=== PATIENT | male | born 1955 | race Caucasian/White ===

== ENCOUNTER 2019-07-17 13:20 | Outpatient (REF) | payer MEDICAID, SELFPAY ==
[2019-07-17 19:01] LABS: Mean Corp. HGB Concentration 34.1 g/dL (32.0-36.0); Mean Corpuscular Hemoglobin 31.3 pg (27.0-33.0); Mean Corpuscular Volume 91.7 fL (80-95); Mean Platelet Volume 12.1 fL (8.0-11.0); Platelet Count 198 x1000/uL (130-400); RBC 4.47 m/cumm (4.50-6.00); RBC Distribution Width 13.8 % (11.8-14.1); White Blood Cell Count 6.49 k/cumm (4.4-10.8)
[2019-07-17 19:01] LABS: COMMENT (LAB VIEW ONLY) 101.12 mg/dL; COMMENT (LAB VIEW ONLY) 104.08 mg/dL; Microalb ug/mg Crea 5.6 ug/mg Cr; Prot/Crea Ur Ratio 0.05
[2019-07-17 19:18] LABS: Anion Gap 8.7 mmol/L (3-11); BUN 15 mg/dL (7-18); CO2 29.3 mmol/L (21.0-32.0); CREATININE 1.16 mg/dL (0.70-1.30); Chloride 104 mmol/L (98-107); Glucose 103 mg/dL (74-106); Magnesium 1.7 mg/dL (1.8-2.4); NT-proBNP 1688 pg/mL (<300); Potassium 4.1 mmol/L (3.5-5.1); Sodium 142 mmol/L (136-145)
== END 2019-07-17 13:40 ==
LOC: NCHCN 13:20
PROVIDERS: PCP Nurse Practitioner Family; Visit Provider Nurse Practitioner Family
DX: E11.9 Type 2 diabetes mellitus without complications (principal); I10 Essential (primary) hypertension
CPT/HCPCS: 80048; 85027; 82043; 82565; 82570; 83735; 83880; 84156

== ENCOUNTER 2019-07-21 19:12 | Outpatient (REF) | payer MEDICAID, SELFPAY ==
[2019-07-21 19:11] LABS: Anion Gap 7.6 mmol/L (3-11); BUN 18 mg/dL (7-18); CO2 28.4 mmol/L (21.0-32.0); CREATININE 1.09 mg/dL (0.70-1.30); Calcium 8.3 mg/dL (8.5-10.1); Chloride 101 mmol/L (98-107); Glucose 136 mg/dL (74-106); Potassium 4.4 mmol/L (3.5-5.1); Sodium 137 mmol/L (136-145)
== END 2019-07-21 19:32 ==
LOC: NCHCN 19:12
PROVIDERS: PCP Nurse Practitioner Family; Visit Provider Nurse Practitioner Family
DX: I10 Essential (primary) hypertension (principal)
CPT/HCPCS: 80048

== ENCOUNTER 2019-08-23 10:46 | Inpatient (IN) | payer MEDICAID, SELFPAY ==
[2019-08-23] VITALS (43 sets, daily range): BP systolic 121–166; BP diastolic 63–118; PULSE 68–85; RESP 4–28; TEMP 35.8–37.6; O2SAT 90–100
--- NOTE | 2019-08-23 11:00 | DI.RAD_ITS ---
EXAM: XR PORTABLE CHEST AP INDICATION: SOB, cough, CHF. COMPARISON: No exams were available for comparison TECHNIQUE: 2D digital imaging was performed. FINDINGS: The heart is enlarged. The lung bases are not well penetrated, particularly the left. Leads overlie the chest. Oxygen tubing is seen. The appear grossly clear. No infiltrate, effusion or pulmonary edema. IMPRESSION: Cardiomegaly. There is limited visualization of the left lower lobe. There is no evidence of CHF. DATA REPOSITORY: RADIATION DOSE DELIVERED:
[2019-08-23] MEDS: Furosemide 20 MG/2 ML VIAL IVP (11:10)
[2019-08-23] MEDS: methylPREDNISolone SUCC 125 MG VIAL IVP (11:15)
[2019-08-23 11:27] LABS: Abs Immature Grans 0.01 k/cumm (0.0-0.09); HCT 45.6 % (40.0-50.0); HGB 15.7 g/dL (13.5-17.5); Mean Corp. HGB Concentration 34.4 g/dL (32.0-36.0); Mean Corpuscular Hemoglobin 31.2 pg (27.0-33.0); Mean Corpuscular Volume 90.7 fL (80-95); Mean Platelet Volume 11.1 fL (8.0-11.0); Platelet Count 175 x1000/uL (130-400); RBC 5.03 m/cumm (4.50-6.00); RBC Distribution Width 12.9 % (11.8-14.1); White Blood Cell Count 5.24 k/cumm (4.4-10.8)
[2019-08-23] MEDS: Albuterol/Ipratropium 3 ML UPD VIAL 9 ML UPD (11:28)
[2019-08-23 11:41] LABS: Absolute Basophil Count 0.05 k/cumm (0.0-0.2); Absolute Eosinophil Count 0.37 k/cumm (0.0-0.7); Absolute Lymphocyte Count 1.21 k/cumm (1.2-3.4); Absolute Monocyte Count 0.58 k/cumm (0.11-0.7); Absolute Neutrophil Count 3.04 k/cumm (1.2-6.7); Atypical Lymphocytes % 6; PTT Activated 28.1 sec (21.0-31.4); Prothrombin Time 10.3 sec (9.3-11.0)
[2019-08-23 11:42] LABS: Diff Comment Manual Differential; RBC Morphology Normal
--- NOTE | 2019-08-23 11:44 | W.ED.GENAD ---
Discharge Plan Disposition Patient Disposition: [facility] INPATIENT Condition: Improving Discharge Details Chief Complaint: SOB Clinical Impression: CHF exacerbation, Asthma exacerbation in COPD, Acute dyspnea Primary Care Provider: Sae Ryan ED Provider: Liborio Perez Home Meds and New Rx's Prescriptions: No Action pioglitazone 15 mg Tablet 15 mg PO DAILY RF: 0 carvedilol 25 mg Tablet 25 mg PO BID RF: 0 gabapentin 600 mg Tablet 1,200 mg PO TID RF: 0 azithromycin 250 mg Tablet 250 mg PO DAILY RF: 0 glipizide 10 mg Tablet Extended Release 24hr 20 mg PO DAILY RF: 0 olanzapine 10 mg Tablet 15 mg PO QHS RF: 0 triamcinolone acetonide 0.1 % Cream 1 applic TOPICAL TID PRNRF: 0 simvastatin 40 mg Tablet 40 mg PO DAILY RF: 0 indomethacin 50 mg Capsule 50 mg PO BID RF: 0 nitroglycerin [Nitrostat] 0.4 mg Tablet, Sublingual 0.4 mg SUBLINGUAL Q5M PRNRF: 0 betamethasone dipropionate 0.05 % Cream 1 applic TOPICAL DAILY PRNRF: 0 furosemide 20 mg Tablet 20 mg PO DAILY RF: 0 albuterol sulfate [ProAir HFA] 90 mcg/actuation Hfa Aerosol Inhaler 2 puff INHALATION QID PRNRF: 0 ketoconazole 2 % Cream 1 applic TOPICAL BID RF: 0 amoxicillin-pot clavulanate 875-125 mg Tablet 1 tab PO BID RF: 0 Narcan 4 mg/actuation [place],Non-Aerosol 4 mg INTRANASAL Q2-3M PRNRF: 0 Medical Decision Making This is a 63-year-old male who is a notably poor historian with a past medical history of congestive heart failure, high cholesterol, diabetes, who denies any history of COPD or heart attack. Who presents today for evaluation of shortness of breath. No additional previous medical records are currently available at this time on the patient. Patient states that 1 week ago he had a cough mild shortness of breath, he was started on an antibiotic by his PCP Sae Ryan. Since then he states that he has been doing worse, he has had occasional fever and chills. He denies vomiting diarrhea chest pain numbness tingling or weakness. He does feel notably short of breath. He is not normally on oxygen. He presents today with notable shortness of breath, oxygen in the high 80s to low 90s. He does state that he has congestive heart failure and states that this feels similar to this. Patient otherwise has no additional components to add to the HPI. Exam demonstrates wheezes, in conjunction with mild crackles. Bedside ultrasound demonstrates a notably reduced ejection fraction, roughly estimated at around 25 to 35%, trace pericardial effusion is present, no evidence of tamponade. B-lines are present in the bases. Differential is highest for CHF exacerbation, we will gently diurese, start the patient on BiPAP due to his low oxygenation, and work of breathing. Will evaluate for additional cardiac or infectious etiology and reassess. 12:08 PM We have received records from outpatient clinic, patient was given Augmentin and azithromycin at that time which she has been taking. He has had no significant improvement. 1 PM Formal x-ray results from radiology demonstrate no evidence of infiltrate or edema, however with the ultrasound findings, my interpretation I do feel that there is mild interstitial congestion, especially with the patient's associated symptomatology. After trial of BiPAP the patient had a notable improvement, we are now weaning him down back to nasal cannula. Breathing treatments were given which also significantly helped his symptoms. Lasix was given for mild diuresis. This time I feel the patient signs and symptoms are clinically consistent with mild CHF exacerbation, in conjunction with mild COPD. I do feel the patient stable for admission to the floor. 1:30 PM Discussed the case with the hospitalist , he agrees with the assessment and plan. I have extensively reviewed the treatment plan with the patient. I have addressed all patient concerns at this time. I have also discussed the plan with the admitting physician and they agree with the current assessment and plan and have agreed to assume responsibility for the patient. All parties demonstrate verbal understanding and agreement with our assessment and plan at this time. EKG 10: 58 Rate 74, intervals normal, except for slightly prolonged AR 214, sinus rhythm, no significant ST elevations or depressions, no evidence of STEMI. IMPRESSION: Cardiomegaly. There is limited visualization of the left lower lobe. There is no evidence of CHF. HPI General Date/Time Provider Initiated Documentation: 08/23/19 10:48. HPI Narrative: This is a 63-year-old male who is a notably poor historian with a past medical history of congestive heart failure, high cholesterol, diabetes, who denies any history of COPD or heart attack. Who presents today for evaluation of shortness of breath. No additional previous medical records are currently available at this time on the patient. Patient states that 1 week ago he had a cough mild shortness of breath, he was started on an antibiotic by his PCP Sae Ryan. Since then he states that he has been doing worse, he has had occasional fever and chills. He denies vomiting diarrhea chest pain numbness tingling or weakness. He does feel notably short of breath. He is not normally on oxygen. He presents today with notable shortness of breath, oxygen in the high 80s to low 90s. He does state that he has congestive heart failure and states that this feels similar to this. Patient otherwise has no additional components to add to the HPI. Related Data Home Medications Medication Instructions Recorded Confirmed albuterol sulfate [ProAir HFA] 2 puff INHALATION QID PRN 08/23/19 08/23/19 amoxicillin-pot clavulanate 1 tab PO BID 08/23/19 08/23/19 azithromycin 250 mg PO DAILY 08/23/19 08/23/19 betamethasone dipropionate 1 applic TOPICAL DAILY PRN 08/23/19 08/23/19 carvedilol 25 mg PO BID 08/23/19 08/23/19 furosemide 20 mg PO DAILY 08/23/19 08/23/19 gabapentin 1,200 mg PO TID 08/23/19 08/23/19 glipizide 20 mg PO DAILY 08/23/19 08/23/19 indomethacin 50 mg PO BID 08/23/19 08/23/19 ketoconazole 1 applic TOPICAL BID 08/23/19 08/23/19 naloxone [Narcan] 4 mg INTRANASAL Q2-3M PRN 08/23/19 08/23/19 nitroglycerin [Nitrostat] 0.4 mg SUBLINGUAL Q5M PRN 08/23/19 08/23/19 olanzapine 15 mg PO QHS 08/23/19 08/23/19 pioglitazone 15 mg PO DAILY 08/23/19 08/23/19 simvastatin 40 mg PO DAILY 08/23/19 08/23/19 triamcinolone acetonide 1 applic TOPICAL TID PRN 08/23/19 08/23/19 Allergies Allergy/AdvReac Type Severity Reaction Status Date / Time No Known Allergies Allergy Unverified 02/26/20 11:03 General Stated Complaint: SOB [place]: 2 Review of Systems All systems reviewed & are unremarkable except as noted in HPI and below PFSH Social History Smoking/Tobacco Use Status: Never Alcohol Intake: never Drug use: Never Substance use type: does not use Do you feel safe at home: Yes Do you feel safe in your relationship?: Yes Exam Narrative Exam Narrative: 1.Const: Well-nourished, Well-developed, appearing stated age 2.Eyes: PERRL, no conjunctival injection, and symmetrical lids. 3.ENT: Atraumatic external nose and ears. Moist MM. Neck: Symmetric, trachea midline, No thyromegaly. 4.CVS: +S1/S2, No murmurs or gallops. Peripheral pulses 2+ and equal in all extremities. Brisk capillary refill in all extremities. 5.RESP: Labored respiratory rate, coarse breath sounds throughout, mild wheezes in the bases. Mild rhonchi. Minimal crackles in the bases. 6.GI: Soft, Nontender/Nondistended, No hepatosplenomegaly. No guarding or rebound. 7.MSK: Normocephalic/Atraumatic, Extremities w/o deformity or ttp No cyanosis or clubbing, Normal movement of all extremities, no significant pitting edema in the lower extremities. No calf tenderness. 8.Skin: Warm, Dry. No rashes or lesions. 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 Sensation grossly intact, no focal neurologic deficits. 10.Psych: (AAO) x3. Appropriate mood and affect Course Vital Signs Vital signs: Vital Signs Temperature 36.8 C 08/23/19 10:58 Pulse 74 08/23/19 10:58 Respiratory Rate 28 H 08/23/19 10:58 Blood Pressure 121/63 08/23/19 10:58 Pulse Oximetry 90 L 08/23/19 10:58 Temperature 36.8 C 08/23/19 10:58 Temperature Source Oral 08/23/19 10:58 Pulse 71 08/23/19 11:42 Pulse 71 08/23/19 11:40 Respiratory Rate 25 H 08/23/19 11:42 Respiratory Effort Labored 08/23/19 11:39 Blood Pressure 166/97 H 08/23/19 11:30 Blood Pressure Mean 112 08/23/19 11:30 Blood Pressure Position Sitting 08/23/19 10:58 Pulse Oximetry 99 08/23/19 11:42 Oxygen Delivery Method Bi-pap 08/23/19 11:28 Oxygen Flow Rate 0 08/23/19 10:58 Fraction of Inspired Oxygen (FIO2) 30 08/23/19 11:42 Pain Level 0 08/23/19 10:58 Lab/Test Results Lab/Test Results: 08/23/19 11:29 Nasopharynx Influenza Types A,B Antigen - Pending 08/23/19 11:10 Blood Blood Culture - Pending 08/23/19 11:10 Blood Blood Culture - Pending Laboratory Tests Range/Units 08/23/19 11:10 WBC (4.4-10.8) k/cumm 5.24 RBC (4.50-6.00) m/cumm 5.03 Hgb (13.5-17.5) g/dL 15.7 Hct (40.0-50.0) % 45.6 MCV (80-95) fL 90.7 MCH (27.0-33.0) pg 31.2 MCHC (32.0-36.0) g/dL 34.4 RDW (11.8-14.1) % 12.9 Plt Count (130-400) x1000/uL 175 MPV (8.0-11.0) fL 11.1 H Immature Gran % % 0.0 Neutrophils % 58.0 Lymphocytes % 17.0 Atypical Lymphs % 6 Monocytes % 11.0 Eosinophils % 7.0 Basophils % 1.0 Absolute Neutrophils (1.2-6.7) k/cumm 3.04 Absolute Lymphocytes (1.2-3.4) k/cumm 1.21 Absolute Monocytes (0.11-0.7) k/cumm 0.58 Absolute Eosinophils (0.0-0.7) k/cumm 0.37 Absolute Basophils (0.0-0.2) k/cumm 0.05 Differential Comment Manual differential RBC Morphology Normal
[2019-08-23 11:52] LABS: ALT 30 U/L (16-63); AST 44 U/L (15-37); Albumin 4.4 g/dL (3.4-5.0); Alkaline Phosphatase 88 U/L (46-116); BUN 13 mg/dL (7-18); Bilirubin, Total 1.3 mg/dL (0.2-1.0); CREATININE 1.14 mg/dL (0.70-1.30); Calcium 9.1 mg/dL (8.5-10.1); Chloride 101 mmol/L (98-107); Glucose 123 mg/dL (74-106); NT-proBNP 3644 pg/mL (<300); Total Protein 8.2 g/dL (6.4-8.2)
[2019-08-23 11:59] LABS: Troponin I < 0.05 ng/Ml (<0.06)
[2019-08-23 12:04] LABS: Sodium 139 mmol/L (136-145)
[2019-08-23 14:27] LABS: Troponin I < 0.05 ng/Ml (<0.06)
--- NOTE | 2019-08-23 14:48 | HPE_ITS ---
Date of service: 08/23/19 Time of Service: 14:48 Assessment and Plan Assessment and plan (1) CHF exacerbation: Status: Acute Assessment and plan: admit to med/surg, on telemetry, has history of chf on lasix. last echo in january of 2017 shows ED of 30%, today POC echo in ED with estimated 25-35%, Will continue diureses with IV lasix. strict I&O, daily weight, recheck electrolytes and kidney functions in am, echo when available. will cycle serial troponins. He take coreg and lasix. he was previously on spironolactone but did not tolerate it d/t GI upset. will get cardiology consult. consider adding jaden I. (2) CAP (community acquired pneumonia): Status: Acute Assessment and plan: patient was started on zithromax and augmentin for empiric treatment for pneumonia, no evidence that respiratory symptoms are infectious, will hold antibiotics for now and continue to closely monitor respiratory status closely (3) Hypertension: Status: Chronic Assessment and plan: blood pressure controlled. will monitor and continue coreg. (4) High cholesterol: Status: Chronic Assessment and plan: continue statin, last LDL on record 61 while on statin therapy (5) Schizophrenia: Status: Chronic Assessment and plan: symptoms are stable on olanzapine, continue home medications. (6) Diabetes mellitus type 2 in obese: Status: Acute Assessment and plan: diabetic diet, continue home medications, check blood sugars ac/hs hold on sliding scale coverage as it can interact with pioglitazone and worsening fluid retention/symptoms of CHF. last A1C I can find was in 2019 at 8.2, will add to am labs. (7) DVT prophylaxis: Status: Acute Assessment and plan: enoxaparin daily (8) Discharge planning issues: Status: Acute Assessment and plan: patient hoping for discharge tomorrow. no services anticipated. History of Present Illness History of Present Illness Chief Complaint: shortness of breath Narrative: T his is a 63-year-old male who is a notably poor historian with a past medical history of congestive heart failure, high cholesterol, diabetes, who denies any history of COPD or heart attack. Who presents today for evaluation of shortness of breath. No additional previous medical records are currently available at this time on the patient. Patient states that 1 week ago he had a cough mild shortness of breath, he was started on an antibiotic by his PCP Sae Ryan. Since then he states that he has been doing worse, he has had occasional fever and chills. He denies vomiting diarrhea chest pain numbness tingling or weakness. He does feel notably short of breath. He is not normally on oxygen. He presents today with notable shortness of breath, oxygen in the high 80s to low 90s. He does state that he has congestive heart failure and states that this feels similar to this. Patient otherwise has no additional components to add to the HPI. Exam demonstrates wheezes, in conjunction with mild crackles. Bedside ultrasound demonstrates a notably reduced ejection fraction, roughly estimated at around 25 to 35%, trace pericardial effusion is present, no evidence of tamponade. B-lines are present in the bases. Differential is highest for CHF exacerbation, we will gently diurese, start the patient on BiPAP due to his low oxygenation, and work of breathing. Will evaluate for additional cardiac or infectious etiology and reassess. Review of Systems Constitutional Constitutional: Denies fever(s) ENT Ears, Nose, Mouth, and Throat: Denies vertigo and Denies dizziness Cardiovascular Cardiovascular: Denies chest pain, Denies syncope, Denies edema, Denies leg edema, Denies lightheadedness and Reports dyspnea Respiratory Respiratory: Denies cough, Reports dyspnea and Reports wheezing Gastrointestinal Gastrointestinal: Denies abdominal pain Musculoskeletal Musculoskeletal: Denies abnormal gait Neurologic Neurologic: Denies abnormal gait, Denies vertigo, Denies dizziness and Denies syncope Allergic/Immunologic Allergic/Immunologic: Reports wheezing [facility] Medical History (Updated 08/24/19 @ 11:26 by Dianne Pace NP) Depression (Chronic) Eczema (Acute) High cholesterol (Chronic) Panic attacks (Acute) Schizophrenia (Chronic) Surgical History (Updated 08/24/19 @ 11:26 by Dianne Pace NP) Hx of hernia repair (Chronic) Social History Smoking/Tobacco Use Status: Never Alcohol Intake: never Drug use: Never Substance use type: does not use Do you feel safe at home: Yes Do you feel safe in your relationship?: Yes Meds Home Medications and Allergies Home Medications Medication Instructions Recorded Confirmed Type albuterol sulfate [ProAir HFA] 2 puff INHALATION QID PRN 08/23/19 08/23/19 History amoxicillin-pot clavulanate 1 tab PO BID 08/23/19 08/23/19 History azithromycin 250 mg PO DAILY 08/23/19 08/23/19 History betamethasone dipropionate 1 applic TOPICAL DAILY PRN 08/23/19 08/23/19 History carvedilol 25 mg PO BID 08/23/19 08/23/19 History furosemide 20 mg PO DAILY 08/23/19 08/23/19 History gabapentin 1,200 mg PO TID 08/23/19 08/23/19 History glipizide 20 mg PO DAILY 08/23/19 08/23/19 History indomethacin 50 mg PO BID 08/23/19 08/23/19 History ketoconazole 1 applic TOPICAL BID 08/23/19 08/23/19 History naloxone [Narcan] 4 mg INTRANASAL Q2-3M PRN 08/23/19 08/23/19 History nitroglycerin [Nitrostat] 0.4 mg SUBLINGUAL Q5M PRN 08/23/19 08/23/19 History olanzapine 15 mg PO QHS 08/23/19 08/23/19 History pioglitazone 15 mg PO DAILY 08/23/19 08/23/19 History simvastatin 40 mg PO DAILY 08/23/19 08/23/19 History triamcinolone acetonide 1 applic TOPICAL TID PRN 08/23/19 08/23/19 History Allergies Allergy/AdvReac Type Severity Reaction Status Date / Time No Known Allergies Allergy Unverified 08/23/19 11:03 Exam Const General: cooperative, disheveled and ill appearing chronically Nutritional Appearance: obese Orientation: alert, awake and oriented x3 HENMT Head: normal to inspection, normocephalic and atraumatic Mouth: oral mucosae normal Resp Effort & Inspection: normal respiratory effort Auscultation: rales bilaterally at the base and wheezes scattered wheezes Cardio Rate: regular rate Rhythm: regular rhythm GI Inspection: normal to inspection Palpation: soft Auscultation: normal bowel sounds Skin General skin exam: no rashes or lesions noted Neuro General: alert, awake and oriented x3 Extrem General: normal to inspection, full ROM and no pedal edema Results Labs Result diagrams: 08/24/19 06:30 08/24/19 06:30 Labs: Laboratory Results - last 24 hr 08/23/19 08/23/19 08/23/19 11:10 11:10 11:10 WBC 5.24 RBC 5.03 Hgb 15.7 Hct 45.6 MCV 90.7 MCH 31.2 MCHC 34.4 RDW 12.9 Plt Count 175 MPV 11.1 H Immature Gran % 0.0 Neutrophils % 58.0 Lymphocytes % 17.0 Atypical Lymphs % 6 Monocytes % 11.0 Eosinophils % 7.0 Basophils % 1.0 Absolute Neutrophils 3.04 Absolute Lymphocytes 1.21 Absolute Monocytes 0.58 Absolute Eosinophils 0.37 Absolute Basophils 0.05 Differential Comment Manual differential RBC Morphology Normal PT 10.3 INR 1.0 APTT 28.1 Sodium 139 Potassium 4.4 Chloride 101 Carbon Dioxide 30.0 Anion Gap 8.0 BUN 13 Creatinine 1.14 Estimated GFR/1.73 m2 >= 60.00 Glucose 123 H Calcium 9.1 Total Bilirubin 1.3 H AST 44 H ALT 30 Alkaline Phosphatase 88 Troponin I < 0.05 NT-Pro-B Natriuret Pep 3644 H Total Protein 8.2 Albumin 4.4 08/23/19 14:00 WBC RBC Hgb Hct MCV MCH MCHC RDW Plt Count MPV Immature Gran % Neutrophils % Lymphocytes % Atypical Lymphs % Monocytes % Eosinophils % Basophils % Absolute Neutrophils Absolute Lymphocytes Absolute Monocytes Absolute Eosinophils Absolute Basophils Differential Comment RBC Morphology PT INR APTT Sodium Potassium Chloride Carbon Dioxide Anion Gap BUN Creatinine Estimated GFR/1.73 m2 Glucose Calcium Total Bilirubin AST ALT Alkaline Phosphatase Troponin I < 0.05 NT-Pro-B Natriuret Pep Total Protein Albumin Last Vital Signs Temp 37.6 C H 08/23/19 13:00 Pulse 70 08/23/19 14:01 Resp 21 08/23/19 14:01 BP 148/76 H 08/23/19 14:01 Pulse Ox 97 08/23/19 14:01
[2019-08-23] MEDS: Enoxaparin 40 MG/0.4 ML SYR SC (15:39)
[2019-08-23 16:44] LABS: Troponin I < 0.05 ng/Ml (<0.06)
[2019-08-23] MEDS: Furosemide 40 MG/4 ML VIAL IVP (17:01)
[2019-08-23] MEDS: Gabapentin 600 MG TAB 1200 MG PO (19:46)
[2019-08-23] MEDS: Indomethacin 25 MG CAP 50 MG PO (19:46)
[2019-08-23] MEDS: Carvedilol 25 MG TAB PO (19:46)
[2019-08-23 20:49] LABS: Troponin I < 0.05 ng/Ml (<0.06)
[2019-08-24] VITALS (9 sets, daily range): BP systolic 110–153; BP diastolic 69–96; PULSE 64–85; RESP 12–28; TEMP 36.5–37.5; O2SAT 89–95
[2019-08-24 07:09] LABS: HCT 42.9 % (40.0-50.0); HGB 14.7 g/dL (13.5-17.5); Mean Corp. HGB Concentration 34.3 g/dL (32.0-36.0); Mean Corpuscular Hemoglobin 30.6 pg (27.0-33.0); Mean Corpuscular Volume 89.2 fL (80-95); Mean Platelet Volume 11.4 fL (8.0-11.0); Platelet Count 187 x1000/uL (130-400); RBC 4.81 m/cumm (4.50-6.00); RBC Distribution Width 12.6 % (11.8-14.1); White Blood Cell Count 4.83 k/cumm (4.4-10.8)
[2019-08-24 07:15] LABS: ALT 28 U/L (16-63); AST 34 U/L (15-37); Albumin 3.6 g/dL (3.4-5.0); Alkaline Phosphatase 77 U/L (46-116); Anion Gap 11.5 mmol/L (3-11); BUN 28 mg/dL (7-18); Bilirubin, Total 0.8 mg/dL (0.2-1.0); CO2 24.5 mmol/L (21.0-32.0); CREATININE 1.25 mg/dL (0.70-1.30); Calcium 9.1 mg/dL (8.5-10.1); Chloride 100 mmol/L (98-107); Estimated GFR 58.15 (mL/min/1.73m2); Glucose 256 mg/dL (74-106); Potassium 4.1 mmol/L (3.5-5.1); Sodium 136 mmol/L (136-145); Total Protein 7.5 g/dL (6.4-8.2)
[2019-08-24] MEDS: Carvedilol 25 MG TAB PO ×2 (09:18→20:13)
[2019-08-24] MEDS: Simvastatin 40 MG TAB PO (09:18)
[2019-08-24] MEDS: Gabapentin 600 MG TAB 1200 MG PO ×3 (09:18→20:12)
[2019-08-24] MEDS: Indomethacin 25 MG CAP 50 MG PO ×2 (09:18→20:14)
[2019-08-24] MEDS: Normal Saline Flush 10 ML SYR IVP (09:18)
[2019-08-24] MEDS: Furosemide 40 MG/4 ML VIAL IVP (09:18)
--- NOTE | 2019-08-24 12:18 | W.PM.PROGNOT ---
Date of Service Date of service: 08/24/19 Time of Service: 12:18 Assessment and Plan Assessment and plan (1) CHF exacerbation: Status: Acute Assessment and plan: improved with diuresis. last echo in january of 2017 shows ED of 30%, POC echo in ED with estimated 25-35%, Will continue diureses with IV lasix. strict I&O, daily weight, recheck electrolytes and kidney functions in am, echo tomorrow when available. serial troponins negative. He take coreg and lasix. he was previously on spironolactone but did not tolerate it d/t GI upset. Case discussed with Dr Gonzalez who recommends increasing lasix to 40 mg daily at discharge and adding jaden I. will add lisinopril 5 mg daily at her recommendations (2) Diabetes mellitus type 2 in obese: Status: Acute Assessment and plan: continue low sodium diabetic diet, continue home medications, check blood sugars ac/hs, will add sliding scale insulin. last A1C I can find was in 2019 at 8.2, today 6.6. consider stopping pioglitazone, will hold while hospitalized. (3) Schizophrenia: Status: Chronic Assessment and plan: stable on hold olanzapine (4) High cholesterol: Status: Chronic Assessment and plan: LDL 106, last LDL on record 61 while on statin therapy (5) Hypertension: Status: Chronic (6) DVT prophylaxis: Status: Acute (7) Discharge planning issues: Status: Acute Subjective Subjective Patient reports: no new complaints and feels better Interval history since last seen: has been weaned of oxygen and was able to maintain sats at 89 or above with walk test with respiratory. he has been voiding but no accurate measure of output. states his breathing is improved. no cough. no fevers. no further wheezing Exam Const General: cooperative, no acute distress, anxious, disheveled and ill appearing (older than stated age) chronically Nutritional Appearance: obese Orientation: alert, awake and oriented x3 HENMT Head: normal to inspection, normocephalic and atraumatic Resp Effort & Inspection: normal respiratory effort Auscultation: rales bilaterally at the base and no wheezes Cardio Rate: regular rate Rhythm: regular rhythm GI Inspection: obesity Palpation: soft Auscultation: normal bowel sounds Skin General skin exam: no rashes or lesions noted Neuro General: alert, awake and oriented x3 Extrem General: normal to inspection, full ROM and no pedal edema Psych Appearance: disheveled Mood: paranoid Affect: blunted Attitude: avoids eye contact Objective Objective Clinical Data: Abnormal lab results 08/24/19 08/24/19 Range/Units 06:30 06:30 MPV 11.4 H (8.0-11.0) fL Anion Gap 11.5 H (3-11) mmol/L BUN 28 H D (7-18) mg/dL Glucose 256 H D (74-106) mg/dL Vital Signs Temperature 36.7 C 08/24/19 11:38 Temperature Source Tympanic 08/24/19 11:38 Pulse 72 08/24/19 11:38 Pulse Rhythm Regular 08/24/19 03:06 Pulse 72 08/23/19 14:01 Respiratory Rate 20 08/24/19 11:38 Respiratory Effort 08/24/19 03:06 Respiratory Depth Normal 08/24/19 03:06 Respiratory Pattern Normal 08/24/19 03:06 Blood Pressure 131/69 08/24/19 11:38 Blood Pressure Mean 91 08/23/19 14:01 Blood Pressure Position Sitting 08/23/19 10:58 Pulse Oximetry 93 L 08/24/19 11:38 Oxygen Delivery Method Room Air 08/24/19 11:38 Oxygen Flow Rate 0 08/24/19 11:38 Fraction of Inspired Oxygen (FIO2) 30 08/23/19 22:10 Pain Level 0 08/24/19 11:38 Comment 08/23/19 14:40 Intake & Output 08/23/19 08/24/19 08/24/19 23:59 11:59 23:59 Intake Total 480 / 480 360 / 360 Output Total 300 / 300 Balance 180 / 180 360 / 360 Weight 118.6 kg Intake: Oral 480 / 480 360 / 360 Output: Urine 300 / 300 Other: Urine Color Yellow Yellow Urine Appearance Clear Clear Urine Odor None None Comment independant, not seen or measured Voiding Methods Toilet Toilet Laboratory Results WBC 4.83 k/cumm (4.4-10.8) 08/24/19 06:30 RBC 4.81 m/cumm (4.50-6.00) 08/24/19 06:30 Hgb 14.7 g/dL (13.5-17.5) 08/24/19 06:30 Hct 42.9 % (40.0-50.0) 08/24/19 06:30 MCV 89.2 fL (80-95) 08/24/19 06:30 MCH 30.6 pg (27.0-33.0) 08/24/19 06:30 MCHC 34.3 g/dL (32.0-36.0) 08/24/19 06:30 RDW 12.6 % (11.8-14.1) 08/24/19 06:30 Plt Count 187 x1000/uL (130-400) 08/24/19 06:30 MPV 11.4 fL (8.0-11.0) H 08/24/19 06:30 Immature Gran % 0.0 % 08/23/19 11:10 Neutrophils % 58.0 08/23/19 11:10 Lymphocytes % 17.0 08/23/19 11:10 Atypical Lymphs % 6 08/23/19 11:10 Monocytes % 11.0 08/23/19 11:10 Eosinophils % 7.0 08/23/19 11:10 Basophils % 1.0 08/23/19 11:10 Absolute Neutrophils 3.04 k/cumm (1.2-6.7) 08/23/19 11:10 Absolute Lymphocytes 1.21 k/cumm (1.2-3.4) 08/23/19 11:10 Absolute Monocytes 0.58 k/cumm (0.11-0.7) 08/23/19 11:10 Absolute Eosinophils 0.37 k/cumm (0.0-0.7) 08/23/19 11:10 Absolute Basophils 0.05 k/cumm (0.0-0.2) 08/23/19 11:10 Differential Comment Manual differential 08/23/19 11:10 RBC Morphology Normal 08/23/19 11:10 PT 10.3 sec (9.3-11.0) 08/23/19 11:10 INR 1.0 (0.9-1.1) 08/23/19 11:10 APTT 28.1 sec (21.0-31.4) 08/23/19 11:10 Sodium 136 mmol/L (136-145) 08/24/19 06:30 Potassium 4.1 mmol/L (3.5-5.1) 08/24/19 06:30 Chloride 100 mmol/L (98-107) 08/24/19 06:30 Carbon Dioxide 24.5 mmol/L (21.0-32.0) 08/24/19 06:30 Anion Gap 11.5 mmol/L (3-11) H 08/24/19 06:30 BUN 28 mg/dL (7-18) H D 08/24/19 06:30 Creatinine 1.25 mg/dL (0.70-1.30) 08/24/19 06:30 Estimated GFR/1.73 m2 58.15 (mL/min/1.73m2) 08/24/19 06:30 Glucose 256 mg/dL (74-106) H D 08/24/19 06:30 Calcium 9.1 mg/dL (8.5-10.1) 08/24/19 06:30 Total Bilirubin 0.8 mg/dL (0.2-1.0) 08/24/19 06:30 AST 34 U/L (15-37) 08/24/19 06:30 ALT 28 U/L (16-63) 08/24/19 06:30 Alkaline Phosphatase 77 U/L (46-116) 08/24/19 06:30 Troponin I < 0.05 ng/Ml (<0.06) 08/23/19 20:25 NT-Pro-B Natriuret Pep 3644 pg/mL (<300) H 08/23/19 11:10 Total Protein 7.5 g/dL (6.4-8.2) 08/24/19 06:30 Albumin 3.6 g/dL (3.4-5.0) 08/24/19 06:30
[2019-08-24 12:25] LABS: Calculated LDL 106 mg/dL (<100); Cholesterol 167 mg/dL (<200); HDL Cholesterol 40 mg/dL (40-60); Triglyceride 107 mg/dL (<150)
[2019-08-24 13:53] LABS: Hemoglobin A1C 6.6 % (3.8-5.6)
--- NOTE | 2019-08-24 14:49 | W.NUTCONSULT ---
Date of service: 08/24/19 Time of Service: 14:49 Nutritional Consult ASSESSMENT: 63 year old male admitted with CHF, PNA, hyperlipidemia. PMH: Schizo disoder, Dm2. BMI indicates morbid obesity. Nutrition Consult received for education for weight management and low sodium diet/DASH diet. At nutritional risk in view of diabetes, obesity and multiple comorbidities, would benefit from outpatient services provided by [facility]. NUTRITIONAL DIAGNOSIS: morbid obesity excessive energy intake, poor food choices Lack of food and nutrition knowledge INTERVENTION: provided education on Low Sodium Nutrition Therapy (nutrition care manual) referred to [facility] for Healthy Living and WRAP program MONITORING AND EVALUATION: weight, labs, po intake Time Spent in Nutritional Counseling and Treatment: 15 min spent face to face
--- NOTE | 2019-08-24 16:55 | PDOC.CMIN ---
- If Service Date Differs Date of service: 08/24/19 Time of Service: 16:56 Care Management Initial Assess REASON FOR HOSPITALIZATION:: CHF Exacerbation PAST MEDICAL HISTORY/PAST SURGICAL HISTORY:: Medical History (Updated 08/24/19 @ 11:26 by Dianne Pace NP). Depression (Chronic). Eczema (Acute). High cholesterol (Chronic). Panic attacks (Acute). Schizophrenia (Chronic). Surgical History (Updated 08/24/19 @ 11:26 by Dianne Pace NP). Hx of hernia repair (Chronic) PREVIOUS FUNCTIONAL STATUS/SOCIAL/FAMILY SUPPORTS:: Miguel lives alone in an apartment in [facility]. He is not currently employed. Miguel stated that his strongest support is the staff at [facility], particularly his Tableau Architect Ivanna Gordon. CURRENT FUNCTIONAL STATUS:: Miguel was sitting up in a chair when CM met with him. He was polite and open to conversation. Miguel shared that his only form of transportation is walking. He stated that he used to usr RCT but was no longer eligible. He did say that his transplant case manager is working on getting it re-instated. ADVANCE DIRECTIVES:: none on file Has patient been provided with information about the portal?: No Did the patient sign up for the portal?: No CODE STATUS:: Full Code INSURANCE COVERAGE / FINANCIAL ISSUES:: Medicaid CURRENT HOME/COMMUNITY SERVICES/EQUIPMENT:: Miguel is a [employer] client PRIMARY CARE PHYSICIAN:: Sae Ryan POTENTIAL DISCHARGE NEEDS:: Follow up with PCP and discharge plan of care PATIENT/FAMILY EDUCATION NEEDS:: Discharge plan, limitations, follow up plan, Ask Me Three. TRANSPORTATION:: Miguel will likely be transported by [facility] staff in their private vehicle. PLAN:: Miguel will return home with no additional services. He will follow up with his PCP and discharge plan of care and resume mental health services through [facility]. CM will continue to support Miguel and his discharge planning needs.
[2019-08-24] MEDS: Insulin Aspart 300 UNITS/3 ML PEN SC (17:59)
[2019-08-25] VITALS (9 sets, daily range): BP systolic 115–143; BP diastolic 73–87; PULSE 62–78; RESP 16–32; TEMP 36–36.7; O2SAT 92–96
[2019-08-25] MEDS: Furosemide 40 MG/4 ML VIAL IVP (09:06)
[2019-08-25] MEDS: Normal Saline Flush 10 ML SYR IVP ×2 (09:06→14:28)
[2019-08-25] MEDS: Carvedilol 25 MG TAB PO (09:09)
[2019-08-25] MEDS: Indomethacin 25 MG CAP 50 MG PO (09:09)
[2019-08-25] MEDS: Simvastatin 40 MG TAB PO (09:09)
[2019-08-25] MEDS: Gabapentin 600 MG TAB 1200 MG PO ×2 (09:09→14:28)
[2019-08-25] MEDS: Lisinopril 5 MG TAB PO (09:09)
[2019-08-25] MEDS: hydrOXYzine HCL 50 MG TAB PO (11:02)
[2019-08-25] MEDS: Insulin Aspart 300 UNITS/3 ML PEN SC (12:53)
--- NOTE | 2019-08-25 14:55 | W.PM.DS.N ---
Date of service: 08/25/19 Time of Service: 14:56 DS: Diagnosis Discharge Diagnosis (1) CHF exacerbation: Start date: 08/25/19 Start time: 14:56 Status: Resolved Asessment and Plan: Increased lasix to 40 mg po daily. Started lisinopril 5 mg per cardiology recommendation. Echo with EF 45%, diffuse hypokinesis, Left atrium normal size, no valvular abnormalities, (2) Diabetes mellitus type 2 in obese: Start date: 08/25/19 Start time: 14:57 Status: Acute Asessment and Plan: Continue to follow low carb diet and continue glucotrol (3) Schizophrenia: Start date: 08/25/19 Start time: 14:58 Status: Chronic Asessment and Plan: Continue zyprexa and weekly visits with counseler. (4) High cholesterol: Start date: 08/25/19 Start time: 15:00 Status: Chronic Asessment and Plan: Continue statin (5) Hypertension: Start date: 08/25/19 Start time: 15:00 Status: Chronic Asessment and Plan: Lisinopril added, continue indocin (6) DVT prophylaxis: Status: Acute (7) Discharge planning issues: Status: Acute Discharge Plan Disposition Patient Disposition: HOME Condition: Improving Discharge Details Chief Complaint: SOB Clinical Impression: CHF exacerbation, Asthma exacerbation in COPD, Acute dyspnea Reason For Visit: CHF COPD Admit Date/Time: 08/23/19 13:24 Admit Provider: Hugo Santiago Attending Provider: Hugo Santiago Primary Care Provider: Sae Ryan ED Provider: Liborio Perez Hospital Course Hospital Course: 63 y.o male with PMH of CHF, COPD, DM, admitted from [facility] ED for SOB. On admission he was SOB with oxygen level in high 80-low 90's. He was started on bipap upon admission, with bedside echo Bedside ultrasound demonstrates a notably reduced ejection fraction, roughly estimated at around 25 to 35%, trace pericardial effusion is present, no evidence of tamponade. B-lines are present in the bases. He was admitted for CHF, cxr revealing only cardiomegaly. During course of hospitalization patient was diuresed with IVP lasix, cardiology consulted. Recommend increasing po dosage of lasix to 40 mg daily with addition of lisinopril 5 mg. Echo revealing mild concentric left vent. hypertrophy, EF 45%, with diffuse hypokinesis. Left atrium normal size no valvular abnormalities. Exercise oximetry 94-96% while ambulating. Edema improved, breathing improved, patient is feeling better and ready to go home. He will be discharged home on lisionpril and lasix increase. Follow up with Cardiology in 1 week. Follow up with PCP in 1 week. Consider holding piogliatzone A1c 6.6 will defer to PCP for decision. He denies CP, SOB N/V/D. Home Meds and New Rx's Prescriptions: New furosemide 40 mg Tablet 40 mg PO DAILY Qty: 20 RF: 0 lisinopril 5 mg Tablet 5 mg PO DAILY Qty: 15 RF: 0 Continued pioglitazone 15 mg Tablet 15 mg PO DAILY RF: 0 carvedilol 25 mg Tablet 25 mg PO BID RF: 0 gabapentin 600 mg Tablet 1,200 mg PO TID RF: 0 glipizide 10 mg Tablet Extended Release 24hr 20 mg PO DAILY RF: 0 olanzapine 10 mg Tablet 15 mg PO QHS RF: 0 triamcinolone acetonide 0.1 % Cream 1 applic TOPICAL TID PRNRF: 0 simvastatin 40 mg Tablet 40 mg PO DAILY RF: 0 indomethacin 50 mg Capsule 50 mg PO BID RF: 0 nitroglycerin [Nitrostat] 0.4 mg Tablet, Sublingual 0.4 mg SUBLINGUAL Q5M PRNRF: 0 betamethasone dipropionate 0.05 % Cream 1 applic TOPICAL DAILY PRNRF: 0 albuterol sulfate [ProAir HFA] 90 mcg/actuation Hfa Aerosol Inhaler 2 puff INHALATION QID PRNRF: 0 ketoconazole 2 % Cream 1 applic TOPICAL BID RF: 0 Narcan 4 mg/actuation [place],Non-Aerosol 4 mg INTRANASAL Q2-3M PRNRF: 0 Discontinued azithromycin 250 mg Tablet 250 mg PO DAILY RF: 0 furosemide 20 mg Tablet 20 mg PO DAILY RF: 0 amoxicillin-pot clavulanate 875-125 mg Tablet 1 tab PO BID RF: 0 Discharge Instructions Instructions: Heart Failure (DC), Diabetes Mellitus Type 2 in Adults (DC), COPD (Chronic Obstructive Pulmonary Disease) (DC), Anxiety (DC) Additional Instructions: Follow up with Cardiology in 1 week Follow up with your PCP in 1 week Talk to your PCP about pioglitazone, your A1c was 6.6 Take lisinopril 5 mg daily Take 40 mg of lasix daily. Stand Alone Forms: Nursing Discharge Form Referrals: Sae Ryan NP [Primary Care Provider] - 09/01/19 11:15 am Galo Cordero MD [MD CONSULTING PHYSICIAN] - 09/22/19 11:20 am (CARDIOLOGY) Activity:: Activity as Tolerated Equipment/Supplies:: No Equipment Needed Diet:: Carb Counting Discharge Orders Discharge Orders: Discharge Order (Routine); Ordered 08/25/19 Ordered By: Adrienne Parker DS: Summary Status at Discharge Functional status at discharge: independent ambulation Overall status at discharge: patient is back to baseline Mental Status: mental status grossly normal Speech and Movement: speech and movement normal Mood: paranoid Affect: blunted Exam Const General: cooperative, no acute distress, anxious, disheveled and ill appearing (older than stated age) chronically Nutritional Appearance: obese Orientation: alert, awake and oriented x3 HENMT Head: normal to inspection, normocephalic and atraumatic Mouth: oral mucosae normal Resp Effort & Inspection: normal respiratory effort Auscultation: rales bilaterally at the base and no wheezes Cardio Rate: regular rate Rhythm: regular rhythm GI Inspection: normal to inspection and obesity Palpation: soft Auscultation: normal bowel sounds Skin General skin exam: no rashes or lesions noted Neuro General: alert, awake and oriented x3 Extrem General: normal to inspection, full ROM and no pedal edema Psych Appearance: disheveled Mental Status: mental status grossly normal Speech and Movement: speech and movement normal Mood: paranoid Affect: blunted Attitude: avoids eye contact DS: Data Vitals/I&O Vitals and I&O: Vital Signs Temperature 36.2 C L 08/25/19 12:40 Temperature Source Tympanic 08/25/19 12:40 Pulse 65 08/25/19 12:40 Pulse Rhythm Regular 08/25/19 09:20 Pulse 72 08/23/19 14:01 Respiratory Rate 18 08/25/19 12:40 Respiratory Effort 08/25/19 09:20 Respiratory Depth Normal 08/25/19 09:20 Respiratory Pattern Normal 08/25/19 09:20 Blood Pressure 122/78 08/25/19 12:40 Blood Pressure Mean 91 08/23/19 14:01 Blood Pressure Position Sitting 08/23/19 10:58 Pulse Oximetry 93 L 08/25/19 12:40 Oxygen Delivery Method Room Air 08/25/19 12:40 Oxygen Flow Rate 0 08/25/19 12:40 Fraction of Inspired Oxygen (FIO2) 30 08/23/19 22:10 Pain Level 0 08/25/19 12:40 Comment 08/25/19 10:13 Intake & Output 08/24/19 08/25/19 08/25/19 23:59 11:59 23:59 Intake Total 710 / 1070 490 / 490 Balance 710 / 1070 490 / 490 Weight 116.7 kg Intake: IV Oral 700 / 1060 490 / 490 Other: Urine Appearance Clear Comment voided x 1 post lasix administration Patient voids independently Voiding Methods Toilet Data Completed and Pending Completed studies during hospitalization [Text1]: Exam(s) a RAD:XR portable chest AP EXAM: XR PORTABLE CHEST AP INDICATION: SOB, cough, CHF. COMPARISON: No exams were available for comparison TECHNIQUE: 2D digital imaging was performed. FINDINGS: The heart is enlarged. The lung bases are not well penetrated, particularly the left. Leads overlie the chest. Oxygen tubing is seen. The appear grossly clear. No infiltrate, effusion or pulmonary edema. IMPRESSION: Cardiomegaly. There is limited visualization of the left lower lobe. There is no evidence of CHF. DATA REPOSITORY: Labs on day of discharge: Preliminary micro results at discharge 08/23/19 11:10 Blood Culture - Preliminary Blood NO GROWTH 48 HOURS 08/23/19 11:10 Blood Culture - Preliminary Blood NO GROWTH 48 HOURS PFS Medical History Depression (Chronic) Eczema (Acute) High cholesterol (Chronic) Panic attacks (Acute) Schizophrenia (Chronic) Surgical History Hx of hernia repair (Chronic) Social History Smoking/Tobacco Use Status: Never Alcohol Intake: never Drug use: Never Substance use type: does not use Do you feel safe at home: Yes Do you feel safe in your relationship?: Yes
--- NOTE | 2019-08-25 16:00 | PDOC.CMDIS ---
- If Service Date Differs Date of service: 08/25/19 Time of Service: 16:00 LACE Index Scoring Tool - Questions: Length of Stay (in days): 2 Acuity (Admit via E.D.?): Yes E.D. Visits: 1 - Answers: Total Score: 6 Risk of Readmission: Low Risk Care Management Discharge Reason for Hospitalization: CHF Exacerbation Discharge Plan: Miguel will return home with no additional services. He will follow up with his PCP and discharge plan of care and resume mental health services through [facility]. He will transport via private vehicle with [facility] staff.. Patient/Family Education Needs: Discharge plan, limitations, follow up plan, Ask Me Three
[2019-09-06 12:40] LABS: Potassium 4.4 mmol/L (3.5-5.1)
== END 2019-08-25 16:24 | disposition home or self-care (01) | DRG 292 ==
LOC: ER 13:53 → MS 14:19
PROVIDERS: Nurse Practitioner Acute Care; Admitting Provider Internal Medicine; Emergency Provider Student in an Organized Health Care Education/Training Program; PCP Nurse Practitioner Family; Visit Provider Internal Medicine
DX: I11.0 Hypertensive heart disease with heart failure (principal); Z68.41 Body mass index [BMI] 40.0-44.9, adult; J45.901 Unspecified asthma with (acute) exacerbation; E66.01 Morbid (severe) obesity due to excess calories; I50.9 Heart failure, unspecified; F20.9 Schizophrenia, unspecified; E11.9 Type 2 diabetes mellitus without complications; E78.00 Pure hypercholesterolemia, unspecified; Z79.84 Long term (current) use of oral hypoglycemic drugs; J44.9 Chronic obstructive pulmonary disease, unspecified; F32.9 Major depressive disorder, single episode, unspecified; L30.9 Dermatitis, unspecified; F41.0 Panic disorder [episodic paroxysmal anxiety]
CPT/HCPCS: 36415; 80053; 80061; 85027; 87040; 87449; 93005; 94618; 94640; 96374; 96375; 99223; 99233; 99239; 99285; J1650; 71045; 83036; 83880; 84484; 85025; 85610; 85730; 93010; 93306; J1940; J1941; J2930; J3490; J7620

== ENCOUNTER 2019-09-01 12:57 | Outpatient (REF) | payer MEDICAID, SELFPAY ==
[2019-09-04 11:38] LABS: HIV-1/2 Ag & Ab Screen Negative (Negative)
[2019-09-04 14:31] LABS: IgA 279 mg/dL (85-499); Tissue Transglutaminase IgA <1.2 U/mL (<4.0)
== END 2019-09-01 13:17 ==
LOC: NCHCN 12:57
PROVIDERS: PCP Nurse Practitioner Family; Visit Provider Nurse Practitioner Family
DX: Z11.4 Encounter for screening for human immunodeficiency virus [HIV] (principal); Z11.59 Encounter for screening for other viral diseases; R19.7 Diarrhea, unspecified; Z00.00 Encounter for general adult medical examination without abnormal findings
CPT/HCPCS: 82784; 83516; 87389

== ENCOUNTER 2020-08-14 18:13 | Outpatient (REF) | payer MEDICARE, MEDICAID, SELFPAY ==
[2020-08-14 20:01] LABS: COMMENT (LAB VIEW ONLY) 21.87 mg/dL; Microalb ug/mg Crea 12.8 ug/mg Cr
[2020-08-14 20:06] LABS: COMMENT (LAB VIEW ONLY) 20.75 mg/dL
[2020-08-14 20:07] LABS: PROTEIN < 6.0 mg/dL
[2020-08-14 20:13] LABS: Creatinine,Urine 21.11 mg/dL
== END 2020-08-14 18:14 | disposition home or self-care (01) ==
LOC: NCHCN 18:13
PROVIDERS: PCP Nurse Practitioner Family; Visit Provider Family Medicine
DX: E11.9 Type 2 diabetes mellitus without complications (principal)
CPT/HCPCS: 82043; 82565; 82570; 84156

== ENCOUNTER 2021-09-10 16:33 | Outpatient (REF) | payer MEDICARE, MEDICAID, SELFPAY ==
[2021-09-10 20:19] LABS: COMMENT (LAB VIEW ONLY) 49.35 mg/dL; Microalb ug/mg Crea 13.2 ug/mg Cr
[2021-09-10 20:23] LABS: ALT 29 U/L (16-63); AST 19 U/L (15-37); Albumin 3.9 g/dL (3.4-5.0); Alkaline Phosphatase 99 U/L (46-116); Anion Gap 11.5 mmol/L (3-11); BUN 18 mg/dL (7-18); Bilirubin, Total 0.9 mg/dL (0.2-1.0); CO2 24.5 mmol/L (21.0-32.0); CREATININE 1.2 mg/dL (0.70-1.30); Calculated LDL 74 mg/dL (<100); Chloride 102 mmol/L (98-107); Cholesterol 177 mg/dL (<200); Glucose 212 mg/dL (74-106); HDL Cholesterol 35 mg/dL (40-60); Potassium 3.9 mmol/L (3.5-5.1); Sodium 138 mmol/L (136-145); Total Protein 6.8 g/dL (6.4-8.2); Triglyceride 344 mg/dL (<150)
[2021-09-11 18:23] LABS: PSA, Screening 0.8 ng/mL (0.0-4.5)
== END 2021-09-10 16:34 | disposition home or self-care (01) ==
LOC: NCHCN 16:33
PROVIDERS: PCP Nurse Practitioner Family; Visit Provider Physician Assistant
DX: E11.9 Type 2 diabetes mellitus without complications (principal); Z12.5 Encounter for screening for malignant neoplasm of prostate
CPT/HCPCS: 80053; 80061; 84153; 82043; 82570; 83036

== ENCOUNTER 2022-10-09 16:57 | Outpatient (REF) | payer MEDICARE, MEDICAID, SELFPAY ==
[2022-10-09 19:09] LABS: HCT 44.5 % (40.0-50.0); HGB 15.2 g/dL (13.5-17.5); MCH 30.5 pg (27.0-33.0); MCHC 34.2 % (32.0-36.0); MCV 89 fL (80-95); MPV 12.6 fL (8.0-11.0); Platelet Count 169 10^3/uL (130-400); RBC 4.99 10^6/uL (4.36-5.78); RDW 12.7 % (11.8-14.1); WBC 6.79 10^3/uL (4.4-10.8)
[2022-10-09 19:32] LABS: ALT 30 U/L (16-63); AST 19 U/L (15-37); Albumin 4.1 g/dL (3.4-5.0); Alkaline Phosphatase 97 U/L (46-116); Anion Gap 8.2 mmol/L (3-11); BUN 19 mg/dL (7-18); Bilirubin, Total 1.1 mg/dL (0.2-1.0); CO2 30.8 mmol/L (21.0-32.0); CREATININE 1.5 mg/dL (0.70-1.30); Calcium 8.9 mg/dL (8.5-10.1); Calculated LDL 114 mg/dL (<100); Chloride 103 mmol/L (98-107); Cholesterol 205 mg/dL (<200); Estimated GFR 50.71 (mL/min/1.73m2); Glucose 146 mg/dL (74-106); HDL Cholesterol 42 mg/dL (40-60); Potassium 3.8 mmol/L (3.5-5.1); Sodium 142 mmol/L (136-145); Total Protein 7.3 g/dL (6.4-8.2); Triglyceride 245 mg/dL (<150)
[2022-10-09 19:38] LABS: Hemoglobin A1C 9.1 % (<5.7)
[2022-10-09 19:53] LABS: COMMENT (LAB VIEW ONLY) 43.66 mg/dL; Microalb ug/mg Crea 22.2 ug/mg Cr
== END 2022-10-09 16:58 | disposition home or self-care (01) ==
LOC: NCHCN 16:57
PROVIDERS: Visit Provider Physician Assistant
DX: E11.9 Type 2 diabetes mellitus without complications (principal); E78.5 Hyperlipidemia, unspecified; R23.3 Spontaneous ecchymoses
CPT/HCPCS: 80053; 80061; 85027; 82043; 82570; 83036

== ENCOUNTER 2023-01-18 11:11 | Emergency (ER) | payer MEDICARE, MEDICAID, SELFPAY ==
[2023-01-18] VITALS (37 sets, daily range): BP systolic 150–169; BP diastolic 82–101; PULSE 68–76; RESP 15–27; TEMP 36.8; O2SAT 93–98
--- NOTE | 2023-01-18 11:15 | RT.EKG_ITS ---
APPROVED REPORT Exam: Resting ECG Reason for Exam: SOB Patient Location: E HR:71 bpm ECG Measurements Heart Rate 71 AXIS IL 218 P 24 QRSd 128 QRS -40 QT 428 T 109 QTc 467 Conclusion Sinus rhythm...normal P axis, V-rate 60- 99 Borderline prolonged IL interval...IL >212, V-rate 50- 90 Left bundle branch block...QRSd>120, broad/notched R
--- NOTE | 2023-01-18 11:30 | DI.RAD_ITS ---
Exam(s) XR PORTABLE CHEST AP EXAM: XR PORTABLE CHEST AP CLINICAL HISTORY: fernández, weakness TECHNIQUE: 2D digital imaging was performed of the chest. One image was obtained. An AP view was ob tained. COMPARISON: No exams were available for comparison FINDINGS: MEDIASTINUM: Normal. HEART: Stable cardiac silhouette. PULMONARY VASCULATURE: Normal. LUNGS: Clear. PLEURAL SPACE: No pleural effusion or pneumothorax. BONE:Within normal limits for the patient's age. OTHER FINDINGS:Normal. IMPRESSION: No acute pulmonary findings. DATA REPOSITORY: RADIATION DOSE DELIVERED:
[2023-01-18 11:59] LABS: Abs Immature Grans 0.03 10^3/uL (0.0-0.06); Absolute Basophil Count 0.07 10^3/uL (0.0-0.2); Absolute Eosinophil Count 0.26 10^3/uL (0.0-0.7); Absolute Lymphocyte Count 0.82 10^3/uL (1.2-3.4); Absolute Neutrophil Count 6.77 10^3/uL (1.2-6.7); Basophils % 0.8; HCT 30.7 % (40.0-50.0); HGB 10.2 g/dL (13.5-17.5); Immature Grans % 0.4; Lymphocytes % 9.6; MCH 30.6 pg (27.0-33.0); MCHC 33.2 % (32.0-36.0); MCV 92 fL (80-95); MPV 11.9 fL (8.0-11.0); Neutrophils % 79.2; Platelet Count 214 10^3/uL (130-400); RBC 3.33 10^6/uL (4.36-5.78); RDW 13.1 % (11.8-14.1); RDW-SD 43.8 fL; WBC 8.55 10^3/uL (4.4-10.8)
[2023-01-18 12:24] LABS: ALT 16 U/L (16-63); AST 12 U/L (15-37); Albumin 3.6 g/dL (3.4-5.0); Alkaline Phosphatase 92 U/L (46-116); Anion Gap 13.6 mmol/L (3-11); BUN 63 mg/dL (7-18); CO2 22.4 mmol/L (21.0-32.0); Calcium 8.7 mg/dL (8.5-10.1); Chloride 107 mmol/L (98-107); Estimated GFR 9.36 (mL/min/1.73m2); Glucose 107 mg/dL (74-106); NT-proBNP 10136 pg/mL (<300); Potassium 4.6 mmol/L (3.5-5.1); Sodium 143 mmol/L (136-145); TSH (W/Ref FT4) 2.36 uIU/mL (0.36-3.74); Total Protein 7.5 g/dL (6.4-8.2); Troponin I < 50 ng/L (<or=60)
[2023-01-18 12:25] LABS: CREATININE 6.1 mg/dL (0.70-1.30)
[2023-01-18 12:34] LABS: D-Dimer 610 ng/mlFEU (<500)
[2023-01-18 13:17] LABS: Bilirubin Negative (Negative); Blood Trace-lysed (Negative); Clarity Sl Cloudy (Clear); Glucose Negative (Negative); Ketones Negative (Negative); Leukocyte Esterase Trace (Negative); Nitrite Negative (Negative); Specific Gravity 1.015 (1.005-1.025); Urobilinogen 0.2 mg/dL (Up to 0.2)
[2023-01-18 13:27] LABS: Bacteria Negative HPF (Negative); C & S Indicated? Yes; Casts 0-2 Hyaline LPF (Negative); Crystals Negative HPF (Negative); Epithelial Cells Rare HPF (Negative); Mucus Negative (Negative); RBC 0-2 HPF (0-2); WBC 0-2 HPF (0-5)
[2023-01-18] MEDS: Furosemide 40 MG/4 ML VIAL IVP (13:45)
[2023-01-18 13:46] LABS: BE (Venous) -2 mmol/L (-2-3); HCO3 (Venous) 24 mmol/L (23-28); O2 Sat (Venous) 33 %; TCO2 (Venous) 23 mmol/L (24-29); pCO2 (Venous) 45 mmHg (41-51); pH (Venous) 7.33 (7.31-7.41); pO2 (Venous) 22 mmHg
--- NOTE | 2023-01-18 14:16 | W.ED.GENAD ---
Discharge Plan Disposition Patient Disposition: Transfer-Acute Inpatient Care Specific Acute Inpt Facility: [facility] Condition: Serious Discharge Details Clinical Impression: Acute exacerbation of congestive heart failure, CLEM (acute kidney injury), Anemia Primary Care Provider: Unknown,Unknown ED Provider: Stiven Dykes Home Meds and New Rx's Prescriptions: No Action Jardiance 10 mg tablet 10 mg PO DAILY ibuprofen 200 mg tablet 200 mg PO Q8H naproxen sodium [Aleve] 220 mg tablet 440 mg PO Q8H lisinopril 10 mg tablet 10 mg PO DAILY Qty: 90 6RF furosemide 40 mg tablet 40 mg PO DAILY Qty: 90 6RF carvedilol 25 mg Tablet 25 mg PO BID gabapentin 600 mg Tablet 1,200 mg PO TID glipizide 10 mg Tablet Extended Release 24hr 20 mg PO DAILY olanzapine 10 mg Tablet 15 mg PO QHS triamcinolone acetonide 0.1 % Cream 1 applic TOPICAL TID PRN simvastatin 40 mg Tablet 40 mg PO DAILY indomethacin 50 mg Capsule 50 mg PO BID nitroglycerin [Nitrostat] 0.4 mg Tablet, Sublingual 0.4 mg SUBLINGUAL Q5M PRN betamethasone dipropionate 0.05 % Cream 1 applic TOPICAL DAILY PRN albuterol sulfate [ProAir HFA] 90 mcg/actuation Hfa Aerosol Inhaler 2 puff INHALATION QID PRN ketoconazole 2 % Cream 1 applic TOPICAL BID naloxone [Narcan] 4 mg/actuation [place],Non-Aerosol 4 mg INTRANASAL Q2-3M PRN Medical Decision Making 1420 --67-year-old male with multiple medical problems including history of CHF with reduced EF, hypertension, hyperlipidemia, diabetes, COPD, schizophrenia, here with dyspnea on exertion over the past 1 month. Patient states he has had increasing swelling in his abdomen. Patient was sent by [facility] for further work-up. Patient does have generalized fatigue and seems tired. Patient is saturating in the low to mid 90s on room air. He is intermittently tachypneic. Patient has no tachycardia. He is mildly hypertensive. Patient has no leg pain, calf swelling or tenderness. EKG was reviewed and interpreted by me: Sinus rhythm 71 bpm, normal axis, left bundle branch block is present, I reviewed prior EKG from 2019 and patient had left bundle branch block at that time. Concern for acute CHF exacerbation. Labs checked and patient has significantly elevated BNP. Initial troponin negative. Also concern for acute kidney injury. Patient has significantly elevated creatinine higher than baseline of 1.5. BUN is elevated and suspect prerenal component. I considered acute pulmonary embolism. Patient has no signs of DVT. Age-adjusted D-dimer negative. Chest x-ray reviewed and interpreted by radiology: No acute cardiopulmonary findings. Cardiomegaly is present. A [id number] ultrasound was performed by me and patient does have generally poor EF with hypokinesis diffusely. Called and spoke with [facility] cardiology, Felicita nurse practitioner, discussed ED presentation and course, she recommends giving Lasix up to 80 mg. I will initiate Lasix 40mg to start and place Benedict catheter. She will accept the patient on behalf of of Dr. Bradshaw. VBG was reviewed and interpreted by me: No significant hypercapnia. -- Results were discussed with the patient who provided verbal consent to transfer. --Patient reassessed after Lasix 40 mg and has significant urinary output of about 1.5 L. Patient hemodynamically stable. Lab Data Lab results reviewed: Yes I reviewed the patient's lab results. Labs: 01/18/23 12:49 Urine - Reflex from Ua Urine Culture - Pending Laboratory Tests Range/Units 01/18/23 01/18/23 01/18/23 11:40 11:40 11:40 WBC (4.4-10.8) 10^3/uL 8.55 RBC (4.36-5.78) 10^6/uL 3.33 L Hgb (13.5-17.5) g/dL 10.2 L Hct (40.0-50.0) % 30.7 L MCV (80-95) fL 92 MCH (27.0-33.0) pg 30.6 MCHC (32.0-36.0) % 33.2 RDW (11.8-14.1) % 13.1 Plt Count (130-400) 10^3/uL 214 MPV (8.0-11.0) fL 11.9 H Immature Gran % 0.4 Neutrophils % 79.2 Lymphocytes % 9.6 Monocytes % 7.0 Eosinophils % 3.0 Basophils % 0.8 Nucleated RBC % (0.0-0.3) % 0.0 Absolute Neutrophils (1.2-6.7) 10^3/uL 6.77 H Absolute Lymphocytes (1.2-3.4) 10^3/uL 0.82 L Absolute Monocytes (0.1-0.8) 10^3/uL 0.60 Absolute Eosinophils (0.0-0.7) 10^3/uL 0.26 Absolute Basophils (0.0-0.2) 10^3/uL 0.07 D-Dimer (<500) ng/mlFEU 610 H VBG pH (7.31-7.41) VBG pCO2 (41-51) mmHg VBG pO2 mmHg VBG HCO3 (23-28) mmol/L VBG Total CO2 (24-29) mmol/L VBG O2 Saturation % VBG Base Excess (-2-3) mmol/L Sodium (136-145) mmol/L 143 Potassium (3.5-5.1) mmol/L 4.6 Chloride (98-107) mmol/L 107 Carbon Dioxide (21.0-32.0) mmol/L 22.4 Anion Gap (3-11) mmol/L 13.6 H BUN (7-18) mg/dL 63 H Creatinine (0.70-1.30) mg/dL 6.1 H* Est GFR (CKD-EPI 2020) (mL/min/1.73m2) 9.36 Glucose (74-106) mg/dL 107 H Calcium (8.5-10.1) mg/dL 8.7 Magnesium (1.8-2.4) mg/dL 2.0 Total Bilirubin (0.2-1.0) mg/dL 1.0 AST (15-37) U/L 12 L ALT (16-63) U/L 16 Alkaline Phosphatase (46-116) U/L 92 Troponin I (<or=60) ng/L < 50 NT-Pro-B Natriuret Pep (<300) pg/mL 63267 H Total Protein (6.4-8.2) g/dL 7.5 Albumin (3.4-5.0) g/dL 3.6 TSH (0.36-3.74) uIU/mL 2.36 Urine Color (Yellow) Urine Clarity (Clear) Urine pH (5-8) Ur Specific [place] (1.005-1.025) Urine Protein (Negative) mg/dL Urine Ketones (Negative) mg/dL Urine Blood (Negative) Urine Nitrite (Negative) Urine Bilirubin (Negative) Urine Urobilinogen (Up to 0.2) mg/dL Ur Leukocyte Esterase (Negative) Urine RBC (0-2) HPF Urine WBC (0-5) HPF Ur Epithelial Cells (Negative) HPF Urine Crystals (Negative) HPF Urine Bacteria (Negative) HPF Urine Casts (Negative) LPF Urine Mucus (Negative) Ur Culture Indicated? Urine Glucose (Negative) mg/dL Range/Units 01/18/23 01/18/23 01/18/23 11:40 12:49 13:40 WBC (4.4-10.8) 10^3/uL RBC (4.36-5.78) 10^6/uL Hgb (13.5-17.5) g/dL Hct (40.0-50.0) % MCV (80-95) fL MCH (27.0-33.0) pg MCHC (32.0-36.0) % RDW (11.8-14.1) % Plt Count (130-400) 10^3/uL MPV (8.0-11.0) fL Immature Gran % Neutrophils % Lymphocytes % Monocytes % Eosinophils % Basophils % Nucleated RBC % (0.0-0.3) % Absolute Neutrophils (1.2-6.7) 10^3/uL Absolute Lymphocytes (1.2-3.4) 10^3/uL Absolute Monocytes (0.1-0.8) 10^3/uL Absolute Eosinophils (0.0-0.7) 10^3/uL Absolute Basophils (0.0-0.2) 10^3/uL D-Dimer (<500) ng/mlFEU VBG pH (7.31-7.41) 7.33 VBG pCO2 (41-51) mmHg 45 VBG pO2 mmHg 22 VBG HCO3 (23-28) mmol/L 24 VBG Total CO2 (24-29) mmol/L 23 L VBG O2 Saturation % 33 VBG Base Excess (-2-3) mmol/L -2 Sodium (136-145) mmol/L Potassium (3.5-5.1) mmol/L Chloride (98-107) mmol/L Carbon Dioxide (21.0-32.0) mmol/L Anion Gap (3-11) mmol/L BUN (7-18) mg/dL Creatinine (0.70-1.30) mg/dL Est GFR (CKD-EPI 2020) (mL/min/1.73m2) Glucose (74-106) mg/dL Calcium (8.5-10.1) mg/dL Magnesium (1.8-2.4) mg/dL Total Bilirubin (0.2-1.0) mg/dL AST (15-37) U/L ALT (16-63) U/L Alkaline Phosphatase (46-116) U/L Troponin I (<or=60) ng/L NT-Pro-B Natriuret Pep (<300) pg/mL Total Protein (6.4-8.2) g/dL Albumin (3.4-5.0) g/dL TSH (0.36-3.74) uIU/mL Cancelled Urine Color (Yellow) Yellow Urine Clarity (Clear) Sl Cloudy Urine pH (5-8) 6.0 Ur Specific [place] (1.005-1.025) 1.015 Urine Protein (Negative) mg/dL Trace H Urine Ketones (Negative) mg/dL Negative Urine Blood (Negative) Trace-lysed H Urine Nitrite (Negative) Negative Urine Bilirubin (Negative) Negative Urine Urobilinogen (Up to 0.2) mg/dL 0.2 Ur Leukocyte Esterase (Negative) Trace H Urine RBC (0-2) HPF 0-2 Urine WBC (0-5) HPF 0-2 Ur Epithelial Cells (Negative) HPF Rare Urine Crystals (Negative) HPF Negative Urine Bacteria (Negative) HPF Negative Urine Casts (Negative) LPF 0-2 Hyaline Urine Mucus (Negative) Negative Ur Culture Indicated? Yes Urine Glucose (Negative) mg/dL Negative HPI General Mode of arrival: EMS. Date/Time Provider Initiated Documentation: 01/18/23 11:16. Information obtained by: patient and EMS. HPI Narrative: 67yo male with history of diabetes, COPD, CHF, reduced EF, hypertension, hyperlipidemia, depression, schizophrenia, here with chief complaint of weakness. Patient notes generalized weakness for the past few weeks. He states significant dyspnea on exertion. He notes associated swelling of his abdomen. History is somewhat limited secondary to poor historian. It is unclear if patient's been taking his medication as prescribed. Per EMS, patient had blood glucose of 69 and was given 2 bottles of maple syrup. Patient notes he has been urinating normally. Related Data Home Medications Medication Instructions Recorded Confirmed albuterol sulfate 90 mcg/actuation 2 puff inhalation QID PRN 08/23/19 01/18/23 aerosol inhaler (ProAir HFA) betamethasone dipropionate 0.05 % 1 applic topical DAILY PRN 08/23/19 01/18/23 topical cream carvedilol 25 mg tablet 25 mg PO BID 08/23/19 01/18/23 gabapentin 600 mg tablet 1,200 mg PO TID 08/23/19 01/18/23 glipizide 10 mg tablet, extended 20 mg PO DAILY 08/23/19 01/18/23 release 24 hr indomethacin 50 mg capsule 50 mg PO BID 08/23/19 01/18/23 ketoconazole 2 % topical cream 1 applic topical BID 08/23/19 01/18/23 naloxone 4 mg/actuation nasal 4 mg intranasal Q2-3M PRN 08/23/19 01/18/23 spray (Narcan) nitroglycerin 0.4 mg sublingual 0.4 mg sublingual Q5M PRN 08/23/19 01/18/23 tablet (Nitrostat) olanzapine 10 mg tablet 15 mg PO QHS 08/23/19 01/18/23 simvastatin 40 mg tablet 40 mg PO DAILY 08/23/19 01/18/23 triamcinolone acetonide 0.1 % 1 applic topical TID PRN 08/23/19 01/18/23 topical cream empagliflozin 10 mg tablet 10 mg PO DAILY 09/18/19 01/18/23 (Jardiance) ibuprofen 200 mg tablet 200 mg PO Q8H 09/18/19 01/18/23 lisinopril 10 mg tablet 10 mg PO DAILY #90 tabs 09/18/19 01/18/23 naproxen sodium 220 mg tablet 440 mg PO Q8H 09/18/19 01/18/23 (Aleve) furosemide 40 mg tablet 40 mg PO DAILY #90 tabs 11/26/20 01/18/23 Previous Rx's Medication Instructions Recorded lisinopril 10 mg tablet 10 mg PO DAILY #90 tabs 09/18/19 furosemide 40 mg tablet 40 mg PO DAILY #90 tabs 11/26/20 Allergies Allergy/AdvReac Type Severity Reaction Status Date / Time No Known Allergies Allergy Unverified 01/18/23 11:19 General Stated Complaint: GenMedical MINERVA: 3 Review of Systems Constitutional Constitutional: Denies fever(s) Cardiovascular Cardiovascular: Denies chest pain and Denies irregular heart rhythm Respiratory Respiratory: Reports as per HPI Gastrointestinal Gastrointestinal: Denies abdominal pain PFSH All Active Problems (Updated 01/18/23 @ 14:26 by Stiven Dykes MD) Acute exacerbation of congestive heart failure (Acute) CLEM (acute kidney injury) (Acute) Anemia (Chronic) Heart failure with reduced ejection fraction (Acute) Hypertension (Chronic) Hx of hernia repair (Chronic) Panic attacks (Acute) High cholesterol (Chronic) Eczema (Acute) Depression (Chronic) Schizophrenia (Chronic) Diabetes mellitus type 2 in obese (Acute) Discharge planning issues (Acute) DVT prophylaxis (Acute) CAP (community acquired pneumonia) (Acute) Asthma exacerbation in COPD (Acute) Acute dyspnea (Acute) Social History Smoking/Tobacco Use Status: Never Smoking risk assessment performed?: Yes Alcohol Intake: never Drug use: Never Substance use type: does not use Housing: apartment What type of physical activity do you participate in: none Do you feel safe at home: Yes Do you feel safe in your relationship?: Yes Exam Const General: cooperative and no acute distress HENMT Mouth: mucous membranes dry Eyes Conjunctivae: normal conjunctivae Sclera: normal sclerae Neck Neck: supple Resp Effort & Inspection: no respiratory distress and tachypneic Auscultation: clear to auscultation bilaterally, no rales and no rhonchi Other: Diminished breath sounds bilateral bases Cardio Rate: regular rate and not tachycardic Rhythm: regular rhythm GI Palpation: soft, not firm, no guarding, no masses, no pulsatile masses, not rigid and nontender Auscultation: normal bowel sounds Other: Fullness Skin General skin exam: no rashes or lesions noted Neuro General: patient awake, tone normal and other (fatigued) Speech: speech normal Motor: other (no focal defitis) Sensory Exam: no sensory deficits noted Extrem General: edema Laterality: bilateral (1+ pitting up ankles) Psych Appearance: grossly normal Course Vital Signs Vital signs: Vital Signs Temperature 36.8 C 01/18/23 11:13 Pulse 71 01/18/23 11:13 Respiratory Rate 22 01/18/23 11:13 Blood Pressure 150/87 H 01/18/23 11:13 Pulse Oximetry 95 01/18/23 11:13 Temperature 36.8 C 01/18/23 11:13 Temperature Source Skin 01/18/23 11:13 Pulse 71 01/18/23 12:31 Pulse 72 01/18/23 12:31 Respiratory Rate 16 01/18/23 12:31 Respiratory Effort Short of Breath 01/18/23 11:29 Respiratory Pattern Tachypnea 01/18/23 11:29 Blood Pressure 156/91 H 01/18/23 12:31 Blood Pressure Mean 106 01/18/23 12:31 Blood Pressure Position Sitting 01/18/23 11:13 Pulse Oximetry 97 01/18/23 12:31 Oxygen Delivery Method Room Air 01/18/23 11:13 Oxygen Flow Rate 0 01/18/23 11:13 Lab/Test Results Lab/Test Results: 01/18/23 12:49 Urine - Reflex from Ua Urine Culture - Pending Laboratory Tests Range/Units 01/18/23 01/18/23 01/18/23 11:40 11:40 11:40 WBC (4.4-10.8) 10^3/uL 8.55 RBC (4.36-5.78) 10^6/uL 3.33 L Hgb (13.5-17.5) g/dL 10.2 L Hct (40.0-50.0) % 30.7 L MCV (80-95) fL 92 MCH (27.0-33.0) pg 30.6 MCHC (32.0-36.0) % 33.2 RDW (11.8-14.1) % 13.1 Plt Count (130-400) 10^3/uL 214 MPV (8.0-11.0) fL 11.9 H Immature Gran % 0.4 Neutrophils % 79.2 Lymphocytes % 9.6 Monocytes % 7.0 Eosinophils % 3.0 Basophils % 0.8 Nucleated RBC % (0.0-0.3) % 0.0 Absolute Neutrophils (1.2-6.7) 10^3/uL 6.77 H Absolute Lymphocytes (1.2-3.4) 10^3/uL 0.82 L Absolute Monocytes (0.1-0.8) 10^3/uL 0.60 Absolute Eosinophils (0.0-0.7) 10^3/uL 0.26 Absolute Basophils (0.0-0.2) 10^3/uL 0.07 D-Dimer (<500) ng/mlFEU 610 H VBG pH (7.31-7.41) VBG pCO2 (41-51) mmHg VBG pO2 mmHg VBG HCO3 (23-28) mmol/L VBG Total CO2 (24-29) mmol/L VBG O2 Saturation % VBG Base Excess (-2-3) mmol/L Sodium (136-145) mmol/L 143 Potassium (3.5-5.1) mmol/L 4.6 Chloride (98-107) mmol/L 107 Carbon Dioxide (21.0-32.0) mmol/L 22.4 Anion Gap (3-11) mmol/L 13.6 H BUN (7-18) mg/dL 63 H Creatinine (0.70-1.30) mg/dL 6.1 H* Est GFR (CKD-EPI 2020) (mL/min/1.73m2) 9.36 Glucose (74-106) mg/dL 107 H Calcium (8.5-10.1) mg/dL 8.7 Magnesium (1.8-2.4) mg/dL 2.0 Total Bilirubin (0.2-1.0) mg/dL 1.0 AST (15-37) U/L 12 L ALT (16-63) U/L 16 Alkaline Phosphatase (46-116) U/L 92 Troponin I (<or=60) ng/L < 50 NT-Pro-B Natriuret Pep (<300) pg/mL 62343 H Total Protein (6.4-8.2) g/dL 7.5 Albumin (3.4-5.0) g/dL 3.6 TSH (0.36-3.74) uIU/mL 2.36 Urine Color (Yellow) Urine Clarity (Clear) Urine pH (5-8) Ur Specific [place] (1.005-1.025) Urine Protein (Negative) mg/dL Urine Ketones (Negative) mg/dL Urine Blood (Negative) Urine Nitrite (Negative) Urine Bilirubin (Negative) Urine Urobilinogen (Up to 0.2) mg/dL Ur Leukocyte Esterase (Negative) Urine RBC (0-2) HPF Urine WBC (0-5) HPF Ur Epithelial Cells (Negative) HPF Urine Crystals (Negative) HPF Urine Bacteria (Negative) HPF Urine Casts (Negative) LPF Urine Mucus (Negative) Ur Culture Indicated? Urine Glucose (Negative) mg/dL Range/Units 01/18/23 01/18/23 01/18/23 11:40 12:49 13:40 WBC (4.4-10.8) 10^3/uL RBC (4.36-5.78) 10^6/uL Hgb (13.5-17.5) g/dL Hct (40.0-50.0) % MCV (80-95) fL MCH (27.0-33.0) pg MCHC (32.0-36.0) % RDW (11.8-14.1) % Plt Count (130-400) 10^3/uL MPV (8.0-11.0) fL Immature Gran % Neutrophils % Lymphocytes % Monocytes % Eosinophils % Basophils % Nucleated RBC % (0.0-0.3) % Absolute Neutrophils (1.2-6.7) 10^3/uL Absolute Lymphocytes (1.2-3.4) 10^3/uL Absolute Monocytes (0.1-0.8) 10^3/uL Absolute Eosinophils (0.0-0.7) 10^3/uL Absolute Basophils (0.0-0.2) 10^3/uL D-Dimer (<500) ng/mlFEU VBG pH (7.31-7.41) 7.33 VBG pCO2 (41-51) mmHg 45 VBG pO2 mmHg 22 VBG HCO3 (23-28) mmol/L 24 VBG Total CO2 (24-29) mmol/L 23 L VBG O2 Saturation % 33 VBG Base Excess (-2-3) mmol/L -2 Sodium (136-145) mmol/L Potassium (3.5-5.1) mmol/L Chloride (98-107) mmol/L Carbon Dioxide (21.0-32.0) mmol/L Anion Gap (3-11) mmol/L BUN (7-18) mg/dL Creatinine (0.70-1.30) mg/dL Est GFR (CKD-EPI 2020) (mL/min/1.73m2) Glucose (74-106) mg/dL Calcium (8.5-10.1) mg/dL Magnesium (1.8-2.4) mg/dL Total Bilirubin (0.2-1.0) mg/dL AST (15-37) U/L ALT (16-63) U/L Alkaline Phosphatase (46-116) U/L Troponin I (<or=60) ng/L NT-Pro-B Natriuret Pep (<300) pg/mL Total Protein (6.4-8.2) g/dL Albumin (3.4-5.0) g/dL TSH (0.36-3.74) uIU/mL Cancelled Urine Color (Yellow) Yellow Urine Clarity (Clear) Sl Cloudy Urine pH (5-8) 6.0 Ur Specific [place] (1.005-1.025) 1.015 Urine Protein (Negative) mg/dL Trace H Urine Ketones (Negative) mg/dL Negative Urine Blood (Negative) Trace-lysed H Urine Nitrite (Negative) Negative Urine Bilirubin (Negative) Negative Urine Urobilinogen (Up to 0.2) mg/dL 0.2 Ur Leukocyte Esterase (Negative) Trace H Urine RBC (0-2) HPF 0-2 Urine WBC (0-5) HPF 0-2 Ur Epithelial Cells (Negative) HPF Rare Urine Crystals (Negative) HPF Negative Urine Bacteria (Negative) HPF Negative Urine Casts (Negative) LPF 0-2 Hyaline Urine Mucus (Negative) Negative Ur Culture Indicated? Yes Urine Glucose (Negative) mg/dL Negative
[2023-01-18 16:09] LABS: Troponin I < 50 ng/L (<or=60)
--- NOTE | 2023-01-20 11:24 | NUR.NOTE ---
Nursing Note:in chart to look for antibiotic
== END 2023-01-18 15:59 | disposition short-term general hospital (02) ==
PROVIDERS: Emergency Provider Student in an Organized Health Care Education/Training Program
DX: R53.1 Weakness (principal); R06.02 Shortness of breath; I50.22 Chronic systolic (congestive) heart failure; I11.0 Hypertensive heart disease with heart failure; I44.7 Left bundle-branch block, unspecified; N17.9 Acute kidney failure, unspecified; D64.9 Anemia, unspecified; E78.5 Hyperlipidemia, unspecified; J44.9 Chronic obstructive pulmonary disease, unspecified
CPT/HCPCS: 36415; 80053; 82805; 82962; 93005; 99285; 71045; 81003; 81015; 83735; 83880; 84443; 84484; 85025; 85379; 87086; 93010; 99284; J1940

== ENCOUNTER 2023-01-28 12:27 | Emergency (ER) | payer MEDICARE, MEDICAID, SELFPAY ==
[2023-01-28 12:31] VITALS: BP 145/78; PULSE 81; RESP 20; TEMP 36.9; O2SAT 99
[2023-01-28 12:37] VITALS: BP 138/70; PULSE 82; O2SAT 95
--- NOTE | 2023-01-28 12:37 | ED.GENADUL_ITS ---
Discharge Plan Disposition Patient Disposition: Home Condition: Improving Discharge Details Clinical Impression: Acute urinary retention Primary Care Provider: Unknown,Unknown ED Provider: Rosalba Padron Home Meds and New Rx's Prescriptions: No Action Jardiance 10 mg tablet 10 mg PO DAILY ibuprofen 200 mg tablet 200 mg PO Q8H naproxen sodium [Aleve] 220 mg tablet 440 mg PO Q8H lisinopril 10 mg tablet 10 mg PO DAILY Qty: 90 6RF furosemide 40 mg tablet 40 mg PO DAILY Qty: 90 6RF carvedilol 25 mg Tablet 25 mg PO BID gabapentin 600 mg Tablet 1,200 mg PO TID glipizide 10 mg Tablet Extended Release 24hr 20 mg PO DAILY olanzapine 10 mg Tablet 15 mg PO QHS triamcinolone acetonide 0.1 % Cream 1 applic TOPICAL TID PRN simvastatin 40 mg Tablet 40 mg PO DAILY indomethacin 50 mg Capsule 50 mg PO BID nitroglycerin [Nitrostat] 0.4 mg Tablet, Sublingual 0.4 mg SUBLINGUAL Q5M PRN betamethasone dipropionate 0.05 % Cream 1 applic TOPICAL DAILY PRN albuterol sulfate [ProAir HFA] 90 mcg/actuation Hfa Aerosol Inhaler 2 puff INHALATION QID PRN ketoconazole 2 % Cream 1 applic TOPICAL BID naloxone [Narcan] 4 mg/actuation [place],Non-Aerosol 4 mg INTRANASAL Q2-3M PRN Discharge Instructions Instructions: Urinary Retention in Men (ED), Benedict Catheter Placement and Care (ED), How to Change a Catheter Drainage Bag (DC) Referrals: [facility] [Provider Group] - 5 days (Call to arrange appointment for Benedict removal.) Discharge Data Discharge Physician: Rosalba Padron Medical Decision Making 67-year-old male presents for evaluation of inability to urinate. Patient had greater than 500 mL of urine in the bladder. Benedict catheter was placed with improvement of symptoms. Patient will be sent home with Benedict catheter. I do not feel that he has significant UTI at this time. He will follow-up with urology. He understands indications to return. HPI General Date/Time Provider Initiated Documentation: 01/28/23 12:31 . HPI Narrative: 67-year-old male with recent admission at [facility] for CHF exacerbation presents for evaluation of inability to urinate. He had Benedict catheter in place during his admission. He believes it was removed at 4 PM yesterday. He states he has not been able to urinate at all since that time. He is able to move his bowels. He denies any fevers or chills. No nausea or vomiting. No abdominal pain. No back pain. Related Data Home Medications Medication Instructions Recorded Confirmed albuterol sulfate 90 mcg/actuation 2 puff inhalation QID PRN 08/23/19 01/18/23 aerosol inhaler (ProAir HFA) betamethasone dipropionate 0.05 % 1 applic topical DAILY PRN 08/23/19 01/18/23 topical cream carvedilol 25 mg tablet 25 mg PO BID 08/23/19 01/18/23 gabapentin 600 mg tablet 1,200 mg PO TID 08/23/19 01/18/23 glipizide 10 mg tablet, extended 20 mg PO DAILY 08/23/19 01/18/23 release 24 hr indomethacin 50 mg capsule 50 mg PO BID 08/23/19 01/18/23 ketoconazole 2 % topical cream 1 applic topical BID 08/23/19 01/18/23 naloxone 4 mg/actuation nasal 4 mg intranasal Q2-3M PRN 08/23/19 01/18/23 spray (Narcan) nitroglycerin 0.4 mg sublingual 0.4 mg sublingual Q5M PRN 08/23/19 01/18/23 tablet (Nitrostat) olanzapine 10 mg tablet 15 mg PO QHS 08/23/19 01/18/23 simvastatin 40 mg tablet 40 mg PO DAILY 08/23/19 01/18/23 triamcinolone acetonide 0.1 % 1 applic topical TID PRN 08/23/19 01/18/23 topical cream empagliflozin 10 mg tablet 10 mg PO DAILY 09/18/19 01/18/23 (Jardiance) ibuprofen 200 mg tablet 200 mg PO Q8H 09/18/19 01/18/23 lisinopril 10 mg tablet 10 mg PO DAILY #90 tabs 09/18/19 01/18/23 naproxen sodium 220 mg tablet 440 mg PO Q8H 09/18/19 01/18/23 (Aleve) furosemide 40 mg tablet 40 mg PO DAILY #90 tabs 11/26/20 01/18/23 Previous Rx's Medication Instructions Recorded lisinopril 10 mg tablet 10 mg PO DAILY #90 tabs 09/18/19 furosemide 40 mg tablet 40 mg PO DAILY #90 tabs 11/26/20 Allergies Allergy/AdvReac Type Severity Reaction Status Date / Time No Known Allergies Allergy Unverified 01/28/23 12:35 General Stated Complaint: Urinary MINERVA: 3 Review of Systems Narrative: Remainder of review of systems otherwise negative except as noted in the HPI x10. PFSH All Active Problems (Updated 01/28/23 @ 13:13 by Rosalba Padron MD) Acute exacerbation of congestive heart failure (Acute) CLEM (acute kidney injury) (Acute) Anemia (Chronic) Acute urinary retention (Acute) Heart failure with reduced ejection fraction (Acute) Hypertension (Chronic) Hx of hernia repair (Chronic) Panic attacks (Acute) High cholesterol (Chronic) Eczema (Acute) Depression (Chronic) Schizophrenia (Chronic) Diabetes mellitus type 2 in obese (Acute) Discharge planning issues (Acute) DVT prophylaxis (Acute) CAP (community acquired pneumonia) (Acute) Asthma exacerbation in COPD (Acute) Acute dyspnea (Acute) Social History Smoking/Tobacco Use Status: Never Smoking risk assessment performed?: Yes Alcohol Intake: never Drug use: Never Substance use type: does not use Housing: apartment What type of physical activity do you participate in: none Do you feel safe at home: Yes Do you feel safe in your relationship?: Yes Exam Narrative Exam Narrative: General: non-toxic, no respiratory distress, comfortable HEENT: normocephalic, atraumatic, lids and lashes normal, PERRL, EOMI, anicteric sclera, no conjunctival injection, moist oral mucosa Card: regular rate and rhythm, S1S2, no murmurs, rubs, or gallops Lungs: good air entry, clear to auscultation bilaterally. no wheezes, rales, rhonchi, or retractions Abd: soft, non-tender, non-distended, normal bowel sounds, no rebound or guarding, no peritoneal signs, no CVAT Musculoskeletal: full range of motion of arms and legs, no tenderness to palpation. no clubbing, cyanosis, or edema Neurologic: appropriate for age, strength normal Psych: alert and oriented Skin: no petechiae, no lesions, warm and dry Course Vital Signs Vital signs: Vital Signs Temperature 36.9 C 01/28/23 12:31 Pulse 81 01/28/23 12:31 Respiratory Rate 20 01/28/23 12:31 Blood Pressure 145/78 H 01/28/23 12:31 Pulse Oximetry 99 01/28/23 12:31 Temperature 36.9 C 01/28/23 12:31 Temperature Source Oral 01/28/23 12:31 Pulse 81 01/28/23 12:31 Respiratory Rate 20 01/28/23 12:31 Blood Pressure 145/78 H 01/28/23 12:31 Blood Pressure Position Sitting 01/28/23 12:31 Pulse Oximetry 99 01/28/23 12:31 Oxygen Delivery Method Room Air 01/28/23 12:31 Oxygen Flow Rate 0 01/28/23 12:31
[2023-01-28 13:01] VITALS: BP 140/78; PULSE 76; O2SAT 96
[2023-01-28] MEDS: Lidocaine 2% Jelly 11 ML SYR UR (13:07)
[2023-01-28 13:12] LABS: Bilirubin Negative (Negative); Blood Small (Negative); Clarity Clear (Clear); Glucose Negative (Negative); Ketones Negative (Negative); Leukocyte Esterase Small (Negative); Nitrite Negative (Negative); Specific Gravity 1.015 (1.005-1.025); Urobilinogen 0.2 mg/dL (Up to 0.2); pH 5.5 (5-8)
[2023-01-28 13:33] LABS: Bacteria Few HPF (Negative); C & S Indicated? Yes; Casts 0-2 Hyaline LPF (Negative); Crystals Negative HPF (Negative); Epithelial Cells Few HPF (Negative); Mucus Trace (Negative); Other Cells Negative (Negative); RBC 0-2 HPF (0-2)
[2023-01-28 14:01] VITALS: BP 150/77; PULSE 74; O2SAT 96
== END 2023-01-28 14:24 | disposition home or self-care (01) ==
PROVIDERS: Emergency Provider Emergency Medicine Emergency Medical Services
DX: R33.8 Other retention of urine (principal)
CPT/HCPCS: 51702; 99283; 81003; 81015; 87086

== ENCOUNTER → 2023-02-05 10:35 | Outpatient (BNVA) | payer MEDICARE, MEDICAID, SELFPAY | PROVIDERS: Visit Provider Urology | DX: R33.8 Other retention of urine (principal); Z96.0 Presence of urogenital implants; E11.9 Type 2 diabetes mellitus without complications; I10 Essential (primary) hypertension | CPT/HCPCS: 99215 ==

== ENCOUNTER 2023-02-09 12:04 | Inpatient (IN) | payer MEDICARE, MEDICAID, SELFPAY ==
[2023-02-09] VITALS (45 sets, daily range): BP systolic 108–174; BP diastolic 69–120; PULSE 70–94; RESP 12–24; TEMP 35.9–36.4; O2SAT 96–100
--- NOTE | 2023-02-09 12:00 | RT.EKG_ITS ---
APPROVED REPORT Exam: Resting ECG Reason for Exam: sob Patient Location: E HR:79 bpm ECG Measurements Heart Rate 79 AXIS VT 215 P 51 QRSd 117 QRS -42 QT 412 T 62 QTc 471 Conclusion Sinus rhythm...V-rate 60- 99 Borderline prolonged VT interval...VT >212, V-rate 50- 90 Left anterior fascicular block...axis(240,-40) No ST segment or T wave abnormalities to suggest occlusive NV
--- NOTE | 2023-02-09 12:15 | DI.RAD_ITS ---
Exam(s) XR PORTABLE CHEST AP EXAM: XR PORTABLE CHEST AP CLINICAL HISTORY: SOB, TECHNIQUE: 2D digital imaging was performed. COMPARISON: CR XR PORTABLE CHEST AP from 08/23/2019 CR XR PORTABLE CHEST AP from 01/18/2023 FINDINGS: Exam limited by poor pulmonary inflation and under penetration at the lung bases. LUNGS: Clear. No pleural abnormality seen. HEART: Normal size. AORTA: Normal diameter. BONES: Unremarkable for age. Soft tissues: Unremarkable. IMPRESSION: No acute findings. DATA REPOSITORY: RADIATION DOSE DELIVERED:
[2023-02-09 12:49] LABS: Abs Immature Grans 0.02 10^3/uL (0.0-0.06); Absolute Basophil Count 0.04 10^3/uL (0.0-0.2); Absolute Eosinophil Count 0.11 10^3/uL (0.0-0.7); Absolute Lymphocyte Count 0.82 10^3/uL (1.2-3.4); Absolute Monocyte Count 0.56 10^3/uL (0.1-0.8); Absolute Neutrophil Count 5.37 10^3/uL (1.2-6.7); Basophils % 0.6; Eosinophils % 1.6; HCT 36.5 % (40.0-50.0); HGB 12.7 g/dL (13.5-17.5); Immature Grans % 0.3; Lymphocytes % 11.8; MCH 30.7 pg (27.0-33.0); MCHC 34.8 % (32.0-36.0); MCV 88 fL (80-95); MPV 12.6 fL (8.0-11.0); Monocytes % 8.1; Neutrophils % 77.6; Platelet Count 198 10^3/uL (130-400); RBC 4.14 10^6/uL (4.36-5.78); RDW-SD 41.5 fL; WBC 6.92 10^3/uL (4.4-10.8)
[2023-02-09 13:03] LABS: ALT 31 U/L (16-63); AST 17 U/L (15-37); Albumin 3.8 g/dL (3.4-5.0); Alkaline Phosphatase 112 U/L (46-116); Anion Gap 12.5 mmol/L (3-11); BUN 59 mg/dL (7-18); Bilirubin, Total 0.8 mg/dL (0.2-1.0); CO2 21.5 mmol/L (21.0-32.0); Calcium 9.5 mg/dL (8.5-10.1); Chloride 103 mmol/L (98-107); Estimated GFR 12.48 (mL/min/1.73m2); Glucose 207 mg/dL (74-106); Magnesium 1.9 mg/dL (1.8-2.4); NT-proBNP 7087 pg/mL (<300); Potassium 4.4 mmol/L (3.5-5.1); Sodium 137 mmol/L (136-145); Total Protein 7.7 g/dL (6.4-8.2); Troponin I < 50 ng/L (<or=60)
[2023-02-09 13:19] LABS: CREATININE 4.8 mg/dL (0.70-1.30)
--- NOTE | 2023-02-09 13:29 | ED.GENADUL_ITS ---
Discharge Plan Disposition Patient Disposition: Admit to [facility] Condition: Stable Discharge Details Clinical Impression: Weakness, CLEM (acute kidney injury), Nonadherence to medication, CHF (congestive heart failure) Primary Care Provider: Unknown,Unknown ED Provider: Mimi Cornelius Meds and New Rx's Prescriptions: No Action ibuprofen 200 mg tablet 200 mg PO Q8H gabapentin 100 mg capsule 100 mg PO TID Patient Comments: pt states not taking Rx Instructions: Takes with 600 mg tid finasteride 5 mg tablet 5 mg PO DAILY atorvastatin 40 mg tablet 40 mg PO QHS Patient Comments: pt states not taking metoprolol succinate 25 mg tablet extended release 24 hr 25 mg PO DAILY Patient Comments: pt states not taking naproxen sodium [Aleve] 220 mg tablet 440 mg PO Q8H PRN Patient Comments: pt states not taking tamsulosin [Flomax] 0.4 mg capsule 0.8 mg PO QHS losartan 25 mg tablet 12.5 mg PO DAILY Patient Comments: pt states not taking olanzapine 10 mg tablet 10 mg PO QHS Patient Comments: pt states not taking gabapentin 600 mg Tablet 1,200 mg PO TID Patient Comments: pt states not taking glipizide 10 mg Tablet Extended Release 24hr 20 mg PO DAILY Patient Comments: pt states not taking triamcinolone acetonide 0.1 % Cream 1 applic TOPICAL TID PRN Patient Comments: pt states not taking nitroglycerin [Nitrostat] 0.4 mg Tablet, Sublingual 0.4 mg SUBLINGUAL Q5M PRN Patient Comments: pt states not taking betamethasone dipropionate 0.05 % Cream 1 applic TOPICAL DAILY PRN albuterol sulfate [ProAir HFA] 90 mcg/actuation Hfa Aerosol Inhaler 2 puff INHALATION QID PRN ketoconazole 2 % Cream 1 applic TOPICAL BID naloxone [Narcan] 4 mg/actuation [place],Non-Aerosol 4 mg INTRANASAL Q2-3M PRN Patient Comments: pt states not taking Medical Decision Making 67-year-old male presents to the ER via EMS with a chief complaint of shortness of breath and gagging when lying down. He reports this is an worsening over the last week. He presents with a indwelling Benedict catheter placed which is draining clear urine approximately 500 cc in the bag. He reports that he is only taking finasteride and tamsulosin. He reports that he self DC'd the rest o f his medications due to kidney issues. The furosemide and lisinopril were DC'd on February 05 according to urology chart review. Patient denies any diarrhea no blood in his stool he denies any nausea vomiting. He reports his last bowel movement was this morning which was normal. He does have some left lower quadrant abdominal pain. Past medical history includes but not limited to asthma exacerbation COPD, CHF, pneumonia, type 2 diabetes, obesity, schizophrenia depression and, urinary retention, acute kidney injury anemia. Upon arrival he is alert and oriented, hypertensive, O2 sat is 97% on room air. He denies any chest pain. He also states that he left [facility] when they wanted him to stay. He also states that he can no longer live in his apartment and that he is feeling sicker because of the condition of his apartment. He does state that he does have home health that comes to visit him. Work-up ordered including CBC, CMP, proBNP, serial troponins, chest x-ray proBNP is 7087 which is improved from his last result in December was 10 thousand, glucose is 207, BUN is 59 creatinine 4.8 GFR is 12.48 on January 18 his creatinine was 6, anion gap 12.5, no leukocytosis hemoglobin 12.7 hematocrit 36.5 1411: Spoke with Caroline Anderson with urology who has been following up with patient regarding his nephrology and cardiology appointments. She states that she was notified that he canceled all of his appointments and they have reached out to Ivanna Mauro who is patient's person to notify to get his appointments rescheduled. He also told Caroline Justin this morning that [place] [facility] [place] recommends consulting with GANGA Mitchell. I will have them paged. 1426: Spoke with Mandi who is a rag room supervisor for [employer] who follows patient she reports that they were advised [place] [facility] [place] that if he was unable to keep his meds down to go to the ER. I also spoke with his case finisher who is concerned that he may have both medical issues and psychiatric issues due to him not taking his medications. Awaiting CT results at this time and will page hospitalist. 1538: Spoke with Dr. Santiago who agrees to accept paitient for admission to [facility] for weakness and CHF. He recommends Furosemide. 20mg IV ordered. Medical Records Medical records reviewed: Yes I reviewed the patient's medical records. Medical records narrative: According to urology chart review that she was seen at the clinic on the by Dr. Patterson patient was supposed to [place] [facility] [place] possible renal biopsy those referrals placed by outpatient providers. Requested records from [facility] Imaging Data Radiologic Study: Imaging: CT Scan Radiologist's impression: EXAM: CT CHEST/ABD/PEL WO CLINICAL HISTORY: SOB, Vomiting. TECHNIQUE: Imaging protocol: Axial computed tomography images were obtained and coronal and sagittal reformatted images were created and reviewed. CONTRAST MATERIAL: Noncontrast COMPARISON: CR XR PORTABLE CHEST AP from 01/18/2023 CR XR PORTABLE CHEST AP from 02/09/2023 FINDINGS: Pulmonary parenchyma: No consolidation. No nodules. Emphysema: None. Tracheobronchial tree: No mucous plugging. No bronchiectasis . Interstitial changes: None. Pleura: No effusion or pneumothorax. The density thought to represent an effusion on the chest x-ray corresponds to prominent anterior fat pad. Heart: The heart is mildly dilated, left ventricle.. The coronary arteries show mildcalcifications. No pericardial effusion. Aorta: Thoracic aorta non-dilated. Minimal atherosclerotic changes. Lymph nodes: No enlarged lymph nodes. Bones: In mild degenerative changes are seen. No evidence of compression fracture. Soft tissues: Unremarkable. Abdomen pelvis: The liver, gallbladder, spleen, pancreas, kidneys and adrenals are unremarkable. The bladder is decompressed by a Benedict catheter. The prostate is quite enlarged. No bowel dilatation or inflammatory changes. The appendix appears normal. Normal quantity of stool. Soft tissues: Bilateral fatty containing inguinal hernia is, large on the left. The aorta is normal in diameter. Mild atherosclerotic changes. Bones: Degenerative changes, unremarkable for age. IMPRESSION: No acute abnormality in the chest abdomen or pelvis. Markedly enlarged prostate. Bladder not evaluated. Bilateral fatty containing inguinal hernias, larger on the left.. Lab Data Lab results reviewed: Yes I reviewed the patient's lab results. Labs: 02/09/23 13:43 Urine - Reflex from Ua Urine Culture - Pending Laboratory Tests Range/Units 02/09/23 02/09/23 02/09/23 12:32 12:32 13:43 WBC (4.4-10.8) 10^3/uL 6.92 RBC (4.36-5.78) 10^6/uL 4.14 L Hgb (13.5-17.5) g/dL 12.7 L Hct (40.0-50.0) % 36.5 L MCV (80-95) fL 88 MCH (27.0-33.0) pg 30.7 MCHC (32.0-36.0) % 34.8 RDW (11.8-14.1) % 13.0 Plt Count (130-400) 10^3/uL 198 MPV (8.0-11.0) fL 12.6 H Immature Gran % 0.3 Neutrophils % 77.6 Lymphocytes % 11.8 Monocytes % 8.1 Eosinophils % 1.6 Basophils % 0.6 Nucleated RBC % (0.0-0.3) % 0.0 Absolute Neutrophils (1.2-6.7) 10^3/uL 5.37 Absolute Lymphocytes (1.2-3.4) 10^3/uL 0.82 L Absolute Monocytes (0.1-0.8) 10^3/uL 0.56 Absolute Eosinophils (0.0-0.7) 10^3/uL 0.11 Absolute Basophils (0.0-0.2) 10^3/uL 0.04 VBG pH (7.31-7.41) VBG pCO2 (41-51) mmHg VBG pO2 mmHg VBG HCO3 (23-28) mmol/L VBG Total CO2 (24-29) mmol/L VBG O2 Saturation % VBG Base Excess (-2-3) mmol/L Sodium (136-145) mmol/L 137 Potassium (3.5-5.1) mmol/L 4.4 Chloride (98-107) mmol/L 103 Carbon Dioxide (21.0-32.0) mmol/L 21.5 Anion Gap (3-11) mmol/L 12.5 H BUN (7-18) mg/dL 59 H Creatinine (0.70-1.30) mg/dL 4.8 H* Est GFR (CKD-EPI 2020) (mL/min/1.73m2) 12.48 Glucose (74-106) mg/dL 207 H Calcium (8.5-10.1) mg/dL 9.5 Magnesium (1.8-2.4) mg/dL 1.9 Total Bilirubin (0.2-1.0) mg/dL 0.8 AST (15-37) U/L 17 ALT (16-63) U/L 31 Alkaline Phosphatase (46-116) U/L 112 Troponin I (<or=60) ng/L < 50 NT-Pro-B Natriuret Pep (<300) pg/mL 7087 H Total Protein (6.4-8.2) g/dL 7.7 Albumin (3.4-5.0) g/dL 3.8 Lipase (16-77) U/L Urine Color (Yellow) Yellow Urine Clarity (Clear) Clear Urine pH (5-8) 5.5 Ur Specific [place] (1.005-1.025) 1.020 Urine Protein (Negative) mg/dL 100 H Urine Ketones (Negative) mg/dL Negative Urine Blood (Negative) Small H Urine Nitrite (Negative) Negative Urine Bilirubin (Negative) Negative Urine Urobilinogen (Up to 0.2) mg/dL 0.2 Ur Leukocyte Esterase (Negative) Trace H Urine RBC (0-2) HPF 5-10 H Urine WBC (0-5) HPF 3-5 Ur Epithelial Cells (Negative) HPF Rare Urine Crystals (Negative) HPF Negative Urine Bacteria (Negative) HPF Few Urine Casts (Negative) LPF Negative Urine Mucus (Negative) Trace Ur Culture Indicated? Yes Urine Glucose (Negative) mg/dL Negative Add-On Test Request Range/Units 02/09/23 02/09/23 02/09/23 13:46 13:51 13:51 WBC (4.4-10.8) 10^3/uL RBC (4.36-5.78) 10^6/uL Hgb (13.5-17.5) g/dL Hct (40.0-50.0) % MCV (80-95) fL MCH (27.0-33.0) pg MCHC (32.0-36.0) % RDW (11.8-14.1) % Plt Count (130-400) 10^3/uL MPV (8.0-11.0) fL Immature Gran % Neutrophils % Lymphocytes % Monocytes % Eosinophils % Basophils % Nucleated RBC % (0.0-0.3) % Absolute Neutrophils (1.2-6.7) 10^3/uL Absolute Lymphocytes (1.2-3.4) 10^3/uL Absolute Monocytes (0.1-0.8) 10^3/uL Absolute Eosinophils (0.0-0.7) 10^3/uL Absolute Basophils (0.0-0.2) 10^3/uL VBG pH (7.31-7.41) 7.35 VBG pCO2 (41-51) mmHg 36 L VBG pO2 mmHg 37 VBG HCO3 (23-28) mmol/L 20 L VBG Total CO2 (24-29) mmol/L 18 L VBG O2 Saturation % 68 VBG Base Excess (-2-3) mmol/L -6 L Sodium (136-145) mmol/L Potassium (3.5-5.1) mmol/L Chloride (98-107) mmol/L Carbon Dioxide (21.0-32.0) mmol/L Anion Gap (3-11) mmol/L BUN (7-18) mg/dL Creatinine (0.70-1.30) mg/dL Est GFR (CKD-EPI 2020) (mL/min/1.73m2) Glucose (74-106) mg/dL Calcium (8.5-10.1) mg/dL Magnesium (1.8-2.4) mg/dL Total Bilirubin (0.2-1.0) mg/dL AST (15-37) U/L ALT (16-63) U/L Alkaline Phosphatase (46-116) U/L Troponin I (<or=60) ng/L NT-Pro-B Natriuret Pep (<300) pg/mL Total Protein (6.4-8.2) g/dL Albumin (3.4-5.0) g/dL Lipase (16-77) U/L 94 H Urine Color (Yellow) Urine Clarity (Clear) Urine pH (5-8) Ur Specific [place] (1.005-1.025) Urine Protein (Negative) mg/dL Urine Ketones (Negative) mg/dL Urine Blood (Negative) Urine Nitrite (Negative) Urine Bilirubin (Negative) Urine Urobilinogen (Up to 0.2) mg/dL Ur Leukocyte Esterase (Negative) Urine RBC (0-2) HPF Urine WBC (0-5) HPF Ur Epithelial Cells (Negative) HPF Urine Crystals (Negative) HPF Urine Bacteria (Negative) HPF Urine Casts (Negative) LPF Urine Mucus (Negative) Ur Culture Indicated? Urine Glucose (Negative) mg/dL Add-On Test Request DONE HPI General Mode of arrival: EMS . Date/Time Provider Initiated Documentation: 02/09/23 12:15 . Limitations to Documentation: no limitations . Information obtained by: patient, EMS, RN notes reviewed and old records reviewed . Related Data Home Medications Medication Instructions Recorded Confirmed albuterol sulfate 90 mcg/actuation 2 puff inhalation QID PRN 08/23/19 01/18/23 aerosol inhaler (ProAir HFA) betamethasone dipropionate 0.05 % 1 applic topical DAILY PRN 08/23/19 01/18/23 topical cream gabapentin 600 mg tablet 1,200 mg PO TID 08/23/19 01/18/23 glipizide 10 mg tablet, extended 20 mg PO DAILY 08/23/19 01/18/23 release 24 hr ketoconazole 2 % topical cream 1 applic topical BID 08/23/19 01/18/23 naloxone 4 mg/actuation nasal 4 mg intranasal Q2-3M PRN 08/23/19 01/18/23 spray (Narcan) nitroglycerin 0.4 mg sublingual 0.4 mg sublingual Q5M PRN 08/23/19 01/18/23 tablet (Nitrostat) triamcinolone acetonide 0.1 % 1 applic topical TID PRN 08/23/19 01/18/23 topical cream ibuprofen 200 mg tablet 200 mg PO Q8H 09/18/19 01/18/23 atorvastatin 40 mg tablet 40 mg PO QHS 02/05/23 finasteride 5 mg tablet 5 mg PO DAILY 02/05/23 02/09/23 gabapentin 100 mg capsule 100 mg PO TID 02/05/23 losartan 25 mg tablet 12.5 mg PO DAILY 02/05/23 metoprolol succinate 25 mg 25 mg PO DAILY 02/05/23 tablet,extended release 24 hr naproxen sodium 220 mg tablet 440 mg PO Q8H PRN 02/05/23 (Aleve) olanzapine 10 mg tablet 10 mg PO QHS 02/05/23 tamsulosin 0.4 mg capsule (Flomax) 0.8 mg PO QHS 02/05/23 02/09/23 Allergies Allergy/AdvReac Type Severity Reaction Status Date / Time No Known Allergies Allergy Unverified 02/09/23 12:09 General Stated Complaint: SOB [place]: 3 Review of Systems All systems reviewed & are unremarkable except as noted in HPI and below Constitutional Constitutional: Reports as per HPI, Reports lethargy and Reports weakness Cardiovascular Cardiovascular: Denies chest pain, Denies pedal edema, Denies leg edema, Reports dyspnea and Reports orthopnea Respiratory Respiratory: Reports dyspnea Gastrointestinal Gastrointestinal: Reports abdominal pain, Denies diarrhea, Reports nausea and Denies vomiting Neurologic Neurologic: Reports weakness Psychiatric Psychiatric: Reports as per HPI [facility] All Active Problems (Updated 02/09/23 @ 15:03 by Mimi Cornelius NP) Weakness (Acute) Nonadherence to medication (Acute) CHF (congestive heart failure) (Chronic) Acute exacerbation of congestive heart failure (Acute) CLEM (acute kidney injury) (Acute) Anemia (Chronic) Acute urinary retention (Acute) Heart failure with reduced ejection fraction (Acute) Hypertension (Chronic) Hx of hernia repair (Chronic) Panic attacks (Acute) High cholesterol (Chronic) Eczema (Acute) Depression (Chronic) Schizophrenia (Chronic) Diabetes mellitus type 2 in obese (Acute) Discharge planning issues (Acute) DVT prophylaxis (Acute) CAP (community acquired pneumonia) (Acute) Asthma exacerbation in COPD (Acute) Acute dyspnea (Acute) Social History Smoking/Tobacco Use Status: Never Smoking risk assessment performed?: Yes Alcohol Intake: never Drug use: Never Substance use type: does not use Housing: apartment What type of physical activity do you participate in: none Do you feel safe at home: Yes Do you feel safe in your relationship?: Yes Exam Narrative Exam Narrative: Constitutional: Alert and oriented x3. Appears stated age. Obese body habitus. Appears chronically ill. Head: Normocephalic, no trauma. Eyes: Pupils PERRL, Red reflex noted, EOM's intact. Eyelids symmetrical without lesions, discharge, or swelling. Chest: RRR, Normal S1, S2, distal pulses intact. No audible murmurs rubs or gallops. Resp: Lungs diminished to auscultation bilaterally, no obvious wheezes, rales, or rhonchi. Abdomen: Soft, non-distended, obese body habitus, there are some various healing puncture wounds noted to abdominal wall from presumed recent admission. Normoactive bowel sounds all 4 quads. Slightly tender with palpation in the left lower quadrant. : Indwelling Benedict catheter in place with clear urine output. Musculoskeletal: Unable to assess gait 3/5 strength to all four extremities. Skin: No suspicious rashes or lesions. Capillary refill less than 2 sec. Neurologic: Cranial nerves II-XII intact. Alert and oriented x 3. Motor: No deficits noted. Sensory: Intact bilaterally all 4 extremities. Hematologic/Lymphatic: No ecchymosis, no lymphadenopathy. No lower extremity pitting edema noted. Course Vital Signs Vital signs: Vital Signs Temperature 36.4 C 02/09/23 12:05 Pulse 94 H 02/09/23 12:05 Respiratory Rate 20 02/09/23 12:05 Blood Pressure 174/103 H 02/09/23 12:05 Pulse Oximetry 97 02/09/23 12:05 Temperature 36.4 C 02/09/23 12:05 Temperature Source Oral 02/09/23 12:05 Pulse 94 H 02/09/23 12:05 Respiratory Rate 20 02/09/23 12:05 Blood Pressure 174/103 H 02/09/23 12:05 Blood Pressure Position Sitting 02/09/23 12:05 Pulse Oximetry 97 02/09/23 12:05 Oxygen Delivery Method Room Air 02/09/23 12:05 Oxygen Flow Rate 0 02/09/23 12:05 Pain Level 0 02/09/23 12:05 Lab/Test Results Lab/Test Results: Laboratory Tests Range/Units 02/09/23 02/09/23 12:32 12:32 WBC (4.4-10.8) 10^3/uL 6.92 RBC (4.36-5.78) 10^6/uL 4.14 L Hgb (13.5-17.5) g/dL 12.7 L Hct (40.0-50.0) % 36.5 L MCV (80-95) fL 88 MCH (27.0-33.0) pg 30.7 MCHC (32.0-36.0) % 34.8 RDW (11.8-14.1) % 13.0 Plt Count (130-400) 10^3/uL 198 MPV (8.0-11.0) fL 12.6 H Immature Gran % 0.3 Neutrophils % 77.6 Lymphocytes % 11.8 Monocytes % 8.1 Eosinophils % 1.6 Basophils % 0.6 Nucleated RBC % (0.0-0.3) % 0.0 Absolute Neutrophils (1.2-6.7) 10^3/uL 5.37 Absolute Lymphocytes (1.2-3.4) 10^3/uL 0.82 L Absolute Monocytes (0.1-0.8) 10^3/uL 0.56 Absolute Eosinophils (0.0-0.7) 10^3/uL 0.11 Absolute Basophils (0.0-0.2) 10^3/uL 0.04 Sodium (136-145) mmol/L 137 Potassium (3.5-5.1) mmol/L 4.4 Chloride (98-107) mmol/L 103 Carbon Dioxide (21.0-32.0) mmol/L 21.5 Anion Gap (3-11) mmol/L 12.5 H BUN (7-18) mg/dL 59 H Creatinine (0.70-1.30) mg/dL 4.8 H* Est GFR (CKD-EPI 2020) (mL/min/1.73m2) 12.48 Glucose (74-106) mg/dL 207 H Calcium (8.5-10.1) mg/dL 9.5 Magnesium (1.8-2.4) mg/dL 1.9 Total Bilirubin (0.2-1.0) mg/dL 0.8 AST (15-37) U/L 17 ALT (16-63) U/L 31 Alkaline Phosphatase (46-116) U/L 112 Troponin I (<or=60) ng/L < 50 NT-Pro-B Natriuret Pep (<300) pg/mL 7087 H Total Protein (6.4-8.2) g/dL 7.7 Albumin (3.4-5.0) g/dL 3.8
--- NOTE | 2023-02-09 13:45 | DI.CT_ITS ---
Exam(s) CT CHEST/ABD/PEL WO EXAM: CT CHEST/ABD/PEL WO CLINICAL HISTORY: SOB, Vomiting. TECHNIQUE: Imaging protocol: Axial computed tomography images were obtained and coronal and sagittal reformatted images were created and reviewed. CONTRAST MATERIAL: Noncontrast COMPARISON: CR XR PORTABLE CHEST AP from 01/18/2023 CR XR PORTABLE CHEST AP from 02/09/2023 FINDINGS: Pulmonary parenchyma: No consolidation. No nodules. Emphysema: None. Tracheobronchial tree: No mucous plugging. No bronchiectasis . Interstitial changes: None. Pleura: No effusion or pneumothorax. The density thought to represent an effusion on the chest x-ra y corresponds to prominent anterior fat pad. Heart: The heart is mildly dilated, left ventricle.. The coronary arteries show mildcalcifications. No pericardial effusion. Aorta: Thoracic aorta non-dilated. Minimal atherosclerotic changes. Lymph nodes: No enlarged lymph nodes. Bones: In mild degenerative changes are seen. No evidence of compression fracture. Soft tissues: Unremarkable. Abdomen pelvis: The liver, gallbladder, spleen, pancreas, kidneys and adrenals are unremarkable. The bladder is decompressed by a Benedict catheter. The prostate is quite enlarged. No bowel dilatation or inflammatory changes. The appendix appears normal. Normal quantity of stool. Soft tissues: Bilateral fatty containing inguinal hernia is, large on the left. The aorta is normal in diameter. Mild atherosclerotic changes. Bones: Degenerative changes, unremarkable for age. IMPRESSION: No acute abnormality in the chest abdomen or pelvis. Markedly enlarged prostate. Bladder not evaluated. Bilateral fatty containing inguinal hernias, larger on the left.. RADIATION DOSE DELIVERED: 1,477.83mGy.cm Total DLP 1,477.83mGy.cm Total DLP DATA REPOSITORY: All CT scans at this facility are submitted to the National Radiology Data Registry (NRDR) Dose Index Registry (DIR) with the [employer] ([employer]). RADIATION OPTIMIZATION: All CT scans at this facility use at least one of these dose optimization te chniques: automated exposure control; mA and/or kV adjustment per patient size (includes targeted exa ms where dose is matched to clinical indication); or iterative reconstruction.
[2023-02-09 13:55] LABS: Bilirubin Negative (Negative); Blood Small (Negative); Clarity Clear (Clear); Glucose Negative (Negative); Ketones Negative (Negative); Leukocyte Esterase Trace (Negative); Nitrite Negative (Negative); Urobilinogen 0.2 mg/dL (Up to 0.2); pH 5.5 (5-8)
[2023-02-09 14:00] LABS: BE (Venous) -6 mmol/L (-2-3); HCO3 (Venous) 20 mmol/L (23-28); O2 Sat (Venous) 68 %; TCO2 (Venous) 18 mmol/L (24-29); pCO2 (Venous) 36 mmHg (41-51); pH (Venous) 7.35 (7.31-7.41); pO2 (Venous) 37 mmHg
[2023-02-09 14:01] LABS: Lab Add On Test DONE
[2023-02-09 14:04] LABS: Bacteria Few HPF (Negative); C & S Indicated? Yes; Casts Negative LPF (Negative); Crystals Negative HPF (Negative); Epithelial Cells Rare HPF (Negative); Mucus Trace (Negative)
[2023-02-09] MEDS: Metoprolol CR 25 MG TABCR PO (14:13)
[2023-02-09 14:15] LABS: Lipase 94 U/L (16-77)
[2023-02-09 15:52] LABS: Troponin I < 50 ng/L (<or=60)
--- NOTE | 2023-02-09 17:13 | HPE_ITS ---
Date of service: 02/09/23 Time of Service: 17:13 Assessment and Plan Assessment and plan (1) Weakness: Status: Acute Assessment and plan: Patient presents with profound weakness. Given his elevated BNP the Was he may be in some element of heart failure. He received 20 mg of Lasix in the ED. Urine output appears to be clear in his Benedict bag. (2) Nonadherence to medication: Status: Acute Assessment and plan: He states he stopped taking his olanzapine because he thought it was making his kidneys worse. He said it made him tired. The plan is to try to have him start back on olanzapine 10 mg daily. He is followed by Radha Mitchell. (3) Acute exacerbation of congestive heart failure: Status: Acute Assessment and plan: He does not appear to be in heart failure clinically nor by chest x-ray. The BNP is 7087. He is known to have heart failure with reduced ejection fraction. At this point he is satting 99% on room air and lungs are clear. We will just monitor for now. (4) CLEM (acute kidney injury): Status: Acute Assessment and plan: Appears to have an obstructive uropathy. It sounds like he was markedly obstructed back in December and has since had the urine drained via Benedict catheter. He has a markedly enlarged prostate by CT scan and I suspect this is all related to prostatic hypertrophy. Plan is to continue the Benedict catheter drainage and have urology see him in follow-up. (5) Acute urinary retention: Status: Acute Assessment and plan: Presented in acute urinary retention January 18, 2023. He has had Benedict catheter drainage since that time. Creatinine has come down from 6.1-to 4.8. (6) Heart failure with reduced ejection fraction: Status: Acute Assessment and plan: Seen by Dr. Cameron 09/18/2019. At that time he felt this was 4 to 5 years old. He had never had a stress test. Etiology remains unclear. Thought to be ischemic due to his diabetes and age. He was on carvedilol lisinopril and furosemide, all of which have been stopped. EF was 45% at that time. (7) Hypertension: Status: Chronic Assessment and plan: Blood pressure is borderline at 142/83. He is off antihypertensive meds at this time. Given his acute on chronic renal failure we will hold on any nephrotoxic drugs for now. (8) Schizophrenia: Status: Chronic Assessment and plan: He does not appear to be actively hallucinating. He states he has not been taking his olanzapine because it makes him sick and fatigued. We will try starting him back on olanzapine 10 mg daily it is unclear whether he will take it. (9) Diabetes mellitus type 2 in obese: Status: Acute Assessment and plan: Type II diabetic. We will place on diabetic diet, sliding scale insulin, check hemoglobin A1c (10) Discharge planning issues: Status: Acute Assessment and plan: Admitted to observation status. He does not appear to be acutely ill but overall has had a decline in function. We will ask care management to see the patient in have [facility] program check in with him. He may need additional help and support at home. History of Present Illness History of Present Illness Chief Complaint: Shortness of breath/weakness Narrative: 67-year-old male lives alone in an apartment in [facility]. He has schizophrenia but recently has decided to stop taking his olanzapine because it makes him sicker. Upon arrival to the ED he stated to the nurse that he wanted to live at [facility]. [facility] was contacted. Mandi from [employer] [facility] had advised him earlier today that if he could not keep his meds down then he should go to the ED. He presented to the ED today saying he was short of breath and feeling increasingly weak. He was admitted to [facility] recently with a creatinine of 6.1 on 01/18/2023. At that time he was found to have an obstructive uropathy and a Benedict catheter was placed. He has seen Dr. Patterson for urology follow-up and was not felt to be a candidate for a voiding trial because of med noncompliance. Once he had a period off taking the finasteride and tamsulosin for a long period of time then the plan was to consider a voiding trial. He is not due to see Dr. Patterson back until February. Review of Systems Narrative: On review of systems his main complaint was shortness of breath that he feels better in his current position laying in the gurney. He says he has positional nausea and gagging. He has had some retching while at home but has been able to keep his meals down and some of his medications. He states his apartment is a mess. He says there may have been problems with incontinence. He has been a ble to maintain the Benedict catheter for the last few weeks. He has not had any chest pain. Despite his complaint of shortness of breath he is not currently experiencing any dyspnea. He has a mass of abdomen but says its not tender and he is not currently having any nausea. He is mobile and ambulates himself without an assistive device. PFSH All Active Problems (Updated 02/09/23 @ 17:21 by Austin Ponce MD) Weakness (Acute) Nonadherence to medication (Acute) Acute exacerbation of congestive heart failure (Acute) CLEM (acute kidney injury) (Acute) Acute urinary retention (Acute) Heart failure with reduced ejection fraction (Acute) Hypertension (Chronic) Schizophrenia (Chronic) Diabetes mellitus type 2 in obese (Acute) Discharge planning issues (Acute) Medical History (Updated 02/09/23 @ 17:21 by Austin Ponce MD) Acute dyspnea Anemia Asthma exacerbation in COPD CAP (community acquired pneumonia) CHF (congestive heart failure) CHF exacerbation Depression DVT prophylaxis Eczema High cholesterol Panic attacks Surgical History (Updated 02/09/23 @ 17:21 by Austin Ponce MD) Hx of hernia repair Social History Smoking/Tobacco Use Status: Never Smoking risk assessment performed?: Yes Alcohol Intake: never Drug use: Never Substance use type: does not use Housing: apartment What type of physical activity do you participate in: none Do you feel safe at home: Yes Do you feel safe in your relationship?: Yes Meds Allergies and Home Medications Allergies Allergy/AdvReac Type Severity Reaction Status Date / Time No Known Allergies Allergy Unverified 02/09/23 12:09 Home Medications Medication Instructions Recorded Confirmed Type albuterol sulfate 90 mcg/actuation 2 puff inhalation QID PRN 08/23/19 01/18/23 History aerosol inhaler (ProAir HFA) betamethasone dipropionate 0.05 % 1 applic topical DAILY PRN 08/23/19 01/18/23 History topical cream gabapentin 600 mg tablet 1,200 mg PO TID 08/23/19 01/18/23 History glipizide 10 mg tablet, extended 20 mg PO DAILY 08/23/19 01/18/23 History release 24 hr ketoconazole 2 % topical cream 1 applic topical BID 08/23/19 01/18/23 History naloxone 4 mg/actuation nasal 4 mg intranasal Q2-3M PRN 08/23/19 01/18/23 History spray (Narcan) nitroglycerin 0.4 mg sublingual 0.4 mg sublingual Q5M PRN 08/23/19 01/18/23 History tablet (Nitrostat) triamcinolone acetonide 0.1 % 1 applic topical TID PRN 08/23/19 01/18/23 History topical cream ibuprofen 200 mg tablet 200 mg PO Q8H 09/18/19 01/18/23 History atorvastatin 40 mg tablet 40 mg PO QHS 02/05/23 History finasteride 5 mg tablet 5 mg PO DAILY 02/05/23 02/09/23 History gabapentin 100 mg capsule 100 mg PO TID 02/05/23 History losartan 25 mg tablet 12.5 mg PO DAILY 02/05/23 History metoprolol succinate 25 mg 25 mg PO DAILY 02/05/23 History tablet,extended release 24 hr naproxen sodium 220 mg tablet 440 mg PO Q8H PRN 02/05/23 History (Aleve) olanzapine 10 mg tablet 10 mg PO QHS 02/05/23 History tamsulosin 0.4 mg capsule (Flomax) 0.8 mg PO QHS 02/05/23 02/09/23 History Exam Narrative Exam Narrative: On exam he is quite massively obese with a very full and redundant neck tissue. He is alert and his speech is clear. He is able to give me somewhat of a clear history though convoluted. It does seem what he tells me is accurate. He is oriented to name time and place. He showed no facial asymmetry. His lung exam was completely clear on the right and left. Heart sounds were quite muffled I cannot appreciate any murmur. His abdomen was massively obese very soft and flabby. There were no masses palpable and no areas appear to be tender to palpation. 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 The lower extremities notable for no significant edema. Both lower extremities appear to be well perfused. Neurologically there did not appear to be focal deficits. Results Imaging Chest x-ray: report reviewed (Clear) Abdomen CT scan report/results: report reviewed (Enlarged prostate, bilateral inguinal hernias left greater than right) Labs 02/09/23 12:32 02/09/23 12:32 Labs: Laboratory Results - last 24 hr 02/09/23 02/09/23 02/09/23 12:32 12:32 13:43 WBC 6.92 RBC 4.14 L Hgb 12.7 L Hct 36.5 L MCV 88 MCH 30.7 MCHC 34.8 RDW 13.0 Plt Count 198 MPV 12.6 H Immature Gran % 0.3 Neutrophils % 77.6 Lymphocytes % 11.8 Monocytes % 8.1 Eosinophils % 1.6 Basophils % 0.6 Nucleated RBC % 0.0 Absolute Neutrophils 5.37 Absolute Lymphocytes 0.82 L Absolute Monocytes 0.56 Absolute Eosinophils 0.11 Absolute Basophils 0.04 VBG pH VBG pCO2 VBG pO2 VBG HCO3 VBG Total CO2 VBG O2 Saturation VBG Base Excess Sodium 137 Potassium 4.4 Chloride 103 Carbon Dioxide 21.5 Anion Gap 12.5 H BUN 59 H Creatinine 4.8 H* Est GFR (CKD-EPI 2020) 12.48 Glucose 207 H Calcium 9.5 Magnesium 1.9 Total Bilirubin 0.8 AST 17 ALT 31 Alkaline Phosphatase 112 Troponin I < 50 NT-Pro-B Natriuret Pep 7087 H Total Protein 7.7 Albumin 3.8 Lipase Urine Color Yellow Urine Clarity Clear Urine pH 5.5 Ur Specific [place] 1.020 Urine Protein 100 H Urine Ketones Negative Urine Blood Small H Urine Nitrite Negative Urine Bilirubin Negative Urine Urobilinogen 0.2 Ur Leukocyte Esterase Trace H Urine RBC 5-10 H Urine WBC 3-5 Ur Epithelial Cells Rare Urine Crystals Negative Urine Bacteria Few Urine Casts Negative Urine Mucus Trace Ur Culture Indicated? Yes Urine Glucose Negative Add-On Test Request 02/09/23 02/09/23 02/09/23 13:46 13:51 13:51 WBC RBC Hgb Hct MCV MCH MCHC RDW Plt Count MPV Immature Gran % Neutrophils % Lymphocytes % Monocytes % Eosinophils % Basophils % Nucleated RBC % Absolute Neutrophils Absolute Lymphocytes Absolute Monocytes Absolute Eosinophils Absolute Basophils VBG pH 7.35 VBG pCO2 36 L VBG pO2 37 VBG HCO3 20 L VBG Total CO2 18 L VBG O2 Saturation 68 VBG Base Excess -6 L Sodium Potassium Chloride Carbon Dioxide Anion Gap BUN Creatinine Est GFR (CKD-EPI 2020) Glucose Calcium Magnesium Total Bilirubin AST ALT Alkaline Phosphatase Troponin I NT-Pro-B Natriuret Pep Total Protein Albumin Lipase 94 H Urine Color Urine Clarity Urine pH Ur Specific [place] Urine Protein Urine Ketones Urine Blood Urine Nitrite Urine Bilirubin Urine Urobilinogen Ur Leukocyte Esterase Urine RBC Urine WBC Ur Epithelial Cells Urine Crystals Urine Bacteria Urine Casts Urine Mucus Ur Culture Indicated? Urine Glucose Add-On Test Request DONE 02/09/23 15:22 WBC RBC Hgb Hct MCV MCH MCHC RDW Plt Count MPV Immature Gran % Neutrophils % Lymphocytes % Monocytes % Eosinophils % Basophils % Nucleated RBC % Absolute Neutrophils Absolute Lymphocytes Absolute Monocytes Absolute Eosinophils Absolute Basophils VBG pH VBG pCO2 VBG pO2 VBG HCO3 VBG Total CO2 VBG O2 Saturation VBG Base Excess Sodium Potassium Chloride Carbon Dioxide Anion Gap BUN Creatinine Est GFR (CKD-EPI 2020) Glucose Calcium Magnesium Total Bilirubin AST ALT Alkaline Phosphatase Troponin I < 50 NT-Pro-B Natriuret Pep Total Protein Albumin Lipase Urine Color Urine Clarity Urine pH Ur Specific [place] Urine Protein Urine Ketones Urine Blood Urine Nitrite Urine Bilirubin Urine Urobilinogen Ur Leukocyte Esterase Urine RBC Urine WBC Ur Epithelial Cells Urine Crystals Urine Bacteria Urine Casts Urine Mucus Ur Culture Indicated? Urine Glucose Add-On Test Request Last Vital Signs Temp 36.4 C 02/09/23 12:05 Pulse 70 02/09/23 16:31 Resp 15 02/09/23 16:31 BP 142/83 H 02/09/23 16:31 Pulse Ox 97 02/09/23 16:31 PAWSS Pt Consumed Any Amount of Alcohol Within the Last 30 days OR had positive HECTOR Upon Admission: No Time Spent Time spent with Patient: 55-74 minutes Time was spent: preparing to see the patient(eg.review tests), obtaining and/or reviewing separately otained hiistory, ordering medications,tests, procedures, referring, communicating with other health cardiac care unit nurse, indepentently interpreting results, counseling the patient and care coordination
[2023-02-09] MEDS: Insulin Aspart 300 UNITS/3 ML PEN SC (18:02)
--- NOTE | 2023-02-09 18:14 | HPE_ITS ---
Date of service: 02/09/23 Time of Service: 18:14 [facility] All Active Problems (Updated 02/09/23 @ 17:21 by Austin Ponce MD) Weakness (Acute) Nonadherence to medication (Acute) Acute exacerbation of congestive heart failure (Acute) CLEM (acute kidney injury) (Acute) Acute urinary retention (Acute) Heart failure with reduced ejection fraction (Acute) Hypertension (Chronic) Schizophrenia (Chronic) Diabetes mellitus type 2 in obese (Acute) Discharge planning issues (Acute) Medical History (Updated 02/09/23 @ 17:21 by Austin Ponce MD) Acute dyspnea Anemia Asthma exacerbation in COPD CAP (community acquired pneumonia) CHF (congestive heart failure) CHF exacerbation Depression DVT prophylaxis Eczema High cholesterol Panic attacks Surgical History (Updated 02/09/23 @ 17:21 by Austin Ponce MD) Hx of hernia repair Social History Smoking/Tobacco Use Status: Never Smoking risk assessment performed?: Yes Alcohol Intake: never Drug use: Never Substance use type: does not use Housing: apartment What type of physical activity do you participate in: none Do you feel safe at home: Yes Do you feel safe in your relationship?: Yes Meds Allergies and Home Medications Allergies Allergy/AdvReac Type Severity Reaction Status Date / Time No Known Allergies Allergy Unverified 02/09/23 12:09 Home Medications Medication Instructions Recorded Confirmed Type albuterol sulfate 90 mcg/actuation 2 puff inhalation QID PRN 08/23/19 01/18/23 History aerosol inhaler (ProAir HFA) betamethasone dipropionate 0.05 % 1 applic topical DAILY PRN 08/23/19 01/18/23 History topical cream gabapentin 600 mg tablet 1,200 mg PO TID 08/23/19 01/18/23 History glipizide 10 mg tablet, extended 20 mg PO DAILY 08/23/19 01/18/23 History release 24 hr ketoconazole 2 % topical cream 1 applic topical BID 08/23/19 01/18/23 History naloxone 4 mg/actuation nasal 4 mg intranasal Q2-3M PRN 08/23/19 01/18/23 History spray (Narcan) nitroglycerin 0.4 mg sublingual 0.4 mg sublingual Q5M PRN 08/23/19 01/18/23 History tablet (Nitrostat) triamcinolone acetonide 0.1 % 1 applic topical TID PRN 08/23/19 01/18/23 History topical cream ibuprofen 200 mg tablet 200 mg PO Q8H 09/18/19 01/18/23 History atorvastatin 40 mg tablet 40 mg PO QHS 02/05/23 History finasteride 5 mg tablet 5 mg PO DAILY 02/05/23 02/09/23 History gabapentin 100 mg capsule 100 mg PO TID 02/05/23 History losartan 25 mg tablet 12.5 mg PO DAILY 02/05/23 History metoprolol succinate 25 mg 25 mg PO DAILY 02/05/23 History tablet,extended release 24 hr naproxen sodium 220 mg tablet 440 mg PO Q8H PRN 02/05/23 History (Aleve) olanzapine 10 mg tablet 10 mg PO QHS 02/05/23 History tamsulosin 0.4 mg capsule (Flomax) 0.8 mg PO QHS 02/05/23 02/09/23 History Results Labs 02/09/23 12:32 02/09/23 12:32 Labs: Laboratory Results - last 24 hr 02/09/23 02/09/23 02/09/23 12:32 12:32 13:43 WBC 6.92 RBC 4.14 L Hgb 12.7 L Hct 36.5 L MCV 88 MCH 30.7 MCHC 34.8 RDW 13.0 Plt Count 198 MPV 12.6 H Immature Gran % 0.3 Neutrophils % 77.6 Lymphocytes % 11.8 Monocytes % 8.1 Eosinophils % 1.6 Basophils % 0.6 Nucleated RBC % 0.0 Absolute Neutrophils 5.37 Absolute Lymphocytes 0.82 L Absolute Monocytes 0.56 Absolute Eosinophils 0.11 Absolute Basophils 0.04 VBG pH VBG pCO2 VBG pO2 VBG HCO3 VBG Total CO2 VBG O2 Saturation VBG Base Excess Sodium 137 Potassium 4.4 Chloride 103 Carbon Dioxide 21.5 Anion Gap 12.5 H BUN 59 H Creatinine 4.8 H* Est GFR (CKD-EPI 2020) 12.48 Glucose 207 H Calcium 9.5 Magnesium 1.9 Total Bilirubin 0.8 AST 17 ALT 31 Alkaline Phosphatase 112 Troponin I < 50 NT-Pro-B Natriuret Pep 7087 H Total Protein 7.7 Albumin 3.8 Lipase Urine Color Yellow Urine Clarity Clear Urine pH 5.5 Ur Specific [place] 1.020 Urine Protein 100 H Urine Ketones Negative Urine Blood Small H Urine Nitrite Negative Urine Bilirubin Negative Urine Urobilinogen 0.2 Ur Leukocyte Esterase Trace H Urine RBC 5-10 H Urine WBC 3-5 Ur Epithelial Cells Rare Urine Crystals Negative Urine Bacteria Few Urine Casts Negative Urine Mucus Trace Ur Culture Indicated? Yes Urine Glucose Negative Add-On Test Request 02/09/23 02/09/23 02/09/23 13:46 13:51 13:51 WBC RBC Hgb Hct MCV MCH MCHC RDW Plt Count MPV Immature Gran % Neutrophils % Lymphocytes % Monocytes % Eosinophils % Basophils % Nucleated RBC % Absolute Neutrophils Absolute Lymphocytes Absolute Monocytes Absolute Eosinophils Absolute Basophils VBG pH 7.35 VBG pCO2 36 L VBG pO2 37 VBG HCO3 20 L VBG Total CO2 18 L VBG O2 Saturation 68 VBG Base Excess -6 L Sodium Potassium Chloride Carbon Dioxide Anion Gap BUN Creatinine Est GFR (CKD-EPI 2020) Glucose Calcium Magnesium Total Bilirubin AST ALT Alkaline Phosphatase Troponin I NT-Pro-B Natriuret Pep Total Protein Albumin Lipase 94 H Urine Color Urine Clarity Urine pH Ur Specific [place] Urine Protein Urine Ketones Urine Blood Urine Nitrite Urine Bilirubin Urine Urobilinogen Ur Leukocyte Esterase Urine RBC Urine WBC Ur Epithelial Cells Urine Crystals Urine Bacteria Urine Casts Urine Mucus Ur Culture Indicated? Urine Glucose Add-On Test Request DONE 02/09/23 15:22 WBC RBC Hgb Hct MCV MCH MCHC RDW Plt Count MPV Immature Gran % Neutrophils % Lymphocytes % Monocytes % Eosinophils % Basophils % Nucleated RBC % Absolute Neutrophils Absolute Lymphocytes Absolute Monocytes Absolute Eosinophils Absolute Basophils VBG pH VBG pCO2 VBG pO2 VBG HCO3 VBG Total CO2 VBG O2 Saturation VBG Base Excess Sodium Potassium Chloride Carbon Dioxide Anion Gap BUN Creatinine Est GFR (CKD-EPI 2020) Glucose Calcium Magnesium Total Bilirubin AST ALT Alkaline Phosphatase Troponin I < 50 NT-Pro-B Natriuret Pep Total Protein Albumin Lipase Urine Color Urine Clarity Urine pH Ur Specific [place] Urine Protein Urine Ketones Urine Blood Urine Nitrite Urine Bilirubin Urine Urobilinogen Ur Leukocyte Esterase Urine RBC Urine WBC Ur Epithelial Cells Urine Crystals Urine Bacteria Urine Casts Urine Mucus Ur Culture Indicated? Urine Glucose Add-On Test Request Last Vital Signs Temp 36.1 C L 02/09/23 17:13 Pulse 87 02/09/23 17:56 Resp 15 02/09/23 17:15 BP 142/83 H 02/09/23 17:15 Pulse Ox 97 02/09/23 17:15 PAWSS Pt Consumed Any Amount of Alcohol Within the Last 30 days OR had positive HECTOR Upon Admission: No
[2023-02-09] MEDS: Enoxaparin 30 MG/0.3 ML SYR SC (18:36)
--- NOTE | 2023-02-09 20:50 | NUR.NOTE ---
Interdry applied to the patients groin. x2 pieces end note. Nursing Note:
[2023-02-09] MEDS: Tamsulosin 0.4 MG CAPCR 0.8 MG PO (21:04)
[2023-02-09] MEDS: Finasteride 5 MG TAB PO (21:06)
--- NOTE | 2023-02-09 21:12 | NUR.NOTE ---
Pt refused evening olanzapine 10mg PO. he reports it makes him too drowsy. tablet after opening, placed in the med/surge medication waste bin container. Nursing Note:
[2023-02-10] VITALS (8 sets, daily range): BP systolic 118–150; BP diastolic 72–99; PULSE 75–85; RESP 16–18; TEMP 35.9–36.6; O2SAT 98
[2023-02-10 07:11] LABS: Abs Immature Grans 0.01 10^3/uL (0.0-0.06); Absolute Basophil Count 0.04 10^3/uL (0.0-0.2); Absolute Eosinophil Count 0.15 10^3/uL (0.0-0.7); Absolute Lymphocyte Count 1.02 10^3/uL (1.2-3.4); Absolute Neutrophil Count 4.75 10^3/uL (1.2-6.7); Basophils % 0.6; Eosinophils % 2.3; HCT 35.1 % (40.0-50.0); HGB 12.3 g/dL (13.5-17.5); Immature Grans % 0.2; Lymphocytes % 15.5; MCV 88 fL (80-95); MPV 12.6 fL (8.0-11.0); Monocytes % 9.1; Neutrophils % 72.3; Platelet Count 166 10^3/uL (130-400); RBC 3.97 10^6/uL (4.36-5.78); RDW-SD 42.4 fL; WBC 6.57 10^3/uL (4.4-10.8)
[2023-02-10 07:28] LABS: Anion Gap 11.7 mmol/L (3-11); BUN 59 mg/dL (7-18); CO2 21.3 mmol/L (21.0-32.0); Calcium 9.2 mg/dL (8.5-10.1); Chloride 106 mmol/L (98-107); Estimated GFR 13.49 (mL/min/1.73m2); Glucose 157 mg/dL (74-106); Potassium 4.5 mmol/L (3.5-5.1); Sodium 139 mmol/L (136-145)
[2023-02-10 07:33] LABS: CREATININE 4.5 mg/dL (0.70-1.30)
[2023-02-10] MEDS: Insulin Aspart 300 UNITS/3 ML PEN SC ×3 (08:55→17:39)
--- NOTE | 2023-02-10 09:47 | INITIAL_ITS ---
Date of service: 02/10/23 Time of Service: 09:47 Care Management Initial Assmt Initial Assessment REASON FOR HOSPITALIZATION:: CHF, weakness, orthopnea PREVIOUS FUNCTIONAL STATUS/SOCIAL/FAMILY SUPPORTS:: Miguel lives in a [facility] apartment in [facility]. 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 He has a WAREHOUSE TEAM MEMBER caseworker intake who follows him in the community. He is independent with his ADL's at baseline. CURRENT FUNCTIONAL STATUS:: Miguel was sitting up in his chair when CM met with him. He reported that he is doing ok today. He expressed concerns about his home, as he states that it is very messy, and he needs support with cleaning it, because he has been too weak to keep up with his enterprise resource analyst recently. CM will send a referral to [facility], as well as one to [employer], to support him with a [employer] application in the community. Per report, he is not taking his psych meds while here, although he is agreeing to taking his other meds. CM contacted [facility], and spoke to Mandi, as Randa was not available. Mandi noted that he does not have daily med drops currently, and reported that they should be able to initiate that service, as he is already on WAREHOUSE TEAM MEMBER. Mandi stated that Miguel has expressed a desire to return [place] [facility] so he may be intentionally not taking his meds in an attempt to return. CM discussed this with MD, who recommended a mental health evaluation, as his behavior may represent a decompensation in his schizophrenia. CM contacted [facility] regarding this, and will plan to meet with him tomorrow. CM will continue to follow. ADVANCE DIRECTIVES:: Not on file; CM will offer forms. Has patient been provided with info about the portal/API?: Yes Did the patient sign up for the portal?: No CODE STATUS:: Full Code INSURANCE COVERAGE / FINANCIAL ISSUES:: MCR/STEPHANIE CURRENT HOME/COMMUNITY SERVICES/EQUIPMENT:: WAREHOUSE TEAM MEMBER case management PRIMARY CARE PHYSICIAN:: Per WAREHOUSE TEAM MEMBER, [facility] is where he receives primary care. POTENTIAL DISCHARGE NEEDS:: Evaluations for further needs, follow up appoin tments. PATIENT/FAMILY EDUCATION NEEDS:: Review discharge instructions and limitations, discussion of self care needs including ask me three. ANTICIPATED BARRIERS TO DISCHARGE:: None identified. TRANSPORTATION:: Via private vehicle by [facility] supports. PLAN:: Anticipate Miguel will return home when medically cleared, with a resumption of his WAREHOUSE TEAM MEMBER supports. He will be driven home via private vehicle by [facility] staff. He will follow up with his PCP and discharge plan of care. CM will continue to follow. PFSH All Active Problems (Updated 02/09/23 @ 17:21 by Austin Ponce MD) Weakness (Acute) Nonadherence to medication (Acute) Acute exacerbation of congestive heart failure (Acute) CLEM (acute kidney injury) (Acute) Acute urinary retention (Acute) Heart failure with reduced ejection fraction (Acute) Hypertension (Chronic) Schizophrenia (Chronic) Diabetes mellitus type 2 in obese (Acute) Discharge planning issues (Acute) Medical History (Updated 02/09/23 @ 17:21 by Austin Ponce MD) Acute dyspnea Anemia Asthma exacerbation in COPD CAP (community acquired pneumonia) CHF (congestive heart failure) CHF exacerbation Depression DVT prophylaxis Eczema High cholesterol Panic attacks Surgical History (Updated 02/09/23 @ 17:21 by Austin Ponce MD) Hx of hernia repair Social History Smoking/Tobacco Use Status: Never Smoking risk assessment performed?: Yes Alcohol Intake: never Drug use: Never Substance use type: does not use Housing: apartment What type of physical activity do you participate in: none Do you feel safe at home: Yes Do you feel safe in your relationship?: Yes
[2023-02-10 10:08] LABS: Lab Add On Test DONE
[2023-02-10 10:22] LABS: Creatine Kinase 69 U/L (39-308)
[2023-02-10 12:52] LABS: Creatinine,Urine 162.22 mg/dL
--- NOTE | 2023-02-10 16:22 | PT.INIE ---
PT Notes Visit Reasons: Weakness, CHF, Orthopnea Inpatient Physical Therapy Evaluation Date: 02/10/2023 Referring Doctor: Dennise Gonzalez PT Orders: PT CONSULT: Limited ability Precautions: standard Patient Profile/Admitting Diagnosis: Miguel is a 67 yo male presented to the ED via EMS with a chief complaint of shortness of breath and gagging when lying down on 02/09/2023.? He reported this was worsening over the last week.?He has PMHX: []Past medical history includes but not limited to asthma exacerbation COPD, CHF, pneumonia, type 2 diabetes, obesity, schizophrenia depression and, urinary retention, acute kidney injury anemia.All Active Problems?(Updated 02/09/23 @ 17:21 by Austin Ponec MD) Weakness (Acute) Nonadherence to medication (Acute) Acute exacerbation of congestive heart failure (Acute) CLEM (acute kidney injury) (Acute) Acute urinary retention (Acute) Heart failure with reduced ejection fraction (Acute) Hypertension (Chronic) Schizophrenia (Chronic) Diabetes mellitus type 2 in obese (Acute) Discharge planning issues (Acute) Medical History?(Updated 02/09/23 @ 17:21 by Austin Ponce MD) Acute dyspnea Anemia Asthma exacerbation in COPD CAP (community acquired pneumonia) CHF (congestive heart failure) CHF exacerbation Depression DVT prophylaxis Eczema High cholesterol Panic attacks Surgical History?(Updated 02/09/23 @ 17:21 by Austin Ponce MD) Hx of hernia repair Social History/Home Situation:Lives alone at [facility] [address]. He states that he was at [facility] end of December begining of January for over a week due to kidney failure. He states his home is a 'mess' and in terrible condition and that he cannot clean or manage. He states that he does not have enough energy to cook, clean, unable to step into tub shower so spoinge baths. He has an elevator, does not drive, and states he has no family in the area. Current Functional Limitations: Weakness and lack of endurance, has been ambulating with RW since d/c from [facility]. Equipment Owned/DME: RW Subjective: I've tried to get assistance and no one seems to be able to get me the help that I need. My place is a mess, I cannot move around well due to the catheter Even now I need this emptied it is repulsive (the bag is only 1/4) Objective: General Observation: Sitting in chair. Benedict catheter, legs elevated Mental Status: A and Ox3 Pain: denies any pain ROM: Right Upper Extremity:WFL Left Upper Extremity: WFL Right Lower Extremity: WFL Left Lower Extremity: WFL Strength: Right Upper Extremity: Generally 3/5 Left Upper Extremity: Generally 3/5 Right Lower Extremity: Generally 3/5 Left Lower Extremity: Generally 3/5 Sensation: Intact to light touch throughout Bed Mobility/Transfers: Unable to assess bed mobility however patient reports difficulty with moving in bed due to Benedict catheter. Sit to stand from chair to RW he does struggle with repositioning in the chair but is able to do with supervision with good hand placement. Stand to sit RW to chair with supervision for safety and to manage Benedict catheter. Gait: Ambulates with rolling walker 400 feet with supervision and 3 rest periods of approximately 1 minute, once back in the room he does have fatigue and SOB but is unable to evaluate bed mobility and patient is not interested in doing anything other than sitting back down. He states that he is quite tired fatigued. Balance: Static Sitting: Good Dynamic Sitting: Fair Static Standing: Fair holding onto RW Dynamic Standing: Poor Special Tests: Mobility Limitations Standardized Measure [facility] AM-PAC 6 clicks Basic Mobility Inpatient Short Form: Raw Score: 14 CMS Score: 61.29 Informed Consent/Education: Patient instructed in purpose of PT consult and plan of care. Pt. is encouraged to ambulate with nursing staff with RW. Skilled PT recommended to maximize strength, endurance, mobility and overall function to perform independently as he lives alone. Assessment: Patient is a 67 year old male referred to physical therapy services with the diagnosis of weakness, CLEM, nonadherence to medication, history of CHF. Patient presents with clinical signs and symptoms consistent with weakness, CLEM, nonadherence to medication as demonstrated by the following impairment level findings: General weakness upper and lower body, decreased endurance to participate in activity of housecleaning, cooking , decreased balance and requiring AD for ambulation . Impairments are contributing to the following functional limitations: AMPAC score. Pt. is discouraged with inability to care for himself and unable to take care of his apartment independently. Recommending skilled PT to maximize strength, endurance, mobility and overall function to perform independently as he lives alone. Patient is assessed as a Low 37962 complexity based on the following: History: Complex PMH as outlined above Examination:Multiple systems evaluated as outlined Presentation:changing Decision Making: moderate Goals: Goals X1 week 1. Supine-Sit independent 2. Sit-Supine independent 3. Sit-Stand independent 4. Stand-Sit independent 5. Bed-Chair independent 6. Chair-Bed independent 7. Gait ambulate with least AD safely and independent 8. Stairs able to assess 9. Independent with home exercise program 10. Balance achieved good static and dynamic standing balance and normal static and dynamic sitting balance 11. Improve sufficient endurance to be able to perform ADLs 12. Able to get in and out of tub shower Plan of Care/Treatment Plan: 1-2x/day, 7 days/week x 1 week. Plan of care has been reviewed with the FILTER CHANGER providing the service under Physical Therapy direction. Initiate Physical Therapy intervention for strengthening, bed mobility, transfers, gait, stairs, balance training, use of assistive device. DISCHARGE RECOMMENDATIONS: Home with services PT,OT, home health aide vs SNF for continued rehabilitation depending on progress made with above treatment plan TREATMENT CODE/TIME: 44541 20' 52309 15' Total 35'
[2023-02-10] MEDS: Enoxaparin 30 MG/0.3 ML SYR SC (17:41)
--- NOTE | 2023-02-10 18:26 | W.PM.PROGNOT ---
Date of Service Date of service: 02/10/23 Time of Service: 18:28 Assessment and Plan Assessment and plan (1) Weakness: Status: Acute Assessment and plan: I do not think this is related to fluid status. I have consulted PT and OT. (2) Acute exacerbation of congestive heart failure: Status: Acute Assessment and plan: Euvolemic at this time. LVEF is known to be 45% per prior echos. Will not give diuretics today. (3) Nonadherence to medication: Status: Acute Assessment and plan: Today Mr Sanchez states that he didn't think that olanzapine was helping him and he is not interested in taking it again. He states his prescriber's name is Melissa. I had requested a mental health evaluation to ensure that the patient is safe for discharge into his home environment. He will need follow up with psychiatry. (4) CLEM (acute kidney injury): Status: Acute Assessment and plan: At this point, Cr appears to have stabilized in the 4's. There is no obstructive uropathy by imaging on this admission. Urology consult is pending. Continue alfaro catheter. I have ordered urine for FeUrea. (5) Acute urinary retention: Status: Acute Assessment and plan: S/p alfaro catheter which he has tolerated. Await urology consult. (6) Heart failure with reduced ejection fraction: Status: Acute Assessment and plan: Seen by Dr. Cameron 09/18/2019. At that time he felt this was 4 to 5 years old. He had never had a stress test. Etiology remains unclear. Thought to be ischemic due to his diabetes and age. He was on carvedilol lisinopril and furosemide, all of which have been stopped. EF was 45% at that time. (7) Hypertension: Status: Chronic Assessment and plan: as above (8) Schizophrenia: Status: Chronic Assessment and plan: The patient is refusing olanzapine. I have asked for mental health to evaluate him. (9) Diabetes mellitus type 2 in obese: Status: Acute Assessment and plan: Continue consistent carb diet, sliding scale insulin. A1C is 6.0. (10) Discharge planning issues: Status: Acute Assessment and plan: PT and OT consulted. WALLPAPER EMBOSSER HELPER to help with disposition. He does have home health nursing at home to help with the alfaro catheter. (11) DVT prophylaxis: Status: Acute Assessment and plan: SC enoxaparin Subjective Subjective Interval history since last seen: Mr Sanchez states that he is winded and weak. He denies dizziness, CP, nausea now. States he was dry heaving earlier. Denies constipation and abdominal pain. He is asking more questions about kidney biopsy and states he didn't refuse it, just didn't get around to it. He is not interested in taking antipsychotics because they do not work. Exam Narrative Exam Narrative: General: Pleasant middle-aged male who is A&Ox3, cooperative, no visibly dyspneic/tachypneic HEENT: EOMI, MMM Heart: RRR, no m/r/g Lungs: CTAB Abdomen: soft, nontender, nondistended Extremities: no edema BLEs Objective Last Vital Signs Temp 36.3 C L 02/10/23 15:12 Pulse 78 02/10/23 15:12 Resp 17 02/10/23 15:12 BP 131/79 02/10/23 15:12 Pulse Ox 98 02/10/23 15:12 Laboratory Results - last 24 hr 02/10/23 02/10/23 02/10/23 06:35 06:35 06:35 WBC 6.57 RBC 3.97 L Hgb 12.3 L Hct 35.1 L MCV 88 MCH 31.0 MCHC 35.0 RDW 13.0 Plt Count 166 MPV 12.6 H Immature Gran % 0.2 Neutrophils % 72.3 Lymphocytes % 15.5 Monocytes % 9.1 Eosinophils % 2.3 Basophils % 0.6 Nucleated RBC % 0.0 Absolute Neutrophils 4.75 Absolute Lymphocytes 1.02 L Absolute Monocytes 0.60 Absolute Eosinophils 0.15 Absolute Basophils 0.04 Sodium 139 Potassium 4.5 Chloride 106 Carbon Dioxide 21.3 Anion Gap 11.7 H BUN 59 H Creatinine 4.5 H* Est GFR (CKD-EPI 2020) 13.49 Glucose 157 H Hemoglobin A1c 6.0 H Calcium 9.2 Creatine Kinase Ur Random Creatinine Add-On Test Request 02/10/23 02/10/23 02/10/23 06:35 06:35 11:53 WBC RBC Hgb Hct MCV MCH MCHC RDW Plt Count MPV Immature Gran % Neutrophils % Lymphocytes % Monocytes % Eosinophils % Basophils % Nucleated RBC % Absolute Neutrophils Absolute Lymphocytes Absolute Monocytes Absolute Eosinophils Absolute Basophils Sodium Potassium Chloride Carbon Dioxide Anion Gap BUN Creatinine Est GFR (CKD-EPI 2020) Glucose Hemoglobin A1c Calcium Creatine Kinase 69 Ur Random Creatinine 162.22 Add-On Test Request DONE PAWSS Pt Consumed Any Amount of Alcohol Within the Last 30 days OR had positive HECTOR Upon Admission: No Time Spent with Patient Time Spent with Patient: 25-34 minutes Time was spent: preparing to see the patient(eg.review tests), obtaining and/or reviewing separately otained hiistory, ordering medications,tests, procedures, referring, communicating with other health post acute care nurse, indepentently interpreting results, counseling the patient and care coordination
--- NOTE | 2023-02-10 20:41 | NUR.NOTE ---
Benedict Note In assessment of the patients, perineal area. it is evident his inguinal folds are moist at risk for impaired skin integrity. I asked the patient if he would be interested in me appliying a silver textile dressing interdry to help protect the skin. He told me to leave it alone and that he does not want anything down their. I told him the skin is at risk for breaking down. i expressed to the patient we could also do a nystatin powder. pt refused at this time. He remains sitting in the chair where he reports he is comfortable for now. Nursing Note:
[2023-02-10] MEDS: Finasteride 5 MG TAB PO (21:20)
[2023-02-10] MEDS: Tamsulosin 0.4 MG CAPCR 0.8 MG PO (21:20)
[2023-02-10 22:40] LABS: Urea Nitrogen Random Urine 873 mg/dL (See Note)
--- NOTE | 2023-02-11 | DI.US_ITS ---
APPROVED REPORT EXAM: Comprehensive 2D, Doppler, and color-flow Echocardiogram Patient Location: In-Patient Room/Bed: 210 Etl Manager: Lola De Anda RDCS (AE) Indications: CHF, HTN, SOB Other Information Study Quality: Adequate. Technically limited study due to body habitus, . Conclusion Normal left ventricular wall thickness and chamber size. Ejection fraction is 20%. There is severe global hypokinesis Normal right ventricular size and systolic function Both atria are normal in size Aortic valve is sclerotic and trileaflet with trace regurgitation Normal mitral valve with trace regurgitation Mild tricuspid valve with trace regurgitation. Right ventricular systolic pressure could not be annmarie mated Wall motion Left Ventricle The left ventricle is normal size. Left ventricular systolic function is severely decreased. There is normal left ventricular wall thickness. There is no ventricular septal defect visualized. LVEF is 19 %. Right Ventricle The right ventricle is normal size. The right ventricular systolic function is normal. Atria The left atrium size is normal. The right atrium size is normal. The interatrial septum is intact wit h no evidence for an atrial septal defect. Aortic Valve The Aortic valve is sclerotic. Aortic valve is trileaflet. There is no aortic valvular stenosis. Tra ce aortic regurgitation. Mitral Valve The mitral valve is normal in structure. No evidence of mitral valve stenosis. Trace mitral regurgita tion. Tricuspid Valve The tricuspid valve is normal in structure. There is no tricuspid valve stenosis. Trace tricuspid reg urgitation. Unable to assess PA pressure. Pulmonic Valve The pulmonary valve is normal in structure. There is no pulmonic valvular stenosis. There is no pulmo nemo valvular regurgitation. Great Vessels The aortic root is normal in size. The ascending aorta is normal in size. Aortic arch is not well vis ualized. IVC is normal in size and collapses >50% with inspiration. Pericardium There is no pericardial effusion. 2D Dimensions IVSD d PLAX 0.95 cm M: 0.6-1.2 LVPW d PLAX 1.03 cm M: 0.6 - 1.2 LVID d PLAX 5.49 cm M: 4.2 - 5.8 LVDs 4.95 cm M: 2.5 - 4.0 Ao Root d 3.13 cm M: 3.1 - 3.7 RA Area A4C 9.91 cm2 Ao Asc Diam d 3.14 cm M: 2.6 - 3.4 LV EF Teichholz 21.0 % FS 9.65 % Aortic Valve LVOT Vmax 0.88 m/s AoV Area Vmax 1.97 cm2 LVOT Peak Grad 3.1 mmHg AR Vmax 3.93 m/s LVOT Mean Grad 1.9 mmHg AR DT 4516 msec LVOT Diam s 2.00 cm AR PHT 1310 msec AoV Peak Grad 61.7 mmHg AV Regurg Peak Gr. 61.65 mmHg LVOT SV 46.27 mL AoV Mean Grad 4.7 mmHg AoV Area VTI 1.79 cm2 Pulmonary Valve PV Mean Grad 4.2 mmHg RVOT Peak Gr. 4.91 mmHg RVOT Mean Gr. 2.55 mmHg RVOT VTI 0.138 m RVOT Vmax 1.11 m/s
[2023-02-11 04:19] VITALS: BP 155/82; PULSE 85; RESP 18; TEMP 36.5; O2SAT 98
[2023-02-11 06:46] LABS: Abs Immature Grans 0.02 10^3/uL (0.0-0.06); Absolute Basophil Count 0.03 10^3/uL (0.0-0.2); Absolute Eosinophil Count 0.24 10^3/uL (0.0-0.7); Absolute Lymphocyte Count 0.98 10^3/uL (1.2-3.4); Absolute Monocyte Count 0.58 10^3/uL (0.1-0.8); Absolute Neutrophil Count 3.86 10^3/uL (1.2-6.7); Basophils % 0.5; Eosinophils % 4.2; HCT 34.7 % (40.0-50.0); HGB 12.2 g/dL (13.5-17.5); Immature Grans % 0.4; Lymphocytes % 17.2; MCHC 35.2 % (32.0-36.0); MCV 88 fL (80-95); MPV 12.9 fL (8.0-11.0); Monocytes % 10.2; Neutrophils % 67.5; Platelet Count 157 10^3/uL (130-400); RBC 3.93 10^6/uL (4.36-5.78); RDW-SD 42.2 fL; WBC 5.71 10^3/uL (4.4-10.8)
[2023-02-11 07:06] LABS: Anion Gap 11.4 mmol/L (3-11); BUN 65 mg/dL (7-18); CO2 20.6 mmol/L (21.0-32.0); Chloride 106 mmol/L (98-107); Estimated GFR 13.49 (mL/min/1.73m2); Glucose 148 mg/dL (74-106); Magnesium 2.1 mg/dL (1.8-2.4); Potassium 4.6 mmol/L (3.5-5.1); Sodium 138 mmol/L (136-145)
[2023-02-11 07:13] LABS: CREATININE 4.5 mg/dL (0.70-1.30)
--- NOTE | 2023-02-11 07:56 | OT.INNT ---
Occupational Therapy Notes 02/11/23 OT consult received and pts chart was reviewed, pt is out of his room for testing this morning. OT will attempt to resume consult tomorrow. Sarah Suh, OTR/L
[2023-02-11] MEDS: Insulin Aspart 300 UNITS/3 ML PEN SC ×3 (08:54→17:09)
[2023-02-11 09:00] VITALS: BP 160/84; PULSE 92; RESP 14; TEMP 36.2; O2SAT 99
[2023-02-11 11:45] VITALS: BP 109/68; PULSE 83; RESP 16; TEMP 35.6; O2SAT 96
--- NOTE | 2023-02-11 13:07 | PT.INTREAT ---
Date of service: 02/11/23 Time of Service: 10:57 PT Notes Visit Reasons: Weakness, CHF, Orthopnea Inpatient Physical Therapy Treatment Note [facility] Date: 02/11/23 PRECAUTIONS: Fall, standard SUBJECTIVE: Patient sitting in recliner with legs elevated, agreeable to therapy. States his alfaro bag needs to be emptied. As bag is less than 1/4 full, this therapist advises that emptying it can wait until after therapy. AFTERNOON same. OBJECTIVE: ? PAIN: Reports discomfort from catheter. VITALS: monitored by nursing staff. ? Therapeutic Exercises ([id number] morning, x1 afternoon): Direct one-on-one instruction in therapeutic exercises to develop strength, endurance, range of motion and flexibility. ?Ambulation ? Assistive Device: FWW ? Weight bearing: full Assist: CGA ? Distance:? 200 feet with 2 standing rests. AFTERNOON 200 feet with 1 standing rest. ? Deviation: Patient declines having walker readjusted, despite it being at least 1 too high. Patient holds walker at the near curve of the top bar instead of on the handgrips, despite verbal and tactile cues re: hand placement. Reduced fran. Reports shortness of breath.? ASSESSMENT:? Patient tolerates therapy well, goes back to recliner at end of session, declines further exercises. Call mcbride in easy reach, VAL[place]INA alarm in place and active. AFTERNOON: same. PLAN: Continue global strength and conditioning until patient obtains SNF placement. TREATMENT CODE/TIME: 39561 Ther ex 11 minutes beginning at 10:57, [id number] Ther Ex 8 minutes beginning at 4:25
--- NOTE | 2023-02-11 15:25 | CMPROGNOTE_ITS ---
Date of service: 02/11/23 Time of Service: 15:25 Care Management Progress Note Progress Note Text Progress Note Text: S/O: Miguel was sitting up in his chair when CM met with him. Per provider, he is medically stable to return home, although Miguel has expressed serious concerns about returning home due to the unsanitary living conditions. Miguel has been working with PT, who recommends HH PT vs SNF. CM discussed short term rehab with Miguel, for him to gain strength, and to give him time to work on getting someone to help him clean his home. He is agreeable to going to SNF, and has asked for a referral to be sent to [facility], which CM sent, and is being reviewed. Miguel met with [facility] today, who stated that he is appropriately engaging, and he is not in crisis at this time. MARKETING OPERATIONS MANAGER will plan to transition him to daily medication delivery, if he is agreeable to this plan. CM will continue to follow. A: Miguel is a 67 year old male admitted to [facility] on 02/09/23 with weakness, CHF, orthopnea. P:?Anticipate Migule will return home vs SNF when medically cleared. He will be transported via private vehicle vs facility w/c van. He will follow up with his PCP and discharge plan of care. CM will continue to follow.
[2023-02-11 15:36] VITALS: BP 146/88; PULSE 81; RESP 17; TEMP 36.4; O2SAT 98
--- NOTE | 2023-02-11 16:03 | W.UROLOGYCON ---
Date of service: 02/11/23 Time of Service: 16:03 Assessment and Plan Assessment and plan (1) Acute urinary retention: Status: Chronic Assessment and plan: Since he failed and earlier voiding trial, the urology plan is to give him another voiding trial after he has been on medications for 2 to 4 weeks. Since he had not been able to keep his medications down when I saw him in the office, we set up a follow-up appointment for him which would coincide with his next catheter change timing. If he has been able to keep medications down, we will plan on giving him a voiding trial at that time. If he is not able to keep his medications down, we will simply change the catheter and try again once his GI issues improve History of Present Illness History of Present Illness Chief Complaint: Urinary retention Narrative: This is a 67-year-old gentleman who had a recent hospitalization at [facility]. He was taken to [facility] when he was found to have fluid overload and renal failure. He was seen by the cardiology service and his medications were adjusted. He had a Benedict catheter placed but his serum creatinine did not improve. Because the creatinine did not improve, it was felt that he did not have obstructive uropathy. The nephrology service was planning to do an outpatient biopsy of the kidney to check for any etiology. The urology service at [facility] saw the patient and started him on tamsulosin and finasteride. They gave him a voiding trial while he was an inpatient. He failed a voiding trial, so the plan was that the patient would go home with a Benedict catheter and have another voiding trial in 2 to 4 weeks. The patient actually refused to have a catheter placed while he was at [facility]. He was discharged with the instruction to return for a catheter if he was not able to void in 24 hours. When he was not able to urinate, he came to our emergency room and a Benedict catheter was replaced. He was then referred to see me. I spent most of his outpatient appointment reviewing his [facility] records and trying to coordinate his care. He told me that since he was discharged from [facility], he had not been able to keep any of his medications down. We did not believe a voiding trial would be indicated unless or until he was able to keep his meds down for 2 weeks straight. We also contacted both the nephrology service and cardiology service to make sure the patient was not lost to follow-up. Finally, we contacted the patient's primary care providers for his follow-up as well. In the meantime, the patient was admitted to the hospital with [facility] All Active Problems (Updated 02/18/23 @ 00:06 by LISSY ISBELL) Weakness (Acute) Acute urinary retention (Chronic) Heart failure with reduced ejection fraction (Chronic) Hypertension (Chronic) Schizophrenia (Chronic) Diabetes mellitus type 2 in obese (Acute) Medical History (Updated 02/18/23 @ 00:06 by LISSY ISBELL) Acute dyspnea Acute exacerbation of congestive heart failure Anemia Asthma exacerbation in COPD CAP (community acquired pneumonia) CHF (congestive heart failure) CHF exacerbation Depression Eczema High cholesterol Panic attacks Surgical History (Updated 02/09/23 @ 17:21 by Austin Ponce MD) Hx of hernia repair Social History Smoking/Tobacco Use Status: Never Smoking risk assessment performed?: Yes Alcohol Intake: never Drug use: Never Substance use type: does not use Housing: apartment What type of physical activity do you participate in: none Do you feel safe at home: Yes Do you feel safe in your relationship?: Yes Exam Narrative Exam Narrative: He does not appear septic or toxic. He appears chronically ill His vital signs are documented elsewhere A Benedict catheter is in place He is awake and alert Results Last Vital Signs Temp 36.4 C L 02/11/23 15:36 Pulse 81 02/11/23 15:36 Resp 17 02/11/23 15:36 BP 146/88 H 02/11/23 15:36 Pulse Ox 98 02/11/23 15:36 Labs 02/15/23 06:22 02/15/23 06:22 Labs: Laboratory Results - last 24 hr 02/10/23 02/11/23 02/11/23 11:53 05:52 05:52 WBC 5.71 RBC 3.93 L Hgb 12.2 L Hct 34.7 L MCV 88 MCH 31.0 MCHC 35.2 RDW 13.0 Plt Count 157 MPV 12.9 H Immature Gran % 0.4 Neutrophils % 67.5 Lymphocytes % 17.2 Monocytes % 10.2 Eosinophils % 4.2 Basophils % 0.5 Nucleated RBC % 0.0 Absolute Neutrophils 3.86 Absolute Lymphocytes 0.98 L Absolute Monocytes 0.58 Absolute Eosinophils 0.24 Absolute Basophils 0.03 Sodium 138 Potassium 4.6 Chloride 106 Carbon Dioxide 20.6 L Anion Gap 11.4 H BUN 65 H Creatinine 4.5 H* Est GFR (CKD-EPI 2020) 13.49 Glucose 148 H Calcium 9.0 Magnesium 2.1 Urine Urea Nitrogen 873
--- NOTE | 2023-02-11 16:47 | W.PM.PROGNOT ---
Date of Service Date of service: 02/11/23 Time of Service: 16:47 Assessment and Plan Assessment and plan (1) Gastritis: Status: Acute Assessment and plan: I suspect that the patient has uremic gastritis causing his dry heaving/nausea. Will trial a PPI. (2) Weakness: Status: Acute Assessment and plan: PT and OT consulted. We are hoping for discharge to a SNF. (3) Acute exacerbation of congestive heart failure: Status: Resolved Assessment and plan: Euvolemic at this time. LVEF is known to be 45% per prior echos. Not requiring diuretics today. (4) Nonadherence to medication: Status: Acute Assessment and plan: Evaluated by mental health. INterestingly, the patient states that his prescriber at [facility] is Melissa while [facility] says that he is not their patient. I have asked care management ot look into this further. Continues to refuse olanzapine, but behaviors are well controlled. (5) CLEM (acute kidney injury): Status: Resolved Assessment and plan: CLEM on CKD in setting of urinary retention as outpatient. At this point, Cr appears to have stabilized in the 4's. There is no obstructive uropathy by imaging on this admission. Urology is planning on outpatient voiding trial. Continue alfaro catheter. I have ordered urine for FeUrea. (6) Acute urinary retention: Status: Chronic Assessment and plan: S/p alfaro catheter which he has tolerated. Await urology consult. (7) Heart failure with reduced ejection fraction: Status: Chronic Assessment and plan: Never had a stress test. Etiology unclear, but ischemia will need to be ruled out as outpatient. [facility] did stop carvedilol, lisinopril, and furosemide at the time of his hospitalization at [facility] in 01/17. His LVEF was 45% then. He is euvolemic at this time. (8) Hypertension: Status: Chronic Assessment and plan: as above (9) Schizophrenia: Status: Chronic Assessment and plan: The patient is refusing olanzapine. I have asked for mental health to evaluate him. (10) Diabetes mellitus type 2 in obese: Status: Acute Assessment and plan: Continue consistent carb diet, sliding scale insulin. A1C is 6.0. (11) Discharge planning issues: Status: Acute Assessment and plan: PT and OT consulted. Plan for discharge to a SNF once bed avilable. He does have home health nursing at home to help with the alfaro catheter. (12) DVT prophylaxis: Status: Acute Assessment and plan: SC enoxaparin Subjective Subjective Interval history since last seen: Reports dry heaving. Last BM 2 days ago. No abdominal pain. Dry heaving has been bothering him ever since his kidney problems started, he says - about a month ago. Denies dizziness, CP, SOB unless walking. Not nauseated currently. Exam Narrative Exam Narrative: General: Pleasant middle-aged male who is A&Ox3, cooperative, no visibly dyspneic/tachypneic, is belching while sitting up in a chair HEENT: EOMI, MMM Heart: RRR, no m/r/g Lungs: CTAB Abdomen: soft, nontender, nondistended Extremities: no edema BLEs Objective Last Vital Signs Temp 36.4 C L 02/11/23 15:36 Pulse 81 02/11/23 15:36 Resp 17 02/11/23 15:36 BP 146/88 H 02/11/23 15:36 Pulse Ox 98 02/11/23 15:36 Laboratory Results - last 24 hr 02/10/23 02/11/23 02/11/23 11:53 05:52 05:52 WBC 5.71 RBC 3.93 L Hgb 12.2 L Hct 34.7 L MCV 88 MCH 31.0 MCHC 35.2 RDW 13.0 Plt Count 157 MPV 12.9 H Immature Gran % 0.4 Neutrophils % 67.5 Lymphocytes % 17.2 Monocytes % 10.2 Eosinophils % 4.2 Basophils % 0.5 Nucleated RBC % 0.0 Absolute Neutrophils 3.86 Absolute Lymphocytes 0.98 L Absolute Monocytes 0.58 Absolute Eosinophils 0.24 Absolute Basophils 0.03 Sodium 138 Potassium 4.6 Chloride 106 Carbon Dioxide 20.6 L Anion Gap 11.4 H BUN 65 H Creatinine 4.5 H* Est GFR (CKD-EPI 2020) 13.49 Glucose 148 H Calcium 9.0 Magnesium 2.1 Urine Urea Nitrogen 873 PAWSS Pt Consumed Any Amount of Alcohol Within the Last 30 days OR had positive HECTOR Upon Admission: No Time Spent with Patient Time Spent with Patient: 25-34 minutes Time was spent: preparing to see the patient(eg.review tests), obtaining and/or reviewing separately otained hiistory, ordering medications,tests, procedures, referring, communicating with other health transitional care manager, indepentently interpreting results, counseling the patient and care coordination
[2023-02-11] MEDS: Omeprazole 20 MG CAPCR 40 MG PO (17:08)
[2023-02-11] MEDS: Enoxaparin 30 MG/0.3 ML SYR SC (17:08)
[2023-02-11 19:15] VITALS: BP 128/77; PULSE 86; RESP 16; TEMP 36.6; O2SAT 98
[2023-02-11] MEDS: Tamsulosin 0.4 MG CAPCR 0.8 MG PO (22:31)
[2023-02-11] MEDS: Finasteride 5 MG TAB PO (22:31)
[2023-02-11 23:39] VITALS: BP 115/71; PULSE 78; RESP 16; TEMP 36.5; O2SAT 98
[2023-02-12 05:14] VITALS: BP 134/86; PULSE 89; RESP 18; TEMP 35.9; O2SAT 98
--- NOTE | 2023-02-12 07:25 | OTIE_ITS ---
Occupational Therapy Notes Inpatient Occupational Therapy Evaluation Date: 02/12/23 Referring Doctor:Dennise Gonzalez MD OT Orders: Non urgent Precautions: Fall, standard, full PATIENT PROFILE/ADMITTING DIAGNOSIS: Pt is a 67 year old male who was admitted through the ED on 02/09/23 with a clinical impression of ?Weakness, CLEM (acute kidney injury), Nonadherence to medication, and CHF (congestive heart failure). Past Medical History: All Active Problems?(Updated 02/09/23 @ 17:21 by Austin Ponce MD) Weakness (Acute) Nonadherence to medication (Acute) Acute exacerbation of congestive heart failure (Acute) CLEM (acute kidney injury) (Acute) Acute urinary retention (Acute) Heart failure with reduced ejection fraction (Acute) Hypertension (Chronic) Schizophrenia (Chronic) Diabetes mellitus type 2 in obese (Acute) Discharge planning issues (Acute) Medical History?(Updated 02/09/23 @ 17:21 by Austin Ponce MD) Acute dyspnea Anemia Asthma exacerbation in COPD CAP (community acquired pneumonia) CHF (congestive heart failure) CHF exacerbation Depression DVT prophylaxis Eczema High cholesterol Panic attacks Surgical History?(Updated 02/09/23 @ 17:21 by Austin Ponce MD) Hx of hernia repair Social History/Home Situation: Pt states that he lives in an apartment and he needs someone to come clean it as soon as possible. He reports that he can do everything himself except clean but he does need help he reports right now because he has a alfaro. He is unable to provide a clear baseline level of function. He notes that he has no issues with getting dress or eating. Equipment owned/DME: Unable to assess with pt this morning. SUBJECTIVE: Pt was lying in bed when OT arrived. He states that he is leaving today and going to SNF. He reports that he just wants to sleep and everyone wants him to do something. OBJECTIVE: General Observation: Easily stressed when asked questions, decreased safety awareness in terms of functional decision making, impulsive, Alfaro in place, fidgets when nervous grabbing his hospital band when he feels over stimulated. Mental Status: A&Ox3 Pain: no c/o pain ROM: RUE AROM WFL L UE AROM WFL STRENGTH: RUE 3+/5 throughout LUE 3+/5 throughout FUNCTIONAL MOBILITY/ADLS: *Pt denies performance of his ADLS this morning so all assessments are based on ROM and facilitated ROM movements with his UE. BATHING Sitting in bed pt is able to touch the top of his head and reach down to his toes. He continues to note multiple times that his alfaro makes him not be able to perform his tasks but he has minimal restrictions for his bathing routine. Would be best for max (A) Set up and clean up. DRESSING AROM WFL and able to reach across midline and down. He states that he cannot perform his socks because of his alfaro but then later states that he can do this it just feels difficult with the follow in place. GROOMING (I) with touchh his head and face with no restrictions or limitations TOILETING Alfaro in place- pt states that this is his biggest limiting factor. EATING AROM WFL to be able to touch his mouth (I), fine motor intact for pinch control to hold silverware appropriately in hand. BALANCE: Static sitting Good Dynamic Sitting Good SPECIAL TESTS: Daily Activity Limitations Standardized Measure [facility] AM -PAC ?6 clicks? Daily Activity Inpatient Short Form: Raw score: 23 Standardized score: 51.12 CMS score: 15.86% INFORMED CONSENT/EDUCATION: Pt instructed in purpose of OT Consult and plan of care. ASSESSMENT: Patient is a 67-year-old male referred to occupational therapy services with diagnosis of gastritis, weakness, nonadherence to medication, acute exacerbation of Congestive heart failure, CLEM, acute urinary retention, heart failure with reduced ejection fraction, HTN, schizophrenia. Patient presents with clinical signs and symptoms consistent with dx, as demonstrated by the following impairment level findings/functional limitations: decreased functional activity tolerance, decreased standing balance, requires vc for task performance, nonadherence to his medication and he is impulsive with decisions, decreased safety awareness. AMPA score 23 Patient is assessed as a Moderate 68779 complexity based on the following: History: see above Examination: see functional limitations as noted above Presentation: evolving Decision Making: AMPA score 23 GOALS Goals x1 week 1. Grooming- standing at sink pt will be (I) with oral hygiene 2. Dressing- seated (I) 3. Bathing- standing at sink (R) 4. Toileting- (I) 5. Eating (I) PLAN OF CARE/TREATMENT PLAN: 1x/day, 3 days/ week x 1week Initiate Occupational Therapy Services for bathing, dressing, grooming, toileting, eating, transfer training. DISCHARGE RECOMMENDATIONS SNF when medically cleared per MD TREATMENT TIME/MINUTES/CODES 33877, 15 minutes Sarah Suh OTR/L [facility] [place], [place]
[2023-02-12 07:33] VITALS: BP 140/88; PULSE 82; RESP 16; TEMP 36.1; O2SAT 99
[2023-02-12] MEDS: Insulin Aspart 300 UNITS/3 ML PEN SC ×3 (07:55→17:01)
[2023-02-12] MEDS: Docusate Sodium 100 MG CAP PO ×2 (07:55→21:29)
[2023-02-12] MEDS: Omeprazole 20 MG CAPCR 40 MG PO (07:55)
[2023-02-12 11:02] VITALS: BP 147/90; PULSE 79; TEMP 35.6; O2SAT 99
--- NOTE | 2023-02-12 11:09 | PDOC.MHCN ---
Date of service: 02/11/23 Time of Service: 11:09 PHQ-9 Over the last 2 weeks, how often have you been bothered by any of the following problems? 1. Little interest or pleasure in doing things: nearly every day 2. Feeling down, depressed, or hopeless: nearly every day 3. Trouble falling or staying asleep, or sleeping too much: nearly every day 4. Feeling tired or having little energy: nearly every day 5. Poor appetite or overeating: nearly every day 6. Feeling bad about yourself - or that you are a failure or have let yourself and your family down: nearly every day 7. Trouble concentrating on things, such as reading the newspaper or watching television: nearly every day 8. Moving or speaking so slowly that other people could have noticed? - Or the opposite - being so fidgety or restless that you have been moving around a lot more than usual: nearly every day 9. Thoughts that you would be better off or of hurting yourself in some way: nearly every day Total score: 27 If you checked off any problems, how difficult have these problems made it for you to do your work, take care of things at home, or get along with other people?: extremely difficult PHQ-9 Results: Positive Source: Developed by Drs. Edwin Milton, Gita Trammell, Anibal Hernandez and colleagues, with an educational aristides from [employer]. Suicide Severity Rate CSSRS Have you wished you were or wished you could go to sleep and not wake up?: Yes Have you actually had any thoughts of killing yourself?: No CSSRS4 Was this within the past three months?: No Screening Score Total Score: 2 Screening: Positive Mental Health Emergency Note Release [facility] release signed:: Yes Reason for Visit The client arrived on 02.09.23 to [facility] via ambulance after his geriatric case manager from Home Health called for him due to complaints of shortness of breath. [facility] hospitalist is requesting an evaluation as the client has not been taking his Olanzapine for the past couple of days due to how it makes me feel. In the last 2 weeks has the pt presented for ES prior to today?: Unknown Client Information Client is: [facility] Well Housed: Yes Non Suicidal Self Injury Current: No History: No Safety Risk/Harm to Self or Others Current Ideation to Harm Self or Others: No Risk: Does risk to harm exist?: No Risk: Low Risk Duty to warn indicated: No Asssessment/Mental Status Appearance: Disheveled Attitude: Cooperative Behavior: Agitated Speech: Normal Affect: Cogruent with mood Mood: Stressed, Depressed, Anxious and Irritable Thought process: Goal directed Hallucinations: No evidence Delusions: No evidence Attention: Unremarkable Perception: Not impaired Orientation: Fully orientated Memory: Intact Insight: Good Judgement: Good Neurovegetative Symptoms Sleep: Decrease Appetitie: Decrease Interests: Decrease Energy: Decrease Libido: Not applicable Substance Use: Have you used substances in the last 7 days?: No Additional Issues: Assaultive/Threatening Behavior: No Medical Concerns: No Client engaged in active self harm w/weapon: No Threatening to run away: No Child reported abuse/neglect: No Voluntarily presenting for services: Yes Domestic violence is a concern: No Extreme Psychosis or extreme behavior is present: No Impression The client is a 67 year old, single, male who lives independently in an apartment in [place], [place]. he is services through Home health as well as, [facility] with [facility]. He is diagnosed with: Schizophrenia unspecified and major Depressive Disorder recurrent unspecified. He expresses concerns about returning to his home which he described as unsanitary as evidenced by his report of urine stained/odors on his bed, couch and floors that happened prior to his Benedict Catheter due to his not being able to control his urine output. The client is observably distressed about the possibility and likelihood he will have to return back to that living arrangement I think I have been poisoned. Other options have been discussed however, he is fixated that he will need to return there in the condition it is. Other options were for his team to work on a cleaning crew to take care of this either after returning home or while in a SNF for a couple weeks. He was so distressed he was not able to hear the options offered only that he was returning home. The client denied any natural supports only professional ones with Home Health, [facility] and his PCP, Reinier Arceo. He reported that he did not like the side effects of his Olanzapine and this is why he stopped. He has not informed his provider of his discontinuance of the medication. The client was unable to identify any strengths. He denied any legal or psychiatric hospitalization history. Plan/Disposition Recommended Disposition: [facility]. Plan: Care management will continue to talk with the client about his options. At this time the client does not meet criteria for an inpatient referral however, [facility] has been made ritter that he should be followed closely if he is not taking his psychiatric medication as this could likely lead to decompensation of his symptoms. Person reported agreement to plan: Yes Reports/communication Outcome discussed with: ED/Personnel
--- NOTE | 2023-02-12 12:40 | PDOC.CMPRO ---
Date of service: 02/12/23 Time of Service: 12:40 Care Management Progress Note Progress Note Text Progress Note Text: S/O: Miguel was accepted at [facility], planning for admission on Wednesday. CM discussed this with Miguel, who asked if a referral could be sent to the [facility], to determine if a bed may be available today. CM faxed the referral to the [facility] for review. No bed offer was made today. He will likely transition to [facility] on Wednesday, as planned. CM will continue to follow. A: Miguel is a 67 year old male admitted to [facility] on 02/09/23 with weakness, CHF, orthopnea. P:?Anticipate Miguel will transition to SNF when medically cleared. He was offered a bed at [facility] for Wednesday. He will be transported via facility w/c van. He will follow up with his PCP and discharge plan of care. CM will continue to follow.?
[2023-02-12] MEDS: Benzonatate 100 MG CAP PO ×2 (14:06→21:29)
[2023-02-12 15:57] VITALS: BP 128/92; PULSE 85; RESP 18; TEMP 36; O2SAT 99
--- NOTE | 2023-02-12 16:54 | PTTR_ITS ---
Date of service: 02/12/23 Time of Service: 10:31 PT Notes Visit Reasons: Weakness, CHF, Orthopnea Inpatient Physical Therapy Treatment Note [facility] Date: 02/12/23 PRECAUTIONS: Fall, standard, activity as tolerated. SUBJECTIVE: Patient sitting up in chair, agreeable to therapy. OBJECTIVE: ? PAIN: None reported VITALS: monitored by nursing staff. Gait Training (86956d[1, afternoon): Direct one-on-one instruction and skilled instruction in: [x] employing an assistive device [x] movement sequencing [x] turning and movement with proper form [x] Provided verbal cues for equipment management and technique [x] Provided instruction in gait pattern? GAIT? Assistive Device: SPC ? Weight bearing: full Assist: CGA ? Distance:? 300 feet ? Deviation: Patient takes 2 standing rest breaks. Demonstrates antalgic gait pattern favoring left leg, reduced step height, reduced step length, becomes short of breath with exertion. ? Therapeutic Exercises (56074f5, morning): Direct one-on-one instruction in therapeutic exercises to develop strength, endurance, range of motion and flexibility. ?Ambulation ? Assistive Device: FWW ? Weight bearing: full Assist: CGA ? Distance:? 300 feet ? Deviation: Patient demonstrates reduced step height, reduced step length, becomes short of breath with exertion, flexed posture. Continues to hold the near corners of the FWW instead of the hand registered occupational therapist. ? Provided skilled instruction in proper exercise performance ASSESSMENT:? Patient tolerates therapy well both in the am and pm. Returns to recliner both times, resting comfortably with call mcbride in easy reach and [place] alarm in place and active. PLAN: Continue global strengthening per plan of care until patient is medically cleared for discharge. TREATMENT CODE/TIME: 41337 Ther Ex 22 minutes beginning at 10:31. [id number] Gait 17 minutes beginning at 16:20
[2023-02-12] MEDS: Enoxaparin 30 MG/0.3 ML SYR SC (17:26)
--- NOTE | 2023-02-12 18:49 | PGE_ITS ---
Date of Service Date of service: 02/12/23 Time of Service: 13:00 Assessment and Plan Assessment and plan (1) Gastritis: Status: Acute Assessment and plan: Continue PPI. Antiemetics prn (2) Weakness: Status: Acute Assessment and plan: PT and OT consulted. Discharge likey to a SNF. (3) Acute exacerbation of congestive heart failure: Status: Resolved Assessment and plan: Euvolemic Echo EF 45% Continues to not need diuretics Lungs are clear No BLE edema noted (4) Nonadherence to medication: Status: Acute Assessment and plan: Evaluated by mental health. Continues to refuse olanzapine; no behavioral concerns at present (5) CLEM (acute kidney injury): Status: Resolved Assessment and plan: Creatinine 4.6 today Urology is planning on outpatient voiding trial. Continue alfaro catheter. Urine for FeUrea pending. (6) Acute urinary retention: Status: Chronic Assessment and plan: S/p alfaro catheter which he has tolerated. Await urology consult. (7) Heart failure with reduced ejection fraction: Status: Chronic Assessment and plan: Never had a stress test. Etiology unclear, but ischemia will need to be ruled out as outpatient. [facility] [place] stop carvedilol, lisinopril, and furosemide at the time of his hospitalization at [facility] in 01/17. His LVEF was 45% then. He is euvolemic at this time. (8) Hypertension: Status: Chronic Assessment and plan: as above (9) Schizophrenia: Status: Chronic Assessment and plan: The patient is refusing olanzapine. (10) Diabetes mellitus type 2 in obese: Status: Acute Assessment and plan: Continue consistent carb diet, sliding scale insulin. A1C is 6.0. (11) Discharge planning issues: Status: Acute Assessment and plan: PT and OT consulted. Plan for discharge to a SNF once bed avilable. Resume HH if he goes home (12) DVT prophylaxis: Status: Acute Assessment and plan: SC enoxaparin Discussed with Dr Gonzalez Subjective Subjective Patient reports: no new complaints, tolerating a regular diet, voiding w/o difficulty, bowel movement and afebrile; denies diarrhea or vomiting Interval history since last seen: No complaints, sitting in the chair in the room, poor eye contact, appears anxious, legs constantly moving back and forth rapidly. Exam Narrative Exam Narrative: General: Pleasant male patient who is A&Ox3, pleasant, conversant, cooperative, not visibly dyspneic or tachypneic, skin w/d/p HEENT: EOMI, MMM Heart: RRR, no m/r/g Lungs: CTAB Abdomen: soft, nontender, nondistended Extremities: no edema BLEs Objective Last Vital Signs Temp 36 C L 02/12/23 15:57 Pulse 85 02/12/23 15:57 Resp 18 02/12/23 15:57 BP 128/92 H 02/12/23 15:57 Pulse Ox 99 02/12/23 15:57 PAWSS Pt Consumed Any Amount of Alcohol Within the Last 30 days OR had positive HECTOR Upon Admission: No Time Spent with Patient Time Spent with Patient: 35-49 minutes Time was spent: preparing to see the patient(eg.review tests), ordering medications,tests, procedures, referring, communicating with other health health care facility administrator, indepentently interpreting results, counseling the patient and care coordination
[2023-02-12] MEDS: Finasteride 5 MG TAB PO (21:29)
[2023-02-12] MEDS: Tamsulosin 0.4 MG CAPCR 0.8 MG PO (21:29)
[2023-02-12 21:35] VITALS: BP 128/82; PULSE 87; RESP 16; TEMP 36.3; O2SAT 99
[2023-02-13] VITALS (7 sets, daily range): BP systolic 112–153; BP diastolic 73–88; PULSE 68–90; RESP 16–22; TEMP 35.8–36.9; O2SAT 96–99
[2023-02-13 07:13] LABS: Abs Immature Grans 0.02 10^3/uL (0.0-0.06); Absolute Basophil Count 0.03 10^3/uL (0.0-0.2); Absolute Eosinophil Count 0.17 10^3/uL (0.0-0.7); Absolute Lymphocyte Count 0.86 10^3/uL (1.2-3.4); Absolute Monocyte Count 0.52 10^3/uL (0.1-0.8); Absolute Neutrophil Count 4.04 10^3/uL (1.2-6.7); Basophils % 0.5; HCT 33.5 % (40.0-50.0); HGB 11.6 g/dL (13.5-17.5); Immature Grans % 0.4; Lymphocytes % 15.2; MCH 30.4 pg (27.0-33.0); MCHC 34.6 % (32.0-36.0); MCV 88 fL (80-95); MPV 12.9 fL (8.0-11.0); Monocytes % 9.2; Neutrophils % 71.7; Platelet Count 135 10^3/uL (130-400); RBC 3.81 10^6/uL (4.36-5.78); RDW 12.8 % (11.8-14.1); RDW-SD 41.7 fL; WBC 5.64 10^3/uL (4.4-10.8)
[2023-02-13] MEDS: Omeprazole 20 MG CAPCR 40 MG PO ×2 (07:19→19:50)
[2023-02-13 07:29] LABS: Anion Gap 13.4 mmol/L (3-11); BUN 66 mg/dL (7-18); CO2 19.6 mmol/L (21.0-32.0); Chloride 104 mmol/L (98-107); Estimated GFR 13.85 (mL/min/1.73m2); Glucose 159 mg/dL (74-106); Potassium 4.5 mmol/L (3.5-5.1); Sodium 137 mmol/L (136-145)
[2023-02-13 07:51] LABS: CREATININE 4.4 mg/dL (0.70-1.30)
[2023-02-13] MEDS: Insulin Aspart 300 UNITS/3 ML PEN SC ×3 (08:29→17:04)
[2023-02-13] MEDS: Docusate Sodium 100 MG CAP PO ×2 (08:29→19:49)
[2023-02-13] MEDS: Benzonatate 100 MG CAP PO ×3 (08:29→19:48)
[2023-02-13] MEDS: Sucralfate 1 GM TAB PO ×2 (10:47→19:41)
--- NOTE | 2023-02-13 11:10 | PT.INTREAT ---
PT Notes Visit Reasons: Weakness, CHF, Orthopnea Inpatient Physical Therapy Treatment Note [facility] Date: 02/13/23 SUBJECTIVE: Miguel states that he is winded. OBJECTIVE: []? PAIN: none ??? Therapeutic Activities (17907b): Direct one-on-one instruction in dynamic activities to improve functional performance. ? BED MOBILITY/TRANSFERS? pt seated in recliner? Sit-stand: I ? Stand-sit: I ? ' ? Therapeutic Exercises (35833n2): Direct one-on-one instruction in therapeutic exercises to develop strength, endurance, range of motion and flexibility. ? Exercises sitting: ankle pumps x15 LAQ x10 ea SLR x10 ea hip ab/add x10 ?Ambulation ? GAIT? Assistive Device: FWW ? Weight bearing: full Assist: SBA? Distance:? approx 260' ? Provided skilled instruction in proper exercise performance ASSESSMENT:?tolerated session well despite c/o feeling winded. Denied SOB. I noted mild antalgia however Miguel reports that he has neuropathy which could be the cause. He was not aware of the limp. PLAN: continue to progress functional mobility and activity tolerance as per PT POC. TREATMENT CODE/TIME: 20 min. [id number]
[2023-02-13] MEDS: Ondansetron O.D.T. 4 MG TABEF PO (11:15)
[2023-02-13] MEDS: Gabapentin 100 MG CAP PO ×2 (13:32→19:48)
--- NOTE | 2023-02-13 15:35 | W.PM.PROGNOT ---
Date of Service Date of service: 02/13/23 Time of Service: 09:30 Assessment and Plan Assessment and plan (1) Gastritis: Status: Acute Assessment and plan: Continue PPI. Added carafate - BID not ACHS s/t renal fxn and possibility of build up of aluminum Antiemetics prn Consider EGD (2) Weakness: Status: Acute Assessment and plan: PT and OT consulted. Discharge likey to a SNF. (3) Acute exacerbation of congestive heart failure: Status: Resolved Assessment and plan: Euvolemic Echo EF 45% Continues not to need diuretics Lungs are clear No BLE edema noted (4) Nonadherence to medication: Status: Acute Assessment and plan: No behavioral concerns at present Does not want to take Olanzepine, therefore refuses it (5) CLEM (acute kidney injury): Status: Resolved Assessment and plan: Creatinine 4.5 today Urology is planning on outpatient voiding trial. Continue alfaro catheter. Urine for FeUrea pending. Has nephrology appt @ [facility] for bx of kidney to check for pathology that might be causing renal failure. (6) Acute urinary retention: Status: Chronic Assessment and plan: S/p alfaro catheter which he has tolerated. Seen by Dr Patterson with plan to keep alfaro in for 2-4 weeks, then try another voiding trial at that time, if he fails they will put the catheter back in. He will go to SNF as he can't manage catheter independently (7) Heart failure with reduced ejection fraction: Status: Chronic Assessment and plan: [facility] discontinued carvedilol, lisinopril, and furosemide at the time of his hospitalization at [facility] in 01/17. His LVEF was 45% then. He is euvolemic at this time. He has follow up appt with [facility] cardiology 04/28/23 @ 2PM (8) Hypertension: Status: Chronic Assessment and plan: as above (9) Schizophrenia: Status: Chronic Assessment and plan: The patient is refusing olanzapine. (10) Diabetes mellitus type 2 in obese: Status: Acute Assessment and plan: Continue consistent carb diet, sliding scale insulin. A1C is 6.0. (11) Discharge planning issues: Status: Acute Assessment and plan: PT and OT consulted. Plan for discharge to a SNF once bed avilable. Accepted @ [facility] (12) DVT prophylaxis: Status: Acute Assessment and plan: SC enoxaparin Discussed with Dr Gonzalez Subjective Subjective Patient reports: no new complaints, feels better, tolerating a regular diet, bowel movement, nausea and afebrile; denies diarrhea, vomiting or shortness of breath Interval history since last seen: Miguel is awake and alert, reclined in the chair. He reports some nausea nd dry heaving every morning. Exam Narrative Exam Narrative: General: non-toxic, no respiratory distress, comfortable, sitting in recliner in the room, feet up, with legs HEENT: normocephalic, atraumatic, lids and lashes normal, PERRL, EOMI, anicteric sclera, no conjunctival injection, moist oral mucosa Card: regular rate and rhythm, S1S2, no murmurs, rubs, or gallops Lungs: good air entry, clear to auscultation bilaterally. no wheezes, rales, rhonchi, or retractions Abd: soft, non-tender, non-distended, normal bowel sounds, no rebound or guarding, no peritoneal signs, no CVAT Musculoskeletal: full range of motion of arms and legs, no tenderness to palpation. no clubbing, cyanosis, or edema Neurologic: appropriate for age, strength normal Psych: alert and oriented Skin: no petechiae, no lesions, warm and dry Objective Last Vital Signs Temp 36.7 C 02/13/23 14:59 Pulse 78 02/13/23 14:59 Resp 16 02/13/23 14:59 BP 119/80 02/13/23 14:59 Pulse Ox 97 02/13/23 14:59 Laboratory Results - last 24 hr 02/13/23 02/13/23 06:30 06:30 WBC 5.64 RBC 3.81 L Hgb 11.6 L Hct 33.5 L MCV 88 MCH 30.4 MCHC 34.6 RDW 12.8 Plt Count 135 MPV 12.9 H Immature Gran % 0.4 Neutrophils % 71.7 Lymphocytes % 15.2 Monocytes % 9.2 Eosinophils % 3.0 Basophils % 0.5 Nucleated RBC % 0.0 Absolute Neutrophils 4.04 Absolute Lymphocytes 0.86 L Absolute Monocytes 0.52 Absolute Eosinophils 0.17 Absolute Basophils 0.03 Sodium 137 Potassium 4.5 Chloride 104 Carbon Dioxide 19.6 L Anion Gap 13.4 H BUN 66 H Creatinine 4.4 H* Est GFR (CKD-EPI 2020) 13.85 Glucose 159 H Calcium 9.0 Magnesium 2.0 PAWSS Pt Consumed Any Amount of Alcohol Within the Last 30 days OR had positive HECTOR Upon Admission: No Time Spent with Patient Time Spent with Patient: 35-49 minutes Time was spent: preparing to see the patient(eg.review tests), obtaining and/or reviewing separately otained hiistory, ordering medications,tests, procedures and indepentently interpreting results
[2023-02-13] MEDS: Enoxaparin 30 MG/0.3 ML SYR SC (17:05)
[2023-02-13] MEDS: Finasteride 5 MG TAB PO (19:37)
[2023-02-13] MEDS: Tamsulosin 0.4 MG CAPCR 0.8 MG PO (19:49)
[2023-02-14 03:20] VITALS: BP 126/77; PULSE 82; RESP 20; TEMP 37; O2SAT 99
[2023-02-14 07:01] LABS: Abs Immature Grans 0.02 10^3/uL (0.0-0.06); Absolute Basophil Count 0.03 10^3/uL (0.0-0.2); Absolute Eosinophil Count 0.19 10^3/uL (0.0-0.7); Absolute Monocyte Count 0.62 10^3/uL (0.1-0.8); Basophils % 0.5; Eosinophils % 3.2; HCT 33.3 % (40.0-50.0); HGB 11.8 g/dL (13.5-17.5); Immature Grans % 0.3; Lymphocytes % 16.8; MCH 31.2 pg (27.0-33.0); MCHC 35.4 % (32.0-36.0); MCV 88 fL (80-95); Monocytes % 10.4; Neutrophils % 68.8; Platelet Count 138 10^3/uL (130-400); RBC 3.78 10^6/uL (4.36-5.78); RDW 12.9 % (11.8-14.1); RDW-SD 41.7 fL; WBC 5.96 10^3/uL (4.4-10.8)
[2023-02-14 07:02] VITALS: BP 119/73; PULSE 87; RESP 20; TEMP 36.1; O2SAT 95
[2023-02-14 07:21] LABS: Anion Gap 12.5 mmol/L (3-11); BUN 68 mg/dL (7-18); CO2 20.5 mmol/L (21.0-32.0); Chloride 105 mmol/L (98-107); Estimated GFR 13.13 (mL/min/1.73m2); Glucose 164 mg/dL (74-106); Magnesium 2.1 mg/dL (1.8-2.4); Potassium 4.7 mmol/L (3.5-5.1); Sodium 138 mmol/L (136-145)
[2023-02-14 07:27] LABS: CREATININE 4.6 mg/dL (0.70-1.30)
[2023-02-14] MEDS: Docusate Sodium 100 MG CAP PO ×2 (08:03→20:18)
[2023-02-14] MEDS: Omeprazole 20 MG CAPCR 40 MG PO ×2 (08:03→20:17)
[2023-02-14] MEDS: Gabapentin 100 MG CAP PO ×3 (08:04→20:17)
[2023-02-14] MEDS: Insulin Aspart 300 UNITS/3 ML PEN SC ×3 (08:04→17:19)
[2023-02-14] MEDS: Benzonatate 100 MG CAP PO ×3 (08:04→20:17)
[2023-02-14] MEDS: Sucralfate 1 GM TAB PO ×2 (08:04→20:17)
[2023-02-14 11:16] VITALS: BP 116/73; PULSE 76; RESP 17; TEMP 36.1; O2SAT 98
--- NOTE | 2023-02-14 11:58 | PT.INTREAT ---
Date of service: 02/14/23 PT Notes Visit Reasons: Weakness, CHF, Orthopnea Inpatient Physical Therapy Treatment Note [facility] Date: 02/13/23 SUBJECTIVE: Miguel states that his feet and right knee are bothering him today. Is willing to go for a walk. Would like to take his cane today. OBJECTIVE: []? PAIN: B feet and right knee. ??? Therapeutic Activities (80356h): Direct one-on-one instruction in dynamic activities to improve functional performance. ? BED MOBILITY/TRANSFERS? pt seated in recliner? Sit-stand: I ? Stand-sit: I ? ' ? Therapeutic Exercises (90965t7): Direct one-on-one instruction in therapeutic exercises to develop strength, endurance, range of motion and flexibility. ? Exercises sitting: ankle pumps x15 LAQ x15 ea SLR x15 ea hip ab/add x8 (irritates at catheter site.) ?Ambulation ? GAIT? Assistive Device: SPC? Weight bearing: full Assist: SBA? Distance:? approx 260' ? Provided skilled instruction in proper exercise performance ASSESSMENT:?tolerated session well quite well. Progressed to cane. Fatigued noted post ambulation. Soreness in right knee with SLR. PLAN: continue to progress functional mobility and activity tolerance as per PT POC. TREATMENT CODE/TIME: 25 min. [id number]
[2023-02-14 13:31] LABS: Source Nasal/Nares
--- NOTE | 2023-02-14 14:05 | TELEP.MEDR_ITS ---
Date of service: 02/14/23 [facility]: 14[facility] All[facility] Allergies: No Known Allergies Allergy (Unverified 02/09/23 12:09) Interview Person Interviewed: * Patient Quality Quality of Interview/Accuracy of Medication List: Fair Sources Sources used to compile medication list: [employer] Medication List and [employer] Changes made to Home Medication List: ADDITIONS: * None DELETIONS: * Atorvastatin * Nitroglycerin * Olanzapine CHANGES: * Ibuprofen 400mg PO TID * Naproxen 440mg PO TID * Gabapentin 100mg PO TID Additional Notes Additional Notes: * Patient reports taking both naproxen and ibuprofen concurrently and has done so for decades * Olanzapine- patient reports he stopped taking this some time last month. He reports that it made him out of it and did not help with the voices * Glipizide, Losartan & Metoprolol Succinate- Patient was not sure if he is taking these at home, they were all filled at [facility] on 01/31/23 Recommended Changes Recommended Changes(reason for recommendation): * none Attestation: The home medication list is now updated to the best of my knowledge and is ready to be reconciled by the provider. Please contact the TelePharmacy Medication Reconciliation Pharmacist at for any questions.
--- NOTE | 2023-02-14 14:05 | TELEP.MEDREC ---
Date of service: 02/14/23 Time of Service: 14:05 [facility] Home Med Rec Allergies Allergies: No Known Allergies Allergy (Unverified 02/09/23 12:09) Interview Person Interviewed: Patient Quality Quality of Interview/Accuracy of Medication List: Fair Sources Sources used to compile medication list: [employer] Medication List and [employer] Changes made to Home Medication List: ADDITIONS: None DELETIONS: Atorvastatin Nitroglycerin Olanzapine CHANGES: Ibuprofen 400mg PO TID Naproxen 440mg PO TID Gabapentin 100mg PO TID Additional Notes Additional Notes: Patient reports taking both naproxen and ibuprofen concurrently and has done so for decades Olanzapine- patient reports he stopped taking this some time last month. He reports that it made him out of it and did not help with the voices Glipizide, Losartan & Metoprolol Succinate- Patient was not sure if he is taking these at home, they were all filled at [facility] on 01/31/23 Recommended Changes Recommended Changes(reason for recommendation): none Attestation: The home medication list is now updated to the best of my knowledge and is ready to be reconciled by the provider. Please contact the [facility] Medication Reconciliation Pharmacist at for any questions.
[2023-02-14 14:12] LABS: COVID-19 PCR Negative (Negative)
[2023-02-14 15:09] VITALS: BP 131/78; PULSE 69; RESP 18; TEMP 36; O2SAT 99
--- NOTE | 2023-02-14 16:03 | W.PM.PROGNOT ---
Date of Service Date of service: 02/14/23 Time of Service: 16:03 Assessment and Plan Assessment and plan (1) Gastritis: Status: Acute Assessment and plan: Continue PPI BID Continue carafate - BID not ACHS s/t renal fxn and possibility of build up of aluminum Antiemetics prn Consider EGD No dry heaves today, ate 100% of meals, no vomiting. Improved from prior days; (2) Weakness: Status: Acute Assessment and plan: PT and OT consulted. Discharge likey to a SNF. (3) Acute exacerbation of congestive heart failure: Status: Resolved Assessment and plan: Euvolemic Echo EF 45% Continues not to need diuretics Lungs are clear No BLE edema noted (4) Nonadherence to medication: Status: Acute Assessment and plan: No behavioral concerns at present Does not want to take Olanzepine, therefore refuses it (5) CLEM (acute kidney injury): Status: Resolved Assessment and plan: Creatinine 4.6 today Urology is planning on outpatient voiding trial. Continue alfaro catheter. Urine for FeUrea pending. Has nephrology appt @ [facility] for bx of kidney to check for pathology that might be causing renal failure. (6) Acute urinary retention: Status: Chronic Assessment and plan: S/p alfaro catheter which he has tolerated. Seen by Dr Patterson with plan to keep alfaro in for 2-4 weeks, then try another voiding trial at that time, if he fails they will put the catheter back in. He will go to SNF as he can't manage catheter independently (7) Heart failure with reduced ejection fraction: Status: Chronic Assessment and plan: [facility] discontinued carvedilol, lisinopril, and furosemide at the time of his hospitalization at [facility] in 01/17. His LVEF was 45% then. He is euvolemic at this time. He has follow up appt with [facility] cardiology 04/28/23 @ 2PM (8) Hypertension: Status: Chronic Assessment and plan: as above (9) Schizophrenia: Status: Chronic Assessment and plan: The patient is refusing olanzapine. He has had no aggressive behavior, is calm and conversant each time I go in the room, although deviates his eyes quite often. (10) Diabetes mellitus type 2 in obese: Status: Acute Assessment and plan: Continue consistent carb diet, sliding scale insulin. A1C is 6.0. (11) Discharge planning issues: Status: Acute Assessment and plan: PT and OT consulted. Plan for discharge to a SNF Wednesday Accepted @ [facility] & (12) DVT prophylaxis: Status: Acute Assessment and plan: SC enoxaparin Discussed with Dr Gonzalez Subjective Subjective Patient reports: no new complaints, bowel movement and afebrile; denies diarrhea, nausea or vomiting Interval history since last seen: Miguel reports feeling much better and has had no dry heaving since we changed his medication yesterday. He is awake, alert, sitting in the chair in the room. Exam Narrative Exam Narrative: General: non-toxic, no respiratory distress, comfortable, sitting in recliner in the room, feet up, with legs moving most of the time, nervous energy HEENT: normocephalic, atraumatic, lids and lashes normal, PERRL, EOMI, anicteric sclera, no conjunctival injection, moist oral mucosa Card: regular rate and rhythm, S1S2, no murmurs, rubs, or gallops Lungs: good air entry, clear to auscultation bilaterally. no wheezes, rales, rhonchi, or retractions Abd: soft, non-tender, non-distended, normal bowel sounds, no rebound or guarding, no peritoneal signs, no CVAT Musculoskeletal: full range of motion of arms and legs, no tenderness to palpation. no clubbing, cyanosis, or edema Neurologic: appropriate for age, strength normal Psych: alert and oriented Skin: no petechiae, no lesions, warm and dry Objective Last Vital Signs Temp 36.0 C L 02/14/23 15:09 Pulse 69 02/14/23 15:09 Resp 18 02/14/23 15:09 BP 131/78 02/14/23 15:09 Pulse Ox 99 02/14/23 15:09 Laboratory Results - last 24 hr 02/14/23 02/14/23 02/14/23 06:20 06:20 13:10 WBC 5.96 RBC 3.78 L Hgb 11.8 L Hct 33.3 L MCV 88 MCH 31.2 MCHC 35.4 RDW 12.9 Plt Count 138 MPV 13.0 H Immature Gran % 0.3 Neutrophils % 68.8 Lymphocytes % 16.8 Monocytes % 10.4 Eosinophils % 3.2 Basophils % 0.5 Nucleated RBC % 0.0 Absolute Neutrophils 4.10 Absolute Lymphocytes 1.00 L Absolute Monocytes 0.62 Absolute Eosinophils 0.19 Absolute Basophils 0.03 Sodium 138 Potassium 4.7 Chloride 105 Carbon Dioxide 20.5 L Anion Gap 12.5 H BUN 68 H Creatinine 4.6 H* Est GFR (CKD-EPI 2020) 13.13 Glucose 164 H Calcium 9.0 Magnesium 2.1 COVID-19 Source Nasal/Nares SARS-CoV-2 (PCR) Negative PAWSS Pt Consumed Any Amount of Alcohol Within the Last 30 days OR had positive HECTOR Upon Admission: No Time Spent with Patient Time Spent with Patient: 25-34 minutes Time was spent: preparing to see the patient(eg.review tests), obtaining and/or reviewing separately otained hiistory, ordering medications,tests, procedures, indepentently interpreting results and counseling the patient
[2023-02-14] MEDS: Enoxaparin 30 MG/0.3 ML SYR SC (17:18)
[2023-02-14 19:24] VITALS: BP 120/75; PULSE 81; RESP 18; TEMP 36.8; O2SAT 98
[2023-02-14] MEDS: Tamsulosin 0.4 MG CAPCR 0.8 MG PO (20:17)
[2023-02-14] MEDS: Finasteride 5 MG TAB PO (20:18)
[2023-02-14 23:09] VITALS: BP 137/91; PULSE 82; RESP 18; TEMP 37.1; O2SAT 97
[2023-02-15 03:30] VITALS: BP 135/81; PULSE 67; RESP 18; TEMP 35.6; O2SAT 94
[2023-02-15 06:48] VITALS: BP 148/70; PULSE 70; RESP 20; TEMP 36.8; O2SAT 93
[2023-02-15 06:51] LABS: Abs Immature Grans 0.01 10^3/uL (0.0-0.06); Absolute Basophil Count 0.03 10^3/uL (0.0-0.2); Absolute Eosinophil Count 0.22 10^3/uL (0.0-0.7); Absolute Lymphocyte Count 1.05 10^3/uL (1.2-3.4); Absolute Monocyte Count 0.55 10^3/uL (0.1-0.8); Absolute Neutrophil Count 3.68 10^3/uL (1.2-6.7); Basophils % 0.5; HCT 31.7 % (40.0-50.0); HGB 11.1 g/dL (13.5-17.5); Immature Grans % 0.2; MCH 30.7 pg (27.0-33.0); MCV 88 fL (80-95); MPV 12.8 fL (8.0-11.0); Monocytes % 9.9; Neutrophils % 66.4; Platelet Count 126 10^3/uL (130-400); RBC 3.61 10^6/uL (4.36-5.78); RDW 12.8 % (11.8-14.1); RDW-SD 40.8 fL; WBC 5.54 10^3/uL (4.4-10.8)
[2023-02-15 07:10] LABS: Anion Gap 11.7 mmol/L (3-11); BUN 71 mg/dL (7-18); CO2 20.3 mmol/L (21.0-32.0); Calcium 8.9 mg/dL (8.5-10.1); Chloride 102 mmol/L (98-107); Estimated GFR 13.49 (mL/min/1.73m2); Glucose 166 mg/dL (74-106); Magnesium 1.9 mg/dL (1.8-2.4); Potassium 4.6 mmol/L (3.5-5.1); Sodium 134 mmol/L (136-145)
[2023-02-15 07:18] LABS: CREATININE 4.5 mg/dL (0.70-1.30)
[2023-02-15] MEDS: Lidocaine 5% Patch 2 PATCH TP (07:36)
[2023-02-15] MEDS: Sucralfate 1 GM TAB PO (07:37)
[2023-02-15] MEDS: Benzonatate 100 MG CAP PO ×2 (07:37→14:24)
[2023-02-15] MEDS: Gabapentin 100 MG CAP PO ×2 (07:37→14:24)
[2023-02-15] MEDS: Omeprazole 20 MG CAPCR 40 MG PO (07:37)
[2023-02-15] MEDS: Ondansetron O.D.T. 4 MG TABEF PO (07:40)
[2023-02-15] MEDS: Insulin Aspart 300 UNITS/3 ML PEN SC ×2 (07:43→12:21)
--- NOTE | 2023-02-15 07:47 | OT.INTREAT ---
Occupational Therapy Notes Occupational Therapy Inpatient Treatment Note Date: 02/15/23 PRECAUTIONS: Fall, standard, full SUBJECTIVE: Pt was seated in chair when OT arrived, he is agreeable to performance of ADLs and alert and pleasant this morning. OBJECTIVE: PAIN:c/o pain in (R) knee- RN aware of pts pain BATHING: seated with max (A) set up/clean up Upper Body: (I) face and (B) UE and abdomen, max (A) back and hair Lower Body: (I) (B) LE to knees DRESSING: Upper Extremity: min (A) with gown facilitation but otherwise with (A) with set up of the gown he was (I) Lower Extremity: mod (A) with donning socks d/t knee pain today TOILETING: Device: Benedict in place ASSESSMENT/PLAN: Pt was functionally very (I) today in regards to his ADL/IADL routines. He was receptive to performance, pleasant and able to demonstrate increased (I). He required min vc throughout but min (A) with his routines. He was having some (R) knee and foot pain. His chart indicates that he may leave for SNF. If pt is still admitted tomorrow we will attempt to work on standing ADLs as tolerated. TREATMENT CODES/TIME: 68400, 20 minutes [facility] [place], [place]
[2023-02-15] MEDS: Losartan 25 MG TAB 12.5 MG PO (08:46)
[2023-02-15] MEDS: Metoprolol CR 25 MG TABCR PO (08:47)
[2023-02-15 11:00] VITALS: BP 109/71; PULSE 86; TEMP 36.2; O2SAT 98
--- NOTE | 2023-02-15 13:40 | PT.INTREAT ---
Date of service: 02/15/23 Time of Service: 13:04 PT Notes Visit Reasons: Weakness, CHF, Orthopnea Inpatient Physical Therapy Treatment Note [facility] Date: 02/15/23 PRECAUTIONS: Fall, standard, activity as tolerated. SUBJECTIVE: Patient sitting up in recliner, agreeable to therapy. When asked how he feels today, he states he feels screwed but declines to elaborate. OBJECTIVE: ? PAIN: none reported. VITALS: monitored by nursing staff. ? Therapeutic Exercises (53636n8): Direct one-on-one instruction in therapeutic exercises to develop strength, endurance, range of motion and flexibility. ?Ambulation ? Assistive Device: SPC ? Weight bearing: full Assist: CGA ? Distance:? 600 feet total. No rests first 300 feet. 3 standing rests in second 300 feet, each lasting <2 minutes. ? Deviation: Patient reports feeling fatigued, weak. Does lose his balance x1 at approximately 550 feet, recovers without assistance. ? Provided skilled instruction in proper exercise performance ASSESSMENT:?Patient appears to tolerate therapy well, however expresses frustration at continuing to feel so weak and tired. PLAN: continue global strengthening per plan of care until patient is medically cleared for discharge. TREATMENT CODE/TIME: 56489 Ther Ex 14 minutes beginning at 13:04
[2023-02-15 14:50] VITALS: BP 98/64; PULSE 74; TEMP 36; O2SAT 98
--- NOTE | 2023-02-15 14:54 | W.PM.DS.N ---
Date of service: 02/15/23 Time of Service: 14:54 DS: Diagnosis Discharge Diagnosis (1) Gastritis: Status: Acute (2) Weakness: Status: Acute (3) Acute exacerbation of congestive heart failure: Status: Resolved (4) Nonadherence to medication: Status: Acute (5) CLEM (acute kidney injury): Status: Resolved (6) Acute urinary retention: Status: Chronic (7) Heart failure with reduced ejection fraction: Status: Chronic (8) Hypertension: Status: Chronic (9) Schizophrenia: Status: Chronic (10) Diabetes mellitus type 2 in obese: Status: Acute (11) Discharge planning issues: Status: Acute (12) DVT prophylaxis: Status: Acute Discharge Plan Disposition Patient Disposition: Residential Facility(SNF) Condition: Fair Discharge Details Reason For Visit: Weakness, CHF, Orthopnea Admit Date/Time: 02/12/23 18:51 Admit Provider: Hugo Santiago Attending Provider: Hugo Santiago Primary Care Provider: Unknown,Unknown Hospital Course Hospital Course: This is a 67-year-old male patient who lives alone in an apartment in [facility]..? He has schizophrenia and recently decided to stop taking his olanzapine because it makes him sicker, who presented to the [facility] ED on 02/09/23 with complaint of shortness of breath and feeling increasingly weak. He was admitted to [facility] 01/18 with fluid overload and renal failure. He was thought to have obstructive uropathy and a alfaro catheter was placed. His creatinine did not improve. He was seen by the cardiology service and his medications were adjusted. The urology service at [facility] saw the patient and started him on tamsulosin and finasteride.? We have contacted nephrology service and cardiology service at [facility] for referrals and appointments. He has seen Dr. Patterson and not felt to be a candidate for a voiding trial because of med noncompliance.? Once he had a period of taking the finasteride and tamsulosin for a long period of time then the plan was to consider a voiding trial.? He is not due to see Dr. Patterson back until February. His creatinine is 4.5 today, BUN 71, which is his baseline, he is making urine; glucose 160s, otherwise normal lab values. He was found to be taking ibuprofen and naprosyn three times daily. Ibuprofen has been discontinued. Glipizide has been decreased to 10 mg daily from 20 mg daily secondary to renal failure. He has not had olanzapine this admission and is doing well. Recommend psychiatry follow up for medication management. Patient's vital signs are stable HR 70, BP 148/70, SPO2 93% RA and afebrile 36.8c. Patient is a full code. Home Meds and New Rx's Prescriptions: New polyethylene glycol 3350 17 gram Powder In Packet 17 g PO DAILY PRN PRN (Reason: Constipation) Qty: 0 0RF sucralfate 1 gram Tablet 1 g PO BID Qty: 0 0RF benzonatate 100 mg Capsule 100 mg PO TID Qty: 0 0RF docusate sodium [Colace] 100 mg Capsule 100 mg PO BID Qty: 0 0RF omeprazole 20 mg Capsule,Delayed Release(Dr/Ec) 40 mg PO BID@0730,1999 Qty: 0 0RF gabapentin 100 mg Capsule 100 mg PO TID Qty: 0 0RF ondansetron 4 mg Tablet,Disintegrating 4 mg PO Q8H PRN PRNQty: 0 0RF Bengay Greaseless Cream 0 g topical PRN PRNQty: 0 0RF glipizide 10 mg Tablet Extended Release 24hr 10 mg PO DAILY Qty: 0 0RF Continued gabapentin 100 mg capsule 100 mg PO TID Patient Comments: pt states not taking finasteride 5 mg tablet 5 mg PO DAILY metoprolol succinate 25 mg tablet extended release 24 hr 25 mg PO DAILY Patient Comments: pt states not taking Rx Instructions: *Patient unsure if taking naproxen sodium [Aleve] 220 mg tablet 440 mg PO TID Patient Comments: pt states not taking tamsulosin [Flomax] 0.4 mg capsule 0.8 mg PO QHS triamcinolone acetonide 0.1 % Cream 1 applic TOPICAL PRN PRN Patient Comments: pt states not taking betamethasone dipropionate 0.05 % Cream 1 applic TOPICAL PRN PRN albuterol sulfate [ProAir HFA] 90 mcg/actuation Hfa Aerosol Inhaler 2 puff INHALATION QID PRN ketoconazole 2 % Cream 1 applic TOPICAL PRN PRN Discontinued ibuprofen 200 mg tablet 400 mg PO TID glipizide 10 mg Tablet Extended Release 24hr 20 mg PO DAILY Patient Comments: pt states not taking Rx Instructions: *Patient unsure if taking No Action losartan 25 mg tablet 12.5 mg PO DAILY Patient Comments: pt states not taking Rx Instructions: *Patient unsure if taking Discharge Instructions Additional Instructions: Recommend stopping iburprofen, in setting of CRF; he takes Naprosyn, recommend decreasing frequency. Referrals: [facility] Cardiology [Other] - 04/28/23 2:00 pm Activity:: Activity as Tolerated Equipment/Supplies:: No Equipment Needed Diet:: Carb Counting Discharge Orders Discharge Orders: Discharge Order (Routine); Ordered 02/15/23 Ordered By: Nani Taylor DS: Summary Time Spent with Patient providing and/or coordinating discharge services: Greater than 30 minutes Status at Discharge Functional status at discharge: uses cane/walker Overall status at discharge: patient is progressing back to baseline Mental Status: mental status grossly normal (at baseline) Speech and Movement: speech and movement normal Mood: anxious mood Affect: normal affect Exam Narrative Exam Narrative: General: non-toxic, no respiratory distress, comfortable, sitting in recliner in the room, feet up, with legs moving most of the time, nervous energy HEENT: normocephalic, atraumatic, lids and lashes normal, PERRL, EOMI, anicteric sclera, no conjunctival injection, moist oral mucosa Card: regular rate and rhythm, S1S2, no murmurs, rubs, or gallops Lungs: good air entry, clear to auscultation bilaterally. no wheezes, rales, rhonchi, or retractions Abd: soft, non-tender, non-distended, normal bowel sounds, no rebound or guarding, no peritoneal signs, no CVAT Musculoskeletal: full range of motion of arms and legs, no tenderness to palpation. no clubbing, cyanosis, or edema Neurologic: appropriate for age, strength normal Psych: alert and oriented Skin: no petechiae, no lesions, warm and dry Psych Mental Status: mental status grossly normal (at baseline) Speech and Movement: speech and movement normal Mood: anxious mood Affect: normal affect DS: Data Vitals/I&O Vitals and I&O: Vital Signs Temperature 36.0 C L 02/15/23 14:50 Temperature Source Tympanic 02/15/23 14:50 Pulse 74 02/15/23 14:50 Pulse Rhythm Regular 02/15/23 14:35 Pulse 71 02/09/23 16:31 Respiratory Rate 20 02/15/23 06:48 Respiratory Effort Normal, Non-Labored 02/15/23 14:35 Respiratory Depth Normal 02/15/23 14:35 Respiratory Pattern Normal 02/15/23 14:35 Blood Pressure 98/64 L 02/15/23 14:50 Blood Pressure Mean 97 02/09/23 16:31 Blood Pressure Position Sitting 02/09/23 12:05 Pulse Oximetry 98 02/15/23 14:50 Oxygen Delivery Method Room Air 02/15/23 14:50 Oxygen Flow Rate 0 02/15/23 14:50 Pain Level 5 02/15/23 14:50 Comment rn notified of bp 02/10/23 11:24 Intake & Output 02/14/23 02/15/23 02/15/23 23:59 11:59 23:59 Intake Total 480 / 1030 Output Total 650 / 875 600 / 1300 700 / 1300 Balance -170 / 155 -600 / -1300 -700 / -1300 Weight 98.2 kg Intake: Oral 480 / 1030 Output: Urine 650 / 875 600 / 1300 700 / 1300 Other: Urine Color Yellow Yellow Yellow Urine Appearance Clear Clear Clear Stool Size Moderate Stool Characteristics Formed Hard Data Completed and Pending Labs on day of discharge: Labs from last 24 hours 02/15/23 02/15/23 06:22 06:22 WBC 5.54 RBC 3.61 L Hgb 11.1 L Hct 31.7 L MCV 88 MCH 30.7 MCHC 35.0 RDW 12.8 Plt Count 126 L MPV 12.8 H Immature Gran % 0.2 Neutrophils % 66.4 Lymphocytes % 19.0 Monocytes % 9.9 Eosinophils % 4.0 Basophils % 0.5 Nucleated RBC % 0.0 Absolute Neutrophils 3.68 Absolute Lymphocytes 1.05 L Absolute Monocytes 0.55 Absolute Eosinophils 0.22 Absolute Basophils 0.03 Sodium 134 L Potassium 4.6 Chloride 102 Carbon Dioxide 20.3 L Anion Gap 11.7 H BUN 71 H Creatinine 4.5 H* Est GFR (CKD-EPI 2020) 13.49 Glucose 166 H Calcium 8.9 Magnesium 1.9 PFSH All Active Problems (Updated 02/11/23 @ 16:58 by Dennise Gonzalez MD) Gastritis (Acute) DVT prophylaxis (Acute) Weakness (Acute) Nonadherence to medication (Acute) Acute urinary retention (Chronic) Heart failure with reduced ejection fraction (Chronic) Hypertension (Chronic) Schizophrenia (Chronic) Diabetes mellitus type 2 in obese (Acute) Discharge planning issues (Acute) Medical History (Updated 02/11/23 @ 16:58 by Dennise Gonzalez MD) Acute dyspnea Anemia Asthma exacerbation in COPD CAP (community acquired pneumonia) CHF (congestive heart failure) CHF exacerbation Depression Eczema High cholesterol Panic attacks Surgical History (Updated 02/09/23 @ 17:21 by Austin Ponce MD) Hx of hernia repair Social History Smoking/Tobacco Use Status: Never Smoking risk assessment performed?: Yes Alcohol Intake: never Drug use: Never Substance use type: does not use Housing: apartment What type of physical activity do you participate in: none Do you feel safe at home: Yes Do you feel safe in your relationship?: Yes Time Spent with Patient Time Spent with Patient: 45-69 minutes Time was spent: preparing to see the patient(eg.review tests), ordering medications,tests, procedures, referring, communicating with other health medicare contact specialist, indepentently interpreting results, counseling the patient and care coordination
--- NOTE | 2023-02-15 15:12 | CMDISCH_ITS ---
Date of service: 02/15/23 Time of Service: 15:28 LACE Index Scoring Tool Questions: Length of Stay (in days): 3 Was the patient admitted via the E.D.?: Yes Comorbidities: Diabetes w/o Complication, Congestive Heart Failure and Liver or Renal Disease E.D. Visits: 2 Answers: Total Score: 13 Risk of Readmission: High Risk Care Management Discharge Plan Reason for Hospitalization: CHF, weakness, orthopnea Discharge Plan: Miguel will transfer to [facility] today for short term rehab prior to returning home. CM called [facility] [facility]PERATOR to inform them of this transition of care. He will transport via facility w/c van, coordinated by CM. He will follow up with his PCP and discharge plan of care. He is happy to be going to [facility]. Patient/Family Education Needs: Review discharge instructions and limitations, discussion of self care needs including ask me three. Services Needed at Discharge: Snf Facility ([facility]) and Transportation (facility w/c van) MH Services (Omit if N/A) Current MH Services: [employer] [facility]
--- NOTE | 2023-02-15 17:00 | PT.INDS ---
Date of service: 02/15/23 PT Notes Visit Reasons: Weakness, CHF, Orthopnea Physical Therapy Inpatient Discharge Summary Date: 02/15/2023 Dates of service: 02/10/2023 through 02/15/2023 This is a clinical summary of care provided for the duration of dates listed above. No charge was made in the completion of this documentation. Referring Doctor:Brock Gonzalez PT Orders: PT CONSULT: Limited ability Precautions: standard Patient Profile/Admitting Diagnosis:?? Miguel is a 67 yo male presented to the ED via EMS with a chief complaint of shortness of breath and gagging when lying down on 02/09/2023.? He reported this was worsening over the last week.? Patient was seen on the above dates for functional mobility progression, strengthening, and balance retraining. PMHX: All Active Problems?(Updated 02/09/23 @ 17:21 by Austin Ponce MD) Weakness (Acute) Nonadherence to medication (Acute) Acute exacerbation of congestive heart failure (Acute) CLEM (acute kidney injury) (Acute) Acute urinary retention (Acute) Heart failure with reduced ejection fraction (Acute) Hypertension (Chronic) Schizophrenia (Chronic) Diabetes mellitus type 2 in obese (Acute) Discharge planning issues (Acute) Medical History?(Updated 02/09/23 @ 17:21 by Austin Ponce MD) Acute dyspnea Anemia Asthma exacerbation in COPD CAP (community acquired pneumonia) CHF (congestive heart failure) CHF exacerbation Depression DVT prophylaxis Eczema High cholesterol Panic attacks Surgical History?(Updated 02/09/23 @ 17:21 by Austin Ponce MD) Hx of hernia repair Social History/Home Situation: Lives alone at [facility] apartments.? He states that he was at [facility] end of December begining of January for over a week due to kidney failure.? He states his home is a 'mess' and in terrible condition and that he cannot clean or manage.? He states that he does not have enough energy to cook, clean, unable to step into tub shower so spoinge baths.? He has an elevator, does not drive, and states he has no family in the area. Equipment Owned/DME: RW Subjective: NT. See most recent APPLICATIONS DEVELOPMENT CONSULTANT notes. Objective:? General Observation: NT. See most recent APPLICATIONS DEVELOPMENT CONSULTANT notes. Mental Status: NT. See most recent APPLICATIONS DEVELOPMENT CONSULTANT notes. Pain: NT. See most recent APPLICATIONS DEVELOPMENT CONSULTANT notes. ROM: Right Upper Extremity:WFL Left Upper Extremity: WFL Right Lower Extremity: WFL Left Lower Extremity: WFL Strength: Right Upper Extremity: Generally 3/5 Left Upper Extremity: Generally 3/5 Right Lower Extremity: Generally 3/5 Left Lower Extremity: Generally 3/5 Sensation:? Intact to light touch throughout Bed Mobility/Transfers:? Sit to stand: Stand by assist Stand to sit: Stand by assist Gait:? Assistive Device: SPC ? Weight bearing: full Assist: CGA ? Distance:? 600 feet total. No rests first 300 feet. 3 standing rests in second 300 feet, each lasting <2 minutes.? Deviation: Patient reports feeling fatigued and weak. Balance:? Static Sitting: Good Dynamic Sitting: Fair Static Standing: Fair holding onto RW Dynamic Standing: Poor Assessment:?? Patient is a 67 year old male referred to physical therapy services with the diagnosis of weakness, CLEM, nonadherence to medication, history of CHF.? Patient presents with clinical signs and symptoms consistent with? weakness, CLEM, nonadherence to medication. Received ?PT intervention to address functional deficits/impairments and reduce fall risk. He is transferred to SNF today for continued rehabilitation. Goals: Goals X1 week 1. Supine-Sit independent NOT MET 2. Sit-Supine independent NOT MET 3. Sit-Stand independent NOT MET 4. Stand-Sit independent NOT MET 5. Bed-Chair independent NOT MET 6. Chair-Bed independent NOT MET 7. Gait ambulate with least AD safely and independent NOT MET 8. Stairs able to assess NOT MET 9. Independent with home exercise program NOT MET 10. Balance achieved good static and dynamic standing balance and normal static and dynamic sitting balance NOT MET 11.? Improve sufficient endurance to be able to perform ADLs NOT MET 12.? Able to get in and out of tub shower NOT MET DISCHARGE RECOMMENDATIONS: SNF for continued rehabilitation? TREATMENT CODE/TIME:? NC Thank you for the opportunity to participate in the care of this patient. Wanda Thomas PT, DPT, CLT [facility] [place], [place]
--- NOTE | 2023-02-16 07:19 | OT.INDS ---
Occupational Therapy Notes Occupational Therapy Inpatient Discharge Summary Date: 02/16/23 Dates of Service: 02/12/23-02/15/23 Referring Doctor:Dennise Gonzalez MD OT Orders: Non urgent Precautions: Fall, standard, full *This document serves as a summary of care, no skilled OT services provided for this documentation* PATIENT PROFILE/ADMITTING DIAGNOSIS: Pt is a 67 year old male who was admitted through the ED on 02/09/23 with a clinical impression of ?Weakness, CLEM (acute kidney injury), Nonadherence to medication, and CHF (congestive heart failure). Past Medical History: All Active Problems?(Updated 02/09/23 @ 17:21 by Austin Ponce MD) Weakness (Acute) Nonadherence to medication (Acute) Acute exacerbation of congestive heart failure (Acute) CLEM (acute kidney injury) (Acute) Acute urinary retention (Acute) Heart failure with reduced ejection fraction (Acute) Hypertension (Chronic) Schizophrenia (Chronic) Diabetes mellitus type 2 in obese (Acute) Discharge planning issues (Acute) Medical History?(Updated 02/09/23 @ 17:21 by Austin Ponce MD) Acute dyspnea Anemia Asthma exacerbation in COPD CAP (community acquired pneumonia) CHF (congestive heart failure) CHF exacerbation Depression DVT prophylaxis Eczema High cholesterol Panic attacks Surgical History?(Updated 02/09/23 @ 17:21 by Austin Ponce MD) Hx of hernia repair Social History/Home Situation: Pt states that he lives in an apartment and he needs someone to come clean it as soon as possible. He reports that he can do everything himself except clean but he does need help he reports right now because he has a alfrao. He is unable to provide a clear baseline level of function. He notes that he has no issues with getting dress or eating. SUBJECTIVE:??NT OBJECTIVE:? ROM: RUE AROM WFL L UE AROM WFL STRENGTH: RUE 3+/5 throughout LUE 3+/5 throughout FUNCTIONAL MOBILITY/ADLS:? *Based off assessment of last tx note- no skilled OT services provided on this date* BATHING:?seated with max (A) set up/clean up Upper Body: (I) face and (B) UE and abdomen, max (A) back and hair Lower Body: (I) (B) LE to knees DRESSING:? Upper Extremity: min (A) with gown facilitation but otherwise with (A) with set up of the gown he was (I) Lower Extremity: mod (A) with donning socks d/t knee pain today TOILETING: Device: Alfaro in place BALANCE: Static sitting Good Dynamic Sitting Good ASSESSMENT:?? Patient is a 67-year-old male referred to occupational therapy services with diagnosis of gastritis, weakness, nonadherence to medication, acute exacerbation of Congestive heart failure, CLEM, acute urinary retention, heart failure with reduced ejection fraction, HTN, schizophrenia. Patient was seen for evaluation and 1 other skilled OT session where he made increased gains in his functional (I). GOALS ADLs met in seated position but not in standing 1.? Grooming- standing at sink pt will be (I) with oral hygiene 2.? Dressing- seated (I) 3.? Bathing- standing at sink (R) 4.? Toileting- (I) 5.? Eating (I)- met PLAN OF CARE/TREATMENT PLAN: Discharged 02/15/23 DISCHARGE RECOMMENDATIONS SNF when medically cleared per MD TREATMENT TIME/MINUTES/CODES N/A Sarah Suh OTR/L [facility] [place], [place]
== END 2023-02-15 16:22 | disposition skilled nursing facility (03) | DRG 291 ==
LOC: ER 16:31 → MS 02-10 07:24
PROVIDERS: Family Medicine; Internal Medicine; Nurse Practitioner Family; Admitting Provider Internal Medicine; Emergency Provider Registered Nurse Emergency; Visit Provider Internal Medicine
DX: I13.0 Hypertensive heart and chronic kidney disease with heart failure and stage 1 through stage 4 chronic kidney disease, or unspecified chronic kidney disease (principal); I50.23 Acute on chronic systolic (congestive) heart failure; N17.9 Acute kidney failure, unspecified; R53.1 Weakness; Z91.148 Patient's other noncompliance with medication regimen for other reason; R33.8 Other retention of urine; F20.9 Schizophrenia, unspecified; E66.9 Obesity, unspecified; Z68.36 Body mass index [BMI] 36.0-36.9, adult; N18.9 Chronic kidney disease, unspecified; E11.22 Type 2 diabetes mellitus with diabetic chronic kidney disease; D64.9 Anemia, unspecified; F32.A Depression, unspecified; L30.9 Dermatitis, unspecified; E78.00 Pure hypercholesterolemia, unspecified; F41.0 Panic disorder [episodic paroxysmal anxiety]; Z79.84 Long term (current) use of oral hypoglycemic drugs; N40.0 Benign prostatic hyperplasia without lower urinary tract symptoms; K40.20 Bilateral inguinal hernia, without obstruction or gangrene, not specified as recurrent; K29.60 Other gastritis without bleeding; J44.9 Chronic obstructive pulmonary disease, unspecified
CPT/HCPCS: 36415; 71250; 80048; 80053; 82550; 82805; 83690; 87426; 87635; 93005; 93306; 97110; 97116; 97162; 97166; 97530; 97535; 99222; 99285; 71045; 74176; 81003; 81015; 82565; 83036; 83735; 83880; 84484; 84540; 85025; 87086; 93010; 99232; 99239; 99284; G0378; J1650

== ENCOUNTER → 2023-02-11 07:45 | Outpatient (BNVA) | payer MEDICARE, MEDICAID, SELFPAY | PROVIDERS: Visit Provider Urology ==

== ENCOUNTER 2023-03-18 18:03 | Outpatient (REF) | payer MEDICARE, MEDICAID, SELFPAY ==
[2023-03-18 15:17] LABS: C & S Indicated? C&S Done As Ordered; WBC >50 HPF (0-5)
== END 2023-03-18 18:04 | disposition home or self-care (01) ==
LOC: LBN 18:03
PROVIDERS: Visit Provider Physician Assistant Medical
DX: N39.0 Urinary tract infection, site not specified (principal)
CPT/HCPCS: 87077; 81015; 87086; 87186

== ENCOUNTER 2023-03-20 13:00 | Outpatient (REF) | payer MEDICARE, MEDICAID, SELFPAY | END 2023-03-20 13:01 | disposition home or self-care (01) | LOC: LBN 13:00 | PROVIDERS: Visit Provider Physician Assistant Medical | DX: R33.9 Retention of urine, unspecified (principal); R82.79 Other abnormal findings on microbiological examination of urine | CPT/HCPCS: 87077; 87086; 87186 ==

== ENCOUNTER 2023-03-22 14:56 | Outpatient (REF) | payer MEDICARE, MEDICAID, SELFPAY ==
[2023-03-22 17:48] LABS: ALT 18 U/L (16-63); AST 11 U/L (15-37); Alkaline Phosphatase 100 U/L (46-116); Anion Gap 11.2 mmol/L (3-11); BUN 31 mg/dL (7-18); Bilirubin, Total 0.4 mg/dL (0.2-1.0); CO2 21.8 mmol/L (21.0-32.0); Calcium 8.9 mg/dL (8.5-10.1); Chloride 105 mmol/L (98-107); Estimated GFR 16.52 (mL/min/1.73m2); Glucose 181 mg/dL (74-106); Potassium 4.4 mmol/L (3.5-5.1); Sodium 138 mmol/L (136-145); Total Protein 6.2 g/dL (6.4-8.2)
[2023-03-22 17:52] LABS: CREATININE 3.8 mg/dL (0.70-1.30)
== END 2023-03-22 14:57 | disposition home or self-care (01) ==
LOC: LBN 14:56
PROVIDERS: Visit Provider Nurse Practitioner Family
DX: N17.9 Acute kidney failure, unspecified (principal); I10 Essential (primary) hypertension
CPT/HCPCS: 80053

== ENCOUNTER → 2023-04-14 07:54 | Outpatient (BNVA) | payer MEDICARE, MEDICAID, SELFPAY | PROVIDERS: Visit Provider Nurse Practitioner Gerontology | DX: Z46.6 Encounter for fitting and adjustment of urinary device (principal); R33.9 Retention of urine, unspecified | CPT/HCPCS: 00123; 51702; 87077; 99213; 99284; 81003; 81015; 87086; 87186; 99283 ==

== ENCOUNTER 2023-04-14 23:02 | Emergency (ER) | payer MEDICARE, MEDICAID, SELFPAY ==
[2023-04-14 23:02] VITALS: BP 126/77; PULSE 73; RESP 16; TEMP 36.1; O2SAT 99
[2023-04-14 23:09] VITALS: BP 126/77; PULSE 73; RESP 16; TEMP 36.1; O2SAT 99
--- NOTE | 2023-04-14 23:10 | ED.GENADUL_ITS ---
Discharge Plan Disposition Patient Disposition: Home Discharge Details Chief Complaint: Urinary Clinical Impression: Acute urinary retention ED Provider: Liborio Perez Home Meds and New Rx's Prescriptions: No Action gabapentin 100 mg capsule 100 mg PO TID Patient Comments: pt states not taking finasteride 5 mg tablet 5 mg PO DAILY metoprolol succinate 25 mg tablet extended release 24 hr 25 mg PO DAILY Patient Comments: pt states not taking Rx Instructions: *Patient unsure if taking tamsulosin [Flomax] 0.4 mg capsule 0.8 mg PO QHS losartan 25 mg tablet 12.5 mg PO DAILY Patient Comments: pt states not taking Rx Instructions: *Patient unsure if taking triamcinolone acetonide 0.1 % Cream 1 applic TOPICAL PRN PRN Patient Comments: pt states not taking betamethasone dipropionate 0.05 % Cream 1 applic TOPICAL PRN PRN albuterol sulfate [ProAir HFA] 90 mcg/actuation Hfa Aerosol Inhaler 2 puff INHALATION QID PRN ketoconazole 2 % Cream 1 applic TOPICAL PRN PRN polyethylene glycol 3350 17 gram Powder In Packet 17 g PO DAILY PRN PRN (Reason: Constipation) Qty: 0 0RF sucralfate 1 gram Tablet 1 g PO BID Qty: 0 0RF benzonatate 100 mg Capsule 100 mg PO TID Qty: 0 0RF docusate sodium [Colace] 100 mg Capsule 100 mg PO BID Qty: 0 0RF omeprazole 20 mg Capsule,Delayed Release(Dr/Ec) 40 mg PO BID@0730,2000 Qty: 0 0RF gabapentin 100 mg Capsule 100 mg PO TID Qty: 0 0RF ondansetron 4 mg Tablet,Disintegrating 4 mg PO Q8H PRN PRNQty: 0 0RF Bengay Greaseless Cream 0 g topical PRN PRNQty: 0 0RF glipizide 10 mg Tablet Extended Release 24hr 10 mg PO DAILY Qty: 0 0RF Discharge Instructions Instructions: Urinary Retention in Men (ED), Benedict Catheter Placement and Care (ED) Additional Instructions: Please follow-up closely with urology for further discussion of prostate surgery versus chronic Benedict catheter use. If you notice any worsening of your symptoms, or any new symptoms such as vomiting, diarrhea, fever, chills, shortness of breath, chest pain, numbness, weakness, or fainting , please return immediately to the emergency department for reevaluation. Please follow up with your primary care provider as soon as possible for reassessment and reevaluation. As always, it was a pleasure participating in your medical care today. Referrals: Pb Patterson MD [ [facility] STAFF PHYSICIAN] - Tiffanie Muñoz DNP [NURSE PRACTITIONER] - Medical Decision Making This is a 67-year-old male with a past medical history of schizophrenia, hypertension, type 2 diabetes, heart failure, also more recently urinary retention. Please see very detailed note by Tiffanie Muñoz about his recent ups and downs for urinary retention. Today earlier this morning the patient had his Benedict catheter removed that had been in for the last few weeks. Voiding trial and education were performed and the patient managed this well. He is able to void small amounts/small trickles throughout the day, however at 8 PM he was no longer able to urinate. He began building up pressure in the suprapubic region, and eventually called EMS to be brought in for further assessment. He denies any vomiting or diarrhea. He denies fever or chills. Benedict catheter was removed without complication or difficulty. No other complaints at this time. He has been taking his finasteride and his Flomax at home as prescribed. He denies any blood or clots. He is not on a blood thinner. Exam demonstrates well-appearing male, mild suprapubic pressure. Genital exam otherwise unremarkable. Differential is highest for urinary retention secondary to prostatic hypertrophy. Will replace Benedict catheter. 11:41 PM Benedict catheter placed, no complications, 5 to 600 cc of urine were collected. Urinalysis shows negative nitrites, only trace leuk esterase and some WBCs. We will hold off on any treatment until cultures return. No fever or tachycardia to suggest infection otherwise. Will give Benedict leg bag for home use or strap per patient request. Will recommend follow-up with urology this week. I have extensively reviewed the treatment plan and discharge instructions with the patient. I have addressed all patient concerns at this time. The patient was made aware of what symptoms to monitor for that would warrant a return to the emergency department. Discussed the plan with the patient, they demonstrate verbal understanding and agreement with our assessment and plan at this time. The documentation in this chart was dictated using [employer] dictation software. Please excuse any dictation errors. HPI General Date/Time Provider Initiated Documentation: 04/14/23 23:09 . HPI Narrative: This is a 67-year-old male with a past medical history of schizophrenia, hypertension, type 2 diabetes, heart failure, also more recently urinary retention. Please see very detailed note by Tiffanie Muñoz about his recent ups and downs for urinary retention. Today earlier this morning the patient had his Benedict catheter removed that had been in for the last few weeks. Voiding trial and education were performed and the patient managed this well. He is able to void small amounts/small trickles throughout the day, however at 8 PM he was no longer able to urinate. He began building up pressure in the suprapubic region, and eventually called EMS to be brought in for further assessment. He denies any vomiting or diarrhea. He denies fever or chills. Benedict catheter was removed without complication or difficulty. No other complaints at this time. He has been taking his finasteride and his Flomax at home as prescribed. He denies any blood or clots. He is not on a blood thinner. Related Data Home Medications Medication Instructions Recorded Confirmed albuterol sulfate 90 mcg/actuation 2 puff inhalation QID PRN 08/23/19 04/14/23 aerosol inhaler (ProAir HFA) betamethasone dipropionate 0.05 % 1 applic topical PRN PRN 08/23/19 04/14/23 topical cream ketoconazole 2 % topical cream 1 applic topical PRN PRN 08/23/19 04/14/23 triamcinolone acetonide 0.1 % 1 applic topical PRN PRN 08/23/19 04/14/23 topical cream finasteride 5 mg tablet 5 mg PO DAILY 02/05/23 04/14/23 gabapentin 100 mg capsule 100 mg PO TID 02/05/23 04/14/23 losartan 25 mg tablet 12.5 mg PO DAILY 02/05/23 metoprolol succinate 25 mg 25 mg PO DAILY 02/05/23 tablet,extended release 24 hr tamsulosin 0.4 mg capsule (Flomax) 0.8 mg PO QHS 02/05/23 04/14/23 Bengay Greaseless Cream 0 g topical PRN PRN ##0 02/14/23 04/14/23 benzonatate 100 mg capsule 100 mg PO TID #0 caps 02/14/23 04/14/23 docusate sodium 100 mg capsule 100 mg PO BID #0 caps 02/14/23 (Colace) gabapentin 100 mg capsule 100 mg PO TID #0 caps 02/14/23 omeprazole 20 mg capsule,delayed 40 mg (2 x 20 mg) PO BID@0730,199902/14/23 release #0 caps ondansetron 4 mg disintegrating 4 mg PO Q8H PRN PRN #0 tabs 02/14/23 04/14/23 tablet polyethylene glycol 3350 17 gram 17 g PO DAILY PRN PRN Constipation 02/14/23 04/14/23 oral powder packet #0 ea sucralfate 1 gram tablet 1 g PO BID #0 tabs 02/14/23 04/14/23 glipizide 10 mg tablet, extended 10 mg PO DAILY #0 tabs 02/15/23 04/14/23 release 24 hr Previous Rx's Medication Instructions Recorded Bengay Greaseless Cream 0 g topical PRN PRN ##0 02/14/23 benzonatate 100 mg capsule 100 mg PO TID #0 caps 02/14/23 docusate sodium 100 mg capsule 100 mg PO BID #0 caps 02/14/23 (Colace) gabapentin 100 mg capsule 100 mg PO TID #0 caps 02/14/23 omeprazole 20 mg capsule,delayed 40 mg (2 x 20 mg) PO BID@0730,199902/14/23 release #0 caps ondansetron 4 mg disintegrating 4 mg PO Q8H PRN PRN #0 tabs 02/14/23 tablet polyethylene glycol 3350 17 gram 17 g PO DAILY PRN PRN Constipation 02/14/23 oral powder packet #0 ea sucralfate 1 gram tablet 1 g PO BID #0 tabs 02/14/23 glipizide 10 mg tablet, extended 10 mg PO DAILY #0 tabs 02/15/23 release 24 hr Allergies Allergy/AdvReac Type Severity Reaction Status Date / Time No Known Allergies Allergy Unverified 04/14/23 23:10 General Stated Complaint: Urinary MINERVA: 4 Review of Systems All systems reviewed & are unremarkable except as noted in HPI and below PFSH All Active Problems (Updated 04/14/23 @ 23:43 by Liborio Perez DO) Acute urinary retention (Acute) Weakness (Acute) Heart failure with reduced ejection fraction (Chronic) Hypertension (Chronic) Schizophrenia (Chronic) Diabetes mellitus type 2 in obese (Acute) Medical History CHF (congestive heart failure) Anemia Acute exacerbation of congestive heart failure Panic attacks High cholesterol Eczema Depression CAP (community acquired pneumonia) Acute dyspnea Asthma exacerbation in COPD CHF exacerbation Surgical History Hx of hernia repair Social History Smoking/Tobacco Use Status: Never Smoking risk assessment performed?: Yes Alcohol Intake: never Drug use: Never Substance use type: does not use Housing: apartment What type of physical activity do you participate in: none Do you feel safe at home: Yes Do you feel safe in your relationship?: Yes Exam Narrative Exam Narrative: 1.Const: Well-nourished, Well-developed, appearing stated age 2.Eyes: PERRL, no conjunctival injection, and symmetrical lids. 3.ENT: Atraumatic external nose and ears. Moist MM. Neck: Symmetric, trachea midline, No thyromegaly. 4.CVS: +S1/S2, No murmurs or gallops. Peripheral pulses 2+ and equal in all extremities. Brisk capillary refill in all extremities. 5.RESP: Unlabored respiratory effort. Clear to auscultation bilaterally. No wheezes rales or rhonchi 6.GI: Soft, Nontender/Nondistended, No hepatosplenomegaly. No guarding or rebound. Genital exam demonstrates nontender genitalia. Urethral meatus is unremarkable. Mild suprapubic pressure was noted. No abdominal tenderness 7.MSK: Normocephalic/Atraumatic, Extremities w/o deformity or ttp No cyanosis or clubbing, Normal movement of all extremities 8.Skin: Warm, Dry. No rashes or lesions. 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 Sensation grossly intact, no focal neurologic deficits. 10.Psych: (AAO) x3. Appropriate mood and affect Course Vital Signs Vital signs: Vital Signs Temperature 36.1 C L 04/14/23 23:02 Pulse 73 04/14/23 23:02 Respiratory Rate 16 04/14/23 23:02 Blood Pressure 126/77 04/14/23 23:02 Pulse Oximetry 99 04/14/23 23:02 Temperature 36.1 C L 04/14/23 23:09 Temperature Source Temporal Artery Scan 04/14/23 23:09 Pulse 73 04/14/23 23:09 Respiratory Rate 16 04/14/23 23:09 Respiratory Effort Normal, Non-Labored 04/14/23 23:07 Blood Pressure 126/77 04/14/23 23:09 Blood Pressure Position Supine 04/14/23 23:09 Pulse Oximetry 99 04/14/23 23:09 Oxygen Delivery Method Room Air 04/14/23 23:09 Oxygen Flow Rate 0 04/14/23 23:02 Pain Level 6 04/14/23 23:09
[2023-04-14 23:24] LABS: Bilirubin Negative (Negative); Blood Trace-intact (Negative); Clarity Clear (Clear); Glucose Negative (Negative); Ketones Negative (Negative); Leukocyte Esterase Small (Negative); Nitrite Negative (Negative); Specific Gravity <= 1.005 (1.005-1.025); Urobilinogen 0.2 mg/dL (Up to 0.2); pH 5.5 (5-8)
[2023-04-14] MEDS: Lidocaine 2% Jelly 11 ML SYR UR (23:30)
[2023-04-14 23:32] LABS: Bacteria Moderate HPF (Negative); C & S Indicated? Yes; Casts Negative LPF (Negative); Crystals Negative HPF (Negative); Epithelial Cells Rare HPF (Negative); Mucus Negative (Negative); Other Cells Rare Transitional (Negative); RBC 0-2 HPF (0-2)
--- NOTE | 2023-04-15 00:02 | NUR.NOTE ---
Pt placed on care management referral list for urology to be seen within 1 week for urine retention
--- NOTE | 2023-04-19 16:28 | ED.FU.B_ITS ---
Date of service: 04/19/23 Time of Service: 16:29 Follow Up Plan: Urine culture growing VRE. Sensitive to ampicillin. I called and spoke with Dr. Patterson, discussed diagnostic results. He recommends starting patient on Augmentin 250 3 times daily x7 days and he will follow-up with patient tomorrow. I called and spoke with the patient and discussed results with him and treatment plan. 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 He understands the importance of timely initiation of treatment.
--- NOTE | 2023-04-19 17:07 | NUR.NOTE ---
Lab called stating VRE in urine. Dr. Dykes asked to call in Augmentin 500mg BID for 7days with no refills. Delivery is done for today. Can deliver tomorrow. 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 Nursing Note:
--- NOTE | 2023-04-20 11:29 | W.EDPROG ---
Date of service: 04/20/23 Time of Service: 11:29 Medical Decision Making Patient called department today to say that antibiotics were aggravating his stomach, asked if we could change his antibiotics, after reviewing his microbiology report patient's UTI is susceptible to ampicillin, will continue with his Augmentin as prescribed. We will prescribe Zofran and famotidine to help with nausea. Patient to follow-up closely with urology. Home care instructions and strict return precautions given Discharge Plan Disposition Patient Disposition: Home Discharge Details Clinical Impression: Acute urinary retention Primary Care Provider: Reinier Arceo ED Provider: Liborio Perez Home Meds and New Rx's Prescriptions: New ondansetron HCl 4 mg tablet 4 mg PO BID PRN (Reason: nausea and vomiting) 4 Days Qty: 8 0RF famotidine 20 mg tablet 20 mg PO DAILY 7 Days Qty: 7 0RF No Action gabapentin 100 mg capsule 100 mg PO TID Patient Comments: pt states not taking finasteride 5 mg tablet 5 mg PO DAILY metoprolol succinate 25 mg tablet extended release 24 hr 25 mg PO DAILY Patient Comments: pt states not taking Rx Instructions: *Patient unsure if taking tamsulosin [Flomax] 0.4 mg capsule 0.8 mg PO QHS losartan 25 mg tablet 12.5 mg PO DAILY Patient Comments: pt states not taking Rx Instructions: *Patient unsure if taking triamcinolone acetonide 0.1 % Cream 1 applic TOPICAL PRN PRN Patient Comments: pt states not taking betamethasone dipropionate 0.05 % Cream 1 applic TOPICAL PRN PRN albuterol sulfate [ProAir HFA] 90 mcg/actuation Hfa Aerosol Inhaler 2 puff INHALATION QID PRN ketoconazole 2 % Cream 1 applic TOPICAL PRN PRN polyethylene glycol 3350 17 gram Powder In Packet 17 g PO DAILY PRN PRN (Reason: Constipation) Qty: 0 0RF sucralfate 1 gram Tablet 1 g PO BID Qty: 0 0RF benzonatate 100 mg Capsule 100 mg PO TID Qty: 0 0RF docusate sodium [Colace] 100 mg Capsule 100 mg PO BID Qty: 0 0RF omeprazole 20 mg Capsule,Delayed Release(Dr/Ec) 40 mg PO BID@0730,1999 Qty: 0 0RF gabapentin 100 mg Capsule 100 mg PO TID Qty: 0 0RF ondansetron 4 mg Tablet,Disintegrating 4 mg PO Q8H PRN PRNQty: 0 0RF Bengay Greaseless Cream 0 g topical PRN PRNQty: 0 0RF glipizide 10 mg Tablet Extended Release 24hr 10 mg PO DAILY Qty: 0 0RF Discharge Instructions Instructions: Urinary Retention in Men (ED), Benedict Catheter Placement and Care (ED) Additional Instructions: Please follow-up closely with urology for further discussion of prostate surgery versus chronic Benedict catheter use. If you notice any worsening of your symptoms, or any new symptoms such as vomiting, diarrhea, fever, chills, shortness of breath, chest pain, numbness, weakness, or fainting , please return immediately to the emergency department for reevaluation. Please follow up with your primary care provider as soon as possible for reassessment and reevaluation. As always, it was a pleasure participating in your medical care today. Referrals: Pb Patterson MD [ [facility] STAFF PHYSICIAN] - Tiffanie Muñoz DNP [NURSE PRACTITIONER] - Discharge Data Discharge Date/Time-TO BE ENTERED AT DEPARTURE: 04/14/23 23:55
== END 2023-04-14 23:55 | disposition home or self-care (01) ==
LOC: ER 04-15 00:24
PROVIDERS: Emergency Provider Student in an Organized Health Care Education/Training Program; PCP Physician Assistant
DX: N40.1 Benign prostatic hyperplasia with lower urinary tract symptoms (principal); R33.8 Other retention of urine; I11.0 Hypertensive heart disease with heart failure; I50.9 Heart failure, unspecified; E11.9 Type 2 diabetes mellitus without complications; Z79.84 Long term (current) use of oral hypoglycemic drugs; Z79.899 Other long term (current) drug therapy
CPT/HCPCS: 00123; 51702; 87077; 99284; 81003; 81015; 87086; 87186; 99283

== ENCOUNTER 2023-04-23 18:29 | Outpatient (REF) | payer MEDICARE, MEDICAID, SELFPAY ==
[2023-04-23 14:40] LABS: Bacteria Few HPF (Negative); C & S Indicated? C&S Done As Ordered; Casts Negative LPF (Negative); Crystals Negative HPF (Negative); Epithelial Cells Few HPF (Negative); Mucus Trace (Negative); WBC 20-50 HPF (0-5)
[2023-04-23 16:37] LABS: Abs Immature Grans 0.02 10^3/uL (0.0-0.06); Absolute Basophil Count 0.05 10^3/uL (0.0-0.2); Absolute Eosinophil Count 0.16 10^3/uL (0.0-0.7); Absolute Lymphocyte Count 0.79 10^3/uL (1.2-3.4); Absolute Monocyte Count 0.61 10^3/uL (0.1-0.8); Absolute Neutrophil Count 7.88 10^3/uL (1.2-6.7); Basophils % 0.5; Eosinophils % 1.7; HCT 33.7 % (40.0-50.0); HGB 10.7 g/dL (13.5-17.5); Immature Grans % 0.2; Lymphocytes % 8.3; MCH 29.1 pg (27.0-33.0); MCHC 31.8 % (32.0-36.0); MCV 92 fL (80-95); Monocytes % 6.4; Neutrophils % 82.9; Platelet Count 210 10^3/uL (130-400); RBC 3.68 10^6/uL (4.36-5.78); RDW 12.6 % (11.8-14.1); RDW-SD 42.5 fL; WBC 9.51 10^3/uL (4.4-10.8)
[2023-04-23 16:53] LABS: ALT 13 U/L (16-63); AST 11 U/L (15-37); Albumin 2.9 g/dL (3.4-5.0); Alkaline Phosphatase 93 U/L (46-116); Anion Gap 11.4 mmol/L (3-11); BUN 23 mg/dL (7-18); Bilirubin, Total 0.7 mg/dL (0.2-1.0); CO2 24.6 mmol/L (21.0-32.0); Calcium 8.9 mg/dL (8.5-10.1); Chloride 106 mmol/L (98-107); Estimated GFR 21.94 (mL/min/1.73m2); Glucose 109 mg/dL (74-106); Potassium 4.5 mmol/L (3.5-5.1); Sodium 142 mmol/L (136-145)
== END 2023-04-23 18:30 | disposition home or self-care (01) ==
LOC: LBN 18:29
PROVIDERS: PCP Physician Assistant; Visit Provider Physician Assistant Medical
DX: I50.42 Chronic combined systolic (congestive) and diastolic (congestive) heart failure (principal); R33.8 Other retention of urine
CPT/HCPCS: 80053; 87077; 81015; 85025; 87086; 87186

== ENCOUNTER 2023-04-28 12:27 | Outpatient (REF) | payer MEDICARE, MEDICAID, SELFPAY | END 2023-04-28 12:28 | disposition home or self-care (01) | LOC: LBN 12:27 | PROVIDERS: PCP Physician Assistant; Visit Provider Physician Assistant Medical | DX: N39.0 Urinary tract infection, site not specified (principal) | CPT/HCPCS: 81015; 87086 ==

== ENCOUNTER → 2023-05-26 09:40 | Outpatient (BNVA) | payer MEDICARE, MEDICAID, SELFPAY | PROVIDERS: PCP Physician Assistant; Visit Provider Nurse Practitioner Gerontology | DX: Z46.6 Encounter for fitting and adjustment of urinary device (principal); N40.1 Benign prostatic hyperplasia with lower urinary tract symptoms; R33.8 Other retention of urine | CPT/HCPCS: 51702 ==

== ENCOUNTER → 2023-06-24 13:51 | Outpatient (BNVA) | payer MEDICARE, MEDICAID, SELFPAY | PROVIDERS: PCP Physician Assistant; Referring Provider Physician Assistant; Visit Provider Nurse Practitioner Gerontology | DX: N40.1 Benign prostatic hyperplasia with lower urinary tract symptoms (principal); R33.8 Other retention of urine | CPT/HCPCS: 51702 ==

== ENCOUNTER → 2023-07-21 07:51 | Outpatient (BNVA) | payer MEDICARE, MEDICAID, SELFPAY | PROVIDERS: PCP Physician Assistant; Referring Provider Physician Assistant; Visit Provider Nurse Practitioner Gerontology | DX: N40.1 Benign prostatic hyperplasia with lower urinary tract symptoms (principal); R33.8 Other retention of urine | CPT/HCPCS: 99213 ==

== ENCOUNTER 2023-07-21 11:57 | Emergency (ER) | payer MEDICARE, MEDICAID, SELFPAY ==
[2023-07-21 12:06] VITALS: BP 160/90; PULSE 85; RESP 17; TEMP 36.4; O2SAT 95
--- NOTE | 2023-07-21 12:29 | W.ED.GENAD ---
HPI General Date/Time Provider Initiated Documentation: 07/21/23 11:59. HPI Narrative: 67-year-old male history of urinary retention due to BPH presents with suprapubic discomfort in the setting of having his Benedict catheter removed for voiding trial this morning. Has not been able to urinate. Denies fevers chills nausea vomiting Related Data Home Medications Medication Instructions Recorded Confirmed albuterol sulfate 90 mcg/actuation 2 puff inhalation QID PRN 08/23/19 07/21/23 aerosol inhaler (ProAir HFA) betamethasone dipropionate 0.05 % 1 applic topical PRN PRN 08/23/19 07/21/23 topical cream ketoconazole 2 % topical cream 1 applic topical PRN PRN 08/23/19 07/21/23 triamcinolone acetonide 0.1 % 1 applic topical PRN PRN 08/23/19 07/21/23 topical cream finasteride 5 mg tablet 5 mg PO DAILY 02/05/23 07/21/23 gabapentin 100 mg capsule 100 mg PO TID 02/05/23 07/21/23 losartan 25 mg tablet 12.5 mg PO DAILY 02/05/23 07/21/23 metoprolol succinate 25 mg 25 mg PO DAILY 02/05/23 07/21/23 tablet,extended release 24 hr Bengay Greaseless Cream 0 g topical PRN PRN ##0 02/14/23 07/21/23 benzonatate 100 mg capsule 100 mg PO TID #0 caps 02/14/23 07/21/23 docusate sodium 100 mg capsule 100 mg PO BID #0 caps 02/14/23 07/21/23 (Colace) gabapentin 100 mg capsule 100 mg PO TID #0 caps 02/14/23 07/21/23 omeprazole 20 mg capsule,delayed 40 mg (2 x 20 mg) PO BID@0730,199902/14/23 07/21/23 release #0 caps ondansetron 4 mg disintegrating 4 mg PO Q8H PRN PRN #0 tabs 02/14/23 07/21/23 tablet polyethylene glycol 3350 17 gram 17 g PO DAILY PRN PRN Constipation 02/14/23 07/21/23 oral powder packet #0 ea sucralfate 1 gram tablet 1 g PO BID #0 tabs 02/14/23 07/21/23 glipizide 10 mg tablet, extended 10 mg PO DAILY #0 tabs 02/15/23 07/21/23 release 24 hr tamsulosin 0.4 mg capsule (Flomax) 0.8 mg (2 x 0.4 mg) PO QHS #180 04/22/23 07/21/23 caps cefpodoxime 200 mg tablet 200 mg PO BID 7 days #14 tabs 07/21/23 Previous Rx's Medication Instructions Recorded Bengay Greaseless Cream 0 g topical PRN PRN ##0 02/14/23 benzonatate 100 mg capsule 100 mg PO TID #0 caps 02/14/23 docusate sodium 100 mg capsule 100 mg PO BID #0 caps 02/14/23 (Colace) gabapentin 100 mg capsule 100 mg PO TID #0 caps 02/14/23 omeprazole 20 mg capsule,delayed 40 mg (2 x 20 mg) PO BID@0730,2000 02/14/23 release #0 caps ondansetron 4 mg disintegrating 4 mg PO Q8H PRN PRN #0 tabs 02/14/23 tablet polyethylene glycol 3350 17 gram 17 g PO DAILY PRN PRN Constipation 02/14/23 oral powder packet #0 ea sucralfate 1 gram tablet 1 g PO BID #0 tabs 02/14/23 glipizide 10 mg tablet, extended 10 mg PO DAILY #0 tabs 02/15/23 release 24 hr tamsulosin 0.4 mg capsule (Flomax) 0.8 mg (2 x 0.4 mg) PO QHS #180 04/22/23 caps cefpodoxime 200 mg tablet 200 mg PO BID 7 days #14 tabs 07/21/23 Allergies Allergy/AdvReac Type Severity Reaction Status Date / Time No Known Allergies Allergy Unverified 07/21/23 12:12 General Stated Complaint: Urinary MINERVA: 4 Review of Systems Narrative: Review of Systems Constitutional: negative Eyes: negative ENT: negative Cardiovascular: negative Respiratory: negative Gastrointestinal: negative : Urinary retention Musculoskeletal: negative Skin: negative Neurologic: negative Psych: negative Exam Narrative Exam Narrative: Physical Examination General: alert, awake, cooperative, moderately uncomfortable HEENT: normocephalic, atraumatic; PERRL, EOM intact, conjunctiva normal; no nasal discharge; moist mucous membranes, oral and pharyngeal mucosa normal, tolerating secretions Neck: supple, trachea midline; full ROM Chest: normal to inspection Respiratory: normal respiratory effort, speaking in full sentences GI: abdomen soft, non-tender, suprapubic fullness without guarding or rebounding : Suprapubic fullness, normal external genitalia Skin: no lesions, rashes or trauma appreciated Neuro: AAOx3, normal speech, moving all extremities Psych: Appropriate mood and affect Course Vital Signs Vital signs: Vital Signs Temperature 36.4 C L 07/21/23 12:06 Pulse 85 07/21/23 12:06 Respiratory Rate 17 07/21/23 12:06 Blood Pressure 160/90 H 07/21/23 12:06 Pulse Oximetry 95 07/21/23 12:06 Temperature 36.4 C L 07/21/23 12:06 Temperature Source Temporal Artery Scan 07/21/23 12:06 Pulse 85 07/21/23 12:06 Respiratory Rate 17 07/21/23 12:06 Respiratory Effort Normal, Non-Labored 07/21/23 12:12 Blood Pressure 160/90 H 07/21/23 12:06 Blood Pressure Position Supine 07/21/23 12:06 Pulse Oximetry 95 07/21/23 12:06 Pain Level 6 07/21/23 12:06 Medical Decision Making 67-year-old male presents after failed void trial, Benedict catheter removed this morning has not been able to urinate, endorses suprapubic discomfort appears uncomfortable, does have suprapubic fullness on examination and large bladder on bedside ultrasound, Benedict catheter placed successfully with improvement of symptoms. Afebrile nontoxic no acute distress. Hypertension arrival likely related to discomfort. Patient has appointment at 3 PM with urology which I encouraged him to keep. Home care instructions and return precautions to be given. 13: 19 leuk esterase positive with large WBCs. Will start cefpodoxime. Quality:SDOH Health Related Social Needs: No Data to Display PFSH All Active Problems (Updated 07/21/23 @ 13:21 by Ben Bradshaw MD) Urinary retention (Acute) Urinary retention due to benign prostatic hyperplasia (Acute) Weakness (Acute) Heart failure with reduced ejection fraction (Chronic) Hypertension (Chronic) Schizophrenia (Chronic) Diabetes mellitus type 2 in obese (Acute) Medical History CHF (congestive heart failure) Anemia Acute exacerbation of congestive heart failure Panic attacks High cholesterol Eczema Depression CAP (community acquired pneumonia) Acute dyspnea Asthma exacerbation in COPD CHF exacerbation Surgical History Hx of hernia repair Social History Smoking/Tobacco Use Status: Never Smoking risk assessment performed?: Yes Alcohol Intake: never Drug use: Never Substance use type: does not use Housing: apartment What type of physical activity do you participate in: none Do you feel safe at home: Yes Do you feel safe in your relationship?: Yes Discharge Plan Disposition Patient Disposition: Home Condition: Improving Discharge Details Clinical Impression: Urinary retention Primary Care Provider: Reinier Arceo ED Provider: Ben Bradshaw Home Meds and New Rx's Prescriptions: New cefpodoxime 200 mg tablet 200 mg PO BID 7 Days Qty: 14 0RF Rx Instructions: must administer with a meal/food No Action gabapentin 100 mg capsule 100 mg PO TID Patient Comments: pt states not taking finasteride 5 mg tablet 5 mg PO DAILY metoprolol succinate 25 mg tablet extended release 24 hr 25 mg PO DAILY Patient Comments: pt states not taking Rx Instructions: *Patient unsure if taking losartan 25 mg tablet 12.5 mg PO DAILY Patient Comments: pt states not taking Rx Instructions: *Patient unsure if taking tamsulosin [Flomax] 0.4 mg capsule 0.8 mg PO QHS Qty: 180 3RF triamcinolone acetonide 0.1 % Cream 1 applic TOPICAL PRN PRN Patient Comments: pt states not taking betamethasone dipropionate 0.05 % Cream 1 applic TOPICAL PRN PRN albuterol sulfate [ProAir HFA] 90 mcg/actuation Hfa Aerosol Inhaler 2 puff INHALATION QID PRN ketoconazole 2 % Cream 1 applic TOPICAL PRN PRN polyethylene glycol 3350 17 gram Powder In Packet 17 g PO DAILY PRN PRN (Reason: Constipation) Qty: 0 0RF sucralfate 1 gram Tablet 1 g PO BID Qty: 0 0RF benzonatate 100 mg Capsule 100 mg PO TID Qty: 0 0RF docusate sodium [Colace] 100 mg Capsule 100 mg PO BID Qty: 0 0RF omeprazole 20 mg Capsule,Delayed Release(Dr/Ec) 40 mg PO BID@729,1999 Qty: 0 0RF gabapentin 100 mg Capsule 100 mg PO TID Qty: 0 0RF ondansetron 4 mg Tablet,Disintegrating 4 mg PO Q8H PRN PRNQty: 0 0RF Bengay Greaseless Cream 0 g topical PRN PRNQty: 0 0RF glipizide 10 mg Tablet Extended Release 24hr 10 mg PO DAILY Qty: 0 0RF Discharge Instructions Instructions: Urinary Retention in Men (ED) Additional Instructions: Please be seen at urology clinic at your scheduled appointment at 3 PM
[2023-07-21 12:49] LABS: Bilirubin Negative (Negative); Blood Trace-intact (Negative); Clarity Clear (Clear); Glucose Negative (Negative); Ketones Negative (Negative); Leukocyte Esterase Large (Negative); Nitrite Negative (Negative); Urobilinogen 0.2 mg/dL (Up to 0.2); pH 6.5 (5-8)
[2023-07-21 13:01] LABS: Bacteria Rare HPF (Negative); C & S Indicated? Yes; Casts Negative LPF (Negative); Crystals Negative HPF (Negative); Epithelial Cells Rare HPF (Negative); Mucus Negative (Negative); RBC 0-2 HPF (0-2); WBC 20-50 HPF (0-5)
[2023-07-21] MEDS: Cefpodoxime 200 MG TAB PO (13:15)
--- NOTE | 2023-07-21 17:35 | NUR.NOTE ---
Patient called asking why he was put on an antibiotic, stating that it was not explained to him. I told him that because of the results of his UA that they started him on antibiotics and that it was sent for urine culture. Nursing Note:
== END 2023-07-21 13:47 | disposition home or self-care (01) ==
PROVIDERS: Emergency Provider Emergency Medicine; PCP Physician Assistant
DX: R33.9 Retention of urine, unspecified (principal); I11.0 Hypertensive heart disease with heart failure; I50.9 Heart failure, unspecified; E78.00 Pure hypercholesterolemia, unspecified; J44.9 Chronic obstructive pulmonary disease, unspecified; E11.9 Type 2 diabetes mellitus without complications; Z79.84 Long term (current) use of oral hypoglycemic drugs
CPT/HCPCS: 51702; 87077; 99213; 99283; 81003; 81015; 87086; 87186

== ENCOUNTER → 2023-08-18 13:57 | Outpatient (BNVA) | payer MEDICARE, MEDICAID, SELFPAY | PROVIDERS: PCP Physician Assistant; Referring Provider Physician Assistant; Visit Provider Nurse Practitioner Gerontology | DX: Z46.6 Encounter for fitting and adjustment of urinary device (principal); N40.1 Benign prostatic hyperplasia with lower urinary tract symptoms; R33.8 Other retention of urine | CPT/HCPCS: 51702 ==

== ENCOUNTER → 2023-09-08 14:55 | Outpatient (BNVA) | payer MEDICARE, MEDICAID, SELFPAY | PROVIDERS: PCP Physician Assistant; Referring Provider Physician Assistant; Visit Provider Nurse Practitioner Gerontology | DX: Z46.6 Encounter for fitting and adjustment of urinary device (principal); N40.1 Benign prostatic hyperplasia with lower urinary tract symptoms; R33.8 Other retention of urine | CPT/HCPCS: 51702 ==

== ENCOUNTER 2023-09-21 22:07 | Outpatient (REF) | payer MEDICARE, MEDICAID, SELFPAY ==
[2023-09-21 15:09] LABS: Absolute Basophil Count 0.06 10^3/uL (0.0-0.2); Absolute Lymphocyte Count 0.94 10^3/uL (1.2-3.4); Absolute Monocyte Count 0.53 10^3/uL (0.1-0.8); Absolute Neutrophil Count 4.16 10^3/uL (1.2-6.7); HCT 34.9 % (40.0-50.0); HGB 11.6 g/dL (13.5-17.5); Lymphocytes % 15.7; MCH 30.2 pg (27.0-33.0); MCHC 33.2 % (32.0-36.0); MCV 91 fL (80-95); MPV 12.3 fL (8.0-11.0); Monocytes % 8.8; Neutrophils % 69.5; Platelet Count 192 10^3/uL (130-400); RBC 3.84 10^6/uL (4.36-5.78); RDW 13.5 % (11.8-14.1); RDW-SD 44.8 fL; WBC 5.99 10^3/uL (4.4-10.8)
[2023-09-21 15:31] LABS: ALT 15 U/L (16-63); AST 12 U/L (15-37); Albumin 3.3 g/dL (3.4-5.0); Alkaline Phosphatase 69 U/L (46-116); Anion Gap 8.6 mmol/L (3-11); BUN 28 mg/dL (7-18); CO2 24.4 mmol/L (21.0-32.0); CREATININE 2.1 mg/dL (0.70-1.30); Calcium 8.7 mg/dL (8.5-10.1); Chloride 103 mmol/L (98-107); Estimated GFR 33.66 (mL/min/1.73m2); Glucose 110 mg/dL (74-106); Potassium 4.6 mmol/L (3.5-5.1); Sodium 136 mmol/L (136-145); Total Protein 6.1 g/dL (6.4-8.2)
[2023-09-21 15:43] LABS: Hemoglobin A1C 5.6 % (<5.7)
== END 2023-09-21 22:08 | disposition home or self-care (01) ==
LOC: NCHCN 22:07
PROVIDERS: PCP Physician Assistant; Referring Provider Physician Assistant; Visit Provider Physician Assistant
DX: E11.9 Type 2 diabetes mellitus without complications (principal); R53.83 Other fatigue
CPT/HCPCS: 80053; 83036; 85025

== ENCOUNTER → 2023-10-05 07:56 | Outpatient (BNVA) | payer MEDICARE, MEDICAID, SELFPAY | PROVIDERS: PCP Physician Assistant; Referring Provider Physician Assistant; Visit Provider Nurse Practitioner Gerontology | DX: N40.1 Benign prostatic hyperplasia with lower urinary tract symptoms (principal); R33.9 Retention of urine, unspecified; R33.8 Other retention of urine | CPT/HCPCS: 51702; 99212 ==

== ENCOUNTER 2023-10-11 15:17 | Outpatient (REF) | payer MEDICARE, MEDICAID, SELFPAY | END 2023-10-11 15:18 | disposition home or self-care (01) | LOC: NCHCN 15:17 | PROVIDERS: PCP Physician Assistant; Visit Provider Physician Assistant | DX: I50.42 Chronic combined systolic (congestive) and diastolic (congestive) heart failure (principal) | CPT/HCPCS: 83880 ==

== ENCOUNTER → 2023-11-10 14:23 | Outpatient (BNVA) | payer MEDICARE, MEDICAID, SELFPAY | PROVIDERS: PCP Physician Assistant; Referring Provider Physician Assistant; Visit Provider Nurse Practitioner Gerontology | DX: Z46.6 Encounter for fitting and adjustment of urinary device (principal); N40.1 Benign prostatic hyperplasia with lower urinary tract symptoms; R33.8 Other retention of urine | CPT/HCPCS: 51702 ==

== ENCOUNTER 2023-11-11 16:26 | Outpatient (REF) | payer MEDICARE, MEDICAID, SELFPAY ==
[2023-11-11 20:32] LABS: HCT 30.5 % (40.0-50.0); HGB 10.1 g/dL (13.5-17.5); MCH 29.9 pg (27.0-33.0); MCHC 33.1 % (32.0-36.0); MCV 90 fL (80-95); MPV 12.8 fL (8.0-11.0); Platelet Count 227 10^3/uL (130-400); RBC 3.38 10^6/uL (4.36-5.78); RDW 13.3 % (11.8-14.1); WBC 7.12 10^3/uL (4.4-10.8)
[2023-11-11 20:49] LABS: ALT 16 U/L (16-63); AST 14 U/L (15-37); Alkaline Phosphatase 80 U/L (46-116); Anion Gap 12.4 mmol/L (3-11); BUN 44 mg/dL (7-18); Bilirubin, Total 1.2 mg/dL (0.2-1.0); CO2 18.6 mmol/L (21.0-32.0); CREATININE 2.5 mg/dL (0.70-1.30); Calcium 8.3 mg/dL (8.5-10.1); Chloride 103 mmol/L (98-107); Estimated GFR 27.13 (mL/min/1.73m2); Glucose 98 mg/dL (74-106); NT-proBNP 18297 pg/mL (<300); Potassium 5.2 mmol/L (3.5-5.1); Sodium 134 mmol/L (136-145); Total Protein 6.3 g/dL (6.4-8.2)
[2023-11-12 09:30] LABS: Reticulocyte 1.1 % (0.5-2.4)
[2023-11-12 09:40] LABS: Iron 22 ug/dL (65-175)
== END 2023-11-11 16:27 | disposition home or self-care (01) ==
LOC: NCHCN 16:26
PROVIDERS: PCP Physician Assistant; Visit Provider Physician Assistant
DX: I50.42 Chronic combined systolic (congestive) and diastolic (congestive) heart failure (principal); D64.9 Anemia, unspecified
CPT/HCPCS: 80053; 85027; 83540; 83880; 85045

== ENCOUNTER → 2023-12-01 13:38 | Outpatient (BNVA) | payer MEDICARE, MEDICAID, SELFPAY | PROVIDERS: PCP Physician Assistant; Referring Provider Physician Assistant; Visit Provider Nurse Practitioner Gerontology | DX: Z46.6 Encounter for fitting and adjustment of urinary device (principal); N40.1 Benign prostatic hyperplasia with lower urinary tract symptoms; R33.8 Other retention of urine | CPT/HCPCS: 51702 ==

== ENCOUNTER 2024-01-19 15:27 | Outpatient (REF) | payer MEDICARE, MEDICAID, SELFPAY ==
--- NOTE | 2024-01-19 14:00 | SKI_PTH ---
PATIENT: Miguel Sanchez LOC: [facility]#:[id number] AGE/SX: 68/M ROOM: RE01/19/[address]: Reinier Arceo : 1955 BED: DIS: 01/19/2024 SPEC #: [id number] RECD: 01/19/24 17:40 STATUS: PAMELA RELaina #: [id number] ALEXANDER: 01/19/24 14:[address]: Reinier Arceo DEPT: Surgical Specimen RECD BY: Yahaira Ramires Tissues: 1 - SKIN BIOPSY(SHAVE/PUNCH) Procedures: SKIN LEVEL 4 Comments: [id number]
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
--- OUTSIDE RECORDS SUMMARY | 2024-01-19 15:28 | XMS_ITS | Encounter Summary ---
Author Organization [facility] [place] [address] Care Team Providers Care Internal Controls Consultant Name Role Phone Reinier Arceo Primary Care Provider [phone] Encounter Details Date Type Department Care Team (Late st Contact Info) Description 11/23/2023 Telephone Nephrology [place] [address] Courtney Sainz Social History Tobacco Use Types Packs/Day Years Used Date Smoking Tobacco: Never Smokeless Tobacco: Never Alcohol Use Standard Drinks/Week Comments Never 0 (1 standard drink = 0.6 oz pur e alcohol) [facility] Inpatient Questions Answer Date Recorded Does Anyone [...] on file documented as of this encounter Miscellaneous Notes * Telephone Encounter - Courtney Sainz - 11/23/2023 11:54 AM EDT Patient canceled appointment on 12/08/23, offered to reschedule an appointment, pt declined. Pt doesn't want to bother making an appointment and also he has to get rides. Pt will follow with his PCP and call our office if he feels he needs an appointment. documented in this encounter Plan of Treatment Upcoming Encounters Date Type Department Care Team (Late st Contact Info) Description 02/03/2024 10:00 AM EDT Procedure [place] [address] Austin Simon MD [facility] [place] [address] Lindy Box APRN [facility] [place] [place] [address] documented as of this encounter Visit Diagnoses Not on filedocumented in this encounter Care Teams Internal Controls Consultant Relationship Specialty Start Date End Date Reinier Arceo PA [address] [place] [address] PCP - General Internal Medicine 01/18/23 documented as of this encounter
--- OUTSIDE RECORDS SUMMARY | 2024-01-19 15:28 | XMS_ITS | Clinical Summary ---
Author Organization [facility] Address [facility] [place] [address] Care Team Providers Care Account Analyst Name Role Phone Reinier Arceo Primary Care Provider [phone] Allergies No known active allergies Medications Medication Sig Dispensed Refills Start Date End Date Status triamcinolone (KENALOG) 0.1 % cream Apply topically 2 times daily. Active pimozide (ORAP) 2 mg Tablet Take 2 mg by mouth 2 times daily. Active ketoconazole (Nizoral) 2 % Cream Apply topically daily. Apply a small amount to affected area twice a day Active cholecalciferol, Vitamin D3, 50 mcg (2,000 unit) Capsule Take by mouth daily. Active docusate sodium (Colace) 100 mg capsule Take 1 capsule by mouth 2 times daily. 20 capsule 3 04/28/2023 Active Additional Information Patient not taking.Reported on 10/04/2023 finasteride (Proscar) 5 mg tablet Take 1 tablet by mouth daily. 90 tablet 3 07/13/2023 Active ivermectin (Stromectol) 3 mg tablet TAKE 5 AND 1/2 TABLETS BY MOUTH ONCE A SINGLE DOSE. REPEAT DOSE IN 2 WEEKS. 08/02/2023 Active OLANZapine (ZyPREXA) 15 mg tablet Take 15 mg by mouth nightly. 07/28/2023 Active ergocalciferoL, vitamin D2, (vitamin D2) 50,000 unit capsuleIndications :Vitamin D deficiency Take 1 capsule by mouth once a week. 12 capsule 3 08/04/2023 Active Additional Information Patient not taking.Reported on 10/04/2023 Active Problems Problem Noted Date Diagnosed Date CKD (chronic kidney disease), stage IV Elevated ferritin 08/16/2023 Secondary hyperparathyroidism of renal origin Metabolic acidosis 08/16/2023 Hyponatremia 08/16/2023 Blood albumin decreased compared with prior rickey urement 08/16/2023 Screening PSA (prostate specific antigen) 2023 Benign prostatic hyperplasia with urinary retent ion 07/07/2023 Vitamin D deficiency 06/24/2023 Acute dyspnea 02/23/2023 Acute on chronic congestive heart failure 2022 Anemia 02/23/2023 Asthma exacerbation in COPD 02/23/2023 CAP (community acquired pneumonia) 02/23/2023 Depression 02/23/2023 Discharge planning issues 02/23/2023 Heart failure with reduced ejection fraction High blood cholesterol 02/23/2023 Hx of hernia repair 02/23/2023 Hypertension 02/23/2023 Panic attacks 02/23/2023 Obstructive uropathy 01/26/2023 Schizophrenia 01/25/2023 Peripheral neuropathy 01/25/2023 Type 2 diabetes with nephropathy 01/25/2023 Acute kidney injury 01/22/2023 Acute on chronic systolic AC C/AHA stage C congestive heart failure 01/18/2023 Self-excoriation disorder 04/23/2015 Neurodermatitis 12/01/2013 Resolved Problems Problem Noted Date Diagnosed Date Resolved Date Stage 3b chronic kidney disease 06/24/2023 08/16/2023 Encounters Date Type Department Care Team Description 11/23/2023 Telephone Nephrology [place] [address] Courtney Sainz from Last 3 Months Social History Tobacco Use Types Packs/Day Years Used Date Smoking Tobacco: Never Smokeless Tobacco: Never Tobacco Cessation:Counseling Given: Not Answered Alcohol Use Standard Drinks/Week Comments Never 0 (1 standard drink = 0.6 oz pur e alcohol) [facility] Inpatient Questions Answer Date Recorded [...] on file Sexual Orientation Not on file Last Filed Vital Signs Vital Sign Reading Time Taken Comments Blood Pressure 114/71 10/04/2023 3:34 PM EDT Pulse 78 10/04/2023 3:34 PM EDT Temperature 37 ??C (98.6 ??F) 01/27/2023 12:17 PM EDT Respiratory Rate 19 01/27/2023 12:17 PM EDT Oxygen Saturation 100% 04/28/2023 1:49 PM EDT Inhaled Oxygen Concentration - - Weight 81.6 kg (180 lb) 08/04/2023 1:51 PM EST Height 165.1 cm (5' 5) 08/04/2023 1:51 PM EST Body Mass Index 29.95 08/04/2023 1:51 PM EST Plan of Treatment Upcoming Encounters Date Type Department Care Team (Late st Contact Info) Description 02/03/2024 10:00 AM EDT Procedure [place] [address] Austin Simon MD [facility] [place] [address] Lindy Bxo APRN [facility] [place] [address] Health Maintenance Due Date Last Done Comments CT Colonography 1954 Colonoscopy 1954 Colorectal Cancer Screening 1954 FIT DNA 1954 FIT 1954 Sigmoidoscopy (10 year) with FIT yearly 1954 Sigmoidoscopy 1954 Pneumoccocal Vaccine: 65+ (1 of 2 - PCV) 1960 DM Opthalmology Exam 1964 Tdap adult 1973 Tetanus vaccine 1973 Zoster vaccine (1 of 2) 2004 Covid-19 Vaccine (1 - 2022-2 4 season) 2023 DM Hemoglobin A1c 6 month 07/21/2023 01/18/2023 Influenza (Flu) vaccine (1 o f 1 - Influenza standard series) 02/27/2024 DM Creatinine yearly 08/04/2024 08/04/2023, 06/23/2023, 02/24/2023, Additional history exists Lipid Screening 01/19/2028 01/18/2023 Hepatitis C Screening Completed 01/20/2023 Diabetes Screening (HgbA1C o r Glucose) Discontinued 08/04/2023, 06/23/2023, 02/24/2023, Additional history exists Procedures Procedure Name Priority Date/Time Associated Diagnosis Comments BASIC METABOLIC PANEL (NON-FASTING) Routine 08/04/2023 12:55 PM EST Chronic kidney disease, unspecified CKD stage HEPATITIS C ANTIBODY Routine 01/20/2023 3:23 PM EDT HC CHOLESTEROL Routine 01/18/2023 10:16 PM EDT HC HEMOGLOBIN A1C Routine 01/18/2023 10: 16 PM EDT from Last 3 Months or Most Recently Relevant to Health Maintenance Results * (ABNORMAL) Basic Metabolic Panel (non-fasting) (08/04/2023 12:55 PM EST) Glucose Lvl 153 65 - 199 mg/dL [facility] Comment:Diabetes: >=200 mg/d L plus symptoms BUN 17 10 - 20 mg/dL [facility] Creatinine 2.02(H) 0.80 - 1.50 mg/dL [facility] Sodium 134(L) 135 - 145 mmol/L [facility] Potassium 4.8 3.5 - 5.0 mmol/L [facility] Comment: Please note: ??Patients with WBC >100,000 may have falsely elevated Potassium levels. ??For accurate Potassium quantification in these patients send serum separator tube (gold top) for subsequent determinations. ??Contact the Clinical Chemistry Laboratory if there are any questions. Chloride 98 98 - 107 mmol/L [facility] CO2 23 22 - 31 mmol/L [facility] Anion Gap 13 5 - 15 mmol/L [facility] Calcium 9.6 8.5 - 10.5 mg/dL [facility] Estimated GFR 35(L) >=60 mL/min/1. 73 m?? [facility] Comment: This patient's estimated GFR was calculated using the 2020 CKD-EPI equation. The estimated GFR can vary from the measured GFR by up to 30% in the absence of rapidly changing kidney function. Assessment of the estimated GFR is not appropriate when creatinine concentrations are rapidly changing. For clinical situations in which a more precise estimate of GFR is necessary, consider alternative methods of GFR estimation such as a 24-hour urine creatinine clearance. Assignment of CKD stage 1-5 for patients with an eGFR near the transition point between stages may be based on clinical assessment of muscle mass and symptoms in addition to eGFR. Blood 08/04/2023 12:5 5 PM EST 08/04/2023 1:44 PM EST Narrative Resulting Agency Comment Spec In Lab Abel Brantley MD CHEMISTRY ORDERABLES Performing Organization Address [facility]/ZIP Co de Phone Number [facility] [place] [address] * Hepatitis C Antibody (01/20/2023 3:23 PM EDT) Hepatitis C Ab Negative Negative [facility] Blood 01/20/2023 3:23 PM EDT 01/20/2023 3:28 PM EDT Narrative Resulting Agency Comment Spec In Lab Austin Sosa MD IMMUNOLOGY ORDERABLE S Performing Organization Address [facility] Co de Phone Number [facility] [place] [address] * HDL/Cholesterol Profile (01/18/2023 10:16 PM EDT) Chol, Total 122 mg/dL [facility] Comment: Lower Risk: <200 mg/dL Average Risk: 200-239 mg/dL Higher Risk: >yj=991 mg/dL HDL 27 mg/dL [facility] Comment: Males: ?? Higher Risk: <40 mg/dL Females: ?? Higher Risk: <50 mg/dL Chol/HDL Ratio 4.5 ratio [facility] Chol/HDL Interpretation See Note [facility] Comment: Lipid management should be guided by a patient? s ASCVD risk, goals and preferences. ACC/AHA Guidelines recommend high intensity statin if clinical ASCVD or LDL greater than or equal to 190 mg/dL. http://[employer].com/TEN-TZF-Knbenqrvl Measure LDL if Total Cholesterol minus HDL Cholesterol is greater than 220 mg/dL. Adults aged 40-75 with LDL 70-189 mg/dL should have their 10 year ASCVD risk estimated with the ACC/AHA ASCVD risk construction estimator http://tools.acc.org/NDBJA-Rcot-Vbhniytyk/ Statin should be discussed if risk greater than or equal to 7.5% in non-diabetics. With diabetes, moderate intensity statin is recommended if risk less than 7.5%, high intensity if risk greater than or equal to 7.5%. Annual lipid monitoring on statins is not necessary. Lifestyle modification is a critical component of ASCVD risk reduction. Blood 01/18/2023 10:1 6 PM EDT 01/18/2023 10:27 PM EDT Narrative Resulting Agency Comment Spec In Lab Tanya Vizcarra MD CHEMISTRY ORDERABL ES [facility] [place] [address] * (ABNORMAL) Hemoglobin A1c (01/18/2023 10:16 PM EDT) Hemoglobin A1C 5.7(H) 4.3 - 5.6 % [facility] Comment: Reference Range: 4.3 - 5.6% 5.7 - 6.4% - Increased Risk of Developing Diabetes Mellitus >= 6.5% - Consistent with diagnosis of Diabetes Mellitus In the absence of hyperglycemia (i.e. plasma glucose > 200 mg/dL) or classic symptoms of hyperglycemia a repeat measurement of HbA1c should be performed on a separate sample to confirm the diagnosis. Diagnosis and Classification of Diabetes Mellitus, Diabetes Care 2013; 36: Suppl. 1, L60-41 Est Avg Gluc 117 mg/dL [facility] Comment: eAG equivalents for HbA1c percentages: HbA1c(%) ?eAG(mg/dL) 6.0 ?126 6.5 ?140 7.0 ?154 7.5 ?169 8.0 ?183 8.5 ?197 9.0 ?212 9.5 ?226 10.0 ? 240 Limitations: The eAG calculation has not been validated on women, individuals below 18 years old and above 70 years old, and individuals with hemoglobinopathies. Additional resources are available on the ADA website. Jonathan MELGOZA, Polly J, Lenora R, et al. ??Translating the A1C assay into estimated average glucose values. ??Diabetes Care 2008:31(8):1493-5743. Blood 01/18/2023 10:1 6 PM EDT 01/18/2023 10:27 PM EDT Narrative Resulting Agency Comment Spec In Lab Tanya Vizcarra MD CHEMISTRY ORDERABL ES [facility] [place] [address] from Last 3 Months or Most Recently Relevant to Health Maintenance Advance Directives Documents on File Type Date Recorded Patient [employer] Consultant Expl anation Advance Directives and Livin g Will 01/19/2023 4:14 PM 01/19/2023 * Attempt Cardiopulmonary Resuscitation - Inpatient (Latest Code Status on File) Date Activated Date Inactivated Comments 01/18/2023 7:29 PM 01/27/2023 6:27 PM Question Answer Comments Code Status decision made by: Patient Care Teams Account Analyst Relationship Specialty Start Date End Date Reinier Arceo PA [address] [place] [address] PCP - General Internal Medicine 01/18/23
--- OUTSIDE RECORDS SUMMARY | 2024-01-19 15:29 | XMS_ITS | Encounter Summary ---
Author Organization [facility] [place] [address] Care Team Providers Care Mds Coordinator Name Role Phone Reinier Arceo Primary Care Provider [phone] Encounter Details Date Type Department Care Team (Latest Contact Info) Description 06/23/2023 Travel Social History Tobacco Use Types Packs/Day Years Used Date Smoking Tobacco: Never Smokeless Tobacco: Never Alcohol Use Standard Drinks/Week Comments Never 0 (1 standard drink = 0.6 oz pur e alcohol) IPV Inpatient Questions Answer Date Recorded Does [...] 10:00 AM EDT Procedure visit Urology at [facility] [place] [address] Austin Simon MD [facility] [place] [address] Lindy Box APRN [facility] [place] [address] documented as of this encounter Visit Diagnoses Not on filedocumented in this encounter Care Teams Mds Coordinator Relationship Specialty Start Date End Date Reinier Arceo PA [address] [place] [address] PCP - General Internal Medicine 01/18/23 documented as of this encounter
--- OUTSIDE RECORDS SUMMARY | 2024-01-19 15:29 | XMS_ITS | Encounter Summary ---
Author Organization [facility] Address [facility] [place] [address] Care Team Providers Care Senior Sales Administrator Name Role Phone Reinier Arceo Primary Care Provider [phone] Encounter Details Date Type Department Care Team (Latest Contact Info) Description 08/04/2023 2:30 PM EST Office Visit Neph[place] [address] Reina Yang MD [facility] [place] [address] Chronic kidney disease, unspecified CKD stage; Vitamin D deficiency; Anemia, unspecified type; Elevated ferritin; Secondary hyperparathyroidism of renal origin; Metabolic acidosis; Hyponatremia; Blood albumin decreased compared with prior measurement Social History Tobacco Use Types Packs/Day Years Used Date Smoking Tobacco: Never Smokeless Tobacco: Never Alcohol Use Standard Drinks/Week Comments Never 0 (1 standard drink = 0.6 oz pur e alcohol) [facility] In[facility] Questions Answer Date Recorded Does Anyone [...] on file documented as of this encounter Last Filed Vital Signs Vital Sign Reading Time Taken Comments Blood Pressure 123/82 08/04/2023 1:51 PM EST Pulse 80 08/04/2023 1:51 PM EST Temperature - - Respiratory Rate - - Oxygen Saturation - - Inhaled Oxygen Concentration - - Weight 81.6 kg (180 lb) 08/04/2023 1:51 PM EST Height 165.1 cm (5' 5) 08/04/2023 1:51 PM EST Body Mass Index 29.95 08/04/2023 1:51 PM EST documented in this encounter Patient Instructions * Patient Instructions* Reina Yang MD - 08/04/2023 2:30 PM EST Miguel, It was so nice to see you in clinic today. I'm sorry Deonte wasn't here to see you, but I'll catch him up when he's back next week. Here is the change we made today: 2) Vitamin D - As of the last check (in May), your vitamin D level was quite low. It may be even lower now since you haven't been taking any vitamin D. We talked about doing a high-dose vitamin D once a week. This is called ergocalciferol, and the dose is 50,000 units (yes!). Just pick whichever day of the week you prefer to take it. I suggest trying to always take it on the same day of the week, but the time doesn't matter. I sent the prescription to [facility] documented in this encounter Progress Notes * Reina Yang MD - 08/04/2023 2:30 PM EST [facility] PRIMARY CARE PROVIDER: ELSIE Espinoza [employer] REPAIRER: Deonte Lugo MD HISTORY OF PRESENT ILLNESS: Miguel Sanchez is a 67 y.o. man with recent history of CLEM (?on CKD IV) secondary to obstructive uropathy. He is seen in follow-up for CLEM. I am seeing the patient today for Dr. Lugo, who is unexpectedly away. Patient recently diagnosed with scabies, has had 1 of 2 treatments. Doing well. Feels fine. Still not able to discontinue indwelling Benedict catheter. Waiting for appointment for CT to check size of prostate. The only thing dragging me down is having to have this catheter in place. Appetite is good, but is eating less in an effort to lose weight; has been losing weight intentionally. Seems to be plateauing around 180, would like to get down to 160. Energy level is okay, I guess. Hard to exercise with catheter in place. No fevers, chills, or nightsweats. No lightheadedness/dizziness. No chest pain or shortness of breath. No abdominal pain, nausea, vomiting, diarrhea, or constipation. No leg swelling. Rash (scabies). Does not use NSAIDs at all now (not good for the kidneys). Baseline kidney function prior to obstruction unknown. Doesn't check home BP. PAST MEDICAL HISTORY: History reviewed. No pertinent past medical history. CKD PAST SURGICAL HISTORY: Past Surgical History: Procedure Laterality Date TONSILLECTOMY UMBILICAL HERNIA REPAIR MEDICATIONS: Current Outpatient Medications Medication Sig Dispense Refill ivermectin (Stromectol) 3 mg tablet TAKE 5 AND 1/2 TABLETS BY MOUTH ONCE A SINGLE DOSE. REPEAT DOSE IN 2 WEEKS. OLANZapine (ZyPREXA) 15 mg tablet Take 15 mg by mouth nightly. finasteride (Proscar) 5 mg tablet Take 1 tablet by mouth daily. 90 tablet 3 ketoconazole (Nizoral) 2 % Cream Apply topically daily. Apply a small amount to affected area twicea day triamcinolone (KENALOG) 0.1 % cream Apply topically 2 times daily. ergocalciferoL, vitamin D2, (vitamin D2) 50,000 unit capsule Take 1 capsule by mouth once a week. 12 capsule 3 cholecalciferol, Vitamin D3, 50 mcg (2,000 unit) Capsule Take by mouth daily. docusate sodium (Colace) 100 mg capsule Take 1 capsule by mouth 2 times daily. (Patient not taking:Reported on 06/23/2023) 20 capsule 3 pimozide (ORAP) 2 mg Tablet Take 2 mg by mouth 2 times daily. No current facility-administered medications for this visit. ALLERGIES/ADVERSE REACTIONS: No Known Allergies FAMILY HISTORY: History reviewed. No pertinent family history. SOCIAL HISTORY: Social History Social History Narrative Not on file REVIEW OF SYSTEMS: Ten systems reviewed and negative except as noted in the HPI and PMHx. PHYSICAL EXAMINATION: Vitals: 08/04/23 1351 BP: 123/82 Pulse: 80 Weight: 81.6 kg (180 lb) Height: 165.1 cm (5' 5) Body mass index is 29.95 kg/m??. General - Fairly well-appearing man. Appears his stated age, perhaps somewhat younger. Appropriately groomed in casual attire. Pleasant and cooperative. Seated comfortably in a wheelchair. HEENT - NCAT. No icterus or conjunctival injection. Neck - Supple. No lymphadenopathy. Respiratory - Lungs are clear to auscultation bilaterally. Cardiovascular - S1 and S2 are present. Regular rate and rhythm. No murmurs, rubs, or gallops. Abdomen - Benign. Extremities - No edema. Skin/Integument - Rash is present. Psychiatric - Appropriate mood and affect. Neurological - No focal deficits. LABORATORY STUDIES: Urine sediment - N/A Urinalysis - N/A Recent Results (from the past 1344 hour(s)) Uric acid Collection Time: 06/23/23 2:43 PM Result Value Ref Range Uric Acid 7.7 3.5 - 8.5 mg/dL Phosphorus Collection Time: 06/23/23 2:43 PM Result Value Ref Range Phosphorus 3.4 2.5 - 4.5 mg/dL Albumin Level Collection Time: 06/23/23 2:43 PM Result Value Ref Range Albumin 3.8 3.2 - 5.2 g/dL Free Light Chains, Serum Collection Time: 06/23/23 2:43 PM Result Value Ref Range Alpha Free Light Chain 7.48 (H) 0.72 - 2.75 mg/dL Lambda Free Light Chain 4.87 (H) 0.57 - 2.15 mg/dL Alpha Lambda FLC Ratio 1.5359 0.4000 - 2.5800 Iron and TIBC Collection Time: 06/23/23 2:43 PM Result Value Ref Range Iron 53 45 - 160 mcg/dL TIBC 170 (L) 250 - 450 mcg/dL Iron Saturation 31 20 - 50 % Cystatin C Collection Time: 06/23/23 2:43 PM Result Value Ref Range Cystatin C 2.81 (H) 0.67 - 1.21 mg/L Cystatin C eGFR 19 (L) >60 mL/min/BSA Vitamin D, 25-Hydroxy Collection Time: 06/23/23 2:43 PM Result Value Ref Range 25-OH Vit D Total 13 (L) 21 - 100 ng/mL 25-OH Vit D Interp Deficient Ferritin Collection Time: 06/23/23 2:43 PM Result Value Ref Range Ferritin 596 (H) 31 - 409 ng/mL PTH Collection Time: 06/23/23 2:43 PM Result Value Ref Range PTH 110 (H) 15 - 65 pg/mL Basic Metabolic Panel (non-fasting) Collection Time: 06/23/23 2:43 PM Result Value Ref Range Glucose Lvl 110 65 - 199 mg/dL BUN 17 10 - 20 mg/dL Creatinine 2.10 (H) 0.80 - 1.50 mg/dL Sodium 134 (L) 135 - 145 mmol/L Potassium 4.7 3.5 - 5.0 mmol/L Chloride 101 98 - 107 mmol/L CO2 20 (L) 22 - 31 mmol/L Anion Gap 13 5 - 15 mmol/L Calcium 8.9 8.5 - 10.5 mg/dL Estimated GFR 34 (L) >=60 mL/min/1.73 m?? Hemogram Collection Time: 06/23/23 2:43 PM Result Value Ref Range WBC 7.2 4.0 - 9.5 x10(3)/mcL RBC 4.16 (L) 4.58 - 5.54 x10(6)/mcL Hemoglobin 12.1 (L) 13.7 - 16.5 g/dL Hematocrit 35.6 (L) 40.5 - 48.5 % MCV 85.6 82.9 - 93.1 fL MCH 29.1 27.5 - 32.1 pg MCHC 34.0 32.0 - 35.7 g/dL Platelets 205 145 - 357 x10(3)/mcL RDWSD 42.2 36.0 - 45.0 fL RDWCV 13.6 11.4 - 13.8 % MPV 12.1 7.6 - 12.9 fL nRBC % Auto 0.0 % nRBC Abs Auto 0.000 0.000 - 0.000 x10(3)/mcL Differential, Automated Collection Time: 06/23/23 2:43 PM Result Value Ref Range Neutrophils % 69.8 % Neutr Abs (ANC) 5.06 1.70 - 6.10 x10(3)/mcL Lymphocytes % 19.0 % Lymphocytes Abs 1.4 0.9 - 3.2 x10(3)/mcL Monocytes % 8.1 % Monocyte Abs 0.6 0.3 - 0.9 x10(3)/mcL Eosinophils % 1.8 % Eosinophils Abs 0.1 0.0 - 0.4 x10(3)/mcL Basophils % 1.0 % Basophils Abs 0.1 0.0 - 0.1 x10(3)/mcL Immature Gran % 0.30 % Angelica Gran Abs 0.02 0.00 - 0.04 x10(3)/mcL PSA Screen Collection Time: 07/07/23 12:21 PM Result Value Ref Range PSA Total 1.62 0.00 - 4.00 ng/mL Phosphorus Collection Time: 08/04/23 12:55 PM Result Value Ref Range Phosphorus 3.4 2.5 - 4.5 mg/dL Basic Metabolic Panel (non-fasting) Collection Time: 08/04/23 12:55 PM Result Value Ref Range Glucose Lvl 153 65 - 199 mg/dL BUN 17 10 - 20 mg/dL Creatinine 2.02 (H) 0.80 - 1.50 mg/dL Sodium 134 (L) 135 - 145 mmol/L Potassium 4.8 3.5 - 5.0 mmol/L Chloride 98 98 - 107 mmol/L CO2 23 22 - 31 mmol/L Anion Gap 13 5 - 15 mmol/L Calcium 9.6 8.5 - 10.5 mg/dL Estimated GFR 35 (L) >=60 mL/min/1.73 m?? Creatinine (mg/dL) Date Value 08/04/2023 2.02 (H) 06/23/2023 2.10 (H) 02/24/2023 4.18 (H) 01/27/2023 4.74 (H) 01/26/2023 4.91 (H) 01/25/2023 5.06 (H) 01/24/2023 5.46 (H) 01/23/2023 5.47 (H) 01/22/2023 5.86 (H) 01/21/2023 5.70 (H) 01/20/2023 5.79 (H) 01/19/2023 5.69 (H) 01/19/2023 5.63 (H) 01/19/2023 5.52 (H) 01/19/2023 5.50 (H) 01/18/2023 5.81 (H) 01/18/2023 5.71 (H) ASSESSMENT AND PLAN: 67 y.o. man with CLEM on presumed CKD IV in the setting of obstructive uropathy presenting for evaluation. 1) CKD IV - Kidney function is stable, although notably lower by cystatin C in May (eGFR 19 vs34). Will continue to monitor, and would consider routinely checking cystatin C along with creatinine for comparison given the prior disparity. Will touch base with Meche Donato APRN, about plan for CT and follow-up with Urology. 2) HTN - BP appears to be adequately controlled based on clinic measurement. Will continue current management. 3) Anemia - Mild, normocytic. Iron saturation is at goal; ferritin is elevated. Will continue to monitor. 4) Bone and mineral - Calcium and phosphorus are at goal. [id number] D is very low. Reportedly on ergocalciferol 50,000 units weekly and cholecalciferol 2000 units daily. May need to increase the ergocalciferol to twice weekly, but will defer to Dr. Lugo. PTH is above goal but will likely come into range with correction of the vitamin D. Uric acid was above goal in May, but absent ahistory of gout, does not require intervention at this time. 5) Acid-base - Encouraged him to start/resume baking 1 tsp daily for metabolic acidosis. 6) Electrolytes - Potassium is in range. Sodium is slightly low; stable compared with May. Canjust monitor, but if it remains low, would consider further evaluation. 7) Nutrition - Normal albumin in May suggests adequate protein intake. That being said, it is lower than it had been in December 2022, so will require ongoing monitoring. 8) Lipids - Lipids were at goal in December 2022. Could consider adding moderate- dose statin in the setting of CKD as a cardiovascular risk equivalent. Will defer to Dr. Lugo. 9) Health maintenance - Not addressed this visit. * Vaccinations: - Hep B - Influenza - Pneumovax - Zostavax - Tdap - COVID-19 10) Transplant/access referral - Not indicated. 11) Return to clinic - Will return in 2 months for follow-up with Dr. Lugo. Encouraged him tocall if has any questions or concerns in the interim. 40 minutes of this visit were spent in reviewing records, counseling patient on disease process andtreatment options as outlined in my assessment and plan, and coordinating care. Reina Yang MD [facility] Nephrology and Hypertension [facility], [address] [place], [place] [id number] E-mail: [email or web address] documented in this encounter Plan of Treatment Upcoming Encounters Date Type Department Care Team (Late st Contact Info) Description 02/03/2024 10:00 AM EDT Procedure [place] [address] Austin Simon MD [facility] [place] [address] Lindy Box APRN [facility] [place] [address] documented as of this encounter Results * Phosphorus (08/04/2023 12:55 PM EST) [facility] Phosphorus 3.4 2.5 - 4.5 mg/dL [facility] Blood 08/04/2023 12:5 5 PM EST 08/04/2023 1:44 PM EST Narrative Resulting Agency Comment Spec In Lab Abel Brantley MD CHEMISTRY ORDERABLES [facility] [place] [address] * (ABNORMAL) Basic Metabolic Panel (non-fasting) (08/04/2023 12:55 PM EST) Pathologist [facility] Glucose Lvl 153 65 - 199 mg/dL [facility] Comment:Diabetes: >=200 mg/d L plus symptoms BUN 17 10 - 20 mg/dL [facility] Creatinine 2.02(H) 0.80 - 1.50 mg/dL [facility] Sodium 134(L) 135 - 145 mmol/L [facility] Potassium 4.8 3.5 - 5.0 mmol/L [facility] Comment: Please note: ??Patients with WBC >100,000 may have falsely elevated Potassium levels. ??For accurate Potassium quantification in these patients send serum separator tube (gold top) for subsequent determinations. ??Contact the Clinical Chemistry Laboratory if there are any questions. Chloride 98 98 - 107 mmol/L [facility] CO2 23 22 - 31 mmol/L [facility] Anion Gap 13 5 - 15 mmol/L [facility] Calcium 9.6 8.5 - 10.5 mg/dL [facility] Estimated GFR 35(L) >=60 mL/min/1. 73 m?? [facility] Comment: This patient's estimated GFR [...] In Lab Abel Brantley MD CHEMISTRY ORDERABLES [facility] [place] [address] documented in this encounter Visit Diagnoses Diagnosis Chronic kidney disease, unspecified CKD stage Vitamin D deficiency Unspecified vitamin D deficiency Anemia, unspecified type Elevated ferritin Other abnormal blood chemistry Secondary hyperparathyroidism of renal origin Secondary hyperparathyroidism (of renal origin) Metabolic acidosis Acidosis Hyponatremia Hyposmolality and/or hyponatremia Blood albumin decreased compared with prior measurement documented in this encounter Care Teams Senior Sales Administrator Relationship Specialty Start Date End Date Reinier Arceo PA [address] [place] [address] PCP - General Internal Medicine 01/18/23 documented as of this encounter
--- OUTSIDE RECORDS SUMMARY | 2024-01-19 15:29 | XMS_ITS | Encounter Summary ---
Author Organization [facility] Address [facility] [place] [address] Care Team Providers Care Steel Pickler Name Role Phone Reinier Arceo Primary Care Provider [phone] Encounter Details Date Type Department Care Team (Latest Contact Info) Description 02/24/2023 Travel Social History Tobacco Use Types Packs/Day Years Used Date Smoking Tobacco: Never Alcohol Use Standard Drinks/Week Comments [...] 10:00 AM EDT [place] [address] Austin Simon MD [facility] [place] [address] Lindy Box [address]N [facility] [place] [address] documented as of this encounter Visit Diagnoses Not on filedocumented in this encounter Care Teams Steel Pickler Relationship Specialty Start Date End Date Reinier Arceo PA [address] [place] [address] PCP - General Internal Medicine 01/18/23 documented as of this encounter
--- OUTSIDE RECORDS SUMMARY | 2024-01-19 15:29 | XMS_ITS | Encounter Summary ---
Author Organization [facility] Address [facility] [place] [address] Care Team Providers Care Family Practice Physician Assistant Name Role Phone Reinier Arceo Primary Care Provider [phone] Encounter Details Date Type Department Care Team (Latest Contact Info) Description 06/23/2023 4:00 PM EST Office Visit Nephrology [place] [address] Deonte Lugo MD [facility] [place] [address] Stage 3b chronic kidney disease (Primary Dx); Stage 3 chronic kidney disease, unspecified whether stage 3a or 3b CKD; Vitamin D deficiency; Hypertension, unspecified type Social History Tobacco Use Types Packs/Day Years Used Date Smoking Tobacco: Never Smokeless Tobacco: Never Tobacco Cessation:Counseling Given: Not Answered Alcohol Use Standard Drinks/Week Comments Never 0 (1 standard drink = 0.6 oz pur e alcohol) [facility] Inpatient Questions Answer Date Recorded Does Anyone [...] Sign Reading Time Taken Comments Blood Pressure 142/92 06/23/2023 3:24 PM EST Pulse 83 06/23/2023 3:24 PM EST Temperature - - Respiratory Rate - - Oxygen Saturation - - Inhaled Oxygen Concentration - - Weight 83.5 kg (184 lb) 06/23/2023 3:24 PM EST Height 165.1 cm (5' 5) 06/23/2023 3:24 PM EST Body Mass Index 30.62 06/23/2023 3:24 PM EST documented in this encounter Progress Notes * Deonte Lugo MD - 06/23/2023 4:00 PM EST Images from the original note were not included. Nephrology-Hypertension Clinic Follow-up Note Miguel Sanchez [id number] ID: 67 y.o.year-old male for follow up of CLEM, obstructive nephropathy. See problems below for integrated history, assessment, & plan. Medications: Outpatient Encounter Medications as of 06/23/2023 Medication Sig Dispense Refill cholecalciferol, Vitamin D3, 50 mcg (2,000 unit) Capsule Take by mouth. atorvastatin (Lipitor) 80 mg tablet Take 1 tablet by mouth daily. (Patient not taking: Reported on 06/23/2023) 90 tablet 3 docusate sodium (Colace) 100 mg capsule Take 1 capsule by mouth 2 times daily. (Patient not taking:Reported on 06/23/2023) 20 capsule 3 OLANZapine (ZyPREXA) 10 mg tablet Take 10 mg by mouth nightly. ketoconazole (Nizoral) 2 % Cream Apply topically daily. Apply a small amount to affected area twicea day albuteroL 90 mcg/actuation HFA Aerosol Inhaler Inhale 2 puffs into the lungs every 4 hours as needed for Wheezing. Use with spacer inhalational spacing device (Chris Aerosol [place] Enhancer) Spacer by [facility].(Non- Drug; Combo Route) route. nitroGLYcerin (Nitrostat) 0.[address] 0.4 mg under the tongue every 5 minutes asneeded for Chest pain. magnesium hydroxide (Milk of Magnesia) Suspension Take by mouth daily as needed for Constipation. metoprolol succinate XL (Toprol-XL) 25 mg ER 24 hr tablet Take 1 tablet by mouth daily. (Patient not taking: Reported on 06/23/2023) 30 tablet 12 finasteride (Proscar) 5 mg tablet Take 1 tablet by mouth daily. (Patient not taking: Reported on 06/23/2023) 90 tablet 3 tamsulosin (Flomax) 0.4 mg capsule Take 2 capsules by mouth daily. (Patient not taking: Reported on06/23/2023) 90 tablet 3 pimozide (ORAP) 2 mg Tablet Take 2 mg by mouth 2 times daily. triamcinolone (KENALOG) 0.1 % cream Apply topically 2 times daily. gabapentin (NEURONTIN) 100 mg capsule Take 100 mg by mouth 3 times daily. No facility-administered encounter medications on file as of 06/23/2023. Allergies/ADRs: No Known Allergies Review of systems: Full ROS performed. Negative for edema, orthopnea, weight change, chest pain, and SOB. Physical Examination: Vitals Flowsheet Row Office Visit from 06/23/2023 in Nephrology Hypertension at [facility] Weight 83.5 kg (184 lb) Height 165.1 cm (5' 5) BSA (Calculated - sq m) 1.96 sq meters BMI (Calculated) 30.62 Heart Rate 83 BP 142/92 BP Readings from Last 3 Encounters: 06/23/23 (!) 142/92 04/28/23 132/76 02/24/23 109/70 Body mass index is 30.62 kg/m??. General: Not in distress, seated comfortably today. HEENT: EOM intact, sclera clear, mucous membranes moist. CV: S1 & S2 faint but audible I do not appreciate any murmurs. Resp: Breathing is comfortable on room air, lungs are clear bilaterally Ext: No edema in the lower extremities. Skin: No rashes or lesions on the exposed skin. Neuro: Alert & oriented, no focal deficits. Psych: Pleasant and calm, conversational attention is intact. Relevant Labs & Imaging: Lab Results Component Value Date CREATININE 2.10 (H) 06/23/2023 CREATININE 4.18 (H) 02/24/2023 CREATININE 4.74 (H) 01/27/2023 CREATININE 4.91 (H) 01/26/2023 CREATININE 5.06 (H) 01/25/2023 ESTGFR 34 (L) 06/23/2023 ESTGFR 15 (L) 02/24/2023 ESTGFR 13 (L) 01/27/2023 ESTGFR 12 (L) 01/26/2023 ESTGFR 12 (L) 01/25/2023 CYSTATINC 2.81 (H) 06/23/2023 CYSTATINC 19 (L) 06/23/2023 NA 134 (L) 06/23/2023 NA 137 02/24/2023 NA 137 01/27/2023 K 4.7 06/23/2023 K 4.5 02/24/2023 K 4.8 01/27/2023 CO2 20 (L) 06/23/2023 CO2 20 (L) 02/24/2023 CO2 15 (L) 01/27/2023 EGFR by Cr & Cystatin C, CKD-EPI equation = 25 Lab Results Component Value Date CALCIUM 8.9 06/23/2023 CALCIUM 9.4 02/24/2023 CALCIUM 9.4 01/27/2023 PHOS 3.4 06/23/2023 PHOS 3.3 02/24/2023 PHOS 5.0 (H) 01/27/2023 PTH 110 (H) 06/23/2023 PTH 144 (H) 02/24/2023 PTH 401 (H) 01/20/2023 25OHVITD 13 (L) 06/23/2023 25OHVITD 16 (L) 02/24/2023 25OHVITD 9 (L) 01/20/2023 TSH 2.03 01/18/2023 URICACID 7.7 06/23/2023 Lab Results Component Value Date HGB 12.1 (L) 06/23/2023 HGB 12.1 (L) 02/24/2023 HGB 10.6 (L) 01/27/2023 FERRITIN 596 (H) 06/23/2023 FERRITIN 478 (H) 01/20/2023 IRONSAT 31 06/23/2023 IRONSAT 30 01/20/2023 Lab Results Component Value Date UMICALBCALC 196 (H) 02/24/2023 UPROTCREAT 0.4 02/24/2023 UPROTCREAT 4.9 01/18/2023 ALBUMIN 3.8 06/23/2023 ALBUMIN 4.2 01/18/2023 History & Summary: Miguel is being seen again today for obstructive nephropathy. Since his last appointment he discharged from the rehab facility and was able to return home. Estimates that he was probably in rehab for 4-6 weeks or so. The alfaro catheter remains in place and he's scheduled to see urology here in earlyJanuary for more definitive management. About two weeks ago he stopped all medication including olanzapine, tamsulosin, and finasteride. He says that he is feeling very well and is no longer nauseated or dry heaving. He tells me that he's been hospitalized with the schizophrenia in the past but never in a [facility] (I don't have access to these records). Assessment & Plan: # CKD IV # Obstructive Nephropathy No Proteinuria. Renal function has shown good recovery since Jan 2023 admission. I suspect his baseline renal function is CKD IV. Renal US demonstrates pelvicaliectasis bilaterally on 01/25, persistent from prior study. ACEi/ARB: Losartan 12.5 mg BID* SGLT2: Empagliflozin 25 mg Daily* ESRD/Access planning: Not yet initiated # Hemodynamics # CHF # Hypotension Volume Status: Appears euvolemic today Diuretic regimen: Furosemide 40 mg po daily* Also on metoprolol succinate 25 mg daily* # Heme Anemia CKD Hgb mildly low, iron studies acceptable. # Acid/Base # Metabolic Acidosis Persistently low. Would add NaHCO3 bicarbonate supplementation if able in the coming months. # Bone & Mineral # Vitamin D Deficiency # Secondary Hyperparathyroidism Not currently on vitamin D supplement *Not currently taking any medications or supplements* Assessment & Plan: Miguel Sanchez is a 67 y.o. male seen today for obstructive nephropathy and CKD. Alfaro catheter remainsin place and he is scheduled to see urology on 07/07 for more definitive intervention. His labs haveimproved since his last visit, Cr now around 2, which I think more accurately portrays his baselinerenal function given time since hospitalization and the amt of time the alfaro has been in place. His BP is elevated today and his labs show more severe vitamin D Deficiency which I would like to address. His metabolic acidosis persists as well. That being said, I am reluctant to make any changes orrecommendations until he sees his PCP on 06/30. I explained to Miguel that I am worried about him stopping all medication, including the olanzapine, which I suspect is an integral part of his overall stability and ability to live alone and care for himself. I also explained that it's very hard to say which medication/med combo was responsible for his nausea and dry heaving and I would be inclined torestart the medications in order of priority and as they are tolerated (ie starting the his antipsychotics and then working in BP meds/vitamin D supplement). He seemed understanding of these recommendations and was able to engage in conversation/ask questions today. Following the visit I spoke with his PCP ELSIE Espinoza over the phone, and provided the update that he has stopped all medication. He shared that Miguel has a hx of selectively stopping certainmedications. Just prior to his last appointment Miguel had stopped the beta kelli and the ARB. He will work with Miguel at next appointment to restart some of the medication. Follow-up visit recommended in 1 month. Orders Placed This Encounter Procedures Basic Metabolic Panel (non-fasting) CBC (with Diff) PTH Ferritin Vitamin D, 25-Hydroxy Cystatin C Iron and TIBC Free Light Chains, Serum Albumin Level Phosphorus Uric acid This case was staffed with Dr. Yang. Deonte Lugo MD Nephrology & Hypertension Fellow * Reina Yang MD - 06/23/2023 4:00 PM EST I have seen the patient and reviewed the fellow's history, and I agree with the details as written.The assessment and plan were formulated in discussion with me, and I agree with them as documented. Reina Yang MD Nephrology Pager: [phone] documented in this encounter Plan of Treatment Upcoming Encounters Date Type Department Care Team (Late st Contact Info) Description 02/03/2024 10:00 AM EDT Procedure [place] [address] Austin Simon MD [facility] [place] [address] Lindy Box APRN [facility] [place] [address] [place] [address] documented as of this encounter Results * Uric acid (06/23/2023 2:43 PM EST) Pathologist [facility] Uric Acid 7.7 3.5 - 8.5 mg/dL [facility] Blood 06/23/2023 2:43 PM EST 06/23/2023 2:49 PM EST Narrative Resulting Agency Comment Spec In Lab Abel Brantley MD CHEMISTRY ORDERABLES Performing Organization Address [facility] Phone Number [facility] [place] [address] * Phosphorus (06/23/2023 2:43 PM EST) [facility] Phosphorus 3.4 2.5 - 4.5 mg/dL [facility] Blood 06/23/2023 2:43 PM EST 06/23/2023 2:49 PM EST Narrative Resulting Agency Comment Spec In Lab Abel Brantley MD CHEMISTRY ORDERABLES Performing Organization Address [facility] de Phone Number [facility] [place] [address] * Albumin Level (06/23/2023 2:43 PM EST) [facility] Albumin 3.8 3.2 - 5.2 g/dL [facility] Blood 06/23/2023 2:43 PM EST 06/23/2023 2:49 PM EST Narrative Resulting Agency Comment Spec In Lab Abel Brantley MD CHEMISTRY ORDERABLES Performing Organization Address [facility] Phone Number [facility] [place] [address] * (ABNORMAL) Free Light Chains, Serum (06/23/2023 2:43 PM EST) [facility] [place] Free Light Chain 7.48(H) 0.72 - 2.75 mg/dL [facility] Lambda Free Light Chain 4.87(H) 0.57 - 2.15 mg/dL [facility] [place] Lambda FLC Ratio 1.5359 0.4000 - 2.5800 [facility] Blood 06/23/2023 2:43 PM EST 06/23/2023 2:49 PM EST Narrative Resulting Agency Comment Spec In Lab Abel Brantley MD CHEMISTRY ORDERABLES Performing Organization Address City/[facility]/ZIP Co de Phone Number [facility] [place] [address] * (ABNORMAL) Iron and TIBC (06/23/2023 2:43 PM EST) Iron 53 45 - 160 mcg/dL [facility] TIBC 170(L) 250 - 450 mcg/dL [facility] Iron Saturation 31 20 - 50 % [facility] Blood 06/23/2023 2:43 PM EST 06/23/2023 2:49 PM EST Narrative Resulting Agency Comment Spec In Lab Abel Brantley MD CHEMISTRY ORDERABLES Performing Organization Address City/[facility] Co de Phone Number [facility] [place] [address] * (ABNORMAL) Cystatin C (06/23/2023 2:43 PM EST) Cystatin C 2.81(H) 0.67 - 1.21 mg/L [facility] Comment: Test Performed by: [place] [address] Padder Cushion: Jimmy Zavala M.D. Ph.D.; CLIA# [id number] Cystatin C eGFR 19(L) >60 mL/min/BS A [facility] Comment: Estimated GFR calculated using the CKD-EPI Cystatin C (2012) equation. ADDITIONAL INFORMATION Cystatin C-based eGFR may differ substantially from creatinine- based eGFR in patients with abnormal muscle mass or acutely changing renal function. ??Please interpret together with relevant clinical features. On 11/21/2020 the cystatin C assay method changed. Cystatin C eGFR results > 50 ml/min/1.73m2 are approximately 10% lower with the new assay. Test Performed by: [facility] - [address] [address] Padder Cushion: Jimmy Zavala M.D. Ph.D.; CLIA# [id number] Blood 06/23/2023 2:43 PM EST 06/23/2023 4:05 PM EST Narrative Resulting Agency Comment Spec In Lab Abel Brantley MD CHEMISTRY ORDERABLES Performing Organization Address [facility] Co de Phone Number [facility] [place] [address] * (ABNORMAL) Vitamin D, 25-Hydroxy (06/23/2023 2:43 PM EST) 25-OH Vit D Total 13(L) 21 - 100 ng/mL [facility] 25-OH Vit D Interp Deficient [facility] Blood 06/23/2023 2:43 PM EST 06/23/2023 2:49 PM EST Narrative Resulting Agency Comment Spec In Lab Abel Brantley MD CHEMISTRY ORDERABLES Performing Organization Address [facility] Co de Phone Number [facility] [place] [address] * (ABNORMAL) Ferritin (06/23/2023 2:43 PM EST) Ferritin 596(H) 31 - 409 ng/mL [facility] Comment: Please note that as of 06/02/2023, the reference intervals for Ferritin have been updated. Blood 06/23/2023 2:43 PM EST 06/23/2023 2:49 PM EST Narrative Resulting Agency Comment Spec In Lab Abel Brantley MD CHEMISTRY ORDERABLES Performing Organization Address City/[facility]/ZIP Co de Phone Number [facility] [place] [address] * (ABNORMAL) PTH (06/23/2023 2:43 PM EST) PTH 110(H) 15 - 65 pg/mL [facility] Blood 06/23/2023 2:43 PM EST 06/23/2023 2:49 PM EST Narrative Resulting Agency Comment Spec In Lab Abel Brantley MD CHEMISTRY ORDERABLES Performing Organization Address City/State/[facility] Co de Phone Number [facility] [place] [address] * (ABNORMAL) Basic Metabolic Panel (non-fasting) (06/23/2023 2:43 PM EST) Glucose Lvl 110 65 - 199 mg/dL [facility] Comment:Diabetes: >=200 mg/d L plus symptoms BUN 17 10 - 20 mg/dL [facility] Creatinine 2.10(H) 0.80 - 1.50 mg/dL [facility] Sodium 134(L) 135 - 145 mmol/L [facility] Potassium 4.7 3.5 - 5.0 mmol/L [facility] Comment: Please note: ??Patients with WBC >100,000 may have falsely elevated Potassium levels. ??For accurate Potassium quantification in these patients send serum separator tube (gold top) for subsequent determinations. ??Contact the Clinical Chemistry Laboratory if there are any questions. Chloride 101 98 - 107 mmol/L [facility] CO2 20(L) 22 - 31 mmol/L [facility] Anion Gap 13 5 - 15 mmol/L [facility] Calcium 8.9 8.5 - 10.5 mg/dL [facility] Estimated GFR 34(L) >=60 mL/min/1. 73 m?? [facility] [...] and symptoms in addition to eGFR. Blood 06/23/2023 2:43 PM EST 06/23/2023 2:49 PM EST Narrative Resulting Agency Comment Spec In Lab Abel Brantley MD CHEMISTRY ORDERABLES [facility] [place] [address] documented in this encounter Visit Diagnoses Diagnosis Stage 3b chronic kidney disease- Primary Stage 3 chronic kidney disease, unspecified whether stage 3a or 3b CKD Vitamin D deficiency Unspecified vitamin D deficiency Hypertension, unspecified type documented in this encounter Care Teams Family Practice Physician Assistant Relationship Specialty Start Date End Date Reinier Arceo PA [address] [place] [address] PCP - General Internal Medicine 01/18/23 documented as of this encounter
--- OUTSIDE RECORDS SUMMARY | 2024-01-19 15:29 | XMS_ITS | Encounter Summary ---
Author Organization [facility] Address [facility] [place] [address] Care Team Providers Care Appointment Clerk Name Role Phone Reinier Arceo Primary Care Provider [phone] Encounter Details Date Type Department Care Team (Late Contact Info) Description 07/13/2023 [place] [id number] Meche Donato APRN Social History Tobacco Use Types Packs/Day Years Used Date Smoking Tobacco: Never Smokeless Tobacco: Never Alcohol Use Standard Drinks/Week Comments Never 0 (1 standard drink = 0.6 oz pur e alcohol) [facility] Inpatient Questions Answer Date Recorded [...] Encounters Date Type Department Care Team (Late Contact Info) Description 02/03/2024 10:00 AM EDT [place] [id number] Austin Simon MD [facility] [place] [place] [address] Lindy Box APRN [facility] [place] [address] documented as of this encounter Visit Diagnoses Not on filedocumented in this encounter Care Teams Appointment Clerk Relationship Specialty Start Date End Date Reinier Arceo PA [address] [place] [address] PCP - General Internal Medicine 01/18/23 documented as of this encounter
--- OUTSIDE RECORDS SUMMARY | 2024-01-19 15:29 | XMS_ITS | Encounter Summary ---
Author Organization [facility] [place] [address] Care Team Providers Care Screen Operator Name Role Phone Reinier Arceo Primary Care Provider [phone] Reason for Visit * Reason Onset Date Comments Medication Refill 07/12/2023 Encounter Details Date Type Department Care Team (Late st Contact Info) Description 07/12/2023 Telephone Urology at [facility] [place] [place] [address] Martin Elizabeth, filler wiper Refill Social History Tobacco Use Types Packs/Day Years Used Date Smoking Tobacco: Never Smokeless Tobacco: Never Alcohol Use Standard Drinks/Week Comments Never 0 (1 standard drink = 0.6 oz pur e alcohol) [facility] Inpatient Questions Answer Date Recorded [...] encounter Miscellaneous Notes * Telephone Encounter - Martin Elizabeth, RN - 07/12/2023 9:36 AM EST Refill request: Finasteride (5mg tablet) Provider: Meche Donato APRN Date of last office visit: 07/07/2023 Plan: PSA screening today. - WNL He is not comfortable with TRUS for prostate sizing. Will do CT pelvic wo contrast to btain prostate sizing, and assess for possible left scrotal hernia. Scrotal US for evaluation of possible left inguinal hernia. Pharmacological Management: He would like to remain off of tamsulosin & finasteride given no return of voiding. We discussed finasteride can take 6-12 months to relieve obstruction, given he was on for ~6 monthsand has not had recent void trial, he is agreeable to resume finasteride until repeat void trial. If able to sufficiently void would be comfortable remaining on med and deferring prostate surgery. Renewal sent for finasteride. He would like to do repeat void trial at [facility] at time of next alfaro exchange. We reviewed surgical options using informational handout and descriptive diagram so patient is ableto make an informed decision and engage in a shared decision. He remains interested in PVP- will proceed with prostate sizing and arrange FUV with Dr. Simon. Follow up with Dr. Simon with CT prior. Next follow up scheduled: No future appointment scheduled. documented in this encounter Plan of Treatment Upcoming Encounters Date Type Department Care Team (Late st Contact Info) Description 02/03/2024 10:00 AM EDT Procedure [place] [address] Austin Simon MD [facility] [place] [place] [address] Lindy Box APRN [facility] [place] [address] documented as of this encounter Visit Diagnoses Not on filedocumented in this encounter Care Teams Screen Operator Relationship Specialty Start Date End Date Reinier Arceo PA [address] [place] [address] PCP - General Internal Medicine 01/18/23 documented as of this encounter
--- OUTSIDE RECORDS SUMMARY | 2024-01-19 15:29 | XMS_ITS | Encounter Summary ---
Author Organization [facility] [place] [address] Care Team Providers Care Real Estate Listing Consultant Name Role Phone Reinier Arceo Primary Care Provider [phone] Encounter Details Date Type Department Care Team (Late st Contact Info) Description 09/17/2023 Telephone Urology at [facility] [place] [phone] Meche Donato APRN Social History Tobacco Use [...] encounter Miscellaneous Notes * Telephone Encounter - Meche Donato APRN - 09/17/2023 9:31 AM EDT Reason for call: Called patient to review recent CT results 09/14/23: CT Pelvis wo contrast - estimated prostate size on imaging 52cc IMPRESSION 1. Large bilateral fat-containing inguinal hernias, left greater than right. 2. Prostatomegaly. 3. Trace free intraperitoneal fluid, of uncertain etiology and significance. Assessment/Plan: Continue with visiti with Dr. Simon on 10/04/23 to discuss PVP. Reviewed fat containing hernia's bilaterally. Given not bothersome he will monitor for now. Patientrequested information on inguinal hernia, which was sent in a letter to him. Patient expresses understanding and agreement to the above plan. All questions were answered to their apparent satisfaction. Meche Donato APRN documented in this encounter Plan of Treatment Upcoming Encounters Date Type Department Care Team (Late st Contact Info) Description 02/03/2024 10:00 AM EDT Procedure [place] [address] Austin Simon MD [facility] [place] [address] Lindy Box APRN [facility] [place] [address] documented as of this encounter Visit Diagnoses Not on filedocumented in this encounter Care Teams Real Estate Listing Consultant Relationship Specialty Start Date End Date Reinier Arceo PA [address] [place] [address] PCP - General Internal Medicine 01/18/23 documented as of this encounter
--- OUTSIDE RECORDS SUMMARY | 2024-01-19 15:29 | XMS_ITS | Encounter Summary ---
[place] [address] Care Team Providers Care Workforce Planning Analyst Name Role Phone Reinier Arceo Primary Care Provider [phone] Reason for Referral * Diagnostic Test (Routine) - Closed Specialty Diagnoses / Procedures [facility]erred To Contact Radiology Diagnoses Benign prostatic hyperplasia with urinary retention Scrotal swelling Procedures CT Pelvis Soft Tissue (GI SHEET TURNER) wo Contrast Meche Donato APRN [facility] [place] [address] Referral ID Status Reason Start Date Expiration Date V isits Requested Visits Authorized [id number] Closed Specialty Service Requested 07/07/2023 01/04/2025 1 1 Reason for Visit * Diagnostic Test (Routine) - Closed Specialty Diagnoses / Procedures Referred By [facility] Referred To Contact Radiology Diagnoses Benign prostatic hyperplasia with urinary retention Scrotal swelling Procedures CT Pelvis Soft Tissue (GI SHEET TURNER) wo Contrast Meche Donato APRN [facility] [place] [address] Referral ID Status Reason Start Date Expiration Date V isits Requested Visits Authorized [id number] Closed Specialty Service Requested 07/07/2023 01/04/2025 1 1 Encounter Details Date Type Department Care Team (Latest Contact Info) Description 09/14/2023 10:43 AM EDT - 09/14/2023 11:59 PM EDT Hospital [place] [address] Meche Donato APRN Benign prostatic hyperplasia with urinary retention; Scrotal swelling Discharge Disposition: Home Social History Tobacco Use Types Packs/Day Years Used Date Smoking Tobacco: Never Smokeless Tobacco: Never Alcohol Use Standard Drinks/Week Comments Never 0 (1 standard drink = 0.6 oz pur e alcohol) [facility] Inpatient Questions Answer Date Recorded Does Anyone [...] on file documented as of this encounter Medications at Time of Discharge Medication Sig Dispensed Refills Start Date End Date finasteride (Proscar) 5 mg tablet Take 1 tablet by mouth daily. 90 tablet 3 07/13/2023 ivermectin (Stromectol) 3 mg tablet TAKE 5 AND 1/2 TABLETS BY MOUTH ONCE A SINGLE DOSE. REPEAT DOSE IN 2 WEEKS. 08/02/2023 OLANZapine (ZyPREXA) 15 mg tablet Take 15 mg by mouth nightly. 07/28/2023 ergocalciferoL, vitamin D2, (vitamin D2) 50,000 unit capsuleIndications:Laura min D deficiency Take 1 capsule by mouth once a week. 12 capsule 3 08/04/2023 cholecalciferol, Vitamin D3, 50 mcg (2,000 unit) Capsule Take by mouth daily. docusate sodium (Colace) 100 mg capsule Take 1 capsule by mouth 2 times daily. 20 capsule 3 04/28/2023 ketoconazole (Nizoral) 2 % Cream Apply topically daily. Apply a small amount to affected area twice a day pimozide (ORAP) 2 mg Tablet Take 2 mg by mouth 2 times daily. triamcinolone (KENALOG) 0.1 % cream Apply topically 2 times daily. documented as of this encounter Plan of Treatment Upcoming Encounters Date Type Department Care Team (Late st Contact Info) Description 02/03/2024 10:00 AM EDT [place] [address] Austin Simon MD [facility] [place] [address] Lindy Box APRN [facility] [place] [address] documented as of this encounter Procedures Procedure Name Priority Date/Time Associated Diagnosis Comments CT PELVIS SOFT TISSUE (GI SHEET TURNER) WO CONTRAST Routine 09/14/2023 1:38 PM EDT Benign prostatic hyperplasia with urinary retention Scrotal swelling documented in this encounter Results * CT Pelvis Soft Tissue (GI SHEET TURNER) wo Contrast (09/14/2023 1:38 PM EDT) Anatomical Region Laterality Modality Pelvis Computed Tomogra phy Impressions 09/14/2023 4:39 PM EDT 1. ??Large bilateral fat-containing inguinal hernias, left greater than right. 2. ??Prostatomegaly. 3. ??Trace free intraperitoneal fluid, of uncertain etiology and significance. Thank you for letting us participate in the care of this patient. ??If you are a health care provider and have any questions regarding this report, please contact the number below. ??For patients who have questions please contact the health career guidance technician that requested your imaging first. ? Narrative 09/14/2023 4:39 PM EDT EXAMINATION: CT PELVIS SOFT TISSUE (GI SHEET TURNER) WO CONTRAST CLINICAL HISTORY: prostate sizing and evaluation of scrotal mass, ?possible left inguinal hernia N40.1, Benign prostatic hyperplasia with lower urinary tract symptoms - R33.8, Other retention of urine - N50.89, Other specified disorders of the male genital organs TECHNIQUE: Helical CT of the pelvis without intravenous contrast. Oral contrast was administered. Multiplanar reformatted images were generated. COMPARISON: None FINDINGS: The absence of intravenous contrast limits the evaluation of solid viscera and vasculature. Urinary Bladder: Decompressed with a Benedict catheter. Most notable multiple foci of intraluminal air are present. Vasculature: No aneurysm. Lymph Nodes: No enlarged lymph nodes. Bowel: Nondilated, no wall thickening. ?? Peritoneum and retroperitoneum: Trace free fluid in the right lower quadrant abutting loops of distal ileum. Trace free fluid in the pelvis. No free air. No loculated collection or mesenteric inflammation. Abdominal wall: There are large bilateral inguinal hernias containing fat. The left inguinal hernia sac measures 10 cm transverse by 4.5 cm in AP dimension. No inflammatory changes. Reproductive organs: Prostate is mildly enlarged, measuring 5.2 x 4.6 x 4.4 cm. Osseous structures: Moderate L4/5 degenerative disc disease. No suspicious lytic or sclerotic osseous lesion. Procedure Note Halie Shell MD - 09/14/2023 EXAMINATION: CT PELVIS SOFT TISSUE (GI SHEET TURNER) WO CONTRAST CLINICAL HISTORY: prostate sizing and evaluation of scrotal mass,?possible left inguinal hernia N40.1, Benign prostatic hyperplasia with lower urinary tract symptoms -R33.8, Other retention of urine - N50.89, Other specified disorders of the malegenital organs TECHNIQUE: Helical CT of the pelvis without intravenous contrast. Oralcontrast was administered. Multiplanar reformatted images were generated. COMPARISON: None FINDINGS: The absence of intravenous contrast limits the evaluation of solid visceraand vasculature. Urinary Bladder: Decompressed with a Benedict catheter. Most notable multiplefoci of intraluminal air are present. Vasculature: No aneurysm. Lymph Nodes: No enlarged lymph nodes. Bowel: Nondilated, no wall thickening. Peritoneum and retroperitoneum: Trace free fluid in the right lowerquadrant abutting loops of distal ileum. Trace free fluid in the pelvis. No freeair. No loculated collection or mesenteric inflammation. Abdominal wall: There are large bilateral inguinal hernias containing fat.The left inguinal hernia sac measures 10 cm transverse by 4.5 cm in APdimension. No inflammatory changes. Reproductive organs: Prostate is mildly enlarged, measuring 5.2 x 4.6 x4.4 cm. Osseous structures: Moderate L4/5 degenerative disc disease. No suspiciouslytic or sclerotic osseous lesion. IMPRESSION 1. Large bilateral fat-containing inguinal hernias, left greater thanright. 2. Prostatomegaly. 3. Trace free intraperitoneal fluid, of uncertain etiology andsignificance. Thank you for letting us participate in the care of this patient. If youare a health care provider and have any questions regarding this report,please contact the number below. For patients who have questions please contactthe health career guidance technician that requested your imaging first. Meche Donato APRN IMG CT ORDERABLES documented in this encounter Visit Diagnoses Diagnosis Benign prostatic hyperplasia with urinary retention Scrotal swelling Edema of male genital organs documented in this encounter Care Teams Workforce Planning Analyst Relationship Specialty Start Date End Date Reinier Arceo PA [address] [place] [address] PCP - General Internal Medicine 01/18/23 documented as of this encounter
--- OUTSIDE RECORDS SUMMARY | 2024-01-19 15:29 | XMS_ITS | Encounter Summary ---
Author Organization [facility] [place] [address] Care Team Providers Care Interactive Marketing Strategist Name Role Phone Reinier Arceo Primary Care Provider [phone] Encounter Details Date Type Department Care Team (Latest Contact Info) Description 08/04/2023 1:05 PM EST Laboratory Appointment [place] [address] [place] [address] Chronic kidney disease, unspecified CKD stage Social History Tobacco Use Types Packs/Day Years Used Date Smoking Tobacco: Never Smokeless Tobacco: Never Alcohol Use Standard Drinks/Week Comments Never 0 (1 standard drink = 0.6 oz pur e alcohol) [facility] Inpatient Questions Answer Date Recorded Does Anyone [...] 10:00 AM EDT [place] [address] Austin Simon MD [facility] [place] [address] Lindy Box APRN [facility] [place] [address] documented as of this encounter Procedures Procedure Name Priority Date/Time Associated Diagnosis Comments HC PHOSPHORUS, SERUM Routine 08/04/2023 12:55 PM EST Chronic kidney disease, unspecified CKD stage BASIC METABOLIC PANEL (NON-FASTING) Routine 08/04/2023 12:55 PM EST Chronic kidney disease, unspecified CKD stage documented in this encounter Results * (ABNORMAL) Basic Metabolic Panel (non-fasting) (08/04/2023 12:55 PM EST) Glucose Lvl 153 65 - 199 mg/dL [facility] Comment:Diabetes: >=200 mg/d L plus symptoms BUN 17 10 - 20 mg/dL [facility] Creatinine 2.02(H) 0.80 - 1.50 mg/dL [facility] Sodium 134(L) 135 - 145 mmol/L [facility] Potassium 4.8 3.5 - 5.0 mmol/L [facility] Comment: Please note: ??Patients with WBC >100,000 may have falsely elevated Potassium levels. ??For accurate Potassium quantification in these patients send serum separator tube (gold top) for subsequent determinations. ??Contact the Clinical Chemistry Laboratory if there are any questions. Chloride 98 98 - 107 mmol/L [facility] CO2 23 22 - 31 mmol/L [facility] Anion Gap 13 5 - 15 mmol/L [facility] Calcium 9.6 8.5 - 10.5 mg/dL [facility] Estimated GFR 35(L) >=60 mL/min/1. 73 m?? [facility] Comment: This patient's estimated GFR [...] Brantley MD CHEMISTRY ORDERABLES Performing Organization Address City/[facility] Co de Phone Number [facility] [address] * Phosphorus (08/04/2023 12:55 PM EST) Phosphorus 3.4 2.5 - 4.5 mg/dL [facility] Blood 08/04/2023 12:5 5 PM EST 08/04/2023 1:44 PM EST Narrative Resulting Agency Comment Spec In Lab Abel Brantley MD CHEMISTRY ORDERABLES Performing Organization Address City/[facility] Co de Phone Number [facility] [place] [address] documented in this encounter Visit Diagnoses Diagnosis Chronic kidney disease, unspecified CKD stage documented in this encounter Care Teams Interactive Marketing Strategist Relationship Specialty Start Date End Date Reinier Arceo PA [address] [place] [address] PCP - General Internal Medicine 01/18/23 documented as of this encounter
--- OUTSIDE RECORDS SUMMARY | 2024-01-19 15:29 | XMS_ITS | Encounter Summary ---
Author Organization [facility] [place] [address] Care Team Providers Care Development Officer Name Role Phone Reinier Arceo Primary Care Provider [phone] Encounter Details Date Type Department Care Team (Late st Contact Info) Description 10/04/2023 4:20 PM EDT Office Visit Urology at [facility] [place] [address] Austin Simon MD [facility] [place] [address] Urinary retention Social History Tobacco Use Types Packs/Day Years Used Date Smoking Tobacco: Never Smokeless Tobacco: Never Alcohol Use Standard Drinks/Week Comments Never 0 (1 standard drink = 0.6 oz pur e alcohol) [facility] Inpatient Questions Answer Date Recorded Does [...] Pulse 78 10/04/2023 3:34 PM EDT Temperature - - Respiratory Rate - - Oxygen Saturation - - Inhaled Oxygen Concentration - - Weight - - Height - - Body Mass Index - - documented in this encounter Progress Notes * Austin Simon MD - 10/04/2023 4:20 PM EDT [facility] SECTION OF UROLOGY UROLOGY CLINIC VISIT Name: Miguel Sanchez : 1955 Date: 10/04/2023 Referred by: No ref. provider found Chief Complaint: BPH with urinary retention History of Present Illness (carried forward for reference): Miguel Sanchez is a 67 y.o. male with T2DM (A1c 5.7, but was 8 or 9 in the past) with neuropathy, CHF, CKD4, schizophrenia who is referred for management of urinary symptoms Per Meche Donato note: Found in retention after presenting to [facility] (12/2022) for SOB and CHF exacerbation. He was found to have an elevated creatinine 6.1 and mild bilateral hydronephrosis, initially thought to be related to obstructive uropathy. Urology was consulted while inpatient and started him on tamsulosin &finasteride, recommending repeat void trial and renal US in 5-7 days. He was unable to void after catheter removed and refused to have alfaro replaced, in which he returned to ER several hours later as still unable to void, alfaro replaced at this time. He then went to rehab and SNF for ~4-6 weeks where void trial was done and ultimately results in being replaced. Follow up renal US shows some persistent mild hydronephrosis but creatinine is back to 2.1 at most recent nephrology visit, which is likely baseline. He has been undergoing monthly catheter exchanges at [facility] Urology Of note, he has a void trial scheduled tomorrow at [facility]. Denies hematuria. He is currently taking finasteride. IPSS NA (alfaro) Prostate size on CT was measured as 50cc. Patient has never required prostate biopsy. Last PSA 1.62 (06/2023) No reported bowel issues. Patient is currently not on any anticoagulation. 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 Acute on chronic systolic ACC/AHA stage C congestive heart failure I50.23 Acute kidney injury N17.9 Schizophrenia F20.9 Peripheral neuropathy G62.9 Type 2 diabetes with nephropathy E11.21 Obstructive uropathy N13.9 Acute dyspnea R06.00 Acute on chronic congestive heart failure I50.9 Anemia D64.9 Asthma exacerbation in COPD J44.1, J45.901 CAP (community acquired pneumonia) J18.9 Depression F32.A Discharge planning issues Z75.8 Heart failure with reduced ejection fraction I50.20 High blood cholesterol E78.00 Hx of hernia repair Z98.890, Z87.19 Hypertension I10 Panic attacks F41.0 Vitamin D deficiency E55.9 Screening PSA (prostate specific antigen) Z12.5 Benign prostatic hyperplasia with urinary retention N40.1, R33.8 CKD (chronic kidney disease), stage IV N18.4 Elevated ferritin R79.89 Secondary hyperparathyroidism of renal origin N25.81 Metabolic acidosis E87.20 Hyponatremia E87.1 Blood albumin decreased compared with prior measurement R79.89 Past Surgical History: Procedure Laterality Date TONSILLECTOMY UMBILICAL HERNIA REPAIR Physical Examination: BP 114/71 Pulse 78 Constitutional: NAD. Cardiovascular: Good peripheral pulses Respiratory: Breathing comfortably. No audible wheezes are appreciated. Abdomen: soft, non-tender, non-distended. : Alfaro draining clear yellow urine Extremities: Appear warm and well perfused. Neuro: Awake and alert. Oriented to person/place/time. No gross motor defects. Review of Tests: Lab Results Component Value Date WBC 7.2 06/23/2023 RBC 4.16 (L) 06/23/2023 HGB 12.1 (L) 06/23/2023 HCT 35.6 (L) 06/23/2023 MCV 85.6 06/23/2023 MCH 29.1 06/23/2023 MCHC 34.0 06/23/2023 Lab Results Component Value Date NA 134 (L) 08/04/2023 K 4.8 08/04/2023 CL 98 08/04/2023 CO2 23 08/04/2023 BUN 17 08/04/2023 No results found for: PSA Radiology personally reviewed today: CT pelvis - 1. Large bilateral fat-containing inguinal hernias, left greater than right. 2. Prostatomegaly. (50cc) 3. Trace free intraperitoneal fluid, of uncertain etiology and significance. ASSESSMENT Miguel Sanchez is a 67 y.o. male with moderate BPH with urinary retention. Given his retention was discovered incidentally and his hx of DM2, an atonic bladder is possible. Since he has significant comorbidities, I have recommended we proceed with UDS first to see if his bladder works before proceeding with a bladder outlet procedure. PLAN - Schedule UDS The patient expressed understanding and agreement with the above. Austin Simon MD Section of Urology [facility] Office: [phone] documented in this encounter Plan of Treatment Upcoming Encounters Date Type Department Care Team (Late st Contact Info) Description 02/03/2024 10:00 AM EDT Procedure [place] [address] Austin Simon MD [facility] [place] [address] Lindy Box APRN [facility] [place] [address] documented as of this encounter Visit Diagnoses Diagnosis Urinary retention Retention of urine, unspecified documented in this encounter Care Teams Development Officer Relationship Specialty Start Date End Date Reinier Arceo PA [address] [place] [address] PCP - General Internal Medicine 01/18/23 documented as of this encounter
--- OUTSIDE RECORDS SUMMARY | 2024-01-19 15:29 | XMS_ITS | Encounter Summary ---
Author Organization [facility] [place] [address] Care Team Providers Care Fitter Hand Name Role Phone Reinier Arceo Primary Care Provider [phone] Encounter Details Date Type Department Care Team (Late Contact Info) Description 07/02/2023 Telephone [place]phrology [place] [address] Ava Villegas Social History Tobacco Use Types Packs/Day Years Used Date Smoking Tobacco: Never Smokeless Tobacco: Never Alcohol Use Standard Drinks/Week Comments Never 0 (1 standard drink = 0.6 oz pur e alcohol) [facility] Questions Answer Date Recorded Does [...] 10:00 AM EDT Procedure [place] [address] Austin Simon MD [facility] [place] [address] Lindy Box [address]N [facility] [place] [address] documented as of this encounter Visit Diagnoses Not on filedocumented in this encounter Care Teams Fitter Hand Relationship Specialty Start Date End Date Reinier Arceo PA [address] [place] [address] PCP - General Internal Medicine 01/18/23 documented as of this encounter
--- OUTSIDE RECORDS SUMMARY | 2024-01-19 15:29 | XMS_ITS | Encounter Summary ---
Author Organization [facility] [place] [address] Care Team Providers Care Renal Social Worker Name Role Phone Reinier Arceo Primary Care Provider [phone] Encounter Details Date Type Department Care Team (Latest Contact Info) Description 10/04/2023 Travel Social History Tobacco Use Types Packs/Day [...] 10:00 AM EDT Procedure visit Urology at [facility] [address] Austin Simon MD [facility] [place] [address] Lindy Box APRN [facility] [place] [address] documented as of this encounter Visit Diagnoses Not on filedocumented in this encounter Care Teams Renal Social Worker Relationship Specialty Start Date End Date Reinier Arceo PA [address] [place] [address] PCP - General Internal Medicine 01/18/23 documented as of this encounter
--- OUTSIDE RECORDS SUMMARY | 2024-01-19 15:29 | XMS_ITS | Encounter Summary ---
Author Organization [facility] [place] [id number] Care Team Providers Care Internet Sales Associate Name Role Phone Reinier Arceo Primary Care Provider [phone] Reason for Referral * Consultation (Routine) - Authorized Specialty Diagnoses / Procedures Referred By Contact Referred To Contact Electrophysiology / Cardiology Diagnoses HFrEF (heart failure with reduced ejection fraction) AICD consideration for HFrEF 29%, Etiology unknown. Please see note Freedom Sunshine MD [facility] [address] [facility] Cardiology [address] [place] [id number] Referral ID Status Reason Start Date Expiration Date Visits Requested Visits Authorized [id number] Authorized Consult, Test & Treat 04/28/2023 04/27/2024 1 1 Encounter Details Date Type Department Care Team (Late st Contact Info) Description 04/28/2023 2:00 PM EDT Office Visit Cardiology at [address] [phone] Marvin Ba MD [facility] [place] [address] Freedom Sunshine MD [facility] [address] HFrEF (heart failure with reduced ejection fraction) Social History Tobacco Use Types Packs/Day Years [...] Sign Reading Time Taken Comments Blood Pressure 132/76 04/28/2023 1:49 PM EDT Pulse 73 04/28/2023 1:49 PM EDT Temperature - - Respiratory Rate - - Oxygen Saturation 100% 04/28/2023 1:49 PM EDT Inhaled Oxygen Concentration - - Weight 90.3 kg (199 lb) 04/28/2023 1:49 PM EDT Height 165.1 cm (5' 5) 04/28/2023 1:49 PM EDT Body Mass Index 33.12 04/28/2023 1:49 PM EDT documented in this encounter Progress Notes * Freedom Sunshine MD - 04/28/2023 2:00 PM EDT Images from the original note were not included. Formerly [facility] [place] [address] CARDIOLOGY OUTPATIENT CLINIC VISIT [facility] Miguel Sanchez 04/28/2023 Referring Providers: ELSIE Espinoza Patrick, PA [address] [place] [id number] CHIEF COMPLAINT: CHF Dear ELSIE Nolan [address] [place] [address] HISTORY OF PRESENT ILLNESS: Miguel Sanchez is a 67 y.o. male patient presenting for an outpatient cardiology visit. 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 At the time, patient complained of 1month of dyspnea on exertion and weakness, hypoxia to low 90's, bilateral LE edema, PND and orthopnea. His proBNP was found to be greater than 10,000; Creatinine of 6.1 and a BUN of 63, last known baseline was in September 2022 with a creatinine of 1.5 and a BUN of 19. Patient was diuresed and referred to cardiology clinic. His most recent TTE in 12/2022 shows LVEF of 29% with global hypokinesis. Patient has not been able to get LHC due to CKD. In the interim, patient reports since his ER visit, he has been taken off Lasix due to kidney function but denies any leg edema, PND and orthopnea. His OROURKE has also resolved since ER visit. Patient self discontinued ARB and Jardiance due to his CKD but still takes ToproloL XL. He follows up with nephrology and urology. Patient notes that his kidney function takes priority over everything else. He is not interested in any GDMT that may worsen kidney function and he does not want any ischemic evaluation at this time that involves use of contrast. Review of systems: Please see the HPI for pertinent positives and negatives. The remainder of the ROS was reviewed and is negative. Cardiac studies: EKG: NSR with inferior and anterior q waves TTE: 12/2022 Left ventricle is mildly dilated with mildly increased wall thickness. LVEF is 29% by Callahan's biplane. There is no left ventricular thrombus. LV filling pressure is increased. Right ventricle is of normal size and systolic function. There is mild to moderate mitral regurgitation. There is a small pericardial effusion, adjacent to the right atrium. Compared to prior echo report (08/25/2019), left ventricular systolic function has further decreased. LHC: None - Deferred due to progressive CKD RHC 12/2022 Right Heart Pressures Resting: Syst Diast EDP a v m RA 13 11 8 RV 38 8 PA 28 27 25 PCW 16 17 18 Hemodynamic Profile: Profile 1 CO 4.60 CI 2.20 TPR 435 PVR 122 Technique Estimated Junior Left Heart Pressures Resting: Syst Diast EDP a v m Ao 166 98 Non-invasive Studies: PAST MEDICAL HISTORY: has no past medical history on file. PAST SURGICAL HISTORY: No past surgical history on file. SOCIAL HISTORY: reports that he has never smoked. He does not have any smokeless tobacco history onfile. He reports that he does not drink alcohol and does not use drugs. FAMILY HISTORY: family history is not on file. MEDICATIONS: Current Outpatient Medications Medication Sig Dispense Refill cholecalciferol, Vitamin D3, 50 mcg (2,000 unit) Capsule Take by mouth. OLANZapine (ZyPREXA) 10 mg tablet Take 10 mg by mouth nightly. ketoconazole (Nizoral) 2 % Cream Apply topically daily. Apply a small amount to affected area twicea day albuteroL 90 mcg/actuation HFA Aerosol Inhaler Inhale 2 puffs into the lungs every 4 hours as needed for Wheezing. Use with spacer nitroGLYcerin (Nitrostat) 0.[address] 0.4 mg under the tongue every 5 minutes asneeded for Chest pain. glipiZIDE (Glucotrol) 10 mg tablet Take 10 mg by mouth 2 times daily (before meals). metoprolol succinate XL (Toprol-XL) 25 mg ER 24 hr tablet Take 1 tablet by mouth daily. 30 tablet 12 finasteride (Proscar) 5 mg tablet Take 1 tablet by mouth daily. 90 tablet 3 tamsulosin (Flomax) 0.4 mg capsule Take 2 capsules by mouth daily. 90 tablet 3 triamcinolone (KENALOG) 0.1 % cream Apply topically 2 times daily. gabapentin (NEURONTIN) 100 mg capsule Take 100 mg by mouth 3 times daily. metFORMIN (Glucophage) 500 mg tablet Take 500 mg by mouth 2 times daily (with meals). semaglutide (Rybelsus) 3 mg tablet Take 3 mg by mouth daily. pioglitazone (Actos) 15 mg tablet Take 15 mg by mouth daily. furosemide (Lasix) 40 mg tablet Take 40 mg by mouth daily. inhalational spacing device (Chris Aerosol [place] Enhancer) Spacer by [facility].(Non- Drug; Combo Route) route. magnesium hydroxide (Milk of Magnesia) Suspension Take by mouth daily as needed for Constipation. polyethylene glycoL (Miralax) 17 gram oral powder packet Take 17 g by mouth daily. bisacodyL (Dulcolax) [address] 10 mg rectally daily. sucralfate (Carafate) 1 gram tablet Take 1 g by mouth 2 times daily. docusate sodium (Colace) 100 mg capsule Take 100 mg by mouth 2 times daily. benzonatate (Tessalon) 100 mg capsule Take 100 mg by mouth 3 times daily as needed for Cough. ondansetron (Zofran) 4 mg tablet Take 4 mg by mouth every 8 hours as needed for Nausea. diclofenac (Voltaren) 1 % Gel Apply topically. omeprazole (PriLOSEC) [address] capsule Take 40 mg by mouth 2 times daily. albuteroL 90 mcg/actuation HFA Aerosol Inhaler 4 times daily. betamethasone dipropionate (Diprolene) 0.05 % Cream daily. empagliflozin (Jardiance) 25 mg tablet Take 25 mg by mouth daily. atorvastatin (Lipitor) 80 mg tablet Take 80 mg by mouth daily. losartan (Cozaar) 25 mg tablet Take 0.5 tablets by mouth daily. (Patient not taking: Reported on 04/28/2023) 90 tablet 3 pimozide (ORAP) 2 mg Tablet Take 2 mg by mouth 2 times daily. No current facility-administered medications for this visit. ALLERGIES: Reviewed and updated as appropriate in the medical record: Patient has no known allergies. PHYSICAL EXAMINATION: Vitals: Patient Vitals for the past 24 hrs: Pulse BP SpO2 04/28/23 1349 73 132/76 100 % Constitutional: Normal general appearance, no distress Respiratory: CTAB, no wheezes, rales Cardiovascular: Normal S1S2, no murmurs, rubs or gallops Vessels: Normal jugular venous pressure; palpable pulses in all extremities Extremities: No clubbing; no edema Musculoskeletal: No significant kyphosis; no difficulty in ambulating across the room Skin: No cyanosis, no open sores Neurologic: Alert, oriented to person, place and time Psychiatric: Normal mood and affect; no barriers to learning identified TESTING: I have reviewed the pertinent outside records, laboratory data, and imaging studies. LABS: No results for input(s): WBC, HGB, HCT, PLATELET, NA, K, BUN, CREATININE, HA1C, ALT, CHLPL, INR in the last 720 hours. Lab Results Component Value Date CHLPL 122 01/18/2023 HDL 27 01/18/2023 CHOLHDL 4.5 01/18/2023 LDLDIRECT 65 01/18/2023 ASSESSMENT: Miguel Sanchez is a 67 y.o. male patient presenting for an outpatient cardiology visit for CHF of unknown etiology CARDIAC-RELEVANT PROBLEM LIST: DM Hypertension Hyperlipidemia COPD HFrEF 45% (2019) Chest pain and unknown etiology - exertional and tightness in nature. Takes SLN PRN. PLAN: - He follows up with nephrology and urology. Patient notes that his kidney function takes priority over everything else. He is not interested in any GDMT that may worsen kidney function and he does not want any ischemic evaluation at this time that involves use of contrast. - Unfortunately, a nuclear MPI is very unreliable in patients with decreased LVEF and even if it isdiagnostic, patient is not interested in LHC/PCI at this time due to contrast use - Continue GDMT with Toprolol XL. - Patient self discontinued Jardiance and ARB due to reason above. He is currently euvolemic and not on diuretic at home. - Refer to EP for ICD consideration at 3 months - Chest pain - high pre-test probability of CAD - start Aspirin 81mg daily and Atorvastatin 40mg daily. SLN PRN for chest pain - Patient is off many medications in our system. Medical reconciliation completed based on what patient is actually taking Thank you for the opportunity to take care of Miguel Sanchez. Sincerely, Freedom Sunshine MD Interventional Poultry [employer] Icer 04/28/2023 CC: ELSIE Espinoza I have seen the patient and reviewed the above history/examination and I agree with the details as written. I have personally reviewed all available ECG tracings, echo images and prior cath films. The assessment and plan were formulated in discussion with me and I agree with them as documented. Marvin Ba MD 04/28/2023 3:48 PM documented in this encounter Plan of Treatment Upcoming Encounters Date Type Department Care Team (Late st Contact Info) Description 02/03/2024 10:00 AM EDT [place] [phone] Austin Simon MD [facility] [place] [address] Lindy Box APRN [facility] [place] [address] Scheduled Referrals Name Type Priority Associated Diagnoses Order Schedule Referral to Cardiac Electrophysiology Outpatient Referral Routine HFrEF (heart failure with reduced ejection fraction) Ordered: 04/28/2023 documented as of this encounter Visit Diagnoses Diagnosis HFrEF (heart failure with reduced ejection fraction) documented in this encounter Care Teams Internet Sales Associate Relationship Specialty Start Date End Date Reinier Arceo PA [address] [place] [address] PCP - General Internal Medicine 01/18/23 documented as of this encounter
--- OUTSIDE RECORDS SUMMARY | 2024-01-19 15:29 | XMS_ITS | Encounter Summary ---
Author Organization [facility] Address [facility] [place] [address] Care Team Providers Care Partnership Manager Name Role Phone Reinier Arceo Primary Care Provider [phone] Encounter Details Date Type Department Care Team (Latest Contact Info) Description 02/24/2023 4:00 PM EDT Office Visit [place] [id number] Deonte Lugo MD [facility] [place] [address] Chronic kidney disease, unspecified CKD stage; Chronic kidney disease, stage 4 (severe) Social History Tobacco Use Types Packs/Day Years Used Date Smoking Tobacco: Never Tobacco Cessation:Counseling Given: Not Answered Alcohol Use Standard Drinks/Week Comments Never 0 (1 standard drink = 0.6 oz pur e alcohol) [facility] Inpatient Questions Answer Date Recorded Does Anyone [...] Sign Reading Time Taken Comments Blood Pressure 109/70 02/24/2023 4:12 PM EDT Pulse 83 02/24/2023 4:12 PM EDT Temperature - - Respiratory Rate - - Oxygen Saturation 99% 02/24/2023 4:12 PM EDT Inhaled Oxygen Concentration - - Weight - - Height 165.1 cm (5' 5) 02/24/2023 4:12 PM EDT Body Mass Index - - documented in this encounter Progress Notes * Deonte Lugo MD - 02/24/2023 4:00 PM EDT Hypertension-Nephrology Consultation Miguel Sanchez [id number] ID: [id number] y.o. old male seen for post hospital followup for obstructive nephropathy. See problems below for integrated history, assessment, & plan. No past medical history on file. No past surgical history on file. Medications: Outpatient Encounter Medications as of 02/24/2023 Medication Sig Dispense Refill OLANZapine (ZyPREXA) 10 mg tablet Take 10 mg by mouth nightly. metFORMIN (Glucophage) 500 mg tablet Take 500 mg by mouth 2 times daily (with meals). semaglutide (Rybelsus) 3 mg tablet Take 3 mg by mouth daily. ketoconazole (Nizoral) 2 % Cream Apply topically daily. Apply a small amount to affected area twicea day pioglitazone (Actos) 15 mg tablet Take 15 mg by mouth daily. furosemide (Lasix) 40 mg tablet Take 40 mg by mouth daily. albuteroL 90 mcg/actuation HFA Aerosol Inhaler Inhale 2 puffs into the lungs every 4 hours as needed for Wheezing. Use with spacer inhalational spacing device (Chris Aerosol [place] Enhancer) Spacer by [facility]Non- Drug; Combo Route) route. nitroGLYcerin (Nitrostat) 0.4 [...] betamethasone dipropionate (Diprolene) 0.05 % Cream daily. [DISCONTINUED] naproxen sodium (Anaprox) 220 mg tablet Q8H empagliflozin (Jardiance) 25 mg tablet Take 25 mg by mouth daily. atorvastatin (Lipitor) 80 mg tablet Take 80 mg by mouth daily. glipiZIDE (Glucotrol) 10 mg tablet Take 10 mg by mouth 2 times daily (before meals). metoprolol succinate XL (Toprol-XL) 25 mg ER 24 hr tablet Take 1 tablet by mouth daily. 30 tablet 12 finasteride (Proscar) 5 mg tablet Take 1 tablet by mouth daily. 90 tablet 3 tamsulosin (Flomax) 0.4 mg capsule Take 2 capsules by mouth daily. 90 tablet 3 losartan (Cozaar) 25 mg tablet Take 0.5 tablets by mouth daily. 90 tablet 3 triamcinolone (KENALOG) 0.1 % cream Apply topically 2 times daily. gabapentin (NEURONTIN) 100 mg capsule Take 100 mg by mouth 3 times daily. [DISCONTINUED] carvediloL (Coreg) 25 mg tablet Twice a day [DISCONTINUED] ibuprofen (Advil) 200 mg tablet Q8H [DISCONTINUED] indomethacin (Indocin) 50 mg capsule Twice a day [DISCONTINUED] ketoconazole (Nizoral) 2 % Cream Twice a day [DISCONTINUED] lisinopriL (Zestril) 10 mg tablet daily. [DISCONTINUED] simvastatin (Zocor) 40 mg tablet daily. [DISCONTINUED] OLANZapine (ZyPREXA) 7.5 mg tablet Take 15 mg by mouth nightly. [DISCONTINUED] furosemide (Lasix) 40 mg tablet Take 40 mg by mouth daily. [DISCONTINUED] semaglutide (Rybelsus) 7 mg tablet Take 3 mg by mouth daily. [DISCONTINUED] cholecalciferol (Vitamin D3) 1,000 unit tablet Take 5 tablets by mouth daily. (Patient not taking: Reported on 02/24/2023) 90 tablet 3 [DISCONTINUED] metFORMIN (Glucophage) 500 mg tablet Take 500 mg by mouth 2 times daily (with meals). pimozide (ORAP) 2 mg Tablet Take 2 mg by mouth 2 times daily. No facility-administered encounter medications on file as of 02/24/2023. Allergies / ADRs: No Known Allergies Family History: No family history on file. Social History: Social History Socioeconomic History Marital status: Single Spouse name: Not on file Number of children: Not on file Years of education: Not on file Highest education level: Not on file Occupational History Not on file Tobacco Use Smoking status: Never Smokeless tobacco: Not on file Vaping Use Vaping Use: Never used Substance and Sexual Activity Alcohol use: Never Drug use: Never Sexual activity: Not on file Other Topics Concern Not on file Social History Narrative Not on file Social Determinants of Health Financial Resource Strain: Not on file Food Insecurity: Not on file Transportation Needs: Not on file Physical Activity: Not on file Housing Stability: Not on file Review of Systems: Patient has been in rehab since shortly after discharge and feels very lightheaded/SOB following therapy. He notes his BP has come down to as low as 76/50 with treatment. Physical Examination: Vitals Flowsheet Row Office Visit from 02/24/2023 in Nephrology Hypertension at [facility] Height 165.1 cm (5' 5) Heart Rate 83 BP 109/70 Patient Position Sitting SpO2 99 % BP Readings from Last 3 Encounters: 02/24/23 109/70 01/27/23 134/80 Body mass index is 37.64 kg/m??. General: Not in distress, seated comfortably today. HEENT: EOM intact, sclera clear, mucous membranes moist. CV: S1 & S2 faint but audible I do not appreciate a murmur on exam. Resp: Breathing is comfortable on room air, lungs are clear bilaterally Abd: Soft, non-tender, non-distended. Ext: No edema in the lower extremities. Skin: No rashes or lesions on the exposed skin. Neuro: Alert & oriented, no focal deficits. Psych: Pleasant and calm, conversational attention is intact. Relevant Labs & Imaging: Lab Results Component Value Date CREATININE 4.18 (H) 02/24/2023 CREATININE 4.74 (H) 01/27/2023 CREATININE 4.91 (H) 01/26/2023 CREATININE 5.06 (H) 01/25/2023 CREATININE 5.46 (H) 01/24/2023 ESTGFR 15 (L) 02/24/2023 ESTGFR 13 (L) 01/27/2023 ESTGFR 12 (L) 01/26/2023 ESTGFR 12 (L) 01/25/2023 ESTGFR 11 (L) 01/24/2023 CO2 20 (L) 02/24/2023 CO2 15 (L) 01/27/2023 CO2 18 (L) 01/26/2023 CO2 19 (L) 01/25/2023 CO2 21 (L) 01/24/2023 Lab Results Component Value Date NA 137 02/24/2023 NA 137 01/27/2023 NA 139 01/26/2023 NA 139 01/25/2023 NA 139 01/24/2023 K 4.5 02/24/2023 K 4.8 01/27/2023 K 4.8 01/26/2023 K 4.5 01/25/2023 K 4.5 01/24/2023 Lab Results Component Value Date UMICALBCALC 196 (H) 02/24/2023 UPROTCREAT 0.4 02/24/2023 Lab Results Component Value Date HGB 12.1 (L) 02/24/2023 FERRITIN 478 (H) 01/20/2023 IRONSAT 30 01/20/2023 Lab Results Component Value Date CALCIUM 9.4 02/24/2023 PHOS 3.3 02/24/2023 PTH 144 (H) 02/24/2023 25OHVITD 16 (L) 02/24/2023 History & Summary: Miguel is being seen today for post hospital follow-up of obstructive nephropathy. Unfortunately he did not do well a home and was unable to keep up with ADLs. Went back to hospital briefly up [place] and is now in Rehab where he's working on his strength. He is frustrated by this and not very happy there but is working hard to get stronger and get home. He feels okay but notices that he's super weak and tired particularly after therapy. His blood pressure has gone low after therapy as well, recently 76/50 and he had to lie down. He does not recall what meds he's on, not sure if he's on a diuretic but doesn't think so. He's pretty sure the vitamin D supplement has been stopped. F/u scheduled [facility] urology next week up [place] for another voiding trial. He failed one voiding trial after discharge and the alfaro catheter was replaced. *I note that we did not have an accurate med rec from the rehab facility at the time of the appointment. Our MA tracked it down after the appointment. See below*. # Renal Function # CKD IV-V # Obstructive Nephropathy No Proteinuria. Renal US demonstrates pelvicaliectasis bilaterally on 01/25, persistent from prior study. ACEi/ARB: Losartan 12.5 mg BID SGLT2: Empagliflozin 25 mg Daily ESRD/Access planning: Not yet initiated # Hemodynamics # CHF # Hypotension BP Readings from Last 3 Encounters: 02/24/23 109/70 01/27/23 134/80 Volume Status:Appears euvolemic today Diuretic regimen: Furosemide 40 mg po daily Also on metoprolol succinate 25 mg daily # Heme Anemia CKD Hgb mildly low, iron studies acceptable. # Acid/Base # Metabolic Acidosis Most recent Bicarb low, not currently on sodium bicarbonate supplementation. Would Add NaHCO3 if serum bicarb persistently < 22mmol/l # Bone & Mineral # Vitamin D Deficiency # Secondary Hyperparathyroidism Not currently on vitamin D supplement Assessment & Plan: Miguel Sanchez is a 67 y.o. male seen today for post hospital follow-up of obstructive nephropathy and CKD IV-V. His creatinine has improved some, unclear if it will keep improving or if this his new baseline. He appears euvolemic today in the setting of his heart failure. Unfortunately we did not havean accurate med list during the visit but were able to get this after the appointment. His blood pressure is going very low after treatment unclear if this is orthostasis or just over treatment in general. He is not on much in the way of anti-hypertensives but is on a loop diuretic for volume management (perhaps worth evaluating this particularly with vitals before and after ambulation). The SGLT2 inhibitor and low dose ARB are indicated for the heart failure, but could be playing some role in the lower pressures as well. Preferably he would remain on both of them but we might have to consider stopping if BP is being driven too low. I do see metformin on the med list, with his GFR I would advise stopping this. Depending on what his bicarb does with this change we will need to consider starting sodium bicarbonate supplementation. He should also be restarted on vitamin D supplementation (c holecalciferol 5000 U daily or ergocalciferol 40342 U weekly). I phoned Miguel after the appt and went over the labs. Ideally we can see him in a month to keep a close eye on things, he is good with this. I also phoned his PCP office, they will tentatively plan for a clinic visit next week to go over some of these medicines and the hypotension. Follow-up visit recommended in 1 month. Orders Placed This Encounter Procedures CBC (with Diff) Basic Metabolic Panel (non-fasting) Vitamin D, 25-Hydroxy PTH Phosphorus U Albumin/Cre Ratio Protein/Creatinine Ratio, urine Hemogram Differential, Automated Sodium, urine, random This case was staffed with Dr. Crawford. eDonte Lugo MD Nephrology-Hypertension Fellow * Yolis Crawford MD - 02/24/2023 4:00 PM EDT Nephrology Attending Miguel Sanchez was seen and examined and discussed with Dr Lugo and the data and chart were reviewed. My findings and recommendations are accurately detailed Dr Lugo's note. The findings, recommendations, and plan for ongoing care were discussed with the patient. documented in this encounter Plan of Treatment Upcoming Encounters Date Type Department Care Team (Late st Contact Info) Description 02/03/2024 10:00 AM EDT Procedure [place] [address] Austin Simon MD [facility] [place] [address] Lindy Box APRN [facility] [place] [address] documented as of this encounter Procedures Procedure Name Priority Date/Time Associated Diagnosis Comments HC PARATHYROID HORMONE(PTH INTACT Routine 02/24/2023 5:27 PM EDT Chronic kidney disease, unspecified CKD stage HEMOGRAM STAT 02/24/2023 5:27 PM EDT Chronic kidney disease, unspecified CKD stage DIFFERENTIAL, AUTOMATED STAT 02/24/2023 5:27 PM EDT Chronic kidney disease, unspecified CKD stage HC VITAMIN D TOTAL-25 HYDROXY Routine 02/24/2023 5:27 PM EDT Chronic kidney disease, unspecified CKD stage Chronic kidney disease, stage 4 (severe) HC CBC,PLT & AUTO DIFF STAT 02/24/2023 5:27 PM EDT Chronic kidney disease, unspecified CKD stage HC VENIPUNCTURE Routine 02/24/2023 5:27 PM EDT Chronic kidney disease, unspecified CKD stage BASIC METABOLIC PANEL (NON-FASTING) Routine 02/24/2023 5:27 PM EDT Chronic kidney disease, unspecified CKD stage HC CREATININE - NON BLOOD Routine 02/24/2023 4:00 PM EDT Chronic kidney disease, unspecified CKD stage HC CREATININE - NON BLOOD Routine 02/24/2023 4:00 PM EDT Chronic kidney disease, unspecified CKD stage SODIUM, URINE, RANDOM Routine 02/24/2023 4:00 PM EDT documented in this encounter Results * (ABNORMAL) Differential, Automated (02/24/2023 5:27 PM EDT) Neutrophils % 78.1 % [facility] Neutr Abs (ANC) 5.03 1.70 - 6.10 x10(3)/mc L [facility] Lymphocytes % 12.7 % [facility] Lymphocytes Abs 0.8(L) 0.9 - 3.2 x10(3)/mc L [facility] Monocytes % 6.0 % [facility] Monocyte Abs 0.4 0.3 - 0.9 x10(3)/mc L [facility] Eosinophils % 2.3 % [facility] Eosinophils Abs 0.2 0.0 - 0.4 x10(3)/[facility] Basophils % 0.6 % [facility] Basophils Abs 0.0 0.0 - 0.1 x10(3)/[facility] Immature Gran % 0.30 % [facility] Comment: Immature granulocytes(IG's)percentage and absolute count will include metamyelocytes, myelocytes, and promyelocytes. Blood smears from CBCs yielding IG's will be scanned manually for concordance. If this scan disagrees with the automated IG or if promyelocytes are noted, a manual differential will be performed. Angelica Gran Abs 0.02 0.00 - 0.04 x10(3)/[facility] Blood 02/24/2023 5:27 PM EDT 02/24/2023 5:35 PM EDT Narrative Resulting Agency Comment Spec In Lab Deonte Lugo MD HEMATOLOGY ORDERABL ES [facility] [place] [address] * (ABNORMAL) Hemogram (02/24/2023 5:27 PM EDT) WBC 6.4 4.0 - 9.5 x10(3)/[facility] RBC 3.96(L) 4.58 - 5.54 x10(6)/[facility] Hemoglobin 12.1(L) 13.7 - 16.5 g/dL [facility] Hematocrit 35.2(L) 40.5 - 48.5 % [facility] MCV 88.9 82.9 - 93.1 fL [facility] MCH 30.6 27.5 - 32.1 pg [facility] MCHC 34.4 32.0 - 35.7 g/dL [facility] Platelets 186 145 - 357 x10(3)/[facility] RDWSD 40.8 36.0 - 45.0 fL [facility] RDWCV 12.4 11.4 - 13.8 % [facility] MPV 12.3 7.6 - 12.9 fL [facility] nRBC % Auto 0.3 % [facility] nRBC Abs Auto 0.020(H) 0.000 - 0.000 x10(3)/mcL [facility] Blood 02/24/2023 5:27 PM EDT 02/24/2023 5:35 PM EDT Narrative Resulting Agency Comment Spec In Lab Deonte Lugo MD HEMATOLOGY ORDERABL ES Performing Organization Address [facility]/ZIP Co de Phone Number [facility] [place] [address] * Phosphorus (02/24/2023 5:27 PM EDT) Phosphorus 3.3 2.5 - 4.5 mg/dL [facility] Blood 02/24/2023 5:27 PM EDT 02/24/2023 5:35 PM EDT Narrative Resulting Agency Comment Spec In Lab Yolis Crawford MD CHEMISTRY ORDERABLES Performing Organization Address [facility] Co de Phone Number [facility] [place] [address] * (ABNORMAL) PTH (02/24/2023 5:27 PM EDT) PTH 144(H) 15 - 65 pg/mL [facility] Blood 02/24/2023 5:27 PM EDT 02/24/2023 5:35 PM EDT Narrative Resulting Agency Comment Spec In Lab Yolis Crawford MD CHEMISTRY ORDERABLES Performing Organization Address [facility]/ZIP Co de Phone Number [facility] [place] [address] * (ABNORMAL) Vitamin D, 25-Hydroxy (02/24/2023 5:27 PM EDT) 25-OH Vit D Total 16(L) 21 - 100 ng/mL [facility] 25-OH Vit D Interp Deficient [facility] Blood 02/24/2023 5:27 PM EDT 02/24/2023 5:35 PM EDT Narrative Resulting Agency Comment Spec In Lab Yolis Crawford MD CHEMISTRY ORDERABLES [facility] [place] [address] * (ABNORMAL) Basic Metabolic Panel (non-fasting) (02/24/2023 5:27 PM EDT) Glucose Lvl 126 65 - 199 mg/dL [facility] Comment:Diabetes: >=200 mg/d L plus symptoms BUN 49(H) 10 - 20 mg/dL [facility] Creatinine 4.18(H) 0.80 - 1.50 mg/dL [facility] Sodium 137 135 - 145 mmol/L [facility] Potassium 4.5 3.5 - 5.0 mmol/L [facility] Comment: Please note: ??Patients with WBC >100,000 may have falsely elevated Potassium levels. ??For accurate Potassium quantification in these patients send serum separator tube (gold top) for subsequent determinations. ??Contact the Clinical Chemistry Laboratory if there are any questions. Chloride 104 98 - 107 mmol/L [facility] CO2 20(L) 22 - 31 mmol/L [facility] Anion Gap 13 5 - 15 mmol/L [facility] Calcium 9.4 8.5 - 10.5 mg/dL [facility] Estimated GFR 15(L) >=60 mL/min/1. 73 m?? [facility] Comment: This patient's estimated GFR was [...] and symptoms in addition to eGFR. Blood 02/24/2023 5:27 PM EDT 02/24/2023 5:35 PM EDT Narrative Resulting Agency Comment Spec In Lab Yolis Crawford MD CHEMISTRY ORDERABLES Performing Organization Address City/[facility]/ZIP Co de Phone Number [facility] [place] [address] * Sodium, urine, random (02/24/2023 4:00 PM EDT) U Sodium <20 mmol/L [facility] Urine Urine / Unknown 02/24/2023 4 :00 PM EDT 02/24/2023 5:25 PM EDT Narrative Resulting Agency Comment Spec In Lab Deonte Lugo MD URINE ORDERABLES Performing Organization Address [facility] Co de Phone Number [facility] [place] [address] * (ABNORMAL) Protein/Creatinine Ratio, urine (02/24/2023 4:00 PM EDT) U Creatinine 64 mg/dL [facility] U Protein Ran 28(H) 0 - 12 mg/dL [facility] Prot/Cre Ratio 0.4 ratio [facility] Urine 02/24/2023 4:00 PM EDT 02/24/2023 5:25 PM EDT Narrative Resulting Agency Comment Spec In Lab Yolis Crawford MD URINE ORDERABLES Performing Organization Address City/[facility]/ZIP Co de Phone Number [facility] [place] [address] * (ABNORMAL) U Albumin/Cre Ratio (02/24/2023 4:00 PM EDT) Alb/Cr Ratio, Random 196(H) 0 - 29 mcg/mg Cr [facility] Comment: Reference Ranges: <30 mcg/mg: Normal 30-300 mcg/mg: Moderately increased albuminuria.* >300 mcg/mg: Severely increased albuminuria. * ACEI or ARB recommended if diabetic; suggested if BP>130/80 without diabetes ACEI or ARB strongly recommended if diabetic; recommended if BP>130/80 without diabetes Two of three specimens collected within a 3 to 6 month period should be abnormal before considering a patient to have albuminuria. Transient causes: exercise, fever, infection, CHF, marked hyperglycemia or hypertension. Persistent albuminuria indicates CKD and is an independent risk factor for ASCVD. ADA Standards of Medical Care in Diabetes-2016; KDIGO: Kidney International Supplements (2012) 2, 357? 362 U Albumin Conc, Random 125.5 mg/L [facility] U Creatinine 64 mg/dL [facility] Urine 02/24/2023 4:00 PM EDT 02/24/2023 5:25 PM EDT Narrative Resulting Agency Comment Spec In Lab Yolis Crawford MD URINE ORDERABLES [facility] [place] [address] documented in this encounter Visit Diagnoses Diagnosis Chronic kidney disease, unspecified CKD stage Chronic kidney disease, stage 4 (severe) documented in this encounter Care Teams Partnership Manager Relationship Specialty Start Date End Date Reinier Arceo PA [address] [place] [address] PCP - General Internal Medicine 01/18/23 documented as of this encounter
--- OUTSIDE RECORDS SUMMARY | 2024-01-19 15:29 | XMS_ITS | Encounter Summary ---
[place] [address] Care Team Providers Care Clinical Documentation Clerk Name Role Phone Reinier Arceo Primary Care Provider [phone] Reason for Referral * Consultation (Routine) - Authorized Specialty Diagnoses / Procedures Referred By [facility] Referred To Contact Urology Diagnoses Benign prostatic hyperplasia with lower urinary tract symptoms, symptom details unspecified Other retention of urine Tiffanie Muñoz APRN [address] [place] [address] [facility] [place] [address] Referral ID Status Reason Start Date Expiration Date Visits Requested Visits Authorized [id number] Authorized Consult, Test & Treat PCP Updated and/or Approved 06/01/2023 05/31/2024 6 6 Encounter Details Date Type Department Care Team (Latest Contact Info) Description 06/01/2023 Transcribe Orders eDH Incoming Referrals [phone] Tiffanie Muñoz APRN [address] [place], [place] [id number] Benign prostatic hyperplasia with lower urinary tract symptoms, symptom details unspecified; Other retention of urine Social History Tobacco Use Types Packs/Day Years Used Date Smoking Tobacco: Never Alcohol Use Standard Drinks/Week Comments Never 0 (1 standard drink = 0.6 oz pur e alcohol) [facility] Inpatient Questions Answer Date Recorded Does [...] 10:00 AM EDT Procedure visit Urology at [facility] [place] [address] Austin Simon MD [facility] [place] [address] Lindy Box APRN [facility] [place] [address] Scheduled Referrals Name Type Priority Associated Diagnoses Orde r Schedule Referral to Urology Outpatient Referral Routine Benign prostatic hyperplasia with lower urinary tract symptoms, symptom details unspecified Other retention of urine Ordered: 06/01/2023 documented as of this encounter Visit Diagnoses Diagnosis Benign prostatic hyperplasia with lower urinary tract symptoms, symptom details unspecified Other retention of urine documented in this encounter Care Teams Clinical Documentation Clerk Relationship Specialty Start Date End Date Reinier Arceo PA [address] [place] [address] PCP - General Internal Medicine 01/18/23 documented as of this encounter
--- OUTSIDE RECORDS SUMMARY | 2024-01-19 15:29 | XMS_ITS | Encounter Summary ---
Author Organization [facility] [place] [address] Care Team Providers Care Network Firewall Engineer Name Role Phone Reinier Arceo Primary Care Provider [phone] Encounter Details Date Type Department Care Team (Latest Contact Info) Description 09/14/2023 Travel Social History Tobacco Use Types Packs/Day [...] 10:00 AM EDT Procedure visit Urology at [facility] [place] [address] Austin Simon MD [facility] [address] Lnidy Box APRN [facility] [place] [address] documented as of this encounter Visit Diagnoses Not on filedocumented in this encounter Care Teams Network Firewall Engineer Relationship Specialty Start Date End Date Reniier Arceo PA [address] [place] [address] PCP - General Internal Medicine 01/18/23 documented as of this encounter
--- OUTSIDE RECORDS SUMMARY | 2024-01-19 15:29 | XMS_ITS | Encounter Summary ---
Author Organization [facility] Address [facility] [place] [address] Care Team Providers Care Slipman Name Role Phone Reinier Arceo Primary Care Provider [phone] Encounter Details Date Type Department Care Team (Latest Contact Info) Description 04/28/2023 Travel Social History Tobacco Use Types Packs/Day [...] 10:00 AM EDT Procedure [place] [address] Austin Simon MD [facility] [place] [address] [place] [address] Lindy Bxo APRN [facility] [place] [address] documented as of this encounter Visit Diagnoses Not on filedocumented in this encounter Care Teams Slipman Relationship Specialty Start Date End Date Reinier Arceo PA [address] [place] [address] PCP - General Internal Medicine 01/18/23 documented as of this encounter
--- OUTSIDE RECORDS SUMMARY | 2024-01-19 15:29 | XMS_ITS | Encounter Summary ---
Author Organization [facility] [place] [address] Care Team Providers Care Fibrous Wallboard Inspector Name Role Phone Reinier Arceo Primary Care Provider [phone] Encounter Details Date Type Department Care Team (Latest Contact Info) Description 06/23/2023 2:30 PM EST Laboratory Appointment Lab [address] [place] [address] Chronic kidney disease, unspecified CKD stage; Stage 3 chronic kidney disease, unspecified whether stage 3a or 3b CKD Social History Tobacco Use Types Packs/Day Years Used Date Smoking Tobacco: Never Smokeless Tobacco: Never Alcohol Use Standard Drinks/Week Comments Never 0 (1 standard drink = 0.6 oz pur e alcohol) [facility] Inpatient Questions Answer Date Recorded Does [...] 10:00 AM EDT [place] [address] Austin Simon MD [facility] [place] [place] [address] Lindy Box APRN [facility] [place] [address] documented as of this encounter Procedures Procedure Name Priority Date/Time Associated Diagnosis Comments HC IMMUNOGLOBULIN FREE LIGHT CHAINS, SERUM Routine 06/23/2023 2:43 PM EST Chronic kidney disease, unspecified CKD stage HC PARATHYROID HORMONE(PTH INTACT Routine 06/23/2023 2:43 PM EST Chronic kidney disease, unspecified CKD stage HEMOGRAM Routine 06/23/2023 2:43 PM EST Chronic kidney disease, unspecified CKD stage DIFFERENTIAL, AUTOMATED Routine 06/23/2023 2:43 PM EST Chronic kidney disease, unspecified CKD stage HC PCH CYSTATIN C Routine 06/23/2023 2:4 3 PM EST Chronic kidney disease, unspecified CKD stage HC IRON BINDING CAPACITY Routine 06/23/2023 2:43 PM EST Chronic kidney disease, unspecified CKD stage HC VITAMIN D TOTAL-25 HYDROXY Routine 06/23/2023 2:43 PM EST Chronic kidney disease, unspecified CKD stage Stage 3 chronic kidney disease, unspecified whether stage 3a or 3b CKD HC CBC,PLT & AUTO DIFF Routine 2:43 PM EST Chronic kidney disease, unspecified CKD stage HC VENIPUNCTURE Routine 06/23/2023 2:43 PM EST Chronic kidney disease, unspecified CKD stage HC PHOSPHORUS, SERUM Routine 06/23/2023 2:43 PM EST Chronic kidney disease, unspecified CKD stage HC FERRITIN, SERUM Routine 06/23/2023 2: 43 PM EST Chronic kidney disease, unspecified CKD stage HC ALBUMIN, SERUM Routine 06/23/2023 2:4 3 PM EST Chronic kidney disease, unspecified CKD stage BASIC METABOLIC PANEL (NON-FASTING) Routine 06/23/2023 2:43 PM EST Chronic kidney disease, unspecified CKD stage documented in this encounter Results * Differential, Automated (06/23/2023 2:43 PM EST) Neutrophils % 69.8 % [facility] Neutr Abs (ANC) 5.06 1.70 - 6.10 x10(3)/[facility] Lymphocytes % 19.0 % [facility] Lymphocytes Abs 1.4 0.9 - 3.2 x10(3)/[facility] Monocytes % 8.1 % [facility] Monocyte Abs 0.6 0.3 - 0.9 x10(3)/[facility] Eosinophils % 1.8 % [facility] Eosinophils Abs 0.1 0.0 - 0.4 x10(3)/[facility] Basophils % 1.0 % [facility] Basophils Abs 0.1 0.0 - 0.1 x10(3)/[facility] LAB[facility] Immature Gran % 0.30 % [facility] Comment: Immature granulocytes(IG's)percentage and absolute count will include metamyelocytes, myelocytes, and promyelocytes. Blood smears from CBCs yielding IG's will be scanned manually for concordance. If this scan disagrees with the automated IG or if promyelocytes are noted, a manual differential will be performed. Angelica Gran Abs 0.02 0.00 - 0.04 x10(3)/[facility] Blood 06/23/2023 2:43 PM EST 06/23/2023 2:49 PM EST Narrative Resulting Agency Comment Spec In Lab Deonte Lugo MD HEMATOLOGY ORDERABL ES [facility] [place] [address] * (ABNORMAL) Hemogram (06/23/2023 2:43 PM EST) WBC 7.2 4.0 - 9.5 x10(3)/[facility] RBC 4.16(L) 4.58 - 5.54 x10(6)/[facility] Hemoglobin 12.1(L) 13.7 - 16.5 g/dL [facility] Hematocrit 35.6(L) 40.5 - 48.5 % [facility] MCV 85.6 82.9 - 93.1 fL [facility] MCH 29.1 27.5 - 32.1 pg [facility] MCHC 34.0 32.0 - 35.7 g/dL [facility] Platelets 205 145 - 357 x10(3)/[facility] RDWSD 42.2 36.0 - 45.0 [facility] RDWCV 13.6 11.4 - 13.8 % [facility] MPV 12.1 7.6 - 12.9 [facility] nRBC % Auto 0.0 % [facility] nRBC Abs Auto 0.000 0.000 - 0.000 x10(3)/[facility] Blood 06/23/2023 2:43 PM EST 06/23/2023 2:49 PM EST Narrative Resulting Agency Comment Spec In Lab Deonte Lugo MD HEMATOLOGY ORDERABL ES Performing Organization Address City/State/[facility] Co de Phone Number [facility] [place] [address] * (ABNORMAL) Basic Metabolic Panel (non-fasting) (06/23/2023 2:43 PM EST) Glucose Lvl 110 65 - 199 mg/dL [facility] Comment:Diabetes: >=200 mg/d L plus symptoms BUN 17 10 - 20 mg/dL [facility] Creatinine 2.10(H) 0.80 - 1.50 mg/dL [facility] Sodium 134(L) 135 - 145 mmol/L [facility] Potassium 4.7 3.5 - 5.0 mmol/L [facility] Comment: Please note: ??Patients with WBC >100,000 may have falsely elevated Potassium levels. ??For accurate Potassium quantification in these patients send serum separator tube (gold top) for subsequent determinations. ??Contact the Clinical Chemistry Laboratory if there are any questions. Chloride 101 98 - 107 mmol/L [facility] CO2 20(L) 22 - 31 mmol/L [facility] Anion Gap 13 5 - 15 mmol/L [facility] Calcium 8.9 8.5 - 10.5 mg/dL [facility] Estimated GFR 34(L) >=60 mL/min/1. 73 m?? [facility] [...] In Lab Abel Brantley MD CHEMISTRY ORDERABLES [facility] [place] [address] * (ABNORMAL) PTH (06/23/2023 2:43 PM EST) PTH 110(H) 15 - 65 pg/mL [facility] Blood 06/23/2023 2:43 PM EST 06/23/2023 2:49 PM EST Narrative Resulting Agency Comment Spec In Lab Abel Brantley MD CHEMISTRY ORDERABLES Performing Organization Address [facility]/ZIP Co de Phone Number [facility] [place] [address] * (ABNORMAL) Ferritin (06/23/2023 2:43 PM EST) Ferritin 596(H) 31 - 409 ng/mL [facility] Comment: Please note that as of 06/02/2023, the reference intervals for Ferritin have been updated. Blood 06/23/2023 2:43 PM EST 06/23/2023 2:49 PM EST Narrative Resulting Agency Comment Spec In Lab Abel Brantley MD CHEMISTRY ORDERABLES Performing Organization Address [facility] Co de Phone Number [facility] [place] [address] * (ABNORMAL) Vitamin D, 25-Hydroxy (06/23/2023 2:43 PM EST) 25-OH Vit D Total 13(L) 21 - 100 ng/mL [facility] 25-OH Vit D Interp Deficient [facility] Blood 06/23/2023 2:43 PM EST 06/23/2023 2:49 PM EST Narrative Resulting Agency Comment Spec In Lab Abel Brantley MD CHEMISTRY ORDERABLES Performing Organization Address [facility] Co de Phone Number [facility] [place] [address] * (ABNORMAL) Cystatin C (06/23/2023 2:43 PM EST) Cystatin C 2.81(H) 0.67 - 1.21 mg/L [facility] Comment: Test Performed by: [address] [address] Stretch Box Tender: Jimmy Zavala M.D. Ph.D.; CLIA# [id number] Cystatin C eGFR 19(L) >60 mL/min/BS A [facility] Comment: Estimated GFR calculated using [...] with the new assay. Test Performed by: [place] [address] Stretch Box Tender: Jimmy Zavala M.D. Ph.D.; CLIA# [id number] Blood 06/23/2023 2:43 PM EST 06/23/2023 4:05 PM EST Narrative Resulting Agency Comment Spec In Lab Abel Brantley MD CHEMISTRY ORDERABLES Performing Organization Address [facility] Co de Phone Number [facility] [place] [address] * (ABNORMAL) Iron and TIBC (06/23/2023 2:43 PM EST) Pathologist [facility] Iron 53 45 - 160 mcg/dL [facility] TIBC 170(L) 250 - 450 mcg/dL [facility] Iron Saturation 31 20 - 50 % [facility] Blood 06/23/2023 2:43 PM EST 06/23/2023 2:49 PM EST Narrative Resulting Agency Comment Spec In Lab Abel Brantley MD CHEMISTRY ORDERABLES Performing Organization Address [facility] Co de Phone Number [facility] [place] [address] * (ABNORMAL) Free Light Chains, Serum (06/23/2023 2:43 PM EST) [place] Free Light Chain 7.48(H) 0.72 - 2.75 mg/dL [facility] Lambda Free Light Chain 4.87(H) 0.57 - 2.15 mg/dL [facility] [place] Lambda FLC Ratio 1.5359 0.4000 - 2.5800 [facility] Blood 06/23/2023 2:43 PM EST 06/23/2023 2:49 PM EST Narrative Resulting Agency Comment Spec In Lab Abel Brantley MD CHEMISTRY ORDERABLES Performing Organization Address [facility] de Phone Number [facility] [place] [address] * Albumin Level (06/23/2023 2:43 PM EST) Albumin 3.8 3.2 - 5.2 g/dL [facility] Blood 06/23/2023 2:43 PM EST 06/23/2023 2:49 PM EST Narrative Resulting Agency Comment Spec In Lab Abel Brantley MD CHEMISTRY ORDERABLES Performing Organization Address [facility] de Phone Number [facility] [place] [address] * Phosphorus (06/23/2023 2:43 PM EST) Phosphorus 3.4 2.5 - 4.5 mg/dL [facility] Blood 06/23/2023 2:43 PM EST 06/23/2023 2:49 PM EST Narrative Resulting Agency Comment Spec In Lab Abel Brantley MD CHEMISTRY ORDERABLES Performing Organization Address [facility] de Phone Number [facility] [place] [address] * Uric acid (06/23/2023 2:43 PM EST) Uric Acid 7.7 3.5 - 8.5 mg/dL [facility] Blood 06/23/2023 2:43 PM EST 06/23/2023 2:49 PM EST Narrative Resulting Agency Comment Spec In Lab Abel Brantley MD CHEMISTRY ORDERABLES [facility] [place] [address] documented in this encounter Visit Diagnoses Diagnosis Chronic kidney disease, unspecified CKD stage Stage 3 chronic kidney disease, unspecified whether stage 3a or 3b CKD documented in this encounter Care Teams Fibrous Wallboard Inspector Relationship Specialty Start Date End Date Reinier Arceo PA [address] [place] [address] PCP - General Internal Medicine 01/18/23 documented as of this encounter
--- OUTSIDE RECORDS SUMMARY | 2024-01-19 15:29 | XMS_ITS | Encounter Summary ---
Author Organization Formerly [facility] [place] [address] Care Team Providers Care Farm Equipment Engineer Name Role Phone Reinier Arceo Primary Care Provider [phone] Reason for Referral * Diagnostic Test (Routine) - Closed Specialty Diagnoses / Procedures Referred By Fady park Referred To Contact Radiology Diagnoses Benign prostatic hyperplasia with urinary retention Scrotal swelling Procedures CT Pelvis Soft Tissue (GI SOUND EFFECTS MANAGER) wo Contrast Meche Donato APRN [facility] [place] [address] Referral ID Status Reason Start Date Expiration Date V isits Requested Visits Authorized [id number] Closed Specialty Service Requested 07/07/2023 01/04/2025 1 1 Reason for Visit * Consultation (Routine) - Authorized Specialty Diagnoses / Procedures Referred By Fady park Referred To Contact Urology Diagnoses Benign prostatic hyperplasia with lower urinary tract symptoms, symptom details unspecified Other retention of urine Tiffanie Muñoz APRN [address] [place] [address] [facility] [place] [address] Referral ID Status Reason Start Date Expiration Date Visits Requested Visits Authorized [id number] Authorized Consult, Test & Treat PCP Updated and/or Approved 06/01/2023 05/31/2024 6 6 Encounter Details Date Type Department Care Team (Late st Contact Info) Description 07/07/2023 11:20 AM EST [place] [address] Meche Donato APRN Screening PSA (prostate specific antigen); Benign prostatic hyperplasia with urinary retention; Scrotal swelling Social History Tobacco Use Types Packs/Day Years [...] Sign Reading Time Taken Comments Blood Pressure 135/88 07/07/2023 11:16 AM EST Pulse 86 07/07/2023 11:16 AM EST Temperature - - Respiratory Rate - - Oxygen Saturation - - Inhaled Oxygen Concentration - - Weight - - Height - - Body Mass Index - - documented in this encounter Patient Instructions * Patient Instructions* Meche Donato APRN - 07/07/2023 11:20 AM EST - Go to 3L to have PSA checked today. - If PSA normal will do CT of your prostate to obtain prostate sizing, if PSA abnormal will do MRI of the prostate for prostate sizing and evaluation of prostate cancer. I will arrange imaging once PSA results come back. - Continue with alfaro exchanges with home Urologist, recommend doing void trial one more time as finasteride can sometimes take up to 6 months to relieve obstruction. If still unable to void ok to stop finasteride and will proceed with BPH surgery based on prostate size. documented in this encounter Progress Notes * Meche Donato APRN - 07/07/2023 11:20 AM EST [facility] SECTION OF UROLOGY UROLOGY CLINIC VISIT Name: Miguel Sanchez : 1955 Date: 07/07/2023 Referred by: Tiffanie Muñoz Chief Complaint: BPH with urinary retention. History of Present Illness: Miguel Sanchez is a 67 y.o. male who is being seen at the request of Johanne Muñoz for evaluation of BPH w/ urinary retention and consideration of BPH surgery. Urinary retention was initially discovered when presenting to [facility] ER for SOB and CHF exacerbation.He was found to have an elevated creatinine 6.1 and mild bilateral hydronephrosis, initially thought to be related to obstructive uropathy. Urology was consulted while inpatient and started him on tamsulosin & finasteride, recommending repeat void trial and renal US in 5-7 days. He was unable to void after catheter removed and refused to have alfaro replaced, in which he returned to ER severalhours later as still unable to void, alfaro replaced at this time. He then went to rehab and SNF for~4-6 weeks where void trial was done and ultimately results in being replaced. Follow up renal US sh ows some persistent mild hydronephrosis but creatinine is back to 2.1 at most recent nephrology visit, which is likely baseline. He has been undergoing monthly catheter exchanges at [facility] U[facility], last documented void trial was there end of March and still unable to void. Today he presents with urinary retention for the past 6 months, managed with alfaro. This has been ongoing since hospitalization here in 12/2022. He recalls having several days of lack of urinary control, gross hematuria, and then unable to void. He presented to ER and had alfaro catheter placed. Upon hospital discharge he had alfaro removed but was unable to void and returned to ER to have catheter replaced. He has not tried self cathing and not interested interested in this option. He was on tamsulosin & finasteride since December but stopped 2-3 weeks ago given still unable to void. He states he is doing ok with the catheter overall, but would prefer to get it out if surgery may help. No gross hematuria or dysuria. He has not had any recent UTI's. His bowel are regular. Avg Daily Fluid Intake: 1 cup coffee, 1 glass OJ, water the rest of the da. IPSS & [place]: pt declined given alfaro in place for several months. PSA History by my review: 08/2021: 0.8 : 1.62 - on finasteride No prostate imaging. Patient has never required prostate biopsy. Patient is currently not on any anticoagulation. [...] pneumonia) J18.9 Depression F32.A Discharge planning issues Z02.9 Heart failure with reduced ejection fraction I50.20 High blood cholesterol E78.00 Hx of hernia repair Z98.890, Z87.19 Hypertension I10 Panic attacks F41.0 Stage 3b chronic kidney disease N18.32 Vitamin D deficiency E55.9 Current Meds: not currently taking anything regularly, PCP aware. Current Outpatient Medications Medication Instructions albuteroL 90 mcg/actuation HFA Aerosol Inhaler 2 puffs, Inhalation, EVERY 4 HOURS PRN, Use with spacer atorvastatin (LIPITOR) 80 mg, Oral, DAILY cholecalciferol, Vitamin D3, 50 mcg (2,000 unit) Capsule Oral docusate sodium (COLACE) 100 mg, Oral, 2 TIMES DAILY finasteride (PROSCAR) 5 mg, Oral, DAILY gabapentin (NEURONTIN) 100 mg, 3 TIMES DAILY inhalational spacing device (Chris Aerosol [place] Enhancer) Spacer Misc.(Non-Drug; Combo Route) ketoconazole (Nizoral) 2 % Cream Topical (Top), DAILY, Apply a small amount to affected area twice a day magnesium hydroxide (Milk of Magnesia) Suspension Oral, DAILY PRN metoprolol succinate XL (TOPROL-XL) 25 mg, Oral, DAILY nitroGLYcerin (NITROSTAT) 0.4 mg, Sublingual, EVERY 5 MIN PRN OLANZapine (ZYPREXA) 10 mg, Oral, NIGHTLY pimozide (ORAP) 2 mg, Oral, 2 TIMES DAILY tamsulosin (FLOMAX) 0.8 mg, Oral, DAILY triamcinolone (KENALOG) 0.1 % cream 2 TIMES DAILY Past Surgical History: Procedure Laterality Date TONSILLECTOMY UMBILICAL HERNIA REPAIR Family Hx: No family hx malignancies. Social Hx: lives alone, never smoker, retired- multiple jobs in the past. Review of Systems: General: Denies fever, chills, unexpected weight loss/gain HEENT: Denies change in hearing or vision Respiratory: Denies SOB, cough Cardiac: Denies chest pain, palpitations, syncope, OROURKE GI: Denies changes in appetite, constipation, or diarrhea. : see HPI M/S: Denies weakness or unsteady gait Neuro: Denies headaches, lightheadedness, dizziness Endocrine: Denies diabetes or thyroid disease Skin: No new skin lesions or rashes OBJECTIVE FINDINGS: Physical Exam: Blood Pressure 135/88 (BP Location (NBP): Right arm, Patient Position: Sitting, BP Cuff Sizes: Adult (25-34 cm)) Pulse 86 GENERAL: Patient is well appearing and is not in acute distress. CARDIOVASCULAR: Extremities Appear warm and well perfused. without BLE Edema. RESPIRATORY: Breathing comfortably. No audible wheezes are appreciated. SKIN: Color normal. without significant skin lesions. ABDOMEN: The abdomen is soft, non-tender, without masses or organomegaly. The bladder is not palpable. There is no CV angle tenderness. : Phallus flaccid, circumcised, there is no urethral discharge or lesions. Right scrotum without swelling, erythema, or masses. Left scrotum with moderate swelling/mass, suspected hernia as no transillumination, non tender. Bilateral testes without masses, tenderness, or swelling. RECTAL: pt declined. M/S: without gross motor defects. NEURO: He is awake & alert. Oriented to Person, place, and time. PSYCH: His mood is appropriate. Review of Tests: Lab Results Component Value Date NA 134 (L) 06/23/2023 K 4.7 06/23/2023 CL 101 06/23/2023 CO2 20 (L) 06/23/2023 BUN 17 06/23/2023 CREATININE 2.10 (H) 06/23/2023 GLUCOSE 110 06/23/2023 CALCIUM 8.9 06/23/2023 ESTGFR 34 (L) 06/23/2023 Radiology personally reviewed today: no relevant imaging to review. 01/25/23: Renal Us IMPRESSION 1. No significant interval change in mild right pelvicaliectasis. 2. No left-sided collecting system dilatation. 3. Normal bilateral renal cortical thickness and corticomedullary differentiation. 4. Bladder not distended for evaluation, Alfaro catheter in place. 01/19/23: Renal US IMPRESSION 1. Both kidneys are normal in size and parenchymal thickness but have mild collecting system dilatation. 2. A Alfaro catheter is present in an otherwise empty and difficult to evaluate urinary bladder.. ASSESSMENT Miguel Sanchez is a 67 y.o. male with BPH with urinary retention x 6 months with repeated failed void trials. Exam today revealed left I spent this consultation with Mr Carrington discussing the causes, sequelae, and management of an enlarged prostate. I explained that enlargement of the prostate is common among men and there is increasing prevalence among older men. The severity of symptoms of an enlarged prostate, however, can vary widely. We reviewed medical management with alpha-blockers, which facilitates bladder emptying, is the first-line therapy. 5-alpha reductase inhibitors can also be used to shrink the prostate, but theeffects may not be realized for 6-12mo. Indications for surgical intervention include symptoms refractory to medical management, urinary retention, urinary tract infection, evidence of uropathy and worsening renal function, bladder stones, and gross hematuria. Discussed the difference between BPH w/ SOARES vs. Atonic Bladder. Discussed to distinguish the two Urodynamics can be performed. PLAN/RECOMMENDATIONS PSA screening today. - WNL He is [...] like to do repeat void trial at [facility] at time of next alfaro exchange. We reviewed surgical options using informational handout and descriptive diagram so patient is ableto make an informed decision and engage in a shared decision. He remains interested in PVP- will proceed with prostate sizing and arrange FUV with Dr. Simon. Follow up with Dr. Simon with CT prior. The patient expressed understanding and agreement with the above. All questions answered to his apparent satisfaction. Meche Donato APRN Section of Urology [facility] documented in this encounter Plan of Treatment Upcoming Encounters Date Type Department Care Team (Late st Contact Info) Description 02/03/2024 10:00 AM EDT Procedure [place] [address] Austin Simon MD [facility] [place] [address] Lindy Box APRN [facility] [place] [address] documented as of this encounter Procedures Procedure Name Priority Date/Time Associated Diagnosis Comments HC PROSTATE SPECIFIC AG SCREENING Routine 07/07/2023 12:21 PM EST Screening PSA (prostate specific antigen) documented in this encounter Results * CT Pelvis Soft Tissue (GI SOUND EFFECTS MANAGER) wo Contrast (09/14/2023 1:38 PM EDT) Anatomical [...] who have questions please contact the health care services manager that requested your imaging first. ? Electronically signed by: Halie Shell MD, [facility] ([phone]), at 09/14/2023 4:39 PM Narrative 09/14/2023 4:39 PM EDT EXAMINATION: CT PELVIS SOFT TISSUE (GI SOUND EFFECTS MANAGER) WO CONTRAST CLINICAL HISTORY: prostate sizing and [...] and vasculature. Urinary Bladder: Decompressed with a Alfaro catheter. Most notable multiple foci of intraluminal [...] 09/14/2023 EXAMINATION: CT PELVIS SOFT TISSUE (GI SOUND EFFECTS MANAGER) WO CONTRAST CLINICAL HISTORY: prostate sizing and [...] visceraand vasculature. Urinary Bladder: Decompressed with a Alfaro catheter. Most notable multiplefoci of intraluminal air [...] patients who have questions please contactthe health care services manager that requested your imaging first. Electronically signed by: Halie Shell MD, [facility]([phone]), at 09/14/2023 4:39 PM Meche Donato APRN IMG CT ORDERABLES * PSA Screen (07/07/2023 12:21 PM EST) PSA Total 1.62 0.00 - 4.00 ng/mL [facility] Comment: PLEASE NOTE: The above reference interval is intended for healthy males with an intact prostate. Values within this reference interval may indicate recurrence in men who have undergone radical prostatectomy. This result was generated using a Nupur Scott immunoassay. ??Results obtained from other methods or manufacturers cannot be used interchangeably with this method. Blood 07/07/2023 12:2 1 PM EST 07/07/2023 12:28 PM EST Narrative Resulting Agency Comment Spec In Lab Meche A Kinga DENNIS CHEMISTRY ORDERABLE S [facility] [place] [place] [address] documented in this encounter Visit Diagnoses Diagnosis Screening PSA (prostate specific antigen) Special screening for malignant neoplasm of prostate Benign prostatic hyperplasia with urinary retention Scrotal swelling Edema of male genital organs Benign prostatic hyperplasia with urinary retention Scrotal swelling Edema of male genital organs documented in this encounter Care Teams Farm Equipment Engineer Relationship Specialty Start Date End Date Reinier Arceo PA [address] [place] [address] PCP - General Internal Medicine 01/18/23 documented as of this encounter
--- OUTSIDE RECORDS SUMMARY | 2024-01-19 15:29 | XMS_ITS | Encounter Summary ---
Author Organization Formerly [facility] [place] [address] Care Team Providers Care Registered Nurse Supervisor Name Role Phone Reinier Arceo Primary Care Provider [phone] Encounter Details Date Type Department Care Team (Latest Contact Info) Description 07/07/2023 Travel Social History Tobacco Use Types Packs/Day [...] 10:00 AM EDT Procedure visit Urology at [facility] [place] [address] Austin Simon MD [facility] [place] [address] Lindy Box APRN [facility] [place] [address] documented as of this encounter Visit Diagnoses Not on filedocumented in this encounter Care Teams Registered Nurse Supervisor Relationship Specialty Start Date End Date Reinier Arceo PA [address] [place] [address] PCP - General Internal Medicine 01/18/23 documented as of this encounter
--- OUTSIDE RECORDS SUMMARY | 2024-01-19 15:29 | XMS_ITS | Encounter Summary ---
Author Organization [facility] Address [facility] [place] [address] Care Team Providers Care Roller Name Role Phone Reinier Arceo Primary Care Provider [phone] Encounter Details Date Type Department Care Team (Late st Contact Info) Description 03/03/2023 Telephone [place] [address] Courtney Sainz Social History Tobacco Use Types [...] * Telephone Encounter - Courtney Sainz - 03/03/2023 11:08 AM EDT LM with patients rehabilitation case coordinator Randa to call and schedule a follow up appointment documented in this encounter Plan of Treatment Upcoming Encounters Date Type Department Care Team (Late st Contact Info) Description 02/03/2024 10:00 AM EDT [place] [address] Austin Simon MD [facility] [place] [address] Lindy Box [address]N [facility] [place] [address] documented as of this encounter Visit Diagnoses Not on filedocumented in this encounter Care Teams Roller Relationship Specialty Start Date End Date Reinier Arceo PA [address] [facility] [place] [address] PCP - General Internal Medicine 01/18/23 documented as of this encounter
--- OUTSIDE RECORDS SUMMARY | 2024-01-19 15:29 | XMS_ITS | Encounter Summary ---
Author Organization Formerly [facility] [place] [address] Care Team Providers Care Civil Engineering Professor Name Role Phone Reinier Arceo Primary Care Provider [phone] Encounter Details Date Type Department Care Team (Late Contact Info) Description 06/10/2023 Telephone [place] [address] Ava Villegas Social History Tobacco Use Types Packs/Day Years Used Date Smoking Tobacco: Never Alcohol Use Standard Drinks/Week Comments Never 0 (1 standard drink = 0.6 oz pur e alcohol) [facility] Inpatient Questions Answer Date Recorded [...] 10:00 AM EDT [place] [address] Austin Simon MD [facility] [address] Lindy Box APRN [facility] [place] [address] documented as of this encounter Visit Diagnoses Not on filedocumented in this encounter Care Teams Civil Engineering Professor Relationship Specialty Start Date End Date Reinier Arceo PA [address] [place] [address] PCP - General Internal Medicine 01/18/23 documented as of this encounter
--- OUTSIDE RECORDS SUMMARY | 2024-01-19 15:29 | XMS_ITS | Encounter Summary ---
Author Organization [facility] [place] [address] Care Team Providers Care Buttonhole Tacker Name Role Phone Reinier Arceo Primary Care Provider [phone] Encounter Details Date Type Department Care Team (Latest Contact Info) Description 08/04/2023 Travel Social History Tobacco Use Types Packs/Day [...] 10:00 AM EDT Procedure visit Urology at [facility] [place] [address] Austin Simon MD [facility] [place] [address] Lindy Box APRN [facility] [place] [address] documented as of this encounter Visit Diagnoses Not on filedocumented in this encounter Care Teams Buttonhole Tacker Relationship Specialty Start Date End Date Reinier Arceo PA [address] [place] [address] PCP - General Internal Medicine 01/18/23 documented as of this encounter
--- OUTSIDE RECORDS SUMMARY | 2024-01-19 15:30 | XMS_ITS | Encounter Summary ---
[place] [address] Care Team Providers Care Signal Constructor Name Role Phone Reinier Arceo Primary Care Provider [phone] Reason for Referral * Consultation (Routine) - Closed Specialty Diagnoses / Procedures Referred By Contac t Referred To Contact Urology Diagnoses Acute kidney injury Mendel Luna MD [facility] [address] [facility] [place] [address] Referral ID Status Reason Start Date Expiration Date V isits Requested Visits Authorized [id number] Closed Consult, Test & Treat 01/26/2023 01/26/2024 1 1 * Home Health Care (Routine) - Closed Specialty Diagnoses / Procedures Referred By Contac t Referred To Contact Diagnoses Acute kidney injury Mendel Luna MD [facility] [place] [address] [facility] [place] [address] Referral ID Status Reason Start Date Expiration Date V isits Requested Visits Authorized [id number] Closed Consult, Test & Treat 01/26/2023 07/25/2023 999 999 Reason for Visit * Auth/Cert (Routine) Specialty Diagnoses / Procedures Referred By Contac t Referred To Contact Diagnoses Heart failure CHF w/ CLEM Procedures EMERGENCY [place] [address] [facility] Referral ID Status Reason Start Date Expiration Date Visits Re quested Visits Authorized [id number] 1 1 Encounter Details Date Type Department Care Team (Latest Contact Info) Description 01/18/2023 5:25 PM EDT - 01/27/2023 4:27 PM EDT Hospital Encounter Heart and Vascular Unit Level 3 [place] [id number] [place] [address] Chris Lim MD [facility] [place] [address] Mendel Luna MD [facility] [place] [address] Heart failure, unspecified HF chronicity, unspecified heart failure type; Acute kidney injury; Other polyneuropathy; Type 2 diabetes with nephropathy Discharge Disposition: Home with VNA Social History Tobacco Use Types Packs/Day Years [...] Sign Reading Time Taken Comments Blood Pressure 134/80 01/27/2023 12:17 PM EDT Pulse 68 01/27/2023 12:17 PM EDT Temperature 37 ??C (98.6 ??F) 01/27/2023 12: 17 PM EDT Respiratory Rate 19 01/27/2023 12:1 7 PM EDT Oxygen Saturation 92% 01/27/2023 12: 17 PM EDT Inhaled Oxygen Concentration - - Weight 102.6 kg (226 lb 3.1 oz) 01/27/2023 3:10 AM EDT Height 165.1 cm (5' 5) 01/18/2023 11:2 9 PM EDT Body Mass Index 37.64 01/18/2023 11:29 PM EDT documented in this encounter Discharge Summaries * Mendel Luna MD - 01/27/2023 2:23 PM EDT Inpatient - Discharge Summary Patient Name: Miguel Sanchez Patient Age: 67 y.o. Birthdate: 1955 Admit date: 01/18/2023 Discharge date and time: 01/26/2023 Attending Physician: Mendel Luna MD Code Status: Full Code Follow-up Recommendations for Providers: - New medications - Metoprolol succinate 25 mg q24 - tamsulosin 0.8 mg q24 - losartan 12.5 mg q24 - finasteride 5 mg q24 - Medications stopped - Carvedilol - Pt is being discharged w/o benedict catheter due to his preference. He was assessed by primary team and psychiatry who both determined that he has capacity. He will return to ED if he does not urinatein 24 hours. - Pt to be scheduled for follow up w/ nephrology for possible renal biopsy and further management of renal failure. - PCP contacted and follow up requested, they will contact pt w/ time - PCP please follow up BMP to monitor renal function Discharge Diagnoses (Hospital Problems) and Secondary Diagnoses (Chronic Problems): Active Hospital Problems Diagnosis Acute on chronic systolic ACC/AHA stage C congestive heart failure Schizophrenia Peripheral neuropathy Type 2 diabetes with nephropathy Acute kidney injury Resolved Hospital Problems No resolved problems to display. Procedures: Operations: Procedure(s): CARDIAC CATHETERIZATION Right Heart Pressures Resting: Syst Diast EDP a v m RA 13 11 8 RV 38 8 PA 28 27 25 PCW 16 17 18 Other Major Procedures: History of Presentation (per 01/18/2023 Admission H&P): Miguel Sanchez is a 67 y.o. male with PMH significant for HFrEF (last known EF 45% in 2020), diabetes, hypertension,and hyperlipidemia who presents from [facility] ED after being redirected from [facility] for one month of progressively worsening shortness of breath and associated chest pain occurring both at rest and on exertion. The patient reports that he has been having progressively worsening shortness of breath, chest pain, and generalized fatigue both at rest and on exertion over the past month. The patient reports thathe has been having worsening orthopnea with associated PND and nonproductive cough requiring him tosleep with 2 pillows to prop him up at night in order to breathe. He also states that he has been ex periencing episodic (1-2 episodes per day lasting <10 seconds), non-radiating, substernal/left-sided chest pain that is stabbing nature, and moderate in intensity without any clear precipitating factors. However, he reports that his chest pain is mildly alleviated with rest if it were to occur on exertion. The patient is unsure what has precipitated his progressively worsening symptoms of chest pain and shortness of breath and wonders if his neighbor across the deal in his apartment complex is poisoning him (reports some level of animosity between them). However, he denies any change in mood or audiovisual hallucinations. The patient otherwise reports having mild bilateral lower extremity edema and nausea with intermittent loose stools. However, he denies any fevers, chills, headaches, change in vision, palpitations, abdominal pain, vomiting, melena, hematochezia, dysuria, hematuria, change in urinary frequency, numbness, tingling, or loss of consciousness. Of note, he does not check his weight at home and is unsure of his home dry weight. The patient reports that since his symptoms were getting progressively worse he went to the [facility] urgent clinic in [place], [place] and was subsequently transferred to [facility] ED for further management. Upon initial presentation to [facility] ED: The patient was noted to be tachypneic with SPO2 in the low 90s on room air but was hemodynamicallystable (BP 150s/90s). On exam he was noted to have bilateral lower extremity edema quantified as a little. The patient's proBNP was found to be greater than 10,000. Other labs were notable for creatinine of 6.1 and BUN of 63 (last known baseline was September 2022 with creatinine of 1.5 and BUN of 19). Formal TTE was not obtained but bedside ultrasound was significant for hypokinesis with LVEF less than 45% based on Dr. Dykes's assessment. The patient was diuresed with 80 mg IV Lasix (home dose reportedly 40 mg PO) and transferred to [facility] for management of presumed acute on chronic HFrEF and CLEM. Upon direct admission to [facility]: The patient was noted to be afebrile and hemodynamically stable (BP 158/90, HR 71) and was saturating 95% on room air. CBC was significant for absence of leukocytosis and normocytic anemia (hemoglobin 10.1). CMP was significant for continued evidence of CLEM with creatinine 5.71, BUN 60, and EGFR 10. Initial high-sensitivity troponin was 78 pending recheck. proBNP was 11,818. Lactate was normal at1.6. ECG on admission did not show any acute ischemic changes. Bedside TTE was significant for globally reduced LV systolic function with estimated LVEF of ~35% with diffuse hypokinesis. CXR pending. Hospital Course: Miguel Sanchez was admitted to the Cardiology Service on 01/18/2023. The following acute and chronic medical issues were identified during this phase of their hospitalization, and managed as summarized below by problem: #Acute on chronic systolic HFrEF exacerbation (EF 29%) There was initial concern for NSTEMI on admission, but clinically symptoms from CHF with flat troponins were not suggestive of NSTEMI. ECG on arrival did not show any acute ischemic changes bedside TTE was significant for globally reduced LV systolic function with estimated LVEF of ~29% with diffuse hypokinesis. Patient received IV furosemide on admission and from 01/18-01/20, however, diuretics were d/c'd because patient was autodiuresing. Patient underwent RHC on 01/22 which demonstrated euvolemia correlating to his euvolemic physical exam. Patient was started on GDMT with metoprolol [id number] mg daily and losartan 25 mg daily. Patient was started on ASA 81 mg daily and atorvastatin 80 mgdaily. ASA was held on 01/23 in anticipation for possible kidney biopsy. #Stage III CLEM (last known baseline was September 2022 with creatinine of 1.5 and BUN of 19) Patient admitted with Cr of 5.71. Nephrology was consulted who believed cause of CLEM likely multifactorial. His renal imaging showed bilateral pelvicaliectasis and symptoms of incontinence suggest some degree of obstruction. Likely a degree of cardiorenal physiology at play as well. However, Cr was1.5 in September 2022 and urine studies were negative for microalbuminuria at that time. No prior UPC, u nclear when the nephrotic range proteinuria developed however prior A1cs not markedly elevated which points away from diabetic nephropathy. His DOROTEO is pending, SPEP preliminarily concerning for paraprotein. Patient may need a renal biopsy to clarify the underlying etiology depending on the results.Nephrology recommended holding diuretics and ASA. Nephrology started patient on cholecalciferol 5000 U daily for vitamin D deficiency. Urology was consulted and patient was started on tamsulin and finasteride and recommended maintaining Benedict catheter for 5-7 days followed by TOV. On 01/25 attemptedTOV but failed. Pt initially refused benedict placement saying he wanted to go home but eventually agreed. Had extensive conversation with pt regarding benedict education and arranging follow up w/ urologyfor TOV in 2-4. Plan was initially to discharge him with benedict but he adamantly refused. He expressed clear desires and understanding of the consequences of not having a benedict including infection, morris dder rupture, and most importantly progression of his renal disease which would could result in dialysis. He said that if he would return to ED if he hadn't urinated in 24 hours. He was assessed by psychiatry who determined that he does have capacity. Spoke with his case folder Randa Gonzalez prior to discharge who was updated about his hospital course and decision to leave. His case management team will contact him after discharge to check in and ensure that if he has not voided that he returns to the ED for further assessment. #Diabetes Held home metformin. Sensitive sliding scale and meal associated lispro. Glucose levels stable throughout admission. #History of hypertension Start losartan 12.5 mg daily #Hyperlipidemia Held home simvastatin 10 mg daily. Started atorvastatin 80 mg daily. #History of peripheral neuropathy Patient reported significant symptoms of peripheral neuropathy in lower extremities. Continue reduced dose gabapentin 100 mg BID in the context of CLEM. #Patient concern for unspecified poisoning Tox screen negative. Salicylates and acetaminophen level negative #Schizophrenia Continued home olanzapine Important Studies and Lab Data: ADMISSION LABS: DISCHARGE BASIC LABS Recent Labs 01/26/23 0311 01/25/23 0406 01/23/23 0253 WBC 8.4 8.2 8.1 HGB 10.2* 10.6* 10.4* HCT 29.8* 30.7* 30.7* PLATELET 161 170 182 Recent Labs 01/26/23 0311 01/25/23 0406 01/24/23 0256 NA 139 139 139 K 4.8 4.5 4.5 CL 105 103 104 CO2 18* 19* 21* BUN 77* 78* 80* CREATININE 4.91* 5.06* 5.46* MAGNESIUM 0.97 1.00 0.94 PHOS 4.6* 4.9* 5.0* No results for input(s): BILITOT, BILIDIR, AST, ALT, ALKPHOS in the last 168 hours. No results for input(s): INR, PTT in the last 168 hours. Microbiology: Pertinent radiology/diagnostic studies: Renal US 01/19/2023 1. Both kidneys are normal in size and parenchymal thickness but have mild collecting system dilatation. 2. A Benedict catheter is present in an otherwise empty and difficult to evaluate urinary bladder.. TTE 01/18/23 -Limited echocardiogram performed by overnight fellow to assess biventricular function. -The left ventricle is mildly dilated with normal wall thickness. The left ventricular systolic function is severely reduced with visually estimated ejection fraction of 25%. There is global hypokinesis. There is elevated left ventricular filling pressures. -The right ventricle appears normal in size with probably normal systolic function. Pulmonary artery hypertension could not be assessed due to inadequate tricuspid regurgitation jet. The estimated right atrial pressure is 3mmHg. -Normal biatrial size. -Doppler assessment of the aortic valve consistent with mild aortic stenosis although visually the valve does not appear stenotic. Recommend formal echocardiogram for proper assessment. -There is no prior echocardiogram for comparison. TTE 01/19/23 Interpretation Summary Left ventricle is mildly dilated with mildly [...] left ventricular systolic function has further decreased. Discharge Conditions/Prognosis: Upon discharge the pt is hemodynamically stable, fully ambulatory without requiring supplemental oxygen, afebrile and pain free controlled with stable oral regimen. Discharge to: home with VNA services Discharge Medications: Your Medications New Medications Dose Details cholecalciferol 1,000 unit tablet Commonly known as: Vitamin D3 Take 5 tablets by mouth daily. Start taking on: January 27, 2023 5,000 Units Quantity: 90 tablet Refills: 3 finasteride 5 mg tablet Commonly known as: Proscar Take 1 tablet by mouth daily. Start taking on: January 27, 2023 5 mg Quantity: 90 tablet Refills: 3 losartan 25 mg tablet Commonly known as: Cozaar Take 0.5 tablets by mouth daily. Start taking on: January 27, 2023 12.5 mg Quantity: 90 tablet Refills: 3 metoprolol succinate XL 25 mg ER 24 hr tablet Commonly known as: Toprol-XL Take 1 tablet by mouth daily. Start taking on: January 27, 2023 25 mg Quantity: 30 tablet Refills: 12 tamsulosin 0.4 mg capsule Commonly known as: Flomax Take 2 capsules by mouth daily. Start taking on: January 27, 2023 0.8 mg Quantity: 90 tablet Refills: 3 Continued medications, unchanged Dose Details atorvastatin 80 mg tablet Commonly known as: Lipitor Take 80 mg by mouth daily. 80 mg Refills: 0 furosemide 40 mg tablet Commonly known as: Lasix Take 40 mg by mouth daily. 40 mg Refills: 0 gabapentin 100 mg capsule Commonly known as: Neurontin Take 100 mg by mouth 3 times daily. 100 mg Refills: 0 glipiZIDE 10 mg tablet Commonly known as: Glucotrol Take 10 mg by mouth 2 times daily (before meals). 10 mg Refills: 0 Jardiance 25 mg tablet Take 25 mg by mouth daily. Generic drug: empagliflozin 25 mg Refills: 0 metFORMIN 500 mg tablet Commonly known as: Glucophage Take 500 mg by mouth 2 times daily (with meals). 500 mg Refills: 0 OLANZapine 7.5 mg tablet Commonly known as: ZyPREXA Take 15 mg by mouth nightly. 15 mg Refills: 0 pimozide 2 mg tablet Commonly known as: Orap Take 2 mg by mouth 2 times daily. 2 mg Refills: 0 semaglutide 7 mg tablet Commonly known as: Rybelsus Take 3 mg by mouth daily. 3 mg Refills: 0 triamcinolone 0.1 % Cream Commonly known as: Kenalog Apply topically 2 times daily. Refills: 0 STOPPED Medications carvediloL 12.5 mg tablet Commonly known as: Coreg hydrOXYzine 10 mg tablet Commonly known as: Atarax naproxen sodium 220 mg Capsule Commonly known as: ALEVE simvastatin 10 mg tablet Commonly known as: Zocor Updated Allergies/ADRs: No Known Allergies Instructions Given to Patient at Discharge: Patient Instructions Instructions on Discharge to Home Why you were hospitalized - You were hospitalized for shortness of breath and chest pain. We found that your creatinine, a measure of kidney function, was significantly elevated which is indicative of kidney failure. You were evaluated by nephrology and urology. We believe that part of your renal failure was due to an inability to urinate due to obstruction. Therefore, you are being discharged with a benedict catheter to relieve that obstruction. Your home visiting nurse will help you manage this. You will have a follow up with nephrology to continue managing your kidney function. Call your doctor or seek medical attention if you develop the following - chest pain, shortness of breath, fever, cough, weakness in an arm or leg Activity level - no restrictions Diet - no change in previous diet Driving - NO DRIVING with use of sedating drugs/medications (such as Ativan/lorazepam, oxycodone, trazodone, etc.) and/or feeling of passing out, lightheadedness, or dizziness Shower/Bath - permitted Wound Care - none Changes in Your Medications: New Medications: - Metoprolol succinate 25 mg daily - Tamsulosin 0.8 mg: take 2 tables of 0.4 mg tamsulosin daily - Losartan 12.5 mg: take one half tablet of 25 mg losartan daily - finasteride 5 mg daily Stop these medications: - STOP carvedilol Follow-up: Future Appointments Date Time Provider Department Center 01/28/2023 1:00 PM [facility] ROOM 4 [facility] Rad Your Inpatient Doctor: Mendel Luna MD Your Primary Care Provider: ELSIE Espinoza [phone] For questions regarding this document or issues relating to this hospitalization on the Medical Service, please contact your inpatient physician through the [facility] Warhead Maintenance Specialist . Issues afterhours and on weekends will be handled by the Hospitalist staff on-call. General Instructions None Future Appointments and Orders Future Appointments and Orders Future Appointments Provider Department Dept Phone 01/28/2023 1:00 PM [facility] US ROOM 4 Ultrasound at [facility] Arrive at: Marketing Operations Manager Area [phone] [address] bring someone to drive you home. Due to Covid concerns.you will be unable to bring anyone else to your appointment with you. NO cell phone usage is permitted in the ultrasound room. Future Orders Complete By Expires [employer] [EQ161 Custom] As directed Process Instructions: Scheduling Instructions: Comments: FWW to be delivered to patient room (367-A) Questions: Device Needed: WALKER (E0143) Patient Height (cm): 165.1 cm (5' 5) Patient Weight: 103 kg (227 lb) Diagnosis: Unsteady gait Referral to Home Health [REF34 Custom] As directed Process Instructions: If no progress note charted, please enter Clinical details in comments. Scheduling Instructions: Comments: Please evaluate Miguel Sanchez for admission to Home Health. [address] [address] Phone Number: [phone] (home) Date of : 1955 Inpatient DOCUMENTATION FOR VNA SERVICES (INCLUDING THOSE PATIENTS WITH MEDICARE COVERAGE REQUIRING HOME VNA SERVICES AND/OR HOSPICE SERVICES) PATIENT'S LOCATION: Miguel Sanchez [address] [address] [phone] (home) Cell: Telephone Information: Group Director Experience's Name: self In discussion with the attending physician, it is certified that this patient is under their care and that they, or a Nurse Practitioner, Clinical Nurse specialist or Physician Track Oiler who is working directly with them, had a face to face encounter that meets the physician face to face encounter requirements with this patient on 01/26/23 ( please enter DC date here) The encounter with the patient was in whole, or in part, for the following medical condition, whichis the primary reason for home health care services: heart failure with reduced ejection fraction In discussion with the provider, it is certified that, based on their findings, the following services are medically necessary for home health services. To provide the following care/treatments with the clinical findings supporting the need for services as follows: HOME CARE ORDERS: RN ORDERS: Assess vital signs, cardiopulmonary status, nutrition, hydration, elimination -Additional Orders: Monitor medication effectiveness and management and Reinforce education regarding health issues, manage benedict catheter HOME HEALTH CARE AGENCY: [facility] [address] [place] [address] Start of care: 24-48 hours after discharge In discussion with the attending physician, it is certified that the clinical findings support thatthis patient is homebound because absences from home require considerable and taxing effort due to:Unsteady gait, poor balance, requiring assistive devices and/or assistance of another. Please note that any additional orders needs or changes will need to be obtained from this patient's PCP: ELSIE Espinoza [address] / [facility] [address] . All VNA agencies which cover the area of patient's residence have been reviewed, either verbally or in writing, and patient/family have chosen the home health care agency noted. Questions: Disciplines Requested: Nursing Referral to Urology [DFX808 Custom] As directed Process Instructions: If no progress note charted, please enter Clinical details in comments. Scheduling Instructions: Questions: My question or request is: 67 yo M admitted 01/18-01/26 w/ renal failure due to obstruction, discharged w/ benedict. Provider Contact Information: ELSIE Espinoza [address] / [facility] [address] Discharge References/Attachments: Discharge References/Attachments None documented in this encounter Discharge Instructions * Patient Instructions* Randy Garcia MD - 01/26/2023 1:21 PM EDT Instructions on Discharge to Home Why you were hospitalized - You were hospitalized for shortness of breath and chest pain. We found that your creatinine, a measure of kidney function, was significantly elevated which is indicative of kidney failure. You were evaluated by nephrology and urology. We believe that part of your renal failure was due to an inability to urinate due to obstruction. Therefore, you are being discharged with a benedict catheter to relieve that obstruction. Your home visiting nurse will help you manage this. You will have a follow up with nephrology to continue managing your kidney function. Call your doctor or seek medical attention if you develop the following - chest pain, shortness of breath, fever, cough, weakness in an arm or leg Activity level - no restrictions Diet - no change in previous diet Driving - NO DRIVING with use of sedating drugs/medications (such as Ativan/lorazepam, oxycodone, trazodone, etc.) and/or feeling of passing out, lightheadedness, or dizziness Shower/Bath - permitted Wound Care - none Changes in Your Medications: New Medications: - Metoprolol succinate 25 mg daily - Tamsulosin 0.8 mg: take 2 tables of 0.4 mg tamsulosin daily - Losartan 12.5 mg: take one half tablet of 25 mg losartan daily - finasteride 5 mg daily Stop these medications: - STOP carvedilol Follow-up: Future Appointments Date Time Provider Department Center 01/28/2023 1:00 PM [facility] ROOM 4 [facility] Rad Your PCP office will contact you about scheduling follow up. Your Inpatient Doctor: Mendel Luna MD Your Primary Care Provider: ELSIE Espinoza [phone] For questions regarding this document or issues relating to this hospitalization on the Medical Service, please contact your inpatient physician through the [facility] Warhead Maintenance Specialist . Issues afterhours and on weekends will be handled by the Hospitalist staff on-call. * Attachments The following attachments cannot be sent through Care Everywhere. * Caregiver: Caring for an Indwelling Urinary Catheter: General Info (Urdu) documented in this encounter Medications at Time of Discharge Medication Sig Dispensed Refills Start Date End Date pimozide (ORAP) 2 mg Tablet Take 2 mg by mouth 2 times daily. triamcinolone (KENALOG) 0.1 % cream Apply topically 2 times daily. albuteroL 90 mcg/actuation HFA Aerosol Inhaler 4 times daily. 08/23/2019 04/28/2023 betamethasone dipropionate (Diprolene) 0.05 % Cream daily. 08/23/2019 04/28/2023 carvediloL (Coreg) 25 mg tablet Twice a day 08/23/2019 02/24/2023 ibuprofen (Advil) 200 mg tablet Q8H 09/18/2019 02/24/2023 indomethacin (Indocin) 50 mg capsule Twice a day 08/23/2019 02/24/2023 ketoconazole (Nizoral) 2 % Cream Twice a day 08/23/2019 02/24/2023 lisinopriL (Zestril) 10 mg tablet daily. 09/18/2019 02/25/2023 naproxen sodium (Anaprox) 220 mg tablet Q8H 09/18/201901/28 simvastatin (Zocor) 40 mg tablet daily. 08/23/2019 02/25/2023 OLANZapine (ZyPREXA) 7.5 mg tablet Take 15 mg by mouth nightly. 02/24/2023 furosemide (Lasix) 40 mg tablet Take 40 mg by mouth daily. 02/24/2023 empagliflozin (Jardiance) 25 mg tablet Take 25 mg by mouth daily. 04/28/2023 atorvastatin (Lipitor) 80 mg tablet Take 80 mg by mouth daily. 04/28/2023 glipiZIDE (Glucotrol) 10 mg tablet Take 10 mg by mouth 2 times daily (before meals). 04/28/2023 semaglutide (Rybelsus) 7 mg tablet Take 3 mg by mouth daily. 02/24/2023 metoprolol succinate XL (Toprol-XL) 25 mg ER 24 hr tablet Take 1 tablet by mouth daily. 30 tablet 12 01/27/2023 08/04/2023 finasteride (Proscar) 5 mg tablet Take 1 tablet by mouth daily. 90 tablet 3 01/27/2023 07/13/2023 tamsulosin (Flomax) 0.4 mg capsule Take 2 capsules by mouth daily. 90 tablet 3 01/27/2023 08/04/2023 losartan (Cozaar) 25 mg tablet Take 0.5 tablets by mouth daily. 90 tablet 3 01/27/2023 04/28/2023 cholecalciferol (Vitamin D3) 1,000 unit tablet Take 5 tablets by mouth daily. 90 tablet 3 01/27/2023 02/24/2023 metFORMIN (Glucophage) 500 mg tablet Take 500 mg by mouth 2 times daily (with meals). 02/24/2023 gabapentin (NEURONTIN) 100 mg capsule Take 100 mg by mouth 3 times daily. 08/04/2023 documented as of this encounter Progress Notes * Sixto Amato RN - 01/27/2023 3:44 PM EDT Discharge orders written, patient understands instructions and follow up visits, patient discharge to home with a ride from [facility]. * Tati Schultz - 01/27/2023 3:43 PM EDTSummary: Transportation Transportation for discharge was scheduled and confirmed through [facility]. [facility] will have a bull driver at the Main Entrance at 4:15p today to provide patient with transportation home. * Cmaille Shelley RD - 01/27/2023 12:42 PM EDT Nutrition Progress Note Miguel Sanchez is a 67 y.o. male with PMH significant for HFrEF (last known EF 45% in 2020), diabetes, hypertension, and hyperlipidemia who presents from [facility] ED after being redirected from [facility] urgent clinic for one month of progressively worsening shortness of breath and associated chest painoccurring both at rest and on exertion . Reason for intervention: Follow up Nutrition Recommendations: Spoke with Miguel briefly. He reports poor appetite and notes he did not have breakfast or lunch today. He also only ate dinner yesterday, a PBJ sandwich. Expressed my concern over his low intake and inquired about ONS. Miguel reports he plans to go home today. He has no follow-up questions r/t nutrition eduction provided earlier this week. Thanks, Camille Shelley, MS, RD, LD Clinical Nutrition * Marii Serrano - 01/27/2023 11:42 AM EDT Ervin Encounter Note Patient Name: Miguel Sanchez : [id number] MR#: [id number] Admit Date: 01/18/2023 5:25 PM Hospital Day 9 days Narrative: A follow up visit to patient for Spiritual support in a regular unit rounds. Assessment: Patient is lying in bed awake, alert and oriented. Patient says, he is going home today. Patient still expresses concern about going home with catheter on. Patient rather prefers going home without it while putting his trust in the Lord. Intervention and Outcome: I offered patient Pastoral presence, Empathetic listening, acknowledgement, validation, Spiritual/Emotional support and encouragement. I prayed for patient and blessed him. Patient expressed appreciation. Follow-up: As needed. Time in Direct Care: 15 Marii Serrano 01/27/2023 * Deonte Lugo MD - 01/27/2023 7:38 AM EDT Hypertension-Nephrology Inpatient Follow-up Miguel Sanchez [id number] 1955 ID: 67 y.o. old male seen for CLEM. Interval History: Discussed the danger of retention and risk for worsening renal function +/- an ascending infection if it were left untreated with Miguel today. I am unsure that he understood the risks of benedict removal if he were to choose that. Understandably frustrated that he is still here. The primary team is working on a safe dispo plan. Physical Examination: Last value 24 Hour Temperature Range Temp: [36.3 ??C (97.3 ??F)-36.5 ??C (97.7 ??F)] 12 Hour Heart Rate Range Heart Rate: [73-76] 24 Hour Blood Pressure Range BP: (121-140)/(69-92) Respiratory Rate Resp: 16 SpO2 SpO2: 94 % Body mass index is 37.64 kg/m??. General: Chronically ill appearing, not in distress, lying comfortably in the exam room. HEENT: EOM intact, sclera clear, mucous membranes moist. CV: S1 & S2 faint but audible I do not appreciate a murmur on exam. Resp: Breathing is comfortable on room air, I do not appreciate crackles. Abd: Soft, non-tender, non-distended. Ext: No edema in the lower extremities. Skin: No rashes or lesions on the exposed skin. Neuro: Alert & oriented, no focal deficits. Psych: Pleasant and calm, conversational attention is intact. tamsulosin 0.8 mg Oral Daily cholecalciferol 5,000 Units Oral Daily losartan 12.5 mg Oral Daily metoprolol succinate XL 25 mg Oral Daily hydrocortisone Topical (Top) BID finasteride 5 mg Oral Daily capsaicin Topical (Top) BID heparin (porcine) 7,500 Units Subcutaneous Q8H JAMAL gabapentin 100 mg Oral BID OLANZapine 15 mg Oral Nightly sodium chloride 0.9 % (flush) 5 mL Intravenous BID insulin lispro 0-8 Units Subcutaneous TID WC insulin lispro 1-4 Units Subcutaneous TID AC atorvastatin 80 mg Oral QPM No Known Allergies Lab Results Component Value Date CREATININE 4.74 (H) 01/27/2023 CREATININE 4.91 (H) 01/26/2023 CREATININE 5.06 (H) 01/25/2023 CREATININE 5.46 (H) 01/24/2023 CREATININE 5.47 (H) 01/23/2023 ESTGFR 13 (L) 01/27/2023 ESTGFR 12 (L) 01/26/2023 ESTGFR 12 (L) 01/25/2023 ESTGFR 11 (L) 01/24/2023 ESTGFR 11 (L) 01/23/2023 CO2 15 (L) 01/27/2023 CO2 18 (L) 01/26/2023 CO2 19 (L) 01/25/2023 CO2 21 (L) 01/24/2023 CO2 20 (L) 01/23/2023 NA 137 01/27/2023 NA 139 01/26/2023 NA 139 01/25/2023 NA 139 01/24/2023 NA 139 01/23/2023 K 4.8 01/27/2023 K 4.8 01/26/2023 K 4.5 01/25/2023 K 4.5 01/24/2023 K 4.4 01/23/2023 Lab Results Component Value Date UPROTCREAT 4.9 01/18/2023 ALBUMIN 4.2 01/18/2023 Lab Results Component Value Date HGB 10.6 (L) 01/27/2023 FERRITIN 478 (H) 01/20/2023 IRONSAT 30 01/20/2023 Lab Results Component Value Date CALCIUM 9.4 01/27/2023 CALCIUM 9.3 01/26/2023 CALCIUM 9.5 01/25/2023 PHOS 5.0 (H) 01/27/2023 PHOS 4.6 (H) 01/26/2023 PHOS 4.9 (H) 01/25/2023 PTH 401 (H) 01/20/2023 25OHVITD 9 (L) 01/20/2023 HA1C 5.7 (H) 01/18/2023 Lab Results Component Value Date C3 126 01/22/2023 C4 31 01/20/2023 Renal U/S 01/19 shows bilateral pelvicaliectasis concerning for hydro (this is with benedict in place).Renal size is normal bilaterally with normal appearing parenchyma/cortex. TTE 01/19 shows reduced EF of 29%, mild to moderate mitral regurgitation, and a small pericardial effusion adjacent to the right atrium. EF in 2019 was 45% HIV and hepatitis serologies negative. SPEP shows possible paraprotein however DOROTEO negative. [place] & Lambda light chains elevated however ratio normal. Urine sediment bland 01/25. There are few non-dysmorphic RBCs which is not surprising with the foleyin place. Few renal tubular epithelial cells as well. Repeat renal U/S 01/25 prior to benedict removal shows persistent pelviocaliectasis on the left side. Summary: Miguel Sanchez is 67 y.o. yo male requiring inpatient consultation for CLEM. Medical comorbidities include HLD, HTN, T2DM, and HFrEF (EF 29%). Pt is admitted in the setting of heart failure exacerbation. Cause of CLEM likely multifactorial. More than likely some degree of diabetic nephropathy given the longstanding history of diabetes. Retention has also played a major role and he had recurrence with removal of the benedict catheter on 01/25. Fortunately his renal function is again slightly better todaywhich pushes us away from an inpatient biopsy. He should however have close follow-up with nephrology and urology and a ride to and from appointments is critical. # CLEM (Cr 1.5 in September 2022) # Nephrotic Range Proteinuria # Obstructive Nephropathy # HFrEF # Cardiorenal physiology # Anemia # Metabolic Acidosis - I note that he will likely need maintenance diuretics in the setting of his HFrEF too soon to gauge. Close followup with primary care will be important for this. - Okay to resume baby ASA at this time if indicated. - Agree with tamsulosin and finasteride. Would keep the benedict in place if he's not able to I & O cath. He will need urology follow-up for more definitive management. - Continue cholecalciferol 5000 U daily - Please start sodium bicarbonate 1300 mg TID This case was discussed with staff speech professor Dr. Crawford and the primary team. Please contact me at phone: [phone] or pager: [phone] with any questions. Deonte Lugo MD Nephrology & Hypertension Fellow Associated attestation - Yolis Crawford MD - 01/28/2023 8:28 AM EDT I have seen and examined Mr Sanchez, reviewed the relevant clinical and laboratory data and images, and discussed the case with Dr Lugo. His note accurately reflects our joint assessment and recommendations. Thank you for this consult. * Morena Lopez RN - 01/26/2023 7:32 PM EDT This morning Miguel expresses feeling very frustrated and wanting to go home. Cardiology team at bedside to assess and speak with pt. Bladder scan completed. Benedict catheter inserted after explaining risks of full bladder to pt. Pt expresses wanting to go home and feeling overwhelmed. This afternoon catheter education provided. Pt states I can't manage this at home but demonstrates some parts of the instructions he was provided. Education will need to be reinforced tonight and tomorrow AM. Pt demonstrates unclamping and clamping the catheter independently. Does not perform any teach back regarding catheter safety otherwise. Vitals stable on RA. Pt denies cp/sob/n/v. Call [facility]br[facility] in use. Actively monitoring. * Marii Serrano - 01/26/2023 3:59 PM EDT Power Generation Plant Operator Encounter Note Patient Name: Miguel Sanchez : [id number] MR#: [id number] Admit Date: 01/18/2023 5:25 PM Hospital Day 8 days Narrative: Patient is lying in bed, awake, alert and oriented. Patient is not feeling good at the time of thisvisit. Patient is being overwhelmed by the news that he will be going home with catheter and bag. Patient is concerned due to the fact that he does not know how to handle it. Patient says, they will instruct him on how to take care of it but patient prefers going home without it. Patient says, this is due to the fact that he cannot pee on his own due to kidney damage. Assessment: I offered patient Pastoral presence, Empathetic listening, acknowledgement, validation, Spiritual/Emotional support and encouragement. I assist to explain to patient the necessity of having the catheter and have the urine out than having urine in his body which will cause more harm and damage. I helped talked him down. Patient feels more peaceful and put up a bit smile when I gave different examples. Patient accepts prayer and blessing. Intervention and Outcome: I offered patient Pastoral presence, Empathetic listening, Spiritual/Emotional support and encouragement. I prayed for patient and blessed him. Patient expressed appreciation. Follow-up: If patient doesn't go home tomorrow. Time in Direct Care: 20 Marii Serrano 01/26/2023 * Kendy Montes MD - 01/26/2023 2:47 PM EDT Images from the original note were not included. Cardiology Progress Note Patient info: Name: Miguel Sanchez : 1955 PCP: ELSIE Espinoza PCP phone number: [phone] Date of Admission: 01/18/2023 ( Hospital Day 8 days ) Attending:Mendel Luna MD ID: Miguel Sanchez is a 67 y.o. male with PMH significant for HFrEF (last known EF 45% in 2019), diabetes, hypertension, and hyperlipidemia who presents from [facility] ED after being redirected from [facility] urgent clinic for one month of progressively worsening shortness of breath and associated chest pain occurring both at rest and on exertion with concern for HFrEF exacerbation and CLEM. Active Problems: Active Hospital Problems Diagnosis Acute on chronic systolic ACC/AHA stage C congestive heart failure Schizophrenia Peripheral neuropathy Type 2 diabetes with nephropathy Acute kidney injury Resolved Hospital Problems No resolved problems to display. 24 Hour and Subjective: Yesterday: - Euvolemic on RHC will plan for dispo in next few days. Will need home health services set up. Holding ASA in case nephro wants to do a renal biopsy inpatient (they want it held for 7 days). Holdingdiuresis. D/c benedict. Repeat renal U/S Overnight: - Benedict removed. Patient had no urine output. Bladder scan showed retaining 700ml. Patient refused benedict. This Morning: - Today patient denies any chest pain or SOB. Patient would like to know if he can go home today todeal with his financial affairs and check on his apartment. Patient refusing to put the benedict catheter back in. Vitals Last value Range last 24 hrs Temperature Temp: 36.5 ??C (97.7 ??F) Temp: [36.4 ??C (97.5 ??F)-36.8 ??C (98.2 ??F)] Heart Rate Heart Rate: 75 Heart Rate: [67-79] Blood Pressure BP: 121/69 BP: (121-142)/(69-93) Art Line BP BP (Arterial Line): -- MAP (NBP): [85 mmHg-104 mmHg] Respiratory Rate Resp: 16 Resp: [16-18] SpO2 SpO2: 98 % SpO2: [97 %-99 %] Oxygen Delivery Oxygen Therapy O2 Device: None (Room air) Reason for Oxygen: Patient currently on room air Objective: Intake/Output Summary (Last 24 hours) at 01/26/2023 1447 Last data filed at 01/26/2023 1212 Gross per 24 hour Intake 725 ml Output 950 ml Net -225 ml Patient Vitals for the past 168 hrs: Weight 01/26/23 0600 103.1 kg (227 lb 4.8 oz) 01/24/23 0637 103 kg (227 lb) 01/23/23 0359 104.2 kg (229 lb 11.5 oz) 01/22/23 0408 103.1 kg (227 lb 3.2 oz) 01/21/23 0306 108.1 kg (238 lb 6.4 oz) 01/20/23 0345 108.5 kg (239 lb 4.8 oz) Admit wt: 109.41 kg Physical Exam: Gen: Elderly male lying in bed in NAD; alert, oriented, conversant HEENT: Anicteric, EOMI intact CV: RRR, no murmurs/rubs/gallops, JVP unable to assess due to body habitus Resp: CTAB, no wheezes/crackles Abd: Abdomen soft, NDNT Ext: 2+ distal pulses, no LE edema Lines/Drains/Airways Lines: Peripheral IV Line - Single Lumen 01/18/23 1900 median cubital vein (antecubital fossa), right 20 gauge (Active) Indication/Daily Review of Necessity fluid therapy intermittent;medication therapy intermittent 01/19/23 2100 Securement catheter stabilization device, secured with 01/19/23 2100 Patency/Maintenance flushed without difficulty;alcohol impregnated cap applied 01/19/23 2100 Phlebitis 0-->no symptoms 01/20/23 0354 Infiltration 0-->no symptoms 01/20/23 0354 Labs: Recent Labs 01/26/23 0311 01/25/23 0406 01/23/23 0253 01/22/23 0242 01/21/23 0242 WBC 8.4 8.2 8.1 8.3 8.1 HGB 10.2* 10.6* 10.4* 10.3* 11.1* HCT 29.8* 30.7* 30.7* 30.8* 32.4* PLATELET 161 170 182 183 202 MCV 91.7 90.8 90.0 90.3 90.3 Recent Labs 01/26/23 0311 01/25/23 0406 01/24/23 0256 01/23/23 0253 01/22/23 0242 NA 139 139 139 139 138 CL 105 103 104 105 104 CO2 18* 19* 21* 20* 20* K 4.8 4.5 4.5 4.4 4.2 MAGNESIUM 0.97 1.00 0.94 0.96 0.97 PHOS 4.6* 4.9* 5.0* 5.8* 5.8* CALCIUM 9.3 9.5 9.3 9.2 9.2 BUN 77* 78* 80* 81* 79* CREATININE 4.91* 5.06* 5.46* 5.47* 5.86* LFTs No results for input(s): PROT, ALBUMIN, AST, ALT, ALKPHOS, BILITOT, BILIDIR in the last 168 hours. Coags No results for input(s): INR, PT, PTT, FIBRINOGEN, DDIMER in the last 168 hours. Invalid input(s): THROMBIN TIME Cardiac Enzymes No results for input(s): CK, TROPONINT, PROBNP in the last 168 hours. Endocrine Recent Labs 01/18/23 2216 TSH 2.03 Recent Labs 01/26/23 1142 01/26/23 0751 01/25/23 2124 01/25/23 1646 01/25/23 1120 01/25/23 0744 01/24/23 2212 01/24/23 1641 01/24/23 1210 01/24/23 0751 01/23/23 2116 01/23/23 1513 POCGLU 175 137 181 153 182 155 175 157 177 175 150 246* Heme No results for input(s): LDH, HAPTOGLOBIN, URICACID in the last 168 hours. ABG (Arterial Blood Gas) No results found for: PHART, PO2ART, NKR0CXE, AIR4EZZ Microbiology: Microbiology Results (Last 30 days) Procedure Component Value Units Date/Time Urine culture [[id number]] Collected: 01/18/232212 Lab Status: Final result Specimen: Indwelling Catheter Urine Updated: 01/19/231842 Urine Culture No growth (Less than 1,000 cfu/ml). Imaging: Results for orders placed or performed during the hospital encounter of 01/18/23 US Retroperitoneal Complete (Exam End: 01/19/2023 8:30 AM) Impression 1. Both kidneys are normal in size and parenchymal thickness but have mild collecting system dilatation. 2. A Benedict catheter is present in an otherwise empty and difficult to evaluate urinary bladder.. Electronically signed by: Jimmie العراقي MD, [facility] ([phone]), at 01/19/2023 8:39 AM Thank you for letting us participate in the care of this patient. If you are a health care provider and have any questions regarding this report, please contact the number above. For patients who have questions, please contact the health rn primary care that requested your imaging first. Jimmie العراقي, Staff Physician Electronically Signed Final Report 01/19/2023 08:47 am US Retroperitoneal Complete (Exam End: 01/25/2023 3:50 PM) Impression 1. No significant interval change in mild right pelvicaliectasis. 2. No left-sided collecting system dilatation. 3. Normal bilateral renal cortical thickness and corticomedullary differentiation. 4. Bladder not distended for evaluation, Benedict catheter in place. Electronically signed by: Elsie Garza MD, [facility] ([phone]), at 01/25/2023 4:02 PM Thank you for letting us participate in the care of this patient. If you are a health care provider and have any questions regarding this report, please contact the number above. For patients who have questions, please contact the health rn primary care that requested your imaging first. Elsie Garza, E Drawbridge Operator Electronically Signed Final Report 01/25/2023 04:10 pm TTE 01/19/23: Interpretation Summary Left ventricle is mildly dilated with mildly [...] left ventricular systolic function has further decreased. Inpatient Medications Scheduled Meds: [START ON 01/27/2023] tamsulosin 0.8 mg Oral Daily cholecalciferol 5,000 Units Oral Daily losartan 12.5 mg Oral Daily metoprolol succinate XL 25 mg Oral Daily hydrocortisone Topical (Top) BID finasteride 5 mg Oral Daily capsaicin Topical (Top) BID heparin (porcine) 7,500 Units Subcutaneous Q8H JAMAL gabapentin 100 mg Oral BID OLANZapine 15 mg Oral Nightly sodium chloride 0.9 % (flush) 5 mL Intravenous BID insulin lispro 0-8 Units Subcutaneous TID WC insulin lispro 1-4 Units Subcutaneous TID AC atorvastatin 80 mg Oral QPM Continuous Infusions: PRN Meds:.acetaminophen, sodium chloride 0.9 % (flush), lidocaine, nitroGLYcerin, glucose 40% oral geL OR dextrose 10% OR glucagon Outpatient Medications Current Outpatient Medications Medication Instructions atorvastatin (LIPITOR) 80 mg, Oral, DAILY carvediloL (COREG) 25 mg, Oral, 2 TIMES DAILY WITH MEALS [START ON 01/27/2023] cholecalciferol (VITAMIN D3) 5,000 Units, Oral, DAILY empagliflozin (JARDIANCE) 25 mg, Oral, DAILY [START ON 01/27/2023] finasteride (PROSCAR) 5 mg, Oral, DAILY furosemide (LASIX) 40 mg, Oral, DAILY gabapentin (NEURONTIN) 100 mg, 3 TIMES DAILY glipiZIDE (GLUCOTROL) 10 mg, Oral, 2 TIMES DAILY BEFORE MEALS [START ON 01/27/2023] losartan (COZAAR) 12.5 mg, Oral, DAILY metFORMIN (GLUCOPHAGE) 500 mg, Oral, 2 TIMES DAILY WITH MEALS [START ON 01/27/2023] metoprolol succinate XL (TOPROL-XL) 25 mg, Oral, DAILY naproxen sodium 220 mg Cap Take by mouth. OLANZapine (ZYPREXA) 15 mg, Oral, NIGHTLY pimozide (ORAP) 2 mg, Oral, 2 TIMES DAILY semaglutide (RYBELSUS) 3 mg, Oral, DAILY simvastatin (ZOCOR) 10 mg, NIGHTLY [START ON 01/27/2023] tamsulosin (FLOMAX) 0.8 mg, Oral, DAILY triamcinolone (KENALOG) 0.1 % cream 2 TIMES DAILY Assessment & Plan: Miguel Sanchez is a 67 y.o. male with PMH significant for HFrEF (last known EF 45% in 2020), diabetes, hypertension, and hyperlipidemia who presents from [facility] ED after being redirected from [facility] urgent clinic for one month of progressively worsening shortness of breath and associated chest painoccurring both at rest and on exertion with concern for acute on chronic HFrEF exacerbation, profound CLEM. Creatinine improving today with RHC yesterday demonstrating euvolemia, correlating to his euvolemicphysical exam. Weight is up 2 lbs today, can consider restarting diuresis although he seems to be autodiuresing adequately. Per nephrology, would benefit from a kidney biopsy to elicit the cause of his severe CLEM, as it seems less likely cardiorenal given his RHC results. He will need home servicesupon discharge so will plan to arrange for that, and likely kidney biopsy as an outpatient if he remains stable for dc this week. 01/26/23 Patient wanting to go home today. Discussed need for catheter with patient and he eventually agreedto have a bladder scan which showed 700mL retention. Benedict catheter was placed. At patient request,arranged discharge for patient including home health services and benedict education. Urology and nephrology outpatient f/u arranged. Patient later decided he would like to stay in the hospital because he is not comfortable managing his benedict catheter at home.. Nephrology no longer planning to do renal biopsy inpatient. Will have benedict teaching sessions tonight and tomorrow morning for possible d/c tomorrow. #Acute on chronic systolic HFrEF exacerbation (EF 29%) RHC - euvolemia GDMT Continue metoprolol succinate 25 mg daily Continue losartan 25 mg daily Diuresis Hold diuresis; auto-diuresing ~1L/day Consider resuming ASA 81 mg daily Atorvastatin 80 mg daily Nitroglycerin 0.4mg PRN for chest pain Electrolyte repletion as needed K > 4, Mg > 1 Telemetry #Stage III CLEM (last known baseline was September 2022 with creatinine of 1.5 and BUN of 19) #Likely cardiorenal syndrome #Consider obstructive uropathy #Consider diabetic nephropathy Monitor urine output closely Benedict Nephrology following Agree with losartan 25 mg daily Hold diuresis Considering renal biopsy either inpatient or outpatient pending renal function Aim for net even I/O Renal U/S 01/19 shows bilateral pelvicaliectasis concerning for hydro (this is with benedict in place).Renal size is normal bilaterally with normal appearing parenchyma/cortex. Nephrotic range proteinuria Iron studies- Iron 68, TIBC 229, Ferritin 478 Vitamin D/PTH levels - PTH 40, Vit D 9 Urology consulted - will schedule OP f/u 2-4 weeks after discharge Repeat renal U/S in a couple days to confirm resolution of hydronephrosis Continue finasteride and tamsulosin #Diabetes Holding home metformin Sensitive sliding scale and meal associated lispro #History of hypertension Continue losartan 25 mg daily #Hyperlipidemia Holding home simvastatin 10 mg daily Continue atorvastatin 80 mg daily #History of peripheral neuropathy Continue reduced dose gabapentin 100 mg BID in the context of CLEM #Patient concern for unspecified poisoning Tox screen negative Salicylates and acetaminophen level negative #Schizophrenia - Continue home olanzapine #Housekeeping: DVT PPx: Heparin GI PPx: Diet: Daily Healthy Menu Choices/Cardiac diet ([employer]-Diet) Lines: Peripheral IV Line - Single Lumen 01/18/23 1900 median cubital vein (antecubital fossa), right 20 gauge (Active) Number of days: 7 Code status: FULL CODE Kendy Montes MD Internal Medicine, PGY-1 Cardiology M1-S2, #[id number] 01/26/2023, 2:47 PM Associated attestation - Mendel Luna MD - 01/26/2023 9:46 PM EDT Cardiology Attending Addendum Active Hospital Problems Diagnosis Acute on chronic systolic ACC/AHA stage C congestive heart failure Acute kidney injury Schizophrenia Peripheral neuropathy Type 2 diabetes with nephropathy Obstructive uropathy Resolved Hospital Problems No resolved problems to display. I have interviewed and examined the patient, reviewed the available data, and have discussed my findings, assessment and plan with the patient and the team on rounds today. I agree with Dr. Montes's note as below which reflects our discussion. * Melissa Yousif MSW - 01/26/2023 2:43 PM EDT [employer] received a consult to support patient regarding concern of not getting his rent paid on time, which is typically due on the 1st of every month. P[employer] SUPER[employer]OR called patient's property management company, [employer], and spoke to one of the hotel receptionist's, Meri, who stated they have a crow period forpaying rent late and are flexible with this kind of stuff. Meri also mentioned patient had spoken with one of her colleagues recently and asked if they could drive down to the hospital to grabthe check. P[employer] SUPERVISOR checked with patient to see if he has the check, to which he responded no. Patient to be discharged tomorrow. * Deonte Lugo MD - 01/26/2023 7:51 AM EDT Hypertension-Nephrology Inpatient Follow-up Miguel Sanchez [id number] 1955 ID: 67 y.o. old male seen for CLEM. Interval History: Benedict pulled last night however retained 700cc in his bladder when U/S was performed this morning. He is resistant to catheter replacement. His Is and Os appears even yesterday but this does not account for the urine that he was retaining so he was probably somewhat negative again. He is understandably worried about getting home and paying his bills etc feels he needs to get out of the hospital as soon as possible. Physical Examination: Last value 24 Hour Temperature Range Temp: [36.4 ??C (97.5 ??F)-36.8 ??C (98.2 ??F)] 12 Hour Heart Rate Range Heart Rate: [73-79] 24 Hour Blood Pressure Range BP: (106-142)/(64-89) Respiratory Rate Resp: 16 SpO2 SpO2: 98 % Body mass index is 37.82 kg/m??. General: Chronically ill appearing, not in distress, lying comfortably in the exam room. HEENT: EOM intact, sclera clear, mucous membranes moist. CV: S1 & S2 faint but audible I do not appreciate a murmur on exam. Resp: Breathing is comfortable on room air, I do not appreciate crackles. Abd: Soft, non-tender, non-distended. Ext: No edema in the lower extremities. Skin: No rashes or lesions on the exposed skin. Neuro: Alert & oriented, no focal deficits. Psych: Pleasant and calm, conversational attention is intact. cholecalciferol 5,000 Units Oral Daily losartan 12.5 mg Oral Daily metoprolol succinate XL 25 mg Oral Daily hydrocortisone Topical (Top) BID finasteride 5 mg Oral Daily tamsulosin 0.4 mg Oral Daily capsaicin Topical (Top) BID heparin (porcine) 7,500 Units Subcutaneous Q8H JAMAL gabapentin 100 mg Oral BID OLANZapine 15 mg Oral Nightly sodium chloride 0.9 % (flush) 5 mL Intravenous BID insulin lispro 0-8 Units Subcutaneous TID WC insulin lispro 1-4 Units Subcutaneous TID AC atorvastatin 80 mg Oral QPM No Known Allergies Lab Results Component Value Date CREATININE 4.91 (H) 01/26/2023 CREATININE 5.06 (H) 01/25/2023 CREATININE 5.46 (H) 01/24/2023 CREATININE 5.47 (H) 01/23/2023 CREATININE 5.86 (H) 01/22/2023 ESTGFR 12 (L) 01/26/2023 ESTGFR 12 (L) 01/25/2023 ESTGFR 11 (L) 01/24/2023 ESTGFR 11 (L) 01/23/2023 ESTGFR 10 (L) 01/22/2023 CO2 18 (L) 01/26/2023 CO2 19 (L) 01/25/2023 CO2 21 (L) 01/24/2023 CO2 20 (L) 01/23/2023 CO2 20 (L) 01/22/2023 NA 139 01/26/2023 NA 139 01/25/2023 NA 139 01/24/2023 NA 139 01/23/2023 NA 138 01/22/2023 K 4.8 01/26/2023 K 4.5 01/25/2023 K 4.5 01/24/2023 K 4.4 01/23/2023 K 4.2 01/22/2023 Lab Results Component Value Date UPROTCREAT 4.9 01/18/2023 ALBUMIN 4.2 01/18/2023 Lab Results Component Value Date HGB 10.2 (L) 01/26/2023 FERRITIN 478 (H) 01/20/2023 IRONSAT 30 01/20/2023 Lab Results Component Value Date CALCIUM 9.3 01/26/2023 CALCIUM 9.5 01/25/2023 CALCIUM 9.3 01/24/2023 PHOS 4.6 (H) 01/26/2023 PHOS 4.9 (H) 01/25/2023 PHOS 5.0 (H) 01/24/2023 PTH 401 (H) 01/20/2023 25OHVITD 9 (L) 01/20/2023 HA1C 5.7 (H) 01/18/2023 Lab Results Component Value Date C3 126 01/22/2023 C4 31 01/20/2023 Renal U/S 01/19 shows bilateral pelvicaliectasis concerning for hydro (this is with benedict in place).Renal size is normal bilaterally with normal appearing parenchyma/cortex. TTE 01/19 shows reduced EF of 29%, mild to moderate mitral regurgitation, and a small pericardial effusion adjacent to the right atrium. EF in 2019 was 45% HIV and hepatitis serologies negative. SPEP shows possible paraprotein however DOROTEO negative. [place] & Lambda light chains elevated however ratio normal. Urine sediment bland 01/25. There are few non-dysmorphic RBCs which is not surprising with the foleyin place. Few renal tubular epithelial cells as well. Repeat renal U/S 01/25 prior to benedict removal shows persistent pelviocaliectasis on the left side. Summary: Miguel Sanchez is 67 y.o. yo male requiring inpatient consultation for CLEM. Medical comorbidities include HLD, HTN, T2DM, and HFrEF (EF 29%). Pt is admitted in the setting of heart failure exacerbation. Cause of CLEM likely multifactorial. More than likely some degree of diabetic nephropathy given the longstanding history of diabetes. Retention has also played a major role and he had recurrence with removal of the benedict catheter on 01/25. Fortunately his renal function is again slightly better todaywhich pushes us away from an inpatient biopsy. He should however have close follow-up with nephrology and urology and a ride to and from appointments is critical. # CLEM (Cr 1.5 in September 2022) # Nephrotic Range Proteinuria # Obstructive Nephropathy # HFrEF # Cardiorenal physiology # Anemia - I note that he will likely need maintenance diuretics in the setting of his HFrEF but with current Is and Os difficult to gauge what he will require. Ideally we could sort this out prior to discharge. If not able, it's reasonable to restart his home furosemide with plan for very close follow-up with PCP & labs. - Okay to resume baby ASA at this time if indicated. - Agree with tamsulosin and finasteride. Would keep the benedict in place if he's not able to I & O cath. He will need urology follow-up for more definitive management. - Continue cholecalciferol 5000 U daily This case was discussed with staff speech professor Dr. Crawford and the primary team. Please contact me at phone: [phone] or pager: [phone] with any questions. Deonte Lugo MD Nephrology & Hypertension Fellow Associated attestation - Yolis Crawford MD - 01/27/2023 7:47 AM EDT I have seen and examined Mr Sanchez, reviewed the relevant clinical and laboratory data and images, and discussed the case with Dr Lugo. His note accurately reflects our joint assessment and recommendations. Thank you for this consult. We will continue to follow. * Morena Lopez RN - 01/25/2023 6:12 PM EDT OUTCOME EVALUATION NOTE: OUTCOME SUMMARY: Patient is A&Ox4, SR with AVB on tele. Denies cp/sob/n/v. Vitals stable on RA. Off the floor for ultrasound, back in stable condition. Benedict catheter patent. Catheter d/marina this evening per MD order. Pt DTV @23:45. Call mcbride in use. Actively monitoring. PLAN MOVING FORWARD: Voiding trial. D/C planning. INDIVIDUALIZED FALL PREVENTION INTERVENTIONS: Patient-specific fall risk factors per assessment: [current deficits]: Unfamiliar hospital environment, tele leads, IV sites, SpO2 Assistance [level of assistance required for transfers and ambulation]: SBA with walker Supervision [direct monitoring required during toileting and ADLs]: Purposeful hourly nursing rounding, call mcbride in use Surveillance [continuous indirect monitoring]: Telemetry, SpO2 Patient-specific fall prevention interventions for sensory deficits provided, if applicable: [X] N/A CPG GOAL OUTCOME EVALUATION: Plan progressing. * Deonte Lugo MD - 01/25/2023 7:41 AM EDT Hypertension-Nephrology Inpatient Follow-up Miguel Sanchez [id number] 1955 ID: 67 y.o. old male seen for CLEM. Interval History: Diuretics held again yesterday and he continues to auto diurese. He is concerned about getting hometo pay bills etc. His Cr has shown slight improvement again over the past 24 hours. Primary team isconsidering discharge home in the coming days. Physical Examination: Last value 24 Hour Temperature Range Temp: [36.5 ??C (97.7 ??F)-37 ??C (98.6 ??F)] 12 Hour Heart Rate Range Heart Rate: [68] 24 Hour Blood Pressure Range BP: (129-145)/(73-80) Respiratory Rate Resp: 16 SpO2 SpO2: 98 % Body mass index is 37.77 kg/m??. General: Chronically ill appearing, not in distress, lying comfortably in the exam room. HEENT: EOM intact, sclera clear, mucous membranes moist. CV: S1 & S2 faint but audible I do not appreciate a murmur on exam. Resp: Breathing is comfortable on room air, I do not appreciate crackles. Abd: Soft, non-tender, non-distended. Ext: No edema in the lower extremities. Skin: No rashes or lesions on the exposed skin. Neuro: Alert & oriented, no focal deficits. Psych: Pleasant and calm, conversational attention is intact. cholecalciferol 5,000 Units Oral Daily losartan 12.5 mg Oral Daily metoprolol succinate XL 25 mg Oral Daily hydrocortisone Topical (Top) BID finasteride 5 mg Oral Daily tamsulosin 0.4 mg Oral Daily capsaicin Topical (Top) BID heparin (porcine) 7,500 Units Subcutaneous Q8H JAMAL gabapentin 100 mg Oral BID OLANZapine 15 mg Oral Nightly sodium chloride 0.9 % (flush) 5 mL Intravenous BID insulin lispro 0-8 Units Subcutaneous TID WC insulin lispro 1-4 Units Subcutaneous TID AC atorvastatin 80 mg Oral QPM No Known Allergies Lab Results Component Value Date CREATININE 5.06 (H) 01/25/2023 CREATININE 5.46 (H) 01/24/2023 CREATININE 5.47 (H) 01/23/2023 CREATININE 5.86 (H) 01/22/2023 CREATININE 5.70 (H) 01/21/2023 ESTGFR 12 (L) 01/25/2023 ESTGFR 11 (L) 01/24/2023 ESTGFR 11 (L) 01/23/2023 ESTGFR 10 (L) 01/22/2023 ESTGFR 10 (L) 01/21/2023 CO2 19 (L) 01/25/2023 CO2 21 (L) 01/24/2023 CO2 20 (L) 01/23/2023 CO2 20 (L) 01/22/2023 CO2 20 (L) 01/21/2023 NA 139 01/25/2023 NA 139 01/24/2023 NA 139 01/23/2023 NA 138 01/22/2023 NA 140 01/21/2023 K 4.5 01/25/2023 K 4.5 01/24/2023 K 4.4 01/23/2023 K 4.2 01/22/2023 K 4.2 01/21/2023 Lab Results Component Value Date UPROTCREAT 4.9 01/18/2023 ALBUMIN 4.2 01/18/2023 Lab Results Component Value Date HGB 10.6 (L) 01/25/2023 FERRITIN 478 (H) 01/20/2023 IRONSAT 30 01/20/2023 Lab Results Component Value Date CALCIUM 9.5 01/25/2023 CALCIUM 9.3 01/24/2023 CALCIUM 9.2 01/23/2023 PHOS 4.9 (H) 01/25/2023 PHOS 5.0 (H) 01/24/2023 PHOS 5.8 (H) 01/23/2023 PTH 401 (H) 01/20/2023 25OHVITD 9 (L) 01/20/2023 HA1C 5.7 (H) 01/18/2023 Lab Results Component Value Date C3 126 01/22/2023 C4 31 01/20/2023 Renal U/S 01/19 shows bilateral pelvicaliectasis concerning for hydro (this is with benedict in place).Renal size is normal bilaterally with normal appearing parenchyma/cortex. TTE 01/19 shows reduced EF of 29%, mild to moderate mitral regurgitation, and a small pericardial effusion adjacent to the right atrium. EF in 2019 was 45% HIV and hepatitis serologies negative. SPEP shows possible paraprotein however DOROTEO negative. [place] & Lambda light chains elevated however ratio normal. Urine sediment bland 01/25. There are few non-dysmorphic RBCs which is not surprising with the foleyin place. Few renal tubular epithelial cells as well. Summary: Miguel Sanchez is 67 y.o. yo male requiring inpatient consultation for CLEM. Medical comorbidities include HLD, HTN, T2DM, and HFrEF (EF 29%). Pt is admitted in the setting of heart failure exacerbation. Cause of CLEM likely multifactorial. His renal imaging showing bilateral pelvicaliectasis and symptoms of incontinence suggest some degree of obstruction. Likely a degree of cardiorenal physiology at play as well. However, Cr was 1.5 in September and urine studies were negative for microalbuminuria at th at time. No prior UPC, unclear when the nephrotic range proteinuria developed however prior A1cs not markedly elevated. SPEP preliminarily concerning for paraprotein however DOROTEO negative. Cr now starting to downtrend and he is auto diuresing, unclear where his kidney function will settle out. Discussed this patient's care with the primary team today. Ultimately I think a discharge today or tomorrow is too hasty. He will likely be diuretic dependent in the setting of his HFrEF but I would not start diuretics today given the ongoing auto diuresis. It's also very common for the dose of diuretics to change so restarting his prior home dose might be premature. His social situation is complex and he does not drive, he is dependent on medical transport to and from appointments. If creatinine trend continues to improve we would probably forego inpatient biopsy with plan to see him in the clinic in the next two weeks. Securing transportation to follow-up appointments will be critical to arranging a safe disposition. Patient is concerned about paying his bills and tending to things at home, I've conveyed this to his care team and care management. # CLEM (Cr 1.5 in September 2022) # Nephrotic Range Proteinuria # Obstructive Nephropathy # HFrEF # Cardiorenal physiology # Anemia - Hold diuretics for now as he seems to be auto diuresing at this time. - Continue to hold ASA at this time. Unclear if he will need renal biopsy given the slight improvement in creatinine but would continue to hold just in case. - Agree with tamsulosin and finasteride, benedict and voiding trial. Please defer to urology regardingfoley catheter. - Please obtain repeat renal U/S to verify hydronephrosis has resolved - Continue cholecalciferol 5000 U daily This case was discussed with staff speech professor Dr. Crawford. Please contact me at phone: [phone] or pager: [phone] with any questions. Deonte Lugo MD Nephrology & Hypertension Fellow Associated attestation - Yolis Crawford MD - 01/25/2023 1:59 PM EDT I have seen and examined M , reviewed the relevant clinical and laboratory data and images, and discussed the case with Dr Moore, Her note accurately reflects our joint assessment and recommendations. CLEM due to obstructive uropathy . With probable underlying CKD and Nephrotic range proteinuria likely diabetic nephropathy in this man with longstanding type 2 DM and peripheral neuropathy. CLEM and volume overload resolving. Will unique need manager intermediate diuretics to maintain fluid balance. Please obtain repeat renal US and schedule for renal clinic follow up with Dr Lugo in 2 weeks. * Kendy Montes MD - 01/25/2023 6:05 AM EDT Images from the original note were not included. Cardiology Progress Note Patient info: Name: Miguel Sanchez : 1955 PCP: ELSIE Espinoza PCP phone number: [phone] Date of Admission: 01/18/2023 ( Hospital Day 7 days ) Attending:Mendel Luna MD ID: Miguel Sanchez is a 67 y.o. male with PMH significant for HFrEF (last known EF 45% in 2020), diabetes, hypertension, and hyperlipidemia who presents from [facility] ED after being redirected from [facility] clinic for one month of progressively worsening shortness of breath and associated chest pain occurring both at rest and on exertion with concern for HFrEF exacerbation and CLEM. Active Problems: Active Hospital Problems Diagnosis Acute on chronic systolic ACC/AHA stage C congestive heart failure Acute kidney injury Resolved Hospital Problems No resolved problems to display. 24 Hour and Subjective: Yesterday: - Euvolemic on RHC will plan for dispo in next few days. Will need home health services set up. Holding ASA in case nephro wants to do a renal biopsy inpatient (they want it held for 7 days). Holdingdiuresis. Overnight: - No acute events overnight. This Morning: - Today patient reports he is feeling well. Denies any chest pain or SOB. Patient would like to know if he can go home today. Vitals Last value Range last 24 hrs Temperature Temp: 36.8 ??C (98.2 ??F) Temp: [36.5 ??C (97.7 ??F)-37 ??C (98.6 ??F)] Heart Rate Heart Rate: 68 Heart Rate: [68-76] Blood Pressure BP: 135/73 BP: (129-145)/(73-80) Art Line BP BP (Arterial Line): -- MAP (NBP): [89 mmHg-96 mmHg] Respiratory Rate Resp: 16 Resp: [16-19] SpO2 SpO2: 98 % SpO2: [96 %-98 %] Oxygen Delivery Oxygen Therapy O2 Device: None (Room air) Reason for Oxygen: Patient currently on room air Objective: Intake/Output Summary (Last 24 hours) at 01/25/2023 0605 Last data filed at 01/25/2023 0400 Gross per 24 hour Intake 900 ml Output 1875 ml Net -975 ml Patient Vitals for the past 168 hrs: Weight 01/24/23 0637 103 kg (227 lb) 01/23/23 0359 104.2 kg (229 lb 11.5 oz) 01/22/23 0408 103.1 kg (227 lb 3.2 oz) 01/21/23 0306 108.1 kg (238 lb 6.4 oz) 01/20/23 0345 108.5 kg (239 lb 4.8 oz) 01/18/23 2329 109.8 kg (242 lb) 01/18/23 1735 109.4 kg (241 lb 3.2 oz) Admit wt: 109.41 kg Physical Exam: Gen: Elderly male lying in bed in NAD; alert, oriented, conversant HEENT: Anicteric, EOMI intact CV: RRR, no murmurs/rubs/gallops, JVP unable to assess due to body habitus Resp: CTAB, no wheezes/crackles Abd: Abdomen soft, NDNT Ext: 2+ distal pulses, no LE edema Lines/Drains/Airways Lines: Peripheral IV Line - Single Lumen 01/18/23 1900 median cubital vein (antecubital fossa), right 20 gauge (Active) Indication/Daily Review of Necessity fluid therapy intermittent;medication therapy intermittent 01/19/232099 Securement catheter stabilization device, secured with 01/19/232099 Patency/Maintenance flushed without difficulty;alcohol impregnated cap applied 07/25/23 2100 Phlebitis 0-->no symptoms 01/20/23 0354 Infiltration 0-->no symptoms 01/20/23 0354 Labs: Recent Labs 01/25/23 0406 01/23/23 0253 01/22/23 0242 01/21/23 0242 01/20/23 0326 WBC 8.2 8.1 8.3 8.1 8.1 HGB 10.6* 10.4* 10.3* 11.1* 10.8* HCT 30.7* 30.7* 30.8* 32.4* 32.5* PLATELET 170 182 183 202 202 MCV 90.8 90.0 90.3 90.3 91.8 Recent Labs 01/25/23 0406 01/24/23 0256 01/23/23 0253 01/22/23 0242 01/21/23 0242 NA 139 139 139 138 140 CL 103 104 105 104 100 CO2 19* 21* 20* 20* 20* K 4.5 4.5 4.4 4.2 4.2 MAGNESIUM 1.00 0.94 0.96 0.97 0.99 PHOS 4.9* 5.0* 5.8* 5.8* 5.3* CALCIUM 9.5 9.3 9.2 9.2 9.3 BUN 78* 80* 81* 79* 72* CREATININE 5.06* 5.46* 5.47* 5.86* 5.70* LFTs Recent Labs 01/18/231915 PROT 7.2 ALBUMIN 4.2 AST 12 ALT 12 ALKPHOS 95 BILITOT 0.7 Coags Recent Labs 01/18/232215 INR 1.3 PT 14.3* PTT 35 Cardiac Enzymes Recent Labs 01/19/23 0150 01/18/231915 CK 70 -- PROBNP -- 11,818* Endocrine Recent Labs 01/18/232215 TSH 2.03 Recent Labs 01/24/23 2212 01/24/23 1641 01/24/23 1210 01/24/23 0751 01/23/23 2116 01/23/23 1513 01/23/23 1106 01/23/23 0746 01/22/23 1928 01/22/23 1730 01/22/23 1235 01/22/23 0752 POCGLU 175 157 177 175 150 246* 163 165 237* 130 165 145 Heme No results for input(s): LDH, HAPTOGLOBIN, URICACID in the last 168 hours. ABG (Arterial Blood Gas) No results found for: PHART, PO2ART, [id number], MPQ8CQK Microbiology: Microbiology Results (Last 30 days) Procedure Component Value Units Date/Time Urine culture [[id number]] Collected: 01/18/232212 Lab Status: Final result Specimen: Indwelling Catheter Urine Updated: 01/19/231842 Urine Culture No growth (Less than 1,000 cfu/ml). Imaging: Results for orders placed or performed during the hospital encounter of 01/18/23 US Retroperitoneal Complete (Exam End: 01/19/2023 8:30 AM) Impression 1. Both kidneys are normal in size and parenchymal thickness but have mild collecting system dilatation. 2. A Benedict catheter is present in an otherwise empty and difficult to evaluate urinary bladder.. Electronically signed by: Jimmie العراقي MD, [facility] ([phone]), at 01/19/2023 8:39 AM Thank you for letting us participate in the care of this patient. If you are a health care provider and have any questions regarding this report, please contact the number above. For patients who have questions, please contact the health rn primary care that requested your imaging first. Jimmie العراقي, Staff Physician Electronically Signed Final Report 01/19/2023 08:47 am TTE 01/19/23: Interpretation Summary Left ventricle is mildly dilated with mildly [...] left ventricular systolic function has further decreased. Inpatient Medications Scheduled Meds: cholecalciferol 5,000 Units Oral Daily losartan 12.5 mg Oral Daily metoprolol succinate XL 25 mg Oral Daily hydrocortisone Topical (Top) BID finasteride 5 mg Oral Daily tamsulosin 0.4 mg Oral Daily capsaicin Topical (Top) BID heparin (porcine) 7,500 Units Subcutaneous Q8H JAMAL gabapentin 100 mg Oral BID OLANZapine 15 mg Oral Nightly sodium chloride 0.9 % (flush) 5 mL Intravenous BID insulin lispro 0-8 Units Subcutaneous TID WC insulin lispro 1-4 Units Subcutaneous TID AC atorvastatin 80 mg Oral QPM Continuous Infusions: PRN Meds:.acetaminophen, sodium chloride 0.9 % (flush), lidocaine, nitroGLYcerin, glucose 40% oral geL OR dextrose 10% OR glucagon Outpatient Medications Current Outpatient Medications Medication Instructions gabapentin (NEURONTIN) 100 mg, 3 TIMES DAILY metFORMIN (GLUCOPHAGE) 500 mg, Oral, 2 TIMES DAILY WITH MEALS naproxen sodium 220 mg Cap Take by mouth. pimozide (ORAP) 2 mg, Oral, 2 TIMES DAILY simvastatin (ZOCOR) 10 mg, NIGHTLY triamcinolone (KENALOG) 0.1 % cream 2 TIMES DAILY Assessment & Plan: Miguel Sanchez is a 67 y.o. male with PMH significant for HFrEF (last known EF 45% in 2020), diabetes, hypertension, and hyperlipidemia who presents from [facility] ED after being redirected from [facility] urgent clinic for one month of progressively worsening shortness of breath and associated chest painoccurring both at rest and on exertion with concern for acute on chronic HFrEF exacerbation, profound CLEM. Creatinine improving today with RHC yesterday demonstrating euvolemia, correlating to his euvolemicphysical exam. Weight is up 2 lbs today, can consider restarting diuresis although he seems to be autodiuresing adequately. Per nephrology, would benefit from a kidney biopsy to elicit the cause of his severe CLEM, as it seems less likely cardiorenal given his RHC results. He will need home servicesupon discharge so will plan to arrange for that, and likely kidney biopsy as an outpatient if he remains stable for dc this week. 01/25/23 No acute changes today. Kidney function stabilized although still persistently elevated from baseline. Spoke with nephrology team who are considering kidney biopsy either outpatient or inpatient, prefer inpatient given patient's social situation, though currently not scheduled because patient's Cr has downtrended today. He will need to hold ASA for at least a week prior, so we will continue holding today. We will also hold on restarting diuresis as he continues to be net negative without diuretics. Arranging home health services with help of case management team. #Acute on chronic systolic HFrEF exacerbation (EF 29%) RHC - euvolemia GDMT Continue metoprolol succinate 25 mg daily Continue losartan 25 mg daily Diuresis Hold diuresis; auto-diuresing ~1L/day HOLD ASA 81 mg daily (in anticipating for possible kidney biopsy) Atorvastatin 80 mg daily Nitroglycerin 0.4mg PRN for chest pain Electrolyte repletion as needed K > 4, Mg > 1 Telemetry #Stage III CLEM (last known baseline was September 2022 with creatinine of 1.5 and BUN of 19) #Likely cardiorenal syndrome #Consider obstructive uropathy #Consider diabetic nephropathy Monitor urine output closely Benedict Nephrology following Agree with losartan 25 mg daily Hold diuresis Considering renal biopsy either inpatient or outpatient pending renal function Aim for net even I/O Renal U/S 01/19 shows bilateral pelvicaliectasis concerning for hydro (this is with benedict in place).Renal size is normal bilaterally with normal appearing parenchyma/cortex. Nephrotic range proteinuria Iron studies- Iron 68, TIBC 229, Ferritin 478 Vitamin D/PTH levels - PTH 40, Vit D 9 Urology consulted - maintain benedict catheter 5-7 days followed by TOV Repeat renal U/S in a couple days to confirm resolution of hydronephrosis Continue finasteride and tamsulosin Urology outpatient for further management of possible BPH #Diabetes Holding home metformin Sensitive sliding scale and meal associated lispro #History of hypertension Continue losartan 25 mg daily #Hyperlipidemia Holding home simvastatin 10 mg daily Continue atorvastatin 80 mg daily #History of peripheral neuropathy Continue reduced dose gabapentin 100 mg BID in the context of CELM #Patient concern for unspecified poisoning Tox screen negative Salicylates and acetaminophen level negative #Schizophrenia - Continue home olanzapine #Housekeeping: DVT PPx: Heparin GI PPx: Diet: Cardiac diet Lines: Peripheral IV Line - Single Lumen 01/18/23 1900 median cubital vein (antecubital fossa), right 20 gauge (Active) Number of days: 6 Code status: FULL CODE Kendy Montes MD Internal Medicine, PGY-1 Cardiology M1-S2, #[id number] 01/25/2023, 6:05 AM Associated attestation - Mendel Luna MD - 01/25/2023 2:41 PM EDT Cardiology Attending Addendum Active Hospital Problems Diagnosis Acute on chronic systolic ACC/AHA stage C congestive heart failure Acute kidney injury Schizophrenia Peripheral neuropathy Type 2 diabetes with nephropathy Resolved Hospital Problems No resolved problems to display. I have interviewed and examined the patient, reviewed the available data, and have discussed my findings, assessment and plan with the patient and the team on rounds today. I agree with Dr. Montes's note as below which reflects our discussion. * Deonte Lugo MD - 01/24/2023 8:01 AM EDT Hypertension-Nephrology Inpatient Follow-up Miguel Sanchez [id number] 1955 ID: 67 y.o. old male seen for CLEM. Interval History: Diuretics held again yesterday however continues to auto diurese. He clarified his living situationfor us and explains that he lives independently in low income housing and depends on rides to get to clinic appointments etc which is not always available. He follows very closely with a mental health clinic and has a social worker health services there who helps him. Physical Examination: Last value 24 Hour Temperature Range Temp: [36.4 ??C (97.5 ??F)-37.2 ??C (98.9 ??F)] 12 Hour Heart Rate Range Heart Rate: [69-75] 24 Hour Blood Pressure Range BP: (119-149)/(77-89) Respiratory Rate Resp: 19 SpO2 SpO2: 97 % Body mass index is 37.77 kg/m??. General: Chronically ill appearing, not in distress, lying comfortably in the exam room. HEENT: EOM intact, sclera clear, mucous membranes moist. CV: S1 & S2 faint but audible I do not appreciate a murmur on exam. Resp: Breathing is comfortable on room air, I do not appreciate crackles. Abd: Soft, non-tender, non-distended. Ext: No edema in the lower extremities. Skin: No rashes or lesions on the exposed skin. Neuro: Alert & oriented, no focal deficits. Psych: Pleasant and calm, conversational attention is intact. [START ON 01/25/2023] losartan 25 mg Oral Daily metoprolol succinate XL 25 mg Oral Daily hydrocortisone Topical (Top) BID finasteride 5 mg Oral Daily tamsulosin 0.4 mg Oral Daily capsaicin Topical (Top) BID heparin (porcine) 7,500 Units Subcutaneous Q8H JAMAL gabapentin 100 mg Oral BID OLANZapine 15 mg Oral Nightly sodium chloride 0.9 % (flush) 5 mL Intravenous BID insulin lispro 0-8 Units Subcutaneous TID WC insulin lispro 1-4 Units Subcutaneous TID AC atorvastatin 80 mg Oral QPM No Known Allergies Lab Results Component Value Date CREATININE 5.46 (H) 01/24/2023 CREATININE 5.47 (H) 01/23/2023 CREATININE 5.86 (H) 01/22/2023 CREATININE 5.70 (H) 01/21/2023 CREATININE 5.79 (H) 01/20/2023 ESTGFR 11 (L) 01/24/2023 ESTGFR 11 (L) 01/23/2023 ESTGFR 10 (L) 01/22/2023 ESTGFR 10 (L) 01/21/2023 ESTGFR 10 (L) 01/20/2023 CO2 21 (L) 01/24/2023 CO2 20 (L) 01/23/2023 CO2 20 (L) 01/22/2023 CO2 20 (L) 01/21/2023 CO2 20 (L) 01/20/2023 NA 139 01/24/2023 NA 139 01/23/2023 NA 138 01/22/2023 NA 140 01/21/2023 NA 139 01/20/2023 K 4.5 01/24/2023 K 4.4 01/23/2023 K 4.2 01/22/2023 K 4.2 01/21/2023 K 4.5 01/20/2023 Lab Results Component Value Date UPROTCREAT 4.9 01/18/2023 ALBUMIN 4.2 01/18/2023 Lab Results Component Value Date HGB 10.4 (L) 01/23/2023 FERRITIN 478 (H) 01/20/2023 IRONSAT 30 01/20/2023 Lab Results Component Value Date CALCIUM 9.3 01/24/2023 CALCIUM 9.2 01/23/2023 CALCIUM 9.2 01/22/2023 PHOS 5.0 (H) 01/24/2023 PHOS 5.8 (H) 01/23/2023 PHOS 5.8 (H) 01/22/2023 PTH 401 (H) 01/20/2023 25OHVITD 9 (L) 01/20/2023 HA1C 5.7 (H) 01/18/2023 Lab Results Component Value Date C3 126 01/22/2023 C4 31 01/20/2023 Renal U/S 01/19 shows bilateral pelvicaliectasis concerning for hydro (this is with benedict in place).Renal size is normal bilaterally with normal appearing parenchyma/cortex. TTE 01/19 shows reduced EF of 29%, mild to moderate mitral regurgitation, and a small pericardial effusion adjacent to the right atrium. HIV and hepatitis serologies negative. SPEP shows possible paraprotein DOROTEO pending. [place] & Lambda light chains elevated however ratio normal. Summary: Miguel Sanchez is 67 y.o. yo male requiring inpatient consultation for CLEM. Medical comorbidities include HLD, HTN, T2DM, and HFrEF (EF 29%). Pt is admitted in the setting of heart failure exacerbation. Cause of CLEM likely multifactorial. His renal imaging showing bilateral pelvicaliectasis and symptoms of incontinence suggest some degree of obstruction. Likely a degree of cardiorenal physiology at play as well. However, Cr was 1.5 in September and urine studies were negative for microalbuminuria at that time. No prior UPC, unclear when the nephrotic range proteinuria developed however prior A1cs not markedly elevated which points away from diabetic nephropathy. His DOROTEO is pending, SPEP preliminarily concerning for paraprotein. Patient may need a renal biopsy to clarify the underlying etiology depending on the results. We discussed this again with him today as well as the logistics of his living situation. As it stands he would need rides to and from clinic visits and has a social worker health services whogenerally helps him with this. This is important information as it will help us in planning the logistics around a biopsy (oupatient may be very difficult to coordinate). We will keep this in mind when discussing his case tomorrow with our colleagues in radiology. # CLEM (Cr 1.5 in September 2022) # Nephrotic Range Proteinuria # Obstructive Nephropathy # HFrEF # Cardiorenal physiology # Anemia - Hold diuretics for now as he seems to be auto diuresing at this time. - Hold ASA for the time being in preparation for potential renal biopsy next week. His social situation might make an out patient biopsy difficult or simply unfeasible. We will know more Wednesday when we can talk to U/S about potential biopsy and safety of U/S guided v.s. CT given body habitus. - Agree with tamsulosin and finasteride, benedict and voiding trial - Please note that I ordered cholecalciferol 5000 U daily for the vitamin D deficiency. This case was discussed with staff speech professor Dr. Morrow. Please contact me at phone: [phone] or pager: [phone] with any questions. Deonte Lugo MD Nephrology Fellow Associated attestation - Sixto Morrow MD - 01/24/2023 5:19 PM EDT I saw and discussed the patient with the fellow and I agree with the assessment and plan in his note. Kidney function with slight improvement and urine output remains robust without diuretics. Biopsyconsideration per fellow's note. We do think patient is going to require intensive end-stage renal disease planning and education in the near future and concerned that his transportation status may li bebe this in the outpatient setting. He does report having a mental health industrial maintenance technician who may be of some assistance when discharge planning comes to play. * Kendy Montes MD - 01/24/2023 6:39 AM EDT Images from the original note were not included. Cardiology Progress Note Patient info: Name: Miguel Sanchez : 1955 PCP: ELSIE Espinoza PCP phone number: [phone] Date of Admission: 01/18/2023 ( Hospital Day 6 days ) Attending:Mendel Luna MD ID: Miguel Sanchez is a 67 y.o. male with PMH significant for HFrEF (last known EF 45% in 2020), diabetes, hypertension, and hyperlipidemia who presents from [facility] ED after being redirected from [facility] clinic for one month of progressively worsening shortness of breath and associated chest pain occurring both at rest and on exertion with concern for HFrEF exacerbation and CLEM. Active Problems: Active Hospital Problems Diagnosis Acute on chronic systolic ACC/AHA stage C congestive heart failure Acute kidney injury Resolved Hospital Problems No resolved problems to display. 24 Hour and Subjective: Yesterday: - Euvolemic on RHC will plan for dispo in next few days. Will need home health services set up. Holding ASA in case nephro wants to do a renal biopsy inpatient (they want it held for 7 days). Overnight: - No acute events overnight. Mg repleted. This Morning: - Today patient reports he is feeling well. Denies any chest pain or SOB. Vitals Last value Range last 24 hrs Temperature Temp: 36.7 ??C (98.1 ??F) Temp: [36.4 ??C (97.5 ??F)-37.2 ??C (98.9 ??F)] Heart Rate Heart Rate: 75 Heart Rate: [63-75] Blood Pressure BP: 141/84 BP: (119-149)/(77-89) Art Line BP BP (Arterial Line): -- MAP (NBP): [93 mmHg-106 mmHg] Respiratory Rate Resp: 19 Resp: [16-19] SpO2 SpO2: 96 % SpO2: [96 %-98 %] Oxygen Delivery Oxygen Therapy O2 Device: None (Room air) Reason for Oxygen: Patient currently on room air Objective: Intake/Output Summary (Last 24 hours) at 01/24/2023 0639 Last data filed at 01/24/2023 0400 Gross per 24 hour Intake 1040 ml Output 2425 ml Net -1385 ml Patient Vitals for the past 168 hrs: Weight 01/23/23 0359 104.2 kg (229 lb 11.5 oz) 01/22/23 0408 103.1 kg (227 lb 3.2 oz) 01/21/23 0306 108.1 kg (238 lb 6.4 oz) 01/20/23 0345 108.5 kg (239 lb 4.8 oz) 01/18/23 2329 109.8 kg (242 lb) 01/18/23 1735 109.4 kg (241 lb 3.2 oz) Admit wt: 109.41 kg Physical Exam: Gen: Elderly male lying in bed in NAD; alert, oriented, conversant HEENT: Anicteric, EOMI intact CV: RRR, no murmurs/rubs/gallops, JVP unable to assess due to body habitus Resp: CTAB, no wheezes/crackles Abd: Abdomen soft, NDNT Ext: 2+ distal pulses, no LE edema Lines/Drains/Airways Lines: Peripheral IV Line - Single Lumen 01/18/231899 median cubital vein (antecubital fossa), right 20 gauge (Active) Indication/Daily Review of Necessity fluid therapy intermittent;medication therapy intermittent 01/19/232099 Securement catheter stabilization device, secured with 01/19/232099 Patency/Maintenance flushed without difficulty;alcohol impregnated cap applied 01/19/232099 Phlebitis 0-->no symptoms 01/20/23353 Infiltration 0-->no symptoms 01/20/23353 Labs: Recent Labs 01/23/23 0253 01/22/23 0242 01/21/23 0242 01/20/23 0326 01/19/230 WBC 8.1 8.3 8.1 8.1 7.8 HGB 10.4* 10.3* 11.1* 10.8* 10.1* HCT 30.7* 30.8* 32.4* 32.5* 30.3* PLATELET 182 183 202 202 173 MCV 90.0 90.3 90.3 91.8 93.2* Recent Labs 01/24/23 0256 01/23/23 0253 01/22/23 0242 01/21/23 0242 01/20/23 0326 NA 139 139 138 140 139 CL 104 105 104 100 102 CO2 21* 20* 20* 20* 20* K 4.5 4.4 4.2 4.2 4.5 MAGNESIUM 0.94 0.96 0.97 0.99 0.95 PHOS 5.0* 5.8* 5.8* 5.3* 4.7* CALCIUM 9.3 9.2 9.2 9.3 8.8 BUN 80* 81* 79* 72* 67* CREATININE 5.46* 5.47* 5.86* 5.70* 5.79* LFTs Recent Labs 01/18/231915 PROT 7.2 ALBUMIN 4.2 AST 12 ALT 12 ALKPHOS 95 BILITOT 0.7 Coags Recent Labs 01/18/232215 INR 1.3 PT 14.3* PTT 35 Cardiac Enzymes Recent Labs 01/19/23 0150 01/18/231915 CK 70 -- PROBNP -- 11,818* Endocrine Recent Labs 01/18/23 2216 TSH 2.03 Recent Labs 01/23/23 2116 01/23/23 1513 01/23/23 1106 01/23/23 0746 01/22/23 1928 01/22/23 1730 01/22/23 1235 01/22/23 0752 01/21/23 1841 01/21/23 1557 01/21/23 1132 01/21/23 0938 POCGLU 150 246* 163 165 237* 130 165 145 199 125 249* 233* Heme No results for input(s): LDH, HAPTOGLOBIN, URICACID in the last 168 hours. ABG (Arterial Blood Gas) No results found for: PHART, PO2ART, INF3NIY, ZUK2PQY Microbiology: Microbiology Results (Last 30 days) Procedure Component Value Units Date/Time Urine culture [[id number]] Collected: 01/18/232212 Lab Status: Final result Specimen: Indwelling Catheter Urine Updated: 01/19/231842 Urine Culture No growth (Less than 1,000 cfu/ml). Imaging: Results for orders placed or performed during the hospital encounter of 01/18/23 US Retroperitoneal Complete (Exam End: 01/19/2023 8:30 AM) Impression 1. Both kidneys are normal in size and parenchymal thickness but have mild collecting system dilatation. 2. A Benedict catheter is present in an otherwise empty and difficult to evaluate urinary bladder.. Electronically signed by: Jimmie العراقي MD, [facility] ([phone]), at 01/19/2023 8:39 AM Thank you for letting us participate in the care of this patient. If you are a health care provider and have any questions regarding this report, please contact the number above. For patients who have questions, please contact the health rn primary care that requested your imaging first. Jimmie العراقي, Staff Physician Electronically Signed Final Report 01/19/2023 08:47 am TTE 01/19/23: Interpretation Summary Left ventricle is mildly dilated with mildly [...] left ventricular systolic function has further decreased. Inpatient Medications Scheduled Meds: magnesium sulfate 1 g Intravenous Once metoprolol succinate XL 25 mg Oral Daily hydrocortisone Topical (Top) BID finasteride 5 mg Oral Daily tamsulosin 0.4 mg Oral Daily capsaicin Topical (Top) BID heparin (porcine) 7,500 Units Subcutaneous Q8H JAMAL gabapentin 100 mg Oral BID OLANZapine 15 mg Oral Nightly sodium chloride 0.9 % (flush) 5 mL Intravenous BID insulin lispro 0-8 Units Subcutaneous TID WC insulin lispro 1-4 Units Subcutaneous TID AC atorvastatin 80 mg Oral QPM Continuous Infusions: PRN Meds:.acetaminophen, sodium chloride 0.9 % (flush), lidocaine, nitroGLYcerin, glucose 40% oral geL OR dextrose 10% OR glucagon Outpatient Medications Current Outpatient Medications Medication Instructions gabapentin (NEURONTIN) 100 mg, 3 TIMES DAILY metFORMIN (GLUCOPHAGE) 500 mg, Oral, 2 TIMES DAILY WITH MEALS naproxen sodium 220 mg Cap Take by mouth. pimozide (ORAP) 2 mg, Oral, 2 TIMES DAILY simvastatin (ZOCOR) 10 mg, NIGHTLY triamcinolone (KENALOG) 0.1 % cream 2 TIMES DAILY Assessment & Plan: Miguel Sanchez is a 67 y.o. male with PMH significant for HFrEF (last known EF 45% in 2019), diabetes, hypertension, and hyperlipidemia who presents from [facility] ED after being redirected from [facility] clinic for one month of progressively worsening shortness of breath and associated chest painoccurring both at rest and on exertion with concern for acute on chronic HFrEF exacerbation, profound CLEM. Creatinine improving today with RHC yesterday demonstrating euvolemia, correlating to his euvolemicphysical exam. Weight is up 2 lbs today, can consider restarting diuresis although he seems to be autodiuresing adequately. Per nephrology, would benefit from a kidney biopsy to elicit the cause of his severe CLEM, as it seems less likely cardiorenal given his RHC results. He will need home servicesupon discharge so will plan to arrange for that, and likely kidney biopsy as an outpatient if he remains stable for dc through the weekend. 01/24/23 No acute changes today. Kidney function stabilized although still persistently elevated from baseline. Will plan for kidney biopsy either outpatient or inpatient, although should not be a barrier to discharge. He will need to hold ASA for at least a week prior, so we will start holding today. We will also hold on initiating diuresis as he continues to be net negative without diuretics. #Acute on chronic systolic HFrEF exacerbation (EF 29%) RHC - euvolemia GDMT Continue metoprolol succinate 25 mg daily Start losartan 25 mg daily Diuresis Hold diuresis; auto-diuresing ~1L/day HOLD ASA 81 mg daily (in anticipating for possible kidney biopsy) Atorvastatin 80 mg daily Nitroglycerin 0.4mg PRN for chest pain Electrolyte repletion as needed K > 4, Mg > 1 Telemetry #Stage III CLEM (last known baseline was September 2022 with creatinine of 1.5 and BUN of 19) #Likely cardiorenal syndrome #Consider obstructive uropathy #Consider diabetic nephropathy Hyperphosphatemia today, hold on starting phosphate binder Q4H BMP to monitor creatine Monitor urine output closely Benedict [facility] following Agree with starting losartan 25 mg daily Aim for net even I/O Renal U/S 01/19 shows bilateral pelvicaliectasis concerning for hydro (this is with benedict in place).Renal size is normal bilaterally with normal appearing parenchyma/cortex. Nephrotic range proteinuria Iron studies- Iron 68, TIBC 229, Ferritin 478 Vitamin D/PTH levels - PTH 40, Vit D 9 Urology consulted - maintain benedict catheter 5-7 days followed by TOV Repeat renal U/S in a couple days to confirm resolution of hydronephrosis Continue finasteride and tamsulosin Urology outpatient for further management of possible BPH #Diabetes Holding home metformin Sensitive sliding scale and meal associated lispro #History of hypertension Start losartan 25 mg daily #Hyperlipidemia Holding home simvastatin 10 mg daily Continue atorvastatin 80 mg daily #History of peripheral neuropathy Continue reduced dose gabapentin 100 mg BID in the context of CLEM #Patient concern for unspecified poisoning Tox screen negative Salicylates and acetaminophen level negative #Schizophrenia - Continue home olanzapine #Routine Diet: Cardiac diet (Give Meds) DVT Prophylaxis: Heparin SQ GI Prophylaxis: Not indicated Code Status: Attempt Cardiopulmonary Resuscitation - Inpatient Dispo: Pending clinical course #Housekeeping: DVT PPx: Heparin GI PPx: Diet: Cardiac diet Lines: Peripheral IV Line - Single Lumen 01/18/23 1900 median cubital vein (antecubital fossa), right 20 gauge (Active) Number of days: 5 Code status: FULL CODE Kendy Montes MD Internal Medicine, PGY-1 Cardiology M1-S2, #[id number] 01/24/2023, 6:39 AM Associated attestation - Mendel Luna MD - 01/24/2023 9:33 PM EDT Cardiology Attending Addendum Active Hospital Problems Diagnosis Acute on chronic systolic ACC/AHA stage C congestive heart failure Acute kidney injury Resolved Hospital Problems No resolved problems to display. I have interviewed and examined the patient, reviewed the available data, and have discussed my findings, assessment and plan with the patient and the team on rounds today. I agree with Dr. Montes's note as below which reflects our discussion. * Deonte Lugo MD - 01/23/2023 7:54 AM EDT Hypertension-Nephrology Inpatient Follow-up Miguel Sanchez [id number] 1955 ID: 67 y.o. old male seen for CLEM. Interval History: Diuretics held again yesterday, continues to auto diurese. His wedge pressure yesterday was slightly elevated at 18. Volume status otherwise appears stable. He feels well today, no pressing questionsor concerns. Physical Examination: Last value 24 Hour Temperature Range Temp: [36.4 ??C (97.5 ??F)-37 ??C (98.6 ??F)] 12 Hour Heart Rate Range Heart Rate: [63-69] 24 Hour Blood Pressure Range BP: (131-141)/(63-83) Respiratory Rate Resp: 16 SpO2 SpO2: 98 % Body mass index is 38.23 kg/m??. General: Chronically ill appearing, not in distress, lying comfortably in the exam room. HEENT: EOM intact, sclera clear, mucous membranes moist. CV: S1 & S2 faint but audible I do not appreciate a murmur on exam. Resp: Breathing is comfortable on room air, I do not appreciate crackles. Abd: Soft, non-tender, non-distended. Ext: No edema in the lower extremities. Skin: No rashes or lesions on the exposed skin. Neuro: Alert & oriented, no focal deficits. Psych: Pleasant and calm, conversational attention is intact. metoprolol succinate XL 25 mg Oral Daily hydrocortisone Topical (Top) BID finasteride 5 mg Oral Daily tamsulosin 0.4 mg Oral Daily capsaicin Topical (Top) BID heparin (porcine) 7,500 Units Subcutaneous Q8H JAMAL gabapentin 100 mg Oral BID OLANZapine 15 mg Oral Nightly sodium chloride 0.9 % (flush) 5 mL Intravenous BID aspirin EC 81 mg Oral Daily insulin lispro 0-8 Units Subcutaneous TID WC insulin lispro 1-4 Units Subcutaneous TID AC atorvastatin 80 mg Oral QPM No Known Allergies Lab Results Component Value Date CREATININE 5.47 (H) 01/23/2023 CREATININE 5.86 (H) 01/22/2023 CREATININE 5.70 (H) 01/21/2023 CREATININE 5.79 (H) 01/20/2023 CREATININE 5.69 (H) 01/19/2023 ESTGFR 11 (L) 01/23/2023 ESTGFR 10 (L) 01/22/2023 ESTGFR 10 (L) 01/21/2023 ESTGFR 10 (L) 01/20/2023 ESTGFR 10 (L) 01/19/2023 CO2 20 (L) 01/23/2023 CO2 20 (L) 01/22/2023 CO2 20 (L) 01/21/2023 CO2 20 (L) 01/20/2023 CO2 22 01/19/2023 NA 139 01/23/2023 NA 138 01/22/2023 NA 140 01/21/2023 NA 139 01/20/2023 NA 140 01/19/2023 K 4.4 01/23/2023 K 4.2 01/22/2023 K 4.2 01/21/2023 K 4.5 01/20/2023 K 4.4 01/19/2023 Lab Results Component Value Date UPROTCREAT 4.9 01/18/2023 ALBUMIN 4.2 01/18/2023 Lab Results Component Value Date HGB 10.4 (L) 01/23/2023 FERRITIN 478 (H) 01/20/2023 IRONSAT 30 01/20/2023 Lab Results Component Value Date CALCIUM 9.2 01/23/2023 CALCIUM 9.2 01/22/2023 CALCIUM 9.3 01/21/2023 PHOS 5.8 (H) 01/23/2023 PHOS 5.8 (H) 01/22/2023 PHOS 5.3 (H) 01/21/2023 PTH 401 (H) 01/20/2023 25OHVITD 9 (L) 01/20/2023 HA1C 5.7 (H) 01/18/2023 Lab Results Component Value Date C3 126 01/22/2023 C4 31 01/20/2023 Renal U/S 01/19 shows bilateral pelvicaliectasis concerning for hydro (this is with benedict in place).Renal size is normal bilaterally with normal appearing parenchyma/cortex. TTE 01/19 shows reduced EF of 29%, mild to moderate mitral regurgitation, and a small pericardial effusion adjacent to the right atrium. HIV and hepatitis serologies negative. SPEP shows possible paraprotein DOROTEO pending. [place] & Lambda light chains elevated however ratio normal. Summary: Miguel Sanchez is 67 y.o. yo male requiring inpatient consultation for CLEM. Medical comorbidities include HLD, HTN, T2DM, and HFrEF (EF 29%). Pt is admitted in the setting of heart failure exacerbation. Cause of CLEM likely multifactorial. His renal imaging showing bilateral pelvicaliectasis and symptoms of incontinence suggest some degree of obstruction. Likely a degree of cardiorenal physiology at play as well. However, Cr was 1.5 in September and urine studies were negative for microalbuminuria at th at time. No prior UPC, unclear when the nephrotic range proteinuria developed however prior A1cs not markedly elevated. His DOROTEO is pending, SPEP preliminarily concerning for paraprotein. Patient may need a renal biopsy to clarify the underlying etiology depending on the results. We discussed this with him today. # CLEM (Cr 1.5 in September 2022) # Obstructive Nephropathy # HFrEF # Cardiorenal physiology # Anemia - Hold diuretics for now as he seems to be auto diuresing at this time. - Hold ASA for the time being in preparation for potential renal biopsy next week. This should not hold him in the hospital, but depending on the timing/availability of a biopsy spot this could be done here. We will know more Wednesday when we can talk to U/S about potential biopsy and safety of U/S guided v.s. CT given body habitus. - Agree with tamsulosin and finasteride, benedict and voiding trial - Please start ergocalciferol [id number] U weekly This case was discussed with staff speech professor Dr. Morrow. Please contact me at phone: [phone] or pager: [phone] with any questions. Deonte Lugo MD Nephrology Fellow Associated attestation - Sixto Morrow MD - 01/23/2023 6:55 PM EDT I saw and discussed the patient with the fellow and agree with the assessment and plan in his note.Kidney function remains relatively stable albeit at low level and patient remains nonoliguric without diuretic use. Right heart cath suggest reasonable intravascular volume. With a wedge pressure of 18 believe home dose diuretic at least reasonable. He has proteinuric CKD of unknown etiology, but does not appear to have the nephrotic syndrome per se. He would likely benefit from long-term JOSE ELIAS inhibition as long as he can avoid issues with potassium. GFR at this point probably out of limits for SGLT2 inhibition but this can be considered if things improve unclear to what extent biopsy would tra nge management and he need not stay in the hospital for this to happen.. Patient is on aspirin and this would need to wash out of his system. * Lindsay Morrison MD - 01/23/2023 7:23 AM EDT Images from the original note were not included. Cardiology Progress Note Patient info: Name: Miguel Sanchez : 1955 PCP: ELSIE Espinoza PCP phone number: [phone] Date of Admission: 01/18/2023 ( Hospital Day 5 days ) Attending:Mendel Luna MD ID: Miguel Sanchez is a 67 y.o. male with PMH significant for HFrEF (last known EF 45% in 2019), diabetes, hypertension, and hyperlipidemia who presents from [facility] ED after being redirected from [facility] urgent clinic for one month of progressively worsening shortness of breath and associated chest pain occurring both at rest and on exertion with concern for HFrEF exacerbation and CLEM. Active Problems: Active Hospital Problems Diagnosis Acute on chronic systolic ACC/AHA stage C congestive heart failure Acute kidney injury Resolved Hospital Problems No resolved problems to display. 24 Hour and Subjective: Yesterday: - Euvolemic on RHC Overnight: - Given hydrocortisone cream for pruritis This Morning: - Today patient reports he is feeling well. Denies any chest pain or SOB. Vitals Last value Range last 24 hrs Temperature Temp: 36.5 ??C (97.7 ??F) Temp: [36.5 ??C (97.7 ??F)-37 ??C (98.6 ??F)] Heart Rate Heart Rate: 69 Heart Rate: [65-78] Blood Pressure BP: 136/70 BP: (131-143)/(63-83) Art Line BP BP (Arterial Line): -- MAP (NBP): [82 mmHg-102 mmHg] Respiratory Rate Resp: 16 Resp: [16-20] SpO2 SpO2: 98 % SpO2: [94 %-99 %] Oxygen Delivery Oxygen Therapy O2 Device: None (Room air) Reason for Oxygen: Patient currently on room air Objective: Intake/Output Summary (Last 24 hours) at 01/23/2023 0723 Last data filed at 01/23/2023 0500 Gross per 24 hour Intake 200 ml Output 1250 ml Net -1050 ml Patient Vitals for the past 168 hrs: Weight 01/23/23 0359 104.2 kg (229 lb 11.5 oz) 01/22/23 0408 103.1 kg (227 lb 3.2 oz) 01/21/23 0306 108.1 kg (238 lb 6.4 oz) 01/20/23 0345 108.5 kg (239 lb 4.8 oz) 01/18/23 2329 109.8 kg (242 lb) 01/18/23 1735 109.4 kg (241 lb 3.2 oz) Admit wt: 109.41 kg Physical Exam: Gen: Elderly male lying in bed in NAD; alert, oriented, conversant HEENT: Anicteric, EOMI intact CV: RRR, no murmurs/rubs/gallops, JVP unable to assess due to body habitus Resp: CTAB, no wheezes/crackles Abd: Abdomen soft, NDNT Ext: 2+ distal pulses, no LE edema Lines/Drains/Airways Lines: Peripheral IV Line - Single Lumen 01/18/23 1900 median cubital vein (antecubital fossa), right 20 gauge (Active) Indication/Daily Review of Necessity fluid therapy intermittent;medication therapy intermittent 01/19/232099 Securement catheter stabilization device, secured with 01/19/232099 Patency/Maintenance flushed without difficulty;alcohol impregnated cap applied 01/19/232099 Phlebitis 0-->no symptoms 01/20/23 035 Infiltration 0-->no symptoms 01/20/23 035 Labs: Recent Labs 01/23/23 0253 01/22/23 0242 01/21/23 0242 01/20/23 0326 01/19/23 0150 WBC 8.1 8.3 8.1 8.1 7.8 HGB 10.4* 10.3* 11.1* 10.8* 10.1* HCT 30.7* 30.8* 32.4* 32.5* 30.3* PLATELET 182 183 202 202 173 MCV 90.0 90.3 90.3 91.8 93.2* Recent Labs 01/23/23 0253 01/22/23 0242 01/21/23 0242 01/20/23 0326 01/19/23 1415 01/19/23 0621 01/19/23 0150 NA 139 138 140 139 140 < > 143 CL 105 104 100 102 102 < > 107 CO2 20* 20* 20* 20* 22 < > 22 K 4.4 4.2 4.2 4.5 4.4 < > 4.3 MAGNESIUM 0.96 0.97 0.99 0.95 -- -- 0.80 PHOS 5.8* 5.8* 5.3* 4.7* -- -- 4.3 CALCIUM 9.2 9.2 9.3 8.8 9.3 < > 8.9 BUN 81* 79* 72* 67* 59* < > 54* CREATININE 5.47* 5.86* 5.70* 5.79* 5.69* < > 5.50* < > = values in this interval not displayed. LFTs Recent Labs 01/18/23 1916 PROT 7.2 ALBUMIN 4.2 AST 12 ALT 12 ALKPHOS 95 BILITOT 0.7 Coags Recent Labs 01/18/232215 INR 1.3 PT 14.3* PTT 35 Cardiac Enzymes Recent Labs 01/19/23 0150 01/18/23 1916 CK 70 -- PROBNP -- 11,818* Endocrine Recent Labs 01/18/232215 TSH 2.03 Recent Labs 01/22/23 1928 01/22/23 1730 01/22/23 1235 01/22/23 0752 01/21/23 1841 01/21/23 1557 01/21/23 1132 01/21/23 0938 01/21/23 0805 01/20/23 1945 01/20/23 1638 01/20/23 1614 POCGLU 237* 130 165 145 199 125 249* 233* 178 158 96 101 Heme No results for input(s): LDH, HAPTOGLOBIN, URICACID in the last 168 hours. ABG (Arterial Blood Gas) No results found for: PHART, PO2ART, XLM9FVT, JZB0HDA Microbiology: Microbiology Results (Last 30 days) Procedure Component Value Units Date/Time Urine culture [[id number]] Collected: 01/18/232212 Lab Status: Final result Specimen: Indwelling Catheter Urine Updated: 01/19/231842 Urine Culture No growth (Less than 1,000 cfu/ml). Imaging: Results for orders placed or performed during the hospital encounter of 01/18/23 US Retroperitoneal Complete (Exam End: 01/19/2023 8:30 AM) Impression 1. Both kidneys are normal in size and parenchymal thickness but have mild collecting system dilatation. 2. A Benedict catheter is present in an otherwise empty and difficult to evaluate urinary bladder.. Thank you for letting us participate in the care of this patient. If you are a health care provider and have any questions regarding this report, please contact the number above. For patients who have questions, please contact the health rn primary care that requested your imaging first. Jimmie العراقي, Staff Physician Electronically Signed Final Report 01/19/2023 08:47 am TTE 01/19/23: Interpretation Summary Left ventricle is mildly dilated with mildly [...] left ventricular systolic function has further decreased. Inpatient Medications Scheduled Meds: metoprolol succinate XL 25 mg Oral Daily hydrocortisone Topical (Top) BID finasteride 5 mg Oral Daily tamsulosin 0.4 mg Oral Daily capsaicin Topical (Top) BID heparin (porcine) 7,500 Units Subcutaneous Q8H JAMAL gabapentin 100 mg Oral BID OLANZapine 15 mg Oral Nightly sodium chloride 0.9 % (flush) 5 mL Intravenous BID aspirin EC 81 mg Oral Daily insulin lispro 0-8 Units Subcutaneous TID WC insulin lispro 1-4 Units Subcutaneous TID AC atorvastatin 80 mg Oral QPM Continuous Infusions: PRN Meds:.acetaminophen, sodium chloride 0.9 % (flush), lidocaine, nitroGLYcerin, glucose 40% oral geL OR dextrose 10% OR glucagon Outpatient Medications Current Outpatient Medications Medication Instructions gabapentin (NEURONTIN) 100 mg, 3 TIMES DAILY metFORMIN (GLUCOPHAGE) 500 mg, Oral, 2 TIMES DAILY WITH MEALS naproxen sodium 220 mg Cap Take by mouth. pimozide (ORAP) 2 mg, Oral, 2 TIMES DAILY simvastatin (ZOCOR) 10 mg, NIGHTLY triamcinolone (KENALOG) 0.1 % cream 2 TIMES DAILY Assessment & Plan: Miguel Sanchez is a 67 y.o. male with PMH significant for HFrEF (last known EF 45% in 2019), diabetes, hypertension, and hyperlipidemia who presents from [facility] ED after being redirected from [facility] urgent clinic for one month of progressively worsening shortness of breath and associated chest painoccurring both at rest and on exertion with concern for acute on chronic HFrEF exacerbation, profound CLEM. Creatinine improving today with RHC yesterday demonstrating euvolemia, correlating to his euvolemicphysical exam. Weight is up 2 lbs today, can consider restarting diuresis although he seems to be autodiuresing adequately. Per nephrology, would benefit from a kidney biopsy to elicit the cause of his severe CLEM, as it seems less likely cardiorenal given his RHC results. He will need home servicesupon discharge so will plan to arrange for that, and likely kidney biopsy as an outpatient if he remains stable for dc through the weekend. 01/23/23 Kidney function stabilized although still persistently elevated from baseline. Will plan for kidneybiopsy either outpatient or inpatient, although should not be a barrier to discharge. He will need to hold ASA for at least a week prior, so we will start holding today. We will also hold on initiating diuresis as he continues to be net negative without diuretics. Will have to pay close attention to his weight as it seems to be slightly climbing. #Acute on chronic systolic HFrEF exacerbation (EF 29%) Plan for RHC today GDMT Continue metoprolol succinate 25 mg daily Continue losartan 25 mg daily Diuresis Hold diuresis; auto-diuresing ~1L/day HOLD ASA 81 mg daily (in anticipating for possible kidney biopsy) Atorvastatin 80 mg daily Nitroglycerin 0.4mg PRN for chest pain Electrolyte repletion as needed K > 4, Mg > 1 Telemetry #Stage III CLEM (last known baseline was September 2022 with creatinine of 1.5 and BUN of 19) #Likely cardiorenal syndrome #Consider obstructive uropathy #Consider diabetic nephropathy Hyperphosphatemia today, hold on starting phosphate binder Q4H BMP to monitor creatine Monitor urine output closely Nephrology following Continue losartan 25 mg daily Aim for net even I/O Renal U/S 01/19 shows bilateral pelvicaliectasis concerning for hydro (this is with benedict in place).Renal size is normal bilaterally with normal appearing parenchyma/cortex. Nephrotic range proteinuria Iron studies- Iron 68, TIBC 229, Ferritin 478 Vitamin D/PTH levels - PTH 40, Vit D 9 Urology consulted - maintain benedict catheter 5-7 days followed by TOV Repeat renal U/S in a couple days to confirm resolution of hydronephrosis Continue finasteride and tamsulosin Urology outpatient for further management of possible BPH #Diabetes Holding home metformin Sensitive sliding scale and meal associated lispro #History of hypertension Continue losartan 25 mg daily #Hyperlipidemia Holding home simvastatin 10 mg daily Continue atorvastatin 80 mg daily #History of peripheral neuropathy Continue reduced dose gabapentin 100 mg BID in the context of CLEM #Patient concern for unspecified poisoning Tox screen negative Salicylates and acetaminophen level negative #Schizophrenia - Continue home olanzapine #Routine Diet: Cardiac diet (Give Meds) DVT Prophylaxis: Enoxaparin GI Prophylaxis: Not indicated Code Status: Attempt Cardiopulmonary Resuscitation - Inpatient Dispo: Pending clinical course #Housekeeping: DVT PPx: Heparin GI PPx: Diet: Cardiac diet Lines: Peripheral IV Line - Single Lumen 01/18/23 1900 median cubital vein (antecubital fossa), right 20 gauge (Active) Number of days: 4 Code status: FULL CODE Lindsay Morrison MD Internal Medicine, PGY-2 Cardiology M1-S2, #[id number] 01/23/2023, 7:23 AM Associated attestation - Mendel Luna MD - 01/23/2023 9:44 PM EDT Cardiology Attending Addendum Active Hospital Problems Diagnosis Acute on chronic systolic ACC/AHA stage C congestive heart failure Acute kidney injury Resolved Hospital Problems No resolved problems to display. I have interviewed and examined the patient, reviewed the available data, and have discussed my findings, assessment and plan with the patient and the team on rounds today. I agree with Dr. Morrison's note as below which reflects our discussion. Input by Nephrology consult team much appreciated. Willhold ASA for now for potential renal biopsy. * Camille Shelley, RD - 01/22/2023 1:07 PM EDT Nutrition Consult Note Miguel Sanchez is a 67 y.o. male with PMH significant for HFrEF (last known EF 45% in 2020), diabetes, hypertension, and hyperlipidemia who presents from [facility] ED after being redirected from [facility] urgent clinic for one month of progressively worsening shortness of breath and associated chest painoccurring both at rest and on exertion . Reason for intervention: Education Nutrition Recommendations: Diabetes diet education provided Reviewed food groups and discussed impact of CHO v. protein and fat on BG levels Encouraged intake of complex CHOs and pairing CHO-rich foods with protein and fat Discussed meal patterns that best support blood sugar control Identified low carbohydrate snack ideas Demonstrated carbohydrate counting Reviewed nutrition facts label reading Discussed the role of physical activity and weight control in diabetes management Provided pt with ? Eating for Healthy Blood Sugars & Weight Control? , and ? My Food Plan? Heart healthy diet education provided Reviewed food groups and identified sources of dietary fat, cholesterol, and fiber Discussed the role of dietary fiber in lowering blood cholesterol Reviewed nutrition facts label reading Encouraged reduction in sodium intake and provided ideas on how to accomplish this Reviewed cooking methods that best support heart health Discussed the Mediterranean diet Discussed the role of physical activity and weight control in relation to heart health Provided pt with ???Guidelines for a Heart Healthy Lifestyle?? Provided contact information for follow-up questions Spoke with Miguel at pt request for education on better managing his DM and a heart healthy, consistent CHO diet. Miguel reports poor eating habits, stating he mostly eats junk food out of convenience. Food choices include chips, pastries, frozen meals, orange juice, and >2L soda per day. He will sometimes cook meat, vegetables, and potatoes, but not often. He endorses having a full kitchen and the ability to cook, barriers include motivation and challenges of buying/cooking for 1 person. Hereports his eating patterns are imply continuous eating, all day, typically every hour. He rarely leaves his apartment d/t it being vandalized while he is away and being harassed on the street. He und erstands the need for better dietary patterns given his current medical issues and voiced wanting to make changes moving forward. Discussed consistent eating patterns to best regulate BG, including 3 meals/day plus snacks. Reviewed foods that contain CHOs, his daily CHO needs, and practiced reading nutrition labels and countingcarbs. Discussed importance/role of protein and fiber in the diet and identified foods containing both. Identified sources of dietary fat and cholesterol and discussed how to lower total fat intake, suggesting substitutions for various foods. Discussed the importance of physical activity and weightcontrol and strategized ideas for movement within the confines of his apartment building if he doesn't feel comfortable leaving. Provided Miguel with various handouts containing the above information and answered all follow-up questions. Thanks, Camille Shelley, MS, RD, LD Clinical Nutrition * Sushma Hernandez, OT - 01/22/2023 9:56 AM EDT Occupational Therapy Treatment Note Treatment Number OT: 2 Patient Dx: Miguel Sanchez is a 67 y.o. male with PMH significant for HFrEF (last known EF 45% in 2020), diabetes, hypertension, and hyperlipidemia who presents from [facility] ED after being redirected from [facility] urgent clinic for one month of progressively worsening shortness of breath and associated chest pain occurring both at rest and on exertion with concern for HFrEF exacerbation and CLEM. Social History: Home set up: Pt lives alone in an apartment with elevator access. Bathroom has a tub/shower with DME. PLOF: Pt reports independence with BADL, cooking, cleaning, and medication management, but feels heneeds more assist with cleaning. Someone from the mental health agency provides transportation for shopping and errands and his case folder visits once a week. Pt does not use an AD for functional mobility and is mostly sedentary. DME: grab bars in shower Falls: pt denies falls Precautions/Special Considerations: at risk to fall, bedrest with bathroom privileges Interval History: RHC postponed; rescheduled for today Subjective: I can't keep eating my bad diet, it's not good for my heart. O: Patient seen for skilled OT treatment. Pt demonstrated the following: Cognition: Alert and oriented Pleasant, cooperative Consistently following commands ADL: Assist needed to don/[facility] gown d/t lines Toileting: provided pt with a toilet aid and educated on use d/t pt c/o difficulty managing BM hygiene. Pt trialed AE but found it less effective. Grooming: brushed hair and teeth standing at sink with supervision Functional Mobility: Sit >< stand: supervision to FWW Ambulation: supervision with FWW to/bathroom for ADL AROM/Strength: WFL Vitals/Endurance: pt on RA with SpO2 97%, HR 69. Pain: no c/o pain Education: Pt/family/caregiver education ongoing regarding: Role of occupational therapy/rehabilitation, Adaptive equipment training, ADL, Functional Mobility, Recommendations, and Discharge planning. Staff Communication: Patient status, treatment, and mobility recommendations discussed with nursing/other staff. ASSESSMENT: Pt was seen for OT treatment for continuation of POC. Pt demonstrated increased independence with functional mobility and self-care. He demonstrated ability to ambulate to the bathroom and perform toileting, hygiene and grooming tasks with supervision and encouragement to initiate his ADLs. Pt will benefit from ongoing therapeutic interventions to achieve pt's and therapy goals. Anticipated Discharge Disposition (OT): home with home health Equipment Recommendations: TBD closer to d/c Occupational Therapy Goals: To be achieved by 01/26/23 Pt will demonstrate independence with UB/LB bathing, shower level Pt will dress his LB independently using AE as needed Pt ambulate to the bathroom for ADL with mod I Pt will perform 3 grooming tasks independently in standing at sink Therapy Frequency (OT): 2-4 times/wk Total Minutes, Occupational Therapy: 30 (SCHM x 2; 9:56-10:26) Pager: [phone] Sushma Hernandez OT Occupational Therapy Rehabilitation Department * Deonte Lugo MD - 01/22/2023 7:46 AM EDT Hypertension-Nephrology Inpatient Follow-up Miguel Sanchez [id number] 1955 ID: 67 y.o. old male seen for CLEM. Interval History: Diuretics held yesterday. Cr relatively stable. Confirmed that baseline Cr was 1.5 in September 2022 with outside records. No proteinuria at that time. Physical Examination: Last value 24 Hour Temperature Range Temp: [36.6 ??C (97.9 ??F)-36.8 ??C (98.3 ??F)] 12 Hour Heart Rate Range Heart Rate: [73-74] 24 Hour Blood Pressure Range BP: (126-152)/(75-88) Respiratory Rate Resp: 18 SpO2 SpO2: 98 % Body mass index is 37.81 kg/m??. General: Chronically ill appearing, not in distress, lying comfortably in the exam room. HEENT: EOM intact, sclera clear, mucous membranes moist. CV: S1 & S2 faint but audible I do not appreciate a murmur on exam. Resp: Breathing is comfortable on room air, I do not appreciate crackles. Abd: Soft, non-tender, non-distended. Ext: No edema in the lower extremities. Skin: No rashes or lesions on the exposed skin. Neuro: Alert & oriented, no focal deficits. Psych: Pleasant and calm, conversational attention is intact. finasteride 5 mg Oral Daily tamsulosin 0.4 mg Oral Daily capsaicin Topical (Top) BID heparin (porcine) 7,500 Units Subcutaneous Q8H JAMAL gabapentin 100 mg Oral BID OLANZapine 15 mg Oral Nightly sodium chloride 0.9 % (flush) 5 mL Intravenous BID aspirin EC 81 mg Oral Daily insulin lispro 0-8 Units Subcutaneous TID WC insulin lispro 1-4 Units Subcutaneous TID AC atorvastatin 80 mg Oral QPM No Known Allergies Lab Results Component Value Date CREATININE 5.86 (H) 01/22/2023 CREATININE 5.70 (H) 01/21/2023 CREATININE 5.79 (H) 01/20/2023 CREATININE 5.69 (H) 01/19/2023 CREATININE 5.63 (H) 01/19/2023 ESTGFR 10 (L) 01/22/2023 ESTGFR 10 (L) 01/21/2023 ESTGFR 10 (L) 01/20/2023 ESTGFR 10 (L) 01/19/2023 ESTGFR 10 (L) 01/19/2023 CO2 20 (L) 01/22/2023 CO2 20 (L) 01/21/2023 CO2 20 (L) 01/20/2023 CO2 22 01/19/2023 CO2 21 (L) 01/19/2023 NA 138 01/22/2023 NA 140 01/21/2023 NA 139 01/20/2023 NA 140 01/19/2023 NA 143 01/19/2023 K 4.2 01/22/2023 K 4.2 01/21/2023 K 4.5 01/20/2023 K 4.4 01/19/2023 K 4.4 01/19/2023 Lab Results Component Value Date UPROTCREAT 4.9 01/18/2023 ALBUMIN 4.2 01/18/2023 Lab Results Component Value Date HGB 10.3 (L) 01/22/2023 FERRITIN 478 (H) 01/20/2023 IRONSAT 30 01/20/2023 Lab Results Component Value Date CALCIUM 9.2 01/22/2023 CALCIUM 9.3 01/21/2023 CALCIUM 8.8 01/20/2023 PHOS 5.8 (H) 01/22/2023 PHOS 5.3 (H) 01/21/2023 PHOS 4.7 (H) 01/20/2023 PTH 401 (H) 01/20/2023 25OHVITD 9 (L) 01/20/2023 HA1C 5.7 (H) 01/18/2023 Lab Results Component Value Date C3 126 01/22/2023 C4 31 01/20/2023 Renal U/S 01/19 shows bilateral pelvicaliectasis concerning for hydro (this is with benedict in place).Renal size is normal bilaterally with normal appearing parenchyma/cortex. TTE 01/19 shows reduced EF of 29%, mild to moderate mitral regurgitation, and a small pericardial effusion adjacent to the right atrium. HIV and hepatitis serologies negative. SPEP shows possible paraprotein DOROTEO pending. [place] & [place] light chains elevated however ratio normal. Summary: Miguel Sanchez is 67 y.o. yo male requiring inpatient consultation for CLEM. Medical comorbidities include HLD, HTN, T2DM, and HFrEF (EF 29%). Pt is admitted in the setting of heart failure exacerbation. Cause of CLEM likely multifactorial. His renal imaging showing bilateral pelvicaliectasis and symptoms of incontinence are concerning for overflow incontinence so there was certainly some degree of obstruction. Likely a degree of cardiorenal physiology. Baseline Cr was 1.5 in September and proteinuria appears to be a new phenomenon which has us questioning the underlying etiology (less likely diabeticnephropathy given the timing of onset). # CLEM (Cr 1.5 in September 2022) # Obstructive Nephropathy # HFrEF # Cardiorenal physiology # Anemia - Would aim for even today from a volume standpoint, unless objective data that he is wet. - Agree with right heart cath to better characterize his volume status. - Agree with tamsulosin and finasteride. Agree with benedict and voiding trial as outlined by urology. - Okay to start low dose JOSE ELIAS/ARB for goal directed medical therapy. Discussed this with the primaryteam. This case was discussed with staff speech professor Dr. Morrow. Please contact me at phone: [phone] or pager: [phone] with any questions. Deonte Lugo MD Nephrology Fellow, PGY-4 Associated attestation - Sixto Morrow MD - 01/23/2023 3:09 PM EDT I saw and discussed the patient with the fellow and agree with the assessment plan in his note. Creatinine relatively stable and patient continues to have good urine output despite diuresis holiday. We are able to obtain some baseline information that does demonstrate creatinine 1.5 mg in September 2022. He had urine studies at that time with insignificant proteinuria. Over 4 g per spot in the hospital. No significant edema appreciated and he does not have hypoalbuminemia. This makes primary renal process such as FSGS membranous or minimal-change disease seem unlikely to me. He is currently on aspirin and we will discuss possibility for obtaining renal biopsy. Right heart cath demonstrates near intravascular euvolemia with wedge pressure of 18 mmHg. * Kendy Montes MD - 01/22/2023 6:04 AM EDT Images from the original note were not included. Cardiology Progress Note Patient info: Name: Miguel Sanchez : 1955 PCP: ELSIE Espinoza PCP phone number: [phone] Date of Admission: 01/18/2023 ( Hospital Day 4 days ) Attending:Mendel Luna MD ID: Miguel Sanchez is a 67 y.o. male with PMH significant for HFrEF (last known EF 45% in 2020), diabetes, hypertension, and hyperlipidemia who presents from [facility] ED after being redirected from [facility] urgent clinic for one month of progressively worsening shortness of breath and associated chest pain occurring both at rest and on exertion with concern for HFrEF exacerbation and CLEM. Active Problems: Active Hospital Problems Diagnosis Heart failure Resolved Hospital Problems No resolved problems to display. 24 Hour and Subjective: Yesterday: -Holding diuresis. [facility] going to [facility] but got bumped so plan for tomorrow. Nephro/uro following Overnight: -No acute events overnight This Morning: -Today patient reports he is feeling well. Denies any chest pain or SOB. Vitals Last value Range last 24 hrs Temperature Temp: 36.8 ??C (98.3 ??F) Temp: [36.7 ??C (98 ??F)-36.8 ??C (98.3 ??F)] Heart Rate Heart Rate: 75 Heart Rate: [67-75] Blood Pressure BP: 143/81 BP: (126-152)/(75-87) Art Line BP BP (Arterial Line): -- MAP (NBP): [88 mmHg-103 mmHg] Respiratory Rate Resp: 20 Resp: [16-24] SpO2 SpO2: 96 % SpO2: [96 %-99 %] Oxygen Delivery Oxygen Therapy O2 Device: None (Room air) Reason for Oxygen: Patient currently on room air Objective: Intake/Output Summary (Last 24 hours) at 01/22/2023 0850 Last data filed at 01/22/2023 0800 Gross per 24 hour Intake 375 ml Output 1295 ml Net -920 ml Patient Vitals for the past 168 hrs: Weight 01/22/23 0408 103.1 kg (227 lb 3.2 oz) 01/21/23 0306 108.1 kg (238 lb 6.4 oz) 01/20/23 0345 108.5 kg (239 lb 4.8 oz) 01/18/23 2329 109.8 kg (242 lb) 01/18/23 1735 109.4 kg (241 lb 3.2 oz) Admit wt: 109.41 kg Physical Exam: Gen: in bed in NAD; alert, oriented, conversant HEENT: Anicteric, EOMI intact CV: RRR, no murmurs/rubs/gallops, JVP unable to be assessed due to body habitus Resp: Lung sounds clear, no wheezes/crackles Abd: Abdomen soft, NDNT Ext: 2+ distal pulses, no LE edema Lines/Drains/Airways Lines: Peripheral IV Line - Single Lumen 01/18/23 1900 median cubital vein (antecubital fossa), right 20 gauge (Active) Indication/Daily Review of Necessity fluid therapy intermittent;medication therapy intermittent 01/19/23 2100 Securement catheter stabilization device, secured with 01/19/23 2100 Patency/Maintenance flushed without difficulty;alcohol impregnated cap applied 01/19/23 2100 Phlebitis 0-->no symptoms 01/20/23 035 Infiltration 0-->no symptoms 01/20/23 0354 Labs: Recent Labs 01/22/23 0242 01/21/23 0242 01/20/23 0326 01/19/23 0150 01/18/23 2216 WBC 8.3 8.1 8.1 7.8 6.9 HGB 10.3* 11.1* 10.8* 10.1* 10.1* HCT 30.8* 32.4* 32.5* 30.3* 31.0* PLATELET 183 202 202 173 196 MCV 90.3 90.3 91.8 93.2* 93.9* Recent Labs 01/22/23 0242 01/21/23 0242 01/20/23 0326 01/19/23 1415 01/19/23 1029 01/19/23 0621 01/19/23 0150 01/18/232215 NA 138 140 139 140 143 < > 143 145 CL 104 100 102 102 107 < > 107 109* CO2 20* 20* 20* 22 21* < > 22 Not Perf K 4.2 4.2 4.5 4.4 4.4 < > 4.3 4.8 MAGNESIUM 0.97 0.99 0.95 -- -- -- 0.80 0.87 PHOS 5.8* 5.3* 4.7* -- -- -- 4.3 4.2 CALCIUM 9.2 9.3 8.8 9.3 9.1 < > 8.9 9.2 BUN 79* 72* 67* 59* 60* < > 54* 60* CREATININE 5.86* 5.70* 5.79* 5.69* 5.63* < > 5.50* 5.81* < > = values in this interval not displayed. LFTs Recent Labs 01/18/231915 PROT 7.2 ALBUMIN 4.2 AST 12 ALT 12 ALKPHOS 95 BILITOT 0.7 Coags Recent Labs 01/18/232215 INR 1.3 PT 14.3* PTT 35 Cardiac Enzymes Recent Labs 01/19/23 0150 01/18/231915 CK 70 -- PROBNP -- 11,818* Endocrine Recent Labs 01/18/232215 TSH 2.03 Recent Labs 01/22/23 0752 01/21/23 1841 01/21/23 1557 01/21/23 1132 01/21/23 0938 01/21/23 0805 01/20/23 1945 01/20/23 1638 01/20/23 1614 01/20/23 1133 01/20/23 0724 01/19/23 2133 POCGLU 145 199 125 249* 233* 178 158 96 101 206* 152 112 Heme No results for input(s): LDH, HAPTOGLOBIN, URICACID in the last 168 hours. ABG (Arterial Blood Gas) No results found for: PHART, PO2ART, [id number], [id number] Microbiology: Microbiology Results (Last 30 days) Procedure Component Value Units Date/Time Urine culture [[id number]] Collected: 01/18/232212 Lab Status: Final result Specimen: Indwelling Catheter Urine Updated: 01/19/231842 Urine Culture No growth (Less than 1,000 cfu/ml). Imaging: Results for orders placed or performed during the hospital encounter of 01/18/23 US Retroperitoneal Complete (Exam End: 01/19/2023 8:30 AM) Impression 1. Both kidneys are normal in size and parenchymal thickness but have mild collecting system dilatation. 2. A Benedict catheter is present in an otherwise empty and difficult to evaluate urinary bladder.. Electronically signed by: Jimmie العراقي MD, [facility] ([phone]), at 01/19/2023 8:39 AM Thank you for letting us participate in the care of this patient. If you are a health care provider and have any questions regarding this report, please contact the number above. For patients who have questions, please contact the health rn primary care that requested your imaging first. Jimmie العراقي, Staff Physician Electronically Signed Final Report 01/19/2023 08:47 am TTE 01/19/23: Interpretation Summary Left ventricle is mildly dilated with mildly [...] left ventricular systolic function has further decreased. Inpatient Medications Scheduled Meds: metoprolol succinate XL 25 mg Oral Daily finasteride 5 mg Oral Daily tamsulosin 0.4 mg Oral Daily capsaicin Topical (Top) BID heparin (porcine) 7,500 Units Subcutaneous Q8H JAMAL gabapentin 100 mg Oral BID OLANZapine 15 mg Oral Nightly sodium chloride 0.9 % (flush) 5 mL Intravenous BID aspirin EC 81 mg Oral Daily insulin lispro 0-8 Units Subcutaneous TID WC insulin lispro 1-4 Units Subcutaneous TID AC atorvastatin 80 mg Oral QPM Continuous Infusions: PRN Meds:.acetaminophen, sodium chloride 0.9 % (flush), lidocaine, nitroGLYcerin, glucose 40% oral geL OR dextrose 10% OR glucagon Outpatient Medications Current Outpatient Medications Medication Instructions gabapentin (NEURONTIN) 100 mg, 3 TIMES DAILY metFORMIN (GLUCOPHAGE) 500 mg, Oral, 2 TIMES DAILY WITH MEALS naproxen sodium 220 mg Cap Take by mouth. pimozide (ORAP) 2 mg, Oral, 2 TIMES DAILY simvastatin (ZOCOR) 10 mg, NIGHTLY triamcinolone (KENALOG) 0.1 % cream 2 TIMES DAILY Assessment & Plan: Miguel Sanchez is a 67 y.o. male with PMH significant for HFrEF (last known EF 45% in 2020), diabetes, hypertension, and hyperlipidemia who presents from [facility] ED after being redirected from [facility] for one month of progressively worsening shortness of breath and associated chest painoccurring both at rest and on exertion with concern for acute on chronic HFrEF exacerbation, profound CLEM. LVEF 29%, severely decreased, with normal RV function, no valve disease. Cr 6.0 on baseline of ~1.5, either due to HF, obstructive uropathy, advanced diabetic nephropathy, or a combination. Responsive to IV diuretics, not in distress, with normal oxygen saturation on room air. Possible ischemic cardiomyopathy, but evidence of ACS and no LHC or ischemic evaluation possible at this point due to renal status. 01/22/23 Patient appears euvolemic on exam . Will start metoprolol succinate 25 mg XL and losartan today. Nephro following. Hold diuresis today and aim for net even I/Os. Patient will hopefully get RHC today.If euvolemic and RHC unremarkable, will discuss with nephrology if patient needs to stay in hospital or if he is safe for outpatient management. #Acute on chronic systolic HFrEF exacerbation (EF 29%) Plan for RHC today GDMT Start metoprolol succinate 25 mg XL today Start losartan Diuresis Hold diuresis today ASA 81mg daily Atorvastatin 80 mg daily Nitroglycerin 0.4mg PRN for chest pain Electrolyte repletion as needed K > 4, Mg > 1 Tele #Stage III CLEM (last known baseline was September 2022 with creatinine of 1.5 and BUN of 19) #Likely cardiorenal syndrome #Consider obstructive uropathy #Consider diabetic nephropathy Hyperphosphatemia today, hold on starting phosphate binder Q4H BMP to monitor creatine Monitor urine output closely Nephrology following Start losartan today Aim for net even I/O Renal U/S 01/19 shows bilateral pelvicaliectasis concerning for hydro (this is with benedict in place).Renal size is normal bilaterally with normal appearing parenchyma/cortex. Nephrotic range proteinuria Iron studies- Iron 68, TIBC 229, Ferritin 478 Vitamin D/PTH levels - PTH 40, Vit D 9 Urology consulted - maintain benedict catheter 5-7 days followed by TOV Repeat renal U/S in a couple days to confirm resolution of hydronephrosis Continue finasteride and tamsulosin Urology outpatient for further management of possible BPH #Diabetes Holding home metformin Sensitive sliding scale and meal associated lispro #History of hypertension Not on home antihypertensives Continue to monitor #Hyperlipidemia Holding home simvastatin 10 mg daily, start atorvastatin 80 mg daily #History of peripheral neuropathy Continue reduced dose gabapentin 100 mg BID in the context of CLEM #Patient concern for unspecified poisoning Tox screen negative Salicylates and acetaminophen level negative #Schizophrenia - Continue home olanzapine #Routine Diet: Cardiac diet (Give Meds) DVT Prophylaxis: Enoxaparin GI Prophylaxis: Not indicated Code Status: Attempt Cardiopulmonary Resuscitation - Inpatient Dispo: Pending clinical course #Housekeeping: DVT PPx: Heparin GI PPx: Diet: NPO diet (Give Meds) Lines: Peripheral IV Line - Single Lumen 01/18/23 1900 median cubital vein (antecubital fossa), right 20 gauge (Active) Number of days: 3 Code status: @[email or web address]@ Kendy Montes MD Internal Medicine, PGY-1 Cardiology M1-S2, #[id number] 01/22/2023, 8:50 AM Associated attestation - Mendel Luna MD - 01/22/2023 11:36 PM EDT Cardiology Attending Addendum Active Hospital Problems Diagnosis Acute on chronic systolic ACC/AHA stage C congestive heart failure Acute kidney injury Resolved Hospital Problems No resolved problems to display. I have interviewed and examined the patient, reviewed the available data, and have discussed my findings, assessment and plan with the patient and the team on rounds today. I agree with Dr. Montes's note as below which reflects our discussion. * Sera Mancera, PT - 01/21/2023 12:05 PM EDT Physical Therapy Note Treatment Number PT: 2 Patient profile: Miguel Sanchez is a 67 y.o. male with PMH significant for HFrEF (last known EF 45% in 2019), diabetes, hypertension, and hyperlipidemia who presents from [facility] ED after being redirected from [facility] for one month of progressively worsening shortness of breath and associated chest painoccurring both at rest and on exertion with concern for acute on chronic HFrEF exacerbation, profound CLEM Interval History (per cardiology note 01/21/2023): Yesterday: -Diuresed again with 40 mg IV in the afternoon with decent UOP. Nephrology and urology following. Started finasteride and tamsulosin. Overnight: -Patient reported chronic pain and peripheral neuropathy overnight. Already on dose reduced gabapentin so added tylenol and capsicin cream. This Morning: -Today patient reports he is feeling well. Denies any chest pain or SOB. Social History: Home set-up: Lives alone in a single level apartment in [place], [place] Bathroom Set-up: Tub-shower with a shower chair and grab bars Stairs: Elevator Baseline Mobility: Ambulates without an assistive device. Independent with most I/ADLs, but gets assistance with transportation and errands through mental health agency. Sleeps in a flat bed. Enjoys watching TV. Equipment at home: None Fall history: Denies Precautions/Special Considerations: Full Code Lines: Poli, PIV, Telemetry, Benedict Activity Orders: PT Orders Diet: NPO (cardiac cath planned for PM) Mobility and Positioning Recommendations: Pt. to utilize 1 person assist and front-wheeled walker for ambulation and transfers with nursing. Please encourage up to chair for meal times as able. Pt encouraged to ambulate frequently with staff, getting into the bathroom for toileting and walking out in the deal >/= 3 times daily as able. Subjective: That felt really good regarding ambulating Objective: Patient seen for physical therapy and demonstrated the following: Pain: Denies pain at rest or with activity Vital Signs: At Rest With Activity SpO2 (RA) 97% 95% BP 140/54 (100) mm Hg, supine in bed 128/83 (45) mm Hg, sitting EOB HR 68 bpm 84 bpm Mental Status: alert, oriented to person, place, and time, flat affect, increased time to respond Bed Mobility: Supine to Sit: NA, pt started session sitting in bedside chair Sit to Supine: NA, pt ended session sitting in bedside chair Transfers: Sit to Stand: SBA x1 from bedside chair to front-wheeled walker, use of momentum, verbal cues for hand placement Stand to Sit: SBA x1 from front-wheeled walker to bedside chair, decreased eccentric control Gait: Distance: 300' Device used: Front-wheeled walker Level of assist: CGA x1 + chair follow Gait mechanics: Decreased gait speed, wide MAMIE, short step length/height with minimal foot clearance, forward flexed posture with heavy reliance on BUE Stairs: NA Balance: Sitting Static: Good, supervision Sitting Dynamic: Good, SBAx1 Standing Static: Good with a front-wheeled walker, SBAx1 Standing Dynamic/Gait: Fair+ with a front-wheeled walker, relatively steady gait, no LOB, CGA x1 Therapeutic Exercise: NA Education: Patient has been educated on bed mobility, transfers, gait, assistive device use/technique, balance, activity pacing/energy conservation, safety, and role of therapy and verbalizes and demonstrates understanding. Patient status, treatment, and mobility recommendations discussed with nursing. Pt left in bedside recliner chair, with all needs met, and with call mcbride in reach following visit. Assessment: Miguel Sanchez was seen today for physical therapy treatment session for continuation of POC. Pt agreeable and motivated to participate in PT. Pt ambulated ~300' around the unit with the FWW with relatively steady gait and stable vitals. Recommend pt continue to use the FWW at this time to maximize safety and mobility. Based on current presentation, recommend pt discharge home with home health services and intermittent check-ins. Pt will benefit from 1-2 more therapy sessions while in the acute care setting to improve overall mobility and determine appropriate assistive device. Discharge Recommendations: Based on the current findings, Anticipated Discharge Disposition (PT): home with home health, home with daily check in when medically ready for hospital discharge. Discharge recommendation is based on the patient's current physical impairments, prior functional status, potential to return to prior level of function, patient motivation, reported home support, potential for functional gains, current level of endurance, reported home environment and anticipated trajectory of progress and may change based on patient progress during this hospitalization. Consult Recommendations: No other consults recommended at this time. Equipment needs: Anticipated Equipment Needs at Discharge (PT): walker, front wheeled Goals: To be achieved by 02/04/2023: Pt. to demonstrate knowledge of safety limitations and precautions and will appropriately request assistance for functional activities and to mobilize. Pt. to demonstrate understanding of appropriate therapeutic exercises. Pt. to perform bed mobility with supervision with HOB flat. Pt. to perform sit<>stand transfers with modified independence using the least restrictive assistive device . Pt. to ambulate 75 feet with modified independence using the least restrictive assistive device . Pt will tolerate progression towards upright with stable vital signs. Plan: Therapy Frequency (PT): 1-2 more times for balance training, bed mobility training, gait training, patient/family education, strengthening, and transfer training as outlined in initial evaluation. Patient agrees with plan as stated. Time IN/OUT: 11:46-12:05 Total Minutes, Physical Therapy: 19 Billing Code: Gait x1 Sera Mancera, PT Pager: [phone] Physical Therapy Inpatient Rehabilitation Department * Deonte Lugo MD - 01/21/2023 7:44 AM EDT Hypertension-Nephrology Inpatient Follow-up Miguel Sanchez [id number] 1955 ID: 67 y.o. old male seen for CLEM. Interval History: Diuresed again yesterday. Cr is relatively stable. Has started both tamsulosin and finasteride for the obstruction. Physical Examination: Last value 24 Hour Temperature Range Temp: [36.5 ??C (97.7 ??F)-37.1 ??C (98.7 ??F)] 12 Hour Heart Rate Range Heart Rate: [72-73] 24 Hour Blood Pressure Range BP: (120-145)/(69-89) Respiratory Rate Resp: 20 SpO2 SpO2: 99 % Body mass index is 39.67 kg/m??. General: Chronically ill appearing, not in distress, lying comfortably in the exam room. HEENT: EOM intact, sclera clear, mucous membranes moist. CV: S1 & S2 faint but audible I do not appreciate a murmur on exam. Resp: Breathing is comfortable on room air, I do not appreciate crackles. Abd: Soft, non-tender, non-distended. Ext: No edema in the lower extremities. Skin: No rashes or lesions on the exposed skin. Neuro: Alert & oriented, no focal deficits. Psych: Pleasant and calm, conversational attention is intact. finasteride 5 mg Oral Daily tamsulosin 0.4 mg Oral Daily capsaicin Topical (Top) BID heparin (porcine) 7,500 Units Subcutaneous Q8H JAMAL gabapentin 100 mg Oral BID OLANZapine 15 mg Oral Nightly sodium chloride 0.9 % (flush) 5 mL Intravenous BID aspirin EC 81 mg Oral Daily insulin lispro 0-8 Units Subcutaneous TID WC insulin lispro 1-4 Units Subcutaneous TID AC atorvastatin 80 mg Oral QPM No Known Allergies Lab Results Component Value Date CREATININE 5.70 (H) 01/21/2023 CREATININE 5.79 (H) 01/20/2023 CREATININE 5.69 (H) 01/19/2023 CREATININE 5.63 (H) 01/19/2023 CREATININE 5.52 (H) 01/19/2023 ESTGFR 10 (L) 01/21/2023 ESTGFR 10 (L) 01/20/2023 ESTGFR 10 (L) 01/19/2023 ESTGFR 10 (L) 01/19/2023 ESTGFR 11 (L) 01/19/2023 CO2 20 (L) 01/21/2023 CO2 20 (L) 01/20/2023 CO2 22 01/19/2023 CO2 21 (L) 01/19/2023 CO2 21 (L) 01/19/2023 NA 140 01/21/2023 NA 139 01/20/2023 NA 140 01/19/2023 NA 143 01/19/2023 NA 143 01/19/2023 K 4.2 01/21/2023 K 4.5 01/20/2023 K 4.4 01/19/2023 K 4.4 01/19/2023 K 4.3 01/19/2023 Lab Results Component Value Date UPROTCREAT 4.9 01/18/2023 ALBUMIN 4.2 01/18/2023 Lab Results Component Value Date HGB 11.1 (L) 01/21/2023 FERRITIN 478 (H) 01/20/2023 IRONSAT 30 01/20/2023 Lab Results Component Value Date CALCIUM 9.3 01/21/2023 CALCIUM 8.8 01/20/2023 CALCIUM 9.3 01/19/2023 PHOS 5.3 (H) 01/21/2023 PHOS 4.7 (H) 01/20/2023 PHOS 4.3 01/19/2023 PTH 401 (H) 01/20/2023 25OHVITD 9 (L) 01/20/2023 HA1C 5.7 (H) 01/18/2023 Lab Results Component Value Date C4 31 01/20/2023 Renal U/S 01/19 shows bilateral pelvicaliectasis concerning for hydro (this is with benedict in place).Renal size is normal bilaterally with normal appearing parenchyma/cortex. TTE 01/19 shows reduced EF of 29%, mild to moderate mitral regurgitation, and a small pericardial effusion adjacent to the right atrium. HIV and hepatitis serologies negative. Summary: Miguel Sanchez is 67 y.o. yo male requiring inpatient consultation for CLEM. Medical comorbidities include HLD, HTN, T2DM, and HFrEF (EF 29%). Pt is admitted in the setting of heart failure exacerbation. Cause of CLEM likely multifactorial. His renal imaging showing bilateral pelvicaliectasis and symptoms of incontinence are concerning for overflow incontinence. His appears euvolemic today and Cr bumped after diuretics yesterday which suggests we are close to his dry weight. Normal size kidneys withnephrotic range proteinuria point most strongly towards diabetic nephropathy however also includes a paraproteinuria given age or something inflammatory like SLE or a vasculitis. # CLEM (Cr 1.5 in September 2022) # Obstructive Nephropathy # HFrEF # Cardiorenal physiology # Anemia - Would aim for even today from a volume standpoint, unless objective data that he is wet. - Agree with tamsulosin and finasteride. Agree with benedict and voiding trial as outlined by urology. - Blood pressure is slightly elevated but I would hold on additional anti- hypertensives for the time being This case was discussed with staff speech professor Dr. Morrow. Please contact me at phone: [phone] or pager: [phone] with any questions. Deonte Lugo MD Nephrology Fellow, PGY-4 Associated attestation - Sixto Morrow MD - 01/22/2023 8:19 AM EDT I saw and discussed the patient with the fellow and agree with the assessment plan of this note. Creatinine apparently has plateaued albeit at a very low level. Degree of acute versus chronic insufficiency unclear at this time as we have little baseline information however reportedly creatinine around 1.5 approximately 3 months ago. It is possible that subacute obstruction is resulted in significant deterioration in that timeframe. He is also anticipating potential cardiac catheterization givennew wall motion abnormalities and in that setting would hold back diuretics if able. Risk of further deterioration in kidney function is high at this point * Chris Lim MD - 01/21/2023 6:02 AM EDT Images from the original note were not included. Cardiology Progress Note Patient info: Name: Miguel Sanchez : 1955 PCP: ELSIE Espinoza PCP phone number: [phone] Date of Admission: 01/18/2023 ( Hospital Day 3 days ) Attending:Chris Lim MD ID: Miguel Sanchez is a 67 y.o. male with PMH significant for HFrEF (last known EF 45% in 2019), diabetes, hypertension, and hyperlipidemia who presents from [facility] ED after being redirected from [facility] urgent clinic for one month of progressively worsening shortness of breath and associated chest pain occurring both at rest and on exertion. Active Problems: Active Hospital Problems Diagnosis Heart failure Resolved Hospital Problems No resolved problems to display. 24 Hour and Subjective: Yesterday: -Diuresed again with 40 mg IV in the afternoon with decent UOP. Nephrology and urology following. Started finasteride and tamsulosin. Overnight: -Patient reported chronic pain and peripheral neuropathy overnight. Already on dose reduced gabapentin so added tylenol and capsicin cream. This Morning: -Today patient reports he is feeling well. Denies any chest pain or SOB. Vitals Last value Range last 24 hrs Temperature Temp: 36.7 ??C (98 ??F) Temp: [36.5 ??C (97.7 ??F)-37.1 ??C (98.7 ??F)] Heart Rate Heart Rate: 72 Heart Rate: [63-73] Blood Pressure BP: 127/80 BP: (120-145)/(69-89) Art Line BP BP (Arterial Line): -- MAP (NBP): [85 mmHg-104 mmHg] Respiratory Rate Resp: 20 Resp: [19-20] SpO2 SpO2: 99 % SpO2: [95 %-99 %] Oxygen Delivery Oxygen Therapy O2 Device: None (Room air) Reason for Oxygen: Patient currently on room air Objective: Intake/Output Summary (Last 24 hours) at 01/21/2023 0602 Last data filed at 01/21/2023 0313 Gross per 24 hour Intake 955 ml Output 2650 ml Net -1695 ml Patient Vitals for the past 168 hrs: Weight 01/21/23 0306 108.1 kg (238 lb 6.4 oz) 01/20/23 0345 108.5 kg (239 lb 4.8 oz) 01/18/23 2329 109.8 kg (242 lb) 01/18/23 1735 109.4 kg (241 lb 3.2 oz) Admit wt: 109.41 kg Physical Exam: Gen: in bed in NAD; alert, oriented, conversant HEENT: Anicteric, EOMI intact CV: RRR, no murmurs/rubs/gallops, JVP unable to be assessed due to body habitus Resp: Lung sounds clear, no wheezes/crackles Abd: Abdomen soft, NDNT Ext: 2+ distal pulses, no LE edema Lines/Drains/Airways Lines: Peripheral IV Line - Single Lumen 01/18/23 1900 median cubital vein (antecubital fossa), right 20 gauge (Active) Indication/Daily Review of Necessity fluid therapy intermittent;medication therapy intermittent 01/19/232099 Securement catheter stabilization device, secured with 01/19/232099 Patency/Maintenance flushed without difficulty;alcohol impregnated cap applied 07/25/23 2100 Phlebitis 0-->no symptoms 01/20/23 035 Infiltration 0-->no symptoms 01/20/23 035 Labs: Recent Labs 01/21/23 02401/20/23 03201/19/23 01501/18/23221501/18/231915 WBC 8.1 8.1 7.8 6.9 7.2 HGB 11.1* 10.8* 10.1* 10.1* 10.1* HCT 32.4* 32.5* 30.3* 31.0* 30.1* PLATELET 202 202 173 196 183 MCV 90.3 91.8 93.2* 93.9* 92.9 Recent Labs 01/21/23 0242 01/20/23 0326 01/19/23 1415 01/19/23 1029 01/19/23 0601/19/2314901/18/232215 NA 140 139 140 143 143 143 145 CL 100 102 102 107 107 107 109* CO2 20* 20* 22 21* 21* 22 Not Perf K 4.2 4.5 4.4 4.4 4.3 4.3 4.8 MAGNESIUM 0.99 0.95 -- -- -- 0.80 0.87 PHOS 5.3* 4.7* -- -- -- 4.3 4.2 CALCIUM 9.3 8.8 9.3 9.1 8.9 8.9 9.2 BUN 72* 67* 59* 60* 58* 54* 60* CREATININE 5.70* 5.79* 5.69* 5.63* 5.52* 5.50* 5.81* LFTs Recent Labs 01/18/231915 PROT 7.2 ALBUMIN 4.2 AST 12 ALT 12 ALKPHOS 95 BILITOT 0.7 Coags Recent Labs 01/18/232215 INR 1.3 PT 14.3* PTT 35 Cardiac Enzymes Recent Labs 01/19/23 0150 01/18/231915 CK 70 -- PROBNP -- 11,818* Endocrine Recent Labs 01/18/232215 TSH 2.03 Recent Labs 01/20/23 1945 01/20/23 1638 01/20/23 1614 01/20/23 1133 01/20/23 0724 01/19/23 2133 01/19/23 1637 01/19/23 1131 01/19/23 0800 01/19/23 0742 01/19/23 0146 POCGLU 158 96 101 206* 152 112 175 96 92 87 75 Heme No results for input(s): LDH, HAPTOGLOBIN, URICACID in the last 168 hours. ABG (Arterial Blood Gas) No results found for: PHART, PO2ART, NEP1XXY, [id number] Microbiology: Microbiology Results (Last 30 days) Procedure Component Value Units Date/Time Urine culture [[id number]] Collected: 01/18/232212 Lab Status: Final result Specimen: Indwelling Catheter Urine Updated: 01/19/231842 Urine Culture No growth (Less than 1,000 cfu/ml). Imaging: Results for orders placed or performed during the hospital encounter of 01/18/23 US Retroperitoneal Complete (Exam End: 01/19/2023 8:30 AM) Impression 1. Both kidneys are normal in size and parenchymal thickness but have mild collecting system dilatation. 2. A Benedict catheter is present in an otherwise empty and difficult to evaluate urinary bladder.. Electronically signed by: Jimmie العراقي MD, [facility] ([phone]), at 01/19/2023 8:39 AM Thank you for letting us participate in the care of this patient. If you are a health care provider and have any questions regarding this report, please contact the number above. For patients who have questions, please contact the health rn primary care that requested your imaging first. Jimmie العراقي, Staff Physician Electronically Signed Final Report 01/19/2023 08:47 am TTE 01/19/23: Interpretation Summary Left ventricle is mildly dilated with mildly [...] left ventricular systolic function has further decreased. Inpatient Medications Scheduled Meds: finasteride 5 mg Oral Daily tamsulosin 0.4 mg Oral Daily capsaicin Topical (Top) BID heparin (porcine) 7,500 Units Subcutaneous Q8H JAMAL gabapentin 100 mg Oral BID OLANZapine 15 mg Oral Nightly sodium chloride 0.9 % (flush) 5 mL Intravenous BID aspirin EC 81 mg Oral Daily insulin lispro 0-8 Units Subcutaneous TID WC insulin lispro 1-4 Units Subcutaneous TID AC atorvastatin 80 mg Oral QPM Continuous Infusions: PRN Meds:.acetaminophen, sodium chloride 0.9 % (flush), lidocaine, nitroGLYcerin, glucose 40% oral geL OR dextrose 10% OR glucagon Outpatient Medications Current Outpatient Medications Medication Instructions gabapentin (NEURONTIN) 100 mg, 3 TIMES DAILY metFORMIN (GLUCOPHAGE) 500 mg, Oral, 2 TIMES DAILY WITH MEALS naproxen sodium 220 mg Cap Take by mouth. pimozide (ORAP) 2 mg, Oral, 2 TIMES DAILY simvastatin (ZOCOR) 10 mg, NIGHTLY triamcinolone (KENALOG) 0.1 % cream 2 TIMES DAILY Assessment & Plan: Miguel Sanchez is a 67 y.o. male with PMH significant for HFrEF (last known EF 45% in 2019), diabetes, hypertension, and hyperlipidemia who presents from [facility] ED after being redirected from [facility] urgent clinic for one month of progressively worsening shortness of breath and associated chest painoccurring both at rest and on exertion with concern for acute on chronic HFrEF exacerbation, profound CLEM. LVEF 29%, severely decreased, with normal RV function, no valve disease. Cr 6.0 on baseline of ~1.5, either due to HF, obstructive uropathy, advanced diabetic nephropathy, or a combination. Res ponsive to IV diuretics, not in distress, with normal oxygen saturation on room air. 01/21/23 Patient appears euvolemic on exam . Hold diuresis today and aim for net even I/Os. Patient will getRHC today. If euvolemic and RHC unremarkable, will discuss with nephrology if patient needs to stayin hospital or if he is safe for outpatient management. #Acute on chronic systolic HFrEF exacerbation (EF 29%) Plan for RHC today ASA 81mg daily Atorvastatin 80 mg daily Nitroglycerin 0.4mg PRN for chest pain Hold diuresis today Consider initiation of GDMT once stabilized Electrolyte repletion as needed K > 4, Mg > 1 Tele #Stage III CLEM (last known baseline was September 2022 with creatinine of 1.5 and BUN of 19) #Likely cardiorenal syndrome #Consider obstructive uropathy #Consider diabetic nephropathy Q4H BMP to monitor creatine Monitor urine output closely Nephrology following Aim for net even I/O Renal U/S 01/19 shows bilateral pelvicaliectasis concerning for hydro (this is with benedict in place).Renal size is normal bilaterally with normal appearing parenchyma/cortex. Nephrotic range proteinuria Iron studies- Iron 68, TIBC 229, Ferritin 478 Vitamin D/PTH levels - PTH 40, Vit D 9 Urology consulted - maintain benedict catheter 5-7 days followed by TOV Repeat renal U/S in a couple days to confirm resolution of hydronephrosis Continue finasteride and tamsulosin Urology outpatient for further management of possible BPH #Diabetes Holding home metformin Sensitive sliding scale and meal associated lispro #History of hypertension Not on home antihypertensives Continue to monitor #Hyperlipidemial Holding home simvastatin 10 mg daily, start atorvastatin 80 mg daily #History of peripheral neuropathy Continue reduced dose gabapentin 100 mg BID in the context of CLEM #Patient concern for unspecified poisoning Tox screen negative Salicylates and acetaminophen level negative #Schizophrenia - Continue home olanzapine #Routine Diet: Cardiac diet (Give Meds) DVT Prophylaxis: Enoxaparin GI Prophylaxis: Not indicated Code Status: Attempt Cardiopulmonary Resuscitation - Inpatient Dispo: Pending clinical course #Housekeeping: DVT PPx: Heparin GI PPx: Diet: Cardiac diet 60/60/75 CHO counting level 2 Lines: Peripheral IV Line - Single Lumen 01/18/23 1900 median cubital vein (antecubital fossa), right 20 gauge (Active) Number of days: 2 Code status: @CODESTATUS@ Kendy Montes MD Internal Medicine, PGY-1 Cardiology M1-S1, #2761 Cardiology M1-S2, #6589 01/21/2023, 6:02 AM Cardiology Staff Addendum Miguel Sanchez is a 67 y.o. male whom I saw today with Dr. Montes. I have personally interviewed and examined the patient and reviewed appropriate data, including labs, ECGs, and other diagnostic studies.I agree with the principal findings documented above, with additions and exceptions as below. The assessment and plan were formulated in discussion with me. Responding to IV diuresis, net out 6 L since admission, but Cr remains markedly elevated at 5.7, essentially unchanged from admission. Appreciate Nephrology and Urology involvement. For RHC today to assess hemodynamics. Possible ischemic cardiomyopathy, but evidence of ACS and no LHC or ischemic evaluation possible at this point due to renal status. Chris Lim MD, WALLACE, FACC, FACP, FASE Cardiovascular Medicine * Deonte Lugo MD - 01/20/2023 7:32 AM EDT Hypertension-Nephrology Inpatient Follow-up Miguel Sanchez [id number] 1955 ID: 67 y.o. old male seen for CLEM. Interval History: Diuresed well again yesterday, Cr bumped again. He does not feel SOB or edematous. No pressing questions or concerns for our team today. Physical Examination: Last value 24 Hour Temperature Range Temp: [36.7 ??C (98 ??F)-37 ??C (98.6 ??F)] 12 Hour Heart Rate Range Heart Rate: [66-68] 24 Hour Blood Pressure Range BP: (137-159)/(77-94) Respiratory Rate Resp: 20 SpO2 SpO2: 96 % Body mass index is 39.82 kg/m??. General: Chronically ill appearing, not in distress, lying comfortably in the exam room. HEENT: EOM intact, sclera clear, mucous membranes moist. CV: S1 & S2 faint but audible I do not appreciate a murmur on exam. Resp: Breathing is comfortable on room air, I do not appreciate crackles. Abd: Soft, non-tender, non-distended. Ext: No edema in the lower extremities. Skin: No rashes or lesions on the exposed skin. Neuro: Alert & oriented, no focal deficits. Psych: Pleasant and calm, conversational attention is intact. heparin (porcine) 7,500 Units Subcutaneous Q8H JAMAL gabapentin 100 mg Oral BID OLANZapine 15 mg Oral Nightly sodium chloride 0.9 % (flush) 5 mL Intravenous BID aspirin EC 81 mg Oral Daily insulin lispro 0-8 Units Subcutaneous TID WC insulin lispro 1-4 Units Subcutaneous TID AC atorvastatin 80 mg Oral QPM No Known Allergies Lab Results Component Value Date CREATININE 5.79 (H) 01/20/2023 CREATININE 5.69 (H) 01/19/2023 CREATININE 5.63 (H) 01/19/2023 CREATININE 5.52 (H) 01/19/2023 CREATININE 5.50 (H) 01/19/2023 ESTGFR 10 (L) 01/20/2023 ESTGFR 10 (L) 01/19/2023 ESTGFR 10 (L) 01/19/2023 ESTGFR 11 (L) 01/19/2023 ESTGFR 11 (L) 01/19/2023 CO2 20 (L) 01/20/2023 CO2 22 01/19/2023 CO2 21 (L) 01/19/2023 CO2 21 (L) 01/19/2023 CO2 22 01/19/2023 NA 139 01/20/2023 NA 140 01/19/2023 NA 143 01/19/2023 NA 143 01/19/2023 NA 143 01/19/2023 K 4.5 01/20/2023 K 4.4 01/19/2023 K 4.4 01/19/2023 K 4.3 01/19/2023 K 4.3 01/19/2023 Lab Results Component Value Date UPROTCREAT 4.9 01/18/2023 ALBUMIN 4.2 01/18/2023 Lab Results Component Value Date HGB 10.8 (L) 01/20/2023 FERRITIN 478 (H) 01/20/2023 IRONSAT 30 01/20/2023 Lab Results Component Value Date CALCIUM 8.8 01/20/2023 CALCIUM 9.3 01/19/2023 CALCIUM 9.1 01/19/2023 PHOS 4.7 (H) 01/20/2023 PHOS 4.3 01/19/2023 PHOS 4.2 01/18/2023 PTH 401 (H) 01/20/2023 25OHVITD 9 (L) 01/20/2023 HA1C 5.7 (H) 01/18/2023 Renal U/S 01/19 shows bilateral pelvicaliectasis concerning for hydro (this is with benedict in place).Renal size is normal bilaterally with normal appearing parenchyma/cortex. TTE 01/19 shows reduced EF of 29%, mild to moderate mitral regurgitation, and a small pericardial effusion adjacent to the right atrium. Summary: Miguel Sanchez is 67 y.o. yo male requiring inpatient consultation for CLEM. Medical comorbidities include HLD, HTN, T2DM, and HFrEF (EF 29%). Pt is admitted in the setting of heart failure exacerbation. Cause of CLEM likely multifactorial. His renal imaging showing bilateral pelvicaliectasis and symptoms of incontinence are concerning for overflow incontinence. His appears euvolemic today and Cr bumped after diuretics yesterday which suggests we are close to his dry weight. Normal size kidneys withnephrotic range proteinuria point most strongly towards diabetic nephropathy however also includes a paraproteinuria given age or something inflammatory like SLE or a vasculitis. # CLEM (Cr 1.5 in September 2022) # Obstructive Nephropathy # HFrEF # Cardiorenal physiology # Anemia - Would aim for even today from a volume standpoint. Weight is 108.5 kg today, I would consider this his dry weight. - Would recommend consulting/[facility] urology for help with obstruction as he may need a benedict catheter trial v.s. another intervention? He may also be a candidate for finasteride or tamsulosin but I would opt for their input. Would keep the benedict catheter in place for now. - Blood pressure is slightly elevated but I would hold on additional anti- hypertensives for the time being - Please note that I've added C3, C4, SPEP, UPEP, and serum free light chains onto previously drawnlabs. - Please order HIV and hepatitis serologies This case was discussed with staff speech professor Dr. Morrow and the patient's primary team. Please contact me at phone: [phone] or pager: [phone] with any questions. Deonte Lugo MD Nephrology Fellow, PGY-4 Associated attestation - Sixto Morrow MD - 01/20/2023 4:58 PM EDT I saw and discussed the patient with the fellow and I agree with the assessment plan in his note. CLEM on presumed CKD. Nephrotic range proteinuria however not nephrotic syndrome by definition. Creatinine appears to have plateaued with ongoing diuresis. Patient is breathing well on room air does notappear significantly volume overloaded. Would defer to cardiology whether further diuresis would benefit the Starling curve, but would favor diuretic holiday if kidney function only consideration. Suspect patient has had ongoing obstructive process given difficulty with Benedict insertion as well as the appearance of the bladder reported an ultrasound. He may benefit from neurological consult. Suspec t proteinuric process likely diabetic in nature however I agree with the secondary glomerular work-up as recommended in fellow's note. * Chris Lim MD - 01/20/2023 6:05 AM EDT Images from the original note were not included. Cardiology Progress Note Patient info: Name: Miguel Sanchez : 1955 PCP: Reina Alcala APRN (Inactive) PCP phone number: [phone] Date of Admission: 01/18/2023 ( Hospital Day 2 days ) Attending:Chris Lim MD ID: Miguel Sanchez is a 67 y.o. male with PMH significant for HFrEF (last known EF 45% in 2020), diabetes, hypertension, and hyperlipidemia who presents from [facility] ED after being redirected from [facility] urgent clinic for one month of progressively worsening shortness of breath and associated chest pain occurring both at rest and on exertion. Active Problems: Active Hospital Problems Diagnosis Heart failure Resolved Hospital Problems No resolved problems to display. 24 Hour and Subjective: Yesterday: -Kidney function is stable but still impaired. Waiting for nephro recs. Diuresed again with 80mg IVin the afternoon with decent UOP. His renal imaging showed bilateral pelvicaliectasis and symptoms of incontinence are concerning for overflow incontinence Overnight: -Patient had 3 L UOP in past 24 hours. Mg repleted. Cr uptrending 5.69 -> 5.79. This Morning: -Today patient reports he is feeling well. Denies any chest pain or SOB. Reports some burning with urination. Vitals Last value Range last 24 hrs Temperature Temp: 37 ??C (98.6 ??F) Temp: [36.7 ??C (98 ??F)-37 ??C (98.6 ??F)] Heart Rate Heart Rate: 68 Heart Rate: [61-68] Blood Pressure BP: 145/86 BP: (137-159)/(77-94) Art Line BP BP (Arterial Line): -- MAP (NBP): [96 mmHg-109 mmHg] Respiratory Rate Resp: 20 Resp: [17-20] SpO2 SpO2: 96 % SpO2: [95 %-98 %] Oxygen Delivery Oxygen Therapy O2 Device: None (Room air) Reason for Oxygen: Patient currently on room air Objective: Intake/Output Summary (Last 24 hours) at 01/20/2023 0605 Last data filed at 01/20/2023 0400 Gross per 24 hour Intake 560 ml Output 3300 ml Net -2740 ml Patient Vitals for the past 168 hrs: Weight 01/20/23 0345 108.5 kg (239 lb 4.8 oz) 01/18/23 2329 109.8 kg (242 lb) 01/18/23 1735 109.4 kg (241 lb 3.2 oz) Admit wt: 109.41 kg Physical Exam: Gen: in bed in NAD; alert, oriented, conversant HEENT: Anicteric, EOMI intact CV: RRR, no murmurs/rubs/gallops, JVP unable to be assessed due to body habitus Resp: Lung sounds clear, no wheezes/crackles Abd: Abdomen soft, NDNT Ext: 2+ distal pulses, 1+ LE edema Lines/Drains/Airways Lines: Peripheral IV Line - Single Lumen 01/18/23 1900 median cubital vein (antecubital fossa), right 20 gauge (Active) Indication/Daily Review of Necessity fluid therapy intermittent;medication therapy intermittent 01/19/23 2100 Securement catheter stabilization device, secured with 01/19/23 2100 Patency/Maintenance flushed without difficulty;alcohol impregnated cap applied 01/19/23 2100 Phlebitis 0-->no symptoms 01/20/23 0354 Infiltration 0-->no symptoms 01/20/23 0354 Labs: Recent Labs 01/20/23 0326 01/19/23 0150 01/18/23 2216 01/18/23 1916 WBC 8.1 7.8 6.9 7.2 HGB 10.8* 10.1* 10.1* 10.1* HCT 32.5* 30.3* 31.0* 30.1* PLATELET 202 173 196 183 MCV 91.8 93.2* 93.9* 92.9 Recent Labs 01/20/23 0326 01/19/23 1415 01/19/23 1029 01/19/23 0621 01/19/23 0150 01/18/232215 NA 139 140 143 143 143 145 CL 102 102 107 107 107 109* CO2 20* 22 21* 21* 22 Not Perf K 4.5 4.4 4.4 4.3 4.3 4.8 MAGNESIUM 0.95 -- -- -- 0.80 0.87 PHOS 4.7* -- -- -- 4.3 4.2 CALCIUM 8.8 9.3 9.1 8.9 8.9 9.2 BUN 67* 59* 60* 58* 54* 60* CREATININE 5.79* 5.69* 5.63* 5.52* 5.50* 5.81* LFTs Recent Labs 01/18/231915 PROT 7.2 ALBUMIN 4.2 AST 12 ALT 12 ALKPHOS 95 BILITOT 0.7 Coags Recent Labs 01/18/232215 INR 1.3 PT 14.3* PTT 35 Cardiac Enzymes Recent Labs 01/19/23 0150 01/18/231915 CK 70 -- PROBNP -- 11,818* Endocrine Recent Labs 01/18/232215 TSH 2.03 Recent Labs 01/19/23 2133 01/19/23 1637 01/19/23 1131 01/19/23 0800 01/19/23 0742 01/19/23 0146 POCGLU 112 175 96 92 87 75 Heme No results for input(s): LDH, HAPTOGLOBIN, URICACID in the last 168 hours. ABG (Arterial Blood Gas) No results found for: PHART, PO2ART, TQX4WHA, RSX9LBR Microbiology: Microbiology Results (Last 30 days) Procedure Component Value Units Date/Time Urine culture [[id number]] Collected: 01/18/232212 Lab Status: Final result Specimen: Indwelling Catheter Urine Updated: 01/19/231842 Urine Culture No growth (Less than 1,000 cfu/ml). Imaging: Results for orders placed or performed during the hospital encounter of 01/18/23 US Retroperitoneal Complete (Exam End: 01/19/2023 8:30 AM) Impression 1. Both kidneys are normal in size and parenchymal thickness but have mild collecting system dilatation. 2. A Benedict catheter is present in an otherwise empty and difficult to evaluate urinary bladder.. Electronically signed by: Jimmie العراقي MD, [facility] ([phone]), at 01/19/2023 8:39 AM Thank you for letting us participate in the care of this patient. If you are a health care provider and have any questions regarding this report, please contact the number above. For patients who have questions, please contact the health rn primary care that requested your imaging first. Jimmie العراقي, Staff Physician Electronically Signed Final Report 01/19/2023 08:47 am TTE 01/19/23: Interpretation Summary Left ventricle is mildly dilated with mildly [...] left ventricular systolic function has further decreased. Inpatient Medications Scheduled Meds: magnesium sulfate 1 g Intravenous Once heparin (porcine) 7,500 Units Subcutaneous Q8H JAMAL gabapentin 100 mg Oral BID OLANZapine 15 mg Oral Nightly sodium chloride 0.9 % (flush) 5 mL Intravenous BID aspirin EC 81 mg Oral Daily insulin lispro 0-8 Units Subcutaneous TID WC insulin lispro 1-4 Units Subcutaneous TID AC atorvastatin 80 mg Oral QPM Continuous Infusions: PRN Meds:.sodium chloride 0.9 % (flush), lidocaine, nitroGLYcerin, glucose 40% oral geL OR dextrose 10% OR glucagon Outpatient Medications Current Outpatient Medications Medication Instructions gabapentin (NEURONTIN) 100 mg, 3 TIMES DAILY metFORMIN (GLUCOPHAGE) 500 mg, Oral, 2 TIMES DAILY WITH MEALS naproxen sodium 220 mg Cap Take by mouth. pimozide (ORAP) 2 mg, Oral, 2 TIMES DAILY simvastatin (ZOCOR) 10 mg, NIGHTLY triamcinolone (KENALOG) 0.1 % cream 2 TIMES DAILY Assessment & Plan: Miguel Sanchez is a 67 y.o. male with PMH significant for HFrEF (last known EF 45% in 2019), diabetes, hypertension, and hyperlipidemia who presents from [facility] ED after being redirected from [facility] urgent clinic for one month of progressively worsening shortness of breath and associated chest painoccurring both at rest and on exertion with concern for acute on chronic HFrEF exacerbation, profound CLEM. LVEF 29%, severely decreased, with normal RV function, no valve disease. Cr 6.0 on baseline of ~1.5, either due to HF, obstructive uropathy, advanced diabetic nephropathy, or a combination. Res ponsive to IV diuretics, not in distress, with normal oxygen saturation on room air. 01/20/23: Patient reassuringly afebrile and hemodynamically stable. Volume status difficult to assess on exam. Had good UO with IV lasix 80mg, will decrease to IV lasix 40mgmg today. Consult urology for help with obstruction. Will start finasteride today. #Acute on chronic systolic HFrEF exacerbation (EF 29%) ASA 81mg daily Atorvastatin 80 mg daily Nitroglycerin 0.4mg PRN for chest pain Decrease diuresis with IV Lasix 40 mg for goal of net negative 1-2 L over the next 24 hours Consider initiation of GDMT once stabilized Electrolyte repletion as needed K > 4, Mg > 1 Tele #Stage III CLEM (last known baseline was September 2022 with creatinine of 1.5 and BUN of 19) #Likely cardiorenal syndrome #Consider obstructive uropathy Q4H BMP to monitor creatine response with diuresis Monitor urine output closely Nephrology following Renal U/S 01/19 shows bilateral pelvicaliectasis concerning for hydro (this is with benedict in place).Renal size is normal bilaterally with normal appearing parenchyma/cortex. Urine protein:creatinine ratio Iron studies Iron 68 TIBC 229 Ferritin 478 Vitamin D/PTH levels PTH 401 Vit D 9 Urology consult for help with obstruction #Diabetes Holding home metformin Sensitive sliding scale and meal associated lispro #History of hypertension Not on home antihypertensives Continue to monitor #Hyperlipidemial Holding home simvastatin 10 mg daily, start atorvastatin 80 mg daily #History of peripheral neuropathy Continue reduced dose gabapentin 100 mg BID in the context of CLEM #Patient concern for unspecified poisoning Tox screen negative Salicylates and acetaminophen level negative #Schizophrenia - Continue home olanzapine #Routine Diet: Cardiac diet (Give Meds) DVT Prophylaxis: Enoxaparin GI Prophylaxis: Not indicated Code Status: Attempt Cardiopulmonary Resuscitation - Inpatient Dispo: Pending clinical course #Housekeeping: DVT PPx: Heparin GI PPx: Diet: Cardiac diet 60/60/75 CHO counting level 2 Lines: Peripheral IV Line - Single Lumen 01/18/23 1900 median cubital vein (antecubital fossa), right 20 gauge (Active) Number of days: 1 Code status: @CODESTATUS@ Kendy Montes MD Internal Medicine, PGY-1 Cardiology M1-S1, #3011 Cardiology M1-S2, #3349 01/20/2023, 6:05 AM Cardiology Staff Addendum Miguel Sanchez is a 67 y.o. male whom I saw today with Dr. Montes. I have personally interviewed and examined the patient and reviewed appropriate data, including labs, ECGs, and other diagnostic studies.I agree with the principal findings documented above, with additions and exceptions as below. The assessment and plan were formulated in discussion with me. Patient presents in transfer with acute on chronic HFrEF, profound CLEM. LVEF 29%, severely decreased, with normal RV function, no valve disease. Admission Cr 6.0 on baseline of ~1.5, either due to HF, obstructive uropathy, advanced diabetic nephropathy, or a combination. Responsive to IV diuretics,in no distress, with normal oxygen saturation on room air. Good UO since admission with placement of Benedict catheter. Patient will need an ischemic evaluation, but no evidence of ACS, and will hold off on cath until renal function is improved. Chris Lim MD, W[facility]ACE, FACC, FACP, FASE Cardiovascular Medicine * Tati Schultz - 01/19/2023 3:55 PM EDTSummary: Advance Directive Patient completed a [place] Advance Directive. Patient identified his sister Mony as his health care agent. * Sera Mancera, PT - 01/19/2023 11:00 AM EDT Physical Therapy evaluation Patient profile: Miguel Sanchez is a 67 y.o. male with PMH significant for HFrEF (last known EF 45% in 2020), diabetes, hypertension, and hyperlipidemia who presents from [facility] ED after being redirected from [facility] urgent clinic for one month of progressively worsening shortness of breath and associated chest pain occurring both at rest and on exertion. Social History: Home set-up: Lives alone in a single level apartment in [place], [place] Bathroom Set-up: Tub-shower with a shower chair and grab bars Stairs: Elevator Baseline Mobility: Ambulates without an assistive device. Independent with most I/ADLs, but gets assistance with transportation and errands through mental health agency. Sleeps in a flat bed. Enjoys watching TV. Equipment at home: None Fall history: Denies Precautions/Special Considerations: Full Code, High risk for skin breakdown Lines: Poil, PIV, Telemetry, Benedict Activity Orders: Bedrest with bathroom privileges Diet: NPO (changed to cardiac diet at end of session) Mobility and Positioning Recommendations: Pt. to utilize 1 person assist and front-wheeled walker for ambulation and transfers with nursing. Please encourage up to chair for meal times as able. Pt encouraged to ambulate frequently with staff, getting into the bathroom for toileting and walking out in the deal >/= 3 times daily as able. Subjective: ???I feel weak?? Objective: Pt seen for evaluation today in conjunction with OT. Pain: Denies pain at rest or with activity besides at catheter insertion sites Vital Signs: At Rest With Activity SpO2 (RA) 97% 95% BP 132/77 (94) mm Hg NA HR 62 bpm 74 bpm Mental Status: alert, oriented to person, place, and time, flat affect, increased time to respond Vision: WFL Skin: Visible skin grossly intact Musculoskeletal: ROM: WFL, reports stiffness in bilateral ankles Strength: WFL Sensation: Reports chronic paresthesia in bilateral hands and feet, reports taking Gabapentin 3x/day at baseline Bed Mobility: Supine to Sit: Min assist x1, HOB slightly elevated, towards R EOB, increased effort and time Sit to Supine: Supervision, HOB slightly elevated Transfers: Sit to Stand: Supervision from EOB and toilet to front-wheeled walker, increased time and effort Stand to Sit: CGA x1 from front-wheeled walker to toilet and EOB, decreased eccentric control, cuesfor walker management Gait: Distance: 15' + 15' Device used: front-wheeled walker Level of assist: CGA x1 Gait mechanics: Decreased gait speed, wide MAMIE, short step length/height with minimal foot clearance Stairs: NA Balance: Sitting Static: Good Sitting Dynamic: Good Standing Static: Good with a front-wheeled walker Standing Dynamic/Gait: Good with a front-wheeled walker, relatively steady Therapeutic Exercise: NA Education: Patient has been educated on bed mobility, transfers, gait, assistive device use/technique, balance, activity pacing/energy conservation, safety, and role of therapy and verbalizes and demonstrates understanding. Patient status, treatment, and mobility recommendations discussed with nursing. Pt left supine in bed, with all needs met, with call mcbride in reach, and with bed alarm active following visit. Assessment: Miguel Sanchez was seen today for physical therapy evaluation. Upon evaluation, patient presents with pain, subjective weakness, impaired sensation, balance deficits, decreased endurance, andreduced activity tolerance, resulting in functional limitations. Despite these, pt able to perform bed mobility, transfers, and ambulation with 1 person assist. Pt ambulated to/from the bathroom withthe FWW with relatively steady gait and stable vitals, but noted feeling fatigued and weak. Anticipate pt will progress quickly to return home with maximized services at home, including home health. Pt will benefit from ongoing therapeutic interventions while in the acute care setting to reach pt an d therapy goals. Discharge Recommendations: Based on the current findings, recommend home with home health, home with daily check in when medically ready for hospital discharge. Discharge recommendation is based on the patient's current physical impairments, prior functional status, potential to return to prior level of function, patient motivation, reported home support, potential for functional gains, current level of endurance, reported home environment and anticipated trajectory of progress and may change based on patient progress during this hospitalization Consult Recommendations: No other consults recommended at this time. Equipment needs: to be determined Goals: To be achieved by 02/04/2023: Pt. to demonstrate knowledge of safety limitations and precautions and will appropriately request assistance for functional activities and to mobilize. Pt. to demonstrate understanding of appropriate therapeutic exercises. Pt. to perform bed mobility with supervision with HOB flat. Pt. to perform sit<>stand transfers with modified independence using the least restrictive assistive device . Pt. to ambulate 75 feet with modified independence using the least restrictive assistive device . Pt will tolerate progression towards upright with stable vital signs. Plan: 2-4 times/wk for therapy including balance training, bed mobility training, gait training, patient/family education, strengthening, and transfer training. Patient understands and agrees with plan as stated above. 2017 PT Evaluation Code Rationale: Diagnosis & Pertinent Co-Morbidities, personal factors, and present illness affecting Plan of Care: Total # of Factors: 0 1-2 3+ X Examination of body system impairments, functional limitations and behaviors, and/or participation restrictions Addressing 1-2 elements Addressing 3 + elements X Addressing 4 + elements Clinical presentation: See assessment above. Stable/Uncomplicated Evolving/Fluctuating Symptoms Unstable/Unpredictable X Clinical decision making of moderate complexity based on pt's functional performance as outlined inthis evaluation. Time IN/OUT: 10:30-11:00 Total Time: 30 minutes, Moderate Complexity Evaluation Sera Mancera, PT Pager: [phone] Physical Therapy Inpatient Rehabilitation Department * Sushma Hernandez, OT - 01/19/2023 10:30 AM EDT Occupational Therapy Evaluation Patient profile: Miguel Sanchez is a 67 y.o. male with PMH significant for HFrEF (last known EF 45% in 2020), diabetes, hypertension, and hyperlipidemia who presents from [facility] ED after being redirected from [facility] urgent clinic for one month of progressively worsening shortness of breath and associated chest pain occurring both at rest and on exertion. No past medical history on file. No past surgical history on file. Social History: Home set up: Pt lives alone in an apartment with elevator access. Bathroom has a tub/shower with DME. PLOF: Pt reports independence with BADL, cooking, cleaning, and medication management, but feels heneeds more assist with cleaning. Someone from the mental health agency provides transportation for shopping and errands and his case folder visits once a week. Pt does not use an AD for functional mobility and is mostly sedentary. DME: grab bars in shower Falls: pt denies falls Precautions/Special Considerations: at risk to fall, bedrest with bathroom privileges Staff Recommendations: Bathroom for toileting Reorient pt multiple times a day as needed Assist pt OOB to chair for meals Promote wellbeing through engagement in leisure and relaxation activities Encourage good sleep hygiene with appropriate sleep/wake cycles Utilize upright chair position using bed features or transfer to recliner chair as appropriate Encourage participation in ADL's and provide physical assist only as needed Subjective: I feel weak. I didn't eat all day yesterday. Objective: Seen today for OT evaluation. Pain: 0/10 Vitals: HR: 62 bpm SpO2: 98% on RA BP: 132/77 mmHg Cognitive Status/Behavior: Behavior / Mood: alert, cooperative, and flat affect Oriented to: person, place, and situation; additional orientation N/A Follows commands: multi step and 100% of the time Attention: WFL Safety awareness: WFL Vision & Perception: WNL/WFL Communication/Hearing: WFL Musculoskeletal: Hand dominance: right Strength/ROM: grossly WFL Sensation: c/o increased numbness/tingling in B hands and feet d/t not receiving Gabapentin Skin: visualized skin intact Activities of Daily Living: Self-feeding: NA d/t NPO order Grooming: NA Dressing: NA Bathing: NA Toileting: supervision for hygiene Functional Mobility: Supine to sit: min A with HOB elevated Sit to stand: supervision to FWW Ambulation: CGA to/from bathroom with FWW Stand to sit: supervision Sit to supine: supervision Balance: Static sitting: good Dynamic sitting: good Static standing balance: good Dynamic standing balance: good with UE assist Education: Patient has been educated on Role of occupational therapy/rehabilitation, Transfers, ADL, Positioning, Safety, Functional Mobility, Activity pacing/Energy conservation, Balance, Recommendations and Discharge planning and pt verbalized understanding. Patient status, treatment, and mobility recommendations discussed with nursing. Assessment: Miguel Sanchez has been seen for occupational therapy evaluation and presented with the following performance skill deficits and client factors: decreased activity tolerance, decreased sitting/standing balance, and precautions/bracing. These performance deficits have led to activity limitations and participation restrictions in the following areas of occupation: transfers/mobility, home management, and community mobility. Pt presented with c/o fatigue and decreased strength, but was able to ambulate to the bathroom for toileting and perform hygiene with supervision/CGA and AD. Pt may benefit from increased supports at home for IADLs and OT/PT to assist with resuming baseline routines. Further inpatient OT interventions are recommended to address performance deficits and maximize participation and independence with occupations of daily living. Equipment needs at discharge: Equipment Needs Upon Discharge (OT): to be determined Anticipated Discharge Disposition (OT): home with home health, home with supervision Goals: To be achieved by 01/26/23 Pt will demonstrate independence with UB/LB bathing, shower level Pt will dress his LB independently using AE as needed Pt ambulate to the bathroom for ADL with mod I Pt will perform 3 grooming tasks independently in standing at sink Plan: OT: Therapy Frequency (OT): 2-4 times/wk Planned OT interventions: Role of occupational therapy/rehabilitation, Transfers, Assistive device/technique, Adaptive equipment training, ADL, Exercise, Breathing exercises, Positioning, Safety, Precautions/Protocol, Functional Mobility, Activity pacing/Energy conservation, Home Program, Home Management, Balance, Recommendations, Family training, and Discharge planning. Total Minutes, Occupational Therapy: 30 (Evaluation; 10:30-11:00) 2017 OT Evaluation Code Rationale: Diagnosis & Pertinent Co-Morbidities affecting Plan of Care: see PMHx Occupational Profile & Client History: Brief Expanded Extensive x Assessment of Occupational Performance: 1-3 performance deficits 3-5 performance deficits 5 + performance deficits x Clinical Decision Making: Low Moderate High x Clinical decision making of moderate complexity using standardized patient assessment instrument and measurable assessment of functional outcome. Pager: [phone] Sushma Hernandez OTR/L Occupational Therapy Rehabilitation Department * Marii Serrano - 01/19/2023 10:23 AM EDT [employer] Operator Encounter Note Patient Name: Miguel Sanchez : [id number] MR#: [id number] Admit Date: 01/18/2023 5:25 PM Hospital Day 1 day Narrative: A response to a request for Spiritual support to patient per consult. Assessment: Patient is laying in bed. Patient is awake, alert and oriented. Patient is not feeling great at thetime of this visit. Patient says, they found out that he has heart failure and kidney problem. Patient has catheter on and urine comes out with blood. Patient is in pain due to catheter. Amidst thesepatient is calm, peaceful and trusting. Patient still sounds positive, faithful and hopeful. Patient prays to God to give the doctors wisdom to treat him well. Patient demonstrates a lot of quinton in God. Patient believes in the Holy Guillermina, Father, Son and Holy Spirit. Patient believes that Kevin Ashwin on the cross for his sins. Patient believes in Kevin Ashwin and doesn't believe in goingto Sikh because he can episcopalian God in any place he is. Patient believes that Kevin is with him wherever he is. Patient feels supported, safe and protected in God's hands than any other person's hands. Patient wants prayer and blessing. Intervention and Outcome: I offered patient Pastoral presence, Empathetic listening, acknowledgement, validation, Spiritual/Emotional support and encouragement. I prayed for patient and blessed him. Patient expressed appreciation. Follow-up: As needed. Time in Direct Care: Cassandra Serrano 01/19/2023 * Rach Araujo MSW - 01/19/2023 8:48 AM EDT SABIHA received a consult to support patient in completing a [place] Advance Directive. Referral sent to Office of Care Management ~ Sander Hand. * Chris Lim MD - 01/19/2023 6:11 AM EDT Images from the original note were not included. Cardiology Progress Note Patient info: Name: Miguel Sanchez : 1955 PCP: Reina Alcala APRN (Inactive) PCP phone number: [phone] Date of Admission: 01/18/2023 ( Hospital Day 1 day ) Attending:Chris Lim MD ID: Miguel Sanchez is a 67 y.o. male with PMH significant for HFrEF (last known EF 45% in 2020), diabetes, hypertension, and hyperlipidemia who presents from [facility] ED after being redirected from [facility] urgent clinic for one month of progressively worsening shortness of breath and associated chest pain occurring both at rest and on exertion. Active Problems: Active Hospital Problems Diagnosis Heart failure Resolved Hospital Problems No resolved problems to display. 24 Hour and Subjective: Yesterday: - The patient was reassuringly afebrile and hemodynamically stable upon transfer to [facility]. Interestingly, initial exam did not demonstrate marked volume overload. However, labs were significant for persistence of stage III CLEM noted at the OSH, elevated high-sensitivity troponin, and significantly elevated proBNP. ECG on arrival did not show any acute ischemic changes but bedside TTE was significant for globally reduced LV systolic function with estimated LVEF of ~35% with diffuse hypokinesis. Overnight: -Patient remained hemodynamically stable. Diuresed with 60mg IV Lasix. Troponins flat (78) and heparin d/c. Cr improved slightly with admission (Cr 5.71 to Cr 5.50). Nephrology consulted for GFR of 10% and will see patient in the morning. Renal US ordered. 2L UOP. This Morning: -Patient reports feeling fatigued this morning. Denies chest pain or SOB at rest in bed . Patient requesting his home gabapentin for diabetic neuropathy of the lower extremities. Reports some episodes of incontinence and nocturia for past month. Reports he takes motrin and aleve at home daily for arthritis. Reports decreased appetite over the past few days. Vitals Last value Range last 24 hrs Temperature Temp: 36.7 ??C (98 ??F) Temp: [36.5 ??C (97.7 ??F)-36.8 ??C (98.2 ??F)] Heart Rate Heart Rate: 61 Heart Rate: [61-71] Blood Pressure BP: 137/77 BP: (137-158)/(77-90) Art Line BP BP (Arterial Line): -- MAP (NBP): [96 mmHg-111 mmHg] Respiratory Rate Resp: 20 Resp: [18-20] SpO2 SpO2: 95 % SpO2: [95 %-97 %] Oxygen Delivery Oxygen Therapy O2 Device: None (Room air) Reason for Oxygen: Patient currently on room air Objective: Intake/Output Summary (Last 24 hours) at 01/19/2023 1056 Last data filed at 01/19/2023 1038 Gross per 24 hour Intake 300 ml Output 2875 ml Net -2575 ml Patient Vitals for the past 168 hrs: Weight 01/18/23 2329 109.8 kg (242 lb) 01/18/23 1735 109.4 kg (241 lb 3.2 oz) Admit wt: 109.41 kg Physical Exam: Gen: in bed in NAD; alert, oriented, conversant HEENT: Anicteric, EOMI intact CV: RRR, no murmurs/rubs/gallops, JVP unable to be assessed due to body habitus Resp: Lung sounds clear, no wheezes/crackles Abd: Abdomen soft, NDNT Ext: 2+ distal pulses, 1+ LE edema Lines/Drains/Airways Lines: Peripheral IV Line - Single Lumen 01/18/23 1900 median cubital vein (antecubital fossa), right 20 gauge (Active) Phlebitis 0-->no symptoms 01/19/23 0600 Infiltration 0-->no symptoms 01/19/23 0600 Labs: Recent Labs 01/19/23 0150 01/18/23221501/18/231915 WBC 7.8 6.9 7.2 HGB 10.1* 10.1* 10.1* HCT 30.3* 31.0* 30.1* PLATELET 173 196 183 MCV 93.2* 93.9* 92.9 Recent Labs 01/19/23 0621 01/19/23 0150 01/18/23221501/18/231915 NA 143 143 145 144 CL 107 107 109* 109* CO2 21* 22 Not Perf 21* K 4.3 4.3 4.8 4.6 MAGNESIUM -- 0.80 0.87 -- PHOS -- 4.3 4.2 -- CALCIUM 8.9 8.9 9.2 9.3 BUN 58* 54* 60* 60* CREATININE 5.52* 5.50* 5.81* 5.71* LFTs Recent Labs 01/18/231915 PROT 7.2 ALBUMIN 4.2 AST 12 ALT 12 ALKPHOS 95 BILITOT 0.7 Coags Recent Labs 01/18/232215 INR 1.3 PT 14.3* PTT 35 Cardiac Enzymes Recent Labs 01/19/23 0150 01/18/231915 CK 70 -- PROBNP -- 11,818* Endocrine Recent Labs 01/18/232215 TSH 2.03 Recent Labs 01/19/23 0800 01/19/23 0742 01/19/23 0146 POCGLU 92 87 75 Heme No results for input(s): LDH, HAPTOGLOBIN, URICACID in the last 168 hours. ABG (Arterial Blood Gas) No results found for: PHART, PO2ART, MEP7CQJ, FWB3NGS Microbiology: Microbiology Results (Last 30 days) No results found for the last 720 hours. Imaging: Results for orders placed or performed during the hospital encounter of 01/18/23 US Retroperitoneal Complete (Exam End: 01/19/2023 8:30 AM) Impression 1. Both kidneys are normal in size and parenchymal thickness but have mild collecting system dilatation. 2. A Benedict catheter is present in an otherwise empty and difficult to evaluate urinary bladder.. Electronically signed by: Jimmie العراقي MD, [facility] ([phone]), at 01/19/2023 8:39 AM Thank you for letting us participate in the care of this patient. If you are a health care provider and have any questions regarding this report, please contact the number above. For patients who have questions, please contact the health rn primary care that requested your imaging first. Jimmie العراقي, Staff Physician Electronically Signed Final Report 01/19/2023 08:47 am Inpatient Medications Scheduled Meds: sodium chloride 0.9 % (flush) 5 mL Intravenous BID aspirin EC 81 mg Oral Daily insulin lispro 0-8 Units Subcutaneous TID WC insulin lispro 1-4 Units Subcutaneous TID AC atorvastatin 80 mg Oral QPM heparin (porcine) 5,000 Units Subcutaneous Q8H JAMAL Continuous Infusions: PRN Meds:.sodium chloride 0.9 % (flush), lidocaine, nitroGLYcerin, glucose 40% oral geL OR dextrose 10% OR glucagon Outpatient Medications Current Outpatient Medications Medication Instructions gabapentin (NEURONTIN) 100 mg, 3 TIMES DAILY metFORMIN (GLUCOPHAGE) 500 mg, Oral, 2 TIMES DAILY WITH MEALS naproxen sodium 220 mg Cap Take by mouth. pimozide (ORAP) 2 mg, Oral, 2 TIMES DAILY simvastatin (ZOCOR) 10 mg, NIGHTLY triamcinolone (KENALOG) 0.1 % cream 2 TIMES DAILY Assessment & Plan: Miguel Sanchez is a 67 y.o. male with PMH significant for HFrEF (last known EF 45% in 2019), diabetes, hypertension, and hyperlipidemia who presents from [facility] ED after being redirected from [facility] urgent clinic for one month of progressively worsening shortness of breath and associated chest painoccurring both at rest and on exertion. Plan for 01/19/23: Patient reassuringly afebrile and hemodynamically stable. Given the patient's history of progressively worsening new shortness of breath and chest pain, have concern for acute on chronic HFrEF exacerbation. Will continue diuresis with IV lasix 80mg. Regarding CLEM, his creatinine is improving with diuresis (Cr 5.52 down from 5.81), will obtain nephrology consult. Plan for formal TTE today #Acute on chronic systolic HFrEF exacerbation (last known EF 45% in 2019) ASA 81mg daily Atorvastatin 80 mg daily Nitroglycerin 0.4mg PRN for chest pain Continue diuresis with IV Lasix 80 mg for goal of net negative 1-2 L over the next 24 hours Consider initiation of GDMT once stabilized Electrolyte repletion as needed K > 4, Mg > 1 TTE - results pending Tele #Stage III CLEM (last known baseline was September 2022 with creatinine of 1.5 and BUN of 19) #Likely cardiorenal syndrome #Consider obstructive uropathy Q4H BMP to monitor creatine response with diuresis Monitor urine output closely FeUrea 59.3 suggesting intrinsic renal disease Nephrology consultation if no improvement with diuresis #Diabetes Check hemoglobin A1c Holding home metformin Sensitive sliding scale and meal associated lispro #History of hypertension Not on home antihypertensives Continue to monitor #Hyperlipidemia Check lipid panel Holding home simvastatin 10 mg daily, start atorvastatin 80 mg daily #History of peripheral neuropathy Holding home gabapentin in the context of CLEM #Patient concern for unspecified poisoning Tox screen negative Salicylates and acetaminophen level negative #Routine Diet: Cardiac diet (Give Meds) DVT Prophylaxis: Enoxaparin GI Prophylaxis: Not indicated Code Status: Attempt Cardiopulmonary Resuscitation - Inpatient Dispo: Pending clinical course Kendy Montes MD Internal Medicine, PGY-1 Cardiology M1-S1, #[id number] Cardiology M1-S2, #[id number] 01/19/2023, 10:56 AM Cardiology Staff Addendum Miguel Sanchez is a 67 y.o. male whom I saw today with Dr. Montes. I have personally interviewed and examined the patient and reviewed appropriate data, including labs, ECGs, and other diagnostic studies.I agree with the principal findings documented above, with additions and exceptions as below. The assessment and plan were formulated in discussion with me. Patient presents in transfer with acute on chronic HFrEF, profound CLEM. LVEF 29%, severely decreased, with normal RV function, no valve disease. Cr 6.0 on baseline of ~1.5, either due to HF, obstructive uropathy, advanced diabetic nephropathy, or a combination. Responsive to IV diuretics, in not distress, with normal oxygen saturation on room air. Good UO with IV Lasix 80 mg. Will diurese further, obtain renal US and nephrology input. Patient will need an ischemic evaluation, but no evidence ofACS, and will hold off on cath until renal function is improved. Chris Lim MD, WALLACE, FACC, FACP, FASE Cardiovascular Medicine documented in this encounter H&P Notes * Chris Lim MD - 01/18/2023 6:24 PM EDT Images from the original note were not included. Cardiology H&P Patient info: Name: Miguel Sanchez : 1955 PCP: Reina Alcala APRN (Inactive) PCP phone number: [phone] Date of Admission: 01/18/2023 ( Hospital Day 0 days ) Attending:Tanya Seaman MD ID: Miguel Sanchez is a 67 y.o. male with PMH significant for HFrEF (last known EF 45% in 2019), diabetes, hypertension, and hyperlipidemia who presents from [facility] ED after being redirected from [facility] urgent clinic for one month of progressively worsening shortness of breath and associated chest pain occurring both at rest and on exertion. HPI: The patient reports that he has been having progressively worsening shortness of breath, chest pain, and generalized fatigue both at rest and on exertion over the past month. The patient reports thathe has been having worsening orthopnea with associated PND and nonproductive cough requiring him tosleep with 2 pillows to prop him up at night in order to breathe. He also states that he has been ex periencing episodic (1-2 episodes per day lasting <10 seconds), non-radiating, substernal/left-sided chest pain that is stabbing nature, and moderate in intensity without any clear precipitating factors. However, he reports that his chest pain is mildly alleviated with rest if it were to occur on exertion. The patient is unsure what has precipitated his progressively worsening symptoms of chest pain and shortness of breath and wonders if his neighbor across the deal in his apartment complex is poisoning him (reports some level of animosity between them). However, he denies any change in mood or audiovisual hallucinations. The patient otherwise reports having mild bilateral lower extremity edema and nausea with intermittent loose stools. However, he denies any fevers, chills, headaches, change in vision, palpitations, abdominal pain, vomiting, melena, hematochezia, dysuria, hematuria, change in urinary frequency, numbness, tingling, or loss of consciousness. Of note, he does not check his weight at home and is unsure of his home dry weight. The patient reports that since his symptoms were getting progressively worse he went to the [facility] urgent clinic in [place], [place] and was subsequently transferred to [facility] ED for further management. Upon initial presentation to [facility] ED: The patient was noted to be tachypneic with SPO2 in the low 90s on room air but was hemodynamicallystable (BP 150s/90s). On exam he was noted to have bilateral lower extremity edema quantified as a little. The patient's proBNP was found to be greater than 10,000. Other labs were notable for creatinine of 6.1 and BUN of 63 (last known baseline was September 2022 with creatinine of 1.5 and BUN of 19). Formal TTE was not obtained but bedside ultrasound was significant for hypokinesis with LVEF less than 45% based on Dr. Dykes's assessment. The patient was diuresed with 80 mg IV Lasix (home dose reportedly 40 mg PO) and transferred to [facility] for management of presumed acute on chronic HFrEF and CLEM. Upon direct admission to [facility]: The patient was noted to be afebrile and hemodynamically stable (BP 158/90, HR 71) and was saturating 95% on room air. CBC was significant for absence of leukocytosis and normocytic anemia (hemoglobin 10.1). CMP was significant for continued evidence of CLEM with creatinine 5.71, BUN 60, and EGFR 10. Initial high-sensitivity troponin was 78 pending recheck. proBNP was 11,818. Lactate was normal at1.6. ECG on admission did not show any acute ischemic changes. Bedside TTE was significant for globally reduced LV systolic function with estimated LVEF of ~35% with diffuse hypokinesis. CXR pending. Review of Systems: Complete review of systems is negative except for the pertinent positives and negatives listed above. PMH: HFrEF (last known EF 45% in 2019) Diabetes Hypertension Hyperlipidemia Neurodermatitis PSH: No known past surgical history Home medications: Current Outpatient Medications Medication Instructions gabapentin (NEURONTIN) 100 mg, 3 TIMES DAILY metFORMIN (GLUCOPHAGE) 500 mg, Oral, 2 TIMES DAILY WITH MEALS naproxen sodium 220 mg Cap Take by mouth. 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 Denies alcohol use Reports being a never smoker Denies drug use Objective: Vitals Last value Range last 24 hrs Temperature Temp: 36.5 ??C (97.7 ??F) Temp: [36.5 ??C (97.7 ??F)] Heart Rate Heart Rate: 71 Heart Rate: [71] Blood Pressure BP: 158/90 BP: (158)/(90) Art Line BP BP (Arterial Line): -- MAP (NBP): [111 mmHg] Respiratory Rate Resp: 20 Resp: [20] SpO2 SpO2: 95 % SpO2: [95 %] Oxygen Delivery Oxygen Therapy O2 Device: None (Room air) No intake or output data in the 24 hours ending 01/18/232045 Patient Vitals for the past 168 hrs: Weight 01/18/23 1735 109.4 kg (241 lb 3.2 oz) Admit wt: 109.41 kg Physical Exam: Gen: Resting in bed, not in acute distress HEENT: Anicteric, EOMI intact, JVP difficult to appreciate secondary to body habitus CV: RRR, normal S1, S2, no murmurs appreciated Resp: Crackles at bilateral bases, normal work of breathing Abd: Normal bowel sounds, soft, distended, non-tender to palpation, no rebound or guarding Ext: 2+ distal pulses, trace pitting pedal edema bilaterally Neuro: No focal deficits noted, CN II-XII grossly intact, moves all extremities spontaneously Psych: Cooperative. Skin: No rashes, lesions, or ulcerations noted Labs: Latest Reference Range & Units Most Recent WBC 4.0 - 9.5 x10(3)/mcL 7.2 01/18/23 19:16 RBC 4.58 - 5.54 x10(6)/mcL 3.24 (L) 01/18/23 19:16 Hemoglobin 13.7 - 16.5 g/dL 10.1 (L) 01/18/23 19:16 Hematocrit 40.5 - 48.5 % 30.1 (L) 01/18/23 19:16 MCV 82.9 - 93.1 fL 92.9 01/18/23 19:16 MCH 27.5 - 32.1 pg 31.2 01/18/23 19:16 MCHC 32.0 - 35.7 g/dL 33.6 01/18/23 19:16 RDWSD 36.0 - 45.0 fL 44.4 01/18/23 19:16 RDWCV 11.4 - 13.8 % 13.2 01/18/23 19:16 Platelets 145 - 357 x10(3)/mcL 183 01/18/23 19:16 Latest Reference Range & Units Most Recent Sodium 135 - 145 mmol/L 144 01/18/23 19:16 Potassium 3.5 - 5.0 mmol/L 4.6 01/18/23 19:16 Chloride 98 - 107 mmol/L 109 (H) 01/18/23 19:16 CO2 22 - 31 mmol/L 21 (L) 01/18/23 19:16 Anion Gap 5 - 15 mmol/L 14 01/18/23 19:16 BUN 10 - 20 mg/dL 60 (H) 01/18/23 19:16 Creatinine 0.80 - 1.50 mg/dL 5.71 (H) 01/18/23 19:16 Estimated GFR >=60 mL/min/1.73 m?? 10 (L) 01/18/23 19:16 Calcium 8.5 - 10.5 mg/dL 9.3 01/18/23 19:16 Lactate WB 0.5 - 2.2 mmol/L 1.6 01/18/23 19:46 Latest Reference Range & Units Most Recent Troponin-T HS <=22 ng/L 78 (H) 01/18/23 19:16 ProBNP <=124 pg/mL 11,818 (H) 01/18/23 19:16 Microbiology: No new studies Imaging: TTE Summary 08/25/2019: Mild concentric left ventricular hypertrophy is observed. Global left ventricular systolic functionis moderately reduced. Ejection fraction is estimated to be 45%. There is diffuse hypokinesis present. The left atrium is normal in size. No significant valvular abnormalities. Other details as noted in report. Assessment & Plan: Miguel Sanchez is a 67 y.o. male with PMH significant for HFrEF (last known EF 45% in 2019), diabetes, hypertension, and hyperlipidemia who presents from [facility] ED after being redirected from [facility] for one month of progressively worsening shortness of breath and associated chest painoccurring both at rest and on exertion. The patient was reassuringly afebrile and hemodynamically stable upon transfer to [facility]. Interestingly, initial exam did not demonstrate marked volume overload. However, labs were significant for persistence of stage III CLEM noted at the OSH, elevated high-sensitivity troponin, and significantly elevated proBNP. ECG on arrival did not show any acute ischemic changes but bedside TTE was significantfor globally reduced LV systolic function with estimated LVEF of ~35% with diffuse hypokinesis. Given the patient's history of progressively worsening new shortness of breath and chest pain, haveconcern for acute on chronic HFrEF exacerbation in the context of type I versus type II NSTEMI. Given ANIYAH score of 4 and CROW score of 147 would likely favor early invasive strategy pending evidence of dynamic troponin changes. Regarding the patient's stage III CLEM, his creatinine is reassuringly improving with diuresis. Willcontinue to monitor closely and consider nephrology involvement if the patient's creatinine worsensor if his urine output does not increase with diuresis. Remainder of plan as detailed below. #Concern for type I versus type II NSTEMI Load ASA 324mg, then 81mg daily Holding off on P2Y12 pending troponin Heparin drip Holding home simvastatin 10 mg daily, start atorvastatin 80 mg daily Nitroglycerin 0.4mg PRN for chest pain Obtain CXR Telemetry, EKG prn chest pain Risk stratification with globin A1c, TSH, lipids #Acute on chronic systolic HFrEF exacerbation (last known EF 45% in 2019) Diuresed with 80 mg IV Lasix once at OSH Continue diuresis with IV Lasix 80 mg for goal of net negative 1-2 L over the next 24 hours Consider initiation of GDMT once stabilized Electrolyte repletion as needed K > 4, Mg > 1 Formal TTE in the morning #Stage III CLEM (last known baseline was September 2022 with creatinine of 1.5 and BUN of 19) #Likely cardiorenal syndrome Q4H BMP to monitor creatine response with diuresis Monitor urine output closely Obtain UA and labs for FEUrea Consider nephrology consultation if no improvement with diuresis #Diabetes Check hemoglobin A1c Holding home metformin Sensitive sliding scale and meal associated lispro #History of hypertension Not on home antihypertensives Continue to monitor #Hyperlipidemia Check lipid panel Holding home simvastatin 10 mg daily, start atorvastatin 80 mg daily #History of peripheral neuropathy Holding home gabapentin in the context of CLEM #Patient concern for unspecified poisoning Tox screen Salicylates and acetaminophen level #Routine Diet: NPO diet (Give Meds) DVT Prophylaxis: On heparin drip GI Prophylaxis: Not indicated Code Status: Attempt Cardiopulmonary Resuscitation - Inpatient Dispo: Pending clinical course Kyle Mckeon MD Internal Medicine, PGY-2 Cardiology, M1-S2, #[id number] 01/18/23 8:46 PM Cardiology Staff Addendum Miguel Sanchez is a 67 y.o. male whom I saw today with Dr. Mckeon. I have personally interviewed and examined the patient and reviewed appropriate data, including labs, ECGs, and other diagnostic studies. I agree with the principal findings documented above, with additions and exceptions as below. Theassessment and plan were formulated in discussion with me. Patient presents in transfer with acute on chronic HFrEF, profound CLEM. LVEF 29%, severely decreased, with normal RV function, no valve disease. Cr 6.0 on baseline of ~1.5, either due to HF, obstructive uropathy, advanced diabetic nephropathy, or a combination. Responsive to IV diuretics, in not distress, with normal oxygen saturation on room air. Good UO with IV Lasix 80 mg. Will diurese further, obtain renal US and nephrology input. Patient will need an ischemic evaluation, but no evidence ofACS, and will hold off on cath until renal function is improved. Chris Lim MD, WALLACE, FACC, FACP, FASE Cardiovascular Medicine documented in this encounter Miscellaneous Notes * Consult Note - Mendel Luna MD - 01/27/2023 4:27 PM EDT Cardiology Attending Addendum Active Hospital Problems Diagnosis Acute on chronic systolic ACC/AHA stage C congestive heart failure Acute kidney injury Schizophrenia Peripheral neuropathy Type 2 diabetes with nephropathy Obstructive uropathy Resolved Hospital Problems No resolved problems to display. I have interviewed and examined the patient, reviewed the available data, and have discussed my findings, assessment and plan with the patient and the team on rounds today. Appreciate input by Psychiatry consult team. Pt insistent on being discharged to home without Foleycatheter, even though he appears to have significant urinary obstruction. Please see discharge summary for details. More than 30 minutes were spent in [id number] contact with patient and with arranging discharge and coordinating follow-up. * Consult Note - Maritza Awan MD - 01/27/2023 12:39 PM EDT Psychiatric Initial Inpatient Consultation Note Time of Consultation: 1300 Information Sources: Patient. Electronic Medical Record. Reason for consultation: I have been asked by attending physician Mendel Luna MD to see Miguel Sanchez for recommendations regarding the management of capacity to leave without following medical advice for follow-up, and I have outlined my findings and recommendations in this report. Per primary team: Miguel is getting ready for discharge, and is ready to go from cardiac perspectivethough has renal injury related to obstruction, and follow-up plan is to go home with a benedict and follow-up with urology. Miguel has trouble with education around benedict and wants it removed. He is reportedly accepting chances of what could happen (ESRD and dialysis), though he also reportedly forgets parts of conversations about possible outcomes. For this reason, the primary team has requested psychiatry evaluate patient's capacity to refuse this element of his care, given the high risk that goes along with it. Chief Complaint (in patient's own words): The only reason I wanna go home is I have to take care of my financial affairs History of Present Illness: Communicating a Choice Requires the ability to communicate, clearly express a choice, and maintain stable choices long enough for them to be implemented. Patient has his heart set on leaving without a catheter - Understanding the Relevant Information Patients must be able to comprehend the fundamental meaning of information about their treatment and proposed options for care. Patient states that his options are either to leave the catheter on for who knows how long, or totake the catheter off like what I want ... and the risk of not being able to pee and coming back into the hospital. He says, according to them, [if I can't pee], it will block up the kidneys and they might burst. They claim it's potential for dialysis, and that's about it. Appreciating the Situation and its Consequences The attributes of the ability to appreciate situations include acknowledging illness when it is shown to be present, evaluating its effect and the effect of the treatment options presented, and appreciating how the information and general probabilities of risks and benefits apply to their situation. Patient has already stated that there is a risk of his kidneys will blow up and he will need dialysis. I asked if he believed it could happen, and he said, well, if it gets to be that bad, yeah probably, but I'm praying it doesn't get that bad ... no of course I don't want to get dialysis .... it's a possibility, yeah. I asked him how likely it is that his kidneys fail and he needs dialysis, and he said, I've never thought about the odds. I'm hoping and praying that it won't. I asked him what he would do if there was a 90% chance that his kidneys would fail and he'd need dialysis, and he said, I wouldn't believe it until I could get my affairs in order. About 5 minutes later, I asked again what the risks of going home without a catheter are, and he says not being able to pee, my bladder filling up, kidneys rupturing, going onto dialysis, doom and gloom. Manipulating Information Rationally The ability to use logical processes to compare the benefits and risks of various treatment options.The rational process of weighing relevant information to reach a decision that is supported by facts and the patient's own values. Miguel explains that he can't go home with the catheter. It's terrible. It's hard to sleep with it on, hard to have bowel movements. It's a barrier; it's uncomfortable; it hurts. He also has concerns about how to use it / he hasn't gotten used to the mechanism, but this part becomes irrelevant as he explains even if he did know how to use it perfectly, he still wouldn't want it because It hurts. It maciel. Miguel also explains that most important for him is to take care of his financial affairs at home. It will take less than half of a day. I have to pay my rent, get two bottom bleacher's checks - one for rent and one for my phone bill, mail them both in. I have to pay the rent that's due on mysafety deposit box, which has to be done in person. Then I have to check on the mail, and check on the apartment. He also says, I think that as soon as I can get back to doing what I wanna do, it will only take less than a day to do what I want to do ... If I'm not able to pee, then I'll go back to the hospital ... If a day goes by and I haven't peed, I'll go back to the hospital. Miguel says he trusts his doctors here. Independent Collateral: Hospital Course: #Acute on chronic systolic HFrEF exacerbation (EF 29%) Given the patient's history of progressively worsening new shortness of breath and chest pain, concern for acute on chronic HFrEF exacerbation in the context of type I versus type II NSTEMI. Initial labs were significant for elevated high-sensitivity troponin and significantly elevated proBNP. ECG on arrival did not show any acute ischemic changes but bedside TTE was significant for globally reduced LV systolic function with estimated LVEF of ~29% with diffuse hypokinesis. Patient received IV furosemide on admission and from 01/18-01/20, however, diuretics were d/c'd because patient was autodiuresing. Patient underwent RHC on 01/22 which demonstrated euvolemia correlating to his euvolemic physical exam. Patient was started on GDMT with metoprolol succinate 25 mg daily and losartan 25 mg daily. Patient was started on ASA 81 mg daily and atorvastatin 80 mg daily. ASA was held on 01/23 in anticipation for possible kidney biopsy. #Stage III CLEM (last known baseline was September 2022 with creatinine of 1.5 and BUN of 19) Patient admitted with Cr of 5.71. Nephrology was consulted who believed cause of CLEM likely multifactorial. His renal imaging showed bilateral pelvicaliectasis and symptoms of incontinence suggest some degree of obstruction. Likely a degree of cardiorenal physiology at play as well. However, Cr was1.5 in September 2022 and urine studies were negative for microalbuminuria at that time. No prior UPC, u nclear when the nephrotic range proteinuria developed however prior A1cs not markedly elevated which points away from diabetic nephropathy. His DOROTEO is pending, SPEP preliminarily concerning for paraprotein. Patient may need a renal biopsy to clarify the underlying etiology depending on the results.Nephrology recommended holding diuretics and ASA. Nephrology started patient on cholecalciferol 5000 U daily for vitamin D deficiency. Urology was consulted and patient was started on tamsulin and finasteride and recommended maintaining Benedict catheter for 5-7 days followed by TOV. Kidney function remained elevated but stable at 5.4-5.8 throughout admission. Psychiatric Intake: Review of systems: had a little bit of a nervous breakdown yesterday morning when I was told I could go home with hopes of not having a catheter. Has daily auditory hallucinations of [place] that he has lived with for decades. No SI/HI. Diagnoses: schizophrenia dx 1996 Current treatment: zyprexa 15mg QHS Past hospitalizations: never Suicide attempts: not really - years ago he came close, but doesn't elaborate Past psychiatric medications: did not assess Substance Use History/Treatment: no alcohol, cigarettes, marijuana, or other substances Social History: Lives in an apartment by himself in [facility]. No family in the area. Only support is his mental health agency. [facility] - Randa Daniels (case folder). Asa Deal is his provider. 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 No past surgical history on file. Inpatient Medications: Current Facility-Administered Medications Medication Dose Route Frequency Provider Last Rate Last Admin tamsulosin (Flomax) capsule 0.8 mg 0.8 mg Oral Daily Randy Garcia MD 0.8 mg at 01/27/23 0910 cholecalciferol (Vitamin D3) tablet 5,000 Units 5,000 Units Oral Daily Deonte Lugo MD 5,000Units at 01/27/23 0910 losartan (Cozaar) tablet 12.5 mg 12.5 mg Oral Daily Kendy Montes MD 12.5 mg at 08/02/23 0910 metoprolol succinate XL (Toprol-XL) tablet 25 mg 25 mg Oral Daily Autsin Sosa MD 25 mg at 01/27/23 0910 hydrocortisone 1 % cream Topical (Top) BID Kyle Mckeon MD Given at 01/25/23 0836 finasteride (Proscar) tablet 5 mg 5 mg Oral Daily Austin Sosa MD 5 mg at 01/27/23 0909 acetaminophen (Tylenol) tablet 650 mg 650 mg Oral Q6H PRN Kyle Mckeon MD capsaicin (Zostrix) 0.025 % cream Topical (Top) BID Kyle Mckeon MD Given at 01/25/23 0835 heparin (porcine) (5,000 units/1 mL) subcutaneous injection 7,500 Units 7,500 Units Subcutaneous Q8H [facility] Kendy Montes MD 7,500 Units at 01/26/23 1457 gabapentin (Neurontin) capsule 100 mg 100 mg Oral BID Austin Sosa MD 100 mg at 01/27/23 0909 OLANZapine (ZyPREXA) tablet 15 mg 15 mg Oral Nightly Austin Sosa MD 15 mg at 01/20/232015 sodium chloride 0.9 % (flush) (BD PosiFlush Normal Saline 0.9) flush 5 mL 5 mL Intravenous BID Kyle Mckeon MD 5 mL at 01/27/23 0913 sodium chloride 0.9 % (flush) (BD PosiFlush Normal Saline 0.9) flush 5-20 mL 5- 20 mL Intravenous Q1Min PRN Kyle Mckeon MD lidocaine (Xylocaine) 1% (10 mg/mL) injection 3 mg 0.3 mL Subcutaneous Once PRN Kyle Mckeon MD nitroGLYcerin (Nitrostat) disintegrating tablet 0.4 mg 0.4 mg Sublingual Q5 Min PRN Kyle Mckeon MD glucose (Glutose) 40% oral geL 15-30 g of glucose Buccal Q30 Min PRN Kyle Mckeon MD Or dextrose 10% infusion 250 mL Intravenous Q30 Min PRN Kyle Mckeon MD Or glucagon (Glucagen) (1 mg/mL) injection solution 1 mg 1 mg Intramuscular Q30 Min PRN Kyle Mckeon MD insulin lispro (HumaLOG;Admelog) (100 unit/mL) subcutaneous injection vial 0-8 Units 0-8 Units Subcutaneous TID WC Kyle Mckeon MD 3 Units at 01/25/23 1741 insulin lispro (HumaLOG;Admelog) (100 unit/mL) subcutaneous injection vial 1-4 Units 1-4 Units Subcutaneous TID AC Kyle Mckeon MD 1 Units at 01/27/23 0908 atorvastatin (Lipitor) tablet 80 mg 80 mg Oral QPM Kyle Mckeon MD 80 mg at 01/26/23 1826 Pertinent Medical Review of Systems: feels good physically except for neuropathy in feet Family Medical/Psychiatric History: did not assess Physical Exam: Last value Range last 24 hrs Temperature Temp: 37 ??C (98.6 ??F) Temp: [36.3 ??C (97.3 ??F)-37 ??C (98.6 ??F)] Heart Rate Heart Rate: 68 Heart Rate: [67-88] Blood Pressure BP: 134/80 BP: (125-140)/(74-92) Respiratory Rate Resp: 19 Resp: [16-19] SpO2 SpO2: 92 % SpO2: [92 %-98 %] Mental Status Examination: Musculoskeletal System: Muscle Strength/Tone (note atrophy, abnormal movements): no abnormal movements Gait and Station: did not assess Psychiatric: Appearance: age appropriate and casually dressed Behavior: cooperative with the interview, calm, and intermittent eye contact, eyes closed for most of the interview Speech: normal pitch, normal volume, normal rate, and normal rhythm Language: fluent in divehi Mood: fine Affect: blunted and mood-congruent Thought Process: linear and logical Associations: intact Thought Content: no homicidal ideation no suicidal ideation Perception: not observed responding to internal stimuli, endorses chronic AH Orientation: grossly intact by interview Attention/Concentration: intact grossly Cognition: grossly intact by interview Memory: recent and remote memory grossly intact Fund of Knowledge: appropriate for age and level of functioning Insight: fair Judgment: fair Pertinent Diagnostic Testing (include your own review/interpretation of results): Last wbc, hgb, hct plt Recent Labs 01/27/23 0349 WBC 8.2 HGB 10.6* HCT 31.5* Last 3 wbc, hgb, hct plt Recent Labs 01/27/23 03401/26/23 0311 01/25/23 0406 WBC 8.2 8.4 8.2 HGB 10.6* 10.2* 10.6* HCT 31.5* 29.8* 30.7* PLATELET 163 161 170 Last 3 Lytes Recent Labs 01/27/23 0349 01/26/23 0311 01/25/23 0406 NA 137 139 139 K 4.8 4.8 4.5 CL 107 105 103 CO2 15* 18* 19* BUN 78* 77* 78* CREATININE 4.74* 4.91* 5.06* Last 3 LFTs Recent Labs 01/18/23 1916 AST 12 ALT 12 ALKPHOS 95 BILITOT 0.7 Last Ca, Mg, Phos Recent Labs 01/27/23348 CALCIUM 9.4 PHOS 5.0* MAGNESIUM 0.97 Last 3 TFT Recent Labs 01/18/23 2216 TSH 2.03 Last 3 Lipids Recent Labs 01/18/23 221 CHLPL 122 HDL 27 LDLDIRECT 65 Last 3 HgbA1C Recent Labs 01/18/23 2216 HA1C 5.7* Last 3 CBC Recent Labs 01/27/2334801/26/23 0311 01/25/23 0406 WBC 8.2 8.4 8.2 External Record Review (include your own review of external notes from any unique sources): N/a Assessment: Capacity is defined as a person's ability to make an informed decision. The criteria for assessing capacity is defined as below: Express a choice: The patient was clearly able to state a choice to go home without a benedict Reliability: The patient was able to provide a consistent choice over time. Understand: Based on the details as discussed in the HPI, the patient does have an adequate comprehension of the condition, treatment options, and the risks and benefits of treatment options. Appreciate the situation and its consequences: the patient was able to demonstrate appropriate understanding and appreciation of his current clinical situation and its consequences. He has not thought deeply about the odds of going into renal failure and needing dialysis, and does somewhat contrarily state he does NOT want to need dialysis, though still has capacity for his ability to reason thathe will return to the hospital if he has not peed in 24 hours. Reason: The patient's decision to accept or reject the proposed treatment was voluntary and free ofcoercion. The patient did not have unrealistic fears of expectations about treatment or lack thereof. Based on the aforementioned evaluation, the patient does have capacity to make the decision to leave without benedict catheter. Plan/Recommendations: Patient DOES have medical decision making capacity to leave without his benedict Consider alternative options if Miguel is amenable: Removing benedict now and asking if Miguel is amenable to staying until tomorrow morning; if he retainshe may be uncomfortable and this may change his mind about discharging without benedict Though he does state he will come back to the hospital tomorrow if he has not peed in 24 hours, it may optimize outcomes for him to call him tomorrow and check on him, or see if his case folder willcheck in on him tomorrow Please page psychiatry with additional questions Patient on IEA Status? IEA: NO, patient is not on IEA and does not have any psychiatric contraindication to discharge at the time of this assessment. Recommendations were communicated to primary steam box operator Kendy Montes MD. Maritza Awan MD Psychiatry, PGY-2 01/27/2023 Coding Determination 1. Problems/Diagnosis (check one): High Minimal refers to a single minor problem. Example: Poor sleep due to noise in the hospital room. Low refers to two minor problems, or one stable/uncomplicated illness. Examples: Major depression in remission; adjustment disorder with depressed mood. Moderate refers to one illness with new onset, progression, exacerbation, complication, or side effects; or two stable problems. Examples: Recurrent major depression with exacerbation or progression or side effects of treatment; stable schizophrenia and alcohol use disorder; acute alcohol withdrawal; anorexia with systemic symptoms such as bradycardia. High refers to one chronic problem with severe progression, exacerbation, or side effects; or one problem with threat to life or bodily function. Examples: any psychiatric illness with suicidal or homicidal ideation or thoughts of self- harm; delirium; any eating disorder with severe medical consequences; major depression with significant functional decline; any severe side effects of psychiatric interventions (NMS, hyponatremia, lithium toxicity syndrome, etc); any psychiatric illness meeting the severe specifier. 2. Data Review/Analysis (check one): Moderate Low refers to (1) review of notes and test results or (2) assessment from a collateral source. Moderate requires one of the following: All three of the following: review of notes, review of test results, assessment from a collateral source. Discussion of test interpretation or management with an external physician/provider (primary team included). High requires both of the following (same options from Moderate above): All three of the following: review of notes, review of test results, assessment from a collateral source. Discussion of test interpretation or management with an external physician/provider (primary team included). 3. Patient Risk (check one): High Minimal refers to minimal risk from additional testing/treatment. Example: Bereavement. No medications recommended. Low refers to low risk from additional testing/treatment. Example: only interventions are minimallyinvasive or otherwise low risk (serum labs, melatonin, continuing an SSRI). Moderate refers to moderate risk from additional testing/treatment. Examples: starting prescriptionmedication with only moderate risk. Moderate also includes diagnosis or treatment significantly limited by social determinants of health such as food/housing insecurity, transportation issues, financial limitations, etc. High refers to high risk from additional testing/treatment. Examples: therapies requiring monitoring of serum level (lithium, valproate), medications with specific identified risks (QTc-prolonging medications in certain patients, SSRIs in patients with risk of bleeding). Discussions of higher levels of psychiatric intervention/care (1:1 sitter, voluntary psychiatric hospitalization, IEA, ECT). Patients who may require medical interventions against their wishes when they lack capacity to refuse those interventions; patients who lack capacity to choose to leave the hospital AMA. Discussion of high risk interventions that may be necessary to ensure safety (parenteral medications for managementof agitation; restraints; security presence). Risk of acute withdrawal. Complexity of MDM Determination: Choose the appropriate level in the first 3 columns based upon what you indicated above. Then 2 outof 3 elements must be met to qualify for the highest appropriate level of complexity. Problems/Diagnosis Data Review/Analysis Patient Risk Complexity of Medical Decision-Making CPT CODE [] Minimal - [] Minimal [] Straightforward 77842 [] Low [] Low [] Low [] Low 10020 [] Moderate [x] Moderate [] Moderate [] Moderate 32622 [x] High [] High [x] High [x] High 93057 Final Coding Determination: High Associated attestation - Keon Park MD - 02/08/2023 11:08 AM EDT Psychiatry Attending Note I discussed the case with the resident, and saw and evaluated the patient (on 01/27) within 24 hours of the service described in the resident's note. I reviewed the patient???s history during the visit and I agree with the details as written. My exam confirms the resident's findings. The assessment and plan were formulated in discussion with me and I agree with them as documented. Major issues addressed/discussed: Admitted for exacerbation of heart failure, Mr Sanchez is recommended to stay given renal injury and need for Benedict; he is refusing to keep Benedict and asking to leave AMA without the Benedict. Per our evaluation, pt expressed this choice clearly/consistently, and he does u nderstand the risks of leaving with Benedict. Importantly, his plans incorporate an understanding of the risks: he is willing to come back to the hospital if he leaves without Benedict and then is unable to urinate on his own for a day. Agree with other recs as below to try to minimize risk (negotiate for pt to stay a bit longer for monitoring after pulling Benedict; arranging for post-discharge check- in via phone call from team and/or in-person visit from his CM). Keon Park MD Psychiatry Consultation Pager: [phone] * Plan of Care - Adrienne Calderon, LELAND - 01/26/2023 6:34 AM EDT OUTCOME EVALUATION NOTE: OUTCOME SUMMARY: Shift report received. Pt sitting in recliner watching television. AAOx4. VSS. NSR on tele. Denies any pain or discomfort. Fluids provided and encouraged to try to void, pt denies the urge to urinate. Bladder scanned @ 2333 w/ volume 369mL. Pt states he does not want to get straight cath or have another benedict inserted. notified who stated to recheck bladder scan in 4 hours. Attempted to recheck bladder scan but pt has refused scan saying he does not want it done. He has not urinated at all and has no urge to urinate. He is also refusing heparin injection saying he's done and ready to go home. MD notified. PLAN MOVING FORWARD: Monitor I&O's DC planning INDIVIDUALIZED FALL PREVENTION INTERVENTIONS: Patient-specific fall risk factors per assessment: [current deficits]: unfamiliar environment, cables/wires/poles Assistance [level of assistance required for transfers and ambulation]: SBA w/ FWW Supervision [direct monitoring required during toileting and ADLs]: Eyes on Surveillance [continuous indirect monitoring]: Continuous telemetry, SpO2 monitoring, and purposeful rounding Patient-specific fall prevention interventions for sensory deficits provided, if applicable: SBA w/FWW when ambulating, non-skid footwear, clutter free environment, call mcbride within reach bed in lowest position with wheels locked. Pt educated on importance of calling for assistance with ambulation. CPG GOAL OUTCOME EVALUATION: Problem: Adult Inpatient Plan of Care Goal: Plan of Care Review Outcome: Ongoing (Interventions Implemented as Appropriate) Goal: Absence of Hospital-Acquired Illness or Injury Outcome: Ongoing (Interventions Implemented as Appropriate) Intervention: Identify and Manage Fall Risk Flowsheets (Taken 01/25/20232332) Safety Promotion/Fall Prevention: safety round/check completed Intervention: Prevent Skin Injury Flowsheets (Taken 01/25/20232332) Body Position: position changed independently Intervention: Prevent and Manage VTE (Venous Thromboembolism) Risk Flowsheets (Taken 01/25/20232119) VTE Prevention/Management: anticoagulant therapy Intervention: Prevent Infection Flowsheets (Taken 01/25/20232119) Infection Prevention: environmental surveillance performed equipment surfaces disinfected hand hygiene promoted personal protective equipment utilized rest/sleep promoted single patient room provided Problem: Adjustment to Illness (Heart Failure) Goal: Optimal Coping Outcome: Ongoing (Interventions Implemented as Appropriate) Intervention: Support Psychosocial Response Flowsheets (Taken 01/25/20232119) Supportive Measures: active listening utilized positive reinforcement provided self-care encouraged Family/Support System Care: self-care encouraged Problem: Fall Injury Risk Goal: Absence of Fall and Fall-Related Injury Outcome: Ongoing (Interventions Implemented as Appropriate) Intervention: Identify and Manage Contributors Flowsheets (Taken 01/25/2023 2120) Medication Review/Management: medications reviewed high-risk medications identified Self-Care Promotion: independence encouraged Intervention: Promote Injury-Free Environment Flowsheets (Taken 01/25/2023 2333) Safety Promotion/Fall Prevention: safety round/check completed * Care Management - Darryl Rodriguez RN - 01/25/2023 10:31 AM EDT OFFICE OF CARE MANAGEMENT PROGRESS NOTE LOS: Hospital Day 7 days Chart reviewed, care reviewed with primary team and at interdisciplinary rounds. Patient continues to meet inpatient level of care related to: CHF. Per note by Anthony Perry 01/24 @ 0639,Assessment & Plan: Miguel Sanchez is a 67 y.o. male with PMH significant for HFrEF (last known EF 45% in 2020), diabetes, hypertension, and hyperlipidemia who presents from [facility] ED after being redirected from [facility] for one month of progressively worsening shortness of breath and associated chest painoccurring both at rest and on exertion with concern for acute on chronic HFrEF exacerbation, profound CLEM. Creatinine improving today with RHC yesterday demonstrating euvolemia, correlating to his euvolemicphysical exam. Weight is up 2 lbs today, can consider restarting diuresis although he seems to be autodiuresing adequately. Per nephrology, would benefit from a kidney biopsy to elicit the cause of his severe CLEM, as it seems less likely cardiorenal given his RHC results. He will need home servicesupon discharge so will plan to arrange for that, and likely kidney biopsy as an outpatient if he remains stable for dc through the weekend. 01/24/23 No acute changes today. Kidney function stabilized although still persistently elevated from baseline. Will plan for kidney biopsy either outpatient or inpatient, although should not be a barrier to discharge. He will need to hold ASA for at least a week prior, so we will start holding today. We will also hold on initiating diuresis as he continues to be net negative without diuretics. #Acute on chronic systolic HFrEF exacerbation (EF 29%) RHC - euvolemia GDMT Continue metoprolol succinate 25 mg daily Start losartan 25 mg daily Diuresis Hold diuresis; auto-diuresing ~1L/day HOLD ASA 81 mg daily (in anticipating for possible kidney biopsy) Atorvastatin 80 mg daily Nitroglycerin 0.4mg PRN for chest pain Electrolyte repletion as needed K > 4, Mg > 1 Telemetry #Stage III CLEM (last known baseline was September 2022 with creatinine of 1.5 and BUN of 19) #Likely cardiorenal syndrome #Consider obstructive uropathy #Consider diabetic nephropathy Hyperphosphatemia today, hold on starting phosphate binder Q4H BMP to monitor creatine Monitor urine output closely Benedict Nephrology following Agree with starting losartan 25 mg daily Aim for net even I/O Renal U/S 01/19 shows bilateral pelvicaliectasis concerning for hydro (this is with benedict in place).Renal size is normal bilaterally with normal appearing parenchyma/cortex. Nephrotic range proteinuria Iron studies- Iron 68, TIBC 229, Ferritin 478 Vitamin D/PTH levels - PTH 40, Vit D 9 Urology consulted - maintain benedict catheter 5-7 days followed by TOV Repeat renal U/S in a couple days to confirm resolution of hydronephrosis Continue finasteride and tamsulosin Urology outpatient for further management of possible BPH #Diabetes Holding home metformin Sensitive sliding scale and meal associated lispro #History of hypertension Start losartan 25 mg daily #Hyperlipidemia Holding home simvastatin 10 mg daily Continue atorvastatin 80 mg daily #History of peripheral neuropathy Continue reduced dose gabapentin 100 mg BID in the context of CLEM #Patient concern for unspecified poisoning Tox screen negative Salicylates and acetaminophen level negative #Schizophrenia - Continue home olanzapine #Routine Diet: Cardiac diet (Give Meds) DVT Prophylaxis: Heparin SQ GI Prophylaxis: Not indicated Code Status: Attempt Cardiopulmonary Resuscitation - Inpatient Dispo: Pending clinical course Decision Maker: Self Functional status prior to admission: Independent Home Environment: Others in the home: alone. Current Living Arrangements: home/apartment/condo. Accessibility Concerns: one level; elevator. Current Functional Ability: Independent, Assistive Person DME used at home: none DME Needed at Discharge: No Patient is insured through: Primary Insurance: MEDICARE Payor: MEDICARE / Plan: MEDICARE PART A & B / Product Type: *No Product type* / Secondary Insurance: MEDICAID [place] Last Physical Therapy Recommendation: home with home health, home with daily check in with walker, front wheeled Last Occupational Therapy Recommendation: home with home health with to be determined Plan for discharge is: Pending Hospital Course and PT/OT Recommendations Outpatient Agency/Support Group Needs: Other Agency Referrals: I have met with the patient to: discuss discharge planning needs. provide the [facility], Office of Care Management letter from the [employer] pertaining to rehab referrals. provide a letter describing our affiliations within the [facility] and educate about their right to choose where referrals are sent. provide a list of Home Health Agencies / Durable Medical Equipment vendors which serve their preferred geographic area. provided patient with [facility] Star Quality Rating handout. They have requested referrals to: [facility]. [address] [place] [phone] Note routed to a Sander Hand who will communicate referrals to facilities and provide any required information. Transportation: family or friend will provide Barriers to discharge: Discharge planning Plan going forward: Care Management will continue to follow and assist with discharge planning and coordination of care as indicated. Anticipated Date of Discharge: 01/26/2023 Darryl Rodriguez RN Associated attestation - Yolis Crawford MD - 01/25/2023 2:01 PM EDT Attested in error * Plan of Care - Adrienne Calderon RN - 01/25/2023 2:49 AM EDT OUTCOME EVALUATION NOTE: PLAN MOVING FORWARD: Monitor I&O's DC planning INDIVIDUALIZED FALL PREVENTION INTERVENTIONS: Patient-specific fall risk factors per assessment: [current deficits]: unfamiliar environment, cables/wires/poles Assistance [level of assistance required for transfers and ambulation]: SBA w/ FWW Supervision [direct monitoring required during toileting and ADLs]: Eyes on Surveillance [continuous indirect monitoring]: Continuous telemetry, SpO2 monitoring, and purposeful rounding Patient-specific fall prevention interventions for sensory deficits provided, if applicable: SBA w/FWW when ambulating, non-skid footwear, clutter free environment, call mcbride within reach bed in lowest position with wheels locked. Pt educated on importance of calling for assistance with ambulation. CPG GOAL OUTCOME EVALUATION: Problem: Adult Inpatient Plan of Care Goal: Plan of Care Review Outcome: Ongoing (Interventions Implemented as Appropriate) Goal: Absence of Hospital-Acquired Illness or Injury Outcome: Ongoing (Interventions Implemented as Appropriate) Intervention: Identify and Manage Fall Risk Flowsheets (Taken 01/25/2023 0200) Safety Promotion/Fall Prevention: safety round/check completed Intervention: Prevent Skin Injury Flowsheets (Taken 01/25/2023 020) Body Position: position changed independently Intervention: Prevent and Manage VTE (Venous Thromboembolism) Risk Flowsheets (Taken 01/24/20231923) VTE Prevention/Management: anticoagulant therapy Intervention: Prevent Infection Flowsheets (Taken 01/24/20231923) Infection Prevention: environmental surveillance performed equipment surfaces disinfected hand hygiene promoted personal protective equipment utilized rest/sleep promoted single patient room provided Problem: Adjustment to Illness (Heart Failure) Goal: Optimal Coping Outcome: Ongoing (Interventions Implemented as Appropriate) Intervention: Support Psychosocial Response Flowsheets (Taken 01/24/20231923) Supportive Measures: active listening utilized positive reinforcement provided self-care encouraged Family/Support System Care: self-care encouraged Problem: Fall Injury Risk Goal: Absence of Fall and Fall-Related Injury Outcome: Ongoing (Interventions Implemented as Appropriate) Intervention: Identify and Manage Contributors Flowsheets (Taken 01/24/20231923) Medication Review/Management: medications reviewed high-risk medications identified Intervention: Promote Injury-Free Environment Flowsheets (Taken 01/25/2023 0200) Safety Promotion/Fall Prevention: safety round/check completed * Plan of Care - Adrienne Calderon RN - 01/23/2023 11:27 PM EDT OUTCOME EVALUATION NOTE: OUTCOME SUMMARY: Shift report received. Pt resting in bed comfortably watching TV. Denies any pain or discomfort. Ptrefused scheduled Olanzapine stating it sedates him too much. Benedict remains in place. Magnesium replaced. PLAN MOVING FORWARD: Monitor I&O's DC planning INDIVIDUALIZED FALL PREVENTION INTERVENTIONS: Patient-specific fall risk factors per assessment: [current deficits]: unfamiliar environment, cables/wires/poles Assistance [level of assistance required for transfers and ambulation]: SBA w/ FWW Supervision [direct monitoring required during toileting and ADLs]: Eyes on Surveillance [continuous indirect monitoring]: Continuous telemetry, SpO2 monitoring, and purposeful rounding Patient-specific fall prevention interventions for sensory deficits provided, if applicable: SBA when ambulating, non-skid footwear, clutter free environment, call mcbride within reach bed in lowest position with wheels locked. Pt educated on importance of calling for assistance with ambulation. CPG GOAL OUTCOME EVALUATION: Problem: Adult Inpatient Plan of Care Goal: Plan of Care Review Outcome: Ongoing (Interventions Implemented as Appropriate) Goal: Absence of Hospital-Acquired Illness or Injury Outcome: Ongoing (Interventions Implemented as Appropriate) Intervention: Identify and Manage Fall Risk Flowsheets (Taken 01/23/20232217) Safety Promotion/Fall Prevention: safety round/check completed Intervention: Prevent Skin Injury Flowsheets (Taken 01/23/20232217) Body Position: position changed independently Intervention: Prevent and Manage VTE (Venous Thromboembolism) Risk Flowsheets (Taken 01/23/20231951) VTE Prevention/Management: anticoagulant therapy Intervention: Prevent Infection Flowsheets (Taken 01/23/20231951) Infection Prevention: environmental surveillance performed equipment surfaces disinfected hand hygiene promoted personal protective equipment utilized rest/sleep promoted single patient room provided Problem: Adjustment to Illness (Heart Failure) Goal: Optimal Coping Outcome: Ongoing (Interventions Implemented as Appropriate) Intervention: Support Psychosocial Response Flowsheets (Taken 01/23/20231951) Supportive Measures: active listening utilized positive reinforcement provided self-care encouraged Family/Support System Care: self-care encouraged * Plan of Care - Miles Garcia RN - 01/22/2023 7:02 PM EDT Problem: Adult Inpatient Plan of Care Goal: Plan of Care Review Outcome: Ongoing (Interventions Implemented as Appropriate) Goal: Patient-Specific Goal (Individualized) Outcome: Ongoing (Interventions Implemented as Appropriate) Goal: Absence of Hospital-Acquired Illness or Injury Outcome: Ongoing (Interventions Implemented as Appropriate) Goal: Optimal Comfort and Wellbeing Outcome: Ongoing (Interventions Implemented as Appropriate) Goal: Readiness for Transition of Care Outcome: Ongoing (Interventions Implemented as Appropriate) * Brief Op Note - Layton Morris MD - 01/22/2023 3:40 PM EDT Images from the original note were not included. [facility] [place] [address] [address] CORONARY ANGIOGRAM AND PERCUTANEOUS CORONARY INTERVENTION REPORT Patient: Miguel Sanchez : 1955 MR number: [id number] Date of Service: 01/22/2023 Chute Greaser: Layton Morris MD Fellow: Mario Alberto Glasgow MD INDICATION: Miguel Sanchez is a 67 y.o. male with PMH significant for HFrEF (last known EF 45% in 2019), diabetes, hypertension, and hyperlipidemia who presents from [facility] ED after being redirected from [facility] clinic for one month of progressively worsening shortness of breath and associated chest painoccurring both at rest and on exertion. He is now undergoing right cardiac catheterization to evaluate his CHF. PROCEDURES PERFORMED: Right heart cath RESULTS: Hemodynamics: Hemodynamic assessment demonstrates: SUMMARY AND THERAPEUTIC RECOMMENDATIONS: Miguel Sanchez presents with CHF. RHC revealed mildly elevated left filling pressures. The case was reviewed and discussed with the patient and will be d/w Dr. Luna. I was present during the entire procedure and personally dictated or confirmed the above report. Layton Morris MD MS WALLACE 01/22/2023 4:56 PM * Care Management - Marii Nolasco RN - 01/22/2023 3:34 PM EDT OFFICE OF CARE MANAGEMENT PROGRESS NOTE LOS: Hospital Day 4 days Chart reviewed, care reviewed with primary team and at interdisciplinary rounds. Patient continues to meet inpatient level of care related to: renal function and continued monitoring. Decision Maker: Self Functional status prior to admission: Independent Home Environment: Others in the home: alone. Current Living Arrangements: home/apartment/condo. Accessibility Concerns: one level; elevator. Current Functional Ability: Independent, Assistive Person DME used at home: none DME Needed at Discharge: No Contacted by direct care RN because patient very worried about not being able to pay his rent on time. He does not have a definitive d/c date because it is pending his renal function per team. Patient aware. He usually goes to the bank and gets a nutrition counselor's check and pays it. CM tried to call the bank and the customer needs to be present for them to release any funds. I tried to call the [employer] [facility]- but they were closed. CM also tried to call his case folder Randa to see if she could help. Left message for her to call back. Will put in [employer] consult to meet with him on Wednesday to follow up with the housing co. To see if theywould be able to wait until he is able to pay the rent or if they have other options. He did say that he has 5 days crow after January 26. Patient is insured through: Primary Insurance: MEDICARE Payor: MEDICARE / Plan: MEDICARE PART A & B / Product Type: *No Product type* / Secondary Insurance: MEDICAID [place] Last Physical Therapy Recommendation: home with home health, home with daily check in with walker, front wheeled Last Occupational Therapy Recommendation: home with home health with to be determined Plan for discharge is: Pending Hospital Course and PT/OT Recommendations Outpatient Agency/Support Group Needs: Other [facility]: Randa Gonzalez at [phone] (case folder) Transportation: Medicaid transport- will need 24 hours in advance to arrange transport. Barriers to discharge: Discharge planning Plan going forward: Care Management will continue to follow and assist with discharge planning and coordination of care as indicated. Anticipated Date of Discharge: 01/29/2023 * Plan of Care - Mary Otto RN - 01/22/2023 1:08 PM EDT Images from the original note were not included. OUTCOME EVALUATION NOTE: OUTCOME SUMMARY: Patient A&Ox4 on RA. Denies any CP or SOB. NPO for most of day for RHC. Up in chair. Worked with OT. Nutrition visited with patient and provided healthy recipe options. Benedict catheter in place. NPO at midnight for RHC. Right AC clean, dry, intact. Patient will need 24 hour notice to contact [place] t ransportation services prior to discharge. Social work consult placed. PLAN MOVING FORWARD: Q4 VS ACHS FS and post 1 hour meal FS one time per day. Social work consult INDIVIDUALIZED FALL PREVENTION INTERVENTIONS: Patient-specific fall risk factors per assessment: [current deficits]: unfamiliar environment, wires/cords/lines Assistance [level of assistance required for transfers and ambulation]: SBA with walker Supervision [direct monitoring required during toileting and ADLs]: SBA with walker Surveillance [continuous indirect monitoring]: Telemetry, pulse ox Patient-specific fall prevention interventions for sensory deficits provided, if applicable: [X] Yes. Bed alarm set, clutter free environment, lighting adjusted, non-slips on, mobility aid and personal items within reach, calls as appropriate. CPG GOAL OUTCOME EVALUATION: Ongoing * Plan of Care - Mary Otto RN - 01/21/2023 1:38 PM EDT OUTCOME EVALUATION NOTE: OUTCOME SUMMARY: Patient A&Ox4 on RA. Denies any CP or SOB. NPO for most of day for RHC which was postponed to tomorrow. Up in chair. Worked with PT, ambulated 300 feet around unit without symptoms and denied theneed for breaks. Benedict catheter in place. NPO at midnight for RHC. PLAN MOVING FORWARD: Q4 VS ACHS FS and post 1 hour meal FS RHC INDIVIDUALIZED FALL PREVENTION INTERVENTIONS: Patient-specific fall risk factors per assessment: [current deficits]: unfamiliar environment, wires/cords/lines Assistance [level of assistance required for transfers and ambulation]: SBA with walker Supervision [direct monitoring required during toileting and ADLs]: SBA with walker Surveillance [continuous indirect monitoring]: Telemetry, pulse ox Patient-specific fall prevention interventions for sensory deficits provided, if applicable: [X] Yes. Bed alarm set, clutter free environment, lighting adjusted, non-slips on, mobility aid and personal items within reach, calls as appropriate. CPG GOAL OUTCOME EVALUATION: Ongoing * Plan of Care - Jayson Benoit Jr., MD - 01/21/2023 11:01 AM EDT Images from the original note were not included. Miguel Sanchez is a 67 y.o. male referred for cardiac catheterization in the setting of newly diagnoseddecompensated HFrEF and CLEM (suspected post-renal 2/2 BPH vs cardiorenal) who has had good urine output without improvement in renal function. Clinically the patient appears euvolemic. No recent or current illnesses. Patient denies fevers, chills. Patient denies any history of bleeding issues and specifically denies hematochezia, melena, hematemesis, intraabdominal bleeding, intracranial bleeding. Planned/pending surgeries: none Denies any history of diabetes. Current antiplatelets/anticoagulants: aspirin Diabetic medications: n/a NPO status: since 7 am Outpatient Medications Marked as Taking for the 01/18/23 encounter (Hospital Encounter) Medication Sig Dispense Refill metFORMIN (Glucophage) 500 mg tablet Take 500 mg by mouth 2 times daily (with meals). triamcinolone (KENALOG) 0.1 % cream Apply topically 2 times daily. gabapentin (NEURONTIN) 100 mg capsule Take 100 mg by mouth 3 times daily. simvastatin (ZOCOR) 10 mg tablet Take 10 mg by mouth nightly. naproxen sodium 220 mg Cap Take by mouth. BP 135/88 (BP Location (NBP): Right arm, Patient Position: Sitting) Pulse 75 Temp 36.6 ??C (97.9 ??F) (Oral) Resp 22 Ht 165.1 cm (5' 5) Wt 108.1 kg (238 lb 6.4 oz) SpO2 97% BMI 39.67 kg/m?? General - No acute distress. Well-groomed/nourished. Speech is normal HEENT - EOMI. No scleral icterus. Noninjected. Moist membranes. Respiratory: Clear to auscultation bilaterally. Good effort/excursion. Cardiac - RRR, 2/6 systolic murmur. No JVD. No AMARILYS. Abdomen - Soft, nontender/nondistended, normal active bowel sounds. Extremities - Warm. No clubbing or cyanosis. Radial Pulses: 2+ B/L Neuro - Limited exam. No deficits. ASA: 3: Patient with severe systemic disease Mallampati: Class III Labs reviewed and notable for: Lab Results Component Value Date WBC 8.1 01/21/2023 HGB 11.1 (L) 01/21/2023 HCT 32.4 (L) 01/21/2023 MCV 90.3 01/21/2023 PLATELET 202 01/21/2023 Lab Results Component Value Date CREATININE 5.70 (H) 01/21/2023 BUN 72 (H) 01/21/2023 NA 140 01/21/2023 K 4.2 01/21/2023 CL 100 01/21/2023 CO2 20 (L) 01/21/2023 Lab Results Component Value Date INR 1.3 01/18/2023 A/P: Plan for RHC to assess filling pressures in the setting of newly diagnosed HFrEF and severe CLEM. The indications, expected benefits, and potential risks of diagnostic or therapeutic catheterization were reviewed in detail with the patient. The potential for , myocardial infarction, arrhythmias, stroke, kidney failure, hemorrhage, allergic reaction to contrast, vascular complications and infection were reviewed in detail. The possibility of stenting and other percutaneous intervention, with associated risk, was reviewed. The possible need for emergent coronary artery bypass surgery wasreviewed. Alternatives were discussed and the patient's questions were answered. Following this discussion, the patient consented to the procedure and signed a form attesting to this. - Proceed as planned - Consent reviewed and signed - Sedation plan: moderate/conscious sedation - FULL CODE Jayson Benoit Jr, MD 01/21/2023 11:01 AM * Plan of Care - Miles Garcia RN - 01/20/2023 7:02 PM EDT Problem: Adult Inpatient Plan of Care Goal: Plan of Care Review Outcome: Ongoing (Interventions Implemented as Appropriate) Goal: Patient-Specific Goal (Individualized) Outcome: Ongoing (Interventions Implemented as Appropriate) Goal: Absence of Hospital-Acquired Illness or Injury Outcome: Ongoing (Interventions Implemented as Appropriate) Goal: Optimal Comfort and Wellbeing Outcome: Ongoing (Interventions Implemented as Appropriate) Goal: Readiness for Transition of Care Outcome: Ongoing (Interventions Implemented as Appropriate) Problem: Adjustment to Illness (Heart Failure) Goal: Optimal Coping Outcome: Ongoing (Interventions Implemented as Appropriate) Problem: Fluid Imbalance (Heart Failure) Goal: Fluid Balance Outcome: Ongoing (Interventions Implemented as Appropriate) * Plan of Care - Angel Shelton RN - 01/20/2023 6:00 PM EDT Problem: Adult Inpatient Plan of Care Goal: Plan of Care Review Outcome: Ongoing (Interventions Implemented as Appropriate) Goal: Patient-Specific Goal (Individualized) Outcome: Ongoing (Interventions Implemented as Appropriate) Goal: Absence of Hospital-Acquired Illness or Injury Outcome: Ongoing (Interventions Implemented as Appropriate) Goal: Optimal Comfort and Wellbeing Outcome: Ongoing (Interventions Implemented as Appropriate) Goal: Readiness for Transition of Care Outcome: Ongoing (Interventions Implemented as Appropriate) Problem: Adjustment to Illness (Heart Failure) Goal: Optimal Coping Outcome: Ongoing (Interventions Implemented as Appropriate) Problem: Fluid Imbalance (Heart Failure) Goal: Fluid Balance Outcome: Ongoing (Interventions Implemented as Appropriate) * Consult Note - Martin Coon MD - 01/20/2023 12:19 PM EDT UROLOGY CONSULT NOTE Reason for Consultation: post-obstructive CLEM Referring Provider: Chris Lim MD History of Present Illness: Miguel Sanchez is a 67 y.o. male with a history of schizophrenia, HFrEF (45%), DM, HTN currently admitted to cardiology for acute on chronic heart failure exacerbation and CLEM (Cr peak 5.81 on 01/18, baseline 1.5 in 09/2022) for whom Urology has been consulted for consideration of obstructive uropathy. Benedict catheter was placed on 01/18 with unclear amount of immediate output of urine. Cr has stayed relatively stable since that time, most recently 5.79. Patient states that he has had several years of difficulty with urination, including increased frequency, weak stream, dribbling, and most recently incontinence mostly at night but also occasionally during the day. With his episodes of incontinence, he does not feel the urge to void beforehand. He has never seen a Urologist before for these issues and has not ever taken any medications to help with these bothersome symptoms. He currently denies fever, abdominal or flank pain. Past Medical History: See HPI above Past Surgical History: No past surgical history on file. Social History: Social History Socioeconomic History Marital status: Single Spouse name: Not on file Number of children: Not on file Years of education: Not on file Highest education level: Not on file Occupational History Not on file Tobacco Use Smoking status: Never Smokeless tobacco: Not on file Substance and Sexual Activity Alcohol use: Never Drug use: Never Sexual activity: Not on file Other Topics Concern Not on file Social History Narrative Not on file Social Determinants of Health Financial Resource Strain: Not on file Food Insecurity: Not on file Transportation Needs: Not on file Physical Activity: Not on file Housing Stability: Not on file Family History: No family history on file. Allergies: No Known Allergies Review of Systems: As indicated in HPI, otherwise negative. Physical Exam: Temp: [36.6 ??C (97.9 ??F)-37 ??C (98.6 ??F)] Heart Rate: [63-68] Resp: [19-20] BP: (120-159)/(86-94) SpO2: [96 %-98 %] Heart Rate from SpO2: -- General: No acute distress. HEENT: NC/AT Card: RRR Lungs: Breathing comfortably on RA Abd: soft, nondistended, nontender : benedict catheter draining CYU Rectal: deferred Ext: wwp Labs: Recent Labs 01/20/23 0326 01/19/23 1415 01/19/23 1029 01/19/23 0621 01/19/23 0150 01/18/23 2216 WBC 8.1 -- -- -- 7.8 6.9 HGB 10.8* -- -- -- 10.1* 10.1* PLATELET 202 -- -- -- 173 196 NA 139 140 143 < > 143 145 K 4.5 4.4 4.4 < > 4.3 4.8 CL 102 102 107 < > 107 109* CO2 20* 22 21* < > 22 Not Perf BUN 67* 59* 60* < > 54* 60* CREATININE 5.79* 5.69* 5.63* < > 5.50* 5.81* CALCIUM 8.8 9.3 9.1 < > 8.9 9.2 MAGNESIUM 0.95 -- -- -- 0.80 0.87 INR -- -- -- -- -- 1.3 PTT -- -- -- -- -- 35 < > = values in this interval not displayed. Kidney function Recent Labs 01/20/23 0326 01/19/23 1415 01/19/23 1029 BUN 67* 59* 60* CREATININE 5.79* 5.69* 5.63* Estimated Creatinine Clearance: 13.9 mL/min (A) (based on SCr of 5.79 mg/dL (H)). Microbiology: Last 5 urine cultures: Lab Results Component Value Date URINECULTURE No growth (Less than 1,000 cfu/ml). 01/18/2023 Imaging: RBUS 01/19: IMPRESSION 1. Both kidneys are normal in size and parenchymal thickness but have mild collecting system dilatation. 2. A Benedict catheter is present in an otherwise empty and difficult to evaluate urinary bladder.. Assessment: Miguel Sanchez is a 67 y.o. male with a history of schizophrenia, HFrEF (45%), DM, HTN currently admitted to cardiology for acute on chronic heart failure exacerbation and CLEM (Cr peak 5.81 on 01/18, baseline 1.5 in 09/2022). The etiology of his CLEM is unclear given no recent Cr but is likely multifactorial consisting of his likely cardiorenal syndrome and possible obstructive uropathy from BPH although this is unclear given little records of output after catheterization. Patient's creatinine has notdeclined as expected after decompression, making cardiorenal etiology more likely. Ultrasound findings of mild bilateral dilation were shortly after decompression and should be re-imaged in the future to evaluate for resolution. Recommendations: - Maintain benedict catheter 5-7 days followed by TOV - Repeat renal ultrasound in several days to confirm resolution of hydronephrosis - Agree with starting Flomax and Proscar, although effects from Proscar will take months to a year to see - Referral to Urology as outpatient for further management of possible BPH This patient has been discussed with Dr. Brunson, Urology Attending. Consult service will continue to follow patient. XX Recommendations are above, please page if further consultation required. Martin Coon MD Urology PGY-2 Daytime Consult Pager #[phone] * Initial Assessments - Darryl Rodriguez RN - 01/19/2023 4:57 PM EDT Office of Care Management Initial Assessment Darryl Rodriguez RN reviewed record and discussed patient with Care Team. Source of Information: Team, bedside nurse, medical record, and Patient, Chart Review. Introduced self/reviewed role; services accepted. Admitted From: Transfer from another hospital Location: [facility] Reason for Hospitalization: Heart problems and kidney problems Covid Vaccination Status: 1st, 2nd & booster Last COVID test: na Past medical History: No past medical history on file. Hospitalizations Within the Past 30 Days: no previous admission in last 30 days Current Decision-Making Capacity: Self If AD's have not been completed the following surrogate would be surrogate decision maker per [place] decision making law. (Only good for 180 days) Any patient receiving care in [place] must abide by [place] law. The hierarchy for surrogate decision making is: (a) Patient???s spouse or civil union partner unless there is a divorce proceeding, separation agreement, or restraining order limiting that person???s relationship with the patient. (b) Any adult son or daughter of the patient. (c) Either parent of the patient. (d) Any adult brother or sister of the patient. (e) Any adult grandchild of the patient. (f) Any grandparent of the patient. (g) Any adult aunt, uncle, niece, or nephew of the patient. (h) A close friend of the patient. (i) The agent with financial power of immigration attorney or a conservator appointed in accordance with RSA 464-A. (j) The guardian of the patient???s estate. Advance Care Planning: Attempt Cardiopulmonary Resuscitation - Inpatient Received -Advanced Directive: Other (unclear if patient has one in place) Current Coping/Education/Information Needs: follow Current Functional Ability: Independent, Assistive Person Functional Status Prior to Admission: Independent Prior ADLs & IADLs: Independent with all ADLs & IADLs Home Environment: Others in the home: alone. Current Living Arrangements: home/apartment/condo. Accessibility Concerns:one level; elevator. Resource / Environmental Concerns: Resource/Environmental Concerns: none Current DME: none Home Address confirmed as: [address] [place] [address] [address] Social & Family Supports: All names listed below confirmed with patient as current and correct Extended Emergency Contact Information Primary Emergency Contact: Mony Abraham Mobile Relation: Sibling Current Care Provided by: self Provides Primary Care For: no one, unable/limited ability to care for self Caregiver if needed: none Quality of Family relationships: non-existent Community Resources being provided currently: outpatient psychiatric care ([facility]) Behavioral Health History: Schizophrenia unspecified; MMD recurrent unspecified; on Olanzapine 15mgQD per Miroslava Anguiano CM at [facility] Substance Use/Abuse confirmed: denies all Social History Tobacco Use Smoking Status Never Smokeless Tobacco Not on file 0 No problems reported 1-2 Low level 3-5 Moderate level 6-8 Substantial level 9- 10 Severe level 0 to 7 points: Low risk 8 to 15 points: Medium risk 16 to 19 points: High risk 20 to 40 points: Addiction likely Other Pertinent/Service Specific Information: na Health/Prescription Coverage: Primary Insurance: [place] Payor[place] / Plan: [place] PRIMARY CARE PLUS / Product Type: *No Product type* / Secondary Insurance: N/A ONLY if patient has Medicare A&B - Does this patient have secondary insurance?: Yes ; Prescription Coverage: Yes Preferred Pharmacy: [id number] AT [address] [id number] [place] Status: Patient is a : No Primary Care Provider confirmedReinier Arceo MD Patient/Caregiver Goals of Treatment: return home Potential Needs for Transition of Care: none Agency Referrals: Not Applicable Transportation: no concerns Transportation Anticipated: agency Concerns to be Addressed: discharge planning Assessment: Patient is admitted to Cardiology service for CHF Plan: Discharge to home when ready. A member of the Care Management team will continue to monitor progress, follow for continuity of care and assist with transition of care planning. Darryl Rodriguez RN * Plan of Care - Angel Shelton RN - 01/19/2023 3:51 PM EDT Problem: Adult Inpatient Plan of Care Goal: Plan of Care Review Outcome: Ongoing (Interventions Implemented as Appropriate) Goal: Patient-Specific Goal (Individualized) Outcome: Ongoing (Interventions Implemented as Appropriate) Goal: Absence of Hospital-Acquired Illness or Injury Outcome: Ongoing (Interventions Implemented as Appropriate) Goal: Optimal Comfort and Wellbeing Outcome: Ongoing (Interventions Implemented as Appropriate) Goal: Readiness for Transition of Care Outcome: Ongoing (Interventions Implemented as Appropriate) Problem: Adjustment to Illness (Heart Failure) Goal: Optimal Coping Outcome: Ongoing (Interventions Implemented as Appropriate) Problem: Fluid Imbalance (Heart Failure) Goal: Fluid Balance Outcome: Ongoing (Interventions Implemented as Appropriate) * Consult Note - Deonte Lugo MD - 01/19/2023 7:38 AM EDT Hypertension-Nephrology Consultation Miguel Sanchez [id number] ID: Miguel Sanchez is 67 y.o. yo male requiring inpatient consultation for CLEM at the request of Dr. Lim. Past Medical History: HFrEF on chronic diuretics, T2DM, HTN, HLD History of Present Illness: Briefly, pt presented to the hospital with a month of SOB, chest pain, worsening orthopnea and was found to have CLEM. Says that he is not aware of having any degree of kidney disease and does not ever remember seeing nephrology in the past. Last known renal function labs in September 2022 reportedly showed BUN 19 and Cr 1.5. He has more recently had some incontinence particularly at night when lying down for bed. Normal for him to get up 3-4 times per night to urinate. Does not recall ever being onany BPH medications (tamsulosin/flomax and finasteride not familiar to him). Has not noticed any significant edema in the last few weeks. Urine in the benedict catheter is quite bloody today, he describes the catheterization as having been traumatic and painful. Review of Systems: Full ROS performed. All positive symptoms noted above. Family History: No family history on file. Social History: Social History Socioeconomic History Marital status: Single Spouse name: Not on file Number of children: Not on file Years of education: Not on file Highest education level: Not on file Occupational History Not on file Tobacco Use Smoking status: Never Smokeless tobacco: Not on file Substance and Sexual Activity Alcohol use: Never Drug use: Never Sexual activity: Not on file Other Topics Concern Not on file Social History Narrative Not on file Social Determinants of Health Financial Resource Strain: Not on file Food Insecurity: Not on file Transportation Needs: Not on file Physical Activity: Not on file Housing Stability: Not on file Physical Examination: Last value 24 Hour Temperature Range Temp: [36.5 ??C (97.7 ??F)-36.8 ??C (98.2 ??F)] 12 Hour Heart Rate Range Heart Rate: [61-64] 24 Hour Blood Pressure Range BP: (142-158)/(84-90) Respiratory Rate Resp: 18 SpO2 SpO2: 97 % Body mass index is 40.27 kg/m??. General: Chronically ill appearing, not in distress, lying comfortably in the exam room. HEENT: CV: S1 & S2 faint but audible I do not appreciate a murmur on exam. Resp: Breathing is comfortable on room air, I do not appreciate crackles. Abd: Soft, non-tender, non-distended. Ext: No to trace edema in the lower extremities. Skin: No rashes or lesions on the exposed skin. Neuro: Alert & oriented, no focal deficits. Psych: Pleasant and calm, conversational attention is intact. sodium chloride 0.9 % (flush) 5 mL Intravenous BID aspirin EC 81 mg Oral Daily insulin lispro 0-8 Units Subcutaneous TID WC insulin lispro 1-4 Units Subcutaneous TID AC atorvastatin 80 mg Oral QPM heparin (porcine) 5,000 Units Subcutaneous Q8H JAMAL No Known Allergies Lab Results Component Value Date CREATININE 5.52 (H) 01/19/2023 CREATININE 5.50 (H) 01/19/2023 CREATININE 5.81 (H) 01/18/2023 CREATININE 5.71 (H) 01/18/2023 ESTGFR 11 (L) 01/19/2023 ESTGFR 11 (L) 01/19/2023 ESTGFR 10 (L) 01/18/2023 ESTGFR 10 (L) 01/18/2023 CO2 21 (L) 01/19/2023 CO2 22 01/19/2023 CO2 Not Perf 01/18/2023 CO2 21 (L) 01/18/2023 NA 143 01/19/2023 NA 143 01/19/2023 NA 145 01/18/2023 NA 144 01/18/2023 K 4.3 01/19/2023 K 4.3 01/19/2023 K 4.8 01/18/2023 K 4.6 01/18/2023 Lab Results Component Value Date HGB 10.1 (L) 01/19/2023 Lab Results Component Value Date CALCIUM 8.9 01/19/2023 CALCIUM 8.9 01/19/2023 CALCIUM 9.2 01/18/2023 PHOS 4.3 01/19/2023 PHOS 4.2 01/18/2023 Additional Studies: Renal U/S 01/19 shows bilateral pelvicaliectasis concerning for hydro (this is with benedict in place).Renal size is normal bilaterally with normal appearing parenchyma/cortex. TTE 01/19 shows reduced EF of 29%, mild to moderate mitral regurgitation, and a small pericardial effusion adjacent to the right atrium. Summary: Miguel Sanchez is 67 y.o. yo male requiring inpatient consultation for CLEM. Medical comorbidities include HLD, HTN, T2DM, and HFrEF (EF 29%). Pt is admitted in the setting of heart failure exacerbation. Cause of CLEM likely multifactorial. His renal imaging showing bilateral pelvicaliectasis and symptoms of incontinence are concerning for overflow incontinence. The most likely culprit given sex/age is BPH though other etiologies cannot be excluded. He also has HFrEF and his creatinine actually improved with diuretics overnight which strongly points toward an underlying cardiorenal physiology. # CLEM (Cr 1.5 in September 2022) # Obstructive Nephropathy # HFrEF # Cardiorenal physiology # Anemia - Would aim for diuretics again today with goal net negative 2+ liters today. Furosemide 80 seemed to be an effective dose, this can be repeated again. - Would recommend consulting/[facility] urology for help with obstruction as he may need a benedict catheter trial v.s. another intervention? He may also be a candidate for finasteride or tamsulosin but I would opt for their input. Would keep the benedict catheter in place for now. - Blood pressure is slightly elevated but I would hold on additional anti- hypertensives for the time being, particularly when we see what he does with volume removal. - Please note that I've added on a urine protein:creatinine ratio to the urine sample. I've also ordered iron studies and vitamin D/PTH levels with morning labs. This case was discussed with staff speech professor Dr. Morrow and the patient's primary team. Please contact me at phone: [phone] or pager: [phone] with any questions. Deonte Lugo MD Nephrology & Hypertension Fellow Associated attestation - Sixto Morrow MD - 01/19/2023 4:51 PM EDT I saw and discussed the patient with the fellow and agree with the assessment and plan in his note.67-year-old male admitted due to concerns of CHF exacerbation and following difficult Benedict placement, patient diuresed well. Creatinine down trending slightly. Agree with continued diuresis. He is br eathing comfortably on exam. Patient endorsing multiple signs symptoms which appear to be prostaticin nature. Agree with CKD work-up as dictated in patient's note documented in this encounter Plan of Treatment Upcoming Encounters Date Type Department Care Team (Late st Contact Info) Description 02/03/2024 10:00 AM EDT [place] [address] Austin Simon MD [facility] [place] [address] [place] [address] Lindy Box APRN [facility] [place] [address] [place] [address] Scheduled Referrals Name Type Priority Associated Diagnoses Orde r Schedule Referral to Home Health Outpatient Referral Routine Acute kidney injury Ordered: 01/26/2023 Referral to Urology Outpatient Referral Routine Acute kidney injury Ordered: 01/26/2023 documented as of this encounter Procedures Procedure Name Priority Date/Time Associated Diagnosis Comments POCT GLUCOSE Routine 01/27/2023 12:18 PM EDT POCT GLUCOSE Routine 01/27/2023 7:58 AM EDT HEMOGRAM Routine 01/27/2023 3:49 AM EDT DIFFERENTIAL, AUTOMATED Routine 01/28/20 3:49 AM EDT HC VENIPUNCTURE Routine 01/27/2023 3:49 AM EDT HC PHOSPHORUS, SERUM Routine 01/27/2023 3:49 AM EDT HC MAGNESIUM, SERUM Routine 01/27/2023 3 :49 AM EDT BASIC METABOLIC PANEL (NON-FASTING) Routine 01/27/2023 3:49 AM EDT POCT GLUCOSE Routine 01/26/2023 8:20 PM EDT POCT GLUCOSE Routine 01/26/2023 4:04 PM EDT POCT GLUCOSE Routine 01/26/2023 11:42 AM EDT POCT GLUCOSE Routine 01/26/2023 7:51 AM EDT HEMOGRAM Routine 01/26/2023 3:11 AM EDT DIFFERENTIAL, AUTOMATED Routine 01/27/20 3:11 AM EDT HC VENIPUNCTURE Routine 01/26/2023 3:11 AM EDT HC PHOSPHORUS, SERUM Routine 01/26/2023 3:11 AM EDT HC MAGNESIUM, SERUM Routine 01/26/2023 3 :11 AM EDT BASIC METABOLIC PANEL (NON-FASTING) Routine 01/26/2023 3:11 AM EDT POCT GLUCOSE Routine 01/25/2023 9:24 PM EDT POCT GLUCOSE Routine 01/25/2023 4:46 PM EDT US RETROPERITONEAL COMPLETE Routine 01/25/2023 3:50 PM EDT POCT GLUCOSE Routine 01/25/2023 11:20 AM EDT POCT GLUCOSE Routine 01/25/2023 7:44 AM EDT HEMOGRAM Routine 01/25/2023 4:06 AM EDT DIFFERENTIAL, AUTOMATED Routine 01/26/20 4:06 AM EDT HC VENIPUNCTURE Routine 01/25/2023 4:06 AM EDT HC PHOSPHORUS, SERUM Routine 01/25/2023 4:06 AM EDT HC MAGNESIUM, SERUM Routine 01/25/2023 4 :06 AM EDT BASIC METABOLIC PANEL (NON-FASTING) Routine 01/25/2023 4:06 AM EDT POCT GLUCOSE Routine 01/24/2023 10:12 PM EDT POCT GLUCOSE Routine 01/24/2023 4:41 PM EDT POCT GLUCOSE Routine 01/24/2023 12:10 PM EDT POCT GLUCOSE Routine 01/24/2023 7:51 AM EDT HC PHOSPHORUS, SERUM Routine 01/24/2023 2:56 AM EDT HC MAGNESIUM, SERUM Routine 01/24/2023 2 :56 AM EDT BASIC METABOLIC PANEL (NON-FASTING) Routine 01/24/2023 2:56 AM EDT POCT GLUCOSE Routine 01/23/2023 9:16 PM EDT POCT GLUCOSE Routine 01/23/2023 3:13 PM EDT POCT GLUCOSE Routine 01/23/2023 11:06 AM EDT POCT GLUCOSE Routine 01/23/2023 7:46 AM EDT HEMOGRAM Routine 01/23/2023 2:53 AM EDT DIFFERENTIAL, AUTOMATED Routine 01/24/20 2:53 AM EDT HC CBC,PLT & AUTO DIFF Routine 2:53 AM EDT HC PHOSPHORUS, SERUM Routine 01/23/2023 2:53 AM EDT HC MAGNESIUM, SERUM Routine 01/23/2023 2 :53 AM EDT BASIC METABOLIC PANEL (NON-FASTING) Routine 01/23/2023 2:53 AM EDT POCT GLUCOSE Routine 01/22/2023 7:28 PM EDT POCT GLUCOSE Routine 01/22/2023 5:30 PM EDT CARDIAC CATHETERIZATION Routine 01/23/20 5:10 PM EDT POCT GLUCOSE Routine 01/22/2023 12:35 PM EDT POCT GLUCOSE Routine 01/22/2023 7:52 AM EDT HEMOGRAM Routine 01/22/2023 2:42 AM EDT DIFFERENTIAL, AUTOMATED Routine 01/23/20 2:42 AM EDT HC CBC,PLT & AUTO DIFF Routine 2:42 AM EDT HC COMPLEMENT,C3 SERUM Routine 2:42 AM EDT HC PHOSPHORUS, SERUM Routine 01/22/2023 2:42 AM EDT HC MAGNESIUM, SERUM Routine 01/22/2023 2 :42 AM EDT BASIC METABOLIC PANEL (NON-FASTING) Routine 01/22/2023 2:42 AM EDT POCT GLUCOSE Routine 01/21/2023 6:41 PM EDT POCT GLUCOSE Routine 01/21/2023 3:57 PM EDT POCT GLUCOSE Routine 01/21/2023 11:32 AM EDT POCT GLUCOSE Routine 01/21/2023 9:38 AM EDT EKG 12-LEAD STAT 01/21/2023 8:33 AM EDT Heart failure, unspecified HF chronicity, unspecified heart failure type POCT GLUCOSE Routine 01/21/2023 8:05 AM EDT HEMOGRAM Routine 01/21/2023 2:42 AM EDT DIFFERENTIAL, AUTOMATED Routine 01/22/20 2:42 AM EDT HC VENIPUNCTURE Routine 01/21/2023 2:42 AM EDT HC PHOSPHORUS, SERUM Routine 01/21/2023 2:42 AM EDT HC MAGNESIUM, SERUM Routine 01/21/2023 2 :42 AM EDT BASIC METABOLIC PANEL (NON-FASTING) Routine 01/21/2023 2:42 AM EDT POCT GLUCOSE Routine 01/20/2023 7:45 PM EDT POCT GLUCOSE Routine 01/20/2023 4:38 PM EDT POCT GLUCOSE Routine 01/20/2023 4:14 PM EDT HC HEPATITIS C ANTIBODY Routine 01/21/20 3:23 PM EDT HEPATITIS C ANTIBODY Routine 01/20/2023 3:23 PM EDT HC HEPATITIS B CORE AB Routine 3:23 PM EDT HC VENIPUNCTURE Routine 01/20/2023 3:23 PM EDT HC HEPATITIS B SURFACE AB Routine 01/20/2023 3:23 PM EDT POCT GLUCOSE Routine 01/20/2023 11:33 AM EDT POCT GLUCOSE Routine 01/20/2023 7:24 AM EDT IMMUNOGLOBULIN FREE LIGHT CHAINS, SERUM Routine 01/20/2023 3:26 AM EDT HC PARATHYROID HORMONE(PTH INTACT Routine 01/20/2023 3:26 AM EDT IMMUNOGLOBULINS, QUANTITATIVE Routine 01/20/2023 3:26 AM EDT IMMUNOFIXATION ELECTROPHORESIS Routine 01/20/2023 3:26 AM EDT HEMOGRAM Routine 01/20/2023 3:26 AM EDT DIFFERENTIAL, AUTOMATED Routine 01/21/20 3:26 AM EDT HC IRON BINDING CAPACITY Routine 01/20/2023 3:26 AM EDT HC VITAMIN D TOTAL-25 HYDROXY Routine 01/20/2023 3:26 AM EDT HC VENIPUNCTURE Routine 01/20/2023 3:26 AM EDT C4 COMPLEMENT Routine 01/20/2023 3:26 AM EDT PROTEIN ELECTROPHORESIS, SERUM Routine 01/20/2023 3:26 AM EDT HC PHOSPHORUS, SERUM Routine 01/20/2023 3:26 AM EDT HC MAGNESIUM, SERUM Routine 01/20/2023 3 :26 AM EDT HC FERRITIN, SERUM Routine 01/20/2023 3: 26 AM EDT BASIC METABOLIC PANEL (NON-FASTING) Routine 01/20/2023 3:26 AM EDT POCT GLUCOSE Routine 01/19/2023 9:33 PM EDT POCT GLUCOSE Routine 01/19/2023 4:37 PM EDT BASIC METABOLIC PANEL (NON-FASTING) Timed 01/19/2023 2:15 PM EDT POCT GLUCOSE Routine 01/19/2023 11:31 AM EDT BASIC METABOLIC PANEL (NON-FASTING) Timed 01/19/2023 10:29 AM EDT ECHO COMPLETE W CONTRAST Routine 01/19/2023 8:59 AM EDT Heart failure, unspecified HF chronicity, unspecified heart failure type US RETROPERITONEAL COMPLETE Routine 01/19/2023 8:30 AM EDT POCT GLUCOSE Routine 01/19/2023 8:00 AM EDT POCT GLUCOSE Routine 01/19/2023 7:42 AM EDT BASIC METABOLIC PANEL (NON-FASTING) Timed 01/19/2023 6:21 AM EDT HEMOGRAM Routine 01/19/2023 1:50 AM EDT DIFFERENTIAL, AUTOMATED Routine 01/20/20 1:50 AM EDT HC CBC,PLT & AUTO DIFF Routine 1:50 AM EDT HC PHOSPHORUS, SERUM Routine 01/19/2023 1:50 AM EDT HC MAGNESIUM, SERUM Routine 01/19/2023 1 :50 AM EDT CK Routine 01/19/2023 1:50 AM EDT BASIC METABOLIC PANEL (NON-FASTING) Routine 01/19/2023 1:50 AM EDT POCT GLUCOSE Routine 01/19/2023 1:46 AM EDT BLOOD GAS VENOUS ([facility]) Timed 10:20 PM EDT HC TROPONIN T STAT 01/18/2023 10:16 PM EDT HC THYROID STIMULATING HORMONE, SERUM Routine 01/18/2023 10:16 PM EDT HEMOGRAM Routine 01/18/2023 10:16 PM EDT DIFFERENTIAL, AUTOMATED Routine 01/19/20 10:16 PM EDT HC PARTIAL THROMBOPLASTIN TIME Routine 01/18/2023 10:16 PM EDT HC PROTHROMBIN TIME Routine 01/18/2023 1 0:16 PM EDT HC CBC,PLT & AUTO DIFF Routine 10:16 PM EDT HC PHOSPHORUS, SERUM Routine 01/18/2023 10:16 PM EDT HC MAGNESIUM, SERUM Routine 01/18/2023 1 0:16 PM EDT HC LDL CHOLESTEROL, DIRECT Routine 01/18/2023 10:16 PM EDT HC CHOLESTEROL Routine 01/18/2023 10:16 PM EDT HC HEMOGLOBIN A1C Routine 01/18/2023 10: 16 PM EDT HC ACETAMINOPHEN, SERUM Routine 01/19/20 10:16 PM EDT HC SALICYLATES, SERUM Routine 01/18/2023 10:16 PM EDT BASIC METABOLIC PANEL (NON-FASTING) Routine 01/18/2023 10:16 PM EDT URINALYSIS MICROSCOPIC EXAM Routine 01/18/2023 10:13 PM EDT RAPID DRUG SCREEN, URINE (HEATHER REQUEST) Routine 01/18/2023 10:13 PM EDT RAPID DRUG SCREEN W/ CONFIRMATION, URINE Routine 01/18/2023 10:13 PM EDT HC UREA NITROGEN, URINE 24 HR Routine 01/18/2023 10:13 PM EDT PROTEIN/CREATININE RATIO, URINE Routine 01/18/2023 10:13 PM EDT HC CREATININE - NON BLOOD Routine 01/18/2023 10:13 PM EDT URINALYSIS WITH REFLEX CULTURE Routine 01/18/2023 10:13 PM EDT URINE CULTURE Routine 01/18/2023 10:13 PM EDT HC VENIPUNCTURE STAT 01/18/2023 7:46 PM EDT HC TROPONIN T STAT 01/18/2023 7:16 PM EDT HEMOGRAM STAT 01/18/2023 7:16 PM EDT DIFFERENTIAL, AUTOMATED STAT 01/19/20 7:16 PM EDT HC VENIPUNCTURE STAT 01/18/2023 7:16 PM EDT HC PROBNP STAT 01/18/2023 7:16 PM EDT COMPREHENSIVE METABOLIC PANEL (NON-FASTING) STAT 01/18/2023 7:16 PM EDT EKG 12-LEAD STAT 01/18/2023 6:52 PM EDT Heart failure, unspecified HF chronicity, unspecified heart failure type documented in this encounter Results * POCT Glucose (01/27/2023 12:18 PM EDT) POC Glucose 159 65 - 199 mg/dL [facility] Comment: Supplemental ranges: <140 mg/dL before meals <180 mg/dL all other times of the day Blood 01/27/2023 12:1 8 PM EDT 01/27/2023 12:18 PM EDT Mendel Luna MD POINT OF CARE TEST O RDERAMARCY Performing Organization Address City/[facility]/ZIP Co de Phone Number [facility] [place] [address] * POCT Glucose (01/27/2023 7:58 AM EDT) POC Glucose 173 65 - 199 mg/dL [facility] Comment: Supplemental ranges: <140 mg/dL before meals <180 mg/dL all other times of the day Blood 01/27/2023 7:58 AM EDT 01/27/2023 7:58 AM EDT Mendel Luna MD POINT OF CARE TEST O RDERAMARCY Performing Organization Address City/[facility]/ZIP Co de Phone Number [facility] [place] [address] * (ABNORMAL) Differential, Automated (01/27/2023 3:49 AM EDT) Neutrophils % 75.3 % [facility] Neutr Abs (ANC) 6.21(H) 1.70 - 6.10 x10(3)/[facility] LABORATORY Lymphocytes % 12.1 % [facility] Lymphocytes Abs 1.0 0.9 - 3.2 x10(3)/[facility]ORY Monocytes % 8.6 % [facility] Monocyte Abs 0.7 0.3 - 0.9 x10(3)/[facility]OR[facility]ORY Eosinophils % 2.9 % [facility] Eosinophils Abs 0.2 0.0 - 0.4 x10(3)/[facility] Basophils % 0.7 % [facility] Basophils Abs 0.1 0.0 - 0.1 x10(3)/[facility] LABORATORY Immature Gran % 0.40 % [facility] Comment: Immature granulocytes(IG's)percentage and absolute count will include metamyelocytes, myelocytes, and promyelocytes. Blood smears from CBCs yielding IG's will be scanned manually for concordance. If this scan disagrees with the automated IG or if promyelocytes are noted, a manual differential will be performed. Angelica Gran Abs 0.03 0.00 - 0.04 x10(3)/[facility] LABORATORY Blood 01/27/2023 3:49 AM EDT 01/27/2023 4:08 AM EDT Narrative Resulting Agency Comment Spec In Lab Kyle Mckeon MD HEMATOLOGY ORDERABLE S [facility] [place] [address] * (ABNORMAL) Hemogram (01/27/2023 3:49 AM EDT) WBC 8.2 4.0 - 9.5 x10(3)/[facility] LABORATORY RBC 3.45(L) 4.58 - 5.54 x10(6)/[facility]ORY Hemoglobin 10.6(L) 13.7 - 16.5 g/dL [facility] Hematocrit 31.5(L) 40.5 - 48.5 % [facility] MCV 91.3 82.9 - 93.1 fL [facility] MCH 30.7 27.5 - 32.1 pg [facility] MCHC 33.7 32.0 - 35.7 g/dL [facility] Platelets 163 145 - 357 x10(3)/[facility] LABORATORY RDWSD 42.7 36.0 - 45.0 [facility] LABORATORY RDWCV 13.0 11.4 - 13.8 % [facility] MPV 12.8 7.6 - 12.9 [facility] LABORATORY nRBC % Auto 0.0 % [facility] nRBC Abs Auto 0.000 0.000 - 0.000 x10(3)/[facility]ORY Blood 01/27/2023 3:49 AM EDT 01/27/2023 4:08 AM EDT Narrative Resulting Agency Comment Spec In Lab Kyle Mckeon MD HEMATOLOGY ORDERABLE S [facility] [place] [address] * (ABNORMAL) Phosphorus (01/27/2023 3:49 AM EDT) Phosphorus 5.0(H) 2.5 - 4.5 mg/dL [facility] Blood 01/27/2023 3:49 AM EDT 01/27/2023 4:08 AM EDT Narrative Resulting Agency Comment Spec In Lab Tanya Seaman MD CHEMISTRY ORDERABL ES Performing Organization Address City/[facility]/ZIP Co de Phone Number [facility] [place] [address] * Magnesium (01/27/2023 3:49 AM EDT) Magnesium 0.97 0.69 - 1.07 mmol/L [facility] Blood 01/27/2023 3:49 AM EDT 01/27/2023 4:08 AM EDT Narrative Resulting Agency Comment Spec In Lab Tanya Seaman MD CHEMISTRY ORDERABL ES [facility] [place] [address] * (ABNORMAL) Basic Metabolic Panel (non-fasting) (01/27/2023 3:49 AM EDT) Glucose Lvl 142 65 - 199 mg/dL [facility] Comment:Diabetes: >=200 mg/d L plus symptoms BUN 78(H) 10 - 20 mg/dL [facility] Creatinine 4.74(H) 0.80 - 1.50 mg/dL [facility] Sodium 137 135 - 145 mmol/L [facility] Potassium 4.8 3.5 - 5.0 mmol/L [facility] Comment: Please note: ??Patients with WBC >100,000 may have falsely elevated Potassium levels. ??For accurate Potassium quantification in these patients send serum separator tube (gold top) for subsequent determinations. ??Contact the Clinical Chemistry Laboratory if there are any questions. Chloride 107 98 - 107 mmol/L [facility] CO2 15(L) 22 - 31 mmol/L [facility] Anion Gap 15 5 - 15 mmol/L [facility] Calcium 9.4 8.5 - 10.5 mg/dL [facility] Estimated GFR 13(L) >=60 mL/min/1. 73 m?? [facility] Comment: This patient's estimated GFR [...] and symptoms in addition to eGFR. Blood 01/27/2023 3:49 AM EDT 01/27/2023 4:08 AM EDT Narrative Resulting Agency Comment Spec In Lab Tanya Seaman MD CHEMISTRY ORDERABL ES Performing Organization Address [facility]/ZIP Co de Phone Number [facility] [place] [address] * (ABNORMAL) POCT Glucose (01/26/2023 8:20 PM EDT) POC Glucose 202(H) 65 - 199 mg/dL [facility] Comment: Supplemental ranges: <140 mg/dL before meals <180 mg/dL all other times of the day Blood 01/26/2023 8:20 PM EDT 01/26/2023 8:20 PM EDT Mendel Luna MD POINT OF CARE TEST O RDERABLES Performing Organization Address [facility] Co de Phone Number [facility] [place] [address] * POCT Glucose (01/26/2023 4:04 PM EDT) POC Glucose 152 65 - 199 mg/dL [facility] Comment: Supplemental ranges: <140 mg/dL before meals <180 mg/dL all other times of the day Blood 01/26/2023 4:04 PM EDT 01/26/2023 4:04 PM EDT Mendel Luna MD POINT OF CARE TEST O RDERABLES Performing Organization Address [facility]/ZIP Co de Phone Number [facility] [place] [address] * POCT Glucose (01/26/2023 11:42 AM EDT) Pathologist [facility] POC Glucose 175 65 - 199 mg/dL [facility] Comment: Supplemental ranges: <140 mg/dL before meals <180 mg/dL all other times of the day Blood 01/26/2023 11:4 2 AM EDT 01/26/2023 11:42 AM EDT Mendel Luna MD POINT OF CARE TEST O RDERABLES Performing Organization Address City/[facility]/ZIP Co de Phone Number [facility] [place] [address] * POCT Glucose (01/26/2023 7:51 AM EDT) [facility] POC Glucose 137 65 - 199 mg/dL [facility] Comment: Supplemental ranges: <140 mg/dL before meals <180 mg/dL all other times of the day Blood 01/26/2023 7:51 AM EDT 01/26/2023 7:51 AM EDT Mendel Luna MD POINT OF CARE TEST O RDERABLES Performing Organization Address City/[facility] Co de Phone Number [facility] [place] [address] * Differential, Automated (01/26/2023 3:11 AM EDT) [facility] Neutrophils % 71.1 % [facility] Neutr Abs (ANC) 5.94 1.70 - 6.10 x10(3)/[facility] Lymphocytes % 15.3 % [facility] Lymphocytes Abs 1.3 0.9 - 3.2 x10(3)/[facility] Monocytes % 8.9 % [facility] Monocyte Abs 0.7 0.3 - 0.9 x10(3)/[facility] Eosinophils % 3.6 % [facility] Eosinophils Abs 0.3 0.0 - 0.4 x10(3)/[facility] Basophils % 0.7 % [facility] Basophils Abs 0.1 0.0 - 0.1 x10(3)/[facility] Immature Gran % 0.40 % [facility] Comment: Immature granulocytes(IG's)percentage and absolute count will include metamyelocytes, myelocytes, and promyelocytes. Blood smears from CBCs yielding IG's will be scanned manually for concordance. If this scan disagrees with the automated IG or if promyelocytes are noted, a manual differential will be performed. Angelica Gran Abs 0.03 0.00 - 0.04 x10(3)/[facility] Blood 01/26/2023 3:11 AM EDT 01/26/2023 3:40 AM EDT Narrative Resulting Agency Comment Spec In Lab Kyle Mckeon MD HEMATOLOGY ORDERABLE S Performing Organization Address City/State/[facility] Co de Phone Number [facility] [place] [address] * (ABNORMAL) Hemogram (01/26/2023 3:11 AM EDT) WBC 8.4 4.0 - 9.5 x10(3)/[facility]ORY RBC 3.25(L) 4.58 - 5.54 x10(6)/[facility] Hemoglobin 10.2(L) 13.7 - 16.5 g/dL [facility] Hematocrit 29.8(L) 40.5 - 48.5 % [facility] MCV 91.7 82.9 - 93.1 fL [facility] MCH 31.4 27.5 - 32.1 pg [facility] MCHC 34.2 32.0 - 35.7 g/dL [facility] Platelets 161 145 - 357 x10(3)/[facility] RDWSD 43.0 36.0 - 45.0 fL [facility] RDWCV 13.0 11.4 - 13.8 % [facility] MPV 13.0(H) 7.6 - 12.9 fL [facility] nRBC % Auto 0.0 % [facility] nRBC Abs Auto 0.000 0.000 - 0.000 x10(3)/mcL [facility] Blood 01/26/2023 3:11 AM EDT 01/26/2023 3:40 AM EDT Narrative Resulting Agency Comment Spec In Lab Kyle Mckeon MD HEMATOLOGY ORDERABLE S Performing Organization Address [facility]/ZIP Co de Phone Number [facility] [place] [address] * (ABNORMAL) Phosphorus (01/26/2023 3:11 AM EDT) Phosphorus 4.6(H) 2.5 - 4.5 mg/dL [facility] Blood 01/26/2023 3:11 AM EDT 01/26/2023 3:39 AM EDT Narrative Resulting Agency Comment Spec In Lab Tanya Seaman MD CHEMISTRY ORDERABL ES Performing Organization Address [facility] Co de Phone Number [facility] [place] [address] * Magnesium (01/26/2023 3:11 AM EDT) Magnesium 0.97 0.69 - 1.07 mmol/L [facility] Blood 01/26/2023 3:11 AM EDT 01/26/2023 3:39 AM EDT Narrative Resulting Agency Comment Spec In Lab Tanya Seaman MD CHEMISTRY ORDERABL ES Performing Organization Address [facility]/ZIP Co de Phone Number [facility] [place] [address] * (ABNORMAL) Basic Metabolic Panel (non-fasting) (01/26/2023 3:11 AM EDT) Glucose Lvl 127 65 - 199 mg/dL [facility] Comment:Diabetes: >=200 mg/d L plus symptoms BUN 77(H) 10 - 20 mg/dL [facility] Creatinine 4.91(H) 0.80 - 1.50 mg/dL [facility] Sodium 139 135 - 145 mmol/L [facility] Potassium 4.8 3.5 - 5.0 mmol/L [facility] Comment: Please note: ??Patients with WBC >100,000 may have falsely elevated Potassium levels. ??For accurate Potassium quantification in these patients send serum separator tube (gold top) for subsequent determinations. ??Contact the Clinical Chemistry Laboratory if there are any questions. Chloride 105 98 - 107 mmol/L [facility] CO2 18(L) 22 - 31 mmol/L [facility] Anion Gap 16(H) 5 - 15 mmol/L [facility] Calcium 9.3 8.5 - 10.5 mg/dL [facility] Estimated GFR 12(L) >=60 mL/min/1. 73 m?? [facility] Comment: This patient's estimated GFR [...] and symptoms in addition to eGFR. Blood 01/26/2023 3:11 AM EDT 01/26/2023 3:39 AM EDT Narrative Resulting Agency Comment Spec In Lab Tanya Seaman MD CHEMISTRY ORDERABL ES [facility] [place] [address] * POCT Glucose (01/25/2023 9:24 PM EDT) POC Glucose 181 65 - 199 mg/dL [facility] Comment: Supplemental ranges: <140 mg/dL before meals <180 mg/dL all other times of the day Blood 01/25/2023 9:24 PM EDT 01/25/2023 9:24 PM EDT Mendel Luna MD POINT OF CARE TEST O TESSA Performing Organization Address [facility] Co de Phone Number [facility] [place] [address] * POCT Glucose (01/25/2023 4:46 PM EDT) POC Glucose 153 65 - 199 mg/dL [facility] Comment: Supplemental ranges: <140 mg/dL before meals <180 mg/dL all other times of the day Blood 01/25/2023 4:46 PM EDT 01/25/2023 4:46 PM EDT Mendel Luna MD POINT OF CARE TEST O TESSA Performing Organization Address [facility] Co de Phone Number [facility] [place] [address] * US Retroperitoneal Complete (01/25/2023 3:50 PM EDT) Anatomical Region Laterality Modality Abdomen Ultrasound 01/25/2023 3:47 PM EDT Impressions 01/25/2023 4:11 PM EDT 1. ??No significant interval change in mild right pelvicaliectasis. 2. ??No left-sided collecting system dilatation. 3. ??Normal bilateral renal cortical thickness and corticomedullary differentiation. 4. ??Bladder not distended for evaluation, Benedict catheter in place. Electronically signed by: Elsie Garza MD, [facility] ([phone]), at 01/25/2023 4:02 PM Thank you for letting us participate in the care of this patient. If you are a health care provider and have any questions regarding this report, please contact the number above. For patients who have questions, please contact the health rn primary care that requested your imaging first. ?Elsie Garza, [facility] Drawbridge Operator Electronically Signed Final Report ?? 01/25/2023 04:10 pm Narrative 01/25/2023 4:11 PM EDT Renal ? (Signed Final 01/25/2023 04:10 pm) PATIENT INFO: ID #: ? [id number] ?: ??[birth year] (67 yrs)(M) Name: ? MIGUEL SANCHEZ ? Visit Date: 01/25/2023 03:47 pm PERFORMED BY: Attending: ?Kayla OTT, Elsie Conley Performed By: ? Paola Pritchard RDMS Referred By: ?MENDEL LUNA Location: ? [place] SERVICE(S) PROVIDED: URETRO - Retroperitoneal Complete - [id number] ? [id number] INDICATIONS: 67yo male with CLEM, repeat U/S to assess change in hydronephrosis COMPARISON: Ultrasound: Renal/Bladder 01/19/2023 RIGHT KIDNEY: Size (cm) ?L: ??11.6 Cortical Thickness: ?Normal Cortical Echogenicity: ?? Normal Hydronephrosis: ?Mild pelvicaliectasis Comment: ?No renal calculi seen. LEFT KIDNEY: Size (cm) ?L: ??13.2 Cortical Thickness: ?Normal Cortical Echogenicity: ?? Normal Hydronephrosis: ?No sonographic evidence Comment: ?No renal calculi seen. URINARY BLADDER: Comment: ?Empty bladder, patient has Benedict catheter. Procedure Note Elsie Garza MD - 01/25/2023 Renal (Signed Final 01/25/2023 04:10 pm) PATIENT INFO: ID #: [id number] : [birth year] (67 yrs)(M) Name: MIGUEL SANCHEZ Visit Date: 01/25/2023 03:47 pm PERFORMED BY: Attending: Elsie Garza MD Performed By: Paola Pritchard RDMS Referred By: MENDEL LUNA Location: [place] SERVICE(S) PROVIDED: URETRO - Retroperitoneal Complete - [id number] INDICATIONS: 67yo male with CLEM, repeat U/S to assess change in hydronephrosis COMPARISON: Ultrasound: Renal/Bladder 01/19/2023 RIGHT KIDNEY: Size (cm) L: 11.6 Cortical Thickness: Normal Cortical Echogenicity: Normal Hydronephrosis: Mild pelvicaliectasis Comment: No renal calculi seen. LEFT KIDNEY: Size (cm) L: 13.2 Cortical Thickness: Normal Cortical Echogenicity: Normal Hydronephrosis: No sonographic evidence Comment: No renal calculi seen. URINARY BLADDER: Comment: Empty bladder, patient has Benedict catheter. IMPRESSION 1. No significant interval change in mild right pelvicaliectasis. 2. No left-sided collecting system dilatation. 3. Normal bilateral renal cortical thickness and corticomedullary differentiation. 4. Bladder not distended for evaluation, Benedict catheter in place. Electronically signed by: Elsie Garza MD, [facility] ([phone]), at 01/25/2023 4:02 PM Thank you for letting us participate in the care of this patient. If you are a health care provider and have any questions regarding this report, please contact the number above. For patients who have questions, please contact the health rn primary care that requested your imaging first. Elsie Garza, [facility] Drawbridge Operator Electronically Signed Final Report 01/25/2023 04:10 pm Mendel Luna MD IMG US GEN ORDERABLE S * POCT Glucose (01/25/2023 11:20 AM EDT) POC Glucose 182 65 - 199 mg/dL [facility] Comment: Supplemental ranges: <140 mg/dL before meals <180 mg/dL all other times of the day Blood 01/25/2023 11:2 0 AM EDT 01/25/2023 11:20 AM EDT Mendel Luna MD POINT OF CARE TEST O RDERABLES [facility] [place] [address] * POCT Glucose (01/25/2023 7:44 AM EDT) Pathologist [facility] [place] POC Glucose 155 65 - 199 mg/dL [facility] Comment: Supplemental ranges: <140 mg/dL before meals <180 mg/dL all other times of the day Blood 01/25/2023 7:44 AM EDT 01/25/2023 7:44 AM EDT Mendel Luna MD POINT OF CARE TEST O RDERABLES [facility] [place] [address] * Differential, Automated (01/25/2023 4:06 AM EDT) Pathologist [facility] [place] Neutrophils % 72.7 % [facility] Neutr Abs (ANC) 5.96 1.70 - 6.10 x10(3)/[facility] LABORATORY Lymphocytes % 14.7 % [facility] Lymphocytes Abs 1.2 0.9 - 3.2 x10(3)/[facility] LABOR[facility]ORY Monocytes % 8.2 % [facility] Monocyte Abs 0.7 0.3 - 0.9 x10(3)/[facility] LABORATORY Eosinophils % 3.5 % [facility] Eosinophils Abs 0.3 0.0 - 0.4 x10(3)/[facility]OR[facility]ORY Basophils % 0.7 % [facility] Basophils Abs 0.1 0.0 - 0.1 x10(3)/[facility] LABORATORY Immature Gran % 0.20 % [facility] Comment: Immature granulocytes(IG's)percentage and absolute count will include metamyelocytes, myelocytes, and promyelocytes. Blood smears from CBCs yielding IG's will be scanned manually for concordance. If this scan disagrees with the automated IG or if promyelocytes are noted, a manual differential will be performed. Angelica Gran Abs 0.02 0.00 - 0.04 x10(3)/[facility] LABORATORY Blood 01/25/2023 4:06 AM EDT 01/25/2023 4:17 AM EDT Narrative Resulting Agency Comment Spec In Lab Kyle Mckeon MD HEMATOLOGY ORDERABLE S [facility] [place] [address] * (ABNORMAL) Hemogram (01/25/2023 4:06 AM EDT) WBC 8.2 4.0 - 9.5 x10(3)/[facility] LABORATORY RBC 3.38(L) 4.58 - 5.54 x10(6)/[facility]OR[facility]ORY Hemoglobin 10.6(L) 13.7 - 16.5 g/dL [facility] Hematocrit 30.7(L) 40.5 - 48.5 % [facility] MCV 90.8 82.9 - 93.1 [facility] MCH 31.4 27.5 - 32.1 pg [facility] MCHC 34.5 32.0 - 35.7 g/dL [facility] Platelets 170 145 - 357 x10(3)/[facility] RDWSD 42.1 36.0 - 45.0 [facility] LABORATORY RDWCV 12.8 11.4 - 13.8 % [facility] MPV 12.6 7.6 - 12.9 [facility] LABORATORY nRBC % Auto 0.0 % [facility] nRBC Abs Auto 0.000 0.000 - 0.000 x10(3)/mcL [facility] Blood 01/25/2023 4:06 AM EDT 01/25/2023 4:17 AM EDT Narrative Resulting Agency Comment Spec In Lab Kyle Mckeon MD HEMATOLOGY ORDERABLE S Performing Organization Address City/[facility]/ZIP Co de Phone Number [facility] [place] [address] * (ABNORMAL) Phosphorus (01/25/2023 4:06 AM EDT) Phosphorus 4.9(H) 2.5 - 4.5 mg/dL [facility] Blood 01/25/2023 4:06 AM EDT 01/25/2023 4:17 AM EDT Narrative Resulting Agency Comment Spec In Lab Tanya Seaman MD CHEMISTRY ORDERABL ES Performing Organization Address [facility] Co de Phone Number [facility] [place] [address] * Magnesium (01/25/2023 4:06 AM EDT) Magnesium 1.00 0.69 - 1.07 mmol/L [facility] Blood 01/25/2023 4:06 AM EDT 01/25/2023 4:17 AM EDT Narrative Resulting Agency Comment Spec In Lab Tanya Seaman MD CHEMISTRY ORDERABL ES Performing Organization Address [facility] Co de Phone Number [facility] [place] [address] * (ABNORMAL) Basic Metabolic Panel (non-fasting) (01/25/2023 4:06 AM EDT) Glucose Lvl 148 65 - 199 mg/dL [facility] Comment:Diabetes: >=200 mg/d L plus symptoms BUN 78(H) 10 - 20 mg/dL [facility] Creatinine 5.06(H) 0.80 - 1.50 mg/dL [facility] Sodium 139 135 - 145 mmol/L [facility] Potassium 4.5 3.5 - 5.0 mmol/L [facility] Comment: Please note: ??Patients with WBC >100,000 may have falsely elevated Potassium levels. ??For accurate Potassium quantification in these patients send serum separator tube (gold top) for subsequent determinations. ??Contact the Clinical Chemistry Laboratory if there are any questions. Chloride 103 98 - 107 mmol/L [facility] CO2 19(L) 22 - 31 mmol/L [facility] Anion Gap 17(H) 5 - 15 mmol/L [facility] Calcium 9.5 8.5 - 10.5 mg/dL [facility] Estimated GFR 12(L) >=60 mL/min/1. 73 m?? [facility] Comment: This patient's estimated GFR [...] and symptoms in addition to eGFR. Blood 01/25/2023 4:06 AM EDT 01/25/2023 4:17 AM EDT Narrative Resulting Agency Comment Spec In Lab Tanya Seaman MD CHEMISTRY ORDERABL ES [facility] [place] [address] * POCT Glucose (01/24/2023 10:12 PM EDT) POC Glucose 175 65 - 199 mg/dL [facility] Comment: Supplemental ranges: <140 mg/dL before meals <180 mg/dL all other times of the day Blood 01/24/2023 10:1 2 PM EDT 01/24/2023 10:12 PM EDT Mendel Luna MD POINT OF CARE TEST O RDERAMARCY Performing Organization Address City/[facility]/ZIP Co de Phone Number [facility] [place] [address] * POCT Glucose (01/24/2023 4:41 PM EDT) POC Glucose 157 65 - 199 mg/dL [facility] Comment: Supplemental ranges: <140 mg/dL before meals <180 mg/dL all other times of the day Blood 01/24/2023 4:41 PM EDT 01/24/2023 4:41 PM EDT Mendel Luna MD POINT OF CARE TEST O RDERABLES Performing Organization Address [facility]/ZIP Co de Phone Number [facility] [place] [address] * POCT Glucose (01/24/2023 12:10 PM EDT) POC Glucose 177 65 - 199 mg/dL [facility] Comment: Supplemental ranges: <140 mg/dL before meals <180 mg/dL all other times of the day Blood 01/24/2023 12:1 0 PM EDT 01/24/2023 12:10 PM EDT Mendel Luna MD POINT OF CARE TEST O RDERABLES Performing Organization Address City/[facility] Co de Phone Number [facility] [place] [address] * POCT Glucose (01/24/2023 7:51 AM EDT) POC Glucose 175 65 - 199 mg/dL [facility] Comment: Supplemental ranges: <140 mg/dL before meals <180 mg/dL all other times of the day Blood 01/24/2023 7:51 AM EDT 01/24/2023 7:51 AM EDT Mendel Luna MD POINT OF CARE TEST O RDERABLES Performing Organization Address [facility] Co de Phone Number [facility] [place] [address] * (ABNORMAL) Phosphorus (01/24/2023 2:56 AM EDT) Phosphorus 5.0(H) 2.5 - 4.5 mg/dL [facility] Blood 01/24/2023 2:56 AM EDT 01/24/2023 3:06 AM EDT Narrative Resulting Agency Comment Spec In Lab Tanya Seaman MD CHEMISTRY ORDERABL ES Performing Organization Address [facility] Co de Phone Number [facility] [place] [address] * Magnesium (01/24/2023 2:56 AM EDT) Magnesium 0.94 0.69 - 1.07 mmol/L [facility] Blood 01/24/2023 2:56 AM EDT 01/24/2023 3:06 AM EDT Narrative Resulting Agency Comment Spec In Lab Tanya Seaman MD CHEMISTRY ORDERABL ES Performing Organization Address [facility] de Phone Number [facility] [place] [address] * (ABNORMAL) Basic Metabolic Panel (non-fasting) (01/24/2023 2:56 AM EDT) Glucose Lvl 131 65 - 199 mg/dL [facility] Comment:Diabetes: >=200 mg/d L plus symptoms BUN 80(H) 10 - 20 mg/dL [facility] Creatinine 5.46(H) 0.80 - 1.50 mg/dL [facility] Sodium 139 135 - 145 mmol/L [facility] Potassium 4.5 3.5 - 5.0 mmol/L [facility] Comment: Please note: ??Patients with WBC >100,000 may have falsely elevated Potassium levels. ??For accurate Potassium quantification in these patients send serum separator tube (gold top) for subsequent determinations. ??Contact the Clinical Chemistry Laboratory if there are any questions. Chloride 104 98 - 107 mmol/L [facility] CO2 21(L) 22 - 31 mmol/L [facility] Anion Gap 14 5 - 15 mmol/L [facility] Calcium 9.3 8.5 - 10.5 mg/dL [facility] Estimated GFR 11(L) >=60 mL/min/1. 73 m?? [facility] Comment: This patient's estimated GFR [...] and symptoms in addition to eGFR. Blood 01/24/2023 2:56 AM EDT 01/24/2023 3:06 AM EDT Narrative Resulting Agency Comment Spec In Lab Tanya Seaman MD CHEMISTRY ORDERABL ES [facility] [place] [address] * POCT Glucose (01/23/2023 9:16 PM EDT) POC Glucose 150 65 - 199 mg/dL [facility] Comment: Supplemental ranges: <140 mg/dL before meals <180 mg/dL all other times of the day Blood 01/23/2023 9:16 PM EDT 01/23/2023 9:16 PM EDT Mendel Luna MD POINT OF CARE TEST O RDERABLES Performing Organization Address City/[facility] Co de Phone Number [facility] [place] [address] * (ABNORMAL) POCT Glucose (01/23/2023 3:13 PM EDT) POC Glucose 246(H) 65 - 199 mg/dL [facility] Comment: Supplemental ranges: <140 mg/dL before meals <180 mg/dL all other times of the day Blood 01/23/2023 3:13 PM EDT 01/23/2023 3:13 PM EDT Mendel Luna MD POINT OF CARE TEST O RDERAMARCY Performing Organization Address [facility] Co de Phone Number [facility] [place] [address] * POCT Glucose (01/23/2023 11:06 AM EDT) POC Glucose 163 65 - 199 mg/dL [facility] Comment: Supplemental ranges: <140 mg/dL before meals <180 mg/dL all other times of the day Blood 01/23/2023 11:0 6 AM EDT 01/23/2023 11:06 AM EDT Mendel Luna MD POINT OF CARE TEST O RDERABLES Performing Organization Address [facility] Co de Phone Number [facility] [place] [address] * POCT Glucose (01/23/2023 7:46 AM EDT) POC Glucose 165 65 - 199 mg/dL [facility] Comment: Supplemental ranges: <140 mg/dL before meals <180 mg/dL all other times of the day Blood 01/23/2023 7:46 AM EDT 01/23/2023 7:46 AM EDT Mendel Luna MD POINT OF CARE TEST O RDERABLES [facility] [place] [address] * Differential, Automated (01/23/2023 2:53 AM EDT) Neutrophils % 72.0 % [facility] Neutr Abs (ANC) 5.86 1.70 - 6.10 x10(3)/[facility] LABORATORY Lymphocytes % 13.8 % [facility] Lymphocytes Abs 1.1 0.9 - 3.2 x10(3)/[facility] Monocytes % 9.2 % [facility] Monocyte Abs 0.8 0.3 - 0.9 x10(3)/[facility] Eosinophils % 4.1 % [facility] Eosinophils Abs 0.3 0.0 - 0.4 x10(3)/[facility] Basophils % 0.7 % [facility] Basophils Abs 0.1 0.0 - 0.1 x10(3)/[facility]ORAT[facility] Immature Gran % 0.20 % [facility] Comment: Immature granulocytes(IG's)percentage and absolute count will include metamyelocytes, myelocytes, and promyelocytes. Blood smears from CBCs yielding IG's will be scanned manually for concordance. If this scan disagrees with the automated IG or if promyelocytes are noted, a manual differential will be performed. Angelica Gran Abs 0.02 0.00 - 0.04 x10(3)/[facility] LABORATORY Blood 01/23/2023 2:53 AM EDT 01/23/2023 3:05 AM EDT Narrative Resulting Agency Comment Spec In Lab Kyle Mckeon MD HEMATOLOGY ORDERABLE S [facility] [place] [address] * (ABNORMAL) Hemogram (01/23/2023 2:53 AM EDT) WBC 8.1 4.0 - 9.5 x10(3)/[facility] LAB[facility] RBC 3.41(L) 4.58 - 5.54 x10(6)/[facility] Hemoglobin 10.4(L) 13.7 - 16.5 g/dL [facility] Hematocrit 30.7(L) 40.5 - 48.5 % [facility] MCV 90.0 82.9 - 93.1 [facility] LABOR[facility]ORY MCH 30.5 27.5 - 32.1 pg [facility] MCHC 33.9 32.0 - 35.7 g/dL [facility] Platelets 182 145 - 357 x10(3)/[facility] LAB[facility]ORY RDWSD 42.3 36.0 - 45.0 [facility] RDWCV 13.0 11.4 - 13.8 % [facility] MPV 12.1 7.6 - 12.9 [facility] nRBC % Auto 0.0 % [facility] nRBC Abs Auto 0.000 0.000 - 0.000 x10(3)/[facility] LAB[facility] Blood 01/23/2023 2:53 AM EDT 01/23/2023 3:05 AM EDT Narrative Resulting Agency Comment Spec In Lab Kyle Mckeon MD HEMATOLOGY ORDERABLE S [facility] [place] [address] * (ABNORMAL) Phosphorus (01/23/2023 2:53 AM EDT) Phosphorus 5.8(H) 2.5 - 4.5 mg/dL [facility] Blood 01/23/2023 2:53 AM EDT 01/23/2023 3:05 AM EDT Narrative Resulting Agency Comment Spec In Lab Tanya Seaman MD CHEMISTRY ORDERABL ES Performing Organization Address [facility] Co de Phone Number [facility] [place] [address] * Magnesium (01/23/2023 2:53 AM EDT) Magnesium 0.96 0.69 - 1.07 mmol/L [facility] Blood 01/23/2023 2:53 AM EDT 01/23/2023 3:05 AM EDT Narrative Resulting Agency Comment Spec In Lab Tanya Seaman MD CHEMISTRY ORDERABL ES Performing Organization Address [facility] Co de Phone Number [facility] [place] [address] * (ABNORMAL) Basic Metabolic Panel (non-fasting) (01/23/2023 2:53 AM EDT) Glucose Lvl 131 65 - 199 mg/dL [facility] Comment:Diabetes: >=200 mg/d L plus symptoms BUN 81(H) 10 - 20 mg/dL [facility] Creatinine 5.47(H) 0.80 - 1.50 mg/dL [facility] Sodium 139 135 - 145 mmol/L [facility] Potassium 4.4 3.5 - 5.0 mmol/L [facility] Comment: Please note: ??Patients with WBC >100,000 may have falsely elevated Potassium levels. ??For accurate Potassium quantification in these patients send serum separator tube (gold top) for subsequent determinations. ??Contact the Clinical Chemistry Laboratory if there are any questions. Chloride 105 98 - 107 mmol/L [facility] CO2 20(L) 22 - 31 mmol/L [facility] Anion Gap 14 5 - 15 mmol/L [facility] Calcium 9.2 8.5 - 10.5 mg/dL [facility] Estimated GFR 11(L) >=60 mL/min/1. 73 m?? [facility] Comment: This patient's estimated GFR [...] and symptoms in addition to eGFR. Blood 01/23/2023 2:53 AM EDT 01/23/2023 3:05 AM EDT Narrative Resulting Agency Comment Spec In Lab Tanya Seaman MD CHEMISTRY ORDERABL ES Performing Organization Address [facility]/ZIP Co de Phone Number [facility] [place] [address] * (ABNORMAL) POCT Glucose (01/22/2023 7:28 PM EDT) POC Glucose 237(H) 65 - 199 mg/dL [facility] Comment: Supplemental ranges: <140 mg/dL before meals <180 mg/dL all other times of the day Blood 01/22/2023 7:28 PM EDT 01/22/2023 7:28 PM EDT Mendel Luna MD POINT OF CARE TEST O RDERABLES Performing Organization Address City/[facility]/ZIP Co de Phone Number [facility] [place] [address] * POCT Glucose (01/22/2023 5:30 PM EDT) POC Glucose 130 65 - 199 mg/dL [facility] Comment: Supplemental ranges: <140 mg/dL before meals <180 mg/dL all other times of the day Blood 01/22/2023 5:30 PM EDT 01/22/2023 5:30 PM EDT Mendel Luna MD POINT OF CARE TEST O RDERABLES [facility] [place] [address] * CARDIAC CATHETERIZATION (01/22/2023 5:10 PM EDT) Anatomical Region Laterality Modality Other Narrative 01/22/2023 5:07 PM EDT ?[facility] [place] ? Cardiac Catheterization/Intervention Report ? Patient Name: Miguel Sanchez ? Procedure Date: 01/22/2023 ? A #: [id number] ? Primary Physician: Morris, Layton P ? Case #: [id number] ? File Name: [id number] ? Catheterization Order Number: [id number] ? [facility] ? Final Report [place], [place] ? Patient Name: ? Miguel Sanchez ? ID#: ?[id number] ? : ?1955 ? Procedure Date: ? January 22, 2023 ?Case #: ? [id number] ? Room: ? 5 ? Case Physician: ? Layton Morris MEugenia. ?Start: ?16:35 ?Fellow: ? Max J Myah, M.D. ? Admission: ??01/18/2023 ? Referring Physician: ??Elham Dykes M.D. ? Procedures: ?* Right Heart Catheterization ?* Oximetry ? History ?Migeul Sanchez is a 67 year old man. The patient's smoking status is Never. ?The patient has a history of CHF. The CHF is NYHA Functional Class III, ?is newly diagnosed and is classified as Systolic. Prior to the initiation ?of this procedure, the patient was designated as ASA Class III. The [facility] ?clinical frailty scale is 5: Mildly Frail. ? Diagnostic Tests: ?Medications Prior to Procedure: ? Angiotensin Converting Enzyme Inhibitor, Aspirin, Beta Kranthi and ? Statin. ? Indications for Diagnostic Cath: ?The priority of the diagnostic procedure was Urgent. The indication for ?the cathead worker visit is cardiomyopathy. Chest pain symptom assessment was: ?Asymptomatic. ? Technique: ?A 5 SLFr sheath was inserted in the right median antecubital vein ?utilizing the Seldinger technique. Right heart catheterization was ?performed utilizing a 5Fr BALLOON WEDGE catheter. Radiation: Fluoro time ?was 4.7 minutes, dose area product was 13 mGYcm2 and air kerma was 66 ?mGY. See the case log for additional details. ? Hemodynamics: ?Right Heart Pressures ? Resting: ? Syst Diast ? EDP ?a ?v ? m ?RA ? 13 ?11 ? 8 ?RV 38 ?8 ?PA 28 ?27 ?25 ?PCW ?16 ?17 ?18 ? Hemodynamic Profile: ?Profile 1 ?CO ? 4.60 ?CI ? 2.20 ?TPR ?435 ?PVR ?122 ?Technique ?Estimated Junior ?Left Heart Pressures ? Resting: ? Syst Diast ? EDP ?a ?v ? m ?Ao 166 ?? 98 ? Oximetry: ?Location ? %Sat ?Location ?%Sat ?Superior Vena Cava ? 58.0 ?Main Pulmonary Artery ?? 56.0 ?o2 sat ? 99.0 ? Indication for Selected Procedures: ?Right Heart catheterization was initiated for Acute on chronic systolic ?(congestive) heart failure (I50.23). ? Vascular Access: ?Vascular Access Management: ? Mechanical Compression of the right median antecubital vein access ? site was performed. ? Complications/Events: ?The patient had no complications during these procedures. ?The attending physician was present for the entire procedure. ?Dr. Layton Morris M.D. performed the right heart catheterization and ?oximetry. ? Layton P Arturo MKarmaD. ? Electronically Signed by: Layton Morris M.D. ? Report Finalized: 01/22/2023 ??17:03 ? Procedure Note Layton Morris MD - 01/22/2023 [facility] [place] Cardiac Catheterization/Intervention Report Patient Name: Miguel Sanchez Procedure Date: 01/22/2023 A #: [id number] Primary Physician: Layton Morris Case #: [id number] File Name: [id number] Catheterization Order Number: [id number] [facility] FinalReport [place], [place] Patient Name: Miguel Sanchez ID#:[id number] :1955 Procedure Date: January 22, 2023 Case #: [id number] Room: 5 Case Physician: Layton Morris M.D. Start: 16:35 Fellow: Mario Alberto Glasgow M.D. Admission:01/18/2023 Referring Physician: Elham Dykes M.D. Procedures: * Right Heart Catheterization * Oximetry History Miguel Sanchez is a 67 year old man. The patient's smoking status isNever. The patient has a history of CHF. The CHF is NYHA Functional ClassIII, is newly diagnosed and is classified as Systolic. Prior to theinitiation of this procedure, the patient was designated as ASA Class III. [facility] clinical frailty scale is 5: Mildly Frail. Diagnostic Tests: Medications Prior to Procedure: Angiotensin Converting Enzyme Inhibitor, Aspirin, Beta Blockerand Statin. Indications for Diagnostic Cath: The priority of the diagnostic procedure was Urgent. The indicationfor the cathead worker visit is cardiomyopathy. Chest pain symptom assessmentwas: Asymptomatic. Technique: A 5 SLFr sheath was inserted in the right median antecubital vein utilizing the Seldinger technique. Right heart catheterization was performed utilizing a 5Fr BALLOON WEDGE catheter. Radiation: Fluorotime was 4.7 minutes, dose area product was 13 mGYcm2 and air kerma was66 mGY. See the case log for additional details. Hemodynamics: Right Heart Pressures Resting: Syst Diast EDP a v m RA 13 11 8 RV 38 8 PA 28 27 25 PCW 16 17 18 Hemodynamic Profile: Profile 1 CO 4.60 CI 2.20 TPR 435 PVR 122 Technique Estimated Junior Left Heart Pressures Resting: Syst Diast EDP a v m Ao 166 98 Oximetry: Location %Sat Location %Sat Superior Vena Cava 58.0 Main Pulmonary Artery 56.0 o2 sat 99.0 Indication for Selected Procedures: Right Heart catheterization was initiated for Acute on chronicsystolic (congestive) heart failure (I50.23). Vascular Access: Vascular Access Management: Mechanical Compression of the right median antecubital veinaccess site was performed. Complications/Events: The patient had no complications during these procedures. The attending physician was present for the entire procedure. Dr. Layton Morris M.D. performed the right heart catheterization and oximetry. Layton Morris M.D. Electronically Signed by: Layton Morris M.D. Report Finalized: 01/22/2023 17:03 Layton Morris MD CARDIAC CATH ORDERAB LES * POCT Glucose (01/22/2023 12:35 PM EDT) POC Glucose 165 65 - 199 mg/dL [facility] Comment: Supplemental ranges: <140 mg/dL before meals <180 mg/dL all other times of the day Blood 01/22/2023 12:3 5 PM EDT 01/22/2023 12:35 PM EDT Mendel Luna MD POINT OF CARE TEST O RDERABLES Performing Organization Address City/[facility] Co de Phone Number [facility] [place] [address] * POCT Glucose (01/22/2023 7:52 AM EDT) POC Glucose 145 65 - 199 mg/dL [facility] Comment: Supplemental ranges: <140 mg/dL before meals <180 mg/dL all other times of the day Blood 01/22/2023 7:52 AM EDT 01/22/2023 7:52 AM EDT Chris Lim MD POINT OF CARE TEST O RDERABLES Performing Organization Address City/[facility]/ZIP Co de Phone Number [facility] [place] [address] * Differential, Automated (01/22/2023 2:42 AM EDT) Neutrophils % 73.7 % [facility] Neutr Abs (ANC) 6.10 1.70 - 6.10 x10(3)/[facility] LAB[facility] Lymphocytes % 12.5 % [facility] Lymphocytes Abs 1.0 0.9 - 3.2 x10(3)/[facility] Monocytes % 8.8 % [facility] Monocyte Abs 0.7 0.3 - 0.9 x10(3)/[facility] Eosinophils % 4.1 % [facility] Eosinophils Abs 0.3 0.0 - 0.4 x10(3)/[facility] Basophils % 0.7 % [facility] Basophils Abs 0.1 0.0 - 0.1 x10(3)/[facility] [facility] Immature Gran % 0.20 % [facility] Comment: Immature granulocytes(IG's)percentage and absolute count will include metamyelocytes, myelocytes, and promyelocytes. Blood smears from CBCs yielding IG's will be scanned manually for concordance. If this scan disagrees with the automated IG or if promyelocytes are noted, a manual differential will be performed. Angelica Gran Abs 0.02 0.00 - 0.04 x10(3)/[facility] LABORATORY Blood 01/22/2023 2:42 AM EDT 01/22/2023 3:03 AM EDT Narrative Resulting Agency Comment Spec In Lab Kyle Mckeon MD HEMATOLOGY ORDERABLE S Performing Organization Address City/State/[facility] Co de Phone Number [facility] [place] [address] * (ABNORMAL) Hemogram (01/22/2023 2:42 AM EDT) WBC 8.3 4.0 - 9.5 x10(3)/[facility] LABORATORY RBC 3.41(L) 4.58 - 5.54 x10(6)/[facility] LABORATORY Hemoglobin 10.3(L) 13.7 - 16.5 g/dL [facility] Hematocrit 30.8(L) 40.5 - 48.5 % [facility] MCV 90.3 82.9 - 93.1 fL [facility] MCH 30.2 27.5 - 32.1 pg [facility] MCHC 33.4 32.0 - 35.7 g/dL [facility] Platelets 183 145 - 357 x10(3)/[facility] [place] [facility] RDWSD 42.0 36.0 - 45.0 fL [facility] RDWCV 12.9 11.4 - 13.8 % [facility] MPV 12.1 7.6 - 12.9 fL [facility] nRBC % Auto 0.0 % [facility] nRBC Abs Auto 0.000 0.000 - 0.000 x10(3)/mcL [facility] Blood 01/22/2023 2:42 AM EDT 01/22/2023 3:03 AM EDT Narrative Resulting Agency Comment Spec In Lab Kyle Mckeon MD HEMATOLOGY ORDERABLE S Performing Organization Address City/[facility]/ZIP Co de Phone Number [facility] [place] [address] * (ABNORMAL) Phosphorus (01/22/2023 2:42 AM EDT) Phosphorus 5.8(H) 2.5 - 4.5 mg/dL [facility] Blood 01/22/2023 2:42 AM EDT 01/22/2023 3:03 AM EDT Narrative Resulting Agency Comment Spec In Lab Tanya Seaman MD CHEMISTRY ORDERABL ES Performing Organization Address [facility] Co de Phone Number [facility] [place] [address] * Magnesium (01/22/2023 2:42 AM EDT) Magnesium 0.97 0.69 - 1.07 mmol/L [facility] Blood 01/22/2023 2:42 AM EDT 01/22/2023 3:03 AM EDT Narrative Resulting Agency Comment Spec In Lab Tanya Seaman MD CHEMISTRY ORDERABL ES Performing Organization Address [facility] Co de Phone Number [facility] [place] [address] * (ABNORMAL) Basic Metabolic Panel (non-fasting) (01/22/2023 2:42 AM EDT) Glucose Lvl 153 65 - 199 mg/dL [facility] Comment:Diabetes: >=200 mg/d L plus symptoms BUN 79(H) 10 - 20 mg/dL [facility] Creatinine 5.86(H) 0.80 - 1.50 mg/dL [facility] Sodium 138 135 - 145 mmol/L [facility] Potassium 4.2 3.5 - 5.0 mmol/L [facility] Comment: Please note: ??Patients with WBC >100,000 may have falsely elevated Potassium levels. ??For accurate Potassium quantification in these patients send serum separator tube (gold top) for subsequent determinations. ??Contact the Clinical Chemistry Laboratory if there are any questions. Chloride 104 98 - 107 mmol/L [facility] CO2 20(L) 22 - 31 mmol/L [facility] Anion Gap 14 5 - 15 mmol/L [facility] Calcium 9.2 8.5 - 10.5 mg/dL [facility] Estimated GFR 10(L) >=60 mL/min/1. 73 m?? [facility] Comment: This patient's estimated GFR [...] and symptoms in addition to eGFR. Blood 01/22/2023 2:42 AM EDT 01/22/2023 3:03 AM EDT Narrative Resulting Agency Comment Spec In Lab Tanya Seaman MD CHEMISTRY ORDERABL ES [facility] [place] [address] * C3 Complement (01/22/2023 2:42 AM EDT) C3 Complement 126 90 - 180 mg/dL [facility] Blood 01/22/2023 2:42 AM EDT 01/22/2023 3:03 AM EDT Narrative Resulting Agency Comment Spec In Lab Chris Lim MD CHEMISTRY ORDERABLES Performing Organization Address City/[facility]/ZIP Co de Phone Number [facility] [place] [address] * POCT Glucose (01/21/2023 6:41 PM EDT) POC Glucose 199 65 - 199 mg/dL [facility] Comment: Supplemental ranges: <140 mg/dL before meals <180 mg/dL all other times of the day Blood 01/21/2023 6:41 PM EDT 01/21/2023 6:41 PM EDT Chris Lim MD POINT OF CARE TEST O RDERABLES Performing Organization Address [facility] Co de Phone Number [facility] [place] [address] * POCT Glucose (01/21/2023 3:57 PM EDT) POC Glucose 125 65 - 199 mg/dL [facility] Comment: Supplemental ranges: <140 mg/dL before meals <180 mg/dL all other times of the day Blood 01/21/2023 3:57 PM EDT 01/21/2023 3:57 PM EDT Chris Lim MD POINT OF CARE TEST O RDERABLES Performing Organization Address City/[facility]/ZIP Co de Phone Number [facility] [place] [address] * (ABNORMAL) POCT Glucose (01/21/2023 11:32 AM EDT) POC Glucose 249(H) 65 - 199 mg/dL [facility] Comment: Supplemental ranges: <140 mg/dL before meals <180 mg/dL all other times of the day Blood 01/21/2023 11:3 2 AM EDT 01/21/2023 11:32 AM EDT Chris Lim MD POINT OF CARE TEST O TESSA Performing Organization Address [facility] Co de Phone Number [facility] [place] [address] * (ABNORMAL) POCT Glucose (01/21/2023 9:38 AM EDT) POC Glucose 233(H) 65 - 199 mg/dL [facility] Comment: Supplemental ranges: <140 mg/dL before meals <180 mg/dL all other times of the day Blood 01/21/2023 9:38 AM EDT 01/21/2023 9:38 AM EDT Chris Lim MD POINT OF CARE TEST O TESSA Performing Organization Address [facility] Co de Phone Number [facility] [place] [address] * EKG 12 Lead (01/21/2023 8:33 AM EDT) Ventricular rate 74 BPM MUSE SYSTEM Atrial Rate 74 BPM MUSE SYSTEM P-R Interval 180 ms MUSE SYSTEM QRS Duration 126 ms MUSE SYSTEM Q-T Interval 454 ms MUSE SYSTEM QTC Calculated (Bezet) 503 ms MUSE SYSTEM Calculated P [place] 32 degrees MUSE SYSTEM Calculated R [place] -35 degrees MUSE SYSTEM Calculated T [place] 97 degrees MUSE SYSTEM INTERPRETATION Normal sinus rhythm Left axis deviation Non-specific intra-ventricu lar conduction block Nonspecific T wave abnormality Abnormal ECG When compared with ECG of 18-JAN-2023 18:52, No significant change was found Confirmed by fellow Lacey Oliveros ([id number]) on 01/23/2023 10:03:20 AM Confirmed by MD Gonzalez David ([id number]) on 01/24/2023 8:22:03 AM MUSE SYSTEM 01/21/2023 8:33 AM EDT 01/24/2023 8:22 AM EDT Tanya Seaman MD ECG ORDERABLES MUSE SYSTEM * POCT Glucose (01/21/2023 8:05 AM EDT) POC Glucose 178 65 - 199 mg/dL [facility] Comment: Supplemental ranges: <140 mg/dL before meals <180 mg/dL all other times of the day Blood 01/21/2023 8:05 AM EDT 01/21/2023 8:05 AM EDT Chris Lim MD POINT OF CARE TEST O RDERABLES Performing Organization Address City/[facility]/ZIP Co de Phone Number [facility] [place] [address] * Differential, Automated (01/21/2023 2:42 AM EDT) Neutrophils % 70.7 % [facility] Neutr Abs (ANC) 5.75 1.70 - 6.10 x10(3)/[facility] LABORATORY Lymphocytes % 14.5 % [facility] Lymphocytes Abs 1.2 0.9 - 3.2 x10(3)/[facility] LABORATORY Monocytes % 9.1 % [facility] Monocyte Abs 0.7 0.3 - 0.9 x10(3)/[facility] LABORATORY Eosinophils % 4.6 % [facility] Eosinophils Abs 0.4 0.0 - 0.4 x10(3)/[facility] LABORATORY Basophils % 0.7 % [facility] Basophils Abs 0.1 0.0 - 0.1 x10(3)/[facility] LABORATORY Immature Gran % 0.40 % [facility] Comment: Immature granulocytes(IG's)percentage and absolute count will include metamyelocytes, myelocytes, and promyelocytes. Blood smears from CBCs yielding IG's will be scanned manually for concordance. If this scan disagrees with the automated IG or if promyelocytes are noted, a manual differential will be performed. Angelica Gran Abs 0.03 0.00 - 0.04 x10(3)/[facility] LABORATORY Blood 01/21/2023 2:42 AM EDT 01/21/2023 2:59 AM EDT Narrative Resulting Agency Comment Spec In Lab Kyle Mckeon MD HEMATOLOGY ORDERABLE S [facility] [place] [address] * (ABNORMAL) Hemogram (01/21/2023 2:42 AM EDT) WBC 8.1 4.0 - 9.5 x10(3)/[facility] LABORATORY RBC 3.59(L) 4.58 - 5.54 x10(6)/[facility] LABORATORY Hemoglobin 11.1(L) 13.7 - 16.5 g/dL [facility] Hematocrit 32.4(L) 40.5 - 48.5 % [facility] MCV 90.3 82.9 - 93.1 [facility] LABORATORY MCH 30.9 27.5 - 32.1 pg [facility] MCHC 34.3 32.0 - 35.7 g/dL [facility] Platelets 202 145 - 357 x10(3)/[facility] LABORATORY RDWSD 42.5 36.0 - 45.0 [facility] LABORATORY RDWCV 12.8 11.4 - 13.8 % [facility] MPV 12.3 7.6 - 12.9 [facility] LABORATORY nRBC % Auto 0.0 % [facility] nRBC Abs Auto 0.000 0.000 - 0.000 x10(3)/[facility] LABORATORY Blood 01/21/2023 2:42 AM EDT 01/21/2023 2:59 AM EDT Narrative Resulting Agency Comment Spec In Lab Kyle Mckeon MD HEMATOLOGY ORDERABLE S Performing Organization Address [facility] de Phone Number [facility] [place] [address] * (ABNORMAL) Phosphorus (01/21/2023 2:42 AM EDT) Phosphorus 5.3(H) 2.5 - 4.5 mg/dL [facility] Blood 01/21/2023 2:42 AM EDT 01/21/2023 2:58 AM EDT Narrative Resulting Agency Comment Spec In Lab Tanya Seaman MD CHEMISTRY ORDERABL ES Performing Organization Address [facility] Phone Number [facility] [place] [address] * Magnesium (01/21/2023 2:42 AM EDT) Magnesium 0.99 0.69 - 1.07 mmol/L [facility] Blood 01/21/2023 2:42 AM EDT 01/21/2023 2:58 AM EDT Narrative Resulting Agency Comment Spec In Lab Tanya Seaman MD CHEMISTRY ORDERABL ES Performing Organization Address [facility] de Phone Number [facility] [place] [address] * (ABNORMAL) Basic Metabolic Panel (non-fasting) (01/21/2023 2:42 AM EDT) Glucose Lvl 120 65 - 199 mg/dL [facility] Comment:Diabetes: >=200 mg/d L plus symptoms BUN 72(H) 10 - 20 mg/dL [facility] Creatinine 5.70(H) 0.80 - 1.50 mg/dL [facility] Sodium 140 135 - 145 mmol/L [facility] Potassium 4.2 3.5 - 5.0 mmol/L [facility] Comment: Please note: ??Patients with WBC >100,000 may have falsely elevated Potassium levels. ??For accurate Potassium quantification in these patients send serum separator tube (gold top) for subsequent determinations. ??Contact the Clinical Chemistry Laboratory if there are any questions. Chloride 100 98 - 107 mmol/L [facility] CO2 20(L) 22 - 31 mmol/L [facility] Anion Gap 20(H) 5 - 15 mmol/L [facility] Calcium 9.3 8.5 - 10.5 mg/dL [facility] Estimated GFR 10(L) >=60 mL/min/1. 73 m?? [facility] Comment: This patient's estimated GFR [...] and symptoms in addition to eGFR. Blood 01/21/2023 2:42 AM EDT 01/21/2023 2:58 AM EDT Narrative Resulting Agency Comment Spec In Lab Tanya Seaman MD CHEMISTRY ORDERABL ES [facility] [place] [address] * POCT Glucose (01/20/2023 7:45 PM EDT) POC Glucose 158 65 - 199 mg/dL [facility] Comment: Supplemental ranges: <140 mg/dL before meals <180 mg/dL all other times of the day Blood 01/20/2023 7:45 PM EDT 01/20/2023 7:45 PM EDT Chris Lim MD POINT OF CARE TEST O RDERABLES Performing Organization Address [facility]/ZIP Co de Phone Number [facility] [place] [address] * POCT Glucose (01/20/2023 4:38 PM EDT) POC Glucose 96 65 - 199 mg/dL [facility] Comment: Supplemental ranges: <140 mg/dL before meals <180 mg/dL all other times of the day Blood 01/20/2023 4:38 PM EDT 01/20/2023 4:38 PM EDT Chris Lim MD POINT OF CARE TEST O RDERABLES Performing Organization Address [facility] Co de Phone Number [facility] [place] [address] * POCT Glucose (01/20/2023 4:14 PM EDT) POC Glucose 101 65 - 199 mg/dL [facility] Comment: Supplemental ranges: <140 mg/dL before meals <180 mg/dL all other times of the day Blood 01/20/2023 4:14 PM EDT 01/20/2023 4:14 PM EDT Chris Lim MD POINT OF CARE TEST O BERNARDINOERAMARCY Performing Organization Address City/[facility]/ZIP Co de Phone Number [facility] [place] [address] * Hepatitis C Antibody (01/20/2023 3:23 PM EDT) Hepatitis C Ab Negative Negative [facility] Blood 01/20/2023 3:23 PM EDT 01/20/2023 3:28 PM EDT Narrative Resulting Agency Comment Spec In Lab Austin Sosa MD IMMUNOLOGY ORDERABLE S Performing Organization Address [facility] Co de Phone Number [facility] [place] [address] * Hepatitis B Core Antibody, Total (01/20/2023 3:23 PM EDT) Hep B Core Ab Negative Negative [facility] Blood 01/20/2023 3:23 PM EDT 01/20/2023 3:28 PM EDT Narrative Resulting Agency Comment Spec In Lab Chris Lim MD CHEMISTRY ORDERABLES Performing Organization Address [facility] Co de Phone Number [facility] [place] [address] * Hepatitis B Surface Antibody (01/20/2023 3:23 PM EDT) HepB Surface Ab Quant <3.5 IU/L [facility] Comment: HepB Surface Ab Quant: Unvaccinated: < 8.5 IU/L Vaccinated: >= 11.5 IU/L HepB Surface Ab Negative [facility] Comment: Patient is presumed to be not vaccinated or immune to HBV infection. Expected Results: Vaccinated: Positive Unvaccinated: Negative Blood 01/20/2023 3:23 PM EDT 01/20/2023 3:28 PM EDT Narrative Resulting Agency Comment Spec In Lab Chris Lim MD IMMUNOLOGY ORDERABLE S Performing Organization Address [facility] Co de Phone Number [facility] [place] [address] * HIV Screen, 4th Generation (MC/CGP/APD/NLH) (01/20/2023 3:23 PM EDT) HIV-1/2 Ab and Ag Negative Negative [facility] Comment: This 4th Generation HIV test screens for the presence of the HIV-1 p24 antigen as well as antibodies reactive against HIV-1 and HIV-2. A negative screen does not rule out an acute HIV infection. If acute HIV infection is suspected, testing should be repeated in 2 - 3 weeks or HIV nucleic acid testing performed. HIV Comment Low Risk of HIV Infection [facility] Blood 01/20/2023 3:23 PM EDT 01/20/2023 3:28 PM EDT Narrative Resulting Agency Comment Spec In Lab Chris Lim MD IMMUNOLOGY ORDERABLE S Performing Organization Address City/[facility]/ZIP Co de Phone Number [facility] [place] [address] * (ABNORMAL) POCT Glucose (01/20/2023 11:33 AM EDT) POC Glucose 206(H) 65 - 199 mg/dL [facility] Comment: Supplemental ranges: <140 mg/dL before meals <180 mg/dL all other times of the day Blood 01/20/2023 11:3 3 AM EDT 01/20/2023 11:33 AM EDT Chris Lim MD POINT OF CARE TEST O RDERAMARCY Performing Organization Address [facility] Co de Phone Number [facility] [place] [address] * POCT Glucose (01/20/2023 7:24 AM EDT) POC Glucose 152 65 - 199 mg/dL [facility] Comment: Supplemental ranges: <140 mg/dL before meals <180 mg/dL all other times of the day Blood 01/20/2023 7:24 AM EDT 01/20/2023 7:24 AM EDT Chris Lim MD POINT OF CARE TEST O RDERAMARCY Performing Organization Address City/[facility]/ZIP Co de Phone Number [facility] [place] [address] * Immunoglobulins, Quantitative (01/20/2023 3:26 AM EDT) IgG 880 700 - 1,600 mg/dL [facility] Comment: Pediatric Reference Intervals obtained from the Cal[employer] Reference Interval project. http://www.sickKeVitads.ca/caliperproject/index.html IgA 286 70 - 400 mg/dL [facility] IgM 72 40 - 230 mg/dL [facility] Blood Venous Draw / Unknown 01/20/2023 3:26 AM EDT 01/20/2023 3:44 AM EDT Narrative Resulting Agency Comment Spec In Lab Deonte Lugo MD CHEMISTRY ORDERABLE S Performing Organization Address [facility]/ZIP Co de Phone Number [facility] [place] [address] * Immunofixation Electrophoresis (01/20/2023 3:26 AM EDT) [facility] DOROTEO See Note [facility] Comment: No specific abnormality observed. Dr. Arnulfo Moore 01/23/2023 See scanned report. Blood Venous Draw / Unknown 01/20/2023 3:26 AM EDT 01/20/2023 3:44 AM EDT Narrative Resulting Agency Comment Spec In Lab Deonte Lugo MD CHEMISTRY ORDERABLE S Performing Organization Address City/[facility]/ZIP Co de Phone Number [facility] [place] [address] * Protein Electrophoresis, serum (01/20/2023 3:26 AM EDT) [facility] Total Prot Elec 6.5 6.1 - 8.0 g/dL [facility] Albumin Elect 4.11 3.20 - 5.20 g/dL [facility] Alpha1-Globulin 0.25 0.10 - 0.30 g/dL [facility] Alpha2-Globulin 0.75 0.40 - 0.90 g/dL [facility] Beta Globulin 0.68 0.50 - 1.00 g/dL [facility] Gamma Globulin 0.71 0.50 - 1.30 g/dL [facility] M1 Band Comments Below None Detected [facility] SPEP Comments See Note [facility] Comment: Serum protein electrophoresis (PEP) shows a band that is a possible paraprotein. Immunofixation (DOROTEO) and quantitative immunoglobulin (MEGHAN) testing will be performed on this sample to verify that it is a monoclonal immunoglobulin. Blood Venous Draw / Unknown 01/20/2023 3:26 AM EDT 01/20/2023 3:44 AM EDT Narrative Resulting Agency Comment Spec In Lab Deonte Lugo MD CHEMISTRY ORDERABLE S Performing Organization Address City/[facility]/ZIP Co de Phone Number [facility] [place] [address] * C4 Complement (01/20/2023 3:26 AM EDT) C4 Complement 31 10 - 40 mg/dL [facility] Blood Venous Draw / Unknown 01/20/2023 3:26 AM EDT 01/20/2023 3:44 AM EDT Narrative Resulting Agency Comment Spec In Lab Deonte Lugo MD CHEMISTRY ORDERABLE S Performing Organization Address City/[facility]/ZIP Co de Phone Number [facility] [place] [address] * (ABNORMAL) Free Light Chains, Serum (01/20/2023 3:26 AM EDT) [place] Free Light Chain 8.16(H) 0.72 - 2.75 mg/dL [facility] Lambda Free Light Chain 4.53(H) 0.57 - 2.15 mg/dL [facility] [place] Lambda FLC Ratio 1.8013 0.4000 - 2.5800 [facility] Blood Venous Draw / Unknown 01/20/2023 3:26 AM EDT 01/20/2023 3:44 AM EDT Narrative Resulting Agency Comment Spec In Lab Deonte Lugo MD CHEMISTRY ORDERABLE S [facility] [place] [address] * Differential, Automated (01/20/2023 3:26 AM EDT) Neutrophils % 75.0 % [facility] Neutr Abs (ANC) 6.04 1.70 - 6.10 x10(3)/[facility] LABORATORY Lymphocytes % 12.2 % [facility] Lymphocytes Abs 1.0 0.9 - 3.2 x10(3)/[facility] LABORATORY Monocytes % 8.6 % [facility] Monocyte Abs 0.7 0.3 - 0.9 x10(3)/[facility] LABORATORY Eosinophils % 3.3 % [facility] Eosinophils Abs 0.3 0.0 - 0.4 x10(3)/[facility] LABORATORY Basophils % 0.7 % [facility] Basophils Abs 0.1 0.0 - 0.1 x10(3)/[facility] LABORATORY Immature Gran % 0.20 % [facility] Comment: Immature granulocytes(IG's)percentage and absolute count will include metamyelocytes, myelocytes, and promyelocytes. Blood smears from CBCs yielding IG's will be scanned manually for concordance. If this scan disagrees with the automated IG or if promyelocytes are noted, a manual differential will be performed. Angelica Gran Abs 0.02 0.00 - 0.04 x10(3)/[facility] LABORATORY Blood 01/20/2023 3:26 AM EDT 01/20/2023 3:42 AM EDT Narrative Resulting Agency Comment Spec In Lab Kyle Mckeon MD HEMATOLOGY ORDERABLE [place] [address] * (ABNORMAL) Hemogram (01/20/2023 3:26 AM EDT) WBC 8.1 4.0 - 9.5 x10(3)/[facility] LABORATORY RBC 3.54(L) 4.58 - 5.54 x10(6)/[facility] LABORATORY Hemoglobin 10.8(L) 13.7 - 16.5 g/dL [facility] Hematocrit 32.5(L) 40.5 - 48.5 % [facility] MCV 91.8 82.9 - 93.1 fL [facility] MCH 30.5 27.5 - 32.1 pg [facility] MCHC 33.2 32.0 - 35.7 g/dL [facility] Platelets 202 145 - 357 x10(3)/[facility] LABORATORY RDWSD 42.9 36.0 - 45.0 [facility] LABORATORY RDWCV 12.7 11.4 - 13.8 % [facility] MPV 11.6 7.6 - 12.9 [facility] LABORATORY nRBC % Auto 0.0 % [facility] nRBC Abs Auto 0.000 0.000 - 0.000 x10(3)/[facility] LABORATORY Blood 01/20/2023 3:26 AM EDT 01/20/2023 3:42 AM EDT Narrative Resulting Agency Comment Spec In Lab Kyle Mckeon MD HEMATOLOGY [place] [address] * (ABNORMAL) Phosphorus (01/20/2023 3:26 AM EDT) Phosphorus 4.7(H) 2.5 - 4.5 mg/dL [facility] Blood 01/20/2023 3:26 AM EDT 01/20/2023 3:42 AM EDT Narrative Resulting Agency Comment Spec In Lab Tanya Seaman MD CHEMISTRY ORDERABL ES Performing Organization Address [facility] Co de Phone Number [facility] [place] [address] * Magnesium (01/20/2023 3:26 AM EDT) Magnesium 0.95 0.69 - 1.07 mmol/L [facility] Blood 01/20/2023 3:26 AM EDT 01/20/2023 3:42 AM EDT Narrative Resulting Agency Comment Spec In Lab Tanya Seaman MD CHEMISTRY ORDERABL ES Performing Organization Address [facility] Co de Phone Number [facility] [place] [address] * (ABNORMAL) Basic Metabolic Panel (non-fasting) (01/20/2023 3:26 AM EDT) Glucose Lvl 109 65 - 199 mg/dL [facility] Comment:Diabetes: >=200 mg/d L plus symptoms BUN 67(H) 10 - 20 mg/dL [facility] Creatinine 5.79(H) 0.80 - 1.50 mg/dL [facility] Sodium 139 135 - 145 mmol/L [facility] Potassium 4.5 3.5 - 5.0 mmol/L [facility] Comment: Please note: ??Patients with WBC >100,000 may have falsely elevated Potassium levels. ??For accurate Potassium quantification in these patients send serum separator tube (gold top) for subsequent determinations. ??Contact the Clinical Chemistry Laboratory if there are any questions. Chloride 102 98 - 107 mmol/L [facility] CO2 20(L) 22 - 31 mmol/L [facility] Anion Gap 17(H) 5 - 15 mmol/L [facility] Calcium 8.8 8.5 - 10.5 mg/dL [facility] Estimated GFR 10(L) >=60 mL/min/1. 73 m?? [facility] Comment: This patient's estimated GFR [...] and symptoms in addition to eGFR. Blood 01/20/2023 3:26 AM EDT 01/20/2023 3:42 AM EDT Narrative Resulting Agency Comment Spec In Lab Tanya Seaman MD CHEMISTRY ORDERABL ES Performing Organization Address [facility]/ZIP Co de Phone Number [facility] [place] [address] * (ABNORMAL) Ferritin (01/20/2023 3:26 AM EDT) Ferritin 478(H) 30 - 400 ng/mL [facility] Comment: Pediatric reference ranges not verified at [facility], interpret with caution. Reference ranges for females greater than 50 years of age approach values for men, i.e., 30-400 ng/mL. Blood 01/20/2023 3:26 AM EDT 01/20/2023 3:42 AM EDT Narrative Resulting Agency Comment Spec In Lab Sixto Morrow MD CHEMISTRY ORDERABLES Performing Organization Address City/[facility]/ZIP Co de Phone Number [facility] [place] [address] * (ABNORMAL) Iron and TIBC (01/20/2023 3:26 AM EDT) Iron 68 45 - 160 mcg/dL [facility] TIBC 229(L) 250 - 450 mcg/dL [facility] Iron Saturation 30 20 - 50 % [facility] Blood 01/20/2023 3:26 AM EDT 01/20/2023 3:42 AM EDT Narrative Resulting Agency Comment Spec In Lab Sixto Morrow MD CHEMISTRY ORDERABLES Performing Organization Address [facility] Co de Phone Number [facility] [place] [address] * (ABNORMAL) PTH (01/20/2023 3:26 AM EDT) PTH 401(H) 15 - 65 pg/mL [facility] Blood 01/20/2023 3:26 AM EDT 01/20/2023 3:42 AM EDT Narrative Resulting Agency Comment Spec In Lab Sixto Morrow MD CHEMISTRY ORDERABLES Performing Organization Address [facility] Co de Phone Number [facility] [place] [address] * (ABNORMAL) Vitamin D, 25-Hydroxy (01/20/2023 3:26 AM EDT) 25-OH Vit D Total 9(L) 21 - 100 ng/mL [facility] 25-OH Vit D Interp Deficient [facility] Blood 01/20/2023 3:26 AM EDT 01/20/2023 3:42 AM EDT Narrative Resulting Agency Comment Spec In Lab Sixto Morrow MD CHEMISTRY ORDERABLES Performing Organization Address [facility] Co de Phone Number [facility] [place] [address] * POCT Glucose (01/19/2023 9:33 PM EDT) POC Glucose 112 65 - 199 mg/dL [facility] Comment: Supplemental ranges: <140 mg/dL before meals <180 mg/dL all other times of the day Blood 01/19/2023 9:33 PM EDT 01/19/2023 9:33 PM EDT Chris Lim MD POINT OF CARE TEST O TESSA Performing Organization Address City/[facility] Co de Phone Number [facility] [place] [address] * POCT Glucose (01/19/2023 4:37 PM EDT) POC Glucose 175 65 - 199 mg/dL [facility] Comment: Supplemental ranges: <140 mg/dL before meals <180 mg/dL all other times of the day Blood 01/19/2023 4:37 PM EDT 01/19/2023 4:37 PM EDT Chris Lim MD POINT OF CARE TEST O TESSA Performing Organization Address [facility]/ZIP Co de Phone Number [facility] [place] [address] * (ABNORMAL) Basic Metabolic Panel (non-fasting) (01/19/2023 2:15 PM EDT) Glucose Lvl 206(H) 65 - 199 mg/dL [facility] Comment:Diabetes: >=200 mg/d L plus symptoms BUN 59(H) 10 - 20 mg/dL [facility] Creatinine 5.69(H) 0.80 - 1.50 mg/dL [facility] Sodium 140 135 - 145 mmol/L [facility] Potassium 4.4 3.5 - 5.0 mmol/L [facility] Comment: Please note: ??Patients with WBC >100,000 may have falsely elevated Potassium levels. ??For accurate Potassium quantification in these patients send serum separator tube (gold top) for subsequent determinations. ??Contact the Clinical Chemistry Laboratory if there are any questions. Chloride 102 98 - 107 mmol/L [facility] CO2 22 22 - 31 mmol/L [facility] Anion Gap 16(H) 5 - 15 mmol/L [facility] Calcium 9.3 8.5 - 10.5 mg/dL [facility] Estimated GFR 10(L) >=60 mL/min/1. 73 m?? [facility] Comment: This patient's estimated GFR [...] and symptoms in addition to eGFR. Blood 01/19/2023 2:15 PM EDT 01/19/2023 2:21 PM EDT Narrative Resulting Agency Comment Spec In Lab Tanya Seaman MD CHEMISTRY ORDERABL ES Performing Organization Address City/[facility]/ZIP Co de Phone Number [facility] [place] [address] * POCT Glucose (01/19/2023 11:31 AM EDT) [facility] Signature POC Glucose 96 65 - 199 mg/dL [facility] Comment: Supplemental ranges: <140 mg/dL before meals <180 mg/dL all other times of the day Blood 01/19/2023 11:3 1 AM EDT 01/19/2023 11:31 AM EDT Chris Lim MD POINT OF CARE TEST O RDERABLES [facility] [place] [address] * (ABNORMAL) Basic Metabolic Panel (non-fasting) (01/19/2023 10:29 AM EDT) Glucose Lvl 87 65 - 199 mg/dL [facility] Comment:Diabetes: >=200 mg/d L plus symptoms BUN 60(H) 10 - 20 mg/dL [facility] Creatinine 5.63(H) 0.80 - 1.50 mg/dL [facility] Sodium 143 135 - 145 mmol/L [facility] Potassium 4.4 3.5 - 5.0 mmol/L [facility] Comment: Please note: ??Patients with WBC >100,000 may have falsely elevated Potassium levels. ??For accurate Potassium quantification in these patients send serum separator tube (gold top) for subsequent determinations. ??Contact the Clinical Chemistry Laboratory if there are any questions. Chloride 107 98 - 107 mmol/L [facility] CO2 21(L) 22 - 31 mmol/L [facility] Anion Gap 15 5 - 15 mmol/L [facility] Calcium 9.1 8.5 - 10.5 mg/dL [facility] Estimated GFR 10(L) >=60 mL/min/1. 73 m?? [facility] Comment: This patient's estimated GFR [...] and symptoms in addition to eGFR. Blood 01/19/2023 10:2 9 AM EDT 01/19/2023 10:51 AM EDT Narrative Resulting Agency Comment Spec In Lab Tanya Seaman MD CHEMISTRY ORDERABL ES [facility] [place] [address] * ECHO COMPLETE W CONTRAST (01/19/2023 8:59 AM EDT) Anatomical Region Laterality Modality Cardiac Other 01/19/2023 6:52 AM EDT Narrative 01/19/2023 11:43 AM EDT ? Echocardiogram Report Name: MIGUEL SANCHEZ ? Study Date: 01/19/2023 06:52 AMBP: 142/82 mmHg ? Patient Location: [id number] A : 1955 ? Height: 165 cm ? Account: [id number] Age: 67 yrs ? Weight: 110 kg Gender: Male ?BSA: 2.1 m2 Ordering Physician: TANYA SEAMAN Referring Physician: ELHAM DYKES Performed By: Cathleen Ware RDCS Reason For Study: Heart failure Interpreting Fellow: Martin Reyes. Exam Location: [facility]. Interpretation Summary Left ventricle is mildly dilated with mildly [...] left ventricular systolic function has further decreased. Procedure Complete-08811. Satisfactory quality. Left Ventricle Left ventricle is mildly dilated. Wall thickness is mildly increased. There is no ventricular septal defect. Left ventricular systolic function is severely reduced. The left ventricular ejection fraction is 29% by Callahan's biplane. There is global hypokinesis with regional variation. There is no left ventricular thrombus. Right Ventricle The right ventricle is of normal size. Right ventricular systolic function is normal. Left Atrium The left atrium is mildly dilated. There is no evidence for a patent foramen ovale. Right Atrium The right atrium is normal. Aortic Valve The aortic valve is tricuspid. The aortic valve is mildly thickened. The aortic valve is mildly calcified. There is no aortic stenosis. There is trace aortic regurgitation. Mitral Valve The mitral valve leaflets are thickened. There is mitral annular calcification. There is mild to moderate mitral regurgitation. Tricuspid Valve The tricuspid valve is structurally normal. There is trace tricuspid regurgitation. Pulmonic Valve The pulmonic valve is not well visualized. Great Arteries The aortic root is of normal size. No abnormalities are identified. Ascending aorta is normal in size. Venous Inferior vena cava is normal in size. Inferior vena cava collapse greater than 50% with respiration. Pericardium/Pleural There is a small pericardial effusion. The pericardial effusion is adjacent to the right atrium. A pericardial fat pad is present. Hemodynamics Pulmonary artery hypertension could not be assessed due to inadequate tricuspid regurgitation jet. Left ventricular filling pressure is increased. Ejection Fraction ?2D Measurements ? Volumes EF(MOD-bp): 29.0 % ?IVSd: 1.3 cm ? LAV(MOD- bp) Indexed: ?LVIDd: 5.7 cm ?LVIDs: 4.8 cm ?39.3 ml/m2 ?LVPWd: 1.3 cm ?RA A4Cs_phl: 15.4 cm2 ?LV mass(C)d: 318.6 grams ? EDV (MOD-bp) Index: 86.7 ? ESV (MOD-bp) Index: 61.6 ?LV mass(C)dI: 148.5 grams/m2 ?? SV(LVOT): 50.3 ml ?Ao root diam: 3.4 cm ?Ao root diam index: 1.6 ?SI(LVOT): 23.5 ml/m2 ?asc Aorta Diam: 3.3 cm ?LVOT diam: 2.1 cm Doppler LV V1 VTI: 14.7 cm MV E max yany: 108.5 cm/sec MV A max yany: 104.8 cm/sec MV E/A: 1.0 MV dec time: 0.22 sec Lat Peak E' Yany: 3.3 cm/sec E/ e' (lat): 32.9 I ?WMSI = 2.00 ? % Normal = 0 ?Segments ??Size X - Cannot ?? 1 - Normal ?? 2 - ? 3 - Akinetic 4 - ?1-2 ? small Interpret ? Hypokinetic ?Dyskinetic ?? 3-5 ? moderate 5 - ? 6-14 ?large Aneurysmal ?15-16 ?? diffuse Procedure Note Arnie Horowitz MD - 01/19/2023 Echocardiogram Report Name: MIGUEL SANCHEZ Study Date: 306:52 AMBP: 142/82 mmHg Patient Location: [address] : 1955 Height: 165 cm Account: [id number] Age: 67 yrs Weight: 110 kg Gender: Male BSA: 2.1 m2 Ordering Physician: TANYA SEAMAN Referring Physician: ELHAM DYKES Performed By: Cathleen Ware RDCS Reason For Study: Heart failure Interpreting Fellow: Martin Reyes. Exam Location: [facility]. Interpretation Summary Left ventricle is mildly dilated with mildly increased wall thickness.LVEF is 29% by Callahan's biplane. There is no left ventricular thrombus. LV fillingpressure is increased. Right ventricle is of normal size and systolic function. There is mild to moderate mitral regurgitation. There is a small pericardial effusion, adjacent to the right atrium. Compared to prior echo report (08/25/2019), left ventricular systolicfunction has further decreased. Procedure Complete-80552. Satisfactory quality. Left Ventricle Left ventricle is mildly dilated. Wall thickness is mildly increased.There is no ventricular septal defect. Left ventricular systolic function is severelyreduced. The left ventricular ejection fraction is 29% by Callahan's biplane. Thereis global hypokinesis with regional variation. There is no left ventricularthrombus. Right Ventricle The right ventricle is of normal size. Right ventricular systolic functionis normal. Left Atrium The left atrium is mildly dilated. There is no evidence for a patentforamen ovale. Right Atrium The right atrium is normal. Aortic Valve The aortic valve is tricuspid. The aortic valve is mildly thickened. Theaortic valve is mildly calcified. There is no aortic stenosis. There is traceaortic regurgitation. Mitral Valve The mitral valve leaflets are thickened. There is mitral annularcalcification. There is mild to moderate mitral regurgitation. Tricuspid Valve The tricuspid valve is structurally normal. There is trace tricuspid regurgitation. Pulmonic Valve The pulmonic valve is not well visualized. Great Arteries The aortic root is of normal size. No abnormalities are identified.Ascending aorta is normal in size. Venous Inferior vena cava is normal in size. Inferior vena cava collapse greaterthan 50% with respiration. Pericardium/Pleural There is a small pericardial effusion. The pericardial effusion isadjacent to the right atrium. A pericardial fat pad is present. Hemodynamics Pulmonary artery hypertension could not be assessed due to inadequatetricuspid regurgitation jet. Left ventricular filling pressure is increased. Ejection Fraction 2D Measurements Volumes EF(MOD-bp): 29.0 % IVSd: 1.3 cm LAV(MOD-bp)Indexed: LVIDd: 5.7 cm LVIDs: 4.8 cm 39.3 ml/m2 LVPWd: 1.3 cm RA A4Cs_phl: 15.4cm2 LV mass(C)d: 318.6 grams EDV (MOD-bp)Index: 86.7 ESV (MOD-bp)Index: 61.6 LV mass(C)dI: 148.5 grams/m2 SV(LVOT): 50.3ml Ao root diam: 3.4 cm Ao root diam index: 1.6 SI(LVOT): 23.5ml/m2 asc Aorta Diam: 3.3 cm LVOT diam: 2.1 cm Doppler LV V1 VTI: 14.7 cm MV E max yany: 108.5 cm/sec MV A max yany: 104.8 cm/sec MV E/A: 1.0 MV dec time: 0.22 sec Lat Peak E' Yany: 3.3 cm/sec E/ e' (lat): 32.9 I WMSI = 2.00 % Normal = 0 SegmentsSize X - Cannot 1 - Normal 2 - 3 - Akinetic 4 - 1-2small Interpret Hypokinetic Dyskinetic 3-5moderate 5 - 6-14large Aneurysmal 15-16diffuse Tanya Seaman MD ECHO ORDERABLES * US Retroperitoneal Complete (01/19/2023 8:30 AM EDT) Anatomical Region Laterality Modality Abdomen Ultrasound 01/19/2023 8:27 AM EDT Impressions 01/19/2023 8:47 AM EDT 1. Both kidneys are normal in size and parenchymal thickness but have mild collecting system dilatation. 2. A Benedict catheter is present in an otherwise empty and difficult to evaluate urinary bladder.. Electronically signed by: Jimmie العراقي MD, [facility] ([phone]), at 01/19/2023 8:39 AM Thank you for letting us participate in the care of this patient. If you are a health care provider and have any questions regarding this report, please contact the number above. For patients who have questions, please contact the health rn primary care that requested your imaging first. ?Jimmie العراقي, Staff Physician Electronically Signed Final Report ?? 01/19/2023 08:47 am Narrative 01/19/2023 8:47 AM EDT Renal ? (Signed Final 01/19/2023 08:47 am) PATIENT INFO: ID #: ? [id number] ?: ??[birth year] (67 yrs)(M) Name: ? MIGUEL KIA ? Visit Date: 01/19/2023 08:27 am PERFORMED BY: Attending: ?Malcom OTT, Jimmie Perez Performed By: ? Kary Iqbal RDMS Referred By: ?TANYA SEAMAN Location: ? [place] SERVICE(S) PROVIDED: URETRO - Retroperitoneal Complete - [id number] ? [id number] INDICATIONS: New CLEM of unclear etiology RIGHT KIDNEY: Size (cm) ?L: ??11.9 Cortical Thickness: ?Normal Cortical Echogenicity: ?? Normal Hydronephrosis: ?Mild pelvicaliectasis LEFT KIDNEY: Size (cm) ?L: ??13.3 Cortical Thickness: ?Normal Cortical Echogenicity: ?? Normal Hydronephrosis: ?Mild pelvicaliectasis URINARY BLADDER: Comment: ?Not distended. ??Benedict catheter present, ? debris/thickened wall Procedure Note Jimmie العراقي MD - 01/19/2023 Renal (Signed Final 01/19/2023 08:47 am) PATIENT INFO: ID #: [id number] : [birth year] (67 yrs)(M) Name: MIGUEL SANCHEZ Visit Date: 01/19/2023 08:27 am PERFORMED BY: Attending: Jimmie العراقي MD Performed By: Kary Iqbal RDMS Referred By: TANYA SEAMAN Location: [place] SERVICE(S) PROVIDED: URETRO - Retroperitoneal Complete - [id number] INDICATIONS: New CLEM of unclear etiology RIGHT KIDNEY: Size (cm) L: 11.9 Cortical Thickness: Normal Cortical Echogenicity: Normal Hydronephrosis: Mild pelvicaliectasis LEFT KIDNEY: Size (cm) L: 13.3 Cortical Thickness: Normal Cortical Echogenicity: Normal Hydronephrosis: Mild pelvicaliectasis URINARY BLADDER: Comment: Not distended. Benedict catheter present, debris/thickened wall IMPRESSION 1. Both kidneys are normal in size and parenchymal thickness but have mild collecting system dilatation. 2. A Benedict catheter is present in an otherwise empty and difficult to evaluate urinary bladder.. Electronically signed by: Jimmie العراقي MD, [facility] ([phone]), at 01/19/2023 8:39 AM Thank you for letting us participate in the care of this patient. If you are a health care provider and have any questions regarding this report, please contact the number above. For patients who have questions, please contact the health rn primary care that requested your imaging first. Jimmie العراقي, Staff Physician Electronically Signed Final Report 01/19/2023 08:47 am Tanya Seaman MD [facility] * POCT Glucose (01/19/2023 8:00 AM EDT) Pathologist [facility] POC Glucose 92 65 - 199 mg/dL [facility] Comment: Supplemental ranges: <140 mg/dL before meals <180 mg/dL all other times of the day Blood 01/19/2023 8:00 AM EDT 01/19/2023 8:00 AM EDT Tanya Seaman MD POINT OF CARE TEST ORDERABLES [facility] [place] [address] * POCT Glucose (01/19/2023 7:42 AM EDT) POC Glucose 87 65 - 199 mg/dL [facility] Comment: Supplemental ranges: <140 mg/dL before meals <180 mg/dL all other times of the day Blood 01/19/2023 7:42 AM EDT 01/19/2023 7:42 AM EDT Tanya Seaman MD POINT OF CARE TEST ORDERABLES [facility] [place] [address] * (ABNORMAL) Basic Metabolic Panel (non-fasting) (01/19/2023 6:21 AM EDT) [facility] Glucose Lvl 80 65 - 199 mg/dL [facility] Comment:Diabetes: >=200 mg/d L plus symptoms BUN 58(H) 10 - 20 mg/dL [facility] Creatinine 5.52(H) 0.80 - 1.50 mg/dL [facility] Sodium 143 135 - 145 mmol/L [facility] Potassium 4.3 3.5 - 5.0 mmol/L [facility] Comment: Please note: ??Patients with WBC >100,000 may have falsely elevated Potassium levels. ??For accurate Potassium quantification in these patients send serum separator tube (gold top) for subsequent determinations. ??Contact the Clinical Chemistry Laboratory if there are any questions. Chloride 107 98 - 107 mmol/L [facility] CO2 21(L) 22 - 31 mmol/L [facility] Anion Gap 15 5 - 15 mmol/L [facility] Calcium 8.9 8.5 - 10.5 mg/dL [facility] Estimated GFR 11(L) >=60 mL/min/1. 73 m?? [facility] Comment: This patient's estimated GFR [...] and symptoms in addition to eGFR. Blood 01/19/2023 6:21 AM EDT 01/19/2023 6:26 AM EDT Narrative Resulting Agency Comment Spec In Lab Tanya Seaman MD CHEMISTRY ORDERABL ES Performing Organization Address City/[facility]/ZIP Co de Phone Number [facility] [place] [place] [address] * CK (01/19/2023 1:50 AM EDT) CK, Total 70 0 - 200 unit/L [facility] Blood Venous Draw / Unknown 01/19/2023 1:50 AM EDT 01/19/2023 1:55 AM EDT Narrative Resulting Agency Comment Spec In Lab Kyle Mckeon MD CHEMISTRY ORDERABLES Performing Organization Address City/[facility]/ZIP Co de Phone Number [facility] [place] [address] * Differential, Automated (01/19/2023 1:50 AM EDT) Neutrophils % 73.8 % [facility] Neutr Abs (ANC) 5.75 1.70 - 6.10 x10(3)/[facility] LABORATORY Lymphocytes % 13.8 % [facility] Lymphocytes Abs 1.1 0.9 - 3.2 x10(3)/[facility] LABORATORY Monocytes % 8.5 % [facility] Monocyte Abs 0.7 0.3 - 0.9 x10(3)/[facility] LABORATORY Eosinophils % 3.0 % [facility] Eosinophils Abs 0.2 0.0 - 0.4 x10(3)/[facility]ORY Basophils % 0.6 % [facility] Basophils Abs 0.0 0.0 - 0.1 x10(3)/[facility] LABORATORY Immature Gran % 0.30 % [facility] Comment: Immature granulocytes(IG's)percentage and absolute count will include metamyelocytes, myelocytes, and promyelocytes. Blood smears from CBCs yielding IG's will be scanned manually for concordance. If this scan disagrees with the automated IG or if promyelocytes are noted, a manual differential will be performed. Angelica Gran Abs 0.02 0.00 - 0.04 x10(3)/[facility] LABORATORY Blood 01/19/2023 1:50 AM EDT 01/19/2023 1:54 AM EDT Narrative Resulting Agency Comment Spec In Lab Kyle Mckeon MD HEMATOLOGY ORDERABLE S Performing Organization Address City/State/[facility] Co de Phone Number [facility] [place] [address] * (ABNORMAL) Hemogram (01/19/2023 1:50 AM EDT) WBC 7.8 4.0 - 9.5 x10(3)/[facility] LABORATORY RBC 3.25(L) 4.58 - 5.54 x10(6)/[facility]ORY Hemoglobin 10.1(L) 13.7 - 16.5 g/dL [facility] Hematocrit 30.3(L) 40.5 - 48.5 % [facility] MCV 93.2(H) 82.9 - 93.1 fL [facility] MCH 31.1 27.5 - 32.1 pg [facility] MCHC 33.3 32.0 - 35.7 g/dL [facility] Platelets 173 145 - 357 x10(3)/[facility] LABORATORY RDWSD 44.6 36.0 - 45.0 fL [facility] RDWCV 13.0 11.4 - 13.8 % [facility] MPV 11.5 7.6 - 12.9 fL [facility] nRBC % Auto 0.0 % [facility] nRBC Abs Auto 0.000 0.000 - 0.000 x10(3)/mcL [facility] Blood 01/19/2023 1:50 AM EDT 01/19/2023 1:54 AM EDT Narrative Resulting Agency Comment Spec In Lab Kyle Mckeon MD HEMATOLOGY ORDERABLE S Performing Organization Address City/[facility]/ZIP Co de Phone Number [facility] [place] [address] * Phosphorus (01/19/2023 1:50 AM EDT) Phosphorus 4.3 2.5 - 4.5 mg/dL [facility] Blood 01/19/2023 1:50 AM EDT 01/19/2023 1:54 AM EDT Narrative Resulting Agency Comment Spec In Lab Tanya Seaman MD CHEMISTRY ORDERABL ES Performing Organization Address [facility] Co de Phone Number [facility] [place] [address] * Magnesium (01/19/2023 1:50 AM EDT) Magnesium 0.80 0.69 - 1.07 mmol/L [facility] Blood 01/19/2023 1:50 AM EDT 01/19/2023 1:54 AM EDT Narrative Resulting Agency Comment Spec In Lab Tanya Seaman MD CHEMISTRY ORDERABL ES Performing Organization Address [facility]/ZIP Co de Phone Number [facility] [place] [address] * (ABNORMAL) Basic Metabolic Panel (non-fasting) (01/19/2023 1:50 AM EDT) Glucose Lvl 78 65 - 199 mg/dL [facility] Comment:Diabetes: >=200 mg/d L plus symptoms BUN 54(H) 10 - 20 mg/dL [facility] Creatinine 5.50(H) 0.80 - 1.50 mg/dL [facility] Sodium 143 135 - 145 mmol/L [facility] Potassium 4.3 3.5 - 5.0 mmol/L [facility] Comment: Please note: ??Patients with WBC >100,000 may have falsely elevated Potassium levels. ??For accurate Potassium quantification in these patients send serum separator tube (gold top) for subsequent determinations. ??Contact the Clinical Chemistry Laboratory if there are any questions. Chloride 107 98 - 107 mmol/L [facility] CO2 22 22 - 31 mmol/L [facility] Anion Gap 14 5 - 15 mmol/L [facility] Calcium 8.9 8.5 - 10.5 mg/dL [facility] Estimated GFR 11(L) >=60 mL/min/1. 73 m?? [facility] Comment: This patient's estimated GFR [...] and symptoms in addition to eGFR. Blood 01/19/2023 1:50 AM EDT 01/19/2023 1:54 AM EDT Narrative Resulting Agency Comment Spec In Lab Tanya Seaman MD CHEMISTRY ORDERABL ES [facility] [place] [address] * POCT Glucose (01/19/2023 1:46 AM EDT) POC Glucose 75 65 - 199 mg/dL [facility] Comment: Supplemental ranges: <140 mg/dL before meals <180 mg/dL all other times of the day Blood 01/19/2023 1:46 AM EDT 01/19/2023 1:46 AM EDT Tanya Seaman MD POINT OF CARE TEST ORDERABLES [facility] [place] [address] * (ABNORMAL) Blood Gas Venous ([facility]) (01/18/2023 10:20 PM EDT) Pathologist [facility] [place] pH William 7.37 7.32 - 7.42 [facility] pCO2 William 38(L) 41 - 51 mmHg [facility] pO2 William 30 25 - 40 mmHg [facility] HCO3 William 21.7 mmol/L [facility] BE William -3.7 mmol/L [facility] Hgb Blood Gas Not Perf 13.7 - 16.5 g/dL [facility] O2HB William Not Perf % [facility] COHB William Not Perf % [facility] Comment: Nonsmokers: 0.5-1.5% COHB Smokers: Variable, but usually less than 10% Toxic: 20-30% COHB Lethal: Greater than 60% COHB METHB William Not Perf <=1.5 % [facility] Na Whole Blood 140 135 - 145 mmol/L [facility] K Whole Blood 4.5 3.5 - 5.0 mmol/L [facility] Comment: Please note: Patients with WBC >100,000 may have falsely elevated Potassium levels. Contact the Clinical Chemistry Laboratory if there are any questions. ICa Whole Blood 1.14(L) 1.15 - 1.33 mmol/L [facility] Comment: Note: ??Total bilirubin higher than 20 mg/dL may lead to falsely low ionized calcium. CL Whole Blood 109(H) 98 - 107 mmol/L [facility] Gluc Whole Bld 73 65 - 199 mg/dL [facility] Comment:Diabetes: >=200 mg/d L plus symptoms Lactate WB 1.3 0.5 - 2.2 mmol/L [facility] BGas Source Venous [facility] Blood Venous Draw / Unknown 01/18/2023 10:20 PM EDT 01/18/2023 10:26 PM EDT Narrative Resulting Agency Comment Spec In Lab Kyle Mckeon MD CHEMISTRY ORDERABLES [facility] [place] [address] * (ABNORMAL) Basic Metabolic Panel (non-fasting) (01/18/2023 10:16 PM EDT) Glucose Lvl 74 65 - 199 mg/dL [facility] Comment:Diabetes: >=200 mg/d L plus symptoms BUN 60(H) 10 - 20 mg/dL [facility] Creatinine 5.81(H) 0.80 - 1.50 mg/dL [facility] Sodium 145 135 - 145 mmol/L [facility] Potassium 4.8 3.5 - 5.0 mmol/L [facility] Comment: Please note: ??Patients with WBC >100,000 may have falsely elevated Potassium levels. ??For accurate Potassium quantification in these patients send serum separator tube (gold top) for subsequent determinations. ??Contact the Clinical Chemistry Laboratory if there are any questions. Chloride 109(H) 98 - 107 mmol/L [facility] CO2 Not Perf [facility] Comment:Add-on request. Samp le too old to perform test. Anion Gap Unable to Calculate 5 - 15 mmol/L [facility] Calcium 9.2 8.5 - 10.5 mg/dL [facility] Estimated GFR 10(L) >=60 mL/min/1 .73 m?? [facility] Comment: This patient's estimated GFR [...] and symptoms in addition to eGFR. Blood Venous Draw / Unknown 01/18/2023 10:16 PM EDT 01/18/2023 10:28 PM EDT Narrative Resulting Agency Comment Spec In Lab Kyle Mckeon MD CHEMISTRY ORDERABLES [facility] [place] [address] * (ABNORMAL) Differential, Automated (01/18/2023 10:16 PM EDT) Neutrophils % 78.0 % [facility] Neutr Abs (ANC) 5.41 1.70 - 6.10 x10(3)/mc L [facility] Lymphocytes % 11.5 % [facility] Lymphocytes Abs 0.8(L) 0.9 - 3.2 x10(3)/mc L [facility] Monocytes % 6.6 % [facility] Monocyte Abs 0.5 0.3 - 0.9 x10(3)/mc L [facility] Eosinophils % 3.0 % [facility] Eosinophils Abs 0.2 0.0 - 0.4 x10(3)/mc L [facility] Basophils % 0.6 % [facility] Basophils Abs 0.0 0.0 - 0.1 x10(3)/mc L [facility] Immature Gran % 0.30 % [facility] Comment: Immature granulocytes(IG's)percentage and absolute count will include metamyelocytes, myelocytes, and promyelocytes. Blood smears from CBCs yielding IG's will be scanned manually for concordance. If this scan disagrees with the automated IG or if promyelocytes are noted, a manual differential will be performed. Angelica Gran Abs 0.02 0.00 - 0.04 x10(3)/mc L [facility] Blood 01/18/2023 10:1 6 PM EDT 01/18/2023 10:27 PM EDT Narrative Resulting Agency Comment Spec In Lab Kyle Mckeon MD HEMATOLOGY ORDERABLE S [facility] [place] [address] * (ABNORMAL) Hemogram (01/18/2023 10:16 PM EDT) WBC 6.9 4.0 - 9.5 x10(3)/[facility] RBC 3.30(L) 4.58 - 5.54 x10(6)/[facility] Hemoglobin 10.1(L) 13.7 - 16.5 g/dL [facility] Hematocrit 31.0(L) 40.5 - 48.5 % [facility] MCV 93.9(H) 82.9 - 93.1 fL [facility] MCH 30.6 27.5 - 32.1 pg [facility] MCHC 32.6 32.0 - 35.7 g/dL [facility] Platelets 196 145 - 357 x10(3)/[facility] LABORATORY RDWSD 44.9 36.0 - 45.0 [facility]ORY RDWCV 13.1 11.4 - 13.8 % [facility] MPV 11.4 7.6 - 12.9 [facility]ORY nRBC % Auto 0.0 % [facility] nRBC Abs Auto 0.000 0.000 - 0.000 x10(3)/mcL [facility] Blood 01/18/2023 10:1 6 PM EDT 01/18/2023 10:27 PM EDT Narrative Resulting Agency Comment Spec In Lab Kyle Mckeon MD HEMATOLOGY ORDERABLE S Performing Organization Address [facility] Co de Phone Number [facility] [place] [place] [address] * Salicylate (01/18/2023 10:16 PM EDT) Salicylate Lvl 3 mg/L [facility] Comment: Therapeutic Range: ??< 200 mg/L Arthritic Therapy: ??150-300 mg/L Toxic: ?> 350 mg/L ??Concentrations > 500 mg/L may be an indication for alkalinization of urine. Concentrations > 800 mg/L are often an indication for hemodialysis. Blood 01/18/2023 10:1 6 PM EDT 01/18/2023 10:27 PM EDT Narrative Resulting Agency Comment Spec In Lab Tanya Seaman MD CHEMISTRY ORDERABL ES Performing Organization Address [facility] de Phone Number [facility] [place] [address] * (ABNORMAL) Acetaminophen level (01/18/2023 10:16 PM EDT) Acetamin Lvl <5(L) 5 - 30 mg/L [facility] Comment: Levels >150 mg/L at 4 hours post ingestion are often an indication for N-Acetylcysteine. Blood 01/18/2023 10:1 6 PM EDT 01/18/2023 10:27 PM EDT Narrative Resulting Agency Comment Spec In Lab Tanya Seaman MD CHEMISTRY ORDERABL ES Performing Organization Address [facility] Co de Phone Number [facility] [place] [address] * Phosphorus (01/18/2023 10:16 PM EDT) Phosphorus 4.2 2.5 - 4.5 mg/dL [facility] Blood 01/18/2023 10:1 6 PM EDT 01/18/2023 10:27 PM EDT Narrative Resulting Agency Comment Spec In Lab Tanya Seaman MD CHEMISTRY ORDERABL ES Performing Organization Address [facility]/ZIP Co de Phone Number [facility] [place] [address] * Magnesium (01/18/2023 10:16 PM EDT) Magnesium 0.87 0.69 - 1.07 mmol/L [facility] Blood 01/18/2023 10:1 6 PM EDT 01/18/2023 10:27 PM EDT Narrative Resulting Agency Comment Spec In Lab Tanya Seaman MD CHEMISTRY ORDERABL ES Performing Organization Address [facility] de Phone Number [facility] [place] [address] * APTT (01/18/2023 10:16 PM EDT) PTT 35 25 - 37 sec [facility] Comment: The PTT is NOT appropriate for heparin monitoring. Use the Anti-Xa level for heparin monitoring (HEP UFH) or LMWH monitoring (HEP LMW). A PTT less than 37 seconds generally indicates adequate hemostasis. Blood 01/18/2023 10:1 6 PM EDT 01/18/2023 10:27 PM EDT Narrative Resulting Agency Comment Spec In Lab Tanya Seaman MD HEMATOLOGY ORDERAB LES Performing Organization Address [facility]/ZIP Co de Phone Number [facility] [place] [address] * (ABNORMAL) Prothrombin Time (01/18/2023 10:16 PM EDT) PT 14.3(H) 9.4 - 12.5 sec [facility] INR 1.3 [facility] Comment: An INR <2.0 indicates adequate procoagulant activity for hemostasis in most patients without underlying bleeding disorders, though the INR may not adequately reflect hemostatic capacity in patients with liver disease and synthetic impairment. The recommended target INR range for therapeutic anticoagulation is 2.0 ? 3.0 for most applications, though lower and higher ranges may be appropriate depending on clinical circumstances. Blood 01/18/2023 10:1 6 PM EDT 01/18/2023 10:27 PM EDT Narrative Resulting Agency Comment Spec In Lab Tanya Seaman MD HEMATOLOGY ORDERAB LES [facility] [place] [address] * (ABNORMAL) Hemoglobin A1c (01/18/2023 10:16 PM EDT) Hemoglobin A1C 5.7(H) 4.3 - 5.6 % [facility] Comment: Reference Range: 4.3 - [...] Mellitus, Diabetes Care 2013; 36: Suppl. 1, S67-74 Est Avg Gluc 117 mg/dL [facility] Comment: eAG equivalents for HbA1c percentages: [...] into estimated average glucose values. ??Diabetes Care 2008:31(8):0415-0337. Blood 01/18/2023 10:1 6 PM EDT 01/18/2023 10:27 PM EDT Narrative Resulting Agency Comment Spec In Lab Tanya Seaman MD CHEMISTRY ORDERABL ES Performing Organization Address City/[facility] Co de Phone Number [facility] [place] [address] * TSH [place] (01/18/2023 10:16 PM EDT) TSH 2.03 0.27 - 4.20 mcIU/mL [facility] Comment: Reference Interval (mcIU/mL): Females: ??First Trimester: 0.23-3.88 ??Second Trimester: 0.22-3.90 ??Third Trimester: 0.44-4.66 Blood 01/18/2023 10:1 6 PM EDT 01/18/2023 10:27 PM EDT Narrative Resulting Agency Comment Spec In Lab Tanya Seaman MD CHEMISTRY ORDERABL ES Performing Organization Address City/[facility]/ZIP Co de Phone Number [facility] [place] [address] * LDL Cholesterol, Direct (01/18/2023 10:16 PM EDT) LDL Chol Direct 65 mg/dL [facility] Comment: Lowest Risk: <100 mg/dL Lower Risk: 100-129 mg/dL Borderline High Risk: 130-159 mg/dL High Risk: 160-189 mg/dL Very High Risk: >si=574 mg/dL Blood 01/18/2023 10:1 6 PM EDT 01/18/2023 10:27 PM EDT Narrative Resulting Agency Comment Spec In Lab Tanya Seaman MD CHEMISTRY ORDERABL ES [facility] [place] [address] * HDL/Cholesterol Profile (01/18/2023 10:16 PM EDT) Chol, Total 122 mg/dL [facility] Comment: Lower Risk: <200 mg/dL Average Risk: 200-239 mg/dL Higher Risk: >wn=715 mg/dL HDL 27 mg/dL [facility] Comment: Males: ?? Higher Risk: <40 mg/dL Females: ?? Higher Risk: <50 mg/dL Chol/HDL Ratio 4.5 ratio [facility] Chol/HDL Interpretation See Note [facility] Comment: Lipid management should be guided by a patient? s ASCVD risk, goals and preferences. ACC/AHA Guidelines recommend high intensity statin if clinical ASCVD or LDL greater than or equal to 190 mg/dL. http://[employer] Pharm[employer]url.com/WLZ-UGT-Ilyvkvdle Measure LDL if Total Cholesterol minus HDL Cholesterol is greater than 220 mg/dL. Adults aged 40-75 with LDL 70-189 mg/dL should have their 10 year ASCVD risk estimated with the ACC/AHA ASCVD risk patient companion http://tools.acc.org/RVYUJ-Vzar-Zxntvqhrk/ Statin should be discussed if risk greater [...] Resulting Agency Comment Spec In Lab Tanya Seaman MD CHEMISTRY ORDERABL ES [facility] [place] [address] * (ABNORMAL) Troponin (01/18/2023 10:16 PM EDT) Troponin-T HS 78(H) <=22 ng/L [facility] Comment: This patient's troponin T concentration was determined using the Nup[employer] 5th Generation troponin T assay. The 99th percentile for Troponin T for this test is 14 ng/L for females, and 22 ng/L for males. According to the fourth universal definition of myocardial infarction, the term acute myocardial infarction should be used when there is acute myocardial injury with clinical evidence of acute myocardial ischemia and with detection of a rise and/or fall of cardiac troponin values with at least one value above the 99th percentile and at least one of the following: - Symptoms of myocardial ischemia; - New ischemic ECG changes; - Development of pathological Q waves; - Imaging evidence of new loss of viable myocardium or new regional wall motion abnormality in a pattern consistent with an ischemic etiology; - Identification of a coronary thrombus by angiography or autopsy (not for type 2 or 3 MIs) Serial measurement of troponin and the change in troponin concentration over time (delta) is crucial for the diagnosis of acute myocardial infarction. Guidance on the interpretation of the new 5th Generation Troponin T values and the delta troponin value can be found in the [facility] Test Catalog Troponin - [facility] Test Catalog Reference: Fourth [place] Definition of Myocardial Infarction. Journal of the [place] [employer] 2018;72:5485-5382 Blood 01/18/2023 10:1 6 PM EDT 01/18/2023 10:27 PM EDT Narrative Resulting Agency Comment Spec In Lab Tanya Seaman MD CHEMISTRY ORDERABL ES Performing Organization Address [facility] Co de Phone Number [facility] [place] [address] * (ABNORMAL) Protein/Creatinine Ratio, urine (01/18/2023 10:13 PM EDT) U Creatinine 41 mg/dL [facility] U Protein Ran 200(H) 0 - 12 mg/dL [facility] Prot/Cre Ratio 4.9 ratio [facility] Urine Urine / Unknown 01/18/2023 1 0:13 PM EDT 01/18/2023 10:29 PM EDT Narrative Resulting Agency Comment Spec In Lab Deonte Lugo MD URINE ORDERABLES Performing Organization Address [facility] Co de Phone Number [facility] [place] [address] * Urine culture (01/18/2023 10:13 PM EDT) Urine Culture No growth (Less than 1,000 cfu/ml). [facility] Indwelling Catheter Urine 01/18/2023 10:13 PM EDT 01/18/2023 11:08 PM EDT Narrative Resulting Agency Comment Spec In Lab Kyle Mckeon MD MICROBIOLOGY - GENER AL ORDERABLES Performing Organization Address [facility]/ZIP Co de Phone Number [facility] [place] [address] * (ABNORMAL) Urinalysis Microscopic Exam (01/18/2023 10:13 PM EDT) RBC UA >100(H) 0 - 3 /HPF [facility] WBC UA 10(H) 0 - 3 /HPF [facility] Squam Epith UA 5(H) <=4 /HPF [facility] Hyaline Cast UA 2 0 - 2 /LPF [facility] Indwelling Catheter Urine 01/18/2023 10:13 PM EDT 01/18/2023 10:22 PM EDT Narrative Resulting Agency Comment Spec In Lab Kyle Mckeon MD URINE ORDERABLES [facility] [place] [address] * Rapid Drug Screen w/ Confirmation, Urine (01/18/2023 10:13 PM EDT) U Barbiturates Screen None Detected None Detected [facility] Comment: The barbiturate screen detects barbiturates at concentrations >200 ng/mL. Note: Not all barbiturates cross-react equally with antibody used in this screen. A ? Presumptive Positive? result indicates that the screening result was positive but has not yet been confirmed by a highly-specific method. As with any screen, occasional false positive results from cross-reacting substances may occur. Not for Medico-Legal Purposes. U Benzodiazepines Screen None Detected None Detected [facility] Comment: The benzodiazepines screen detects benzodiazepines at concentrations >100 ng/mL. Not all benzodiazepines cross-react equally with antibody used in this screen. Due to the low dosage of clonazepam, false negatives may be obtained due to low concentration of clonazepam metabolites. A ? Presumptive Positive? result indicates that the screening result was positive but has not yet been confirmed by a highly-specific method. As with any screen, occasional false positive results from cross-reacting substances may occur. Not for Medico-Legal Purposes. U Cocaine Screen None Detected None Detected [facility] Comment: The cocaine metabolites screen detects benzoylecgonine (Cocaine Metabolite) at concentrations >150 ng/mL. A ? Presumptive Positive? result indicates that the screening result was positive but has not yet been confirmed by a highly-specific method. As with any screen, occasional false positive results from cross-reacting substances may occur. Not for Medico-Legal Purposes. U Methadone Metabolites Screen None Detected None Detected [facility] Comment: The methadone metabolite screen detects EDDP (major methadone metabolite) at concentrations >100 ng/mL. A ? Presumptive Positive? result indicates that the screening result was positive but has not yet been confirmed by a highly-specific method. As with any screen, occasional false positive results from cross-reacting substances may occur. Not for Medico-Legal Purposes. U Opiate Screen None Detected None Detected [facility] Comment: The opiates screen detects opiates at concentrations >300 ng/mL. Please note that oxycodone, oxymorphone, fentanyl, tramadol, and other synthetic opioids are not detected by the opiate screen. A ? Presumptive Positive? result indicates that the screening result was positive but has not yet been confirmed by a highly-specific method. As with any screen, occasional false positive results from cross-reacting substances may occur. Not for Medico-Legal Purposes. U Cannabinoid Screen None Detected None Detected [facility] Comment: The marijuana metabolites screen detects the THC metabolite (72-ufx-2-carboxy-delta 9-THC) at concentrations >20 ng/mL. A ? Presumptive Positive? result indicates that the screening result was positive but has not yet been confirmed by a highly-specific method. As with any screen, occasional false positive results from cross-reacting substances may occur. Not for Medico-Legal Purposes. U Oxycodone Screen None Detected None Detected [facility] Comment: The oxycodone screen detects oxycodone and oxymorphone at concentrations >100 ng/mL. A ? Presumptive Positive? result indicates that the screening result was positive but has not yet been confirmed by a highly-specific method. As with any screen, occasional false positive results from cross-reacting substances may occur. Not for Medico-Legal Purposes. U Buprenorphine Screen None Detected None Detected [facility] Comment: The buprenorphine screen detects buprenorphine at concentrations >=5 ng/mL. A ? Presumptive Positive? result indicates that the screening result was positive but has not yet been confirmed by a highly-specific method. As with any screen, occasional false positive results from cross-reacting substances may occur. Not for Medico-Legal Purposes. This test has not been cleared by the [place] FDA. Performance characteristics of this test were determined by [facility] in accordance with CLIA requirements. This laboratory is qualified under CLIA to perform high-complexity testing. U Fentanyl Screen None Detected None Detected [facility] Comment: The fentanyl screen detects fentanyl at concentrations >=2 ng/mL. A ? Presumptive Positive? result indicates that the screening result was positive but has not yet been confirmed by a highly-specific method. As with any screen, occasional false positive results from cross-reacting substances may occur. Not for Medico-Legal Purposes. This test has not been cleared by the [place] FDA. Performance characteristics of this test were determined by [facility] in accordance with CLIA requirements. This laboratory is qualified under CLIA to perform high-complexity testing. U Tricyclics Screen None Detected None Detected [facility] Comment: The tricyclics screen detects tricyclic antidepressants at concentrations >=150 ng/mL. Not all tricyclics cross-react equally with the antibody used in this screen. A ? Presumptive Positive? result indicates that the screening result was positive but has not yet been confirmed by a highly-specific method. As with any screen, occasional false positive results from cross-reacting substances may occur. Not for Medico-Legal Purposes. This test has not been cleared by the [place] FDA. Performance characteristics of this test were determined by [facility] in accordance with CLIA requirements. This laboratory is qualified under CLIA to perform high-complexity testing. U Ethanol Screen None Detected None Detected [facility] Comment:This urine ethanol a ssay detects ethanol at concentrations >/= 100 mg/L. U Amphetamines Screen None Detected None Detected [facility] Comment: The amphetamine screen detects d-amphetamine and d-methamphetamine at concentrations >300 ng/mL. A ? Presumptive Positive? result indicates that the screening result was positive but has not yet been confirmed by a highly-specific method. As with any screen, occasional false positive results from cross-reacting substances may occur. Not for Medico-Legal Purposes. U Creat HEATHER 42 >=20 mg/dL [facility] U Chromate HEATHER <2.0 <=49.9 mg/L [facility] U Nitrite HEATHER <50 <=499 mg/L [facility] U Oxidant HEATHER 6 <=199 mg/L [facility] [facility] pH HEATHER 6.0 3.0 - 10.9 [facility] U Adulterants Screen None Detected None Detected [facility] Comment:No adulteration of t his urine sample was detected. Urine 01/18/2023 10:1 3 PM EDT 01/18/2023 10:22 PM EDT Narrative Resulting Agency Comment Spec In Lab Kyle Mckeon MD CHEMISTRY ORDERABLES Performing Organization Address City/[facility]/ZIP Co de Phone Number [facility] [place] [address] * Rapid Drug Screen, Urine (HEATHER Request) (01/18/2023 10:13 PM EDT) HEATHER Conf Requested Yes [facility] HEATHER Requested See Comment [facility] Comment:Refer to Rapid Drug Screen w/ Confirmation, Urine for results. Urine 01/18/2023 10:1 3 PM EDT 01/18/2023 10:22 PM EDT Narrative Resulting Agency Comment Spec In Lab Tanya Seaman MD URINE ORDERABLES Performing Organization Address [facility]/ZIP Co de Phone Number [facility] [place] [address] * Creatinine, urine, random (01/18/2023 10:13 PM EDT) U Creatinine 41 mg/dL [facility] Urine 01/18/2023 10:1 3 PM EDT 01/18/2023 10:22 PM EDT Narrative Resulting Agency Comment Spec In Lab Tanya Seaman MD URINE ORDERABLES Performing Organization Address City/[facility]/ZIP Co de Phone Number [facility] [place] [address] * Urea nitrogen, urine, random (01/18/2023 10:13 PM EDT) U Urea Nitrogen 251 mg/dL [facility] Urine 01/18/2023 10:1 3 PM EDT 01/18/2023 10:22 PM EDT Narrative Resulting Agency Comment Spec In Lab Tanya Seaman MD URINE ORDERABLES Performing Organization Address [facility]/ZIP Co de Phone Number [facility] [place] [address] * (ABNORMAL) Urinalysis with reflex Culture (01/18/2023 10:13 PM EDT) Glucose UA Negative Negative mg/dL [facility] Protein UA >=300(A) Negative mg/dL [facility] Bilirubin UA Negative Negative mg/dL [facility] Comment: Clinical correlation required for positive Urine Bilirubin results as false positive may occur with some drugs and drug related products. If a false positive is suspected a serum total bilirubin should be considered if clinically indicated. Urobilinogen UA Normal Normal mg/dL [facility] pH UA 6.5 5.0 - 8.0 [facility] Blood UA Large(A) Negative mg/dL [facility] Ketones UA Negative Negative mg/dL [facility] Nitrite UA Negative Negative [facility] Leukocytes UA Small(A) Negative [facility] Appearance UA Cloudy(A) Clear [facility] Spec [place] UA 1.010 1.005 - 1.030 [facility] Color UA Red(A) Yellow [facility] Culture Reflexed Yes [facility] Indwelling Catheter Urine 01/18/2023 10:13 PM EDT 01/18/2023 10:22 PM EDT Narrative Resulting Agency Comment Spec In Lab Tanya Seaman MD URINE ORDERABLES Performing Organization Address City/[facility]/ZIP Co de Phone Number [facility] [place] [address] * Lactate, whole blood, send to lab ([facility] (01/18/2023 7:46 PM EDT) Lactate WB 1.6 0.5 - 2.2 mmol/L [facility] Blood 01/18/2023 7:46 PM EDT 01/18/2023 7:51 PM EDT Narrative Resulting Agency Comment Spec In Lab Tanya Seaman MD CHEMISTRY ORDERABL ES [facility] [place] [address] * (ABNORMAL) Differential, Automated (01/18/2023 7:16 PM EDT) Neutrophils % 80.9 % [facility] Neutr Abs (ANC) 5.86 1.70 - 6.10 x10(3)/ L [facility] Lymphocytes % 9.7 % [facility] Lymphocytes Abs 0.7(L) 0.9 - 3.2 x10(3)/ L [facility] Monocytes % 5.9 % [facility] Monocyte Abs 0.4 0.3 - 0.9 x10(3)/ L [facility] Eosinophils % 2.6 % [facility] Eosinophils Abs 0.2 0.0 - 0.4 x10(3)/ L [facility] Basophils % 0.6 % [facility] Basophils Abs 0.0 0.0 - 0.1 x10(3)/ L [facility] Immature Gran % 0.30 % [facility] Comment: Immature granulocytes(IG's)percentage and absolute count will include metamyelocytes, myelocytes, and promyelocytes. Blood smears from CBCs yielding IG's will be scanned manually for concordance. If this scan disagrees with the automated IG or if promyelocytes are noted, a manual differential will be performed. Angelica Gran Abs 0.02 0.00 - 0.04 x10(3)/mc L [facility] Blood 01/18/2023 7:16 PM EDT 01/18/2023 7:27 PM EDT Narrative Resulting Agency Comment Spec In Lab Kyle Mckeon MD HEMATOLOGY ORDERABLE S [facility] [place] [address] * (ABNORMAL) Hemogram (01/18/2023 7:16 PM EDT) WBC 7.2 4.0 - 9.5 x10(3)/[facility] RBC 3.24(L) 4.58 - 5.54 x10(6)/[facility] Hemoglobin 10.1(L) 13.7 - 16.5 g/dL [facility] Hematocrit 30.1(L) 40.5 - 48.5 % [facility] MCV 92.9 82.9 - 93.1 [facility] MCH 31.2 27.5 - 32.1 pg [facility] MCHC 33.6 32.0 - 35.7 g/dL [facility] Platelets 183 145 - 357 x10(3)/[facility] RDWSD 44.4 36.0 - 45.0 [facility] RDWCV 13.2 11.4 - 13.8 % [facility] MPV 11.9 7.6 - 12.9 [facility] nRBC % Auto 0.0 % [facility] nRBC Abs Auto 0.000 0.000 - 0.000 x10(3)/[facility] Blood 01/18/2023 7:16 PM EDT 01/18/2023 7:27 PM EDT Narrative Resulting Agency Comment Spec In Lab Kyle Mckeon MD HEMATOLOGY ORDERABLE S [facility] [place] [address] * (ABNORMAL) pro-Brain Natriuretic Peptide (01/18/2023 7:16 PM EDT) ProBNP 11,818(H) <=124 pg/mL [facility] Blood 01/18/2023 7:16 PM EDT 01/18/2023 7:27 PM EDT Narrative Resulting Agency Comment Spec In Lab Tanya Seaman MD CHEMISTRY ORDERABL ES [facility] [place] [address] * (ABNORMAL) Troponin (01/18/2023 7:16 PM EDT) Troponin-T HS 78(H) <=22 ng/L [facility] Comment: This patient's troponin T concentration was determined using the [employer] 5th Generation troponin T assay. The 99th percentile for Troponin T for this test is 14 ng/L for females, and 22 ng/L for males. According to the fourth universal definition of myocardial infarction, the term acute myocardial infarction should be used when there is acute myocardial injury with clinical evidence of acute myocardial ischemia and with detection of a rise and/or fall of cardiac troponin values with at least one value above the 99th percentile and at least one of the following: - Symptoms of myocardial ischemia; - New ischemic ECG changes; - Development of pathological Q waves; - Imaging evidence of new loss of viable myocardium or new regional wall motion abnormality in a pattern consistent with an ischemic etiology; - Identification of a coronary thrombus by angiography or autopsy (not for type 2 or 3 MIs) Serial measurement of troponin and the change in troponin concentration over time (delta) is crucial for the diagnosis of acute myocardial infarction. Guidance on the interpretation of the new 5th Generation Troponin T values and the delta troponin value can be found in the [facility] Test Catalog Troponin - [facility] Test Catalog Reference: Fourth [place] Definition of Myocardial Infarction. Journal of the [place] [employer] 2018;72:6114-9320 Blood 01/18/2023 7:16 PM EDT 01/18/2023 7:27 PM EDT Narrative Resulting Agency Comment Spec In Lab Tanya Seaman MD CHEMISTRY ORDERABL ES [facility] [place] [address] * (ABNORMAL) Comprehensive metabolic panel (non-fasting) (01/18/2023 7:16 PM EDT) Glucose Lvl 76 65 - 199 mg/dL [facility] Comment:Diabetes: >=200 mg/d L plus symptoms BUN 60(H) 10 - 20 mg/dL [facility] Creatinine 5.71(H) 0.80 - 1.50 mg/dL [facility] Sodium 144 135 - 145 mmol/L [facility] Potassium 4.6 3.5 - 5.0 mmol/L [facility] Comment: Please note: ??Patients with WBC >100,000 may have falsely elevated Potassium levels. ??For accurate Potassium quantification in these patients send serum separator tube (gold top) for subsequent determinations. ??Contact the Clinical Chemistry Laboratory if there are any questions. Chloride 109(H) 98 - 107 mmol/L [facility] CO2 21(L) 22 - 31 mmol/L [facility] Anion Gap 14 5 - 15 mmol/L [facility] Calcium 9.3 8.5 - 10.5 mg/dL [facility] Total Protein 7.2 6.1 - 8.0 g/dL [facility] Albumin 4.2 3.2 - 5.2 g/dL [facility] AST 12 0 - 39 unit/L [facility] ALT 12 0 - 55 unit/L [facility] Alk Phos 95 40 - 130 unit/L [facility] Total Bilirubin 0.7 0.2 - 1.3 mg/dL [facility] Estimated GFR 10(L) >=60 mL/min/1. 73 m?? [facility] Comment: This patient's estimated GFR [...] and symptoms in addition to eGFR. Blood 01/18/2023 7:16 PM EDT 01/18/2023 7:27 PM EDT Narrative Resulting Agency Comment Spec In Lab Tanya Seaman MD CHEMISTRY ORDERABL ES Performing Organization Address [facility] Co de Phone Number [facility] [place] [phone] * EKG 12 Lead (01/18/2023 6:52 PM EDT) Ventricular rate 69 BPM MUSE SYSTEM Atrial Rate 69 BPM MUSE SYSTEM P-R Interval 212 ms MUSE SYSTEM QRS Duration 126 ms MUSE SYSTEM Q-T Interval 432 ms MUSE SYSTEM QTC Calculated (Bezet) 462 ms MUSE SYSTEM Calculated P [place] 46 degrees MUSE SYSTEM Calculated R [place] -37 degrees MUSE SYSTEM Calculated T [place] 101 degrees MUSE SYSTEM INTERPRETATION Sinus rhythm with 1st degree A-V block Left axis deviation Non-specific intra-ventricul ar conduction block Possible Lateral infarct , age undetermined Abnormal ECG No previous ECGs available Confirmed by Tessa Saldivar ([id number]) on 01/19/2023 9:21:20 AM MUSE SYSTEM 01/18/2023 6:52 PM EDT 01/19/2023 9:21 AM EDT Tanya Seaman MD ECG ORDERABLES Performing Organization Address [facility] Co de Phone Number MUSE SYSTEM documented in this encounter Visit Diagnoses Diagnosis Acute on chronic systolic ACC/AHA stage C congestive heart failure- Primary Heart failure, unspecified HF chronicity, unspecified heart failure type Acute kidney injury Acute kidney failure, unspecified Other polyneuropathy Type 2 diabetes with nephropathy Type II or unspecified type diabetes mellitus with renal manifestations, not stated as uncontrolled Acute kidney injury Acute kidney failure, unspecified Schizophrenia Unspecified schizophrenia, unspecified condition Peripheral neuropathy Unspecified hereditary and idiopathic peripheral neuropathy Type 2 diabetes with nephropathy Type II or unspecified type diabetes mellitus with renal manifestations, not stated as uncontrolled Obstructive uropathy Urinary obstruction, unspecified documented in this encounter Admitting Diagnoses Diagnosis Heart failure Heart failure, unspecified documented in this encounter Administered Medications Inactive Administered Medications - up to 3 most recent administrations Medication Order MAR Action Action Date Dose Rate Site acetaminophen (Tylenol) tablet 650 mg 650 mg, Oral, EVERY 6 HOURS PRN, Starting on Wed01/20/23 at 2228, Until Wed01/27/23 at 1827, Pain, Headaches, Maximum dose of acetaminophen is 4,000 mg from all sources in 24 hours. When ordered for pain, acetaminophen should be given even when other ordered pain medications are indicated. , Routine aspirin chewable tablet 324 mg 324 mg, Oral, ONCE, 1 dose, On Wed01/18/23 at 2130, Routine Given 01/18/2023 10:24 PM EDT 324 mg aspirin EC tablet 81 mg 81 mg, Oral, DAILY, First dose on Wed01/19/23 at 0900, Until Discontinued, Routine Given 01/23/2023 8:51 AM EDT 81 mg Given 01/22/2023 8:40 AM EDT 81 mg Given 01/21/2023 9:41 AM EDT 81 mg atorvastatin (Lipitor) tablet 80 mg 80 mg, Oral, EVERY EVENING, First dose on Wed01/18/23 at 2200, Until Discontinued, Routine Given 01/26/2023 6:26 PM EDT 80 mg Given 01/25/2023 5:41 PM EDT 80 mg Given 01/24/2023 4:43 PM EDT 80 mg capsaicin (Zostrix) 0.025 % cream Topical (Top), 2 TIMES DAILY, First dose on Wed01/20/23 at 2330, Until Discontinued Given 01/25/2023 8:35 AM EDT Given 01/23/2023 9:18 PM EDT Given 01/22/2023 9:09 PM EDT cholecalciferol (Vitamin D3) tablet 5,000 Units 5,000 Units, Oral, DAILY, First dose on Wed01/24/23 at 1600, Until Discontinued, 40 units is equivalent to 1 mcg of cholecalciferol., Routine Given 01/27/2023 9:10 AM EDT 5,000 Units Given 01/26/2023 8:28 AM EDT 5,000 Units Given 01/25/2023 8:28 AM EDT 5,000 Units dextrose 10% infusion 250 mL, at 1,000 mL/hr, Intravenous, EVERY 30 MIN PRN, Starting on Wed01/18/23 at 2042, Until Wed01/27/23 at 1827, For BG 50-70 mg/dL: Oral treatment preferred: If able to drink, give 120 mL Juice or Regular (not diet) soda OR If NPO, give 15 gram glucose 40% oral gel massaged into buccal mucosa OR if unconscious or uncooperative, give 25 gram (250 mL) Dextrose 10% IV over 15 minutes per protocol OR, if no IV access, 1 mg Glucagon IM. For BG less than 50 mg/dL: Oral treatment preferred: If able to drink, give 240 mL Juice or Regular (not diet) soda OR If NPO, give 30 gram glucose 40% oral gel massaged in buccal mucosa OR if unconscious or uncooperative, give 25 gram (250 mL) Dextrose 10% IV over 15 minutes per protocol OR, if no IV access, 1 mg Glucagon IM. Recheck BG in 30 minutes. May repeat juice/soda, gel, dextrose or glucagon once per episode. For persistent hypoglycemia, consider longer-acting treatment for the duration of the active insulin. finasteride (Proscar) tablet 5 mg 5 mg, Oral, DAILY, First dose on Wed01/20/23 at 1230, Until Discontinued, DO NOT SPLIT, CRUSH OR OPEN, Routine Given 01/27/2023 9:09 AM EDT 5 mg Given 01/26/2023 8:29 AM EDT 5 mg Given 01/25/2023 8:28 AM EDT 5 mg furosemide (Lasix) (10 mg/mL) injection 40 mg 40 mg, Intravenous, ONCE, 1 dose, On Wed01/20/23 at 1130 Given 01/20/2023 11:30 AM EDT 40 mg furosemide (Lasix) (10 mg/mL) injection 80 mg 80 mg, Intravenous, ONCE, 1 dose, On Wed01/18/23 at 2130 Given 01/18/2023 10:14 PM EDT 80 mg furosemide (Lasix) (10 mg/mL) injection 80 mg 80 mg, Intravenous, ONCE, 1 dose, On Wed01/19/23 at 1415 Given 01/19/2023 2:56 PM EDT 80 mg furosemide (Lasix) (10 mg/mL) injection 80 mg 80 mg, Intravenous, ONCE, 1 dose, On Wed01/20/23 at 0930 Given 01/20/2023 8:54 AM EDT 80 mg gabapentin (Neurontin) capsule 100 mg 100 mg, Oral, 2 TIMES DAILY, First dose on Wed01/19/23 at 1645, Until Discontinued, Routine Given 01/27/2023 9:09 AM EDT 100 mg Given 01/26/2023 9:02 PM EDT 100 mg Given 01/26/2023 8:28 AM EDT 100 mg glucagon (Glucagen) (1 mg/mL) injection solution 1 mg 1 mg, Intramuscular, EVERY 30 MIN PRN, Starting on Wed01/18/23 at 2041, Until Wed01/27/23 at 1827, Low blood sugar, For BG 50-70 mg/dL: Oral treatment preferred: If able to drink, give 120 mL Juice or Regular (not diet) soda OR If NPO, give 15 gram glucose 40% oral gel massaged into buccal mucosa OR if unconscious or uncooperative, give 25 gram (250 mL) Dextrose 10% IV over 15 minutes per protocol OR, if no IV access, 1 mg Glucagon IM. For BG less than 50 mg/dL: Oral treatment preferred: If able to drink, give 240 mL Juice or Regular (not diet) soda OR If NPO, give 30 gram glucose 40% oral gel massaged in buccal mucosa OR if unconscious or uncooperative, give 25 gram (250 mL) Dextrose 10% IV over 15 minutes per protocol OR, if no IV access, 1 mg Glucagon IM. Recheck BG in 30 minutes. May repeat juice/soda, gel, dextrose or glucagon once per episode. For persistent hypoglycemia, consider longer-acting treatment for the duration of the active insulin., Routine glucose (Glutose) 40% oral geL 15-30 g of glucose, Buccal, EVERY 30 MIN PRN, Starting on Wed01/18/23 at 204, Until Wed01/27/23 at 1827, Low blood sugar, For BG 50-70 mg/dL: Oral treatment preferred: If able to drink, give 120 mL Juice or Regular (not diet) soda OR If NPO, give 15 gram glucose 40% oral gel massaged into buccal mucosa OR if unconscious or uncooperative, give 25 gram (250 mL) Dextrose 10% IV over 15 minutes per protocol OR, if no IV access, 1 mg Glucagon IM. For BG less than 50 mg/dL: Oral treatment preferred: If able to drink, give 240 mL Juice or Regular (not diet) soda OR If NPO, give 30 gram glucose 40% oral gel massaged in buccal mucosa OR if unconscious or uncooperative, give 25 gram (250 mL) Dextrose 10% IV over 15 minutes per protocol OR, if no IV access, 1 mg Glucagon IM. Recheck BG in 30 minutes. May repeat juice/soda, gel, dextrose or glucagon once per episode. For persistent hypoglycemia, consider longer-acting treatment for the duration of the active insulin. 1 tube of Glutose-15 contains 15 grams of glucose (net weight of tube = 37.5 grams.), Routine heparin (porcine) (1,000 units/mL) injection 4,000 Units 4,000 Units, Intravenous, ONCE, 1 dose, On Wed01/18/23 at 2130, INITIAL LOADING DOSE Maximum loading dose 4,000 units, Routine Given 01/18/2023 10:18 PM EDT 4,000 Units heparin (porcine) (5,000 units/1 mL) subcutaneous injection 5,000 Units 5,000 Units, Subcutaneous, EVERY 8 HOURS SCHEDULED, First dose on Wed01/19/23 at 0030, Until Discontinued, Start 2 hours after discontinuation of heparin infusion. , Routine Given 01/19/2023 6:23 AM EDT 5,000 Units heparin (porcine) (5,000 units/1 mL) subcutaneous injection 7,500 Units 7,500 Units, Subcutaneous, EVERY 8 HOURS SCHEDULED, First dose on Wed01/19/23 at 1400, Until Discontinued, Routine Given 01/26/2023 2:57 PM EDT 7,500 Units Given 01/25/2023 9:20 PM EDT 7,500 Units Given 01/25/2023 2:06 PM EDT 7,500 Units heparin (porcine) 50 units/mL in dextrose 5% 500 mL infusion 0-5,000 Units/hr (0-100 mL/hr), Intravenous, CONTINUOUS, Starting on Wed01/18/23 at 2130, Until Wed01/18/23 at 2328, Begin infusion at 1,000 units per hr (12 units/kg/hr). Maximum initial infusion rate is 1,000 units/hr. Infusion doses are rounded to the nearest 50 units. Target Heparin UFH Level (anti-Xa activity) = 0.3 - 0.7 international unit/mL Start adjustment schedule 6 hours after starting infusion. If Heparin UFH Level is: - Less than 0.1 international unit/mL: Administer PRN bolus and increase rate by 450 units per hr (4 units/kg/hr) - 0.1 - 0.19 international unit/mL: Administer PRN bolus and increase rate by 200 units per hr (2 units/kg/hr) - 0.2 - 0.29 international unit/mL: NO BOLUS and increase rate by 200 units per hr (2 units/kg/hr) - 0.3 - 0.7 international unit/mL: No change - 0.71 - 0.79 international unit/mL: NO BOLUS and decrease rate by 100 units per hr (1 units/kg/hr) - 0.8 - 0.99 international unit/mL: NO BOLUS and decrease rate by 200 units per hr (2 units/kg/hr) - Greater than or equal to 1.00 international unit/mL: Hold infusion for 60 minutes then decrease rate by 350 units per hour (3 units/kg/hr) Obtain Heparin UFH Level 6 hours after initiating heparin. Then 6 hours after each dose adjustment. When 2 consecutive Heparin UFH Level within target range of 0.3 - 0.7 international unit/mL, change Heparin UFH Level to once every 24 hours with A.M. labs while on heparin. RN to order required Heparin UFH Level - Per Protocol, Routine New Bag 01/18/2023 10:21 PM EDT 1,000 Units/hr 20 mL/hr hydrocortisone 1 % cream Topical (Top), 2 TIMES DAILY, First dose on Wed01/22/23 at 2345, Until Discontinued Given 01/25/2023 8:36 AM EDT Given 01/23/2023 9:18 PM EDT Given 01/22/2023 11:45 PM EDT insulin lispro (HumaLOG;Admelog) (100 unit/mL) subcutaneous injection vial 0-8 Units 0-8 Units, Subcutaneous, 3 TIMES DAILY WITH MEALS, First dose on Wed01/19/23 at 0800, Until Discontinued, [employer] Give 1 unit for every 10 grams carbohydrate. Hold if not eating or if BG less than 70 mg/dL., Routine Given 01/25/2023 5:41 PM EDT 3 Units Given 01/25/2023 12:51 PM EDT 4 Units Given 01/22/2023 6:44 PM EDT 3 Units insulin lispro (HumaLOG;Admelog) (100 unit/mL) subcutaneous injection vial 1-4 Units 1-4 Units, Subcutaneous, 3 TIMES DAILY BEFORE MEALS, First dose on Wed01/19/23 at 0730, Until Discontinued, CORRECTION BOLUS [1-4 Units] Sensitive Sliding Scale (BG in mg/dL): Correction factor 40 (1 unit of insulin is expected to drop the glucose 40 mg/dL) BG 160 - 200 Give 1 unit BG 201 - 240 Give 2 units BG 241 - 280 Give 3 units BG greater than 280, give 4 units and recheck BG in 2 hours. - If recheck BG is LESS than 280, give no insulin and resume schedule - If recheck BG is GREATER than 280, give 4 units and repeat BG in 2 hours (no more than 3 times) & call for new insulin orders. DO NOT hold if NPO, unless specifically directed to do so by written order. Per Blood Glucose Monitoring Policy, re-check a BG of > 240 mg/dL in 2 hours., Routine Given 01/27/2023 9:08 AM EDT 1 Units Given 01/26/2023 12:46 PM EDT 1 Units Given 01/25/2023 12:51 PM EDT 1 Units losartan (Cozaar) tablet 12.5 mg 12.5 mg, Oral, DAILY, First dose (after last modification) on Wed01/24/23 at 1800, Until Discontinued, Routine Given 01/27/2023 9:10 AM EDT 12.5 mg Given 01/26/2023 8:29 AM EDT 12.5 mg Given 01/25/2023 8:28 AM EDT 12.5 mg magnesium sulfate 1 g in dextrose 5% 100 mL infusion 1 g, Intravenous, ONCE, 1 dose, On Wed01/20/23 at 0530, Administer over 60 Minutes New Bag 01/20/2023 6:16 AM EDT 1 g 100 mL/hr magnesium sulfate 1 g in dextrose 5% 100 mL infusion 1 g, Intravenous, ONCE, 1 dose, On Wed01/24/23 at 0500, Administer over 60 Minutes New Bag 01/24/2023 5:47 AM EDT 1 g 100 mL/hr magnesium sulfate 2 g in sterile water 50 mL infusion 2 g, Intravenous, ONCE, 1 dose, On Wed01/19/23 at 0100, Administer over 120 Minutes New Bag 01/19/2023 1:27 AM EDT 2 g 25 mL/hr metoprolol succinate XL (Toprol-XL) tablet 25 mg 25 mg, Oral, DAILY, First dose on Wed01/22/23 at 0945, Until Discontinued, DO NOT CRUSH OR OPEN, Routine Given 01/27/2023 9:10 AM EDT 25 mg Given 01/26/2023 8:28 AM EDT 25 mg Given 01/25/2023 8:28 AM EDT 25 mg OLANZapine (ZyPREXA) tablet 15 mg 15 mg, Oral, NIGHTLY, First dose on Wed01/19/23 at 2100, Until Discontinued, Routine Given 01/20/2023 8:16 PM EDT 15 mg perflutren protein-A microsphers (Optison) (0.22 mg/mL) injection 0.5 mL 0.5 mL, Intravenous, ONCE PRN, 1 dose, Starting on Wed01/19/23 at 0900, Until Wed01/19/23 at 0730, for enhancement of sub-optimal echo images, Echo Lab (Intra-Procedure), Routine Given 01/19/2023 7:30 AM EDT 3 mLs sodium chloride 0.9 % (flush) (BD PosiFlush Normal Saline 0.9) flush 5 mL 5 mL, Intravenous, 2 TIMES DAILY, First dose on Wed01/18/23 at 2130, Until Discontinued, Routine Given 01/27/2023 9:13 AM EDT 5 mLs Given 01/26/2023 9:02 PM EDT 5 mLs Given 01/25/2023 9:22 PM EDT 5 mLs tamsulosin (Flomax) capsule 0.4 mg 0.4 mg, Oral, DAILY, First dose on Wed01/20/23 at 1230, Until Discontinued, DO NOT CRUSH OR CHEW, Routine Given 01/26/2023 8:29 AM EDT 0.4 mg Given 01/25/2023 8:28 AM EDT 0.4 mg Given 01/24/2023 9:00 AM EDT 0.4 mg tamsulosin (Flomax) capsule 0.4 mg 0.4 mg, Oral, ONCE, 1 dose, On Wed01/26/23 at 1100, DO NOT CRUSH OR CHEW, Routine Given 01/26/2023 11:39 AM EDT 0.4 mg tamsulosin (Flomax) capsule 0.8 mg 0.8 mg, Oral, DAILY, First dose (after last modification) on Wed01/27/23 at 0900, Until Discontinued, DO NOT CRUSH OR CHEW, Routine Given 01/27/2023 9:10 AM EDT 0.8 mg documented in this encounter Active and Recently Administered Medications Times are shown in EDT. Scheduled Medication Order 01/25/2023 01/26/2023 01/27/2023 atorvastatin (Lipitor) tablet 80 mg 80 mg, Oral, EVERY EVENING, First dose on Wed01/18/23 at 2200, Until Discontinued, Routine 1741 (Given - Provider: Morena Lopez RN) 1826 (Given - Provider: Morena Lopez RN) capsaicin (Zostrix) 0.025 % cream Topical (Top), 2 TIMES DAILY, First dose on Wed01/20/23 at 2330, Until Discontinued 0835 (Given - Provider: Morena Lopez RN)2100 (Not Given - Provider: Adrienne Calderon RN - Reason: Patient/family refused) 0900 (Not Given - Provider: Morena Lopez RN - Reason: Patient/family refused)2100 (Not Given - Provider: Lisa Vasquez RN - Reason: Patient/family refused) 0900 (Not Given - Provider: Sixto Amato RN - Reason: Patient/family refused) cholecalciferol (Vitamin D3) tablet 5,000 Units 5,000 Units, Oral, DAILY, First dose on Wed01/24/23 at 1600, Until Discontinued, 40 units is equivalent to 1 mcg of cholecalciferol., Routine 827 (Given - Provider: Morena Lopez RN) 08 (Given - Provider: Morena Lopez RN) 0910 (Given - Provider: Sixto Amato, LELAND) finasteride (Proscar) tablet 5 mg 5 mg, Oral, DAILY, First dose on Wed01/20/23 at 1230, Until Discontinued, DO NOT SPLIT, CRUSH OR OPEN, Routine 08 (Given - Provider: Morena Lopez RN) 08 (Given - Provider: Morena Lopez RN) 09 (Given - Provider: Sixto Amato, LELAND) gabapentin (Neurontin) capsule 100 mg 100 mg, Oral, 2 TIMES DAILY, First dose on Wed01/19/23 at 1645, Until Discontinued, Routine 08 (Given - Provider: Morena Lopez RN)2119 (Given - Provider: Adrienne Calderon RN) 827 (Given - Provider: Morena Lopez RN)2101 (Given - Provider: Lisa Vasquez RN) 09 (Given - Provider: Sixto Amato RN) heparin (porcine) (5,000 units/1 mL) subcutaneous injection 7,500 Units 7,500 Units, Subcutaneous, EVERY 8 HOURS SCHEDULED, First dose on Wed01/19/23 at 1400, Until Discontinued, Routine 0646 (Given - Provider: Adrienne Calderon RN)1406 (Given - Provider: Aaron Olson RN)212 (Given - Provider: Adrienne Calderon RN) 0600 (Not Given - Provider: Adrienne Calderon RN - Reason: Patient/family refused - Comment: MD notified)1457 (Given - Provider: Morena Lopez RN)210 (Not Given - Provider: Lisa Vasquez RN - Reason: Patient/family refused) 0600 (Not Given - Provider: Lisa Vasquez RN - Reason: Patient/family refused)1400 (Not Given - Provider: Sixto Amato RN - Reason: Patient/family refused) hydrocortisone 1 % cream Topical (Top), 2 TIMES DAILY, First dose on Wed01/22/23 at 2345, Until Discontinued 0836 (Given - Provider: Morena Lopez RN)2100 (Not Given - Provider: Adrienne Calderon RN - Reason: Patient/family refused) 0900 (Not Given - Provider: Morena Lopez RN - Reason: Patient/family refused)2100 (Not Given - Provider: Lisa Vasquez RN - Reason: Patient/family refused) 0900 (Not Given - Provider: Sixto Amato RN - Reason: Patient/family refused) insulin lispro (HumaLOG;Admelog) (100 unit/mL) subcutaneous injection vial 0-8 Units 0-8 Units, Subcutaneous, 3 TIMES DAILY WITH MEALS, First dose on Wed01/19/23 at 0800, Until Discontinued, MEAL ASSOCIATED Give 1 unit for every 10 grams carbohydrate. Hold if not eating or if BG less than 70 mg/dL., Routine 0800 (Not Given - Provider: Morena Lopez RN - Reason: Patient/family refused)1251 (Given - Provider: Morena Lopez RN)1741 (Given - Provider: Morena Lopez RN) 0800 (Not Given - Provider: Morena Lopez RN - Reason: Patient/family refused - Comment: not eating)1200 (Not Given - Provider: Morena Lopez RN - Reason: Order parameters not met - Comment: pt not eating lunch)1700 (Not Given - Provider: Morena Lopez RN - Reason: Order parameters not met) 0800 (Not Given - Provider: Sixto Amato RN - Reason: See comment - Comment: patient not eating)1200 (Not Given - Provider: Sixto Amato RN - Reason: See comment - Comment: pt not eating) insulin lispro (HumaLOG;Admelog) (100 unit/mL) subcutaneous injection vial 1-4 Units(Linked Group 1) 1-4 Units, Subcutaneous, 3 TIMES DAILY BEFORE MEALS, First dose on Wed01/19/23 at 0730, Until Discontinued, CORRECTION BOLUS [1-4 Units] Sensitive Sliding Scale (BG in mg/dL): Correction factor 40 (1 unit of insulin is expected to drop the glucose 40 mg/dL) BG 160 - 200 Give 1 unit BG 201 - 240 Give 2 units BG 241 - 280 Give 3 units BG greater than 280, give 4 units and recheck BG in 2 hours. - If recheck BG is LESS than 280, give no insulin and resume schedule - If recheck BG is GREATER than 280, give 4 units and repeat BG in 2 hours (no more than 3 times) & call for new insulin orders. DO NOT hold if NPO, unless specifically directed to do so by written order. Per Blood Glucose Monitoring Policy, re-check a BG of > 240 mg/dL in 2 hours., Routine 0730 (Not Given - Provider: Morena Lopez RN - Reason: Order parameters not met)1251 (Given - Provider: Morena Lopez RN)1630 (Not Given - Provider: Morena Lopez RN - Reason: Order parameters not met) 0730 (Not Given - Provider: Morena Lopez RN - Reason: Order parameters not met)1246 (Given - Provider: Morena Lopez RN)1630 (Not Given - Provider: Morena Lopez RN - Reason: Order parameters not met) 0908 (Given - Provider: Sixto Amato, LELAND)1130 (Not Given - Provider: Sixto Amato RN - Reason: Order parameters not met) losartan (Cozaar) tablet 12.5 mg 12.5 mg, Oral, DAILY, First dose (after last modification) on Wed01/24/23 at 1800, Until Discontinued, Routine 08 (Given - Provider: Morena Lopez RN) 0829 (Given - Provider: Morena Lopez RN) 0910 (Given - Provider: Sixto Amato, LELAND) metoprolol succinate XL (Toprol-XL) tablet 25 mg 25 mg, Oral, DAILY, First dose on Wed01/22/23 at 0945, Until Discontinued, DO NOT CRUSH OR OPEN, Routine 08 (Given - Provider: Morena Lopez RN) 0828 (Given - Provider: Morena Lopez RN) 0910 (Given - Provider: Sixto Amato RN) OLANZapine (ZyPREXA) tablet 15 mg 15 mg, Oral, NIGHTLY, First dose on Wed01/19/23 at 2100, Until Discontinued, Routine 2100 (Not Given - Provider: Adrienne Calderon RN - Reason: Patient/family refused) 2100 (Not Given - Provider: Lisa Vasquez RN - Reason: Patient/family refused) sodium chloride 0.9 % (flush) (BD PosiFlush Normal Saline 0.9) flush 5 mL 5 mL, Intravenous, 2 TIMES DAILY, First dose on Wed01/18/23 at 2130, Until Discontinued, Routine 09 (Not Given - Provider: Morena Lopez RN - Reason: Order parameters not met)2121 (Given - Provider: Adrienne Calderon RN) 899 (Not Given - Provider: Morena Lopez RN - Reason: Patient/family refused)2101 (Given - Provider: Lisa Vasquez RN) 912 (Given - Provider: Sixto Amato, LELAND) tamsulosin (Flomax) capsule 0.4 mg (CANCELED) 0.4 mg, Oral, DAILY, First dose on Wed01/20/23 at 1230, Until Discontinued, DO NOT CRUSH OR CHEW, Routine 0828 (Given - Provider: Morena Lopez RN) 08 (Given - Provider: Morena Lopez RN) tamsulosin (Flomax) capsule 0.4 mg (COMPLETED) 0.4 mg, Oral, ONCE, 1 dose, On Wed01/26/23 at 1100, DO NOT CRUSH OR CHEW, Routine 1139 (Given - Provider: Morena Lopez, LELAND) tamsulosin (Flomax) capsule 0.8 mg 0.8 mg, Oral, DAILY, First dose (after last modification) on Wed01/27/23 at 0900, Until Discontinued, DO NOT CRUSH OR CHEW, Routine 09 (Given - Provider: Sixto Amato, LELAND) PRN Medication Order 01/25/2023 01/26/2023 01/27/2023 acetaminophen (Tylenol) tablet 650 mg 650 mg, Oral, EVERY 6 HOURS PRN, Starting on Wed01/20/23 at 2228, Until Wed01/27/23 at 1827, Pain, Headaches, Maximum dose of acetaminophen is 4,000 mg from all sources in 24 hours. When ordered for pain, acetaminophen should be given even when other ordered pain medications are indicated. , Routine dextrose 10% infusion(Linked Group 2) 250 mL, at 1,000 mL/hr, Intravenous, EVERY 30 MIN PRN, Starting on Wed01/18/23 at 2041, Until Wed01/27/23 at 1826, For BG 50-70 mg/dL: Oral treatment preferred: If able to drink, give 120 mL Juice or Regular (not diet) soda OR If NPO, give 15 gram glucose 40% oral gel massaged into buccal mucosa OR if unconscious or uncooperative, give 25 gram (250 mL) Dextrose 10% IV over 15 minutes per protocol OR, if no IV access, 1 mg Glucagon IM. For BG less than 50 mg/dL: Oral treatment preferred: If able to drink, give 240 mL Juice or Regular (not diet) soda OR If NPO, give 30 gram glucose 40% oral gel massaged in buccal mucosa OR if unconscious or uncooperative, give 25 gram (250 mL) Dextrose 10% IV over 15 minutes per protocol OR, if no IV access, 1 mg Glucagon IM. Recheck BG in 30 minutes. May repeat juice/soda, gel, dextrose or glucagon once per episode. For persistent hypoglycemia, consider longer-acting treatment for the duration of the active insulin. glucagon (Glucagen) (1 mg/mL) injection solution 1 mg(Linked Group 2) 1 mg, Intramuscular, EVERY 30 MIN PRN, Starting on Wed01/18/23 at 2041, Until Wed01/27/23 at 1826, Low blood sugar, For BG 50-70 mg/dL: Oral treatment preferred: If able to drink, give 120 mL Juice or Regular (not diet) soda OR If NPO, give 15 gram glucose 40% oral gel massaged into buccal mucosa OR if unconscious or uncooperative, give 25 gram (250 mL) Dextrose 10% IV over 15 minutes per protocol OR, if no IV access, 1 mg Glucagon IM. For BG less than 50 mg/dL: Oral treatment preferred: If able to drink, give 240 mL Juice or Regular (not diet) soda OR If NPO, give 30 gram glucose 40% oral gel massaged in buccal mucosa OR if unconscious or uncooperative, give 25 gram (250 mL) Dextrose 10% IV over 15 minutes per protocol OR, if no IV access, 1 mg Glucagon IM. Recheck BG in 30 minutes. May repeat juice/soda, gel, dextrose or glucagon once per episode. For persistent hypoglycemia, consider longer-acting treatment for the duration of the active insulin., Routine glucose (Glutose) 40% oral geL(Linked Group 2) 15-30 g of glucose, Buccal, EVERY 30 MIN PRN, Starting on Wed01/18/23 at 2041, Until Wed01/27/23 at 1827, Low blood sugar, For BG 50-70 mg/dL: Oral treatment preferred: If able to drink, give 120 mL Juice or Regular (not diet) soda OR If NPO, give 15 gram glucose 40% oral gel massaged into buccal mucosa OR if unconscious or uncooperative, give 25 gram (250 mL) Dextrose 10% IV over 15 minutes per protocol OR, if no IV access, 1 mg Glucagon IM. For BG less than 50 mg/dL: Oral treatment preferred: If able to drink, give 240 mL Juice or Regular (not diet) soda OR If NPO, give 30 gram glucose 40% oral gel massaged in buccal mucosa OR if unconscious or uncooperative, give 25 gram (250 mL) Dextrose 10% IV over 15 minutes per protocol OR, if no IV access, 1 mg Glucagon IM. Recheck BG in 30 minutes. May repeat juice/soda, gel, dextrose or glucagon once per episode. For persistent hypoglycemia, consider longer-acting treatment for the duration of the active insulin. 1 tube of Glutose-15 contains 15 grams of glucose (net weight of tube = 37.5 grams.), Routine lidocaine (Xylocaine) 1% (10 mg/mL) injection 3 mg 3 mg (0.3 mL), Subcutaneous, ONCE PRN, 1 dose, Starting on Wed01/18/23 at 2034, Until Wed01/27/23 at 1827, for discomfort with PIV insertion, Routine nitroGLYcerin (Nitrostat) disintegrating tablet 0.4 mg 0.4 mg, Sublingual, EVERY 5 MIN PRN, Starting on Wed01/18/23 at 2034, Until Wed01/27/23 at 182, Chest pain, May repeat every 5 minutes for a total of three doses. Notify provider if chest pain not relieved with nitroglycerin. Do not administer nitroglycerin if the patient has received or taken phosphodiesterase (PDE-5) inhibitors such as sildenafil, tadalafil or vardenafil within the last 24 to 72 hours., Routine sodium chloride 0.9 % (flush) (BD PosiFlush Normal Saline 0.9) flush 5-20 mL 5-20 mL, Intravenous, EVERY 1 MIN PRN, Starting on Wed01/18/23 at 2035, Until Wed01/27/23 at 1827, flush, Flush pertains to all indwelling lines. Flush per protocol found in the job aid using the link provided on this medication record., Routine Linked Groups Order Group 1: POCT Fingerstick Glucose (CANCELED) Routine, 4 TIMES DAILY BEFORE MEALS & AT BEDTIME, First occurrence on Wed01/18/23 at 2200, Until Specified, Consider choosing FOUR TIMES A DAY BEFORE MEALS AND AT BEDTIME as frequency for: Patients who have good hypoglycemia awareness: -Patients who are eating meals during the day and sleeping at night -Patient who are otherwise stable And insulin lispro (HumaLOG;Admelog) (100 unit/mL) subcutaneous injection vial 1-4 UnitsJump to med 1-4 Units, Subcutaneous, 3 TIMES DAILY BEFORE MEALS, First dose on Wed01/19/23 at 0730, Until Discontinued, CORRECTION BOLUS [1-4 Units] Sensitive Sliding Scale (BG in mg/dL): Correction factor 40 (1 unit of insulin is expected to drop the glucose 40 mg/dL) BG 160 - 200 Give 1 unit BG 201 - 240 Give 2 units BG 241 - 280 Give 3 units BG greater than 280, give 4 units and recheck BG in 2 hours. - If recheck BG is LESS than 280, give no insulin and resume schedule - If recheck BG is GREATER than 280, give 4 units and repeat BG in 2 hours (no more than 3 times) & call for new insulin orders. DO NOT hold if NPO, unless specifically directed to do so by written order. Per Blood Glucose Monitoring Policy, re-check a BG of > 240 mg/dL in 2 hours., Routine Group 2: glucose (Glutose) 40% oral geLJump to med 15-30 g of glucose, Buccal, EVERY 30 MIN PRN, Starting on Wed01/18/23 at 2042, Until Wed01/27/23 at 1827, Low blood sugar, For BG 50-70 mg/dL: Oral treatment preferred: If able to drink, give 120 mL Juice or Regular (not diet) soda OR If NPO, give 15 gram glucose 40% oral gel massaged into buccal mucosa OR if unconscious or uncooperative, give 25 gram (250 mL) Dextrose 10% IV over 15 minutes per protocol OR, if no IV access, 1 mg Glucagon IM. For BG less than 50 mg/dL: Oral treatment preferred: If able to drink, give 240 mL Juice or Regular (not diet) soda OR If NPO, give 30 gram glucose 40% oral gel massaged in buccal mucosa OR if unconscious or uncooperative, give 25 gram (250 mL) Dextrose 10% IV over 15 minutes per protocol OR, if no IV access, 1 mg Glucagon IM. Recheck BG in 30 minutes. May repeat juice/soda, gel, dextrose or glucagon once per episode. For persistent hypoglycemia, consider longer-acting treatment for the duration of the active insulin. 1 tube of Glutose-15 contains 15 grams of glucose (net weight of tube = 37.5 grams.), Routine Or dextrose 10% infusionJump to med 250 mL, at 1,000 mL/hr, Intravenous, EVERY 30 MIN PRN, Starting on Wed01/18/23 at 2042, Until Wed01/27/23 at 1827, For BG 50-70 mg/dL: Oral treatment preferred: If able to drink, give 120 mL Juice or Regular (not diet) soda OR If NPO, give 15 gram glucose 40% oral gel massaged into buccal mucosa OR if unconscious or uncooperative, give 25 gram (250 mL) Dextrose 10% IV over 15 minutes per protocol OR, if no IV access, 1 mg Glucagon IM. For BG less than 50 mg/dL: Oral treatment preferred: If able to drink, give 240 mL Juice or Regular (not diet) soda OR If NPO, give 30 gram glucose 40% oral gel massaged in buccal mucosa OR if unconscious or uncooperative, give 25 gram (250 mL) Dextrose 10% IV over 15 minutes per protocol OR, if no IV access, 1 mg Glucagon IM. Recheck BG in 30 minutes. May repeat juice/soda, gel, dextrose or glucagon once per episode. For persistent hypoglycemia, consider longer-acting treatment for the duration of the active insulin. Or glucagon (Glucagen) (1 mg/mL) injection solution 1 mgJump to med 1 mg, Intramuscular, EVERY 30 MIN PRN, Starting on Wed01/18/23 at 2042, Until Wed01/27/23 at 1827, Low blood sugar, For BG 50-70 mg/dL: Oral treatment preferred: If able to drink, give 120 mL Juice or Regular (not diet) soda OR If NPO, give 15 gram glucose 40% oral gel massaged into buccal mucosa OR if unconscious or uncooperative, give 25 gram (250 mL) Dextrose 10% IV over 15 minutes per protocol OR, if no IV access, 1 mg Glucagon IM. For BG less than 50 mg/dL: Oral treatment preferred: If able to drink, give 240 mL Juice or Regular (not diet) soda OR If NPO, give 30 gram glucose 40% oral gel massaged in buccal mucosa OR if unconscious or uncooperative, give 25 gram (250 mL) Dextrose 10% IV over 15 minutes per protocol OR, if no IV access, 1 mg Glucagon IM. Recheck BG in 30 minutes. May repeat juice/soda, gel, dextrose or glucagon once per episode. For persistent hypoglycemia, consider longer-acting treatment for the duration of the active insulin., Routine documented in this encounter Care Teams Signal Constructor Relationship Specialty Start Date End Date Reinier Arceo PA [address] [place] [address] PCP - General Internal Medicine 01/18/23 documented as of this encounter
--- OUTSIDE RECORDS SUMMARY | 2024-01-19 15:31 | XMS_ITS | Encounter Summary ---
Author Organization [facility] Address [address] [place] [address] Care Team Providers Care Assistant Shift Supervisor Name Role Phone Casimiro Perez MD Primary Care Provider Nahed montes de oca Encounter Details Date Type Department Care Team (Late st Contact Info) Description 09/02/2019 Lab Requisition [facility] Pathology & Laboratory Medicine - [facility] [address] [place] [address] Unknown, Provider, Social History Tobacco Use Types Packs/Day Years Used Date Smoking Tobacco: Never Assessed Sex and Gender Information Value Date Recorded Sex Assigned at Not on file Gender Identity Not on file Sexual Orientation Not on file documented as of this encounter Plan of Treatment Not on file documented as of this encounter Procedures Procedure Name Priority Date/Time Associated Diagnosis Comments HIV 1/2 ANTIGEN AND ANTIBODY, 4TH GENERATION Routine 09/01/2019 11:51 EST documented in this encounter Results * HIV 1/2 ANTIGEN AND ANTIBODY, 4TH GENERATION (09/01/2019 11:51 EST) HIV 1 and 2 Antibody/p24 Antigen, 4th Generation Negative Negative 09/04/2019 11:34 EDT [facility] Comment: If acute HIV-1 infection is suspected in a high risk ??patient, submit plasma specimen for HIV-1 RNA quantitation test. Fourth Generation assay performed on the Siemens Centaur. Blood VENOUS BLOOD / Unknown 09/01/2019 11:51 EST 09/03/2019 16:22 EDT Provider Unknown IMMUNOLOGY AND SEROL OGMicki ORDERABLES [facility] [address] [place] [address] documented in this encounter Visit Diagnoses Not on filedocumented in this encounter Care Teams Assistant Shift Supervisor Relationship Specialty Start Date End Date Casimiro Perez MD PCP - General 05/03/15 documented as of this encounter
--- OUTSIDE RECORDS SUMMARY | 2024-01-19 15:31 | XMS_ITS | Referral Summary ---
Author Organization [facility] Address [address] [place] [address] Care Team Providers Care Corporate Counselor Name Role Phone Casimiro Perez MD Primary Care Provider Nahed montes de oca Social History Tobacco Use Types Packs/Day Years Used Date Smoking Tobacco: Never Assessed Sex and Gender Information Value Date Recorded Sex Assigned at Not on file Gender Identity Not on file Sexual Orientation Not on file Plan of Treatment Not on file Care Teams Corporate Counselor Relationship Specialty Start Date End Date Casimiro Perez MD PCP - General 05/03/15
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
--- OUTSIDE RECORDS SUMMARY | 2024-01-19 15:31 | XMS_ITS | Encounter Summary ---
Author Organization [facility] [place] [address] Care Team Providers Care Field Party Manager Name Role Phone Reinier Arceo Primary Care Provider [phone] Encounter Details Date Type Department Care Team (Late st Contact Info) Description 01/18/2023 External [place] [address] Social History Tobacco Use Types Packs/Day Years Used Date Smoking Tobacco: Never Alcohol Use Standard Drinks/Week Comments Never 0 (1 standard drink = 0.6 oz pur e alcohol) [facility] Inpatient Questions Answer Date Recorded Does Anyone [...] 10:00 AM EDT Procedure [place] [address] Austin Simon MD [facility] [place] [address] Lindy Box APRN [facility] [place] [address] documented as of this encounter Procedures Procedure Name Priority Date/Time Associated Diagnosis Comments ECG SCAN Routine 01/18/2023 1:02 PM EDT documented in this encounter Results * Scan Doc: ECG (01/18/2023 1:02 PM EDT) Historical Provider MD WEBER MGR SCAN EX T ORDR/RSLT documented in this encounter Visit Diagnoses Not on filedocumented in this encounter Care Teams Field Party Manager Relationship Specialty Start Date End Date Reinier Arceo PA [address] [place] [address] PCP - General Internal Medicine 01/18/23 documented as of this encounter
--- OUTSIDE RECORDS SUMMARY | 2024-01-19 15:31 | XMS_ITS | Encounter Summary ---
Author Organization [facility] Address [address] [place] [address] Care Team Providers Care Survival Specialist Name Role Phone Casimiro Perez MD Primary Care Provider Nahed montes de oca Encounter Details Date Type Department Care Team (Late st Contact Info) Description 09/02/2019 Lab Requisition [facility] Pathology & Laboratory Medicine - [facility] [address] [place] [address] Unknown, Provider, Social History Tobacco Use Types Packs/Day Years Used Date Smoking Tobacco: Never Assessed Sex and Gender Information Value Date Recorded Sex Assigned at Not on file Gender Identity Not on file Sexual Orientation Not on file documented as of this encounter Plan of Treatment Not on file documented as of this encounter Procedures Procedure Name Priority Date/Time Associated Diagnosis Comments CELIAC DISEASE PANEL Routine 09/01/2019 11:51 EST documented in this encounter Results * CELIAC DISEASE PANEL (09/01/2019 11:51 EST) Tissue Transglutaminase Antibody IGA <1.2 <4.0 U/mL 09/04/2019 14:27 EDT [facility] Comment: A negative result may be due to IgA deficiency and does not rule out celiac disease. ? Negative: ??<4.0 U/mL ? Weak Positive: ??4.0 - 10.0 U/mL ? Positive: ??>10.0 U/mL Results were obtained with the Mind PaletteA Lite R h-tTG IgA WENDY assay on the Dynex DSX. IgA 279 85 - 499 mg/dL 09/04/2019 14:27 EDT [facility] Celiac Disease Interpretation Negative Serology. Celiac disease unlikely. Approximately 10% of patients with celiac disease are seronegative. Patients who are already adhering to a gluten-free diet may also be seronegative. If celiac disease is highly clinically suspected, referral to gastroenterology for additional evaluation is recommended. 09/04/2019 14:27 EDT [facility] Blood VENOUS BLOOD / Unknown 09/01/2019 11:51 EST 09/03/2019 16:21 EDT Provider Unknown IMMUNOLOGY AND SEROL ROSSI ORDERABLES [facility] [address] [place] [address] documented in this encounter Visit Diagnoses Not on filedocumented in this encounter Care Teams Survival Specialist Relationship Specialty Start Date End Date Casimiro Perez MD PCP - General 05/03/15 documented as of this encounter
--- OUTSIDE RECORDS SUMMARY | 2024-01-19 15:31 | XMS_ITS | Encounter Summary ---
Author Organization [facility] [place] [address] Care Team Providers Care Design/Animation Instructor Name Role Phone Von Miles MD Primary Care Provider [phone] Reason for Visit * Reason Comments Follow-up Encounter Details Date Type Department Care Team (Late st Contact Info) Description 02/06/2014 2:45 PM EDT Office Visit Dermatology at [address] [id number] Sixto Doty MD [address] [place] [address] [place] [address] Neurodermatitis (Primary Dx) Social History Tobacco Use Types Packs/Day Years Used Date Smoking Tobacco: Never Sex and Gender Information Value Date Recorded Sex Assigned at Not on file Gender Identity Not on file Sexual Orientation Not on file documented as of this encounter Patient Instructions * Patient Instructions* Sarai Acosta LPN - 02/06/2014 3:18 PM EDT [facility] Dermatitis: After Your Visit Your Care Instructions Dermatitis is the general name used for any rash or inflammation of the skin. Different kinds of dermatitis cause different kinds of rashes. Common causes of a rash include new medicines, plants (such as poison oak or poison luz), heat, stress, and allergies to soaps, cosmetics, detergents, chemicals, and fabrics. Certain illnesses can also cause a rash. Unless caused by an infection, these rashes cannot be spread from person to person. How long your rash will last depends on what caused it. Rashes may last a few days or months. Follow-up care is a wilkerson part of your treatment and safety. Be sure to make and go to all appointments, and call your doctor if you are having problems. It???s also a good idea to know your test results and keep a list of the medicines you take. How can you care for yourself at home? ?? Do not scratch. Cut your nails short, and file them smooth. Or you may wear gloves if this helpskeep you from scratching. ?? If you use soap on the rash, choose a gentle soap and use as little as possible. ?? Put cold, wet cloths on the rash to reduce itching. ?? Keep cool, and stay out of the sun. Heat makes itching worse. ?? Leave the rash open to the air when you can. If your clothes have to cover the rash, wear cottonor silk. ?? If the rash itches, use hydrocortisone cream. Follow the directions on the label. Calamine lotion may help for plant rashes. ?? Try an hqgz-hth-qgxglgx antihistamine such as diphenhydramine (Benadryl) or chlorpheniramine (Chlor-Trimeton). Follow the directions on the label. ?? If you get a prescription steroid cream or pills, use them as directed. When should you call for help? Call your doctor now or seek immediate medical care if: ?? You have signs of infection, such as: ?? Increased pain, swelling, warmth, or redness. ?? Red streaks leading from the rash. ?? Pus draining from the rash. ?? A fever. ?? You have joint pain along with the rash. ?? The rash gets worse or spreads to other parts of your body. Watch closely for changes in your health, and be sure to contact your doctor if: ?? You do not get better after 2 to 3 weeks of home treatment. Where can you learn more? Visit our health information library at [email or web address] You can also view health information on [employer], your personal patient account. Log in or sign up today. Enter F270 in the search box to learn more about Dermatitis: After Your Visit. ?? [phone] [employer]. Care instructions adapted under license by [facility]. This care instruction is for use with your licensed healthcare professional. If you have questions about a medical condition or this instruction, always ask your healthcare professional. [employer] disclaims any warranty or liability for your use of this information. Content Version: 9.9.444517; Last Revised: November 11, 2012 documented in this encounter Progress Notes * Sixto Doty MD - 02/06/2014 3:32 PM EDT Problem: Followup of neurodermatitis. Miguel follows up and states that his rash is no better. Physical examination reveals a pleasant 58-year-old gentleman who in fact does have fewer excoriations and much smaller erythematous papules over the dorsal arms. He still has some over the left and right chest, shoulders, and a little bit on the anterior shins. He continues to have some patchy psoriasiform dermatitic changes over the palmar hands. Assessment and Plan: 1. Neurodermatitis. a. Continue triamcinolone cream using b.i.d. to affected areas. b. Continue taking hydroxyzine 25 mg in the morning. c. Begin Doxepin 25 mg one to two p.o. q.h.s., #60 dispensed with one refill. Return to clinic in another month for repeat check. d. Again, I validated the patient's concern that stress regarding his mother's situation and difficulty of funding her monthly [place] bills is affecting his rash and his itching. Note: Discussed approaches to try and deal with the underlying problem of the financial stressors. COPY: Reina Alcala A.P.R.N. documented in this encounter Plan of Treatment Upcoming Encounters Date Type Department Care Team (Late st Contact Info) Description 02/03/2024 10:00 AM EDT Procedure [place] [address] Austin Simon MD [facility] [place] [address] Lindy Box APRN [facility] [place] [address] documented as of this encounter Visit Diagnoses Diagnosis Neurodermatitis- Primary Lichenification and lichen simplex chronicus documented in this encounter Care Teams Design/Animation Instructor Relationship Specialty Start Date End Date Von Miles MD [address] [place] [address] [place] [address] PCP - General 12/04/13 04/17/14 documented as of this encounter
--- OUTSIDE RECORDS SUMMARY | 2024-01-19 15:31 | XMS_ITS | Encounter Summary ---
Author Organization [facility] [place] [address] Care Team Providers Care Tool Mechanic Name Role Phone Reinier Arceo Primary Care Provider [phone] Encounter Details Date Type Department Care Team (Late st Contact Info) Description 01/18/2023 [place] [phone] Unknown None Social History Tobacco Use Types Packs/Day Years Used Date Smoking Tobacco: Never Alcohol Use Standard Drinks/Week Comments Never 0 (1 standard drink = 0.6 oz pur e alcohol) [facility] Inpatient Questions Answer Date Recorded Does Anyone [...] 10:00 AM EDT Procedure [place] [phone] Austin Simon MD [facility] [place] [address] Lindy Box APRN [facility] [place] [place] [address] documented as of this encounter Procedures Procedure Name Priority Date/Time Associated Diagnosis Comments ECHOCARDIOGRAM TRANSTHORACIC Routine 01/18/2023 5:58 PM EDT documented in this encounter Results * Echocardiogram Transthoracic (01/18/2023 5:58 PM EDT) Anatomical Region Laterality Modality Cardiac Other 01/18/2023 5:58 PM EDT Narrative 01/19/2023 8:45 AM EDT ? Echocardiogram Report Name: KIA SANTIAGO ? Study Date: 01/18/2023 05:58 PMBP: 145/90 mmHg ? Patient Location: [facility] ? HR: 69 : 1955 Age: 67 yrs Gender: Male Ordering Physician: Tanya Delcid Referring Physician: Tanya Delcid Performed By: Heron Santacruz Reason For Study: Systolic heart failure History: heart failure Interpreting Fellow: Heron Santacruz. Exam Location: [facility]. Interpretation Summary -Limited echocardiogram performed by overnight fellow to [...] -There is no prior echocardiogram for comparison. Procedure Limited - 44261. Satisfactory quality. There is normal sinus rhythm. Left Ventricle Left ventricle is mildly dilated. Wall thickness is normal. Left ventricular systolic function is severely reduced. Left ventricular ejection fraction is estimated visually at 25%. Severe global hypokinesis. Right Ventricle The right ventricle is of normal size. Right ventricular function is probably normal. Left Atrium The left atrium is probably normal. Right Atrium The right atrium is normal. Aortic Valve The aortic valve is tricuspid. The aortic valve is mildly thickened. The aortic valve is mildly calcified. Doppler assessment of the aortic valve consistent with mild aortic stenosis although visually the valve does not appear stenotic. Recommend formal echocardiogram for proper assessment. There is trace aortic regurgitation. Mitral Valve The mitral valve is structurally normal. There is mitral annular calcification. There is moderate mitral regurgitation. Tricuspid Valve The tricuspid valve is not well visualized. There is trace tricuspid regurgitation. Pulmonic Valve The pulmonic valve is not well visualized. There is no pulmonic valve regurgitation. Great Arteries The aortic root is not well visualized. Venous Inferior vena cava is normal in size. Inferior vena cava collapse greater than 50% with respiration. Pericardium/Pleural The pericardium appears normal. There is a trivial pericardial effusion. Hemodynamics Pulmonary artery hypertension could not be assessed due to inadequate tricuspid regurgitation jet. The estimated right atrial pressure is 3mmHg. Left ventricular filling pressure is increased. ? 2D Measurements ? Volumes ?IVSd: 0.92 cm ?RA A4Cs_phl: 19.0 cm2 ?LVIDd: 5.5 cm ?SV(LVOT): 33.8 ml ?LVPWd: 0.96 cm ?LV mass(C)d: 197.5 grams ?LVOT diam: 2.0 cm Doppler LV V1 VTI: 11.1 cm Ao V2 VTI: 23.6 cm Ao Max: 136.4 cm/sec Ao valve max: 7.4 mmHg Ao valve mean: 4.6 mmHg MV E max jose: 130.0 cm/sec MV A max jose: 93.8 cm/sec MV E/A: 1.4 Lat Peak E' Jose: 5.9 cm/sec E/ e' (lat): 22.1 Med Peak E' Jose: 3.8 cm/sec E/e' (med): 34.1 E/e' Average: 28.1 ROSEANN(I,D): 1.4 cm2 Dimensionless index Aov: 0.47 I ?WMSI = 2.00 ? % Normal = 0 ?Segments ??Size X - Cannot ?? 1 - Normal ?? 2 - ? 3 - Akinetic 4 - ?1-2 ? small Interpret ? Hypokinetic ?Dyskinetic ?? 3-5 ? moderate 5 - ? 6-14 ?large Aneurysmal ?15-16 ?? diffuse Procedure Note Arnie Horowitz MD - 01/19/2023 Echocardiogram Report Name: SANTIAGO SANCHEZ Study Date: 305:58 PMBP: 145/90 mmHg Patient Location: [facility] HR: 69 : 1955 Age: 67 yrs Gender: Male Ordering Physician: Tanya Delcid Referring Physician: Tanya Delcid Performed By: Heron [place] Reason For Study: Systolic heart failure History: heart failure Interpreting Fellow: Heron Santacruz. Exam Location: [facility]. Interpretation Summary -Limited echocardiogram performed by overnight fellow to assessbiventricular function. -The left ventricle is mildly dilated with normal wall thickness. Theleft ventricular systolic function is severely reduced with visually estimatedejection fraction of 25%. There is global hypokinesis. There is elevated leftventricular filling pressures. -The right ventricle appears normal in size with probably normalsystolic function. Pulmonary artery hypertension could not be assessed due toinadequate tricuspid regurgitation jet. The estimated right atrial pressure [id number]. -Normal biatrial size. -Doppler assessment of the aortic valve consistent with mild aorticstenosis although visually the valve does not appear stenotic. Recommend formal echocardiogram for proper assessment. -There is no prior echocardiogram for comparison. Procedure Limited - [id number]. Satisfactory quality. There is normal sinus rhythm. Left Ventricle Left ventricle is mildly dilated. Wall thickness is normal. Leftventricular systolic function is severely reduced. Left ventricular ejection fractionis estimated visually at 25%. Severe global hypokinesis. Right Ventricle The right ventricle is of normal size. Right ventricular function isprobably normal. Left Atrium The left atrium is probably normal. Right Atrium The right atrium is normal. Aortic Valve The aortic valve is tricuspid. The aortic valve is mildly thickened. Theaortic valve is mildly calcified. Doppler assessment of the aortic valveconsistent with mild aortic stenosis although visually the valve does not appearstenotic. Recommend formal echocardiogram for proper assessment. There is traceaortic regurgitation. Mitral Valve The mitral valve is structurally normal. There is mitral annularcalcification. There is moderate mitral regurgitation. Tricuspid Valve The tricuspid valve is not well visualized. There is trace tricuspid regurgitation. Pulmonic Valve The pulmonic valve is not well visualized. There is no pulmonic valve regurgitation. Great Arteries The aortic root is not well visualized. Venous Inferior vena cava is normal in size. Inferior vena cava collapse greaterthan 50% with respiration. Pericardium/Pleural The pericardium appears normal. There is a trivial pericardial effusion. Hemodynamics Pulmonary artery hypertension could not be assessed due to inadequatetricuspid regurgitation jet. The estimated right atrial pressure is 3mmHg. Leftventricular filling pressure is increased. 2D Measurements Volumes IVSd: 0.92 cm RA A4Cs_phl: 19.0cm2 LVIDd: 5.5 cm SV(LVOT): 33.8ml LVPWd: 0.96 cm LV mass(C)d: 197.5 grams LVOT diam: 2.0 cm Doppler LV V1 VTI: 11.1 cm Ao V2 VTI: 23.6 cm Ao Max: 136.4 cm/sec Ao valve max: 7.4 mmHg Ao valve mean: 4.6 mmHg MV E max jose: 130.0 cm/sec MV A max jose: 93.8 cm/sec MV E/A: 1.4 Lat Peak E' Ojse: 5.9 cm/sec E/ e' (lat): 22.1 Med Peak E' Jose: 3.8 cm/sec E/e' (med): 34.1 E/e' Average: 28.1 ROSEANN(I,D): 1.4 cm2 Dimensionless index Aov: 0.47 I WMSI = 2.00 % Normal = 0 SegmentsSize X - Cannot 1 - Normal 2 - 3 - Akinetic 4 - 1-2small Interpret Hypokinetic Dyskinetic 3-5moderate 5 - 6-14large Aneurysmal 15-16diffuse Unknown ECHO ORDERABLES documented in this encounter Visit Diagnoses Not on filedocumented in this encounter Care Teams Tool Mechanic Relationship Specialty Start Date End Date Reinier Arceo PA [address] [place] [address] PCP - General Internal Medicine 01/18/23 documented as of this encounter
--- OUTSIDE RECORDS SUMMARY | 2024-01-19 15:31 | XMS_ITS | Encounter Summary ---
Author Organization [facility] [place] [address] Care Team Providers Care Audiovisual Tech Name Role Phone Reina Alcala APRN Primary Care Provider [phone] Reason for Visit * Reason Comments Psoriasis Encounter Details Date Type Department Care Team (Late st Contact Info) Description 10/09/2014 1:15 PM EDT Office Visit Dermatology at [address] [place] [address] Sixto Doty MD [address] [facility] [place] [address] Neurodermatitis Discharge Disposition: Home Social History Tobacco Use Types Packs/Day Years Used Date Smoking Tobacco: Never Sex and Gender Information Value Date Recorded Sex Assigned at Not on file Gender Identity Not on file Sexual Orientation Not on file documented as of this encounter Patient Instructions * Patient Instructions* Marilyn Ornelas LPN - 10/09/2014 1:09 PM EDT Images from the original note were not included. [facility] Psoriasis: After Your Visit Your Care Instructions Psoriasis (say czs-VY-rf-ruel) is a long-term skin problem that causes [...] still damp. This seals in moisture. Use sggh-clr-vtnwnkh products that your doctor suggests. These may [...] more? Visit our health information library at [email or web address] You can also view health information on [employer], your personal patient account. Log in or sign up today. Enter U759 in the search box to learn more about Psoriasis: After Your Visit. ?? [id number] [employer]. Care instructions adapted under license by [facility]. This care instruction is for use with your licensed healthcare professional. If you have questions about a medical condition or this instruction, always ask your healthcare professional. [employer] disclaims any warranty or liability for your use of this information. Content Version: 10.3.564358; Current as of: September 06, 2013 documented in this encounter Progress Notes * Sixto Doty MD - 10/09/2014 1:29 PM EDT Problem: Followup neurodermatitis. Miguel follows up and is doing better. He is just using triamcinolone cream, not feeling that the hydroxyzine really helped, and he has stopped using CeraVe. Miguel lost his mother August 24, 2014. Physical examination reveals why he still has a few scabbed, healing excoriations on the legs. The other sites-clearly the vast majority of the prior sites-are just erythematous macules and have not been recently manipulated. These are postinflammatory macules at sites of prior inflammation. They are present most prominently on his shins and thighs, very few to almost nothing on his back, a few on the abdomen, and a few on the upper arms. Assessment and Plan: Neurodermatitis, slowly improving. a. The patient today seems to be more upbeat with a more positive affect and outlook, although still dealing with various stressors in his life. b. May continue with triamcinolone 0.1% cream, applying on a daily b.i.d. basis, but try to taper this as much as possible. c. I encouraged him to again use CeraVe cream as an emollient. d. Return to clinic in another three months for repeat check. COPY: Reina Alcala A.P.R.N. documented in this encounter Plan of Treatment Upcoming Encounters Date Type Department Care Team (Late st Contact Info) Description 02/03/2024 10:00 AM EDT [place] [address] Austin Simon MD [facility] [place] [address] Lindy Box APRN [facility] [place] [address] documented as of this encounter Visit Diagnoses Diagnosis Neurodermatitis Lichenification and lichen simplex chronicus documented in this encounter Care Teams Audiovisual Tech Relationship Specialty Start Date End Date Reina Alcala APRN [address] [place] [address] [place] [address] PCP - General 04/18/14 01/17/23 documented as of this encounter
--- OUTSIDE RECORDS SUMMARY | 2024-01-19 15:31 | XMS_ITS | Encounter Summary ---
Author Organization [facility] [place] [address] Care Team Providers Care Project Construction Assistant Manager Name Role Phone Reina Alcala APRN Primary Care Provider [phone] Reason for Visit * Reason Comments Follow-up Encounter Details Date Type Department Care Team (Late st Contact Info) Description 01/15/2015 1:45 PM EDT Office Visit Dermatology at [address] [place] [address] Sixto Doty MD [address] [facility] [place] [address] Self-excoriation disorder Discharge Disposition: Home Social History Tobacco Use Types Packs/Day Years Used Date Smoking Tobacco: Never Sex and Gender Information Value Date Recorded Sex Assigned at Not on file Gender Identity Not on file Sexual Orientation Not on file documented as of this encounter Patient Instructions * Patient Instructions* Marilyn Ornelas LPN - 01/15/2015 1:43 PM EDT Images from the original note were not included. [facility] Dermatitis: After Your Visit Your Care Instructions [...] help for plant rashes. ?? Try an htpp-hhw-sncdktq antihistamine such as diphenhydramine (Benadryl) or chlorpheniramine [...] more? Visit our health information library at [email or web address] You can also view health information on [employer], your personal patient account. Log in or sign up today. Enter F270 in the search box to learn more about Dermatitis: After Your Visit. ?? [id number] [employer]. Care instructions adapted under license by [facility]. This care instruction is for use with your licensed healthcare professional. If you have questions about a medical condition or this instruction, always ask your healthcare professional. [employer], [employer] disclaims any warranty or liability for your use of this information. Content Version: 10.4.519505; Current as of: September 06, 2013 documented in this encounter Progress Notes * Sixto Doty MD - 01/15/2015 2:21 PM EDT Problem: Followup neurodermatitis. Miguel follows up and is maintaining a pretty stable level of control over the neurodermatitis on the lateral thighs and calves bilaterally. His upper torso is clear. His arms and legs really are just about clear, as are his back and chest. Stress remains in the forms of deciding where he is going to be moving his trailer to once his lease on the current land runs out in four and a half years. Also he is dealing with whether he has responsibility or not to mow the grass behind the trailer. Physical examination confirms that he has postinflammatory macules at sites of prior inflammation on multiple sites on the lateral thighs bilaterally as well as on his lateral calves. He has a few on the medial aspects of his legs. Assessment and Plan: Neurodermatitis, stable. a. The patient will continue to work with his case management coordinator on finding a solution to his above problem. b. May continue with the triamcinolone 0.1% cream, applying on a b.i.d. basis to affected areas. c. Keep skin well moisturized. In the fall again resume CeraVe cream. d. Return to clinic in another three months for repeat check. COPY: Reina Alcala A.P.R.N. documented in this encounter Plan of Treatment Upcoming Encounters Date Type Department Care Team (Late st Contact Info) Description 02/03/2024 10:00 AM EDT [place] [address] Austin Simon MD [facility] [place] [address] Lindy Box APRN [facility] [place] [address] documented as of this encounter Visit Diagnoses Diagnosis Self-excoriation disorder documented in this encounter Care Teams Project Construction Assistant Manager Relationship Specialty Start Date End Date Reina Alcala APRN [address] [place] [address] [place] [address] PCP - General 04/18/14 01/17/23 documented as of this encounter
--- OUTSIDE RECORDS SUMMARY | 2024-01-19 15:31 | XMS_ITS | Encounter Summary ---
Author Organization [facility] [place] [address] Care Team Providers Care Grip Name Role Phone Reina Alcala APRN Primary Care Provider [phone] Reason for Visit * Reason Comments Follow-up Encounter Details Date Type Department Care Team ([facility] st Contact Info) Description 04/23/2015 1:45 PM EDT Office Visit Dermatology at [address] [place] [address] Sixto Doty MD [address] [facility] [place] [address] Self-excoriation disorder Social History Tobacco Use Types Packs/Day Years Used Date Smoking Tobacco: Never Sex and Gender Information Value Date Recorded Sex Assigned at Not on file Gender Identity Not on file Sexual Orientation Not on file documented as of this encounter Patient Instructions * Patient Instructions* Marilyn Ornelas LPN - 04/23/2015 2:11 PM EDT [facility] Actinic Keratosis: After Your Visit Your Care Instructions Actinic keratosis is a skin growth caused by sun damage. It can turn into skin cancer, but this isn't common. Actinic keratoses, also called solar keratoses, are small red, brown, or skin-colored scaly patches. They are most common on the face, neck, hands, and forearms. Your doctor can remove these growths by freezing or scraping them off or by putting medicines on them. Follow-up care is a wilkerson part of your treatment and safety. Be sure to make and go to all appointments, and call your doctor if you are having problems. It's also a good idea to know your test resultsand keep a list of the medicines you take. How can you care for yourself at home? ?? If your doctor removes the growth, clean the area with soap and water 2 times a day unless your doctor gives you different instructions. Don't use hydrogen peroxide or alcohol, which can slow healing. ?? You may cover the wound with a thin layer of petroleum jelly, such as Vaseline, and a nonstick bandage. To prevent actinic keratosis ?? Always wear sunscreen on exposed skin. Make sure the sunscreen blocks ultraviolet rays (both UVAand UVB) and has a sun protection factor (SPF) of at least 15. Use it every day, even when it is cloudy. Some doctors may recommend a higher SPF, such as 30. ?? Wear long sleeves, a hat, and pants if you are going to be outdoors for a long time. ?? Avoid the sun between 10 a.m. and 4 p.m., the peak time for UV rays. ?? Do not use tanning booths or sunlamps. When should you call for help? Watch closely for changes in your health, and be sure to contact your doctor if: ?? The areas that were treated are red, drain pus, or have red streaks leading from them. ?? You see other growths that do not go away. ?? You do not get better as expected. Where can you learn more? Visit our health information library at [email or web address] You can also view health information on [employer], your personal patient account. Log in or sign up today. Enter L364 in the search box to learn more about Actinic Keratosis: After Your Visit. ?? [id number] [employer]. Care instructions adapted under license by [facility]. This care instruction is for use with your licensed healthcare professional. If you have questions about a medical condition or this instruction, always ask your healthcare professional. [employer] disclaims any warranty or liability for your use of this information. Content Version: 10.4.044254; Current as of: January 25, 2014 documented in this encounter Progress Notes * Sixto Doty MD - 04/23/2015 2:25 PM EDT Problem: Followup neurodermatitis. Miguel follows up and is doing better. He continues to use the triamcinolone cream, usually once a day, and finds that his arms and upper chest and shoulders are pretty much clear. He has a little bit still on his legs. He is still dealing with stress at home. Not sure what is going to happen in four years when he has to move the trailer from its current location on his landlord's land. Physical examination reveals that he has some postinflammatory macules at sites of prior inflammation on multiple sites on the lateral thighs but very, very few active lesions there. His arms and his shoulders and chest and back are really clear now. He has no significant involvement there. Assessment and Plan: Neurodermatitis, much improved. a. Do not use triamcinolone any longer for arms, upper chest, and back, but may still use sparingly but only to active areas, not postinflammatory macules, on thighs and legs. b. Continue to keep the skin well moisturized. Use CeraVe cream in the winter. c. I do think that stress level plays a big role in the flares of his neurodermatitis, and with stress levels now being relatively low his skin is better. I would like to see him back now on a p.r.n. basis. He will contact me if he has any flares of dermatitis or questions or concerns. We had called in 80 grams or triamcinolone with three refills to his local pharmacy. Return to clinic here p.r.n. COPY: Makenna [email or web address] documented in this encounter Plan of Treatment Upcoming Encounters Date Type Department Care Team (Late st Contact Info) Description 02/03/2024 10:00 AM EDT Procedure [place] [address] Austin Simon MD [facility] [place] [address] Lindy Box, HAND HIDE STRETCHER [facility] [place] [address] documented as of this encounter Visit Diagnoses Diagnosis Self-excoriation disorder documented in this encounter Care Teams Grip Relationship Specialty Start Date End Date Reina Alcala APRN [address] [place] [address] [place] [address] PCP - General 04/18/14 01/17/23 documented as of this encounter
--- OUTSIDE RECORDS SUMMARY | 2024-01-19 15:31 | XMS_ITS | Encounter Summary ---
Author Organization [facility] [place] [address] Care Team Providers Care Test Eng Name Role Phone Reina Alcala APRN Primary Care Provider [phone] Reason for Visit * Reason Comments Follow-up Encounter Details Date Type Department Care Team (Late st Contact Info) Description 07/03/2014 1:00 PM EST Office Visit Dermatology at [address] [address] Sixto Doty MD [address] [facility] [place] [address] Neurodermatitis Discharge Disposition: Home Social History Tobacco Use Types Packs/Day Years Used Date Smoking Tobacco: Never Sex and Gender Information Value Date Recorded Sex Assigned at Not on file Gender Identity Not on file Sexual Orientation Not on file documented as of this encounter Progress Notes * Sixto Doty MD - 07/03/2014 1:21 PM EST Problem: Followup neurodermatitis. Miguel follows up and is doing better. He did not fill the pimozide, as it was going to cost $15, and he did not have that. He has continued with using triamcinolone cream, hydroxyzine, and CeraVe cream. Physical examination today reveals that, while he still has a few active excoriations across the abdomen and upper back, really the vast majority of these sites are healing. There are postinflammatory macules at sites of prior inflammation. Assessment and Plan: Neurodermatitis, improving. a. The patient again outlines for me today major stressors in his life, and he states that in addition to financial issues of funding his mother's fpc, he has credit card debt that is five months past due, and he continues to be concerned that his neighbors are trying to get into his trailer. b. I recommended he continue triamcinolone 0.1% cream, applying daily b.i.d. to affected areas; 80 grams with three refills given. c. Resume hydroxyzine 25 mg one or two p.o. at bedtime; #60 were given with two refills on 06/15/14. d. Begin CeraVe cream as an emollient. e. Return to clinic in another three months for repeat check. f. The patient is working with his rn social work to try to find gainful employment; this is an ongoing process he states. COPY: Reina Alcala A.P.R.N. documented in this encounter Plan of Treatment Upcoming Encounters Date Type Department Care Team (Late st Contact Info) Description 02/03/2024 10:00 AM EDT Procedure [place] [address] Austin Simon MD [facility] [place] [address] Lindy Box APRN [facility] [place] [address] documented as of this encounter Visit Diagnoses Diagnosis Neurodermatitis Lichenification and lichen simplex chronicus documented in this encounter Care Teams Test Eng Relationship Specialty Start Date End Date Reina Alcala APRN [address] [place] [address] [place] [address] PCP - General 04/18/14 01/17/23 documented as of this encounter
--- OUTSIDE RECORDS SUMMARY | 2024-01-19 15:31 | XMS_ITS | Encounter Summary ---
Author Organization [facility] Address [facility] [place] [address] Care Team Providers Care Assistant Therapy Aide Name Role Phone Reina Alcala SONNY Primary Care Provider [phone] Encounter Details Date Type Department Care Team (Latest Contact Info) Description 08/25/2019 1:40 PM EST - 08/25/2019 11:59 PM [facility] Hospital Encounter Mobile Echocardiography [facility] [place] [address] Dianne Pace APRN [facility] [address] [place] [address] Heart failure, unspecified HF chronicity, unspecified heart failure type Discharge Disposition: Home Social History Tobacco Use [...] mg tablet Twice a day 08/23/2019 02/24/2023 indomethacin (Indocin) 50 mg capsule Twice a day 08/23/2019 02/24/2023 ketoconazole (Nizoral) 2 % Cream Twice a day 08/23/2019 02/24/2023 simvastatin (Zocor) 40 mg tablet daily. 08/23/2019 02/25/2023 hydrOXYzine (ATARAX) 10 mg tablet Take 10 mg by mouth 3 times daily as needed. 01/18/2023 gabapentin (NEURONTIN) 100 mg capsule Take 100 mg by mouth 3 times daily. 08/04/2023 simvastatin (ZOCOR) 10 mg tablet Take 10 mg by mouth nightly. 01/27/2023 naproxen sodium 220 mg Cap Take by mouth. 01/27/2023 documented as of this encounter Plan of Treatment Upcoming Encounters Date Type Department Care Team (Late st Contact Info) Description 02/03/2024 10:00 AM EDT [place] [address] Austin Simon MD [facility] [place] [address] Lindy Box APRN [facility] [place] [address] documented as of this encounter Procedures Procedure Name Priority Date/Time Associated Diagnosis Comments ECHO COMPLETE Routine 08/25/2019 1:58 PM EST Heart failure, unspecified HF chronicity, unspecified heart failure type documented in this encounter Results * ECHO COMPLETE (08/25/2019 1:58 PM EST) EF 45 HEARTLAB SYSTEM Anatomical Region Laterality Modality Other 08/25/2019 Narrative 08/25/2019 2:25 PM EST Procedure: ?Transthoracic Echocardiogram Patient: ?KIA Conley . ? (Age): 1955(63y) Med Rec#: ? [id number] ?Sex: ?M ? Site Loc: ? [facility] ??Ht / Wt: ??165.1(cm)/118.3 Pt. Loc: ?Adult Floor ? BSA: ?2.22 Study Date: ?? 08/25/2019 ?Pt. Type: Inpatient Tape: ? Referring: Dianne Pace Referring: [facility] (Diag Imaging) Referring: [facility](Med Rec) Referring: [facility](Med/Surg) Reading: Remy Ball ([id number]) [employer] Worker: ABHI [employer] Worker: ABHI Diagnosis: *Heart failure, unspecified (I50.9) Rhythm: ? Sinus BP: ? 125/73 SUMMARY: 1. Mild concentric left ventricular hypertrophy is observed. ??Global left ventricular systolic function is moderately reduced. ??Ejection fraction is estimated to be 45%. ??There is diffuse hypokinesis present. 2. The left atrium is normal in size. 3. No significant valvular abnormalities. ?? 4. Other details as noted below. ?? Findings ? : Study Quality: ? Technically limited Left Ventricle: ? The left ventricle is moderately dilated. ?Mild concentric left ventricular hypertrophy is observed. ?Global left ventricular systolic function is moderately reduced. Ejection fraction is estimated to be 45%. ?There is diffuse hypokinesis present. ?The ??basal anteroseptal, basal anterior, basal anterolateral, basal inferolateral, basal inferior, basal inferoseptal, mid anteroseptal, mid anterior, mid anterolateral, mid inferolateral, mid inferior, mid inferoseptal, apical septal, apical anterior, apical lateral, and apical inferior wall segments are hypokinetic (score 2). ?Overall wallmotion score index is ??2.00 Left Atrium: ? The left atrium is normal in size. Right Ventricle: ? The right ventricle is not well visualized. Right Atrium: ? The right atrium appears normal. Aortic Valve: ? The aortic valve is tricuspid. ?The aortic valve leaflets are mildly thickened. ?There is no evidence of aortic valve stenosis. ?Mild (1+/4+) aortic valve regurgitation is present. Mitral Valve: ? There is mitral annular calcification. ?There is no evidence of mitral stenosis. ?There is mild (1+/4+) mitral regurgitation present. Tricuspid Valve: ? The tricuspid valve appears normal in structure and function. Pulmonic Valve: ? The pulmonic valve appears normal in structure and function. ?There is trace pulmonic regurgitation present. Pericardium: ? There is no pericardial effusion. Aorta: ? The aortic root is normal in size. ?The ascending aorta is normal in size. Chambers 2D ?Value ?Units (Range) ? IVSd (2D) ? 1.01 ? cm ? LVPWd (2D) ?1.01 ? cm ? IVS:LVPW ratio (2D) 1 ?ratio ? LVIDd (2D) ?5.8 ?cm ? LVIDs (2D) ?5.21 ? cm ? LV FS (2D) ?10.15 ?% ? EF Teichholz (2D) ?? 21.85 ?% ? Ascending Ao ?3.23 ? cm (2 - 3.5) ? Volumes/Mass ?Value ?Units (Range) ? LA ESV BP (A/L) inde25.96 ?ml/m2 ? Diastolic/Systolic Function ?Value ?Units (Range) ? MV E-wave Vmax ?0.81 ? m/sec ? MV deceleration fuxh693.33 ? msec ? MV A-wave Vmax ?1.06 ? m/sec ? MV E:A ratio ?0.76 ? ratio ? LV septal e' Vmax ?? 0.03 ? m/sec ? LV lateral e' Vmax ??0.04 ? m/sec ? LV E:e' septal ratio26.05 ?ratio ? LV E:e' lateral rati19.41 ?ratio ? Aortic Valve ?Value ?Units (Range) ? AV Vmax ? 1.26 ? m/sec ? AV VTI ?27.77 ?cm ? AV peak gradient ?6.32 ? mmHg ? AV mean gradient ?4.11 ? mmHg ? LVOT diameter ? 2.06 ? cm ? LVOT Vmax ? 0.93 ? m/sec ? LVOT VTI ?18.51 ?cm ? CO LVOT ? 3.9 ?l/min ? ROSEANN (continuity Vmax2.46 ? cm2 ? ROSEANN (continuity Vmax1.11 ? cm2/m2 ? ROSEANN (continuity VTI)1 ?cm2/m2 ? Mitral Valve ?Value ?Units (Range) ? MV PHT ?52.88 ?msec ? MVA (PHT) ? 4.16 ? cm2 ? Pulmonic Valve/Qp:Qs ?Value ?Units (Range) ? PV Vmax ? 0.97 ? m/sec ? PV VTI ?20.84 ?cm ? PV peak gradient ?3.75 ? mmHg ? PV mean gradient ?2.04 ? mmHg ? RVOT Vmax ? 0.84 ? m/sec ? RVOT VTI ?15.28 ?cm ? RVOT peak gradient ??2.83 ? mmHg ? PV acceleration time71.83 ?msec ? PV ejection time ?312.17 ? msec ? PV AT:ET ?0.23 ? ratio ? Wall Motion: Segment Name ?Rest ? Base-Anteroseptal ?? Hypokinetic ? Base-Anterior ? Hypokinetic ? Base-Anterolateral ??Hypokinetic ? Base-Posterolateral Hypokinetic ? Base-Inferior ? Hypokinetic ? Base-Inferoseptal ?? Hypokinetic ? Mid-Anteroseptal ?Hypokinetic ? Mid-Anterior ?Hypokinetic ? Mid-Anterolateral ?? Hypokinetic ? Mid-Posterolateral ??Hypokinetic ? Mid-Inferior ?Hypokinetic ? Mid-Inferoseptal ?Hypokinetic ? [place]-Septal ? Hypokinetic ? [place]-Anterior ? Hypokinetic ? [place]-Lateral ?Hypokinetic ? [place]-Inferior ? Hypokinetic ? [place]-Tip ?Hypokinetic ? This report has been electronically signed by: Remy Ball MD ? 08/25/2019 14:23:59 Images reviewed and interpretation verified [facility] Cardiac Ultrasound Laboratory Procedure Note Remy Ball MD - 08/25/2019 Procedure: Transthoracic Echocardiogram Patient: KIA Parada (Age): 1955(63y) [facility] Rec#: [id number] Sex: M Site Loc: [facility] Ht / Wt: 165.1(cm)/118.3 Pt. Loc: Adult Floor BSA: 2.22 Study Date: 08/25/2019 Pt. Type: Inpatient Tape: Referring: Dianne Pace Referring: [facility] (Diag Imaging) Referring: [facility](Med Rec) Referring: [facility](Med/Surg) Reading: Remy Ball ([id number]) [employer] Worker: ABHI [employer]ation Worker: ABHI Diagnosis: *Heart failure, unspecified (I50.9) Rhythm: Sinus BP: 125/73 SUMMARY: 1. Mild concentric left ventricular hypertrophy is observed. Global left ventricular systolic function is moderately reduced. Ejection fraction is estimated to be 45%. There is diffuse hypokinesis present. 2. The left atrium is normal in size. 3. No significant valvular abnormalities. 4. Other details as noted below. Findings : Study Quality: Technically limited Left Ventricle: The left ventricle is moderately dilated. Mild concentric left ventricular hypertrophy is observed. Global left ventricular systolic function is moderately reduced. Ejection fraction is estimated to be 45%. There is diffuse hypokinesis present. The basal anteroseptal, basal anterior, basal anterolateral, basal inferolateral, basal inferior, basal inferoseptal, mid anteroseptal, mid anterior, mid anterolateral, mid inferolateral, mid inferior, mid inferoseptal, apical septal, apical anterior, apical lateral, and apical inferior wall segments are hypokinetic (score 2). Overall wallmotion score index is 2.00 Left Atrium: The left atrium is normal in size. Right Ventricle: The right ventricle is not well visualized. Right Atrium: The right atrium appears normal. Aortic Valve: The aortic valve is tricuspid. The aortic valve leaflets are mildly thickened. There is no evidence of aortic valve stenosis. Mild (1+/4+) aortic valve regurgitation is present. Mitral Valve: There is mitral annular calcification. There is no evidence of mitral stenosis. There is mild (1+/4+) mitral regurgitation present. Tricuspid Valve: The tricuspid valve appears normal in structure and function. Pulmonic Valve: The pulmonic valve appears normal in structure and function. There is trace pulmonic regurgitation present. Pericardium: There is no pericardial effusion. Aorta: The aortic root is normal in size. The ascending aorta is normal in size. Chambers 2D Value Units (Range) IVSd (2D) 1.01 cm LVPWd (2D) 1.01 cm IVS:LVPW ratio (2D) 1 ratio LVIDd (2D) 5.8 cm LVIDs (2D) 5.21 cm LV FS (2D) 10.15 % EF Teichholz (2D) 21.85 % Ascending Ao 3.23 cm (2 - 3.5) Volumes/Mass Value Units (Range) LA ESV BP (A/L) inde25.96 ml/m2 Diastolic/Systolic Function Value Units (Range) MV E-wave Vmax 0.81 m/sec MV deceleration jdkp402.33 msec MV A-wave Vmax 1.06 m/sec MV E:A ratio 0.76 ratio LV septal e' Vmax 0.03 m/sec LV lateral e' Vmax 0.04 m/sec LV E:e' septal ratio26.05 ratio LV E:e' lateral rati19.41 ratio Aortic Valve Value Units (Range) AV Vmax 1.26 m/sec AV VTI 27.77 cm AV peak gradient 6.32 mmHg AV mean gradient 4.11 mmHg LVOT diameter 2.06 cm LVOT Vmax 0.93 m/sec LVOT VTI 18.51 cm CO LVOT 3.9 l/min ROSEANN (continuity Vmax2.46 cm2 ROSEANN (continuity Vmax1.11 cm2/m2 ROSEANN (continuity VTI)1 cm2/m2 Mitral Valve Value Units (Range) MV PHT 52.88 msec MVA (PHT) 4.16 cm2 Pulmonic Valve/Qp:Qs Value Units (Range) PV Vmax 0.97 m/sec PV VTI 20.84 cm PV peak gradient 3.75 mmHg PV mean gradient 2.04 mmHg RVOT Vmax 0.84 m/sec RVOT VTI 15.28 cm RVOT peak gradient 2.83 mmHg PV acceleration time71.83 msec PV ejection time 312.17 msec PV AT:ET 0.23 ratio Wall Motion: Segment Name Rest Base-Anteroseptal Hypokinetic Base-Anterior Hypokinetic Base-Anterolateral Hypokinetic Base-Posterolateral Hypokinetic Base-Inferior Hypokinetic Base-Inferoseptal Hypokinetic Mid-Anteroseptal Hypokinetic Mid-Anterior Hypokinetic Mid-Anterolateral Hypokinetic Mid-Posterolateral Hypokinetic Mid-Inferior Hypokinetic Mid-Inferoseptal Hypokinetic [place]-Septal Hypokinetic [place]-Anterior Hypokinetic [place]-Lateral Hypokinetic [place]-Inferior Hypokinetic [place]-Tip Hypokinetic This report has been electronically signed by: Remy Ball MD 08/25/2019 14:23:59 Images reviewed and interpretation verified [facility] Cardiac Ultrasound Laboratory Dianne Pace APRN ECHO ORDERABLES documented in this encounter Visit Diagnoses Diagnosis Heart failure, unspecified HF chronicity, unspecified heart failure type documented in this encounter Care Teams Assistant Therapy Aide Relationship Specialty Start Date End Date Reina Alcala APRN [address] [place] [address] [place] [address] PCP - General 04/18/14 01/17/23 documented as of this encounter
--- OUTSIDE RECORDS SUMMARY | 2024-01-19 15:31 | XMS_ITS | Encounter Summary ---
Author Organization [facility] [place] [address] Care Team Providers Care Provider Relations Coordinator Name Role Phone Reinier Arceo Primary Care Provider [phone] Reason for Visit * Auth/Cert (Routine) Specialty Diagnoses / Procedures Referred By Fady t Referred To Contact Diagnoses Heart failure CHF w/ CLEM Procedures EMERGENCY [place]I [place] [address] [facility] Referral ID Status Reason Start Date Expiration Date Visits Re quested Visits Authorized [id number] 1 1 Encounter Details Date Type Department Care Team (Late st Contact Info) Description 01/22/2023 1:00 PM EDT - 01/22/2023 2:00 PM [place] [address] Layton Morris MD [facility] [place] [address] CARDIAC CATHETERIZATION Social History Tobacco Use Types Packs/Day Years [...] Sign Reading Time Taken Comments Blood Pressure 132/82 01/22/2023 12:31 PM EDT Pulse 69 01/22/2023 12:31 PM EDT Temperature 36.9 ??C (98.4 ??F) 01/22/2023 1 2:31 PM EDT Respiratory Rate 20 01/22/2023 12:3 1 PM EDT Oxygen Saturation 94% 01/22/2023 12: 31 PM EDT Inhaled Oxygen Concentration - - Weight 103.1 kg (227 lb 3.2 oz) 01/22/2023 4:08 AM EDT Height 165.1 cm (5' 5) [...] 2020), diabetes, hypertension,and hyperlipidemia who presents from [facility] ED after being redirected from [facility] urgent clinic for one month of progressively [...] getting progressively worse he went to the [facility] urgent clinic in [place], [place] and was subsequently transferred to [facility] ED for further management. Upon initial presentation to [facility] ED: The patient was noted to [...] reportedly 40 mg PO) and [place] [facility] [place] management of presumed acute on chronic HFrEF and CLEM. Upon direct admission [place] [facility]: The patient was noted to be afebrile [...] Patient was started on GDMT with metoprolol njzhalsqz17 mg daily and losartan 25 mg daily. [...] he does have capacity. Spoke with his residential case manager Randa Gonzalez prior to discharge who was [...] ADMISSION LABS: DISCHARGE BASIC LABS Recent Labs 01/26/2331001/25/23 0406 01/23/23 0253 WBC 8.4 8.2 8.1 HGB 10.2* 10.6* 10.4* HCT 29.8* 30.7* 30.7* PLATELET 161 170 182 Recent Labs 01/26/2331001/25/23 0406 01/24/23 0256 NA 139 139 139 [...] Time Provider Department Center 01/28/2023 1:00 PM [facility] ROOM 4 [facility] Rad Your Inpatient Doctor: Mendel Luna MD Your Primary Care Provider: ELSIE Espinoza [phone] For questions regarding this document or issues relating to this hospitalization on the Medical Service, please contact your inpatient physician through the [facility] General Administrator . Issues afterhours and on weekends will be handled by the Hospitalist staff on-call. General Instructions None Future Appointments and Orders Future Appointments and Orders Future Appointments Provider Department Dept Phone 01/28/2023 1:00 PM [facility] US ROOM 4 [place]trasound at [facility] Arrive at: Ward Supervisor Area [phone] Please bring someone to drive you home. [...] Sanchez for admission to Home Health. [address] [address] Phone Number: [phone] (home) Date of : 1955 Inpatient DOCUMENTATION FOR VNA SERVICES (INCLUDING THOSE PATIENTS WITH MEDICARE COVERAGE REQUIRING HOME VNA SERVICES AND/OR HOSPICE SERVICES) PATIENT'S LOCATION: Miguel Sanchez [address] [address] [phone] (home) Cell: Telephone Information: Tray Setter's Name: self In discussion with the attending physician, it is certified that this patient is under their care and that they, or a Nurse Practitioner, Clinical Nurse specialist or Physician Pricing Analyst who is working directly with them, had a face to face encounter that meets the physician face to face encounter requirements with this patient on 01/26/23 (MD please enter DC date here) The encounter [...] manage benedict catheter HOME HEALTH CARE AGENCY: [facility]. [address] [place] [address] Start of care: 24-48 hours after discharge [...] patient's PCP: ELSIE Espinoza DR [address] / [facility] [address] . All VNA agencies which cover the area of patient's residence have been reviewed, either verbally or in writing, and patient/family have chosen the home health care agency noted. Questions: Disciplines Requested: Nursing Referral to Urology [[id number] Custom] As directed Process Instructions: If no progress note charted, please enter Clinical details in comments. Scheduling Instructions: Questions: My question or request is: 67 yo M admitted 01/18-01/26 w/ renal failure due to obstruction, discharged w/ benedict. Provider Contact Information: ELSIE Espinoza [address] / [facility] [address] Discharge References/Attachments: Discharge References/Attachments None documented in [...] Time Provider Department Center 01/28/2023 1:00 PM [facility] ROOM 4 [facility] Rad Your PCP office will contact you about scheduling follow up. Your Inpatient Doctor: Mendel Luna MD Your Primary Care Provider: ELSIE Espinoza [phone] For questions regarding this document or issues relating to this hospitalization on the Medical Service, please contact your inpatient physician through the [facility] General Administrator . Issues afterhours and on weekends will be handled by the Hospitalist staff on-call. * Attachments The following attachments cannot be sent through Care Everywhere. * Caregiver: Caring for an Indwelling Urinary Catheter: General Info (Portuguese) documented in this encounter Medications at Time [...] discharge to home with [facility] * Tati Schultz - 01/27/2023 3:43 PM EDTSummary: Transportation Transportation for discharge was scheduled and confirmed through [facility]. [facility] will have a electric pile driver operator at the Main Entrance at 4:15p today to provide patient with transportation home. * Camille Shelley RD - 01/27/2023 12:42 PM EDT Nutrition Progress Note Miguel Sanchez is a 67 y.o. male with PMH significant for HFrEF (last known EF 45% in 2020), diabetes, hypertension, and hyperlipidemia who presents from [facility] ED after being redirected from [facility] urgent clinic for one month of progressively [...] Marii Serrano - 01/27/2023 11:42 AM EDT Branch General Manager Encounter Note Patient Name: Miguel Sanchez : [id number] MR#: [id number] Admit Date: 01/18/2023 5:25 PM Hospital Day [...] AM EDT Hypertension-Nephrology Inpatient Follow-up Miguel Sanchez [id number] 1955 ID: 67 y.o. old male seen [...] SPEP shows possible paraprotein however DOROTEO negative. [place] & Lambda light chains elevated however ratio [...] TID This case was discussed with staff cosmetician Dr. Crawford and the primary team. Please contact me at phone: [phone] or pager: [phone] with any questions. Deonte Lugo MD Nephrology [...] Marii Serrano - 01/26/2023 3:59 PM EDT Branch General Manager Encounter Note Patient Name: Miguel Sanchez DOB: [id number] MR#: [id number] Admit Date: 01/18/2023 5:25 PM Hospital Day [...] 1955 PCP: ELSIE Espinoza PCP phone number: [phone] Date of Admission: 01/18/2023 ( Hospital Day 8 days ) Attending:Mendel Luna MD ID: Miguel Sanchez is a 67 y.o. male with PMH significant for HFrEF (last known EF 45% in 2020), diabetes, hypertension, and hyperlipidemia who presents from [facility] ED after being redirected from [facility] urgent clinic for one month of progressively [...] 0-->no symptoms 01/20/23 0354 Labs: Recent Labs 01/26/2331001/25/23 0406 01/23/23 0253 01/22/23 0242 01/21/23 0242 WBC 8.4 8.2 8.1 8.3 8.1 HGB 10.2* 10.6* 10.4* 10.3* 11.1* HCT 29.8* 30.7* 30.7* 30.8* 32.4* PLATELET 161 170 182 183 202 MCV 91.7 90.8 90.0 90.3 90.3 Recent Labs 01/26/2331001/25/23 0406 01/24/23 0256 01/23/23 0253 01/22/23 0242 [...] the last 168 hours. Endocrine Recent Labs 01/18/232215 TSH 2.03 Recent Labs 01/26/23 1142 01/26/23 [...] Gas) No results found for: PHART, PO2ART, BVB6AYR, KZN2AWI Microbiology: Microbiology Results (Last 30 days) Procedure Component Value Units Date/Time Urine culture [[id number]] Collected: 01/18/232212 Lab Status: Final result Specimen: Indwelling Catheter Urine Updated: 01/19/23 184 Urine Culture No growth (Less than 1,000 [...] who have questions, please contact the health personal caregiver that requested your imaging first. Jimmie العراقي, Staff Physician Electronically Signed Final Report 01/19/2023 08:47 am US Retroperitoneal Complete (Exam End: 01/25/2023 3:50 PM) Impression 1. No significant interval change in mild right pelvicaliectasis. 2. No left-sided collecting system dilatation. 3. Normal bilateral renal cortical thickness and corticomedullary differentiation. 4. Bladder not distended for evaluation, Benedict catheter in place. Thank you for letting us participate in the care of this patient. If you are a health care provider and have any questions regarding this report, please contact the number above. For patients who have questions, please contact the health personal caregiver that requested your imaging first. Elsie Garza, [facility] Gas Torch Solderer Electronically Signed Final Report 01/25/2023 04:10 pm [...] diabetes, hypertension, and hyperlipidemia who presents from [facility] ED after being redirected from [facility] urgent clinic for one month of progressively [...] PPx: Diet: Daily Healthy Menu Choices/Cardiac diet ([facility] Lines: Peripheral IV Line - Single Lumen [...] Yousif MSW - 01/26/2023 2:43 PM EDT DIRECTOR RADIO received a consult to support patient regarding concern of not getting his rent paid on time, which is typically due on the 1st of every month. DIRECTOR RADIO called patient's property management company, [employer], and spoke to one of the student counsellor's, Meri, who stated they have a crow period forpaying rent late and are flexible with this kind of stuff. Meri also mentioned patient had spoken with one of her colleagues recently and asked if they could drive down to the hospital to grabthe check. DIRECTOR RADIO checked with patient to see if he has the check, to which he responded no. Patient to be discharged tomorrow. * Deonte Lugo MD - 01/26/2023 7:51 AM EDT Hypertension-Nephrology Inpatient Follow-up Miguel Sanchez [id number] 1955 ID: 67 y.o. old male seen [...] SPEP shows possible paraprotein however DOROTEO negative. [place] & Lambda light chains elevated however ratio [...] daily This case was discussed with staff cosmetician Dr. Crawford and the primary team. Please contact me at phone: [phone] or pager: [phone] with any questions. Deonte Lugo MD Nephrology [...] AM EDT Hypertension-Nephrology Inpatient Follow-up Miguel Sanchez [id number] 1955 ID: 67 y.o. old male seen [...] SPEP shows possible paraprotein however DOROTEO negative. [place] & Lambda light chains elevated however ratio [...] daily This case was discussed with staff cosmetician Dr. Crawford. Please contact me at phone: [phone] or pager: [phone] with any questions. Deonte Lugo MD Nephrology [...] peripheral neuropathy. CLEM and volume overload resolving. David calhoun need snf diuretics to maintain fluid balance. Please obtain repeat renal US and schedule for renal clinic follow up with Dr Lugo in 2 weeks. * Kendy Montes MD - 01/25/2023 6:05 AM EDT Images from the original note were not included. Cardiology Progress Note Patient info: Name: Miguel Sanchez : 1955 PCP: ELSIE Espinoza PCP phone number: [phone] Date of Admission: 01/18/2023 ( Hospital Day 7 days ) Attending:Mendel Luna MD ID: Miguel Sanchez is a 67 y.o. male with PMH significant for HFrEF (last known EF 45% in 2020), diabetes, hypertension, and hyperlipidemia who presents from [facility] ED after being redirected from [facility] urgent clinic for one month of progressively [...] Gas) No results found for: PHART, PO2ART, CSD6YSD, HUP7WDT Microbiology: Microbiology Results (Last 30 days) Procedure Component Value Units Date/Time Urine culture [[id number]] Collected: 01/18/232212 Lab Status: Final result Specimen: Indwelling Catheter Urine Updated: 01/19/23 184 Urine Culture No growth (Less than 1,000 [...] who have questions, please contact the health personal caregiver that requested your imaging first. Jimmie العراقي, [...] diabetes, hypertension, and hyperlipidemia who presents from [facility] ED after being redirected from [facility] urgent clinic for one month of progressively [...] AM EDT Hypertension-Nephrology Inpatient Follow-up Miguel Sanchez [id number] 1955 ID: 67 y.o. old male seen [...] mental health clinic and has a social work specialist there who helps him. Physical Examination: Last [...] negative. SPEP shows possible paraprotein DOROTEO pending. [place] & Lambda light chains elevated however ratio [...] from clinic visits and has a social work specialist whogenerally helps him with this. This is [...] deficiency. This case was discussed with staff cosmetician Dr. Morrow. Please contact me at phone: [phone] or pager: [phone] with any questions. Deonte Lugo MD Nephrology [...] He does report having a mental health sales architect who may be of some assistance when discharge planning comes to play. * Kendy Montes MD - 01/24/2023 6:39 AM EDT Images from the original note were not included. Cardiology Progress Note Patient info: Name: Miguel Snachez : 1955 PCP: ELSIE Espinoza PCP phone number: [phone] Date of Admission: 01/18/2023 ( Hospital Day 6 days ) Attending:Mendel Luna MD ID: Miguel Sanchez is a 67 y.o. male with PMH significant for HFrEF (last known EF 45% in 2019), diabetes, hypertension, and hyperlipidemia who presents from [facility] ED after being redirected from [facility] urgent clinic for one month of progressively [...] 0-->no symptoms 01/20/23 0354 Labs: Recent Labs 01/23/23 0253 01/22/23 0242 [...] 5.47* 5.86* 5.70* 5.79* LFTs Recent Labs 01/18/23 1916 PROT 7.2 ALBUMIN 4.2 AST 12 ALT 12 ALKPHOS 95 BILITOT 0.7 Coags Recent Labs 01/18/236 INR 1.3 PT 14.3* PTT 35 Cardiac Enzymes Recent Labs 01/19/23 0150 01/18/23 1916 CK 70 -- PROBNP -- 11,818* Endocrine Recent Labs 01/18/232215 TSH 2.03 Recent Labs 01/23/23 2116 01/23/23 [...] Gas) No results found for: PHART, PO2ART, HUV1LMH, WTG0LWC Microbiology: Microbiology Results (Last 30 days) Procedure Component Value Units Date/Time Urine culture [[id number]] Collected: 01/18/232212 Lab Status: Final result Specimen: [...] who have questions, please contact the health personal caregiver that requested your imaging first. Jimmie العراقي, [...] diabetes, hypertension, and hyperlipidemia who presents from [facility] ED after being redirected from [facility] urgent clinic for one month of progressively [...] AM EDT Hypertension-Nephrology Inpatient Follow-up Miguel Sanchez [id number] 1955 ID: 67 y.o. old male seen [...] negative. SPEP shows possible paraprotein DOROTEO pending. [place] & Lambda light chains elevated however ratio [...] and voiding trial - Please start ergocalciferol 57574 U weekly This case was discussed with staff cosmetician Dr. Morrow. Please contact me at phone: [phone] or pager: [phone] with any questions. Deonte Lugo MD Nephrology [...] 1955 PCP: ELSIE Espinoza PCP phone number: [phone] Date of Admission: 01/18/2023 ( Hospital Day 5 days ) Attending:Mendel Luna MD ID: Miguel Sanchez is a 67 y.o. male with PMH significant for HFrEF (last known EF 45% in 2019), diabetes, hypertension, and hyperlipidemia who presents from [facility] ED after being redirected from [facility] urgent clinic for one month of progressively [...] Objective: Intake/Output Summary (Last 24 hours) at 01/23/2023722 Last data filed at 01/23/2023 0500 Gross [...] 0-->no symptoms 01/20/23 0354 Labs: Recent Labs 01/23/23 0253 01/22/23 0242 [...] Gas) No results found for: PHART, PO2ART, OAI6WSC, CUP5FPF Microbiology: Microbiology Results (Last 30 days) Procedure Component Value Units Date/Time Urine culture [[id number]] Collected: 01/18/232212 Lab Status: Final result Specimen: [...] who have questions, please contact the health personal caregiver that requested your imaging first. Jimmie العراقي, [...] diabetes, hypertension, and hyperlipidemia who presents from [facility] ED after being redirected from [facility] urgent clinic for one month of progressively [...] diabetes, hypertension, and hyperlipidemia who presents from [facility] ED after being redirected from [facility] urgent clinic for one month of progressively [...] MS, RD, LD Clinical Nutrition * Sushma Hernandez OT - 01/22/2023 9:56 AM EDT Occupational Therapy Treatment Note Treatment Number OT: 2 Patient Dx: Miguel Sanchez is a 67 y.o. male with PMH significant for HFrEF (last known EF 45% in 2020), diabetes, hypertension, and hyperlipidemia who presents from [facility] ED after being redirected from [facility] urgent clinic for one month of progressively [...] transportation for shopping and errands and his residential case manager visits once a week. Pt does not [...] Consistently following commands ADL: Assist needed to don/[facility] gown d/t lines Toileting: provided [...] Therapy: 30 (SCHM x 2; 9:56-10:26) Pager: [phone] Sushma Hernandez OT Occupational Therapy Rehabilitation Department * Deonte Lugo MD - 01/22/2023 7:46 AM EDT Hypertension-Nephrology Inpatient Follow-up Miguel Sanchez [id number] 1955 ID: 67 y.o. old male seen [...] negative. SPEP shows possible paraprotein DOROTEO pending. [place] & Lambda light chains elevated however ratio [...] primaryteam. This case was discussed with staff cosmetician Dr. Morrow. Please contact me at phone: [phone] or pager: [phone] with any questions. Deonte Lugo MD Nephrology [...] 1955 PCP: ELSIE Espinoza PCP phone number: [phone] Date of Admission: 01/18/2023 ( Hospital Day 4 days ) Attending:Mendel Luna MD ID: Miguel Sanchez is a 67 y.o. male with PMH significant for HFrEF (last known EF 45% in 2019), diabetes, hypertension, and hyperlipidemia who presents from [facility] ED after being redirected from [facility] urgent clinic for one month of progressively worsening shortness of breath and associated chest pain occurring both at rest and on exertion with concern for HFrEF exacerbation and CLEM. Active Problems: Active Hospital Problems Diagnosis Heart failure Resolved Hospital Problems No resolved problems to display. 24 Hour and Subjective: Yesterday: -Holding diuresis. Was going to [facility] but got bumped so plan for tomorrow. [...] 0242 01/21/23 0242 01/20/23 0326 01/19/23 0150 01/18/232215 WBC 8.3 8.1 8.1 7.8 6.9 HGB [...] 01/21/23 1132 01/21/23 0938 01/21/23 0805 01/20/23 19401/20/23 1638 01/20/23 1614 01/20/23 1133 01/20/23 0724 01/19/23 2133 POCGLU 145 199 125 249* 233* 178 158 96 101 206* 152 112 Heme No results for input(s): LDH, HAPTOGLOBIN, URICACID in the last 168 hours. ABG (Arterial Blood Gas) No results found for: PHART, PO2ART, QJH9QPW, UVQ0KIR Microbiology: Microbiology Results (Last 30 days) Procedure Component Value Units Date/Time Urine culture [[id number]] Collected: 01/18/232212 Lab Status: Final result Specimen: [...] who have questions, please contact the health personal caregiver that requested your imaging first. Jimmie العراقي, [...] diabetes, hypertension, and hyperlipidemia who presents from [facility] ED after being redirected from [facility] urgent clinic for one month of progressively [...] (Active) Number of days: 3 Code status: @CODESTATUS@ Kendy Montes MD Internal [...] below which reflects our discussion. * Sera Macnera, PT - 01/21/2023 12:05 PM EDT Physical Therapy Note Treatment Number PT: 2 Patient profile: Miguel Sanchez is a 67 y.o. male with PMH significant for HFrEF (last known EF 45% in 2019), diabetes, hypertension, and hyperlipidemia who presents from [facility] ED after being redirected from [facility] urgent clinic for one month of progressively [...] alone in a single level apartment in [place], [place] Bathroom Set-up: Tub-shower with a shower [...] 19 Billing Code: Gait x1 Sera Mancera, LORA Pager: [phone] Physical Therapy Inpatient Rehabilitation Department * Deonte Lugo MD - 01/21/2023 7:44 AM EDT Hypertension-Nephrology Inpatient Follow-up Miguel Sanchez [id number] 1955 ID: 67 y.o. old male seen [...] being This case was discussed with staff cosmetician Dr. Morrow. Please contact me at phone: [phone] or pager: [phone] with any questions. Deonte Lugo MD Nephrology [...] 1955 PCP: ELSIE Espinoza PCP phone number: [phone] Date of Admission: 01/18/2023 ( Hospital Day 3 days ) Attending:Chris Lim MD ID: Miguel Sanchez is a 67 y.o. male with PMH significant for HFrEF (last known EF 45% in 2020), diabetes, hypertension, and hyperlipidemia who presents from [facility] ED after being redirected from [facility] urgent clinic for one month of progressively [...] 0-->no symptoms 01/20/23 0354 Labs: Recent Labs 01/21/23 0242 01/20/23 0326 01/19/23 0150 01/18/23221501/18/231915 WBC 8.1 8.1 7.8 6.9 7.2 HGB 11.1* 10.8* 10.1* 10.1* 10.1* HCT 32.4* 32.5* 30.3* 31.0* 30.1* PLATELET 202 202 173 196 183 MCV 90.3 91.8 93.2* 93.9* 92.9 Recent Labs 01/21/23 0242 01/20/23 0326 01/19/23 1415 01/19/23 1029 01/19/23 0621 01/19/2314901/18/232215 NA 140 139 140 143 143 143 [...] Gas) No results found for: PHART, PO2ART, QOD8GJM, WXC0TNR Microbiology: Microbiology Results (Last 30 days) Procedure Component Value Units Date/Time Urine culture [[id number]] Collected: 01/18/232212 Lab Status: Final result Specimen: [...] who have questions, please contact the health personal caregiver that requested your imaging first. Jimmie العراقي, [...] diabetes, hypertension, and hyperlipidemia who presents from [facility] ED after being redirected from [facility] urgent clinic for one month of progressively [...] (Active) Number of days: 2 Code status: @AKUATATUS@ Kendy Montes MD Internal Medicine, PGY-1 Cardiology M1-S1, #3011 Cardiology M1-S2, #3349 01/21/2023, 6:02 AM Cardiology Staff Addendum Miguel [...] AM EDT Hypertension-Nephrology Inpatient Follow-up Miguel Sanchez [id number] 1955 ID: 67 y.o. old male seen [...] his dry weight. - Would recommend consulting/[facility] for help with obstruction as he [...] serologies This case was discussed with staff cosmetician Dr. Morrow and the patient's primary team. Please contact me at phone: [phone] or pager: [phone] with any questions. Deonte Lugo MD Nephrology [...] Reina Alcala APRN (Inactive) PCP phone number: [phone] Date of Admission: 01/18/2023 ( Hospital Day 2 days ) Attending:Chris Lim MD ID: Miguel Sanchez is a 67 y.o. male with PMH significant for HFrEF (last known EF 45% in 2019), diabetes, hypertension, and hyperlipidemia who presents from [facility] ED after being redirected from [facility] urgent clinic for one month of progressively [...] 01/19/232099 Securement catheter stabilization device, secured with 01/19/23 2100 Patency/Maintenance flushed without difficulty;alcohol impregnated cap applied 01/19/23 2100 Phlebitis 0-->no symptoms 01/20/23 035 Infiltration 0-->no symptoms 01/20/23 0354 Labs: Recent Labs 01/20/23 0326 01/19/23 0150 01/18/236 01/18/231915 WBC 8.1 7.8 6.9 7.2 HGB 10.8* [...] Gas) No results found for: PHART, PO2ART, JZU4ACE, ELJ5STR Microbiology: Microbiology Results (Last 30 days) Procedure Component Value Units Date/Time Urine culture [[id number]] Collected: 01/18/232212 Lab Status: Final result Specimen: [...] who have questions, please contact the health personal caregiver that requested your imaging first. Jimmie العراقي, Staff Physician Electronically Signed Final Report 01/19/2023 08:47 am TTE 01/19/23: Interpretation Summary Left ventricle is mildly dilated with mildly increased wall thickness. LVEF is 29% by Clalahan's biplane. There is no left ventricular thrombus. [...] diabetes, hypertension, and hyperlipidemia who presents from [facility] ED after being redirected from [facility] urgent clinic for one month of progressively [...] PM EDTSummary: Advance Directive Patient completed a [place] Advance Directive. Patient identified his sister Mony as his health care agent. * Sera Mancera, PT - 01/19/2023 11:00 AM EDT Physical Therapy evaluation Patient profile: Miguel Sanchez is a 67 y.o. male with PMH significant for HFrEF (last known EF 45% in 2020), diabetes, hypertension, and hyperlipidemia who presents from [facility] ED after being redirected from [facility] urgent clinic for one month of progressively worsening shortness of breath and associated chest pain occurring both at rest and on exertion. Social History: Home set-up: Lives alone in a single level apartment in [place], [place] Bathroom Set-up: Tub-shower with a shower chair and grab bars Stairs: Elevator Baseline Mobility: Ambulates without an assistive device. Independent with most I/ADLs, but gets assistance with transportation and errands through mental health agency. Sleeps in a flat bed. Enjoys watching TV. Equipment at home: None Fall history: Denies Precautions/Special Considerations: Full Code, High risk for skin breakdown Lines: Poli, PIV, Telemetry, Benedict Activity Orders: Bedrest with [...] 30 minutes, Moderate Complexity Evaluation Sera Mancera, LORA Pager: [phone] Physical Therapy Inpatient Rehabilitation Department * Sushma Hernandez, OT - 01/19/2023 10:30 AM EDT Occupational Therapy Evaluation Patient profile: Miguel Sanchez is a 67 y.o. male with PMH significant for HFrEF (last known EF 45% in 2020), diabetes, hypertension, and hyperlipidemia who presents from [facility] ED after being redirected from [facility] urgent clinic for one month of progressively [...] transportation for shopping and errands and his residential case manager visits once a week. Pt does not [...] and measurable assessment of functional outcome. Pager: [phone] Sushma Hernandez OTR/L Occupational Therapy Rehabilitation Department * Marii Serrano - 01/19/2023 10:23 AM EDT Branch General Manager Encounter Note Patient Name: Miguel Sanchez : [id number] MR#: [id number] Admit Date: 01/18/2023 5:25 PM Hospital Day [...] Kevin Ashwin and doesn't believe in goingto Yarsani because he can pentecostalism God in any place he is. Patient [...] Follow-up: As needed. Time in Direct Care: Marii Serrano 01/19/2023 * Rach Araujo MSW - 01/19/2023 8:48 AM EDT SABIHA received a consult to support patient in completing a [place] Advance Directive. Referral sent to Office of Care Management ~ Director Of Campus Recreation. * Chris Lim MD - 01/19/2023 6:11 AM EDT Images from the original note were not included. Cardiology Progress Note Patient info: Name: Miguel Sanchez : 1955 PCP: Reina Alcala APRN (Inactive) PCP phone number: [phone] Date of Admission: 01/18/2023 ( Hospital Day 1 day ) Attending:Chris Lim MD ID: Miguel Sanchez is a 67 y.o. male with PMH significant for HFrEF (last known EF 45% in 2019), diabetes, hypertension, and hyperlipidemia who presents from [facility] ED after being redirected from [facility] urgent clinic for one month of progressively worsening shortness of breath and associated chest pain occurring both at rest and on exertion. Active Problems: Active Hospital Problems Diagnosis Heart failure Resolved Hospital Problems No resolved problems to display. 24 Hour and Subjective: Yesterday: - The patient was reassuringly afebrile and hemodynamically stable [place] [facility] [place] Interestingly, initial exam did not demonstrate marked [...] Gas) No results found for: PHART, PO2ART, SWP5QTA, TCN9UPV Microbiology: Microbiology Results (Last 30 days) No [...] who have questions, please contact the health personal caregiver that requested your imaging first. Jimmie العراقي, [...] diabetes, hypertension, and hyperlipidemia who presents from [facility] ED after being redirected from [facility] urgent clinic for one month of progressively [...] Medicine, PGY-1 Cardiology M1-S1, #3011 Cardiology M1-S2, #9714 01/19/2023, 10:56 AM Cardiology Staff Addendum Miguel [...] Reina Alcala APRN (Inactive) PCP phone number: [phone] Date of Admission: 01/18/2023 ( Hospital Day 0 days ) Attending:Tanya Seaman MD ID: Miguel Sanchez is a 67 y.o. male with PMH significant for HFrEF (last known EF 45% in 2019), diabetes, hypertension, and hyperlipidemia who presents from [facility] ED after being redirected from [facility] urgent clinic for one month of progressively [...] getting progressively worse he went to the [facility] urgent clinic in [place], [place] and was subsequently transferred to [facility] ED for further management. Upon initial presentation to [facility] ED: The patient was noted to [...] reportedly 40 mg PO) and [place] [facility] [place] management of presumed acute on chronic HFrEF and CLEM. Upon direct admission [place] [facility] [place] The patient was noted to be afebrile [...] history: Reports living in an apartment in [place], [place] Reports his father as a result [...] diabetes, hypertension, and hyperlipidemia who presents from [facility] ED [facility] one month of progressively worsening shortness of breath and associated chest painoccurring both at rest and on exertion. The patient was reassuringly afebrile and hemodynamically stable upon transfer [place] [facility] [place] Interestingly, initial exam did not demonstrate marked [...] More than 30 minutes were spent in [id number] contact with patient and with arranging discharge [...] have to pay my rent, get two color room attendant's checks - one for rent and one [...] a catheter. Has daily auditory hallucinations of [employer] that he has lived with for decades. No SI/HI. Diagnoses: schizophrenia 1996 Current treatment: zyprexa 15mg QHS Past hospitalizations: never Suicide attempts: not really - years ago he came close, but doesn't elaborate Past psychiatric medications: did not assess Substance Use History/Treatment: no alcohol, cigarettes, marijuana, or other substances Social History: Lives in an apartment by himself in [facility]. No family in the area. Only support is his mental health agency. [facility] - Randa Daniels (residential case manager). Asa Deal is his provider. Problem List: [...] Daily Kendy Montes MD 12.5 mg at 01/27/23 0910 metoprolol succinate XL (Toprol-XL) tablet 25 mg 25 mg Oral Daily Austin Sosa MD 25 mg at 01/27/23 0910 [...] injection 7,500 Units 7,500 Units Subcutaneous Q8H [facility] Kendy Montes MD 7,500 Units at 01/26/23 [...] 1 mg 1 mg Intramuscular Q30 Min PRKyle Zaidi MD insulin lispro (HumaLOG;Admelog) (100 unit/mL) subcutaneous [...] rate, and normal rhythm Language: fluent in maori Mood: fine Affect: blunted and mood-congruent Thought [...] Last wbc, hgb, hct plt Recent Labs 01/27/23348 WBC 8.2 HGB 10.6* HCT 31.5* Last 3 wbc, hgb, hct plt Recent Labs 01/27/2334801/26/231 01/25/23 0406 WBC 8.2 8.4 8.2 HGB 10.6* 10.2* 10.6* HCT 31.5* 29.8* 30.7* PLATELET 163 161 170 Last 3 Lytes Recent Labs 01/27/2334801/26/2331001/25/23 0406 NA 137 139 139 K 4.8 4.8 4.5 CL 107 105 103 CO2 15* 18* 19* BUN 78* 77* 78* CREATININE 4.74* 4.91* 5.06* Last 3 LFTs Recent Labs 01/18/23 1916 AST 12 ALT 12 ALKPHOS 95 BILITOT 0.7 Last Ca, Mg, Phos Recent Labs 01/27/23348 CALCIUM 9.4 PHOS 5.0* MAGNESIUM 0.97 Last 3 TFT Recent Labs 01/18/23 221 TSH 2.03 Last 3 Lipids Recent Labs 01/18/23 221 CHLPL 122 HDL 27 LDLDIRECT 65 Last 3 HgbA1C Recent Labs 01/18/23 221 HA1C 5.7* Last 3 CBC Recent Labs 01/27/2334801/26/2331001/25/23 0406 WBC 8.2 8.4 8.2 External Record [...] check on him, or see if his residential case manager willcheck in on him tomorrow Please page psychiatry with additional questions Patient on IEA Status? IEA: NO, patient is not on IEA and does not have any psychiatric contraindication to discharge at the time of this assessment. Recommendations were communicated to primary team assistant Kendy Montes MD. Maritza Awan MD Psychiatry, [...] [] Minimal - [] Minimal [] Straightforward 50047 [] Low [] Low [] Low [] Low 45629 [] Moderate [x] Moderate [] Moderate [] Moderate 89124 [x] High [] High [x] High [x] High 28886 Final Coding Determination: High Associated attestation - [...] CM). Keon Park MD Psychiatry Consultation Pager: [phone] * Plan of Care - Adrienne Calderon RN - 01/26/2023 6:34 AM EDT OUTCOME EVALUATION [...] Intervention: Identify and Manage Contributors Flowsheets (Taken 01/25/20230) Medication Review/Management: medications reviewed high-risk medications identified [...] diabetes, hypertension, and hyperlipidemia who presents from [facility] ED after being redirected from [facility] urgent clinic for one month of progressively [...] to: discuss discharge planning needs. provide the [facility], Office of Care Management letter from the [employer] pertaining to rehab referrals. provide a letter describing our affiliations within the [facility] and educate about their right to choose where referrals are sent. provide a list of Home Health Agencies / Durable Medical Equipment vendors which serve their preferred geographic area. provided patient with [facility] Star Quality Rating handout. They have requested referrals to: [facility] [employer]. [address] [place] [id number] Note routed to a Director Of Campus Recreation who will communicate referrals to facilities and [...] Identify and Manage Fall Risk Flowsheets (Taken 01/25/2023199) Safety Promotion/Fall Prevention: safety round/check completed Intervention: [...] identified Intervention: Promote Injury-Free Environment Flowsheets (Taken 01/25/2023199) Safety Promotion/Fall Prevention: safety round/check completed * [...] from the original note were not included. [facility] [place] [address] [address] CORONARY ANGIOGRAM AND PERCUTANEOUS CORONARY INTERVENTION REPORT Patient: Miguel Sanchez : 1955 MR number: [id number] Date of Service: 01/22/2023 Senior Instructor: Layton Morris MD Fellow: Mario Alberto Glasgow MD INDICATION: Miguel Sanchez is a 67 y.o. male with PMH significant for HFrEF (last known EF 45% in 2019), diabetes, hypertension, and hyperlipidemia who presents from [facility] ED after being redirected from [facility] urgent clinic for one month of progressively [...] goes to the bank and gets a cashier general's check and pays it. CM tried to call the bank and the customer needs to be present for them to release any funds. I tried to call the [employer] [facility]- but they were closed. CM also tried to call his residential case manager Randa to see if she could help. Left message for her to call back. Will put in DIRECTOR RADIO consult to meet with him on Wednesday to follow up with the [employer] To see if theywould be able [...] PT/OT Recommendations Outpatient Agency/Support Group Needs: Other [facility]: Randa Gonzalez at [phone] (residential case manager) Transportation: Medicaid transport- will need 24 hours [...] will need 24 hour notice to contact [place] t ransportation services prior to discharge. Social [...] GOAL OUTCOME EVALUATION: Ongoing * Plan of [facility], Jayosn De La Cruz Jr., MD - 01/21/2023 11:01 AM EDT [...] plan: moderate/conscious sedation - FULL CODE Jayson Reilly Jr, MD 01/21/2023 11:01 AM * Plan [...] Coon MD Urology PGY-2 Daytime Consult Pager #[phone] * Initial Assessments - Darryl Rodriguez RN - 01/19/2023 4:57 PM EDT Office of Care Management Initial Assessment Darryl Rodriguez RN reviewed record and discussed patient with Care Team. Source of Information: Team, bedside nurse, medical record, and Patient, Chart Review. Introduced self/reviewed role; services accepted. Admitted From: Transfer from another hospital Location: [facility] Reason for Hospitalization: Heart problems and kidney problems Covid Vaccination Status: 1st, 2nd & booster Last COVID test: na Past medical History: No past medical history on file. Hospitalizations Within the Past 30 Days: no previous admission in last 30 days Current Decision-Making Capacity: Self If AD's have not been completed the following surrogate would be surrogate decision maker per [place] surrogate decision making law. (Only good for 180 days) Any patient receiving care in [place] must abide by [place] law. The hierarchy for surrogate decision making [...] (i) The agent with financial power of insurance attorney or a conservator appointed in accordance [...] DME: none Home Address confirmed as: [address] [facility] [address] Social & Family Supports: All names listed below confirmed with patient as current and correct Extended Emergency Contact Information Primary Emergency Contact: Mony Abraham Mobile Relation: Sibling Current Care Provided by: self Provides Primary Care For: no one, unable/limited ability to care for self Caregiver if needed: none Quality of Family relationships: non-existent Community Resources being provided currently: outpatient psychiatric care ([facility]) Behavioral Health History: Schizophrenia unspecified; MMD recurrent unspecified; on Olanzapine 15mgQD per Miroslava Anguiano CM at [facility] Substance Use/Abuse confirmed: denies all Social History [...] Yes ; Prescription Coverage: Yes Preferred Pharmacy: [id number] AT [address] [address] Status: Patient is a : No Primary Care Provider Duane Arceo MD Patient/Caregiver Goals of Treatment: return [...] 7:38 AM EDT Hypertension-Nephrology Consultation Miguel Sanchez [id number] 1955 ID: Miguel Sanchez is 67 y.o. [...] be repeated again. - Would recommend consulting/cur[facility] siding urology for help with obstruction as he may need a bendeict catheter trial v.s. another intervention? He may [...] labs. This case was discussed with staff cosmetician Dr. Morrow and the patient's primary team. Please contact me at phone: [phone] or pager: [phone] with any questions. Deonte Lugo MD Nephrology [...] 10:00 AM EDT Procedure [place] [address] Austin Simon MD [facility] [place] [address] Lindy Box APRN [facility] [place] [address] Scheduled Referrals Name Type Priority Associated Diagnoses [...] 3:11 AM EDT DIFFERENTIAL, AUTOMATED Routine 01/27/20 23 3:11 AM EDT HC VENIPUNCTURE Routine 01/26/2023 [...] POC Glucose 159 65 - 199 mg/dL [facility] Comment: Supplemental ranges: <140 mg/dL before meals <180 mg/dL all other times of the day Blood 01/27/2023 12:1 8 PM EDT 01/27/2023 12:18 PM EDT Mendel Luna MD POINT OF CARE TEST O RDERABLES Performing Organization Address City/[facility]/ZIP Co de Phone Number [facility] [place] [address] * POCT Glucose (01/27/2023 7:58 AM EDT) POC Glucose 173 65 - 199 mg/dL [facility] Comment: Supplemental ranges: <140 mg/dL before meals <180 mg/dL all other times of the day Blood 01/27/2023 7:58 AM EDT 01/27/2023 7:58 AM EDT Mendel Luna MD POINT OF CARE TEST O RDERABLES [facility] [place] [address] * (ABNORMAL) Differential, Automated (01/27/2023 3:49 AM EDT) Neutrophils % 75.3 % [facility] Neutr Abs (ANC) 6.21(H) 1.70 - 6.10 x10(3)/[facility] Lymphocytes % 12.1 % [facility] Lymphocytes Abs 1.0 0.9 - 3.2 x10(3)/[facility] Monocytes % 8.6 % [facility] Monocyte Abs 0.7 0.3 - 0.9 x10(3)/[facility] Eosinophils % 2.9 % [facility] Eosinophils Abs 0.2 0.0 - 0.4 x10(3)/[facility] Basophils % 0.7 % [facility] Basophils Abs 0.1 0.0 - 0.1 x10(3)/[facility] Immature Gran % 0.40 % [facility] Comment: Immature granulocytes(IG's)percentage and absolute count will include metamyelocytes, myelocytes, and promyelocytes. Blood smears from CBCs yielding IG's will be scanned manually for concordance. If this scan disagrees with the automated IG or if promyelocytes are noted, a manual differential will be performed. Angelica Gran Abs 0.03 0.00 - 0.04 x10(3)/[facility] Blood 01/27/2023 3:49 AM EDT 01/27/2023 4:08 AM EDT Narrative Resulting Agency Comment Spec In Lab Kyle Mckeon MD HEMATOLOGY ORDERABLE S [facility] [place] [address] * (ABNORMAL) Hemogram (01/27/2023 3:49 AM EDT) WBC 8.2 4.0 - 9.5 x10(3)/[facility] RBC 3.45(L) 4.58 - 5.54 x10(6)/[facility] Hemoglobin 10.6(L) 13.7 - 16.5 g/dL [facility] Hematocrit 31.5(L) 40.5 - 48.5 % [facility] MCV 91.3 82.9 - 93.1 fL [facility] MCH 30.7 27.5 - 32.1 pg [facility] MCHC 33.7 32.0 - 35.7 g/dL [facility] Platelets 163 145 - 357 x10(3)/[facility] RDWSD 42.7 36.0 - 45.0 [facility] RDWCV 13.0 11.4 - 13.8 % [facility] MPV 12.8 7.6 - 12.9 [facility] nRBC % Auto 0.0 % [facility] nRBC Abs Auto 0.000 0.000 - 0.000 x10(3)/[facility] Blood 01/27/2023 3:49 AM EDT 01/27/2023 4:08 AM EDT Narrative Resulting Agency Comment Spec In Lab Kyle Mckeon MD HEMATOLOGY ORDERABLE S Performing Organization Address City/[facility]/[place] [address] * (ABNORMAL) Phosphorus (01/27/2023 3:49 AM EDT) Phosphorus 5.0(H) 2.5 - 4.5 mg/dL [facility] Blood 01/27/2023 3:49 AM EDT 01/27/2023 4:08 AM EDT Narrative Resulting Agency Comment Spec In Lab Tanya Seaman MD CHEMISTRY ORDERABL ES [facility] [place] [address] * Magnesium (01/27/2023 3:49 AM EDT) Pathologist [facility] Magnesium 0.97 0.69 - 1.07 mmol/L [facility] Blood 01/27/2023 3:49 AM EDT 01/27/2023 4:08 AM EDT Narrative Resulting Agency Comment Spec In Lab Tanya Seaman MD CHEMISTRY ORDERABL ES [facility] [place] [address] * (ABNORMAL) Basic Metabolic Panel (non-fasting) (01/27/2023 3:49 AM EDT) Pathologist [facility] Glucose Lvl 142 65 - 199 mg/dL [facility] Comment:Diabetes: >=200 mg/d L plus symptoms BUN 78(H) 10 - 20 mg/dL [facility] Creatinine 4.74(H) 0.80 - 1.50 mg/dL [facility] Sodium 137 135 - 145 mmol/L [facility] Potassium 4.8 3.5 - 5.0 mmol/L [facility] Comment: Please note: ??Patients with WBC >100,000 may have falsely elevated Potassium levels. ??For accurate Potassium quantification in these patients send serum separator tube (gold top) for subsequent determinations. ??Contact the Clinical Chemistry Laboratory if there are any questions. Chloride 107 98 - 107 mmol/L [facility] CO2 15(L) 22 - 31 mmol/L [facility] Anion Gap 15 5 - 15 mmol/L [facility] Calcium 9.4 8.5 - 10.5 mg/dL [facility] Estimated GFR 13(L) >=60 mL/min/1. 73 m?? [facility] Comment: This patient's estimated GFR [...] MD CHEMISTRY ORDERABL ES Performing Organization Address [facility] de Phone Number [facility] [place] [address] * (ABNORMAL) POCT Glucose (01/26/2023 8:20 PM EDT) POC Glucose 202(H) 65 - 199 mg/dL [facility] Comment: Supplemental ranges: <140 mg/dL before meals <180 mg/dL all other times of the day Blood 01/26/2023 8:20 PM EDT 01/26/2023 8:20 PM EDT Mendel Luna MD POINT OF CARE TEST O RDERABLES Performing Organization Address [facility] Co de Phone Number [facility] [place] [address] * POCT Glucose (01/26/2023 4:04 PM EDT) POC Glucose 152 65 - 199 mg/dL [facility] Comment: Supplemental ranges: <140 mg/dL before meals <180 mg/dL all other times of the day Blood 01/26/2023 4:04 PM EDT 01/26/2023 4:04 PM EDT Mendel Luna MD POINT OF CARE TEST O RDERAMARCY Performing Organization Address [facility] Co de Phone Number [facility] [place] [address] * POCT Glucose (01/26/2023 11:42 AM EDT) POC Glucose 175 65 - 199 mg/dL [facility] Comment: Supplemental ranges: <140 mg/dL before meals <180 mg/dL all other times of the day Blood 01/26/2023 11:4 2 AM EDT 01/26/2023 11:42 AM EDT Mendel Luna MD POINT OF CARE TEST O RDERABLES [facility] [place] [address] * POCT Glucose (01/26/2023 7:51 AM EDT) Pathologist [facility] POC Glucose 137 65 - 199 mg/dL [facility] Comment: Supplemental ranges: <140 mg/dL before meals <180 mg/dL all other times of the day Blood 01/26/2023 7:51 AM EDT 01/26/2023 7:51 AM EDT Mendel Luna MD POINT OF CARE TEST O RDERABLES [facility] [place] [address] * Differential, Automated (01/26/2023 3:11 AM EDT) Neutrophils % 71.1 % [facility] Neutr Abs (ANC) 5.94 1.70 - 6.10 x10(3)/[facility] LAB[facility] Lymphocytes % 15.3 % [facility] Lymphocytes Abs 1.3 0.9 - 3.2 x10(3)/[facility] LAB[facility]ORY Monocytes % 8.9 % [facility] Monocyte Abs 0.7 0.3 - 0.9 x10(3)/[facility] Eosinophils % 3.6 % [facility] Eosinophils Abs 0.3 0.0 - 0.4 x10(3)/[facility] Basophils % 0.7 % [facility] Basophils Abs 0.1 0.0 - 0.1 x10(3)/[facility] Immature Gran % 0.40 % [facility] Comment: Immature granulocytes(IG's)percentage and absolute count will include metamyelocytes, myelocytes, and promyelocytes. Blood smears from CBCs yielding IG's will be scanned manually for concordance. If this scan disagrees with the automated IG or if promyelocytes are noted, a manual differential will be performed. Angelica Gran Abs 0.03 0.00 - 0.04 x10(3)/[facility] Blood 01/26/2023 3:11 AM EDT 01/26/2023 3:40 AM EDT Narrative Resulting Agency Comment Spec In Lab Kyle Mckeon MD HEMATOLOGY ORDERABLE S [facility] [place] [address] * (ABNORMAL) Hemogram (01/26/2023 3:11 AM EDT) WBC 8.4 4.0 - 9.5 x10(3)/[facility] LABORATORY RBC 3.25(L) 4.58 - 5.54 x10(6)/[facility] LABORATORY Hemoglobin 10.2(L) 13.7 - 16.5 g/dL [facility] Hematocrit 29.8(L) 40.5 - 48.5 % [facility] MCV 91.7 82.9 - 93.1 fL [facility] MCH 31.4 27.5 - 32.1 pg [facility] MCHC 34.2 32.0 - 35.7 g/dL [facility] Platelets 161 145 - 357 x10(3)/[facility] RDWSD 43.0 36.0 - 45.0 fL [facility] RDWCV 13.0 11.4 - 13.8 % [facility] MPV 13.0(H) 7.6 - 12.9 fL [facility] nRBC % Auto 0.0 % [facility] nRBC Abs Auto 0.000 0.000 - 0.000 x10(3)/mcL [facility] Blood 01/26/2023 3:11 AM EDT 01/26/2023 3:40 AM EDT Narrative Resulting Agency Comment Spec In Lab Kyle Mckeon MD HEMATOLOGY ORDERABLE S Performing Organization Address [facility] Co de Phone Number [facility] [place] [address] * (ABNORMAL) Phosphorus (01/26/2023 3:11 AM EDT) Phosphorus 4.6(H) 2.5 - 4.5 mg/dL [facility] Blood 01/26/2023 3:11 AM EDT 01/26/2023 3:39 AM EDT Narrative Resulting Agency Comment Spec In Lab Tanya Seaman MD CHEMISTRY ORDERABL ES Performing Organization Address [facility] Co de Phone Number [facility] [place] [address] * Magnesium (01/26/2023 3:11 AM EDT) Magnesium 0.97 0.69 - 1.07 mmol/L [facility] Blood 01/26/2023 3:11 AM EDT 01/26/2023 3:39 AM EDT Narrative Resulting Agency Comment Spec In Lab Tanya Seaman MD CHEMISTRY ORDERABL ES Performing Organization Address City/[facility]/ZIP Co de Phone Number [facility] [place] [address] * (ABNORMAL) Basic Metabolic Panel (non-fasting) (01/26/2023 3:11 AM EDT) Glucose Lvl 127 65 - 199 mg/dL [facility] Comment:Diabetes: >=200 mg/d L plus symptoms BUN 77(H) 10 - 20 mg/dL [facility] Creatinine 4.91(H) 0.80 - 1.50 mg/dL [facility] Sodium 139 135 - 145 mmol/L [facility] Potassium 4.8 3.5 - 5.0 mmol/L [facility] Comment: Please note: ??Patients with WBC >100,000 may have falsely elevated Potassium levels. ??For accurate Potassium quantification in these patients send serum separator tube (gold top) for subsequent determinations. ??Contact the Clinical Chemistry Laboratory if there are any questions. Chloride 105 98 - 107 mmol/L [facility] CO2 18(L) 22 - 31 mmol/L [facility] Anion Gap 16(H) 5 - 15 mmol/L [facility] Calcium 9.3 8.5 - 10.5 mg/dL [facility] Estimated GFR 12(L) >=60 mL/min/1. 73 m?? [facility] Comment: This patient's estimated GFR [...] MD CHEMISTRY ORDERABL ES Performing Organization Address [facility] de Phone Number [facility] [place] [address] * POCT Glucose (01/25/2023 9:24 PM EDT) POC Glucose 181 65 - 199 mg/dL [facility] Comment: Supplemental ranges: <140 mg/dL before meals <180 mg/dL all other times of the day Blood 01/25/2023 9:24 PM EDT 01/25/2023 9:24 PM EDT Mendel Luna MD POINT OF CARE TEST O RDERABLES Performing Organization Address [facility] de Phone Number [facility] [place] [address] * POCT Glucose (01/25/2023 4:46 PM EDT) POC Glucose 153 65 - 199 mg/dL [facility] Comment: Supplemental ranges: <140 mg/dL before meals <180 mg/dL all other times of the day Blood 01/25/2023 4:46 PM EDT 01/25/2023 4:46 PM EDT Mendel Luna MD POINT OF CARE TEST O RDERABLES Performing Organization Address [facility] de Phone Number [facility] [place] [address] * US Retroperitoneal Complete (01/25/2023 3:50 PM EDT) Anatomical Region Laterality Modality Abdomen Ultrasound 01/25/2023 3:47 PM EDT Impressions 01/25/2023 4:11 PM EDT 1. ??No significant interval change in mild right pelvicaliectasis. 2. ??No left-sided collecting system dilatation. 3. ??Normal bilateral renal cortical thickness and corticomedullary differentiation. 4. ??Bladder not distended for evaluation, Benedict catheter in place. Thank you for letting us participate in the care of this patient. If you are a health care provider and have any questions regarding this report, please contact the number above. For patients who have questions, please contact the health personal caregiver that requested your imaging first. ?Elsie Garza, [facility] [employer] Electronically Signed Final Report ?? 01/25/2023 04:10 pm Narrative 01/25/2023 4:11 PM EDT Renal ? (Signed Final 01/25/2023 04:10 pm) PATIENT INFO: ID #: ? [id number] ?: ??[birth year] (67 yrs)(M) Name: ? MIGUEL SANCHEZ ? Visit Date: 01/25/2023 03:47 pm PERFORMED BY: Attending: ?Kayla OTT, Elsie Conley Performed By: ? Paola Pritchard RDMS Referred By: ?MENDEL LUNA Location: ? [place] SERVICE(S) PROVIDED: URETRO - Retroperitoneal Complete - [id number] ? [id number] INDICATIONS: 67yo male with CLEM, repeat U/S [...] 01/25/2023 04:10 pm) PATIENT INFO: ID #: [id number] : [birth year] (67 yrs)(M) Name: MIGUEL SANCHEZ Visit Date: 01/25/2023 03:47 pm PERFORMED BY: Attending: Elsie Garza MD Performed By: Paola Pritchard RDMS Referred By: MENDEL LUNA Location: [place] SERVICE(S) PROVIDED: URETRO - Retroperitoneal Complete - [id number] INDICATIONS: 67yo male with CLEM, repeat U/S [...] distended for evaluation, Benedict catheter in place. Thank you for letting us participate in the care of this patient. If you are a health care provider and have any questions regarding this report, please contact the number above. For patients who have questions, please contact the health personal caregiver that requested your imaging first. Elsie Garza, [facility] [employer] Electronically Signed Final Report 01/25/2023 04:10 pm Mendel Luna MD IM US GEN ORDERABLE S * POCT Glucose (01/25/2023 11:20 AM EDT) Pathologist [facility] POC Glucose 182 65 - 199 mg/dL [facility] Comment: Supplemental ranges: <140 mg/dL before meals <180 mg/dL all other times of the day Blood 01/25/2023 11:2 0 AM EDT 01/25/2023 11:20 AM EDT Mendel Luna MD POINT OF CARE TEST O TESSA [facility] [place] [address] * POCT Glucose (01/25/2023 7:44 AM EDT) [facility] POC Glucose 155 65 - 199 mg/dL [facility] Comment: Supplemental ranges: <140 mg/dL before meals <180 mg/dL all other times of the day Blood 01/25/2023 7:44 AM EDT 01/25/2023 7:44 AM EDT Mendel Luna MD POINT OF CARE TEST O TESSA Performing Organization Address City/[facility] Co de Phone Number [facility] [place] [address] * Differential, Automated (01/25/2023 4:06 AM EDT) Pathologist [facility] Neutrophils % 72.7 % [facility] Neutr Abs (ANC) 5.96 1.70 - 6.10 x10(3)/[facility] LABORATORY Lymphocytes % 14.7 % [facility] Lymphocytes Abs 1.2 0.9 - 3.2 x10(3)/[facility] LABORATORY Monocytes % 8.2 % [facility] Monocyte Abs 0.7 0.3 - 0.9 x10(3)/[facility] LABORATORY Eosinophils % 3.5 % [facility] Eosinophils Abs 0.3 0.0 - 0.4 x10(3)/[facility] LABORATORY Basophils % 0.7 % [facility] Basophils Abs 0.1 0.0 - 0.1 x10(3)/[facility] LABORATORY Immature Gran % 0.20 % [facility] Comment: Immature granulocytes(IG's)percentage and absolute count will include metamyelocytes, myelocytes, and promyelocytes. Blood smears from CBCs yielding IG's will be scanned manually for concordance. If this scan disagrees with the automated IG or if promyelocytes are noted, a manual differential will be performed. Angelica Gran Abs 0.02 0.00 - 0.04 x10(3)/[facility] LABORATORY Blood 01/25/2023 4:06 AM EDT 01/25/2023 4:17 AM EDT Narrative Resulting Agency Comment Spec In Lab Kyle Mckeon MD HEMATOLOGY ORDERABLE S Performing Organization Address City/State/[facility] Co de Phone Number [facility] [place] [address] * (ABNORMAL) Hemogram (01/25/2023 4:06 AM EDT) WBC 8.2 4.0 - 9.5 x10(3)/[facility] LABORATORY RBC 3.38(L) 4.58 - 5.54 x10(6)/[facility] LABORATORY Hemoglobin 10.6(L) 13.7 - 16.5 g/dL [facility] Hematocrit 30.7(L) 40.5 - 48.5 % [facility] MCV 90.8 82.9 - 93.1 fL [facility] MCH 31.4 27.5 - 32.1 pg [facility] MCHC 34.5 32.0 - 35.7 g/dL [facility] Platelets 170 145 - 357 x10(3)/[facility] RDWSD 42.1 36.0 - 45.0 fL [facility] RDWCV 12.8 11.4 - 13.8 % [facility] MPV 12.6 7.6 - 12.9 fL [facility] nRBC % Auto 0.0 % [facility] nRBC Abs Auto 0.000 0.000 - 0.000 x10(3)/mcL [facility] Blood 01/25/2023 4:06 AM EDT 01/25/2023 4:17 AM EDT Narrative Resulting Agency Comment Spec In Lab Kyle Mckeon MD HEMATOLOGY ORDERABLE S Performing Organization Address City/[facility]/ZIP Co de Phone Number [facility] [place] [address] * (ABNORMAL) Phosphorus (01/25/2023 4:06 AM EDT) Phosphorus 4.9(H) 2.5 - 4.5 mg/dL [facility] Blood 01/25/2023 4:06 AM EDT 01/25/2023 4:17 AM EDT Narrative Resulting Agency Comment Spec In Lab Tanya Seaman MD CHEMISTRY ORDERABL ES Performing Organization Address [facility] Co de Phone Number [facility] [place] [address] * Magnesium (01/25/2023 4:06 AM EDT) Magnesium 1.00 0.69 - 1.07 mmol/L [facility] Blood 01/25/2023 4:06 AM EDT 01/25/2023 4:17 AM EDT Narrative Resulting Agency Comment Spec In Lab Tanya Seaman MD CHEMISTRY ORDERABL ES Performing Organization Address City/[facility]/ZIP Co de Phone Number [facility] [place] [address] * (ABNORMAL) Basic Metabolic Panel (non-fasting) (01/25/2023 4:06 AM EDT) Glucose Lvl 148 65 - 199 mg/dL [facility] Comment:Diabetes: >=200 mg/d L plus symptoms BUN 78(H) 10 - 20 mg/dL [facility] Creatinine 5.06(H) 0.80 - 1.50 mg/dL [facility] Sodium 139 135 - 145 mmol/L [facility] Potassium 4.5 3.5 - 5.0 mmol/L [facility] Comment: Please note: ??Patients with WBC >100,000 may have falsely elevated Potassium levels. ??For accurate Potassium quantification in these patients send serum separator tube (gold top) for subsequent determinations. ??Contact the Clinical Chemistry Laboratory if there are any questions. Chloride 103 98 - 107 mmol/L [facility] CO2 19(L) 22 - 31 mmol/L [facility] Anion Gap 17(H) 5 - 15 mmol/L [facility] Calcium 9.5 8.5 - 10.5 mg/dL [facility] Estimated GFR 12(L) >=60 mL/min/1. 73 m?? [facility] Comment: This patient's estimated GFR [...] Lab Tanya Seaman MD CHEMISTRY ORDERABL ES [facility] [place] [address] * POCT Glucose (01/24/2023 10:12 PM EDT) POC Glucose 175 65 - 199 mg/dL [facility] Comment: Supplemental ranges: <140 mg/dL before meals <180 mg/dL all other times of the day Blood 01/24/2023 10:1 2 PM EDT 01/24/2023 10:12 PM EDT Mendel Luna MD POINT OF CARE TEST O RDERABLES [facility] [address] * POCT Glucose (01/24/2023 4:41 PM EDT) POC Glucose 157 65 - 199 mg/dL [facility] Comment: Supplemental ranges: <140 mg/dL before meals <180 mg/dL all other times of the day Blood 01/24/2023 4:41 PM EDT 01/24/2023 4:41 PM EDT Mendel Luna MD POINT OF CARE TEST O RDERABLES [facility] [place] [address] * POCT Glucose (01/24/2023 12:10 PM EDT) POC Glucose 177 65 - 199 mg/dL [facility] Comment: Supplemental ranges: <140 mg/dL before meals <180 mg/dL all other times of the day Blood 01/24/2023 12:1 0 PM EDT 01/24/2023 12:10 PM EDT Mendel Luna MD POINT OF CARE TEST O RDERABLES [facility] [address] * POCT Glucose (01/24/2023 7:51 AM EDT) [facility] POC Glucose 175 65 - 199 mg/dL [facility] Comment: Supplemental ranges: <140 mg/dL before meals <180 mg/dL all other times of the day Blood 01/24/2023 7:51 AM EDT 01/24/2023 7:51 AM EDT Mendel Luna MD POINT OF CARE TEST O RDERABLES Performing Organization Address City/[facility] Co de Phone Number [facility] [place] [address] * (ABNORMAL) Phosphorus (01/24/2023 2:56 AM EDT) [facility] Phosphorus 5.0(H) 2.5 - 4.5 mg/dL [facility] Blood 01/24/2023 2:56 AM EDT 01/24/2023 3:06 AM EDT Narrative Resulting Agency Comment Spec In Lab Tanya Seaman MD CHEMISTRY ORDERABL ES Performing Organization Address [facility] Co de Phone Number [facility] [place] [address] * Magnesium (01/24/2023 2:56 AM EDT) [facility] Magnesium 0.94 0.69 - 1.07 mmol/L [facility] Blood 01/24/2023 2:56 AM EDT 01/24/2023 3:06 AM EDT Narrative Resulting Agency Comment Spec In Lab Tanya Seaman MD CHEMISTRY ORDERABL ES Performing Organization Address [facility] Co de Phone Number [facility] [place] [address] * (ABNORMAL) Basic Metabolic Panel (non-fasting) (01/24/2023 2:56 AM EDT) [facility] Glucose Lvl 131 65 - 199 mg/dL [facility] Comment:Diabetes: >=200 mg/d L plus symptoms BUN 80(H) 10 - 20 mg/dL [facility] Creatinine 5.46(H) 0.80 - 1.50 mg/dL [facility] Sodium 139 135 - 145 mmol/L [facility] Potassium 4.5 3.5 - 5.0 mmol/L [facility] Comment: Please note: ??Patients with WBC >100,000 may have falsely elevated Potassium levels. ??For accurate Potassium quantification in these patients send serum separator tube (gold top) for subsequent determinations. ??Contact the Clinical Chemistry Laboratory if there are any questions. Chloride 104 98 - 107 mmol/L [facility] CO2 21(L) 22 - 31 mmol/L [facility] Anion Gap 14 5 - 15 mmol/L [facility] Calcium 9.3 8.5 - 10.5 mg/dL [facility] Estimated GFR 11(L) >=60 mL/min/1. 73 m?? [facility] Comment: This patient's estimated GFR [...] Lab Tanya Seaman MD CHEMISTRY ORDERABL ES [facility] [place] [address] * POCT Glucose (01/23/2023 9:16 PM EDT) POC Glucose 150 65 - 199 mg/dL [facility] Comment: Supplemental ranges: <140 mg/dL before meals <180 mg/dL all other times of the day Blood 01/23/2023 9:16 PM EDT 01/23/2023 9:16 PM EDT Mendel Luna MD POINT OF CARE TEST O RDERABLES Performing Organization Address City/[facility]/ZIP Co de Phone Number [facility] [place] [address] * (ABNORMAL) POCT Glucose (01/23/2023 3:13 PM EDT) POC Glucose 246(H) 65 - 199 mg/dL [facility] Comment: Supplemental ranges: <140 mg/dL before meals <180 mg/dL all other times of the day Blood 01/23/2023 3:13 PM EDT 01/23/2023 3:13 PM EDT Mendel Luna MD POINT OF CARE TEST O RDERABLES Performing Organization Address [facility]/ZIP Co de Phone Number [facility] [place] [address] * POCT Glucose (01/23/2023 11:06 AM EDT) POC Glucose 163 65 - 199 mg/dL [facility] Comment: Supplemental ranges: <140 mg/dL before meals <180 mg/dL all other times of the day Blood 01/23/2023 11:0 6 AM EDT 01/23/2023 11:06 AM EDT Mendel Luna MD POINT OF CARE TEST O RDERABLES [facility] [place] [address] * POCT Glucose (01/23/2023 7:46 AM EDT) POC Glucose 165 65 - 199 mg/dL [facility] Comment: Supplemental ranges: <140 mg/dL before meals <180 mg/dL all other times of the day Blood 01/23/2023 7:46 AM EDT 01/23/2023 7:46 AM EDT Mendel Luna MD POINT OF CARE TEST O RDERABLES [facility] [place] [address] * Differential, Automated (01/23/2023 2:53 AM EDT) Pathologist [facility] Neutrophils % 72.0 % [facility] Neutr Abs (ANC) 5.86 1.70 - 6.10 x10(3)/[facility] LABORATORY Lymphocytes % 13.8 % [facility] Lymphocytes Abs 1.1 0.9 - 3.2 x10(3)/[facility]ORATORY Monocytes % 9.2 % [facility] Monocyte Abs 0.8 0.3 - 0.9 x10(3)/[facility]ORATORY Eosinophils % 4.1 % [facility] Eosinophils Abs 0.3 0.0 - 0.4 x10(3)/[facility]ORATORY Basophils % 0.7 % [facility] Basophils Abs 0.1 0.0 - 0.1 x10(3)/[facility] LABORATORY Immature Gran % 0.20 % [facility] Comment: Immature granulocytes(IG's)percentage and absolute count will include metamyelocytes, myelocytes, and promyelocytes. Blood smears from CBCs yielding IG's will be scanned manually for concordance. If this scan disagrees with the automated IG or if promyelocytes are noted, a manual differential will be performed. Angelica Gran Abs 0.02 0.00 - 0.04 x10(3)/[facility] LABORATORY Blood 01/23/2023 2:53 AM EDT 01/23/2023 3:05 AM EDT Narrative Resulting Agency Comment Spec In Lab Kyle Mckeon MD HEMATOLOGY ORDERABLE S [facility] [place] [address] * (ABNORMAL) Hemogram (01/23/2023 2:53 AM EDT) WBC 8.1 4.0 - 9.5 x10(3)/[facility]ORATORY RBC 3.41(L) 4.58 - 5.54 x10(6)/[facility] Hemoglobin 10.4(L) 13.7 - 16.5 g/dL [facility] Hematocrit 30.7(L) 40.5 - 48.5 % [facility] MCV 90.0 82.9 - 93.1 [facility] MCH 30.5 27.5 - 32.1 pg [facility] MCHC 33.9 32.0 - 35.7 g/dL [facility] Platelets 182 145 - 357 x10(3)/[facility] RDWSD 42.3 36.0 - 45.0 [facility] RDWCV 13.0 11.4 - 13.8 % [facility] MPV 12.1 7.6 - 12.9 [facility] nRBC % Auto 0.0 % [facility] nRBC Abs Auto 0.000 0.000 - 0.000 x10(3)/[facility]ORAT[facility] Blood 01/23/2023 2:53 AM EDT 01/23/2023 3:05 AM EDT Narrative Resulting Agency Comment Spec In Lab Kyle Mckeon MD HEMATOLOGY ORDERABLE S [facility] [place] [address] * (ABNORMAL) Phosphorus (01/23/2023 2:53 AM EDT) Phosphorus 5.8(H) 2.5 - 4.5 mg/dL [facility] Blood 01/23/2023 2:53 AM EDT 01/23/2023 3:05 AM EDT Narrative Resulting Agency Comment Spec In Lab Tanya Seaman MD CHEMISTRY ORDERABL ES Performing Organization Address [facility] Co de Phone Number [facility] [place] [address] * Magnesium (01/23/2023 2:53 AM EDT) Magnesium 0.96 0.69 - 1.07 mmol/L [facility] Blood 01/23/2023 2:53 AM EDT 01/23/2023 3:05 AM EDT Narrative Resulting Agency Comment Spec In Lab Tanya Seaman MD CHEMISTRY ORDERABL ES Performing Organization Address [facility] Co de Phone Number [facility] [place] [address] * (ABNORMAL) Basic Metabolic Panel (non-fasting) (01/23/2023 2:53 AM EDT) Glucose Lvl 131 65 - 199 mg/dL [facility] Comment:Diabetes: >=200 mg/d L plus symptoms BUN 81(H) 10 - 20 mg/dL [facility] Creatinine 5.47(H) 0.80 - 1.50 mg/dL [facility] Sodium 139 135 - 145 mmol/L [facility] Potassium 4.4 3.5 - 5.0 mmol/L [facility] Comment: Please note: ??Patients with WBC >100,000 may have falsely elevated Potassium levels. ??For accurate Potassium quantification in these patients send serum separator tube (gold top) for subsequent determinations. ??Contact the Clinical Chemistry Laboratory if there are any questions. Chloride 105 98 - 107 mmol/L [facility] CO2 20(L) 22 - 31 mmol/L [facility] Anion Gap 14 5 - 15 mmol/L [facility] Calcium 9.2 8.5 - 10.5 mg/dL [facility] Estimated GFR 11(L) >=60 mL/min/1. 73 m?? [facility] Comment: This patient's estimated GFR [...] MD CHEMISTRY ORDERABL ES Performing Organization Address [facility]/ZIP Co de Phone Number [facility] [place] [address] * (ABNORMAL) POCT Glucose (01/22/2023 7:28 PM EDT) POC Glucose 237(H) 65 - 199 mg/dL [facility] Comment: Supplemental ranges: <140 mg/dL before meals <180 mg/dL all other times of the day Blood 01/22/2023 7:28 PM EDT 01/22/2023 7:28 PM EDT Mendel Luna MD POINT OF CARE TEST O RDERABLES Performing Organization Address City/[facility]/ZIP Co de Phone Number [facility] [place] [address] * POCT Glucose (01/22/2023 5:30 PM EDT) POC Glucose 130 65 - 199 mg/dL [facility] Comment: Supplemental ranges: <140 mg/dL before meals <180 mg/dL all other times of the day Blood 01/22/2023 5:30 PM EDT 01/22/2023 5:30 PM EDT Mendel Luna MD POINT OF CARE TEST O RDERABLES [facility] [address] * CARDIAC CATHETERIZATION (01/22/2023 5:10 PM EDT) Anatomical Region Laterality Modality Other Narrative 01/22/2023 5:07 PM EDT ?[facility] ? Cardiac Catheterization/Intervention Report ? Patient Name: Miguel Sanchez ? Procedure Date: 01/22/2023 ? A #: [id number] ? Primary Physician: Morris, Layton P ? Case #: [id number] ? File Name: [id number] ? Catheterization Order Number: [id number] ? [facility] ? Final Report [place], [place] ? Patient Name: ? Miguel Cook ? ID#: ?[id number] ? : ?1955 ? Procedure Date: ? January 22, 2023 ?Case #: ? [id number] ? Room: ? 5 ? Case Physician: ? Layton Morris M.D. ?Start: ?16:35 ?Fellow: ? Mario Alberto Glasgow M.D. ? Admission: ??01/18/2023 ? Referring Physician: ??Elham Dykes M.D. ? Procedures: ?* Right Heart Catheterization ?* Oximetry ? History ?Miguel Sanchez is a 67 year old man. [...] procedure was Urgent. The indication for ?the pathology lab technician visit is cardiomyopathy. Chest pain symptom assessment [...] right heart catheterization and ?oximetry. ? Layton Morris M.D. ? Electronically Signed by: Layton Morris M.D. ? Report Finalized: 01/22/2023 ??17:03 ? Procedure Note Layton Morris MD - 01/22/2023 [facility] Cardiac Catheterization/Intervention Report Patient Name: Miguel Sanchez Procedure Date: 01/22/2023 A #: [id number] Primary Physician: Layton Morris Case #: [id number] File Name: [id number] Catheterization Order Number: [id number] [facility] FinalReport [place], [place] Patient Name: Miguel Sanchez ID#:[id number] :1955 Procedure Date: January 22, 2023 Case [...] patient was designated as ASA Class III. [facility] clinical frailty scale is 5: Mildly Frail. Diagnostic Tests: Medications Prior to Procedure: Angiotensin Converting Enzyme Inhibitor, Aspirin, Beta Blockerand Statin. Indications for Diagnostic Cath: The priority of the diagnostic procedure was Urgent. The indicationfor the pathology lab technician visit is cardiomyopathy. Chest pain symptom assessmentwas: [...] POC Glucose 165 65 - 199 mg/dL [facility] Comment: Supplemental ranges: <140 mg/dL before meals <180 mg/dL all other times of the day Blood 01/22/2023 12:3 5 PM EDT 01/22/2023 12:35 PM EDT Mendel Luna MD POINT OF CARE TEST O RDERABLES Performing Organization Address City/[facility]/ZIP Co de Phone Number [facility] [place] [address] * POCT Glucose (01/22/2023 7:52 AM EDT) POC Glucose 145 65 - 199 mg/dL [facility] Comment: Supplemental ranges: <140 mg/dL before meals <180 mg/dL all other times of the day Blood 01/22/2023 7:52 AM EDT 01/22/2023 7:52 AM EDT Chris Lim MD POINT OF CARE TEST O RDERABLES Performing Organization Address [facility]/ZIP Co de Phone Number [facility] [place] [address] * Differential, Automated (01/22/2023 2:42 AM EDT) Neutrophils % 73.7 % [facility] Neutr Abs (ANC) 6.10 1.70 - 6.10 x10(3)/[facility] Lymphocytes % 12.5 % [facility] Lymphocytes Abs 1.0 0.9 - 3.2 x10(3)/[facility] Monocytes % 8.8 % [facility] Monocyte Abs 0.7 0.3 - 0.9 x10(3)/[facility] Eosinophils % 4.1 % [facility] Eosinophils Abs 0.3 0.0 - 0.4 x10(3)/[facility] Basophils % 0.7 % [facility] Basophils Abs 0.1 0.0 - 0.1 x10(3)/[facility] Immature Gran % 0.20 % [facility] Comment: Immature granulocytes(IG's)percentage and absolute count will include metamyelocytes, myelocytes, and promyelocytes. Blood smears from CBCs yielding IG's will be scanned manually for concordance. If this scan disagrees with the automated IG or if promyelocytes are noted, a manual differential will be performed. Angelica Gran Abs 0.02 0.00 - 0.04 x10(3)/[facility] Blood 01/22/2023 2:42 AM EDT 01/22/2023 3:03 AM EDT Narrative Resulting Agency Comment Spec In Lab Kyle Mckeon MD HEMATOLOGY ORDERABLE S Performing Organization Address City/State/[facility] Co de Phone Number [facility] [place] [address] * (ABNORMAL) Hemogram (01/22/2023 2:42 AM EDT) WBC 8.3 4.0 - 9.5 x10(3)/[facility] LAB[facility]ATORY RBC 3.41(L) 4.58 - 5.54 x10(6)/[facility] Hemoglobin 10.3(L) 13.7 - 16.5 g/dL [facility] Hematocrit 30.8(L) 40.5 - 48.5 % [facility] MCV 90.3 82.9 - 93.1 fL [facility] MCH 30.2 27.5 - 32.1 pg [facility] MCHC 33.4 32.0 - 35.7 g/dL [facility] Platelets 183 145 - 357 x10(3)/[facility]ORY RDWSD 42.0 36.0 - 45.0 fL [facility] RDWCV 12.9 11.4 - 13.8 % [facility] MPV 12.1 7.6 - 12.9 fL [facility] nRBC % Auto 0.0 % [facility] nRBC Abs Auto 0.000 0.000 - 0.000 x10(3)/mcL [facility] Blood 01/22/2023 2:42 AM EDT 01/22/2023 3:03 AM EDT Narrative Resulting Agency Comment Spec In Lab Kyle Mckeon MD HEMATOLOGY ORDERABLE S Performing Organization Address [facility]/ZIP Co de Phone Number [facility] [place] [address] * (ABNORMAL) Phosphorus (01/22/2023 2:42 AM EDT) Phosphorus 5.8(H) 2.5 - 4.5 mg/dL [facility] Blood 01/22/2023 2:42 AM EDT 01/22/2023 3:03 AM EDT Narrative Resulting Agency Comment Spec In Lab Tanya Seaman MD CHEMISTRY ORDERABL ES Performing Organization Address [facility] Co de Phone Number [facility] [place] [address] * Magnesium (01/22/2023 2:42 AM EDT) Magnesium 0.97 0.69 - 1.07 mmol/L [facility] Blood 01/22/2023 2:42 AM EDT 01/22/2023 3:03 AM EDT Narrative Resulting Agency Comment Spec In Lab Tanya Seaman MD CHEMISTRY ORDERABL ES Performing Organization Address [facility]/ZIP Co de Phone Number [facility] [place] [address] * (ABNORMAL) Basic Metabolic Panel (non-fasting) (01/22/2023 2:42 AM EDT) Glucose Lvl 153 65 - 199 mg/dL [facility] Comment:Diabetes: >=200 mg/d L plus symptoms BUN 79(H) 10 - 20 mg/dL [facility] Creatinine 5.86(H) 0.80 - 1.50 mg/dL [facility] Sodium 138 135 - 145 mmol/L [facility] Potassium 4.2 3.5 - 5.0 mmol/L [facility] Comment: Please note: ??Patients with WBC >100,000 may have falsely elevated Potassium levels. ??For accurate Potassium quantification in these patients send serum separator tube (gold top) for subsequent determinations. ??Contact the Clinical Chemistry Laboratory if there are any questions. Chloride 104 98 - 107 mmol/L [facility] CO2 20(L) 22 - 31 mmol/L [facility] Anion Gap 14 5 - 15 mmol/L [facility] Calcium 9.2 8.5 - 10.5 mg/dL [facility] Estimated GFR 10(L) >=60 mL/min/1. 73 m?? [facility] Comment: This patient's estimated GFR [...] Lab Tanya Seaman MD CHEMISTRY ORDERABL ES [facility] [place] [address] * C3 Complement (01/22/2023 2:42 AM EDT) C3 Complement 126 90 - 180 mg/dL [facility] Blood 01/22/2023 2:42 AM EDT 01/22/2023 3:03 AM EDT Narrative Resulting Agency Comment Spec In Lab Chris Lim MD CHEMISTRY ORDERABLES [facility] [place] [address] * POCT Glucose (01/21/2023 6:41 PM EDT) POC Glucose 199 65 - 199 mg/dL [facility] Comment: Supplemental ranges: <140 mg/dL before meals <180 mg/dL all other times of the day Blood 01/21/2023 6:41 PM EDT 01/21/2023 6:41 PM EDT Chris Lim MD POINT OF CARE TEST O RDERAMARCY Performing Organization Address [facility]/ZIP Co de Phone Number [facility] [place] [address] * POCT Glucose (01/21/2023 3:57 PM EDT) POC Glucose 125 65 - 199 mg/dL [facility] Comment: Supplemental ranges: <140 mg/dL before meals <180 mg/dL all other times of the day Blood 01/21/2023 3:57 PM EDT 01/21/2023 3:57 PM EDT Chris Lim MD POINT OF CARE TEST O RDERAMARCY Performing Organization Address City/[facility]/ZIP Co de Phone Number [facility] [place] [address] * (ABNORMAL) POCT Glucose (01/21/2023 11:32 AM EDT) POC Glucose 249(H) 65 - 199 mg/dL [facility] Comment: Supplemental ranges: <140 mg/dL before meals <180 mg/dL all other times of the day Blood 01/21/2023 11:3 2 AM EDT 01/21/2023 11:32 AM EDT Chris Lim MD POINT OF CARE TEST O TESSA Performing Organization Address [facility] de Phone Number [facility] [place] [address] * (ABNORMAL) POCT Glucose (01/21/2023 9:38 AM EDT) POC Glucose 233(H) 65 - 199 mg/dL [facility] Comment: Supplemental ranges: <140 mg/dL before meals <180 mg/dL all other times of the day Blood 01/21/2023 9:38 AM EDT 01/21/2023 9:38 AM EDT Chris Lim MD POINT OF CARE TEST Loco ZARATE Performing Organization Address [facility] de Phone Number [facility] [place] [address] * EKG 12 Lead (01/21/2023 8:33 AM EDT) Ventricular rate 74 BPM MUSE SYSTEM Atrial Rate 74 BPM MUSE SYSTEM P-R Interval 180 ms MUSE SYSTEM QRS Duration 126 ms MUSE SYSTEM Q-T Interval 454 ms MUSE SYSTEM QTC Calculated (Bezet) 503 ms MUSE SYSTEM Calculated P Menan 32 degrees MUSE SYSTEM Calculated R Menan -35 degrees MUSE SYSTEM Calculated T Menan 97 degrees MUSE SYSTEM INTERPRETATION Normal sinus rhythm Left axis deviation Non-specific intra-ventricu lar conduction block Nonspecific T wave abnormality Abnormal ECG When compared with ECG of 18-JAN-2023 18:52, No significant change was found Confirmed by fellow Lacey Oliveros ([id number]) on 01/23/2023 10:03:20 AM Confirmed by MD Gonzalez David ([id number]) on 01/24/2023 8:22:03 AM MUSE SYSTEM 01/21/2023 8:33 AM EDT 01/24/2023 8:22 AM EDT Tanya Seaman MD ECG ORDERABLES MUSE SYSTEM * POCT Glucose (01/21/2023 8:05 AM EDT) Pathologist [facility] POC Glucose 178 65 - 199 mg/dL [facility] Comment: Supplemental ranges: <140 mg/dL before meals <180 mg/dL all other times of the day Blood 01/21/2023 8:05 AM EDT 01/21/2023 8:05 AM EDT Chris Lim MD POINT OF CARE TEST O RDERABLES Performing Organization Address City/[facility]/ZIP Co de Phone Number [facility] [place] [address] * Differential, Automated (01/21/2023 2:42 AM EDT) Pathologist [facility] Neutrophils % 70.7 % [facility] Neutr Abs (ANC) 5.75 1.70 - 6.10 x10(3)/[facility] Lymphocytes % 14.5 % [facility] Lymphocytes Abs 1.2 0.9 - 3.2 x10(3)/[facility] Monocytes % 9.1 % [facility] Monocyte Abs 0.7 0.3 - 0.9 x10(3)/[facility]ORY Eosinophils % 4.6 % [facility] Eosinophils Abs 0.4 0.0 - 0.4 x10(3)/[facility] LAB[facility]ATORY Basophils % 0.7 % [facility] Basophils Abs 0.1 0.0 - 0.1 x10(3)/[facility] LAB[facility]ATORY Immature Gran % 0.40 % [facility] Comment: Immature granulocytes(IG's)percentage and absolute count will include metamyelocytes, myelocytes, and promyelocytes. Blood smears from CBCs yielding IG's will be scanned manually for concordance. If this scan disagrees with the automated IG or if promyelocytes are noted, a manual differential will be performed. Angelica Gran Abs 0.03 0.00 - 0.04 x10(3)/[facility] LAB[facility]ATORY Blood 01/21/2023 2:42 AM EDT 01/21/2023 2:59 AM EDT Narrative Resulting Agency Comment Spec In Lab Kyle Mckeon MD HEMATOLOGY ORDERABLE S [facility] [place] [address] * (ABNORMAL) Hemogram (01/21/2023 2:42 AM EDT) WBC 8.1 4.0 - 9.5 x10(3)/[facility]ORY RBC 3.59(L) 4.58 - 5.54 x10(6)/[facility]ORY Hemoglobin 11.1(L) 13.7 - 16.5 g/dL [facility] Hematocrit 32.4(L) 40.5 - 48.5 % [facility] MCV 90.3 82.9 - 93.1 fL [facility] MCH 30.9 27.5 - 32.1 pg [facility] MCHC 34.3 32.0 - 35.7 g/dL [facility] Platelets 202 145 - 357 x10(3)/[facility]ORY RDWSD 42.5 36.0 - 45.0 fL [facility] RDWCV 12.8 11.4 - 13.8 % [facility] MPV 12.3 7.6 - 12.9 fL [facility] nRBC % Auto 0.0 % [facility] nRBC Abs Auto 0.000 0.000 - 0.000 x10(3)/mcL [facility] Blood 01/21/2023 2:42 AM EDT 01/21/2023 2:59 AM EDT Narrative Resulting Agency Comment Spec In Lab Kyle Mckeon MD HEMATOLOGY ORDERABLE S Performing Organization Address [facility]/ZIP Co de Phone Number [facility] [place] [address] * (ABNORMAL) Phosphorus (01/21/2023 2:42 AM EDT) Phosphorus 5.3(H) 2.5 - 4.5 mg/dL [facility] Blood 01/21/2023 2:42 AM EDT 01/21/2023 2:58 AM EDT Narrative Resulting Agency Comment Spec In Lab Tanya Seaman MD CHEMISTRY ORDERABL ES Performing Organization Address [facility] Co de Phone Number [facility] [place] [address] * Magnesium (01/21/2023 2:42 AM EDT) Magnesium 0.99 0.69 - 1.07 mmol/L [facility] Blood 01/21/2023 2:42 AM EDT 01/21/2023 2:58 AM EDT Narrative Resulting Agency Comment Spec In Lab Tanya Seaman MD CHEMISTRY ORDERABL ES Performing Organization Address [facility] Co de Phone Number [facility] [place] [address] * (ABNORMAL) Basic Metabolic Panel (non-fasting) (01/21/2023 2:42 AM EDT) Glucose Lvl 120 65 - 199 mg/dL [facility] Comment:Diabetes: >=200 mg/d L plus symptoms BUN 72(H) 10 - 20 mg/dL [facility] Creatinine 5.70(H) 0.80 - 1.50 mg/dL [facility] Sodium 140 135 - 145 mmol/L [facility] Potassium 4.2 3.5 - 5.0 mmol/L [facility] Comment: Please note: ??Patients with WBC >100,000 may have falsely elevated Potassium levels. ??For accurate Potassium quantification in these patients send serum separator tube (gold top) for subsequent determinations. ??Contact the Clinical Chemistry Laboratory if there are any questions. Chloride 100 98 - 107 mmol/L [facility] CO2 20(L) 22 - 31 mmol/L [facility] Anion Gap 20(H) 5 - 15 mmol/L [facility] Calcium 9.3 8.5 - 10.5 mg/dL [facility] Estimated GFR 10(L) >=60 mL/min/1. 73 m?? [facility] Comment: This patient's estimated GFR [...] Lab Tanya Seaman MD CHEMISTRY ORDERABL ES [facility] [place] [address] * POCT Glucose (01/20/2023 7:45 PM EDT) POC Glucose 158 65 - 199 mg/dL [facility] Comment: Supplemental ranges: <140 mg/dL before meals <180 mg/dL all other times of the day Blood 01/20/2023 7:45 PM EDT 01/20/2023 7:45 PM EDT Chris Lim MD POINT OF CARE TEST O RDERABLES [facility] [place] [address] * POCT Glucose (01/20/2023 4:38 PM EDT) POC Glucose 96 65 - 199 mg/dL [facility] Comment: Supplemental ranges: <140 mg/dL before meals <180 mg/dL all other times of the day Blood 01/20/2023 4:38 PM EDT 01/20/2023 4:38 PM EDT Chris Lim MD POINT OF CARE TEST O RDERAMARCY Performing Organization Address [facility]/ZIP Co de Phone Number [facility] [place] [address] * POCT Glucose (01/20/2023 4:14 PM EDT) POC Glucose 101 65 - 199 mg/dL [facility] Comment: Supplemental ranges: <140 mg/dL before meals <180 mg/dL all other times of the day Blood 01/20/2023 4:14 PM EDT 01/20/2023 4:14 PM EDT Chris Lim MD POINT OF CARE TEST O RDERAMARCY Performing Organization Address City/[facility]/ZIP Co de Phone Number [facility] [place] [address] * Hepatitis C Antibody (01/20/2023 3:23 PM EDT) Hepatitis C Ab Negative Negative [facility] Blood 01/20/2023 3:23 PM EDT 01/20/2023 3:28 PM EDT Narrative Resulting Agency Comment Spec In Lab Austin Sosa MD IMMUNOLOGY ORDERABLE S Performing Organization Address City/[facility]/ZIP Co de Phone Number [facility] [place] [address] * Hepatitis B Core Antibody, Total (01/20/2023 3:23 PM EDT) Hep B Core Ab Negative Negative [facility] Blood 01/20/2023 3:23 PM EDT 01/20/2023 3:28 PM EDT Narrative Resulting Agency Comment Spec In Lab Chris Lim MD CHEMISTRY ORDERABLES Performing Organization Address [facility] Co de Phone Number [facility] [place] [address] * Hepatitis B Surface Antibody (01/20/2023 3:23 PM EDT) HepB Surface Ab Quant <3.5 IU/L [facility] Comment: HepB Surface Ab Quant: Unvaccinated: < 8.5 IU/L Vaccinated: >= 11.5 IU/L HepB Surface Ab Negative [facility] Comment: Patient is presumed to be not vaccinated or immune to HBV infection. Expected Results: Vaccinated: Positive Unvaccinated: Negative Blood 01/20/2023 3:23 PM EDT 01/20/2023 3:28 PM EDT Narrative Resulting Agency Comment Spec In Lab Chris Lim MD IMMUNOLOGY ORDERABLE S Performing Organization Address City/[facility]/ZIP Co de Phone Number [facility] [place] [address] * HIV Screen, 4th Generation (MC/CGP/APD/NLH) (01/20/2023 3:23 PM EDT) HIV-1/2 Ab and Ag Negative Negative [facility] Comment: This 4th Generation HIV [...] HIV Comment Low Risk of HIV Infection [facility] Blood 01/20/2023 3:23 PM EDT 01/20/2023 3:28 PM EDT Narrative Resulting Agency Comment Spec In Lab Chris Lim MD IMMUNOLOGY ORDERABLE S Performing Organization Address [facility]/ZIP Co de Phone Number [facility] [place] [address] * (ABNORMAL) POCT Glucose (01/20/2023 11:33 AM EDT) POC Glucose 206(H) 65 - 199 mg/dL [facility] Comment: Supplemental ranges: <140 mg/dL before meals <180 mg/dL all other times of the day Blood 01/20/2023 11:3 3 AM EDT 01/20/2023 11:33 AM EDT Chris Lim MD POINT OF CARE TEST O RDERABLES Performing Organization Address [facility] Co de Phone Number [facility] [place] [address] * POCT Glucose (01/20/2023 7:24 AM EDT) POC Glucose 152 65 - 199 mg/dL [facility] Comment: Supplemental ranges: <140 mg/dL before meals <180 mg/dL all other times of the day Blood 01/20/2023 7:24 AM EDT 01/20/2023 7:24 AM EDT Chris Lim MD POINT OF CARE TEST O RDERABLES Performing Organization Address City/[facility]/ZIP Co de Phone Number [facility] [place] [address] * Immunoglobulins, Quantitative (01/20/2023 3:26 AM EDT) [facility] IgG 880 700 - 1,600 mg/dL [facility] Comment: Pediatric Reference Intervals obtained from the [employer] Reference Interval project. http://www.[employer].ca/caliperproject/index.html IgA 286 70 - 400 mg/dL [facility] IgM 72 40 - 230 mg/dL [facility] Blood Venous Draw / Unknown 01/20/2023 3:26 AM EDT 01/20/2023 3:44 AM EDT Narrative Resulting Agency Comment Spec In Lab Deonte Lugo MD CHEMISTRY ORDERABLE S Performing Organization Address [facility]/ZIP Co de Phone Number [facility] [place] [address] * Immunofixation Electrophoresis (01/20/2023 3:26 AM EDT) [facility] DOROTEO See Note [facility] Comment: No specific abnormality observed. Dr. Arnulfo Moore 01/23/2023 See scanned report. Blood Venous Draw / Unknown 01/20/2023 3:26 AM EDT 01/20/2023 3:44 AM EDT Narrative Resulting Agency Comment Spec In Lab Deonte Lugo MD CHEMISTRY ORDERABLE S Performing Organization Address City/[facility]/ZIP Co de Phone Number [facility] [place] [address] * Protein Electrophoresis, serum (01/20/2023 3:26 AM EDT) [facility] Total Prot Elec 6.5 6.1 - 8.0 g/dL [facility] Albumin Elect 4.11 3.20 - 5.20 g/dL [facility] Alpha1-Globulin 0.25 0.10 - 0.30 g/dL [facility] Alpha2-Globulin 0.75 0.40 - 0.90 g/dL [facility] Beta Globulin 0.68 0.50 - 1.00 g/dL [facility] Gamma Globulin 0.71 0.50 - 1.30 g/dL [facility] M1 Band Comments Below None Detected [facility] SPEP Comments See Note [facility] Comment: Serum protein electrophoresis (PEP) [...] MD CHEMISTRY ORDERABLE S Performing Organization Address [facility] Co de Phone Number [facility] [place] [address] * C4 Complement (01/20/2023 3:26 AM EDT) C4 Complement 31 10 - 40 mg/dL [facility] Blood Venous Draw / Unknown 01/20/2023 3:26 AM EDT 01/20/2023 3:44 AM EDT Narrative Resulting Agency Comment Spec In Lab Deonte uLgo MD CHEMISTRY ORDERABLE S Performing Organization Address City/[facility] Co de Phone Number [facility] [place] [address] * (ABNORMAL) Free Light Chains, Serum (01/20/2023 3:26 AM EDT) [place] Free Light Chain 8.16(H) 0.72 - 2.75 mg/dL [facility] Lambda Free Light Chain 4.53(H) 0.57 - 2.15 mg/dL [facility] [place] Lambda FLC Ratio 1.8013 0.4000 - 2.5800 [facility] Blood Venous Draw / Unknown 01/20/2023 3:26 AM EDT 01/20/2023 3:44 AM EDT Narrative Resulting Agency Comment Spec In Lab Deonte Lugo MD CHEMISTRY ORDERABLE S [facility] [place] [address] * Differential, Automated (01/20/2023 3:26 AM EDT) Neutrophils % 75.0 % [facility] Neutr Abs (ANC) 6.04 1.70 - 6.10 x10(3)/[facility] Lymphocytes % 12.2 % [facility] Lymphocytes Abs 1.0 0.9 - 3.2 x10(3)/[facility] Monocytes % 8.6 % [facility] Monocyte Abs 0.7 0.3 - 0.9 x10(3)/[facility] Eosinophils % 3.3 % [facility] Eosinophils Abs 0.3 0.0 - 0.4 x10(3)/[facility] Basophils % 0.7 % [facility] Basophils Abs 0.1 0.0 - 0.1 x10(3)/[facility] Immature Gran % 0.20 % [facility] Comment: Immature granulocytes(IG's)percentage and absolute count will include metamyelocytes, myelocytes, and promyelocytes. Blood smears from CBCs yielding IG's will be scanned manually for concordance. If this scan disagrees with the automated IG or if promyelocytes are noted, a manual differential will be performed. Angelica Gran Abs 0.02 0.00 - 0.04 x10(3)/[facility] Blood 01/20/2023 3:26 AM EDT 01/20/2023 3:42 AM EDT Narrative Resulting Agency Comment Spec In Lab Kyle Mckeon MD HEMATOLOGY ORDERABLE S [facility] [place] [address] * (ABNORMAL) Hemogram (01/20/2023 3:26 AM EDT) WBC 8.1 4.0 - 9.5 x10(3)/[facility] RBC 3.54(L) 4.58 - 5.54 x10(6)/[facility] Hemoglobin 10.8(L) 13.7 - 16.5 g/dL [facility] Hematocrit 32.5(L) 40.5 - 48.5 % [facility] MCV 91.8 82.9 - 93.1 [facility] MCH 30.5 27.5 - 32.1 pg [facility] MCHC 33.2 32.0 - 35.7 g/dL [facility] Platelets 202 145 - 357 x10(3)/[facility] RDWSD 42.9 36.0 - 45.0 [facility] RDWCV 12.7 11.4 - 13.8 % [facility] MPV 11.6 7.6 - 12.9 [facility] nRBC % Auto 0.0 % [facility] nRBC Abs Auto 0.000 0.000 - 0.000 x10(3)/[facility] Blood 01/20/2023 3:26 AM EDT 01/20/2023 3:42 AM EDT Narrative Resulting Agency Comment Spec In Lab Kyle Mckeon MD HEMATOLOGY ORDERABLE S [facility] [place] [address] * (ABNORMAL) Phosphorus (01/20/2023 3:26 AM EDT) Phosphorus 4.7(H) 2.5 - 4.5 mg/dL [facility] Blood 01/20/2023 3:26 AM EDT 01/20/2023 3:42 AM EDT Narrative Resulting Agency Comment Spec In Lab Tanya Seaman MD CHEMISTRY ORDERABL ES Performing Organization Address [facility] Co de Phone Number [facility] [place] [address] * Magnesium (01/20/2023 3:26 AM EDT) Magnesium 0.95 0.69 - 1.07 mmol/L [facility] Blood 01/20/2023 3:26 AM EDT 01/20/2023 3:42 AM EDT Narrative Resulting Agency Comment Spec In Lab Tanya Seaman MD CHEMISTRY ORDERABL ES Performing Organization Address [facility] Co de Phone Number [facility] [place] [address] * (ABNORMAL) Basic Metabolic Panel (non-fasting) (01/20/2023 3:26 AM EDT) Glucose Lvl 109 65 - 199 mg/dL [facility] Comment:Diabetes: >=200 mg/d L plus symptoms BUN 67(H) 10 - 20 mg/dL [facility] Creatinine 5.79(H) 0.80 - 1.50 mg/dL [facility] Sodium 139 135 - 145 mmol/L [facility] Potassium 4.5 3.5 - 5.0 mmol/L [facility] Comment: Please note: ??Patients with WBC >100,000 may have falsely elevated Potassium levels. ??For accurate Potassium quantification in these patients send serum separator tube (gold top) for subsequent determinations. ??Contact the Clinical Chemistry Laboratory if there are any questions. Chloride 102 98 - 107 mmol/L [facility] CO2 20(L) 22 - 31 mmol/L [facility] Anion Gap 17(H) 5 - 15 mmol/L [facility] Calcium 8.8 8.5 - 10.5 mg/dL [facility] Estimated GFR 10(L) >=60 mL/min/1. 73 m?? [facility] Comment: This patient's estimated GFR [...] MD CHEMISTRY ORDERABL ES Performing Organization Address City/[facility]/ZIP Co de Phone Number [facility] [place] [address] * (ABNORMAL) Ferritin (01/20/2023 3:26 AM EDT) [facility] Signature Ferritin 478(H) 30 - 400 ng/mL [facility] Comment: Pediatric reference ranges [place] [facility] [place] interpret with caution. Reference ranges for females greater than 50 years of age approach values for men, i.e., 30-400 ng/mL. Blood 01/20/2023 3:26 AM EDT 01/20/2023 3:42 AM EDT Narrative Resulting Agency Comment Spec In Lab Sixto Morrow MD CHEMISTRY ORDERABLES Performing Organization Address City/[facility]/ZIP Co de Phone Number [facility] [place] [address] * (ABNORMAL) Iron and TIBC (01/20/2023 3:26 AM EDT) Pathologist [facility] Iron 68 45 - 160 mcg/dL [facility] TIBC 229(L) 250 - 450 mcg/dL [facility] Iron Saturation 30 20 - 50 % [facility] Blood 01/20/2023 3:26 AM EDT 01/20/2023 3:42 AM EDT Narrative Resulting Agency Comment Spec In Lab Sixto Morrow MD CHEMISTRY ORDERABLES [facility] [place] [address] * (ABNORMAL) PTH (01/20/2023 3:26 AM EDT) [facility] PTH 401(H) 15 - 65 pg/mL [facility] Blood 01/20/2023 3:26 AM EDT 01/20/2023 3:42 AM EDT Narrative Resulting Agency Comment Spec In Lab Sixto Morrow MD CHEMISTRY ORDERABLES Performing Organization Address City/[facility]/ZIP Co de Phone Number [facility] [place] [address] * (ABNORMAL) Vitamin D, 25-Hydroxy (01/20/2023 3:26 AM EDT) [facility] 25-OH Vit D Total 9(L) 21 - 100 ng/mL [facility] 25-OH Vit D Interp Deficient [facility] Blood 01/20/2023 3:26 AM EDT 01/20/2023 3:42 AM EDT Narrative Resulting Agency Comment Spec In Lab Sixto Morrow MD CHEMISTRY ORDERABLES [facility] [place] [address] * POCT Glucose (01/19/2023 9:33 PM EDT) POC Glucose 112 65 - 199 mg/dL [facility] Comment: Supplemental ranges: <140 mg/dL before meals <180 mg/dL all other times of the day Blood 01/19/2023 9:33 PM EDT 01/19/2023 9:33 PM EDT Chris Lim MD POINT OF CARE TEST O TESSA Performing Organization Address [facility] Co de Phone Number [facility] [place] [address] * POCT Glucose (01/19/2023 4:37 PM EDT) POC Glucose 175 65 - 199 mg/dL [facility] Comment: Supplemental ranges: <140 mg/dL before meals <180 mg/dL all other times of the day Blood 01/19/2023 4:37 PM EDT 01/19/2023 4:37 PM EDT Chris Lim MD POINT OF CARE TEST O TESSA Performing Organization Address [facility] Co de Phone Number [facility] [place] [address] * (ABNORMAL) Basic Metabolic Panel (non-fasting) (01/19/2023 2:15 PM EDT) Glucose Lvl 206(H) 65 - 199 mg/dL [facility] Comment:Diabetes: >=200 mg/d L plus symptoms BUN 59(H) 10 - 20 mg/dL [facility] Creatinine 5.69(H) 0.80 - 1.50 mg/dL [facility] Sodium 140 135 - 145 mmol/L [facility] Potassium 4.4 3.5 - 5.0 mmol/L [facility] Comment: Please note: ??Patients with WBC >100,000 may have falsely elevated Potassium levels. ??For accurate Potassium quantification in these patients send serum separator tube (gold top) for subsequent determinations. ??Contact the Clinical Chemistry Laboratory if there are any questions. Chloride 102 98 - 107 mmol/L [facility] CO2 22 22 - 31 mmol/L [facility] Anion Gap 16(H) 5 - 15 mmol/L [facility] Calcium 9.3 8.5 - 10.5 mg/dL [facility] Estimated GFR 10(L) >=60 mL/min/1. 73 m?? [facility] Comment: This patient's estimated GFR [...] MD CHEMISTRY ORDERABL ES Performing Organization Address City/[facility]/ZIP Co de Phone Number [facility] [place] [address] * POCT Glucose (01/19/2023 11:31 AM EDT) POC Glucose 96 65 - 199 mg/dL [facility] Comment: Supplemental ranges: <140 mg/dL before meals <180 mg/dL all other times of the day Blood 01/19/2023 11:3 1 AM EDT 01/19/2023 11:31 AM EDT Chris Lim MD POINT OF CARE TEST O RDERABLES Performing Organization Address City/[facility]/ZIP Co de Phone Number [facility] [place] [address] * (ABNORMAL) Basic Metabolic Panel (non-fasting) (01/19/2023 10:29 AM EDT) Glucose Lvl 87 65 - 199 mg/dL [facility] Comment:Diabetes: >=200 mg/d L plus symptoms BUN 60(H) 10 - 20 mg/dL [facility] Creatinine 5.63(H) 0.80 - 1.50 mg/dL [facility] Sodium 143 135 - 145 mmol/L [facility] Potassium 4.4 3.5 - 5.0 mmol/L [facility] Comment: Please note: ??Patients with WBC >100,000 may have falsely elevated Potassium levels. ??For accurate Potassium quantification in these patients send serum separator tube (gold top) for subsequent determinations. ??Contact the Clinical Chemistry Laboratory if there are any questions. Chloride 107 98 - 107 mmol/L [facility] CO2 21(L) 22 - 31 mmol/L [facility] Anion Gap 15 5 - 15 mmol/L [facility] Calcium 9.1 8.5 - 10.5 mg/dL [facility] Estimated GFR 10(L) >=60 mL/min/1. 73 m?? [facility] Comment: This patient's estimated GFR [...] Lab Tanya Seaman MD CHEMISTRY ORDERABL ES [facility] [place] [address] * ECHO COMPLETE W CONTRAST (01/19/2023 8:59 AM EDT) Anatomical Region Laterality Modality Cardiac Other 01/19/2023 6:52 AM EDT Narrative 01/19/2023 11:43 AM EDT ? Echocardiogram Report Name: MIGUEL SANCHEZ ? Study Date: 01/19/2023 06:52 AMBP: 142/82 mmHg ? Patient Location: [id number] A : 1955 ? Height: 165 cm ? Account: [id number] Age: 67 yrs ? Weight: 110 kg Gender: Male ?BSA: 2.1 m2 Ordering Physician: TANYA SEAMAN Referring Physician: ELHAM DYKES Performed By: Cathleen Ware RDCS Reason For Study: Heart failure Interpreting Fellow: Martin Reyes. Exam Location: [facility]. Interpretation Summary Left ventricle is mildly [...] ventricular systolic function has further decreased. Procedure Complete-[id number]. Satisfactory quality. Left Ventricle Left ventricle is [...] Date: 306:52 AMBP: 142/82 mmHg Patient Location: [address] : 1955 Height: 165 cm Account: [id number] Age: 67 yrs Weight: 110 kg Gender: Male BSA: 2.1 m2 Ordering Physician: TANYA SEAMAN Referring Physician: ELHAM DYKES Performed By: Cathleen Ware RDCS Reason For Study: Heart failure Interpreting Fellow: Martin Reyes. Exam Location: [facility]. Interpretation Summary Left ventricle is mildly [...] left ventricular systolicfunction has further decreased. Procedure Complete-[id number]. Satisfactory quality. Left Ventricle Left ventricle is [...] who have questions, please contact the health personal caregiver that requested your imaging first. ?Jimmie العراقي, Staff Physician Electronically Signed Final Report ?? 01/19/2023 08:47 am Narrative 01/19/2023 8:47 AM EDT Renal ? (Signed Final 01/19/2023 08:47 am) PATIENT INFO: ID #: ? [id number] ?: ??[birth year] (67 yrs)(M) Name: ? MIGUEL SANCHEZ ? Visit Date: 01/19/2023 08:27 am PERFORMED BY: Attending: ?Malcom OTT, Jimmie Perez Performed By: ? Kary Iqbal RDMS Referred By: ?TANYA QUEZADAMICHELLE Location: ? [place] SERVICE(S) PROVIDED: URETRO - Retroperitoneal Complete - [id number] ? [id number] INDICATIONS: New CLEM of unclear etiology RIGHT [...] 01/19/2023 08:47 am) PATIENT INFO: ID #: [id number] : [birth year] (67 yrs)(M) Name: MIGUEL SANCHEZ Visit Date: 01/19/2023 08:27 am PERFORMED BY: Attending: Jimmie العراقي MD Performed By: Kary Iqbal RDMS Referred By: TANYA SEAMAN Location: [place] SERVICE(S) PROVIDED: URETRO - Retroperitoneal Complete - [id number] INDICATIONS: New CLEM of unclear etiology RIGHT [...] who have questions, please contact the health personal caregiver that requested your imaging first. Jimmie العراقي, Staff Physician Electronically Signed Final Report 01/19/2023 08:47 am Tanya Seaman MD IM US GEN ORDERAB LES * POCT Glucose (01/19/2023 8:00 AM EDT) POC Glucose 92 65 - 199 mg/dL [facility] Comment: Supplemental ranges: <140 mg/dL before meals <180 mg/dL all other times of the day Blood 01/19/2023 8:00 AM EDT 01/19/2023 8:00 AM EDT Tanya Seaman MD POINT OF CARE TEST ORDERABLES [facility] [place] [address] * POCT Glucose (01/19/2023 7:42 AM EDT) POC Glucose 87 65 - 199 mg/dL [facility] Comment: Supplemental ranges: <140 mg/dL before meals <180 mg/dL all other times of the day Blood 01/19/2023 7:42 AM EDT 01/19/2023 7:42 AM EDT Tanya Seaman MD POINT OF CARE TEST ORDERABLES [facility] [place] [address] * (ABNORMAL) Basic Metabolic Panel (non-fasting) (01/19/2023 6:21 AM EDT) Glucose Lvl 80 65 - 199 mg/dL [facility] Comment:Diabetes: >=200 mg/d L plus symptoms BUN 58(H) 10 - 20 mg/dL [facility] Creatinine 5.52(H) 0.80 - 1.50 mg/dL [facility] Sodium 143 135 - 145 mmol/L [facility] Potassium 4.3 3.5 - 5.0 mmol/L [facility] Comment: Please note: ??Patients with WBC >100,000 may have falsely elevated Potassium levels. ??For accurate Potassium quantification in these patients send serum separator tube (gold top) for subsequent determinations. ??Contact the Clinical Chemistry Laboratory if there are any questions. Chloride 107 98 - 107 mmol/L [facility] CO2 21(L) 22 - 31 mmol/L [facility] Anion Gap 15 5 - 15 mmol/L [facility] Calcium 8.9 8.5 - 10.5 mg/dL [facility] Estimated GFR 11(L) >=60 mL/min/1. 73 m?? [facility] Comment: This patient's estimated GFR was calculated using the 2021 CKD-EPI equation. The estimated GFR can vary [...] MD CHEMISTRY ORDERABL ES Performing Organization Address [facility]/ZIP Co de Phone Number [facility] [place] [address] * CK (01/19/2023 1:50 AM EDT) CK, Total 70 0 - 200 unit/L [facility] Blood Venous Draw / Unknown 01/19/2023 1:50 AM EDT 01/19/2023 1:55 AM EDT Narrative Resulting Agency Comment Spec In Lab Kyle Mckeon MD CHEMISTRY ORDERABLES Performing Organization Address [facility] Co de Phone Number [facility] [place] [address] * Differential, Automated (01/19/2023 1:50 AM EDT) Neutrophils % 73.8 % [facility] Neutr Abs (ANC) 5.75 1.70 - 6.10 x10(3)/[facility] Lymphocytes % 13.8 % [facility] Lymphocytes Abs 1.1 0.9 - 3.2 x10(3)/[facility] LABORATORY Monocytes % 8.5 % [facility] Monocyte Abs 0.7 0.3 - 0.9 x10(3)/[facility]ORY Eosinophils % 3.0 % [facility] Eosinophils Abs 0.2 0.0 - 0.4 x10(3)/[facility]ATORY Basophils % 0.6 % [facility] Basophils Abs 0.0 0.0 - 0.1 x10(3)/[facility]ATORY Immature Gran % 0.30 % [facility] Comment: Immature granulocytes(IG's)percentage and absolute count will include metamyelocytes, myelocytes, and promyelocytes. Blood smears from CBCs yielding IG's will be scanned manually for concordance. If this scan disagrees with the automated IG or if promyelocytes are noted, a manual differential will be performed. Angelica Gran Abs 0.02 0.00 - 0.04 x10(3)/[facility]ATORY Blood 01/19/2023 1:50 AM EDT 01/19/2023 1:54 AM EDT Narrative Resulting Agency Comment Spec In Lab Kyle Mckeon MD HEMATOLOGY ORDERABLE S [facility] [place] [address] * (ABNORMAL) Hemogram (01/19/2023 1:50 AM EDT) WBC 7.8 4.0 - 9.5 x10(3)/[facility] LAB[facility]ATORY RBC 3.25(L) 4.58 - 5.54 x10(6)/[facility]ORY Hemoglobin 10.1(L) 13.7 - 16.5 g/dL [facility] Hematocrit 30.3(L) 40.5 - 48.5 % [facility] MCV 93.2(H) 82.9 - 93.1 fL [facility] MCH 31.1 27.5 - 32.1 pg [facility] MCHC 33.3 32.0 - 35.7 g/dL [facility] Platelets 173 145 - 357 x10(3)/[facility] RDWSD 44.6 36.0 - 45.0 [facility]ORY RDWCV 13.0 11.4 - 13.8 % [facility] MPV 11.5 7.6 - 12.9 [facility] nRBC % Auto 0.0 % [facility] nRBC Abs Auto 0.000 0.000 - 0.000 x10(3)/[facility]ORY Blood 01/19/2023 1:50 AM EDT 01/19/2023 1:54 AM EDT Narrative Resulting Agency Comment Spec In Lab Kyle Mckeon MD HEMATOLOGY ORDERABLE S Performing Organization Address City/[facility]/ZIP Co de Phone Number [facility] [place] [address] * Phosphorus (01/19/2023 1:50 AM EDT) Phosphorus 4.3 2.5 - 4.5 mg/dL [facility] Blood 01/19/2023 1:50 AM EDT 01/19/2023 1:54 AM EDT Narrative Resulting Agency Comment Spec In Lab Tanya Seaman MD CHEMISTRY ORDERABL ES Performing Organization Address [facility] Co de Phone Number [facility] [place] [address] * Magnesium (01/19/2023 1:50 AM EDT) Magnesium 0.80 0.69 - 1.07 mmol/L [facility] Blood 01/19/2023 1:50 AM EDT 01/19/2023 1:54 AM EDT Narrative Resulting Agency Comment Spec In Lab Tanya Seaman MD CHEMISTRY ORDERABL ES Performing Organization Address City/[facility]/ZIP Co de Phone Number [facility] [place] [address] * (ABNORMAL) Basic Metabolic Panel (non-fasting) (01/19/2023 1:50 AM EDT) Glucose Lvl 78 65 - 199 mg/dL [facility] Comment:Diabetes: >=200 mg/d L plus symptoms BUN 54(H) 10 - 20 mg/dL [facility] Creatinine 5.50(H) 0.80 - 1.50 mg/dL [facility] Sodium 143 135 - 145 mmol/L [facility] Potassium 4.3 3.5 - 5.0 mmol/L [facility] Comment: Please note: ??Patients with WBC >100,000 may have falsely elevated Potassium levels. ??For accurate Potassium quantification in these patients send serum separator tube (gold top) for subsequent determinations. ??Contact the Clinical Chemistry Laboratory if there are any questions. Chloride 107 98 - 107 mmol/L [facility] CO2 22 22 - 31 mmol/L [facility] Anion Gap 14 5 - 15 mmol/L [facility] Calcium 8.9 8.5 - 10.5 mg/dL [facility] Estimated GFR 11(L) >=60 mL/min/1. 73 m?? [facility] Comment: This patient's estimated GFR [...] Lab Tanya Seaman MD CHEMISTRY ORDERABL ES [facility] [place] [address] * POCT Glucose (01/19/2023 1:46 AM EDT) Pathologist [facility] POC Glucose 75 65 - 199 mg/dL [facility] Comment: Supplemental ranges: <140 mg/dL before meals <180 mg/dL all other times of the day Blood 01/19/2023 1:46 AM EDT 01/19/2023 1:46 AM EDT Tanya Seaman MD POINT OF CARE TEST ORDERABLES Performing Organization Address [facility] Co de Phone Number [facility] [place] [address] * (ABNORMAL) Blood Gas Venous (NLH) (01/18/2023 10:20 PM EDT) [facility] pH William 7.37 7.32 - 7.42 [facility] pCO2 William 38(L) 41 - 51 mmHg [facility] pO2 William 30 25 - 40 mmHg [facility] HCO3 William 21.7 mmol/L [facility] BE William -3.7 mmol/L [facility] Hgb Blood Gas Not Perf 13.7 - 16.5 g/dL [facility] O2HB William Not Perf % [facility] COHB William Not Perf % [facility] Comment: Nonsmokers: 0.5-1.5% COHB Smokers: Variable, but usually less than 10% Toxic: 20-30% COHB Lethal: Greater than 60% COHB METHB William Not Perf <=1.5 % [facility] Na Whole Blood 140 135 - 145 mmol/L [facility] K Whole Blood 4.5 3.5 - 5.0 mmol/L [facility] Comment: Please note: Patients with WBC >100,000 may have falsely elevated Potassium levels. Contact the Clinical Chemistry Laboratory if there are any questions. ICa Whole Blood 1.14(L) 1.15 - 1.33 mmol/L [facility] Comment: Note: ??Total bilirubin higher than 20 mg/dL may lead to falsely low ionized calcium. CL Whole Blood 109(H) 98 - 107 mmol/L [facility] Gluc Whole Bld 73 65 - 199 mg/dL [facility] Comment:Diabetes: >=200 mg/d L plus symptoms Lactate WB 1.3 0.5 - 2.2 mmol/L [facility] BGas Source Venous [facility] Blood Venous Draw / Unknown 01/18/2023 10:20 PM EDT 01/18/2023 10:26 PM EDT Narrative Resulting Agency Comment Spec In Lab Kyle Mckeon MD CHEMISTRY ORDERABLES [facility] [place] [address] * (ABNORMAL) Basic Metabolic Panel (non-fasting) (01/18/2023 10:16 PM EDT) Glucose Lvl 74 65 - 199 mg/dL [facility] Comment:Diabetes: >=200 mg/d L plus symptoms BUN 60(H) 10 - 20 mg/dL [facility] Creatinine 5.81(H) 0.80 - 1.50 mg/dL [facility] Sodium 145 135 - 145 mmol/L [facility] Potassium 4.8 3.5 - 5.0 mmol/L [facility] Comment: Please note: ??Patients with WBC >100,000 may have falsely elevated Potassium levels. ??For accurate Potassium quantification in these patients send serum separator tube (gold top) for subsequent determinations. ??Contact the Clinical Chemistry Laboratory if there are any questions. Chloride 109(H) 98 - 107 mmol/L [facility] CO2 Not Perf [facility] Comment:Add-on request. Samp le too old to perform test. Anion Gap Unable to Calculate 5 - 15 mmol/L [facility] Calcium 9.2 8.5 - 10.5 mg/dL [facility] Estimated GFR 10(L) >=60 mL/min/1 .73 m?? [facility] Comment: This patient's estimated GFR [...] In Lab Kyle Mckeon MD CHEMISTRY ORDERABLES [facility] [place] [id number] * (ABNORMAL) Differential, Automated (01/18/2023 10:16 PM EDT) Neutrophils % 78.0 % [facility] Neutr Abs (ANC) 5.41 1.70 - 6.10 x10(3)/mc L [facility] Lymphocytes % 11.5 % [facility] Lymphocytes Abs 0.8(L) 0.9 - 3.2 x10(3)/mc L [facility] Monocytes % 6.6 % [facility] Monocyte Abs 0.5 0.3 - 0.9 x10(3)/mc L [facility] Eosinophils % 3.0 % [facility] Eosinophils Abs 0.2 0.0 - 0.4 x10(3)/mc L [facility] Basophils % 0.6 % [facility] Basophils Abs 0.0 0.0 - 0.1 x10(3)/[facility] LABORATORY Immature Gran % 0.30 % [facility] Comment: Immature granulocytes(IG's)percentage and absolute count will include metamyelocytes, myelocytes, and promyelocytes. Blood smears from CBCs yielding IG's will be scanned manually for concordance. If this scan disagrees with the automated IG or if promyelocytes are noted, a manual differential will be performed. Angelica Gran Abs 0.02 0.00 - 0.04 x10(3)/[facility] LABORATORY Blood 01/18/2023 10:1 6 PM EDT 01/18/2023 10:27 PM EDT Narrative Resulting Agency Comment Spec In Lab Kyle Mckeon MD HEMATOLOGY ORDERABLE S [facility] [place] [address] * (ABNORMAL) Hemogram (01/18/2023 10:16 PM EDT) WBC 6.9 4.0 - 9.5 x10(3)/[facility] LABORATORY RBC 3.30(L) 4.58 - 5.54 x10(6)/[facility]ATORY Hemoglobin 10.1(L) 13.7 - 16.5 g/dL [facility] Hematocrit 31.0(L) 40.5 - 48.5 % [facility] MCV 93.9(H) 82.9 - 93.1 fL [facility] MCH 30.6 27.5 - 32.1 pg [facility] MCHC 32.6 32.0 - 35.7 g/dL [facility] Platelets 196 145 - 357 x10(3)/[facility] LABORATORY RDWSD 44.9 36.0 - 45.0 fL [facility] RDWCV 13.1 11.4 - 13.8 % [facility] MPV 11.4 7.6 - 12.9 fL [facility] nRBC % Auto 0.0 % [facility] nRBC Abs Auto 0.000 0.000 - 0.000 x10(3)/mcL [facility] Blood 01/18/2023 10:1 6 PM EDT 01/18/2023 10:27 PM EDT Narrative Resulting Agency Comment Spec In Lab Kyle Mckeon MD HEMATOLOGY ORDERABLE S Performing Organization Address [facility] de Phone Number [facility] [place] [address] * Salicylate (01/18/2023 10:16 PM EDT) Salicylate Lvl 3 mg/L [facility] Comment: Therapeutic Range: ??< 200 [...] MD CHEMISTRY ORDERABL ES Performing Organization Address [facility] de Phone Number [facility] [place] [address] * (ABNORMAL) Acetaminophen level (01/18/2023 10:16 PM EDT) Acetamin Lvl <5(L) 5 - 30 mg/L [facility] Comment: Levels >150 mg/L at 4 hours post ingestion are often an indication for N-Acetylcysteine. Blood 01/18/2023 10:1 6 PM EDT 01/18/2023 10:27 PM EDT Narrative Resulting Agency Comment Spec In Lab Tanya Seaman MD CHEMISTRY ORDERABL ES Performing Organization Address [facility] Co de Phone Number [facility] [place] [address] * Phosphorus (01/18/2023 10:16 PM EDT) Phosphorus 4.2 2.5 - 4.5 mg/dL [facility] Blood 01/18/2023 10:1 6 PM EDT 01/18/2023 10:27 PM EDT Narrative Resulting Agency Comment Spec In Lab Tanya Seaman MD CHEMISTRY ORDERABL ES Performing Organization Address [facility] de Phone Number [facility] [place] [address] * Magnesium (01/18/2023 10:16 PM EDT) Magnesium 0.87 0.69 - 1.07 mmol/L [facility] Blood 01/18/2023 10:1 6 PM EDT 01/18/2023 10:27 PM EDT Narrative Resulting Agency Comment Spec In Lab Tanya Seaman MD CHEMISTRY ORDERABL ES Performing Organization Address [facility] de Phone Number [facility] [place] [address] * APTT (01/18/2023 10:16 PM EDT) PTT 35 25 - 37 sec [facility] Comment: The PTT is NOT appropriate for heparin monitoring. Use the Anti-Xa level for heparin monitoring (HEP UFH) or LMWH monitoring (HEP LMW). A PTT less than 37 seconds generally indicates adequate hemostasis. Blood 01/18/2023 10:1 6 PM EDT 01/18/2023 10:27 PM EDT Narrative Resulting Agency Comment Spec In Lab Tanya Seaman MD HEMATOLOGY ORDERAB LES Performing Organization Address [facility]/ZIP Co de Phone Number [place] [place] [address] * (ABNORMAL) Prothrombin Time (01/18/2023 10:16 PM EDT) PT 14.3(H) 9.4 - 12.5 sec [facility] INR 1.3 [facility] Comment: An INR <2.0 indicates adequate [...] MD HEMATOLOGY ORDERAB LES Performing Organization Address [facility] Co de Phone Number [facility] [place] [address] * (ABNORMAL) Hemoglobin A1c (01/18/2023 10:16 PM EDT) Pathologist [facility] Hemoglobin A1C 5.7(H) 4.3 - 5.6 % [facility] Comment: Reference Range: 4.3 - [...] Mellitus, Diabetes Care 2013; 36: Suppl. 1, D47-89 Est Avg Gluc 117 mg/dL [facility] Comment: eAG equivalents for HbA1c [...] into estimated average glucose values. ??Diabetes Care 2008:31(8):3536-4250. Blood 01/18/2023 10:1 6 PM EDT 01/18/2023 10:27 PM EDT Narrative Resulting Agency Comment Spec In Lab Tanya Seaman MD CHEMISTRY ORDERABL ES Performing Organization Address [facility] Phone Number [facility] [place] [address] * TSH [place] (01/18/2023 10:16 PM EDT) TSH 2.03 0.27 - 4.20 mcIU/mL [facility] Comment: Reference Interval (mcIU/mL): Females: ??First Trimester: 0.23-3.88 ??Second Trimester: 0.22-3.90 ??Third Trimester: 0.44-4.66 Blood 01/18/2023 10:1 6 PM EDT 01/18/2023 10:27 PM EDT Narrative Resulting Agency Comment Spec In Lab Tanya Seaman MD CHEMISTRY ORDERABL ES Performing Organization Address City/State/[facility] Co de Phone Number [facility] [place] [address] * LDL Cholesterol, Direct (01/18/2023 10:16 PM EDT) LDL Chol Direct 65 mg/dL [facility] Comment: Lowest Risk: <100 mg/dL Lower Risk: 100-129 mg/dL Borderline High Risk: 130-159 mg/dL High Risk: 160-189 mg/dL Very High Risk: >yk=553 mg/dL Blood 01/18/2023 10:1 6 PM EDT 01/18/2023 10:27 PM EDT Narrative Resulting Agency Comment Spec In Lab Tanya Seaman MD CHEMISTRY ORDERABL ES Performing Organization Address [facility] Co de Phone Number [facility] [place] [address] * HDL/Cholesterol Profile (01/18/2023 10:16 PM EDT) Chol, Total 122 mg/dL [facility] Comment: Lower Risk: <200 mg/dL Average Risk: 200-239 mg/dL Higher Risk: >la=310 mg/dL HDL 27 mg/dL [facility] Comment: Males: ?? Higher Risk: <40 mg/dL Females: ?? Higher Risk: <50 mg/dL Chol/HDL Ratio 4.5 ratio [facility] Chol/HDL Interpretation See Note [facility] Comment: Lipid management should be guided by a patient? s ASCVD risk, goals and preferences. ACC/AHA Guidelines recommend high intensity statin if clinical ASCVD or LDL greater than or equal to 190 mg/dL. http://tinyurl.com/RVT-SBK-Wcnnyscdq Measure LDL if Total Cholesterol minus HDL Cholesterol is greater than 220 mg/dL. Adults aged 40-75 with LDL 70-189 mg/dL should have their 10 year ASCVD risk estimated with the ACC/AHA ASCVD risk supervisor estimator and drafter http://tools.acc.org/LIFNZ-Urwy-Qlhqevqae/ Statin should be discussed if risk greater [...] Lab Tanya Seaman MD CHEMISTRY ORDERABL ES [facility] [place] [address] * (ABNORMAL) Troponin (01/18/2023 10:16 PM EDT) Troponin-T HS 78(H) <=22 ng/L [facility] Comment: This patient's troponin T concentration [...] troponin value can be found in the [facility] Test Catalog Troponin - [facility] Test Catalog Reference: Fourth Holstein Definition of Myocardial Infarction. Journal of the [place] [employer] 2018;72:5579-3382 Blood 01/18/2023 10:1 6 PM EDT 01/18/2023 10:27 PM EDT Narrative Resulting Agency Comment Spec In Lab Tanya Seaman MD CHEMISTRY ORDERABL ES Performing Organization Address [facility]/ZIP Co de Phone Number [facility] [place] [address] * (ABNORMAL) Protein/Creatinine Ratio, urine (01/18/2023 10:13 PM EDT) U Creatinine 41 mg/dL [facility] U Protein Ran 200(H) 0 - 12 mg/dL [facility] Prot/Cre Ratio 4.9 ratio [facility] Urine Urine / Unknown 01/18/2023 1 0:13 PM EDT 01/18/2023 10:29 PM EDT Narrative Resulting Agency Comment Spec In Lab Deonte Lugo MD URINE ORDERABLES Performing Organization Address [facility]/ZIP Co de Phone Number [facility] [place] [address] * Urine culture (01/18/2023 10:13 PM EDT) Pathologist [facility] Urine Culture No growth (Less than 1,000 cfu/ml). [facility] Indwelling Catheter Urine 01/18/2023 10:13 PM EDT 01/18/2023 11:08 PM EDT Narrative Resulting Agency Comment Spec In Lab Kyle Mckeon MD MICROBIOLOGY - GENER AL ORDERABLES Performing Organization Address [facility]/ZIP Co de Phone Number [facility] [place] [address] * (ABNORMAL) Urinalysis Microscopic Exam (01/18/2023 10:13 PM EDT) RBC UA >100(H) 0 - 3 /HPF [facility] WBC UA 10(H) 0 - 3 /HPF [facility] Squam Epith UA 5(H) <=4 /HPF [facility] Hyaline Cast UA 2 0 - 2 /LPF [facility] Indwelling Catheter Urine 01/18/2023 10:13 PM EDT 01/18/2023 10:22 PM EDT Narrative Resulting Agency Comment Spec In Lab Kyle Mckeon MD URINE ORDERABLES [facility] [place] [address] * Rapid Drug Screen w/ Confirmation, Urine (01/18/2023 10:13 PM EDT) U Barbiturates Screen None Detected None Detected [facility] Comment: The barbiturate screen detects [...] U Benzodiazepines Screen None Detected None Detected [facility] Comment: The benzodiazepines screen detects [...] U Cocaine Screen None Detected None Detected [facility] Comment: The cocaine metabolites screen detects benzoylecgonine (Cocaine Metabolite) at concentrations >150 ng/mL. A ? Presumptive Positive? result indicates that the screening result was positive but has not yet been confirmed by a highly-specific method. As with any screen, occasional false positive results from cross-reacting substances may occur. Not for Medico-Legal Purposes. U Methadone Metabolites Screen None Detected None Detected [facility] Comment: The methadone metabolite screen detects EDDP (major methadone metabolite) at concentrations >100 ng/mL. A ? Presumptive Positive? result indicates that the screening result was positive but has not yet been confirmed by a highly-specific method. As with any screen, occasional false positive results from cross-reacting substances may occur. Not for Medico-Legal Purposes. U Opiate Screen None Detected None Detected [facility] Comment: The opiates screen detects [...] U Cannabinoid Screen None Detected None Detected [facility] Comment: The marijuana metabolites screen detects the THC metabolite (14-uyq-5-carboxy-delta 9-THC) at concentrations >20 ng/mL. A ? Presumptive Positive? result indicates that the screening result was positive but has not yet been confirmed by a highly-specific method. As with any screen, occasional false positive results from cross-reacting substances may occur. Not for Medico-Legal Purposes. U Oxycodone Screen None Detected None Detected [facility] Comment: The oxycodone screen detects oxycodone and oxymorphone at concentrations >100 ng/mL. A ? Presumptive Positive? result indicates that the screening result was positive but has not yet been confirmed by a highly-specific method. As with any screen, occasional false positive results from cross-reacting substances may occur. Not for Medico-Legal Purposes. U Buprenorphine Screen None Detected None Detected [facility] Comment: The buprenorphine screen detects [...] characteristics of this test were determined by [facility] in accordance with CLIA requirements. This laboratory is qualified under CLIA to perform high-complexity testing. U Fentanyl Screen None Detected None Detected [facility] Comment: The fentanyl screen detects [...] characteristics of this test were determined by [facility] in accordance with CLIA requirements. This laboratory is qualified under CLIA to perform high-complexity testing. U Tricyclics Screen None Detected None Detected [facility] Comment: The tricyclics screen detects [...] characteristics of this test were determined by [facility] in accordance with CLIA requirements. This laboratory is qualified under CLIA to perform high-complexity testing. U Ethanol Screen None Detected None Detected [facility] Comment:This urine ethanol a ssay detects ethanol at concentrations >/= 100 mg/L. U Amphetamines Screen None Detected None Detected [facility] Comment: The amphetamine screen detects d-amphetamine and d-methamphetamine at concentrations >300 ng/mL. A ? Presumptive Positive? result indicates that the screening result was positive but has not yet been confirmed by a highly-specific method. As with any screen, occasional false positive results from cross-reacting substances may occur. Not for Medico-Legal Purposes. U Creat HEATHER 42 >=20 mg/dL [facility] U Chromate HEATHER <2.0 <=49.9 mg/L [facility] U Nitrite HEATHER <50 <=499 mg/L [facility] U Oxidant HEATHER 6 <=199 mg/L [facility] U pH HEATHER 6.0 3.0 - 10.9 [facility] U Adulterants Screen None Detected None Detected [facility] Comment:No adulteration of t his urine sample was detected. Urine 01/18/2023 10:1 3 PM EDT 01/18/2023 10:22 PM EDT Narrative Resulting Agency Comment Spec In Lab Kyle Mckeon MD CHEMISTRY ORDERABLES Performing Organization Address City/[facility]/ZIP Co de Phone Number [facility] [place] [address] * Rapid Drug Screen, Urine (HEATHER Request) (01/18/2023 10:13 PM EDT) HEATHER Conf Requested Yes [facility] HEATHER Requested See Comment [facility] Comment:Refer to Rapid Drug Screen w/ Confirmation, Urine for results. Urine 01/18/2023 10:1 3 PM EDT 01/18/2023 10:22 PM EDT Narrative Resulting Agency Comment Spec In Lab Tanya Seaman MD URINE ORDERABLES Performing Organization Address [facility] Co de Phone Number [facility] [place] [address] * Creatinine, urine, random (01/18/2023 10:13 PM EDT) U Creatinine 41 mg/dL [facility] Urine 01/18/2023 10:1 3 PM EDT 01/18/2023 10:22 PM EDT Narrative Resulting Agency Comment Spec In Lab Tanya Seaman MD URINE ORDERABLES Performing Organization Address [facility] Co de Phone Number [facility] [place] [address] * Urea nitrogen, urine, random (01/18/2023 10:13 PM EDT) U Urea Nitrogen 251 mg/dL [facility] Urine 01/18/2023 10:1 3 PM EDT 01/18/2023 10:22 PM EDT Narrative Resulting Agency Comment Spec In Lab Tanya Seaman MD URINE ORDERABLES Performing Organization Address [facility]/ZIP Co de Phone Number [facility] [place] [address] * (ABNORMAL) Urinalysis with reflex Culture (01/18/2023 10:13 PM EDT) Glucose UA Negative Negative mg/dL [facility] Protein UA >=300(A) Negative mg/dL [facility] Bilirubin UA Negative Negative mg/dL [facility] Comment: Clinical correlation required for positive Urine Bilirubin results as false positive may occur with some drugs and drug related products. If a false positive is suspected a serum total bilirubin should be considered if clinically indicated. Urobilinogen UA Normal Normal mg/dL [facility] pH UA 6.5 5.0 - 8.0 [facility] Blood UA Large(A) Negative mg/dL [facility] Ketones UA Negative Negative mg/dL [facility] Nitrite UA Negative Negative [facility] Leukocytes UA Small(A) Negative [facility] Appearance UA Cloudy(A) Clear [facility] Spec [place] UA 1.010 1.005 - 1.030 [facility] Color UA Red(A) Yellow [facility] Culture Reflexed Yes [facility] Indwelling Catheter Urine 01/18/2023 10:13 PM EDT 01/18/2023 10:22 PM EDT Narrative Resulting Agency Comment Spec In Lab Tanya Seaman MD URINE ORDERABLES Performing Organization Address [facility]/ZIP Co de Phone Number [facility] [place] [address] * L[place]ate, [place] blood, [place] [place] [place] (01/18/2023 7:46 PM EDT) Lactate WB 1.6 0.5 - 2.2 mmol/L [facility] Blood 01/18/2023 7:46 PM EDT 01/18/2023 7:51 PM EDT Narrative Resulting Agency Comment Spec In Lab Tanya Seaman MD CHEMISTRY ORDERABL ES [facility] [place] [address] * (ABNORMAL) Differential, Automated (01/18/2023 7:16 PM EDT) Neutrophils % 80.9 % [facility] Neutr Abs (ANC) 5.86 1.70 - 6.10 x10(3)/mc L [facility] Lymphocytes % 9.7 % [facility] Lymphocytes Abs 0.7(L) 0.9 - 3.2 x10(3)/mc L [facility] Monocytes % 5.9 % [facility] Monocyte Abs 0.4 0.3 - 0.9 x10(3)/mc L [facility] Eosinophils % 2.6 % [facility] Eosinophils Abs 0.2 0.0 - 0.4 x10(3)/mc L [facility] Basophils % 0.6 % [facility] Basophils Abs 0.0 0.0 - 0.1 x10(3)/mc L [facility] Immature Gran % 0.30 % [facility] Comment: Immature granulocytes(IG's)percentage and absolute count will include metamyelocytes, myelocytes, and promyelocytes. Blood smears from CBCs yielding IG's will be scanned manually for concordance. If this scan disagrees with the automated IG or if promyelocytes are noted, a manual differential will be performed. Angelica Gran Abs 0.02 0.00 - 0.04 x10(3)/mc L [facility] Blood 01/18/2023 7:16 PM EDT 01/18/2023 7:27 PM EDT Narrative Resulting Agency Comment Spec In Lab Kyle Mckeon MD HEMATOLOGY ORDERABLE S Performing Organization Address City/[facility] Co de Phone Number [facility] [place] [address] * (ABNORMAL) Hemogram (01/18/2023 7:16 PM EDT) WBC 7.2 4.0 - 9.5 x10(3)/[facility] RBC 3.24(L) 4.58 - 5.54 x10(6)/[facility] Hemoglobin 10.1(L) 13.7 - 16.5 g/dL [facility] Hematocrit 30.1(L) 40.5 - 48.5 % [facility] MCV 92.9 82.9 - 93.1 [facility] MCH 31.2 27.5 - 32.1 pg [facility] MCHC 33.6 32.0 - 35.7 g/dL [facility] Platelets 183 145 - 357 x10(3)/[facility] RDWSD 44.4 36.0 - 45.0 [facility] RDWCV 13.2 11.4 - 13.8 % [facility] MPV 11.9 7.6 - 12.9 [facility] nRBC % Auto 0.0 % [facility] nRBC Abs Auto 0.000 0.000 - 0.000 x10(3)/[facility] Blood 01/18/2023 7:16 PM EDT 01/18/2023 7:27 PM EDT Narrative Resulting Agency Comment Spec In Lab Klye Mckeon MD HEMATOLOGY ORDERABLE S [facility] [place] [address] * (ABNORMAL) pro-Brain Natriuretic Peptide (01/18/2023 7:16 PM EDT) ProBNP 11,818(H) <=124 pg/mL [facility] Blood 01/18/2023 7:16 PM EDT 01/18/2023 7:27 PM EDT Narrative Resulting Agency Comment Spec In Lab Tanya Seaman MD CHEMISTRY ORDERABL ES Performing Organization Address [facility]/ZIP Co de Phone Number [facility] [place] [address] * (ABNORMAL) Troponin (01/18/2023 7:16 PM EDT) Troponin-T HS 78(H) <=22 ng/L [facility] Comment: This patient's troponin T concentration [...] troponin value can be found in the [facility] Test Catalog Troponin - [facility] Test Catalog Reference: Fourth Holstein Definition of Myocardial Infarction. Journal of the [place] [employer] 2018;72:4630-3224 Blood 01/18/2023 7:16 PM EDT 01/18/2023 7:27 PM EDT Narrative Resulting Agency Comment Spec In Lab Tanya Seaman MD CHEMISTRY ORDERABL ES [facility] [place] [address] * (ABNORMAL) Comprehensive metabolic panel (non-fasting) (01/18/2023 7:16 PM EDT) Glucose Lvl 76 65 - 199 mg/dL [facility] Comment:Diabetes: >=200 mg/d L plus symptoms BUN 60(H) 10 - 20 mg/dL [facility] Creatinine 5.71(H) 0.80 - 1.50 mg/dL [facility] Sodium 144 135 - 145 mmol/L [facility] Potassium 4.6 3.5 - 5.0 mmol/L [facility] Comment: Please note: ??Patients with WBC >100,000 may have falsely elevated Potassium levels. ??For accurate Potassium quantification in these patients send serum separator tube (gold top) for subsequent determinations. ??Contact the Clinical Chemistry Laboratory if there are any questions. Chloride 109(H) 98 - 107 mmol/L [facility] CO2 21(L) 22 - 31 mmol/L [facility] Anion Gap 14 5 - 15 mmol/L [facility] Calcium 9.3 8.5 - 10.5 mg/dL [facility] Total Protein 7.2 6.1 - 8.0 g/dL [facility] Albumin 4.2 3.2 - 5.2 g/dL [facility] AST 12 0 - 39 unit/L [facility] ALT 12 0 - 55 unit/L [facility] Alk Phos 95 40 - 130 unit/L [facility] Total Bilirubin 0.7 0.2 - 1.3 mg/dL [facility] Estimated GFR 10(L) >=60 mL/min/1. 73 m?? [facility] Comment: This patient's estimated GFR [...] MD CHEMISTRY ORDERABL ES Performing Organization Address City/[facility] Co de Phone Number [facility] [place] [address] * EKG 12 Lead (01/18/2023 6:52 PM EDT) Ventricular rate 69 BPM MUSE SYSTEM Atrial Rate 69 BPM MUSE SYSTEM P-R Interval 212 ms MUSE SYSTEM QRS Duration 126 ms MUSE SYSTEM Q-T Interval 432 ms MUSE SYSTEM QTC Calculated (Bezet) 462 ms MUSE SYSTEM Calculated P Menan 46 degrees MUSE SYSTEM Calculated R Menan -37 degrees MUSE SYSTEM Calculated T Menan 101 degrees MUSE SYSTEM INTERPRETATION Sinus rhythm with 1st degree A-V block Left axis deviation Non-specific intra-ventricul ar conduction block Possible Lateral infarct , age undetermined Abnormal ECG No previous ECGs available Confirmed by Tessa Saldivar ([id number]) on 01/19/2023 9:21:20 AM MUSE SYSTEM 01/18/2023 6:52 PM EDT 01/19/2023 9:21 AM EDT Tanya Seaman MD ECG ORDERABLES Performing Organization Address City/[facility]/ZIP Co de Phone Number MUSE SYSTEM documented in this encounter Visit Diagnoses Not on filedocumented in this encounter Admitting Diagnoses Diagnosis Heart [...] ordered pain medications are indicated. , Routine atorvastatin (Lipitor) tablet 80 mg 80 mg, [...] Given 01/25/2023 8:28 AM EDT 5 mg gabapentin (Neurontin) capsule 100 mg 100 [...] tube = 37.5 grams.), Routine heparin (porcine) (5,000 units/1 mL) subcutaneous injection 7,500 Units 7,500 Units, Subcutaneous, EVERY 8 HOURS SCHEDULED, First dose on Wed01/19/23 at 1400, Until Discontinued, Routine Given 01/26/2023 2:57 PM EDT 7,500 Unit s Given 01/25/2023 9:20 PM EDT 7,500 Units Given 01/25/2023 2:06 PM EDT 7,500 Units hydrocortisone 1 % cream Topical (Top), 2 [...] Given 01/25/2023 8:28 AM EDT 12.5 mg metoprolol succinate XL (Toprol-XL) tablet 25 mg [...] Given 01/20/2023 8:16 PM EDT 15 mg sodium chloride 0.9 % (flush) (BD PosiFlush Normal Saline 0.9) flush 5 mL 5 mL, Intravenous, 2 TIMES DAILY, First dose on Wed01/18/23 at 2130, Until Discontinued, Routine Given 01/27/2023 9:13 AM EDT 5 mLs Given 01/26/2023 9:02 PM EDT 5 mLs Given 01/25/2023 9:22 PM EDT 5 mLs tamsulosin (Flomax) capsule 0.8 mg 0.8 mg, [...] Lisa Vasquez RN - Reason: Patient/family refused) 09 (Not Given - Provider: Sixto Amato RN - Reason: Patient/family refused) cholecalciferol (Vitamin D3) tablet 5,000 Units 5,000 Units, Oral, DAILY, First dose on Wed01/24/23 at 1600, Until Discontinued, 40 units is equivalent to 1 mcg of cholecalciferol., Routine 0828 (Given - Provider: Morena Lopez RN) 0828 (Given - Provider: Morena Lopez, LELAND) 0910 (Given - Provider: Sixto Amato, LELAND) finasteride (Proscar) tablet 5 mg 5 mg, Oral, DAILY, First dose on Wed01/20/23 at 1230, Until Discontinued, DO NOT SPLIT, CRUSH OR OPEN, Routine 0828 (Given - Provider: Morena Lopez RN) 08 (Given - Provider: Morena Lopez RN) 09 (Given - Provider: Sixto Amato, LELAND) gabapentin (Neurontin) capsule 100 mg 100 mg, Oral, 2 TIMES DAILY, First dose on Wed01/19/23 at 1645, Until Discontinued, Routine 0828 (Given - Provider: Morena Lopez RN)2119 (Given - Provider: Adrienne Calderon RN) 08 (Given - Provider: Morena Lopez, LELAND)2101 (Given - Provider: Lisa Vasquez RN) 09 (Given - Provider: Sixto Amato RN) heparin (porcine) (5,000 units/1 mL) subcutaneous injection 7,500 Units 7,500 Units, Subcutaneous, EVERY 8 HOURS SCHEDULED, First dose on Wed01/19/23 at 1400, Until Discontinued, Routine 0646 (Given - Provider: Adrienne Calderon RN)1406 (Given - Provider: Aaron Olson RN)212 (Given - Provider: Adrienne Calderon, LELAND) 0600 (Not Given - Provider: Adrienne Calderon RN - Reason: Patient/family refused - Comment: notified)145 (Given - Provider: Morena Lopez RN)2101 (Not Given - Provider: Lisa Vasquez RN [...] on Wed01/24/23 at 1800, Until Discontinued, Routine 0828 (Given - Provider: Morena Lopez RN) 0829 (Given - Provider: Morena Lopez RN) 0910 (Given - Provider: Sixto Amato, LELAND) metoprolol succinate XL (Toprol-XL) tablet 25 mg 25 mg, Oral, DAILY, First dose on Wed01/22/23 at 0945, Until Discontinued, DO NOT CRUSH OR OPEN, Routine 0828 (Given - Provider: Morena Lopez RN) 0828 (Given - Provider: Morena Lopez RN) 09 (Given - Provider: Sixto Amato, RN) OLANZapine (ZyPREXA) tablet 15 mg 15 mg, Oral, NIGHTLY, First dose on Wed01/19/23 at 2100, Until Discontinued, Routine 2100 (Not Given - Provider: Adrienne Calderon RN - Reason: Patient/family refused) 2099 (Not Given - Provider: Lisa Vasquez RN - Reason: Patient/family refused) sodium chloride 0.9 % (flush) (BD PosiFlush Normal Saline 0.9) flush 5 mL 5 mL, Intravenous, 2 TIMES DAILY, First dose on Wed01/18/23 at 2130, Until Discontinued, Routine 899 (Not Given - Provider: Morena Lopez RN - Reason: Order parameters not met)2121 (Given - Provider: Adrienne Calderon RN) 09 (Not Given - Provider: Morena Lopez RN - Reason: Patient/family refused)2101 (Given - Provider: Lisa Vasquez RN) 09 (Given - Provider: Sixto Amato, RN) tamsulosin (Flomax) capsule 0.4 mg (CANCELED) 0.4 mg, Oral, DAILY, First dose on Wed01/20/23 at 1230, Until Discontinued, DO NOT CRUSH OR CHEW, Routine 0828 (Given - Provider: Morena Lopez RN) 0829 (Given - Provider: Morena Lopez RN) tamsulosin (Flomax) capsule 0.4 mg (COMPLETED) 0.4 mg, Oral, ONCE, 1 dose, On Wed01/26/23 at 1100, DO NOT CRUSH OR CHEW, Routine 1139 (Given - Provider: Morena Lopez, LELAND) tamsulosin (Flomax) capsule 0.8 mg 0.8 mg, Oral, DAILY, First dose (after last modification) on Wed01/27/23 at 0900, Until Discontinued, DO NOT CRUSH OR CHEW, Routine 0910 (Given - Provider: Sixto Amato, RN) PRN Medication Order 01/25/2023 01/26/2023 01/27/2023 acetaminophen (Tylenol) tablet 650 mg 650 mg, Oral, EVERY 6 HOURS PRN, Starting on Wed01/20/23 at 2228, Until Wed01/27/23 at 1826, Pain, Headaches, Maximum dose of acetaminophen is [...] on Wed01/18/23 at 2041, Until Wed01/27/23 at 182, Low blood sugar, For BG 50-70 mg/dL: [...] Wed01/18/23 at 2034, Until Wed01/27/23 at 1827, Chest pain, May repeat every 5 minutes [...] 1 MIN PRN, Starting on Wed01/18/23 at 2034, Until Wed01/27/23 at 182, flush, Flush pertains to all indwelling lines. [...] on Wed01/18/23 at 2041, Until Wed01/27/23 at 182, Low blood sugar, For BG 50-70 mg/dL: [...] Wed01/18/23 at 2041, Until Wed01/27/23 at 1827, For BG 50-70 [...] Routine documented in this encounter Care Teams Provider Relations Coordinator Relationship Specialty Start Date End Date Reinier Arceo PA [address] [place] [address] PCP - General Internal Medicine 01/18/23 documented as of this encounter
--- OUTSIDE RECORDS SUMMARY | 2024-01-19 15:31 | XMS_ITS | Encounter Summary ---
Author Organization [facility] [place] [address] Care Team Providers Care Trailers And Motor Homes Salesperson Name Role Phone Von Miles MD Primary Care Provider [phone] Reason for Visit * Reason Comments Follow-up Encounter Details Date Type Department Care Team (Late st Contact Info) Description 01/02/2014 1:45 PM EDT Office Visit Dermatology at [address] [phone] Sixto Doty MD [address] [place] [address] [place] [address] Neurodermatitis (Primary Dx) Social History Tobacco Use Types Packs/Day Years Used Date Smoking Tobacco: Never Sex and Gender Information Value Date Recorded Sex Assigned at Not on file Gender Identity Not on file Sexual Orientation Not on file documented as of this encounter Progress Notes * Sixto Doty MD - 01/02/2014 2:05 PM EDT Problem: Followup neurodermatitis. Miguel follows up, and his itching is perhaps slightly better. His rash is similarly slightly better, but he gets new sites. He has been using the triamcinolone and oral hydroxyzine. The oral hydroxyzine at night, when he has his worst itching, helps him to sleep and it helps the itching, and he has no untoward side effects from this. He reminds me that this problem has been going on for a number of months. 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 However, the checks are usually late, and he feels pressured by staff at [facility] to make the payments when he is not yet able to. Physical examination reveals today a pleasant, 68-year-old gentleman who has numerous excoriations/erythematous papules present widely over the dorsal arms, sparing the forearms, on his anterior shins, and a little bit on his chest and shoulders, sparing his back. He also has now some patchy involvement on the palmar hands. Assessment and Plan: Neurodermatitis. a. Continue triamcinolone cream, but use not just daily but b.i.d., and include also the palmar hand involvement. b. Try taking a hydroxyzine dose in the morning. If it is not sedating, then take one every morning. In the evening, take two hydroxyzine. c. I recommended I see the patient again in another month for repeat check. d. I validated the patient's concern that stress regarding his mother's situation could be adversely affecting his rash and his itching. e. Return to clinic in one month. COPY: Reina Alcala A.P.R.N. documented in this encounter Plan of Treatment Upcoming Encounters Date Type Department Care Team (Late st Contact Info) Description 02/03/2024 10:00 AM EDT [place] [address] Austin Simon MD [facility] [place] [address] Lindy Box APRN [facility] [place] [address] documented as of this encounter Visit Diagnoses Diagnosis Neurodermatitis- Primary Lichenification and lichen simplex chronicus documented in this encounter Care Teams Trailers And Motor Homes Salesperson Relationship Specialty Start Date End Date Von Miles MD [address] [place] [address] [place] [address] PCP - General 12/04/13 04/17/14 documented as of this encounter
--- OUTSIDE RECORDS SUMMARY | 2024-01-19 15:31 | XMS_ITS | Encounter Summary ---
Author Organization [facility] [place] [address] Care Team Providers Care Diesel Technician Name Role Phone Von Miles MD Primary Care Provider [phone] Reason for Visit * Reason Comments Follow-up Encounter Details Date Type Department Care Team (Late st Contact Info) Description 03/09/2014 1:30 PM EDT Office Visit Dermatology at [address] [phone] Sixto Doty MD [address] [place] [address] [place] [address] Neurodermatitis (Primary Dx) Discharge Disposition: Home Social History Tobacco Use Types Packs/Day Years Used Date Smoking Tobacco: Never Sex and Gender Information Value Date Recorded Sex Assigned at Not on file Gender Identity Not on file Sexual Orientation Not on file documented as of this encounter Patient Instructions * Patient Instructions* Sarai Acosta LPN - 03/09/2014 1:32 PM EDT [facility] Dermatitis: After Your Visit Your [...] help for plant rashes. ?? Try an mfor-gpm-gxdzfzi antihistamine such as diphenhydramine (Benadryl) or chlorpheniramine [...] more? Visit our health information library at [email or web address] You can also view health information on sevenload, your personal patient account. Log in or sign up today. Enter F270 in the search box to learn more about Dermatitis: After Your Visit. ?? [id number] [employer]. Care instructions adapted under license by [facility]. This care instruction is for use with your licensed healthcare professional. If you have questions about a medical condition or this instruction, always ask your healthcare professional. [employer] disclaims any warranty or liability for your use of this information. Content Version: 9.9.074420; Last Revised: November 11, 2012 documented in this encounter Progress Notes * Sixto Doty MD - 03/09/2014 2:00 PM EDT Problem: Followup dermatitis. Miguel follows up and states that his itching is really not much better. He states that he is unable to tolerate the doxepin 25 mg, as it makes him too sleepy. He has been taking the hydroxyzine in the morning and using triamcinolone. He confides in me that the stress is much more than just with managing his mother's affairs, but that he also is still just very stressed, has feelings of hopelessness, wonders why he is even still alive and what the point of his life is. He is not happy with his trailer in its current location and is thinking about getting into senior housing. He is 58-1/2, and the social worker psychiatric working with [employer] is looking into senior housing options for him. Physical examination reveals a pleasant 58-year-old gentleman who does have excoriated papules most prominent today on the right hip and right lateral knee and calf. He has a few excoriations but fairly minimal on the upper chest, the shoulders, and over either breast. Assessment and Plan: Neurodermatitis. a. I think that patient would be in much less distress if he were in a different living situation, and I am glad to hear that already steps are being taken to look into this option for him via his social worker psychiatric in [place]'s office. b. Called in to be sure that he has refills of his triamcinolone cream, refills of his hydroxyzine 25 mg one p.o. q.a.m., and we called in a new prescription to [facility] in [place] for doxepin 10 mg to take one p.o. q.h.s. c. Recommend that I see the patient again in another month for repeat check. Note: Could consider interlesional Kenalog injections into symptomatic pruritic sites still remaining at next visit. COPY: Reina Alcala A.P.R.N. documented in this encounter Plan of Treatment Upcoming Encounters Date Type Department Care Team (Late st Contact Info) Description 02/03/2024 10:00 AM EDT Procedure [place] [address] Austin Simon MD [facility] [place] [address] Lindy Box APRN [facility] [place] [address] documented as of this encounter Visit Diagnoses Diagnosis Neurodermatitis- Primary Lichenification and lichen simplex chronicus documented in this encounter Care Teams Diesel Technician Relationship Specialty Start Date End Date Von Miles MD [address] [place] [address] [place] [address] PCP - General 12/04/13 04/17/14 documented as of this encounter
--- OUTSIDE RECORDS SUMMARY | 2024-01-19 15:31 | XMS_ITS | Encounter Summary ---
Author Organization [facility] Address [address] [place] [address] Care Team Providers Care Instructor Apparel Manufacture Name Role Phone Casimiro Perez MD Primary Care Provider Nahed montes de oca Encounter Details Date Type Department Care Team (Late st Contact Info) Description 02/10/2023 Lab Requisition [facility] Pathology & Laboratory Medicine - [facility] [address] [place] [address] Outr Resulting Lab, Provider Social History Tobacco Use Types Packs/Day Years Used Date Smoking Tobacco: Never Assessed Sex and Gender Information Value Date Recorded Sex Assigned at Not on file Gender Identity Not on file Sexual Orientation Not on file documented as of this encounter Plan of Treatment Not on file documented as of this encounter Procedures Procedure Name Priority Date/Time Associated Diagnosis Comments UREA NITROGEN, URINE RANDOM Routine 02/10/2023 11:53 EDT documented in this encounter Results * UREA NITROGEN, URINE RANDOM (02/10/2023 11:53 EDT) Urea Nitrogen, Urine 873 See Note mg/dL 02/10/2023 22:35 EDT [facility] Comment: NOTE: Reference range has not been established for urea nitrogen concentration in random urine specimens. Urine URINE / Unknown 02/10/2023 1 1:53 EDT 02/10/2023 21:55 EDT Provider Outr Resulting Lab URINALYSIS O RDERABLES [facility] [address] [place] [address] documented in this encounter Visit Diagnoses Not on filedocumented in this encounter Care Teams Instructor Apparel Manufacture Relationship Specialty Start Date End Date Casimiro Perez MD PCP - General 05/03/15 documented as of this encounter
--- OUTSIDE RECORDS SUMMARY | 2024-01-19 15:31 | XMS_ITS | Clinical Summary ---
Author Organization [facility] Address [address] [place] [address] Care Team Providers Care Employment Interviewer Name Role Phone Casimiro Perez MD Primary Care Provider Nahed montes de oca Social History Tobacco Use Types Packs/Day Years Used Date Smoking Tobacco: Never Assessed Sex and Gender Information Value Date Recorded Sex Assigned at Not on file Gender Identity Not on file Sexual Orientation Not on file Plan of Treatment Health Maintenance Due Date Last Done Comments Hepatitis C Screen 1955 RSV Immunization ( o r 60+ Years) (1 - 1-dose 60+ series) 2014 Fall Risk Screening 11/09/2019 COVID-19 Vaccine (2022-24 season) 2023 Care Teams Employment Interviewer Relationship Specialty Start Date End Date Casimiro Perez MD PCP - General 05/03/15
--- OUTSIDE RECORDS SUMMARY | 2024-01-19 15:31 | XMS_ITS | Encounter Summary ---
Author Organization [facility] Address [facility] [place] [address] Care Team Providers Care Welt Stitch Cleaner Name Role Phone Adis Reinier ZIMMERMAN Primary Care Provider [phone] Encounter Details Date Type Department Care Team (Late st Contact Info) Description 01/18/2023 Telephone Cardiology at [address] [place] [address] Michelle Caicedo FURNACE BUILDER [facility] [place] [address] Social History Tobacco Use Types Packs/Day Years Used Date Smoking Tobacco: Never Alcohol Use Standard Drinks/Week Comments Never 0 (1 standard drink = 0.6 oz pur e alcohol) [facility] Inpatient Questions Answer Date Recorded Does Anyone [...] encounter Miscellaneous Notes * Telephone Encounter - Michelle Caicedo APRN - 01/18/2023 1:24 PM EDT Images from the original note were not included. 01/18/2023 Miguel Sanchez Initial Contact Date: 01/18/2023 Initial contact time: 1:28 PM Referring Provider: Dr. Dykes Patient Location: [facility] Past Medical History: DM Hypertension Hyperlipidemia COPD HFrEF 45% (2019) Presenting Symptoms per OSH: Patient is a 67-year-old with a past medical history of heart failure reduced EF (last known ejection fraction was 45% in 2020), diabetes, hypertension, hyperlipidemia and COPD. He presented to the [facility] emergency department after being redirected from the [facility] urgent walk-in clinic. He complains of 1 month of dyspnea on exertion and weakness. On presentation his oxygen saturation is in the low 90s on room air and he is tachypneic. His blood pressure is 150 over 90s. On exam he has bilateral lower extremity edema quantified as a little but does complain of abdominal edema. He does not check his weight at home. His proBNP was found to be greater than 10,000. Other lab abnormalities are a creatinine of 6.1 and a BUN of 63, last known baseline was in September 2022 with a creatinine of 1.5 and a BUN of 19. He is not in respiratory distress although he is somnolent, VBG pending. Echocardiogram is not available until the end of the week. A quick look ultrasound shows hypokinesis with likely EF less than 45% based on Dr. Dykes's assessment. Requesting transfer for ongoing management of presumed heart failure with reduced EF and acute kidney injury. Pertinent Diagnostic Findings: Troponin negative proBNP greater than 10,000 Chest x-ray with cardiomegaly and some congestion with question small effusion ECG: HR 71 sinus rhythm with LBBB (reportedly old) Past cardiac studies: Echo: 2019 SUMMARY: 1. Mild concentric left ventricular hypertrophy is observed. Global left ventricular systolic function is moderately reduced. Ejection fraction is estimated to be 45%. There is diffuse hypokinesis present. 2. The left atrium is normal in size. 3. No significant valvular abnormalities. 4. Other details as noted below. OSH Interventions: CXR Plan: Concern for HFrEF given known last EF of 45% and POC ultrasound VBG pending result Lasix 80 mg x 1 (home dose of 40 mg with urine output reportedly been taking at home) given HF presentation, and more diuretic needed due to elevated creatinine Echo on arrival, will need consult to nephrology given CLEM Accepted to Dr. Vizcarra's team pending bed availability Above recommendations were based on my discussion with Dr. Dykes; I have not personally interviewed or examined this patient. Advised to call the transfer center back with any changes in the patient condition. Michelle Caicedo, FURNACE BUILDER Pager [phone] 01/18/2023 documented in this encounter Plan of Treatment Upcoming Encounters Date Type Department Care Team (Late st Contact Info) Description 02/03/2024 10:00 AM EDT Procedure [place] [address] Austin Simon MD [facility] [place] [address] Lindy Box APRN [facility] [place] [address] documented as of this encounter Visit Diagnoses Not on filedocumented in this encounter Care Teams Welt Stitch Cleaner Relationship Specialty Start Date End Date Reinier Arceo PA [address] [facility] [address] [place] [address] PCP - General Internal Medicine 01/18/23 documented as of this encounter
--- OUTSIDE RECORDS SUMMARY | 2024-01-19 15:31 | XMS_ITS | Encounter Summary ---
Author Organization [facility] Address [address] [place] [address] Care Team Providers Care Olive Picker Name Role Phone Casimiro Perez MD Primary Care Provider Nahed montes de oca Encounter Details Date Type Department Care Team (Late st Contact Info) Description 09/11/2021 Lab Requisition [facility] Pathology & Laboratory Medicine - [facility] [address] [place] [address] Outr Resulting Lab, Provider Social History Tobacco [...] Procedure Name Priority Date/Time Associated Diagnosis Comments PSA TOTAL, DIAGNOSTIC Routine 09/10/2021 16:00 EDT documented in this encounter Results * PSA TOTAL, DIAGNOSTIC (09/10/2021 16:00 EDT) PSA 0.8 0.0 - 4.5 ng/mL 09/11/2021 18:18 EDT [facility] Blood VENOUS BLOOD / Unknown 09/10/2021 16:00 EDT 09/11/2021 17:17 EDT Narrative [facility] - 09/11/2021 18:18 EDT NOTE: Serum PSA concentration should not be interpreted as absolute evidence for the presence or absence of malignant disease. Assayed on Siemens [employer] XPT using chemiluminescent technology.??Values obtained by using different assay methods cannot be used interchangeably. Provider Outr Resulting Lab CHEMISTRY & BLOOD GAS ORDERABLES [facility] [address] [place] [address] documented in this encounter Visit Diagnoses Not on filedocumented in this encounter Care Teams Olive Picker Relationship Specialty Start Date End Date Casimiro Perez MD PCP - General 05/03/15 documented as of this encounter
--- OUTSIDE RECORDS SUMMARY | 2024-01-19 15:31 | XMS_ITS | Encounter Summary ---
Author Organization [facility] [place] [address] Care Team Providers Care Tank Hoop Bender Name Role Phone Von Miles MD Primary Care Provider [phone] Reason for Visit * Reason Comments Follow-up Encounter Details Date Type Department Care Team (Late st Contact Info) Description 04/17/2014 2:30 PM EDT Office Visit Dermatology at [address] [address] Sixto Doty MD [address] [place] [address] [place] [address] Neurodermatitis (Primary Dx) Discharge Disposition: Home Social History Tobacco Use Types Packs/Day Years Used Date Smoking Tobacco: Never Sex and Gender Information Value Date Recorded Sex Assigned at Not on file Gender Identity Not on file Sexual Orientation Not on file documented as of this encounter Patient Instructions * Patient Instructions* Sarai Acosta LPN - 04/17/2014 2:48 PM EDT [facility] Dermatitis: After Your Visit Your Care [...] help for plant rashes. ?? Try an enxy-pts-tuhbphf antihistamine such as diphenhydramine (Benadryl) or chlorpheniramine [...] more? Visit our health information library at [email or web address] You can also view health information on [employer], your personal patient account. Log in or sign up today. Enter F270 in the search box to learn more about Dermatitis: After Your Visit. ?? [id number] [employer]. Care instructions adapted under license by [facility]. This care instruction is for use with your licensed healthcare professional. If you have questions about a medical condition or this instruction, always ask your healthcare professional. [employer] disclaims any warranty or liability for your use of this information. Content Version: 9.9.197295; Last Revised: November 11, 2012 documented in this encounter Progress Notes * Sixto Doty MD - 04/17/2014 3:24 PM EDT Problem: Followup neurodermatitis. Miguel follows up and is doing better. Physical examination reveals that the numerous excoriated papules have largely flattened on the hips, knees, and arms, also on the upper chest. He still has active sites on the right lateral knee, on the right lateral hand, and on the left dorsal hand. Assessment and Plan: Neurodermatitis. a. Today symptomatic sites as noted above were injected with Kenalog. b. Continue triamcinolone cream, applying q.day b.i.d. to affected sites. c. Continue with q.h.s. dosings of hydroxyzine 25 mg. He does not like the doxepin and is not taking that. d. Return to clinic in another month for repeat check. The patient and I are pleased with his progress. COPY: Reina Alcala A.P.R.N. documented in this encounter Plan of Treatment Upcoming Encounters Date Type Department Care Team (Late st Contact Info) Description 02/03/2024 10:00 AM EDT [place] [address] Austin Simon MD [facility] [place] [address] Lindy Box APRN [facility] [place] [address] documented as of this encounter Visit Diagnoses Diagnosis Neurodermatitis- Primary Lichenification and lichen simplex chronicus documented in this encounter Care Teams Tank Hoop Bender Relationship Specialty Start Date End Date Von Miles MD [address] [place] [address] [place] [address] PCP - General 12/04/13 04/17/14 documented as of this encounter
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
--- OUTSIDE RECORDS SUMMARY | 2024-01-19 15:31 | XMS_ITS | Encounter Summary ---
Author Organization [facility] [place] [address] Care Team Providers Care Juvenile Corrections Officer Name Role Phone Adis Reinier ELSIE Primary Care Provider [phone] Encounter Details Date Type Department Care Team (Late st Contact Info) Description 01/18/2023 1:10 PM EDT Ancillary Procedure Radiology Library [place] [address] Dave Rowan MD [facility] [place] [address] Social History Tobacco Use Types Packs/Day Years Used Date Smoking Tobacco: Never Alcohol Use Standard Drinks/Week Comments Never 0 (1 standard drink = 0.6 oz pur e alcohol) [facility] Inpatient Questions Answer Date Recorded Does [...] 10:00 AM EDT [facility] [place] [address] Austin Simon MD [facility] [place] [address] Lindy Box APRN [facility] [place] [address] documented as of this encounter Procedures Procedure Name Priority Date/Time Associated Diagnosis Comments FILM LIBRARY STORAGE ONLY DX CHEST Routine 01/18/2023 1:08 PM EDT documented in this encounter Results * Film Library- Storage Only DX Chest (01/18/2023 1:08 PM EDT) Narrative [facility] - 01/18/2023 1:08 PM EDT This exam is auto-finalizing. It's purpose is for storage only. Dave Rowan MD IMG FILM LIBRARY ORD ERABLES [place], [place] documented in this encounter Visit Diagnoses Not on filedocumented in this encounter Care Teams Juvenile Corrections Officer Relationship Specialty Start Date End Date Reinier Arceo PA [address] [place] [address] PCP - General Internal Medicine 01/18/23 documented as of this encounter
[2024-01-19 16:29] LABS: HCT 37.2 % (40.0-50.0); HGB 11.9 g/dL (13.5-17.5); MCH 30.2 pg (27.0-33.0); MCV 94 fL (80-95); Platelet Count 207 10^3/uL (130-400); RBC 3.94 10^6/uL (4.36-5.78); RDW 16.3 % (11.8-14.1); RDW-SD 56.7 fL; WBC 8.18 10^3/uL (4.4-10.8)
[2024-01-19 16:55] LABS: ALT 33 U/L (16-63); AST 21 U/L (15-37); Albumin 3.3 g/dL (3.4-5.0); Alkaline Phosphatase 73 U/L (46-116); Anion Gap 9.3 mmol/L (3-11); BUN 49 mg/dL (7-18); Bilirubin, Total 0.79 mg/dL (0.2-1.0); CO2 24.7 mmol/L (21.0-32.0); Calcium 8.7 mg/dL (8.5-10.1); Chloride 108 mmol/L (98-107); Glucose 171 mg/dL (74-106); Potassium 5.6 mmol/L (3.5-5.1); Sodium 142 mmol/L (136-145); Total Protein 6.1 g/dL (6.4-8.2)
[2024-01-19 16:56] LABS: NT-proBNP > 35000 pg/mL (<300)
[2024-01-19 17:24] LABS: Iron 48 ug/dL (65-175); Total Iron Binding Capacity 232 ug/dL (250-450); Transferrin Sat 21 % (20-55)
== END 2024-01-19 15:28 | disposition home or self-care (01) ==
LOC: NCHCN 15:27
PROVIDERS: PCP Physician Assistant; Visit Provider Physician Assistant
DX: I50.42 Chronic combined systolic (congestive) and diastolic (congestive) heart failure (principal); N28.9 Disorder of kidney and ureter, unspecified; D64.9 Anemia, unspecified
CPT/HCPCS: 80053; 85027; 83540; 83550; 83880; 88305

== ENCOUNTER → 2024-01-20 14:03 | Outpatient (BNVA) | payer MEDICARE, MEDICAID, SELFPAY | PROVIDERS: PCP Physician Assistant; Referring Provider Physician Assistant; Visit Provider Nurse Practitioner Gerontology | DX: N40.1 Benign prostatic hyperplasia with lower urinary tract symptoms (principal); R33.8 Other retention of urine | CPT/HCPCS: 51702 ==

== ENCOUNTER 2024-01-27 15:35 | Inpatient (IN) | payer MEDICARE, MEDICAID, SELFPAY ==
[2024-01-27] VITALS (34 sets, daily range): BP systolic 115–134; BP diastolic 58–100; PULSE 58–104; RESP 13–26; TEMP 36.2–36.5; O2SAT 96–99
--- OUTSIDE RECORDS SUMMARY | 2024-01-27 16:30 | XMS_ITS | Encounter Summary ---
Author Organization Formerly [facility] [place] [address] Care Team Providers Care Customer Solutions Supervisor Name Role Phone Reinier Arceo Primary Care Provider [phone] Encounter Details Date Type Department Care Team (Latest Contact Info) Description 06/23/2023 2:30 PM EST Laboratory Appointment Lab [address] [place] [address] Chronic kidney disease, unspecified CKD stage; Stage 3 chronic kidney disease, unspecified whether stage 3a or 3b CKD Social History Tobacco Use Types Packs/Day Years Used Date Smoking Tobacco: Never Smokeless Tobacco: Never Alcohol Use Standard Drinks/Week Comments Never 0 (1 standard drink = 0.6 oz pur e alcohol) [facility] Inpatient Questions Answer Date Recorded Does [...] 10:00 AM EDT [place] [address] Austin Simon MD [facility] [place] [address] Lindy Box APRN [facility] [place] [address] documented as of this encounter [...] 2:43 PM EST) Neutrophils % 69.8 % [facility] Neutr Abs (ANC) 5.06 1.70 - 6.10 x10(3)/[facility] Lymphocytes % 19.0 % [facility] Lymphocytes Abs 1.4 0.9 - 3.2 x10(3)/[facility] Monocytes % 8.1 % [facility] Monocyte Abs 0.6 0.3 - 0.9 x10(3)/[facility] Eosinophils % 1.8 % [facility] Eosinophils Abs 0.1 0.0 - 0.4 x10(3)/[facility] Basophils % 1.0 % [facility] Basophils Abs 0.1 0.0 - 0.1 x10(3)/[facility] Immature Gran % 0.30 % [facility] Comment: Immature granulocytes(IG's)percentage and absolute count will include metamyelocytes, myelocytes, and promyelocytes. Blood smears from CBCs yielding IG's will be scanned manually for concordance. If this scan disagrees with the automated IG or if promyelocytes are noted, a manual differential will be performed. Angelica Gran Abs 0.02 0.00 - 0.04 x10(3)/[facility] Blood 06/23/2023 2:43 PM EST 06/23/2023 2:49 PM EST Narrative Resulting Agency Comment Spec In Lab Deonte Lugo MD HEMATOLOGY ORDERABL ES [facility] [place] [address] * (ABNORMAL) Hemogram (06/23/2023 2:43 PM EST) WBC 7.2 4.0 - 9.5 x10(3)/[facility] RBC 4.16(L) 4.58 - 5.54 x10(6)/[facility] Hemoglobin 12.1(L) 13.7 - 16.5 g/dL [facility] Hematocrit 35.6(L) 40.5 - 48.5 % [facility] MCV 85.6 82.9 - 93.1 fL [facility] MCH 29.1 27.5 - 32.1 pg [facility] MCHC 34.0 32.0 - 35.7 g/dL [facility] Platelets 205 145 - 357 x10(3)/[facility] RDWSD 42.2 36.0 - 45.0 [facility] RDWCV 13.6 11.4 - 13.8 % [facility] MPV 12.1 7.6 - 12.9 [facility] nRBC % Auto 0.0 % [facility] nRBC Abs Auto 0.000 0.000 - 0.000 x10(3)/[facility] Blood 06/23/2023 2:43 PM EST 06/23/2023 2:49 PM EST Narrative Resulting Agency Comment Spec In Lab Deonte Lugo MD HEMATOLOGY ORDERABL ES Performing Organization Address City/State/[facility] Co de Phone Number [facility] [place] [address] * (ABNORMAL) Basic Metabolic Panel (non-fasting) (06/23/2023 2:43 PM EST) Glucose Lvl 110 65 - 199 mg/dL [facility] Comment:Diabetes: >=200 mg/d L plus symptoms BUN 17 10 - 20 mg/dL [facility] Creatinine 2.10(H) 0.80 - 1.50 mg/dL [facility] Sodium 134(L) 135 - 145 mmol/L [facility] Potassium 4.7 3.5 - 5.0 mmol/L [facility] Comment: Please note: ??Patients with WBC >100,000 may have falsely elevated Potassium levels. ??For accurate Potassium quantification in these patients send serum separator tube (gold top) for subsequent determinations. ??Contact the Clinical Chemistry Laboratory if there are any questions. Chloride 101 98 - 107 mmol/L [facility] CO2 20(L) 22 - 31 mmol/L [facility] Anion Gap 13 5 - 15 mmol/L [facility] Calcium 8.9 8.5 - 10.5 mg/dL [facility] Estimated GFR 34(L) >=60 mL/min/1. 73 m?? [facility] Comment: This patient's estimated [...] In Lab Abel Brantley MD CHEMISTRY ORDERABLES [facility] [place] [address] * (ABNORMAL) PTH (06/23/2023 2:43 PM EST) PTH 110(H) 15 - 65 pg/mL [facility] Blood 06/23/2023 2:43 PM EST 06/23/2023 2:49 PM EST Narrative Resulting Agency Comment Spec In Lab Abel Brantley MD CHEMISTRY ORDERABLES Performing Organization Address [facility]/ZIP Co de Phone Number [facility] [place] [address] * (ABNORMAL) Ferritin (06/23/2023 2:43 PM EST) Ferritin 596(H) 31 - 409 ng/mL [facility] Comment: Please note that as of 06/02/2023, the reference intervals for Ferritin have been updated. Blood 06/23/2023 2:43 PM EST 06/23/2023 2:49 PM EST Narrative Resulting Agency Comment Spec In Lab Abel Brantley MD CHEMISTRY ORDERABLES Performing Organization Address [facility] Co de Phone Number [facility] [place] [address] * (ABNORMAL) Vitamin D, 25-Hydroxy (06/23/2023 2:43 PM EST) 25-OH Vit D Total 13(L) 21 - 100 ng/mL [facility] 25-OH Vit D Interp Deficient [facility] Blood 06/23/2023 2:43 PM EST 06/23/2023 2:49 PM EST Narrative Resulting Agency Comment Spec In Lab Abel Brantley MD CHEMISTRY ORDERABLES Performing Organization Address [facility] Co de Phone Number [facility] [place] [address] * (ABNORMAL) Cystatin C (06/23/2023 2:43 PM EST) Cystatin C 2.81(H) 0.67 - 1.21 mg/L [facility] Comment: Test Performed by: [address] [address] Public Housing Manager: Jimmy Zavala M.D. Ph.D.; CLIA# [id number] Cystatin C eGFR 19(L) >60 mL/min/BS A [facility] Comment: Estimated GFR calculated using [...] with the new assay. Test Performed by: [place] [address] Public Housing Manager: Jimmy Zavala M.D. Ph.D.; CLIA# [id number] Blood 06/23/2023 2:43 PM EST 06/23/2023 4:05 PM EST Narrative Resulting Agency Comment Spec In Lab Abel Brantley MD CHEMISTRY ORDERABLES Performing Organization Address [facility] Co de Phone Number [facility] [place] [address] * (ABNORMAL) Iron and TIBC (06/23/2023 2:43 PM EST) Pathologist [facility] Iron 53 45 - 160 mcg/dL [facility] TIBC 170(L) 250 - 450 mcg/dL [facility] Iron Saturation 31 20 - 50 % [facility] Blood 06/23/2023 2:43 PM EST 06/23/2023 2:49 PM EST Narrative Resulting Agency Comment Spec In Lab Abel Brantley MD CHEMISTRY ORDERABLES Performing Organization Address [facility] Co de Phone Number [facility] [place] [address] * (ABNORMAL) Free Light Chains, Serum (06/23/2023 2:43 PM EST) [place] Free Light Chain 7.48(H) 0.72 - 2.75 mg/dL [facility] Lambda Free Light Chain 4.87(H) 0.57 - 2.15 mg/dL [facility] [place] Lambda FLC Ratio 1.5359 0.4000 - 2.5800 [facility] Blood 06/23/2023 2:43 PM EST 06/23/2023 2:49 PM EST Narrative Resulting Agency Comment Spec In Lab Abel Brantley MD CHEMISTRY ORDERABLES Performing Organization Address [facility] de Phone Number [facility] [place] [address] * Albumin Level (06/23/2023 2:43 PM EST) Albumin 3.8 3.2 - 5.2 g/dL [facility] Blood 06/23/2023 2:43 PM EST 06/23/2023 2:49 PM EST Narrative Resulting Agency Comment Spec In Lab Abel Brantley MD CHEMISTRY ORDERABLES Performing Organization Address [facility] de Phone Number [facility] [place] [address] * Phosphorus (06/23/2023 2:43 PM EST) Phosphorus 3.4 2.5 - 4.5 mg/dL [facility] Blood 06/23/2023 2:43 PM EST 06/23/2023 2:49 PM EST Narrative Resulting Agency Comment Spec In Lab Abel Brantley MD CHEMISTRY ORDERABLES Performing Organization Address [facility] de Phone Number [facility] [place] [address] * Uric acid (06/23/2023 2:43 PM EST) Uric Acid 7.7 3.5 - 8.5 mg/dL [facility] Blood 06/23/2023 2:43 PM EST 06/23/2023 2:49 PM EST Narrative Resulting Agency Comment Spec In Lab Abel Brantley MD CHEMISTRY ORDERABLES [facility] [place] [address] documented in this encounter Visit Diagnoses Diagnosis Chronic kidney disease, unspecified CKD stage Stage 3 chronic kidney disease, unspecified whether stage 3a or 3b CKD documented in this encounter Care Teams Customer Solutions Supervisor Relationship Specialty Start Date End Date Reinier Arceo PA [address] [place] [address] PCP - General Internal Medicine 01/18/23 documented as of this encounter
--- OUTSIDE RECORDS SUMMARY | 2024-01-27 16:30 | XMS_ITS | Encounter Summary ---
Author Organization [facility] [place] [address] Care Team Providers Care Veneer Sample Maker Name Role Phone Reinier Arceo Primary Care Provider [phone] Encounter Details Date Type Department Care Team (Late st Contact Info) Description 09/17/2023 Telephone Urology at [facility] [place] [address] Meche Donato APRN [facility] [place] [address] Social History Tobacco Use Types Packs/Day Years [...] 10:00 AM EDT [place] [address] Austin Simon MD [facility] [place] [address] Lindy Box APRN [facility] [place] [address] documented as of this encounter Visit Diagnoses Not on filedocumented in this encounter Care Teams Veneer Sample Maker Relationship Specialty Start Date End Date Reinier Arceo PA [address] [place] [address] PCP - General Internal Medicine 01/18/23 documented as of this encounter
--- OUTSIDE RECORDS SUMMARY | 2024-01-27 16:30 | XMS_ITS | Encounter Summary ---
Author Organization [facility] Address [facility] [place] [address] Care Team Providers Care Speech And Language Assistant Name Role Phone Reinier Arceo Primary Care Provider [phone] Encounter Details Date Type Department Care Team [...] 10:00 AM EDT Procedure [place] [address] Austin Simon MD [facility] [place] [address] Lindy Box APRN [facility] [place] [address] documented as of this encounter Visit Diagnoses Not on filedocumented in this encounter Care Teams Speech And Language Assistant Relationship Specialty Start Date End Date Reinier Arceo PA [address] [place] [address] PCP - General Internal Medicine 01/18/23 documented as of this encounter
--- OUTSIDE RECORDS SUMMARY | 2024-01-27 16:30 | XMS_ITS | Encounter Summary ---
Author Organization [facility] [place] [address] Care Team Providers Care Speedboat Operator Name Role Phone Reinier Arceo Primary Care Provider [phone] Encounter Details Date Type Department Care Team (Late st Contact Info) Description 10/04/2023 4:20 PM EDT Office Visit Urology at [facility] [place] [address] Austin Simon MD [facility] [place] [address] Urinary retention Social History Tobacco Use Types Packs/Day Years Used Date Smoking Tobacco: Never Smokeless Tobacco: Never Alcohol Use Standard Drinks/Week Comments Never 0 (1 standard drink = 0.6 oz pur e alcohol) [facility] Inpatient Questions Answer Date Recorded [...] Simon MD - 10/04/2023 4:20 PM EDT [facility] SECTION OF UROLOGY UROLOGY CLINIC VISIT Name: [...] note: Found in retention after presenting to [facility] (12/2022) for SOB and CHF exacerbation. [...] has been undergoing monthly catheter exchanges at [facility] Urology Of note, he has a void trial scheduled tomorrow at [facility]. Denies hematuria. He is currently taking finasteride. [...] above. Austin Simon MD Section of Urology [facility] Office: [phone] documented in this encounter Plan of Treatment Upcoming Encounters Date Type Department Care Team (Late st Contact Info) Description 02/03/2024 10:00 AM EDT [place] [address] Austin Simon MD [facility] [place] [address] Lindy Box APRN [facility] [place] [address] documented as of this encounter Visit Diagnoses Diagnosis Urinary retention Retention of urine, unspecified documented in this encounter Care Teams Speedboat Operator Relationship Specialty Start Date End Date Reinier Arceo PA [address] [place] [address] PCP - General Internal Medicine 01/18/23 documented as of this encounter
--- OUTSIDE RECORDS SUMMARY | 2024-01-27 16:30 | XMS_ITS | Encounter Summary ---
Author Organization [facility] [place] [address] Care Team Providers Care Corrugator Name Role Phone Reinier Arceo Primary Care Provider [phone] Reason for Visit * Reason Onset Date Comments Medication Refill 07/12/2023 Encounter Details Date Type Department Care Team (Late st Contact Info) Description 07/12/2023 Telephone Urology at [facility] [place] [address] Martin Elizabeth, planer operator Refill Social History Tobacco Use Types Packs/Day Years Used Date Smoking Tobacco: Never Smokeless Tobacco: Never Alcohol Use Standard Drinks/Week Comments Never 0 (1 standard drink = 0.6 oz pur e alcohol) [facility] Inpatient Questions Answer Date Recorded Does [...] like to do repeat void trial at [facility] at time of next alfaro exchange. We [...] 10:00 AM EDT [place] [address] Austin Simon MD [facility] [place] [address] Lindy Box APRN [facility] [place] [address] documented as of this encounter Visit Diagnoses Not on filedocumented in this encounter Care Teams Corrugator Relationship Specialty Start Date End Date Reinier Arceo PA [address] [place] [address] PCP - General Internal Medicine 01/18/23 documented as of this encounter
--- OUTSIDE RECORDS SUMMARY | 2024-01-27 16:30 | XMS_ITS | Encounter Summary ---
Author Organization [facility] [place] [address] Care Team Providers Care Chiropractic Teacher Name Role Phone Reinier Arceo Primary Care Provider [phone] Encounter Details Date Type Department Care Team (Latest Contact Info) Description 08/04/2023 1:05 PM EST Laboratory Appointment Lab [address] [place] [address] Chronic kidney disease, unspecified CKD stage Social History Tobacco Use Types Packs/Day Years Used Date Smoking Tobacco: Never Smokeless Tobacco: Never Alcohol Use Standard Drinks/Week Comments Never 0 (1 standard drink = 0.6 oz pur e alcohol) [facility] Inpatient Questions Answer Date Recorded [...] 10:00 AM EDT [place] [address] Austin Simon MD [facility] [place] [place] [address] Lindy Box APRN [facility] [place] [address] documented as of this encounter [...] Glucose Lvl 153 65 - 199 mg/dL [facility] Comment:Diabetes: >=200 mg/d L plus symptoms BUN 17 10 - 20 mg/dL [facility] Creatinine 2.02(H) 0.80 - 1.50 mg/dL [facility] Sodium 134(L) 135 - 145 mmol/L [facility] Potassium 4.8 3.5 - 5.0 mmol/L [facility] Comment: Please note: ??Patients with WBC >100,000 may have falsely elevated Potassium levels. ??For accurate Potassium quantification in these patients send serum separator tube (gold top) for subsequent determinations. ??Contact the Clinical Chemistry Laboratory if there are any questions. Chloride 98 98 - 107 mmol/L [facility] CO2 23 22 - 31 mmol/L [facility] Anion Gap 13 5 - 15 mmol/L [facility] Calcium 9.6 8.5 - 10.5 mg/dL [facility] Estimated GFR 35(L) >=60 mL/min/1. 73 m?? [facility] [...] Brantley MD CHEMISTRY ORDERABLES Performing Organization Address City/[facility] Co de Phone Number [facility] [place] [address] * Phosphorus (08/04/2023 12:55 PM EST) Phosphorus 3.4 2.5 - 4.5 mg/dL [facility] Blood 08/04/2023 12:5 5 PM EST 08/04/2023 1:44 PM EST Narrative Resulting Agency Comment Spec In Lab Abel Brantley MD CHEMISTRY ORDERABLES Performing Organization Address City/[facility] Co de Phone Number [facility] [place] [address] documented in this encounter Visit Diagnoses Diagnosis Chronic kidney disease, unspecified CKD stage documented in this encounter Care Teams Chiropractic Teacher Relationship Specialty Start Date End Date Reinier Arceo PA [address] [place] [address] PCP - General Internal Medicine 01/18/23 documented as of this encounter
--- OUTSIDE RECORDS SUMMARY | 2024-01-27 16:30 | XMS_ITS | Encounter Summary ---
Author Organization [facility] [place] [address] Care Team Providers Care Mop Handle Assembler Name Role Phone Reinier Arceo Primary Care Provider [phone] Encounter Details Date Type Department Care Team [...] 10:00 AM EDT Procedure visit Urology at [facility] [place] [place] [address] Austin Simon MD [facility] [place] [address] Lindy Box APRN [facility] [place] [place] [address] documented as of this encounter Visit Diagnoses Not on filedocumented in this encounter Care Teams Mop Handle Assembler Relationship Specialty Start Date End Date Reinier Arceo PA [address] [place] [address] PCP - General Internal Medicine 01/18/23 documented as of this encounter
--- OUTSIDE RECORDS SUMMARY | 2024-01-27 16:30 | XMS_ITS | Encounter Summary ---
Author Organization [facility] [place] [address] Care Team Providers Care Senior Licensing Manager Name Role Phone Reinier Arceo Primary Care Provider [phone] Encounter Details Date Type Department Care Team [...] 10:00 AM EDT Procedure visit Urology at [facility] [place] [address] Austin Simon MD [facility] [place] [id number] Lindy Box APRN [facility] [place] [place] [address] documented as of this encounter Visit Diagnoses Not on filedocumented in this encounter Care Teams Senior Licensing Manager Relationship Specialty Start Date End Date Reinier Arceo PA [address] [place] [address] PCP - General Internal Medicine 01/18/23 documented as of this encounter
--- OUTSIDE RECORDS SUMMARY | 2024-01-27 16:30 | XMS_ITS | Encounter Summary ---
Author Organization [facility] Address [facility] [place] [address] Care Team Providers Care Set Designer Name Role Phone Reinier Arceo Primary Care Provider [phone] Encounter Details Date Type Department Care Team (Latest Contact Info) Description 06/23/2023 4:00 PM EST Office Visit [place] [address] Deonte Lugo MD [facility] [place] [address] Stage 3b chronic kidney disease (Primary Dx); Stage 3 chronic kidney disease, unspecified whether stage 3a or 3b CKD; Vitamin D deficiency; Hypertension, unspecified type Social History Tobacco Use Types Packs/Day Years Used Date Smoking Tobacco: Never Smokeless Tobacco: Never Tobacco Cessation:Counseling Given: Not Answered Alcohol Use Standard Drinks/Week Comments Never 0 (1 standard drink = 0.6 oz pur e alcohol) [facility] Inpatient Questions Answer Date Recorded Does [...] included. Nephrology-Hypertension Clinic Follow-up Note Miguel Sanchez [id number] ID: 67 y.o.year-old male for follow up [...] with spacer inhalational spacing device (Chris Aerosol [place] Enhancer) Spacer by [facility]Non- Drug; Combo Route) route. nitroGLYcerin (Nitrostat) 0.4 [...] Visit from 06/23/2023 in Nephrology Hypertension at [facility] Weight 83.5 kg (184 lb) Height 165.1 [...] in the past but never in a [facility] (I don't have access to these [...] as documented. Reina Yang MD Nephrology Pager: [phone] documented in this encounter Plan of Treatment Upcoming Encounters Date Type Department Care Team (Late st Contact Info) Description 02/03/2024 10:00 AM EDT [place] [address] Austin Simon MD [facility] [place] [address] Lindy Box APRN [facility] [place] [address] documented as of this encounter Results * Uric acid (06/23/2023 2:43 PM EST) Pathologist [facility] Uric Acid 7.7 3.5 - 8.5 mg/dL [facility] Blood 06/23/2023 2:43 PM EST 06/23/2023 2:49 PM EST Narrative Resulting Agency Comment Spec In Lab Abel Brantley MD CHEMISTRY ORDERABLES Performing Organization Address [facility] Phone Number [facility] [place] [address] * Phosphorus (06/23/2023 2:43 PM EST) [facility] Phosphorus 3.4 2.5 - 4.5 mg/dL [facility] Blood 06/23/2023 2:43 PM EST 06/23/2023 2:49 PM EST Narrative Resulting Agency Comment Spec In Lab Abel Brantley MD CHEMISTRY ORDERABLES Performing Organization Address [facility] de Phone Number [facility] [place] [address] * Albumin Level (06/23/2023 2:43 PM EST) [facility] Albumin 3.8 3.2 - 5.2 g/dL [facility] Blood 06/23/2023 2:43 PM EST 06/23/2023 2:49 PM EST Narrative Resulting Agency Comment Spec In Lab Abel Brantley MD CHEMISTRY ORDERABLES Performing Organization Address [facility] Phone Number [facility] [place] [address] * (ABNORMAL) Free Light Chains, Serum (06/23/2023 2:43 PM EST) [facility] [place] Free Light Chain 7.48(H) 0.72 - 2.75 mg/dL [facility] Lambda Free Light Chain 4.87(H) 0.57 - 2.15 mg/dL [facility] [place] Lambda FLC Ratio 1.5359 0.4000 - 2.5800 [facility] Blood 06/23/2023 2:43 PM EST 06/23/2023 2:49 PM EST Narrative Resulting Agency Comment Spec In Lab Abel Brantley MD CHEMISTRY ORDERABLES Performing Organization Address City/[facility]/ZIP Co de Phone Number [facility] [place] [address] * (ABNORMAL) Iron and TIBC (06/23/2023 2:43 PM EST) Iron 53 45 - 160 mcg/dL [facility] TIBC 170(L) 250 - 450 mcg/dL [facility] Iron Saturation 31 20 - 50 % [facility] Blood 06/23/2023 2:43 PM EST 06/23/2023 2:49 PM EST Narrative Resulting Agency Comment Spec In Lab Abel Brantley MD CHEMISTRY ORDERABLES Performing Organization Address City/[facility] Co de Phone Number [facility] [place] [address] * (ABNORMAL) Cystatin C (06/23/2023 2:43 PM EST) Cystatin C 2.81(H) 0.67 - 1.21 mg/L [facility] Comment: Test Performed by: [place] [address] [employer] Director: Jimmy Zavala M.D. Ph.D.; CLIA# [id number] Cystatin C eGFR 19(L) >60 mL/min/BS A [...] with the new assay. Test Performed by: [facility] - [address] [address] [employer] Director: Jimmy Zavala M.D. Ph.D.; CLIA# [id number] Blood 06/23/2023 2:43 PM EST 06/23/2023 4:05 PM EST Narrative Resulting Agency Comment Spec In Lab Abel Brantley MD CHEMISTRY ORDERABLES Performing Organization Address [facility] Co de Phone Number [facility] [place] [address] * (ABNORMAL) Vitamin D, 25-Hydroxy (06/23/2023 2:43 PM EST) 25-OH Vit D Total 13(L) 21 - 100 ng/mL [facility] 25-OH Vit D Interp Deficient [facility] Blood 06/23/2023 2:43 PM EST 06/23/2023 2:49 PM EST Narrative Resulting Agency Comment Spec In Lab Abel Brantely MD CHEMISTRY ORDERABLES Performing Organization Address [facility] Co de Phone Number [facility] [place] [address] * (ABNORMAL) Ferritin (06/23/2023 2:43 PM EST) Ferritin 596(H) 31 - 409 ng/mL [facility] Comment: Please note that as of 06/02/2023, the reference intervals for Ferritin have been updated. Blood 06/23/2023 2:43 PM EST 06/23/2023 2:49 PM EST Narrative Resulting Agency Comment Spec In Lab Abel Brantley MD CHEMISTRY ORDERABLES Performing Organization Address City/[facility]/ZIP Co de Phone Number [facility] [place] [address] * (ABNORMAL) PTH (06/23/2023 2:43 PM EST) PTH 110(H) 15 - 65 pg/mL [facility] Blood 06/23/2023 2:43 PM EST 06/23/2023 2:49 PM EST Narrative Resulting Agency Comment Spec In Lab Abel Brantley MD CHEMISTRY ORDERABLES Performing Organization Address City/State/[facility] Co de Phone Number [facility] [place] [address] * (ABNORMAL) Basic Metabolic Panel (non-fasting) (06/23/2023 [...] Brantley MD CHEMISTRY ORDERABLES [facility] [place] [address] documented in this encounter Visit Diagnoses Diagnosis Stage 3b chronic kidney disease- Primary Stage 3 chronic kidney disease, unspecified whether stage 3a or 3b CKD Vitamin D deficiency Unspecified vitamin D deficiency Hypertension, unspecified type documented in this encounter Care Teams Set Designer Relationship Specialty Start Date End Date Reinier Arceo PA [address] [place] [address] PCP - General Internal Medicine 01/18/23 documented as of this encounter
--- OUTSIDE RECORDS SUMMARY | 2024-01-27 16:30 | XMS_ITS | Encounter Summary ---
Author Organization [place] [address] Care Team Providers Care Security Site Supervisor Name Role Phone Reinier Arceo Primary Care Provider [phone] Reason for Referral * Consultation (Routine) - Closed Specialty Diagnoses / Procedures Referred By Contac t Referred To Contact Cardiology Diagnoses Chronic combined systolic (congestive) and diastolic (congestive) heart failure Increased SOB. Chronic combined systolic (congestive) and diastolic (congestive) heart failure. Overdue 6 month f/up (around 10/2023) per 06/2023 DANIEL-Bita/Reinier Gregory PA [address] [place] [address] [facility] [address] [place] [phone] Referral ID Status Reason Start Date Expiration Date V isits Requested Visits Authorized [id number] Closed Consult, Test & Treat 10/15/2023 10/14/2024 1 1 Encounter Details Date Type Department Care Team (Latest Contact Info) Description 10/15/2023 Transcribe Orders eDH Incoming Referrals [phone] Reinier Arceo PA [address] [place] [address] Chronic combined systolic (congestive) and [...] 10:00 AM EDT Procedure visit Urology at [facility] [place] [address] Austin Simon MD [facility] [place] [address] Lindy Box APRN [facility] [place] [address] Scheduled Referrals Name Type Priority Associated Diagnoses Order Schedule Referral to Cardiology Outpatient Referral Routine Chronic combined systolic (congestive) and diastolic (congestive) heart failure Ordered: 10/15/2023 documented as of this encounter Visit Diagnoses Diagnosis Chronic combined systolic (congestive) and diastolic (congestive) heart failure documented in this encounter Care Teams Security Site Supervisor Relationship Specialty Start Date End Date Reinier Arceo PA [address] [place] [address] PCP - General Internal Medicine 01/18/23 documented as of this encounter
--- OUTSIDE RECORDS SUMMARY | 2024-01-27 16:30 | XMS_ITS | Encounter Summary ---
[place] [address] Care Team Providers Care Structural Worker Name Role Phone Reinier Arceo Primary Care Provider [phone] Reason for Referral * Consultation (Routine) - Authorized Specialty Diagnoses / Procedures Referred By Fady park Referred To Contact Urology Diagnoses Benign prostatic hyperplasia with lower urinary tract symptoms, symptom details unspecified Other retention of urine Tiffanie Muñoz APRN [address] [place] [address] [facility] [place] [address] Referral ID Status Reason Start Date Expiration Date Visits Requested Visits Authorized [id number] Authorized Consult, Test & Treat PCP Updated and/or Approved 06/01/2023 05/31/2024 6 6 Encounter Details Date Type Department Care Team (Latest Contact Info) Description 06/01/2023 Transcribe Orders eDH Incoming Referrals [phone] Tiffanie Muñoz APRN [address] [place], [place] [id number] Benign prostatic hyperplasia with lower urinary tract symptoms, symptom details unspecified; Other retention of urine Social History Tobacco Use Types Packs/Day Years Used Date Smoking Tobacco: Never Alcohol Use Standard Drinks/Week Comments Never 0 (1 standard drink = 0.6 oz pur e alcohol) [facility] Inpatient Questions Answer Date Recorded [...] 10:00 AM EDT Procedure visit Urology at [facility] [place] [address] Austin Simon MD [facility] [place] [address] Lindy Box APRN [facility] [place] [address] Scheduled Referrals Name Type Priority Associated Diagnoses Orde r Schedule Referral to Urology Outpatient Referral Routine Benign prostatic hyperplasia with lower urinary tract symptoms, symptom details unspecified Other retention of urine Ordered: 06/01/2023 documented as of this encounter Visit Diagnoses Diagnosis Benign prostatic hyperplasia with lower urinary tract symptoms, symptom details unspecified Other retention of urine documented in this encounter Care Teams Structural Worker Relationship Specialty Start Date End Date Reinier Arceo PA [address] [place] [address] PCP - General Internal Medicine 01/18/23 documented as of this encounter
--- OUTSIDE RECORDS SUMMARY | 2024-01-27 16:30 | XMS_ITS | Encounter Summary ---
[place] [address] Care Team Providers Care Bead Inspector Name Role Phone Reinier Arceo Primary Care Provider [phone] Reason for Referral * Diagnostic Test (Routine) - Closed Specialty Diagnoses / Procedures Referred By Fady park Referred To Contact Radiology Diagnoses Benign prostatic hyperplasia with urinary retention Scrotal swelling Procedures CT Pelvis Soft Tissue (GI DAIRY LAB TECHNICIAN) wo Contrast Meche Donato APRN [facility] [place] [address] [facility] [place] [address] Referral ID Status Reason Start Date Expiration Date V isits Requested Visits Authorized [id number] Closed Specialty Service Requested 07/07/2023 01/04/2025 1 1 Reason for Visit * Consultation (Routine) - Authorized Specialty Diagnoses / Procedures Referred By Fady park Referred To Contact Urology Diagnoses Benign prostatic hyperplasia with lower urinary tract symptoms, symptom details unspecified Other retention of urine Tiffanie Muñoz APRN [address] [place] [address] [facility] [place] [address] Referral ID Status Reason Start Date Expiration Date Visits Requested Visits Authorized [id number] Authorized Consult, Test & Treat PCP Updated and/or Approved 06/01/2023 05/31/2024 6 6 Encounter Details Date Type Department Care Team ([facility] st Contact Info) Description 07/07/2023 11:20 AM EST Office [place] [address] Meche Donato APRN [facility] [place] [place] [address] Screening PSA (prostate specific antigen); Benign prostatic [...] in this encounter Progress Notes * Meche Donato, MIDDLE SCHOOL SCIENCE TEACHER - 07/07/2023 11:20 AM EST [facility] SECTION OF UROLOGY UROLOGY CLINIC VISIT Name: Miguel Sancehz : 1955 Date: 07/07/2023 Referred by: Tiffanie Muñoz Chief Complaint: BPH with urinary retention. History of Present Illness: Miguel Sanchez is a 67 y.o. male who is being seen at the request of Johanne Muñoz for evaluation of BPH w/ urinary retention and consideration of BPH surgery. Urinary retention was initially discovered when presenting to [facility] for SOB and CHF exacerbation.He was [...] has been undergoing monthly catheter exchanges at [facility] Urology, last documented void trial was there [...] TIMES DAILY inhalational spacing device (Chris Aerosol [place] Enhancer) Spacer Misc.(Non-Drug; Combo Route) ketoconazole (Nizoral) [...] like to do repeat void trial at [facility] at time of next alfaro exchange. [...] satisfaction. Meche Donato APRN Section of Urology [facility] documented in this encounter Plan of Treatment Upcoming Encounters Date Type Department Care Team (Late st Contact Info) Description 02/03/2024 10:00 AM EDT Procedure visit [place] [address] Austin Simon MD [facility] [place] [address] Lindy Box APRN [facility] [place] [address] documented as of this encounter Procedures Procedure Name Priority Date/Time Associated Diagnosis Comments HC PROSTATE SPECIFIC AG SCREENING Routine 07/07/2023 12:21 PM EST Screening PSA (prostate specific antigen) documented in this encounter Results * CT Pelvis Soft Tissue (GI DAIRY LAB TECHNICIAN) wo Contrast (09/14/2023 1:38 PM EDT) Anatomical [...] who have questions please contact the health customer care team coach that requested your imaging first. ? Narrative 09/14/2023 4:39 PM EDT EXAMINATION: CT PELVIS SOFT TISSUE (GI DAIRY LAB TECHNICIAN) WO CONTRAST CLINICAL HISTORY: prostate sizing and [...] 09/14/2023 EXAMINATION: CT PELVIS SOFT TISSUE (GI DAIRY LAB TECHNICIAN) WO CONTRAST CLINICAL HISTORY: prostate sizing and [...] patients who have questions please contactthe health customer care team coach that requested your imaging first. Meche Donato APRN IMG CT ORDERABLES * PSA Screen (07/07/2023 12:21 PM EST) PSA Total 1.62 0.00 - 4.00 ng/mL [facility] Comment: PLEASE NOTE: The [...] Resulting Agency Comment Spec In Lab Meche Donato APRN CHEMISTRY ORDERABLE S [facility] [place] [address] documented in this encounter Visit Diagnoses Diagnosis Screening PSA (prostate specific antigen) Special screening for malignant neoplasm of prostate Benign prostatic hyperplasia with urinary retention Scrotal swelling Edema of male genital organs Benign prostatic hyperplasia with urinary retention Scrotal swelling Edema of male genital organs documented in this encounter Care Teams Bead Inspector Relationship Specialty Start Date End Date Reinier Arceo PA [address] [place] [address] PCP - General Internal Medicine 01/18/23 documented as of this encounter
--- OUTSIDE RECORDS SUMMARY | 2024-01-27 16:30 | XMS_ITS | Encounter Summary ---
Author Organization [facility] [place] [address] Care Team Providers Care Copy Chief Name Role Phone Reinier Arceo Primary Care Provider [phone] Reason for Referral * Diagnostic Test (Routine) - Closed Specialty Diagnoses / Procedures Referred By Contac t Referred To Contact Radiology Diagnoses Benign prostatic hyperplasia with urinary retention Scrotal swelling Procedures CT Pelvis Soft Tissue (GI ANDROID IOS DEVELOPER) wo Contrast Meche Donato APRN [facility] [place] [address] [facility] [place] [address] Referral ID Status Reason Start Date Expiration Date V isits Requested Visits Authorized [id number] Closed Specialty Service Requested 07/07/2023 01/04/2025 1 1 Reason for Visit * Diagnostic Test (Routine) - Closed Specialty Diagnoses / Procedures Referred By Contbella t Referred To Contact Radiology Diagnoses Benign prostatic hyperplasia with urinary retention Scrotal swelling Procedures CT Pelvis Soft Tissue (GI ANDROID IOS DEVELOPER) wo Contrast Meche Donato APRN [facility] [place] [address] [facility] [place] [address] Referral ID Status Reason Start Date Expiration Date V isits Requested Visits Authorized [id number] Closed Specialty Service Requested 07/07/2023 01/04/2025 1 1 Encounter Details Date Type Department Care Team (Latest Contact Info) Description 09/14/2023 10:43 AM EDT - 09/14/2023 11:59 PM EDT Hospital Encounter CT Scan [place] [address] Meche Donato APRN [facility] [place] [address] Benign prostatic hyperplasia with urinary retention; Scrotal swelling Discharge Disposition: Home Social History Tobacco Use Types Packs/Day Years Used Date Smoking Tobacco: Never Smokeless Tobacco: Never Alcohol Use Standard Drinks/Week Comments Never 0 (1 standard drink = 0.6 oz pur e alcohol) [facility] Inpatient Questions Answer Date Recorded Does [...] Sig Dispensed Refills Start Date End Date ivermectin (Stromectol) 3 mg tablet TAKE 5 AND 1/2 TABLETS BY MOUTH ONCE A SINGLE DOSE. REPEAT DOSE IN 2 WEEKS. 08/02/2023 OLANZapine (ZyPREXA) 15 mg tablet Take 15 mg by mouth nightly. 07/28/2023 ergocalciferoL, vitamin D2, (vitamin D2) 50,000 unit capsuleIndications:Laura min D deficiency Take 1 capsule by mouth once a week. 12 capsule 3 08/04/2023 finasteride (Proscar) 5 mg tablet Take 1 tablet by mouth daily. 90 tablet 3 07/13/2023 cholecalciferol, Vitamin D3, 50 mcg (2,000 unit) [...] 10:00 AM EDT Procedure [place] [address] Austin Simon MD [facility] [place] [address] Lindy Box APRN [facility] [place] [address] documented as of this encounter Procedures Procedure Name Priority Date/Time Associated Diagnosis Comments CT PELVIS SOFT TISSUE (GI ANDROID IOS DEVELOPER) WO CONTRAST Routine 09/14/2023 1:38 PM EDT Benign prostatic hyperplasia with urinary retention Scrotal swelling documented in this encounter Results * CT Pelvis Soft Tissue (GI ANDROID IOS DEVELOPER) wo Contrast (09/14/2023 1:38 PM EDT) Anatomical [...] who have questions please contact the health adult care manager that requested your imaging first. ? Electronically signed by: Halie Shell MD, [facility] ([phone]), at 09/14/2023 4:39 PM Narrative 09/14/2023 4:39 PM EDT EXAMINATION: CT PELVIS SOFT TISSUE (GI ANDROID IOS DEVELOPER) WO CONTRAST CLINICAL HISTORY: prostate sizing and [...] 09/14/2023 EXAMINATION: CT PELVIS SOFT TISSUE (GI ANDROID IOS DEVELOPER) WO CONTRAST CLINICAL HISTORY: prostate sizing and [...] patients who have questions please contactthe health adult care manager that requested your imaging first. Electronically signed by: Halie Shell MD, [facility]([phone]), at 09/14/2023 4:39 PM Meche Donato APRN IMG CT ORDERABLES documented in this encounter Visit Diagnoses Diagnosis Benign prostatic hyperplasia with urinary retention Scrotal swelling Edema of male genital organs documented in this encounter Care Teams Copy Chief Relationship Specialty Start Date End Date Reinier Arceo PA [address] [place] [address] PCP - General Internal Medicine 01/18/23 documented as of this encounter
--- OUTSIDE RECORDS SUMMARY | 2024-01-27 16:30 | XMS_ITS | Encounter Summary ---
Author Organization [facility] [place] [address] Care Team Providers Care Transit Mechanic Name Role Phone Reinier Arceo Primary Care Provider [phone] Encounter Details Date Type Department Care Team (Late st Contact Info) Description 11/23/2023 Telephone [place] [address] Courtney Sainz Social History Tobacco Use Types Packs/Day Years Used Date Smoking Tobacco: Never Smokeless Tobacco: Never Alcohol Use Standard Drinks/Week Comments Never 0 (1 standard drink = 0.6 oz pur e alcohol) [facility] Inpatient Questions Answer Date Recorded Does [...] 10:00 AM EDT [place] [address] Austin Simon MD [facility] [place] [address] Lindy Box APRN [facility] [place] [address] documented as of this encounter Visit Diagnoses Not on filedocumented in this encounter Care Teams Transit Mechanic Relationship Specialty Start Date End Date Reinier Arceo PA [address] [place] [address] PCP - General Internal Medicine 01/18/23 documented as of this encounter
--- OUTSIDE RECORDS SUMMARY | 2024-01-27 16:30 | XMS_ITS | Encounter Summary ---
Author Organization [facility] Address [facility] [place] [address] Care Team Providers Care Desulphuring Operator Name Role Phone Reinier Arceo Primary Care Provider [phone] Encounter Details Date Type Department Care Team (Latest Contact Info) Description 02/24/2023 4:00 PM EDT Office Visit [place] [phone] Deonte Lugo MD [facility] [place] [address] Chronic kidney disease, unspecified CKD stage; Chronic kidney disease, stage 4 (severe) Social History Tobacco Use Types Packs/Day Years Used Date Smoking Tobacco: Never Tobacco Cessation:Counseling Given: Not Answered Alcohol Use Standard Drinks/Week Comments Never 0 (1 standard drink = 0.6 oz pur e alcohol) [facility] Inpatient Questions Answer Date Recorded Does Anyone [...] 4:00 PM EDT Hypertension-Nephrology Consultation Miguel Sanchez [id number] 1955 ID: [id number] y.o. old male seen [...] with spacer inhalational spacing device (Chris Aerosol [place] Enhancer) Spacer by [facility].(Non- Drug; Combo Route) route. nitroGLYcerin (Nitrostat) 0.4 [...] Visit from 02/24/2023 in Nephrology Hypertension at [facility] Height 165.1 cm (5' 5) Heart Rate [...] ADLs. Went back to hospital briefly [place] and is now in Rehab where he's [...] D supplement has been stopped. F/u scheduled [facility] urology next week [place] for another voiding trial. He failed one [...] (c holecalciferol 5000 U daily or ergocalciferol 80833 U weekly). I phoned Miguel after the [...] This case was staffed with Dr. Crawford. Deonte Lugo MD Nephrology-Hypertension Fellow * Yolis Crawford [...] 10:00 AM EDT [place] [address] Austin Simon MD [facility] [place] [address] Lindy Box APRN [facility] [place] [address] documented as of this encounter Procedures Procedure [...] 5:27 PM EDT) Neutrophils % 78.1 % [facility] Neutr Abs (ANC) 5.03 1.70 - 6.10 x10(3)/mc L [facility] Lymphocytes % 12.7 % [facility] Lymphocytes Abs 0.8(L) 0.9 - 3.2 x10(3)/mc L [facility] Monocytes % 6.0 % [facility] Monocyte Abs 0.4 0.3 - 0.9 x10(3)/mc L [facility] Eosinophils % 2.3 % [facility] Eosinophils Abs 0.2 0.0 - 0.4 x10(3)/[facility] Basophils % 0.6 % [facility] Basophils Abs 0.0 0.0 - 0.1 x10(3)/[facility] Immature Gran % 0.30 % [facility] Comment: Immature granulocytes(IG's)percentage and absolute count will include metamyelocytes, myelocytes, and promyelocytes. Blood smears from CBCs yielding IG's will be scanned manually for concordance. If this scan disagrees with the automated IG or if promyelocytes are noted, a manual differential will be performed. Angelica Gran Abs 0.02 0.00 - 0.04 x10(3)/[facility] Blood 02/24/2023 5:27 PM EDT 02/24/2023 5:35 PM EDT Narrative Resulting Agency Comment Spec In Lab Deonte Lugo MD HEMATOLOGY ORDERABL ES [facility] [place] [address] * (ABNORMAL) Hemogram (02/24/2023 5:27 PM EDT) WBC 6.4 4.0 - 9.5 x10(3)/[facility] RBC 3.96(L) 4.58 - 5.54 x10(6)/[facility] Hemoglobin 12.1(L) 13.7 - 16.5 g/dL [facility] Hematocrit 35.2(L) 40.5 - 48.5 % [facility] MCV 88.9 82.9 - 93.1 fL [facility] MCH 30.6 27.5 - 32.1 pg [facility] MCHC 34.4 32.0 - 35.7 g/dL [facility] Platelets 186 145 - 357 x10(3)/[facility] RDWSD 40.8 36.0 - 45.0 fL [facility] RDWCV 12.4 11.4 - 13.8 % [facility] MPV 12.3 7.6 - 12.9 fL [facility] nRBC % Auto 0.3 % [facility] nRBC Abs Auto 0.020(H) 0.000 - 0.000 x10(3)/mcL [facility] Blood 02/24/2023 5:27 PM EDT 02/24/2023 5:35 PM EDT Narrative Resulting Agency Comment Spec In Lab Deonte Lugo MD HEMATOLOGY ORDERABL ES Performing Organization Address [facility]/ZIP Co de Phone Number [facility] [place] [address] * Phosphorus (02/24/2023 5:27 PM EDT) Phosphorus 3.3 2.5 - 4.5 mg/dL [facility] Blood 02/24/2023 5:27 PM EDT 02/24/2023 5:35 PM EDT Narrative Resulting Agency Comment Spec In Lab Yolis Crawford MD CHEMISTRY ORDERABLES Performing Organization Address [facility] Co de Phone Number [facility] [place] [address] * (ABNORMAL) PTH (02/24/2023 5:27 PM EDT) PTH 144(H) 15 - 65 pg/mL [facility] Blood 02/24/2023 5:27 PM EDT 02/24/2023 5:35 PM EDT Narrative Resulting Agency Comment Spec In Lab Yolis Crawford MD CHEMISTRY ORDERABLES Performing Organization Address [facility]/ZIP Co de Phone Number [facility] [place] [address] * (ABNORMAL) Vitamin D, 25-Hydroxy (02/24/2023 5:27 PM EDT) 25-OH Vit D Total 16(L) 21 - 100 ng/mL [facility] 25-OH Vit D Interp Deficient [facility] Blood 02/24/2023 5:27 PM EDT 02/24/2023 5:35 PM EDT Narrative Resulting Agency Comment Spec In Lab Yolis Crawford MD CHEMISTRY ORDERABLES [facility] [place] [address] * (ABNORMAL) Basic Metabolic Panel (non-fasting) (02/24/2023 5:27 PM EDT) Glucose Lvl 126 65 - 199 mg/dL [facility] Comment:Diabetes: >=200 mg/d L plus symptoms BUN 49(H) 10 - 20 mg/dL [facility] Creatinine 4.18(H) 0.80 - 1.50 mg/dL [facility] Sodium 137 135 - 145 mmol/L [facility] Potassium 4.5 3.5 - 5.0 mmol/L [facility] Comment: Please note: ??Patients with WBC >100,000 may have falsely elevated Potassium levels. ??For accurate Potassium quantification in these patients send serum separator tube (gold top) for subsequent determinations. ??Contact the Clinical Chemistry Laboratory if there are any questions. Chloride 104 98 - 107 mmol/L [facility] CO2 20(L) 22 - 31 mmol/L [facility] Anion Gap 13 5 - 15 mmol/L [facility] Calcium 9.4 8.5 - 10.5 mg/dL [facility] Estimated GFR 15(L) >=60 mL/min/1. 73 m?? [facility] Comment: This patient's estimated [...] Crawford MD CHEMISTRY ORDERABLES Performing Organization Address City/[facility]/ZIP Co de Phone Number [facility] [place] [address] * Sodium, urine, random (02/24/2023 4:00 PM EDT) U Sodium <20 mmol/L [facility] Urine Urine / Unknown 02/24/2023 4 :00 PM EDT 02/24/2023 5:25 PM EDT Narrative Resulting Agency Comment Spec In Lab Deonte Lugo MD URINE ORDERABLES Performing Organization Address [facility] Co de Phone Number [facility] [place] [address] * (ABNORMAL) Protein/Creatinine Ratio, urine (02/24/2023 4:00 PM EDT) U Creatinine 64 mg/dL [facility] U Protein Ran 28(H) 0 - 12 mg/dL [facility] Prot/Cre Ratio 0.4 ratio [facility] Urine 02/24/2023 4:00 PM EDT 02/24/2023 5:25 PM EDT Narrative Resulting Agency Comment Spec In Lab Yolis Crawford MD URINE ORDERABLES Performing Organization Address City/[facility]/ZIP Co de Phone Number [facility] [place] [address] * (ABNORMAL) U Albumin/Cre Ratio (02/24/2023 4:00 PM EDT) Alb/Cr Ratio, Random 196(H) 0 - 29 mcg/mg Cr [facility] Comment: Reference Ranges: <30 [...] 362 U Albumin Conc, Random 125.5 mg/L [facility] U Creatinine 64 mg/dL [facility] Urine 02/24/2023 4:00 PM EDT 02/24/2023 5:25 PM EDT Narrative Resulting Agency Comment Spec In Lab Yolis Crawford MD URINE ORDERABLES [facility] [place] [address] documented in this encounter Visit Diagnoses Diagnosis Chronic kidney disease, unspecified CKD stage Chronic kidney disease, stage 4 (severe) documented in this encounter Care Teams Desulphuring Operator Relationship Specialty Start Date End Date Reinier Arceo PA [address] [place] [address] PCP - General Internal Medicine 01/18/23 documented as of this encounter
--- OUTSIDE RECORDS SUMMARY | 2024-01-27 16:30 | XMS_ITS | Encounter Summary ---
Author Organization [facility] Address [facility] [place] [address] Care Team Providers Care Corporate Event Planner Name Role Phone Reinier Arceo Primary Care Provider [phone] Encounter Details Date Type Department Care Team (Late st Contact Info) Description 01/26/2024 Telephone Dermatology at [facility] [address] [place] [address] Charo Verma Social History Tobacco Use Types Packs/Day Years [...] encounter Miscellaneous Notes * Telephone Encounter - Charo Verma - 01/26/2024 3:41 PM EDT Referring office called in to make sure pt was scheduled. An Urgent Referral was sent to us on 01/18to both the connection center fax and our mainline fax. I advised that they send the referral again to [phone] (Kathy Mancilla) so either myself or one ofmy colleagues could enter the referral more quickly. Referral is for an urticarial papular full body rash. documented in this encounter Plan of Treatment Upcoming Encounters Date Type Department Care Team (Late st Contact Info) Description 02/03/2024 10:00 AM EDT [place] [address] Austin Simon MD [facility] [place] [address] Lindy Box APRN [facility] [place] [address] documented as of this encounter Visit Diagnoses Not on filedocumented in this encounter Care Teams Corporate Event Planner Relationship Specialty Start Date End Date Reinier Arceo PA [address] [place] [address] PCP - General Internal Medicine 01/18/23 documented as of this encounter
--- OUTSIDE RECORDS SUMMARY | 2024-01-27 16:30 | XMS_ITS | Encounter Summary ---
Author Organization [facility] Address [facility] [place] [address] Care Team Providers Care Teacher Nursery School Name Role Phone Reinier Arceo Primary Care Provider [phone] Encounter Details Date Type Department Care Team [...] 10:00 AM EDT [place] [address] Austin Simon MD [facility] [place] [address] Lindy Box APRN [facility] [place] [address] documented as of this encounter Visit Diagnoses Not on filedocumented in this encounter Care Teams Teacher [employer]ery [employer] Relationship Specialty Start Date End Date Reinier Arceo PA [address] [place] [address] PCP - General Internal Medicine 01/18/23 documented as of this encounter
--- OUTSIDE RECORDS SUMMARY | 2024-01-27 16:30 | XMS_ITS | Encounter Summary ---
Author Organization [facility] [place] [address] Care Team Providers Care Bareback Rider Name Role Phone Reinier Arceo Primary Care Provider [phone] Encounter Details Date Type Department Care Team [...] 10:00 AM EDT Procedure visit Urology at [facility] [place] [address] Austin Simon MD [facility] [place] [address] Lindy Box APRN [facility] [place] [address] documented as of this encounter Visit Diagnoses Not on filedocumented in this encounter Care Teams Bareback Rider Relationship Specialty Start Date End Date Reinier Arceo PA [address] [place] [address] PCP - General Internal Medicine 01/18/23 documented as of this encounter
--- OUTSIDE RECORDS SUMMARY | 2024-01-27 16:30 | XMS_ITS | Clinical Summary ---
Author Organization [facility] Address [facility] [place] [address] Care Team Providers Care Economic Developer Name Role Phone Reinier Arceo Primary Care Provider [phone] Allergies No known active allergies Medications Medication [...] Encounters Date Type Department Care Team Description 01/26/2024 Telephone Dermatology at [facility] [address] [place] [address] Charo Verma 11/23/2023 Telephone [place] [address] Courtney Sainz from Last 3 Months Social History Tobacco Use Types Packs/Day Years Used Date Smoking Tobacco: Never Smokeless Tobacco: Never Tobacco Cessation:Counseling Given: Not Answered Alcohol Use Standard Drinks/Week Comments Never 0 (1 standard drink = 0.6 oz pur e alcohol) [facility] Inpatient Questions Answer Date Recorded Does [...] 10:00 AM EDT [place] [address] Austin Simon MD [facility] [place] [address] Lindy Box APRN [facility] [place] [address] Health Maintenance Due Date Last Done Comments CT Colonography 1955 Colonoscopy 1955 Colorectal Cancer Screening 1955 FIT DNA 1955 FIT 1955 Sigmoidoscopy (10 year) with FIT yearly 1954 Sigmoidoscopy 1954 Pneumoccocal Vaccine: 65+ (1 of 2 - PCV) 1960 DM Opthalmology Exam 1964 Tdap adult 1973 Tetanus vaccine 1973 Zoster vaccine (1 of 2) 2004 Covid-19 Vaccine ( - 2022-2 4 season) 2023 DM Hemoglobin [...] Brantley MD CHEMISTRY ORDERABLES Performing Organization Address City/[facility]/ZIP Co de Phone Number [facility] [address] * Hepatitis C Antibody (01/20/2023 3:23 PM EDT) Hepatitis C Ab Negative Negative [facility] Blood 01/20/2023 3:23 PM EDT 01/20/2023 3:28 PM EDT Narrative Resulting Agency Comment Spec In Lab Austin Sosa MD IMMUNOLOGY ORDERABLE S Performing Organization Address City/[facility]/ZIP Co de Phone Number [facility] [address] * HDL/Cholesterol Profile (01/18/2023 10:16 PM EDT) Chol, Total 122 mg/dL [facility] Comment: Lower Risk: <200 mg/dL Average Risk: 200-239 mg/dL Higher Risk: >vr=206 mg/dL HDL 27 mg/dL [facility] Comment: Males: ?? Higher Risk: <40 mg/dL Females: ?? Higher Risk: <50 mg/dL Chol/HDL Ratio 4.5 ratio [facility] Chol/HDL Interpretation See Note [facility] Comment: Lipid management should be guided by a patient? s ASCVD risk, goals and preferences. ACC/AHA Guidelines recommend high intensity statin if clinical ASCVD or LDL greater than or equal to 190 mg/dL. http://Lithera.com/APR-SML-Kfppufkyj Measure LDL if Total Cholesterol minus HDL Cholesterol is greater than 220 mg/dL. Adults aged 40-75 with LDL 70-189 mg/dL should have their 10 year ASCVD risk estimated with the ACC/AHA ASCVD risk guest history clerk http://tools.acc.org/ITUMP-Mlln-Wpcxljype/ Statin should be discussed if risk greater [...] Lab Tanya Vizcarra MD CHEMISTRY ORDERABL ES [facility] [address] * (ABNORMAL) Hemoglobin A1c (01/18/2023 10:16 PM EDT) Hemoglobin A1C 5.7(H) 4.3 - 5.6 % [facility] Comment: Reference Range: 4.3 - [...] Mellitus, Diabetes Care 2013; 36: Suppl. 1, S67-22 Est Avg Gluc 117 mg/dL [facility] Comment: eAG equivalents for HbA1c [...] into estimated average glucose values. ??Diabetes Care 2008:31(8):0417-5689. Blood 01/18/2023 10:1 6 PM EDT 01/18/2023 10:27 PM EDT Narrative Resulting Agency Comment Spec In Lab Tanya Vizcarra MD CHEMISTRY ORDERABL ES [facility] [place] [address] from Last 3 Months or Most Recently Relevant to Health Maintenance Advance Directives Documents on File Type Date Recorded Patient Analysis Tester Expl anation Advance Directives and Livin g Will 01/19/2023 4:14 PM 01/19/2023 * Attempt Cardiopulmonary Resuscitation - Inpatient (Latest Code Status on File) Date Activated Date Inactivated Comments 01/18/2023 7:29 PM 01/27/2023 6:27 PM Question Answer Comments Code Status decision made by: Patient Care Teams Economic Developer Relationship Specialty Start Date End Date Reinier Arceo PA [address] [place] [address] PCP - General Internal Medicine 01/18/23
--- OUTSIDE RECORDS SUMMARY | 2024-01-27 16:30 | XMS_ITS | Encounter Summary ---
Author Organization [facility] [place] [address] Care Team Providers Care Spa Therapist Name Role Phone Reinier Arceo Primary Care Provider [phone] Encounter Details Date Type Department Care Team (Late Contact Info) Description 06/10/2023 Telephone [place] [address] Ava Vlilegas Social History Tobacco Use Types Packs/Day Years Used Date Smoking Tobacco: Never Alcohol Use Standard Drinks/Week Comments Never 0 (1 standard drink = 0.6 oz pur e alcohol) [facility] Inpatient Questions Answer Date Recorded [...] 10:00 AM EDT [place] [address] Austin Simon MD [facility] [place] [address] Lindy Box APRN [facility] [place] [address] documented as of this encounter Visit Diagnoses Not on filedocumented in this encounter Care Teams Spa Therapist Relationship Specialty Start Date End Date Reinier Arceo PA [address] [place] [address] PCP - General Internal Medicine 01/18/23 documented as of this encounter
--- OUTSIDE RECORDS SUMMARY | 2024-01-27 16:30 | XMS_ITS | Encounter Summary ---
Author Organization [facility] [place] [address] Care Team Providers Care Data Center Architect Name Role Phone AdisReinier ELSIE Primary Care Provider [phone] Encounter Details Date Type Department Care Team (Late st Contact Info) Description 07/13/2023 Orders [place] [address] Meche Donato APRN [facility] [place] [address] Social History Tobacco Use Types Packs/Day Years Used Date Smoking Tobacco: Never Smokeless Tobacco: Never Alcohol Use Standard Drinks/Week Comments Never 0 (1 standard drink = 0.6 oz pur e alcohol) [facility] Inpatient Questions Answer Date [...] 10:00 AM EDT Procedure [place] [address] Austin Simon MD [facility] [place] [address] Lindy Box CREATIVE SERVICES DESIGNER [facility] [place] [address] documented as of this encounter Visit Diagnoses Not on filedocumented in this encounter Care Teams Data Center Architect Relationship Specialty Start Date End Date Reinier Arceo PA [address] [place] [address] PCP - General Internal Medicine 01/18/23 documented as of this encounter
--- OUTSIDE RECORDS SUMMARY | 2024-01-27 16:30 | XMS_ITS | Encounter Summary ---
Author Organization [facility] [place] [address] Care Team Providers Care Boot And Shoe Repairman Name Role Phone Reinier Arceo Primary Care Provider [phone] Encounter Details Date Type Department Care Team [...] 10:00 AM EDT Procedure visit Urology at [facility] [place] [address] Austin Simon MD [facility] [place] [address] Lindy Box APRN [facility] [place] [address] documented as of this encounter Visit Diagnoses Not on filedocumented in this encounter Care Teams Boot And Shoe Repairman Relationship Specialty Start Date End Date Reinier Arceo PA [address] [place] [address] PCP - General Internal Medicine 01/18/23 documented as of this encounter
--- OUTSIDE RECORDS SUMMARY | 2024-01-27 16:30 | XMS_ITS | Encounter Summary ---
Author Organization [facility] [place] [address] Care Team Providers Care Cork Insulator Name Role Phone Reinier Arceo Primary Care Provider [phone] Encounter Details Date Type Department Care Team [...] 10:00 AM EDT Procedure visit Urology at [facility] [place] [address] Austin Simon MD [facility] [address] Lindy Box APRN [facility] [place] [address] documented as of this encounter Visit Diagnoses Not on filedocumented in this encounter Care Teams Cork Insulator Relationship Specialty Start Date End Date Reinier Arceo PA [address] [place] [address] PCP - General Internal Medicine 01/18/23 documented as of this encounter
--- OUTSIDE RECORDS SUMMARY | 2024-01-27 16:30 | XMS_ITS | Encounter Summary ---
Author Organization [facility] [place] [address] Care Team Providers Care Outdoor Recreation Specialist Name Role Phone Reinier Arceo Primary Care Provider [phone] Encounter Details Date Type Department Care Team (Late Contact Info) Description 07/02/2023 Telephone Neph[place] [phone] Ava Villegas Social History Tobacco Use Types Packs/Day Years Used Date Smoking Tobacco: Never Smokeless Tobacco: Never Alcohol Use Standard Drinks/Week Comments Never 0 (1 standard drink = 0.6 oz pur e alcohol) [facility] Inpatient Questions Answer Date Recorded Does [...] 10:00 AM EDT [place] [phone] Austin Simon MD [facility] [place] [address] Lindy Box APRN [facility] [place] [address] documented as of this encounter Visit Diagnoses Not on filedocumented in this encounter Care Teams Outdoor Recreation Specialist Relationship Specialty Start Date End Date Reinier Arceo PA [address] [place] [address] PCP - General Internal Medicine 01/18/23 documented as of this encounter
--- OUTSIDE RECORDS SUMMARY | 2024-01-27 16:30 | XMS_ITS | Encounter Summary ---
Author Organization [facility] Address [facility] [place] [address] Care Team Providers Care Educational Institution President Name Role Phone Reinier Arceo Primary Care Provider [phone] Encounter Details Date Type Department Care Team (Latest Contact Info) Description 08/04/2023 2:30 PM EST Office Visit Ne[place] [address] Reina Yang MD [facility] [place] [address] Chronic kidney disease, unspecified CKD stage; Vitamin D deficiency; Anemia, unspecified type; Elevated ferritin; Secondary hyperparathyroidism of renal origin; Metabolic acidosis; Hyponatremia; Blood albumin decreased compared with prior measurement Social History Tobacco Use Types Packs/Day Years Used Date Smoking Tobacco: Never Smokeless Tobacco: Never Alcohol Use Standard Drinks/Week Comments Never 0 (1 standard drink = 0.6 oz pur e alcohol) [facility] Inpatient Questions Answer Date Recorded [...] doesn't [facility]. [facility] in this encounter Progress Notes * Reina Yang MD - 08/04/2023 2:30 PM EST [facility] NEPHROLOGY AND HYPERTENSION CLINIC PRIMARY CARE PROVIDER: ELSIE Espinoza SOUND ENGINEER: Deonte Lugo MD HISTORY OF PRESENT ILLNESS: [...] 06/23/23 2:43 PM Result Value Ref Range [place] Free Light Chain 7.48 (H) 0.72 - 2.75 mg/dL [place] Free Light Chain 4.87 (H) 0.57 - 2.15 mg/dL [place] Lambda FLC Ratio 1.5359 0.4000 - 2.5800 [...] - Calcium and phosphorus are at goal. 63-EC-Zwjgved D is very low. Reportedly on ergocalciferol [...] plan, and coordinating care. Reina Yang MD [facility] Nephrology and Hypertension [facility], [address] [place], [place] [id number] E-mail: [email or web address] documented in this encounter Plan of Treatment Upcoming Encounters Date Type Department Care Team (Late st Contact Info) Description 02/03/2024 10:00 AM EDT [place] [address] Austin Simon MD [facility] [place] [address] Lindy Box APRN [facility] [place] [address] documented as of this encounter Results * Phosphorus (08/04/2023 12:55 PM EST) [facility] Phosphorus 3.4 2.5 - 4.5 mg/dL [facility] Blood 08/04/2023 12:5 5 PM EST 08/04/2023 1:44 PM EST Narrative Resulting Agency Comment Spec In Lab Abel Brantley MD CHEMISTRY ORDERABLES [facility] [place] [address] * (ABNORMAL) Basic Metabolic Panel (non-fasting) (08/04/2023 12:55 PM EST) Pathologist [facility] Glucose Lvl 153 65 - 199 mg/dL [facility] Comment:Diabetes: >=200 mg/d L plus symptoms BUN 17 10 - 20 mg/dL [facility] Creatinine 2.02(H) 0.80 - 1.50 mg/dL [facility] Sodium 134(L) 135 - 145 mmol/L [facility] Potassium 4.8 3.5 - 5.0 mmol/L [facility] Comment: Please note: ??Patients with WBC >100,000 may have falsely elevated Potassium levels. ??For accurate Potassium quantification in these patients send serum separator tube (gold top) for subsequent determinations. ??Contact the Clinical Chemistry Laboratory if there are any questions. Chloride 98 98 - 107 mmol/L [facility] CO2 23 22 - 31 mmol/L [facility] Anion Gap 13 5 - 15 mmol/L [facility] Calcium 9.6 8.5 - 10.5 mg/dL [facility] Estimated GFR 35(L) >=60 mL/min/1. 73 m?? [facility] Comment: This patient's estimated [...] In Lab Abel Brantley MD CHEMISTRY ORDERABLES [facility] [place] [address] documented in this encounter Visit Diagnoses Diagnosis Chronic kidney disease, unspecified CKD stage Vitamin D deficiency Unspecified vitamin D deficiency Anemia, unspecified type Elevated ferritin Other abnormal blood chemistry Secondary hyperparathyroidism of renal origin Secondary hyperparathyroidism (of renal origin) Metabolic acidosis Acidosis Hyponatremia Hyposmolality and/or hyponatremia Blood albumin decreased compared with prior measurement documented in this encounter Care Teams Educational Institution President Relationship Specialty Start Date End Date Reinier Arceo PA [address] [place] [address] PCP - General Internal Medicine 01/18/23 documented as of this encounter
--- OUTSIDE RECORDS SUMMARY | 2024-01-27 16:30 | XMS_ITS | Encounter Summary ---
Author Organization [facility] [place] [id number] Care Team Providers Care Knife Glazer Name Role Phone Reinier Arceo Primary Care Provider [phone] Reason for Referral * Consultation (Routine) - Authorized Specialty Diagnoses / Procedures Referred By Contact Referred To Contact Electrophysiology / Cardiology Diagnoses HFrEF (heart failure with reduced ejection fraction) AICD consideration for HFrEF 29%, Etiology unknown. Please see note Freedom Sunshine MD [facility] [place] [address] [facility] Cardiology [address] [place] [id number] Referral ID Status Reason Start Date Expiration Date Visits Requested Visits Authorized [id number] Authorized Consult, Test & Treat 04/28/2023 04/27/2024 1 1 Encounter Details Date Type Department Care Team (Late st Contact Info) Description 04/28/2023 2:00 PM EDT Office Visit Cardiology at [address] [phone] Marvin Ba MD [facility] [place] [address] Freedom Sunshine MD [facility] [place] [address] HFrEF (heart failure with reduced ejection fraction) [...] from the original note were not included. [facility] [place] [address] CARDIOLOGY OUTPATIENT CLINIC VISIT [facility] Miguel Sanchez 04/28/2023 Referring Providers: ELSIE Espinoza Patrick, PA [address] [place] [address] CHIEF COMPLAINT: CHF Dear ELSIE Nolan [address] [place] [address] HISTORY OF PRESENT ILLNESS: Miguel Sanchez is a 67 y.o. male patient presenting for an outpatient cardiology visit. 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 At the time, patient complained [...] mouth daily. inhalational spacing device (Chris Aerosol [place] Enhancer) Spacer by [facility]Non- Drug; Combo Route) route. magnesium hydroxide (Milk [...] Miguel Sanchez. Sincerely, Freedom Sunshine MD Interventional Supervisor Malted Milk 04/28/2023 CC: ELSIE Espinoza I have seen [...] 10:00 AM EDT [place] [address] Austin Simon MD [facility] [place] [address] Lindy Box APRN [facility] [place] [address] Scheduled Referrals Name Type Priority Associated Diagnoses Order Schedule Referral to Cardiac Electrophysiology Outpatient Referral Routine HFrEF (heart failure with reduced ejection fraction) Ordered: 04/28/2023 documented as of this encounter Visit Diagnoses Diagnosis HFrEF (heart failure with reduced ejection fraction) documented in this encounter Care Teams Knife Glazer Relationship Specialty Start Date End Date Reinier Arceo PA [address] [place] [address] PCP - General Internal Medicine 01/18/23 documented as of this encounter
--- OUTSIDE RECORDS SUMMARY | 2024-01-27 16:30 | XMS_ITS | Encounter Summary ---
Author Organization [facility] Address [facility] [place] [address] Care Team Providers Care Supervisor Garment Manufacturing Name Role Phone Reinier Arceo Primary Care Provider [phone] Encounter Details Date Type Department Care Team (Late st Contact Info) Description 03/03/2023 Telephone Nephrology [place] [address] Courtney Sainz Social History Tobacco Use Types Packs/Day Years Used Date Smoking Tobacco: Never Alcohol Use Standard Drinks/Week Comments Never 0 (1 standard drink = 0.6 oz pur e alcohol) [facility] Inpatient Questions Answer Date Recorded Does Anyone [...] 03/03/2023 11:08 AM EDT LM with patients piano case maker Randa to call and schedule a follow up appointment documented in this encounter Plan of Treatment Upcoming Encounters Date Type Department Care Team (Late st Contact Info) Description 02/03/2024 10:00 AM EDT Procedure [place] [address] Austin Simon MD [facility] [place] [address] Lindy Box APRN [facility] [place] [address] documented as of this encounter Visit Diagnoses Not on filedocumented in this encounter Care Teams Supervisor Garment Manufacturing Relationship Specialty Start Date End Date Reinier Arceo PA [address] [facility] [address] [place] [address] PCP - General Internal Medicine 01/18/23 documented as of this encounter
--- OUTSIDE RECORDS SUMMARY | 2024-01-27 16:31 | XMS_ITS | Encounter Summary ---
[place] [address] Care Team Providers Care Cutting Department Supervisor Name Role Phone Reinier Arceo Primary Care Provider [phone] Reason for Referral * Consultation (Routine) - Closed Specialty Diagnoses / Procedures Referred By Contac t Referred To Contact Urology Diagnoses Acute kidney injury Mendel Luna MD [facility] [place] [address] [facility] [place] [address] Referral ID Status Reason Start Date Expiration Date V isits Requested Visits Authorized [id number] Closed Consult, Test & Treat 01/26/2023 01/26/2024 1 1 * Home Health Care (Routine) - Closed Specialty Diagnoses / Procedures Referred By Contac t Referred To Contact Diagnoses Acute kidney injury Mendel Luna MD [facility] [place] [address] [facility] [place] [address] Referral ID Status Reason Start Date Expiration Date V isits Requested Visits Authorized [id number] Closed Consult, Test & Treat 01/26/2023 07/25/2023 999 999 Reason for Visit * Auth/Cert (Routine) Specialty Diagnoses / Procedures Referred By Contac t Referred To Contact Diagnoses Heart failure CHF w/ CLEM Procedures EMERGENCY IPI Tanya Seaman MD [facility] [place] [address] [facility] Referral ID Status Reason Start Date Expiration Date Visits Re quested Visits Authorized [id number] 1 1 Encounter Details Date Type Department Care Team (Latest Contact Info) Description 01/18/2023 5:25 PM EDT - 01/27/2023 4:27 PM EDT Hospital Encounter Heart and Vascular Unit Level 3 [place] [id number] Tanya Seaman MD [facility] [place] [address] Chris Lim [facility] [place] [address] Mendel Luna MD [facility] [place] [address] Heart failure, unspecified HF chronicity, unspecified heart [...] 2020), diabetes, hypertension,and hyperlipidemia who presents from [facility] after being redirected from [facility] urgent clinic for one [...] getting progressively worse he went to the [facility] urgent clinic in [place], [place] and was subsequently transferred to [facility] for further management. Upon initial presentation to [facility]: The patient was noted to be [...] reportedly 40 mg PO) and transferred to [facility] for management of presumed acute on chronic HFrEF and CLEM. Upon direct admission to [facility]: The patient was noted to be afebrile [...] Patient was started on GDMT with metoprolol [id number] mg daily and losartan 25 mg daily. [...] he does have capacity. Spoke with his correctional case records supervisor Randa Gonzalez prior to discharge who was [...] Time Provider Department Center 01/28/2023 1:00 PM [facility] ROOM 4 [facility] Rad Your Inpatient Doctor: Mendel Luna MD Your Primary Care Provider: ELSIE Espinoza [phone] For questions regarding this document or issues relating to this hospitalization on the Medical Service, please contact your inpatient physician through the [facility] Trade Recruiter . Issues afterhours and on weekends will be handled by the Hospitalist staff on-call. General Instructions None Future Appointments and Orders Future Appointments and Orders Future Appointments Provider Department Dept Phone 01/28/2023 1:00 PM [facility] US ROOM 4 Ultrasound at [facility] Arrive at: Online Merchandising Coordinator Area [phone] Please bring someone to drive you home. [...] Sanchez for admission to Home Health. [address] [address] Phone Number: [phone] (home) Date of : 1955 Inpatient DOCUMENTATION FOR VNA SERVICES (INCLUDING THOSE PATIENTS WITH MEDICARE COVERAGE REQUIRING HOME VNA SERVICES AND/OR HOSPICE SERVICES) PATIENT'S LOCATION: Miguel Sanchez [address] [address] [phone] (home) Cell: Telephone Information: Light Truck Driver's Name: self In discussion with the attending physician, it is certified that this patient is under their care and that they, or a Nurse Practitioner, Clinical Nurse specialist or Physician Tanbark Laborer who is working directly with them, had [...] manage benedict catheter HOME HEALTH CARE AGENCY: [facility] [address] [place] [address] Start of care: 24-48 hours after discharge [...] patient's PCP: ELSIE Espinoza DR [address] / [facility] [address] . All VNA agencies which cover the area of patient's residence have been reviewed, either verbally or in writing, and patient/family have chosen the home health care agency noted. Questions: Disciplines Requested: Nursing Referral to Urology [[id number] Custom] As directed Process Instructions: If no progress note charted, please enter Clinical details in comments. Scheduling Instructions: Questions: My question or request is: 67 yo M admitted 01/18-01/26 w/ renal failure due to obstruction, discharged w/ benedict. Provider Contact Information: ELSIE Espinoza [address] / [facility] [address] Discharge References/Attachments: Discharge References/Attachments None documented in [...] Time Provider Department Center 01/28/2023 1:00 PM [facility] ROOM 4 [facility] Rad Your PCP office will contact you about scheduling follow up. Your Inpatient Doctor: Mendel Luna MD Your Primary Care Provider: ELSIE Espinoza [phone] For questions regarding this document or issues relating to this hospitalization on the Medical Service, please contact your inpatient physician through the [facility] Trade Recruiter . Issues afterhours and on weekends will be handled by the Hospitalist staff on-call. * Attachments The following attachments cannot be sent through Care Everywhere. * Caregiver: Caring for an Indwelling Urinary Catheter: General Info (Cape Verdean) documented in this encounter Medications at Time [...] discharge to home with a ride from [facility]. * Tati Schultz - 01/27/2023 3:43 PM EDTSummary: Transportation Transportation for discharge was scheduled and confirmed through [facility]. [facility] will have a driver courier at the Main Entrance at 4:15p today to provide patient with transportation home. * Camille Shelley RD - 01/27/2023 12:42 PM EDT Nutrition Progress Note Miguel Sanchez is a 67 y.o. male with PMH significant for HFrEF (last known EF 45% in 2020), diabetes, hypertension, and hyperlipidemia who presents from [facility] after being redirected from [facility] urgent clinic for one [...] r/t nutrition eduction provided earlier this week. ThanksCamille, MS, RD, LD Clinical Nutrition * Marii Serrano - 01/27/2023 11:42 AM EDT Ervin Encounter Note Patient Name: Miguel Sanchez : [id number] MR#: [id number] Admit Date: 01/18/2023 5:25 PM Hospital Day [...] AM EDT Hypertension-Nephrology Inpatient Follow-up Miguel Sanchez [id number] 1955 ID: 67 y.o. old male seen [...] SPEP shows possible paraprotein however DOROTEO negative. [place] light chains elevated however ratio [...] TID This case was discussed with staff mobility developer Dr. Crawford and the primary team. Please contact me at phone: [phone] or pager: [phone] with any questions. Deonte Lugo MD Nephrology [...] Marii Serrano - 01/26/2023 3:59 PM EDT Central Office Equipment Engineer Encounter Note Patient Name: Miguel Sanchez : [id number] MR#: [id number] Admit Date: 01/18/2023 5:25 PM Hospital Day [...] info: Name: Miguel Sanchez : 1955 PCP: ESLIE Espinoza PCP phone number: [phone] Date of Admission: 01/18/2023 ( Hospital Day 8 days ) Attending:Mendel Luna MD ID: Miguel Sanchez is a 67 y.o. male with PMH significant for HFrEF (last known EF 45% in 2019), diabetes, hypertension, and hyperlipidemia who presents from [facility] after being redirected from [facility] urgent clinic for one [...] Gas) No results found for: PHART, PO2ART, UZK0FQB, NRT1DUP Microbiology: Microbiology Results (Last 30 days) Procedure Component Value Units Date/Time Urine culture [[id number]] Collected: 01/18/232212 Lab Status: Final result Specimen: [...] who have questions, please contact the health pet care worker that requested your imaging first. Jimmie العراقي, [...] who have questions, please contact the health pet care worker that requested your imaging first. Elsie Garza, E Client Resolution Specialist Electronically Signed Final Report 01/25/2023 04:10 pm [...] diabetes, hypertension, and hyperlipidemia who presents from [facility] after being redirected from [facility] urgent clinic for one [...] PPx: Diet: Daily Healthy Menu Choices/Cardiac diet ([facility]-Diet) Lines: Peripheral IV Line - Single Lumen [...] Yousif MSW - 01/26/2023 2:43 PM EDT VENEER CLIPPER received a consult to support patient regarding concern of not getting his rent paid on time, which is typically due on the 1st of every month. VENEER CLIPPER called patient's property management company, [employer], and spoke to one of the hotel receptionist's, Meri, who stated they have a crow period forpaying rent late and are flexible with this kind of stuff. Meri also mentioned patient had spoken with one of her colleagues recently and asked if they could drive down to the hospital to grabthe check. VENEER CLIPPER checked with patient to see if he has the check, to which he responded no. Patient to be discharged tomorrow. * Deonte Lugo MD - 01/26/2023 7:51 AM EDT Hypertension-Nephrology Inpatient Follow-up Miguel Sanchez [id number] 1955 ID: 67 y.o. old male seen [...] SPEP shows possible paraprotein however DOROTEO negative. [place] light chains elevated however ratio [...] daily This case was discussed with staff mobility developer Dr. Crawford and the primary team. Please contact me at phone: [phone] or pager: [phone] with any questions. Deonte Lugo MD Nephrology [...] AM EDT Hypertension-Nephrology Inpatient Follow-up Miguel Sanchez [id number] 1955 ID: 67 y.o. old male seen [...] SPEP shows possible paraprotein however DOROTEO negative. [place] light chains elevated however ratio [...] daily This case was discussed with staff mobility developer Dr. Crawford. Please contact me at phone: [phone] or pager: [phone] with any questions. Deonte Lugo MD Nephrology [...] and volume overload resolving. David calhoun need superintendent marine oil terminal diuretics to maintain fluid balance. Please obtain repeat renal US and schedule for renal clinic follow up with Dr Lugo in 2 weeks. * Kendy Montes MD - 01/25/2023 6:05 AM EDT Images from the original note were not included. Cardiology Progress Note Patient info: Name: Miguel Sanchez : 1955 PCP: ELSIE Espinoza PCP phone number: [phone] Date of Admission: 01/18/2023 ( Hospital Day 7 days ) Attending:Mendel Luna MD ID: Miguel Sanchez is a 67 y.o. male with PMH significant for HFrEF (last known EF 45% in 2020), diabetes, hypertension, and hyperlipidemia who presents from [facility] after being redirected from [facility] urgent clinic for one [...] Gas) No results found for: PHART, PO2ART, CFX9ODF, EIS2SFD Microbiology: Microbiology Results (Last 30 days) Procedure Component Value Units Date/Time Urine culture [[id number]] Collected: 01/18/232212 Lab Status: Final result Specimen: [...] who have questions, please contact the health pet care worker that requested your imaging first. Jimmie العراقي, [...] BID heparin (porcine) 7,500 Units Subcutaneous Q8H JMAAL gabapentin 100 mg Oral BID OLANZapine 15 [...] diabetes, hypertension, and hyperlipidemia who presents from [facility] after being redirected from [facility] urgent clinic for one [...] AM EDT Hypertension-Nephrology Inpatient Follow-up Miguel Sanchez [id number] 1955 ID: 67 y.o. old male seen for CLEM. Interval History: Diuretics held again yesterday however continues to auto diurese. He clarified his living situationfor us and explains that he lives independently in low income housing and depends on rides to get to clinic appointments etc which is not always available. He follows very closely with a mental health clinic and has a family welfare social work professor there who helps him. Physical Examination: Last [...] negative. SPEP shows possible paraprotein DOROTEO pending. [place] light chains elevated however ratio [...] and from clinic visits and has a family welfare social work professor whogenerally helps him with this. This is [...] deficiency. This case was discussed with staff mobility developer Dr. Morrow. Please contact me at phone: [phone] or pager: [phone] with any questions. Deonte Lugo MD Nephrology [...] He does report having a mental health external grinder tender who may be of some assistance when discharge planning comes to play. * Kendy Montes MD - 01/24/2023 6:39 AM EDT Images from the original note were not included. Cardiology Progress Note Patient info: Name: Miguel Sanchez : 1955 PCP: ELSIE Espinoza PCP phone number: [phone] Date of Admission: 01/18/2023 ( Hospital Day 6 days ) Attending:Mendel Luna MD ID: Miguel Sanchez is a 67 y.o. male with PMH significant for HFrEF (last known EF 45% in 2020), diabetes, hypertension, and hyperlipidemia who presents from [facility] after being redirected from [facility] urgent clinic for one [...] Phlebitis 0-->no symptoms 01/20/23353 Infiltration 0-->no symptoms 01/20/23 035 Labs: Recent [...] Gas) No results found for: PHART, PO2ART, EPP1BHD, UAC9BET Microbiology: Microbiology Results (Last 30 days) Procedure Component Value Units Date/Time Urine culture [[id number]] Collected: 01/18/232212 Lab Status: Final result Specimen: [...] who have questions, please contact the health pet care worker that requested your imaging first. Jimmie العراقي, [...] diabetes, hypertension, and hyperlipidemia who presents from [facility] after being redirected from [facility] urgent clinic for one [...] AM EDT Hypertension-Nephrology Inpatient Follow-up Miguel Sanchez [id number] 1955 ID: 67 y.o. old male seen [...] negative. SPEP shows possible paraprotein DOROTEO pending. [place] light chains elevated however ratio [...] and voiding trial - Please start ergocalciferol 63573 U weekly This case was discussed with staff mobility developer Dr. Morrow. Please contact me at phone: [phone] or pager: [phone] with any questions. Deonte Lugo MD Nephrology [...] 1955 PCP: ELSIE Espinoza PCP phone number: [phone] Date of Admission: 01/18/2023 ( Hospital Day 5 days ) Attending:Mendel Luna MD ID: Miguel Sanchez is a 67 y.o. male with PMH significant for HFrEF (last known EF 45% in 2019), diabetes, hypertension, and hyperlipidemia who presents from [facility] after being redirected from [facility] urgent clinic for one [...] ALKPHOS 95 BILITOT 0.7 Coags Recent Labs 07/24/23 2216 INR 1.3 PT 14.3* PTT 35 Cardiac [...] Gas) No results found for: PHART, PO2ART, KRX9YBS, NAC1JGI Microbiology: Microbiology Results (Last 30 days) Procedure Component Value Units Date/Time Urine culture [[id number]] Collected: 01/18/232212 Lab Status: Final result Specimen: [...] who have questions, please contact the health pet care worker that requested your imaging first. Jimmie العراقي, [...] diabetes, hypertension, and hyperlipidemia who presents from [facility] after being redirected from [facility] urgent clinic for one [...] diabetes, hypertension, and hyperlipidemia who presents from [facility] after being redirected from [facility] urgent clinic for one [...] diabetes, hypertension, and hyperlipidemia who presents from [facility] after being redirected from [facility] for one [...] transportation for shopping and errands and his correctional case records supervisor visits once a week. Pt does not [...] Consistently following commands ADL: Assist needed to [facility] gown d/t lines Toileting: provided pt with [...] Therapy: 30 (SCHM x 2; 9:56-10:26) Pager: [phone] Sushma Hernandez OT Occupational Therapy Rehabilitation Department * Deonte uLgo MD - 01/22/2023 7:46 AM EDT Hypertension-Nephrology Inpatient Follow-up Miguel Sanchez [id number] 1955 ID: 67 y.o. old male seen [...] negative. SPEP shows possible paraprotein DOROTEO pending. [place] light chains elevated however ratio [...] primaryteam. This case was discussed with staff mobility developer Dr. Morrow. Please contact me at phone: [phone] or pager: [phone] with any questions. Deonte Lugo MD Nephrology [...] 1955 PCP: ELSIE Espinoza PCP phone number: [phone] Date of Admission: 01/18/2023 ( Hospital Day 4 days ) Attending:Mendel Luna MD ID: Miguel Sanchez is a 67 y.o. male with PMH significant for HFrEF (last known EF 45% in 2020), diabetes, hypertension, and hyperlipidemia who presents from [facility] after being redirected from [facility] urgent clinic for one month of progressively worsening shortness of breath and associated chest pain occurring both at rest and on exertion with concern for HFrEF exacerbation and CLEM. Active Problems: Active Hospital Problems Diagnosis Heart failure Resolved Hospital Problems No resolved problems to display. 24 Hour and Subjective: Yesterday: -Holding diuresis. Was going to [facility] but got bumped so plan for [...] Gas) No results found for: PHART, PO2ART, YAO9OVZ, KCG5VAV Microbiology: Microbiology Results (Last 30 days) Procedure Component Value Units Date/Time Urine culture [[id number]] Collected: 01/18/232212 Lab Status: Final result Specimen: [...] who have questions, please contact the health pet care worker that requested your imaging first. Jimmie العراقي, [...] diabetes, hypertension, and hyperlipidemia who presents from [facility] after being redirected from [facility] urgent clinic for one [...] diabetes, hypertension, and hyperlipidemia who presents from [facility] after being redirected from [facility] for one [...] alone in a single level apartment in [place], [place] Bathroom Set-up: Tub-shower with a shower [...] Code: Gait x1 Sera Mancera, PT Pager: [phone] Physical Therapy Inpatient Rehabilitation Department * Deonte Lugo MD - 01/21/2023 7:44 AM EDT Hypertension-Nephrology Inpatient Follow-up Miguel Sanchez [id number] 1955 ID: 67 y.o. old male seen [...] being This case was discussed with staff mobility developer Dr. Morrow. Please contact me at phone: [phone] or pager: [phone] with any questions. Deonte Lugo MD Nephrology [...] 1955 PCP: ELSIE Espinoza PCP phone number: [phone] Date of Admission: 01/18/2023 ( Hospital Day 3 days ) Attending:Chris Lim MD ID: Miguel Sanchez is a 67 y.o. male with PMH significant for HFrEF (last known EF 45% in 2019), diabetes, hypertension, and hyperlipidemia who presents from [facility] after being redirected from [facility] urgent clinic for one [...] 01/20/23 1638 01/20/23 1614 01/20/23 1133 01/20/23 0701/19/23213201/19/23 1637 01/19/23 1131 01/19/23 0800 01/19/23 0742 01/19/23 0146 POCGLU 158 96 101 206* 152 112 175 96 92 87 75 Heme No results for input(s): LDH, HAPTOGLOBIN, URICACID in the last 168 hours. ABG (Arterial Blood Gas) No results found for: PHART, PO2ART, RTK9BPE, XKU0UWY Microbiology: Microbiology Results (Last 30 days) Procedure Component Value Units Date/Time Urine culture [[id number]] Collected: 01/18/232212 Lab Status: Final result Specimen: [...] who have questions, please contact the health pet care worker that requested your imaging first. Jimmie العراقي, [...] diabetes, hypertension, and hyperlipidemia who presents from [facility] after being redirected from [facility] urgent clinic for one [...] Montes MD Internal Medicine, PGY-1 Cardiology M1-S1, #7470 Cardiology M1-S2, #3033 01/21/2023, 6:02 AM Cardiology Staff Addendum Miguel [...] AM EDT Hypertension-Nephrology Inpatient Follow-up Miguel Sanchez [id number] 1955 ID: 67 y.o. old male seen [...] this his dry weight. - Would recommend consulting/[facility] urology for help with obstruction as [...] serologies This case was discussed with staff mobility developer Dr. Morrow and the patient's primary team. Please contact me at phone: [phone] or pager: [phone] with any questions. Deonte Lugo MD Nephrology [...] Reina Alcala APRN (Inactive) PCP phone number: [phone] Date of Admission: 01/18/2023 ( Hospital Day 2 days ) Attending:Chris Lim MD ID: Miguel Sanchez is a 67 y.o. male with PMH significant for HFrEF (last known EF 45% in 2020), diabetes, hypertension, and hyperlipidemia who presents from [facility] after being redirected from [facility] urgent clinic for one [...] Gas) No results found for: PHART, PO2ART, UXX4YPJ, GRE9ABP Microbiology: Microbiology Results (Last 30 days) Procedure Component Value Units Date/Time Urine culture [[id number]] Collected: 01/18/232212 Lab Status: Final result Specimen: [...] who have questions, please contact the health pet care worker that requested your imaging first. Jimmie العراقي, [...] diabetes, hypertension, and hyperlipidemia who presents from [facility] after being redirected from [facility] urgent clinic for one [...] PM EDTSummary: Advance Directive Patient completed a [place] Advance Directive. Patient identified his sister Mony as his health care agent. * Sera Mancera, PT - 01/19/2023 11:00 AM EDT Physical Therapy evaluation Patient profile: Miguel Sanchez is a 67 y.o. male with PMH significant for HFrEF (last known EF 45% in 2019), diabetes, hypertension, and hyperlipidemia who presents from [facility] after being redirected from [facility] urgent clinic for one month of progressively worsening shortness of breath and associated chest pain occurring both at rest and on exertion. Social History: Home set-up: Lives alone in a single level apartment in [place], [place] Bathroom Set-up: Tub-shower with a shower [...] Moderate Complexity Evaluation Sera Mancera, PT Pager: [phone] Physical Therapy Inpatient Rehabilitation Department * Sushma Hernandez, OT - 01/19/2023 10:30 AM EDT Occupational Therapy Evaluation Patient profile: Miguel Sanchez is a 67 y.o. male with PMH significant for HFrEF (last known EF 45% in 2020), diabetes, hypertension, and hyperlipidemia who presents from [facility] after being redirected from [facility] for one [...] transportation for shopping and errands and his correctional case records supervisor visits once a week. Pt does not [...] and measurable assessment of functional outcome. Pager: [phone] Sushma Hernandez OTR/L Occupational Therapy Rehabilitation Department * Marii Serrano - 01/19/2023 10:23 AM EDT Central Office Equipment Engineer Encounter Note Patient Name: Miguel Sanchez : [id number] MR#: [id number] Admit Date: 01/18/2023 5:25 PM Hospital Day [...] and [employer]. Patient believes that Kevin Christopher on the cross for his sins. Patient believes in Kevin Ashwin and doesn't believe in goingto Restorationism because he can religious God in any place he is. Patient [...] sent to Office of Care Management ~ Private Branch Exchange Operator. * Chris Lim MD - 01/19/2023 6:11 AM EDT Images from the original note were not included. Cardiology Progress Note Patient info: Name: Miguel Sanchez : 1955 PCP: Reina Alcala APRN (Inactive) PCP phone number: [phone] Date of Admission: 01/18/2023 ( Hospital Day 1 day ) Attending:Chris Lim MD ID: Miguel Sanchez is a 67 y.o. male with PMH significant for HFrEF (last known EF 45% in 2019), diabetes, hypertension, and hyperlipidemia who presents from [facility] after being redirected from [facility] urgent clinic for one month of progressively worsening shortness of breath and associated chest pain occurring both at rest and on exertion. Active Problems: Active Hospital Problems Diagnosis Heart failure Resolved Hospital Problems No resolved problems to display. 24 Hour and Subjective: Yesterday: - The patient was reassuringly afebrile and hemodynamically stable upon transfer to [facility]. Interestingly, initial exam did not demonstrate marked [...] Gas) No results found for: PHART, PO2ART, PQQ8BPL, NBB5WBA Microbiology: Microbiology Results (Last 30 days) No [...] who have questions, please contact the health pet care worker that requested your imaging first. Jimmie العراقي, [...] diabetes, hypertension, and hyperlipidemia who presents from [facility] after being redirected from [facility] urgent clinic for one [...] Reina Alcala APRN (Inactive) PCP phone number: [phone] Date of Admission: 01/18/2023 ( Hospital Day 0 days ) Attending:Tanya Seaman MD ID: Miguel Sanchez is a 67 y.o. male with PMH significant for HFrEF (last known EF 45% in 2020), diabetes, hypertension, and hyperlipidemia who presents from [facility] after being redirected from [facility] urgent clinic for one [...] getting progressively worse he went to the [facility] urgent clinic in [place], [place] and was subsequently transferred to [facility] for further management. Upon initial presentation to [facility]: The patient was noted to be [...] reportedly 40 mg PO) and transferred to [facility] for management of presumed acute on chronic HFrEF and CLEM. Upon direct admission to [facility]: The patient was noted to be afebrile [...] history: Reports living in an apartment in [place], [place] Reports his father as a result [...] diabetes, hypertension, and hyperlipidemia who presents from [facility] after being redirected from [facility] urgent clinic for one month of progressively worsening shortness of breath and associated chest painoccurring both at rest and on exertion. The patient was reassuringly afebrile and hemodynamically stable upon transfer to [facility]. Interestingly, initial exam did not demonstrate marked [...] More than 30 minutes were spent in abbs-[id number] contact with patient and with arranging discharge [...] have to pay my rent, get two appraiser land's checks - one for rent and one [...] a catheter. Has daily auditory hallucinations of [employer] that he has lived with for decades. No SI/HI. Diagnoses: schizophrenia dx 1996 Current treatment: zyprexa 15mg QHS Past hospitalizations: never Suicide attempts: not really - years ago he came close, but doesn't elaborate Past psychiatric medications: did not assess Substance Use History/Treatment: no alcohol, cigarettes, marijuana, or other substances Social History: Lives in an apartment by himself in [place]. No family in the area. Only support is his mental health agency. [facility] - Randa Daniels (correctional case records supervisor). Asa Deal is his provider. Problem List: [...] injection 7,500 Units 7,500 Units Subcutaneous Q8H Kendy Rivas MD 7,500 Units at 01/26/23 1457 gabapentin [...] rate, and normal rhythm Language: fluent in polish Mood: fine Affect: blunted and mood-congruent Thought [...] hgb, hct plt Recent Labs 01/27/23 0349 01/26/2331001/25/23 0406 WBC 8.2 8.4 8.2 HGB 10.6* [...] MAGNESIUM 0.97 Last 3 TFT Recent Labs 01/18/232215 TSH 2.03 Last 3 Lipids Recent Labs 01/18/232215 CHLPL 122 HDL 27 LDLDIRECT 65 Last 3 HgbA1C Recent Labs 01/18/232215 HA1C 5.7* Last 3 CBC Recent Labs [...] check on him, or see if his correctional case records supervisor willcheck in on him tomorrow Please page psychiatry with additional questions Patient on IEA Status? IEA: NO, patient is not on IEA and does not have any psychiatric contraindication to discharge at the time of this assessment. Recommendations were communicated to primary retail sales teammate Kendy Montes MD. Maritza Awan MD Psychiatry, [...] [] Minimal - [] Minimal [] Straightforward 52822 [] Low [] Low [] Low [] Low 20512 [] Moderate [x] Moderate [] Moderate [] Moderate 20207 [x] High [] High [x] High [x] High 19807 Final Coding Determination: High Associated attestation - [...] CM). Keon Park MD Psychiatry Consultation Pager: [phone] * Plan of Care - Adrienne Calderon [...] he's done and ready to go home. notified. PLAN MOVING FORWARD: Monitor I&O's DC [...] Intervention: Identify and Manage Contributors Flowsheets (Taken 01/25/20232119) Medication Review/Management: medications reviewed high-risk medications identified Self-Care Promotion: independence encouraged Intervention: Promote Injury-Free Environment Flowsheets (Taken 01/25/2023 5830) Safety Promotion/Fall Prevention: safety round/check completed * [...] diabetes, hypertension, and hyperlipidemia who presents from [facility] after being redirected from [facility] urgent [facility] for one [...] to: discuss discharge planning needs. provide the [facility], Office of Care Management letter from the Esthetician/Owner pertaining to rehab referrals. provide a letter describing our affiliations within the [facility] and educate about their right to choose where referrals are sent. provide a list of Home Health Agencies / Durable Medical Equipment vendors which serve their preferred geographic area. provided patient with [facility] Star Quality Rating handout. They have requested referrals to: [facility]. [address] [place] [id number] Note routed to a Private Branch Exchange Operator who will communicate referrals to facilities and [...] and Manage Fall Risk Flowsheets (Taken 01/25/2023 020) Safety Promotion/Fall Prevention: safety round/check completed Intervention: [...] original note were not included. [facility] [place] [address] [address] CORONARY ANGIOGRAM AND PERCUTANEOUS CORONARY INTERVENTION REPORT Patient: Miguel Sanchez : 1955 MR number: [id number] Date of Service: 01/22/2023 Prototype Machinist: Layton Morris MD Fellow: Mario Alberto Glasgow MD INDICATION: Miguel Sanchez is a 67 y.o. male with PMH significant for HFrEF (last known EF 45% in 2019), diabetes, hypertension, and hyperlipidemia who presents from [facility] after being redirected from [facility] for one [...] goes to the bank and gets a valet cashier's check and pays it. CM tried to call the bank and the customer needs to be present for them to release any funds. I tried to call the [employer] [facility]- but they were closed. CM also tried to call his correctional case records supervisor Randa to see if she could help. Left message for her to call back. Will put in VENEER CLIPPER consult to meet with him on Wednesday [...] PT/OT Recommendations Outpatient Agency/Support Group Needs: Other [facility]: Randa Gonzalez at [phone] (correctional case records supervisor) Transportation: Medicaid transport- will need 24 hours [...] Coon MD Urology PGY-2 Daytime Consult Pager #[phone] * Initial Assessments - Darryl Rodriguez RN - 01/19/2023 4:57 PM EDT Office of Care Management Initial Assessment Darryl Rodriguez RN reviewed record and discussed patient with Care Team. Source of Information: Team, bedside nurse, medical record, and Patient, Chart Review. Introduced self/reviewed role; services accepted. Admitted From: Transfer from another hospital Location: [facility] Reason for Hospitalization: Heart problems and kidney problems Covid Vaccination Status: 1st, 2nd & booster Last COVID test: na Past medical History: No past medical history on file. Hospitalizations Within the Past 30 Days: no previous admission in last 30 days Current Decision-Making Capacity: Self If AD's have not been completed the following surrogate would be surrogate decision maker per [place] surrogate decision making law. (Only good for 180 days) Any patient receiving care in [place] must abide by [place] law. The hierarchy for surrogate decision making [...] (i) The agent with financial power of ip attorney or a conservator appointed in accordance [...] DME: none Home Address confirmed as: [address] [facility] [address] Social & Family Supports: All names listed below confirmed with patient as current and correct Extended Emergency Contact Information Primary Emergency Contact: Mony Abraham Mobile Relation: Sibling Current Care Provided by: self Provides Primary Care For: no one, unable/limited ability to care for self Caregiver if needed: none Quality of Family relationships: non-existent Community Resources being provided currently: outpatient psychiatric care ([facility]) Behavioral Health History: Schizophrenia unspecified; MMD recurrent unspecified; on Olanzapine 15mgQD per Miroslava Anguiano [facility] Substance Use/Abuse confirmed: denies all Social History [...] Yes ; Prescription Coverage: Yes Preferred Pharmacy: [id number] AT [facility] & [address] [address] [place] Status: Patient is a : No Primary [...] 7:38 AM EDT Hypertension-Nephrology Consultation Miguel Sanchez [id number] 1955 ID: Miguel Sanchez is 67 y.o. yo male requiring inpatient consultation for CELM at the request of Dr. Lim. Past [...] labs. This case was discussed with staff mobility developer Dr. Morrow and the patient's primary team. Please contact me at phone: [phone] or pager: [phone] with any questions. Deonte Lugo MD Nephrology [...] 10:00 AM [place] [address] Austin Simon MD [facility] [place] [address] Lindy Box APRN [facility] [place] [address] Scheduled Referrals Name Type Priority Associated Diagnoses [...] 3:49 AM EDT DIFFERENTIAL, AUTOMATED Routine 01/28/20 23 3:49 AM EDT HC VENIPUNCTURE Routine 01/27/2023 [...] POC Glucose 159 65 - 199 mg/dL [facility] Comment: Supplemental ranges: <140 mg/dL before meals <180 mg/dL all other times of the day Blood 01/27/2023 12:1 8 PM EDT 01/27/2023 12:18 PM EDT Mendel Luna MD POINT OF CARE TEST O RDERABLES Performing Organization Address City/[facility]/ZIP Co de Phone Number [facility] [place] [address] * POCT Glucose (01/27/2023 7:58 AM EDT) POC Glucose 173 65 - 199 mg/dL [facility] Comment: Supplemental ranges: <140 mg/dL before meals <180 mg/dL all other times of the day Blood 01/27/2023 7:58 AM EDT 01/27/2023 7:58 AM EDT Mendel Luan MD POINT OF CARE TEST O RDERABLES Performing Organization Address City/[facility]/ZIP Co de Phone Number [facility] [place] [address] * (ABNORMAL) Differential, Automated (01/27/2023 3:49 AM EDT) Neutrophils % 75.3 % [facility] Neutr Abs (ANC) 6.21(H) 1.70 - 6.10 x10(3)/[facility] Lymphocytes % 12.1 % [facility] Lymphocytes Abs 1.0 0.9 - 3.2 x10(3)/[facility] Monocytes % 8.6 % [facility] Monocyte Abs 0.7 0.3 - 0.9 x10(3)/[facility] Eosinophils % 2.9 % [facility] Eosinophils Abs 0.2 0.0 - 0.4 x10(3)/[facility] Basophils % 0.7 % [facility] Basophils Abs 0.1 0.0 - 0.1 x10(3)/[facility] Immature Gran % 0.40 % [facility] Comment: Immature granulocytes(IG's)percentage and absolute count will include metamyelocytes, myelocytes, and promyelocytes. Blood smears from CBCs yielding IG's will be scanned manually for concordance. If this scan disagrees with the automated IG or if promyelocytes are noted, a manual differential will be performed. Angelica Gran Abs 0.03 0.00 - 0.04 x10(3)/[facility] Blood 01/27/2023 3:49 AM EDT 01/27/2023 4:08 AM EDT Narrative Resulting Agency Comment Spec In Lab Kyle Mckeon MD HEMATOLOGY ORDERABLE S [facility] [place] [address] * (ABNORMAL) Hemogram (01/27/2023 3:49 AM EDT) WBC 8.2 4.0 - 9.5 x10(3)/[facility] RBC 3.45(L) 4.58 - 5.54 x10(6)/[facility] Hemoglobin 10.6(L) 13.7 - 16.5 g/dL [facility] Hematocrit 31.5(L) 40.5 - 48.5 % [facility] MCV 91.3 82.9 - 93.1 [facility] MCH 30.7 27.5 - 32.1 pg [facility] MCHC 33.7 32.0 - 35.7 g/dL [facility] Platelets 163 145 - 357 x10(3)/[facility]ORY RDWSD 42.7 36.0 - 45.0 [facility] RDWCV 13.0 11.4 - 13.8 % [facility] MPV 12.8 7.6 - 12.9 [facility] nRBC % Auto 0.0 % [facility] nRBC Abs Auto 0.000 0.000 - 0.000 x10(3)/[facility] Blood 01/27/2023 3:49 AM EDT 01/27/2023 4:08 AM EDT Narrative Resulting Agency Comment Spec In Lab Kyle Mckeon MD HEMATOLOGY ORDERABLE S [facility] [place] [address] * (ABNORMAL) Phosphorus (01/27/2023 3:49 AM EDT) Phosphorus 5.0(H) 2.5 - 4.5 mg/dL [facility] Blood 01/27/2023 3:49 AM EDT 01/27/2023 4:08 AM EDT Narrative Resulting Agency Comment Spec In Lab Tanya Seaamn MD CHEMISTRY ORDERABL ES Performing Organization Address City/[facility]/ZIP Co de Phone Number [facility] [place] [address] * Magnesium (01/27/2023 3:49 AM EDT) Magnesium 0.97 0.69 - 1.07 mmol/L [facility] Blood 01/27/2023 3:49 AM EDT 01/27/2023 4:08 AM EDT Narrative Resulting Agency Comment Spec In Lab Tanya Seaman MD CHEMISTRY ORDERABL ES [facility] [place] [address] * (ABNORMAL) Basic Metabolic Panel (non-fasting) (01/27/2023 3:49 AM EDT) Glucose Lvl 142 65 - 199 mg/dL [facility] Comment:Diabetes: >=200 mg/d L plus symptoms BUN 78(H) 10 - 20 mg/dL [facility] Creatinine 4.74(H) 0.80 - 1.50 mg/dL [facility] Sodium 137 135 - 145 mmol/L [facility] Potassium 4.8 3.5 - 5.0 mmol/L [facility] Comment: Please note: ??Patients with WBC >100,000 may have falsely elevated Potassium levels. ??For accurate Potassium quantification in these patients send serum separator tube (gold top) for subsequent determinations. ??Contact the Clinical Chemistry Laboratory if there are any questions. Chloride 107 98 - 107 mmol/L [facility] CO2 15(L) 22 - 31 mmol/L [facility] Anion Gap 15 5 - 15 mmol/L [facility] Calcium 9.4 8.5 - 10.5 mg/dL [facility] Estimated GFR 13(L) >=60 mL/min/1. 73 m?? [facility] Comment: This patient's estimated [...] MD CHEMISTRY ORDERABL ES Performing Organization Address City/[facility]/ZIP Co de Phone Number [facility] [place] [address] * (ABNORMAL) POCT Glucose (01/26/2023 8:20 PM EDT) POC Glucose 202(H) 65 - 199 mg/dL [facility] Comment: Supplemental ranges: <140 mg/dL before meals <180 mg/dL all other times of the day Blood 01/26/2023 8:20 PM EDT 01/26/2023 8:20 PM EDT Mendel Luna MD POINT OF CARE TEST O RDERABLES Performing Organization Address [facility] Co de Phone Number [facility] [place] [address] * POCT Glucose (01/26/2023 4:04 PM EDT) POC Glucose 152 65 - 199 mg/dL [facility] Comment: Supplemental ranges: <140 mg/dL before meals <180 mg/dL all other times of the day Blood 01/26/2023 4:04 PM EDT 01/26/2023 4:04 PM EDT Mendel Luna MD POINT OF CARE TEST O RDERABLES Performing Organization Address City/[facility]/ZIP Co de Phone Number [facility] [place] [address] * POCT Glucose (01/26/2023 11:42 AM EDT) POC Glucose 175 65 - 199 mg/dL [facility] Comment: Supplemental ranges: <140 mg/dL before meals <180 mg/dL all other times of the day Blood 01/26/2023 11:4 2 AM EDT 01/26/2023 11:42 AM EDT Mendel Luna MD POINT OF CARE TEST O RDERABLES Performing Organization Address City/[facility]/ZIP Co de Phone Number [facility] [place] [address] * POCT Glucose (01/26/2023 7:51 AM EDT) [facility] POC Glucose 137 65 - 199 mg/dL [facility] Comment: Supplemental ranges: <140 mg/dL before meals <180 mg/dL all other times of the day Blood 01/26/2023 7:51 AM EDT 01/26/2023 7:51 AM EDT Mendel Luna MD POINT OF CARE TEST O RDERABLES Performing Organization Address City/[facility]/ZIP Co de Phone Number [facility] [place] [address] * Differential, Automated (01/26/2023 3:11 AM EDT) [facility] Neutrophils % 71.1 % [facility] Neutr Abs (ANC) 5.94 1.70 - 6.10 x10(3)/[facility] Lymphocytes % 15.3 % [facility] Lymphocytes Abs 1.3 0.9 - 3.2 x10(3)/[facility] Monocytes % 8.9 % [facility] Monocyte Abs 0.7 0.3 - 0.9 x10(3)/[facility] Eosinophils % 3.6 % [facility] Eosinophils Abs 0.3 0.0 - 0.4 x10(3)/[facility] Basophils % 0.7 % [facility] Basophils Abs 0.1 0.0 - 0.1 x10(3)/[facility] Immature Gran % 0.40 % [facility] Comment: Immature granulocytes(IG's)percentage and absolute count will include metamyelocytes, myelocytes, and promyelocytes. Blood smears from CBCs yielding IG's will be scanned manually for concordance. If this scan disagrees with the automated IG or if promyelocytes are noted, a manual differential will be performed. Angelica Gran Abs 0.03 0.00 - 0.04 x10(3)/[facility] Blood 01/26/2023 3:11 AM EDT 01/26/2023 3:40 AM EDT Narrative Resulting Agency Comment Spec In Lab Kyle Mckeon MD HEMATOLOGY ORDERABLE S [facility] [place] [address] * (ABNORMAL) Hemogram (01/26/2023 3:11 AM EDT) WBC 8.4 4.0 - 9.5 x10(3)/[facility] RBC 3.25(L) 4.58 - 5.54 x10(6)/[facility] Hemoglobin 10.2(L) 13.7 - 16.5 g/dL [facility] Hematocrit 29.8(L) 40.5 - 48.5 % [facility] MCV 91.7 82.9 - 93.1 fL [facility] MCH 31.4 27.5 - 32.1 pg [facility] MCHC 34.2 32.0 - 35.7 g/dL [facility] Platelets 161 145 - 357 x10(3)/[facility] RDWSD 43.0 36.0 - 45.0 fL [facility] RDWCV 13.0 11.4 - 13.8 % [facility] MPV 13.0(H) 7.6 - 12.9 fL [facility] nRBC % Auto 0.0 % [facility] nRBC Abs Auto 0.000 0.000 - 0.000 x10(3)/mcL [facility] Blood 01/26/2023 3:11 AM EDT 01/26/2023 3:40 AM EDT Narrative Resulting Agency Comment Spec In Lab Kyle Mckeon MD HEMATOLOGY ORDERABLE S Performing Organization Address City/[facility]/ZIP Co de Phone Number [facility] [place] [address] * (ABNORMAL) Phosphorus (01/26/2023 3:11 AM EDT) Phosphorus 4.6(H) 2.5 - 4.5 mg/dL [facility] Blood 01/26/2023 3:11 AM EDT 01/26/2023 3:39 AM EDT Narrative Resulting Agency Comment Spec In Lab Tanya Seaman MD CHEMISTRY ORDERABL ES Performing Organization Address [facility] Co de Phone Number [facility] [place] [address] * Magnesium (01/26/2023 3:11 AM EDT) Magnesium 0.97 0.69 - 1.07 mmol/L [facility] Blood 01/26/2023 3:11 AM EDT 01/26/2023 3:39 AM EDT Narrative Resulting Agency Comment Spec In Lab Tanya Seaman MD CHEMISTRY ORDERABL ES Performing Organization Address [facility] Co de Phone Number [facility] [place] [address] * (ABNORMAL) Basic Metabolic Panel (non-fasting) (01/26/2023 3:11 AM EDT) Glucose Lvl 127 65 - 199 mg/dL [facility] Comment:Diabetes: >=200 mg/d L plus symptoms BUN 77(H) 10 - 20 mg/dL [facility] Creatinine 4.91(H) 0.80 - 1.50 mg/dL [facility] Sodium 139 135 - 145 mmol/L [facility] Potassium 4.8 3.5 - 5.0 mmol/L [facility] Comment: Please note: ??Patients with WBC >100,000 may have falsely elevated Potassium levels. ??For accurate Potassium quantification in these patients send serum separator tube (gold top) for subsequent determinations. ??Contact the Clinical Chemistry Laboratory if there are any questions. Chloride 105 98 - 107 mmol/L [facility] CO2 18(L) 22 - 31 mmol/L [facility] Anion Gap 16(H) 5 - 15 mmol/L [facility] Calcium 9.3 8.5 - 10.5 mg/dL [facility] Estimated GFR 12(L) >=60 mL/min/1. 73 m?? [facility] Comment: This patient's estimated [...] Lab Tanya Seaman MD CHEMISTRY ORDERABL ES [facility] [place] [address] * POCT Glucose (01/25/2023 9:24 PM EDT) POC Glucose 181 65 - 199 mg/dL [facility] Comment: Supplemental ranges: <140 mg/dL before meals <180 mg/dL all other times of the day Blood 01/25/2023 9:24 PM EDT 01/25/2023 9:24 PM EDT Mendel Luna MD POINT OF CARE TEST O TESSA Performing Organization Address City/[facility] Co de Phone Number [facility] [place] [address] * POCT Glucose (01/25/2023 4:46 PM EDT) POC Glucose 153 65 - 199 mg/dL [facility] Comment: Supplemental ranges: <140 mg/dL before meals <180 mg/dL all other times of the day Blood 01/25/2023 4:46 PM EDT 01/25/2023 4:46 PM EDT Mendel Luna MD POINT OF CARE TEST O TESSA Performing Organization Address [facility] Co de Phone Number [facility] [place] [address] * US Retroperitoneal Complete (01/25/2023 3:50 PM [...] who have questions, please contact the health pet care worker that requested your imaging first. ?Elsie Garza, [facility] Client Resolution Specialist Electronically Signed Final Report ?? 01/25/2023 04:10 pm Narrative 01/25/2023 4:11 PM EDT Renal ? (Signed Final 01/25/2023 04:10 pm) PATIENT INFO: ID #: ? [id number] ?: ??[birth year] (67 yrs)(M) Name: ? MIGUEL SANCHEZ ? Visit Date: 01/25/2023 03:47 pm PERFORMED BY: Attending: ?Kayla OTT, Elsie Conley Performed By: ? Paola Pritchard RDMS Referred By: ?MENDEL LUNA Location: ? [place] SERVICE(S) PROVIDED: URETRO - Retroperitoneal Complete - [id number] ? [id number] INDICATIONS: 67yo male with CLEM, repeat U/S [...] 01/25/2023 04:10 pm) PATIENT INFO: ID #: [id number] : [birth year] (67 yrs)(M) Name: IMGUEL SANCHEZ Visit Date: 01/25/2023 03:47 pm PERFORMED BY: Attending: Elsie Garza MD Performed By: Paola Pritchard RDMS Referred By: MENDEL LUNA Location: [place] SERVICE(S) PROVIDED: URETRO - Retroperitoneal Complete - [id number] INDICATIONS: 67yo male with CLEM, repeat U/S [...] who have questions, please contact the health pet care worker that requested your imaging first. Elsie Garza, [facility] Client Resolution Specialist Electronically Signed Final Report 01/25/2023 04:10 pm Mendel Luna MD IMG US GEN ORDERABLE S * POCT Glucose (01/25/2023 11:20 AM EDT) POC Glucose 182 65 - 199 mg/dL [facility] Comment: Supplemental ranges: <140 mg/dL before meals <180 mg/dL all other times of the day Blood 01/25/2023 11:2 0 AM EDT 01/25/2023 11:20 AM EDT Mendel Luna MD POINT OF CARE TEST O RDERABLES Performing Organization Address City/[facility]/ZIP Co de Phone Number [facility] [place] [address] * POCT Glucose (01/25/2023 7:44 AM EDT) Pathologist [facility] POC Glucose 155 65 - 199 mg/dL [facility] Comment: Supplemental ranges: <140 mg/dL before meals <180 mg/dL all other times of the day Blood 01/25/2023 7:44 AM EDT 01/25/2023 7:44 AM EDT Mendel Luna MD POINT OF CARE TEST O RDSHANELLE [facility] [place] [address] * Differential, Automated (01/25/2023 4:06 AM EDT) Pathologist [facility] Neutrophils % 72.7 % [facility] Neutr Abs (ANC) 5.96 1.70 - 6.10 x10(3)/[facility] Lymphocytes % 14.7 % [facility] Lymphocytes Abs 1.2 0.9 - 3.2 x10(3)/[facility] Monocytes % 8.2 % [facility] Monocyte Abs 0.7 0.3 - 0.9 x10(3)/[facility] Eosinophils % 3.5 % [facility] Eosinophils Abs 0.3 0.0 - 0.4 x10(3)/[facility] Basophils % 0.7 % [facility] Basophils Abs 0.1 0.0 - 0.1 x10(3)/[facility] Immature Gran % 0.20 % [facility] Comment: Immature granulocytes(IG's)percentage and absolute count will include metamyelocytes, myelocytes, and promyelocytes. Blood smears from CBCs yielding IG's will be scanned manually for concordance. If this scan disagrees with the automated IG or if promyelocytes are noted, a manual differential will be performed. Angelica Gran Abs 0.02 0.00 - 0.04 x10(3)/[facility] Blood 01/25/2023 4:06 AM EDT 01/25/2023 4:17 AM EDT Narrative Resulting Agency Comment Spec In Lab Kyle Mckeon MD HEMATOLOGY ORDERABLE S [facility] [place] [address] * (ABNORMAL) Hemogram (01/25/2023 4:06 AM EDT) WBC 8.2 4.0 - 9.5 x10(3)/[facility] RBC 3.38(L) 4.58 - 5.54 x10(6)/[facility] Hemoglobin 10.6(L) 13.7 - 16.5 g/dL [facility] Hematocrit 30.7(L) 40.5 - 48.5 % [facility] MCV 90.8 82.9 - 93.1 fL [facility] MCH 31.4 27.5 - 32.1 pg [facility] MCHC 34.5 32.0 - 35.7 g/dL [facility] Platelets 170 145 - 357 x10(3)/[facility] RDWSD 42.1 36.0 - 45.0 [facility] RDWCV 12.8 11.4 - 13.8 % [facility] MPV 12.6 7.6 - 12.9 [facility] LABORATORY nRBC % Auto 0.0 % [facility] nRBC Abs Auto 0.000 0.000 - 0.000 x10(3)/mcL [facility] Blood 01/25/2023 4:06 AM EDT 01/25/2023 4:17 AM EDT Narrative Resulting Agency Comment Spec In Lab Kyle Mckeon MD HEMATOLOGY ORDERABLE S Performing Organization Address City/[facility]/ZIP Co de Phone Number [facility] [place] [address] * (ABNORMAL) Phosphorus (01/25/2023 4:06 AM EDT) Phosphorus 4.9(H) 2.5 - 4.5 mg/dL [facility] Blood 01/25/2023 4:06 AM EDT 01/25/2023 4:17 AM EDT Narrative Resulting Agency Comment Spec In Lab Tanya Seaman MD CHEMISTRY ORDERABL ES Performing Organization Address [facility] Co de Phone Number [facility] [place] [address] * Magnesium (01/25/2023 4:06 AM EDT) Magnesium 1.00 0.69 - 1.07 mmol/L [facility] Blood 01/25/2023 4:06 AM EDT 01/25/2023 4:17 AM EDT Narrative Resulting Agency Comment Spec In Lab Tanya Seaman MD CHEMISTRY ORDERABL ES Performing Organization Address [facility] Co de Phone Number [facility] [place] [address] * (ABNORMAL) Basic Metabolic Panel (non-fasting) (01/25/2023 4:06 AM EDT) Glucose Lvl 148 65 - 199 mg/dL [facility] Comment:Diabetes: >=200 mg/d L plus symptoms BUN 78(H) 10 - 20 mg/dL [facility] Creatinine 5.06(H) 0.80 - 1.50 mg/dL [facility] Sodium 139 135 - 145 mmol/L [facility] Potassium 4.5 3.5 - 5.0 mmol/L [facility] Comment: Please note: ??Patients with WBC >100,000 may have falsely elevated Potassium levels. ??For accurate Potassium quantification in these patients send serum separator tube (gold top) for subsequent determinations. ??Contact the Clinical Chemistry Laboratory if there are any questions. Chloride 103 98 - 107 mmol/L [facility] CO2 19(L) 22 - 31 mmol/L [facility] Anion Gap 17(H) 5 - 15 mmol/L [facility] Calcium 9.5 8.5 - 10.5 mg/dL [facility] Estimated GFR 12(L) >=60 mL/min/1. 73 m?? [facility] Comment: This patient's estimated [...] Lab Tanya Seaman MD CHEMISTRY ORDERABL ES [facility] [place] [address] * POCT Glucose (01/24/2023 10:12 PM EDT) POC Glucose 175 65 - 199 mg/dL [facility] Comment: Supplemental ranges: <140 mg/dL before meals <180 mg/dL all other times of the day Blood 01/24/2023 10:1 2 PM EDT 01/24/2023 10:12 PM EDT Mendel uLna MD POINT OF CARE TEST O RDERABLES Performing Organization Address City/[facility]/ZIP Co de Phone Number [facility] [place] [address] * POCT Glucose (01/24/2023 4:41 PM EDT) POC Glucose 157 65 - 199 mg/dL [facility] Comment: Supplemental ranges: <140 mg/dL before meals <180 mg/dL all other times of the day Blood 01/24/2023 4:41 PM EDT 01/24/2023 4:41 PM EDT Mendel Luna MD POINT OF CARE TEST O RDERABLES Performing Organization Address [facility]/ZIP Co de Phone Number [facility] [place] [address] * POCT Glucose (01/24/2023 12:10 PM EDT) POC Glucose 177 65 - 199 mg/dL [facility] Comment: Supplemental ranges: <140 mg/dL before meals <180 mg/dL all other times of the day Blood 01/24/2023 12:1 0 PM EDT 01/24/2023 12:10 PM EDT Mendel Luna MD POINT OF CARE TEST O RDERABLES [facility] [place] [address] * POCT Glucose (01/24/2023 7:51 AM EDT) POC Glucose 175 65 - 199 mg/dL [facility] Comment: Supplemental ranges: <140 mg/dL before meals <180 mg/dL all other times of the day Blood 01/24/2023 7:51 AM EDT 01/24/2023 7:51 AM EDT Mendel Luna MD POINT OF CARE TEST O RDERABLES Performing Organization Address [facility] de Phone Number [facility] [place] [address] * (ABNORMAL) Phosphorus (01/24/2023 2:56 AM EDT) Phosphorus 5.0(H) 2.5 - 4.5 mg/dL [facility] Blood 01/24/2023 2:56 AM EDT 01/24/2023 3:06 AM EDT Narrative Resulting Agency Comment Spec In Lab Tanya Seaman MD CHEMISTRY ORDERABL ES Performing Organization Address [facility] de Phone Number [facility] [place] [address] * Magnesium (01/24/2023 2:56 AM EDT) Magnesium 0.94 0.69 - 1.07 mmol/L [facility] Blood 01/24/2023 2:56 AM EDT 01/24/2023 3:06 AM EDT Narrative Resulting Agency Comment Spec In Lab Tanya Seaman MD CHEMISTRY ORDERABL ES Performing Organization Address [facility] de Phone Number [facility] [place] [address] * (ABNORMAL) Basic Metabolic Panel (non-fasting) (01/24/2023 2:56 AM EDT) Glucose Lvl 131 65 - 199 mg/dL [facility] Comment:Diabetes: >=200 mg/d L plus symptoms BUN 80(H) 10 - 20 mg/dL [facility] Creatinine 5.46(H) 0.80 - 1.50 mg/dL [facility] Sodium 139 135 - 145 mmol/L [facility] Potassium 4.5 3.5 - 5.0 mmol/L [facility] Comment: Please note: ??Patients with WBC >100,000 may have falsely elevated Potassium levels. ??For accurate Potassium quantification in these patients send serum separator tube (gold top) for subsequent determinations. ??Contact the Clinical Chemistry Laboratory if there are any questions. Chloride 104 98 - 107 mmol/L [facility] CO2 21(L) 22 - 31 mmol/L [facility] Anion Gap 14 5 - 15 mmol/L [facility] Calcium 9.3 8.5 - 10.5 mg/dL [facility] Estimated GFR 11(L) >=60 mL/min/1. 73 m?? [facility] Comment: This patient's estimated [...] Lab Tanya Seaman MD CHEMISTRY ORDERABL ES [facility] [place] [address] * POCT Glucose (01/23/2023 9:16 PM EDT) POC Glucose 150 65 - 199 mg/dL [facility] Comment: Supplemental ranges: <140 mg/dL before meals <180 mg/dL all other times of the day Blood 01/23/2023 9:16 PM EDT 01/23/2023 9:16 PM EDT Mendel Luna MD POINT OF CARE TEST O TESSA Performing Organization Address [facility] Co de Phone Number [facility] [place] [address] * (ABNORMAL) POCT Glucose (01/23/2023 3:13 PM EDT) POC Glucose 246(H) 65 - 199 mg/dL [facility] Comment: Supplemental ranges: <140 mg/dL before meals <180 mg/dL all other times of the day Blood 01/23/2023 3:13 PM EDT 01/23/2023 3:13 PM EDT Mendel Luna MD POINT OF CARE TEST O BERNARDINOERAMARCY Performing Organization Address [facility] Co de Phone Number [facility] [place] [address] * POCT Glucose (01/23/2023 11:06 AM EDT) POC Glucose 163 65 - 199 mg/dL [facility] Comment: Supplemental ranges: <140 mg/dL before meals <180 mg/dL all other times of the day Blood 01/23/2023 11:0 6 AM EDT 01/23/2023 11:06 AM EDT Mendel Luna MD POINT OF CARE TEST O RDERAMARCY Performing Organization Address [facility] Co de Phone Number [facility] [place] [address] * POCT Glucose (01/23/2023 7:46 AM EDT) POC Glucose 165 65 - 199 mg/dL [facility] Comment: Supplemental ranges: <140 mg/dL before meals <180 mg/dL all other times of the day Blood 01/23/2023 7:46 AM EDT 01/23/2023 7:46 AM EDT Mendel Luna MD POINT OF CARE TEST O RDERABLES [facility] [place] [address] * Differential, Automated (01/23/2023 2:53 AM EDT) Neutrophils % 72.0 % [facility] Neutr Abs (ANC) 5.86 1.70 - 6.10 x10(3)/[facility] Lymphocytes % 13.8 % [facility] Lymphocytes Abs 1.1 0.9 - 3.2 x10(3)/[facility] Monocytes % 9.2 % [facility] Monocyte Abs 0.8 0.3 - 0.9 x10(3)/[facility] Eosinophils % 4.1 % [facility] Eosinophils Abs 0.3 0.0 - 0.4 x10(3)/[facility] Basophils % 0.7 % [facility] Basophils Abs 0.1 0.0 - 0.1 x10(3)/[facility] Immature Gran % 0.20 % [facility] Comment: Immature granulocytes(IG's)percentage and absolute count will include metamyelocytes, myelocytes, and promyelocytes. Blood smears from CBCs yielding IG's will be scanned manually for concordance. If this scan disagrees with the automated IG or if promyelocytes are noted, a manual differential will be performed. Angelica Gran Abs 0.02 0.00 - 0.04 x10(3)/[facility] Blood 01/23/2023 2:53 AM EDT 01/23/2023 3:05 AM EDT Narrative Resulting Agency Comment Spec In Lab Kyle Mckeon MD HEMATOLOGY ORDERABLE S [facility] [place] [address] * (ABNORMAL) Hemogram (01/23/2023 2:53 AM EDT) WBC 8.1 4.0 - 9.5 x10(3)/[facility] RBC 3.41(L) 4.58 - 5.54 x10(6)/[facility] Hemoglobin 10.4(L) 13.7 - 16.5 g/dL [facility] Hematocrit 30.7(L) 40.5 - 48.5 % [facility] MCV 90.0 82.9 - 93.1 [facility] MCH 30.5 27.5 - 32.1 pg [facility] MCHC 33.9 32.0 - 35.7 g/dL [facility] Platelets 182 145 - 357 x10(3)/[facility] RDWSD 42.3 36.0 - 45.0 [facility] RDWCV 13.0 11.4 - 13.8 % [facility] MPV 12.1 7.6 - 12.9 [facility] nRBC % Auto 0.0 % [facility] nRBC Abs Auto 0.000 0.000 - 0.000 x10(3)/[facility] Blood 01/23/2023 2:53 AM EDT 01/23/2023 3:05 AM EDT Narrative Resulting Agency Comment Spec In Lab Kyle Mckeon MD HEMATOLOGY ORDERABLE S [facility] [place] [address] * (ABNORMAL) Phosphorus (01/23/2023 2:53 AM EDT) Phosphorus 5.8(H) 2.5 - 4.5 mg/dL [facility] Blood 01/23/2023 2:53 AM EDT 01/23/2023 3:05 AM EDT Narrative Resulting Agency Comment Spec In Lab Tanya Seaman MD CHEMISTRY ORDERABL ES Performing Organization Address [facility] Co de Phone Number [facility] [place] [address] * Magnesium (01/23/2023 2:53 AM EDT) Magnesium 0.96 0.69 - 1.07 mmol/L [facility] Blood 01/23/2023 2:53 AM EDT 01/23/2023 3:05 AM EDT Narrative Resulting Agency Comment Spec In Lab Tanya Seaman MD CHEMISTRY ORDERABL ES Performing Organization Address [facility] Co de Phone Number [facility] [place] [address] * (ABNORMAL) Basic Metabolic Panel (non-fasting) (01/23/2023 2:53 AM EDT) Glucose Lvl 131 65 - 199 mg/dL [facility] Comment:Diabetes: >=200 mg/d L plus symptoms BUN 81(H) 10 - 20 mg/dL [facility] Creatinine 5.47(H) 0.80 - 1.50 mg/dL [facility] Sodium 139 135 - 145 mmol/L [facility] Potassium 4.4 3.5 - 5.0 mmol/L [facility] Comment: Please note: ??Patients with WBC >100,000 may have falsely elevated Potassium levels. ??For accurate Potassium quantification in these patients send serum separator tube (gold top) for subsequent determinations. ??Contact the Clinical Chemistry Laboratory if there are any questions. Chloride 105 98 - 107 mmol/L [facility] CO2 20(L) 22 - 31 mmol/L [facility] Anion Gap 14 5 - 15 mmol/L [facility] Calcium 9.2 8.5 - 10.5 mg/dL [facility] Estimated GFR 11(L) >=60 mL/min/1. 73 m?? [facility] Comment: This patient's estimated [...] MD CHEMISTRY ORDERABL ES Performing Organization Address [facility]/ZIP Co de Phone Number [facility] [place] [address] * (ABNORMAL) POCT Glucose (01/22/2023 7:28 PM EDT) POC Glucose 237(H) 65 - 199 mg/dL [facility] Comment: Supplemental ranges: <140 mg/dL before meals <180 mg/dL all other times of the day Blood 01/22/2023 7:28 PM EDT 01/22/2023 7:28 PM EDT Mendel Luna MD POINT OF CARE TEST O RDERABLES Performing Organization Address City/[facility]/ZIP Co de Phone Number [facility] [place] [address] * POCT Glucose (01/22/2023 5:30 PM EDT) POC Glucose 130 65 - 199 mg/dL [facility] Comment: Supplemental ranges: <140 mg/dL before meals <180 mg/dL all other times of the day Blood 01/22/2023 5:30 PM EDT 01/22/2023 5:30 PM EDT Mendel Luna MD POINT OF CARE TEST O RDERABLES Performing Organization Address [facility]/State/ZIP Co de Phone Number [facility] [place] [address] * CARDIAC CATHETERIZATION (01/22/2023 5:10 PM EDT) Anatomical Region Laterality Modality Other Narrative 01/22/2023 5:07 PM EDT ?[facility] ? Cardiac Catheterization/Intervention Report ? Patient Name: Daniel, Miguel ? Procedure Date: 01/22/2023 ? A #: [id number] ? Primary Physician: Morris, Layton P ? Case #: [id number] ? File Name: [id number] ? Catheterization Order Number: [id number] ? [facility] ? Final Report [place], [place] ? Patient Name: ? Migule Sanchez ? ID#: ?[id number] ? : ?1955 ? Procedure Date: ? January 22, 2023 ?Case #: ? [id number] ? Room: ? 5 ? Case Physician: [...] procedure was Urgent. The indication for ?the laborer cheesemaking visit is cardiomyopathy. Chest pain symptom assessment [...] Morris M.D. ? Electronically Signed by: Layton P Morris, M.D. ? Report Finalized: 01/22/2023 ??17:03 ? Procedure Note Layton Morris MD - 01/22/2023 [facility] Cardiac Catheterization/Intervention Report Patient Name: Miguel Sanchez Procedure Date: 01/22/2023 A #: [id number] Primary Physician: Layton Morris Case #: [id number] File Name: [id number] Catheterization Order Number: [id number] [facility] FinalReport [place], [place] Patient Name: Miguel Sanchez ID#:[id number] :1955 Procedure Date: January 22, 2023 Case [...] patient was designated as ASA Class III. [facility] clinical frailty scale is 5: Mildly Frail. Diagnostic Tests: Medications Prior to Procedure: Angiotensin Converting Enzyme Inhibitor, Aspirin, Beta Blockerand Statin. Indications for Diagnostic Cath: The priority of the diagnostic procedure was Urgent. The indicationfor the laborer cheesemaking visit is cardiomyopathy. Chest pain symptom assessmentwas: [...] POC Glucose 165 65 - 199 mg/dL [facility] Comment: Supplemental ranges: <140 mg/dL before meals <180 mg/dL all other times of the day Blood 01/22/2023 12:3 5 PM EDT 01/22/2023 12:35 PM EDT Mendel Luna MD POINT OF CARE TEST O RDERABLES Performing Organization Address City/[facility]/ZIP Co de Phone Number [facility] [place] [address] * POCT Glucose (01/22/2023 7:52 AM EDT) POC Glucose 145 65 - 199 mg/dL [facility] Comment: Supplemental ranges: <140 mg/dL before meals <180 mg/dL all other times of the day Blood 01/22/2023 7:52 AM EDT 01/22/2023 7:52 AM EDT Chris Lim MD POINT OF CARE TEST O TESSA [facility] [place] [address] * Differential, Automated (01/22/2023 2:42 AM EDT) Neutrophils % 73.7 % [facility] Neutr Abs (ANC) 6.10 1.70 - 6.10 x10(3)/[facility] Lymphocytes % 12.5 % [facility] Lymphocytes Abs 1.0 0.9 - 3.2 x10(3)/[facility] Monocytes % 8.8 % [facility] Monocyte Abs 0.7 0.3 - 0.9 x10(3)/[facility] Eosinophils % 4.1 % [facility] Eosinophils Abs 0.3 0.0 - 0.4 x10(3)/[facility] Basophils % 0.7 % [facility] Basophils Abs 0.1 0.0 - 0.1 x10(3)/[facility] Immature Gran % 0.20 % [facility] Comment: Immature granulocytes(IG's)percentage and absolute count will include metamyelocytes, myelocytes, and promyelocytes. Blood smears from CBCs yielding IG's will be scanned manually for concordance. If this scan disagrees with the automated IG or if promyelocytes are noted, a manual differential will be performed. Angelica Gran Abs 0.02 0.00 - 0.04 x10(3)/[facility] Blood 01/22/2023 2:42 AM EDT 01/22/2023 3:03 AM EDT Narrative Resulting Agency Comment Spec In Lab Kyle Mckeon MD HEMATOLOGY ORDERABLE S [facility] [place] [address] * (ABNORMAL) Hemogram (01/22/2023 2:42 AM EDT) WBC 8.3 4.0 - 9.5 x10(3)/[facility] RBC 3.41(L) 4.58 - 5.54 x10(6)/[facility] Hemoglobin 10.3(L) 13.7 - 16.5 g/dL [facility] Hematocrit 30.8(L) 40.5 - 48.5 % [facility] MCV 90.3 82.9 - 93.1 fL [facility] MCH 30.2 27.5 - 32.1 pg [facility] MCHC 33.4 32.0 - 35.7 g/dL [facility] Platelets 183 145 - 357 x10(3)/[facility] RDWSD 42.0 36.0 - 45.0 [facility] RDWCV 12.9 11.4 - 13.8 % [facility] MPV 12.1 7.6 - 12.9 [facility] nRBC % Auto 0.0 % [facility] nRBC Abs Auto 0.000 0.000 - 0.000 x10(3)/mcL [facility] Blood 01/22/2023 2:42 AM EDT 01/22/2023 3:03 AM EDT Narrative Resulting Agency Comment Spec In Lab Kyle Mckeon MD HEMATOLOGY ORDERABLE S Performing Organization Address City/[facility]/ZIP Co de Phone Number [facility] [place] [address] * (ABNORMAL) Phosphorus (01/22/2023 2:42 AM EDT) Phosphorus 5.8(H) 2.5 - 4.5 mg/dL [facility] Blood 01/22/2023 2:42 AM EDT 01/22/2023 3:03 AM EDT Narrative Resulting Agency Comment Spec In Lab Tanya Seaman MD CHEMISTRY ORDERABL ES Performing Organization Address [facility] Co de Phone Number [facility] [place] [address] * Magnesium (01/22/2023 2:42 AM EDT) Magnesium 0.97 0.69 - 1.07 mmol/L [facility] Blood 01/22/2023 2:42 AM EDT 01/22/2023 3:03 AM EDT Narrative Resulting Agency Comment Spec In Lab Tanya Seaman MD CHEMISTRY ORDERABL ES Performing Organization Address [facility] Co de Phone Number [facility] [place] [address] * (ABNORMAL) Basic Metabolic Panel (non-fasting) (01/22/2023 2:42 AM EDT) Glucose Lvl 153 65 - 199 mg/dL [facility] Comment:Diabetes: >=200 mg/d L plus symptoms BUN 79(H) 10 - 20 mg/dL [facility] Creatinine 5.86(H) 0.80 - 1.50 mg/dL [facility] Sodium 138 135 - 145 mmol/L [facility] Potassium 4.2 3.5 - 5.0 mmol/L [facility] Comment: Please note: ??Patients with WBC >100,000 may have falsely elevated Potassium levels. ??For accurate Potassium quantification in these patients send serum separator tube (gold top) for subsequent determinations. ??Contact the Clinical Chemistry Laboratory if there are any questions. Chloride 104 98 - 107 mmol/L [facility] CO2 20(L) 22 - 31 mmol/L [facility] Anion Gap 14 5 - 15 mmol/L [facility] Calcium 9.2 8.5 - 10.5 mg/dL [facility] Estimated GFR 10(L) >=60 mL/min/1. 73 m?? [facility] Comment: This patient's estimated [...] Lab Tanya Seaman MD CHEMISTRY ORDERABL ES [facility] [place] [address] * C3 Complement (01/22/2023 2:42 AM EDT) C3 Complement 126 90 - 180 mg/dL [facility] Blood 01/22/2023 2:42 AM EDT 01/22/2023 3:03 AM EDT Narrative Resulting Agency Comment Spec In Lab Chris Lim MD CHEMISTRY ORDERABLES Performing Organization Address [facility]/ZIP Co de Phone Number [facility] [place] [address] * POCT Glucose (01/21/2023 6:41 PM EDT) POC Glucose 199 65 - 199 mg/dL [facility] Comment: Supplemental ranges: <140 mg/dL before meals <180 mg/dL all other times of the day Blood 01/21/2023 6:41 PM EDT 01/21/2023 6:41 PM EDT Chris Lim MD POINT OF CARE TEST O RDERABLES Performing Organization Address [facility]/ZIP Co de Phone Number [facility] [place] [address] * POCT Glucose (01/21/2023 3:57 PM EDT) POC Glucose 125 65 - 199 mg/dL [facility] Comment: Supplemental ranges: <140 mg/dL before meals <180 mg/dL all other times of the day Blood 01/21/2023 3:57 PM EDT 01/21/2023 3:57 PM EDT Chris Lim MD POINT OF CARE TEST O RDERAMARCY Performing Organization Address City/[facility]/ZIP Co de Phone Number [facility] [place] [address] * (ABNORMAL) POCT Glucose (01/21/2023 11:32 AM EDT) POC Glucose 249(H) 65 - 199 mg/dL [facility] Comment: Supplemental ranges: <140 mg/dL before meals <180 mg/dL all other times of the day Blood 01/21/2023 11:3 2 AM EDT 01/21/2023 11:32 AM EDT Chris Lim MD POINT OF CARE TEST O TESSA Performing Organization Address [facility] Co de Phone Number [facility] [place] [address] * (ABNORMAL) POCT Glucose (01/21/2023 9:38 AM EDT) Pathologist [facility] POC Glucose 233(H) 65 - 199 mg/dL [facility] Comment: Supplemental ranges: <140 mg/dL before meals <180 mg/dL all other times of the day Blood 01/21/2023 9:38 AM EDT 01/21/2023 9:38 AM EDT Chris Lim MD POINT OF CARE TEST Loco ZARATE Performing Organization Address [facility] de Phone Number [facility] [place] [address] * EKG 12 Lead (01/21/2023 8:33 AM EDT) Ventricular rate 74 BPM MUSE SYSTEM Atrial Rate 74 BPM MUSE SYSTEM P-R Interval 180 ms MUSE SYSTEM QRS Duration 126 ms MUSE SYSTEM Q-T Interval 454 ms MUSE SYSTEM QTC Calculated (Bezet) 503 ms MUSE SYSTEM Calculated P [place] 32 degrees MUSE SYSTEM Calculated R [place] -35 degrees MUSE SYSTEM Calculated T [place] 97 degrees MUSE SYSTEM INTERPRETATION Normal sinus rhythm Left axis deviation Non-specific intra-ventricu lar conduction block Nonspecific T wave abnormality Abnormal ECG When compared with ECG of 18-JAN-2023 18:52, No significant change was found Confirmed by fellow Lacey Oliveros ([id number]) on 01/23/2023 10:03:20 AM Confirmed by MD Gonzalez David ([id number]) on 01/24/2023 8:22:03 AM MUSE SYSTEM 01/21/2023 8:33 AM EDT 01/24/2023 8:22 AM EDT Tanya Seaman MD ECG ORDERABLES MUSE SYSTEM * POCT Glucose (01/21/2023 8:05 AM EDT) Pathologist [facility] POC Glucose 178 65 - 199 mg/dL [facility] Comment: Supplemental ranges: <140 mg/dL before meals <180 mg/dL all other times of the day Blood 01/21/2023 8:05 AM EDT 01/21/2023 8:05 AM EDT Chris Lim MD POINT OF CARE TEST O RDERABLES Performing Organization Address City/[facility]/ZIP Co de Phone Number [facility] [place] [phone] * Differential, Automated (01/21/2023 2:42 AM EDT) Pathologist [facility] Neutrophils % 70.7 % [facility] Neutr Abs (ANC) 5.75 1.70 - 6.10 x10(3)/[facility] Lymphocytes % 14.5 % [facility] Lymphocytes Abs 1.2 0.9 - 3.2 x10(3)/[facility] LAB[facility] Monocytes % 9.1 % [facility] Monocyte Abs 0.7 0.3 - 0.9 x10(3)/[facility] LAB[facility] Eosinophils % 4.6 % [facility] Eosinophils Abs 0.4 0.0 - 0.4 x10(3)/[facility] LAB[facility] Basophils % 0.7 % [facility] Basophils Abs 0.1 0.0 - 0.1 x10(3)/[facility] LABORATORY Immature Gran % 0.40 % [facility] Comment: Immature granulocytes(IG's)percentage and absolute count will include metamyelocytes, myelocytes, and promyelocytes. Blood smears from CBCs yielding IG's will be scanned manually for concordance. If this scan disagrees with the automated IG or if promyelocytes are noted, a manual differential will be performed. Angelica Gran Abs 0.03 0.00 - 0.04 x10(3)/[facility] LABORATORY Blood 01/21/2023 2:42 AM EDT 01/21/2023 2:59 AM EDT Narrative Resulting Agency Comment Spec In Lab Kyle Mckoen MD HEMATOLOGY ORDERABLE S [facility] [place] [address] * (ABNORMAL) Hemogram (01/21/2023 2:42 AM EDT) WBC 8.1 4.0 - 9.5 x10(3)/[facility] LABORAT[facility] RBC 3.59(L) 4.58 - 5.54 x10(6)/[facility] Hemoglobin 11.1(L) 13.7 - 16.5 g/dL [facility] Hematocrit 32.4(L) 40.5 - 48.5 % [facility] MCV 90.3 82.9 - 93.1 fL [facility] MCH 30.9 27.5 - 32.1 pg [facility] MCHC 34.3 32.0 - 35.7 g/dL [facility] Platelets 202 145 - 357 x10(3)/[facility] LABORATORY RDWSD 42.5 36.0 - 45.0 [facility] LABORATORY RDWCV 12.8 11.4 - 13.8 % [facility] MPV 12.3 7.6 - 12.9 [facility] LABORATORY nRBC % Auto 0.0 % [facility] nRBC Abs Auto 0.000 0.000 - 0.000 x10(3)/[facility] Blood 01/21/2023 2:42 AM EDT 01/21/2023 2:59 AM EDT Narrative Resulting Agency Comment Spec In Lab Kyle Mckeon MD HEMATOLOGY ORDERABLE S Performing Organization Address [facility] de Phone Number [facility] [place] [address] * (ABNORMAL) Phosphorus (01/21/2023 2:42 AM EDT) Phosphorus 5.3(H) 2.5 - 4.5 mg/dL [facility] Blood 01/21/2023 2:42 AM EDT 01/21/2023 2:58 AM EDT Narrative Resulting Agency Comment Spec In Lab Tanya Seaman MD CHEMISTRY ORDERABL ES Performing Organization Address [facility] de Phone Number [facility] [place] [address] * Magnesium (01/21/2023 2:42 AM EDT) Magnesium 0.99 0.69 - 1.07 mmol/L [facility] Blood 01/21/2023 2:42 AM EDT 01/21/2023 2:58 AM EDT Narrative Resulting Agency Comment Spec In Lab Tanya Seaman MD CHEMISTRY ORDERABL ES Performing Organization Address [facility] de Phone Number [facility] [place] [address] * (ABNORMAL) Basic Metabolic Panel (non-fasting) (01/21/2023 2:42 AM EDT) Glucose Lvl 120 65 - 199 mg/dL [facility] Comment:Diabetes: >=200 mg/d L plus symptoms BUN 72(H) 10 - 20 mg/dL [facility] Creatinine 5.70(H) 0.80 - 1.50 mg/dL [facility] Sodium 140 135 - 145 mmol/L [facility] Potassium 4.2 3.5 - 5.0 mmol/L [facility] Comment: Please note: ??Patients with WBC >100,000 may have falsely elevated Potassium levels. ??For accurate Potassium quantification in these patients send serum separator tube (gold top) for subsequent determinations. ??Contact the Clinical Chemistry Laboratory if there are any questions. Chloride 100 98 - 107 mmol/L [facility] CO2 20(L) 22 - 31 mmol/L [facility] Anion Gap 20(H) 5 - 15 mmol/L [facility] Calcium 9.3 8.5 - 10.5 mg/dL [facility] Estimated GFR 10(L) >=60 mL/min/1. 73 m?? [facility] Comment: This patient's estimated [...] Lab Tanya Seaman MD CHEMISTRY ORDERABL ES [facility] [place] [address] * POCT Glucose (01/20/2023 7:45 PM EDT) POC Glucose 158 65 - 199 mg/dL [facility] Comment: Supplemental ranges: <140 mg/dL before meals <180 mg/dL all other times of the day Blood 01/20/2023 7:45 PM EDT 01/20/2023 7:45 PM EDT Chris Lim MD POINT OF CARE TEST O RDERABLES Performing Organization Address [facility] Co de Phone Number [facility] [place] [address] * POCT Glucose (01/20/2023 4:38 PM EDT) POC Glucose 96 65 - 199 mg/dL [facility] Comment: Supplemental ranges: <140 mg/dL before meals <180 mg/dL all other times of the day Blood 01/20/2023 4:38 PM EDT 01/20/2023 4:38 PM EDT Chris Lim MD POINT OF CARE TEST O RDERABLES Performing Organization Address [facility] Co de Phone Number [facility] [place] [address] * POCT Glucose (01/20/2023 4:14 PM EDT) POC Glucose 101 65 - 199 mg/dL [facility] Comment: Supplemental ranges: <140 mg/dL before meals <180 mg/dL all other times of the day Blood 01/20/2023 4:14 PM EDT 01/20/2023 4:14 PM EDT Chris Lim MD POINT OF CARE TEST O RDERABLES Performing Organization Address [facility] Co de Phone Number [facility] [place] [address] * Hepatitis C Antibody (01/20/2023 3:23 PM EDT) Hepatitis C Ab Negative Negative [facility] Blood 01/20/2023 3:23 PM EDT 01/20/2023 3:28 PM EDT Narrative Resulting Agency Comment Spec In Lab Austin Sosa MD IMMUNOLOGY ORDERABLE S Performing Organization Address City/State/[facility] Co de Phone Number [facility] [place] [address] * Hepatitis B Core Antibody, Total (01/20/2023 3:23 PM EDT) Hep B Core Ab Negative Negative [facility] Blood 01/20/2023 3:23 PM EDT 01/20/2023 3:28 PM EDT Narrative Resulting Agency Comment Spec In Lab Chris Lim MD CHEMISTRY ORDERABLES Performing Organization Address [facility] Co de Phone Number [facility] [place] [address] * Hepatitis B Surface Antibody (01/20/2023 3:23 PM EDT) HepB Surface Ab Quant <3.5 IU/L [facility] Comment: HepB Surface Ab Quant: Unvaccinated: < 8.5 IU/L Vaccinated: >= 11.5 IU/L HepB Surface Ab Negative [facility] Comment: Patient is presumed to be not vaccinated or immune to HBV infection. Expected Results: Vaccinated: Positive Unvaccinated: Negative Blood 01/20/2023 3:23 PM EDT 01/20/2023 3:28 PM EDT Narrative Resulting Agency Comment Spec In Lab Chris Lim MD IMMUNOLOGY ORDERABLE S Performing Organization Address [facility] Co de Phone Number [facility] [place] [address] * HIV Screen, 4th Generation ([facility]/CGP/APD/NLH) (01/20/2023 3:23 PM EDT) HIV-1/2 Ab and Ag Negative Negative [facility] Comment: This 4th Generation HIV [...] HIV Comment Low Risk of HIV Infection [facility] Blood 01/20/2023 3:23 PM EDT 01/20/2023 3:28 PM EDT Narrative Resulting Agency Comment Spec In Lab Chris Lim MD IMMUNOLOGY ORDERABLE S Performing Organization Address City/[facility]/ZIP Co de Phone Number [facility] [place] [address] * (ABNORMAL) POCT Glucose (01/20/2023 11:33 AM EDT) POC Glucose 206(H) 65 - 199 mg/dL [facility] Comment: Supplemental ranges: <140 mg/dL before meals <180 mg/dL all other times of the day Blood 01/20/2023 11:3 3 AM EDT 01/20/2023 11:33 AM EDT Chris Lim MD POINT OF CARE TEST O RDERABLES Performing Organization Address City/[facility]/ZIP Co de Phone Number [facility] [place] [address] * POCT Glucose (01/20/2023 7:24 AM EDT) POC Glucose 152 65 - 199 mg/dL [facility] Comment: Supplemental ranges: <140 mg/dL before meals <180 mg/dL all other times of the day Blood 01/20/2023 7:24 AM EDT 01/20/2023 7:24 AM EDT Chris Lim MD POINT OF CARE TEST O RDERAMARCY Performing Organization Address City/[facility]/ZIP Co de Phone Number [facility] [place] [address] * Immunoglobulins, Quantitative (01/20/2023 3:26 AM EDT) IgG 880 700 - 1,600 mg/dL [facility] Comment: Pediatric Reference Intervals obtained from the Caliper Reference Interval project. http://www.sickkids.ca/caliperproject/index.html IgA 286 70 - 400 mg/dL [facility] IgM 72 40 - 230 mg/dL [facility] Blood Venous Draw / Unknown 01/20/2023 3:26 AM EDT 01/20/2023 3:44 AM EDT Narrative Resulting Agency Comment Spec In Lab Deonte Lugo MD CHEMISTRY ORDERABLE S Performing Organization Address [facility]/ZIP Co de Phone Number [facility] [place] [address] * Immunofixation Electrophoresis (01/20/2023 3:26 AM EDT) [facility] DOROTEO See Note [facility] Comment: No specific abnormality observed. Dr. Arnulfo Moore 01/23/2023 See scanned report. Blood Venous Draw / Unknown 01/20/2023 3:26 AM EDT 01/20/2023 3:44 AM EDT Narrative Resulting Agency Comment Spec In Lab Deonte Lugo MD CHEMISTRY ORDERABLE S Performing Organization Address [facility] Co de Phone Number [facility] [place] [address] * Protein Electrophoresis, serum (01/20/2023 3:26 AM EDT) Total Prot Elec 6.5 6.1 - 8.0 g/dL [facility] Albumin Elect 4.11 3.20 - 5.20 g/dL [facility] Alpha1-Globulin 0.25 0.10 - 0.30 g/dL [facility] Alpha2-Globulin 0.75 0.40 - 0.90 g/dL [facility] Beta Globulin 0.68 0.50 - 1.00 g/dL [facility] Gamma Globulin 0.71 0.50 - 1.30 g/dL [facility] M1 Band Comments Below None Detected [facility] SPEP Comments See Note [facility] Comment: Serum protein electrophoresis (PEP) [...] MD CHEMISTRY ORDERABLE S Performing Organization Address City/[facility]/ZIP Co de Phone Number [facility] [place] [address] * C4 Complement (01/20/2023 3:26 AM EDT) C4 Complement 31 10 - 40 mg/dL [facility] Blood Venous Draw / Unknown 01/20/2023 3:26 AM EDT 01/20/2023 3:44 AM EDT Narrative Resulting Agency Comment Spec In Lab Deonte Lugo MD CHEMISTRY ORDERABLE S Performing Organization Address City/[facility]/ZIP Co de Phone Number [facility] [place] [address] * (ABNORMAL) Free Light Chains, Serum (01/20/2023 3:26 AM EDT) [place] Free Light Chain 8.16(H) 0.72 - 2.75 mg/dL [facility] Lambda Free Light Chain 4.53(H) 0.57 - 2.15 mg/dL [facility] [place] Lambda FLC Ratio 1.8013 0.4000 - 2.5800 [facility] Blood Venous Draw / Unknown 01/20/2023 3:26 AM EDT 01/20/2023 3:44 AM EDT Narrative Resulting Agency Comment Spec In Lab Deonte Lugo MD CHEMISTRY ORDERABLE S [facility] [place] [address] * Differential, Automated (01/20/2023 3:26 AM EDT) Neutrophils % 75.0 % [facility] Neutr Abs (ANC) 6.04 1.70 - 6.10 x10(3)/[facility] LABORAT[facility] Lymphocytes % 12.2 % [facility] Lymphocytes Abs 1.0 0.9 - 3.2 x10(3)/[facility] Monocytes % 8.6 % [facility] Monocyte Abs 0.7 0.3 - 0.9 x10(3)/[facility] Eosinophils % 3.3 % [facility] Eosinophils Abs 0.3 0.0 - 0.4 x10(3)/[facility] Basophils % 0.7 % [facility] Basophils Abs 0.1 0.0 - 0.1 x10(3)/[facility] LABORATORY Immature Gran % 0.20 % [facility] Comment: Immature granulocytes(IG's)percentage and absolute count will include metamyelocytes, myelocytes, and promyelocytes. Blood smears from CBCs yielding IG's will be scanned manually for concordance. If this scan disagrees with the automated IG or if promyelocytes are noted, a manual differential will be performed. Angelica Gran Abs 0.02 0.00 - 0.04 x10(3)/[facility] Blood 01/20/2023 3:26 AM EDT 01/20/2023 3:42 AM EDT Narrative Resulting Agency Comment Spec In Lab Kyle Mckeon MD HEMATOLOGY ORDERABLE S [facility] [place] [address] * (ABNORMAL) Hemogram (01/20/2023 3:26 AM EDT) WBC 8.1 4.0 - 9.5 x10(3)/[facility] RBC 3.54(L) 4.58 - 5.54 x10(6)/[facility] Hemoglobin 10.8(L) 13.7 - 16.5 g/dL [facility] Hematocrit 32.5(L) 40.5 - 48.5 % [facility] MCV 91.8 82.9 - 93.1 fL [facility] MCH 30.5 27.5 - 32.1 pg [facility] MCHC 33.2 32.0 - 35.7 g/dL [facility] Platelets 202 145 - 357 x10(3)/[facility] LABORATORY RDWSD 42.9 36.0 - 45.0 [facility] LABORATORY RDWCV 12.7 11.4 - 13.8 % [facility] MPV 11.6 7.6 - 12.9 [facility] LABORATORY nRBC % Auto 0.0 % [facility] nRBC Abs Auto 0.000 0.000 - 0.000 x10(3)/[facility] Blood 01/20/2023 3:26 AM EDT 01/20/2023 3:42 AM EDT Narrative Resulting Agency Comment Spec In Lab Kyle Mckeon MD HEMATOLOGY ORDERABLE S [facility] [place] [address] * (ABNORMAL) Phosphorus (01/20/2023 3:26 AM EDT) Phosphorus 4.7(H) 2.5 - 4.5 mg/dL [facility] Blood 01/20/2023 3:26 AM EDT 01/20/2023 3:42 AM EDT Narrative Resulting Agency Comment Spec In Lab Tanya Seaman MD CHEMISTRY ORDERABL ES Performing Organization Address [facility]/ZIP Co de Phone Number [facility] [place] [address] * Magnesium (01/20/2023 3:26 AM EDT) Pathologist [facility] Magnesium 0.95 0.69 - 1.07 mmol/L [facility] Blood 01/20/2023 3:26 AM EDT 01/20/2023 3:42 AM EDT Narrative Resulting Agency Comment Spec In Lab Tanya Seaman MD CHEMISTRY ORDERABL ES Performing Organization Address [facility] Co de Phone Number [facility] [place] [address] * (ABNORMAL) Basic Metabolic Panel (non-fasting) (01/20/2023 3:26 AM EDT) [facility] Glucose Lvl 109 65 - 199 mg/dL [facility] Comment:Diabetes: >=200 mg/d L plus symptoms BUN 67(H) 10 - 20 mg/dL [facility] Creatinine 5.79(H) 0.80 - 1.50 mg/dL [facility] Sodium 139 135 - 145 mmol/L [facility] Potassium 4.5 3.5 - 5.0 mmol/L [facility] Comment: Please note: ??Patients with WBC >100,000 may have falsely elevated Potassium levels. ??For accurate Potassium quantification in these patients send serum separator tube (gold top) for subsequent determinations. ??Contact the Clinical Chemistry Laboratory if there are any questions. Chloride 102 98 - 107 mmol/L [facility] CO2 20(L) 22 - 31 mmol/L [facility] Anion Gap 17(H) 5 - 15 mmol/L [facility] Calcium 8.8 8.5 - 10.5 mg/dL [facility] Estimated GFR 10(L) >=60 mL/min/1. 73 m?? [facility] Comment: This patient's estimated [...] MD CHEMISTRY ORDERABL ES Performing Organization Address [facility]/ZIP Co de Phone Number [facility] [place] [address] * (ABNORMAL) Ferritin (01/20/2023 3:26 AM EDT) Ferritin 478(H) 30 - 400 ng/mL [facility] Comment: Pediatric reference ranges not verified at [facility], interpret with caution. Reference ranges for females greater than 50 years of age approach values for men, i.e., 30-400 ng/mL. Blood 01/20/2023 3:26 AM EDT 01/20/2023 3:42 AM EDT Narrative Resulting Agency Comment Spec In Lab Sixto Morrow MD CHEMISTRY ORDERABLES Performing Organization Address City/[facility]/ZIP Co de Phone Number [facility] [place] [address] * (ABNORMAL) Iron and TIBC (01/20/2023 3:26 AM EDT) Iron 68 45 - 160 mcg/dL [facility] TIBC 229(L) 250 - 450 mcg/dL [facility] Iron Saturation 30 20 - 50 % [facility] Blood 01/20/2023 3:26 AM EDT 01/20/2023 3:42 AM EDT Narrative Resulting Agency Comment Spec In Lab Sixto Morrow MD CHEMISTRY ORDERABLES Performing Organization Address [facility]/ZIP Co de Phone Number [facility] [place] [address] * (ABNORMAL) PTH (01/20/2023 3:26 AM EDT) PTH 401(H) 15 - 65 pg/mL [facility] Blood 01/20/2023 3:26 AM EDT 01/20/2023 3:42 AM EDT Narrative Resulting Agency Comment Spec In Lab Sixto Morrow MD CHEMISTRY ORDERABLES Performing Organization Address [facility] Co de Phone Number [facility] [place] [address] * (ABNORMAL) Vitamin D, 25-Hydroxy (01/20/2023 3:26 AM EDT) 25-OH Vit D Total 9(L) 21 - 100 ng/mL [facility] 25-OH Vit D Interp Deficient [facility] Blood 01/20/2023 3:26 AM EDT 01/20/2023 3:42 AM EDT Narrative Resulting Agency Comment Spec In Lab Sixto Morrow MD CHEMISTRY ORDERABLES Performing Organization Address City/[facility]/ZIP Co de Phone Number [facility] [place] [address] * POCT Glucose (01/19/2023 9:33 PM EDT) POC Glucose 112 65 - 199 mg/dL [facility] Comment: Supplemental ranges: <140 mg/dL before meals <180 mg/dL all other times of the day Blood 01/19/2023 9:33 PM EDT 01/19/2023 9:33 PM EDT Chris Lim MD POINT OF CARE TEST O TESSA Performing Organization Address City/[facility]/ZIP Co de Phone Number [facility] [place] [address] * POCT Glucose (01/19/2023 4:37 PM EDT) POC Glucose 175 65 - 199 mg/dL [facility] Comment: Supplemental ranges: <140 mg/dL before meals <180 mg/dL all other times of the day Blood 01/19/2023 4:37 PM EDT 01/19/2023 4:37 PM EDT Chris Lim MD POINT OF CARE TEST O TESSA Performing Organization Address [facility] Co de Phone Number [facility] [place] [address] * (ABNORMAL) Basic Metabolic Panel (non-fasting) (01/19/2023 2:15 PM EDT) Glucose Lvl 206(H) 65 - 199 mg/dL [facility] Comment:Diabetes: >=200 mg/d L plus symptoms BUN 59(H) 10 - 20 mg/dL [facility] Creatinine 5.69(H) 0.80 - 1.50 mg/dL [facility] Sodium 140 135 - 145 mmol/L [facility] Potassium 4.4 3.5 - 5.0 mmol/L [facility] Comment: Please note: ??Patients with WBC >100,000 may have falsely elevated Potassium levels. ??For accurate Potassium quantification in these patients send serum separator tube (gold top) for subsequent determinations. ??Contact the Clinical Chemistry Laboratory if there are any questions. Chloride 102 98 - 107 mmol/L [facility] CO2 22 22 - 31 mmol/L [facility] Anion Gap 16(H) 5 - 15 mmol/L [facility] Calcium 9.3 8.5 - 10.5 mg/dL [facility] Estimated GFR 10(L) >=60 mL/min/1. 73 m?? [facility] Comment: This patient's estimated [...] MD CHEMISTRY ORDERABL ES Performing Organization Address [facility]/ZIP Co de Phone Number [facility] [place] [address] * POCT Glucose (01/19/2023 11:31 AM EDT) POC Glucose 96 65 - 199 mg/dL [facility] Comment: Supplemental ranges: <140 mg/dL before meals <180 mg/dL all other times of the day Blood 01/19/2023 11:3 1 AM EDT 01/19/2023 11:31 AM EDT Chris Lim MD POINT OF CARE TEST O RDERABLES Performing Organization Address [facility]/ZIP Co de Phone Number [facility] [place] [address] * (ABNORMAL) Basic Metabolic Panel (non-fasting) (01/19/2023 10:29 AM EDT) Glucose Lvl 87 65 - 199 mg/dL [facility] Comment:Diabetes: >=200 mg/d L plus symptoms BUN 60(H) 10 - 20 mg/dL [facility] Creatinine 5.63(H) 0.80 - 1.50 mg/dL [facility] Sodium 143 135 - 145 mmol/L [facility] Potassium 4.4 3.5 - 5.0 mmol/L [facility] Comment: Please note: ??Patients with WBC >100,000 may have falsely elevated Potassium levels. ??For accurate Potassium quantification in these patients send serum separator tube (gold top) for subsequent determinations. ??Contact the Clinical Chemistry Laboratory if there are any questions. Chloride 107 98 - 107 mmol/L [facility] CO2 21(L) 22 - 31 mmol/L [facility] Anion Gap 15 5 - 15 mmol/L [facility] Calcium 9.1 8.5 - 10.5 mg/dL [facility] Estimated GFR 10(L) >=60 mL/min/1. 73 m?? [facility] Comment: This patient's estimated [...] Lab Tanya Seaman MD CHEMISTRY ORDERABL ES [facility] [place] [address] * ECHO COMPLETE W CONTRAST (01/19/2023 8:59 AM EDT) Anatomical Region Laterality Modality Cardiac Other 01/19/2023 6:52 AM EDT Narrative 01/19/2023 11:43 AM EDT ? Echocardiogram Report Name: MIGUEL SANCHEZ ? Study Date: 01/19/2023 06:52 AMBP: 142/82 mmHg ? Patient Location: [id number] 0367 A : 1955 ? Height: 165 cm ? Account: [id number] Age: 67 yrs ? Weight: 110 kg Gender: Male ?BSA: 2.1 m2 Ordering Physician: TANYA SEAMAN Referring Physician: ELHAM DYKES Performed By: Cathleen Ware RDCS Reason For Study: Heart failure Interpreting Fellow: Martin Reyes. Exam Location: [facility]. Interpretation Summary Left ventricle is mildly dilated [...] ventricular systolic function has further decreased. Procedure Complete-[id number]. Satisfactory quality. Left Ventricle Left ventricle is [...] Date: 306:52 AMBP: 142/82 mmHg Patient Location: [address] : 1955 Height: 165 cm Account: [id number] Age: 67 yrs Weight: 110 kg Gender: Male BSA: 2.1 m2 Ordering Physician: TANYA SEAMAN Referring Physician: ELHAM DYKES Performed By: Cathleen Ware RDCS Reason For Study: Heart failure Interpreting Fellow: Martin Reyes. Exam Location: [facility]. Interpretation Summary Left ventricle is mildly dilated [...] left ventricular systolicfunction has further decreased. Procedure Complete-[id number]. Satisfactory quality. Left Ventricle Left ventricle is [...] who have questions, please contact the health pet care worker that requested your imaging first. ?Jimmie العراقي, Staff Physician Electronically Signed Final Report ?? 01/19/2023 08:47 am Narrative 01/19/2023 8:47 AM EDT Renal ? (Signed Final 01/19/2023 08:47 am) PATIENT INFO: ID #: ? [id number] ?: ??[birth year] (67 yrs)(M) Name: ? MIGUEL DANIEL ? Visit Date: 01/19/2023 08:27 am PERFORMED BY: Attending: ?Malcom OTT, Jimmie Perez Performed By: ? Kary Iqbal RDMS Referred By: ?TANYA SEAMAN Location: ? [place] SERVICE(S) PROVIDED: URETRO - Retroperitoneal Complete - [id number] ? [id number] INDICATIONS: New CLEM of unclear etiology RIGHT [...] 01/19/2023 08:47 am) PATIENT INFO: ID #: [id number] : [birth year] (67 yrs)(M) Name: MIGUEL SANCHEZ Visit Date: 01/19/2023 08:27 am PERFORMED BY: Attending: Jimmie العراقي MD Performed By: Kary Iqbal RDMS Referred By: TANYA SEAMAN Location: [place] SERVICE(S) PROVIDED: URETRO - Retroperitoneal Complete - [id number] INDICATIONS: New CLEM of unclear etiology RIGHT [...] who have questions, please contact the health pet care worker that requested your imaging first. Jimmie العراقي, Staff Physician Electronically Signed Final Report 01/19/2023 08:[address] [facility] GEN ORDERAB LES * POCT Glucose (01/19/2023 8:00 AM EDT) POC Glucose 92 65 - 199 mg/dL [facility] Comment: Supplemental ranges: <140 mg/dL before meals <180 mg/dL all other times of the day Blood 01/19/2023 8:00 AM EDT 01/19/2023 8:00 AM EDT Tanya Seaman MD POINT OF CARE TEST ORDERABLES [facility] [place] [address] * POCT Glucose (01/19/2023 7:42 AM EDT) POC Glucose 87 65 - 199 mg/dL [facility] Comment: Supplemental ranges: <140 mg/dL before meals <180 mg/dL all other times of the day Blood 01/19/2023 7:42 AM EDT 01/19/2023 7:42 AM EDT Tanya Seaman MD POINT OF CARE TEST ORDERABLES Performing Organization Address City/State/[facility] Co de Phone Number [facility] [place] [address] * (ABNORMAL) Basic Metabolic Panel (non-fasting) (01/19/2023 6:21 AM EDT) Glucose Lvl 80 65 - 199 mg/dL [facility] Comment:Diabetes: >=200 mg/d L plus symptoms BUN 58(H) 10 - 20 mg/dL [facility] Creatinine 5.52(H) 0.80 - 1.50 mg/dL [facility] Sodium 143 135 - 145 mmol/L [facility] Potassium 4.3 3.5 - 5.0 mmol/L [facility] Comment: Please note: ??Patients with WBC >100,000 may have falsely elevated Potassium levels. ??For accurate Potassium quantification in these patients send serum separator tube (gold top) for subsequent determinations. ??Contact the Clinical Chemistry Laboratory if there are any questions. Chloride 107 98 - 107 mmol/L [facility] CO2 21(L) 22 - 31 mmol/L [facility] Anion Gap 15 5 - 15 mmol/L [facility] Calcium 8.9 8.5 - 10.5 mg/dL [facility] Estimated GFR 11(L) >=60 mL/min/1. 73 m?? [facility] Comment: This patient's estimated [...] Lab Tanya Seaman MD CHEMISTRY ORDERABL ES [facility] [place] [address] * CK (01/19/2023 1:50 AM EDT) CK, Total 70 0 - 200 unit/L [facility] Blood Venous Draw / Unknown 01/19/2023 1:50 AM EDT 01/19/2023 1:55 AM EDT Narrative Resulting Agency Comment Spec In Lab Kyle Mckeon MD CHEMISTRY ORDERABLES [facility] [place] [address] * Differential, Automated (01/19/2023 1:50 AM EDT) Neutrophils % 73.8 % [facility] Neutr Abs (ANC) 5.75 1.70 - 6.10 x10(3)/[facility] Lymphocytes % 13.8 % [facility] Lymphocytes Abs 1.1 0.9 - 3.2 x10(3)/[facility] Monocytes % 8.5 % [facility] Monocyte Abs 0.7 0.3 - 0.9 x10(3)/[facility] Eosinophils % 3.0 % [facility] Eosinophils Abs 0.2 0.0 - 0.4 x10(3)/[facility] Basophils % 0.6 % [facility] Basophils Abs 0.0 0.0 - 0.1 x10(3)/[facility] Immature Gran % 0.30 % [facility] Comment: Immature granulocytes(IG's)percentage and absolute count will include metamyelocytes, myelocytes, and promyelocytes. Blood smears from CBCs yielding IG's will be scanned manually for concordance. If this scan disagrees with the automated IG or if promyelocytes are noted, a manual differential will be performed. Angelica Gran Abs 0.02 0.00 - 0.04 x10(3)/[facility] Blood 01/19/2023 1:50 AM EDT 01/19/2023 1:54 AM EDT Narrative Resulting Agency Comment Spec In Lab Kyle Mckeon MD HEMATOLOGY ORDERABLE S [facility] [place] [address] * (ABNORMAL) Hemogram (01/19/2023 1:50 AM EDT) WBC 7.8 4.0 - 9.5 x10(3)/[facility] RBC 3.25(L) 4.58 - 5.54 x10(6)/[facility] Hemoglobin 10.1(L) 13.7 - 16.5 g/dL [facility] Hematocrit 30.3(L) 40.5 - 48.5 % [facility] MCV 93.2(H) 82.9 - 93.1 fL [facility] MCH 31.1 27.5 - 32.1 pg [facility] MCHC 33.3 32.0 - 35.7 g/dL [facility] Platelets 173 145 - 357 x10(3)/[facility] RDWSD 44.6 36.0 - 45.0 fL [facility] RDWCV 13.0 11.4 - 13.8 % [facility] MPV 11.5 7.6 - 12.9 fL [facility] nRBC % Auto 0.0 % [facility] nRBC Abs Auto 0.000 0.000 - 0.000 x10(3)/mcL [facility] Blood 01/19/2023 1:50 AM EDT 01/19/2023 1:54 AM EDT Narrative Resulting Agency Comment Spec In Lab Kyle Mckeon MD HEMATOLOGY ORDERABLE S Performing Organization Address City/[facility]/ZIP Co de Phone Number [facility] [place] [address] * Phosphorus (01/19/2023 1:50 AM EDT) Phosphorus 4.3 2.5 - 4.5 mg/dL [facility] Blood 01/19/2023 1:50 AM EDT 01/19/2023 1:54 AM EDT Narrative Resulting Agency Comment Spec In Lab Tanya Seaman MD CHEMISTRY ORDERABL ES Performing Organization Address [facility] Co de Phone Number [facility] [place] [address] * Magnesium (01/19/2023 1:50 AM EDT) Magnesium 0.80 0.69 - 1.07 mmol/L [facility] Blood 01/19/2023 1:50 AM EDT 01/19/2023 1:54 AM EDT Narrative Resulting Agency Comment Spec In Lab Tanya Seaman MD CHEMISTRY ORDERABL ES Performing Organization Address [facility] Co de Phone Number [facility] [place] [address] * (ABNORMAL) Basic Metabolic Panel (non-fasting) (01/19/2023 1:50 AM EDT) Glucose Lvl 78 65 - 199 mg/dL [facility] Comment:Diabetes: >=200 mg/d L plus symptoms BUN 54(H) 10 - 20 mg/dL [facility] Creatinine 5.50(H) 0.80 - 1.50 mg/dL [facility] Sodium 143 135 - 145 mmol/L [facility] Potassium 4.3 3.5 - 5.0 mmol/L [facility] Comment: Please note: ??Patients with WBC >100,000 may have falsely elevated Potassium levels. ??For accurate Potassium quantification in these patients send serum separator tube (gold top) for subsequent determinations. ??Contact the Clinical Chemistry Laboratory if there are any questions. Chloride 107 98 - 107 mmol/L [facility] CO2 22 22 - 31 mmol/L [facility] Anion Gap 14 5 - 15 mmol/L [facility] Calcium 8.9 8.5 - 10.5 mg/dL [facility] Estimated GFR 11(L) >=60 mL/min/1. 73 m?? [facility] Comment: This patient's estimated [...] Lab Tanya Seaman MD CHEMISTRY ORDERABL ES [facility] [place] [address] * POCT Glucose (01/19/2023 1:46 AM EDT) [facility] POC Glucose 75 65 - 199 mg/dL [facility] Comment: Supplemental ranges: <140 mg/dL before meals <180 mg/dL all other times of the day Blood 01/19/2023 1:46 AM EDT 01/19/2023 1:46 AM EDT Tanya Seaman MD POINT OF CARE TEST ORDERABLES [facility] [place] [address] * (ABNORMAL) Blood Gas Venous ([facility]) (01/18/2023 10:20 PM EDT) [facility] pH William 7.37 7.32 - 7.42 [facility] pCO2 William 38(L) 41 - 51 mmHg [facility] pO2 William 30 25 - 40 mmHg [facility] HCO3 William 21.7 mmol/L [facility] BE William -3.7 mmol/L [facility] Hgb Blood Gas Not Perf 13.7 - 16.5 g/dL [facility] O2HB William Not Perf % [facility] COHB William Not Perf % [facility] Comment: Nonsmokers: 0.5-1.5% COHB Smokers: Variable, but usually less than 10% Toxic: 20-30% COHB Lethal: Greater than 60% COHB METHB William Not Perf <=1.5 % [facility] Na Whole Blood 140 135 - 145 mmol/L [facility] K Whole Blood 4.5 3.5 - 5.0 mmol/L [facility] Comment: Please note: Patients with WBC >100,000 may have falsely elevated Potassium levels. Contact the Clinical Chemistry Laboratory if there are any questions. ICa Whole Blood 1.14(L) 1.15 - 1.33 mmol/L [facility] Comment: Note: ??Total bilirubin higher than 20 mg/dL may lead to falsely low ionized calcium. CL Whole Blood 109(H) 98 - 107 mmol/L [facility] Gluc Whole Bld 73 65 - 199 mg/dL [facility] Comment:Diabetes: >=200 mg/d L plus symptoms Lactate WB 1.3 0.5 - 2.2 mmol/L [facility] BGas Source Venous [facility] Blood Venous Draw / Unknown 01/18/2023 10:20 PM EDT 01/18/2023 10:26 PM EDT Narrative Resulting Agency Comment Spec In Lab Kyle Mckeon MD CHEMISTRY ORDERABLES [facility] [place] [address] * (ABNORMAL) Basic Metabolic Panel (non-fasting) (01/18/2023 10:16 PM EDT) Glucose Lvl 74 65 - 199 mg/dL [facility] Comment:Diabetes: >=200 mg/d L plus symptoms BUN 60(H) 10 - 20 mg/dL [facility] Creatinine 5.81(H) 0.80 - 1.50 mg/dL [facility] Sodium 145 135 - 145 mmol/L [facility] Potassium 4.8 3.5 - 5.0 mmol/L [facility] Comment: Please note: ??Patients with WBC >100,000 may have falsely elevated Potassium levels. ??For accurate Potassium quantification in these patients send serum separator tube (gold top) for subsequent determinations. ??Contact the Clinical Chemistry Laboratory if there are any questions. Chloride 109(H) 98 - 107 mmol/L [facility] CO2 Not Perf [facility] Comment:Add-on request. Samp le too old to perform test. Anion Gap Unable to Calculate 5 - 15 mmol/L [facility] Calcium 9.2 8.5 - 10.5 mg/dL [facility] Estimated GFR 10(L) >=60 mL/min/1 .73 m?? [facility] Comment: This patient's estimated [...] In Lab Kyle Mckeon MD CHEMISTRY ORDERABLES [facility] [place] [address] * (ABNORMAL) Differential, Automated (01/18/2023 10:16 PM EDT) Neutrophils % 78.0 % [facility] Neutr Abs (ANC) 5.41 1.70 - 6.10 x10(3)/mc L [facility] Lymphocytes % 11.5 % [facility] Lymphocytes Abs 0.8(L) 0.9 - 3.2 x10(3)/mc L [facility] Monocytes % 6.6 % [facility] Monocyte Abs 0.5 0.3 - 0.9 x10(3)/mc L [facility] Eosinophils % 3.0 % [facility] Eosinophils Abs 0.2 0.0 - 0.4 x10(3)/mc L [facility] Basophils % 0.6 % [facility] Basophils Abs 0.0 0.0 - 0.1 x10(3)/mc L [facility] Immature Gran % 0.30 % [facility] Comment: Immature granulocytes(IG's)percentage and absolute count will include metamyelocytes, myelocytes, and promyelocytes. Blood smears from CBCs yielding IG's will be scanned manually for concordance. If this scan disagrees with the automated IG or if promyelocytes are noted, a manual differential will be performed. Angelica Gran Abs 0.02 0.00 - 0.04 x10(3)/mc L [facility] Blood 01/18/2023 10:1 6 PM EDT 01/18/2023 10:27 PM EDT Narrative Resulting Agency Comment Spec In Lab Kyle Mckeon MD HEMATOLOGY ORDERABLE S [facility] [place] [address] * (ABNORMAL) Hemogram (01/18/2023 10:16 PM EDT) WBC 6.9 4.0 - 9.5 x10(3)/[facility] RBC 3.30(L) 4.58 - 5.54 x10(6)/[facility] Hemoglobin 10.1(L) 13.7 - 16.5 g/dL [facility] Hematocrit 31.0(L) 40.5 - 48.5 % [facility] MCV 93.9(H) 82.9 - 93.1 [facility] MCH 30.6 27.5 - 32.1 pg [facility] MCHC 32.6 32.0 - 35.7 g/dL [facility] Platelets 196 145 - 357 x10(3)/[facility] RDWSD 44.9 36.0 - 45.0 [facility] RDWCV 13.1 11.4 - 13.8 % [facility] MPV 11.4 7.6 - 12.9 [facility] nRBC % Auto 0.0 % [facility] nRBC Abs Auto 0.000 0.000 - 0.000 x10(3)/mcL [facility] Blood 01/18/2023 10:1 6 PM EDT 01/18/2023 10:27 PM EDT Narrative Resulting Agency Comment Spec In Lab Kyle Mckeon MD HEMATOLOGY ORDERABLE S Performing Organization Address [facility]/ZIP Co de Phone Number [facility] [place] [address] * Salicylate (01/18/2023 10:16 PM EDT) Salicylate Lvl 3 mg/L [facility] Comment: Therapeutic Range: ??< 200 [...] MD CHEMISTRY ORDERABL ES Performing Organization Address [facility] de Phone Number [facility] [place] [address] * (ABNORMAL) Acetaminophen level (01/18/2023 10:16 PM EDT) Acetamin Lvl <5(L) 5 - 30 mg/L [facility] Comment: Levels >150 mg/L at 4 hours post ingestion are often an indication for N-Acetylcysteine. Blood 01/18/2023 10:1 6 PM EDT 01/18/2023 10:27 PM EDT Narrative Resulting Agency Comment Spec In Lab Tanya Seaman MD CHEMISTRY ORDERABL ES Performing Organization Address [facility] Co de Phone Number [facility] [place] [address] * Phosphorus (01/18/2023 10:16 PM EDT) Phosphorus 4.2 2.5 - 4.5 mg/dL [facility] Blood 01/18/2023 10:1 6 PM EDT 01/18/2023 10:27 PM EDT Narrative Resulting Agency Comment Spec In Lab Tanya Seaman MD CHEMISTRY ORDERABL ES Performing Organization Address [facility]/ZIP Co de Phone Number [facility] [place] [address] * Magnesium (01/18/2023 10:16 PM EDT) Magnesium 0.87 0.69 - 1.07 mmol/L [facility] Blood 01/18/2023 10:1 6 PM EDT 01/18/2023 10:27 PM EDT Narrative Resulting Agency Comment Spec In Lab Tanya Seaman MD CHEMISTRY ORDERABL ES Performing Organization Address [facility] Co de Phone Number [facility] [place] [address] * APTT (01/18/2023 10:16 PM EDT) PTT 35 25 - 37 sec [facility] Comment: The PTT is NOT appropriate for heparin monitoring. Use the Anti-Xa level for heparin monitoring (HEP UFH) or LMWH monitoring (HEP LMW). A PTT less than 37 seconds generally indicates adequate hemostasis. Blood 01/18/2023 10:1 6 PM EDT 01/18/2023 10:27 PM EDT Narrative Resulting Agency Comment Spec In Lab Tanya Seaman MD HEMATOLOGY ORDERAB LES Performing Organization Address [facility]/ZIP Co de Phone Number [facility] [place] [address] * (ABNORMAL) Prothrombin Time (01/18/2023 10:16 PM EDT) PT 14.3(H) 9.4 - 12.5 sec [facility] INR 1.3 [facility] Comment: An INR <2.0 [...] Lab Tanya Seaman MD HEMATOLOGY ORDERAB LES [facility] [place] [address] * (ABNORMAL) Hemoglobin A1c (01/18/2023 10:16 PM EDT) Hemoglobin A1C 5.7(H) 4.3 - 5.6 % [facility] Comment: Reference Range: 4.3 - [...] 1, S67-74 Est Avg Gluc 117 mg/dL [facility] Comment: eAG equivalents for HbA1c [...] into estimated average glucose values. ??Diabetes Care 2008:31(8):4209-0146. Blood 01/18/2023 10:1 6 PM EDT 01/18/2023 10:27 PM EDT Narrative Resulting Agency Comment Spec In Lab Tanya Seaman MD CHEMISTRY ORDERABL ES Performing Organization Address [facility] de Phone Number [facility] [place] [address] * TSH Fleming (01/18/2023 10:16 PM EDT) TSH 2.03 0.27 - 4.20 mcIU/mL [facility] Comment: Reference Interval (mcIU/mL): Females: ??First Trimester: 0.23-3.88 ??Second Trimester: 0.22-3.90 ??Third Trimester: 0.44-4.66 Blood 01/18/2023 10:1 6 PM EDT 01/18/2023 10:27 PM EDT Narrative Resulting Agency Comment Spec In Lab Tanya Seaman MD CHEMISTRY ORDERABL ES Performing Organization Address [facility] Co de Phone Number [facility] [place] [address] * LDL Cholesterol, Direct (01/18/2023 10:16 PM EDT) LDL Chol Direct 65 mg/dL [facility] Comment: Lowest Risk: <100 mg/dL Lower Risk: 100-129 mg/dL Borderline High Risk: 130-159 mg/dL High Risk: 160-189 mg/dL Very High Risk: >wf=161 mg/dL Blood 01/18/2023 10:1 6 PM EDT 01/18/2023 10:27 PM EDT Narrative Resulting Agency Comment Spec In Lab Tanya Seaman MD CHEMISTRY ORDERABL ES [facility] [place] [address] * HDL/Cholesterol Profile (01/18/2023 10:16 PM EDT) Chol, Total 122 mg/dL [facility] Comment: Lower Risk: <200 mg/dL Average Risk: 200-239 mg/dL Higher Risk: >wl=517 mg/dL HDL 27 mg/dL [facility] Comment: Males: ?? Higher Risk: <40 mg/dL Females: ?? Higher Risk: <50 mg/dL Chol/HDL Ratio 4.5 ratio [facility] Chol/HDL Interpretation See Note [facility] Comment: Lipid management should be guided by a patient? s ASCVD risk, goals and preferences. ACC/AHA Guidelines recommend high intensity statin if clinical ASCVD or LDL greater than or equal to 190 mg/dL. http://HEROZurl.com/UUA-HUY-Hoemjmnig Measure LDL if Total Cholesterol minus HDL Cholesterol is greater than 220 mg/dL. Adults aged 40-75 with LDL 70-189 mg/dL should have their 10 year ASCVD risk estimated with the ACC/AHA ASCVD risk mold blower http://tools.acc.org/LNZTA-Yeox-Tbvybqjmr/ Statin should be discussed if risk greater [...] MD CHEMISTRY ORDERABL ES Performing Organization Address City/[facility]/ZIP Co de Phone Number [facility] [place] [address] * (ABNORMAL) Troponin (01/18/2023 10:16 PM EDT) Troponin-T HS 78(H) <=22 ng/L [facility] Comment: This patient's [...] can be found in the [facility] Test Catalog Troponin - [facility] Test Catalog Reference: Fourth [place] Definition of Myocardial Infarction. Journal of the [employer] 2018;72:2960-7221 Blood 01/18/2023 10:1 6 PM EDT 01/18/2023 10:27 PM EDT Narrative Resulting Agency Comment Spec In Lab Tanya Seaman MD CHEMISTRY ORDERABL ES [facility] [place] [address] * (ABNORMAL) Protein/Creatinine Ratio, urine (01/18/2023 10:13 PM EDT) U Creatinine 41 mg/dL [facility] U Protein Ran 200(H) 0 - 12 mg/dL [facility] Prot/Cre Ratio 4.9 ratio [facility] Urine Urine / Unknown 01/18/2023 1 0:13 PM EDT 01/18/2023 10:29 PM EDT Narrative Resulting Agency Comment Spec In Lab Deonte Lugo MD URINE ORDERABLES Performing Organization Address [facility]/ZIP Co de Phone Number [facility] [place] [address] * Urine culture (01/18/2023 10:13 PM EDT) Urine Culture No growth (Less than 1,000 cfu/ml). [facility] Indwelling Catheter Urine 01/18/2023 10:13 PM EDT 01/18/2023 11:08 PM EDT Narrative Resulting Agency Comment Spec In Lab Kyle Mckeon MD MICROBIOLOGY - GENER AL ORDERABLES Performing Organization Address [facility]/ZIP Co de Phone Number [facility] [place] [address] * (ABNORMAL) Urinalysis Microscopic Exam (01/18/2023 10:13 PM EDT) RBC UA >100(H) 0 - 3 /HPF [facility] WBC UA 10(H) 0 - 3 /HPF [facility] Squam Epith UA 5(H) <=4 /HPF [facility] Hyaline Cast UA 2 0 - 2 /LPF [facility] Indwelling Catheter Urine 01/18/2023 10:13 PM EDT 01/18/2023 10:22 PM EDT Narrative Resulting Agency Comment Spec In Lab Kyle Mckeon MD URINE ORDERABLES [facility] [place] [address] * Rapid Drug Screen w/ Confirmation, Urine (01/18/2023 10:13 PM EDT) U Barbiturates Screen None Detected None Detected [facility] Comment: The barbiturate screen detects [...] U Benzodiazepines Screen None Detected None Detected [facility] Comment: The benzodiazepines screen detects [...] U Cocaine Screen None Detected None Detected [facility] Comment: The cocaine metabolites screen detects benzoylecgonine (Cocaine Metabolite) at concentrations >150 ng/mL. A ? Presumptive Positive? result indicates that the screening result was positive but has not yet been confirmed by a highly-specific method. As with any screen, occasional false positive results from cross-reacting substances may occur. Not for Medico-Legal Purposes. U Methadone Metabolites Screen None Detected None Detected [facility] Comment: The methadone metabolite screen detects EDDP (major methadone metabolite) at concentrations >100 ng/mL. A ? Presumptive Positive? result indicates that the screening result was positive but has not yet been confirmed by a highly-specific method. As with any screen, occasional false positive results from cross-reacting substances may occur. Not for Medico-Legal Purposes. U Opiate Screen None Detected None Detected [facility] Comment: The opiates screen detects [...] U Cannabinoid Screen None Detected None Detected [facility] Comment: The marijuana metabolites screen detects the THC metabolite (22-fxi-7-carboxy-delta 9-THC) at concentrations >20 ng/mL. A ? Presumptive Positive? result indicates that the screening result was positive but has not yet been confirmed by a highly-specific method. As with any screen, occasional false positive results from cross-reacting substances may occur. Not for Medico-Legal Purposes. U Oxycodone Screen None Detected None Detected [facility] Comment: The oxycodone screen detects oxycodone and oxymorphone at concentrations >100 ng/mL. A ? Presumptive Positive? result indicates that the screening result was positive but has not yet been confirmed by a highly-specific method. As with any screen, occasional false positive results from cross-reacting substances may occur. Not for Medico-Legal Purposes. U Buprenorphine Screen None Detected None Detected [facility] Comment: The buprenorphine screen detects [...] characteristics of this test were determined by [facility] in accordance with CLIA requirements. This laboratory is qualified under CLIA to perform high-complexity testing. U Fentanyl Screen None Detected None Detected [facility] Comment: The fentanyl screen detects [...] this test were determined by [facility] in accordance with CLIA requirements. This laboratory is qualified under CLIA to perform high-complexity testing. U Tricyclics Screen None Detected None Detected [facility] Comment: The tricyclics screen detects [...] characteristics of this test were determined by [facility] in accordance with CLIA requirements. This laboratory is qualified under CLIA to perform high-complexity testing. U Ethanol Screen None Detected None Detected [facility] Comment:This urine ethanol a ssay detects ethanol at concentrations >/= 100 mg/L. U Amphetamines Screen None Detected None Detected [facility] Comment: The amphetamine screen detects d-amphetamine and d-methamphetamine at concentrations >300 ng/mL. A ? Presumptive Positive? result indicates that the screening result was positive but has not yet been confirmed by a highly-specific method. As with any screen, occasional false positive results from cross-reacting substances may occur. Not for Medico-Legal Purposes. U Creat HEATHER 42 >=20 mg/dL [facility] U Chromate HEATHER <2.0 <=49.9 mg/L [facility] U Nitrite HEATHER <50 <=499 mg/L [facility] U Oxidant HEATHER 6 <=199 mg/L [facility] U pH HEATHER 6.0 3.0 - 10.9 [facility] U Adulterants Screen None Detected None Detected [facility] Comment:No adulteration of t his urine sample was detected. Urine 01/18/2023 10:1 3 PM EDT 01/18/2023 10:22 PM EDT Narrative Resulting Agency Comment Spec In Lab Kyle Mckeon MD CHEMISTRY ORDERABLES Performing Organization Address [facility] Co de Phone Number [facility] [place] [address] * Rapid Drug Screen, Urine (HEATHER Request) (01/18/2023 10:13 PM EDT) HEATHER Conf Requested Yes [facility] HEATHER Requested See Comment [facility] Comment:Refer to Rapid Drug Screen w/ Confirmation, Urine for results. Urine 01/18/2023 10:1 3 PM EDT 01/18/2023 10:22 PM EDT Narrative Resulting Agency Comment Spec In Lab Tanya Seaman MD URINE ORDERABLES Performing Organization Address [facility] Co de Phone Number [facility] [place] [address] * Creatinine, urine, random (01/18/2023 10:13 PM EDT) U Creatinine 41 mg/dL [facility] Urine 01/18/2023 10:1 3 PM EDT 01/18/2023 10:22 PM EDT Narrative Resulting Agency Comment Spec In Lab Tanya Seaman MD URINE ORDERABLES Performing Organization Address [facility] Co de Phone Number [facility] [place] [address] * Urea nitrogen, urine, random (01/18/2023 10:13 PM EDT) U Urea Nitrogen 251 mg/dL [facility] Urine 01/18/2023 10:1 3 PM EDT 01/18/2023 10:22 PM EDT Narrative Resulting Agency Comment Spec In Lab Tanya Seaman MD URINE ORDERABLES [facility] [place] [address] * (ABNORMAL) Urinalysis with reflex Culture (01/18/2023 10:13 PM EDT) Glucose UA Negative Negative mg/dL [facility] Protein UA >=300(A) Negative mg/dL [facility] Bilirubin UA Negative Negative mg/dL [facility] Comment: Clinical correlation required for positive Urine Bilirubin results as false positive may occur with some drugs and drug related products. If a false positive is suspected a serum total bilirubin should be considered if clinically indicated. Urobilinogen UA Normal Normal mg/dL [facility] pH UA 6.5 5.0 - 8.0 [facility] Blood UA Large(A) Negative mg/dL [facility] Ketones UA Negative Negative mg/dL [facility] Nitrite UA Negative Negative [facility] Leukocytes UA Small(A) Negative [facility] Appearance UA Cloudy(A) Clear [facility] Spec [place] UA 1.010 1.005 - 1.030 [facility] Color UA Red(A) Yellow [facility] Culture Reflexed Yes [facility] Indwelling Catheter Urine 01/18/2023 10:13 PM EDT 01/18/2023 10:22 PM EDT Narrative Resulting Agency Comment Spec In Lab Tanya Seaman MD URINE ORDERABLES Performing Organization Address City/[facility]/ZIP Co de Phone Number [facility] [place] [address] * Lactate, whole blood, send to lab ([facility]) (01/18/2023 7:46 PM EDT) Lactate WB 1.6 0.5 - 2.2 mmol/L [facility] Blood 01/18/2023 7:46 PM EDT 01/18/2023 7:51 PM EDT Narrative Resulting Agency Comment Spec In Lab Tanya Seaman MD CHEMISTRY ORDERABL ES [facility] [place] [address] * (ABNORMAL) Differential, Automated (01/18/2023 7:16 PM EDT) Neutrophils % 80.9 % [facility] Neutr Abs (ANC) 5.86 1.70 - 6.10 x10(3)/mc L [facility] Lymphocytes % 9.7 % [facility] Lymphocytes Abs 0.7(L) 0.9 - 3.2 x10(3)/mc L [facility] Monocytes % 5.9 % [facility] Monocyte Abs 0.4 0.3 - 0.9 x10(3)/mc L [facility] Eosinophils % 2.6 % [facility] Eosinophils Abs 0.2 0.0 - 0.4 x10(3)/mc L [facility] Basophils % 0.6 % [facility] Basophils Abs 0.0 0.0 - 0.1 x10(3)/mc L [facility] Immature Gran % 0.30 % [facility] Comment: Immature granulocytes(IG's)percentage and absolute count will include metamyelocytes, myelocytes, and promyelocytes. Blood smears from CBCs yielding IG's will be scanned manually for concordance. If this scan disagrees with the automated IG or if promyelocytes are noted, a manual differential will be performed. Angelica Gran Abs 0.02 0.00 - 0.04 x10(3)/mc L [facility] Blood 01/18/2023 7:16 PM EDT 01/18/2023 7:27 PM EDT Narrative Resulting Agency Comment Spec In Lab Kyle Mckeon MD HEMATOLOGY ORDERABLE S [facility] [place] [address] * (ABNORMAL) Hemogram (01/18/2023 7:16 PM EDT) WBC 7.2 4.0 - 9.5 x10(3)/[facility] RBC 3.24(L) 4.58 - 5.54 x10(6)/[facility] Hemoglobin 10.1(L) 13.7 - 16.5 g/dL [facility] Hematocrit 30.1(L) 40.5 - 48.5 % [facility] MCV 92.9 82.9 - 93.1 fL [facility] MCH 31.2 27.5 - 32.1 pg [facility] MCHC 33.6 32.0 - 35.7 g/dL [facility] Platelets 183 145 - 357 x10(3)/[facility] RDWSD 44.4 36.0 - 45.0 [facility] RDWCV 13.2 11.4 - 13.8 % [facility] MPV 11.9 7.6 - 12.9 [facility] nRBC % Auto 0.0 % [facility] nRBC Abs Auto 0.000 0.000 - 0.000 x10(3)/[facility] Blood 01/18/2023 7:16 PM EDT 01/18/2023 7:27 PM EDT Narrative Resulting Agency Comment Spec In Lab Kyle Mckeon MD HEMATOLOGY ORDERABLE S [facility] [place] [address] * (ABNORMAL) pro-Brain Natriuretic Peptide (01/18/2023 7:16 PM EDT) ProBNP 11,818(H) <=124 pg/mL [facility] Blood 01/18/2023 7:16 PM EDT 01/18/2023 7:27 PM EDT Narrative Resulting Agency Comment Spec In Lab Tanya Seaman MD CHEMISTRY ORDERABL ES [facility] [place] [address] * (ABNORMAL) Troponin (01/18/2023 7:16 PM EDT) Troponin-T HS 78(H) <=22 ng/L [facility] Comment: This patient's [...] can be found in the [facility] Test Catalog Troponin - [facility] Test Catalog Reference: Fourth [place] Definition of Myocardial Infarction. Journal of the [employer] 2018;72:2479-4603 Blood 01/18/2023 7:16 PM EDT 01/18/2023 7:27 PM EDT Narrative Resulting Agency Comment Spec In Lab Tanya Seaman MD CHEMISTRY ORDERABL ES [facility] [place] [address] * (ABNORMAL) Comprehensive metabolic panel (non-fasting) (01/18/2023 7:16 PM EDT) Glucose Lvl 76 65 - 199 mg/dL [facility] Comment:Diabetes: >=200 mg/d L plus symptoms BUN 60(H) 10 - 20 mg/dL [facility] Creatinine 5.71(H) 0.80 - 1.50 mg/dL [facility] Sodium 144 135 - 145 mmol/L [facility] Potassium 4.6 3.5 - 5.0 mmol/L [facility] Comment: Please note: ??Patients with WBC >100,000 may have falsely elevated Potassium levels. ??For accurate Potassium quantification in these patients send serum separator tube (gold top) for subsequent determinations. ??Contact the Clinical Chemistry Laboratory if there are any questions. Chloride 109(H) 98 - 107 mmol/L [facility] CO2 21(L) 22 - 31 mmol/L [facility] Anion Gap 14 5 - 15 mmol/L [facility] Calcium 9.3 8.5 - 10.5 mg/dL [facility] Total Protein 7.2 6.1 - 8.0 g/dL [facility] Albumin 4.2 3.2 - 5.2 g/dL [facility] AST 12 0 - 39 unit/L [facility] ALT 12 0 - 55 unit/L [facility] Alk Phos 95 40 - 130 unit/L [facility] Total Bilirubin 0.7 0.2 - 1.3 mg/dL [facility] Estimated GFR 10(L) >=60 mL/min/1. 73 m?? [facility] Comment: This patient's estimated [...] MD CHEMISTRY ORDERABL ES Performing Organization Address [facility] Co de Phone Number [facility] [place] [address] * EKG 12 Lead (01/18/2023 6:52 PM EDT) Ventricular rate 69 BPM MUSE SYSTEM Atrial Rate 69 BPM MUSE SYSTEM P-R Interval 212 ms MUSE SYSTEM QRS Duration 126 ms MUSE SYSTEM Q-T Interval 432 ms MUSE SYSTEM QTC Calculated (Bezet) 462 ms MUSE SYSTEM Calculated P [place] 46 degrees MUSE SYSTEM Calculated R [place] -37 degrees MUSE SYSTEM Calculated T [place] 101 degrees MUSE SYSTEM INTERPRETATION Sinus rhythm with 1st degree A-V block Left axis deviation Non-specific intra-ventricul ar conduction block Possible Lateral infarct , age undetermined Abnormal ECG No previous ECGs available Confirmed by Tessa Saldivar ([id number]) on 01/19/2023 9:21:20 AM MUSE SYSTEM 01/18/2023 6:52 PM EDT 01/19/2023 9:21 AM EDT Tanya Seaman MD ECG ORDERABLES Performing Organization Address City/[facility]/ZIP Co de Phone Number MUSE SYSTEM documented [...] Discontinued, Routine 1741 (Given - Provider: Morena Lopez, LELAND) 1826 (Given - Provider: Morena Lopez, LELAND) capsaicin (Zostrix) 0.025 % cream Topical (Top), 2 TIMES DAILY, First dose on Wed01/20/23 at 2330, Until Discontinued 0835 (Given - Provider: Morena Lopez, LELAND)2100 (Not Given - Provider: Adrienne Calderon RN [...] equivalent to 1 mcg of cholecalciferol., Routine 08 (Given - Provider: Morena Lopez RN) 08 (Given - Provider: Morena Lopez RN) 09 (Given - Provider: Sixto Amato, RN) finasteride (Proscar) tablet 5 mg 5 mg, Oral, DAILY, First dose on Wed01/20/23 at 1230, Until Discontinued, DO NOT SPLIT, CRUSH OR OPEN, Routine 08 (Given - Provider: Morena Lopez, LELAND) 08 (Given - Provider: Morena Lopez, LELAND) 09 (Given - Provider: Sixto Amato, RN) gabapentin (Neurontin) capsule 100 mg 100 mg, Oral, 2 TIMES DAILY, First dose on Wed01/19/23 at 1645, Until Discontinued, Routine 08 (Given - Provider: Morena Lopez RN)2119 (Given - Provider: Adrienne Calderon RN) 827 (Given - Provider: Morena Lopez RN)2101 (Given - Provider: Lisa Vasquez RN) 09 (Given - Provider: Sixto Amato, LELAND) heparin (porcine) (5,000 units/1 mL) subcutaneous injection [...] not met) 0908 (Given - Provider: Sixto Amato RN)1130 (Not Given - Provider: Sixto Amato RN [...] on Wed01/18/23 at 2130, Until Discontinued, Routine 0900 (Not Given - Provider: Morena Lopez [...] CHEW, Routine 1139 (Given - Provider: Morena Lopez RN) tamsulosin (Flomax) capsule 0.8 mg 0.8 mg, [...] Wed01/18/23 at 2041, Until Wed01/27/23 at 182, For BG 50-70 mg/dL: Oral treatment preferred: [...] on Wed01/18/23 at 2034, Until Wed01/27/23 at 1826, for discomfort with PIV insertion, Routine nitroGLYcerin (Nitrostat) disintegrating tablet 0.4 mg 0.4 mg, Sublingual, EVERY 5 MIN PRN, Starting on Wed01/18/23 at 2034, Until Wed01/27/23 at 1826, Chest pain, May repeat every 5 minutes [...] Intramuscular, EVERY 30 MIN PRN, Starting on 01/18/23 at 2042, Until Wed01/27/23 at 1827, Low [...] Routine documented in this encounter Care Teams Cutting Department Supervisor Relationship Specialty Start Date End Date Reinier Arceo PA [address] [place] [address] PCP - General Internal Medicine 01/18/23 documented as of this encounter
--- OUTSIDE RECORDS SUMMARY | 2024-01-27 16:32 | XMS_ITS | Encounter Summary ---
Author Organization [facility] [place] [address] Care Team Providers Care Mc Kay Machine Operator Name Role Phone Reina Alcala APRN Primary Care Provider [phone] Reason for Visit * Reason Comments Psoriasis Encounter Details Date Type Department Care Team (Late st Contact Info) Description 10/09/2014 1:15 PM EDT Office Visit Dermatology at [address] [place] [address] Sixto Doty MD [address] [facility] [place] [address] Neurodermatitis Discharge Disposition: Home Social History Tobacco [...] from the original note were not included. [facility] Psoriasis: After Your Visit Your Care Instructions Psoriasis (say ivq-DB-bv-ruel) is a long-term skin problem that causes [...] still damp. This seals in moisture. Use elck-pve-shcytld products that your doctor suggests. These may [...] more? Visit our health information library at [email or web address] You can also view health information on [employer], your personal patient account. Log in or sign up today. Enter [id number] in the search box to learn more about Psoriasis: After Your Visit. ?? [phone] [employer]. Care instructions adapted under license by [facility]. This care instruction is for use with your licensed healthcare professional. If you have questions about a medical condition or this instruction, always ask your healthcare professional. [employer] disclaims any warranty or liability for your use of this information. Content Version: [id number]; Current as of: September 06, 2013 documented [...] 10:00 AM EDT Procedure [place] [address] Austin Simon MD [facility] [place] [address] Lindy Box APRN [facility] [place] [address] documented as of this encounter Visit Diagnoses Diagnosis Neurodermatitis Lichenification and lichen simplex chronicus documented in this encounter Care Teams Mc Kay Machine Operator Relationship Specialty Start Date End Date Reina Alcala APRN [address] [place] [address] [place] [address] PCP - General 04/18/14 01/17/23 documented as of this encounter
--- OUTSIDE RECORDS SUMMARY | 2024-01-27 16:32 | XMS_ITS | Encounter Summary ---
Author Organization [facility] [place] [address] Care Team Providers Care Compliance Review Specialist Name Role Phone Reinier Arceo Primary Care Provider [phone] Reason for Visit * Auth/Cert (Routine) Specialty Diagnoses / Procedures Referred By Fady t Referred To Contact Diagnoses Heart failure CHF w/ CLEM Procedures EMERGENCY FERI Tanya Seaman MD [facility] [place] [place] [address] [facility] Referral ID Status Reason Start Date Expiration Date Visits Re quested Visits Authorized [id number] 1 1 Encounter Details Date Type Department Care Team (Late st Contact Info) Description 01/22/2023 1:00 PM EDT - 01/22/2023 2:00 PM EDT Surgery [place] [address] Layton Morris MD [facility] [place] [place] [address] CARDIAC CATHETERIZATION Social History Tobacco Use Types [...] 2020), diabetes, hypertension,and hyperlipidemia who presents from [facility] after being redirected from [facility] for one month of [...] getting progressively worse he went to the [facility] urgent clinic in [place], [place] and was subsequently transferred to [facility] for further management. Upon initial presentation to [facility]: The patient was noted to be [...] reportedly 40 mg PO) and transferred to [facility] for management of presumed acute on chronic HFrEF and CLEM. Upon direct admission to [facility]: The patient was noted to be afebrile [...] Patient was started on GDMT with metoprolol edaobtdsr87 mg daily and losartan 25 mg daily. [...] he does have capacity. Spoke with his casework specialist Randa Gonzalez prior to discharge who was [...] Time Provider Department Center 01/28/2023 1:00 PM [facility] ROOM 4 [facility] Rad Your Inpatient Doctor: Mendel Luna MD Your Primary Care Provider: ELSIE Espinoza [phone] For questions regarding this document or issues relating to this hospitalization on the Medical Service, please contact your inpatient physician through the [facility] Transport [employer] . Issues afterhours and on weekends will be handled by the Hospitalist staff on-call. General Instructions None Future Appointments and Orders Future Appointments and Orders Future Appointments Provider Department Dept Phone 01/28/2023 1:00 PM [facility] US ROOM 4 Ultrasound at [facility] Arrive at: Retail Salesman Area [phone] Please bring someone to drive you home. [...] Sanchez for admission to Home Health. [address] [address] Phone Number: [phone] (home) Date of : 1955 Inpatient DOCUMENTATION FOR VNA SERVICES (INCLUDING THOSE PATIENTS WITH MEDICARE COVERAGE REQUIRING HOME VNA SERVICES AND/OR HOSPICE SERVICES) PATIENT'S LOCATION: Miguel Sanchez [address] [address] [phone] (home) Cell: Telephone Information: Hand Tool Lapper's Name: self In discussion with the attending physician, it is certified that this patient is under their care and that they, or a Nurse Practitioner, Clinical Nurse specialist or Physician Price Clerk who is working directly with them, had [...] manage benedict catheter HOME HEALTH CARE AGENCY: [facility]. [address] [place] [address] Start of care: 24-48 hours after discharge [...] patient's PCP: ELSIE Espinoza DR [address] / [facility] [address] . All VNA agencies which cover the area of patient's residence have been reviewed, either verbally or in writing, and patient/family have chosen the home health care agency noted. Questions: Disciplines Requested: Nursing Referral to Urology [AOR282 Custom] As directed Process Instructions: If no progress note charted, please enter Clinical details in comments. Scheduling Instructions: Questions: My question or request is: 67 yo M admitted 01/18-01/26 w/ renal failure due to obstruction, discharged w/ beendict. Provider Contact Information: ELSIE Espinoza [address] / [facility] [address] Discharge References/Attachments: Discharge References/Attachments None documented in [...] Time Provider Department Center 01/28/2023 1:00 PM [facility] ROOM 4 [facility] Rad Your PCP office will contact you about scheduling follow up. Your Inpatient Doctor: Mendel Luna MD Your Primary Care Provider: ELSIE Espinoza [phone] For questions regarding this document or issues relating to this hospitalization on the Medical Service, please contact your inpatient physician through the [facility] [employer] . Issues afterhours and on weekends will be handled by the Hospitalist staff on-call. * Attachments The following attachments cannot be sent through Care Everywhere. * Caregiver: Caring for an Indwelling Urinary Catheter: General Info (Bhutanese) documented in this encounter Medications at Time [...] discharge to home with a ride from [facility]. * Tati Schultz - 01/27/2023 3:43 PM EDTSummary: Transportation Transportation for discharge was scheduled and confirmed through [facility]. [facility] will have a wrecking car driver at the Main Entrance at 4:15p today to provide patient with transportation home. * Camille Shelley RD - 01/27/2023 12:42 PM EDT Nutrition Progress Note Miguel Sanchez is a 67 y.o. male with PMH significant for HFrEF (last known EF 45% in 2020), diabetes, hypertension, and hyperlipidemia who presents from [facility] after being redirected from [facility] for one month of [...] Marii Serrano - 01/27/2023 11:42 AM EDT Rn Relief Charge Encounter Note Patient Name: Miguel Sanchez : [id number] MR#: [id number] Admit Date: 01/18/2023 5:25 PM Hospital Day [...] AM EDT Hypertension-Nephrology Inpatient Follow-up Miguel Sanchez [id number] 1955 ID: 67 y.o. old male seen [...] SPEP shows possible paraprotein however DOROTEO negative. [place] & Lambda light chains elevated however ratio [...] TID This case was discussed with staff gang plank workman Dr. Crawford and the primary team. Please contact me at phone: [phone] or pager: [phone] with any questions. Deonte Lugo MD Nephrology [...] Marii Serrano - 01/26/2023 3:59 PM EDT Rn Relief Charge Encounter Note Patient Name: Miguel Sanchez DOB: [id number] MR#: [id number] Admit Date: 01/18/2023 5:25 PM Hospital Day [...] 1955 PCP: ELSIE Espinoza PCP phone number: [phone] Date of Admission: 01/18/2023 ( Hospital Day 8 days ) Attending:Mendel Luna MD ID: Miguel Sanchez is a 67 y.o. male with PMH significant for HFrEF (last known EF 45% in 2020), diabetes, hypertension, and hyperlipidemia who presents from [facility] after being redirected from [facility] for one month of [...] Gas) No results found for: PHART, PO2ART, [id number], ZKR2PSX Microbiology: Microbiology Results (Last 30 days) Procedure Component Value Units Date/Time Urine culture [[id number]] Collected: 01/18/232212 Lab Status: Final result Specimen: [...] bladder.. Electronically signed by: Jimmie العراقي MD, [facility] ([phone]), at 01/19/2023 8:39 AM Thank you for letting us participate in the care of this patient. If you are a health care provider and have any questions regarding this report, please contact the number above. For patients who have questions, please contact the health nurse behavioral health care that requested your imaging first. Jimmie [...] place. Electronically signed by: Elsie Garza MD, [facility] ([phone]), at 01/25/2023 4:02 PM Thank you for letting us participate in the care of this patient. If you are a health care provider and have any questions regarding this report, please contact the number above. For patients who have questions, please contact the health nurse behavioral health care that requested your imaging first. Elsie Garza, [facility] Vehicle [employer] Converter Electronically Signed Final Report 01/25/2023 04:10 pm [...] diabetes, hypertension, and hyperlipidemia who presents from [facility] after being redirected from [facility] for one month of [...] PPx: Diet: Daily Healthy Menu Choices/Cardiac diet ([facility]) Lines: Peripheral IV Line - Single Lumen [...] Yousif MSW - 01/26/2023 2:43 PM EDT STAMP ANALYST received a consult to support patient regarding concern of not getting his rent paid on time, which is typically due on the 1st of every month. STAMP ANALYST called patient's property management company, [employer], and spoke to one of the legal receptionist's, Meri, who stated they have a crow period forpaying rent late and are flexible with this kind of stuff. Meri also mentioned patient had spoken with one of her colleagues recently and asked if they could drive down to the hospital to grabthe check. STAMP ANALYST checked with patient to see if he has the check, to which he responded no. Patient to be discharged tomorrow. * Deonte Lugo MD - 01/26/2023 7:51 AM EDT Hypertension-Nephrology Inpatient Follow-up Miguel Sanchez [id number] 1955 ID: 67 y.o. old male seen [...] SPEP shows possible paraprotein however DOROTEO negative. [place] & Lambda light chains elevated however ratio [...] daily This case was discussed with staff gang plank workman Dr. Crawford and the primary team. Please contact me at phone: [phone] or pager: [phone] with any questions. Deonte Lugo MD Nephrology [...] AM EDT Hypertension-Nephrology Inpatient Follow-up Miguel Sanchez [id number] 1955 ID: 67 y.o. old male seen [...] SPEP shows possible paraprotein however DOROTEO negative. [place] & Lambda light chains elevated however ratio [...] daily This case was discussed with staff gang plank workman Dr. Crawford. Please contact me at phone: [phone] or pager: [phone] with any questions. Deonte Lugo MD Nephrology [...] 1955 PCP: ELSIE Espinoza PCP phone number: [phone] Date of Admission: 01/18/2023 ( Hospital Day 7 days ) Attending:Mendel Luna MD ID: Miguel Sanchez is a 67 y.o. male with PMH significant for HFrEF (last known EF 45% in 2020), diabetes, hypertension, and hyperlipidemia who presents from [facility] after being redirected from [facility] for one month of [...] Gas) No results found for: PHART, PO2ART, LCC4NUE, SJC2EKX Microbiology: Microbiology Results (Last 30 days) Procedure Component Value Units Date/Time Urine culture [[id number]] Collected: 01/18/232212 Lab Status: Final result Specimen: [...] bladder.. Electronically signed by: Jimmie العراقي MD, [facility] ([phone]), at 01/19/2023 8:39 AM Thank you for letting us participate in the care of this patient. If you are a health care provider and have any questions regarding this report, please contact the number above. For patients who have questions, please contact the health nurse behavioral health care that requested your imaging first. Jimmie [...] diabetes, hypertension, and hyperlipidemia who presents from [facility] after being redirected from [facility] for one month of [...] AM EDT Hypertension-Nephrology Inpatient Follow-up Miguel Sanchez [id number] 1955 ID: 67 y.o. old male seen for CLEM. Interval History: Diuretics held again yesterday however continues to auto diurese. He clarified his living situationfor us and explains that he lives independently in low income housing and depends on rides to get to clinic appointments etc which is not always available. He follows very closely with a mental health clinic and has a long term care social worker there who helps him. Physical Examination: Last [...] negative. SPEP shows possible paraprotein DOROTEO pending. [place] & Lambda light chains elevated however ratio [...] and from clinic visits and has a long term care social worker whogenerally helps him with this. This is [...] deficiency. This case was discussed with staff gang plank workman Dr. Morrow. Please contact me at phone: [phone] or pager: [phone] with any questions. Deonte Lugo MD Nephrology [...] He does report having a mental health oncology consultant who may be of some assistance when discharge planning comes to play. * Kendy Montes MD - 01/24/2023 6:39 AM EDT Images from the original note were not included. Cardiology Progress Note Patient info: Name: Miguel Sanchez : 1955 PCP: ELSIE Espinoza PCP phone number: [phone] Date of Admission: 01/18/2023 ( Hospital Day 6 days ) Attending:Mendel Luna MD ID: Miguel Sanchez is a 67 y.o. male with PMH significant for HFrEF (last known EF 45% in 2019), diabetes, hypertension, and hyperlipidemia who presents from [facility] after being redirected from [facility] for one month of [...] Gas) No results found for: PHART, PO2ART, SWC4EOZ, HES0PQC Microbiology: Microbiology Results (Last 30 days) Procedure Component Value Units Date/Time Urine culture [[id number]] Collected: 01/18/232212 Lab Status: Final result Specimen: [...] bladder.. Electronically signed by: Jimmie العراقي MD, [facility] ([phone]), at 01/19/2023 8:39 AM Thank you for letting us participate in the care of this patient. If you are a health care provider and have any questions regarding this report, please contact the number above. For patients who have questions, please contact the health nurse behavioral health care that requested your imaging first. Jimmie [...] diabetes, hypertension, and hyperlipidemia who presents from [facility] after being redirected from [facility] for one month of [...] AM EDT Hypertension-Nephrology Inpatient Follow-up Miguel Sanchez [id number] 1955 ID: 67 y.o. old male seen [...] negative. SPEP shows possible paraprotein DOROTEO pending. [place] & Lambda light chains elevated however ratio [...] and voiding trial - Please start ergocalciferol [id number] U weekly This case was discussed with staff gang plank workman Dr. Morrow. Please contact me at phone: [phone] or pager: [phone] with any questions. Deonte Lugo MD Nephrology [...] 1955 PCP: ELSIE Espinoza PCP phone number: [phone] Date of Admission: 01/18/2023 ( Hospital Day 5 days ) Attending:Mendel Luna MD ID: Miguel Sanchez is a 67 y.o. male with PMH significant for HFrEF (last known EF 45% in 2019), diabetes, hypertension, and hyperlipidemia who presents from [facility] after being redirected from [facility] for one month of [...] Gas) No results found for: PHART, PO2ART, HNV7JPN, LHF5OXA Microbiology: Microbiology Results (Last 30 days) Procedure Component Value Units Date/Time Urine culture [[id number]] Collected: 01/18/232212 Lab Status: Final result Specimen: [...] bladder.. Electronically signed by: Jimmie العراقي MD, [facility] ([phone]), at 01/19/2023 8:39 AM Thank you for letting us participate in the care of this patient. If you are a health care provider and have any questions regarding this report, please contact the number above. For patients who have questions, please contact the health nurse behavioral health care that requested your imaging first. Jimmie [...] diabetes, hypertension, and hyperlipidemia who presents from [facility] after being redirected from [facility] for one month of [...] diabetes, hypertension, and hyperlipidemia who presents from [facility] after being redirected from [facility] for one month of [...] diabetes, hypertension, and hyperlipidemia who presents from [facility] after being redirected from [facility] for one month of [...] transportation for shopping and errands and his casework specialist visits once a week. Pt does not [...] Consistently following commands ADL: Assist needed to don/[facility] gown d/t lines Toileting: provided pt [...] Therapy: 30 (SCHM x 2; 9:56-10:26) Pager: [phone] Sushma Hernandez OT Occupational Therapy Rehabilitation Department * Deonte Lugo MD - 01/22/2023 7:46 AM EDT Hypertension-Nephrology Inpatient Follow-up Miguel Sanchez [id number] 1955 ID: 67 y.o. old male seen [...] negative. SPEP shows possible paraprotein DOROTEO pending. [place] & Lambda light chains elevated however ratio [...] primaryteam. This case was discussed with staff gang plank workman Dr. Morrow. Please contact me at phone: [phone] or pager: [phone] with any questions. Deonte Lugo MD Nephrology [...] 1955 PCP: ELSIE Espinoza PCP phone number: [phone] Date of Admission: 01/18/2023 ( Hospital Day 4 days ) Attending:Mendel Luna MD ID: Miguel Sanchez is a 67 y.o. male with PMH significant for HFrEF (last known EF 45% in 2019), diabetes, hypertension, and hyperlipidemia who presents from [facility] after being redirected from [facility] for one month of progressively worsening shortness of breath and associated chest pain occurring both at rest and on exertion with concern for HFrEF exacerbation and CLEM. Active Problems: Active Hospital Problems Diagnosis Heart failure Resolved Hospital Problems No resolved problems to display. 24 Hour and Subjective: Yesterday: -Holding diuresis. Was going to [facility] but got bumped so plan [...] Gas) No results found for: PHART, PO2ART, JHS4GIF, AEK4FAC Microbiology: Microbiology Results (Last 30 days) Procedure Component Value Units Date/Time Urine culture [[id number]] Collected: 01/18/232212 Lab Status: Final result Specimen: [...] bladder.. Electronically signed by: Jimmie العراقي MD, [facility] ([phone]), at 01/19/2023 8:39 AM Thank you for letting us participate in the care of this patient. If you are a health care provider and have any questions regarding this report, please contact the number above. For patients who have questions, please contact the health nurse behavioral health care that requested your imaging first. Jimmie [...] diabetes, hypertension, and hyperlipidemia who presents from [facility] after being redirected from [facility] for one month of [...] diabetes, hypertension, and hyperlipidemia who presents from [facility] after being redirected from [facility] for one month of [...] alone in a single level apartment in [place], [place] Bathroom Set-up: Tub-shower with a shower [...] Code: Gait x1 Sera Mancera, LORA Pager: [phone] Physical Therapy Inpatient Rehabilitation Department * Deonte Lugo MD - 01/21/2023 7:44 AM EDT Hypertension-Nephrology Inpatient Follow-up Miguel Sanchez [id number] 1955 ID: 67 y.o. old male seen [...] being This case was discussed with staff gang plank workman Dr. Morrow. Please contact me at phone: [phone] or pager: [phone] with any questions. Deonte Lugo MD Nephrology [...] function is high at this point * Chirs Lim MD - 01/21/2023 6:02 AM EDT Images from the original note were not included. Cardiology Progress Note Patient info: Name: Miguel Sanchez : 1955 PCP: ELSIE Espinoza PCP phone number: [phone] Date of Admission: 01/18/2023 ( Hospital Day 3 days ) Attending:Chris Lim MD ID: Miguel Sanchez is a 67 y.o. male with PMH significant for HFrEF (last known EF 45% in 2020), diabetes, hypertension, and hyperlipidemia who presents from [facility] after being redirected from [facility] for one month of [...] Gas) No results found for: PHART, PO2ART, LMB5KDB, POT5WOP Microbiology: Microbiology Results (Last 30 days) Procedure Component Value Units Date/Time Urine culture [[id number]] Collected: 01/18/232212 Lab Status: Final result Specimen: [...] bladder.. Electronically signed by: Jimmie العراقي MD, [facility] ([phone]), at 01/19/2023 8:39 AM Thank you for letting us participate in the care of this patient. If you are a health care provider and have any questions regarding this report, please contact the number above. For patients who have questions, please contact the health nurse behavioral health care that requested your imaging first. Jimmie [...] diabetes, hypertension, and hyperlipidemia who presents from [facility] after being redirected from [facility] for one month of [...] AM EDT Hypertension-Nephrology Inpatient Follow-up Miguel Sanchez [id number] 1955 ID: 67 y.o. old male seen [...] serologies This case was discussed with staff gang plank workman Dr. Morrow and the patient's primary team. Please contact me at phone: [phone] or pager: [phone] with any questions. Deonte Lugo MD Nephrology [...] Reina Alcala APRN (Inactive) PCP phone number: [phone] Date of Admission: 01/18/2023 ( Hospital Day 2 days ) Attending:Chris Lim MD ID: Miguel Sanchez is a 67 y.o. male with PMH significant for HFrEF (last known EF 45% in 2019), diabetes, hypertension, and hyperlipidemia who presents from [facility] after being redirected from [facility] for one month of [...] Gas) No results found for: PHART, PO2ART, JIR6YFF, RPI7KFJ Microbiology: Microbiology Results (Last 30 days) Procedure Component Value Units Date/Time Urine culture [[id number]] Collected: 01/18/232212 Lab Status: Final result Specimen: [...] bladder.. Electronically signed by: Jimmie العراقي MD, [facility] ([phone]), at 01/19/2023 8:39 AM Thank you for letting us participate in the care of this patient. If you are a health care provider and have any questions regarding this report, please contact the number above. For patients who have questions, please contact the health nurse behavioral health care that requested your imaging first. Jimmie [...] diabetes, hypertension, and hyperlipidemia who presents from [facility] after being redirected from [facility] for one month of [...] PM EDTSummary: Advance Directive Patient completed a [place] Advance Directive. Patient identified his sister Mony as his health care agent. * Sera Mancera, PT - 01/19/2023 11:00 AM EDT Physical Therapy evaluation Patient profile: Miguel Sanchez is a 67 y.o. male with PMH significant for HFrEF (last known EF 45% in 2020), diabetes, hypertension, and hyperlipidemia who presents from [facility] after being redirected from [facility] for one month of progressively worsening shortness of breath and associated chest pain occurring both at rest and on exertion. Social History: Home set-up: Lives alone in a single level apartment in [place], [place] Bathroom Set-up: Tub-shower with a shower [...] Moderate Complexity Evaluation Sera Mancera, LORA Pager: [phone] Physical Therapy Inpatient Rehabilitation Department * Sushma Hernandez, OT - 01/19/2023 10:30 AM EDT Occupational Therapy Evaluation Patient profile: Miguel Sanchez is a 67 y.o. male with PMH significant for HFrEF (last known EF 45% in 2020), diabetes, hypertension, and hyperlipidemia who presents from [facility] after being red[facility] one month of [...] transportation for shopping and errands and his casework specialist visits once a week. Pt does not [...] and measurable assessment of functional outcome. Pager: [phone] Sushma Hernandez OTR/L Occupational Therapy Rehabilitation Department * Marii Serrano - 01/19/2023 10:23 AM EDT Rn Relief Charge Encounter Note Patient Name: Miguel Sanchez : [id number] MR#: [id number] Admit Date: 01/18/2023 5:25 PM Hospital Day [...] Kevin Ashwin and doesn't believe in goingto Caodaism because he can cheondoism God in any place he is. Patient [...] sent to Office of Care Management ~ Facility Specialist. * Chris Lim MD - 01/19/2023 6:11 AM EDT Images from the original note were not included. Cardiology Progress Note Patient info: Name: Miguel Sanchez : 1955 PCP: Reina Alcala APRN (Inactive) PCP phone number: [phone] Date of Admission: 01/18/2023 ( Hospital Day 1 day ) Attending:Chris Lim MD ID: Miguel Sanchez is a 67 y.o. male with PMH significant for HFrEF (last known EF 45% in 2019), diabetes, hypertension, and hyperlipidemia who presents from [facility] after being redirected from [facility] clinic for one month of progressively worsening shortness of breath and associated chest pain occurring both at rest and on exertion. Active Problems: Active Hospital Problems Diagnosis Heart failure Resolved Hospital Problems No resolved problems to display. 24 Hour and Subjective: Yesterday: - The patient was reassuringly afebrile and hemodynamically stable upon transfer to [facility]. Interestingly, initial exam did not demonstrate marked [...] Gas) No results found for: PHART, PO2ART, TYI3BWK, UUI4PPM Microbiology: Microbiology Results (Last 30 days) No [...] bladder.. Electronically signed by: Jimmie العراقي MD, [facility] ([phone]), at 01/19/2023 8:39 AM Thank you for letting us participate in the care of this patient. If you are a health care provider and have any questions regarding this report, please contact the number above. For patients who have questions, please contact the health nurse behavioral health care that requested your imaging first. Jimmie [...] diabetes, hypertension, and hyperlipidemia who presents from [facility] after being redirected from [facility] for one month of [...] Medicine, PGY-1 Cardiology M1-S1, #3011 Cardiology M1-S2, #9999 01/19/2023, 10:56 AM Cardiology Staff Addendum Miguel [...] Reina Alcala APRN (Inactive) PCP phone number: [phone] Date of Admission: 01/18/2023 ( Hospital Day 0 days ) Attending:Tanya Seaman MD ID: Miguel Sanchez is a 67 y.o. male with PMH significant for HFrEF (last known EF 45% in 2019), diabetes, hypertension, and hyperlipidemia who presents from [facility] after being redirected from [facility] for one month of [...] getting progressively worse he went to the [facility] urgent clinic in [place], [place] and was subsequently transferred to [facility] for further management. Upon initial presentation to [facility]: The patient was noted to be [...] reportedly 40 mg PO) and transferred to [facility] for management of presumed acute on chronic HFrEF and CLEM. Upon direct admission to [facility]: The patient was noted to be afebrile [...] history: Reports living in an apartment in [place], [place] Reports his father as a result [...] diabetes, hypertension, and hyperlipidemia who presents from [facility] one month of progressively worsening shortness of breath and associated chest painoccurring both at rest and on exertion. The patient was reassuringly afebrile and hemodynamically stable upon transfer to [facility]. Interestingly, initial exam did not demonstrate marked [...] More than 30 minutes were spent in [id number] contact with patient and with arranging discharge [...] have to pay my rent, get two fresco artist's checks - one for rent and one [...] a catheter. Has daily auditory hallucinations of [employer] that he has lived with for decades. No SI/HI. Diagnoses: schizophrenia 1996 Current treatment: zyprexa 15mg QHS Past hospitalizations: never Suicide attempts: not really - years ago he came close, but doesn't elaborate Past psychiatric medications: did not assess Substance Use History/Treatment: no alcohol, cigarettes, marijuana, or other substances Social History: Lives in an apartment by himself in [facility]. No family in the area. Only support is his mental health agency. [facility] - Randa Daniels (casework specialist). Asa Deal is his provider. Problem List: [...] injection 7,500 Units 7,500 Units Subcutaneous Q8H [facility] Kendy Montes MD 7,500 Units at [...] rate, and normal rhythm Language: fluent in wolof Mood: fine Affect: blunted and mood-congruent Thought [...] check on him, or see if his casework specialist willcheck in on him tomorrow Please page psychiatry with additional questions Patient on IEA Status? IEA: NO, patient is not on IEA and does not have any psychiatric contraindication to discharge at the time of this assessment. Recommendations were communicated to primary associate team physician Kendy Montes MD. Maritza Awan MD Psychiatry, [...] [] Minimal - [] Minimal [] Straightforward [id number] [] Low [] Low [] Low [] Low 07411 [] Moderate [x] Moderate [] Moderate [] Moderate 59188 [x] High [] High [x] High [x] High 22005 Final Coding Determination: High Associated attestation - [...] CM). Keon Park MD Psychiatry Consultation Pager: [phone] * Plan of Care - Adrienne Calderon [...] diabetes, hypertension, and hyperlipidemia who presents from [facility] after being redirected from [facility] for one month of [...] to: discuss discharge planning needs. provide the [facility], Office of Care Management letter from the Project Mgr pertaining to rehab referrals. provide a letter describing our affiliations within the [facility] and educate about their right to choose where referrals are sent. provide a list of Home Health Agencies / Durable Medical Equipment vendors which serve their preferred geographic area. provided patient with [facility] Star Quality Rating handout. They have requested referrals to: [facility]. [address] [place] [id number] Note routed to a Facility Specialist who will communicate referrals to facilities and [...] the original note were not included. Formerly [facility] [place] [address] [address] CORONARY ANGIOGRAM AND PERCUTANEOUS CORONARY INTERVENTION REPORT Patient: Miguel Sanchez : 1955 MR number: [id number] Date of Service: 01/22/2023 Pharmaceutical Development Technician: Layton Morris MD Fellow: Mario Alberto Glasgow MD INDICATION: Miguel Sanchez is a 67 y.o. male with PMH significant for HFrEF (last known EF 45% in 2019), diabetes, hypertension, and hyperlipidemia who presents from [facility] after being redirected from [facility] for one month of [...] goes to the bank and gets a forest ecologist's check and pays it. CM tried to call the bank and the customer needs to be present for them to release any funds. I tried to call the [employer] [facility]- but they were closed. CM also tried to call his casework specialist Randa to see if she could help. Left message for her to call back. Will put in STAMP ANALYST consult to meet with him on Wednesday to follow up with the [employer] To see if theywould be able [...] PT/OT Recommendations Outpatient Agency/Support Group Needs: Other [facility]: Randa Gonzalez at [phone] (casework specialist) Transportation: Medicaid transport- will need 24 hours [...] will need 24 hour notice to contact MD t ransportation services prior to discharge. Social [...] GOAL OUTCOME EVALUATION: Ongoing * Plan of [facility], Jayson De La Cruz Jr., MD - 01/21/2023 [...] Coon MD Urology PGY-2 Daytime Consult Pager #[phone] * Initial Assessments - Darryl Rodriguez RN - 01/19/2023 4:57 PM EDT Office of Care Management Initial Assessment Darryl Rodriguez RN reviewed record and discussed patient with Care Team. Source of Information: Team, bedside nurse, medical record, and Patient, Chart Review. Introduced self/reviewed role; services accepted. Admitted From: Transfer from another hospital Location: [facility] Reason for Hospitalization: Heart problems and kidney problems Covid Vaccination Status: 1st, 2nd & booster Last COVID test: na Past medical History: No past medical history on file. Hospitalizations Within the Past 30 Days: no previous admission in last 30 days Current Decision-Making Capacity: Self If AD's have not been completed the following surrogate would be surrogate decision maker per [place] surrogate decision making law. (Only good for 180 days) Any patient receiving care in [place] must abide by [place] law. The hierarchy for surrogate decision making [...] (i) The agent with financial power of patent attorney or a conservator appointed in accordance [...] DME: none Home Address confirmed as: [address] [facility] [place] [facility] [address] Social & Family Supports: All names listed below confirmed with patient as current and correct Extended Emergency Contact Information Primary Emergency Contact: Mony Abraham Mobile Relation: Sibling Current Care Provided by: self Provides Primary Care For: no one, unable/limited ability to care for self Caregiver if needed: none Quality of Family relationships: non-existent Community Resources being provided currently: outpatient psychiatric care ([facility]) Behavioral Health History: Schizophrenia unspecified; MMD recurrent unspecified; on Olanzapine 15mgQD per Miroslava Anguiano CM at [facility] Substance Use/Abuse confirmed: denies all Social History [...] Yes ; Prescription Coverage: Yes Preferred Pharmacy: [id number] [address] Status: Patient is a : No Primary [...] 7:38 AM EDT Hypertension-Nephrology Consultation Miguel Sanchez [id number] 1955 ID: Miguel Sanchez is 67 y.o. [...] labs. This case was discussed with staff gang plank workman Dr. Morrow and the patient's primary team. Please contact me at phone: [phone] or pager: [phone] with any questions. Deonte Lugo MD Nephrology [...] 10:00 AM EDT [place] [address] Austin Simon MD [facility] [place] [place] [address] Lindy Box APRN [facility] [place] [address] Scheduled Referrals Name Type Priority Associated Diagnoses [...] POC Glucose 159 65 - 199 mg/dL [facility] Comment: Supplemental ranges: <140 mg/dL before meals <180 mg/dL all other times of the day Blood 01/27/2023 12:1 8 PM EDT 01/27/2023 12:18 PM EDT Mendel Luna MD POINT OF CARE TEST O RDERABLES Performing Organization Address City/[facility]/ZIP Co de Phone Number [facility] [place] [address] * POCT Glucose (01/27/2023 7:58 AM EDT) POC Glucose 173 65 - 199 mg/dL [facility] Comment: Supplemental ranges: <140 mg/dL before meals <180 mg/dL all other times of the day Blood 01/27/2023 7:58 AM EDT 01/27/2023 7:58 AM EDT Mendel Luna MD POINT OF CARE TEST O RDERABLES [facility] [place] [address] * (ABNORMAL) Differential, Automated (01/27/2023 3:49 AM EDT) Neutrophils % 75.3 % [facility] Neutr Abs (ANC) 6.21(H) 1.70 - 6.10 x10(3)/[facility] Lymphocytes % 12.1 % [facility] Lymphocytes Abs 1.0 0.9 - 3.2 x10(3)/[facility] Monocytes % 8.6 % [facility] Monocyte Abs 0.7 0.3 - 0.9 x10(3)/[facility] Eosinophils % 2.9 % [facility] Eosinophils Abs 0.2 0.0 - 0.4 x10(3)/[facility] Basophils % 0.7 % [facility] Basophils Abs 0.1 0.0 - 0.1 x10(3)/[facility] Immature Gran % 0.40 % [facility] Comment: Immature granulocytes(IG's)percentage and absolute count will include metamyelocytes, myelocytes, and promyelocytes. Blood smears from CBCs yielding IG's will be scanned manually for concordance. If this scan disagrees with the automated IG or if promyelocytes are noted, a manual differential will be performed. Angelica Gran Abs 0.03 0.00 - 0.04 x10(3)/[facility] Blood 01/27/2023 3:49 AM EDT 01/27/2023 4:08 AM EDT Narrative Resulting Agency Comment Spec In Lab Kyle Mckeon MD HEMATOLOGY ORDERABLE S [facility] [place] [address] * (ABNORMAL) Hemogram (01/27/2023 3:49 AM EDT) WBC 8.2 4.0 - 9.5 x10(3)/[facility] RBC 3.45(L) 4.58 - 5.54 x10(6)/[facility] Hemoglobin 10.6(L) 13.7 - 16.5 g/dL [facility] Hematocrit 31.5(L) 40.5 - 48.5 % [facility] MCV 91.3 82.9 - 93.1 fL [facility] MCH 30.7 27.5 - 32.1 pg [facility] MCHC 33.7 32.0 - 35.7 g/dL [facility] Platelets 163 145 - 357 x10(3)/[facility] RDWSD 42.7 36.0 - 45.0 [facility] RDWCV 13.0 11.4 - 13.8 % [facility] MPV 12.8 7.6 - 12.9 [facility] nRBC % Auto 0.0 % [facility] nRBC Abs Auto 0.000 0.000 - 0.000 x10(3)/[facility] Blood 01/27/2023 3:49 AM EDT 01/27/2023 4:08 AM EDT Narrative Resulting Agency Comment Spec In Lab Kyle Mckeon MD HEMATOLOGY ORDERABLE S Performing Organization Address City/[facility]/[place] [address] * (ABNORMAL) Phosphorus (01/27/2023 3:49 AM EDT) Phosphorus 5.0(H) 2.5 - 4.5 mg/dL [facility] Blood 01/27/2023 3:49 AM EDT 01/27/2023 4:08 AM EDT Narrative Resulting Agency Comment Spec In Lab Tanya Seaman MD CHEMISTRY ORDERABL ES [facility] [place] [address] * Magnesium (01/27/2023 3:49 AM EDT) Pathologist [facility] Magnesium 0.97 0.69 - 1.07 mmol/L [facility] Blood 01/27/2023 3:49 AM EDT 01/27/2023 4:08 AM EDT Narrative Resulting Agency Comment Spec In Lab Tanya Seaman MD CHEMISTRY ORDERABL ES [facility] [place] [address] * (ABNORMAL) Basic Metabolic Panel (non-fasting) (01/27/2023 3:49 AM EDT) Pathologist [facility] Glucose Lvl 142 65 - 199 mg/dL [facility] Comment:Diabetes: >=200 mg/d L plus symptoms BUN 78(H) 10 - 20 mg/dL [facility] Creatinine 4.74(H) 0.80 - 1.50 mg/dL [facility] Sodium 137 135 - 145 mmol/L [facility] Potassium 4.8 3.5 - 5.0 mmol/L [facility] Comment: Please note: ??Patients with WBC >100,000 may have falsely elevated Potassium levels. ??For accurate Potassium quantification in these patients send serum separator tube (gold top) for subsequent determinations. ??Contact the Clinical Chemistry Laboratory if there are any questions. Chloride 107 98 - 107 mmol/L [facility] CO2 15(L) 22 - 31 mmol/L [facility] Anion Gap 15 5 - 15 mmol/L [facility] Calcium 9.4 8.5 - 10.5 mg/dL [facility] Estimated GFR 13(L) >=60 mL/min/1. 73 m?? [facility] Comment: This patient's estimated [...] ORDERABL ES Performing Organization Address [facility] de Phone Number [facility] [place] [address] * (ABNORMAL) POCT Glucose (01/26/2023 8:20 PM EDT) POC Glucose 202(H) 65 - 199 mg/dL [facility] Comment: Supplemental ranges: <140 mg/dL before meals <180 mg/dL all other times of the day Blood 01/26/2023 8:20 PM EDT 01/26/2023 8:20 PM EDT Mendel Luna MD POINT OF CARE TEST O RDERABLES Performing Organization Address [facility] Co de Phone Number [facility] [place] [address] * POCT Glucose (01/26/2023 4:04 PM EDT) POC Glucose 152 65 - 199 mg/dL [facility] Comment: Supplemental ranges: <140 mg/dL before meals <180 mg/dL all other times of the day Blood 01/26/2023 4:04 PM EDT 01/26/2023 4:04 PM EDT Mendel uLna MD POINT OF CARE TEST O RDERAMARCY Performing Organization Address [facility] Co de Phone Number [facility] [place] [address] * POCT Glucose (01/26/2023 11:42 AM EDT) POC Glucose 175 65 - 199 mg/dL [facility] Comment: Supplemental ranges: <140 mg/dL before meals <180 mg/dL all other times of the day Blood 01/26/2023 11:4 2 AM EDT 01/26/2023 11:42 AM EDT Mendel Luna MD POINT OF CARE TEST O RDERABLES [facility] [place] [address] * POCT Glucose (01/26/2023 7:51 AM EDT) Pathologist [facility] POC Glucose 137 65 - 199 mg/dL [facility] Comment: Supplemental ranges: <140 mg/dL before meals <180 mg/dL all other times of the day Blood 01/26/2023 7:51 AM EDT 01/26/2023 7:51 AM EDT Mendel Luna MD POINT OF CARE TEST O RDERABLES [facility] [place] [address] * Differential, Automated (01/26/2023 3:11 AM EDT) Neutrophils % 71.1 % [facility] Neutr Abs (ANC) 5.94 1.70 - 6.10 x10(3)/[facility] Lymphocytes % 15.3 % [facility] Lymphocytes Abs 1.3 0.9 - 3.2 x10(3)/[facility] Monocytes % 8.9 % [facility] Monocyte Abs 0.7 0.3 - 0.9 x10(3)/[facility] Eosinophils % 3.6 % [facility] Eosinophils Abs 0.3 0.0 - 0.4 x10(3)/[facility] Basophils % 0.7 % [facility] Basophils Abs 0.1 0.0 - 0.1 x10(3)/[facility] Immature Gran % 0.40 % [facility] Comment: Immature granulocytes(IG's)percentage and absolute count will include metamyelocytes, myelocytes, and promyelocytes. Blood smears from CBCs yielding IG's will be scanned manually for concordance. If this scan disagrees with the automated IG or if promyelocytes are noted, a manual differential will be performed. Angelica Gran Abs 0.03 0.00 - 0.04 x10(3)/[facility] Blood 01/26/2023 3:11 AM EDT 01/26/2023 3:40 AM EDT Narrative Resulting Agency Comment Spec In Lab Kyle Mckeon MD HEMATOLOGY ORDERABLE S [facility] [place] [address] * (ABNORMAL) Hemogram (01/26/2023 3:11 AM EDT) WBC 8.4 4.0 - 9.5 x10(3)/[facility] RBC 3.25(L) 4.58 - 5.54 x10(6)/[facility] Hemoglobin 10.2(L) 13.7 - 16.5 g/dL [facility] Hematocrit 29.8(L) 40.5 - 48.5 % [facility] MCV 91.7 82.9 - 93.1 fL [facility] MCH 31.4 27.5 - 32.1 pg [facility] MCHC 34.2 32.0 - 35.7 g/dL [facility] Platelets 161 145 - 357 x10(3)/[facility] RDWSD 43.0 36.0 - 45.0 fL [facility] RDWCV 13.0 11.4 - 13.8 % [facility] MPV 13.0(H) 7.6 - 12.9 fL [facility] nRBC % Auto 0.0 % [facility] nRBC Abs Auto 0.000 0.000 - 0.000 x10(3)/mcL [facility] Blood 01/26/2023 3:11 AM EDT 01/26/2023 3:40 AM EDT Narrative Resulting Agency Comment Spec In Lab Kyle Mckeon MD HEMATOLOGY ORDERABLE S Performing Organization Address [facility] Co de Phone Number [facility] [place] [address] * (ABNORMAL) Phosphorus (01/26/2023 3:11 AM EDT) Phosphorus 4.6(H) 2.5 - 4.5 mg/dL [facility] Blood 01/26/2023 3:11 AM EDT 01/26/2023 3:39 AM EDT Narrative Resulting Agency Comment Spec In Lab Tanya Seaman MD CHEMISTRY ORDERABL ES Performing Organization Address [facility] Co de Phone Number [facility] [place] [address] * Magnesium (01/26/2023 3:11 AM EDT) Magnesium 0.97 0.69 - 1.07 mmol/L [facility] Blood 01/26/2023 3:11 AM EDT 01/26/2023 3:39 AM EDT Narrative Resulting Agency Comment Spec In Lab Tanya Seamna MD CHEMISTRY ORDERABL ES Performing Organization Address City/[facility]/ZIP Co de Phone Number [facility] [place] [address] * (ABNORMAL) Basic Metabolic Panel (non-fasting) (01/26/2023 3:11 AM EDT) Glucose Lvl 127 65 - 199 mg/dL [facility] Comment:Diabetes: >=200 mg/d L plus symptoms BUN 77(H) 10 - 20 mg/dL [facility] Creatinine 4.91(H) 0.80 - 1.50 mg/dL [facility] Sodium 139 135 - 145 mmol/L [facility] Potassium 4.8 3.5 - 5.0 mmol/L [facility] Comment: Please note: ??Patients with WBC >100,000 may have falsely elevated Potassium levels. ??For accurate Potassium quantification in these patients send serum separator tube (gold top) for subsequent determinations. ??Contact the Clinical Chemistry Laboratory if there are any questions. Chloride 105 98 - 107 mmol/L [facility] CO2 18(L) 22 - 31 mmol/L [facility] Anion Gap 16(H) 5 - 15 mmol/L [facility] Calcium 9.3 8.5 - 10.5 mg/dL [facility] Estimated GFR 12(L) >=60 mL/min/1. 73 m?? [facility] Comment: This patient's estimated [...] ORDERABL ES Performing Organization Address [facility] de Phone Number [facility] [place] [address] * POCT Glucose (01/25/2023 9:24 PM EDT) POC Glucose 181 65 - 199 mg/dL [facility] Comment: Supplemental ranges: <140 mg/dL before meals <180 mg/dL all other times of the day Blood 01/25/2023 9:24 PM EDT 01/25/2023 9:24 PM EDT Mendel Luna MD POINT OF CARE TEST O RDERABLES Performing Organization Address [facility] de Phone Number [facility] [place] [address] * POCT Glucose (01/25/2023 4:46 PM EDT) POC Glucose 153 65 - 199 mg/dL [facility] Comment: Supplemental ranges: <140 mg/dL before meals <180 mg/dL all other times of the day Blood 01/25/2023 4:46 PM EDT 01/25/2023 4:46 PM EDT Mendel Luna MD POINT OF CARE TEST O RDERABLES Performing Organization Address [facility] de Phone Number [facility] [place] [address] * US Retroperitoneal Complete (01/25/2023 3:50 PM [...] who have questions, please contact the health nurse behavioral health care that requested your imaging first. ?Elsie Garza, ELIZABETH [facility] [employer] Electronically Signed Final Report ?? 01/25/2023 04:10 pm Narrative 01/25/2023 4:11 PM EDT Renal ? (Signed Final 01/25/2023 04:10 pm) PATIENT INFO: ID #: ? [id number] ?: ??[birth year] (67 yrs)(M) Name: ? MIGUEL SANCHEZ ? Visit Date: 01/25/2023 03:47 pm PERFORMED BY: Attending: ?Kayla OTT, Elsie Conley Performed By: ? Paola Pritchard RDMS Referred By: ?MENDEL LUNA Location: ? [place] SERVICE(S) PROVIDED: URETRO - Retroperitoneal Complete - [id number] ? [id number] INDICATIONS: 67yo male with CLEM, repeat U/S [...] 01/25/2023 04:10 pm) PATIENT INFO: ID #: [id number] : [birth year] (67 yrs)(M) Name: MIGUEL SANCHEZ Visit Date: 01/25/2023 03:47 pm PERFORMED BY: Attending: Elsie Garza MD Performed By: Paola Pritchard RDMS Referred By: MENDEL LUNA Location: [place] SERVICE(S) PROVIDED: URETRO - Retroperitoneal Complete - [id number] INDICATIONS: 67yo male with CLEM, repeat U/S [...] place. Electronically signed by: Elsie Garza MD, [facility] ([phone]), at 01/25/2023 4:02 PM Thank you for letting us participate in the care of this patient. If you are a health care provider and have any questions regarding this report, please contact the number above. For patients who have questions, please contact the health nurse behavioral health care that requested your imaging first. Elsie Garza, [facility] [employer] Electronically Signed Final Report 01/25/2023 04:10 pm Mendel Luna MD IM US GEN ORDERABLE S * POCT Glucose (01/25/2023 11:20 AM EDT) Pathologist [facility] POC Glucose 182 65 - 199 mg/dL [facility] Comment: Supplemental ranges: <140 mg/dL before meals <180 mg/dL all other times of the day Blood 01/25/2023 11:2 0 AM EDT 01/25/2023 11:20 AM EDT Mendel Luna MD POINT OF CARE TEST O TESSA [facility] [place] [address] * POCT Glucose (01/25/2023 7:44 AM EDT) [facility] POC Glucose 155 65 - 199 mg/dL [facility] Comment: Supplemental ranges: <140 mg/dL before meals <180 mg/dL all other times of the day Blood 01/25/2023 7:44 AM EDT 01/25/2023 7:44 AM EDT Mendel Luna MD POINT OF CARE TEST O TESSA Performing Organization Address City/[facility] Co de Phone Number [facility] [place] [address] * Differential, Automated (01/25/2023 4:06 AM EDT) Pathologist [facility] Neutrophils % 72.7 % [facility] Neutr Abs (ANC) 5.96 1.70 - 6.10 x10(3)/[facility] Lymphocytes % 14.7 % [facility] Lymphocytes Abs 1.2 0.9 - 3.2 x10(3)/[facility] Monocytes % 8.2 % [facility] Monocyte Abs 0.7 0.3 - 0.9 x10(3)/[facility] Eosinophils % 3.5 % [facility] Eosinophils Abs 0.3 0.0 - 0.4 x10(3)/[facility] Basophils % 0.7 % [facility] Basophils Abs 0.1 0.0 - 0.1 x10(3)/[facility] Immature Gran % 0.20 % [facility] Comment: Immature granulocytes(IG's)percentage and absolute count will include metamyelocytes, myelocytes, and promyelocytes. Blood smears from CBCs yielding IG's will be scanned manually for concordance. If this scan disagrees with the automated IG or if promyelocytes are noted, a manual differential will be performed. Angelica Gran Abs 0.02 0.00 - 0.04 x10(3)/[facility] Blood 01/25/2023 4:06 AM EDT 01/25/2023 4:17 AM EDT Narrative Resulting Agency Comment Spec In Lab Kyle Mckeon MD HEMATOLOGY ORDERABLE S Performing Organization Address City/State/[facility] Co de Phone Number [facility] [place] [address] * (ABNORMAL) Hemogram (01/25/2023 4:06 AM EDT) WBC 8.2 4.0 - 9.5 x10(3)/[facility] RBC 3.38(L) 4.58 - 5.54 x10(6)/[facility] Hemoglobin 10.6(L) 13.7 - 16.5 g/dL [facility] Hematocrit 30.7(L) 40.5 - 48.5 % [facility] MCV 90.8 82.9 - 93.1 fL [facility] MCH 31.4 27.5 - 32.1 pg [facility] MCHC 34.5 32.0 - 35.7 g/dL [facility] Platelets 170 145 - 357 x10(3)/[facility] RDWSD 42.1 36.0 - 45.0 fL [facility] RDWCV 12.8 11.4 - 13.8 % [facility] MPV 12.6 7.6 - 12.9 fL [facility] nRBC % Auto 0.0 % [facility] nRBC Abs Auto 0.000 0.000 - 0.000 x10(3)/mcL [facility] Blood 01/25/2023 4:06 AM EDT 01/25/2023 4:17 AM EDT Narrative Resulting Agency Comment Spec In Lab Kyle Mckeon MD HEMATOLOGY ORDERABLE S Performing Organization Address City/[facility]/ZIP Co de Phone Number [facility] [place] [address] * (ABNORMAL) Phosphorus (01/25/2023 4:06 AM EDT) Phosphorus 4.9(H) 2.5 - 4.5 mg/dL [facility] Blood 01/25/2023 4:06 AM EDT 01/25/2023 4:17 AM EDT Narrative Resulting Agency Comment Spec In Lab Tanya Seaman MD CHEMISTRY ORDERABL ES Performing Organization Address [facility] Co de Phone Number [facility] [place] [address] * Magnesium (01/25/2023 4:06 AM EDT) Magnesium 1.00 0.69 - 1.07 mmol/L [facility] Blood 01/25/2023 4:06 AM EDT 01/25/2023 4:17 AM EDT Narrative Resulting Agency Comment Spec In Lab Tanya Seaman MD CHEMISTRY ORDERABL ES Performing Organization Address City/[facility]/ZIP Co de Phone Number [facility] [place] [address] * (ABNORMAL) Basic Metabolic Panel (non-fasting) (01/25/2023 4:06 AM EDT) Glucose Lvl 148 65 - 199 mg/dL [facility] Comment:Diabetes: >=200 mg/d L plus symptoms BUN 78(H) 10 - 20 mg/dL [facility] Creatinine 5.06(H) 0.80 - 1.50 mg/dL [facility] Sodium 139 135 - 145 mmol/L [facility] Potassium 4.5 3.5 - 5.0 mmol/L [facility] Comment: Please note: ??Patients with WBC >100,000 may have falsely elevated Potassium levels. ??For accurate Potassium quantification in these patients send serum separator tube (gold top) for subsequent determinations. ??Contact the Clinical Chemistry Laboratory if there are any questions. Chloride 103 98 - 107 mmol/L [facility] CO2 19(L) 22 - 31 mmol/L [facility] Anion Gap 17(H) 5 - 15 mmol/L [facility] Calcium 9.5 8.5 - 10.5 mg/dL [facility] Estimated GFR 12(L) >=60 mL/min/1. 73 m?? [facility] Comment: This patient's estimated [...] Lab Tanya Seaman MD CHEMISTRY ORDERABL ES [facility] [place] [address] * POCT Glucose (01/24/2023 10:12 PM EDT) POC Glucose 175 65 - 199 mg/dL [facility] Comment: Supplemental ranges: <140 mg/dL before meals <180 mg/dL all other times of the day Blood 01/24/2023 10:1 2 PM EDT 01/24/2023 10:12 PM EDT Mendel Luna MD POINT OF CARE TEST O RDERABLES [facility] [place] [address] * POCT Glucose (01/24/2023 4:41 PM EDT) POC Glucose 157 65 - 199 mg/dL [facility] Comment: Supplemental ranges: <140 mg/dL before meals <180 mg/dL all other times of the day Blood 01/24/2023 4:41 PM EDT 01/24/2023 4:41 PM EDT Mendel Luna MD POINT OF CARE TEST O RDERABLES [facility] [place] [address] * POCT Glucose (01/24/2023 12:10 PM EDT) POC Glucose 177 65 - 199 mg/dL [facility] Comment: Supplemental ranges: <140 mg/dL before meals <180 mg/dL all other times of the day Blood 01/24/2023 12:1 0 PM EDT 01/24/2023 12:10 PM EDT Mendel Luna MD POINT OF CARE TEST O RDERABLES [facility] [place] [address] * POCT Glucose (01/24/2023 7:51 AM EDT) [facility] POC Glucose 175 65 - 199 mg/dL [facility] Comment: Supplemental ranges: <140 mg/dL before meals <180 mg/dL all other times of the day Blood 01/24/2023 7:51 AM EDT 01/24/2023 7:51 AM EDT Mendel Luna MD POINT OF CARE TEST O RDERABLES Performing Organization Address City/[facility] Co de Phone Number [facility] [place] [address] * (ABNORMAL) Phosphorus (01/24/2023 2:56 AM EDT) [facility] Phosphorus 5.0(H) 2.5 - 4.5 mg/dL [facility] Blood 01/24/2023 2:56 AM EDT 01/24/2023 3:06 AM EDT Narrative Resulting Agency Comment Spec In Lab Tanya Seaman MD CHEMISTRY ORDERABL ES Performing Organization Address [facility] Co de Phone Number [facility] [place] [address] * Magnesium (01/24/2023 2:56 AM EDT) [facility] Magnesium 0.94 0.69 - 1.07 mmol/L [facility] Blood 01/24/2023 2:56 AM EDT 01/24/2023 3:06 AM EDT Narrative Resulting Agency Comment Spec In Lab Tanya Seaman MD CHEMISTRY ORDERABL ES Performing Organization Address [facility] Co de Phone Number [facility] [place] [address] * (ABNORMAL) Basic Metabolic Panel (non-fasting) (01/24/2023 2:56 AM EDT) [facility] Glucose Lvl 131 65 - 199 mg/dL [facility] Comment:Diabetes: >=200 mg/d L plus symptoms BUN 80(H) 10 - 20 mg/dL [facility] Creatinine 5.46(H) 0.80 - 1.50 mg/dL [facility] Sodium 139 135 - 145 mmol/L [facility] Potassium 4.5 3.5 - 5.0 mmol/L [facility] Comment: Please note: ??Patients with WBC >100,000 may have falsely elevated Potassium levels. ??For accurate Potassium quantification in these patients send serum separator tube (gold top) for subsequent determinations. ??Contact the Clinical Chemistry Laboratory if there are any questions. Chloride 104 98 - 107 mmol/L [facility] CO2 21(L) 22 - 31 mmol/L [facility] Anion Gap 14 5 - 15 mmol/L [facility] Calcium 9.3 8.5 - 10.5 mg/dL [facility] Estimated GFR 11(L) >=60 mL/min/1. 73 m?? [facility] Comment: This patient's estimated [...] Lab Tanya Seaman MD CHEMISTRY ORDERABL ES [facility] [place] [address] * POCT Glucose (01/23/2023 9:16 PM EDT) POC Glucose 150 65 - 199 mg/dL [facility] Comment: Supplemental ranges: <140 mg/dL before meals <180 mg/dL all other times of the day Blood 01/23/2023 9:16 PM EDT 01/23/2023 9:16 PM EDT Mendel Luna MD POINT OF CARE TEST O RDERABLES Performing Organization Address City/[facility]/ZIP Co de Phone Number [facility] [place] [address] * (ABNORMAL) POCT Glucose (01/23/2023 3:13 PM EDT) POC Glucose 246(H) 65 - 199 mg/dL [facility] Comment: Supplemental ranges: <140 mg/dL before meals <180 mg/dL all other times of the day Blood 01/23/2023 3:13 PM EDT 01/23/2023 3:13 PM EDT Mendel Luna MD POINT OF CARE TEST O RDERABLES Performing Organization Address [facility]/ZIP Co de Phone Number [facility] [place] [address] * POCT Glucose (01/23/2023 11:06 AM EDT) POC Glucose 163 65 - 199 mg/dL [facility] Comment: Supplemental ranges: <140 mg/dL before meals <180 mg/dL all other times of the day Blood 01/23/2023 11:0 6 AM EDT 01/23/2023 11:06 AM EDT Mendel Luna MD POINT OF CARE TEST O RDERABLES [facility] [place] [address] * POCT Glucose (01/23/2023 7:46 AM EDT) POC Glucose 165 65 - 199 mg/dL [facility] Comment: Supplemental ranges: <140 mg/dL before meals <180 mg/dL all other times of the day Blood 01/23/2023 7:46 AM EDT 01/23/2023 7:46 AM EDT Mendel Luna MD POINT OF CARE TEST O RDERABLES [facility] [place] [address] * Differential, Automated (01/23/2023 2:53 AM EDT) Pathologist [facility] Neutrophils % 72.0 % [facility] Neutr Abs (ANC) 5.86 1.70 - 6.10 x10(3)/[facility] Lymphocytes % 13.8 % [facility] Lymphocytes Abs 1.1 0.9 - 3.2 x10(3)/[facility] Monocytes % 9.2 % [facility] Monocyte Abs 0.8 0.3 - 0.9 x10(3)/[facility] Eosinophils % 4.1 % [facility] Eosinophils Abs 0.3 0.0 - 0.4 x10(3)/[facility] Basophils % 0.7 % [facility] Basophils Abs 0.1 0.0 - 0.1 x10(3)/[facility] Immature Gran % 0.20 % [facility] Comment: Immature granulocytes(IG's)percentage and absolute count will include metamyelocytes, myelocytes, and promyelocytes. Blood smears from CBCs yielding IG's will be scanned manually for concordance. If this scan disagrees with the automated IG or if promyelocytes are noted, a manual differential will be performed. Angelica Gran Abs 0.02 0.00 - 0.04 x10(3)/[facility] Blood 01/23/2023 2:53 AM EDT 01/23/2023 3:05 AM EDT Narrative Resulting Agency Comment Spec In Lab Kyle Mckeon MD HEMATOLOGY ORDERABLE S [facility] [place] [address] * (ABNORMAL) Hemogram (01/23/2023 2:53 AM EDT) WBC 8.1 4.0 - 9.5 x10(3)/[facility] RBC 3.41(L) 4.58 - 5.54 x10(6)/[facility] Hemoglobin 10.4(L) 13.7 - 16.5 g/dL [facility] Hematocrit 30.7(L) 40.5 - 48.5 % [facility] MCV 90.0 82.9 - 93.1 [facility] MCH 30.5 27.5 - 32.1 pg [facility] MCHC 33.9 32.0 - 35.7 g/dL [facility] Platelets 182 145 - 357 x10(3)/[facility] RDWSD 42.3 36.0 - 45.0 [facility] RDWCV 13.0 11.4 - 13.8 % [facility] MPV 12.1 7.6 - 12.9 [facility] nRBC % Auto 0.0 % [facility] nRBC Abs Auto 0.000 0.000 - 0.000 x10(3)/[facility] Blood 01/23/2023 2:53 AM EDT 01/23/2023 3:05 AM EDT Narrative Resulting Agency Comment Spec In Lab Kyle Mckeon MD HEMATOLOGY ORDERABLE S [facility] [place] [address] * (ABNORMAL) Phosphorus (01/23/2023 2:53 AM EDT) Phosphorus 5.8(H) 2.5 - 4.5 mg/dL [facility] Blood 01/23/2023 2:53 AM EDT 01/23/2023 3:05 AM EDT Narrative Resulting Agency Comment Spec In Lab Tanya Seaman MD CHEMISTRY ORDERABL ES Performing Organization Address [facility] Co de Phone Number [facility] [place] [address] * Magnesium (01/23/2023 2:53 AM EDT) Magnesium 0.96 0.69 - 1.07 mmol/L [facility] Blood 01/23/2023 2:53 AM EDT 01/23/2023 3:05 AM EDT Narrative Resulting Agency Comment Spec In Lab Tanya Seaman MD CHEMISTRY ORDERABL ES Performing Organization Address [facility] Co de Phone Number [facility] [place] [address] * (ABNORMAL) Basic Metabolic Panel (non-fasting) (01/23/2023 2:53 AM EDT) Glucose Lvl 131 65 - 199 mg/dL [facility] Comment:Diabetes: >=200 mg/d L plus symptoms BUN 81(H) 10 - 20 mg/dL [facility] Creatinine 5.47(H) 0.80 - 1.50 mg/dL [facility] Sodium 139 135 - 145 mmol/L [facility] Potassium 4.4 3.5 - 5.0 mmol/L [facility] Comment: Please note: ??Patients with WBC >100,000 may have falsely elevated Potassium levels. ??For accurate Potassium quantification in these patients send serum separator tube (gold top) for subsequent determinations. ??Contact the Clinical Chemistry Laboratory if there are any questions. Chloride 105 98 - 107 mmol/L [facility] CO2 20(L) 22 - 31 mmol/L [facility] Anion Gap 14 5 - 15 mmol/L [facility] Calcium 9.2 8.5 - 10.5 mg/dL [facility] Estimated GFR 11(L) >=60 mL/min/1. 73 m?? [facility] Comment: This patient's estimated [...] MD CHEMISTRY ORDERABL ES Performing Organization Address [facility]/ZIP Co de Phone Number [facility] [place] [address] * (ABNORMAL) POCT Glucose (01/22/2023 7:28 PM EDT) POC Glucose 237(H) 65 - 199 mg/dL [facility] Comment: Supplemental ranges: <140 mg/dL before meals <180 mg/dL all other times of the day Blood 01/22/2023 7:28 PM EDT 01/22/2023 7:28 PM EDT Mendel Luna MD POINT OF CARE TEST O RDERABLES Performing Organization Address City/[facility]/ZIP Co de Phone Number [facility] [place] [address] * POCT Glucose (01/22/2023 5:30 PM EDT) POC Glucose 130 65 - 199 mg/dL [facility] Comment: Supplemental ranges: <140 mg/dL before meals <180 mg/dL all other times of the day Blood 01/22/2023 5:30 PM EDT 01/22/2023 5:30 PM EDT Mendel Luna MD POINT OF CARE TEST O RDERABLES [facility] [place] [address] * CARDIAC CATHETERIZATION (01/22/2023 5:10 PM EDT) Anatomical Region Laterality Modality Other Narrative 01/22/2023 5:07 PM EDT ?[facility] ? Cardiac Catheterization/Intervention Report ? Patient Name: Miguel Sanchez ? Procedure Date: 01/22/2023 ? A #: [id number] ? Primary Physician: Morris, Layton P ? Case #: [id number] ? File Name: [id number] ? Catheterization Order Number: [id number] ? [facility] ? Final Report [place], [place] ? Patient Name: ? Miguel Cook ? ID#: ?[id number] ? : ?1955 ? Procedure Date: ? [...] procedure was Urgent. The indication for ?the roving tester laboratory visit is cardiomyopathy. Chest pain symptom assessment [...] Procedure Note Layton Morris MD - 01/22/2023 [facility] Cardiac Catheterization/Intervention Report Patient Name: Miguel Sanchez Procedure Date: 01/22/2023 A #: [id number] Primary Physician: Layton Morris Case #: [id number] File Name: [id number] Catheterization Order Number: [id number] [facility] FinalReport [place], [place] Patient Name: Miguel Sanchez ID#:[id number] :1955 Procedure Date: January 22, 2023 Case [...] patient was designated as ASA Class III. [facility] 5: Mildly Frail. Diagnostic Tests: Medications Prior to Procedure: Angiotensin Converting Enzyme Inhibitor, Aspirin, Beta Blockerand Statin. Indications for Diagnostic Cath: The priority of the diagnostic procedure was Urgent. The indicationfor the roving tester laboratory visit is cardiomyopathy. Chest pain symptom assessmentwas: [...] was present for the entire procedure. Dr. Latyon Morris M.D. performed the right heart catheterization and oximetry. Layton Morris M.D. Electronically Signed by: Layton Morris M.D. Report Finalized: 01/22/2023 17:03 Layton Morris MD CARDIAC CATH ORDERAB LES * POCT Glucose (01/22/2023 12:35 PM EDT) POC Glucose 165 65 - 199 mg/dL [facility] Comment: Supplemental ranges: <140 mg/dL before meals <180 mg/dL all other times of the day Blood 01/22/2023 12:3 5 PM EDT 01/22/2023 12:35 PM EDT Mendel Luna MD POINT OF CARE TEST O RDERABLES Performing Organization Address City/[facility]/ZIP Co de Phone Number [facility] [place] [address] * POCT Glucose (01/22/2023 7:52 AM EDT) POC Glucose 145 65 - 199 mg/dL [facility] Comment: Supplemental ranges: <140 mg/dL before meals <180 mg/dL all other times of the day Blood 01/22/2023 7:52 AM EDT 01/22/2023 7:52 AM EDT Chris Lim MD POINT OF CARE TEST O RDERABLES Performing Organization Address [facility]/ZIP Co de Phone Number [facility] [place] [address] * Differential, Automated (01/22/2023 2:42 AM EDT) Neutrophils % 73.7 % [facility] Neutr Abs (ANC) 6.10 1.70 - 6.10 x10(3)/[facility] Lymphocytes % 12.5 % [facility] Lymphocytes Abs 1.0 0.9 - 3.2 x10(3)/[facility] Monocytes % 8.8 % [facility] Monocyte Abs 0.7 0.3 - 0.9 x10(3)/[facility] Eosinophils % 4.1 % [facility] Eosinophils Abs 0.3 0.0 - 0.4 x10(3)/[facility] Basophils % 0.7 % [facility] Basophils Abs 0.1 0.0 - 0.1 x10(3)/[facility] Immature Gran % 0.20 % [facility] Comment: Immature granulocytes(IG's)percentage and absolute count will include metamyelocytes, myelocytes, and promyelocytes. Blood smears from CBCs yielding IG's will be scanned manually for concordance. If this scan disagrees with the automated IG or if promyelocytes are noted, a manual differential will be performed. Angelica Gran Abs 0.02 0.00 - 0.04 x10(3)/[facility] Blood 01/22/2023 2:42 AM EDT 01/22/2023 3:03 AM EDT Narrative Resulting Agency Comment Spec In Lab Kyle Mckeon MD HEMATOLOGY ORDERABLE S Performing Organization Address City/State/[facility] Co de Phone Number [facility] [place] [address] * (ABNORMAL) Hemogram (01/22/2023 2:42 AM EDT) WBC 8.3 4.0 - 9.5 x10(3)/[facility] RBC 3.41(L) 4.58 - 5.54 x10(6)/[facility] Hemoglobin 10.3(L) 13.7 - 16.5 g/dL [facility] Hematocrit 30.8(L) 40.5 - 48.5 % [facility] MCV 90.3 82.9 - 93.1 fL [facility] MCH 30.2 27.5 - 32.1 pg [facility] MCHC 33.4 32.0 - 35.7 g/dL [facility] Platelets 183 145 - 357 x10(3)/[facility] RDWSD 42.0 36.0 - 45.0 fL [facility] RDWCV 12.9 11.4 - 13.8 % [facility] MPV 12.1 7.6 - 12.9 fL [facility] nRBC % Auto 0.0 % [facility] nRBC Abs Auto 0.000 0.000 - 0.000 x10(3)/mcL [facility] Blood 01/22/2023 2:42 AM EDT 01/22/2023 3:03 AM EDT Narrative Resulting Agency Comment Spec In Lab Kyle Mckeon MD HEMATOLOGY ORDERABLE S Performing Organization Address [facility]/ZIP Co de Phone Number [facility] [place] [address] * (ABNORMAL) Phosphorus (01/22/2023 2:42 AM EDT) Phosphorus 5.8(H) 2.5 - 4.5 mg/dL [facility] Blood 01/22/2023 2:42 AM EDT 01/22/2023 3:03 AM EDT Narrative Resulting Agency Comment Spec In Lab Tanya Seaman MD CHEMISTRY ORDERABL ES Performing Organization Address [facility] Co de Phone Number [facility] [place] [address] * Magnesium (01/22/2023 2:42 AM EDT) Magnesium 0.97 0.69 - 1.07 mmol/L [facility] Blood 01/22/2023 2:42 AM EDT 01/22/2023 3:03 AM EDT Narrative Resulting Agency Comment Spec In Lab Tanya Seaman MD CHEMISTRY ORDERABL ES Performing Organization Address [facility]/ZIP Co de Phone Number [facility] [place] [address] * (ABNORMAL) Basic Metabolic Panel (non-fasting) (01/22/2023 2:42 AM EDT) Glucose Lvl 153 65 - 199 mg/dL [facility] Comment:Diabetes: >=200 mg/d L plus symptoms BUN 79(H) 10 - 20 mg/dL [facility] Creatinine 5.86(H) 0.80 - 1.50 mg/dL [facility] Sodium 138 135 - 145 mmol/L [facility] Potassium 4.2 3.5 - 5.0 mmol/L [facility] Comment: Please note: ??Patients with WBC >100,000 may have falsely elevated Potassium levels. ??For accurate Potassium quantification in these patients send serum separator tube (gold top) for subsequent determinations. ??Contact the Clinical Chemistry Laboratory if there are any questions. Chloride 104 98 - 107 mmol/L [facility] CO2 20(L) 22 - 31 mmol/L [facility] Anion Gap 14 5 - 15 mmol/L [facility] Calcium 9.2 8.5 - 10.5 mg/dL [facility] Estimated GFR 10(L) >=60 mL/min/1. 73 m?? [facility] Comment: This patient's estimated [...] Lab Tanya Seaman MD CHEMISTRY ORDERABL ES [facility] [place] [address] * C3 Complement (01/22/2023 2:42 AM EDT) C3 Complement 126 90 - 180 mg/dL [facility] Blood 01/22/2023 2:42 AM EDT 01/22/2023 3:03 AM EDT Narrative Resulting Agency Comment Spec In Lab Chris Lim MD CHEMISTRY ORDERABLES [facility] [place] [address] * POCT Glucose (01/21/2023 6:41 PM EDT) POC Glucose 199 65 - 199 mg/dL [facility] Comment: Supplemental ranges: <140 mg/dL before meals <180 mg/dL all other times of the day Blood 01/21/2023 6:41 PM EDT 01/21/2023 6:41 PM EDT Chris Lim MD POINT OF CARE TEST O RDERAMARCY Performing Organization Address [facility]/ZIP Co de Phone Number [facility] [place] [address] * POCT Glucose (01/21/2023 3:57 PM EDT) POC Glucose 125 65 - 199 mg/dL [facility] Comment: Supplemental ranges: <140 mg/dL before meals <180 mg/dL all other times of the day Blood 01/21/2023 3:57 PM EDT 01/21/2023 3:57 PM EDT Chris Lim MD POINT OF CARE TEST O RDERAMARCY Performing Organization Address City/[facility]/ZIP Co de Phone Number [facility] [place] [address] * (ABNORMAL) POCT Glucose (01/21/2023 11:32 AM EDT) POC Glucose 249(H) 65 - 199 mg/dL [facility] Comment: Supplemental ranges: <140 mg/dL before meals <180 mg/dL all other times of the day Blood 01/21/2023 11:3 2 AM EDT 01/21/2023 11:32 AM EDT Chris Lim MD POINT OF CARE TEST O TESSA Performing Organization Address [facility] de Phone Number [facility] [place] [address] * (ABNORMAL) POCT Glucose (01/21/2023 9:38 AM EDT) POC Glucose 233(H) 65 - 199 mg/dL [facility] Comment: Supplemental ranges: <140 mg/dL before meals <180 mg/dL all other times of the day Blood 01/21/2023 9:38 AM EDT 01/21/2023 9:38 AM EDT Chris Lim MD POINT OF CARE TEST Loco ZARATE Performing Organization Address [facility] de Phone Number [facility] [place] [address] * EKG 12 Lead (01/21/2023 8:33 AM EDT) Ventricular rate 74 BPM MUSE SYSTEM Atrial Rate 74 BPM MUSE SYSTEM P-R Interval 180 ms MUSE SYSTEM QRS Duration 126 ms MUSE SYSTEM Q-T Interval 454 ms MUSE SYSTEM QTC Calculated (Bezet) 503 ms MUSE SYSTEM Calculated P [place] 32 degrees MUSE SYSTEM Calculated R [place] -35 degrees MUSE SYSTEM Calculated T [place] 97 degrees MUSE SYSTEM INTERPRETATION Normal sinus rhythm Left axis deviation Non-specific intra-ventricu lar conduction block Nonspecific T wave abnormality Abnormal ECG When compared with ECG of 18-JAN-2023 18:52, No significant change was found Confirmed by fellow Lacey Oliveros ([id number]) on 01/23/2023 10:03:20 AM Confirmed by MD Gonzalez David ([id number]) on 01/24/2023 8:22:03 AM MUSE SYSTEM 01/21/2023 8:33 AM EDT 01/24/2023 8:22 AM EDT Tanya Seaman MD ECG ORDERABLES MUSE SYSTEM * POCT Glucose (01/21/2023 8:05 AM EDT) Pathologist [facility] POC Glucose 178 65 - 199 mg/dL [facility] Comment: Supplemental ranges: <140 mg/dL before meals <180 mg/dL all other times of the day Blood 01/21/2023 8:05 AM EDT 01/21/2023 8:05 AM EDT Chris Lim MD POINT OF CARE TEST O RDERABLES Performing Organization Address City/[facility]/ZIP Co de Phone Number [facility] [place] [address] * Differential, Automated (01/21/2023 2:42 AM EDT) Pathologist [facility] Neutrophils % 70.7 % [facility] Neutr Abs (ANC) 5.75 1.70 - 6.10 x10(3)/[facility] Lymphocytes % 14.5 % [facility] Lymphocytes Abs 1.2 0.9 - 3.2 x10(3)/[facility] Monocytes % 9.1 % [facility] Monocyte Abs 0.7 0.3 - 0.9 x10(3)/[facility] Eosinophils % 4.6 % [facility] Eosinophils Abs 0.4 0.0 - 0.4 x10(3)/[facility] Basophils % 0.7 % [facility] Basophils Abs 0.1 0.0 - 0.1 x10(3)/[facility] Immature Gran % 0.40 % [facility] Comment: Immature granulocytes(IG's)percentage and absolute count will include metamyelocytes, myelocytes, and promyelocytes. Blood smears from CBCs yielding IG's will be scanned manually for concordance. If this scan disagrees with the automated IG or if promyelocytes are noted, a manual differential will be performed. Angelica Gran Abs 0.03 0.00 - 0.04 x10(3)/[facility] Blood 01/21/2023 2:42 AM EDT 01/21/2023 2:59 AM EDT Narrative Resulting Agency Comment Spec In Lab Kyle Mckeon MD HEMATOLOGY ORDERABLE S [facility] [place] [address] * (ABNORMAL) Hemogram (01/21/2023 2:42 AM EDT) WBC 8.1 4.0 - 9.5 x10(3)/[facility] RBC 3.59(L) 4.58 - 5.54 x10(6)/[facility] Hemoglobin 11.1(L) 13.7 - 16.5 g/dL [facility] Hematocrit 32.4(L) 40.5 - 48.5 % [facility] MCV 90.3 82.9 - 93.1 fL [facility] MCH 30.9 27.5 - 32.1 pg [facility] MCHC 34.3 32.0 - 35.7 g/dL [facility] Platelets 202 145 - 357 x10(3)/[facility] RDWSD 42.5 36.0 - 45.0 fL [facility] RDWCV 12.8 11.4 - 13.8 % [facility] MPV 12.3 7.6 - 12.9 fL [facility] nRBC % Auto 0.0 % [facility] nRBC Abs Auto 0.000 0.000 - 0.000 x10(3)/mcL [facility] Blood 01/21/2023 2:42 AM EDT 01/21/2023 2:59 AM EDT Narrative Resulting Agency Comment Spec In Lab Kyle Mckeon MD HEMATOLOGY ORDERABLE S Performing Organization Address [facility]/ZIP Co de Phone Number [facility] [place] [address] * (ABNORMAL) Phosphorus (01/21/2023 2:42 AM EDT) Phosphorus 5.3(H) 2.5 - 4.5 mg/dL [facility] Blood 01/21/2023 2:42 AM EDT 01/21/2023 2:58 AM EDT Narrative Resulting Agency Comment Spec In Lab Tanya Seaman MD CHEMISTRY ORDERABL ES Performing Organization Address [facility] Co de Phone Number [facility] [place] [address] * Magnesium (01/21/2023 2:42 AM EDT) Magnesium 0.99 0.69 - 1.07 mmol/L [facility] Blood 01/21/2023 2:42 AM EDT 01/21/2023 2:58 AM EDT Narrative Resulting Agency Comment Spec In Lab Tanya Seaman MD CHEMISTRY ORDERABL ES Performing Organization Address [facility] Co de Phone Number [facility] [place] [address] * (ABNORMAL) Basic Metabolic Panel (non-fasting) (01/21/2023 2:42 AM EDT) Glucose Lvl 120 65 - 199 mg/dL [facility] Comment:Diabetes: >=200 mg/d L plus symptoms BUN 72(H) 10 - 20 mg/dL [facility] Creatinine 5.70(H) 0.80 - 1.50 mg/dL [facility] Sodium 140 135 - 145 mmol/L [facility] Potassium 4.2 3.5 - 5.0 mmol/L [facility] Comment: Please note: ??Patients with WBC >100,000 may have falsely elevated Potassium levels. ??For accurate Potassium quantification in these patients send serum separator tube (gold top) for subsequent determinations. ??Contact the Clinical Chemistry Laboratory if there are any questions. Chloride 100 98 - 107 mmol/L [facility] CO2 20(L) 22 - 31 mmol/L [facility] Anion Gap 20(H) 5 - 15 mmol/L [facility] Calcium 9.3 8.5 - 10.5 mg/dL [facility] Estimated GFR 10(L) >=60 mL/min/1. 73 m?? [facility] Comment: This patient's estimated [...] Lab Tanya Seaman MD CHEMISTRY ORDERABL ES [facility] [place] [address] * POCT Glucose (01/20/2023 7:45 PM EDT) POC Glucose 158 65 - 199 mg/dL [facility] Comment: Supplemental ranges: <140 mg/dL before meals <180 mg/dL all other times of the day Blood 01/20/2023 7:45 PM EDT 01/20/2023 7:45 PM EDT Chris Lim MD POINT OF CARE TEST O RDERABLES [facility] [place] [address] * POCT Glucose (01/20/2023 4:38 PM EDT) POC Glucose 96 65 - 199 mg/dL [facility] Comment: Supplemental ranges: <140 mg/dL before meals <180 mg/dL all other times of the day Blood 01/20/2023 4:38 PM EDT 01/20/2023 4:38 PM EDT Chris Lim MD POINT OF CARE TEST O RDERAMARCY Performing Organization Address [facility]/ZIP Co de Phone Number [facility] [place] [address] * POCT Glucose (01/20/2023 4:14 PM EDT) POC Glucose 101 65 - 199 mg/dL [facility] Comment: Supplemental ranges: <140 mg/dL before meals <180 mg/dL all other times of the day Blood 01/20/2023 4:14 PM EDT 01/20/2023 4:14 PM EDT Chris Lim MD POINT OF CARE TEST O RDERAMARCY Performing Organization Address City/[facility]/ZIP Co de Phone Number [facility] [place] [address] * Hepatitis C Antibody (01/20/2023 3:23 PM EDT) Hepatitis C Ab Negative Negative [facility] Blood 01/20/2023 3:23 PM EDT 01/20/2023 3:28 PM EDT Narrative Resulting Agency Comment Spec In Lab Austin Sosa MD IMMUNOLOGY ORDERABLE S Performing Organization Address City/[facility]/ZIP Co de Phone Number [facility] [place] [address] * Hepatitis B Core Antibody, Total (01/20/2023 3:23 PM EDT) Hep B Core Ab Negative Negative [facility] Blood 01/20/2023 3:23 PM EDT 01/20/2023 3:28 PM EDT Narrative Resulting Agency Comment Spec In Lab Chris Lim MD CHEMISTRY ORDERABLES Performing Organization Address [facility] Co de Phone Number [facility] [place] [address] * Hepatitis B Surface Antibody (01/20/2023 3:23 PM EDT) HepB Surface Ab Quant <3.5 IU/L [facility] Comment: HepB Surface Ab Quant: Unvaccinated: < 8.5 IU/L Vaccinated: >= 11.5 IU/L HepB Surface Ab Negative [facility] Comment: Patient is presumed to be not vaccinated or immune to HBV infection. Expected Results: Vaccinated: Positive Unvaccinated: Negative Blood 01/20/2023 3:23 PM EDT 01/20/2023 3:28 PM EDT Narrative Resulting Agency Comment Spec In Lab Chris Lim MD IMMUNOLOGY ORDERABLE S Performing Organization Address City/[facility]/ZIP Co de Phone Number [facility] [place] [address] * HIV Screen, 4th Generation (MC/CGP/APD/NLH) (01/20/2023 3:23 PM EDT) HIV-1/2 Ab and Ag Negative Negative [facility] Comment: This 4th Generation HIV test [...] HIV Comment Low Risk of HIV Infection [facility] Blood 01/20/2023 3:23 PM EDT 01/20/2023 3:28 PM EDT Narrative Resulting Agency Comment Spec In Lab Chris Lim MD IMMUNOLOGY ORDERABLE S Performing Organization Address [facility]/ZIP Co de Phone Number [facility] [place] [address] * (ABNORMAL) POCT Glucose (01/20/2023 11:33 AM EDT) POC Glucose 206(H) 65 - 199 mg/dL [facility] Comment: Supplemental ranges: <140 mg/dL before meals <180 mg/dL all other times of the day Blood 01/20/2023 11:3 3 AM EDT 01/20/2023 11:33 AM EDT Chris Lim MD POINT OF CARE TEST O RDERABLES Performing Organization Address [facility] Co de Phone Number [facility] [place] [address] * POCT Glucose (01/20/2023 7:24 AM EDT) POC Glucose 152 65 - 199 mg/dL [facility] Comment: Supplemental ranges: <140 mg/dL before meals <180 mg/dL all other times of the day Blood 01/20/2023 7:24 AM EDT 01/20/2023 7:24 AM EDT Chris Lim MD POINT OF CARE TEST O RDERABLES Performing Organization Address City/[facility]/ZIP Co de Phone Number [facility] [place] [address] * Immunoglobulins, Quantitative (01/20/2023 3:26 AM EDT) [facility] IgG 880 700 - 1,600 mg/dL [facility] Comment: Pediatric Reference Intervals obtained from the [employer]iper Reference Interval project. http://www.[employer].ca/caliperproject/index.html IgA 286 70 - 400 mg/dL [facility] IgM 72 40 - 230 mg/dL [facility] Blood Venous Draw / Unknown 01/20/2023 3:26 AM EDT 01/20/2023 3:44 AM EDT Narrative Resulting Agency Comment Spec In Lab Deonte Lugo MD CHEMISTRY ORDERABLE S Performing Organization Address [facility]/ZIP Co de Phone Number [facility] [place] [address] * Immunofixation Electrophoresis (01/20/2023 3:26 AM EDT) [facility] DOROTEO See Note [facility] Comment: No specific abnormality observed. Dr. Arnulfo Moore 01/23/2023 See scanned report. Blood Venous Draw / Unknown 01/20/2023 3:26 AM EDT 01/20/2023 3:44 AM EDT Narrative Resulting Agency Comment Spec In Lab Deonte Lugo MD CHEMISTRY ORDERABLE S Performing Organization Address City/[facility]/ZIP Co de Phone Number [facility] [place] [address] * Protein Electrophoresis, serum (01/20/2023 3:26 AM EDT) [facility] Total Prot Elec 6.5 6.1 - 8.0 g/dL [facility] Albumin Elect 4.11 3.20 - 5.20 g/dL [facility] Alpha1-Globulin 0.25 0.10 - 0.30 g/dL [facility] Alpha2-Globulin 0.75 0.40 - 0.90 g/dL [facility] Beta Globulin 0.68 0.50 - 1.00 g/dL [facility] Gamma Globulin 0.71 0.50 - 1.30 g/dL [facility] M1 Band Comments Below None Detected [facility] SPEP Comments See Note [facility] Comment: Serum protein electrophoresis (PEP) shows [...] MD CHEMISTRY ORDERABLE S Performing Organization Address [facility] Co de Phone Number [facility] [place] [address] * C4 Complement (01/20/2023 3:26 AM EDT) C4 Complement 31 10 - 40 mg/dL [facility] Blood Venous Draw / Unknown 01/20/2023 3:26 AM EDT 01/20/2023 3:44 AM EDT Narrative Resulting Agency Comment Spec In Lab Deonte Lugo MD CHEMISTRY ORDERABLE S Performing Organization Address City/[facility] Co de Phone Number [facility] [place] [address] * (ABNORMAL) Free Light Chains, Serum (01/20/2023 3:26 AM EDT) [place] Free Light Chain 8.16(H) 0.72 - 2.75 mg/dL [facility] Lambda Free Light Chain 4.53(H) 0.57 - 2.15 mg/dL [facility] [place] Lambda FLC Ratio 1.8013 0.4000 - 2.5800 [facility] Blood Venous Draw / Unknown 01/20/2023 3:26 AM EDT 01/20/2023 3:44 AM EDT Narrative Resulting Agency Comment Spec In Lab Deonte Lugo MD CHEMISTRY ORDERABLE S [facility] [place] [address] * Differential, Automated (01/20/2023 3:26 AM EDT) Neutrophils % 75.0 % [facility] Neutr Abs (ANC) 6.04 1.70 - 6.10 x10(3)/[facility] Lymphocytes % 12.2 % [facility] Lymphocytes Abs 1.0 0.9 - 3.2 x10(3)/[facility] Monocytes % 8.6 % [facility] Monocyte Abs 0.7 0.3 - 0.9 x10(3)/[facility] Eosinophils % 3.3 % [facility] Eosinophils Abs 0.3 0.0 - 0.4 x10(3)/[facility] Basophils % 0.7 % [facility] Basophils Abs 0.1 0.0 - 0.1 x10(3)/[facility] Immature Gran % 0.20 % [facility] Comment: Immature granulocytes(IG's)percentage and absolute count will include metamyelocytes, myelocytes, and promyelocytes. Blood smears from CBCs yielding IG's will be scanned manually for concordance. If this scan disagrees with the automated IG or if promyelocytes are noted, a manual differential will be performed. Angelica Gran Abs 0.02 0.00 - 0.04 x10(3)/[facility] Blood 01/20/2023 3:26 AM EDT 01/20/2023 3:42 AM EDT Narrative Resulting Agency Comment Spec In Lab Kyle Mckeon MD HEMATOLOGY ORDERABLE S [facility] [place] [address] * (ABNORMAL) Hemogram (01/20/2023 3:26 AM EDT) WBC 8.1 4.0 - 9.5 x10(3)/[facility] RBC 3.54(L) 4.58 - 5.54 x10(6)/[facility] Hemoglobin 10.8(L) 13.7 - 16.5 g/dL [facility] Hematocrit 32.5(L) 40.5 - 48.5 % [facility] MCV 91.8 82.9 - 93.1 [facility] MCH 30.5 27.5 - 32.1 pg [facility] MCHC 33.2 32.0 - 35.7 g/dL [facility] Platelets 202 145 - 357 x10(3)/[facility] RDWSD 42.9 36.0 - 45.0 [facility] RDWCV 12.7 11.4 - 13.8 % [facility] MPV 11.6 7.6 - 12.9 [facility] nRBC % Auto 0.0 % [facility] nRBC Abs Auto 0.000 0.000 - 0.000 x10(3)/[facility] Blood 01/20/2023 3:26 AM EDT 01/20/2023 3:42 AM EDT Narrative Resulting Agency Comment Spec In Lab Kyle Mckeon MD HEMATOLOGY ORDERABLE S [facility] [place] [address] * (ABNORMAL) Phosphorus (01/20/2023 3:26 AM EDT) Phosphorus 4.7(H) 2.5 - 4.5 mg/dL [facility] Blood 01/20/2023 3:26 AM EDT 01/20/2023 3:42 AM EDT Narrative Resulting Agency Comment Spec In Lab Tanya Seaman MD CHEMISTRY ORDERABL ES Performing Organization Address [facility] Co de Phone Number [facility] [place] [address] * Magnesium (01/20/2023 3:26 AM EDT) Magnesium 0.95 0.69 - 1.07 mmol/L [facility] Blood 01/20/2023 3:26 AM EDT 01/20/2023 3:42 AM EDT Narrative Resulting Agency Comment Spec In Lab Tanya Seaman MD CHEMISTRY ORDERABL ES Performing Organization Address [facility] Co de Phone Number [facility] [place] [address] * (ABNORMAL) Basic Metabolic Panel (non-fasting) (01/20/2023 3:26 AM EDT) Glucose Lvl 109 65 - 199 mg/dL [facility] Comment:Diabetes: >=200 mg/d L plus symptoms BUN 67(H) 10 - 20 mg/dL [facility] Creatinine 5.79(H) 0.80 - 1.50 mg/dL [facility] Sodium 139 135 - 145 mmol/L [facility] Potassium 4.5 3.5 - 5.0 mmol/L [facility] Comment: Please note: ??Patients with WBC >100,000 may have falsely elevated Potassium levels. ??For accurate Potassium quantification in these patients send serum separator tube (gold top) for subsequent determinations. ??Contact the Clinical Chemistry Laboratory if there are any questions. Chloride 102 98 - 107 mmol/L [facility] CO2 20(L) 22 - 31 mmol/L [facility] Anion Gap 17(H) 5 - 15 mmol/L [facility] Calcium 8.8 8.5 - 10.5 mg/dL [facility] Estimated GFR 10(L) >=60 mL/min/1. 73 m?? [facility] Comment: This patient's estimated [...] MD CHEMISTRY ORDERABL ES Performing Organization Address City/[facility]/ZIP Co de Phone Number [facility] [place] [address] * (ABNORMAL) Ferritin (01/20/2023 3:26 AM EDT) [facility] Signature Ferritin 478(H) 30 - 400 ng/mL [facility] Comment: [place] [facility] [place] interpret with [place]. Reference ranges for females greater than 50 years of age approach values for men, i.e., 30-400 ng/mL. Blood 01/20/2023 3:26 AM EDT 01/20/2023 3:42 AM EDT Narrative Resulting Agency Comment Spec In Lab Sixto Morrow MD CHEMISTRY ORDERABLES Performing Organization Address City/[facility]/ZIP Co de Phone Number [facility] [place] [address] * (ABNORMAL) Iron and TIBC (01/20/2023 3:26 AM EDT) Pathologist [facility] Iron 68 45 - 160 mcg/dL [facility] TIBC 229(L) 250 - 450 mcg/dL [facility] Iron Saturation 30 20 - 50 % [facility] Blood 01/20/2023 3:26 AM EDT 01/20/2023 3:42 AM EDT Narrative Resulting Agency Comment Spec In Lab Sixto Morrow MD CHEMISTRY ORDERABLES [facility] [place] [address] * (ABNORMAL) PTH (01/20/2023 3:26 AM EDT) [facility] PTH 401(H) 15 - 65 pg/mL [facility] Blood 01/20/2023 3:26 AM EDT 01/20/2023 3:42 AM EDT Narrative Resulting Agency Comment Spec In Lab Sixto Morrow MD CHEMISTRY ORDERABLES Performing Organization Address City/[facility]/ZIP Co de Phone Number [facility] [place] [address] * (ABNORMAL) Vitamin D, 25-Hydroxy (01/20/2023 3:26 AM EDT) [facility] 25-OH Vit D Total 9(L) 21 - 100 ng/mL [facility] 25-OH Vit D Interp Deficient [facility] Blood 01/20/2023 3:26 AM EDT 01/20/2023 3:42 AM EDT Narrative Resulting Agency Comment Spec In Lab Sitxo Morrow MD CHEMISTRY ORDERABLES [facility] [place] [address] * POCT Glucose (01/19/2023 9:33 PM EDT) POC Glucose 112 65 - 199 mg/dL [facility] Comment: Supplemental ranges: <140 mg/dL before meals <180 mg/dL all other times of the day Blood 01/19/2023 9:33 PM EDT 01/19/2023 9:33 PM EDT Chris Lim MD POINT OF CARE TEST O TESSA Performing Organization Address [facility] Co de Phone Number [facility] [place] [address] * POCT Glucose (01/19/2023 4:37 PM EDT) POC Glucose 175 65 - 199 mg/dL [facility] Comment: Supplemental ranges: <140 mg/dL before meals <180 mg/dL all other times of the day Blood 01/19/2023 4:37 PM EDT 01/19/2023 4:37 PM EDT Chris Lim MD POINT OF CARE TEST O TESSA Performing Organization Address [facility] Co de Phone Number [facility] [place] [address] * (ABNORMAL) Basic Metabolic Panel (non-fasting) (01/19/2023 2:15 PM EDT) Glucose Lvl 206(H) 65 - 199 mg/dL [facility] Comment:Diabetes: >=200 mg/d L plus symptoms BUN 59(H) 10 - 20 mg/dL [facility] Creatinine 5.69(H) 0.80 - 1.50 mg/dL [facility] Sodium 140 135 - 145 mmol/L [facility] Potassium 4.4 3.5 - 5.0 mmol/L [facility] Comment: Please note: ??Patients with WBC >100,000 may have falsely elevated Potassium levels. ??For accurate Potassium quantification in these patients send serum separator tube (gold top) for subsequent determinations. ??Contact the Clinical Chemistry Laboratory if there are any questions. Chloride 102 98 - 107 mmol/L [facility] CO2 22 22 - 31 mmol/L [facility] Anion Gap 16(H) 5 - 15 mmol/L [facility] Calcium 9.3 8.5 - 10.5 mg/dL [facility] Estimated GFR 10(L) >=60 mL/min/1. 73 m?? [facility] Comment: This patient's estimated [...] MD CHEMISTRY ORDERABL ES Performing Organization Address City/[facility]/ZIP Co de Phone Number [facility] [place] [address] * POCT Glucose (01/19/2023 11:31 AM EDT) POC Glucose 96 65 - 199 mg/dL [facility] Comment: Supplemental ranges: <140 mg/dL before meals <180 mg/dL all other times of the day Blood 01/19/2023 11:3 1 AM EDT 01/19/2023 11:31 AM EDT Chris Lim MD POINT OF CARE TEST O RDERABLES Performing Organization Address City/[facility]/ZIP Co de Phone Number [facility] [place] [address] * (ABNORMAL) Basic Metabolic Panel (non-fasting) (01/19/2023 10:29 AM EDT) Glucose Lvl 87 65 - 199 mg/dL [facility] Comment:Diabetes: >=200 mg/d L plus symptoms BUN 60(H) 10 - 20 mg/dL [facility] Creatinine 5.63(H) 0.80 - 1.50 mg/dL [facility] Sodium 143 135 - 145 mmol/L [facility] Potassium 4.4 3.5 - 5.0 mmol/L [facility] Comment: Please note: ??Patients with WBC >100,000 may have falsely elevated Potassium levels. ??For accurate Potassium quantification in these patients send serum separator tube (gold top) for subsequent determinations. ??Contact the Clinical Chemistry Laboratory if there are any questions. Chloride 107 98 - 107 mmol/L [facility] CO2 21(L) 22 - 31 mmol/L [facility] Anion Gap 15 5 - 15 mmol/L [facility] Calcium 9.1 8.5 - 10.5 mg/dL [facility] Estimated GFR 10(L) >=60 mL/min/1. 73 m?? [facility] Comment: This patient's estimated [...] Lab Tanya Seaman MD CHEMISTRY ORDERABL ES [facility] [place] [address] * ECHO COMPLETE W CONTRAST (01/19/2023 8:59 AM EDT) Anatomical Region Laterality Modality Cardiac Other 01/19/2023 6:52 AM EDT Narrative 01/19/2023 11:43 AM EDT ? Echocardiogram Report Name: MIGUEL SANCHEZ ? Study Date: 01/19/2023 06:52 AMBP: 142/82 mmHg ? Patient Location: [id number] 0367 A : 1955 ? Height: 165 cm ? Account: [id number] Age: 67 yrs ? Weight: 110 kg Gender: Male ?BSA: 2.1 m2 Ordering Physician: TANYA SEAMAN Referring Physician: ELHAM DYKES Performed By: Cathleen Ware RDCS Reason For Study: Heart failure Interpreting Fellow: Martin Reyes. Exam Location: [facility]. Interpretation Summary Left ventricle is mildly dilated [...] ventricular systolic function has further decreased. Procedure Complete-[id number]. Satisfactory quality. Left Ventricle Left ventricle is [...] Date: 306:52 AMBP: 142/82 mmHg Patient Location: [address] : 1955 Height: 165 cm Account: [id number] Age: 67 yrs Weight: 110 kg Gender: Male BSA: 2.1 m2 Ordering Physician: TANYA SEAMAN Referring Physician: ELHAM DYKES Performed By: Cathleen Ware RDCS Reason For Study: Heart failure Interpreting Fellow: Martin Reyes. Exam Location: [facility]. Interpretation Summary Left ventricle is mildly dilated [...] left ventricular systolicfunction has further decreased. Procedure Complete-[id number]. Satisfactory quality. Left Ventricle Left ventricle is [...] bladder.. Electronically signed by: Jimmie العراقي MD, [facility] ([phone]), at 01/19/2023 8:39 AM Thank you for letting us participate in the care of this patient. If you are a health care provider and have any questions regarding this report, please contact the number above. For patients who have questions, please contact the health nurse behavioral health care that requested your imaging first. ?Jimmie العراقي, Staff Physician Electronically Signed Final Report ?? 01/19/2023 08:47 am Narrative 01/19/2023 8:47 AM EDT Renal ? (Signed Final 01/19/2023 08:47 am) PATIENT INFO: ID #: ? [id number] ?: ??[birth year] (67 yrs)(M) Name: ? MIGUEL SANCHEZ ? Visit Date: 01/19/2023 08:27 am PERFORMED BY: Attending: ?Malcom OTT, Jimmie Perez Performed By: ? Kary Iqbal RDMS Referred By: ?TANYA QUEZADAMICHELLE Location: ? [place] SERVICE(S) PROVIDED: URETRO - Retroperitoneal Complete - [id number] ? [id number] INDICATIONS: New CLEM of unclear etiology RIGHT [...] 01/19/2023 08:47 am) PATIENT INFO: ID #: [id number] : [birth year] (67 yrs)(M) Name: MIGUEL SANCHEZ Visit Date: 01/19/2023 08:27 am PERFORMED BY: Attending: Jimmie العراقي MD Performed By: Kary Iqbal RDMS Referred By: TANYA SEAMAN Location: [place] SERVICE(S) PROVIDED: URETRO - Retroperitoneal Complete - [id number] INDICATIONS: New CLEM of unclear etiology RIGHT [...] bladder.. Electronically signed by: Jimmie العراقي MD, [facility] ([phone]), at 01/19/2023 8:39 AM Thank you for letting us participate in the care of this patient. If you are a health care provider and have any questions regarding this report, please contact the number above. For patients who have questions, please contact the health nurse behavioral health care that requested your imaging first. Jimmie العراقي, Staff Physician Electronically Signed Final Report 01/19/2023 08:47 am Tanya Seaman MD IM US GEN ORDERAB LES * POCT Glucose (01/19/2023 8:00 AM EDT) POC Glucose 92 65 - 199 mg/dL [facility] Comment: Supplemental ranges: <140 mg/dL before meals <180 mg/dL all other times of the day Blood 01/19/2023 8:00 AM EDT 01/19/2023 8:00 AM EDT Tanya Seaman MD POINT OF CARE TEST ORDERABLES [facility] [place] [address] * POCT Glucose (01/19/2023 7:42 AM EDT) POC Glucose 87 65 - 199 mg/dL [facility] Comment: Supplemental ranges: <140 mg/dL before meals <180 mg/dL all other times of the day Blood 01/19/2023 7:42 AM EDT 01/19/2023 7:42 AM EDT Tanya Seaman MD POINT OF CARE TEST ORDERABLES [facility] [place] [address] * (ABNORMAL) Basic Metabolic Panel (non-fasting) (01/19/2023 6:21 AM EDT) Glucose Lvl 80 65 - 199 mg/dL [facility] Comment:Diabetes: >=200 mg/d L plus symptoms BUN 58(H) 10 - 20 mg/dL [facility] Creatinine 5.52(H) 0.80 - 1.50 mg/dL [facility] Sodium 143 135 - 145 mmol/L [facility] Potassium 4.3 3.5 - 5.0 mmol/L [facility] Comment: Please note: ??Patients with WBC >100,000 may have falsely elevated Potassium levels. ??For accurate Potassium quantification in these patients send serum separator tube (gold top) for subsequent determinations. ??Contact the Clinical Chemistry Laboratory if there are any questions. Chloride 107 98 - 107 mmol/L [facility] CO2 21(L) 22 - 31 mmol/L [facility] Anion Gap 15 5 - 15 mmol/L [facility] Calcium 8.9 8.5 - 10.5 mg/dL [facility] Estimated GFR 11(L) >=60 mL/min/1. 73 m?? [facility] Comment: This patient's estimated [...] MD CHEMISTRY ORDERABL ES Performing Organization Address [facility]/ZIP Co de Phone Number [facility] [place] [address] * CK (01/19/2023 1:50 AM EDT) CK, Total 70 0 - 200 unit/L [facility] Blood Venous Draw / Unknown 01/19/2023 1:50 AM EDT 01/19/2023 1:55 AM EDT Narrative Resulting Agency Comment Spec In Lab Kyle Mckeon MD CHEMISTRY ORDERABLES Performing Organization Address [facility] Co de Phone Number [facility] [place] [address] * Differential, Automated (01/19/2023 1:50 AM EDT) Neutrophils % 73.8 % [facility] Neutr Abs (ANC) 5.75 1.70 - 6.10 x10(3)/[facility] Lymphocytes % 13.8 % [facility] Lymphocytes Abs 1.1 0.9 - 3.2 x10(3)/[facility] Monocytes % 8.5 % [facility] Monocyte Abs 0.7 0.3 - 0.9 x10(3)/[facility] Eosinophils % 3.0 % [facility] Eosinophils Abs 0.2 0.0 - 0.4 x10(3)/[facility] Basophils % 0.6 % [facility] Basophils Abs 0.0 0.0 - 0.1 x10(3)/[facility] Immature Gran % 0.30 % [facility] Comment: Immature granulocytes(IG's)percentage and absolute count will include metamyelocytes, myelocytes, and promyelocytes. Blood smears from CBCs yielding IG's will be scanned manually for concordance. If this scan disagrees with the automated IG or if promyelocytes are noted, a manual differential will be performed. Angelica Gran Abs 0.02 0.00 - 0.04 x10(3)/[facility] Blood 01/19/2023 1:50 AM EDT 01/19/2023 1:54 AM EDT Narrative Resulting Agency Comment Spec In Lab Kyle Mckeon MD HEMATOLOGY ORDERABLE S [facility] [place] [address] * (ABNORMAL) Hemogram (01/19/2023 1:50 AM EDT) WBC 7.8 4.0 - 9.5 x10(3)/[facility] RBC 3.25(L) 4.58 - 5.54 x10(6)/[facility] Hemoglobin 10.1(L) 13.7 - 16.5 g/dL [facility] Hematocrit 30.3(L) 40.5 - 48.5 % [facility] MCV 93.2(H) 82.9 - 93.1 fL [facility] MCH 31.1 27.5 - 32.1 pg [facility] MCHC 33.3 32.0 - 35.7 g/dL [facility] Platelets 173 145 - 357 x10(3)/[facility] RDWSD 44.6 36.0 - 45.0 [facility] RDWCV 13.0 11.4 - 13.8 % [facility] MPV 11.5 7.6 - 12.9 [facility] nRBC % Auto 0.0 % [facility] nRBC Abs Auto 0.000 0.000 - 0.000 x10(3)/[facility] Blood 01/19/2023 1:50 AM EDT 01/19/2023 1:54 AM EDT Narrative Resulting Agency Comment Spec In Lab Kyle Mckeon MD HEMATOLOGY ORDERABLE S Performing Organization Address City/[facility]/ZIP Co de Phone Number [facility] [place] [address] * Phosphorus (01/19/2023 1:50 AM EDT) Phosphorus 4.3 2.5 - 4.5 mg/dL [facility] Blood 01/19/2023 1:50 AM EDT 01/19/2023 1:54 AM EDT Narrative Resulting Agency Comment Spec In Lab Tanya Seaman MD CHEMISTRY ORDERABL ES Performing Organization Address [facility] Co de Phone Number [facility] [place] [address] * Magnesium (01/19/2023 1:50 AM EDT) Magnesium 0.80 0.69 - 1.07 mmol/L [facility] Blood 01/19/2023 1:50 AM EDT 01/19/2023 1:54 AM EDT Narrative Resulting Agency Comment Spec In Lab Tanya Seaman MD CHEMISTRY ORDERABL ES Performing Organization Address City/[facility]/ZIP Co de Phone Number [facility] [place] [address] * (ABNORMAL) Basic Metabolic Panel (non-fasting) (01/19/2023 1:50 AM EDT) Glucose Lvl 78 65 - 199 mg/dL [facility] Comment:Diabetes: >=200 mg/d L plus symptoms BUN 54(H) 10 - 20 mg/dL [facility] Creatinine 5.50(H) 0.80 - 1.50 mg/dL [facility] Sodium 143 135 - 145 mmol/L [facility] Potassium 4.3 3.5 - 5.0 mmol/L [facility] Comment: Please note: ??Patients with WBC >100,000 may have falsely elevated Potassium levels. ??For accurate Potassium quantification in these patients send serum separator tube (gold top) for subsequent determinations. ??Contact the Clinical Chemistry Laboratory if there are any questions. Chloride 107 98 - 107 mmol/L [facility] CO2 22 22 - 31 mmol/L [facility] Anion Gap 14 5 - 15 mmol/L [facility] Calcium 8.9 8.5 - 10.5 mg/dL [facility] Estimated GFR 11(L) >=60 mL/min/1. 73 m?? [facility] Comment: This patient's estimated [...] Lab Tanya Seaman MD CHEMISTRY ORDERABL ES [facility] [place] [address] * POCT Glucose (01/19/2023 1:46 AM EDT) Pathologist [facility] POC Glucose 75 65 - 199 mg/dL [facility] Comment: Supplemental ranges: <140 mg/dL before meals <180 mg/dL all other times of the day Blood 01/19/2023 1:46 AM EDT 01/19/2023 1:46 AM EDT Tanya Seaman MD POINT OF CARE TEST ORDERABLES Performing Organization Address [facility] Co de Phone Number [facility] [place] [address] * (ABNORMAL) Blood Gas Venous ([facility]) (01/18/2023 10:20 PM EDT) [facility] pH William 7.37 7.32 - 7.42 [facility] pCO2 William 38(L) 41 - 51 mmHg [facility] pO2 William 30 25 - 40 mmHg [facility] HCO3 William 21.7 mmol/L [facility] BE William -3.7 mmol/L [facility] Hgb Blood Gas Not Perf 13.7 - 16.5 g/dL [facility] O2HB William Not Perf % [facility] COHB William Not Perf % [facility] Comment: Nonsmokers: 0.5-1.5% COHB Smokers: Variable, but usually less than 10% Toxic: 20-30% COHB Lethal: Greater than 60% COHB METHB William Not Perf <=1.5 % [facility] Na Whole Blood 140 135 - 145 mmol/L [facility] K Whole Blood 4.5 3.5 - 5.0 mmol/L [facility] Comment: Please note: Patients with WBC >100,000 may have falsely elevated Potassium levels. Contact the Clinical Chemistry Laboratory if there are any questions. ICa Whole Blood 1.14(L) 1.15 - 1.33 mmol/L [facility] Comment: Note: ??Total bilirubin higher than 20 mg/dL may lead to falsely low ionized calcium. CL Whole Blood 109(H) 98 - 107 mmol/L [facility] Gluc Whole Bld 73 65 - 199 mg/dL [facility] Comment:Diabetes: >=200 mg/d L plus symptoms Lactate WB 1.3 0.5 - 2.2 mmol/L [facility] BGas Source Venous [facility] Blood Venous Draw / Unknown 01/18/2023 10:20 PM EDT 01/18/2023 10:26 PM EDT Narrative Resulting Agency Comment Spec In Lab Kyle Mckeon MD CHEMISTRY ORDERABLES [facility] [place] [address] * (ABNORMAL) Basic Metabolic Panel (non-fasting) (01/18/2023 10:16 PM EDT) Glucose Lvl 74 65 - 199 mg/dL [facility] Comment:Diabetes: >=200 mg/d L plus symptoms BUN 60(H) 10 - 20 mg/dL [facility] Creatinine 5.81(H) 0.80 - 1.50 mg/dL [facility] Sodium 145 135 - 145 mmol/L [facility] Potassium 4.8 3.5 - 5.0 mmol/L [facility] Comment: Please note: ??Patients with WBC >100,000 may have falsely elevated Potassium levels. ??For accurate Potassium quantification in these patients send serum separator tube (gold top) for subsequent determinations. ??Contact the Clinical Chemistry Laboratory if there are any questions. Chloride 109(H) 98 - 107 mmol/L [facility] CO2 Not Perf [facility] Comment:Add-on request. Samp le too old to perform test. Anion Gap Unable to Calculate 5 - 15 mmol/L [facility] Calcium 9.2 8.5 - 10.5 mg/dL [facility] Estimated GFR 10(L) >=60 mL/min/1 .73 m?? [facility] Comment: This patient's estimated [...] In Lab Kyle Mckeon MD CHEMISTRY ORDERABLES [facility] [place] [id number] * (ABNORMAL) Differential, Automated (01/18/2023 10:16 PM EDT) Neutrophils % 78.0 % [facility] Neutr Abs (ANC) 5.41 1.70 - 6.10 x10(3)/mc L [facility] Lymphocytes % 11.5 % [facility] Lymphocytes Abs 0.8(L) 0.9 - 3.2 x10(3)/mc L [facility] Monocytes % 6.6 % [facility] Monocyte Abs 0.5 0.3 - 0.9 x10(3)/mc L [facility] Eosinophils % 3.0 % [facility] Eosinophils Abs 0.2 0.0 - 0.4 x10(3)/mc L [facility] Basophils % 0.6 % [facility] Basophils Abs 0.0 0.0 - 0.1 x10(3)/[facility] Immature Gran % 0.30 % [facility] Comment: Immature granulocytes(IG's)percentage and absolute count will include metamyelocytes, myelocytes, and promyelocytes. Blood smears from CBCs yielding IG's will be scanned manually for concordance. If this scan disagrees with the automated IG or if promyelocytes are noted, a manual differential will be performed. Angelica Gran Abs 0.02 0.00 - 0.04 x10(3)/[facility] Blood 01/18/2023 10:1 6 PM EDT 01/18/2023 10:27 PM EDT Narrative Resulting Agency Comment Spec In Lab Kyle Mckeon MD HEMATOLOGY ORDERABLE S [facility] [place] [address] * (ABNORMAL) Hemogram (01/18/2023 10:16 PM EDT) WBC 6.9 4.0 - 9.5 x10(3)/[facility] RBC 3.30(L) 4.58 - 5.54 x10(6)/[facility] Hemoglobin 10.1(L) 13.7 - 16.5 g/dL [facility] Hematocrit 31.0(L) 40.5 - 48.5 % [facility] MCV 93.9(H) 82.9 - 93.1 fL [facility] MCH 30.6 27.5 - 32.1 pg [facility] MCHC 32.6 32.0 - 35.7 g/dL [facility] Platelets 196 145 - 357 x10(3)/[facility] RDWSD 44.9 36.0 - 45.0 fL [facility] RDWCV 13.1 11.4 - 13.8 % [facility] MPV 11.4 7.6 - 12.9 fL [facility] nRBC % Auto 0.0 % [facility] nRBC Abs Auto 0.000 0.000 - 0.000 x10(3)/mcL [facility] Blood 01/18/2023 10:1 6 PM EDT 01/18/2023 10:27 PM EDT Narrative Resulting Agency Comment Spec In Lab Kyle Mckeon MD HEMATOLOGY ORDERABLE S Performing Organization Address [facility] de Phone Number [facility] [place] [address] * Salicylate (01/18/2023 10:16 PM EDT) Salicylate Lvl 3 mg/L [facility] Comment: Therapeutic Range: ??< 200 mg/L [...] ORDERABL ES Performing Organization Address [facility] de Phone Number [facility] [place] [address] * (ABNORMAL) Acetaminophen level (01/18/2023 10:16 PM EDT) Acetamin Lvl <5(L) 5 - 30 mg/L [facility] Comment: Levels >150 mg/L at 4 hours post ingestion are often an indication for N-Acetylcysteine. Blood 01/18/2023 10:1 6 PM EDT 01/18/2023 10:27 PM EDT Narrative Resulting Agency Comment Spec In Lab Tanya Seaman MD CHEMISTRY ORDERABL ES Performing Organization Address [facility] Co de Phone Number [facility] [place] [address] * Phosphorus (01/18/2023 10:16 PM EDT) Phosphorus 4.2 2.5 - 4.5 mg/dL [facility] Blood 01/18/2023 10:1 6 PM EDT 01/18/2023 10:27 PM EDT Narrative Resulting Agency Comment Spec In Lab Tanya Seaman MD CHEMISTRY ORDERABL ES Performing Organization Address [facility] de Phone Number [facility] [place] [address] * Magnesium (01/18/2023 10:16 PM EDT) Magnesium 0.87 0.69 - 1.07 mmol/L [facility] Blood 01/18/2023 10:1 6 PM EDT 01/18/2023 10:27 PM EDT Narrative Resulting Agency Comment Spec In Lab Tanya Seaman MD CHEMISTRY ORDERABL ES Performing Organization Address [facility] de Phone Number [facility] [place] [address] * APTT (01/18/2023 10:16 PM EDT) PTT 35 25 - 37 sec [facility] Comment: The PTT is NOT appropriate for heparin monitoring. Use the Anti-Xa level for heparin monitoring (HEP UFH) or LMWH monitoring (HEP LMW). A PTT less than 37 seconds generally indicates adequate hemostasis. Blood 01/18/2023 10:1 6 PM EDT 01/18/2023 10:27 PM EDT Narrative Resulting Agency Comment Spec In Lab Tanya Seaman MD HEMATOLOGY ORDERAB LES Performing Organization Address [facility]/ZIP Co de Phone Number [facility] [place] [address] * (ABNORMAL) Prothrombin Time (01/18/2023 10:16 PM EDT) PT 14.3(H) 9.4 - 12.5 sec [facility] INR 1.3 [facility] Comment: An INR <2.0 indicates [...] MD HEMATOLOGY ORDERAB LES Performing Organization Address [facility] Co de Phone Number [facility] [place] [address] * (ABNORMAL) Hemoglobin A1c (01/18/2023 10:16 PM EDT) Pathologist [facility] Hemoglobin A1C 5.7(H) 4.3 - 5.6 % [facility] Comment: Reference Range: 4.3 - 5.6% [...] Mellitus, Diabetes Care 2013; 36: Suppl. 1, H07-61 Est Avg Gluc 117 mg/dL [facility] Comment: eAG equivalents for HbA1c [...] into estimated average glucose values. ??Diabetes Care 2008:31(8):2015-6558. Blood 01/18/2023 10:1 6 PM EDT 01/18/2023 10:27 PM EDT Narrative Resulting Agency Comment Spec In Lab Tanya Seaman MD CHEMISTRY ORDERABL ES Performing Organization Address [facility] Phone Number [facility] [place] [address] * TSH [place] (01/18/2023 10:16 PM EDT) TSH 2.03 0.27 - 4.20 mcIU/mL [facility] Comment: Reference Interval (mcIU/mL): Females: ??First Trimester: 0.23-3.88 ??Second Trimester: 0.22-3.90 ??Third Trimester: 0.44-4.66 Blood 01/18/2023 10:1 6 PM EDT 01/18/2023 10:27 PM EDT Narrative Resulting Agency Comment Spec In Lab Tanya Seaman MD CHEMISTRY ORDERABL ES Performing Organization Address City/State/[facility] Co de Phone Number [facility] [place] [address] * LDL Cholesterol, Direct (01/18/2023 10:16 PM EDT) LDL Chol Direct 65 mg/dL [facility] Comment: Lowest Risk: <100 mg/dL Lower Risk: 100-129 mg/dL Borderline High Risk: 130-159 mg/dL High Risk: 160-189 mg/dL Very High Risk: >et=807 mg/dL Blood 01/18/2023 10:1 6 PM EDT 01/18/2023 10:27 PM EDT Narrative Resulting Agency Comment Spec In Lab Tanya Seaman MD CHEMISTRY ORDERABL ES Performing Organization Address [facility] Co de Phone Number [facility] [place] [address] * HDL/Cholesterol Profile (01/18/2023 10:16 PM EDT) Chol, Total 122 mg/dL [facility] Comment: Lower Risk: <200 mg/dL Average Risk: 200-239 mg/dL Higher Risk: >xi=998 mg/dL HDL 27 mg/dL [facility] Comment: Males: ?? Higher Risk: <40 mg/dL Females: ?? Higher Risk: <50 mg/dL Chol/HDL Ratio 4.5 ratio [facility] Chol/HDL Interpretation See Note [facility] Comment: Lipid management should be guided by a patient? s ASCVD risk, goals and preferences. ACC/AHA Guidelines recommend high intensity statin if clinical ASCVD or LDL greater than or equal to 190 mg/dL. http://tinyurl.com/HET-YDE-Wzzkemqou Measure LDL if Total Cholesterol minus HDL Cholesterol is greater than 220 mg/dL. Adults aged 40-75 with LDL 70-189 mg/dL should have their 10 year ASCVD risk estimated with the ACC/AHA ASCVD risk nutritional health coach http://tools.acc.org/QXFXG-Hsfs-Zwegiymmy/ Statin should be discussed if risk greater [...] Lab Tanya Seaman MD CHEMISTRY ORDERABL ES [facility] [place] [address] * (ABNORMAL) Troponin (01/18/2023 10:16 PM EDT) Troponin-T HS 78(H) <=22 ng/L [facility] Comment: This patient's troponin T [...] troponin value can be found in the [facility] Laboratory Test Catalog Troponin - [facility] Laboratory Test Catalog Reference: Fourth Charlo Definition of Myocardial Infarction. Journal of the [place] [employer] 2018;72:4656-6933 Blood 01/18/2023 10:1 6 PM EDT 01/18/2023 10:27 PM EDT Narrative Resulting Agency Comment Spec In Lab Tanya Seaman MD CHEMISTRY ORDERABL ES Performing Organization Address [facility]/ZIP Co de Phone Number [facility] [place] [address] * (ABNORMAL) Protein/Creatinine Ratio, urine (01/18/2023 10:13 PM EDT) U Creatinine 41 mg/dL [facility] U Protein Ran 200(H) 0 - 12 mg/dL [facility] Prot/Cre Ratio 4.9 ratio [facility] Urine Urine / Unknown 01/18/2023 1 0:13 PM EDT 01/18/2023 10:29 PM EDT Narrative Resulting Agency Comment Spec In Lab Deonte Lugo MD URINE ORDERABLES Performing Organization Address [facility]/ZIP Co de Phone Number [facility] [place] [address] * Urine culture (01/18/2023 10:13 PM EDT) Pathologist [facility] Urine Culture No growth (Less than 1,000 cfu/ml). [facility] Indwelling Catheter Urine 01/18/2023 10:13 PM EDT 01/18/2023 11:08 PM EDT Narrative Resulting Agency Comment Spec In Lab Kyle Mckeon MD MICROBIOLOGY - GENER AL ORDERABLES Performing Organization Address [facility]/ZIP Co de Phone Number [facility] [place] [address] * (ABNORMAL) Urinalysis Microscopic Exam (01/18/2023 10:13 PM EDT) RBC UA >100(H) 0 - 3 /HPF [facility] WBC UA 10(H) 0 - 3 /HPF [facility] Squam Epith UA 5(H) <=4 /HPF [facility] Hyaline Cast UA 2 0 - 2 /LPF [facility] Indwelling Catheter Urine 01/18/2023 10:13 PM EDT 01/18/2023 10:22 PM EDT Narrative Resulting Agency Comment Spec In Lab Kyle Mckeon MD URINE ORDERABLES [facility] [place] [address] * Rapid Drug Screen w/ Confirmation, Urine (01/18/2023 10:13 PM EDT) U Barbiturates Screen None Detected None Detected [facility] Comment: The barbiturate screen detects barbiturates [...] U Benzodiazepines Screen None Detected None Detected [facility] Comment: The benzodiazepines screen detects benzodiazepines [...] U Cocaine Screen None Detected None Detected [facility] Comment: The cocaine metabolites screen detects benzoylecgonine (Cocaine Metabolite) at concentrations >150 ng/mL. A ? Presumptive Positive? result indicates that the screening result was positive but has not yet been confirmed by a highly-specific method. As with any screen, occasional false positive results from cross-reacting substances may occur. Not for Medico-Legal Purposes. U Methadone Metabolites Screen None Detected None Detected [facility] Comment: The methadone metabolite screen detects EDDP (major methadone metabolite) at concentrations >100 ng/mL. A ? Presumptive Positive? result indicates that the screening result was positive but has not yet been confirmed by a highly-specific method. As with any screen, occasional false positive results from cross-reacting substances may occur. Not for Medico-Legal Purposes. U Opiate Screen None Detected None Detected [facility] Comment: The opiates screen detects opiates [...] U Cannabinoid Screen None Detected None Detected [facility] Comment: The marijuana metabolites screen detects the THC metabolite (57-nnm-8-carboxy-delta 9-THC) at concentrations >20 ng/mL. A ? Presumptive Positive? result indicates that the screening result was positive but has not yet been confirmed by a highly-specific method. As with any screen, occasional false positive results from cross-reacting substances may occur. Not for Medico-Legal Purposes. U Oxycodone Screen None Detected None Detected [facility] Comment: The oxycodone screen detects oxycodone and oxymorphone at concentrations >100 ng/mL. A ? Presumptive Positive? result indicates that the screening result was positive but has not yet been confirmed by a highly-specific method. As with any screen, occasional false positive results from cross-reacting substances may occur. Not for Medico-Legal Purposes. U Buprenorphine Screen None Detected None Detected [facility] Comment: The buprenorphine screen detects buprenorphine [...] characteristics of this test were determined by [facility] in accordance with CLIA requirements. This laboratory is qualified under CLIA to perform high-complexity testing. U Fentanyl Screen None Detected None Detected [facility] Comment: The fentanyl screen detects fentanyl [...] characteristics of this test were determined by [facility] in accordance with CLIA requirements. This laboratory is qualified under CLIA to perform high-complexity testing. U Tricyclics Screen None Detected None Detected [facility] Comment: The tricyclics screen detects tricyclic [...] characteristics of this test were determined by [facility] in accordance with CLIA requirements. This laboratory is qualified under CLIA to perform high-complexity testing. U Ethanol Screen None Detected None Detected [facility] Comment:This urine ethanol a ssay detects ethanol at concentrations >/= 100 mg/L. U Amphetamines Screen None Detected None Detected [facility] Comment: The amphetamine screen detects d-amphetamine and d-methamphetamine at concentrations >300 ng/mL. A ? Presumptive Positive? result indicates that the screening result was positive but has not yet been confirmed by a highly-specific method. As with any screen, occasional false positive results from cross-reacting substances may occur. Not for Medico-Legal Purposes. U Creat HEATHER 42 >=20 mg/dL [facility] U Chromate HEATHER <2.0 <=49.9 mg/L [facility] U Nitrite HEATHER <50 <=499 mg/L [facility] U Oxidant HEATHER 6 <=199 mg/L [facility] U pH HEATHER 6.0 3.0 - 10.9 [facility] U Adulterants Screen None Detected None Detected [facility] Comment:No adulteration of t his urine sample was detected. Urine 01/18/2023 10:1 3 PM EDT 01/18/2023 10:22 PM EDT Narrative Resulting Agency Comment Spec In Lab Kyle Mckeon MD CHEMISTRY ORDERABLES Performing Organization Address City/[facility]/ZIP Co de Phone Number [facility] [place] [address] * Rapid Drug Screen, Urine (HEATHER Request) (01/18/2023 10:13 PM EDT) HEATHER Conf Requested Yes [facility] HEATHER Requested See Comment [facility] Comment:Refer to Rapid Drug Screen w/ Confirmation, Urine for results. Urine 01/18/2023 10:1 3 PM EDT 01/18/2023 10:22 PM EDT Narrative Resulting Agency Comment Spec In Lab Tanya Seaman MD URINE ORDERABLES Performing Organization Address [facility] Co de Phone Number [facility] [place] [address] * Creatinine, urine, random (01/18/2023 10:13 PM EDT) U Creatinine 41 mg/dL [facility] Urine 01/18/2023 10:1 3 PM EDT 01/18/2023 10:22 PM EDT Narrative Resulting Agency Comment Spec In Lab Tanya Seaman MD URINE ORDERABLES Performing Organization Address [facility] Co de Phone Number [facility] [place] [address] * Urea nitrogen, urine, random (01/18/2023 10:13 PM EDT) U Urea Nitrogen 251 mg/dL [facility] Urine 01/18/2023 10:1 3 PM EDT 01/18/2023 10:22 PM EDT Narrative Resulting Agency Comment Spec In Lab Tanya Seaman MD URINE ORDERABLES Performing Organization Address [facility]/ZIP Co de Phone Number [facility] [place] [address] * (ABNORMAL) Urinalysis with reflex Culture (01/18/2023 10:13 PM EDT) Glucose UA Negative Negative mg/dL [facility] Protein UA >=300(A) Negative mg/dL [facility] Bilirubin UA Negative Negative mg/dL [facility] Comment: Clinical correlation required for positive Urine Bilirubin results as false positive may occur with some drugs and drug related products. If a false positive is suspected a serum total bilirubin should be considered if clinically indicated. Urobilinogen UA Normal Normal mg/dL [facility] pH UA 6.5 5.0 - 8.0 [facility] Blood UA Large(A) Negative mg/dL [facility] Ketones UA Negative Negative mg/dL [facility] Nitrite UA Negative Negative [facility] Leukocytes UA Small(A) Negative [facility] Appearance UA Cloudy(A) Clear [facility] Spec [place] UA 1.010 1.005 - 1.030 [facility] Color UA Red(A) Yellow [facility] Culture Reflexed Yes [facility] Indwelling Catheter Urine 01/18/2023 10:13 PM EDT 01/18/2023 10:22 PM EDT Narrative Resulting Agency Comment Spec In Lab Tanya Seaman MD URINE ORDERABLES Performing Organization Address [facility]/ZIP Co de Phone Number [facility] [place] [address] * Lactate, whole blood, send to lab [place] [place] (01/18/2023 7:46 PM EDT) Lactate WB 1.6 0.5 - 2.2 mmol/L [facility] Blood 01/18/2023 7:46 PM EDT 01/18/2023 7:51 PM EDT Narrative Resulting Agency Comment Spec In Lab Tanya Seaman MD CHEMISTRY ORDERABL ES [facility] [place] [address] * (ABNORMAL) Differential, Automated (01/18/2023 7:16 PM EDT) Neutrophils % 80.9 % [facility] Neutr Abs (ANC) 5.86 1.70 - 6.10 x10(3)/mc L [facility] Lymphocytes % 9.7 % [facility] Lymphocytes Abs 0.7(L) 0.9 - 3.2 x10(3)/mc L [facility] Monocytes % 5.9 % [facility] Monocyte Abs 0.4 0.3 - 0.9 x10(3)/mc L [facility] Eosinophils % 2.6 % [facility] Eosinophils Abs 0.2 0.0 - 0.4 x10(3)/mc L [facility] Basophils % 0.6 % [facility] Basophils Abs 0.0 0.0 - 0.1 x10(3)/mc L [facility] Immature Gran % 0.30 % [facility] Comment: Immature granulocytes(IG's)percentage and absolute count will include metamyelocytes, myelocytes, and promyelocytes. Blood smears from CBCs yielding IG's will be scanned manually for concordance. If this scan disagrees with the automated IG or if promyelocytes are noted, a manual differential will be performed. Angelica Gran Abs 0.02 0.00 - 0.04 x10(3)/mc L [facility] Blood 01/18/2023 7:16 PM EDT 01/18/2023 7:27 PM EDT Narrative Resulting Agency Comment Spec In Lab Kyle Mckeon MD HEMATOLOGY ORDERABLE S Performing Organization Address City/[facility] Co de Phone Number [facility] [place] [address] * (ABNORMAL) Hemogram (01/18/2023 7:16 PM EDT) WBC 7.2 4.0 - 9.5 x10(3)/[facility] RBC 3.24(L) 4.58 - 5.54 x10(6)/[facility] Hemoglobin 10.1(L) 13.7 - 16.5 g/dL [facility] Hematocrit 30.1(L) 40.5 - 48.5 % [facility] MCV 92.9 82.9 - 93.1 [facility] MCH 31.2 27.5 - 32.1 pg [facility] MCHC 33.6 32.0 - 35.7 g/dL [facility] Platelets 183 145 - 357 x10(3)/[facility] RDWSD 44.4 36.0 - 45.0 [facility] RDWCV 13.2 11.4 - 13.8 % [facility] MPV 11.9 7.6 - 12.9 [facility] nRBC % Auto 0.0 % [facility] nRBC Abs Auto 0.000 0.000 - 0.000 x10(3)/[facility] Blood 01/18/2023 7:16 PM EDT 01/18/2023 7:27 PM EDT Narrative Resulting Agency Comment Spec In Lab Kyle Mckeon MD HEMATOLOGY ORDERABLE S [facility] [place] [address] * (ABNORMAL) pro-Brain Natriuretic Peptide (01/18/2023 7:16 PM EDT) ProBNP 11,818(H) <=124 pg/mL [facility] Blood 01/18/2023 7:16 PM EDT 01/18/2023 7:27 PM EDT Narrative Resulting Agency Comment Spec In Lab Tanya Seaman MD CHEMISTRY ORDERABL ES Performing Organization Address [facility]/ZIP Co de Phone Number [facility] [place] [address] * (ABNORMAL) Troponin (01/18/2023 7:16 PM EDT) Troponin-T HS 78(H) <=22 ng/L [facility] Comment: This patient's troponin T [...] troponin value can be found in the [facility] Laboratory Test Catalog Troponin - [facility] Laboratory Test Catalog Reference: Fourth Charlo Definition of Myocardial Infarction. Journal of the [place] [employer] 2018;72:0604-1436 Blood 01/18/2023 7:16 PM EDT 01/18/2023 7:27 PM EDT Narrative Resulting Agency Comment Spec In Lab Tanya Seaman MD CHEMISTRY ORDERABL ES [facility] [place] [address] * (ABNORMAL) Comprehensive metabolic panel (non-fasting) (01/18/2023 7:16 PM EDT) Glucose Lvl 76 65 - 199 mg/dL [facility] Comment:Diabetes: >=200 mg/d L plus symptoms BUN 60(H) 10 - 20 mg/dL [facility] Creatinine 5.71(H) 0.80 - 1.50 mg/dL [facility] Sodium 144 135 - 145 mmol/L [facility] Potassium 4.6 3.5 - 5.0 mmol/L [facility] Comment: Please note: ??Patients with WBC >100,000 may have falsely elevated Potassium levels. ??For accurate Potassium quantification in these patients send serum separator tube (gold top) for subsequent determinations. ??Contact the Clinical Chemistry Laboratory if there are any questions. Chloride 109(H) 98 - 107 mmol/L [facility] CO2 21(L) 22 - 31 mmol/L [facility] Anion Gap 14 5 - 15 mmol/L [facility] Calcium 9.3 8.5 - 10.5 mg/dL [facility] Total Protein 7.2 6.1 - 8.0 g/dL [facility] Albumin 4.2 3.2 - 5.2 g/dL [facility] AST 12 0 - 39 unit/L [facility] ALT 12 0 - 55 unit/L [facility] Alk Phos 95 40 - 130 unit/L [facility] Total Bilirubin 0.7 0.2 - 1.3 mg/dL [facility] Estimated GFR 10(L) >=60 mL/min/1. 73 m?? [facility] Comment: This patient's estimated [...] MD CHEMISTRY ORDERABL ES Performing Organization Address City/[facility] Co de Phone Number [facility] [place] [address] * EKG 12 Lead (01/18/2023 6:52 PM EDT) Ventricular rate 69 BPM MUSE SYSTEM Atrial Rate 69 BPM MUSE SYSTEM P-R Interval 212 ms MUSE SYSTEM QRS Duration 126 ms MUSE SYSTEM Q-T Interval 432 ms MUSE SYSTEM QTC Calculated (Bezet) 462 ms MUSE SYSTEM Calculated P [place] 46 degrees MUSE SYSTEM Calculated R [place] -37 degrees MUSE SYSTEM Calculated T [place] 101 degrees MUSE SYSTEM INTERPRETATION Sinus rhythm with 1st degree A-V block Left axis deviation Non-specific intra-ventricul ar conduction block Possible Lateral infarct , age undetermined Abnormal ECG No previous ECGs available Confirmed by Tessa Saldivar ([id number]) on 01/19/2023 9:21:20 AM MUSE SYSTEM 01/18/2023 6:52 PM EDT 01/19/2023 9:21 AM EDT Tanya Seaman MD ECG ORDERABLES Performing Organization Address City/[facility]/ZIP Co de Phone Number MUSE SYSTEM documented [...] Lopez RN) [phone] (Not Given - Provider: oMrena Lopez RN - Reason: Patient/family refused - [...] Routine documented in this encounter Care Teams Compliance Review Specialist Relationship Specialty Start Date End Date Reinier Arceo PA [address] [place] [address] PCP - General Internal Medicine 01/18/23 documented as of this encounter
--- OUTSIDE RECORDS SUMMARY | 2024-01-27 16:32 | XMS_ITS | Encounter Summary ---
Author Organization [facility] Address [facility] [place] [address] Care Team Providers Care Corporate Lawyer Name Role Phone Reina Alcala SONNY Primary Care Provider [phone] Encounter Details Date Type Department Care Team (Latest Contact Info) Description 08/25/2019 1:40 PM EST - 08/25/2019 11:59 PM [facility] Hospital Encounter [place] Echocardiography [facility] [place] [address] Dianne Pace APRN [facility] [address] [place] [address] Heart failure, unspecified HF chronicity, unspecified heart [...] 10:00 AM EDT Procedure [place] [address] Austin Simon MD [facility] [place] [address] Lindy Box APRN [facility] [place] [address] documented as of this encounter Procedures Procedure [...] . ? (Age): 1955(63y) Med Rec#: ? [id number] ?Sex: ?M ? Site Loc: ? [facility] ??Ht / Wt: ??165.1(cm)/118.3 Pt. Loc: ?Adult Floor ? BSA: ?2.22 Study Date: ?? 08/25/2019 ?Pt. Type: Inpatient Tape: ? Referring: Dianne Pace Referring: [facility] (Diag Imaging) Referring: [facility](Med Rec) Referring: [facility](Med/Surg) Reading: Remy Ball ([id number]) Community Service Director: ABHI Community Service Director: ABHI Diagnosis: *Heart failure, unspecified (I50.9) Rhythm: [...] Vmax ?0.81 ? m/sec ? MV deceleration lzdo987.33 ? msec ? MV A-wave Vmax ?1.06 [...] ? Mid-Inferior ?Hypokinetic ? Mid-Inferoseptal ?Hypokinetic ? [place]-Septal ? Hypokinetic ? [place]-Anterior ? Hypokinetic ? [place]-Lateral ?Hypokinetic ? [place]-Inferior ? Hypokinetic ? [place]-Tip ?Hypokinetic ? This report has been electronically signed by: Remy Ball MD ? 08/25/2019 14:23:59 Images reviewed and interpretation verified [facility] Procedure Note Remy Ball MD - 08/25/2019 Procedure: Transthoracic Echocardiogram Patient: KIA Parada (Age): 1955(63y) [facility] Rec#: [id number] Sex: M Site Loc: [facility] Ht / Wt: 165.1(cm)/118.3 Pt. Loc: Adult Floor BSA: 2.22 Study Date: 08/25/2019 Pt. Type: Inpatient Tape: Referring: Dianne Pace Referring: [facility] (Diag Imaging) Referring: [facility](Med Rec) Referring: [facility](Med/Surg) Reading: Remy Ball ([id number]) Community Service Director: ABHI Community Service Director: ABHI Diagnosis: *Heart failure, unspecified (I50.9) Rhythm: [...] MV E-wave Vmax 0.81 m/sec MV deceleration gjwu618.33 msec MV A-wave Vmax 1.06 m/sec MV [...] Hypokinetic Mid-Posterolateral Hypokinetic Mid-Inferior Hypokinetic Mid-Inferoseptal Hypokinetic [place]-Septal Hypokinetic [place]-Anterior Hypokinetic [place]-Lateral Hypokinetic [place]-Inferior Hypokinetic [place]-Tip Hypokinetic This report has been electronically signed by: Remy Ball MD 08/25/2019 14:23:59 Images reviewed and interpretation verified [facility] Dianne Pace APRN [employer] documented in this encounter Visit Diagnoses Diagnosis Heart failure, unspecified HF chronicity, unspecified heart failure type documented in this encounter Care Teams Corporate Lawyer Relationship Specialty Start Date End Date Reina Alcala APRN [address] [place] [address] [place] [address] PCP - General 04/18/14 01/17/23 documented as of this encounter
--- OUTSIDE RECORDS SUMMARY | 2024-01-27 16:32 | XMS_ITS | Encounter Summary ---
Author Organization [facility] [place] [address] Care Team Providers Care Children'S Attendant Name Role Phone Reina Alcala APRN Primary Care Provider [phone] Reason for Visit * Reason Comments Follow-up Encounter Details Date Type Department Care Team ([facility] st Contact Info) Description 05/22/2014 1:30 PM EST Office Visit Dermatology at [place] [address] [facility] [place] [address] Sixto Doty MD [address], [address] [place] [address] Neurodermatitis Discharge Disposition: Home Social History Tobacco Use Types Packs/Day Years Used Date Smoking Tobacco: Never Sex and Gender Information Value Date Recorded Sex Assigned at Not on file Gender Identity Not on file Sexual Orientation Not on file documented as of this encounter Patient Instructions * Patient Instructions* Sarai Acosta LPN - 05/22/2014 1:14 PM EST [facility] Psoriasis: After Your Visit Your Care Instructions Psoriasis (say gcu-MS-wm-ruel) is a long-term skin problem that causes [...] still damp. This seals in moisture. Use nulb-jfa-gzducms products that your doctor suggests. These may [...] more? Visit our health information library at [email or web address] You can also view health information on dooub, your personal patient account. Log in or sign up today. Enter U759 in the search box to learn more about Psoriasis: After Your Visit. ?? [id number] Tailster. Care instructions adapted under license by [facility]. This care instruction is for use with your licensed healthcare professional. If you have questions about a medical condition or this instruction, always ask your healthcare professional. Tailster disclaims any warranty or liability for your use of this information. Content Version: 9.9.239226; Last Revised: January 31, 2013 documented in [...] 10:00 AM EDT [place] [address] Austin Simon MD [facility] [place] [address] Lindy Box APRN [facility] [place] [address] documented as of this encounter Visit Diagnoses Diagnosis Neurodermatitis Lichenification and lichen simplex chronicus documented in this encounter Care Teams Children'S Attendant Relationship Specialty Start Date End Date Reina Alcala APRN [address] [place] [address] [place] [address] PCP - General 04/18/14 01/17/23 documented as of this encounter
--- OUTSIDE RECORDS SUMMARY | 2024-01-27 16:32 | XMS_ITS | Encounter Summary ---
Author Organization [facility] [place] [address] Care Team Providers Care Complex Commercial Litigation Paralegal Name Role Phone Reinier Arceo Primary Care Provider [phone] Encounter Details Date Type Department Care Team (Late st Contact Info) Description 01/18/2023 External [place] [id number] Social History Tobacco Use Types Packs/Day Years [...] 10:00 AM EDT Procedure [place] [address] Austin Simon MD [facility] [place] [address] Lindy Box APRN [facility] [place] [place] [address] documented as of this encounter Procedures Procedure Name Priority Date/Time Associated Diagnosis Comments ECG SCAN Routine 01/18/2023 1:02 PM EDT documented in this encounter Results * Scan Doc: ECG (01/18/2023 1:02 PM EDT) Historical Provider MD WEBER MGR SCAN EX T ORDR/RSLT documented in this encounter Visit Diagnoses Not on filedocumented in this encounter Care Teams Complex Commercial Litigation Paralegal Relationship Specialty Start Date End Date Reinier Arceo PA [address] [place] [address] PCP - General Internal Medicine 01/18/23 documented as of this encounter
--- OUTSIDE RECORDS SUMMARY | 2024-01-27 16:32 | XMS_ITS | Encounter Summary ---
Author Organization [facility] [place] [address] Care Team Providers Care Die Set Up Worker Name Role Phone Reina Alcala APRN Primary Care Provider [phone] Reason for Visit * Reason Comments Follow-up Encounter Details Date Type Department Care Team (Late st Contact Info) Description 07/03/2014 1:00 PM EST Office Visit Dermatology at [place] [address] [facility] [place] [address] Sixto Doty MD [address] [facility], [place] [address] Neurodermatitis Discharge Disposition: Home Social History Tobacco [...] to financial issues of funding his mother's alf, he has credit card debt that is [...] f. 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 COPY: Reina Alcala A.P.R.N. documented in this encounter Plan of Treatment Upcoming Encounters Date Type Department Care Team (Late st Contact Info) Description 02/03/2024 10:00 AM EDT [place] [address] Austin Simon MD [facility] [place] [address] Lindy Box APRN [facility] [place] [address] documented as of this encounter Visit Diagnoses Diagnosis Neurodermatitis Lichenification and lichen simplex chronicus documented in this encounter Care Teams Die Set Up Worker Relationship Specialty Start Date End Date Reina Alcala APRN [address] [place] [address] [place] [address] PCP - General 04/18/14 01/17/23 documented as of this encounter
--- OUTSIDE RECORDS SUMMARY | 2024-01-27 16:32 | XMS_ITS | Encounter Summary ---
Author Organization [facility] [place] [address] Care Team Providers Care Roof Assembler Name Role Phone Reinier Arceo Primary Care Provider [phone] Encounter Details Date Type Department Care Team (Late st Contact Info) Description 01/18/2023 Orders [place] [address] Unknown None Social History Tobacco Use Types Packs/Day Years Used Date Smoking Tobacco: Never Alcohol Use Standard Drinks/Week Comments Never 0 (1 standard drink = 0.6 oz pur e alcohol) [facility] Inpatient Questions Answer Date Recorded Does Anyone [...] 10:00 AM EDT [place] [address] Austin Simon MD [facility] [address] Lindy Box APRN [facility] [place] [address] documented as of this encounter Procedures Procedure [...] 05:58 PMBP: 145/90 mmHg ? Patient Location: [facility] ? HR: 69 : 1955 Age: 67 yrs Gender: Male Ordering Physician: Tanya Delcid Referring Physician: Tanya Delcid Performed By: Heron Santacruz Reason For Study: Systolic heart failure History: heart failure Interpreting Fellow: Heron Santacruz. Exam Location: [facility]. Interpretation Summary -Limited echocardiogram performed [...] prior echocardiogram for comparison. Procedure Limited - [id number]. Satisfactory quality. There is normal sinus rhythm. [...] Date: 305:58 PMBP: 145/90 mmHg Patient Location: [facility] HR: 69 : 1955 Age: 67 yrs Gender: Male Ordering Physician: Tanya Delcid Referring Physician: Tanya Delcid Performed By: Heron Fremont Reason For Study: Systolic heart failure History: heart failure Interpreting Fellow: Heron Santacruz. Exam Location: [facility]. Interpretation Summary -Limited echocardiogram performed [...] regurgitation jet. The estimated right atrial pressure dv2rrPs. -Normal biatrial size. -Doppler assessment of the aortic valve consistent with mild aorticstenosis although visually the valve does not appear stenotic. Recommend formal echocardiogram for proper assessment. -There is no prior echocardiogram for comparison. Procedure Limited - [id number]. Satisfactory quality. There is normal sinus rhythm. [...] on filedocumented in this encounter Care Teams Roof Assembler Relationship Specialty Start Date End Date Reinier Arceo PA [address] [place] [address] PCP - General Internal Medicine 01/18/23 documented as of this encounter
--- OUTSIDE RECORDS SUMMARY | 2024-01-27 16:32 | XMS_ITS | Encounter Summary ---
Author Organization [facility] Address [facility] [place] [address] Care Team Providers Care Construction Project Manager Name Role Phone Reinier Arceo Primary Care Provider [phone] Encounter Details Date Type Department Care Team (Late st Contact Info) Description 01/18/2023 Telephone Cardiology at [address] [place] [place] [address] Michelle Caicedo APRN [facility] [place] [address] Social History Tobacco Use Types Packs/Day Years Used Date Smoking Tobacco: Never Alcohol Use Standard Drinks/Week Comments Never 0 (1 standard drink = 0.6 oz pur e alcohol) [facility] Inpatient Questions Answer Date Recorded Does [...] PM Referring Provider: Dr. Dykes Patient Location: [facility] Past Medical History: DM Hypertension Hyperlipidemia COPD HFrEF 45% (2019) Presenting Symptoms per OSH: Patient is a 67-year-old with a past medical history of heart failure reduced EF (last known ejection fraction was 45% in 2020), diabetes, hypertension, hyperlipidemia and COPD. He presented to the [facility] emergency department after being redirected from the [facility] urgent walk-in clinic. He complains of [...] changes in the patient condition. Michelle Caicedo, SONNY Pager [phone] 01/18/2023 documented in this encounter Plan of Treatment Upcoming Encounters Date Type Department Care Team (Late st Contact Info) Description 02/03/2024 10:00 AM EDT Procedure [place] [address] Austin Simon MD [facility] [place] [address] Lindy Box APRN [facility] [place] [address] documented as of this encounter Visit Diagnoses Not on filedocumented in this encounter Care Teams Construction Project Manager Relationship Specialty Start Date End Date Reinier Arceo PA [address] [place] [address] PCP - General Internal Medicine 01/18/23 documented as of this encounter
--- OUTSIDE RECORDS SUMMARY | 2024-01-27 16:32 | XMS_ITS | Encounter Summary ---
Author Organization [facility] [place] [address] Care Team Providers Care Carbon Brusher Assembler Name Role Phone Von Miles MD Primary Care Provider [phone] Reason for Visit * Reason Comments Follow-up Encounter Details Date Type Department Care Team (Late st Contact Info) Description 01/02/2014 1:45 PM EDT Office Visit Dermatology at [address] [phone] Sixto Doty MD [address] [facility] [place] [address] Neurodermatitis (Primary Dx) Social History [...] for his mother who is in a alf, the [employer] in [place], and there is a monthly bill of $2000 due, which her estate is barely able to cover, and he is getting [place] Medicaid payments to help cover this. However, the checks are usually late, and he feels pressured by staff at [facility] to make the payments when he is [...] 10:00 AM EDT [place] [address] [facility] [place] [place] [address] [facility] [place] [place] [address] documented as of this encounter Visit Diagnoses Diagnosis Neurodermatitis- Primary Lichenification and lichen simplex chronicus documented in this encounter Care Teams Carbon Brusher Assembler Relationship Specialty Start Date End Date Von Miles MD [address] [place] [address] [place] [address] PCP - General 12/04/13 04/17/14 documented as of this encounter
--- OUTSIDE RECORDS SUMMARY | 2024-01-27 16:32 | XMS_ITS | Encounter Summary ---
Author Organization [facility] [place] [address] Care Team Providers Care Piping Engineer Name Role Phone Von Miles MD Primary Care Provider [phone] Reason for Visit * Reason Comments Follow-up Encounter Details Date Type Department Care Team (Late st Contact Info) Description 02/06/2014 2:45 PM EDT Office Visit Dermatology at [place] [address] [place] [address] Sixto Doty MD [address] [facility] [place] [address] Neurodermatitis (Primary Dx) Social History Tobacco Use Types Packs/Day Years Used Date Smoking Tobacco: Never Sex and Gender Information Value Date Recorded Sex Assigned at Not on file Gender Identity Not on file Sexual Orientation Not on file documented as of this encounter Patient Instructions * Patient Instructions* Sarai Acosta LPN - 02/06/2014 3:18 PM EDT [facility] Dermatitis: After Your Visit Your Care [...] help for plant rashes. ?? Try an ykuh-aah-gwdchsf antihistamine such as diphenhydramine (Benadryl) or chlorpheniramine [...] more? Visit our health information library at [email or web address] You can also view health information on Picket, your personal patient account. Log in or sign up today. Enter F270 in the search box to learn more about Dermatitis: After Your Visit. ?? [id number] INCIDE, Incorporated. Care instructions adapted under license by [facility]. This care instruction is for use with your licensed healthcare professional. If you have questions about a medical condition or this instruction, always ask your healthcare professional. Healthwise, Cozy Queen disclaims any warranty or liability for your use of this information. Content Version: 9.9.313099; Last Revised: November 11, 2012 documented in [...] 10:00 AM EDT Procedure [place] [address] Austin Simon MD [facility] [place] [address] Lindy Box APRN [facility] [place] [address] documented as of this encounter Visit Diagnoses Diagnosis Neurodermatitis- Primary Lichenification and lichen simplex chronicus documented in this encounter Care Teams Piping Engineer Relationship Specialty Start Date End Date Von Miles MD [address] [place] [address] [place] [address] PCP - General 12/04/13 04/17/14 documented as of this encounter
--- OUTSIDE RECORDS SUMMARY | 2024-01-27 16:32 | XMS_ITS | Encounter Summary ---
Author Organization [facility] [place] [address] Care Team Providers Care Corrosion Control Fitter Name Role Phone Reina Alcala APRN Primary Care Provider [phone] Reason for Visit * Reason Comments Follow-up Encounter Details Date Type Department Care Team (Late st Contact Info) Description 01/15/2015 1:45 PM EDT Office Visit Dermatology at [address] [place] [address] Sixto Doty MD [address] [facility] [facility] [address], [place] [address] Self-excoriation disorder Discharge Disposition: Home Social History [...] from the original note were not included. [facility] Dermatitis: After Your Visit Your Care [...] help for plant rashes. ?? Try an tjhe-xzh-liderkk antihistamine such as diphenhydramine (Benadryl) or chlorpheniramine [...] more? Visit our health information library at [email or web address] [email or web address] You can also view health information on Ballooning Nest Eggs, your personal patient account. Log in or sign up today. Enter F270 in the search box to learn more about Dermatitis: After Your Visit. ?? [id number] SoFi, Incorporated. Care instructions adapted under license by [facility]. This care instruction is for use with your licensed healthcare professional. If you have questions about a medical condition or this instruction, always ask your healthcare professional. SoFi, MegloManiac Communications disclaims any warranty or liability for your use of this information. Content Version: 10.4.710534; Current as of: September 06, 2013 documented [...] patient will continue to work with his business case analyst on finding a solution to his above [...] 10:00 AM EDT Procedure [place] [address] Austin Simon MD [facility] [place] [address] Lindy Box APRN [facility] [place] [address] documented as of this encounter Visit Diagnoses Diagnosis Self-excoriation disorder documented in this encounter Care Teams Corrosion Control Fitter Relationship Specialty Start Date End Date Reina Alcala APRN [address] [place] [address] [place] [address] PCP - General 04/18/14 01/17/23 documented as of this encounter
--- OUTSIDE RECORDS SUMMARY | 2024-01-27 16:32 | XMS_ITS | Encounter Summary ---
Author Organization [facility] [place] [address] Care Team Providers Care Presentation Specialist Name Role Phone Von Miles MD Primary Care Provider [phone] Reason for Visit * Reason Comments Follow-up Encounter Details Date Type Department Care Team (Late st Contact Info) Description 04/17/2014 2:30 PM EDT Office Visit Dermatology at [address] [address] Sixto Doty MD [address] [facility] DERMATOLOGY [place], [place] [id number] Neurodermatitis (Primary Dx) Discharge Disposition: Home Social History Tobacco Use Types Packs/Day Years Used Date Smoking Tobacco: Never Sex and Gender Information Value Date Recorded Sex Assigned at Not on file Gender Identity Not on file Sexual Orientation Not on file documented as of this encounter Patient Instructions * Patient Instructions* Sarai Acosta LPN - 04/17/2014 2:48 PM EDT [facility] Dermatitis: After Your Visit Your Care Instructions Dermatitis is the general name used for any rash or inflammation of the skin. Different kinds of dermatitis cause different kinds of rashes. Common causes of a rash include new medicines, plants (such as poison oak or poison ulz), heat, stress, and allergies to soaps, cosmetics, [...] help for plant rashes. ?? Try an gxct-ukh-bvoadmp antihistamine such as diphenhydramine (Benadryl) or chlorpheniramine [...] more? Visit our health information library at [email or web address] Solarinfo You can also view health information on Zivix, your personal patient account. Log in or sign up today. Enter F270 in the search box to learn more about Dermatitis: After Your Visit. ?? [phone] popexpert, Incorporated. Care instructions adapted under license by [facility]. This care instruction is for use with your licensed healthcare professional. If you have questions about a medical condition or this instruction, always ask your healthcare professional. popexpert, [employer] disclaims any warranty or liability for your use of this information. Content Version: 9.9.886998; Last Revised: November 11, 2012 documented in [...] 10:00 AM EDT [place] [address] Austin Simon MD [facility] [place] [address] Lindy Box APRN [facility] [place] [address] documented as of this encounter Visit Diagnoses Diagnosis Neurodermatitis- Primary Lichenification and lichen simplex chronicus documented in this encounter Care Teams Presentation Specialist Relationship Specialty Start Date End Date Von Miles MD [address] [place] [address] [place] [address] PCP - General 12/04/13 04/17/14 documented as of this encounter
--- OUTSIDE RECORDS SUMMARY | 2024-01-27 16:32 | XMS_ITS | Encounter Summary ---
Author Organization [facility] [place] [address] Care Team Providers Care Platform Supervisor Name Role Phone Reina Alcala APRN Primary Care Provider [phone] Reason for Visit * Reason Comments Follow-up Encounter Details Date Type Department Care Team ([facility] st Contact Info) Description 04/23/2015 1:45 PM EDT Office Visit Dermatology at [address] [place] [address] Sixto Doty MD [address], [place] [address] Self-excoriation disorder Social History Tobacco Use Types Packs/Day Years Used Date Smoking Tobacco: Never Sex and Gender Information Value Date Recorded Sex Assigned at Not on file Gender Identity Not on file Sexual Orientation Not on file documented as of this encounter Patient Instructions * Patient Instructions* Marilyn Ornelas LPN - 04/23/2015 2:11 PM EDT [facility] Actinic Keratosis: After Your Visit Your [...] more? Visit our health information library at [email or web address] You can also view health information on [employer], your personal patient account. Log in or sign up today. Enter L364 in the search box to learn more about Actinic Keratosis: After Your Visit. ?? 9619-0957 [employer]. Care instructions adapted under license by [facility]. This care instruction is for use with your licensed healthcare professional. If you have questions about a medical condition or this instruction, always ask your healthcare professional. [employer] disclaims any warranty or liability for your use of this information. Content Version: 10.4.966804; Current as of: January 25, 2014 documented [...] pharmacy. Return to clinic here p.r.n. COPY: Zhang Kimball.R.N. documented in this encounter Plan of Treatment Upcoming Encounters Date Type Department Care Team (Late st Contact Info) Description 02/03/2024 10:00 AM EDT [place] [address] Austin Simon MD [facility] [place] [address] Lindy Box APRN [facility] [place] [address] documented as of this encounter Visit Diagnoses Diagnosis Self-excoriation disorder documented in this encounter Care Teams Platform Supervisor Relationship Specialty Start Date End Date Reina Alcala APRN [address] [place] [address] [place] [address] PCP - General 04/18/14 01/17/23 documented as of this encounter
--- OUTSIDE RECORDS SUMMARY | 2024-01-27 16:32 | XMS_ITS | Encounter Summary ---
Author Organization [facility] [place] [address] Care Team Providers Care Vehicle Washer Name Role Phone Von Miles MD Primary Care Provider [phone] Reason for Visit * Reason Comments Follow-up Encounter Details Date Type Department Care Team (Late st Contact Info) Description 03/09/2014 1:30 PM EDT Office Visit Dermatology at [address] [address] Sixto Doty MD [address] [facility], [place] Butler DERMATOLOGY [place], [place] [id number] Neurodermatitis (Primary Dx) Discharge Disposition: Home Social History Tobacco Use Types Packs/Day Years Used Date Smoking Tobacco: Never Sex and Gender Information Value Date Recorded Sex Assigned at Not on file Gender Identity Not on file Sexual Orientation Not on file documented as of this encounter Patient Instructions * Patient Instructions* Sarai Acosta LPN - 03/09/2014 1:32 PM EDT [facility] Dermatitis: After Your Visit Your Care [...] help for plant rashes. ?? Try an sbid-ywf-qeroaux antihistamine such as diphenhydramine (Benadryl) or chlorpheniramine [...] more? Visit our health information library at [email or web address] You can also view health information on [employer], your personal patient account. Log in or sign up today. Enter F270 in the search box to learn more about Dermatitis: After Your Visit. ?? 9638-4585 [employer]. Care instructions adapted under license by [facility]. This care instruction is for use with your licensed healthcare professional. If you have questions about a medical condition or this instruction, always ask your healthcare professional. [employer] disclaims any warranty or liability for your use of this information. Content Version: 9.9.604398; Last Revised: November 11, 2012 documented in [...] senior housing. He is 58-1/2, and the licensed clinical social worker working with Geetha Ran is looking into senior housing options for [...] into this option for him via his licensed clinical social worker in Geetha Tong's office. b. Called in to be sure that he has refills of his triamcinolone cream, refills of his hydroxyzine 25 mg one p.o. q.a.m., and we called in a new prescription to [facility] in [place] for doxepin 10 mg to take one [...] 10:00 AM EDT [place] [address] Austin Simon MD [facility] [place] [address] Lindy Box APRN [facility] [place] [address] documented as of this encounter Visit Diagnoses Diagnosis Neurodermatitis- Primary Lichenification and lichen simplex chronicus documented in this encounter Care Teams Vehicle Washer Relationship Specialty Start Date End Date Von Miles MD [address] [place] [address] [place] [address] PCP - General 12/04/13 04/17/14 documented as of this encounter
--- OUTSIDE RECORDS SUMMARY | 2024-01-27 16:32 | XMS_ITS | Encounter Summary ---
Author Organization [facility] [place] [address] Care Team Providers Care X Ray Examiner Of Aircraft Name Role Phone Adis Reinier ELSIE Primary Care Provider [phone] Encounter Details Date Type Department Care Team (Late st Contact Info) Description 01/18/2023 1:10 PM EDT Ancillary Procedure Radiology Library at [facility] [place] [address] Dave Rowan MD [facility] [place] [address] Social History Tobacco Use Types [...] 10:00 AM EDT Procedure visit [facility]rology [facility] [place] [address] Austin Simon MD [facility] [place] [address] Lindy Box APRN [facility] [place] [address] documented as of this encounter Procedures Procedure Name Priority Date/Time Associated Diagnosis Comments FILM LIBRARY STORAGE ONLY DX CHEST Routine 01/18/2023 1:08 PM EDT documented in this encounter Results * Film Library- Storage Only DX Chest (01/18/2023 1:08 PM EDT) Narrative [facility] - 01/18/2023 1:08 PM EDT This exam is auto-finalizing. It's purpose is for storage only. Dave Rowan MD IMG FILM LIBRARY ORD ERABLES [place], [place] documented in this encounter Visit Diagnoses Not on filedocumented in this encounter Care Teams X Ray Examiner Of Aircraft Relationship Specialty Start Date End Date Reinier Arceo PA [address]iss[address] [place] [address] PCP - General Internal Medicine 01/18/23 documented as of this encounter
--- OUTSIDE RECORDS SUMMARY | 2024-01-27 16:33 | XMS_ITS | Encounter Summary ---
Author Organization [facility] Address [address] [place] [address] Care Team Providers Care Business Integration Manager Name Role Phone Casimiro Perez MD Primary Care Provider Nahed montes de oca Encounter Details Date Type Department Care Team (Late st Contact Info) Description 09/02/2019 Lab Requisition [facility] Pathology & Laboratory Medicine - [facility] [address] [place] [address] Unknown, Provider, Social History Tobacco Use Types [...] 4th Generation Negative Negative 09/04/2019 11:34 EDT [facility] Comment: If acute HIV-1 infection is suspected in a high risk ??patient, submit plasma specimen for HIV-1 RNA quantitation test. Fourth Generation assay performed on the Siemens Centaur. Blood VENOUS BLOOD / Unknown 09/01/2019 11:51 EST 09/03/2019 16:22 EDT Provider Unknown IMMUNOLOGY AND SEROL OGMicki ORDERABLES [facility] [address] [place] [address] documented in this encounter Visit Diagnoses Not on filedocumented in this encounter Care Teams Business Integration Manager Relationship Specialty Start Date End Date Casimiro Perez MD PCP - General 05/03/15 documented as of this encounter
--- OUTSIDE RECORDS SUMMARY | 2024-01-27 16:33 | XMS_ITS | Encounter Summary ---
Author Organization [facility] Address [address] [place] [address] Care Team Providers Care Auto Driver Name Role Phone Casimiro Perez MD Primary Care Provider Nahed montes de oca Encounter Details Date Type Department Care Team (Late st Contact Info) Description 09/11/2021 Lab Requisition [facility] Pathology & Laboratory Medicine - [facility] [address] [place] [address] Outr Resulting Lab, Provider Social History Tobacco [...] 0.0 - 4.5 ng/mL 09/11/2021 18:18 EDT [facility] Blood VENOUS BLOOD / Unknown 09/10/2021 16:00 EDT 09/11/2021 17:17 EDT Narrative [facility] - 09/11/2021 18:18 EDT NOTE: Serum PSA concentration should not be interpreted as absolute evidence for the presence or absence of malignant disease. Assayed on Siemens ADVIA Reocaraur XPT using chemiluminescent technology.??Values obtained by using different assay methods cannot be used interchangeably. Provider Outr Resulting Lab CHEMISTRY & BLOOD GAS ORDERABLES [facility] [address] [place] [address] documented in this encounter Visit Diagnoses Not on filedocumented in this encounter Care Teams Auto Driver Relationship Specialty Start Date End Date Casimiro Perez MD PCP - General 05/03/15 documented as of this encounter
--- OUTSIDE RECORDS SUMMARY | 2024-01-27 16:33 | XMS_ITS | Encounter Summary ---
Author Organization [facility] Address [address] [place] [address] Care Team Providers Care Annual Giving Manager Name Role Phone Casimiro Perez MD Primary Care Provider Nahed montes de oca Encounter Details Date Type Department Care Team (Late st Contact Info) Description 09/02/2019 Lab Requisition [facility] Pathology & Laboratory Medicine - [facility] [address] [place] [address] Unknown, Provider, Social History Tobacco Use Types [...] IGA <1.2 <4.0 U/mL 09/04/2019 14:27 EDT [facility] Comment: A negative result may be due to IgA deficiency and does not rule out celiac disease. ? Negative: ??<4.0 U/mL ? Weak Positive: ??4.0 - 10.0 U/mL ? Positive: ??>10.0 U/mL Results were obtained with the ShoutNowA Lite R h-tTG IgA WENDY assay on the Dynex DSX. IgA 279 85 - 499 mg/dL 09/04/2019 14:27 EDT [facility] Celiac Disease Interpretation Negative Serology. Celiac disease unlikely. Approximately 10% of patients with celiac disease are seronegative. Patients who are already adhering to a gluten-free diet may also be seronegative. If celiac disease is highly clinically suspected, referral to gastroenterology for additional evaluation is recommended. 09/04/2019 14:27 EDT [facility] Blood VENOUS BLOOD / Unknown 09/01/2019 11:51 EST 09/03/2019 16:21 EDT Provider Unknown IMMUNOLOGY AND SEROL ROSSI ORDERABLES [facility] [address] [place] [address] documented in this encounter Visit Diagnoses Not on filedocumented in this encounter Care Teams Annual Giving Manager Relationship Specialty Start Date End Date Casimiro Perez MD PCP - General 05/03/15 documented as of this encounter
--- OUTSIDE RECORDS SUMMARY | 2024-01-27 16:33 | XMS_ITS | Encounter Summary ---
Author Organization [facility] [place] [address] Care Team Providers Care Isobutylene Operator Chief Name Role Phone Reina Alcala APRN Primary Care Provider [phone] Reason for Visit * Reason Comments Skin Check Encounter Details Date Type Department Care Team (Late st Contact Info) Description 12/01/2013 1:00 PM EDT Office Visit Dermatology at [address] [place] [address] Sixto Doty MD [address] [facility], [place] [address] Neurodermatitis (Primary Dx) Social History Tobacco Use [...] him that if he can break the ilyu-ecfphul-byxz cycle, these will heal. f. Return to clinic here in one month for repeat check. COPY: Nicole Kimball. 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
--- OUTSIDE RECORDS SUMMARY | 2024-01-27 16:33 | XMS_ITS | Encounter Summary ---
Author Organization [facility] Address [address] [place] [address] Care Team Providers Care Aviation Mechanic Name Role Phone Casimiro Perez MD Primary Care Provider Nahed montes de oca Encounter Details Date Type Department Care Team (Late st Contact Info) Description 02/10/2023 Lab Requisition [facility] Pathology & Laboratory Medicine - [facility] [address] [place] [address] Outr Resulting Lab, Provider Social History Tobacco [...] 873 See Note mg/dL 02/10/2023 22:35 EDT [facility] Comment: NOTE: Reference range has not been established for urea nitrogen concentration in random urine specimens. Urine URINE / Unknown 02/10/2023 1 1:53 EDT 02/10/2023 21:55 EDT Provider Outr Resulting Lab URINALYSIS O RDERABLES [facility] [address] [place] [address] documented in this encounter Visit Diagnoses Not on filedocumented in this encounter Care Teams Aviation Mechanic Relationship Specialty Start Date End Date Casimiro Perez MD PCP - General 05/03/15 documented as of this encounter
--- OUTSIDE RECORDS SUMMARY | 2024-01-27 16:33 | XMS_ITS | Clinical Summary ---
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); Atopic dermatitis, unspecified from Last 3 Months Social History Tobacco [...] 2014 Fall Risk Screening 11/09/2019 COVID-19 Vaccine ( season) 2023 Procedures Procedure Name Priority Date/Time Associated Diagnosis Comments SURGICAL PATHOLOGY Today 01/19/2024 14 :00 EDT Chronic combined systolic (congestive) and diastolic (congestive) heart failure (HCC-CMS) Atopic dermatitis, unspecified from Last 3 Months Results * SURGICAL PATHOLOGY (01/19/2024 14:00 EDT) Note to Patient The following pathology results have been interpreted by your pathologist and may be available to you before your health provider has had the opportunity to review them. Please allow time for your provider to receive these results and explore management options, if applicable. 01/21/2024 15:06 [facility] Final Diagnosis A. SKIN OF BACK, MIDLINE, PUNCH BIOPSY: - Epidermal ulceration with sparse superficial dermal inflammation. See comment. 01/21/2024 15:06 [facility] Diagnosis Comment Numerous sections of the biopsy were reviewed. The biopsy is most notable for epidermal ulceration with features of excoriation. There is only a small portion of intact epidermis represented that shows reactive changes. Within the dermis, beneath the ulcer, there is a sparse infiltrate that notably includes eosinophils. Although the features are relatively nonspecific, they could represent a hypersensitivity reaction. A more specific diagnosis is precluded by the lack of intact epidermis. 01/21/2024 15:06 [facility] Attestation By the signature below, the attending physician certifies that they have 1) personally conducted a gross and/or microscopic examination of the described specimen(s), and/or personally interpreted the results of laboratory testing of the described specimen(s), and 2) personally rendered or confirmed the above diagnosis. 01/21/2024 15:06 [facility] at 1506 Microscopic Description Sections consist of a punch biopsy of skin to the deep reticular dermis. Much of the epidermis is ulcerated and there is overlying fibrinous exudate with degenerated inflammatory cells and blood. Bacteria are noted on the surface of the exudate. At the edge of the biopsy, there is a minute portion of intact epidermis has reactive changes. Within the dermis, beneath the ulcer, there is sparse inflammation consisting of small lymphocytes and occasional eosinophils. The vessels have reactive changes. Multiple additional deeper sections show similar features. No scabies organisms are identified. 01/21/2024 15:06 [facility] Clinical History Unknown dermatitis, macular papular rash with generalized urticaria; clinical diagnosis code: L20.9 01/21/2024 15:06 [facility] Gross Description A. Received in formalin labelled with proper patient identification (initials C, K) and M back is a punch biopsy of canales skin (0.3 cm in diameter by 0.6 cm in depth). The specimen is submitted intact in A1. ELSIE VANESSA(ASCP) 01/20/2024 9:31 01/21/2024 15:06 EDT [facility] Performing Lab [facility] 01/21/2024 15:06 EDT [facility] Scanned Images 01/21/2024 15:06 EDT [facility] Tissue SPECIMEN FROM SKIN / Unknown 01/19/2024 14:00 EDT 01/20/2024 8:26 EDT Reinier Arceo [facility] PATHOLOGY ORDERAB LES [facility] [address] [place] [address] from Last 3 Months Care Teams Band Sawmill Operator Relationship Specialty Start Date End Date Casimiro Perez MD PCP - General 05/03/15
--- OUTSIDE RECORDS SUMMARY | 2024-01-27 16:33 | XMS_ITS | Referral Summary ---
Author Organization [facility] Address [address] [place] [address] Care Team Providers Care Entry Level Buyer Name Role Phone Casimiro Perez MD Primary Care Provider Nahed rubiole Encounters Date Type Department Care Team Description 01/20/2024 Lab Requisition [facility] Pathology & Laboratory Medicine - [facility] [address] [place] [address] Reinier Arceo RPA Chronic combined systolic (congestive) and diastolic (congestive) heart failure (HCC-CMS); Atopic dermatitis, unspecified from Last 3 Months Social History Tobacco Use Types Packs/Day Years Used Date Smoking Tobacco: Never Assessed Sex and Gender Information Value Date Recorded Sex Assigned at Not on file Gender Identity Not on file Sexual Orientation Not on file Plan of Treatment Not on file Procedures Procedure Name Priority Date/Time Associated Diagnosis [...] explore management options, if applicable. 01/21/2024 15:06 EDT [facility] Final Diagnosis A. SKIN OF BACK, MIDLINE, PUNCH BIOPSY: - Epidermal ulceration with sparse superficial dermal inflammation. See comment. 01/21/2024 15:06 EDT [facility] Diagnosis Comment Numerous sections of [...] the lack of intact epidermis. 01/21/2024 15:06 [facility] Attestation By the signature below, the attending physician certifies that they have 1) personally conducted a gross and/or microscopic examination of the described specimen(s), and/or personally interpreted the results of laboratory testing of the described specimen(s), and 2) personally rendered or confirmed the above diagnosis. 01/21/2024 15:06 [facility] at 1506 Microscopic Description Sections [...] No scabies organisms are identified. 01/21/2024 15:06 [facility] Clinical History Unknown dermatitis, macular papular rash with generalized urticaria; clinical diagnosis code: L20.9 01/21/2024 15:06 [facility] Gross Description A. Received in formalin labelled with proper patient identification (initials C, K) and M back is a punch biopsy of canales skin (0.3 cm in diameter by 0.6 cm in depth). The specimen is submitted intact in A1. ELSIE VANESSA(ASCP) 01/20/2024 9:31 01/21/2024 15:06 [facility] Performing Lab [facility] 01/21/2024 15:06 [facility] Scanned Images 01/21/2024 15:06 [facility] Tissue SPECIMEN FROM SKIN / Unknown 01/19/2024 14:00 EDT 01/20/2024 8:26 EDT Reinier Arceo RPA PATHOLOGY ORDERAB LES [facility] [address] [place] [address] from Last 3 Months Care Teams Entry Level Buyer Relationship Specialty Start Date End Date Casimiro Perez MD PCP - General 05/03/15
--- OUTSIDE RECORDS SUMMARY | 2024-01-27 16:33 | XMS_ITS | Encounter Summary ---
Author Organization [facility] Address [address] [place] [address] Care Team Providers Care Occupational Therapy Asst Name Role Phone Casimiro Perez MD Primary Care Provider Nahed montes de oca Encounter Details Date Type Department Care Team (Late st Contact Info) Description 01/20/2024 Lab Requisition [facility] Pathology & Laboratory Medicine - [facility] [address] [place] [address] Reinier Arceo, [address] [place] [address] Chronic combined systolic (congestive) and diastolic (congestive) heart failure (HCC-CMS); Atopic dermatitis, unspecified Social History Tobacco Use Types Packs/Day Years [...] (congestive) heart failure (HCC-CMS) Atopic dermatitis, unspecified documented in this encounter Results * SURGICAL PATHOLOGY (01/19/2024 14:00 EDT) Note to Patient The following pathology results have been interpreted by your pathologist and may be available to you before your health provider has had the opportunity to review them. Please allow time for your provider to receive these results and explore management options, if applicable. 01/21/2024 15:06 EDT [facility] Final Diagnosis A. SKIN OF BACK, MIDLINE, PUNCH BIOPSY: - Epidermal ulceration with sparse superficial dermal inflammation. See comment. 01/21/2024 15:06 [facility] Diagnosis Comment [...] the lack of intact epidermis. 01/21/2024 15:06 [facility] Attestation By the signature below, the attending physician certifies that they have 1) personally conducted a gross and/or microscopic examination of the described specimen(s), and/or personally interpreted the results of laboratory testing of the described specimen(s), and 2) personally rendered or confirmed the above diagnosis. 01/21/2024 15:06 [facility] at 1506 [...] No scabies organisms are identified. 01/21/2024 15:06 [facility] Clinical History Unknown dermatitis, macular papular rash with generalized urticaria; clinical diagnosis code: L20.9 01/21/2024 15:06 [facility] Gross Description A. Received in formalin labelled with proper patient identification (initials C, K) and M back is a punch biopsy of canales skin (0.3 cm in diameter by 0.6 cm in depth). The specimen is submitted intact in A1. ELSIE VANESSA(ASCP) 01/20/2024 9:31 01/21/2024 15:06 [facility] Performing Lab [facility] 01/21/2024 15:06 EDT [facility] Scanned Images 01/21/2024 15:06 EDT [facility] Tissue SPECIMEN FROM SKIN / Unknown 01/19/2024 14:00 EDT 01/20/2024 8:26 EDT Reinier Arceo [facility] PATH[facility] ORDERAB LES [facility] [address] [place] [address] documented in this encounter Visit Diagnoses Diagnosis Chronic combined systolic (congestive) and diastolic (congestive) heart failure (HCC-CMS) Atopic dermatitis, unspecified documented in this encounter Care Teams Occupational Therapy Asst Relationship Specialty Start Date End Date Casimiro Perez MD PCP - General 05/03/15 documented as of this encounter
--- NOTE | 2024-01-27 17:15 | RT.EKG_ITS ---
APPROVED REPORT Exam: Resting ECG Reason for Exam: sob Patient Location: E HR:74 bpm ECG Measurements Heart Rate 74 AXIS NM 183 P 52 QRSd 122 QRS -47 QT 419 T 137 QTc 473 Conclusion Sinus rhythm...normal P axis, V-rate 60- 99 Multiform ventricular premature complexes...short R-R, variable morphology Probable left atrial enlargement...P >50mS, <-0.10mV V1 Nonspecific T abnormalities, lateral leads...T <-0.10mV, I aVL V5 V6
--- NOTE | 2024-01-27 17:15 | DI.RAD_ITS ---
Exam(s) XR PORTABLE CHEST AP EXAM: XR PORTABLE CHEST AP CLINICAL HISTORY: sob TECHNIQUE: 2D digital imaging was performed of the chest. One image was obtained. An AP view was ob tained. COMPARISON: CR XR PORTABLE CHEST AP from 02/09/2023 FINDINGS: MEDIASTINUM: Normal. HEART: Normal. PULMONARY VASCULATURE: Normal. LUNGS: Clear. PLEURAL SPACE: No pleural effusion or pneumothorax. BONE:Within normal limits for the patient's age. There is inferior subluxation of the right humerus r elative to the glenoid. OTHER FINDINGS:Normal. IMPRESSION: 1. No acute pulmonary findings. 2. Inferior subluxation of the right humerus relative to the glenoid. Please correlate with physical exam. DATA REPOSITORY: RADIATION DOSE DELIVERED:
--- NOTE | 2024-01-27 17:29 | W.ED.GENAD ---
Discharge Plan Disposition Patient Disposition: Admit to [facility] Condition: Good Discharge Details Chief Complaint: GenMedical Clinical Impression: Heart failure with reduced ejection fraction, Hypernatremia, CLEM (acute kidney injury), Edema Admit Date/Time: 01/27/24 19:55 Admit Provider: Galo Cabral Attending Provider: Galo Cabral Primary Care Provider: Reinier Arceo ED Provider: Christo Conner [facility] General Date/Time Provider Initiated Documentation: 01/27/24 15:40. HPI Narrative: 68-year-old male presents with weight gain, dyspnea on exertion, and swelling. Says this has been getting worse over the last couple weeks. Significantly worsening leg swelling and dyspnea on exertion. Feels fine at rest. Said he went to his PCP about a week ago and he was up 30 pounds. They started him on Lasix. He feels like his symptoms have gotten better. He denies any other complaints. He does have a history of heart failure. No chest pain. Related Data Home Medications ?Medication ?Instructions ?Recorded ?Confirmed albuterol sulfate 90 mcg/actuation 2 puff inhalation QID PRN 08/23/19 01/27/24 aerosol inhaler (ProAir HFA) betamethasone dipropionate 0.05 % 1 applic topical PRN PRN 08/23/19 01/27/24 topical cream ketoconazole 2 % topical cream 1 applic topical PRN PRN 08/23/19 01/27/24 triamcinolone acetonide 0.1 % 1 applic topical PRN PRN 08/23/19 01/27/24 topical cream finasteride 5 mg tablet 5 mg PO DAILY 02/05/23 01/27/24 Bengay Greaseless Cream 0 g topical PRN PRN ##0 02/14/23 01/27/24 benzonatate 100 mg capsule 100 mg PO TID #0 caps 02/14/23 01/27/24 docusate sodium 100 mg capsule 100 mg PO BID #0 caps 02/14/23 01/27/24 (Colace) omeprazole 20 mg capsule,delayed 40 mg (2 x 20 mg) PO BID@0730,2000 02/14/23 01/27/24 release #0 caps ondansetron 4 mg disintegrating 4 mg PO Q8H PRN PRN #0 tabs 02/14/23 01/27/24 tablet polyethylene glycol 3350 17 gram 17 g PO DAILY PRN PRN Constipation 02/14/23 01/27/24 oral powder packet #0 ea ammonium lactate 12 % topical cream 1 applic topical BID 01/27/24 01/27/24 furosemide 20 mg tablet 40 mg PO QAM 01/27/24 01/27/24 prednisone 20 mg tablet 20 mg PO DAILY 01/27/24 01/27/24 Previous Rx's ?Medication ?Instructions ?Recorded Bengay Greaseless Cream 0 g topical PRN PRN ##0 02/14/23 benzonatate 100 mg capsule 100 mg PO TID #0 caps 02/14/23 docusate sodium 100 mg capsule 100 mg PO BID #0 caps 02/14/23 (Colace) omeprazole 20 mg capsule,delayed 40 mg (2 x 20 mg) PO BID@0730,199902/14/23 release #0 caps ondansetron 4 mg disintegrating 4 mg PO Q8H PRN PRN #0 tabs 02/14/23 tablet polyethylene glycol 3350 17 gram 17 g PO DAILY PRN PRN Constipation 02/14/23 oral powder packet #0 ea Allergies Allergy/AdvReac Type Severity Reaction Status Date / Time No Known Allergies Allergy Unverified 01/27/24 15:42 General Stated Complaint: GenMedical MINERVA: 3 Review of Systems Constitutional Constitutional: Denies chills, Denies fever(s), Denies headache(s) and Reports weight gain Eyes Eyes: Denies change in vision ENT Ears, Nose, Mouth, and Throat: Denies headache(s) and Denies odynophagia Cardiovascular Cardiovascular: Denies chest pain, Reports leg edema, Reports dyspnea and Reports dyspnea on exertion Respiratory Respiratory: Reports dyspnea and Reports dyspnea on exertion Gastrointestinal Gastrointestinal: Denies abdominal pain, Denies diarrhea, Denies nausea, Denies odynophagia and Denies vomiting Genitourinary Genitourinary: Denies dysuria Musculoskeletal Musculoskeletal: Denies myalgias Integumentary/Breasts Skin/Breast: Denies changing lesions Neurologic Neurologic: Denies behavioral changes and Denies headache(s) Psychiatric Psychiatric: Denies behavioral changes Endocrine Endocrine: Denies heat intolerance Hematologic/Lymphatic Hematologic/Lymphatic: Denies lymphadenopathy Exam Const General: cooperative Nutritional Appearance: average body habitus Orientation: alert, awake and oriented x3 HENMT Head: normal to inspection Ears: external ears normal Mouth: moist mucous membranes Eyes Pupils: PERRL EOM: EOM intact bilaterally and No nystagmus Neck Neck: full ROM and no tracheal deviation Chest Chest: normal inspection of the chest Resp Auscultation: clear to auscultation bilaterally Cardio Rate: regular rate Rhythm: regular rhythm GI Inspection: normal to inspection Palpation: soft, no guarding, not rigid and nontender Back/Spine/Pelvis Back: No no CVA tenderness Thoracic/Lumbar Spine: thoracic and lumbar spine normal to inspection Skin General skin exam: no rashes or lesions noted Neuro General: patient alert, patient awake and patient oriented x3 Cranial Nerves: CN's II-XI intact bilaterally, PERRL and no nystagmus Cognition: normal cognition Motor: muscle tone normal throughout and strength 5/5 throughout Sensory Exam: no sensory deficits noted Extrem General: other (Pitting edema to the thighs bilaterally. ) Course Vital Signs Vital signs: Vital Signs Temperature 36.5 C 01/27/24 15:46 Pulse 89 01/27/24 15:46 Respiratory Rate 16 01/27/24 15:46 Blood Pressure 129/81 01/27/24 15:46 Pulse Oximetry 98 01/27/24 15:46 Temperature 36.5 C 01/27/24 15:46 Temperature Source Temporal Artery Scan 01/27/24 15:46 Pulse 89 01/27/24 15:46 Respiratory Rate 16 01/27/24 15:46 Respiratory Effort Short of Breath 01/27/24 15:49 Blood Pressure 129/81 01/27/24 15:46 Blood Pressure Position Sitting 01/27/24 15:46 Pulse Oximetry 98 01/27/24 15:46 Oxygen Delivery Method Room Air 01/27/24 15:46 Oxygen Flow Rate 0 01/27/24 15:46 Pain Level 10 01/27/24 15:46 Medical Decision Making 68-year-old male history of heart failure with previous EF of 20% is now presenting with dyspnea on exertion, weight gain, and leg swelling. It looks like the patient was on minimal diuretics despite his history of heart failure previously. His primary care doctor put him on diuretics 1 week ago and clinically he does appear volume overloaded. He does not have crackles on examination and no hypoxemia or increased work of breathing. Said chest x-ray and there is no evidence of significant pulmonary edema. EKG is sinus rhythm with no ischemic changes. Cardiac enzymes are unremarkable other than markedly elevated proBNP. In regards to his laboratory workup he does have an elevated creatinine from his baseline and even now up to 3.5 from 3.0 just 1 week ago. He does have a mild hyponatremia that has worsened since 1 week ago additionally and I attribute this to the Lasix. Difficult to say what he is throwing off his fluid balance but I suspect that it is the heart failure and most likely a right-sided heart failure. Spoke to the inpatient hospitalist Dr. Fox about admission and he is in agreement that the patient's labs and fluid status warrant inpatient hospitalization with the acute kidney injury and suspected heart failure. Despite the hyponatremia and acute kidney injury we agreed to give the patient IV Lasix to try and treat this as we believe that the worsening renal function may be an adequate diuresis in the setting of heart failure. This has been ordered. Will admit to the hospitalist for further treatment and monitoring. Medical Records Medical records reviewed: Yes I reviewed the patient's medical records. Imaging Data Radiologic Study: Attestation: I personally reviewed and interpreted this imaging study as follows: Imaging: X-Ray (chest) Lab Data Lab results reviewed: Yes I reviewed the patient's lab results. Labs: Mild hypernatremia. Acute kidney injury. Very elevated proBNP. Troponin is unremarkable. ECG Data Interpretation: Sinus rhythm with no ischemic changes. Rate of 74. Normal ND intervals. Similar to prior EKGs. Quality:SDOH Health Related Social Needs: Health related social needs transpo insecurity, personal safety PFSH All Active Problems (Updated 01/27/24 @ 22:59 by Christo Conner MD) Edema (Acute) CLEM (acute kidney injury) (Acute) Hypernatremia (Acute) Anasarca (Acute) Heart failure with reduced ejection fraction (HFrEF, <= 40%) and combined systolic and diastolic dysfunction (Acute) Urinary retention due to benign prostatic hyperplasia (Acute) Weakness (Acute) Heart failure with reduced ejection fraction (Chronic) Hypertension (Chronic) Schizophrenia (Chronic) Diabetes mellitus type 2 in obese (Acute) Medical History CHF (congestive heart failure) Anemia Acute exacerbation of congestive heart failure Panic attacks High cholesterol Eczema Depression CAP (community acquired pneumonia) Acute dyspnea Asthma exacerbation in COPD CHF exacerbation Surgical History Hx of hernia repair Social History Smoking/Tobacco Use Status: Never Smoking risk assessment performed?: Yes Alcohol Intake: never Drug use: Never Substance use type: does not use Housing: apartment What type of physical activity do you participate in: none Do you feel safe at home: Yes Do you feel safe in your relationship?: Yes
[2024-01-27 18:04] LABS: Abs Immature Grans 0.03 10^3/uL (0.0-0.06); Absolute Eosinophil Count 0.01 10^3/uL (0.0-0.7); Absolute Lymphocyte Count 0.35 10^3/uL (1.2-3.4); Absolute Monocyte Count 0.22 10^3/uL (0.1-0.8); Eosinophils % 0.2 %; HCT 35.5 % (40.0-50.0); HGB 11.5 g/dL (13.5-17.5); Immature Grans % 0.5 %; Lymphocytes % 5.3 %; MCH 30.4 pg (27.0-33.0); MCHC 32.4 % (32.0-36.0); MCV 94 fL (80-95); MPV 12.2 fL (8.0-11.0); Monocytes % 3.3 %; Neutrophils % 90.7 %; Platelet Count 144 10^3/uL (130-400); RBC 3.78 10^6/uL (4.36-5.78); RDW 16.3 % (11.8-14.1); RDW-SD 55.9 fL; WBC 6.61 10^3/uL (4.4-10.8)
[2024-01-27 18:14] LABS: INR 1.2 (0.9-1.1); Prothrombin Time 12.1 sec (9.1-11.1)
[2024-01-27 18:18] LABS: ALT 75 U/L (16-63); AST 33 U/L (15-37); Alkaline Phosphatase 100 U/L (46-116); Anion Gap 11.6 mmol/L (3-11); BUN 63 mg/dL (7-18); Bilirubin, Total 0.61 mg/dL (0.2-1.0); CO2 23.4 mmol/L (21.0-32.0); CREATININE 3.5 mg/dL (0.70-1.30); Calcium 8.2 mg/dL (8.5-10.1); Chloride 111 mmol/L (98-107); Estimated GFR 18.12 (mL/min/1.73m2); Glucose 308 mg/dL (74-106); Magnesium 1.9 mg/dL (1.8-2.4); Potassium 4.7 mmol/L (3.5-5.1); Sodium 146 mmol/L (136-145); Total Protein 5.8 g/dL (6.4-8.2)
[2024-01-27 18:25] LABS: Troponin I < 50 ng/L (< or =60)
[2024-01-27 18:26] LABS: NT-proBNP > 35000 pg/mL (<300)
[2024-01-27 19:19] LABS: Bilirubin Negative (Negative); Blood Trace-intact (Negative); Clarity Clear (Clear); Glucose Negative (Negative); Ketones Negative (Negative); Leukocyte Esterase Trace (Negative); Nitrite Positive (Negative); Specific Gravity >= 1.030 (1.005-1.025); Urobilinogen 0.2 mg/dL (Up to 0.2); pH 5.5 (5-8)
--- NOTE | 2024-01-27 19:51 | HPE_ITS ---
Date of service: 01/27/24 Time of Service: 19:51 Assessment and Plan Assessment and plan (1) Denisharca: Start date: 01/27/24 Status: Acute Assessment and plan: This is a 68-year-old gentleman who has a history of heart failure with reduced left ventricular ejection fraction of 20% last late summer. Recently has had symptoms of heart failure which appear to be mostly right-sided and just started on diuretics with low-dose Lasix orally. He appears to be responding to IV Lasix which will be continued with consideration of adding spironolactone chronically but this can be assessed by his PCP and cardiology consultation if needed. Will update his echocardiogram. He did receive albumin and this appears to have helped his diuresis. Monitor output Benedict catheter in place for bladder outlet obstruction with BPH. Continue outpatient medical regimen with addition of insulin coverage for glucometer measurements patient having appears to be hyperglycemia managing on prednisone for his rash. He is a full code (2) Heart failure with reduced ejection fraction (HFrEF, <= 40%) and combined systolic and diastolic dysfunction: Start date: 01/27/24 Status: Acute Assessment and plan: IV Lasix 80 mg twice daily and consider adding spironolactone if urine output is adequate. He would not be given IV fluids in the his CLEM is slightly worsened and his urine is concentrated. Follow-up lab. Update echocardiogram. (3) CLEM (acute kidney injury): Status: Acute Assessment and plan: Slight worsening of patient's baseline creatinine but not available. Monitor lab as we diurese. (4) Urinary retention due to benign prostatic hyperplasia: Status: Chronic Assessment and plan: Patient has intermittent problems with urinary retention and is doing better with the Benedict catheter in place. This will be continued with urology follow-up as an outpatient (5) Hypertension: Status: Chronic Assessment and plan: Patient is not chronically on antihypertensives but diuretics may help with this problem. Monitor while hospitalized. Qualifiers: Hypertension type: primary hypertension Qualified Code(s): I10 - Essential (primary) hypertension (6) Diabetes mellitus type 2 in obese: Status: Chronic Assessment and plan: Patient has intermittent hyperglycemia and hemoglobin A1c is not elevated at this time but has been in the past. Counter measurements before meals and at bedtime with short acting insulin coverage while hospitalized. (7) Schizophrenia: Status: Chronic Assessment and plan: Patient is not on specific therapy this does create problems with adequate history at times. He appears to have mild disease. He appears to be functional at this time. PCP will follow-up this problem. Qualifiers: Schizophrenia type: schizophreniform disorder Qualified Code(s): F20.81 - Schizophreniform disorder History of Present Illness History of Present Illness Chief Complaint: Lower body edema with dyspnea on exertion and weight gain. Narrative: This is a 68-year-old male patient who presented to the ED with dyspnea upon exertion, weight gain and leg swelling to his thighs and lower abdomen with a history of decrease left-ventricular ejection fraction 20% by echocardiogram about 1 year ago. His previous echo did not show signs of severe decreased and left ventricular ejection fraction. He was not on diuretics and with his symptoms which progressed over weeks, he went to the PCP 1 week prior to this presentation and was initiated on Lasix at 40 mg daily. He did not think he had very adequate diuresis with this and he does have a Benedict catheter placed for bladder outlet obstruction with BPH. He does have CKD which is slightly worsened and his BNP is markedly elevated. He feels better after the initial dose of Lasix 80 mg and has less swelling and does not have symptoms at rest. He is a fair historian with a history of schizophrenia but not on medical therapy. He was admitted for IV Lasix diuresis with 1 dose of albumin given to help with diuresis and not started on spironolactone as of yet. This can be considered to augment loop diuretic. His cardiac enzymes were normal and EKG showed no acute changes though the patient does have frequent PVCs. quality cloth tester shows bigeminy PVCs during my exam. Patient will have an updated echocardiogram and we will trend his labs. He is a full code. Review of Systems Narrative: 13 point review of systems otherwise unrevealing or unobtainable and stable. Patient is somewhat of a poor historian. Wanders in conversation. [facility] All Active Problems (Updated 01/28/24 @ 11:06 by Galo Cabral) Edema (Acute) CLEM (acute kidney injury) (Acute) Hypernatremia (Acute) Anasarca (Acute) Heart failure with reduced ejection fraction (HFrEF, <= 40%) and combined systolic and diastolic dysfunction (Acute) Urinary retention due to benign prostatic hyperplasia (Chronic) Weakness (Acute) CLEM (acute kidney injury) (Acute) Heart failure with reduced ejection fraction (Chronic) Hypertension (Chronic) Schizophrenia (Chronic) Diabetes mellitus type 2 in obese (Chronic) Medical History CHF (congestive heart failure) Anemia Acute exacerbation of congestive heart failure Panic attacks High cholesterol Eczema Depression CAP (community acquired pneumonia) Acute dyspnea Asthma exacerbation in COPD CHF exacerbation Surgical History Hx of hernia repair Social History Smoking/Tobacco Use Status: Never Smoking risk assessment performed?: Yes Alcohol Intake: never Drug use: Never Substance use type: does not use Housing: apartment What type of physical activity do you participate in: none Do you feel safe at home: Yes Do you feel safe in your relationship?: Yes Meds Allergies and Home Medications Allergies Allergy/AdvReac Type Severity Reaction Status Date / Time No Known Allergies Allergy Unverified 01/27/24 15:42 Home Medications ?Medication ?Instructions ?Recorded ?Confirmed ?Type albuterol sulfate 90 mcg/actuation 2 puff inhalation QID PRN 08/23/19 01/27/24 History aerosol inhaler (ProAir HFA) betamethasone dipropionate 0.05 % 1 applic topical PRN PRN 08/23/19 01/27/24 History topical cream ketoconazole 2 % topical cream 1 applic topical PRN PRN 08/23/19 01/27/24 History triamcinolone acetonide 0.1 % 1 applic topical PRN PRN 08/23/19 01/27/24 History topical cream finasteride 5 mg tablet 5 mg PO DAILY 02/05/23 01/27/24 History Bengay Greaseless Cream 0 g topical PRN PRN ##0 02/14/23 01/27/24 Rx benzonatate 100 mg capsule 100 mg PO TID #0 caps 02/14/23 01/27/24 Rx docusate sodium 100 mg capsule 100 mg PO BID #0 caps 02/14/23 01/27/24 Rx (Colace) omeprazole 20 mg capsule,delayed 40 mg (2 x 20 mg) PO BID@0730,199902/14/23 01/27/24 Rx release #0 caps ondansetron 4 mg disintegrating 4 mg PO Q8H PRN PRN #0 tabs 02/14/23 01/27/24 Rx tablet polyethylene glycol 3350 17 gram 17 g PO DAILY PRN PRN Constipation 02/14/23 01/27/24 Rx oral powder packet #0 ea ammonium lactate 12 % topical cream 1 applic topical BID 01/27/24 01/27/24 History furosemide 20 mg tablet 40 mg PO QAM 01/27/24 01/27/24 History prednisone 20 mg tablet 20 mg PO DAILY 01/27/24 01/27/24 History Exam Narrative Exam Narrative: General: Patient appears older than stated age, morbidly obese but evidence of recent weight loss with loose pannus over his abdomen and chest. Alert and oriented to least person and place. He is in no acute distress. HEENT: Normocephalic, eyes with pupils equal and reactive to light symmetrically, extraocular movement intact and sclera anicteric. Oropharynx with dry mucosa and poor dentition. Neck: Supple without JVD. Back: Stooped posture without CVA tenderness. Lungs: Aeration with bronchovesicular breath sounds diffusely, no focalizing rales or rhonchi. There is focal fat over the patient's chest and back. Heart: Irregular rhythm with normal rate. No appreciable murmur or gallop. Abdomen: Obese contour, large and loose and this with some edema over the pubic area which is nonpitting no palpable hepatosplenomegaly. Bowel sounds positive all quadrants. Genitalia/rectal: Exam deferred. Patient does have Benedict catheter intact draining clear urine. Extremities: 4+ pitting edema up to the thighs on the left lower extremity and 3+ on the right with nonpitting edema over the upper thighs and lower abdomen. No clubbing or cyanosis. Fair capillary refill. Skin: Diffuse guttate erythematous rash with slight scaling consistent with psoriasis possibly eczema (patient has been on various doses of prednisone which by his report have not been helpful to clear this rash), no color, warm and dry. Neuro: Cranial nerves II through XII gross intact, no focalizing motor deficits. No tremor. Psych: Flattened affect with slightly pressured speech and repetition during conversation with patient being a poor historian. Mood appears normal. No abnormal thought processes but with wandering speech during conversation. Remote memory appear to be grossly intact with recent memory less assessable with his affect. Results Imaging Imaging Studies: EXAM: XR PORTABLE CHEST AP CLINICAL HISTORY: sob TECHNIQUE: 2D digital imaging was performed of the chest. One image was obtained. An AP view was obtained. COMPARISON: CR XR PORTABLE CHEST AP from 02/09/2023 FINDINGS: MEDIASTINUM: Normal. HEART: Normal. PULMONARY VASCULATURE: Normal. LUNGS: Clear. PLEURAL SPACE: No pleural effusion or pneumothorax. BONE:Within normal limits for the patient's age. There is inferior subluxation of the right humerus relative to the glenoid. OTHER FINDINGS:Normal. IMPRESSION: 1. No acute pulmonary findings. 2. Inferior subluxation of the right humerus relative to the glenoid. Please correlate with physical exam. Labs 01/28/24 05:35 01/28/24 05:35 Labs: Laboratory Results - last 24 hr 01/27/24 01/27/24 17:53 19:06 WBC 6.61 RBC 3.78 L Hgb 11.5 L Hct 35.5 L MCV 94 MCH 30.4 MCHC 32.4 RDW 16.3 H Plt Count 144 MPV 12.2 H Immature Gran % 0.5 Neutrophils % 90.7 Lymphocytes % 5.3 Monocytes % 3.3 Eosinophils % 0.2 Basophils % 0.0 Nucleated RBC % 0.0 Absolute Neutrophils 6.00 Absolute Lymphocytes 0.35 L Absolute Monocytes 0.22 Absolute Eosinophils 0.01 Absolute Basophils 0.00 PT 12.1 H INR 1.2 H Sodium 146 H Potassium 4.7 Chloride 111 H Carbon Dioxide 23.4 Anion Gap 11.6 H BUN 63 H Creatinine 3.5 H Est GFR (CKD-EPI 2020) 18.12 Glucose 308 H Calcium 8.2 L Magnesium 1.9 Total Bilirubin 0.61 AST 33 ALT 75 H Alkaline Phosphatase 100 Troponin I < 50 NT-Pro-B Natriuret Pep > 86527 H Total Protein 5.8 L Albumin 3.0 L Urine Color Yellow Urine Clarity Clear Urine pH 5.5 Ur Specific [place] >= 1.030 H Urine Protein Negative Urine Ketones Negative Urine Blood Trace-intact H Urine Nitrite Positive H Urine Bilirubin Negative Urine Urobilinogen 0.2 Ur Leukocyte Esterase Trace H Urine Glucose Negative Last Vital Signs Temp 36.5 C 01/27/24 15:46 Pulse 97 H 01/27/24 19:16 Resp 25 H 01/27/24 19:16 BP 134/86 01/27/24 19:16 Pulse Ox 98 01/27/24 19:16 Time Spent Time spent with Patient: >75 minutes Time was spent: preparing to see the patient(eg.review tests), obtaining and/or reviewing separately otained hiistory, ordering medications,tests, procedures, referring, communicating with other health nurse care manager, indepentently interpreting results and care coordination
[2024-01-27] MEDS: Furosemide 100 MG/10 ML VIAL 80 MG IVP (19:54)
[2024-01-27 20:38] LABS: Hemoglobin A1C 5.8 % (<5.7)
--- OUTSIDE RECORDS SUMMARY | 2024-01-27 20:54 | XMS_ITS | Encounter Summary ---
Author Organization [facility] [place] [address] Care Team Providers Care Weekday Babysitter Name Role Phone Reinier Arceo Primary Care Provider [phone] Encounter Details Date Type Department Care Team (Late st Contact Info) Description 10/04/2023 4:20 PM EDT Office Visit Urology at [facility] [place] [address] Austin Simon MD [facility] [place] [address] Urinary retention Social History Tobacco Use Types Packs/Day Years Used Date Smoking Tobacco: Never Smokeless Tobacco: Never Alcohol Use Standard Drinks/Week Comments Never 0 (1 standard drink = 0.6 oz pur e alcohol) [facility] Inpatient Questions Answer Date Recorded Does [...] Simon MD - 10/04/2023 4:20 PM EDT [facility] SECTION OF UROLOGY UROLOGY CLINIC VISIT Name: [...] note: Found in retention after presenting to [facility] (12/2022) for SOB and CHF exacerbation. [...] has been undergoing monthly catheter exchanges at [facility] Urology Of note, he has a void trial scheduled tomorrow at [facility]. Denies hematuria. He is currently taking [...] above. Austin Simon MD Section of Urology [facility] Office: [phone] documented in this encounter Plan of Treatment Upcoming Encounters Date Type Department Care Team (Late st Contact Info) Description 02/03/2024 10:00 AM EDT Procedure [place] [address] Austin Simon MD [facility] [place] [address] Lindy Box APRN [facility] [place] [address] documented as of this encounter Visit Diagnoses Diagnosis Urinary retention Retention of urine, unspecified documented in this encounter Care Teams Weekday Babysitter Relationship Specialty Start Date End Date Reinier Arceo PA [address] [place] [address] PCP - General Internal Medicine 01/18/23 documented as of this encounter
--- OUTSIDE RECORDS SUMMARY | 2024-01-27 20:54 | XMS_ITS | Encounter Summary ---
Author Organization [facility] [address] Care Team Providers Care Vp Publisher Development Name Role Phone Reinier Arceo Primary Care [...] Gregory PA [address] [place] [address] [facility] Cardiology [address] [place] [id number] Referral ID Status Reason Start Date Expiration Date V isits Requested Visits Authorized [id number] Closed Consult, Test & Treat 10/15/2023 10/14/2024 1 1 Encounter Details Date Type Department Care Team (Latest Contact Info) Description 10/15/2023 Transcribe Orders eDH Incoming Referrals [phone] Reinier Arceo PA [address] [place] [address] Chronic combined systolic (congestive) and [...] 10:00 AM EDT Procedure visit Urology at [facility] [place] [address] Austin Simon MD [facility] [place] [address] Lindy Box APRN [facility] [place] [address] Scheduled Referrals Name Type Priority Associated Diagnoses Order Schedule Referral to Cardiology Outpatient Referral Routine Chronic combined systolic (congestive) and diastolic (congestive) heart failure Ordered: 10/15/2023 documented as of this encounter Visit Diagnoses Diagnosis Chronic combined systolic (congestive) and diastolic (congestive) heart failure documented in this encounter Care Teams Vp Publisher Development Relationship Specialty Start Date End Date Reinier Arceo PA [address] [place] [address] PCP - General Internal Medicine 01/18/23 documented as of this encounter
--- OUTSIDE RECORDS SUMMARY | 2024-01-27 20:54 | XMS_ITS | Clinical Summary ---
Author Organization [facility] Address [facility] [place] [address] Care Team Providers Care Information Systems Operator Name Role Phone Reinier Arceo Primary Care Provider [phone] Allergies No known active allergies Medications Medication [...] Care Team Description 01/26/2024 Telephone Dermatology at [facility] [address] [place] [address] Charo Verma 11/23/2023 Telephone [place]rology [place] [address] Courtney Sainz from Last 3 Months Social History Tobacco Use Types Packs/Day Years Used Date Smoking Tobacco: Never Smokeless Tobacco: Never Tobacco Cessation:Counseling Given: Not Answered Alcohol Use Standard Drinks/Week Comments Never 0 (1 standard drink = 0.6 oz pur e alcohol) [facility] Inpatient Questions Answer Date Recorded [...] 10:00 AM EDT Procedure [place] [address] Austin Simon MD [facility] [place] [address] Lindy Box APRN [facility] [place] [address] Health Maintenance Due Date Last Done Comments [...] Glucose Lvl 153 65 - 199 mg/dL [facility] Comment:Diabetes: >=200 mg/d L plus symptoms BUN 17 10 - 20 mg/dL [facility] Creatinine 2.02(H) 0.80 - 1.50 mg/dL [facility] Sodium 134(L) 135 - 145 mmol/L [facility] Potassium 4.8 3.5 - 5.0 mmol/L [facility] Comment: Please note: ??Patients with WBC >100,000 may have falsely elevated Potassium levels. ??For accurate Potassium quantification in these patients send serum separator tube (gold top) for subsequent determinations. ??Contact the Clinical Chemistry Laboratory if there are any questions. Chloride 98 98 - 107 mmol/L [facility] CO2 23 22 - 31 mmol/L [facility] Anion Gap 13 5 - 15 mmol/L [facility] Calcium 9.6 8.5 - 10.5 mg/dL [facility] Estimated GFR 35(L) >=60 mL/min/1. 73 m?? [facility] Comment: This patient's estimated GFR [...] Brantley MD CHEMISTRY ORDERABLES Performing Organization Address City/[facility]/ZIP Co de Phone Number [facility] [place] [address] * Hepatitis C Antibody (01/20/2023 3:23 PM EDT) Hepatitis C Ab Negative Negative [facility] Blood 01/20/2023 3:23 PM EDT 01/20/2023 3:28 PM EDT Narrative Resulting Agency Comment Spec In Lab Austin Sosa MD IMMUNOLOGY ORDERABLE S Performing Organization Address City/[facility]/ZIP Co de Phone Number [facility] [place] [address] * HDL/Cholesterol Profile (01/18/2023 10:16 PM EDT) Chol, Total 122 mg/dL [facility] Comment: Lower Risk: <200 mg/dL Average Risk: 200-239 mg/dL Higher Risk: >pg=164 mg/dL HDL 27 mg/dL [facility] Comment: Males: ?? Higher Risk: <40 mg/dL Females: ?? Higher Risk: <50 mg/dL Chol/HDL Ratio 4.5 ratio [facility] Chol/HDL Interpretation See Note [facility] Comment: Lipid management should be guided by a patient? s ASCVD risk, goals and preferences. ACC/AHA Guidelines recommend high intensity statin if clinical ASCVD or LDL greater than or equal to 190 mg/dL. http://[employer].com/MZN-MKM-Jbydglkly Measure LDL if Total Cholesterol minus HDL Cholesterol is greater than 220 mg/dL. Adults aged 40-75 with LDL 70-189 mg/dL should have their 10 year ASCVD risk estimated with the ACC/AHA ASCVD risk printed circuit board reworker http://tools.acc.org/NGUMS-Fypg-Moprsvcvw/ Statin should be discussed if risk greater [...] Lab Tanya Vizcarra MD CHEMISTRY ORDERABL ES [facility] [place] [address] * (ABNORMAL) Hemoglobin A1c (01/18/2023 10:16 PM EDT) Hemoglobin A1C 5.7(H) 4.3 - 5.6 % [facility] Comment: Reference Range: 4.3 - [...] Mellitus, Diabetes Care 2013; 36: Suppl. 1, S67-23 Est Avg Gluc 117 mg/dL [facility] Comment: eAG equivalents for [...] into estimated average glucose values. ??Diabetes Care 2008:31(8):3122-0208. Blood 01/18/2023 10:1 6 PM EDT 01/18/2023 10:27 PM EDT Narrative Resulting Agency Comment Spec In Lab Tanya Vizcarra MD CHEMISTRY ORDERABL ES [facility] [place] [address] from Last 3 Months or Most Recently Relevant to Health Maintenance Advance Directives Documents on File Type Date Recorded Patient Building And Grounds Supervisor Expl anation Advance Directives and Livin g Will 01/19/2023 4:14 PM 01/19/2023 * Attempt Cardiopulmonary Resuscitation - Inpatient (Latest Code Status on File) Date Activated Date Inactivated Comments 01/18/2023 7:29 PM 01/27/2023 6:27 PM Question Answer Comments Code Status decision made by: Patient Care Teams Information Systems Operator Relationship Specialty Start Date End Date Reinier Arceo PA [address] [place] [address] PCP - General Internal Medicine 01/18/23
--- OUTSIDE RECORDS SUMMARY | 2024-01-27 20:54 | XMS_ITS | Encounter Summary ---
Author Organization [facility] [place] [address] Care Team Providers Care Division Operations Specialist Name Role Phone Reinier Arceo Primary Care Provider [phone] Encounter Details Date Type Department Care Team (Latest Contact Info) Description 08/04/2023 1:05 PM EST Laboratory Appointment Lab [address] [place] [address] Chronic kidney disease, unspecified CKD [...] 10:00 AM EDT Procedure [place] [address] Austin Simon MD [facility] [place] [address] Lindy Box APRN [facility] [place] [address] documented as of this encounter [...] symptoms BUN 17 10 - 20 mg/dL [facility] Creatinine 2.02(H) 0.80 - 1.50 mg/dL [facility] Sodium 134(L) 135 - 145 mmol/L [facility] Potassium 4.8 3.5 - 5.0 mmol/L [facility] Comment: Please note: ??Patients with WBC >100,000 may have falsely elevated Potassium levels. ??For accurate Potassium quantification in these patients send serum separator tube (gold top) for subsequent determinations. ??Contact the Clinical Chemistry Laboratory if there are any questions. Chloride 98 98 - 107 mmol/L [facility] CO2 23 22 - 31 mmol/L [facility] Anion Gap 13 5 - 15 mmol/L [facility] Calcium 9.6 8.5 - 10.5 mg/dL [facility] Estimated GFR 35(L) >=60 mL/min/1. 73 m?? [facility] [...] Brantley MD CHEMISTRY ORDERABLES Performing Organization Address City/[facility] Co de Phone Number [facility] [place] [address] * Phosphorus (08/04/2023 12:55 PM EST) Phosphorus 3.4 2.5 - 4.5 mg/dL [facility] Blood 08/04/2023 12:5 5 PM EST 08/04/2023 1:44 PM EST Narrative Resulting Agency Comment Spec In Lab Abel Brantley MD CHEMISTRY ORDERABLES Performing Organization Address City/[facility] Co de Phone Number [facility] [place] [address] documented in this encounter Visit Diagnoses Diagnosis Chronic kidney disease, unspecified CKD stage documented in this encounter Care Teams Division Operations Specialist Relationship Specialty Start Date End Date Reinier Arceo PA [address] [place] [address] PCP - General Internal Medicine 01/18/23 documented as of this encounter
--- OUTSIDE RECORDS SUMMARY | 2024-01-27 20:54 | XMS_ITS | Encounter Summary ---
Author Organization [facility] [place] [address] Care Team Providers Care Pastry Mixer Name Role Phone Reinier Arceo Primary Care Provider [phone] Encounter Details Date Type Department Care Team [...] AM EDT Procedure visit Urology at [facility] [place] [address] Austin Simon MD [facility] [place] [address] Lindy Box APRN [facility] [place] [address] documented as of this encounter Visit Diagnoses Not on filedocumented in this encounter Care Teams Pastry Mixer Relationship Specialty Start Date End Date Reinier Arceo PA [address] [place] [address] PCP - General Internal Medicine 01/18/23 documented as of this encounter
--- OUTSIDE RECORDS SUMMARY | 2024-01-27 20:54 | XMS_ITS | Encounter Summary ---
Author Organization [facility] [place] [address] Care Team Providers Care Inkjet Operator Name Role Phone Reinier Arceo Primary Care Provider [phone] Encounter Details Date Type Department Care Team (Late st Contact Info) Description 11/23/2023 Telephone Ne[place] [address] Courtney Sainz Social History Tobacco Use Types Packs/Day Years Used Date Smoking Tobacco: Never Smokeless Tobacco: Never Alcohol Use Standard Drinks/Week Comments Never 0 (1 standard drink = 0.6 oz pur e alcohol) [facility] Inpatient Questions Answer Date Recorded [...] 10:00 AM EDT [place] [address] [place] Simon MD [facility] [place] [address] Lindy Box APRN [facility] [address] documented as of this encounter Visit Diagnoses Not on filedocumented in this encounter Care Teams Inkjet Operator Relationship Specialty Start Date End Date Reinier Arceo PA [address] [place] [address] PCP - General Internal Medicine 01/18/23 documented as of this encounter
--- OUTSIDE RECORDS SUMMARY | 2024-01-27 20:54 | XMS_ITS | Encounter Summary ---
Author Organization [facility] Address [facility] [place] [address] Care Team Providers Care Miner Placer Name Role Phone Reinier Arceo Primary Care Provider [phone] Encounter Details Date Type Department Care Team (Late st Contact Info) Description 01/26/2024 Telephone Dermatology at [facility] [address] [place] [address] Charo Verma Social History Tobacco Use Types [...] that they send the referral again to [phone] (Kathy Mancilla) so either myself or one ofmy colleagues could enter the referral more quickly. Referral is for an urticarial papular full body rash. documented in this encounter Plan of Treatment Upcoming Encounters Date Type Department Care Team (Late st Contact Info) Description 02/03/2024 10:00 AM EDT Procedure [place] [address] [place] Simon MD [facility] [place] [address] Lindy Box APRN [facility] [place] [address] documented as of this encounter Visit Diagnoses Not on filedocumented in this encounter Care Teams Miner Placer Relationship Specialty Start Date End Date Reinier Arceo PA [address] [place] [address] PCP - General Internal Medicine 01/18/23 documented as of this encounter
--- OUTSIDE RECORDS SUMMARY | 2024-01-27 20:54 | XMS_ITS | Encounter Summary ---
Author Organization [facility] [place] [address] Care Team Providers Care Seo Consultant Name Role Phone Reinier Arceo Primary Care Provider [phone] Encounter Details Date Type Department Care Team [...] AM EDT Procedure visit Urology at [facility] [place] [place] [address] [place] Simon MD [facility] [place] [address] Lindy Box APRN [facility] [place] [address] documented as of this encounter Visit Diagnoses Not on filedocumented in this encounter Care Teams Seo Consultant Relationship Specialty Start Date End Date Reinier Arceo PA [address] [place] [address] PCP - General Internal Medicine 01/18/23 documented as of this encounter
--- OUTSIDE RECORDS SUMMARY | 2024-01-27 20:54 | XMS_ITS | Encounter Summary ---
Author Organization [place] [address] Care Team Providers Care Caregivers Homecare Name Role Phone Reinier Arceo Primary Care Provider [phone] Reason for Referral * Diagnostic Test (Routine) - Closed Specialty Diagnoses / Procedures Referred By Contac t Referred To Contact Radiology Diagnoses Benign prostatic hyperplasia with urinary retention Scrotal swelling Procedures CT Pelvis Soft Tissue (GI WOMEN'S APPAREL SALESPERSON) wo Contrast Meche Donato APRN [facility] [place] [address] [facility] [place] [address] Referral ID Status Reason Start Date Expiration Date V isits Requested Visits Authorized [id number] Closed Specialty Service Requested 07/07/2023 01/04/2025 1 1 Reason for Visit * Diagnostic Test (Routine) - Closed Specialty Diagnoses / Procedures Referred By Contbella t Referred To Contact Radiology Diagnoses Benign prostatic hyperplasia with urinary retention Scrotal swelling Procedures CT Pelvis Soft Tissue (GI WOMEN'S APPAREL SALESPERSON) wo Contrast Meche Donato APRN [facility] [place] [address] [facility] [place] [address] Referral ID Status Reason Start Date Expiration Date V isits Requested Visits Authorized [id number] Closed Specialty Service Requested 07/07/2023 01/04/2025 1 1 Encounter Details Date Type Department Care Team (Latest Contact Info) Description 09/14/2023 10:43 AM EDT - 09/14/2023 11:59 PM EDT Hospital Encounter CT Scan at [facility] [place] [address] Meche Donato APRN [facility] [place] [address] Benign prostatic hyperplasia with urinary retention; Scrotal swelling Discharge Disposition: Home Social History Tobacco Use Types Packs/Day Years Used Date Smoking Tobacco: Never Smokeless Tobacco: Never Alcohol Use Standard Drinks/Week Comments Never 0 (1 standard drink = 0.6 oz pur e alcohol) [facility] Inpatient Questions Answer Date Recorded Does [...] 10:00 AM EDT Procedure [place] [address] [place] Simon MD [facility] [place] [address] Lindy Box APRN [facility] [place] [address] documented as of this encounter Procedures Procedure Name Priority Date/Time Associated Diagnosis Comments CT PELVIS SOFT TISSUE (GI WOMEN'S APPAREL SALESPERSON) WO CONTRAST Routine 09/14/2023 1:38 PM EDT Benign prostatic hyperplasia with urinary retention Scrotal swelling documented in this encounter Results * CT Pelvis Soft Tissue (GI WOMEN'S APPAREL SALESPERSON) wo Contrast (09/14/2023 1:38 PM EDT) Anatomical [...] who have questions please contact the health pet care associate that requested your imaging first. ? Electronically signed by: Halie Shell MD, [facility] ([phone]), at 09/14/2023 4:39 PM Narrative 09/14/2023 4:39 PM EDT EXAMINATION: CT PELVIS SOFT TISSUE (GI WOMEN'S APPAREL SALESPERSON) WO CONTRAST CLINICAL HISTORY: prostate sizing and [...] 09/14/2023 EXAMINATION: CT PELVIS SOFT TISSUE (GI WOMEN'S APPAREL SALESPERSON) WO CONTRAST CLINICAL HISTORY: prostate sizing and [...] patients who have questions please contactthe health pet care associate that requested your imaging first. Electronically signed by: Halie Shell MD, [facility]([phone]), at 09/14/2023 4:39 PM Meche Donato APRN IMG CT ORDERABLES documented in this encounter Visit Diagnoses Diagnosis Benign prostatic hyperplasia with urinary retention Scrotal swelling Edema of male genital organs documented in this encounter Care Teams Caregivers Homecare Relationship Specialty Start Date End Date Reinier Arceo PA [address] [place] [address] PCP - General Internal Medicine 01/18/23 documented as of this encounter
--- OUTSIDE RECORDS SUMMARY | 2024-01-27 20:54 | XMS_ITS | Encounter Summary ---
Author Organization [facility] [place] [address] Care Team Providers Care Inpatient Coder Name Role Phone Reinier Arceo Primary Care Provider [phone] Encounter Details Date Type Department Care Team (Late st Contact Info) Description 09/17/2023 Telephone Urology at [facility] [place] [place] [address] Meche Donato APRN [facility] [place] [place] [address] Social History Tobacco Use Types Packs/Day Years Used Date Smoking Tobacco: Never Smokeless Tobacco: Never Alcohol Use Standard Drinks/Week Comments Never 0 (1 standard drink = 0.6 oz pur e alcohol) [facility] Inpatient Questions Answer Date Recorded Does Anyone [...] 10:00 AM EDT [place] [address] [place] Simon MD [facility] [place] [address] Lindy Box APRN [facility] [place] [address] documented as of this encounter Visit Diagnoses Not on filedocumented in this encounter Care Teams Inpatient Coder Relationship Specialty Start Date End Date Reinier Arceo PA [address] [place] [address] PCP - General Internal Medicine 01/18/23 documented as of this encounter
--- OUTSIDE RECORDS SUMMARY | 2024-01-27 20:54 | XMS_ITS | Encounter Summary ---
Author Organization [facility] [place] [address] Care Team Providers Care Eeg Technician Name Role Phone Reinier Arceo Primary Care Provider [phone] Encounter Details Date Type Department Care Team [...] Urology at [facility] [place] [address] [place] Simon MD [facility] [place] [address] Lindy Box APRN [facility] [place] [address] documented as of this encounter Visit Diagnoses Not on filedocumented in this encounter Care Teams Eeg Technician Relationship Specialty Start Date End Date Reinier Arceo PA [address] [place] [address] PCP - General Internal Medicine 01/18/23 documented as of this encounter
--- OUTSIDE RECORDS SUMMARY | 2024-01-27 20:55 | XMS_ITS | Encounter Summary ---
Author Organization [facility] [place] [address] Care Team Providers Care Soup Person Name Role Phone Reinier Arceo Primary Care Provider [phone] Encounter Details Date Type Department Care Team (Late Contact Info) Description 07/02/2023 Telephone Neph[place] [address] Ava Villegas Social History Tobacco Use Types Packs/Day Years Used Date Smoking Tobacco: Never Smokeless Tobacco: Never Alcohol Use Standard Drinks/Week Comments Never 0 (1 standard drink = 0.6 oz pur e alcohol) [facility] Inpatient Questions Answer Date Recorded Does [...] 10:00 AM EDT [place] [address] [place] Simon MD [facility] [place] [address] Lindy Box [address]N [facility] [place] [address] documented as of this encounter Visit Diagnoses Not on filedocumented in this encounter Care Teams Soup Person Relationship Specialty Start Date End Date Reinier Arceo PA [address] [place] [address] PCP - General Internal Medicine 01/18/23 documented as of this encounter
--- OUTSIDE RECORDS SUMMARY | 2024-01-27 20:55 | XMS_ITS | Encounter Summary ---
Author Organization [facility] Address [facility] [place] [address] Care Team Providers Care Air Valve Mechanic Name Role Phone Reinier Arceo Primary Care Provider [phone] Encounter Details Date Type Department Care Team [...] 10:00 AM EDT Procedure [place] [address] [place] Simon MD [facility] [place] [address] Lindy Box APRN [facility] [place] [address] documented as of this encounter Visit Diagnoses Not on filedocumented in this encounter Care Teams Air Valve Mechanic Relationship Specialty Start Date End Date Reinier Arceo PA [address] [place] [address] PCP - General Internal Medicine 01/18/23 documented as of this encounter
--- OUTSIDE RECORDS SUMMARY | 2024-01-27 20:55 | XMS_ITS | Encounter Summary ---
Author Organization [facility] Address [facility] [place] [address] Care Team Providers Care Customs Broker Name Role Phone Reinier Arceo Primary Care Provider [phone] Encounter Details Date Type Department Care Team [...] 10:00 AM EDT [place] [address] [place] Simon MD [facility] [place] [address] Lindy Box APRN [facility] [place] [address] documented as of this encounter Visit Diagnoses Not on filedocumented in this encounter Care Teams Customs Broker Relationship Specialty Start Date End Date Reinier Arceo PA [address] [place] [address] PCP - General Internal Medicine 01/18/23 documented as of this encounter
--- OUTSIDE RECORDS SUMMARY | 2024-01-27 20:55 | XMS_ITS | Encounter Summary ---
Author Organization [facility] Address [facility] [place] [address] Care Team Providers Care Assistant Broker Name Role Phone Reinier Arceo Primary Care Provider [phone] Encounter Details Date Type Department Care Team (Late st Contact Info) Description 03/03/2023 Telephone [place] [address] Courtney Sainz Social History Tobacco Use Types Packs/Day Years Used Date Smoking Tobacco: Never Alcohol Use Standard Drinks/Week Comments Never 0 (1 standard drink = 0.6 oz pur e alcohol) [facility] Inpatient Questions Answer Date Recorded [...] 03/03/2023 11:08 AM EDT LM with patients insurance case manager Randa to call and schedule a follow up appointment documented in this encounter Plan of Treatment Upcoming Encounters Date Type Department Care Team (Late st Contact Info) Description 02/03/2024 10:00 AM EDT [place] [address] [place] Simon MD [facility] [place] [address] Lindy Box APRN [facility] [place] [address] documented as of this encounter Visit Diagnoses Not on filedocumented in this encounter Care Teams Assistant Broker Relationship Specialty Start Date End Date Reinier Arceo PA [address] [facility] [place] [address] PCP - General Internal Medicine 01/18/23 documented as of this encounter
--- OUTSIDE RECORDS SUMMARY | 2024-01-27 20:55 | XMS_ITS | Encounter Summary ---
Author Organization [facility] Address [facility] [place] [address] Care Team Providers Care Electric Blanket Wirer Name Role Phone Reinier Arceo Primary Care Provider [phone] Encounter Details Date Type Department Care Team (Latest Contact Info) Description 02/24/2023 4:00 PM EDT Office Visit [place]phrology [place] [address] Deonte Lugo MD [facility] [place] [facility] [place] [address] Chronic kidney disease, unspecified CKD stage; Chronic kidney disease, stage 4 (severe) Social History Tobacco Use Types Packs/Day Years Used Date Smoking Tobacco: Never Tobacco Cessation:Counseling Given: Not Answered Alcohol Use Standard Drinks/Week Comments Never 0 (1 standard drink = 0.6 oz pur e alcohol) [facility] Inpatient Questions Answer Date Recorded Does [...] 4:00 PM EDT Hypertension-Nephrology Consultation Miguel Sanchez [id number] ID: [id number] y.o. old male seen [...] with spacer inhalational spacing device (Chris Aerosol [place] Enhancer) Spacer by [facility].(Non- Drug; Combo Route) route. nitroGLYcerin (Nitrostat) 0.4 [...] Visit from 02/24/2023 in Nephrology Hypert[facility] at [facility] Height 165.1 cm (5' 5) Heart Rate [...] ADLs. Went back to hospital briefly [place] and is now in Rehab where he's [...] D supplement has been stopped. F/u scheduled [facility] urology next week [place] for another voiding trial. He failed one [...] (c holecalciferol 5000 U daily or ergocalciferol 77914 U weekly). I phoned Miguel after the [...] 10:00 AM EDT Procedure [place] [address] [place] Simon MD [facility] [place] [address] Lindy Box APRN [facility] [place] [address] documented as of this encounter Procedures Procedure [...] 5:27 PM EDT) Neutrophils % 78.1 % [facility] Neutr Abs (ANC) 5.03 1.70 - 6.10 x10(3)/mc L [facility] Lymphocytes % 12.7 % [facility] Lymphocytes Abs 0.8(L) 0.9 - 3.2 x10(3)/mc L [facility] Monocytes % 6.0 % [facility] Monocyte Abs 0.4 0.3 - 0.9 x10(3)/mc L [facility] Eosinophils % 2.3 % [facility] Eosinophils Abs 0.2 0.0 - 0.4 x10(3)/[facility] Basophils % 0.6 % [facility] Basophils Abs 0.0 0.0 - 0.1 x10(3)/[facility] Immature Gran % 0.30 % [facility] Comment: Immature granulocytes(IG's)percentage and absolute count will include metamyelocytes, myelocytes, and promyelocytes. Blood smears from CBCs yielding IG's will be scanned manually for concordance. If this scan disagrees with the automated IG or if promyelocytes are noted, a manual differential will be performed. Angelica Gran Abs 0.02 0.00 - 0.04 x10(3)/[facility] Blood 02/24/2023 5:27 PM EDT 02/24/2023 5:35 PM EDT Narrative Resulting Agency Comment Spec In Lab Deonte Lugo MD HEMATOLOGY ORDERABL ES [facility] [place] [address] * (ABNORMAL) Hemogram (02/24/2023 5:27 PM EDT) WBC 6.4 4.0 - 9.5 x10(3)/[facility] RBC 3.96(L) 4.58 - 5.54 x10(6)/[facility] Hemoglobin 12.1(L) 13.7 - 16.5 g/dL [facility] Hematocrit 35.2(L) 40.5 - 48.5 % [facility] MCV 88.9 82.9 - 93.1 fL [facility] MCH 30.6 27.5 - 32.1 pg [facility] MCHC 34.4 32.0 - 35.7 g/dL [facility] Platelets 186 145 - 357 x10(3)/[facility] RDWSD 40.8 36.0 - 45.0 fL [facility] RDWCV 12.4 11.4 - 13.8 % [facility] MPV 12.3 7.6 - 12.9 fL [facility] nRBC % Auto 0.3 % [facility] nRBC Abs Auto 0.020(H) 0.000 - 0.000 x10(3)/mcL [facility] Blood 02/24/2023 5:27 PM EDT 02/24/2023 5:35 PM EDT Narrative Resulting Agency Comment Spec In Lab Deonte Lugo MD HEMATOLOGY ORDERABL ES Performing Organization Address [facility]/ZIP Co de Phone Number [facility] [place] [address] * Phosphorus (02/24/2023 5:27 PM EDT) Phosphorus 3.3 2.5 - 4.5 mg/dL [facility] Blood 02/24/2023 5:27 PM EDT 02/24/2023 5:35 PM EDT Narrative Resulting Agency Comment Spec In Lab Yolis Crawford MD CHEMISTRY ORDERABLES Performing Organization Address [facility] Co de Phone Number [facility] [place] [address] * (ABNORMAL) PTH (02/24/2023 5:27 PM EDT) PTH 144(H) 15 - 65 pg/mL [facility] Blood 02/24/2023 5:27 PM EDT 02/24/2023 5:35 PM EDT Narrative Resulting Agency Comment Spec In Lab Yolis Crawford MD CHEMISTRY ORDERABLES Performing Organization Address [facility]/ZIP Co de Phone Number [facility] [place] [address] * (ABNORMAL) Vitamin D, 25-Hydroxy (02/24/2023 5:27 PM EDT) 25-OH Vit D Total 16(L) 21 - 100 ng/mL [facility] 25-OH Vit D Interp Deficient [facility] Blood 02/24/2023 5:27 PM EDT 02/24/2023 5:35 PM EDT Narrative Resulting Agency Comment Spec In Lab Ylois Crawford MD CHEMISTRY ORDERABLES [facility] [place] [address] * (ABNORMAL) Basic Metabolic Panel (non-fasting) (02/24/2023 5:27 PM EDT) Glucose Lvl 126 65 - 199 mg/dL [facility] Comment:Diabetes: >=200 mg/d L plus symptoms BUN 49(H) 10 - 20 mg/dL [facility] Creatinine 4.18(H) 0.80 - 1.50 mg/dL [facility] Sodium 137 135 - 145 mmol/L [facility] Potassium 4.5 3.5 - 5.0 mmol/L [facility] Comment: Please note: ??Patients with WBC >100,000 may have falsely elevated Potassium levels. ??For accurate Potassium quantification in these patients send serum separator tube (gold top) for subsequent determinations. ??Contact the Clinical Chemistry Laboratory if there are any questions. Chloride 104 98 - 107 mmol/L [facility] CO2 20(L) 22 - 31 mmol/L [facility] Anion Gap 13 5 - 15 mmol/L [facility] Calcium 9.4 8.5 - 10.5 mg/dL [facility] Estimated GFR 15(L) >=60 mL/min/1. 73 m?? [facility] Comment: This patient's estimated GFR [...] Crawford MD CHEMISTRY ORDERABLES Performing Organization Address City/[facility]/ZIP Co de Phone Number [facility] [place] [address] * Sodium, urine, random (02/24/2023 4:00 PM EDT) U Sodium <20 mmol/L [facility] Urine Urine / Unknown 02/24/2023 4 :00 PM EDT 02/24/2023 5:25 PM EDT Narrative Resulting Agency Comment Spec In Lab Deonte Lugo MD URINE ORDERABLES Performing Organization Address [facility] Co de Phone Number [facility] [place] [address] * (ABNORMAL) Protein/Creatinine Ratio, urine (02/24/2023 4:00 PM EDT) U Creatinine 64 mg/dL [facility] U Protein Ran 28(H) 0 - 12 mg/dL [facility] Prot/Cre Ratio 0.4 ratio [facility] Urine 02/24/2023 4:00 PM EDT 02/24/2023 5:25 PM EDT Narrative Resulting Agency Comment Spec In Lab Yolis Crawford MD URINE ORDERABLES Performing Organization Address City/[facility]/ZIP Co de Phone Number [facility] [place] [address] * (ABNORMAL) U Albumin/Cre Ratio (02/24/2023 4:00 PM EDT) Alb/Cr Ratio, Random 196(H) 0 - 29 mcg/mg Cr [facility] Comment: Reference Ranges: <30 mcg/mg: Normal [...] 362 U Albumin Conc, Random 125.5 mg/L [facility] U Creatinine 64 mg/dL [facility] Urine 02/24/2023 4:00 PM EDT 02/24/2023 5:25 PM EDT Narrative Resulting Agency Comment Spec In Lab Yolis Crawford MD URINE ORDERABLES [facility] [place] [address] documented in this encounter Visit Diagnoses Diagnosis Chronic kidney disease, unspecified CKD stage Chronic kidney disease, stage 4 (severe) documented in this encounter Care Teams Electric Blanket Wirer Relationship Specialty Start Date End Date Reinier Arceo PA [address] [place] [address] PCP - General Internal Medicine 01/18/23 documented as of this encounter
--- OUTSIDE RECORDS SUMMARY | 2024-01-27 20:55 | XMS_ITS | Encounter Summary ---
Author Organization [facility] [place] [address] Care Team Providers Care Bellows Filler Name Role Phone AdisReinier ELSIE Primary Care Provider [phone] Encounter Details Date Type Department Care Team (Late st Contact Info) Description 07/13/2023 [place] [id number] Meche Donato APRN [facility] [address] [place] [address] Social History Tobacco Use Types Packs/Day Years Used Date Smoking Tobacco: Never Smokeless Tobacco: Never Alcohol Use Standard Drinks/Week Comments Never 0 (1 standard drink = 0.6 oz pur e alcohol) [facility] Inpatient Questions Answer Date Recorded [...] 10:00 AM EDT [place] [phone] Austin Simon MD [facility] [address] [place] [address] Lindy Box SUPPORT SERVICE TECH [facility] [address] [place] [address] documented as of this encounter Visit Diagnoses Not on filedocumented in this encounter Care Teams Bellows Filler Relationship Specialty Start Date End Date Reinier Arceo PA [address] [place] [address] PCP - General Internal Medicine 01/18/23 documented as of this encounter
--- OUTSIDE RECORDS SUMMARY | 2024-01-27 20:55 | XMS_ITS | Encounter Summary ---
Author Organization [facility] [place] [address] Care Team Providers Care Mining Captain Name Role Phone Reinier Arceo Primary Care Provider [phone] Encounter Details Date Type Department Care Team [...] 10:00 AM EDT Procedure visit Urology at [facility] [place] [address] Austin Simon MD [facility] [place] [address] Lindy Box APRN [facility] [place] [address] documented as of this encounter Visit Diagnoses Not on filedocumented in this encounter Care Teams Mining Captain Relationship Specialty Start Date End Date Reinier Arceo PA [address] [place] [address] PCP - General Internal Medicine 01/18/23 documented as of this encounter
--- OUTSIDE RECORDS SUMMARY | 2024-01-27 20:55 | XMS_ITS | Encounter Summary ---
Author Organization [facility] [place] [address] Care Team Providers Care Set Up Mechanic Coating Machines Name Role Phone Reinier Arceo Primary Care Provider [phone] Reason for Visit * Reason Onset Date Comments Medication Refill 07/12/2023 Encounter Details Date Type Department Care Team (Late st Contact Info) Description 07/12/2023 Telephone Urology at [facility] [place] [address] Martin Elizabeth, land reclamation specialist Refill Social History Tobacco Use Types Packs/Day Years Used Date Smoking Tobacco: Never Smokeless Tobacco: Never Alcohol Use Standard Drinks/Week Comments Never 0 (1 standard drink = 0.6 oz pur e alcohol) [facility] Inpatient Questions Answer Date Recorded Does [...] like to do repeat void trial at [facility] at time of next alfaro exchange. We [...] 10:00 AM EDT [place] [address] Austin Simon MD [facility] [place] [address] Lindy Box APRN [facility] [place] [address] documented as of this encounter Visit Diagnoses Not on filedocumented in this encounter Care Teams Set Up Mechanic Coating Machines Relationship Specialty Start Date End Date Reinier Arceo PA [address] [place] [address] PCP - General Internal Medicine 01/18/23 documented as of this encounter
--- OUTSIDE RECORDS SUMMARY | 2024-01-27 20:55 | XMS_ITS | Encounter Summary ---
Author Organization [facility] [place] [address] Care Team Providers Care Deal Architect Name Role Phone Reinier Arceo Primary Care Provider [phone] Encounter Details Date Type Department Care Team [...] 10:00 AM EDT Procedure visit Urology at [facility] [place] [address] Austin Simon MD [facility] [place] [address] Lindy Box APRN [facility] [place] [address] documented as of this encounter Visit Diagnoses Not on filedocumented in this encounter Care Teams Deal Architect Relationship Specialty Start Date End Date Reinier Arceo PA [address] [place] [address] PCP - General Internal Medicine 01/18/23 documented as of this encounter
--- OUTSIDE RECORDS SUMMARY | 2024-01-27 20:55 | XMS_ITS | Encounter Summary ---
Author Organization [facility] Address [facility] [place] [address] Care Team Providers Care Food Service Sales Representatives Name Role Phone Reinier Arceo Primary Care Provider [phone] Encounter Details Date Type Department Care Team (Latest Contact Info) Description 06/23/2023 4:00 PM EST Office Visit Nephrology [place] [address] Deonte Lugo MD [facility] [place] [address] Stage 3b chronic kidney disease (Primary Dx); Stage 3 chronic kidney disease, unspecified whether stage 3a or 3b CKD; Vitamin D deficiency; Hypertension, unspecified type Social History Tobacco Use Types Packs/Day Years Used Date Smoking Tobacco: Never Smokeless Tobacco: Never Tobacco Cessation:Counseling Given: Not Answered Alcohol Use Standard Drinks/Week Comments Never 0 (1 standard drink = 0.6 oz pur e alcohol) [facility] Inpatient Questions Answer Date Recorded [...] included. Nephrology-Hypertension Clinic Follow-up Note Miguel Sanchez [id number] ID: 67 y.o.year-old male for follow up [...] with spacer inhalational spacing device (Chris Aerosol [place] Enhancer) Spacer by [facility].(Non- Drug; Combo Route) route. nitroGLYcerin (Nitrostat) 0.4 [...] Visit from 06/23/2023 in Nephrology Hypertension at [facility] Weight 83.5 kg (184 lb) Height 165.1 [...] past but never in a [facility] (I don't have access to these [...] as documented. Reina Yang MD Nephrology Pager: [phone] documented in this encounter Plan of Treatment Upcoming Encounters Date Type Department Care Team (Late st Contact Info) Description 02/03/2024 10:00 AM EDT Procedure [place] [address] Austin Simon MD [facility] [place] [address] Lindy Box APRN [facility] [place] [address] documented as of this encounter Results * Uric acid (06/23/2023 2:43 PM EST) Pathologist [facility] Uric Acid 7.7 3.5 - 8.5 mg/dL [facility] Blood 06/23/2023 2:43 PM EST 06/23/2023 2:49 PM EST Narrative Resulting Agency Comment Spec In Lab Abel Brantley MD CHEMISTRY ORDERABLES Performing Organization Address [facility] Phone Number [facility] [place] [address] * Phosphorus (06/23/2023 2:43 PM EST) [facility] Phosphorus 3.4 2.5 - 4.5 mg/dL [facility] Blood 06/23/2023 2:43 PM EST 06/23/2023 2:49 PM EST Narrative Resulting Agency Comment Spec In Lab Abel Brantley MD CHEMISTRY ORDERABLES Performing Organization Address [facility] de Phone Number [facility] [place] [address] * Albumin Level (06/23/2023 2:43 PM EST) [facility] Albumin 3.8 3.2 - 5.2 g/dL [facility] Blood 06/23/2023 2:43 PM EST 06/23/2023 2:49 PM EST Narrative Resulting Agency Comment Spec In Lab Abel Brantley MD CHEMISTRY ORDERABLES Performing Organization Address [facility] Phone Number [facility] [place] [address] * (ABNORMAL) Free Light Chains, Serum (06/23/2023 2:43 PM EST) [facility] [place] Free Light Chain 7.48(H) 0.72 - 2.75 mg/dL [facility] Lambda Free Light Chain 4.87(H) 0.57 - 2.15 mg/dL [facility] [place] Lambda FLC Ratio 1.5359 0.4000 - 2.5800 [facility] Blood 06/23/2023 2:43 PM EST 06/23/2023 2:49 PM EST Narrative Resulting Agency Comment Spec In Lab Abel Brantley MD CHEMISTRY ORDERABLES Performing Organization Address City/[facility]/ZIP Co de Phone Number [facility] [place] [address] * (ABNORMAL) Iron and TIBC (06/23/2023 2:43 PM EST) Iron 53 45 - 160 mcg/dL [facility] TIBC 170(L) 250 - 450 mcg/dL [facility] Iron Saturation 31 20 - 50 % [facility] Blood 06/23/2023 2:43 PM EST 06/23/2023 2:49 PM EST Narrative Resulting Agency Comment Spec In Lab Abel Brantley MD CHEMISTRY ORDERABLES Performing Organization Address City/[facility] Co de Phone Number [facility] [place] [address] * (ABNORMAL) Cystatin C (06/23/2023 2:43 PM EST) Cystatin C 2.81(H) 0.67 - 1.21 mg/L [facility] Comment: Test Performed by: [place] [address] Real Estate Office Manager: Jimmy Zavala M.D. Ph.D.; CLIA# [id number] Cystatin C eGFR 19(L) >60 mL/min/BS A [facility] Comment: Estimated GFR calculated using [...] the new assay. Test Performed by: [facility] [address] [address] Real Estate Office Manager: Jimmy Zavala M.D. Ph.D.; CLIA# [id number] Blood 06/23/2023 2:43 PM EST 06/23/2023 4:05 PM EST Narrative Resulting Agency Comment Spec In Lab Abel rBantley MD CHEMISTRY ORDERABLES Performing Organization Address [facility] Co de Phone Number [facility] [place] [address] * (ABNORMAL) Vitamin D, 25-Hydroxy (06/23/2023 2:43 PM EST) 25-OH Vit D Total 13(L) 21 - 100 ng/mL [facility] 25-OH Vit D Interp Deficient [facility] Blood 06/23/2023 2:43 PM EST 06/23/2023 2:49 PM EST Narrative Resulting Agency Comment Spec In Lab Abel Brantley MD CHEMISTRY ORDERABLES Performing Organization Address [facility] Co de Phone Number [facility] [place] [address] * (ABNORMAL) Ferritin (06/23/2023 2:43 PM EST) Ferritin 596(H) 31 - 409 ng/mL [facility] Comment: Please note that as of 06/02/2023, the reference intervals for Ferritin have been updated. Blood 06/23/2023 2:43 PM EST 06/23/2023 2:49 PM EST Narrative Resulting Agency Comment Spec In Lab Abel Brantley MD CHEMISTRY ORDERABLES Performing Organization Address City/[facility]/ZIP Co de Phone Number [facility] [place] [address] * (ABNORMAL) PTH (06/23/2023 2:43 PM EST) PTH 110(H) 15 - 65 pg/mL [facility] Blood 06/23/2023 2:43 PM EST 06/23/2023 2:49 PM EST Narrative Resulting Agency Comment Spec In Lab Abel Brantley MD CHEMISTRY ORDERABLES Performing Organization Address City/State/[facility] Co de Phone Number [facility] [place] [address] * (ABNORMAL) Basic Metabolic Panel (non-fasting) (06/23/2023 2:43 PM EST) Glucose Lvl 110 65 - 199 mg/dL [facility] Comment:Diabetes: >=200 mg/d L plus symptoms BUN 17 10 - 20 mg/dL [facility] Creatinine 2.10(H) 0.80 - 1.50 mg/dL [facility] Sodium 134(L) 135 - 145 mmol/L [facility] Potassium 4.7 3.5 - 5.0 mmol/L [facility] Comment: Please note: ??Patients with WBC >100,000 may have falsely elevated Potassium levels. ??For accurate Potassium quantification in these patients send serum separator tube (gold top) for subsequent determinations. ??Contact the Clinical Chemistry Laboratory if there are any questions. Chloride 101 98 - 107 mmol/L [facility] CO2 20(L) 22 - 31 mmol/L [facility] Anion Gap 13 5 - 15 mmol/L [facility] Calcium 8.9 8.5 - 10.5 mg/dL [facility] Estimated GFR 34(L) >=60 mL/min/1. 73 m?? [facility] Comment: This patient's estimated GFR [...] In Lab Abel Brantley MD CHEMISTRY ORDERABLES [facility] [place] [address] documented in this encounter Visit Diagnoses Diagnosis Stage 3b chronic kidney disease- Primary Stage 3 chronic kidney disease, unspecified whether stage 3a or 3b CKD Vitamin D deficiency Unspecified vitamin D deficiency Hypertension, unspecified type documented in this encounter Care Teams Food Service Sales Representatives Relationship Specialty Start Date End Date Reinier Arceo PA [address] [place] [address] PCP - General Internal Medicine 01/18/23 documented as of this encounter
--- OUTSIDE RECORDS SUMMARY | 2024-01-27 20:55 | XMS_ITS | Encounter Summary ---
Author Organization [facility] [place] [address] Care Team Providers Care Test And Balance Engineer Name Role Phone Reinier Arceo Primary Care Provider [phone] Encounter Details Date Type Department Care Team (Latest Contact Info) Description 06/23/2023 2:30 PM EST Laboratory Appointment Lab [address] [place] [address] Chronic kidney disease, unspecified CKD stage; Stage 3 chronic kidney disease, unspecified whether stage 3a or 3b CKD Social History Tobacco Use Types Packs/Day Years Used Date Smoking Tobacco: Never Smokeless Tobacco: Never Alcohol Use Standard Drinks/Week Comments Never 0 (1 standard drink = 0.6 oz pur e alcohol) [facility] Inpatient Questions Answer Date [...] 10:00 AM EDT [place] [address] Austin Simon MD [facility] [place] [address] Lindy Box APRN [facility] [place] [address] documented as of this encounter [...] 2:43 PM EST) Neutrophils % 69.8 % [facility] Neutr Abs (ANC) 5.06 1.70 - 6.10 x10(3)/[facility] Lymphocytes % 19.0 % [facility] Lymphocytes Abs 1.4 0.9 - 3.2 x10(3)/[facility] Monocytes % 8.1 % [facility] Monocyte Abs 0.6 0.3 - 0.9 x10(3)/[facility] Eosinophils % 1.8 % [facility] Eosinophils Abs 0.1 0.0 - 0.4 x10(3)/[facility] Basophils % 1.0 % [facility] Basophils Abs 0.1 0.0 - 0.1 x10(3)/[facility] Immature Gran % 0.30 % [facility] Comment: Immature granulocytes(IG's)percentage and absolute count will include metamyelocytes, myelocytes, and promyelocytes. Blood smears from CBCs yielding IG's will be scanned manually for concordance. If this scan disagrees with the automated IG or if promyelocytes are noted, a manual differential will be performed. Angelica Gran Abs 0.02 0.00 - 0.04 x10(3)/[facility] Blood 06/23/2023 2:43 PM EST 06/23/2023 2:49 PM EST Narrative Resulting Agency Comment Spec In Lab Deonte Lugo MD HEMATOLOGY ORDERABL ES [facility] [place] [address] * (ABNORMAL) Hemogram (06/23/2023 2:43 PM EST) WBC 7.2 4.0 - 9.5 x10(3)/[facility] RBC 4.16(L) 4.58 - 5.54 x10(6)/[facility] Hemoglobin 12.1(L) 13.7 - 16.5 g/dL [facility] Hematocrit 35.6(L) 40.5 - 48.5 % [facility] MCV 85.6 82.9 - 93.1 fL [facility] MCH 29.1 27.5 - 32.1 pg [facility] MCHC 34.0 32.0 - 35.7 g/dL [facility] Platelets 205 145 - 357 x10(3)/[facility] RDWSD 42.2 36.0 - 45.0 [facility] RDWCV 13.6 11.4 - 13.8 % [facility] MPV 12.1 7.6 - 12.9 [facility] nRBC % Auto 0.0 % [facility] nRBC Abs Auto 0.000 0.000 - 0.000 x10(3)/[facility] Blood 06/23/2023 2:43 PM EST 06/23/2023 2:49 PM EST Narrative Resulting Agency Comment Spec In Lab Deonte Lugo MD HEMATOLOGY ORDERABL ES Performing Organization Address City/State/[facility] Co de Phone Number [facility] [place] [address] * (ABNORMAL) Basic Metabolic Panel (non-fasting) (06/23/2023 2:43 PM EST) Glucose Lvl 110 65 - 199 mg/dL [facility] Comment:Diabetes: >=200 mg/d L plus symptoms BUN 17 10 - 20 mg/dL [facility] Creatinine 2.10(H) 0.80 - 1.50 mg/dL [facility] Sodium 134(L) 135 - 145 mmol/L [facility] Potassium 4.7 3.5 - 5.0 mmol/L [facility] Comment: Please note: ??Patients with WBC >100,000 may have falsely elevated Potassium levels. ??For accurate Potassium quantification in these patients send serum separator tube (gold top) for subsequent determinations. ??Contact the Clinical Chemistry Laboratory if there are any questions. Chloride 101 98 - 107 mmol/L [facility] CO2 20(L) 22 - 31 mmol/L [facility] Anion Gap 13 5 - 15 mmol/L [facility] Calcium 8.9 8.5 - 10.5 mg/dL [facility] Estimated GFR 34(L) >=60 mL/min/1. 73 m?? [facility] [...] In Lab Abel Brantley MD CHEMISTRY ORDERABLES [facility] [place] [address] * (ABNORMAL) PTH (06/23/2023 2:43 PM EST) PTH 110(H) 15 - 65 pg/mL [facility] Blood 06/23/2023 2:43 PM EST 06/23/2023 2:49 PM EST Narrative Resulting Agency Comment Spec In Lab Abel Brantley MD CHEMISTRY ORDERABLES Performing Organization Address [place]/[facility]/ZIP Co de Phone Number [facility] [place] [address] * (ABNORMAL) Ferritin (06/23/2023 2:43 PM EST) Ferritin 596(H) 31 - 409 ng/mL [facility] Comment: Please note that as of 06/02/2023, the reference intervals for Ferritin have been updated. Blood 06/23/2023 2:43 PM EST 06/23/2023 2:49 PM EST Narrative Resulting Agency Comment Spec In Lab Abel Brantley MD CHEMISTRY ORDERABLES Performing Organization Address [place]/[facility] Co de Phone Number [facility] [place] [address] * (ABNORMAL) Vitamin D, 25-Hydroxy (06/23/2023 2:43 PM EST) 25-OH Vit D Total 13(L) 21 - 100 ng/mL [facility] 25-OH Vit D Interp Deficient [facility] Blood 06/23/2023 2:43 PM EST 06/23/2023 2:49 PM EST Narrative Resulting Agency Comment Spec In Lab Abel Brantley MD CHEMISTRY ORDERABLES Performing Organization Address [place]/[facility] Co de Phone Number [facility] [place] [address] * (ABNORMAL) Cystatin C (06/23/2023 2:43 PM EST) Cystatin C 2.81(H) 0.67 - 1.21 mg/L [facility] Comment: Test Performed by: [address] [address] Stitch Welder: Jimmy Zavala M.D. Ph.D.; CLIA# [id number] Cystatin C eGFR 19(L) >60 mL/min/BS A [facility] Comment: Estimated GFR calculated using [...] with the new assay. Test Performed by: [place] [address] Stitch Welder: Jimmy Zavala M.D. Ph.D.; CLIA# [id number] Blood 06/23/2023 2:43 PM EST 06/23/2023 4:05 PM EST Narrative Resulting Agency Comment Spec In Lab Abel Brantley MD CHEMISTRY ORDERABLES Performing Organization Address [place]/[facility] Co de Phone Number [facility] [place] [address] * (ABNORMAL) Iron and TIBC (06/23/2023 2:43 PM EST) Pathologist [facility] Iron 53 45 - 160 mcg/dL [facility] TIBC 170(L) 250 - 450 mcg/dL [facility] Iron Saturation 31 20 - 50 % [facility] Blood 06/23/2023 2:43 PM EST 06/23/2023 2:49 PM EST Narrative Resulting Agency Comment Spec In Lab Abel Brantley MD CHEMISTRY ORDERABLES Performing Organization Address [place]/[facility] Co de Phone Number [facility] [place] [address] * (ABNORMAL) Free Light Chains, Serum (06/23/2023 2:43 PM EST) [place] Free Light Chain 7.48(H) 0.72 - 2.75 mg/dL [facility] Lambda Free Light Chain 4.87(H) 0.57 - 2.15 mg/dL [facility] [place] Lambda FLC Ratio 1.5359 0.4000 - 2.5800 [facility] Blood 06/23/2023 2:43 PM EST 06/23/2023 2:49 PM EST Narrative Resulting Agency Comment Spec In Lab Abel Brantley MD CHEMISTRY ORDERABLES Performing Organization Address [place]/[facility] de Phone Number [facility] [place] [address] * Albumin Level (06/23/2023 2:43 PM EST) Albumin 3.8 3.2 - 5.2 g/dL [facility] Blood 06/23/2023 2:43 PM EST 06/23/2023 2:49 PM EST Narrative Resulting Agency Comment Spec In Lab Abel Brantley MD CHEMISTRY ORDERABLES Performing Organization Address [facility] de Phone Number [facility] [place] [address] * Phosphorus (06/23/2023 2:43 PM EST) Phosphorus 3.4 2.5 - 4.5 mg/dL [facility] Blood 06/23/2023 2:43 PM EST 06/23/2023 2:49 PM EST Narrative Resulting Agency Comment Spec In Lab Abel Brantley MD CHEMISTRY ORDERABLES Performing Organization Address [facility] de Phone Number [facility] [place] [address] * Uric acid (06/23/2023 2:43 PM EST) Uric Acid 7.7 3.5 - 8.5 mg/dL [facility] Blood 06/23/2023 2:43 PM EST 06/23/2023 2:49 PM EST Narrative Resulting Agency Comment Spec In Lab Abel Brantley MD CHEMISTRY ORDERABLES [facility] [place] [address] documented in this encounter Visit Diagnoses Diagnosis Chronic kidney disease, unspecified CKD stage Stage 3 chronic kidney disease, unspecified whether stage 3a or 3b CKD documented in this encounter Care Teams Test And Balance Engineer Relationship Specialty Start Date End Date Reinier Arceo PA [address] [place] [address] PCP - General Internal Medicine 01/18/23 documented as of this encounter
--- OUTSIDE RECORDS SUMMARY | 2024-01-27 20:55 | XMS_ITS | Encounter Summary ---
[place] [address] Care Team Providers Care Clothes Ironer Name Role Phone Reinier Arceo Primary Care Provider [phone] Reason for Referral * Diagnostic Test (Routine) - Closed Specialty Diagnoses / Procedures Referred By Fady park Referred To Contact Radiology Diagnoses Benign prostatic hyperplasia with urinary retention Scrotal swelling Procedures CT Pelvis Soft Tissue (GI REDRAWER) wo Contrast Meche Donato APRN [facility] [place] [address] [facility] [place] [address] Referral ID Status Reason Start Date Expiration Date V isits Requested Visits Authorized [id number] Closed Specialty Service Requested 07/07/2023 01/04/2025 1 1 Reason for Visit * Consultation (Routine) - Authorized Specialty Diagnoses / Procedures Referred By Fady park Referred To Contact Urology Diagnoses Benign prostatic hyperplasia with lower urinary tract symptoms, symptom details unspecified Other retention of urine Tiffanie Muñoz APRN [address] [place] [address] [facility] [place] [address] Referral ID Status Reason Start Date Expiration Date Visits Requested Visits Authorized [id number] Authorized Consult, Test & Treat PCP Updated and/or Approved 06/01/2023 05/31/2024 6 6 Encounter Details Date Type Department Care Team ([facility] st Contact Info) Description 07/07/2023 11:20 AM EST Office [place] [address] Meche Donato APRN [facility] [place] [place] [address] Screening PSA (prostate specific antigen); Benign prostatic [...] PSA results come back. - Continue with alfrao exchanges with home Urologist, recommend doing void trial one more time as finasteride can sometimes take up to 6 months to relieve obstruction. If still unable to void ok to stop finasteride and will proceed with BPH surgery based on prostate size. documented in this encounter Progress Notes * Meche Donato, REVENUE SPECIALIST - 07/07/2023 11:20 AM EST [facility] SECTION OF UROLOGY UROLOGY CLINIC VISIT [...] retention was initially discovered when presenting to [facility] ER for SOB and CHF exacerbation.He was [...] has been undergoing monthly catheter exchanges at [facility] Urology, last documented void [...] TIMES DAILY inhalational spacing device (Chris Aerosol Stanly Enhancer) Spacer Misc.(Non-Drug; Combo Route) ketoconazole (Nizoral) [...] like to do repeat void trial at [facility] at time of next [...] satisfaction. Meche Donato APRN Section of Urology [facility] documented in this encounter Plan of Treatment Upcoming Encounters Date Type Department Care Team (Late st Contact Info) Description 02/03/2024 10:00 AM EDT Procedure [place] [address] Austin Simon MD [facility] [place] [address] Lindy Box APRN [facility] [place] [address] documented as of this encounter Procedures Procedure Name Priority Date/Time Associated Diagnosis Comments HC PROSTATE SPECIFIC AG SCREENING Routine 07/07/2023 12:21 PM EST Screening PSA (prostate specific antigen) documented in this encounter Results * CT Pelvis Soft Tissue (GI REDRAWER) wo Contrast (09/14/2023 1:38 PM EDT) Anatomical [...] who have questions please contact the health rn medicare that requested your imaging first. ? Narrative 09/14/2023 4:39 PM EDT EXAMINATION: CT PELVIS SOFT TISSUE (GI REDRAWER) WO CONTRAST CLINICAL HISTORY: prostate sizing and [...] 09/14/2023 EXAMINATION: CT PELVIS SOFT TISSUE (GI REDRAWER) WO CONTRAST CLINICAL HISTORY: prostate sizing and [...] visceraand vasculature. Urinary Bladder: Decompressed with a Lafaro catheter. Most notable multiplefoci of intraluminal air [...] patients who have questions please contactthe health rn medicare that requested your imaging first. Meche Donato APRN IMG CT ORDERABLES * PSA Screen (07/07/2023 12:21 PM EST) PSA Total 1.62 0.00 - 4.00 ng/mL [facility] Comment: PLEASE NOTE: The above reference [...] Lab Meche Donato APRN CHEMISTRY ORDERABLE S [facility] [place] [address] documented in this encounter Visit Diagnoses Diagnosis Screening PSA (prostate specific antigen) Special screening for malignant neoplasm of prostate Benign prostatic hyperplasia with urinary retention Scrotal swelling Edema of male genital organs Benign prostatic hyperplasia with urinary retention Scrotal swelling Edema of male genital organs documented in this encounter Care Teams Clothes Ironer Relationship Specialty Start Date End Date Reinier Arceo PA [address] [place] [address] PCP - General Internal Medicine 01/18/23 documented as of this encounter
--- OUTSIDE RECORDS SUMMARY | 2024-01-27 20:55 | XMS_ITS | Encounter Summary ---
Author Organization [facility] Address [facility] [place] [address] Care Team Providers Care Anthropological Linguist Name Role Phone Reinier Arceo Primary Care Provider [phone] Encounter Details Date Type Department Care Team (Latest Contact Info) Description 08/04/2023 2:30 PM EST Office Visit [place] [address] Reina Yang MD [facility] [place] [address] Chronic kidney disease, unspecified CKD stage; Vitamin D deficiency; Anemia, unspecified type; Elevated ferritin; Secondary hyperparathyroidism of renal origin; Metabolic acidosis; Hyponatremia; Blood albumin decreased compared with prior measurement Social History Tobacco Use Types Packs/Day Years Used Date Smoking Tobacco: Never Smokeless Tobacco: Never Alcohol Use Standard Drinks/Week Comments Never 0 (1 standard drink = 0.6 oz pur e alcohol) [facility] Inpatient Questions Answer Date Recorded Does Anyone [...] doesn't matter. [facility] documented in this encounter Progress Notes * Reina Yang MD - 08/04/2023 2:30 PM EST [facility] NEPHROLOGY AND HYPERTENSION CLINIC PRIMARY CARE PROVIDER: ELSIE Espinoza QUALITY ASSURANCE DIRECTOR: Deonte Lugo MD HISTORY OF PRESENT ILLNESS: [...] 06/23/23 2:43 PM Result Value Ref Range [place] Free Light Chain 7.48 (H) 0.72 - 2.75 mg/dL Lambda Free Light Chain 4.87 (H) 0.57 - 2.15 mg/dL [place] Lambda FLC Ratio 1.5359 0.4000 - 2.5800 [...] - Calcium and phosphorus are at goal. 71-FU-Vzzioax D is very low. Reportedly on ergocalciferol [...] plan, and coordinating care. Reina Yang MD [facility] Nephrology and Hypertension [facility], [address] [place], [place] [id number] E-mail: [email or web address] documented in this encounter Plan of Treatment Upcoming Encounters Date Type Department Care Team (Late st Contact Info) Description 02/03/2024 10:00 AM EDT Procedure [place] [address] Austin Simon MD [facility] [place] [address] Lindy Box APRN [facility] [place] [address] documented as of this encounter Results * Phosphorus (08/04/2023 12:55 PM EST) [facility] Phosphorus 3.4 2.5 - 4.5 mg/dL [facility] Blood 08/04/2023 12:5 5 PM EST 08/04/2023 1:44 PM EST Narrative Resulting Agency Comment Spec In Lab Abel Brantley MD CHEMISTRY ORDERABLES [facility] [place] [address] * (ABNORMAL) Basic Metabolic Panel (non-fasting) (08/04/2023 12:55 PM EST) Pathologist [facility] Glucose Lvl 153 65 - 199 mg/dL [facility] Comment:Diabetes: >=200 mg/d L plus symptoms BUN 17 10 - 20 mg/dL [facility] Creatinine 2.02(H) 0.80 - 1.50 mg/dL [facility] Sodium 134(L) 135 - 145 mmol/L [facility] Potassium 4.8 3.5 - 5.0 mmol/L [facility] Comment: Please note: ??Patients with WBC >100,000 may have falsely elevated Potassium levels. ??For accurate Potassium quantification in these patients send serum separator tube (gold top) for subsequent determinations. ??Contact the Clinical Chemistry Laboratory if there are any questions. Chloride 98 98 - 107 mmol/L [facility] CO2 23 22 - 31 mmol/L [facility] Anion Gap 13 5 - 15 mmol/L [facility] Calcium 9.6 8.5 - 10.5 mg/dL [facility] Estimated GFR 35(L) >=60 mL/min/1. 73 m?? [facility] Comment: This patient's estimated [...] In Lab Abel Brantley MD CHEMISTRY ORDERABLES [facility] [place] [address] documented in this encounter Visit Diagnoses Diagnosis Chronic kidney disease, unspecified CKD stage Vitamin D deficiency Unspecified vitamin D deficiency Anemia, unspecified type Elevated ferritin Other abnormal blood chemistry Secondary hyperparathyroidism of renal origin Secondary hyperparathyroidism (of renal origin) Metabolic acidosis Acidosis Hyponatremia Hyposmolality and/or hyponatremia Blood albumin decreased compared with prior measurement documented in this encounter Care Teams Anthropological Linguist Relationship Specialty Start Date End Date Reinier Arceo PA [address] [place] [address] PCP - General Internal Medicine 01/18/23 documented as of this encounter
--- OUTSIDE RECORDS SUMMARY | 2024-01-27 20:55 | XMS_ITS | Encounter Summary ---
[place] [address] Care Team Providers Care Adjunct Instructor In Economics Name Role Phone Reinier Arceo Primary Care Provider [phone] Reason for Referral * Consultation (Routine) - Authorized Specialty Diagnoses / Procedures Referred By Fady park Referred To Contact Urology Diagnoses Benign prostatic hyperplasia with lower urinary tract symptoms, symptom details unspecified Other retention of urine Tiffanie Muñoz APRN [address] [place] [address] [facility] [place] [address] Referral ID Status Reason Start Date Expiration Date Visits Requested Visits Authorized [id number] Authorized Consult, Test & Treat PCP Updated and/or Approved 06/01/2023 05/31/2024 6 6 Encounter Details Date Type Department Care Team (Latest Contact Info) Description 06/01/2023 Transcribe Orders eDH Incoming Referrals [phone] Tiffanie Muñoz APRN [address] [place], [place] [id number] Benign prostatic hyperplasia with lower urinary tract [...] AM EDT Procedure visit Urology at [facility] [place] [address] Austin Simon MD [facility] [place] [address] Lindy Box APRN [facility] [place] [address] Scheduled Referrals Name Type Priority Associated Diagnoses Orde r Schedule Referral to Urology Outpatient Referral Routine Benign prostatic hyperplasia with lower urinary tract symptoms, symptom details unspecified Other retention of urine Ordered: 06/01/2023 documented as of this encounter Visit Diagnoses Diagnosis Benign prostatic hyperplasia with lower urinary tract symptoms, symptom details unspecified Other retention of urine documented in this encounter Care Teams Adjunct Instructor In Economics Relationship Specialty Start Date End Date Reinier Arceo PA [address] [place] [address] PCP - General Internal Medicine 01/18/23 documented as of this encounter
--- OUTSIDE RECORDS SUMMARY | 2024-01-27 20:55 | XMS_ITS | Encounter Summary ---
Author Organization [facility] [place] [id number] Care Team Providers Care Industrial Relations Counselor Name Role Phone Reinier Arceo Primary Care Provider [phone] Reason for Referral * Consultation (Routine) - Authorized Specialty Diagnoses / Procedures Referred By Contact Referred To Contact Electrophysiology / Cardiology Diagnoses HFrEF (heart failure with reduced ejection fraction) AICD consideration for HFrEF 29%, Etiology unknown. Please see note Freedom Sunshine MD [facility] [place] [address] [facility] [address] [place] [phone] Referral ID Status Reason Start Date Expiration Date Visits Requested Visits Authorized [id number] Authorized Consult, Test & Treat 04/28/2023 04/27/2024 1 1 Encounter Details Date Type Department Care Team (Late st Contact Info) Description 04/28/2023 2:00 PM EDT Office Visit Cardiology at [address] [phone] Marvin Ba MD [facility] [place] [address] Freedom Sunshine MD [facility] [place] [address] HFrEF (heart failure with reduced ejection fraction) [...] the original note were not included. [facility] [place] [address] CARDIOLOGY OUTPATIENT CLINIC VISIT [facility] Miguel Sanchez 04/28/2023 Referring Providers: ELSIE Espinoza Patrick, PA [address] [place] [address] CHIEF COMPLAINT: CHF Dear ELSIE Nolan [address] [place] [address] HISTORY OF PRESENT ILLNESS: Miguel Sanchez is a 67 y.o. male patient presenting for an outpatient cardiology visit. 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 At the time, patient [...] mouth daily. inhalational spacing device (Chris Aerosol Nicholas Enhancer) Spacer by [facility]Non- Drug; Combo Route) route. magnesium hydroxide (Milk [...] Miguel Sanchez. Sincerely, Freedom Sunshine MD Interventional [facility] 04/28/2023 CC: ELSIE Espinoza I have seen [...] 10:00 AM EDT Procedure [place] [address] Austin Simon MD [facility] [place] [address] Lindy Box APRN [facility] [place] [address] Scheduled Referrals Name Type Priority Associated Diagnoses Order Schedule Referral to Cardiac Electrophysiology Outpatient Referral Routine HFrEF (heart failure with reduced ejection fraction) Ordered: 04/28/2023 documented as of this encounter Visit Diagnoses Diagnosis HFrEF (heart failure with reduced ejection fraction) documented in this encounter Care Teams Industrial Relations Counselor Relationship Specialty Start Date End Date Reinier Arceo PA [address] [place] [address] PCP - General Internal Medicine 01/18/23 documented as of this encounter
--- OUTSIDE RECORDS SUMMARY | 2024-01-27 20:55 | XMS_ITS | Encounter Summary ---
Author Organization [facility] [place] [address] Care Team Providers Care Emergency Nurse Name Role Phone Reinier Arceo Primary Care Provider [phone] Encounter Details Date Type Department Care Team (Late Contact Info) Description 06/10/2023 Telephone Nephrology [place] [phone] Ava Villegas Social History Tobacco Use Types Packs/Day Years Used Date Smoking Tobacco: Never Alcohol Use Standard Drinks/Week Comments Never 0 (1 standard drink = 0.6 oz pur e alcohol) [facility] Inpatient Questions Answer Date Recorded Does [...] 10:00 AM EDT Procedure [place] [id number] Austin Simon MD [facility] [address] Lindy Box APRN [facility] [place] [place] [address] documented as of this encounter Visit Diagnoses Not on filedocumented in this encounter Care Teams Emergency Nurse Relationship Specialty Start Date End Date Reinier Arceo PA [address] [place] [address] PCP - General Internal Medicine 01/18/23 documented as of this encounter
--- OUTSIDE RECORDS SUMMARY | 2024-01-27 20:56 | XMS_ITS | Encounter Summary ---
[place] [address] Care Team Providers Care Button Reclaimer Name Role Phone Reinier Arceo Primary Care Provider [phone] Reason for Referral * Consultation (Routine) - Closed Specialty Diagnoses / Procedures Referred By Contac t Referred To Contact Urology Diagnoses Acute kidney injury Mendel Luna MD [facility] [place] [address] [place] [address] [facility] [place] [address] Referral ID Status Reason Start Date Expiration Date V isits Requested Visits Authorized [id number] Closed Consult, Test & Treat 01/26/2023 01/26/2024 1 1 * Home Health Care (Routine) - Closed Specialty Diagnoses / Procedures Referred By Contac t Referred To Contact Diagnoses Acute kidney injury Mendel Luna MD [facility] [place] [place] [address] [facility] [place] [address] Referral ID Status Reason Start Date Expiration Date V isits Requested Visits Authorized [id number] Closed Consult, Test & Treat 01/26/2023 07/25/2023 999 999 Reason for Visit * Auth/Cert (Routine) Specialty Diagnoses / Procedures Referred By Contac t Referred To Contact Diagnoses Heart failure CHF w/ CLEM Procedures EMERGENCY IPI Tanya Seaman MD [facility] [place] [place] [address] [facility] Referral ID Status Reason Start Date Expiration Date Visits Re quested Visits Authorized [id number] 1 1 Encounter Details Date Type Department Care Team (Latest Contact Info) Description 01/18/2023 5:25 PM EDT - 01/27/2023 4:27 PM EDT Hospital Encounter Heart and Vascular Unit Level 3 [place] [id number] Tanya Seaman MD [facility] [place] [address] Chris Lim MD [facility] [place] [place] [address] Mendel Luna MD [facility] [place] [place] [address] Heart failure, unspecified HF chronicity, unspecified heart [...] 2020), diabetes, hypertension,and hyperlipidemia who presents from [facility] ED after being redirected from [facility] urgent clinic for one month of [...] getting progressively worse he went to the [facility] urgent clinic in [place], [place] and was subsequently transferred to [facility] ED for further management. Upon initial presentation to [facility] ED: The patient was noted to [...] reportedly 40 mg PO) and transferred to [facility] for management of presumed acute on chronic HFrEF and CLEM. Upon direct admission to [facility]: The patient was noted to be afebrile [...] Patient was started on GDMT with metoprolol [id number] mg daily and losartan 25 mg daily. [...] he does have capacity. Spoke with his heel caser Randa Gonzalez prior to discharge who was [...] Time Provider Department Center 01/28/2023 1:00 PM [facility] Rad Your Inpatient Doctor: Mendel Luna MD Your Primary Care Provider: ELSIE Espinoza [phone] For questions regarding this document or issues relating to this hospitalization on the Medical Service, please contact your inpatient physician through the [facility] Guest Experience Manager . Issues afterhours and on weekends will be handled by the Hospitalist staff on-call. General Instructions None Future Appointments and Orders Future Appointments and Orders Future Appointments Provider Department Dept Phone 01/28/2023 1:00 PM [facility] US ROOM 4 Ultrasound at [facility] Arrive at: Stove Carriage Operator Area [phone] Please bring someone to drive you home. [...] Sanchez for admission to Home Health. [address] [address] Phone Number: [phone] (home) Date of : 1955 Inpatient DOCUMENTATION FOR VNA SERVICES (INCLUDING THOSE PATIENTS WITH MEDICARE COVERAGE REQUIRING HOME VNA SERVICES AND/OR HOSPICE SERVICES) PATIENT'S LOCATION: Miguel Sanchez [address] [address] [phone] (home) Cell: Telephone Information: Wax Pattern Repairer's Name: self In discussion with the attending physician, it is certified that this patient is under their care and that they, or a Nurse Practitioner, Clinical Nurse specialist or Physician Caseworker Protective Services who is working directly with them, had [...] manage benedict catheter HOME HEALTH CARE AGENCY: [facility] [address] [place] [address] Start of care: 24-48 hours after discharge [...] patient's PCP: ELSIE Espinoza DR [address] / [facility] [address] . All VNA agencies which cover the area of patient's residence have been reviewed, either verbally or in writing, and patient/family have chosen the home health care agency noted. Questions: Disciplines Requested: Nursing Referral to Urology [[id number] Custom] As directed Process Instructions: If no progress note charted, please enter Clinical details in comments. Scheduling Instructions: Questions: My question or request is: 67 yo M admitted 01/18-01/26 w/ renal failure due to obstruction, discharged w/ benedict. Provider Contact Information: ELSIE Espinoza [address] / [facility] [address] Discharge References/Attachments: Discharge References/Attachments None documented in [...] Time Provider Department Center 01/28/2023 1:00 PM [facility] Rad Your PCP office will contact you about scheduling follow up. Your Inpatient Doctor: Mendel Luna MD Your Primary Care Provider: ELSIE Espinoza [phone] For questions regarding this document or issues relating to this hospitalization on the Medical Service, please contact your inpatient physician through the [facility] Guest Experience Manager . Issues afterhours and on weekends will be handled by the Hospitalist staff on-call. * Attachments The following attachments cannot be sent through Care Everywhere. * Caregiver: Caring for an Indwelling Urinary Catheter: General Info (Jamaican) documented in this encounter Medications at Time [...] discharge to home with a ride from [facility]. * Tati Schultz - 01/27/2023 3:43 PM EDTSummary: Transportation Transportation for discharge was scheduled and confirmed through [facility]. [facility] will have a team otr truck driver at the Main Entrance at 4:15p today to provide patient with transportation home. * Camille Shelley RD - 01/27/2023 12:42 PM EDT Nutrition Progress Note Miguel Sanchez is a 67 y.o. male with PMH significant for HFrEF (last known EF 45% in 2020), diabetes, hypertension, and hyperlipidemia who presents from [facility] ED after being redirected from [facility] urgent clinic for one month of [...] Encounter Note Patient Name: Miguel Sanchez : [id number] MR#: [id number] Admit Date: 01/18/2023 5:25 PM Hospital Day [...] AM EDT Hypertension-Nephrology Inpatient Follow-up Miguel Sanchez [id number] 1955 ID: 67 y.o. old male seen [...] SPEP shows possible paraprotein however DOROTEO negative. Energy & Lambda light chains elevated however ratio [...] TID This case was discussed with staff floatlight loading supervisor Dr. Crawford and the primary team. Please contact me at phone: [phone] or pager: [phone] with any questions. Deonte Lugo MD Nephrology [...] Marii Serrano - 01/26/2023 3:59 PM EDT Scuba Dive Training Instructor Encounter Note Patient Name: Miguel Sanchez : [id number] MR#: [id number] Admit Date: 01/18/2023 5:25 PM Hospital Day [...] 1955 PCP: ELSIE Espinoza PCP phone number: [phone] Date of Admission: 01/18/2023 ( Hospital Day 8 days ) Attending:Mendel Luna MD ID: Miguel Sanchez is a 67 y.o. male with PMH significant for HFrEF (last known EF 45% in 2019), diabetes, hypertension, and hyperlipidemia who presents from [facility] ED after being redirected from [facility] urgent clinic for one month of [...] Gas) No results found for: PHART, PO2ART, [id number], [id number] Microbiology: Microbiology Results (Last 30 days) Procedure Component Value Units Date/Time Urine culture [[id number]] Collected: 01/18/232212 Lab Status: Final result Specimen: [...] who have questions, please contact the health patient care secretary that requested your imaging first. Jimmie العراقي, [...] who have questions, please contact the health patient care secretary that requested your imaging first. Elsie Garza, E Stapler Coil Unit Electronically Signed Final Report 01/25/2023 04:10 pm [...] diabetes, hypertension, and hyperlipidemia who presents from [facility] ED after being redirected from [facility] urgent clinic for one month of [...] PPx: Diet: Daily Healthy Menu Choices/Cardiac diet ([facility]-Diet) Lines: Peripheral IV Line - Single Lumen [...] Yousif MSW - 01/26/2023 2:43 PM EDT CONTINUOUS IMPROVEMENT COORDINATOR received a consult to support patient regarding concern of not getting his rent paid on time, which is typically due on the 1st of every month. CONTINUOUS IMPROVEMENT COORDINATOR called patient's property management company, [employer], and spoke to one of the progress clerk's, Meri, who stated they have a crow period forpaying rent late and are flexible with this kind of stuff. Meri also mentioned patient had spoken with one of her colleagues recently and asked if they could drive down to the hospital to grabthe check. CONTINUOUS IMPROVEMENT COORDINATOR checked with patient to see if he has the check, to which he responded no. Patient to be discharged tomorrow. * Deonte Lugo MD - 01/26/2023 7:51 AM EDT Hypertension-Nephrology Inpatient Follow-up Miguel Sanchez [id number] 1955 ID: 67 y.o. old male seen [...] SPEP shows possible paraprotein however DOROTEO negative. Energy & Lambda light chains elevated however ratio [...] daily This case was discussed with staff floatlight loading supervisor Dr. Crawford and the primary team. Please contact me at phone: [phone] or pager: [phone] with any questions. Deonte Lugo MD Nephrology [...] AM EDT Hypertension-Nephrology Inpatient Follow-up Miguel Sanchez [id number] 1955 ID: 67 y.o. old male seen [...] SPEP shows possible paraprotein however DOROTEO negative. Energy & Lambda light chains elevated however ratio [...] daily This case was discussed with staff floatlight loading supervisor Dr. Crawford. Please contact me at phone: [phone] or pager: [phone] with any questions. Deonte Lugo MD Nephrology [...] and volume overload resolving. David calhoun need buttermaker continuous churn diuretics to maintain fluid balance. Please obtain repeat renal US and schedule for renal clinic follow up with Dr Lugo in 2 weeks. * Kendy Montes MD - 01/25/2023 6:05 AM EDT Images from the original note were not included. Cardiology Progress Note Patient info: Name: Miguel Sanchez : 1955 PCP: ELSIE Espinoza PCP phone number: [phone] Date of Admission: 01/18/2023 ( Hospital Day 7 days ) Attending:Mendel Luna MD ID: Miguel Sanchez is a 67 y.o. male with PMH significant for HFrEF (last known EF 45% in 2020), diabetes, hypertension, and hyperlipidemia who presents from [facility] ED after being redirected from [facility] urgent clinic for one month of [...] Gas) No results found for: PHART, PO2ART, ITY3YMU, ERO1UMB Microbiology: Microbiology Results (Last 30 days) Procedure Component Value Units Date/Time Urine culture [[id number]] Collected: 01/18/232212 Lab Status: Final result Specimen: [...] who have questions, please contact the health patient care secretary that requested your imaging first. Jimmie العراقي, [...] diabetes, hypertension, and hyperlipidemia who presents from [facility] ED after being redirected from [facility] urgent clinic for one month of [...] AM EDT Hypertension-Nephrology Inpatient Follow-up Miguel Sanchez [id number] 1955 ID: 67 y.o. old male seen for CLEM. Interval History: Diuretics held again yesterday however continues to auto diurese. He clarified his living situationfor us and explains that he lives independently in low income housing and depends on rides to get to clinic appointments etc which is not always available. He follows very closely with a mental health clinic and has a neonatal social worker there who helps him. Physical [...] negative. SPEP shows possible paraprotein DOROTEO pending. Energy & Lambda light chains elevated however ratio [...] and from clinic visits and has a neonatal social worker whogenerally helps him with this. [...] deficiency. This case was discussed with staff floatlight loading supervisor Dr. Morrow. Please contact me at phone: [phone] or pager: [phone] with any questions. Deonte Lugo MD Nephrology [...] He does report having a mental health seed specialist who may be of some assistance when discharge planning comes to play. * Kendy Montes MD - 01/24/2023 6:39 AM EDT Images from the original note were not included. Cardiology Progress Note Patient info: Name: Miguel Sanchez : 1955 PCP: ELSIE Espinoza PCP phone number: [phone] Date of Admission: 01/18/2023 ( Hospital Day 6 days ) Attending:Mendel Luna MD ID: Miguel Sanchez is a 67 y.o. male with PMH significant for HFrEF (last known EF 45% in 2020), diabetes, hypertension, and hyperlipidemia who presents from [facility] ED after being redirected from [facility] urgent clinic for one month of [...] Gas) No results found for: PHART, PO2ART, [id number], [id number] Microbiology: Microbiology Results (Last 30 days) Procedure Component Value Units Date/Time Urine culture [[id number]] Collected: 01/18/232212 Lab Status: Final result Specimen: [...] who have questions, please contact the health patient care secretary that requested your imaging first. Jimmie العراقي, [...] diabetes, hypertension, and hyperlipidemia who presents from [facility] ED after being redirected from [facility] urgent clinic for one month of [...] AM EDT Hypertension-Nephrology Inpatient Follow-up Miguel Sanchez [id number] 1955 ID: 67 y.o. old male seen [...] negative. SPEP shows possible paraprotein DOROTEO pending. Energy & Lambda light chains elevated however ratio [...] and voiding trial - Please start ergocalciferol 85575 U weekly This case was discussed with staff floatlight loading supervisor Dr. Morrow. Please contact me at phone: [phone] or pager: [phone] with any questions. Deonte Lugo MD Nephrology [...] 1955 PCP: ELSIE Espinoza PCP phone number: [phone] Date of Admission: 01/18/2023 ( Hospital Day 5 days ) Attending:Mendel Luna MD ID: Miguel Sanchez is a 67 y.o. male with PMH significant for HFrEF (last known EF 45% in 2019), diabetes, hypertension, and hyperlipidemia who presents from [facility] ED after being redirected from [facility] urgent clinic for one month of [...] Gas) No results found for: PHART, PO2ART, [id number], ZCK0QAA Microbiology: Microbiology Results (Last 30 days) Procedure Component Value Units Date/Time Urine culture [[id number]] Collected: 01/18/232212 Lab Status: Final result Specimen: [...] who have questions, please contact the health patient care secretary that requested your imaging first. Jimmie العراقي, [...] diabetes, hypertension, and hyperlipidemia who presents from [facility] ED after being redirected from [facility] urgent clinic for one month of [...] diabetes, hypertension, and hyperlipidemia who presents from [facility] ED after being redirected from [facility] clinic for one month of [...] diabetes, hypertension, and hyperlipidemia who presents from [facility] ED after being redirected from [facility] clinic for one month of [...] transportation for shopping and errands and his heel caser visits once a week. Pt does not [...] Consistently following commands ADL: Assist needed to [facility] gown d/t lines Toileting: provided pt with [...] Therapy: 30 (SCHM x 2; 9:56-10:26) Pager: [phone] Sushma Hernandez OT Occupational Therapy Rehabilitation Department * Deonte Lugo MD - 01/22/2023 7:46 AM EDT Hypertension-Nephrology Inpatient Follow-up Miguel Sanchez [id number] 1955 ID: 67 y.o. old male seen [...] negative. SPEP shows possible paraprotein DOROTEO pending. Energy & Lambda light chains elevated however ratio [...] primaryteam. This case was discussed with staff floatlight loading supervisor Dr. Morrow. Please contact me at phone: [phone] or pager: [phone] with any questions. Deonte Lugo MD Nephrology [...] 1955 PCP: ELSIE Espinoza PCP phone number: [phone] Date of Admission: 01/18/2023 ( Hospital Day 4 days ) Attending:Mendel Luna MD ID: Miguel Sanchez is a 67 y.o. male with PMH significant for HFrEF (last known EF 45% in 2020), diabetes, hypertension, and hyperlipidemia who presents from [facility] ED after being redirected from [facility] urgent clinic for one month of progressively worsening shortness of breath and associated chest pain occurring both at rest and on exertion with concern for HFrEF exacerbation and CLEM. Active Problems: Active Hospital Problems Diagnosis Heart failure Resolved Hospital Problems No resolved problems to display. 24 Hour and Subjective: Yesterday: -Holding diuresis. Was going to [facility] but got bumped so plan for [...] Gas) No results found for: PHART, PO2ART, GJB6VSF, [id number] Microbiology: Microbiology Results (Last 30 days) Procedure Component Value Units Date/Time Urine culture [[id number]] Collected: 01/18/232212 Lab Status: Final result Specimen: [...] who have questions, please contact the health patient care secretary that requested your imaging first. Jimmie العراقي, [...] diabetes, hypertension, and hyperlipidemia who presents from [facility] ED after being redirected from [facility] urgent clinic for one month of [...] diabetes, hypertension, and hyperlipidemia who presents from [facility] ED after being redirected from [facility] clinic for one month of [...] alone in a single level apartment in [place], [place] Bathroom Set-up: Tub-shower with a shower [...] Code: Gait x1 Sera Mancera, PT Pager: [phone] Physical Therapy Inpatient Rehabilitation Department * Deonte Lugo MD - 01/21/2023 7:44 AM EDT Hypertension-Nephrology Inpatient Follow-up Miguel Sanchez [id number] 1955 ID: 67 y.o. old male seen [...] being This case was discussed with staff floatlight loading supervisor Dr. Morrow. Please contact me at phone: [phone] or pager: [phone] with any questions. Deonte Lugo MD Nephrology [...] 1955 PCP: ELSIE Espinoza PCP phone number: [phone] Date of Admission: 01/18/2023 ( Hospital Day 3 days ) Attending:Chris Lim MD ID: Miguel Sanchez is a 67 y.o. male with PMH significant for HFrEF (last known EF 45% in 2019), diabetes, hypertension, and hyperlipidemia who presents from [facility] ED after being redirected from [facility] urgent clinic for one month of [...] Gas) No results found for: PHART, PO2ART, CPY6XKP, [id number] Microbiology: Microbiology Results (Last 30 days) Procedure Component Value Units Date/Time Urine culture [[id number]] Collected: 01/18/232212 Lab Status: Final result Specimen: [...] who have questions, please contact the health patient care secretary that requested your imaging first. Jimmie العراقي, [...] diabetes, hypertension, and hyperlipidemia who presents from [facility] ED after being redirected from [facility] urgent clinic for one month of [...] Montes MD Internal Medicine, PGY-1 Cardiology M1-S1, #3048 Cardiology M1-S2, #4693 01/21/2023, 6:02 AM Cardiology Staff Addendum Miguel [...] AM EDT Hypertension-Nephrology Inpatient Follow-up Miguel Sanchez [id number] 1955 ID: 67 y.o. old male seen [...] serologies This case was discussed with staff floatlight loading supervisor Dr. Morrow and the patient's primary team. Please contact me at phone: [phone] or pager: [phone] with any questions. Deonte Lugo MD Nephrology [...] Reina Alcala APRN (Inactive) PCP phone number: [phone] Date of Admission: 01/18/2023 ( Hospital Day 2 days ) Attending:Chris Lim MD ID: Miguel Sanchez is a 67 y.o. male with PMH significant for HFrEF (last known EF 45% in 2020), diabetes, hypertension, and hyperlipidemia who presents from [facility] ED after being redirected from [facility] urgent clinic for one month of [...] Gas) No results found for: PHART, PO2ART, YMQ1LAK, YMN0JBR Microbiology: Microbiology Results (Last 30 days) Procedure Component Value Units Date/Time Urine culture [[id number]] Collected: 01/18/232212 Lab Status: Final result Specimen: [...] who have questions, please contact the health patient care secretary that requested your imaging first. Jimmie العراقي, [...] diabetes, hypertension, and hyperlipidemia who presents from [facility] ED after being redirected from [facility] urgent clinic for one month of [...] PM EDTSummary: Advance Directive Patient completed a [place] Advance Directive. Patient identified his sister Mony as his health care agent. * Sera Mancera, PT - 01/19/2023 11:00 AM EDT Physical Therapy evaluation Patient profile: Miguel Sanchez is a 67 y.o. male with PMH significant for HFrEF (last known EF 45% in 2019), diabetes, hypertension, and hyperlipidemia who presents from [facility] ED after being redirected from [facility] urgent clinic for one month of progressively worsening shortness of breath and associated chest pain occurring both at rest and on exertion. Social History: Home set-up: Lives alone in a single level apartment in [place], [place] Bathroom Set-up: Tub-shower with a shower [...] Moderate Complexity Evaluation Sera Mancera, PT Pager: [phone] Physical Therapy Inpatient Rehabilitation Department * Sushma Hernandez, OT - 01/19/2023 10:30 AM EDT Occupational Therapy Evaluation Patient profile: Miguel Sanchez is a 67 y.o. male with PMH significant for HFrEF (last known EF 45% in 2020), diabetes, hypertension, and hyperlipidemia who presents from [facility] ED after being redirected from [facility] for one month of [...] transportation for shopping and errands and his heel caser visits once a week. Pt does not [...] and measurable assessment of functional outcome. Pager: [phone] Sushma Hernandez OTR/L Occupational Therapy Rehabilitation Department * Marii Serrano - 01/19/2023 10:23 AM EDT Scuba Dive Training Instructor Encounter Note Patient Name: Miguel Sanchez : [id number] MR#: [id number] Admit Date: 01/18/2023 5:25 PM Hospital Day [...] Kevin Ashwin and doesn't believe in goingto Christianity because he can zoroastrian God in any place he is. Patient [...] sent to Office of Care Management ~ Green Chain Operator. * Chris Lim MD - 01/19/2023 6:11 AM EDT Images from the original note were not included. Cardiology Progress Note Patient info: Name: Miguel Sanchez : 1955 PCP: Reina Alcala APRN (Inactive) PCP phone number: [phone] Date of Admission: 01/18/2023 ( Hospital Day 1 day ) Attending:Chris Lim MD ID: Miguel Sanchez is a 67 y.o. male with PMH significant for HFrEF (last known EF 45% in 2019), diabetes, hypertension, and hyperlipidemia who presents from [facility] ED after being redirected from [facility] urgent clinic for one month of progressively worsening shortness of breath and associated chest pain occurring both at rest and on exertion. Active Problems: Active Hospital Problems Diagnosis Heart failure Resolved Hospital Problems No resolved problems to display. 24 Hour and Subjective: Yesterday: - The patient was reassuringly afebrile and hemodynamically stable upon transfer to [facility]. Interestingly, initial exam did not demonstrate marked [...] Gas) No results found for: PHART, PO2ART, VWX1KHD, CTS8NBD Microbiology: Microbiology Results (Last 30 days) No [...] who have questions, please contact the health patient care secretary that requested your imaging first. Jimmie العراقي, [...] diabetes, hypertension, and hyperlipidemia who presents from [facility] ED after being redirected from [facility] urgent clinic for one month of [...] Reina Alcala APRN (Inactive) PCP phone number: [phone] Date of Admission: 01/18/2023 ( Hospital Day 0 days ) Attending:Tanya Seaman MD ID: Miguel Sanchez is a 67 y.o. male with PMH significant for HFrEF (last known EF 45% in 2020), diabetes, hypertension, and hyperlipidemia who presents from [facility] ED after being redirected from [facility] urgent clinic for one month of [...] getting progressively worse he went to the [facility] urgent clinic in [place], [place] and was subsequently transferred to [facility] ED for further management. Upon initial presentation to [facility] ED: The patient was noted to [...] reportedly 40 mg PO) and transferred to [facility] for management of presumed acute on chronic HFrEF and CLEM. Upon direct admission to [facility]: The patient was noted to be afebrile [...] history: Reports living in an apartment in [place], [place] Reports his father as a result [...] diabetes, hypertension, and hyperlipidemia who presents from [facility] ED after being redirected from [facility] urgent clinic for one month of progressively worsening shortness of breath and associated chest painoccurring both at rest and on exertion. The patient was reassuringly afebrile and hemodynamically stable upon transfer to [facility]. Interestingly, initial exam did not demonstrate marked [...] More than 30 minutes were spent in bmid-vc-xysa contact with patient and with arranging discharge [...] have to pay my rent, get two travel registered nurse oncology's checks - one for rent and one [...] a catheter. Has daily auditory hallucinations of [employer] that he has lived with for decades. No SI/HI. Diagnoses: schizophrenia dx 1996 Current treatment: zyprexa 15mg QHS Past hospitalizations: never Suicide attempts: not really - years ago he came close, but doesn't elaborate Past psychiatric medications: did not assess Substance Use History/Treatment: no alcohol, cigarettes, marijuana, or other substances Social History: Lives in an apartment by himself in [place]. No family in the area. Only support is his mental health agency. [facility] - Randa Daniels (heel caser). Asa Deal is his provider. Problem List: [...] tablet 12.5 mg 12.5 mg Oral Daily eKndy Montes MD 12.5 mg at 01/27/23 0910 metoprolol succinate XL (Toprol-XL) tablet 25 mg 25 mg Oral Daily Austin Sosa MD 25 mg at 01/27/23 0910 hydrocortisone 1 % cream Topical (Top) BID Kyle cMkeon MD Given at 01/25/23 0836 finasteride (Proscar) [...] rate, and normal rhythm Language: fluent in khmer Mood: fine Affect: blunted and mood-congruent Thought [...] check on him, or see if his heel caser willcheck in on him tomorrow Please page psychiatry with additional questions Patient on IEA Status? IEA: NO, patient is not on IEA and does not have any psychiatric contraindication to discharge at the time of this assessment. Recommendations were communicated to primary team otr truck driver Kendy Montes MD. Maritza Awan MD Psychiatry, [...] [] Minimal - [] Minimal [] Straightforward [id number] [] Low [] Low [] Low [] Low 50929 [] Moderate [x] Moderate [] Moderate [] Moderate 18974 [x] High [] High [x] High [x] High 05797 Final Coding Determination: High Associated attestation - [...] CM). Keon Park MD Psychiatry Consultation Pager: [phone] * Plan of Care - Adrienne Calderon [...] Intervention: Promote Injury-Free Environment Flowsheets (Taken 01/25/2023 7164) Safety Promotion/Fall Prevention: safety round/check completed * [...] diabetes, hypertension, and hyperlipidemia who presents from [facility] ED after being redirected from [facility] urgent clinic for one month of [...] to: discuss discharge planning needs. provide the [facility], Office of Care Management letter from the Rug [employer] pertaining to rehab referrals. provide a letter describing our affiliations within the [facility] and educate about their right to choose where referrals are sent. provide a list of Home Health Agencies / Durable Medical Equipment vendors which serve their preferred geographic area. provided patient with [facility] Star Quality Rating handout. They have requested referrals to: [facility] [employer]. [address] [place] [id number] Note routed to a Green Chain Operator who will communicate referrals to facilities [...] from the original note were not included. [facility] [place] [address] [address] CORONARY ANGIOGRAM AND PERCUTANEOUS CORONARY INTERVENTION REPORT Patient: Miguel Sanchez : 1955 MR number: [id number] Date of Service: 01/22/2023 Hospitality Services Manager: Layton Morris MD Fellow: Mario Alberto Glasgow MD INDICATION: Miguel Sanchez is a 67 y.o. male with PMH significant for HFrEF (last known EF 45% in 2019), diabetes, hypertension, and hyperlipidemia who presents from [facility] ED after being redirected from [facility] urgent clinic for one month of [...] goes to the bank and gets a concrete block maker's check and pays it. CM tried to call the bank and the customer needs to be present for them to release any funds. I tried to call the [employer] [facility]- but they were closed. CM also tried to call his heel caser Randa to see if she could help. Left message for her to call back. Will put in CONTINUOUS IMPROVEMENT COORDINATOR consult to meet with him on Wednesday [...] PT/OT Recommendations Outpatient Agency/Support Group Needs: Other [facility]: Randa Gonzalez at [phone] (heel caser) Transportation: Medicaid transport- will need 24 hours [...] Coon MD Urology PGY-2 Daytime Consult Pager #[phone] * Initial Assessments - Darryl Rodriguez RN - 01/19/2023 4:57 PM EDT Office of Care Management Initial Assessment Darryl Rodriguez RN reviewed record and discussed patient with Care Team. Source of Information: Team, bedside nurse, medical record, and Patient, Chart Review. Introduced self/reviewed role; services accepted. Admitted From: Transfer from another hospital Location: [facility] Reason for Hospitalization: Heart problems and kidney problems Covid Vaccination Status: 1st, 2nd & booster Last COVID test: na Past medical History: No past medical history on file. Hospitalizations Within the Past 30 Days: no previous admission in last 30 days Current Decision-Making Capacity: Self If AD's have not been completed the following surrogate would be surrogate decision maker per [place] decision making law. (Only good for 180 days) Any patient receiving care in [place] must abide by [place] law. The hierarchy for surrogate decision making [...] (i) The agent with financial power of automotive detailer or a conservator appointed in accordance with [...] DME: none Home Address confirmed as: [address] [facility] [address] Social & Family Supports: All names listed below confirmed with patient as current and correct Extended Emergency Contact Information Primary Emergency Contact: Mony Abraham Mobile Relation: Sibling Current Care Provided by: self Provides Primary Care For: no one, unable/limited ability to care for self Caregiver if needed: none Quality of Family relationships: non-existent Community Resources being provided currently: outpatient psychiatric care ([facility]) Behavioral Health History: Schizophrenia unspecified; MMD recurrent unspecified; on Olanzapine 15mgQD per Miroslava Anguiano CM at [facility] Substance Use/Abuse confirmed: denies all Social History [...] Yes ; Prescription Coverage: Yes Preferred Pharmacy: [id number] AT [facility] & [address] [address] [place] Status: Patient is a : No Primary [...] 7:38 AM EDT Hypertension-Nephrology Consultation Miguel Sanchez [id number] 1955 ID: Miguel Sanchez is 67 y.o. [...] labs. This case was discussed with staff floatlight loading supervisor Dr. Morrow and the patient's primary team. Please contact me at phone: [phone] or pager: [phone] with any questions. Deonte Lugo MD Nephrology [...] 10:00 AM EDT [place] [address] Austin Simon MD [facility] [place] [address] [place] [address] Lindy Box APRN [facility] [place] [address] [place] [address] Scheduled Referrals Name Type Priority Associated Diagnoses [...] POC Glucose 159 65 - 199 mg/dL [facility] Comment: Supplemental ranges: <140 mg/dL before meals <180 mg/dL all other times of the day Blood 01/27/2023 12:1 8 PM EDT 01/27/2023 12:18 PM EDT Mendel Luna MD POINT OF CARE TEST O RDERABLES Performing Organization Address City/[facility]/ZIP Co de Phone Number [facility] [place] [address] * POCT Glucose (01/27/2023 7:58 AM EDT) POC Glucose 173 65 - 199 mg/dL [facility] Comment: Supplemental ranges: <140 mg/dL before meals <180 mg/dL all other times of the day Blood 01/27/2023 7:58 AM EDT 01/27/2023 7:58 AM EDT Mendel Luna MD POINT OF CARE TEST O RDERABLES Performing Organization Address City/[facility]/ZIP Co de Phone Number [facility] [place] [address] * (ABNORMAL) Differential, Automated (01/27/2023 3:49 AM EDT) Neutrophils % 75.3 % [facility] Neutr Abs (ANC) 6.21(H) 1.70 - 6.10 x10(3)/[facility] Lymphocytes % 12.1 % [facility] Lymphocytes Abs 1.0 0.9 - 3.2 x10(3)/[facility] Monocytes % 8.6 % [facility] Monocyte Abs 0.7 0.3 - 0.9 x10(3)/[facility] Eosinophils % 2.9 % [facility] Eosinophils Abs 0.2 0.0 - 0.4 x10(3)/[facility] Basophils % 0.7 % [facility] Basophils Abs 0.1 0.0 - 0.1 x10(3)/[facility] Immature Gran % 0.40 % [facility] Comment: Immature granulocytes(IG's)percentage and absolute count will include metamyelocytes, myelocytes, and promyelocytes. Blood smears from CBCs yielding IG's will be scanned manually for concordance. If this scan disagrees with the automated IG or if promyelocytes are noted, a manual differential will be performed. Angelica Gran Abs 0.03 0.00 - 0.04 x10(3)/[facility] Blood 01/27/2023 3:49 AM EDT 01/27/2023 4:08 AM EDT Narrative Resulting Agency Comment Spec In Lab Kyle Mckeon MD HEMATOLOGY ORDERABLE S [facility] [place] [address] * (ABNORMAL) Hemogram (01/27/2023 3:49 AM EDT) WBC 8.2 4.0 - 9.5 x10(3)/[facility] RBC 3.45(L) 4.58 - 5.54 x10(6)/[facility] Hemoglobin 10.6(L) 13.7 - 16.5 g/dL [facility] Hematocrit 31.5(L) 40.5 - 48.5 % [facility] MCV 91.3 82.9 - 93.1 [facility] MCH 30.7 27.5 - 32.[address] [facility] MCHC 33.7 32.0 - 35.7 g/dL [facility] Platelets 163 145 - 357 x10(3)/[facility] RDWSD 42.7 36.0 - 45.0 [facility] RDWCV 13.0 11.4 - 13.8 % [facility] MPV 12.8 7.6 - 12.9 [facility] nRBC % Auto 0.0 % [facility] nRBC Abs Auto 0.000 0.000 - 0.000 x10(3)/[facility] Blood 01/27/2023 3:49 AM EDT 01/27/2023 4:08 AM EDT Narrative Resulting Agency Comment Spec In Lab Kyle Mckeon MD HEMATOLOGY ORDERABLE S [facility] [place] [address] * (ABNORMAL) Phosphorus (01/27/2023 3:49 AM EDT) Phosphorus 5.0(H) 2.5 - 4.5 mg/dL [facility] Blood 01/27/2023 3:49 AM EDT 01/27/2023 4:08 AM EDT Narrative Resulting Agency Comment Spec In Lab Tanya Seaman MD CHEMISTRY ORDERABL ES Performing Organization Address City/[facility]/ZIP Co de Phone Number [facility] [place] [address] * Magnesium (01/27/2023 3:49 AM EDT) Magnesium 0.97 0.69 - 1.07 mmol/L [facility] Blood 01/27/2023 3:49 AM EDT 01/27/2023 4:08 AM EDT Narrative Resulting Agency Comment Spec In Lab Tanya Seaman MD CHEMISTRY ORDERABL ES [facility] [place] [address] * (ABNORMAL) Basic Metabolic Panel (non-fasting) (01/27/2023 3:49 AM EDT) Glucose Lvl 142 65 - 199 mg/dL [facility] Comment:Diabetes: >=200 mg/d L plus symptoms BUN 78(H) 10 - 20 mg/dL [facility] Creatinine 4.74(H) 0.80 - 1.50 mg/dL [facility] Sodium 137 135 - 145 mmol/L [facility] Potassium 4.8 3.5 - 5.0 mmol/L [facility] Comment: Please note: ??Patients with WBC >100,000 may have falsely elevated Potassium levels. ??For accurate Potassium quantification in these patients send serum separator tube (gold top) for subsequent determinations. ??Contact the Clinical Chemistry Laboratory if there are any questions. Chloride 107 98 - 107 mmol/L [facility] CO2 15(L) 22 - 31 mmol/L [facility] Anion Gap 15 5 - 15 mmol/L [facility] Calcium 9.4 8.5 - 10.5 mg/dL [facility] Estimated GFR 13(L) >=60 mL/min/1. 73 m?? [facility] Comment: This patient's estimated GFR [...] MD CHEMISTRY ORDERABL ES Performing Organization Address City/[facility]/ZIP Co de Phone Number [facility] [place] [address] * (ABNORMAL) POCT Glucose (01/26/2023 8:20 PM EDT) POC Glucose 202(H) 65 - 199 mg/dL [facility] Comment: Supplemental ranges: <140 mg/dL before meals <180 mg/dL all other times of the day Blood 01/26/2023 8:20 PM EDT 01/26/2023 8:20 PM EDT Mendel Luna MD POINT OF CARE TEST O RDERABLES Performing Organization Address [facility] Co de Phone Number [facility] [place] [address] * POCT Glucose (01/26/2023 4:04 PM EDT) POC Glucose 152 65 - 199 mg/dL [facility] Comment: Supplemental ranges: <140 mg/dL before meals <180 mg/dL all other times of the day Blood 01/26/2023 4:04 PM EDT 01/26/2023 4:04 PM EDT Mendel Luna MD POINT OF CARE TEST O RDERABLES Performing Organization Address City/[facility]/ZIP Co de Phone Number [facility] [place] [address] * POCT Glucose (01/26/2023 11:42 AM EDT) POC Glucose 175 65 - 199 mg/dL [facility] Comment: Supplemental ranges: <140 mg/dL before meals <180 mg/dL all other times of the day Blood 01/26/2023 11:4 2 AM EDT 01/26/2023 11:42 AM EDT Mendel Luna MD POINT OF CARE TEST O RDERABLES Performing Organization Address City/[facility]/ZIP Co de Phone Number [facility] [place] [address] * POCT Glucose (01/26/2023 7:51 AM EDT) [facility] POC Glucose 137 65 - 199 mg/dL [facility] Comment: Supplemental ranges: <140 mg/dL before meals <180 mg/dL all other times of the day Blood 01/26/2023 7:51 AM EDT 01/26/2023 7:51 AM EDT Mendel Luna MD POINT OF CARE TEST O RDERABLES Performing Organization Address City/[facility]/ZIP Co de Phone Number [facility] [place] [address] * Differential, Automated (01/26/2023 3:11 AM EDT) [facility] Neutrophils % 71.1 % [facility] Neutr Abs (ANC) 5.94 1.70 - 6.10 x10(3)/[facility] Lymphocytes % 15.3 % [facility] Lymphocytes Abs 1.3 0.9 - 3.2 x10(3)/[facility] Monocytes % 8.9 % [facility] Monocyte Abs 0.7 0.3 - 0.9 x10(3)/[facility] Eosinophils % 3.6 % [facility] Eosinophils Abs 0.3 0.0 - 0.4 x10(3)/[facility] Basophils % 0.7 % [facility] Basophils Abs 0.1 0.0 - 0.1 x10(3)/[facility] Immature Gran % 0.40 % [facility] Comment: Immature granulocytes(IG's)percentage and absolute count will include metamyelocytes, myelocytes, and promyelocytes. Blood smears from CBCs yielding IG's will be scanned manually for concordance. If this scan disagrees with the automated IG or if promyelocytes are noted, a manual differential will be performed. Angelica Gran Abs 0.03 0.00 - 0.04 x10(3)/[facility] Blood 01/26/2023 3:11 AM EDT 01/26/2023 3:40 AM EDT Narrative Resulting Agency Comment Spec In Lab Kyle Mckeon MD HEMATOLOGY ORDERABLE S [facility] [place] [address] * (ABNORMAL) Hemogram (01/26/2023 3:11 AM EDT) WBC 8.4 4.0 - 9.5 x10(3)/[facility] RBC 3.25(L) 4.58 - 5.54 x10(6)/[facility] Hemoglobin 10.2(L) 13.7 - 16.5 g/dL [facility] Hematocrit 29.8(L) 40.5 - 48.5 % [facility] MCV 91.7 82.9 - 93.[address] [facility] MCH 31.4 27.5 - 32.[address] [facility] MCHC 34.2 32.0 - 35.7 g/dL [facility] Platelets 161 145 - 357 x10(3)/[facility] RDWSD 43.0 36.0 - 45.[address] [facility] RDWCV 13.0 11.4 - 13.8 % [facility] MPV 13.0(H) 7.6 - 12.[address] [facility] nRBC % Auto 0.0 % [facility] nRBC Abs Auto 0.000 0.000 - 0.000 x10(3)/mcL [facility] Blood 01/26/2023 3:11 AM EDT 01/26/2023 3:40 AM EDT Narrative Resulting Agency Comment Spec In Lab Kyle Mckeon MD HEMATOLOGY ORDERABLE S Performing Organization Address City/[facility]/ZIP Co de Phone Number [facility] [place] [address] * (ABNORMAL) Phosphorus (01/26/2023 3:11 AM EDT) Phosphorus 4.6(H) 2.5 - 4.5 mg/dL [facility] Blood 01/26/2023 3:11 AM EDT 01/26/2023 3:39 AM EDT Narrative Resulting Agency Comment Spec In Lab Tanya Seaman MD CHEMISTRY ORDERABL ES Performing Organization Address [facility] Co de Phone Number [facility] [place] [address] * Magnesium (01/26/2023 3:11 AM EDT) Magnesium 0.97 0.69 - 1.07 mmol/L [facility] Blood 01/26/2023 3:11 AM EDT 01/26/2023 3:39 AM EDT Narrative Resulting Agency Comment Spec In Lab Tanya Seaman MD CHEMISTRY ORDERABL ES Performing Organization Address [facility] Co de Phone Number [facility] [place] [address] * (ABNORMAL) Basic Metabolic Panel (non-fasting) (01/26/2023 3:11 AM EDT) Glucose Lvl 127 65 - 199 mg/dL [facility] Comment:Diabetes: >=200 mg/d L plus symptoms BUN 77(H) 10 - 20 mg/dL [facility] Creatinine 4.91(H) 0.80 - 1.50 mg/dL [facility] Sodium 139 135 - 145 mmol/L [facility] Potassium 4.8 3.5 - 5.0 mmol/L [facility] Comment: Please note: ??Patients with WBC >100,000 may have falsely elevated Potassium levels. ??For accurate Potassium quantification in these patients send serum separator tube (gold top) for subsequent determinations. ??Contact the Clinical Chemistry Laboratory if there are any questions. Chloride 105 98 - 107 mmol/L [facility] CO2 18(L) 22 - 31 mmol/L [facility] Anion Gap 16(H) 5 - 15 mmol/L [facility] Calcium 9.3 8.5 - 10.5 mg/dL [facility] Estimated GFR 12(L) >=60 mL/min/1. 73 m?? [facility] Comment: This patient's estimated GFR [...] Lab Tanya Seaman MD CHEMISTRY ORDERABL ES [facility] [place] [address] * POCT Glucose (01/25/2023 9:24 PM EDT) POC Glucose 181 65 - 199 mg/dL [facility] Comment: Supplemental ranges: <140 mg/dL before meals <180 mg/dL all other times of the day Blood 01/25/2023 9:24 PM EDT 01/25/2023 9:24 PM EDT Mendel Luna MD POINT OF CARE TEST O TESSA Performing Organization Address City/[facility] Co de Phone Number [facility] [place] [address] * POCT Glucose (01/25/2023 4:46 PM EDT) POC Glucose 153 65 - 199 mg/dL [facility] Comment: Supplemental ranges: <140 mg/dL before meals <180 mg/dL all other times of the day Blood 01/25/2023 4:46 PM EDT 01/25/2023 4:46 PM EDT Mendel Luna MD POINT OF CARE TEST O TESSA Performing Organization Address [facility] Co de Phone Number [facility] [place] [address] * US Retroperitoneal Complete (01/25/2023 3:50 PM [...] who have questions, please contact the health patient care secretary that requested your imaging first. ?Elsie Garza, [facility] [employer] Unit Electronically Signed Final Report ?? 01/25/2023 04:10 pm Narrative 01/25/2023 4:11 PM EDT Renal ? (Signed Final 01/25/2023 04:10 pm) PATIENT INFO: ID #: ? [id number] ?: ??[birth year] (67 yrs)(M) Name: ? MIGUEL SANCHEZ ? Visit Date: 01/25/2023 03:47 pm PERFORMED BY: Attending: ?Kayla OTT, Elsie Conley Performed By: ? Paola Pritchard RDMS Referred By: ?MENDEL LUNA Location: ? [place] SERVICE(S) PROVIDED: URETRO - Retroperitoneal Complete - [id number] ? [id number] INDICATIONS: 67yo male with CLEM, repeat U/S [...] 01/25/2023 04:10 pm) PATIENT INFO: ID #: [id number] : [birth year] (67 yrs)(M) Name: MIGUEL SANCHEZ Visit Date: 01/25/2023 03:47 pm PERFORMED BY: Attending: Elsie Garza MD Performed By: Paola Pritchard RDMS Referred By: MENDEL LUNA Location: [place] SERVICE(S) PROVIDED: URETRO - Retroperitoneal Complete - [id number] INDICATIONS: 67yo male with CLEM, repeat U/S [...] who have questions, please contact the health patient care secretary that requested your imaging first. Elsie Garza, [facility] [employer] Electronically Signed Final Report 01/25/2023 04:10 pm Mendel Luna MD IMG US GEN ORDERABLE S * POCT Glucose (01/25/2023 11:20 AM EDT) POC Glucose 182 65 - 199 mg/dL [facility] Comment: Supplemental ranges: <140 mg/dL before meals <180 mg/dL all other times of the day Blood 01/25/2023 11:2 0 AM EDT 01/25/2023 11:20 AM EDT Mendel Luna MD POINT OF CARE TEST O RDERABLES Performing Organization Address City/[facility]/ZIP Co de Phone Number [facility] [place] [address] * POCT Glucose (01/25/2023 7:44 AM EDT) Pathologist [facility] POC Glucose 155 65 - 199 mg/dL [facility] Comment: Supplemental ranges: <140 mg/dL before meals <180 mg/dL all other times of the day Blood 01/25/2023 7:44 AM EDT 01/25/2023 7:44 AM EDT Mendel Luna MD POINT OF CARE TEST O RDSHANELLE [facility] [place] [address] * Differential, Automated (01/25/2023 4:06 AM EDT) Pathologist [facility] Neutrophils % 72.7 % [facility] Neutr Abs (ANC) 5.96 1.70 - 6.10 x10(3)/[facility] Lymphocytes % 14.7 % [facility] Lymphocytes Abs 1.2 0.9 - 3.2 x10(3)/[facility]ORATORY Monocytes % 8.2 % [facility] Monocyte Abs 0.7 0.3 - 0.9 x10(3)/[facility] Eosinophils % 3.5 % [facility] Eosinophils Abs 0.3 0.0 - 0.4 x10(3)/[facility] Basophils % 0.7 % [facility] Basophils Abs 0.1 0.0 - 0.1 x10(3)/[facility] Immature Gran % 0.20 % [facility] Comment: Immature granulocytes(IG's)percentage and absolute count will include metamyelocytes, myelocytes, and promyelocytes. Blood smears from CBCs yielding IG's will be scanned manually for concordance. If this scan disagrees with the automated IG or if promyelocytes are noted, a manual differential will be performed. Angelica Gran Abs 0.02 0.00 - 0.04 x10(3)/[facility] Blood 01/25/2023 4:06 AM EDT 01/25/2023 4:17 AM EDT Narrative Resulting Agency Comment Spec In Lab Kyle Mckeon MD HEMATOLOGY ORDERABLE S [facility] [place] [address] * (ABNORMAL) Hemogram (01/25/2023 4:06 AM EDT) WBC 8.2 4.0 - 9.5 x10(3)/[facility] RBC 3.38(L) 4.58 - 5.54 x10(6)/[facility] Hemoglobin 10.6(L) 13.7 - 16.5 g/dL [facility] Hematocrit 30.7(L) 40.5 - 48.5 % [facility] MCV 90.8 82.9 - 93.[address] [facility] MCH 31.4 27.5 - 32.[address] [facility] MCHC 34.5 32.0 - 35.7 g/dL [facility] Platelets 170 145 - 357 x10(3)/[facility] RDWSD 42.1 36.0 - 45.0 [facility] RDWCV 12.8 11.4 - 13.8 % [facility] MPV 12.6 7.6 - 12.9 [facility] LABORATORY nRBC % Auto 0.0 % [facility] nRBC Abs Auto 0.000 0.000 - 0.000 x10(3)/mcL [facility] Blood 01/25/2023 4:06 AM EDT 01/25/2023 4:17 AM EDT Narrative Resulting Agency Comment Spec In Lab Kyle Mckeon MD HEMATOLOGY ORDERABLE S Performing Organization Address City/[facility]/ZIP Co de Phone Number [facility] [place] [address] * (ABNORMAL) Phosphorus (01/25/2023 4:06 AM EDT) Phosphorus 4.9(H) 2.5 - 4.5 mg/dL [facility] Blood 01/25/2023 4:06 AM EDT 01/25/2023 4:17 AM EDT Narrative Resulting Agency Comment Spec In Lab Tanya Seaman MD CHEMISTRY ORDERABL ES Performing Organization Address [facility] Co de Phone Number [facility] [place] [address] * Magnesium (01/25/2023 4:06 AM EDT) Magnesium 1.00 0.69 - 1.07 mmol/L [facility] Blood 01/25/2023 4:06 AM EDT 01/25/2023 4:17 AM EDT Narrative Resulting Agency Comment Spec In Lab Tanya Seaman MD CHEMISTRY ORDERABL ES Performing Organization Address [facility] Co de Phone Number [facility] [place] [address] * (ABNORMAL) Basic Metabolic Panel (non-fasting) (01/25/2023 4:06 AM EDT) Glucose Lvl 148 65 - 199 mg/dL [facility] Comment:Diabetes: >=200 mg/d L plus symptoms BUN 78(H) 10 - 20 mg/dL [facility] Creatinine 5.06(H) 0.80 - 1.50 mg/dL [facility] Sodium 139 135 - 145 mmol/L [facility] Potassium 4.5 3.5 - 5.0 mmol/L [facility] Comment: Please note: ??Patients with WBC >100,000 may have falsely elevated Potassium levels. ??For accurate Potassium quantification in these patients send serum separator tube (gold top) for subsequent determinations. ??Contact the Clinical Chemistry Laboratory if there are any questions. Chloride 103 98 - 107 mmol/L [facility] CO2 19(L) 22 - 31 mmol/L [facility] Anion Gap 17(H) 5 - 15 mmol/L [facility] Calcium 9.5 8.5 - 10.5 mg/dL [facility] Estimated GFR 12(L) >=60 mL/min/1. 73 m?? [facility] Comment: This patient's estimated GFR [...] Lab Tanya Seaman MD CHEMISTRY ORDERABL ES [facility] [place] [address] * POCT Glucose (01/24/2023 10:12 PM EDT) POC Glucose 175 65 - 199 mg/dL [facility] Comment: Supplemental ranges: <140 mg/dL before meals <180 mg/dL all other times of the day Blood 01/24/2023 10:1 2 PM EDT 01/24/2023 10:12 PM EDT Mendel Luna MD POINT OF CARE TEST O RDERABLES Performing Organization Address City/[facility]/ZIP Co de Phone Number [facility] [place] [address] * POCT Glucose (01/24/2023 4:41 PM EDT) POC Glucose 157 65 - 199 mg/dL [facility] Comment: Supplemental ranges: <140 mg/dL before meals <180 mg/dL all other times of the day Blood 01/24/2023 4:41 PM EDT 01/24/2023 4:41 PM EDT Mendel Luna MD POINT OF CARE TEST O RDERABLES Performing Organization Address [facility]/ZIP Co de Phone Number [facility] [place] [address] * POCT Glucose (01/24/2023 12:10 PM EDT) POC Glucose 177 65 - 199 mg/dL [facility] Comment: Supplemental ranges: <140 mg/dL before meals <180 mg/dL all other times of the day Blood 01/24/2023 12:1 0 PM EDT 01/24/2023 12:10 PM EDT Mendel Luna MD POINT OF CARE TEST O RDERABLES [facility] [place] [address] * POCT Glucose (01/24/2023 7:51 AM EDT) POC Glucose 175 65 - 199 mg/dL [facility] Comment: Supplemental ranges: <140 mg/dL before meals <180 mg/dL all other times of the day Blood 01/24/2023 7:51 AM EDT 01/24/2023 7:51 AM EDT Mendel Luna MD POINT OF CARE TEST O RDERABLES Performing Organization Address [facility] de Phone Number [facility] [place] [place] [address] * (ABNORMAL) Phosphorus (01/24/2023 2:56 AM EDT) Phosphorus 5.0(H) 2.5 - 4.5 mg/dL [facility] Blood 01/24/2023 2:56 AM EDT 01/24/2023 3:06 AM EDT Narrative Resulting Agency Comment Spec In Lab Tanya Seaman MD CHEMISTRY ORDERABL ES Performing Organization Address [facility] de Phone Number [facility] [place] [address] * Magnesium (01/24/2023 2:56 AM EDT) Magnesium 0.94 0.69 - 1.07 mmol/L [facility] Blood 01/24/2023 2:56 AM EDT 01/24/2023 3:06 AM EDT Narrative Resulting Agency Comment Spec In Lab Tanya Seaman MD CHEMISTRY ORDERABL ES Performing Organization Address [facility] de Phone Number [facility] [place] [address] * (ABNORMAL) Basic Metabolic Panel (non-fasting) (01/24/2023 2:56 AM EDT) Glucose Lvl 131 65 - 199 mg/dL [facility] Comment:Diabetes: >=200 mg/d L plus symptoms BUN 80(H) 10 - 20 mg/dL [facility] Creatinine 5.46(H) 0.80 - 1.50 mg/dL [facility] Sodium 139 135 - 145 mmol/L [facility] Potassium 4.5 3.5 - 5.0 mmol/L [facility] Comment: Please note: ??Patients with WBC >100,000 may have falsely elevated Potassium levels. ??For accurate Potassium quantification in these patients send serum separator tube (gold top) for subsequent determinations. ??Contact the Clinical Chemistry Laboratory if there are any questions. Chloride 104 98 - 107 mmol/L [facility] CO2 21(L) 22 - 31 mmol/L [facility] Anion Gap 14 5 - 15 mmol/L [facility] Calcium 9.3 8.5 - 10.5 mg/dL [facility] Estimated GFR 11(L) >=60 mL/min/1. 73 m?? [facility] Comment: This patient's estimated GFR [...] Lab Tanya Seaman MD CHEMISTRY ORDERABL ES [facility] [place] [address] * POCT Glucose (01/23/2023 9:16 PM EDT) POC Glucose 150 65 - 199 mg/dL [facility] Comment: Supplemental ranges: <140 mg/dL before meals <180 mg/dL all other times of the day Blood 01/23/2023 9:16 PM EDT 01/23/2023 9:16 PM EDT Mendel Luna MD POINT OF CARE TEST O TESSA Performing Organization Address [facility] Co de Phone Number [facility] [place] [address] * (ABNORMAL) POCT Glucose (01/23/2023 3:13 PM EDT) POC Glucose 246(H) 65 - 199 mg/dL [facility] Comment: Supplemental ranges: <140 mg/dL before meals <180 mg/dL all other times of the day Blood 01/23/2023 3:13 PM EDT 01/23/2023 3:13 PM EDT Mendel Luna MD POINT OF CARE TEST O BERNARDINOERAMARCY Performing Organization Address [facility] Co de Phone Number [facility] [place] [address] * POCT Glucose (01/23/2023 11:06 AM EDT) POC Glucose 163 65 - 199 mg/dL [facility] Comment: Supplemental ranges: <140 mg/dL before meals <180 mg/dL all other times of the day Blood 01/23/2023 11:0 6 AM EDT 01/23/2023 11:06 AM EDT Mendel Luna MD POINT OF CARE TEST O RDERAMARCY Performing Organization Address [facility] Co de Phone Number [facility] [place] [address] * POCT Glucose (01/23/2023 7:46 AM EDT) POC Glucose 165 65 - 199 mg/dL [facility] Comment: Supplemental ranges: <140 mg/dL before meals <180 mg/dL all other times of the day Blood 01/23/2023 7:46 AM EDT 01/23/2023 7:46 AM EDT Mendel Luna MD POINT OF CARE TEST O RDERABLES [facility] [place] [address] * Differential, Automated (01/23/2023 2:53 AM EDT) Neutrophils % 72.0 % [facility] Neutr Abs (ANC) 5.86 1.70 - 6.10 x10(3)/[facility] Lymphocytes % 13.8 % [facility] Lymphocytes Abs 1.1 0.9 - 3.2 x10(3)/[facility] Monocytes % 9.2 % [facility] Monocyte Abs 0.8 0.3 - 0.9 x10(3)/[facility] Eosinophils % 4.1 % [facility] Eosinophils Abs 0.3 0.0 - 0.4 x10(3)/[facility] Basophils % 0.7 % [facility] Basophils Abs 0.1 0.0 - 0.1 x10(3)/[facility] Immature Gran % 0.20 % [facility] Comment: Immature granulocytes(IG's)percentage and absolute count will include metamyelocytes, myelocytes, and promyelocytes. Blood smears from CBCs yielding IG's will be scanned manually for concordance. If this scan disagrees with the automated IG or if promyelocytes are noted, a manual differential will be performed. Angelica Gran Abs 0.02 0.00 - 0.04 x10(3)/[facility] Blood 01/23/2023 2:53 AM EDT 01/23/2023 3:05 AM EDT Narrative Resulting Agency Comment Spec In Lab Kyle Mckeon MD HEMATOLOGY ORDERABLE S [facility] [place] [address] * (ABNORMAL) Hemogram (01/23/2023 2:53 AM EDT) WBC 8.1 4.0 - 9.5 x10(3)/[facility] RBC 3.41(L) 4.58 - 5.54 x10(6)/[facility] Hemoglobin 10.4(L) 13.7 - 16.5 g/dL [facility] Hematocrit 30.7(L) 40.5 - 48.5 % [facility] MCV 90.0 82.9 - 93.1 [facility] MCH 30.5 27.5 - 32.[address] [facility] MCHC 33.9 32.0 - 35.7 g/dL [facility] Platelets 182 145 - 357 x10(3)/[facility] RDWSD 42.3 36.0 - 45.0 [facility] RDWCV 13.0 11.4 - 13.8 % [facility] MPV 12.1 7.6 - 12.9 [facility] nRBC % Auto 0.0 % [facility] nRBC Abs Auto 0.000 0.000 - 0.000 x10(3)/[facility] Blood 01/23/2023 2:53 AM EDT 01/23/2023 3:05 AM EDT Narrative Resulting Agency Comment Spec In Lab Kyle Mkceon MD HEMATOLOGY ORDERABLE S [facility] [place] [address] * (ABNORMAL) Phosphorus (01/23/2023 2:53 AM EDT) Phosphorus 5.8(H) 2.5 - 4.5 mg/dL [facility] Blood 01/23/2023 2:53 AM EDT 01/23/2023 3:05 AM EDT Narrative Resulting Agency Comment Spec In Lab Tanya Seaman MD CHEMISTRY ORDERABL ES Performing Organization Address [facility] Co de Phone Number [facility] [place] [address] * Magnesium (01/23/2023 2:53 AM EDT) Magnesium 0.96 0.69 - 1.07 mmol/L [facility] Blood 01/23/2023 2:53 AM EDT 01/23/2023 3:05 AM EDT Narrative Resulting Agency Comment Spec In Lab Tanya Seaman MD CHEMISTRY ORDERABL ES Performing Organization Address [facility] Co de Phone Number [facility] [place] [address] * (ABNORMAL) Basic Metabolic Panel (non-fasting) (01/23/2023 2:53 AM EDT) Glucose Lvl 131 65 - 199 mg/dL [facility] Comment:Diabetes: >=200 mg/d L plus symptoms BUN 81(H) 10 - 20 mg/dL [facility] Creatinine 5.47(H) 0.80 - 1.50 mg/dL [facility] Sodium 139 135 - 145 mmol/L [facility] Potassium 4.4 3.5 - 5.0 mmol/L [facility] Comment: Please note: ??Patients with WBC >100,000 may have falsely elevated Potassium levels. ??For accurate Potassium quantification in these patients send serum separator tube (gold top) for subsequent determinations. ??Contact the Clinical Chemistry Laboratory if there are any questions. Chloride 105 98 - 107 mmol/L [facility] CO2 20(L) 22 - 31 mmol/L [facility] Anion Gap 14 5 - 15 mmol/L [facility] Calcium 9.2 8.5 - 10.5 mg/dL [facility] Estimated GFR 11(L) >=60 mL/min/1. 73 m?? [facility] Comment: This patient's estimated GFR [...] Narrative Resulting Agency Comment Spec In Lab Tayna Seaman MD CHEMISTRY ORDERABL ES Performing Organization Address [facility]/ZIP Co de Phone Number [facility] [place] [address] * (ABNORMAL) POCT Glucose (01/22/2023 7:28 PM EDT) POC Glucose 237(H) 65 - 199 mg/dL [facility] Comment: Supplemental ranges: <140 mg/dL before meals <180 mg/dL all other times of the day Blood 01/22/2023 7:28 PM EDT 01/22/2023 7:28 PM EDT Mendel Luna MD POINT OF CARE TEST O RDERABLES Performing Organization Address City/[facility]/ZIP Co de Phone Number [facility] [place] [address] * POCT Glucose (01/22/2023 5:30 PM EDT) POC Glucose 130 65 - 199 mg/dL [facility] Comment: Supplemental ranges: <140 mg/dL before meals <180 mg/dL all other times of the day Blood 01/22/2023 5:30 PM EDT 01/22/2023 5:30 PM EDT Mendel Luna MD POINT OF CARE TEST O RDERABLES Performing Organization Address [facility]/State/ZIP Co de Phone Number [facility] [place] [address] * CARDIAC CATHETERIZATION (01/22/2023 5:10 PM EDT) Anatomical Region Laterality Modality Other Narrative 01/22/2023 5:07 PM EDT ?[facility] ? Cardiac Catheterization/Intervention Report ? Patient Name: Daniel, Miguel ? Procedure Date: 01/22/2023 ? A #: [id number] ? Primary Physician: Morris, Layton P ? Case #: [id number] ? File Name: [id number] ? Catheterization Order Number: [id number] ? [facility] ? Final Report [place], [place] ? Patient Name: ? Miguel Sanchez ? ID#: ?[id number] ? : ?1955 ? Procedure Date: ? January 22, 2023 ?Case #: ? [id number] ? Room: ? 5 ? Case Physician: [...] procedure was Urgent. The indication for ?the chemical laboratory assistant visit is cardiomyopathy. Chest pain symptom assessment [...] Procedure Note Layton Morris MD - 01/22/2023 [facility] Cardiac Catheterization/Intervention Report Patient Name: Miguel Sanchez Procedure Date: 01/22/2023 A #: [id number] Primary Physician: Layton Morris Case #: [id number] File Name: [id number] Catheterization Order Number: [id number] [facility] FinalReport [place], [place] Patient Name: Miguel Sanchez ID#:[id number] :1955 Procedure Date: January 22, 2023 Case [...] patient was designated as ASA Class III. [facility] clinical frailty scale is 5: Mildly Frail. Diagnostic Tests: Medications Prior to Procedure: Angiotensin Converting Enzyme Inhibitor, Aspirin, Beta Blockerand Statin. Indications for Diagnostic Cath: The priority of the diagnostic procedure was Urgent. The indicationfor the chemical laboratory assistant visit is cardiomyopathy. Chest pain symptom assessmentwas: [...] POC Glucose 165 65 - 199 mg/dL [facility] Comment: Supplemental ranges: <140 mg/dL before meals <180 mg/dL all other times of the day Blood 01/22/2023 12:3 5 PM EDT 01/22/2023 12:35 PM EDT Mendel Luna MD POINT OF CARE TEST O RDERABLES Performing Organization Address City/[facility]/ZIP Co de Phone Number [facility] [place] [address] * POCT Glucose (01/22/2023 7:52 AM EDT) POC Glucose 145 65 - 199 mg/dL [facility] Comment: Supplemental ranges: <140 mg/dL before meals <180 mg/dL all other times of the day Blood 01/22/2023 7:52 AM EDT 01/22/2023 7:52 AM EDT Chris Lim MD POINT OF CARE TEST O TESSA [facility] [place] [address] * Differential, Automated (01/22/2023 2:42 AM EDT) Neutrophils % 73.7 % [facility] Neutr Abs (ANC) 6.10 1.70 - 6.10 x10(3)/[facility] Lymphocytes % 12.5 % [facility] Lymphocytes Abs 1.0 0.9 - 3.2 x10(3)/[facility] Monocytes % 8.8 % [facility] Monocyte Abs 0.7 0.3 - 0.9 x10(3)/[facility] Eosinophils % 4.1 % [facility] Eosinophils Abs 0.3 0.0 - 0.4 x10(3)/[facility] Basophils % 0.7 % [facility] Basophils Abs 0.1 0.0 - 0.1 x10(3)/[facility] Immature Gran % 0.20 % [facility] Comment: Immature granulocytes(IG's)percentage and absolute count will include metamyelocytes, myelocytes, and promyelocytes. Blood smears from CBCs yielding IG's will be scanned manually for concordance. If this scan disagrees with the automated IG or if promyelocytes are noted, a manual differential will be performed. Angelica Gran Abs 0.02 0.00 - 0.04 x10(3)/[facility] Blood 01/22/2023 2:42 AM EDT 01/22/2023 3:03 AM EDT Narrative Resulting Agency Comment Spec In Lab Kyle Mckeon MD HEMATOLOGY ORDERABLE S [facility] [place] [address] * (ABNORMAL) Hemogram (01/22/2023 2:42 AM EDT) WBC 8.3 4.0 - 9.5 x10(3)/[facility] RBC 3.41(L) 4.58 - 5.54 x10(6)/[facility] Hemoglobin 10.3(L) 13.7 - 16.5 g/dL [facility] Hematocrit 30.8(L) 40.5 - 48.5 % [facility] MCV 90.3 82.9 - 93.[address] [facility] MCH 30.2 27.5 - 32.[address] [facility] MCHC 33.4 32.0 - 35.7 g/dL [facility] Platelets 183 145 - 357 x10(3)/[facility] RDWSD 42.0 36.0 - 45.0 [facility] RDWCV 12.9 11.4 - 13.8 % [facility] MPV 12.1 7.6 - 12.9 [facility] nRBC % Auto 0.0 % [facility] nRBC Abs Auto 0.000 0.000 - 0.000 x10(3)/mcL [facility] Blood 01/22/2023 2:42 AM EDT 01/22/2023 3:03 AM EDT Narrative Resulting Agency Comment Spec In Lab Kyle Mckeon MD HEMATOLOGY ORDERABLE S Performing Organization Address City/[facility]/ZIP Co de Phone Number [facility] [place] [address] * (ABNORMAL) Phosphorus (01/22/2023 2:42 AM EDT) Phosphorus 5.8(H) 2.5 - 4.5 mg/dL [facility] Blood 01/22/2023 2:42 AM EDT 01/22/2023 3:03 AM EDT Narrative Resulting Agency Comment Spec In Lab Tanya Seaman MD CHEMISTRY ORDERABL ES Performing Organization Address [facility] Co de Phone Number [facility] [place] [address] * Magnesium (01/22/2023 2:42 AM EDT) Magnesium 0.97 0.69 - 1.07 mmol/L [facility] Blood 01/22/2023 2:42 AM EDT 01/22/2023 3:03 AM EDT Narrative Resulting Agency Comment Spec In Lab Tanya Seaman MD CHEMISTRY ORDERABL ES Performing Organization Address [facility] Co de Phone Number [facility] [place] [address] * (ABNORMAL) Basic Metabolic Panel (non-fasting) (01/22/2023 2:42 AM EDT) Glucose Lvl 153 65 - 199 mg/dL [facility] Comment:Diabetes: >=200 mg/d L plus symptoms BUN 79(H) 10 - 20 mg/dL [facility] Creatinine 5.86(H) 0.80 - 1.50 mg/dL [facility] Sodium 138 135 - 145 mmol/L [facility] Potassium 4.2 3.5 - 5.0 mmol/L [facility] Comment: Please note: ??Patients with WBC >100,000 may have falsely elevated Potassium levels. ??For accurate Potassium quantification in these patients send serum separator tube (gold top) for subsequent determinations. ??Contact the Clinical Chemistry Laboratory if there are any questions. Chloride 104 98 - 107 mmol/L [facility] CO2 20(L) 22 - 31 mmol/L [facility] Anion Gap 14 5 - 15 mmol/L [facility] Calcium 9.2 8.5 - 10.5 mg/dL [facility] Estimated GFR 10(L) >=60 mL/min/1. 73 m?? [facility] Comment: This patient's estimated GFR [...] Lab Tanya Seaman MD CHEMISTRY ORDERABL ES [facility] [place] [address] * C3 Complement (01/22/2023 2:42 AM EDT) C3 Complement 126 90 - 180 mg/dL [facility] Blood 01/22/2023 2:42 AM EDT 01/22/2023 3:03 AM EDT Narrative Resulting Agency Comment Spec In Lab Chris Lim MD CHEMISTRY ORDERABLES Performing Organization Address [facility]/ZIP Co de Phone Number [facility] [place] [address] * POCT Glucose (01/21/2023 6:41 PM EDT) POC Glucose 199 65 - 199 mg/dL [facility] Comment: Supplemental ranges: <140 mg/dL before meals <180 mg/dL all other times of the day Blood 01/21/2023 6:41 PM EDT 01/21/2023 6:41 PM EDT Chris Lim MD POINT OF CARE TEST O RDERABLES Performing Organization Address [facility]/ZIP Co de Phone Number [facility] [place] [address] * POCT Glucose (01/21/2023 3:57 PM EDT) POC Glucose 125 65 - 199 mg/dL [facility] Comment: Supplemental ranges: <140 mg/dL before meals <180 mg/dL all other times of the day Blood 01/21/2023 3:57 PM EDT 01/21/2023 3:57 PM EDT Chris Lim MD POINT OF CARE TEST O RDERAMARCY Performing Organization Address City/[facility]/ZIP Co de Phone Number [facility] [place] [address] * (ABNORMAL) POCT Glucose (01/21/2023 11:32 AM EDT) POC Glucose 249(H) 65 - 199 mg/dL [facility] Comment: Supplemental ranges: <140 mg/dL before meals <180 mg/dL all other times of the day Blood 01/21/2023 11:3 2 AM EDT 01/21/2023 11:32 AM EDT Chris Lim MD POINT OF CARE TEST O TESSA Performing Organization Address [facility] Co de Phone Number [facility] [place] [address] * (ABNORMAL) POCT Glucose (01/21/2023 9:38 AM EDT) Pathologist [facility] POC Glucose 233(H) 65 - 199 mg/dL [facility] Comment: Supplemental ranges: <140 mg/dL before meals <180 mg/dL all other times of the day Blood 01/21/2023 9:38 AM EDT 01/21/2023 9:38 AM EDT Chris Lim MD POINT OF CARE TEST Loco ZARATE Performing Organization Address [facility] de Phone Number [facility] [place] [address] * EKG 12 Lead (01/21/2023 8:33 AM EDT) Ventricular rate 74 BPM MUSE SYSTEM Atrial Rate 74 BPM MUSE SYSTEM P-R Interval 180 ms MUSE SYSTEM QRS Duration 126 ms MUSE SYSTEM Q-T Interval 454 ms MUSE SYSTEM QTC Calculated (Bezet) 503 ms MUSE SYSTEM Calculated P Randolph 32 degrees MUSE SYSTEM Calculated R Randolph -35 degrees MUSE SYSTEM Calculated T Randolph 97 degrees MUSE SYSTEM INTERPRETATION Normal sinus rhythm Left axis deviation Non-specific intra-ventricu lar conduction block Nonspecific T wave abnormality Abnormal ECG When compared with ECG of 18-JAN-2023 18:52, No significant change was found Confirmed by fellow Lacey Oliveros ([id number]) on 01/23/2023 10:03:20 AM Confirmed by MD Gonzalez David ([id number]) on 01/24/2023 8:22:03 AM MUSE SYSTEM 01/21/2023 8:33 AM EDT 01/24/2023 8:22 AM EDT Tanya Seaman MD ECG ORDERABLES MUSE SYSTEM * POCT Glucose (01/21/2023 8:05 AM EDT) Pathologist [facility] POC Glucose 178 65 - 199 mg/dL [facility] Comment: Supplemental ranges: <140 mg/dL before meals <180 mg/dL all other times of the day Blood 01/21/2023 8:05 AM EDT 01/21/2023 8:05 AM EDT Chris Lim MD POINT OF CARE TEST O RDERABLES Performing Organization Address City/[facility]/ZIP Co de Phone Number [facility] [place] [phone] * Differential, Automated (01/21/2023 2:42 AM EDT) Pathologist [facility] Neutrophils % 70.7 % [facility] Neutr Abs (ANC) 5.75 1.70 - 6.10 x10(3)/[facility] Lymphocytes % 14.5 % [facility] Lymphocytes Abs 1.2 0.9 - 3.2 x10(3)/[facility] Monocytes % 9.1 % [facility] Monocyte Abs 0.7 0.3 - 0.9 x10(3)/[facility] Eosinophils % 4.6 % [facility] Eosinophils Abs 0.4 0.0 - 0.4 x10(3)/[facility] Basophils % 0.7 % [facility] Basophils Abs 0.1 0.0 - 0.1 x10(3)/[facility] Immature Gran % 0.40 % [facility] Comment: Immature granulocytes(IG's)percentage and absolute count will include metamyelocytes, myelocytes, and promyelocytes. Blood smears from CBCs yielding IG's will be scanned manually for concordance. If this scan disagrees with the automated IG or if promyelocytes are noted, a manual differential will be performed. Angelica Gran Abs 0.03 0.00 - 0.04 x10(3)/[facility] Blood 01/21/2023 2:42 AM EDT 01/21/2023 2:59 AM EDT Narrative Resulting Agency Comment Spec In Lab Kyle Mckeon MD HEMATOLOGY ORDERABLE S [facility] [place] [address] * (ABNORMAL) Hemogram (01/21/2023 2:42 AM EDT) WBC 8.1 4.0 - 9.5 x10(3)/[facility] RBC 3.59(L) 4.58 - 5.54 x10(6)/[facility] Hemoglobin 11.1(L) 13.7 - 16.5 g/dL [facility] Hematocrit 32.4(L) 40.5 - 48.5 % [facility] MCV 90.3 82.9 - 93.[address] [facility] MCH 30.9 27.5 - 32.[address] [facility] MCHC 34.3 32.0 - 35.7 g/dL [facility] Platelets 202 145 - 357 x10(3)/[facility] RDWSD 42.5 36.0 - 45.0 [facility] RDWCV 12.8 11.4 - 13.8 % [facility] MPV 12.3 7.6 - 12.9 [facility] nRBC % Auto 0.0 % [facility] nRBC Abs Auto 0.000 0.000 - 0.000 x10(3)/[facility] Blood 01/21/2023 2:42 AM EDT 01/21/2023 2:59 AM EDT Narrative Resulting Agency Comment Spec In Lab Kyle Mckeon MD HEMATOLOGY ORDERABLE S Performing Organization Address [facility] de Phone Number [facility] [place] [address] * (ABNORMAL) Phosphorus (01/21/2023 2:42 AM EDT) Phosphorus 5.3(H) 2.5 - 4.5 mg/dL [facility] Blood 01/21/2023 2:42 AM EDT 01/21/2023 2:58 AM EDT Narrative Resulting Agency Comment Spec In Lab Tanya Seaman MD CHEMISTRY ORDERABL ES Performing Organization Address [facility] de Phone Number [facility] [place] [address] * Magnesium (01/21/2023 2:42 AM EDT) Magnesium 0.99 0.69 - 1.07 mmol/L [facility] Blood 01/21/2023 2:42 AM EDT 01/21/2023 2:58 AM EDT Narrative Resulting Agency Comment Spec In Lab Tanya Seaman MD CHEMISTRY ORDERABL ES Performing Organization Address [facility] de Phone Number [facility] [place] [address] * (ABNORMAL) Basic Metabolic Panel (non-fasting) (01/21/2023 2:42 AM EDT) Glucose Lvl 120 65 - 199 mg/dL [facility] Comment:Diabetes: >=200 mg/d L plus symptoms BUN 72(H) 10 - 20 mg/dL [facility] Creatinine 5.70(H) 0.80 - 1.50 mg/dL [facility] Sodium 140 135 - 145 mmol/L [facility] Potassium 4.2 3.5 - 5.0 mmol/L [facility] Comment: Please note: ??Patients with WBC >100,000 may have falsely elevated Potassium levels. ??For accurate Potassium quantification in these patients send serum separator tube (gold top) for subsequent determinations. ??Contact the Clinical Chemistry Laboratory if there are any questions. Chloride 100 98 - 107 mmol/L [facility] CO2 20(L) 22 - 31 mmol/L [facility] Anion Gap 20(H) 5 - 15 mmol/L [facility] Calcium 9.3 8.5 - 10.5 mg/dL [facility] Estimated GFR 10(L) >=60 mL/min/1. 73 m?? [facility] Comment: This patient's estimated GFR [...] Lab Tanya Seaman MD CHEMISTRY ORDERABL ES [facility] [place] [address] * POCT Glucose (01/20/2023 7:45 PM EDT) POC Glucose 158 65 - 199 mg/dL [facility] Comment: Supplemental ranges: <140 mg/dL before meals <180 mg/dL all other times of the day Blood 01/20/2023 7:45 PM EDT 01/20/2023 7:45 PM EDT Chris Lim MD POINT OF CARE TEST O RDERABLES Performing Organization Address [facility] Co de Phone Number [facility] [place] [address] * POCT Glucose (01/20/2023 4:38 PM EDT) POC Glucose 96 65 - 199 mg/dL [facility] Comment: Supplemental ranges: <140 mg/dL before meals <180 mg/dL all other times of the day Blood 01/20/2023 4:38 PM EDT 01/20/2023 4:38 PM EDT Chris Lim MD POINT OF CARE TEST O RDERABLES Performing Organization Address [facility] Co de Phone Number [facility] [place] [address] * POCT Glucose (01/20/2023 4:14 PM EDT) POC Glucose 101 65 - 199 mg/dL [facility] Comment: Supplemental ranges: <140 mg/dL before meals <180 mg/dL all other times of the day Blood 01/20/2023 4:14 PM EDT 01/20/2023 4:14 PM EDT Chris Lim MD POINT OF CARE TEST O RDERABLES Performing Organization Address [facility] Co de Phone Number [facility] [place] [address] * Hepatitis C Antibody (01/20/2023 3:23 PM EDT) Hepatitis C Ab Negative Negative [facility] Blood 01/20/2023 3:23 PM EDT 01/20/2023 3:28 PM EDT Narrative Resulting Agency Comment Spec In Lab Austin Sosa MD IMMUNOLOGY ORDERABLE S Performing Organization Address City/State/[facility] Co de Phone Number [facility] [place] [address] * Hepatitis B Core Antibody, Total (01/20/2023 3:23 PM EDT) Hep B Core Ab Negative Negative [facility] Blood 01/20/2023 3:23 PM EDT 01/20/2023 3:28 PM EDT Narrative Resulting Agency Comment Spec In Lab Chris Lim MD CHEMISTRY ORDERABLES Performing Organization Address [facility] Co de Phone Number [facility] [place] [address] * Hepatitis B Surface Antibody (01/20/2023 3:23 PM EDT) HepB Surface Ab Quant <3.5 IU/L [facility] Comment: HepB Surface Ab Quant: Unvaccinated: < 8.5 IU/L Vaccinated: >= 11.5 IU/L HepB Surface Ab Negative [facility] Comment: Patient is presumed to be not vaccinated or immune to HBV infection. Expected Results: Vaccinated: Positive Unvaccinated: Negative Blood 01/20/2023 3:23 PM EDT 01/20/2023 3:28 PM EDT Narrative Resulting Agency Comment Spec In Lab Chris Lim MD IMMUNOLOGY ORDERABLE S Performing Organization Address [facility] Co de Phone Number [facility] [place] [address] * HIV Screen, 4th Generation ([facility]CGP[place]AP[place]/NLH[place] (01/20/2023 3:23 PM EDT) HIV-1/2 Ab and Ag Negative Negative [facility] Comment: This 4th Generation HIV [...] HIV Comment Low Risk of HIV Infection [facility] Blood 01/20/2023 3:23 PM EDT 01/20/2023 3:28 PM EDT Narrative Resulting Agency Comment Spec In Lab Chris Lim MD IMMUNOLOGY ORDERABLE S Performing Organization Address City/[facility]/ZIP Co de Phone Number [facility] [place] [address] * (ABNORMAL) POCT Glucose (01/20/2023 11:33 AM EDT) POC Glucose 206(H) 65 - 199 mg/dL [facility] Comment: Supplemental ranges: <140 mg/dL before meals <180 mg/dL all other times of the day Blood 01/20/2023 11:3 3 AM EDT 01/20/2023 11:33 AM EDT Chris Lim MD POINT OF CARE TEST O RDERABLES Performing Organization Address City/[facility]/ZIP Co de Phone Number [facility] [place] [address] * POCT Glucose (01/20/2023 7:24 AM EDT) POC Glucose 152 65 - 199 mg/dL [facility] Comment: Supplemental ranges: <140 mg/dL before meals <180 mg/dL all other times of the day Blood 01/20/2023 7:24 AM EDT 01/20/2023 7:24 AM EDT Chris Lim MD POINT OF CARE TEST O RDERAMARCY Performing Organization Address City/[facility]/ZIP Co de Phone Number [facility] [place] [address] * Immunoglobulins, Quantitative (01/20/2023 3:26 AM EDT) IgG 880 700 - 1,600 mg/dL [facility] Comment: Pediatric Reference Intervals obtained from the Caliper Reference Interval project. http://www.sickkids.ca/caliperproject/index.html IgA 286 70 - 400 mg/dL [facility] IgM 72 40 - 230 mg/dL [facility] Blood Venous Draw / Unknown 01/20/2023 3:26 AM EDT 01/20/2023 3:44 AM EDT Narrative Resulting Agency Comment Spec In Lab Deonte Lugo MD CHEMISTRY ORDERABLE S Performing Organization Address [facility]/ZIP Co de Phone Number [facility] [place] [address] * Immunofixation Electrophoresis (01/20/2023 3:26 AM EDT) [facility] DOROTEO See Note [facility] Comment: No specific abnormality observed. Dr. Arnulfo Moore 01/23/2023 See scanned report. Blood Venous Draw / Unknown 01/20/2023 3:26 AM EDT 01/20/2023 3:44 AM EDT Narrative Resulting Agency Comment Spec In Lab Deonte Lugo MD CHEMISTRY ORDERABLE S Performing Organization Address [facility] Co de Phone Number [facility] [place] [address] * Protein Electrophoresis, serum (01/20/2023 3:26 AM EDT) Total Prot Elec 6.5 6.1 - 8.0 g/dL [facility] Albumin Elect 4.11 3.20 - 5.20 g/dL [facility] Alpha1-Globulin 0.25 0.10 - 0.30 g/dL [facility] Alpha2-Globulin 0.75 0.40 - 0.90 g/dL [facility] Beta Globulin 0.68 0.50 - 1.00 g/dL [facility] Gamma Globulin 0.71 0.50 - 1.30 g/dL [facility] M1 Band Comments Below None Detected [facility] SPEP Comments See Note [facility] Comment: Serum protein electrophoresis (PEP) [...] MD CHEMISTRY ORDERABLE S Performing Organization Address City/[facility]/ZIP Co de Phone Number [facility] [place] [address] * C4 Complement (01/20/2023 3:26 AM EDT) C4 Complement 31 10 - 40 mg/dL [facility] Blood Venous Draw / Unknown 01/20/2023 3:26 AM EDT 01/20/2023 3:44 AM EDT Narrative Resulting Agency Comment Spec In Lab Deonte Lugo MD CHEMISTRY ORDERABLE S Performing Organization Address City/[facility]/ZIP Co de Phone Number [facility] [place] [address] * (ABNORMAL) Free Light Chains, Serum (01/20/2023 3:26 AM EDT) Energy Free Light Chain 8.16(H) 0.72 - 2.75 mg/dL [facility] Lambda Free Light Chain 4.53(H) 0.57 - 2.15 mg/dL [facility] Energy Lambda FLC Ratio 1.8013 0.4000 - 2.5800 [facility] Blood Venous Draw / Unknown 01/20/2023 3:26 AM EDT 01/20/2023 3:44 AM EDT Narrative Resulting Agency Comment Spec In Lab Deonte Lugo MD CHEMISTRY ORDERABLE S [facility] [place] [address] * Differential, Automated (01/20/2023 3:26 AM EDT) Neutrophils % 75.0 % [facility] Neutr Abs (ANC) 6.04 1.70 - 6.10 x10(3)/[facility] Lymphocytes % 12.2 % [facility] Lymphocytes Abs 1.0 0.9 - 3.2 x10(3)/[facility] Monocytes % 8.6 % [facility] Monocyte Abs 0.7 0.3 - 0.9 x10(3)/[facility] Eosinophils % 3.3 % [facility] Eosinophils Abs 0.3 0.0 - 0.4 x10(3)/[facility] Basophils % 0.7 % [facility] Basophils Abs 0.1 0.0 - 0.1 x10(3)/[facility] Immature Gran % 0.20 % [facility] Comment: Immature granulocytes(IG's)percentage and absolute count will include metamyelocytes, myelocytes, and promyelocytes. Blood smears from CBCs yielding IG's will be scanned manually for concordance. If this scan disagrees with the automated IG or if promyelocytes are noted, a manual differential will be performed. Angelica Gran Abs 0.02 0.00 - 0.04 x10(3)/[facility] Blood 01/20/2023 3:26 AM EDT 01/20/2023 3:42 AM EDT Narrative Resulting Agency Comment Spec In Lab Kyle Mckeon MD HEMATOLOGY ORDERABLE S [facility] [place] [address] * (ABNORMAL) Hemogram (01/20/2023 3:26 AM EDT) WBC 8.1 4.0 - 9.5 x10(3)/[facility] RBC 3.54(L) 4.58 - 5.54 x10(6)/[facility] Hemoglobin 10.8(L) 13.7 - 16.5 g/dL [facility] Hematocrit 32.5(L) 40.5 - 48.5 % [facility] MCV 91.8 82.9 - 93.[address] [facility] MCH 30.5 27.5 - 32.[address] [facility] MCHC 33.2 32.0 - 35.7 g/dL [facility] Platelets 202 145 - 357 x10(3)/[facility] RDWSD 42.9 36.0 - 45.0 [facility] RDWCV 12.7 11.4 - 13.8 % [facility] MPV 11.6 7.6 - 12.9 [facility] nRBC % Auto 0.0 % [facility] nRBC Abs Auto 0.000 0.000 - 0.000 x10(3)/[facility] Blood 01/20/2023 3:26 AM EDT 01/20/2023 3:42 AM EDT Narrative Resulting Agency Comment Spec In Lab Kyle Mckeon MD HEMATOLOGY ORDERABLE S [facility] [place] [address] * (ABNORMAL) Phosphorus (01/20/2023 3:26 AM EDT) Phosphorus 4.7(H) 2.5 - 4.5 mg/dL [facility] Blood 01/20/2023 3:26 AM EDT 01/20/2023 3:42 AM EDT Narrative Resulting Agency Comment Spec In Lab Tanya Seaman MD CHEMISTRY ORDERABL ES Performing Organization Address [facility]/ZIP Co de Phone Number [facility] [place] [address] * Magnesium (01/20/2023 3:26 AM EDT) Pathologist [facility] Magnesium 0.95 0.69 - 1.07 mmol/L [facility] Blood 01/20/2023 3:26 AM EDT 01/20/2023 3:42 AM EDT Narrative Resulting Agency Comment Spec In Lab Tanya Seaman MD CHEMISTRY ORDERABL ES Performing Organization Address [facility] Co de Phone Number [facility] [place] [address] * (ABNORMAL) Basic Metabolic Panel (non-fasting) (01/20/2023 3:26 AM EDT) [facility] Glucose Lvl 109 65 - 199 mg/dL [facility] Comment:Diabetes: >=200 mg/d L plus symptoms BUN 67(H) 10 - 20 mg/dL [facility] Creatinine 5.79(H) 0.80 - 1.50 mg/dL [facility] Sodium 139 135 - 145 mmol/L [facility] Potassium 4.5 3.5 - 5.0 mmol/L [facility] Comment: Please note: ??Patients with WBC >100,000 may have falsely elevated Potassium levels. ??For accurate Potassium quantification in these patients send serum separator tube (gold top) for subsequent determinations. ??Contact the Clinical Chemistry Laboratory if there are any questions. Chloride 102 98 - 107 mmol/L [facility] CO2 20(L) 22 - 31 mmol/L [facility] Anion Gap 17(H) 5 - 15 mmol/L [facility] Calcium 8.8 8.5 - 10.5 mg/dL [facility] Estimated GFR 10(L) >=60 mL/min/1. 73 m?? [facility] Comment: This patient's estimated GFR [...] MD CHEMISTRY ORDERABL ES Performing Organization Address [facility]/ZIP Co de Phone Number [facility] [place] [address] * (ABNORMAL) Ferritin (01/20/2023 3:26 AM EDT) Ferritin 478(H) 30 - 400 ng/mL [facility] Comment: Pediatric reference ranges not verified [place] [facility] interpret with caution. Reference ranges for females greater than 50 years of age approach values for men, i.e., 30-400 ng/mL. Blood 01/20/2023 3:26 AM EDT 01/20/2023 3:42 AM EDT Narrative Resulting Agency Comment Spec In Lab Sixto Morrow MD CHEMISTRY ORDERABLES Performing Organization Address City/[facility]/ZIP Co de Phone Number [facility] [place] [address] * (ABNORMAL) Iron and TIBC (01/20/2023 3:26 AM EDT) Iron 68 45 - 160 mcg/dL [facility] TIBC 229(L) 250 - 450 mcg/dL [facility] Iron Saturation 30 20 - 50 % [facility] Blood 01/20/2023 3:26 AM EDT 01/20/2023 3:42 AM EDT Narrative Resulting Agency Comment Spec In Lab Sixto Morrow MD CHEMISTRY ORDERABLES Performing Organization Address [facility]/ZIP Co de Phone Number [facility] [place] [address] * (ABNORMAL) PTH (01/20/2023 3:26 AM EDT) PTH 401(H) 15 - 65 pg/mL [facility] Blood 01/20/2023 3:26 AM EDT 01/20/2023 3:42 AM EDT Narrative Resulting Agency Comment Spec In Lab Sixto Morrow MD CHEMISTRY ORDERABLES Performing Organization Address [facility] Co de Phone Number [facility] [place] [address] * (ABNORMAL) Vitamin D, 25-Hydroxy (01/20/2023 3:26 AM EDT) 25-OH Vit D Total 9(L) 21 - 100 ng/mL [facility] 25-OH Vit D Interp Deficient [facility] Blood 01/20/2023 3:26 AM EDT 01/20/2023 3:42 AM EDT Narrative Resulting Agency Comment Spec In Lab Sixto Morrow MD CHEMISTRY ORDERABLES Performing Organization Address City/[facility]/ZIP Co de Phone Number [facility] [place] [address] * POCT Glucose (01/19/2023 9:33 PM EDT) POC Glucose 112 65 - 199 mg/dL [facility] Comment: Supplemental ranges: <140 mg/dL before meals <180 mg/dL all other times of the day Blood 01/19/2023 9:33 PM EDT 01/19/2023 9:33 PM EDT Chris Lim MD POINT OF CARE TEST O TESSA Performing Organization Address City/[facility]/ZIP Co de Phone Number [facility] [place] [address] * POCT Glucose (01/19/2023 4:37 PM EDT) POC Glucose 175 65 - 199 mg/dL [facility] Comment: Supplemental ranges: <140 mg/dL before meals <180 mg/dL all other times of the day Blood 01/19/2023 4:37 PM EDT 01/19/2023 4:37 PM EDT Chris Lim MD POINT OF CARE TEST O TESSA Performing Organization Address [facility] Co de Phone Number [facility] [place] [address] * (ABNORMAL) Basic Metabolic Panel (non-fasting) (01/19/2023 2:15 PM EDT) Glucose Lvl 206(H) 65 - 199 mg/dL [facility] Comment:Diabetes: >=200 mg/d L plus symptoms BUN 59(H) 10 - 20 mg/dL [facility] Creatinine 5.69(H) 0.80 - 1.50 mg/dL [facility] Sodium 140 135 - 145 mmol/L [facility] Potassium 4.4 3.5 - 5.0 mmol/L [facility] Comment: Please note: ??Patients with WBC >100,000 may have falsely elevated Potassium levels. ??For accurate Potassium quantification in these patients send serum separator tube (gold top) for subsequent determinations. ??Contact the Clinical Chemistry Laboratory if there are any questions. Chloride 102 98 - 107 mmol/L [facility] CO2 22 22 - 31 mmol/L [facility] Anion Gap 16(H) 5 - 15 mmol/L [facility] Calcium 9.3 8.5 - 10.5 mg/dL [facility] Estimated GFR 10(L) >=60 mL/min/1. 73 m?? [facility] Comment: This patient's estimated GFR [...] MD CHEMISTRY ORDERABL ES Performing Organization Address [facility]/ZIP Co de Phone Number [facility] [place] [address] * POCT Glucose (01/19/2023 11:31 AM EDT) POC Glucose 96 65 - 199 mg/dL [facility] Comment: Supplemental ranges: <140 mg/dL before meals <180 mg/dL all other times of the day Blood 01/19/2023 11:3 1 AM EDT 01/19/2023 11:31 AM EDT Chris Lim MD POINT OF CARE TEST O RDERABLES Performing Organization Address [facility]/ZIP Co de Phone Number [facility] [place] [address] * (ABNORMAL) Basic Metabolic Panel (non-fasting) (01/19/2023 10:29 AM EDT) Glucose Lvl 87 65 - 199 mg/dL [facility] Comment:Diabetes: >=200 mg/d L plus symptoms BUN 60(H) 10 - 20 mg/dL [facility] Creatinine 5.63(H) 0.80 - 1.50 mg/dL [facility] Sodium 143 135 - 145 mmol/L [facility] Potassium 4.4 3.5 - 5.0 mmol/L [facility] Comment: Please note: ??Patients with WBC >100,000 may have falsely elevated Potassium levels. ??For accurate Potassium quantification in these patients send serum separator tube (gold top) for subsequent determinations. ??Contact the Clinical Chemistry Laboratory if there are any questions. Chloride 107 98 - 107 mmol/L [facility] CO2 21(L) 22 - 31 mmol/L [facility] Anion Gap 15 5 - 15 mmol/L [facility] Calcium 9.1 8.5 - 10.5 mg/dL [facility] Estimated GFR 10(L) >=60 mL/min/1. 73 m?? [facility] Comment: This patient's estimated GFR [...] Lab Tanya Seaman MD CHEMISTRY ORDERABL ES [facility] [place] [address] * ECHO COMPLETE W CONTRAST (01/19/2023 8:59 AM EDT) Anatomical Region Laterality Modality Cardiac Other 01/19/2023 6:52 AM EDT Narrative 01/19/2023 11:43 AM EDT ? Echocardiogram Report Name: MIGUEL SANCHEZ ? Study Date: 01/19/2023 06:52 AMBP: 142/82 mmHg ? Patient Location: [id number] A : 1955 ? Height: 165 cm ? Account: [id number] Age: 67 yrs ? Weight: 110 kg Gender: Male ?BSA: 2.1 m2 Ordering Physician: TANYA SEAMAN Referring Physician: ELHAM DYKES Performed By: Cathleen Ware RDCS Reason For Study: Heart failure Interpreting Fellow: Martin Reyes. Exam Location: [facility]. Interpretation Summary Left ventricle is mildly dilated [...] ventricular systolic function has further decreased. Procedure Complete-[id number]. Satisfactory quality. Left Ventricle Left ventricle is [...] Date: 306:52 AMBP: 142/82 mmHg Patient Location: [address] : 1955 Height: 165 cm Account: [id number] Age: 67 yrs Weight: 110 kg Gender: Male BSA: 2.1 m2 Ordering Physician: TANYA SEAMAN Referring Physician: ELHAM DYKES Performed By: Cathleen Ware RDCS Reason For Study: Heart failure Interpreting Fellow: Martin Reyes. Exam Location: [facility]. Interpretation Summary Left ventricle is mildly dilated [...] left ventricular systolicfunction has further decreased. Procedure Complete-[id number]. Satisfactory quality. Left Ventricle Left ventricle is [...] who have questions, please contact the health patient care secretary that requested your imaging first. ?Jimmie العراقي, Staff Physician Electronically Signed Final Report ?? 01/19/2023 08:47 am Narrative 01/19/2023 8:47 AM EDT Renal ? (Signed Final 01/19/2023 08:47 am) PATIENT INFO: ID #: ? [id number] ?: ??[birth year] (67 yrs)(M) Name: ? MIGUEL DANIEL ? Visit Date: 01/19/2023 08:27 am PERFORMED BY: Attending: ?Malcom OTT, Jimmie Perez Performed By: ? Kary Iqbal RDMS Referred By: ?TANYA SEAMAN Location: ? [place] SERVICE(S) PROVIDED: URETRO - Retroperitoneal Complete - [id number] ? [id number] INDICATIONS: New CLEM of unclear etiology RIGHT [...] 01/19/2023 08:47 am) PATIENT INFO: ID #: [id number] : [birth year] (67 yrs)(M) Name: MIGUEL SANCHEZ Visit Date: 01/19/2023 08:27 am PERFORMED BY: Attending: Jimmie العراقي MD Performed By: Kary Iqbal RDMS Referred By: TANYA SEAMAN Location: [place] SERVICE(S) PROVIDED: URETRO - Retroperitoneal Complete - [id number] INDICATIONS: New CLEM of unclear etiology RIGHT [...] who have questions, please contact the health patient care secretary that requested your imaging first. Jimmie العراقي, Staff Physician Electronically Signed Final Report 01/19/2023 08:47 am Tanya Seaman MD [facility] GEN ORDERAB LES * POCT Glucose (01/19/2023 8:00 AM EDT) POC Glucose 92 65 - 199 mg/dL [facility] Comment: Supplemental ranges: <140 mg/dL before meals <180 mg/dL all other times of the day Blood 01/19/2023 8:00 AM EDT 01/19/2023 8:00 AM EDT Tanya Seaman MD POINT OF CARE TEST ORDERABLES [facility] [place] [address] * POCT Glucose (01/19/2023 7:42 AM EDT) POC Glucose 87 65 - 199 mg/dL [facility] Comment: Supplemental ranges: <140 mg/dL before meals <180 mg/dL all other times of the day Blood 01/19/2023 7:42 AM EDT 01/19/2023 7:42 AM EDT Tanya Seaman MD POINT OF CARE TEST ORDERABLES Performing Organization Address City/State/[facility] Co de Phone Number [facility] [place] [address] * (ABNORMAL) Basic Metabolic Panel (non-fasting) (01/19/2023 6:21 AM EDT) Glucose Lvl 80 65 - 199 mg/dL [facility] Comment:Diabetes: >=200 mg/d L plus symptoms BUN 58(H) 10 - 20 mg/dL [facility] Creatinine 5.52(H) 0.80 - 1.50 mg/dL [facility] Sodium 143 135 - 145 mmol/L [facility] Potassium 4.3 3.5 - 5.0 mmol/L [facility] Comment: Please note: ??Patients with WBC >100,000 may have falsely elevated Potassium levels. ??For accurate Potassium quantification in these patients send serum separator tube (gold top) for subsequent determinations. ??Contact the Clinical Chemistry Laboratory if there are any questions. Chloride 107 98 - 107 mmol/L [facility] CO2 21(L) 22 - 31 mmol/L [facility] Anion Gap 15 5 - 15 mmol/L [facility] Calcium 8.9 8.5 - 10.5 mg/dL [facility] Estimated GFR 11(L) >=60 mL/min/1. 73 m?? [facility] Comment: This patient's estimated GFR [...] Lab Tanya Seaman MD CHEMISTRY ORDERABL ES [facility] [place] [address] * CK (01/19/2023 1:50 AM EDT) CK, Total 70 0 - 200 unit/L [facility] Blood Venous Draw / Unknown 01/19/2023 1:50 AM EDT 01/19/2023 1:55 AM EDT Narrative Resulting Agency Comment Spec In Lab Kyle Mckeon MD CHEMISTRY ORDERABLES [facility] [place] [address] * Differential, Automated (01/19/2023 1:50 AM EDT) Neutrophils % 73.8 % [facility] Neutr Abs (ANC) 5.75 1.70 - 6.10 x10(3)/[facility] Lymphocytes % 13.8 % [facility] Lymphocytes Abs 1.1 0.9 - 3.2 x10(3)/[facility] Monocytes % 8.5 % [facility] Monocyte Abs 0.7 0.3 - 0.9 x10(3)/[facility] Eosinophils % 3.0 % [facility] Eosinophils Abs 0.2 0.0 - 0.4 x10(3)/[facility] Basophils % 0.6 % [facility] Basophils Abs 0.0 0.0 - 0.1 x10(3)/[facility] Immature Gran % 0.30 % [facility] Comment: Immature granulocytes(IG's)percentage and absolute count will include metamyelocytes, myelocytes, and promyelocytes. Blood smears from CBCs yielding IG's will be scanned manually for concordance. If this scan disagrees with the automated IG or if promyelocytes are noted, a manual differential will be performed. Angelica Gran Abs 0.02 0.00 - 0.04 x10(3)/[facility] Blood 01/19/2023 1:50 AM EDT 01/19/2023 1:54 AM EDT Narrative Resulting Agency Comment Spec In Lab Kyle Mckeon MD HEMATOLOGY ORDERABLE S [facility] [place] [address] * (ABNORMAL) Hemogram (01/19/2023 1:50 AM EDT) WBC 7.8 4.0 - 9.5 x10(3)/[facility] RBC 3.25(L) 4.58 - 5.54 x10(6)/[facility] Hemoglobin 10.1(L) 13.7 - 16.5 g/dL [facility] Hematocrit 30.3(L) 40.5 - 48.5 % [facility] MCV 93.2(H) 82.9 - 93.[address] [facility] MCH 31.1 27.5 - 32.[address] [facility] MCHC 33.3 32.0 - 35.7 g/dL [facility] Platelets 173 145 - 357 x10(3)/[facility] RDWSD 44.6 36.0 - 45.[address] [facility] RDWCV 13.0 11.4 - 13.8 % [facility] MPV 11.5 7.6 - 12.[address] [facility] nRBC % Auto 0.0 % [facility] nRBC Abs Auto 0.000 0.000 - 0.000 x10(3)/mcL [facility] Blood 01/19/2023 1:50 AM EDT 01/19/2023 1:54 AM EDT Narrative Resulting Agency Comment Spec In Lab Kyle Mckeon MD HEMATOLOGY ORDERABLE S Performing Organization Address City/[facility]/ZIP Co de Phone Number [facility] [place] [address] * Phosphorus (01/19/2023 1:50 AM EDT) Phosphorus 4.3 2.5 - 4.5 mg/dL [facility] Blood 01/19/2023 1:50 AM EDT 01/19/2023 1:54 AM EDT Narrative Resulting Agency Comment Spec In Lab Tanya Seaman MD CHEMISTRY ORDERABL ES Performing Organization Address [facility] Co de Phone Number [facility] [place] [address] * Magnesium (01/19/2023 1:50 AM EDT) Magnesium 0.80 0.69 - 1.07 mmol/L [facility] Blood 01/19/2023 1:50 AM EDT 01/19/2023 1:54 AM EDT Narrative Resulting Agency Comment Spec In Lab Tanya Seaman MD CHEMISTRY ORDERABL ES Performing Organization Address [facility] Co de Phone Number [facility] [place] [address] * (ABNORMAL) Basic Metabolic Panel (non-fasting) (01/19/2023 1:50 AM EDT) Glucose Lvl 78 65 - 199 mg/dL [facility] Comment:Diabetes: >=200 mg/d L plus symptoms BUN 54(H) 10 - 20 mg/dL [facility] Creatinine 5.50(H) 0.80 - 1.50 mg/dL [facility] Sodium 143 135 - 145 mmol/L [facility] Potassium 4.3 3.5 - 5.0 mmol/L [facility] Comment: Please note: ??Patients with WBC >100,000 may have falsely elevated Potassium levels. ??For accurate Potassium quantification in these patients send serum separator tube (gold top) for subsequent determinations. ??Contact the Clinical Chemistry Laboratory if there are any questions. Chloride 107 98 - 107 mmol/L [facility] CO2 22 22 - 31 mmol/L [facility] Anion Gap 14 5 - 15 mmol/L [facility] Calcium 8.9 8.5 - 10.5 mg/dL [facility] Estimated GFR 11(L) >=60 mL/min/1. 73 m?? [facility] Comment: This patient's estimated GFR [...] Lab Tanya Seaman MD CHEMISTRY ORDERABL ES [facility] [place] [address] * POCT Glucose (01/19/2023 1:46 AM EDT) [facility] POC Glucose 75 65 - 199 mg/dL [facility] Comment: Supplemental ranges: <140 mg/dL before meals <180 mg/dL all other times of the day Blood 01/19/2023 1:46 AM EDT 01/19/2023 1:46 AM EDT Tanya Seaman MD POINT OF CARE TEST ORDERABLES [facility] [place] [address] * (ABNORMAL) Blood Gas Venous (NLH) (01/18/2023 10:20 PM EDT) [facility] pH William 7.37 7.32 - 7.42 [facility] pCO2 William 38(L) 41 - [address] [facility] pO2 William 30 25 - [address] [facility] HCO3 William 21.7 mmol/L [facility] BE William -3.7 mmol/L [facility] Hgb Blood Gas Not Perf 13.7 - 16.5 g/dL [facility] O2HB William Not Perf % [facility] COHB William Not Perf % [facility] Comment: Nonsmokers: 0.5-1.5% COHB Smokers: Variable, but usually less than 10% Toxic: 20-30% COHB Lethal: Greater than 60% COHB METHB William Not Perf <=1.5 % [facility] Na Whole Blood 140 135 - 145 mmol/L [facility] K Whole Blood 4.5 3.5 - 5.0 mmol/L [facility] Comment: Please note: Patients with WBC >100,000 may have falsely elevated Potassium levels. Contact the Clinical Chemistry Laboratory if there are any questions. ICa Whole Blood 1.14(L) 1.15 - 1.33 mmol/L [facility] Comment: Note: ??Total bilirubin higher than 20 mg/dL may lead to falsely low ionized calcium. CL Whole Blood 109(H) 98 - 107 mmol/L [facility] Gluc Whole Bld 73 65 - 199 mg/dL [facility] Comment:Diabetes: >=200 mg/d L plus symptoms Lactate WB 1.3 0.5 - 2.2 mmol/L [facility] BGas Source Venous [facility] Blood Venous Draw / Unknown 01/18/2023 10:20 PM EDT 01/18/2023 10:26 PM EDT Narrative Resulting Agency Comment Spec In Lab Kyle Mckeon MD CHEMISTRY ORDERABLES [facility] [place] [address] * (ABNORMAL) Basic Metabolic Panel (non-fasting) (01/18/2023 10:16 PM EDT) Glucose Lvl 74 65 - 199 mg/dL [facility] Comment:Diabetes: >=200 mg/d L plus symptoms BUN 60(H) 10 - 20 mg/dL [facility] Creatinine 5.81(H) 0.80 - 1.50 mg/dL [facility] Sodium 145 135 - 145 mmol/L [facility] Potassium 4.8 3.5 - 5.0 mmol/L [facility] Comment: Please note: ??Patients with WBC >100,000 may have falsely elevated Potassium levels. ??For accurate Potassium quantification in these patients send serum separator tube (gold top) for subsequent determinations. ??Contact the Clinical Chemistry Laboratory if there are any questions. Chloride 109(H) 98 - 107 mmol/L [facility] CO2 Not Per[address] [facility] Comment:Add-on request. Samp le too old to perform test. Anion Gap Unable to Calculate 5 - 15 mmol/L [facility] Calcium 9.2 8.5 - 10.5 mg/dL [facility] Estimated GFR 10(L) >=60 mL/min/1 .73 m?? [facility] Comment: This patient's estimated GFR [...] In Lab Kyle Mckeon MD CHEMISTRY ORDERABLES [facility] [place] [address] * (ABNORMAL) Differential, Automated (01/18/2023 10:16 PM EDT) Neutrophils % 78.0 % [facility] Neutr Abs (ANC) 5.41 1.70 - 6.10 x10(3)/mc L [facility] Lymphocytes % 11.5 % [facility] Lymphocytes Abs 0.8(L) 0.9 - 3.2 x10(3)/mc L [facility] Monocytes % 6.6 % [facility] Monocyte Abs 0.5 0.3 - 0.9 x10(3)/mc L [facility] Eosinophils % 3.0 % [facility] Eosinophils Abs 0.2 0.0 - 0.4 x10(3)/mc L [facility] Basophils % 0.6 % [facility] Basophils Abs 0.0 0.0 - 0.1 x10(3)/mc L [facility] Immature Gran % 0.30 % [facility] Comment: Immature granulocytes(IG's)percentage and absolute count will include metamyelocytes, myelocytes, and promyelocytes. Blood smears from CBCs yielding IG's will be scanned manually for concordance. If this scan disagrees with the automated IG or if promyelocytes are noted, a manual differential will be performed. Angelica Gran Abs 0.02 0.00 - 0.04 x10(3)/mc L [facility] Blood 01/18/2023 10:1 6 PM EDT 01/18/2023 10:27 PM EDT Narrative Resulting Agency Comment Spec In Lab Kyle Mckeon MD HEMATOLOGY ORDERABLE S [facility] [place] [address] * (ABNORMAL) Hemogram (01/18/2023 10:16 PM EDT) WBC 6.9 4.0 - 9.5 x10(3)/[facility] RBC 3.30(L) 4.58 - 5.54 x10(6)/[facility] Hemoglobin 10.1(L) 13.7 - 16.5 g/dL [facility] Hematocrit 31.0(L) 40.5 - 48.5 % [facility] MCV 93.9(H) 82.9 - 93.1 [facility] MCH 30.6 27.5 - 32.[address] [facility] MCHC 32.6 32.0 - 35.7 g/dL [facility] Platelets 196 145 - 357 x10(3)/[facility] RDWSD 44.9 36.0 - 45.0 [facility] RDWCV 13.1 11.4 - 13.8 % [facility] MPV 11.4 7.6 - 12.9 [facility] nRBC % Auto 0.0 % [facility] nRBC Abs Auto 0.000 0.000 - 0.000 x10(3)/mcL [facility] Blood 01/18/2023 10:1 6 PM EDT 01/18/2023 10:27 PM EDT Narrative Resulting Agency Comment Spec In Lab Kyle Mckeon MD HEMATOLOGY ORDERABLE S Performing Organization Address [facility]/ZIP Co de Phone Number [facility] [place] [place] [address] * Salicylate (01/18/2023 10:16 PM EDT) Salicylate Lvl 3 mg/L [facility] Comment: Therapeutic Range: ??< 200 [...] MD CHEMISTRY ORDERABL ES Performing Organization Address [facility] de Phone Number [facility] [place] [address] * (ABNORMAL) Acetaminophen level (01/18/2023 10:16 PM EDT) Acetamin Lvl <5(L) 5 - 30 mg/L [facility] Comment: Levels >150 mg/L at 4 hours post ingestion are often an indication for N-Acetylcysteine. Blood 01/18/2023 10:1 6 PM EDT 01/18/2023 10:27 PM EDT Narrative Resulting Agency Comment Spec In Lab Tanya Seaman MD CHEMISTRY ORDERABL ES Performing Organization Address [facility] Co de Phone Number [facility] [address] * Phosphorus (01/18/2023 10:16 PM EDT) Phosphorus 4.2 2.5 - 4.5 mg/dL [facility] Blood 01/18/2023 10:1 6 PM EDT 01/18/2023 10:27 PM EDT Narrative Resulting Agency Comment Spec In Lab Tanya Seaman MD CHEMISTRY ORDERABL ES Performing Organization Address [facility]/ZIP Co de Phone Number [facility] [place] [address] * Magnesium (01/18/2023 10:16 PM EDT) Magnesium 0.87 0.69 - 1.07 mmol/L [facility] Blood 01/18/2023 10:1 6 PM EDT 01/18/2023 10:27 PM EDT Narrative Resulting Agency Comment Spec In Lab Tanya Seaman MD CHEMISTRY ORDERABL ES Performing Organization Address [facility] Co de Phone Number [facility] [place] [address] * APTT (01/18/2023 10:16 PM EDT) PTT 35 25 - [address] [facility] Comment: The PTT is NOT appropriate for heparin monitoring. Use the Anti-Xa level for heparin monitoring (HEP UFH) or LMWH monitoring (HEP LMW). A PTT less than 37 seconds generally indicates adequate hemostasis. Blood 01/18/2023 10:1 6 PM EDT 01/18/2023 10:27 PM EDT Narrative Resulting Agency Comment Spec In Lab Tanya Seaman MD HEMATOLOGY ORDERAB LES Performing Organization Address [facility]/ZIP Co de Phone Number [facility] [place] [address] * (ABNORMAL) Prothrombin Time (01/18/2023 10:16 PM EDT) PT 14.3(H) 9.4 - 12.[address] [facility] INR 1.3 [facility] Comment: An INR <2.0 indicates [...] Lab Tanya Seaman MD HEMATOLOGY ORDERAB LES [facility] [place] [address] * (ABNORMAL) Hemoglobin A1c (01/18/2023 10:16 PM EDT) Hemoglobin A1C 5.7(H) 4.3 - 5.6 % [facility] Comment: Reference Range: 4.3 - [...] 1, S67-74 Est Avg Gluc 117 mg/dL [facility] Comment: eAG equivalents for [...] into estimated average glucose values. ??Diabetes Care 2008:31(8):8963-9009. Blood 01/18/2023 10:1 6 PM EDT 01/18/2023 10:27 PM EDT Narrative Resulting Agency Comment Spec In Lab Tanya Seaman MD CHEMISTRY ORDERABL ES Performing Organization Address [facility] de Phone Number [facility] [place] [address] * TSH Wilson (01/18/2023 10:16 PM EDT) TSH 2.03 0.27 - 4.20 mcIU/mL [facility] Comment: Reference Interval (mcIU/mL): Females: ??First Trimester: 0.23-3.88 ??Second Trimester: 0.22-3.90 ??Third Trimester: 0.44-4.66 Blood 01/18/2023 10:1 6 PM EDT 01/18/2023 10:27 PM EDT Narrative Resulting Agency Comment Spec In Lab Tanya Seaman MD CHEMISTRY ORDERABL ES Performing Organization Address [facility] Co de Phone Number [facility] [place] [address] * LDL Cholesterol, Direct (01/18/2023 10:16 PM EDT) LDL Chol Direct 65 mg/dL [facility] Comment: Lowest Risk: <100 mg/dL Lower Risk: 100-129 mg/dL Borderline High Risk: 130-159 mg/dL High Risk: 160-189 mg/dL Very High Risk: >jh=695 mg/dL Blood 01/18/2023 10:1 6 PM EDT 01/18/2023 10:27 PM EDT Narrative Resulting Agency Comment Spec In Lab Tanya Seaman MD CHEMISTRY ORDERABL ES [facility] [place] [address] * HDL/Cholesterol Profile (01/18/2023 10:16 PM EDT) Chol, Total 122 mg/dL [facility] Comment: Lower Risk: <200 mg/dL Average Risk: 200-239 mg/dL Higher Risk: >ix=085 mg/dL HDL 27 mg/dL [facility] Comment: Males: ?? Higher Risk: <40 mg/dL Females: ?? Higher Risk: <50 mg/dL Chol/HDL Ratio 4.[address] [facility] Chol/HDL Interpretation See Note [facility] Comment: Lipid management should be guided by a patient? s ASCVD risk, goals and preferences. ACC/AHA Guidelines recommend high intensity statin if clinical ASCVD or LDL greater than or equal to 190 mg/dL. http://salgomedurl.com/WBO-ZNH-[place] Measure LDL if Total Cholesterol minus HDL Cholesterol is greater than 220 mg/dL. Adults aged 40-75 with LDL 70-189 mg/dL should have their 10 year ASCVD risk estimated with the ACC/AHA ASCVD risk shoe shanker http://tools.acc.org/OSPBQ-Bwkw-Uqojtjlwq/ Statin should be discussed if risk greater [...] MD CHEMISTRY ORDERABL ES Performing Organization Address City/[facility]/ZIP Co de Phone Number [facility] [place] [address] * (ABNORMAL) Troponin (01/18/2023 10:16 PM EDT) Troponin-T HS 78(H) <=22 ng/L [facility] Comment: This patient's troponin T [...] [facility] Test Catalog Reference: Fourth [place] Definition of Myocardial Infarction. Journal of the [employer] 2018;72:9145-8728 Blood 01/18/2023 10:1 6 PM EDT 01/18/2023 10:27 PM EDT Narrative Resulting Agency Comment Spec In Lab Tanya Seaman MD CHEMISTRY ORDERABL ES [facility] [place] [address] * (ABNORMAL) Protein/Creatinine Ratio, urine (01/18/2023 10:13 PM EDT) U Creatinine 41 mg/dL [facility] U Protein Ran 200(H) 0 - 12 mg/dL [facility] Prot/Cre Ratio 4.[address] [facility] Urine Urine / Unknown 01/18/2023 1 0:13 PM EDT 01/18/2023 10:29 PM EDT Narrative Resulting Agency Comment Spec In Lab Deonte Lugo MD URINE ORDERABLES Performing Organization Address [facility]/ZIP Co de Phone Number [facility] [place] [address] * Urine culture (01/18/2023 10:13 PM EDT) Urine Culture No growth (Less than 1,000 cfu/ml). [facility] Indwelling Catheter Urine 01/18/2023 10:13 PM EDT 01/18/2023 11:08 PM EDT Narrative Resulting Agency Comment Spec In Lab Kyle Mckeon MD MICROBIOLOGY - GENER AL ORDERABLES Performing Organization Address [facility]/ZIP Co de Phone Number [facility] [place] [address] * (ABNORMAL) Urinalysis Microscopic Exam (01/18/2023 10:13 PM EDT) RBC UA >100(H) 0 - 3 /HPF [facility] WBC UA 10(H) 0 - 3 /HPF [facility] Squam Epith UA 5(H) <=4 /HPF [facility] Hyaline Cast UA 2 0 - 2 /LPF [facility] Indwelling Catheter Urine 01/18/2023 10:13 PM EDT 01/18/2023 10:22 PM EDT Narrative Resulting Agency Comment Spec In Lab Kyle Mckeon MD URINE ORDERABLES [facility] [place] [address] * Rapid Drug Screen w/ Confirmation, Urine (01/18/2023 10:13 PM EDT) U Barbiturates Screen None Detected None Detected [facility] Comment: The barbiturate screen detects [...] U Benzodiazepines Screen None Detected None Detected [facility] Comment: The benzodiazepines screen detects [...] U Cocaine Screen None Detected None Detected [facility] Comment: The cocaine metabolites screen detects benzoylecgonine (Cocaine Metabolite) at concentrations >150 ng/mL. A ? Presumptive Positive? result indicates that the screening result was positive but has not yet been confirmed by a highly-specific method. As with any screen, occasional false positive results from cross-reacting substances may occur. Not for Medico-Legal Purposes. U Methadone Metabolites Screen None Detected None Detected [facility] Comment: The methadone metabolite screen detects EDDP (major methadone metabolite) at concentrations >100 ng/mL. A ? Presumptive Positive? result indicates that the screening result was positive but has not yet been confirmed by a highly-specific method. As with any screen, occasional false positive results from cross-reacting substances may occur. Not for Medico-Legal Purposes. U Opiate Screen None Detected None Detected [facility] Comment: The opiates screen detects [...] U Cannabinoid Screen None Detected None Detected [facility] Comment: The marijuana metabolites screen detects the THC metabolite (14-uaz-3-carboxy-delta 9-THC) at concentrations >20 ng/mL. A ? Presumptive Positive? result indicates that the screening result was positive but has not yet been confirmed by a highly-specific method. As with any screen, occasional false positive results from cross-reacting substances may occur. Not for Medico-Legal Purposes. U Oxycodone Screen None Detected None Detected [facility] Comment: The oxycodone screen detects oxycodone and oxymorphone at concentrations >100 ng/mL. A ? Presumptive Positive? result indicates that the screening result was positive but has not yet been confirmed by a highly-specific method. As with any screen, occasional false positive results from cross-reacting substances may occur. Not for Medico-Legal Purposes. U Buprenorphine Screen None Detected None Detected [facility] Comment: The buprenorphine screen detects [...] characteristics of this test were determined by [facility] in accordance with CLIA requirements. This laboratory is qualified under CLIA to perform high-complexity testing. U Fentanyl Screen None Detected None Detected [facility] Comment: The fentanyl screen detects [...] U Tricyclics Screen None Detected None Detected [facility] Comment: The tricyclics screen detects [...] characteristics of this test were determined by [facility] in accordance with CLIA requirements. This laboratory is qualified under CLIA to perform high-complexity testing. U Ethanol Screen None Detected None Detected [facility] Comment:This urine ethanol a ssay detects ethanol at concentrations >/= 100 mg/L. U Amphetamines Screen None Detected None Detected [facility] Comment: The amphetamine screen detects d-amphetamine and d-methamphetamine at concentrations >300 ng/mL. A ? Presumptive Positive? result indicates that the screening result was positive but has not yet been confirmed by a highly-specific method. As with any screen, occasional false positive results from cross-reacting substances may occur. Not for Medico-Legal Purposes. U Creat HEATHER 42 >=20 mg/dL [facility] U Chromate HEATHER <2.0 <=49.9 mg/L [facility] U Nitrite HEATHER <50 <=499 mg/L [facility] U Oxidant HEATHER 6 <=199 mg/L [facility] U pH HEATHER 6.0 3.0 - 10.9 [facility] U Adulterants Screen None Detected None Detected [facility] Comment:No adulteration of t his urine sample was detected. Urine 01/18/2023 10:1 3 PM EDT 01/18/2023 10:22 PM EDT Narrative Resulting Agency Comment Spec In Lab Kyle Mckeon MD CHEMISTRY ORDERABLES Performing Organization Address [facility] Co de Phone Number [facility] [place] [place] [address] * Rapid Drug Screen, Urine (HEATHER Request) (01/18/2023 10:13 PM EDT) HEATHER Conf Requested Yes [facility] HEATHER Requested See Comment [facility] Comment:Refer to Rapid Drug Screen w/ Confirmation, Urine for results. Urine 01/18/2023 10:1 3 PM EDT 01/18/2023 10:22 PM EDT Narrative Resulting Agency Comment Spec In Lab Tanya Seaman MD URINE ORDERABLES Performing Organization Address [facility] Co de Phone Number [facility] [place] [address] * Creatinine, urine, random (01/18/2023 10:13 PM EDT) U Creatinine 41 mg/dL [facility] Urine 01/18/2023 10:1 3 PM EDT 01/18/2023 10:22 PM EDT Narrative Resulting Agency Comment Spec In Lab Tanya Seaman MD URINE ORDERABLES Performing Organization Address [facility] Co de Phone Number [facility] [place] [address] * Urea nitrogen, urine, random (01/18/2023 10:13 PM EDT) U Urea Nitrogen 251 mg/dL [facility] Urine 01/18/2023 10:1 3 PM EDT 01/18/2023 10:22 PM EDT Narrative Resulting Agency Comment Spec In Lab Tanya Seaman MD URINE ORDERABLES [facility] [place] [address] * (ABNORMAL) Urinalysis with reflex Culture (01/18/2023 10:13 PM EDT) Glucose UA Negative Negative mg/dL [facility] Protein UA >=300(A) Negative mg/dL [facility] Bilirubin UA Negative Negative mg/dL [facility] Comment: Clinical correlation required for positive Urine Bilirubin results as false positive may occur with some drugs and drug related products. If a false positive is suspected a serum total bilirubin should be considered if clinically indicated. Urobilinogen UA Normal Normal mg/dL M [facility] pH UA 6.5 5.0 - 8.0 [facility] Blood UA Large(A) Negative mg/dL [facility] Ketones UA Negative Negative mg/dL [facility] Nitrite UA Negative Negative [facility] Leukocytes UA Small(A) Negative [facility] Appearance UA Cloudy(A) Clear [facility] Spec [place] UA 1.010 1.005 - 1.030 [facility] Color UA Red(A) Yellow [facility] Culture Reflexed Yes [facility] Indwelling Catheter Urine 01/18/2023 10:13 PM EDT 01/18/2023 10:22 PM EDT Narrative Resulting Agency Comment Spec In Lab Tanya Seaman MD URINE ORDERABLES Performing Organization Address City/[facility]/ZIP Co de Phone Number [facility] [place] [address] * Lactate, whole blood, send to lab [place] (01/18/2023 7:46 PM EDT) Lactate WB 1.6 0.5 - 2.2 mmol/L [facility] Blood 01/18/2023 7:46 PM EDT 01/18/2023 7:51 PM EDT Narrative Resulting Agency Comment Spec In Lab Tanya Seaman MD CHEMISTRY ORDERABL ES [facility] [place] [address] * (ABNORMAL) Differential, Automated (01/18/2023 7:16 PM EDT) Neutrophils % 80.9 % [facility] Neutr Abs (ANC) 5.86 1.70 - 6.10 x10(3)/mc L [facility] Lymphocytes % 9.7 % [facility] Lymphocytes Abs 0.7(L) 0.9 - 3.2 x10(3)/mc L [facility] Monocytes % 5.9 % [facility] Monocyte Abs 0.4 0.3 - 0.9 x10(3)/mc L [facility] Eosinophils % 2.6 % [facility] Eosinophils Abs 0.2 0.0 - 0.4 x10(3)/mc L [facility] Basophils % 0.6 % [facility] Basophils Abs 0.0 0.0 - 0.1 x10(3)/mc L [facility] Immature Gran % 0.30 % [facility] Comment: Immature granulocytes(IG's)percentage and absolute count will include metamyelocytes, myelocytes, and promyelocytes. Blood smears from CBCs yielding IG's will be scanned manually for concordance. If this scan disagrees with the automated IG or if promyelocytes are noted, a manual differential will be performed. Angelica Gran Abs 0.02 0.00 - 0.04 x10(3)/mc L [facility] Blood 01/18/2023 7:16 PM EDT 01/18/2023 7:27 PM EDT Narrative Resulting Agency Comment Spec In Lab Kyle Mckeon MD HEMATOLOGY ORDERABLE S [facility] [place] [address] * (ABNORMAL) Hemogram (01/18/2023 7:16 PM EDT) WBC 7.2 4.0 - 9.5 x10(3)/[facility] RBC 3.24(L) 4.58 - 5.54 x10(6)/[facility] Hemoglobin 10.1(L) 13.7 - 16.5 g/dL [facility] Hematocrit 30.1(L) 40.5 - 48.5 % [facility] MCV 92.9 82.9 - 93.[address] [facility] MCH 31.2 27.5 - 32.[address] [facility] MCHC 33.6 32.0 - 35.7 g/dL [facility] Platelets 183 145 - 357 x10(3)/[facility] RDWSD 44.4 36.0 - 45.0 [facility] RDWCV 13.2 11.4 - 13.8 % [facility] MPV 11.9 7.6 - 12.9 [facility] nRBC % Auto 0.0 % [facility] nRBC Abs Auto 0.000 0.000 - 0.000 x10(3)/[facility] Blood 01/18/2023 7:16 PM EDT 01/18/2023 7:27 PM EDT Narrative Resulting Agency Comment Spec In Lab Kyle Mckeon MD HEMATOLOGY ORDERABLE S [facility] [place] [address] * (ABNORMAL) pro-Brain Natriuretic Peptide (01/18/2023 7:16 PM EDT) ProBNP 11,818(H) <=124 pg/mL [facility] Blood 01/18/2023 7:16 PM EDT 01/18/2023 7:27 PM EDT Narrative Resulting Agency Comment Spec In Lab Tanya Seaman MD CHEMISTRY ORDERABL ES [facility] [place] [address] * (ABNORMAL) Troponin (01/18/2023 7:16 PM EDT) Troponin-T HS 78(H) <=22 ng/L [facility] Comment: This patient's troponin T [...] [facility] Test Catalog Reference: Fourth Duchesne Definition of Myocardial Infarction. Journal of the [place] 2018;72:4256-3753 Blood 01/18/2023 7:16 PM EDT 01/18/2023 7:27 PM EDT Narrative Resulting Agency Comment Spec In Lab Tanya Seaman MD CHEMISTRY ORDERABL ES [facility] [place] [address] * (ABNORMAL) Comprehensive metabolic panel (non-fasting) (01/18/2023 7:16 PM EDT) Glucose Lvl 76 65 - 199 mg/dL [facility] Comment:Diabetes: >=200 mg/d L plus symptoms BUN 60(H) 10 - 20 mg/dL [facility] Creatinine 5.71(H) 0.80 - 1.50 mg/dL [facility] Sodium 144 135 - 145 mmol/L [facility] Potassium 4.6 3.5 - 5.0 mmol/L [facility] Comment: Please note: ??Patients with WBC >100,000 may have falsely elevated Potassium levels. ??For accurate Potassium quantification in these patients send serum separator tube (gold top) for subsequent determinations. ??Contact the Clinical Chemistry Laboratory if there are any questions. Chloride 109(H) 98 - 107 mmol/L [facility] CO2 21(L) 22 - 31 mmol/L [facility] Anion Gap 14 5 - 15 mmol/L [facility] Calcium 9.3 8.5 - 10.5 mg/dL [facility] Total Protein 7.2 6.1 - 8.0 g/dL [facility] Albumin 4.2 3.2 - 5.2 g/dL [facility] AST 12 0 - 39 unit/L [facility] ALT 12 0 - 55 unit/L [facility] Alk Phos 95 40 - 130 unit/L [facility] Total Bilirubin 0.7 0.2 - 1.3 mg/dL [facility] Estimated GFR 10(L) >=60 mL/min/1. 73 m?? [facility] Comment: This patient's estimated GFR [...] MD CHEMISTRY ORDERABL ES Performing Organization Address [facility] Co de Phone Number [facility] [place] [address] * EKG 12 Lead (01/18/2023 6:52 PM EDT) Ventricular rate 69 BPM MUSE SYSTEM Atrial Rate 69 BPM MUSE SYSTEM P-R Interval 212 ms MUSE SYSTEM QRS Duration 126 ms MUSE SYSTEM Q-T Interval 432 ms MUSE SYSTEM QTC Calculated (Bezet) 462 ms MUSE SYSTEM Calculated P Randolph 46 degrees MUSE SYSTEM Calculated R Randolph -37 degrees MUSE SYSTEM Calculated T Randolph 101 degrees MUSE SYSTEM INTERPRETATION Sinus rhythm with 1st degree A-V block Left axis deviation Non-specific intra-ventricul ar conduction block Possible Lateral infarct , age undetermined Abnormal ECG No previous ECGs available Confirmed by Tessa Saldivar ([id number]) on 01/19/2023 9:21:20 AM MUSE SYSTEM 01/18/2023 6:52 PM EDT 01/19/2023 9:21 AM EDT Tanya Seaman MD ECG ORDERABLES Performing Organization Address City/[facility]/ZIP Co de Phone Number MUSE SYSTEM documented [...] Routine documented in this encounter Care Teams Button Reclaimer Relationship Specialty Start Date End Date Reinier Arceo PA [address] [place] [address] PCP - General Internal Medicine 01/18/23 documented as of this encounter
--- OUTSIDE RECORDS SUMMARY | 2024-01-27 20:57 | XMS_ITS | Encounter Summary ---
Author Organization [facility] [place] [address] Care Team Providers Care Rug Sizer Name Role Phone Von Miles MD Primary Care Provider [phone] Reason for Visit * Reason Comments Follow-up Encounter Details Date Type Department Care Team (Late st Contact Info) Description 01/02/2014 1:45 PM EDT Office Visit Dermatology at [address] [phone] Sixto Doty MD [address] [facility] [place] [address] Neurodermatitis (Primary Dx) Social History [...] for his mother who is in a half-way, the [employer] [place] in [place], and there is a monthly bill of $2000 due, which her estate is barely able to cover, and he is getting [place] Medicaid payments to help cover this. However, the checks are usually late, and he feels pressured by staff at [facility] to make the payments when he [...] 10:00 AM EDT [place] [address] Austin Simon MD [facility] [place] [address] Lindy Box APRN [facility] [place] [address] documented as of this encounter Visit Diagnoses Diagnosis Neurodermatitis- Primary Lichenification and lichen simplex chronicus documented in this encounter Care Teams Rug Sizer Relationship Specialty Start Date End Date Von Miles MD [address] [place] [address] [place] [address] PCP - General 12/04/13 04/17/14 documented as of this encounter
--- OUTSIDE RECORDS SUMMARY | 2024-01-27 20:57 | XMS_ITS | Clinical Summary ---
Author Organization [facility] Address [address] [place] [address] Care Team Providers Care Venetian Blind Assembler Name Role Phone Casimiro Perez MD Primary Care Provider Nahed rubiole Encounters Date Type Department Care Team Description 01/20/2024 Lab Requisition [facility] Pathology & Laboratory Medicine - [facility] [address] [place] [address] Reinier Arceo RPA Chronic combined systolic (congestive) [...] explore management options, if applicable. 01/21/2024 15:06 [facility] Final Diagnosis A. SKIN OF BACK, MIDLINE, PUNCH BIOPSY: - Epidermal ulceration with sparse superficial dermal inflammation. See comment. 01/21/2024 15:06 [facility] Diagnosis Comment Numerous sections [...] the lack of intact epidermis. 01/21/2024 15:06 [facility] Attestation By the signature below, the attending physician certifies that they have 1) personally conducted a gross and/or microscopic examination of the described specimen(s), and/or personally interpreted the results of laboratory testing of the described specimen(s), and 2) personally rendered or confirmed the above diagnosis. 01/21/2024 15:06 [facility] at 1506 Microscopic Description Sections [...] No scabies organisms are identified. 01/21/2024 15:06 [facility] Clinical History Unknown dermatitis, macular papular rash with generalized urticaria; clinical diagnosis code: L20.9 01/21/2024 15:06 [facility] Gross Description A. Received in formalin labelled with proper patient identification (initials C, K) and M back is a punch biopsy of canales skin (0.3 cm in diameter by 0.6 cm in depth). The specimen is submitted intact in A1. ELSIE VANESSA(ASCP) 01/20/2024 9:31 01/21/2024 15:06 EDT [facility] Performing Lab [facility] 01/21/2024 15:06 EDT [facility] Scanned Images 01/21/2024 15:06 EDT [facility] Tissue SPECIMEN FROM SKIN / Unknown 01/19/2024 14:00 EDT 01/20/2024 8:26 EDT Reinier Arceo [facility] PATHOLOGY ORDERAB LES [facility] [address] [place] [address] from Last 3 Months Care Teams Venetian Blind Assembler Relationship Specialty Start Date End Date Casimiro Perez MD PCP - General 05/03/15
--- OUTSIDE RECORDS SUMMARY | 2024-01-27 20:57 | XMS_ITS | Encounter Summary ---
Author Organization [facility] [place] [address] Care Team Providers Care Bowling Ball Molder Name Role Phone Reina Alcala APRN Primary Care Provider [phone] Reason for Visit * Reason Comments Follow-up Encounter Details Date Type Department Care Team ([facility] st Contact Info) Description 05/22/2014 1:30 PM EST Office Visit Dermatology at [place] [address] [facility] [place] [address] Sixto Doty MD [address], [place] [address] Neurodermatitis Discharge Disposition: Home Social History Tobacco Use Types Packs/Day Years Used Date Smoking Tobacco: Never Sex and Gender Information Value Date Recorded Sex Assigned at Not on file Gender Identity Not on file Sexual Orientation Not on file documented as of this encounter Patient Instructions * Patient Instructions* Sarai Acosta LPN - 05/22/2014 1:14 PM EST [facility] Psoriasis: After Your Visit Your Care Instructions Psoriasis (say [id number]-WX-qg-ruel) is a long-term skin problem that causes [...] still damp. This seals in moisture. Use [id number] products that your doctor suggests. These may [...] more? Visit our health information library at [email or web address] You can also view health information on [employer], your personal patient account. Log in or sign up today. Enter [id number] in the search box to learn more about Psoriasis: After Your Visit. ?? [id number] [employer]. Care instructions adapted under license by [facility]. This care instruction is for use with your licensed healthcare professional. If you have questions about a medical condition or this instruction, always ask your healthcare professional. [employer] disclaims any warranty or liability for your use of this information. Content Version: [id number]; Last Revised: January 31, 2013 documented in [...] 10:00 AM EDT [place] [address] Austin Simon MD [facility] [place] [address] Lindy Box APRN [facility] [place] [address] documented as of this encounter Visit Diagnoses Diagnosis Neurodermatitis Lichenification and lichen simplex chronicus documented in this encounter Care Teams Bowling Ball Molder Relationship Specialty Start Date End Date Reina Alcala APRN [address] [place] [address] [place] [address] PCP - General 04/18/14 01/17/23 documented as of this encounter
--- OUTSIDE RECORDS SUMMARY | 2024-01-27 20:57 | XMS_ITS | Encounter Summary ---
Author Organization [facility] Address [address] [place] [address] Care Team Providers Care Individual Pension Consultant Name Role Phone Casimiro Perez MD Primary Care Provider Nahed montes de oca Encounter Details Date Type Department Care Team (Late st Contact Info) Description 02/10/2023 Lab Requisition [facility] Pathology & Laboratory Medicine - [facility] [address] [place] [address] Outr Resulting Lab, Provider Social History Tobacco [...] 873 See Note mg/dL 02/10/2023 22:35 EDT [facility] Comment: NOTE: Reference range has not been established for urea nitrogen concentration in random urine specimens. Urine URINE / Unknown 02/10/2023 1 1:53 EDT 02/10/2023 21:55 EDT Provider Outr Resulting Lab URINALYSIS O RDERABLES [facility] [address] [place] [address] documented in this encounter Visit Diagnoses Not on filedocumented in this encounter Care Teams Individual Pension Consultant Relationship Specialty Start Date End Date Casimiro Perez MD PCP - General 05/03/15 documented as of this encounter
--- OUTSIDE RECORDS SUMMARY | 2024-01-27 20:57 | XMS_ITS | Encounter Summary ---
Author Organization Formerly [facility] [place] [address] Care Team Providers Care Deputy Chief Executive Name Role Phone Reinier Arceo Primary Care Provider [phone] Reason for Visit * Auth/Cert (Routine) Specialty Diagnoses / Procedures Referred By Fady t Referred To Contact Diagnoses Heart failure CHF w/ CLEM Procedures EMERGENCY FERI Tanya Seaman MD [facility] [place] [address] [place] [address] [facility] Referral ID Status Reason Start Date Expiration Date Visits Re quested Visits Authorized [id number] 1 1 Encounter Details Date Type Department Care Team (Late st Contact Info) Description 01/22/2023 1:00 PM EDT - 01/22/2023 2:00 PM EDT [place] [address] Layton Morris MD [facility] [place] [address] [place] [address] CARDIAC CATHETERIZATION Social History Tobacco Use Types [...] 2020), diabetes, hypertension,and hyperlipidemia who presents from [facility] ED after being redirected from [facility] urgent clinic for one month [...] getting progressively worse he went to the [facility] urgent clinic in [place], [place] and was subsequently transferred to [facility] ED for further management. Upon initial presentation to [facility] ED: The patient was noted to be [...] reportedly 40 mg PO) and transferred to [facility] for management of presumed acute on chronic HFrEF and CLEM. Upon direct admission to [facility]: The patient was noted to be afebrile [...] diffuse hypokinesis. CXR pending. Hospital Course: Miguel Sancehz was admitted to the Cardiology Service on [...] Patient was started on GDMT with metoprolol [id number] mg daily and losartan 25 mg daily. [...] he does have capacity. Spoke with his welfare case worker Randa Gonzalez prior to discharge who was [...] Time Provider Department Center 01/28/2023 1:00 PM [facility] ROOM 4 [facility] Rad Your Inpatient Doctor: Mendel Luna MD Your Primary Care Provider: ELSIE Espinoza [phone] For questions regarding this document or issues relating to this hospitalization on the Medical Service, please contact your inpatient physician through the [facility] Stone Setter . Issues afterhours and on weekends will be handled by the Hospitalist staff on-call. General Instructions None Future Appointments and Orders Future Appointments and Orders Future Appointments Provider Department Dept Phone 01/28/2023 1:00 PM [facility] US ROOM 4 Ultrasound at [facility] Arrive at: Meter Shop Superintendent Area [phone] Please bring someone to drive you home. [...] Sanchez for admission to Home Health. [address] [address] Phone Number: [phone] (home) Date of : 1955 Inpatient DOCUMENTATION FOR VNA SERVICES (INCLUDING THOSE PATIENTS WITH MEDICARE COVERAGE REQUIRING HOME VNA SERVICES AND/OR HOSPICE SERVICES) PATIENT'S LOCATION: Miguel Sanchez [address] [address] [phone] (home) Cell: Telephone Information: Staff Auditor's Name: self In discussion with the attending physician, it is certified that this patient is under their care and that they, or a Nurse Practitioner, Clinical Nurse specialist or Physician Test Technician who is working directly with them, had [...] manage benedict catheter HOME HEALTH CARE AGENCY: [facility]. [address] [place] [address] Start of care: 24-48 hours after discharge [...] patient's PCP: ELSIE Espinoza DR [address] / [facility] [address] . All VNA agencies which cover the area of patient's residence have been reviewed, either verbally or in writing, and patient/family have chosen the home health care agency noted. Questions: Disciplines Requested: Nursing Referral to Urology [[id number] Custom] As directed Process Instructions: If no progress note charted, please enter Clinical details in comments. Scheduling Instructions: Questions: My question or request is: 67 yo M admitted 01/18-01/26 w/ renal failure due to obstruction, discharged w/ benedict. Provider Contact Information: ELSIE Espinoza [address] / [facility] [address] Discharge References/Attachments: Discharge References/Attachments None documented in [...] Time Provider Department Center 01/28/2023 1:00 PM [facility] ROOM 4 [facility] Rad Your PCP office will contact you about scheduling follow up. Your Inpatient Doctor: Mendel Luna MD Your Primary Care Provider: ELSIE Espinoza [phone] For questions regarding this document or issues relating to this hospitalization on the Medical Service, please contact your inpatient physician through the [facility] Stone Setter . Issues afterhours and on weekends will be handled by the Hospitalist staff on-call. * Attachments The following attachments cannot be sent through Care Everywhere. * Caregiver: Caring for an Indwelling Urinary Catheter: General Info (Nepalese) documented in this encounter Medications at Time [...] discharge to home with a ride from [facility]. * Tati Schultz - 01/27/2023 3:43 PM EDTSummary: Transportation Transportation for discharge was scheduled and confirmed through [facility]. [facility] will have a helper driver at the Main Entrance at 4:15p today to provide patient with transportation home. * Camille Shelley RD - 01/27/2023 12:42 PM EDT Nutrition Progress Note Miguel Sanchez is a 67 y.o. male with PMH significant for HFrEF (last known EF 45% in 2020), diabetes, hypertension, and hyperlipidemia who presents from [facility] ED after being redirected from [facility] urgent clinic for one month [...] Marii Serrano - 01/27/2023 11:42 AM EDT Nuclear Scientist Encounter Note Patient Name: Miguel Sanchez : [id number] MR#: [id number] Admit Date: 01/18/2023 5:25 PM Hospital Day [...] AM EDT Hypertension-Nephrology Inpatient Follow-up Miguel Sanchez [id number] 1955 ID: 67 y.o. old male seen [...] SPEP shows possible paraprotein however DOROTEO negative. [place] & Lambda light chains elevated however ratio [...] TID This case was discussed with staff environmental services technician Dr. Crawford and the primary team. Please contact me at phone: [phone] or pager: [phone] with any questions. Deonte Lugo MD Nephrology [...] Marii Serrano - 01/26/2023 3:59 PM EDT Nuclear Scientist Encounter Note Patient Name: Miguel Sanchez DOB: [id number] MR#: [id number] Admit Date: 01/18/2023 5:25 PM Hospital Day [...] 1955 PCP: ELSIE Espinoza PCP phone number: [phone] Date of Admission: 01/18/2023 ( Hospital Day 8 days ) Attending:Mendel Luna MD ID: Miguel Sanchez is a 67 y.o. male with PMH significant for HFrEF (last known EF 45% in 2020), diabetes, hypertension, and hyperlipidemia who presents from [facility] ED after being redirected from [facility] urgent clinic for one month [...] Gas) No results found for: PHART, PO2ART, [id number], [id number] Microbiology: Microbiology Results (Last 30 days) Procedure Component Value Units Date/Time Urine culture [[id number]] Collected: 01/18/232212 Lab Status: Final result Specimen: [...] bladder.. Electronically signed by: Jimmie العراقي MD, [facility] ([phone]), at 01/19/2023 8:39 AM Thank you for letting us participate in the care of this patient. If you are a health care provider and have any questions regarding this report, please contact the number above. For patients who have questions, please contact the health geriatric personal care aide that requested your imaging first. Jimmie العراقي, [...] who have questions, please contact the health geriatric personal care aide that requested your imaging first. Elsie Garza, [facility] Student Assistance Counselor Electronically Signed Final Report 01/25/2023 04:10 pm [...] diabetes, hypertension, and hyperlipidemia who presents from [facility] ED after being redirected from [facility] urgent clinic for one month [...] PPx: Diet: Daily Healthy Menu Choices/Cardiac diet ([facility]-Diet) Lines: Peripheral IV Line - Single Lumen [...] Yousif MSW - 01/26/2023 2:43 PM EDT PRODUCT MANAGEMENT ANALYST received a consult to support patient regarding concern of not getting his rent paid on time, which is typically due on the 1st of every month. PRODUCT MANAGEMENT ANALYST called patient's property management company, [email or web address], and spoke to one of the composite boat builder's, Meri, who stated they have a crow period forpaying rent late and are flexible with this kind of stuff. Meri also mentioned patient had spoken with one of her colleagues recently and asked if they could drive down to the hospital to grabthe check. PRODUCT MANAGEMENT ANALYST checked with patient to see if he has the check, to which he responded no. Patient to be discharged tomorrow. * Deonte Lugo MD - 01/26/2023 7:51 AM EDT Hypertension-Nephrology Inpatient Follow-up Miguel Sanchez [id number] 1955 ID: 67 y.o. old male seen [...] SPEP shows possible paraprotein however DOROTEO negative. [place] & Lambda light chains elevated however ratio [...] daily This case was discussed with staff environmental services technician Dr. Crawford and the primary team. Please contact me at phone: [phone] or pager: [phone] with any questions. Deonte Lugo MD Nephrology [...] AM EDT Hypertension-Nephrology Inpatient Follow-up Miguel Sanchez [id number] 1955 ID: 67 y.o. old male seen [...] SPEP shows possible paraprotein however DOROTEO negative. [place] & Lambda light chains elevated however ratio [...] daily This case was discussed with staff environmental services technician Dr. Crawford. Please contact me at phone: [phone] or pager: [phone] with any questions. Deonte Lugo MD Nephrology [...] and volume overload resolving. David calhoun need skilled nursing diuretics to maintain fluid balance. Please obtain repeat renal US and schedule for renal clinic follow up with Dr Lugo in 2 weeks. * Kendy Montes MD - 01/25/2023 6:05 AM EDT Images from the original note were not included. Cardiology Progress Note Patient info: Name: Miguel Sanchez : 1955 PCP: ELSIE Espinoza PCP phone number: [phone] Date of Admission: 01/18/2023 ( Hospital Day 7 days ) Attending:Mendel Luna MD ID: Miguel Sanchez is a 67 y.o. male with PMH significant for HFrEF (last known EF 45% in 2020), diabetes, hypertension, and hyperlipidemia who presents from [facility] ED after being redirected from [facility] urgent clinic for one month [...] Gas) No results found for: PHART, PO2ART, [id number], [id number] Microbiology: Microbiology Results (Last 30 days) Procedure Component Value Units Date/Time Urine culture [[id number]] Collected: 01/18/232212 Lab Status: Final result Specimen: [...] bladder.. Electronically signed by: Jimmie العراقي MD, [facility] ([phone]), at 01/19/2023 8:39 AM Thank you for letting us participate in the care of this patient. If you are a health care provider and have any questions regarding this report, please contact the number above. For patients who have questions, please contact the health geriatric personal care aide that requested your imaging first. Jimmie العراقي, [...] diabetes, hypertension, and hyperlipidemia who presents from [facility] ED after being redirected from [facility] urgent clinic for one month [...] AM EDT Hypertension-Nephrology Inpatient Follow-up Miguel Sanchez [id number] 1955 ID: 67 y.o. old male seen for CLEM. Interval History: Diuretics held again yesterday however continues to auto diurese. He clarified his living situationfor us and explains that he lives independently in low income housing and depends on rides to get to clinic appointments etc which is not always available. He follows very closely with a mental health clinic and has a director of social media marketing there who helps him. Physical Examination: Last [...] negative. SPEP shows possible paraprotein DOROTEO pending. [place] & Lambda light chains elevated however ratio [...] and from clinic visits and has a director of social media marketing whogenerally helps him with this. This is [...] deficiency. This case was discussed with staff environmental services technician Dr. Morrow. Please contact me at phone: [phone] or pager: [phone] with any questions. Deonte Lugo MD Nephrology [...] He does report having a mental health mate fishing vessel who may be of some assistance when discharge planning comes to play. * Kendy Montes MD - 01/24/2023 6:39 AM EDT Images from the original note were not included. Cardiology Progress Note Patient info: Name: Miguel Sanchez : 1955 PCP: ELSIE Espinoza PCP phone number: [phone] Date of Admission: 01/18/2023 ( Hospital Day 6 days ) Attending:Mendel Luna MD ID: Miguel Sanchez is a 67 y.o. male with PMH significant for HFrEF (last known EF 45% in 2019), diabetes, hypertension, and hyperlipidemia who presents from [facility] ED after being redirected from [facility] urgent clinic for one month [...] Gas) No results found for: PHART, PO2ART, NEI6WOC, [id number] Microbiology: Microbiology Results (Last 30 days) Procedure Component Value Units Date/Time Urine culture [[id number]] Collected: 01/18/232212 Lab Status: Final result Specimen: [...] bladder.. Electronically signed by: Jimmie العراقي MD, [facility] ([phone]), at 01/19/2023 8:39 AM Thank you for letting us participate in the care of this patient. If you are a health care provider and have any questions regarding this report, please contact the number above. For patients who have questions, please contact the health geriatric personal care aide that requested your imaging first. Jimmie العراقي, [...] diabetes, hypertension, and hyperlipidemia who presents from [facility] ED after being redirected from [facility] urgent clinic for one month [...] AM EDT Hypertension-Nephrology Inpatient Follow-up Miguel Sanchez [id number] 1955 ID: 67 y.o. old male seen [...] negative. SPEP shows possible paraprotein DOROTEO pending. [place] & Lambda light chains elevated however ratio [...] and voiding trial - Please start ergocalciferol [id number] U weekly This case was discussed with staff environmental services technician Dr. Morrow. Please contact me at phone: [phone] or pager: [phone] with any questions. Deonte Lugo MD Nephrology [...] 1955 PCP: ELSIE Espinoza PCP phone number: [phone] Date of Admission: 01/18/2023 ( Hospital Day 5 days ) Attending:Mendel Luna MD ID: Miguel Sanchez is a 67 y.o. male with PMH significant for HFrEF (last known EF 45% in 2019), diabetes, hypertension, and hyperlipidemia who presents from [facility] ED after being redirected from [facility] urgent clinic for one month [...] Gas) No results found for: PHART, PO2ART, LIP5BOK, [id number] Microbiology: Microbiology Results (Last 30 days) Procedure Component Value Units Date/Time Urine culture [[id number]] Collected: 01/18/232212 Lab Status: Final result Specimen: [...] bladder.. Electronically signed by: Jimmie العراقي MD, [facility] ([phone]), at 01/19/2023 8:39 AM Thank you for letting us participate in the care of this patient. If you are a health care provider and have any questions regarding this report, please contact the number above. For patients who have questions, please contact the health geriatric personal care aide that requested your imaging first. Jimmie العراقي, [...] diabetes, hypertension, and hyperlipidemia who presents from [facility] ED after being redirected from [facility] urgent clinic for one month [...] diabetes, hypertension, and hyperlipidemia who presents from [facility] ED after being redirected from [facility] urgent clinic for one month [...] diabetes, hypertension, and hyperlipidemia who presents from [facility] ED after being redirected from [facility] urgent clinic for one month [...] transportation for shopping and errands and his welfare case worker visits once a week. Pt does not [...] Consistently following commands ADL: Assist needed to don/[facility] gown d/t lines Toileting: provided pt with [...] Therapy: 30 (SCHM x 2; 9:56-10:26) Pager: [phone] Sushma Hernandez OT Occupational Therapy Rehabilitation Department * Deonte Lugo MD - 01/22/2023 7:46 AM EDT Hypertension-Nephrology Inpatient Follow-up Miguel Sanchez [id number] 1955 ID: 67 y.o. old male seen [...] negative. SPEP shows possible paraprotein DOROTEO pending. [place] & Lambda light chains elevated however ratio [...] primaryteam. This case was discussed with staff environmental services technician Dr. Morrow. Please contact me at phone: [phone] or pager: [phone] with any questions. Deonte Lugo MD Nephrology [...] 1955 PCP: ELSIE Espinoza PCP phone number: [phone] Date of Admission: 01/18/2023 ( Hospital Day 4 days ) Attending:Mendel Luna MD ID: Miguel Sanchez is a 67 y.o. male with PMH significant for HFrEF (last known EF 45% in 2019), diabetes, hypertension, and hyperlipidemia who presents from [facility] ED after being redirected from [facility] urgent clinic for one month of progressively worsening shortness of breath and associated chest pain occurring both at rest and on exertion with concern for HFrEF exacerbation and CLEM. Active Problems: Active Hospital Problems Diagnosis Heart failure Resolved Hospital Problems No resolved problems to display. 24 Hour and Subjective: Yesterday: -Holding diuresis. Was going to [facility] but got bumped so plan for tomorrow. [...] Gas) No results found for: PHART, PO2ART, QNT6PWQ, ZXT3WHL Microbiology: Microbiology Results (Last 30 days) Procedure Component Value Units Date/Time Urine culture [[id number]] Collected: 01/18/232212 Lab Status: Final result Specimen: [...] bladder.. Electronically signed by: Jimmie العراقي MD, [facility] ([phone]), at 01/19/2023 8:39 AM Thank you for letting us participate in the care of this patient. If you are a health care provider and have any questions regarding this report, please contact the number above. For patients who have questions, please contact the health geriatric personal care aide that requested your imaging first. Jimmie العراقي, [...] diabetes, hypertension, and hyperlipidemia who presents from [facility] ED after being redirected from [facility] urgent clinic for one month [...] diabetes, hypertension, and hyperlipidemia who presents from [facility] ED after being redirected from [facility] urgent clinic for one month [...] alone in a single level apartment in [place], [place] Bathroom Set-up: Tub-shower with a shower [...] Code: Gait x1 Sera Mancera, LORA Pager: [phone] Physical Therapy Inpatient Rehabilitation Department * Deonte Lugo MD - 01/21/2023 7:44 AM EDT Hypertension-Nephrology Inpatient Follow-up Miguel Sanchez [id number] 1955 ID: 67 y.o. old male seen [...] being This case was discussed with staff environmental services technician Dr. Morrow. Please contact me at phone: [phone] or pager: [phone] with any questions. Deonte Lugo MD Nephrology [...] 1955 PCP: ELSIE Espinoza PCP phone number: [phone] Date of Admission: 01/18/2023 ( Hospital Day 3 days ) Attending:Chris Lim MD ID: Miguel Sanchez is a 67 y.o. male with PMH significant for HFrEF (last known EF 45% in 2020), diabetes, hypertension, and hyperlipidemia who presents from [facility] ED after being redirected from [facility] urgent clinic for one month [...] Gas) No results found for: PHART, PO2ART, TPB4DOO, YVW4DSV Microbiology: Microbiology Results (Last 30 days) Procedure Component Value Units Date/Time Urine culture [[id number]] Collected: 01/18/232212 Lab Status: Final result Specimen: [...] bladder.. Electronically signed by: Jimmie العراقي MD, [facility] ([phone]), at 01/19/2023 8:39 AM Thank you for letting us participate in the care of this patient. If you are a health care provider and have any questions regarding this report, please contact the number above. For patients who have questions, please contact the health geriatric personal care aide that requested your imaging first. Jimmie العراقي, [...] diabetes, hypertension, and hyperlipidemia who presents from [facility] ED after being redirected from [facility] urgent clinic for one month [...] AM EDT Hypertension-Nephrology Inpatient Follow-up Miguel Sanchez [id number] 1955 ID: 67 y.o. old male seen [...] serologies This case was discussed with staff environmental services technician Dr. Morrow and the patient's primary team. Please contact me at phone: [phone] or pager: [phone] with any questions. Deonte Lugo MD Nephrology [...] Reina Alcala APRN (Inactive) PCP phone number: [phone] Date of Admission: 01/18/2023 ( Hospital Day 2 days ) Attending:Chris Lim MD ID: Miguel Sanchez is a 67 y.o. male with PMH significant for HFrEF (last known EF 45% in 2019), diabetes, hypertension, and hyperlipidemia who presents from [facility] ED after being redirected from [facility] urgent clinic for one month [...] Gas) No results found for: PHART, PO2ART, GTP5GUO, VVY0YZG Microbiology: Microbiology Results (Last 30 days) Procedure Component Value Units Date/Time Urine culture [[id number]] Collected: 01/18/232212 Lab Status: Final result Specimen: [...] bladder.. Electronically signed by: Jimmie العراقي MD, [facility] ([phone]), at 01/19/2023 8:39 AM Thank you for letting us participate in the care of this patient. If you are a health care provider and have any questions regarding this report, please contact the number above. For patients who have questions, please contact the health geriatric personal care aide that requested your imaging first. Jimmie العراقي, [...] diabetes, hypertension, and hyperlipidemia who presents from [facility] ED after being redirected from [facility] urgent clinic for one month [...] PM EDTSummary: Advance Directive Patient completed a [place] Advance Directive. Patient identified his sister Mony as his health care agent. * Sera Mancera, PT - 01/19/2023 11:00 AM EDT Physical Therapy evaluation Patient profile: Miguel Sanchez is a 67 y.o. male with PMH significant for HFrEF (last known EF 45% in 2020), diabetes, hypertension, and hyperlipidemia who presents from [facility] ED after being redirected from [facility] urgent clinic for one month of progressively worsening shortness of breath and associated chest pain occurring both at rest and on exertion. Social History: Home set-up: Lives alone in a single level apartment in [place], [place] Bathroom Set-up: Tub-shower with a shower [...] Moderate Complexity Evaluation Sera Mancera, LORA Pager: [phone] Physical Therapy Inpatient Rehabilitation Department * Sushma Hernandez, OT - 01/19/2023 10:30 AM EDT Occupational Therapy Evaluation Patient profile: Miguel Sanchez is a 67 y.o. male with PMH significant for HFrEF (last known EF 45% in 2020), diabetes, hypertension, and hyperlipidemia who presents from [facility] ED after being redirected from [facility] clinic for one month [...] transportation for shopping and errands and his welfare case worker visits once a week. Pt does not [...] and measurable assessment of functional outcome. Pager: [phone] Sushma Hernandez OTR/L Occupational Therapy Rehabilitation Department * Marii Serrano - 01/19/2023 10:23 AM EDT Nuclear Scientist Encounter Note Patient Name: Miguel Sanchez : [id number] MR#: [id number] Admit Date: 01/18/2023 5:25 PM Hospital Day [...] Kevin Ashwin and doesn't believe in goingto Islam because he can protestant God in any place he is. Patient [...] sent to Office of Care Management ~ Shipfitter Helper. * Chris Lim MD - 01/19/2023 6:11 AM EDT Images from the original note were not included. Cardiology Progress Note Patient info: Name: Miguel Sanchez : 1955 PCP: Reina Alcala APRN (Inactive) PCP phone number: [phone] Date of Admission: 01/18/2023 ( Hospital Day 1 day ) Attending:Chris Lim MD ID: Miguel Sanchez is a 67 y.o. male with PMH significant for HFrEF (last known EF 45% in 2019), diabetes, hypertension, and hyperlipidemia who presents from [facility] ED after being redirected from [facility] urgent clinic for one month of progressively worsening shortness of breath and associated chest pain occurring both at rest and on exertion. Active Problems: Active Hospital Problems Diagnosis Heart failure Resolved Hospital Problems No resolved problems to display. 24 Hour and Subjective: Yesterday: - The patient was reassuringly afebrile and hemodynamically stable upon transfer to [facility]. Interestingly, initial exam did not demonstrate marked [...] Gas) No results found for: PHART, PO2ART, [id number], [id number] Microbiology: Microbiology Results (Last 30 days) No [...] bladder.. Electronically signed by: Jimmie العراقي MD, [facility] ([phone]), at 01/19/2023 8:39 AM Thank you for letting us participate in the care of this patient. If you are a health care provider and have any questions regarding this report, please contact the number above. For patients who have questions, please contact the health geriatric personal care aide that requested your imaging first. Jimmie العراقي, [...] diabetes, hypertension, and hyperlipidemia who presents from [facility] ED after being redirected from [facility] urgent clinic for one month [...] Medicine, PGY-1 Cardiology M1-S1, #3011 Cardiology M1-S2, #2016 01/19/2023, 10:56 AM Cardiology Staff Addendum Miguel [...] not included. Cardiology H&P Patient info: Name: Miugel Sanchez : 1955 PCP: Reina Alcala APRN (Inactive) PCP phone number: [phone] Date of Admission: 01/18/2023 ( Hospital Day 0 days ) Attending:Tanya Seaman MD ID: Miguel Sanchez is a 67 y.o. male with PMH significant for HFrEF (last known EF 45% in 2019), diabetes, hypertension, and hyperlipidemia who presents from [facility] ED after being redirected from [facility] urgent clinic for one month [...] getting progressively worse he went to the [facility] urgent clinic in [place], [place] and was subsequently transferred to [facility] ED for further management. Upon initial presentation to [facility] ED: The patient was noted to be [...] reportedly 40 mg PO) and transferred to [facility] for management of presumed acute on chronic HFrEF and CLEM. Upon direct admission to [facility]: The patient was noted to be afebrile [...] history: Reports living in an apartment in [place], [place] Reports his father as a result [...] diabetes, hypertension, and hyperlipidemia who presents from [facility] ED [facility] one month of progressively worsening shortness of breath and associated chest painoccurring both at rest and on exertion. The patient was reassuringly afebrile and hemodynamically stable upon transfer to [facility]. Interestingly, initial exam did not demonstrate marked [...] More than 30 minutes were spent in [id number] contact with patient and with arranging discharge [...] have to pay my rent, get two quality control lead's checks - one for rent and one [...] a catheter. Has daily auditory hallucinations of [employer] that he has lived with for [...] Only support is his mental health agency. [facility] - Randa Daniels (welfare case worker). Asa Deal is his provider. Problem List: [...] injection 7,500 Units 7,500 Units Subcutaneous Q[facility] Kendy Montes MD 7,500 Units at [...] rate, and normal rhythm Language: fluent in kazakh Mood: fine Affect: blunted and mood-congruent Thought [...] check on him, or see if his welfare case worker willcheck in on him tomorrow Please page psychiatry with additional questions Patient on IEA Status? IEA: NO, patient is not on IEA and does not have any psychiatric contraindication to discharge at the time of this assessment. Recommendations were communicated to primary merchandising team lead Kendy Montes MD. Maritza Awna MD Psychiatry, PGY-2 01/27/2023 Coding Determination 1. [...] [] Minimal - [] Minimal [] Straightforward 60274 [] Low [] Low [] Low [] Low 64239 [] Moderate [x] Moderate [] Moderate [] Moderate 58404 [x] High [] High [x] High [x] High 65933 Final Coding Determination: High Associated attestation - [...] CM). Keon Park MD Psychiatry Consultation Pager: [phone] * Plan of Care - Adrienne Calderon [...] diabetes, hypertension, and hyperlipidemia who presents from [facility] ED after being redirected from [facility] urgent clinic for one month [...] to: discuss discharge planning needs. provide the [facility], Office of Care Management letter from the Pulmonary Specialist pertaining to rehab referrals. provide a letter describing our affiliations within the [facility] and educate about their right to choose where referrals are sent. provide a list of Home Health Agencies / Durable Medical Equipment vendors which serve their preferred geographic area. provided patient with [facility] Star Quality Rating handout. They have requested referrals to: [facility] [employer]. [address] [place] [id number] Note routed to a Shipfitter Helper who will communicate referrals to facilities and [...] note were not included. [facility] [place] [address] CORONARY ANGIOGRAM AND PERCUTANEOUS CORONARY INTERVENTION REPORT Patient: Miguel Sanchez : 1955 MR number: [id number] Date of Service: 01/22/2023 Pharmacy Technician Trainee: Layton Morris MD Fellow: Mario Alberto Glasgow MD INDICATION: Miguel Sanchez is a 67 y.o. male with PMH significant for HFrEF (last known EF 45% in 2019), diabetes, hypertension, and hyperlipidemia who presents from [facility] ED after being redirected from [facility] urgent clinic for one month [...] goes to the bank and gets a dsp engineer's check and pays it. CM tried to call the bank and the customer needs to be present for them to release any funds. I tried to call the [employer] [facility]- but they were closed. CM also tried to call his welfare case worker Randa to see if she could help. Left message for her to call back. Will put in PRODUCT MANAGEMENT ANALYST consult to meet with him on Wednesday to follow up with the [employer] To see if theywould be able [...] PT/OT Recommendations Outpatient Agency/Support Group Needs: Other [facility]: Randa Gonzalez at [phone] (welfare case worker) Transportation: Medicaid transport- will need 24 hours [...] will need 24 hour notice to contact [place] t ransportation services prior to discharge. Social [...] GOAL OUTCOME EVALUATION: Ongoing * Plan of [facility], Jayson De La Cruz Jr., MD [...] Coon MD Urology PGY-2 Daytime Consult Pager #[phone] * Initial Assessments - Darryl Rodriguez RN - 01/19/2023 4:57 PM EDT Office of Care Management Initial Assessment Darryl Rodriguez RN reviewed record and discussed patient with Care Team. Source of Information: Team, bedside nurse, medical record, and Patient, Chart Review. Introduced self/reviewed role; services accepted. Admitted From: Transfer from another hospital Location: [facility] Reason for Hospitalization: Heart problems and kidney problems Covid Vaccination Status: 1st, 2nd & booster Last COVID test: na Past medical History: No past medical history on file. Hospitalizations Within the Past 30 Days: no previous admission in last 30 days Current Decision-Making Capacity: Self If AD's have not been completed the following surrogate would be surrogate decision maker per [place] surrogate decision making law. (Only good for 180 days) Any patient receiving care in [place] must abide by [place] law. The hierarchy for surrogate decision making [...] DME: none Home Address confirmed as: [address] [facility] [address] Social & Family Supports: All names listed below confirmed with patient as current and correct Extended Emergency Contact Information Primary Emergency Contact: Mony Abraham Mobile Relation: Sibling Current Care Provided by: self Provides Primary Care For: no one, unable/limited ability to care for self Caregiver if needed: none Quality of Family relationships: non-existent Community Resources being provided currently: outpatient psychiatric care ([facility]) Behavioral Health History: Schizophrenia unspecified; MMD recurrent unspecified; on Olanzapine 15mgQD per Miroslava Anguiano CM at [facility] Substance Use/Abuse confirmed: denies all [...] Yes ; Prescription Coverage: Yes Preferred Pharmacy: [id number] AT [address] [address] Status: Patient is a : No Primary [...] 7:38 AM EDT Hypertension-Nephrology Consultation Miguel Sanchez [id number] 1955 ID: Miguel Sanchez is 67 y.o. [...] labs. This case was discussed with staff environmental services technician Dr. Morrow and the patient's primary team. Please contact me at phone: [phone] or pager: [phone] with any questions. Deonte Lugo MD Nephrology [...] 10:00 AM EDT [place] [address] Austin Simon MD [facility] [place] [address] Lindy Box [address]N [facility] [place] [address] Scheduled Referrals Name Type Priority Associated Diagnoses [...] POC Glucose 159 65 - 199 mg/dL [facility] Comment: Supplemental ranges: <140 mg/dL before meals <180 mg/dL all other times of the day Blood 01/27/2023 12:1 8 PM EDT 01/27/2023 12:18 PM EDT Mendel Luna MD POINT OF CARE TEST O RDERABLES Performing Organization Address City/[facility]/ZIP Co de Phone Number [facility] [place] [address] * POCT Glucose (01/27/2023 7:58 AM EDT) POC Glucose 173 65 - 199 mg/dL [facility] Comment: Supplemental ranges: <140 mg/dL before meals <180 mg/dL all other times of the day Blood 01/27/2023 7:58 AM EDT 01/27/2023 7:58 AM EDT Mendel Luna MD POINT OF CARE TEST O RDERABLES [facility] [place] [address] * (ABNORMAL) Differential, Automated (01/27/2023 3:49 AM EDT) Neutrophils % 75.3 % [facility] Neutr Abs (ANC) 6.21(H) 1.70 - 6.10 x10(3)/[facility] Lymphocytes % 12.1 % [facility] Lymphocytes Abs 1.0 0.9 - 3.2 x10(3)/[facility] Monocytes % 8.6 % [facility] Monocyte Abs 0.7 0.3 - 0.9 x10(3)/[facility] Eosinophils % 2.9 % [facility] Eosinophils Abs 0.2 0.0 - 0.4 x10(3)/[facility] Basophils % 0.7 % [facility] Basophils Abs 0.1 0.0 - 0.1 x10(3)/[facility] Immature Gran % 0.40 % [facility] Comment: Immature granulocytes(IG's)percentage and absolute count will include metamyelocytes, myelocytes, and promyelocytes. Blood smears from CBCs yielding IG's will be scanned manually for concordance. If this scan disagrees with the automated IG or if promyelocytes are noted, a manual differential will be performed. Angelica Gran Abs 0.03 0.00 - 0.04 x10(3)/[facility] Blood 01/27/2023 3:49 AM EDT 01/27/2023 4:08 AM EDT Narrative Resulting Agency Comment Spec In Lab Kyle Mckeon MD HEMATOLOGY ORDERABLE S [facility] [place] [address] * (ABNORMAL) Hemogram (01/27/2023 3:49 AM EDT) WBC 8.2 4.0 - 9.5 x10(3)/[facility] RBC 3.45(L) 4.58 - 5.54 x10(6)/[facility] Hemoglobin 10.6(L) 13.7 - 16.5 g/dL [facility] Hematocrit 31.5(L) 40.5 - 48.5 % [facility] MCV 91.3 82.9 - 93.1 fL [facility] MCH 30.7 27.5 - 32.1 pg [facility] MCHC 33.7 32.0 - 35.7 g/dL [facility] Platelets 163 145 - 357 x10(3)/[facility]OR[facility]ORY RDWSD 42.7 36.0 - 45.0 [facility]ORY RDWCV 13.0 11.4 - 13.8 % [facility] MPV 12.8 7.6 - 12.9 [facility] nRBC % Auto 0.0 % [facility] nRBC Abs Auto 0.000 0.000 - 0.000 x10(3)/[facility] Blood 01/27/2023 3:49 AM EDT 01/27/2023 4:08 AM EDT Narrative Resulting Agency Comment Spec In Lab Kyle Mckeon MD HEMATOLOGY ORDERABLE S Performing Organization Address City/[facility]/[place] [address] * (ABNORMAL) Phosphorus (01/27/2023 3:49 AM EDT) Phosphorus 5.0(H) 2.5 - 4.5 mg/dL [facility] Blood 01/27/2023 3:49 AM EDT 01/27/2023 4:08 AM EDT Narrative Resulting Agency Comment Spec In Lab Tanya Seaman MD CHEMISTRY ORDERABL ES [facility] [place] [address] * Magnesium (01/27/2023 3:49 AM EDT) Pathologist [facility] Magnesium 0.97 0.69 - 1.07 mmol/L [facility] Blood 01/27/2023 3:49 AM EDT 01/27/2023 4:08 AM EDT Narrative Resulting Agency Comment Spec In Lab Tanya Seaman MD CHEMISTRY ORDERABL ES [facility] [place] [address] * (ABNORMAL) Basic Metabolic Panel (non-fasting) (01/27/2023 3:49 AM EDT) Pathologist [facility] Glucose Lvl 142 65 - 199 mg/dL [facility] Comment:Diabetes: >=200 mg/d L plus symptoms BUN 78(H) 10 - 20 mg/dL [facility] Creatinine 4.74(H) 0.80 - 1.50 mg/dL [facility] Sodium 137 135 - 145 mmol/L [facility] Potassium 4.8 3.5 - 5.0 mmol/L [facility] Comment: Please note: ??Patients with WBC >100,000 may have falsely elevated Potassium levels. ??For accurate Potassium quantification in these patients send serum separator tube (gold top) for subsequent determinations. ??Contact the Clinical Chemistry Laboratory if there are any questions. Chloride 107 98 - 107 mmol/L [facility] CO2 15(L) 22 - 31 mmol/L [facility] Anion Gap 15 5 - 15 mmol/L [facility] Calcium 9.4 8.5 - 10.5 mg/dL [facility] Estimated GFR 13(L) >=60 mL/min/1. 73 m?? [facility] [...] ORDERABL ES Performing Organization Address [facility] de Phone Number [facility] [place] [address] * (ABNORMAL) POCT Glucose (01/26/2023 8:20 PM EDT) POC Glucose 202(H) 65 - 199 mg/dL [facility] Comment: Supplemental ranges: <140 mg/dL before meals <180 mg/dL all other times of the day Blood 01/26/2023 8:20 PM EDT 01/26/2023 8:20 PM EDT Mendel Luna MD POINT OF CARE TEST O RDERABLES Performing Organization Address [facility] Co de Phone Number [facility] [place] [address] * POCT Glucose (01/26/2023 4:04 PM EDT) POC Glucose 152 65 - 199 mg/dL [facility] Comment: Supplemental ranges: <140 mg/dL before meals <180 mg/dL all other times of the day Blood 01/26/2023 4:04 PM EDT 01/26/2023 4:04 PM EDT Mendel Luna MD POINT OF CARE TEST O RDERAMARCY Performing Organization Address [facility] Co de Phone Number [facility] [place] [address] * POCT Glucose (01/26/2023 11:42 AM EDT) POC Glucose 175 65 - 199 mg/dL [facility] Comment: Supplemental ranges: <140 mg/dL before meals <180 mg/dL all other times of the day Blood 01/26/2023 11:4 2 AM EDT 01/26/2023 11:42 AM EDT Mendel Luna MD POINT OF CARE TEST O RDERABLES [facility] [place] [address] * POCT Glucose (01/26/2023 7:51 AM EDT) Pathologist [facility] POC Glucose 137 65 - 199 mg/dL [facility] Comment: Supplemental ranges: <140 mg/dL before meals <180 mg/dL all other times of the day Blood 01/26/2023 7:51 AM EDT 01/26/2023 7:51 AM EDT Mendel Luna MD POINT OF CARE TEST O RDERABLES [facility] [place] [address] * Differential, Automated (01/26/2023 3:11 AM EDT) Neutrophils % 71.1 % [facility] Neutr Abs (ANC) 5.94 1.70 - 6.10 x10(3)/[facility] Lymphocytes % 15.3 % [facility] Lymphocytes Abs 1.3 0.9 - 3.2 x10(3)/[facility] LAB[facility]ORY Monocytes % 8.9 % [facility] Monocyte Abs 0.7 0.3 - 0.9 x10(3)/[facility] Eosinophils % 3.6 % [facility] Eosinophils Abs 0.3 0.0 - 0.4 x10(3)/[facility] Basophils % 0.7 % [facility] Basophils Abs 0.1 0.0 - 0.1 x10(3)/[facility] Immature Gran % 0.40 % [facility] Comment: Immature granulocytes(IG's)percentage and absolute count will include metamyelocytes, myelocytes, and promyelocytes. Blood smears from CBCs yielding IG's will be scanned manually for concordance. If this scan disagrees with the automated IG or if promyelocytes are noted, a manual differential will be performed. Angelica Gran Abs 0.03 0.00 - 0.04 x10(3)/[facility] Blood 01/26/2023 3:11 AM EDT 01/26/2023 3:40 AM EDT Narrative Resulting Agency Comment Spec In Lab Kyle Mckeon MD HEMATOLOGY ORDERABLE S [facility] [place] [address] * (ABNORMAL) Hemogram (01/26/2023 3:11 AM EDT) WBC 8.4 4.0 - 9.5 x10(3)/[facility] LAB[facility]ORY RBC 3.25(L) 4.58 - 5.54 x10(6)/[facility] Hemoglobin 10.2(L) 13.7 - 16.5 g/dL [facility] Hematocrit 29.8(L) 40.5 - 48.5 % [facility] MCV 91.7 82.9 - 93.1 fL [facility] MCH 31.4 27.5 - 32.1 pg [facility] MCHC 34.2 32.0 - 35.7 g/dL [facility] Platelets 161 145 - 357 x10(3)/[facility] RDWSD 43.0 36.0 - 45.0 fL [facility] RDWCV 13.0 11.4 - 13.8 % [facility] MPV 13.0(H) 7.6 - 12.9 fL [facility] nRBC % Auto 0.0 % [facility] nRBC Abs Auto 0.000 0.000 - 0.000 x10(3)/mcL [facility] Blood 01/26/2023 3:11 AM EDT 01/26/2023 3:40 AM EDT Narrative Resulting Agency Comment Spec In Lab Kyle Mckeon MD HEMATOLOGY ORDERABLE S Performing Organization Address [facility] Co de Phone Number [facility] [place] [address] * (ABNORMAL) Phosphorus (01/26/2023 3:11 AM EDT) Phosphorus 4.6(H) 2.5 - 4.5 mg/dL [facility] Blood 01/26/2023 3:11 AM EDT 01/26/2023 3:39 AM EDT Narrative Resulting Agency Comment Spec In Lab Tanya Seaman MD CHEMISTRY ORDERABL ES Performing Organization Address [facility] Co de Phone Number [facility] [place] [address] * Magnesium (01/26/2023 3:11 AM EDT) Magnesium 0.97 0.69 - 1.07 mmol/L [facility] Blood 01/26/2023 3:11 AM EDT 01/26/2023 3:39 AM EDT Narrative Resulting Agency Comment Spec In Lab Tanya Seaman MD CHEMISTRY ORDERABL ES Performing Organization Address City/[facility]/ZIP Co de Phone Number [facility] [place] [address] * (ABNORMAL) Basic Metabolic Panel (non-fasting) (01/26/2023 3:11 AM EDT) Glucose Lvl 127 65 - 199 mg/dL [facility] Comment:Diabetes: >=200 mg/d L plus symptoms BUN 77(H) 10 - 20 mg/dL [facility] Creatinine 4.91(H) 0.80 - 1.50 mg/dL [facility] Sodium 139 135 - 145 mmol/L [facility] Potassium 4.8 3.5 - 5.0 mmol/L [facility] Comment: Please note: ??Patients with WBC >100,000 may have falsely elevated Potassium levels. ??For accurate Potassium quantification in these patients send serum separator tube (gold top) for subsequent determinations. ??Contact the Clinical Chemistry Laboratory if there are any questions. Chloride 105 98 - 107 mmol/L [facility] CO2 18(L) 22 - 31 mmol/L [facility] Anion Gap 16(H) 5 - 15 mmol/L [facility] Calcium 9.3 8.5 - 10.5 mg/dL [facility] Estimated GFR 12(L) >=60 mL/min/1. 73 m?? [facility] [...] MD CHEMISTRY ORDERABL ES Performing Organization Address [facility] de Phone Number [facility] [place] [address] * POCT Glucose (01/25/2023 9:24 PM EDT) POC Glucose 181 65 - 199 mg/dL [facility] Comment: Supplemental ranges: <140 mg/dL before meals <180 mg/dL all other times of the day Blood 01/25/2023 9:24 PM EDT 01/25/2023 9:24 PM EDT Mendel Luna MD POINT OF CARE TEST O RDERABLES Performing Organization Address [facility] de Phone Number [facility] [place] [address] * POCT Glucose (01/25/2023 4:46 PM EDT) POC Glucose 153 65 - 199 mg/dL [facility] Comment: Supplemental ranges: <140 mg/dL before meals <180 mg/dL all other times of the day Blood 01/25/2023 4:46 PM EDT 01/25/2023 4:46 PM EDT Mendel Luna MD POINT OF CARE TEST O RDERABLES Performing Organization Address [facility] de Phone Number [facility] [place] [address] * US Retroperitoneal Complete (01/25/2023 3:50 PM [...] who have questions, please contact the health geriatric personal care aide that requested your imaging first. ?Elsie Garza, [facility] Student Assistance Counselor Electronically Signed Final Report ?? 01/25/2023 04:10 pm Narrative 01/25/2023 4:11 PM EDT Renal ? (Signed Final 01/25/2023 04:10 pm) PATIENT INFO: ID #: ? [id number] ?: ??[birth year] (67 yrs)(M) Name: ? MIGUEL SANCHEZ ? Visit Date: 01/25/2023 03:47 pm PERFORMED BY: Attending: ?Kayla OTT, Elsie Conley Performed By: ? Paola Pritchard RDMS Referred By: ?MENDEL LUNA Location: ? [place] SERVICE(S) PROVIDED: URETRO - Retroperitoneal Complete - [id number] ? [id number] INDICATIONS: 67yo male with CLEM, repeat U/S [...] 01/25/2023 04:10 pm) PATIENT INFO: ID #: [id number] : [birth year] (67 yrs)(M) Name: MIGUEL SANCHEZ Visit Date: 01/25/2023 03:47 pm PERFORMED BY: Attending: Elsie Garza MD Performed By: Paola Pritchard RDMS Referred By: MENDEL LUNA Location: [place] SERVICE(S) PROVIDED: URETRO - Retroperitoneal Complete - [id number] INDICATIONS: 67yo male with CLEM, repeat U/S [...] who have questions, please contact the health geriatric personal care aide that requested your imaging first. Elsie Garza, [facility] Student Assistance Counselor Electronically Signed Final Report 01/25/2023 04:10 pm Mendel Luna MD IM US GEN ORDERABLE S * POCT Glucose (01/25/2023 11:20 AM EDT) Pathologist [facility] POC Glucose 182 65 - 199 mg/dL [facility] Comment: Supplemental ranges: <140 mg/dL before meals <180 mg/dL all other times of the day Blood 01/25/2023 11:2 0 AM EDT 01/25/2023 11:20 AM EDT Mendel Luna MD POINT OF CARE TEST O TESSA [facility] [place] [address] * POCT Glucose (01/25/2023 7:44 AM EDT) [facility] POC Glucose 155 65 - 199 mg/dL [facility] Comment: Supplemental ranges: <140 mg/dL before meals <180 mg/dL all other times of the day Blood 01/25/2023 7:44 AM EDT 01/25/2023 7:44 AM EDT Mendel Luna MD POINT OF CARE TEST O TESSA Performing Organization Address City/[facility] Co de Phone Number [facility] [place] [address] * Differential, Automated (01/25/2023 4:06 AM EDT) Pathologist [facility] Neutrophils % 72.7 % [facility] Neutr Abs (ANC) 5.96 1.70 - 6.10 x10(3)/[facility] Lymphocytes % 14.7 % [facility] Lymphocytes Abs 1.2 0.9 - 3.2 x10(3)/[facility] Monocytes % 8.2 % [facility] Monocyte Abs 0.7 0.3 - 0.9 x10(3)/[facility] Eosinophils % 3.5 % [facility] Eosinophils Abs 0.3 0.0 - 0.4 x10(3)/[facility] Basophils % 0.7 % [facility] Basophils Abs 0.1 0.0 - 0.1 x10(3)/[facility] Immature Gran % 0.20 % [facility] Comment: Immature granulocytes(IG's)percentage and absolute count will include metamyelocytes, myelocytes, and promyelocytes. Blood smears from CBCs yielding IG's will be scanned manually for concordance. If this scan disagrees with the automated IG or if promyelocytes are noted, a manual differential will be performed. Angelica Gran Abs 0.02 0.00 - 0.04 x10(3)/[facility] Blood 01/25/2023 4:06 AM EDT 01/25/2023 4:17 AM EDT Narrative Resulting Agency Comment Spec In Lab Kyle Mckeon MD HEMATOLOGY ORDERABLE S Performing Organization Address City/State/[facility] Co de Phone Number [facility] [place] [address] * (ABNORMAL) Hemogram (01/25/2023 4:06 AM EDT) WBC 8.2 4.0 - 9.5 x10(3)/[facility] RBC 3.38(L) 4.58 - 5.54 x10(6)/[facility] Hemoglobin 10.6(L) 13.7 - 16.5 g/dL [facility] Hematocrit 30.7(L) 40.5 - 48.5 % [facility] MCV 90.8 82.9 - 93.1 fL [facility] MCH 31.4 27.5 - 32.1 pg [facility] MCHC 34.5 32.0 - 35.7 g/dL [facility] Platelets 170 145 - 357 x10(3)/[facility] RDWSD 42.1 36.0 - 45.0 fL [facility] RDWCV 12.8 11.4 - 13.8 % [facility] MPV 12.6 7.6 - 12.9 fL [facility] nRBC % Auto 0.0 % [facility] nRBC Abs Auto 0.000 0.000 - 0.000 x10(3)/mcL [facility] Blood 01/25/2023 4:06 AM EDT 01/25/2023 4:17 AM EDT Narrative Resulting Agency Comment Spec In Lab Kyle Mckeon MD HEMATOLOGY ORDERABLE S Performing Organization Address City/[facility]/ZIP Co de Phone Number [facility] [place] [address] * (ABNORMAL) Phosphorus (01/25/2023 4:06 AM EDT) Phosphorus 4.9(H) 2.5 - 4.5 mg/dL [facility] Blood 01/25/2023 4:06 AM EDT 01/25/2023 4:17 AM EDT Narrative Resulting Agency Comment Spec In Lab Tanya Seaman MD CHEMISTRY ORDERABL ES Performing Organization Address [facility] Co de Phone Number [facility] [place] [address] * Magnesium (01/25/2023 4:06 AM EDT) Magnesium 1.00 0.69 - 1.07 mmol/L [facility] Blood 01/25/2023 4:06 AM EDT 01/25/2023 4:17 AM EDT Narrative Resulting Agency Comment Spec In Lab Tanya Seaman MD CHEMISTRY ORDERABL ES Performing Organization Address City/[facility]/ZIP Co de Phone Number [facility] [place] [address] * (ABNORMAL) Basic Metabolic Panel (non-fasting) (01/25/2023 4:06 AM EDT) Glucose Lvl 148 65 - 199 mg/dL [facility] Comment:Diabetes: >=200 mg/d L plus symptoms BUN 78(H) 10 - 20 mg/dL [facility] Creatinine 5.06(H) 0.80 - 1.50 mg/dL [facility] Sodium 139 135 - 145 mmol/L [facility] Potassium 4.5 3.5 - 5.0 mmol/L [facility] Comment: Please note: ??Patients with WBC >100,000 may have falsely elevated Potassium levels. ??For accurate Potassium quantification in these patients send serum separator tube (gold top) for subsequent determinations. ??Contact the Clinical Chemistry Laboratory if there are any questions. Chloride 103 98 - 107 mmol/L [facility] CO2 19(L) 22 - 31 mmol/L [facility] Anion Gap 17(H) 5 - 15 mmol/L [facility] Calcium 9.5 8.5 - 10.5 mg/dL [facility] Estimated GFR 12(L) >=60 mL/min/1. 73 m?? [facility] [...] Lab Tanya Seaman MD CHEMISTRY ORDERABL ES [facility] [place] [address] * POCT Glucose (01/24/2023 10:12 PM EDT) POC Glucose 175 65 - 199 mg/dL [facility] Comment: Supplemental ranges: <140 mg/dL before meals <180 mg/dL all other times of the day Blood 01/24/2023 10:1 2 PM EDT 01/24/2023 10:12 PM EDT Mendel Luna MD POINT OF CARE TEST O RDERABLES [facility] [place] [address] * POCT Glucose (01/24/2023 4:41 PM EDT) POC Glucose 157 65 - 199 mg/dL [facility] Comment: Supplemental ranges: <140 mg/dL before meals <180 mg/dL all other times of the day Blood 01/24/2023 4:41 PM EDT 01/24/2023 4:41 PM EDT Mendel Luna MD POINT OF CARE TEST O RDERABLES [facility] [place] [address] * POCT Glucose (01/24/2023 12:10 PM EDT) POC Glucose 177 65 - 199 mg/dL [facility] Comment: Supplemental ranges: <140 mg/dL before meals <180 mg/dL all other times of the day Blood 01/24/2023 12:1 0 PM EDT 01/24/2023 12:10 PM EDT Mendel Luna MD POINT OF CARE TEST O RDERABLES [facility] [place] [address] * POCT Glucose (01/24/2023 7:51 AM EDT) [facility] POC Glucose 175 65 - 199 mg/dL [facility] Comment: Supplemental ranges: <140 mg/dL before meals <180 mg/dL all other times of the day Blood 01/24/2023 7:51 AM EDT 01/24/2023 7:51 AM EDT Mendel Luna MD POINT OF CARE TEST O RDERABLES Performing Organization Address City/[facility] Co de Phone Number [facility] [place] [address] * (ABNORMAL) Phosphorus (01/24/2023 2:56 AM EDT) [facility] Phosphorus 5.0(H) 2.5 - 4.5 mg/dL [facility] Blood 01/24/2023 2:56 AM EDT 01/24/2023 3:06 AM EDT Narrative Resulting Agency Comment Spec In Lab Tanya Seaman MD CHEMISTRY ORDERABL ES Performing Organization Address [facility] Co de Phone Number [facility] [place] [address] * Magnesium (01/24/2023 2:56 AM EDT) [facility] Magnesium 0.94 0.69 - 1.07 mmol/L [facility] Blood 01/24/2023 2:56 AM EDT 01/24/2023 3:06 AM EDT Narrative Resulting Agency Comment Spec In Lab Tanya Seaman MD CHEMISTRY ORDERABL ES Performing Organization Address [facility] Co de Phone Number [facility] [place] [address] * (ABNORMAL) Basic Metabolic Panel (non-fasting) (01/24/2023 2:56 AM EDT) [facility] Glucose Lvl 131 65 - 199 mg/dL [facility] Comment:Diabetes: >=200 mg/d L plus symptoms BUN 80(H) 10 - 20 mg/dL [facility] Creatinine 5.46(H) 0.80 - 1.50 mg/dL [facility] Sodium 139 135 - 145 mmol/L [facility] Potassium 4.5 3.5 - 5.0 mmol/L [facility] Comment: Please note: ??Patients with WBC >100,000 may have falsely elevated Potassium levels. ??For accurate Potassium quantification in these patients send serum separator tube (gold top) for subsequent determinations. ??Contact the Clinical Chemistry Laboratory if there are any questions. Chloride 104 98 - 107 mmol/L [facility] CO2 21(L) 22 - 31 mmol/L [facility] Anion Gap 14 5 - 15 mmol/L [facility] Calcium 9.3 8.5 - 10.5 mg/dL [facility] Estimated GFR 11(L) >=60 mL/min/1. 73 m?? [facility] [...] Lab Tanya Seaman MD CHEMISTRY ORDERABL ES [facility] [place] [address] * POCT Glucose (01/23/2023 9:16 PM EDT) POC Glucose 150 65 - 199 mg/dL [facility] Comment: Supplemental ranges: <140 mg/dL before meals <180 mg/dL all other times of the day Blood 01/23/2023 9:16 PM EDT 01/23/2023 9:16 PM EDT Mendel Luna MD POINT OF CARE TEST O RDERABLES Performing Organization Address City/[facility]/ZIP Co de Phone Number [facility] [place] [address] * (ABNORMAL) POCT Glucose (01/23/2023 3:13 PM EDT) POC Glucose 246(H) 65 - 199 mg/dL [facility] Comment: Supplemental ranges: <140 mg/dL before meals <180 mg/dL all other times of the day Blood 01/23/2023 3:13 PM EDT 01/23/2023 3:13 PM EDT Mendel Luna MD POINT OF CARE TEST O RDERABLES Performing Organization Address [facility]/ZIP Co de Phone Number [facility] [place] [address] * POCT Glucose (01/23/2023 11:06 AM EDT) POC Glucose 163 65 - 199 mg/dL [facility] Comment: Supplemental ranges: <140 mg/dL before meals <180 mg/dL all other times of the day Blood 01/23/2023 11:0 6 AM EDT 01/23/2023 11:06 AM EDT Mendel Luna MD POINT OF CARE TEST O RDERABLES [facility] [place] [address] * POCT Glucose (01/23/2023 7:46 AM EDT) POC Glucose 165 65 - 199 mg/dL [facility] Comment: Supplemental ranges: <140 mg/dL before meals <180 mg/dL all other times of the day Blood 01/23/2023 7:46 AM EDT 01/23/2023 7:46 AM EDT Mendel Luna MD POINT OF CARE TEST O RDERABLES [facility] [place] [address] * Differential, Automated (01/23/2023 2:53 AM EDT) Pathologist [facility] Neutrophils % 72.0 % [facility] Neutr Abs (ANC) 5.86 1.70 - 6.10 x10(3)/[facility] Lymphocytes % 13.8 % [facility] Lymphocytes Abs 1.1 0.9 - 3.2 x10(3)/[facility] Monocytes % 9.2 % [facility] Monocyte Abs 0.8 0.3 - 0.9 x10(3)/[facility] Eosinophils % 4.1 % [facility] Eosinophils Abs 0.3 0.0 - 0.4 x10(3)/[facility] Basophils % 0.7 % [facility] Basophils Abs 0.1 0.0 - 0.1 x10(3)/[facility] Immature Gran % 0.20 % [facility] Comment: Immature granulocytes(IG's)percentage and absolute count will include metamyelocytes, myelocytes, and promyelocytes. Blood smears from CBCs yielding IG's will be scanned manually for concordance. If this scan disagrees with the automated IG or if promyelocytes are noted, a manual differential will be performed. Angelica Gran Abs 0.02 0.00 - 0.04 x10(3)/[facility] Blood 01/23/2023 2:53 AM EDT 01/23/2023 3:05 AM EDT Narrative Resulting Agency Comment Spec In Lab Kyle Mckeon MD HEMATOLOGY ORDERABLE S [facility] [place] [address] * (ABNORMAL) Hemogram (01/23/2023 2:53 AM EDT) WBC 8.1 4.0 - 9.5 x10(3)/[facility] RBC 3.41(L) 4.58 - 5.54 x10(6)/[facility] Hemoglobin 10.4(L) 13.7 - 16.5 g/dL [facility] Hematocrit 30.7(L) 40.5 - 48.5 % [facility] MCV 90.0 82.9 - 93.1 [facility] MCH 30.5 27.5 - 32.1 pg [facility] MCHC 33.9 32.0 - 35.7 g/dL [facility] Platelets 182 145 - 357 x10(3)/[facility] RDWSD 42.3 36.0 - 45.0 [facility] RDWCV 13.0 11.4 - 13.8 % [facility] MPV 12.1 7.6 - 12.9 [facility] nRBC % Auto 0.0 % [facility] nRBC Abs Auto 0.000 0.000 - 0.000 x10(3)/[facility] Blood 01/23/2023 2:53 AM EDT 01/23/2023 3:05 AM EDT Narrative Resulting Agency Comment Spec In Lab Kyle Mckeon MD HEMATOLOGY ORDERABLE S [facility] [place] [address] * (ABNORMAL) Phosphorus (01/23/2023 2:53 AM EDT) Phosphorus 5.8(H) 2.5 - 4.5 mg/dL [facility] Blood 01/23/2023 2:53 AM EDT 01/23/2023 3:05 AM EDT Narrative Resulting Agency Comment Spec In Lab Tanya Seaman MD CHEMISTRY ORDERABL ES Performing Organization Address [facility] Co de Phone Number [facility] [place] [address] * Magnesium (01/23/2023 2:53 AM EDT) Magnesium 0.96 0.69 - 1.07 mmol/L [facility] Blood 01/23/2023 2:53 AM EDT 01/23/2023 3:05 AM EDT Narrative Resulting Agency Comment Spec In Lab Tanya Seaman MD CHEMISTRY ORDERABL ES Performing Organization Address [facility] Co de Phone Number [facility] [place] [address] * (ABNORMAL) Basic Metabolic Panel (non-fasting) (01/23/2023 2:53 AM EDT) Glucose Lvl 131 65 - 199 mg/dL [facility] Comment:Diabetes: >=200 mg/d L plus symptoms BUN 81(H) 10 - 20 mg/dL [facility] Creatinine 5.47(H) 0.80 - 1.50 mg/dL [facility] Sodium 139 135 - 145 mmol/L [facility] Potassium 4.4 3.5 - 5.0 mmol/L [facility] Comment: Please note: ??Patients with WBC >100,000 may have falsely elevated Potassium levels. ??For accurate Potassium quantification in these patients send serum separator tube (gold top) for subsequent determinations. ??Contact the Clinical Chemistry Laboratory if there are any questions. Chloride 105 98 - 107 mmol/L [facility] CO2 20(L) 22 - 31 mmol/L [facility] Anion Gap 14 5 - 15 mmol/L [facility] Calcium 9.2 8.5 - 10.5 mg/dL [facility] Estimated GFR 11(L) >=60 mL/min/1. 73 m?? [facility] [...] CHEMISTRY ORDERABL ES Performing Organization Address [facility]/ZIP Co de Phone Number [facility] [place] [address] * (ABNORMAL) POCT Glucose (01/22/2023 7:28 PM EDT) POC Glucose 237(H) 65 - 199 mg/dL [facility] Comment: Supplemental ranges: <140 mg/dL before meals <180 mg/dL all other times of the day Blood 01/22/2023 7:28 PM EDT 01/22/2023 7:28 PM EDT Mendel Luna MD POINT OF CARE TEST O RDERABLES Performing Organization Address City/[facility]/ZIP Co de Phone Number [facility] [place] [address] * POCT Glucose (01/22/2023 5:30 PM EDT) POC Glucose 130 65 - 199 mg/dL [facility] Comment: Supplemental ranges: <140 mg/dL before meals <180 mg/dL all other times of the day Blood 01/22/2023 5:30 PM EDT 01/22/2023 5:30 PM EDT Mendel Luna MD POINT OF CARE TEST O RDERABLES [facility] [place] [address] * CARDIAC CATHETERIZATION (01/22/2023 5:10 PM EDT) Anatomical Region Laterality Modality Other Narrative 01/22/2023 5:07 PM EDT ?[facility] ? Cardiac Catheterization/Intervention Report ? Patient Name: Miguel Sanchez ? Procedure Date: 01/22/2023 ? A #: [id number] ? Primary Physician: Morris, Layton P ? Case #: [id number] ? File Name: [id number] ? Catheterization Order Number: [id number] ? [facility] ? Final Report [place], [place] ? Patient Name: ? Miguel Cook ? ID#: ?[id number] ? : ?1955 ? Procedure Date: ? [...] procedure was Urgent. The indication for ?the supervisor laboratory visit is cardiomyopathy. Chest pain symptom [...] Procedure Note Layton Morris MD - 01/22/2023 [facility] Cardiac Catheterization/Intervention Report Patient Name: Miguel Sanchez Procedure Date: 01/22/2023 A #: [id number] Primary Physician: Layton Morris Case #: [id number] File Name: [id number] Catheterization Order Number: [id number] [facility] FinalReport [place], [place] Patient Name: Miguel Sanchez ID#:[id number] :1955 Procedure Date: January 22, 2023 Case [...] patient was designated as ASA Class III. [facility] is 5: Mildly Frail. Diagnostic Tests: Medications Prior to Procedure: Angiotensin Converting Enzyme Inhibitor, Aspirin, Beta Blockerand Statin. Indications for Diagnostic Cath: The priority of the diagnostic procedure was Urgent. The indicationfor the supervisor laboratory visit is cardiomyopathy. Chest pain symptom [...] POC Glucose 165 65 - 199 mg/dL [facility] Comment: Supplemental ranges: <140 mg/dL before meals <180 mg/dL all other times of the day Blood 01/22/2023 12:3 5 PM EDT 01/22/2023 12:35 PM EDT Mendel Luna MD POINT OF CARE TEST O RDERABLES Performing Organization Address City/[facility]/ZIP Co de Phone Number [facility] [place] [address] * POCT Glucose (01/22/2023 7:52 AM EDT) POC Glucose 145 65 - 199 mg/dL [facility] Comment: Supplemental ranges: <140 mg/dL before meals <180 mg/dL all other times of the day Blood 01/22/2023 7:52 AM EDT 01/22/2023 7:52 AM EDT Chris Lim MD POINT OF CARE TEST O RDERABLES Performing Organization Address [facility]/ZIP Co de Phone Number [facility] [place] [address] * Differential, Automated (01/22/2023 2:42 AM EDT) Neutrophils % 73.7 % [facility] Neutr Abs (ANC) 6.10 1.70 - 6.10 x10(3)/[facility] Lymphocytes % 12.5 % [facility] Lymphocytes Abs 1.0 0.9 - 3.2 x10(3)/[facility] Monocytes % 8.8 % [facility] Monocyte Abs 0.7 0.3 - 0.9 x10(3)/[facility] Eosinophils % 4.1 % [facility] Eosinophils Abs 0.3 0.0 - 0.4 x10(3)/[facility] Basophils % 0.7 % [facility] Basophils Abs 0.1 0.0 - 0.1 x10(3)/[facility] Immature Gran % 0.20 % [facility] Comment: Immature granulocytes(IG's)percentage and absolute count will include metamyelocytes, myelocytes, and promyelocytes. Blood smears from CBCs yielding IG's will be scanned manually for concordance. If this scan disagrees with the automated IG or if promyelocytes are noted, a manual differential will be performed. Angelica Gran Abs 0.02 0.00 - 0.04 x10(3)/[facility] Blood 01/22/2023 2:42 AM EDT 01/22/2023 3:03 AM EDT Narrative Resulting Agency Comment Spec In Lab Kyle Mckeon MD HEMATOLOGY ORDERABLE S Performing Organization Address City/State/[facility] Co de Phone Number [facility] [place] [address] * (ABNORMAL) Hemogram (01/22/2023 2:42 AM EDT) WBC 8.3 4.0 - 9.5 x10(3)/[facility] RBC 3.41(L) 4.58 - 5.54 x10(6)/[facility] Hemoglobin 10.3(L) 13.7 - 16.5 g/dL [facility] Hematocrit 30.8(L) 40.5 - 48.5 % [facility] MCV 90.3 82.9 - 93.1 fL [facility] MCH 30.2 27.5 - 32.1 pg [facility] MCHC 33.4 32.0 - 35.7 g/dL [facility] Platelets 183 145 - 357 x10(3)/[facility] RDWSD 42.0 36.0 - 45.0 fL [facility] RDWCV 12.9 11.4 - 13.8 % [facility] MPV 12.1 7.6 - 12.9 fL [facility] nRBC % Auto 0.0 % [facility] nRBC Abs Auto 0.000 0.000 - 0.000 x10(3)/mcL [facility] Blood 01/22/2023 2:42 AM EDT 01/22/2023 3:03 AM EDT Narrative Resulting Agency Comment Spec In Lab Kyle Mckeon MD HEMATOLOGY ORDERABLE S Performing Organization Address [facility]/ZIP Co de Phone Number [facility] [place] [address] * (ABNORMAL) Phosphorus (01/22/2023 2:42 AM EDT) Phosphorus 5.8(H) 2.5 - 4.5 mg/dL [facility] Blood 01/22/2023 2:42 AM EDT 01/22/2023 3:03 AM EDT Narrative Resulting Agency Comment Spec In Lab Tanya Seaman MD CHEMISTRY ORDERABL ES Performing Organization Address [facility] Co de Phone Number [facility] [place] [address] * Magnesium (01/22/2023 2:42 AM EDT) Magnesium 0.97 0.69 - 1.07 mmol/L [facility] Blood 01/22/2023 2:42 AM EDT 01/22/2023 3:03 AM EDT Narrative Resulting Agency Comment Spec In Lab Tanya Seaman MD CHEMISTRY ORDERABL ES Performing Organization Address [facility]/ZIP Co de Phone Number [facility] [place] [address] * (ABNORMAL) Basic Metabolic Panel (non-fasting) (01/22/2023 2:42 AM EDT) Glucose Lvl 153 65 - 199 mg/dL [facility] Comment:Diabetes: >=200 mg/d L plus symptoms BUN 79(H) 10 - 20 mg/dL [facility] Creatinine 5.86(H) 0.80 - 1.50 mg/dL [facility] Sodium 138 135 - 145 mmol/L [facility] Potassium 4.2 3.5 - 5.0 mmol/L [facility] Comment: Please note: ??Patients with WBC >100,000 may have falsely elevated Potassium levels. ??For accurate Potassium quantification in these patients send serum separator tube (gold top) for subsequent determinations. ??Contact the Clinical Chemistry Laboratory if there are any questions. Chloride 104 98 - 107 mmol/L [facility] CO2 20(L) 22 - 31 mmol/L [facility] Anion Gap 14 5 - 15 mmol/L [facility] Calcium 9.2 8.5 - 10.5 mg/dL [facility] Estimated GFR 10(L) >=60 mL/min/1. 73 m?? [facility] [...] Lab Tanya Seaman MD CHEMISTRY ORDERABL ES [facility] [place] [address] * C3 Complement (01/22/2023 2:42 AM EDT) C3 Complement 126 90 - 180 mg/dL [facility] Blood 01/22/2023 2:42 AM EDT 01/22/2023 3:03 AM EDT Narrative Resulting Agency Comment Spec In Lab Chris Lim MD CHEMISTRY ORDERABLES [facility] [place] [address] * POCT Glucose (01/21/2023 6:41 PM EDT) POC Glucose 199 65 - 199 mg/dL [facility] Comment: Supplemental ranges: <140 mg/dL before meals <180 mg/dL all other times of the day Blood 01/21/2023 6:41 PM EDT 01/21/2023 6:41 PM EDT Chris Lim MD POINT OF CARE TEST O RDERAMARCY Performing Organization Address [facility]/ZIP Co de Phone Number [facility] [place] [address] * POCT Glucose (01/21/2023 3:57 PM EDT) POC Glucose 125 65 - 199 mg/dL [facility] Comment: Supplemental ranges: <140 mg/dL before meals <180 mg/dL all other times of the day Blood 01/21/2023 3:57 PM EDT 01/21/2023 3:57 PM EDT Chris Lim MD POINT OF CARE TEST O RDERAMARCY Performing Organization Address City/[facility]/ZIP Co de Phone Number [facility] [place] [address] * (ABNORMAL) POCT Glucose (01/21/2023 11:32 AM EDT) POC Glucose 249(H) 65 - 199 mg/dL [facility] Comment: Supplemental ranges: <140 mg/dL before meals <180 mg/dL all other times of the day Blood 01/21/2023 11:3 2 AM EDT 01/21/2023 11:32 AM EDT Chris Lim MD POINT OF CARE TEST O TESSA Performing Organization Address [facility] de Phone Number [facility] [place] [address] * (ABNORMAL) POCT Glucose (01/21/2023 9:38 AM EDT) POC Glucose 233(H) 65 - 199 mg/dL [facility] Comment: Supplemental ranges: <140 mg/dL before meals <180 mg/dL all other times of the day Blood 01/21/2023 9:38 AM EDT 01/21/2023 9:38 AM EDT Chris Lim MD POINT OF CARE TEST Loco ZARATE Performing Organization Address [facility] de Phone Number [facility] [place] [address] * EKG 12 Lead (01/21/2023 8:33 AM EDT) Ventricular rate 74 BPM MUSE SYSTEM Atrial Rate 74 BPM MUSE SYSTEM P-R Interval 180 ms MUSE SYSTEM QRS Duration 126 ms MUSE SYSTEM Q-T Interval 454 ms MUSE SYSTEM QTC Calculated (Bezet) 503 ms MUSE SYSTEM Calculated P [place] 32 degrees MUSE SYSTEM Calculated R [place] -35 degrees MUSE SYSTEM Calculated T [place] 97 degrees MUSE SYSTEM INTERPRETATION Normal sinus rhythm Left axis deviation Non-specific intra-ventricu lar conduction block Nonspecific T wave abnormality Abnormal ECG When compared with ECG of 18-JAN-2023 18:52, No significant change was found Confirmed by fellow Lacey Oliveros ([id number]) on 01/23/2023 10:03:20 AM Confirmed by MD Gonzalez David ([id number]) on 01/24/2023 8:22:03 AM MUSE SYSTEM 01/21/2023 8:33 AM EDT 01/24/2023 8:22 AM EDT Tanya Seaman MD ECG ORDERABLES MUSE SYSTEM * POCT Glucose (01/21/2023 8:05 AM EDT) Pathologist [facility] POC Glucose 178 65 - 199 mg/dL [facility] Comment: Supplemental ranges: <140 mg/dL before meals <180 mg/dL all other times of the day Blood 01/21/2023 8:05 AM EDT 01/21/2023 8:05 AM EDT Chris Lim MD POINT OF CARE TEST O RDERABLES Performing Organization Address City/[facility]/ZIP Co de Phone Number [facility] [place] [address] * Differential, Automated (01/21/2023 2:42 AM EDT) Pathologist [facility] Neutrophils % 70.7 % [facility] Neutr Abs (ANC) 5.75 1.70 - 6.10 x10(3)/[facility] Lymphocytes % 14.5 % [facility] Lymphocytes Abs 1.2 0.9 - 3.2 x10(3)/[facility] LAB[facility] Monocytes % 9.1 % [facility] Monocyte Abs 0.7 0.3 - 0.9 x10(3)/[facility] Eosinophils % 4.6 % [facility] Eosinophils Abs 0.4 0.0 - 0.4 x10(3)/[facility] LAB[facility] Basophils % 0.7 % [facility] Basophils Abs 0.1 0.0 - 0.1 x10(3)/[facility] LABOR[facility]ORY Immature Gran % 0.40 % [facility] Comment: Immature granulocytes(IG's)percentage and absolute count will include metamyelocytes, myelocytes, and promyelocytes. Blood smears from CBCs yielding IG's will be scanned manually for concordance. If this scan disagrees with the automated IG or if promyelocytes are noted, a manual differential will be performed. Angelica Gran Abs 0.03 0.00 - 0.04 x10(3)/[facility] LABOR[facility]ORY Blood 01/21/2023 2:42 AM EDT 01/21/2023 2:59 AM EDT Narrative Resulting Agency Comment Spec In Lab Kyle Mckeon MD HEMATOLOGY ORDERABLE S [facility] [place] [address] * (ABNORMAL) Hemogram (01/21/2023 2:42 AM EDT) WBC 8.1 4.0 - 9.5 x10(3)/[facility] LABOR[facility]ORY RBC 3.59(L) 4.58 - 5.54 x10(6)/[facility]ORY Hemoglobin 11.1(L) 13.7 - 16.5 g/dL [facility] Hematocrit 32.4(L) 40.5 - 48.5 % [facility] MCV 90.3 82.9 - 93.1 fL [facility] MCH 30.9 27.5 - 32.1 pg [facility] MCHC 34.3 32.0 - 35.7 g/dL [facility] Platelets 202 145 - 357 x10(3)/[facility] LAB[facility]ORY RDWSD 42.5 36.0 - 45.0 fL [facility] RDWCV 12.8 11.4 - 13.8 % [facility] MPV 12.3 7.6 - 12.9 fL [facility] nRBC % Auto 0.0 % [facility] nRBC Abs Auto 0.000 0.000 - 0.000 x10(3)/mcL [facility] Blood 01/21/2023 2:42 AM EDT 01/21/2023 2:59 AM EDT Narrative Resulting Agency Comment Spec In Lab Kyle Mckeon MD HEMATOLOGY ORDERABLE S Performing Organization Address [facility]/ZIP Co de Phone Number [facility] [place] [address] * (ABNORMAL) Phosphorus (01/21/2023 2:42 AM EDT) Phosphorus 5.3(H) 2.5 - 4.5 mg/dL [facility] Blood 01/21/2023 2:42 AM EDT 01/21/2023 2:58 AM EDT Narrative Resulting Agency Comment Spec In Lab Tanya Seaman MD CHEMISTRY ORDERABL ES Performing Organization Address [facility] Co de Phone Number [facility] [place] [address] * Magnesium (01/21/2023 2:42 AM EDT) Magnesium 0.99 0.69 - 1.07 mmol/L [facility] Blood 01/21/2023 2:42 AM EDT 01/21/2023 2:58 AM EDT Narrative Resulting Agency Comment Spec In Lab Tanya Seaman MD CHEMISTRY ORDERABL ES Performing Organization Address [facility] Co de Phone Number [facility] [place] [address] * (ABNORMAL) Basic Metabolic Panel (non-fasting) (01/21/2023 2:42 AM EDT) Glucose Lvl 120 65 - 199 mg/dL [facility] Comment:Diabetes: >=200 mg/d L plus symptoms BUN 72(H) 10 - 20 mg/dL [facility] Creatinine 5.70(H) 0.80 - 1.50 mg/dL [facility] Sodium 140 135 - 145 mmol/L [facility] Potassium 4.2 3.5 - 5.0 mmol/L [facility] Comment: Please note: ??Patients with WBC >100,000 may have falsely elevated Potassium levels. ??For accurate Potassium quantification in these patients send serum separator tube (gold top) for subsequent determinations. ??Contact the Clinical Chemistry Laboratory if there are any questions. Chloride 100 98 - 107 mmol/L [facility] CO2 20(L) 22 - 31 mmol/L [facility] Anion Gap 20(H) 5 - 15 mmol/L [facility] Calcium 9.3 8.5 - 10.5 mg/dL [facility] Estimated GFR 10(L) >=60 mL/min/1. 73 m?? [facility] [...] Lab Tanya Seaman MD CHEMISTRY ORDERABL ES [facility] [place] [address] * POCT Glucose (01/20/2023 7:45 PM EDT) POC Glucose 158 65 - 199 mg/dL [facility] Comment: Supplemental ranges: <140 mg/dL before meals <180 mg/dL all other times of the day Blood 01/20/2023 7:45 PM EDT 01/20/2023 7:45 PM EDT Chris Lim MD POINT OF CARE TEST O RDERABLES [facility] [place] [address] * POCT Glucose (01/20/2023 4:38 PM EDT) POC Glucose 96 65 - 199 mg/dL [facility] Comment: Supplemental ranges: <140 mg/dL before meals <180 mg/dL all other times of the day Blood 01/20/2023 4:38 PM EDT 01/20/2023 4:38 PM EDT Chris Lim MD POINT OF CARE TEST O RDERAMARCY Performing Organization Address [facility]/ZIP Co de Phone Number [facility] [place] [address] * POCT Glucose (01/20/2023 4:14 PM EDT) POC Glucose 101 65 - 199 mg/dL [facility] Comment: Supplemental ranges: <140 mg/dL before meals <180 mg/dL all other times of the day Blood 01/20/2023 4:14 PM EDT 01/20/2023 4:14 PM EDT Chris Lim MD POINT OF CARE TEST O RDERAMARCY Performing Organization Address City/[facility]/ZIP Co de Phone Number [facility] [place] [address] * Hepatitis C Antibody (01/20/2023 3:23 PM EDT) Hepatitis C Ab Negative Negative [facility] Blood 01/20/2023 3:23 PM EDT 01/20/2023 3:28 PM EDT Narrative Resulting Agency Comment Spec In Lab Austin Sosa MD IMMUNOLOGY ORDERABLE S Performing Organization Address City/[facility]/ZIP Co de Phone Number [facility] [place] [address] * Hepatitis B Core Antibody, Total (01/20/2023 3:23 PM EDT) Hep B Core Ab Negative Negative [facility] Blood 01/20/2023 3:23 PM EDT 01/20/2023 3:28 PM EDT Narrative Resulting Agency Comment Spec In Lab Chris Lim MD CHEMISTRY ORDERABLES Performing Organization Address [facility] Co de Phone Number [facility] [place] [address] * Hepatitis B Surface Antibody (01/20/2023 3:23 PM EDT) HepB Surface Ab Quant <3.5 IU/L [facility] Comment: HepB Surface Ab Quant: Unvaccinated: < 8.5 IU/L Vaccinated: >= 11.5 IU/L HepB Surface Ab Negative [facility] Comment: Patient is presumed to be not vaccinated or immune to HBV infection. Expected Results: Vaccinated: Positive Unvaccinated: Negative Blood 01/20/2023 3:23 PM EDT 01/20/2023 3:28 PM EDT Narrative Resulting Agency Comment Spec In Lab Chris Lim MD IMMUNOLOGY ORDERABLE S Performing Organization Address City/[facility]/ZIP Co de Phone Number [facility] [place] [address] * HIV Screen, 4th Generation (MC/CGP/APD/NLH) (01/20/2023 3:23 PM EDT) HIV-1/2 Ab and Ag Negative Negative [facility] Comment: This 4th Generation HIV [...] HIV Comment Low Risk of HIV Infection [facility] Blood 01/20/2023 3:23 PM EDT 01/20/2023 3:28 PM EDT Narrative Resulting Agency Comment Spec In Lab Chris Lim MD IMMUNOLOGY ORDERABLE S Performing Organization Address [facility]/ZIP Co de Phone Number [facility] [place] [address] * (ABNORMAL) POCT Glucose (01/20/2023 11:33 AM EDT) POC Glucose 206(H) 65 - 199 mg/dL [facility] Comment: Supplemental ranges: <140 mg/dL before meals <180 mg/dL all other times of the day Blood 01/20/2023 11:3 3 AM EDT 01/20/2023 11:33 AM EDT Chris Lim MD POINT OF CARE TEST O RDERABLES Performing Organization Address [facility] Co de Phone Number [facility] [place] [address] * POCT Glucose (01/20/2023 7:24 AM EDT) POC Glucose 152 65 - 199 mg/dL [facility] Comment: Supplemental ranges: <140 mg/dL before meals <180 mg/dL all other times of the day Blood 01/20/2023 7:24 AM EDT 01/20/2023 7:24 AM EDT Chris Lim MD POINT OF CARE TEST O RDERABLES Performing Organization Address City/[facility]/ZIP Co de Phone Number [facility] [place] [address] * Immunoglobulins, Quantitative (01/20/2023 3:26 AM EDT) [facility] IgG 880 700 - 1,600 mg/dL [facility] Comment: Pediatric Reference Intervals obtained from the [employer] Reference Interval project. http://www.new test company.ca/caliperproject/index.html IgA 286 70 - 400 mg/dL [facility] IgM 72 40 - 230 mg/dL [facility] Blood Venous Draw / Unknown 01/20/2023 3:26 AM EDT 01/20/2023 3:44 AM EDT Narrative Resulting Agency Comment Spec In Lab Denote Lugo MD CHEMISTRY ORDERABLE S Performing Organization Address [facility]/ZIP Co de Phone Number [facility] [place] [address] * Immunofixation Electrophoresis (01/20/2023 3:26 AM EDT) [facility] DOROTEO See Note [facility] Comment: No specific abnormality observed. Dr. Arnulfo Moore 01/23/2023 See scanned report. Blood Venous Draw / Unknown 01/20/2023 3:26 AM EDT 01/20/2023 3:44 AM EDT Narrative Resulting Agency Comment Spec In Lab Deonte Lugo MD CHEMISTRY ORDERABLE S Performing Organization Address City/[facility]/ZIP Co de Phone Number [facility] [place] [address] * Protein Electrophoresis, serum (01/20/2023 3:26 AM EDT) [facility] Total Prot Elec 6.5 6.1 - 8.0 g/dL [facility] Albumin Elect 4.11 3.20 - 5.20 g/dL [facility] Alpha1-Globulin 0.25 0.10 - 0.30 g/dL [facility] Alpha2-Globulin 0.75 0.40 - 0.90 g/dL [facility] Beta Globulin 0.68 0.50 - 1.00 g/dL [facility] Gamma Globulin 0.71 0.50 - 1.30 g/dL [facility] M1 Band Comments Below None Detected [facility] SPEP Comments See Note [facility] Comment: Serum protein electrophoresis (PEP) [...] CHEMISTRY ORDERABLE S Performing Organization Address [facility] Co de Phone Number [facility] [place] [address] * C4 Complement (01/20/2023 3:26 AM EDT) C4 Complement 31 10 - 40 mg/dL [facility] Blood Venous Draw / Unknown 01/20/2023 3:26 AM EDT 01/20/2023 3:44 AM EDT Narrative Resulting Agency Comment Spec In Lab Deonte Lugo MD CHEMISTRY ORDERABLE S Performing Organization Address City/[facility] Co de Phone Number [facility] [place] [address] * (ABNORMAL) Free Light Chains, Serum (01/20/2023 3:26 AM EDT) [place] Free Light Chain 8.16(H) 0.72 - 2.75 mg/dL [facility] Lambda Free Light Chain 4.53(H) 0.57 - 2.15 mg/dL [facility] [place] Lambda FLC Ratio 1.8013 0.4000 - 2.5800 [facility] Blood Venous Draw / Unknown 01/20/2023 3:26 AM EDT 01/20/2023 3:44 AM EDT Narrative Resulting Agency Comment Spec In Lab Deonte Lugo MD CHEMISTRY ORDERABLE S [facility] [place] [address] * Differential, Automated (01/20/2023 3:26 AM EDT) Neutrophils % 75.0 % [facility] Neutr Abs (ANC) 6.04 1.70 - 6.10 x10(3)/[facility] Lymphocytes % 12.2 % [facility] Lymphocytes Abs 1.0 0.9 - 3.2 x10(3)/[facility] LAB[facility] Monocytes % 8.6 % [facility] Monocyte Abs 0.7 0.3 - 0.9 x10(3)/[facility] LAB[facility] Eosinophils % 3.3 % [facility] Eosinophils Abs 0.3 0.0 - 0.4 x10(3)/[facility] LAB[facility] Basophils % 0.7 % [facility] Basophils Abs 0.1 0.0 - 0.1 x10(3)/[facility] LABOR[facility]ORY Immature Gran % 0.20 % [facility] Comment: Immature granulocytes(IG's)percentage and absolute count will include metamyelocytes, myelocytes, and promyelocytes. Blood smears from CBCs yielding IG's will be scanned manually for concordance. If this scan disagrees with the automated IG or if promyelocytes are noted, a manual differential will be performed. Angelica Gran Abs 0.02 0.00 - 0.04 x10(3)/[facility] LAB[facility] Blood 01/20/2023 3:26 AM EDT 01/20/2023 3:42 AM EDT Narrative Resulting Agency Comment Spec In Lab Kyle Mckeon MD HEMATOLOGY ORDERABLE S [facility] [place] [address] * (ABNORMAL) Hemogram (01/20/2023 3:26 AM EDT) WBC 8.1 4.0 - 9.5 x10(3)/[facility] LAB[facility] RBC 3.54(L) 4.58 - 5.54 x10(6)/[facility] Hemoglobin 10.8(L) 13.7 - 16.5 g/dL [facility] Hematocrit 32.5(L) 40.5 - 48.5 % [facility] MCV 91.8 82.9 - 93.1 [facility] LABORATORY MCH 30.5 27.5 - 32.1 pg [facility] MCHC 33.2 32.0 - 35.7 g/dL [facility] Platelets 202 145 - 357 x10(3)/[facility] LABORATORY RDWSD 42.9 36.0 - 45.0 [facility] RDWCV 12.7 11.4 - 13.8 % [facility] MPV 11.6 7.6 - 12.9 [facility] LAB[facility]ORY nRBC % Auto 0.0 % [facility] nRBC Abs Auto 0.000 0.000 - 0.000 x10(3)/[facility] Blood 01/20/2023 3:26 AM EDT 01/20/2023 3:42 AM EDT Narrative Resulting Agency Comment Spec In Lab Kyle Mckeon MD HEMATOLOGY ORDERABLE S [facility] [place] [address] * (ABNORMAL) Phosphorus (01/20/2023 3:26 AM EDT) Phosphorus 4.7(H) 2.5 - 4.5 mg/dL [facility] Blood 01/20/2023 3:26 AM EDT 01/20/2023 3:42 AM EDT Narrative Resulting Agency Comment Spec In Lab Tanya Seaman MD CHEMISTRY ORDERABL ES Performing Organization Address [facility] Co de Phone Number [facility] [place] [address] * Magnesium (01/20/2023 3:26 AM EDT) Magnesium 0.95 0.69 - 1.07 mmol/L [facility] Blood 01/20/2023 3:26 AM EDT 01/20/2023 3:42 AM EDT Narrative Resulting Agency Comment Spec In Lab Tanya Seaman MD CHEMISTRY ORDERABL ES Performing Organization Address [facility] Co de Phone Number [facility] [place] [address] * (ABNORMAL) Basic Metabolic Panel (non-fasting) (01/20/2023 3:26 AM EDT) Glucose Lvl 109 65 - 199 mg/dL [facility] Comment:Diabetes: >=200 mg/d L plus symptoms BUN 67(H) 10 - 20 mg/dL [facility] Creatinine 5.79(H) 0.80 - 1.50 mg/dL [facility] Sodium 139 135 - 145 mmol/L [facility] Potassium 4.5 3.5 - 5.0 mmol/L [facility] Comment: Please note: ??Patients with WBC >100,000 may have falsely elevated Potassium levels. ??For accurate Potassium quantification in these patients send serum separator tube (gold top) for subsequent determinations. ??Contact the Clinical Chemistry Laboratory if there are any questions. Chloride 102 98 - 107 mmol/L [facility] CO2 20(L) 22 - 31 mmol/L [facility] Anion Gap 17(H) 5 - 15 mmol/L [facility] Calcium 8.8 8.5 - 10.5 mg/dL [facility] Estimated GFR 10(L) >=60 mL/min/1. 73 m?? [facility] [...] MD CHEMISTRY ORDERABL ES Performing Organization Address City/[facility]/ZIP Co de Phone Number [facility] [place] [address] * (ABNORMAL) Ferritin (01/20/2023 3:26 AM EDT) [facility] Signature Ferritin 478(H) 30 - 400 ng/mL [facility] Comment: Pediatric reference ranges not verified at [facility], interpret with caution. Reference ranges for females greater than 50 years of age approach values for men, i.e., 30-400 ng/mL. Blood 01/20/2023 3:26 AM EDT 01/20/2023 3:42 AM EDT Narrative Resulting Agency Comment Spec In Lab Sixto Morrow MD CHEMISTRY ORDERABLES Performing Organization Address City/[facility]/ZIP Co de Phone Number [facility] [place] [address] * (ABNORMAL) Iron and TIBC (01/20/2023 3:26 AM EDT) Pathologist [facility] Iron 68 45 - 160 mcg/dL [facility] TIBC 229(L) 250 - 450 mcg/dL [facility] Iron Saturation 30 20 - 50 % [facility] Blood 01/20/2023 3:26 AM EDT 01/20/2023 3:42 AM EDT Narrative Resulting Agency Comment Spec In Lab Sixto Morrow MD CHEMISTRY ORDERABLES [facility] [place] [address] * (ABNORMAL) PTH (01/20/2023 3:26 AM EDT) [facility] PTH 401(H) 15 - 65 pg/mL [facility] Blood 01/20/2023 3:26 AM EDT 01/20/2023 3:42 AM EDT Narrative Resulting Agency Comment Spec In Lab Sixto Morrow MD CHEMISTRY ORDERABLES Performing Organization Address City/[facility]/ZIP Co de Phone Number [facility] [place] [address] * (ABNORMAL) Vitamin D, 25-Hydroxy (01/20/2023 3:26 AM EDT) [facility] 25-OH Vit D Total 9(L) 21 - 100 ng/mL [facility] 25-OH Vit D Interp Deficient [facility] Blood 01/20/2023 3:26 AM EDT 01/20/2023 3:42 AM EDT Narrative Resulting Agency Comment Spec In Lab Sixto Morrow MD CHEMISTRY ORDERABLES [facility] [place] [address] * POCT Glucose (01/19/2023 9:33 PM EDT) POC Glucose 112 65 - 199 mg/dL [facility] Comment: Supplemental ranges: <140 mg/dL before meals <180 mg/dL all other times of the day Blood 01/19/2023 9:33 PM EDT 01/19/2023 9:33 PM EDT Chris Lim MD POINT OF CARE TEST O TESSA Performing Organization Address [facility] Co de Phone Number [facility] [place] [address] * POCT Glucose (01/19/2023 4:37 PM EDT) POC Glucose 175 65 - 199 mg/dL [facility] Comment: Supplemental ranges: <140 mg/dL before meals <180 mg/dL all other times of the day Blood 01/19/2023 4:37 PM EDT 01/19/2023 4:37 PM EDT Chris Lim MD POINT OF CARE TEST O TESSA Performing Organization Address [facility] Co de Phone Number [facility] [place] [address] * (ABNORMAL) Basic Metabolic Panel (non-fasting) (01/19/2023 2:15 PM EDT) Glucose Lvl 206(H) 65 - 199 mg/dL [facility] Comment:Diabetes: >=200 mg/d L plus symptoms BUN 59(H) 10 - 20 mg/dL [facility] Creatinine 5.69(H) 0.80 - 1.50 mg/dL [facility] Sodium 140 135 - 145 mmol/L [facility] Potassium 4.4 3.5 - 5.0 mmol/L [facility] Comment: Please note: ??Patients with WBC >100,000 may have falsely elevated Potassium levels. ??For accurate Potassium quantification in these patients send serum separator tube (gold top) for subsequent determinations. ??Contact the Clinical Chemistry Laboratory if there are any questions. Chloride 102 98 - 107 mmol/L [facility] CO2 22 22 - 31 mmol/L [facility] Anion Gap 16(H) 5 - 15 mmol/L [facility] Calcium 9.3 8.5 - 10.5 mg/dL [facility] Estimated GFR 10(L) >=60 mL/min/1. 73 m?? [facility] [...] MD CHEMISTRY ORDERABL ES Performing Organization Address City/[facility]/ZIP Co de Phone Number [facility] [place] [address] * POCT Glucose (01/19/2023 11:31 AM EDT) POC Glucose 96 65 - 199 mg/dL [facility] Comment: Supplemental ranges: <140 mg/dL before meals <180 mg/dL all other times of the day Blood 01/19/2023 11:3 1 AM EDT 01/19/2023 11:31 AM EDT Chris Lim MD POINT OF CARE TEST O RDERABLES Performing Organization Address City/[facility]/ZIP Co de Phone Number [facility] [place] [address] * (ABNORMAL) Basic Metabolic Panel (non-fasting) (01/19/2023 10:29 AM EDT) Glucose Lvl 87 65 - 199 mg/dL [facility] Comment:Diabetes: >=200 mg/d L plus symptoms BUN 60(H) 10 - 20 mg/dL [facility] Creatinine 5.63(H) 0.80 - 1.50 mg/dL [facility] Sodium 143 135 - 145 mmol/L [facility] Potassium 4.4 3.5 - 5.0 mmol/L [facility] Comment: Please note: ??Patients with WBC >100,000 may have falsely elevated Potassium levels. ??For accurate Potassium quantification in these patients send serum separator tube (gold top) for subsequent determinations. ??Contact the Clinical Chemistry Laboratory if there are any questions. Chloride 107 98 - 107 mmol/L [facility] CO2 21(L) 22 - 31 mmol/L [facility] Anion Gap 15 5 - 15 mmol/L [facility] Calcium 9.1 8.5 - 10.5 mg/dL [facility] Estimated GFR 10(L) >=60 mL/min/1. 73 m?? [facility] [...] Lab Tanya Seaman MD CHEMISTRY ORDERABL ES [facility] [place] [address] * ECHO COMPLETE W CONTRAST (01/19/2023 8:59 AM EDT) Anatomical Region Laterality Modality Cardiac Other 01/19/2023 6:52 AM EDT Narrative 01/19/2023 11:43 AM EDT ? Echocardiogram Report Name: MIGUEL SANCHEZ ? Study Date: 01/19/2023 06:52 AMBP: 142/82 mmHg ? Patient Location: [id number] [id number] A : 1955 ? Height: 165 cm ? Account: [id number] Age: 67 yrs ? Weight: 110 kg Gender: Male ?BSA: 2.1 m2 Ordering Physician: TANYA SEAMAN Referring Physician: ELHAM DYKES Performed By: Cathleen Ware RDCS Reason For Study: Heart failure Interpreting Fellow: Martin Reyes. Exam Location: [facility]. Interpretation Summary Left ventricle is mildly [...] ventricular systolic function has further decreased. Procedure Complete-[id number]. Satisfactory quality. Left Ventricle Left ventricle is [...] Date: 306:52 AMBP: 142/82 mmHg Patient Location: [address] : 1955 Height: 165 cm Account: [id number] Age: 67 yrs Weight: 110 kg Gender: Male BSA: 2.1 m2 Ordering Physician: TANYA SEAMAN Referring Physician: ELHAM DYKES Performed By: Cathleen Ware RDCS Reason For Study: Heart failure Interpreting Fellow: Martin Reyes. Exam Location: [facility]. Interpretation Summary Left ventricle is mildly [...] left ventricular systolicfunction has further decreased. Procedure Complete-[id number]. Satisfactory quality. Left Ventricle Left ventricle is [...] bladder.. Electronically signed by: Jimmie العراقي MD, [facility] ([phone]), at 01/19/2023 8:39 AM Thank you for letting us participate in the care of this patient. If you are a health care provider and have any questions regarding this report, please contact the number above. For patients who have questions, please contact the health geriatric personal care aide that requested your imaging first. ?Jimmie العراقي, Staff Physician Electronically Signed Final Report ?? 01/19/2023 08:47 am Narrative 01/19/2023 8:47 AM EDT Renal ? (Signed Final 01/19/2023 08:47 am) PATIENT INFO: ID #: ? [id number] ?: ??[birth year] (67 yrs)(M) Name: ? MIGUEL SANCHEZ ? Visit Date: 01/19/2023 08:27 am PERFORMED BY: Attending: ?Malcom OTT, Jimmie Perez Performed By: ? Kary Iqbal RDMS Referred By: ?TANYA QUEZADAMICHELLE Location: ? [place] SERVICE(S) PROVIDED: URETRO - Retroperitoneal Complete - [id number] ? [id number] INDICATIONS: New CLEM of unclear etiology RIGHT [...] 01/19/2023 08:47 am) PATIENT INFO: ID #: [id number] : [birth year] (67 yrs)(M) Name: MIGUEL SANCHEZ Visit Date: 01/19/2023 08:27 am PERFORMED BY: Attending: Jimmie العراقي MD Performed By: Kary Iqbal RDMS Referred By: TANYA SEAMAN Location: [place] SERVICE(S) PROVIDED: URETRO - Retroperitoneal Complete - [id number] INDICATIONS: New CLEM of unclear etiology RIGHT [...] bladder.. Electronically signed by: Jimmie العراقي MD, [facility] ([phone]), at 01/19/2023 8:39 AM Thank you for letting us participate in the care of this patient. If you are a health care provider and have any questions regarding this report, please contact the number above. For patients who have questions, please contact the health geriatric personal care aide that requested your imaging first. Jimmie العراقي, Staff Physician Electronically Signed Final Report 01/19/2023 08:47 am Tanya Seaman MD IM US GEN ORDERAB LES * POCT Glucose (01/19/2023 8:00 AM EDT) POC Glucose 92 65 - 199 mg/dL [facility] Comment: Supplemental ranges: <140 mg/dL before meals <180 mg/dL all other times of the day Blood 01/19/2023 8:00 AM EDT 01/19/2023 8:00 AM EDT Tanya Seaman MD POINT OF CARE TEST ORDERABLES [facility] [place] [address] * POCT Glucose (01/19/2023 7:42 AM EDT) POC Glucose 87 65 - 199 mg/dL [facility] Comment: Supplemental ranges: <140 mg/dL before meals <180 mg/dL all other times of the day Blood 01/19/2023 7:42 AM EDT 01/19/2023 7:42 AM EDT Tanya Seaman MD POINT OF CARE TEST ORDERABLES [facility] [place] [address] * (ABNORMAL) Basic Metabolic Panel (non-fasting) (01/19/2023 6:21 AM EDT) Glucose Lvl 80 65 - 199 mg/dL [facility] Comment:Diabetes: >=200 mg/d L plus symptoms BUN 58(H) 10 - 20 mg/dL [facility] Creatinine 5.52(H) 0.80 - 1.50 mg/dL [facility] Sodium 143 135 - 145 mmol/L [facility] Potassium 4.3 3.5 - 5.0 mmol/L [facility] Comment: Please note: ??Patients with WBC >100,000 may have falsely elevated Potassium levels. ??For accurate Potassium quantification in these patients send serum separator tube (gold top) for subsequent determinations. ??Contact the Clinical Chemistry Laboratory if there are any questions. Chloride 107 98 - 107 mmol/L [facility] CO2 21(L) 22 - 31 mmol/L [facility] Anion Gap 15 5 - 15 mmol/L [facility] Calcium 8.9 8.5 - 10.5 mg/dL [facility] Estimated GFR 11(L) >=60 mL/min/1. 73 m?? [facility] [...] CHEMISTRY ORDERABL ES Performing Organization Address [facility]/ZIP Co de Phone Number [facility] [place] [address] * CK (01/19/2023 1:50 AM EDT) CK, Total 70 0 - 200 unit/L [facility] Blood Venous Draw / Unknown 01/19/2023 1:50 AM EDT 01/19/2023 1:55 AM EDT Narrative Resulting Agency Comment Spec In Lab Kyle Mckeon MD CHEMISTRY ORDERABLES Performing Organization Address [facility] Co de Phone Number [facility] [place] [address] * Differential, Automated (01/19/2023 1:50 AM EDT) Neutrophils % 73.8 % [facility] Neutr Abs (ANC) 5.75 1.70 - 6.10 x10(3)/[facility] Lymphocytes % 13.8 % [facility] Lymphocytes Abs 1.1 0.9 - 3.2 x10(3)/[facility] Monocytes % 8.5 % [facility] Monocyte Abs 0.7 0.3 - 0.9 x10(3)/[facility] Eosinophils % 3.0 % [facility] Eosinophils Abs 0.2 0.0 - 0.4 x10(3)/[facility] Basophils % 0.6 % [facility] Basophils Abs 0.0 0.0 - 0.1 x10(3)/[facility]ORY Immature Gran % 0.30 % [facility] Comment: Immature granulocytes(IG's)percentage and absolute count will include metamyelocytes, myelocytes, and promyelocytes. Blood smears from CBCs yielding IG's will be scanned manually for concordance. If this scan disagrees with the automated IG or if promyelocytes are noted, a manual differential will be performed. Angelica Gran Abs 0.02 0.00 - 0.04 x10(3)/[facility] Blood 01/19/2023 1:50 AM EDT 01/19/2023 1:54 AM EDT Narrative Resulting Agency Comment Spec In Lab Kyle Mckeon MD HEMATOLOGY ORDERABLE S [facility] [place] [address] * (ABNORMAL) Hemogram (01/19/2023 1:50 AM EDT) WBC 7.8 4.0 - 9.5 x10(3)/[facility] LAB[facility]ORY RBC 3.25(L) 4.58 - 5.54 x10(6)/[facility] Hemoglobin 10.1(L) 13.7 - 16.5 g/dL [facility] Hematocrit 30.3(L) 40.5 - 48.5 % [facility] MCV 93.2(H) 82.9 - 93.1 fL [facility] MCH 31.1 27.5 - 32.1 pg [facility] MCHC 33.3 32.0 - 35.7 g/dL [facility] Platelets 173 145 - 357 x10(3)/[facility] RDWSD 44.6 36.0 - 45.0 [facility] LABORATORY RDWCV 13.0 11.4 - 13.8 % [facility] MPV 11.5 7.6 - 12.9 [facility] nRBC % Auto 0.0 % [facility] nRBC Abs Auto 0.000 0.000 - 0.000 x10(3)/[facility] Blood 01/19/2023 1:50 AM EDT 01/19/2023 1:54 AM EDT Narrative Resulting Agency Comment Spec In Lab Kyle Mckeon MD HEMATOLOGY ORDERABLE S Performing Organization Address City/[facility]/ZIP Co de Phone Number [facility] [place] [address] * Phosphorus (01/19/2023 1:50 AM EDT) Phosphorus 4.3 2.5 - 4.5 mg/dL [facility] Blood 01/19/2023 1:50 AM EDT 01/19/2023 1:54 AM EDT Narrative Resulting Agency Comment Spec In Lab Tanya Seaman MD CHEMISTRY ORDERABL ES Performing Organization Address [facility] Co de Phone Number [facility] [place] [address] * Magnesium (01/19/2023 1:50 AM EDT) Magnesium 0.80 0.69 - 1.07 mmol/L [facility] Blood 01/19/2023 1:50 AM EDT 01/19/2023 1:54 AM EDT Narrative Resulting Agency Comment Spec In Lab Tanya Seaman MD CHEMISTRY ORDERABL ES Performing Organization Address City/[facility]/ZIP Co de Phone Number [facility] [place] [address] * (ABNORMAL) Basic Metabolic Panel (non-fasting) (01/19/2023 1:50 AM EDT) Glucose Lvl 78 65 - 199 mg/dL [facility] Comment:Diabetes: >=200 mg/d L plus symptoms BUN 54(H) 10 - 20 mg/dL [facility] Creatinine 5.50(H) 0.80 - 1.50 mg/dL [facility] Sodium 143 135 - 145 mmol/L [facility] Potassium 4.3 3.5 - 5.0 mmol/L [facility] Comment: Please note: ??Patients with WBC >100,000 may have falsely elevated Potassium levels. ??For accurate Potassium quantification in these patients send serum separator tube (gold top) for subsequent determinations. ??Contact the Clinical Chemistry Laboratory if there are any questions. Chloride 107 98 - 107 mmol/L [facility] CO2 22 22 - 31 mmol/L [facility] Anion Gap 14 5 - 15 mmol/L [facility] Calcium 8.9 8.5 - 10.5 mg/dL [facility] Estimated GFR 11(L) >=60 mL/min/1. 73 m?? [facility] [...] Lab Tanya Seaman MD CHEMISTRY ORDERABL ES [facility] [place] [address] * POCT Glucose (01/19/2023 1:46 AM EDT) Pathologist [facility] POC Glucose 75 65 - 199 mg/dL [facility] Comment: Supplemental ranges: <140 mg/dL before meals <180 mg/dL all other times of the day Blood 01/19/2023 1:46 AM EDT 01/19/2023 1:46 AM EDT Tanya Seaman MD POINT OF CARE TEST ORDERABLES Performing Organization Address [facility] Co de Phone Number [facility] [place] [address] * (ABNORMAL) Blood Gas Venous ([facility]) (01/18/2023 10:20 PM EDT) [facility] pH William 7.37 7.32 - 7.42 [facility] pCO2 William 38(L) 41 - 51 mmHg [facility] pO2 William 30 25 - 40 mmHg [facility] HCO3 William 21.7 mmol/L [facility] BE William -3.7 mmol/L [facility] Hgb Blood Gas Not Perf 13.7 - 16.5 g/dL [facility] O2HB William Not Perf % [facility] COHB William Not Perf % [facility] Comment: Nonsmokers: 0.5-1.5% COHB Smokers: Variable, but usually less than 10% Toxic: 20-30% COHB Lethal: Greater than 60% COHB METHB William Not Perf <=1.5 % [facility] Na Whole Blood 140 135 - 145 mmol/L [facility] K Whole Blood 4.5 3.5 - 5.0 mmol/L [facility] Comment: Please note: Patients with WBC >100,000 may have falsely elevated Potassium levels. Contact the Clinical Chemistry Laboratory if there are any questions. ICa Whole Blood 1.14(L) 1.15 - 1.33 mmol/L [facility] Comment: Note: ??Total bilirubin higher than 20 mg/dL may lead to falsely low ionized calcium. CL Whole Blood 109(H) 98 - 107 mmol/L [facility] Gluc Whole Bld 73 65 - 199 mg/dL [facility] Comment:Diabetes: >=200 mg/d L plus symptoms Lactate WB 1.3 0.5 - 2.2 mmol/L [facility] BGas Source Venous [facility] Blood Venous Draw / Unknown 01/18/2023 10:20 PM EDT 01/18/2023 10:26 PM EDT Narrative Resulting Agency Comment Spec In Lab Kyle Mckeon MD CHEMISTRY ORDERABLES [facility] [place] [address] * (ABNORMAL) Basic Metabolic Panel (non-fasting) (01/18/2023 10:16 PM EDT) Glucose Lvl 74 65 - 199 mg/dL [facility] Comment:Diabetes: >=200 mg/d L plus symptoms BUN 60(H) 10 - 20 mg/dL [facility] Creatinine 5.81(H) 0.80 - 1.50 mg/dL [facility] Sodium 145 135 - 145 mmol/L [facility] Potassium 4.8 3.5 - 5.0 mmol/L [facility] Comment: Please note: ??Patients with WBC >100,000 may have falsely elevated Potassium levels. ??For accurate Potassium quantification in these patients send serum separator tube (gold top) for subsequent determinations. ??Contact the Clinical Chemistry Laboratory if there are any questions. Chloride 109(H) 98 - 107 mmol/L [facility] CO2 Not Perf [facility] Comment:Add-on request. Samp le too old to perform test. Anion Gap Unable to Calculate 5 - 15 mmol/L [facility] Calcium 9.2 8.5 - 10.5 mg/dL [facility] Estimated GFR 10(L) >=60 mL/min/1 .73 m?? [facility] Comment: This patient's [...] In Lab Kyle Mckeon MD CHEMISTRY ORDERABLES [facility] [place] [phone] * (ABNORMAL) Differential, Automated (01/18/2023 10:16 PM EDT) Neutrophils % 78.0 % [facility] Neutr Abs (ANC) 5.41 1.70 - 6.10 x10(3)/mc L [facility] Lymphocytes % 11.5 % [facility] Lymphocytes Abs 0.8(L) 0.9 - 3.2 x10(3)/mc L [facility] Monocytes % 6.6 % [facility] Monocyte Abs 0.5 0.3 - 0.9 x10(3)/mc L [facility] Eosinophils % 3.0 % [facility] Eosinophils Abs 0.2 0.0 - 0.4 x10(3)/mc L [facility] Basophils % 0.6 % [facility] Basophils Abs 0.0 0.0 - 0.1 x10(3)/[facility] LABORATORY Immature Gran % 0.30 % [facility] Comment: Immature granulocytes(IG's)percentage and absolute count will include metamyelocytes, myelocytes, and promyelocytes. Blood smears from CBCs yielding IG's will be scanned manually for concordance. If this scan disagrees with the automated IG or if promyelocytes are noted, a manual differential will be performed. Angelica Gran Abs 0.02 0.00 - 0.04 x10(3)/[facility] LABORATORY Blood 01/18/2023 10:1 6 PM EDT 01/18/2023 10:27 PM EDT Narrative Resulting Agency Comment Spec In Lab Kyle Mckeon MD HEMATOLOGY ORDERABLE S [facility] [place] [address] * (ABNORMAL) Hemogram (01/18/2023 10:16 PM EDT) WBC 6.9 4.0 - 9.5 x10(3)/[facility] LAB[facility] RBC 3.30(L) 4.58 - 5.54 x10(6)/[facility]ORY Hemoglobin 10.1(L) 13.7 - 16.5 g/dL [facility] Hematocrit 31.0(L) 40.5 - 48.5 % [facility] MCV 93.9(H) 82.9 - 93.1 fL [facility] MCH 30.6 27.5 - 32.1 pg [facility] MCHC 32.6 32.0 - 35.7 g/dL [facility] Platelets 196 145 - 357 x10(3)/[facility] LAB[facility]ORY RDWSD 44.9 36.0 - 45.0 fL [facility] RDWCV 13.1 11.4 - 13.8 % [facility] MPV 11.4 7.6 - 12.9 fL [facility] nRBC % Auto 0.0 % [facility] nRBC Abs Auto 0.000 0.000 - 0.000 x10(3)/mcL [facility] Blood 01/18/2023 10:1 6 PM EDT 01/18/2023 10:27 PM EDT Narrative Resulting Agency Comment Spec In Lab Kyle Mckeon MD HEMATOLOGY ORDERABLE S Performing Organization Address [facility] de Phone Number [facility] [place] [address] * Salicylate (01/18/2023 10:16 PM EDT) Salicylate Lvl 3 mg/L [facility] Comment: Therapeutic Range: ??< 200 [...] MD CHEMISTRY ORDERABL ES Performing Organization Address [facility] de Phone Number [facility] [place] [address] * (ABNORMAL) Acetaminophen level (01/18/2023 10:16 PM EDT) Acetamin Lvl <5(L) 5 - 30 mg/L [facility] Comment: Levels >150 mg/L at 4 hours post ingestion are often an indication for N-Acetylcysteine. Blood 01/18/2023 10:1 6 PM EDT 01/18/2023 10:27 PM EDT Narrative Resulting Agency Comment Spec In Lab Tanya Seaman MD CHEMISTRY ORDERABL ES Performing Organization Address [facility] Co de Phone Number [facility] [place] [address] * Phosphorus (01/18/2023 10:16 PM EDT) Phosphorus 4.2 2.5 - 4.5 mg/dL [facility] Blood 01/18/2023 10:1 6 PM EDT 01/18/2023 10:27 PM EDT Narrative Resulting Agency Comment Spec In Lab Tanya Seaman MD CHEMISTRY ORDERABL ES Performing Organization Address [facility] de Phone Number [facility] [place] [address] * Magnesium (01/18/2023 10:16 PM EDT) Magnesium 0.87 0.69 - 1.07 mmol/L [facility] Blood 01/18/2023 10:1 6 PM EDT 01/18/2023 10:27 PM EDT Narrative Resulting Agency Comment Spec In Lab Tanya Seaman MD CHEMISTRY ORDERABL ES Performing Organization Address [facility] de Phone Number [facility] [place] [address] * APTT (01/18/2023 10:16 PM EDT) PTT 35 25 - 37 sec [facility] Comment: The PTT is NOT appropriate for heparin monitoring. Use the Anti-Xa level for heparin monitoring (HEP UFH) or LMWH monitoring (HEP LMW). A PTT less than 37 seconds generally indicates adequate hemostasis. Blood 01/18/2023 10:1 6 PM EDT 01/18/2023 10:27 PM EDT Narrative Resulting Agency Comment Spec In Lab Tanya Seaman MD HEMATOLOGY ORDERAB LES Performing Organization Address [facility]/ZIP Co de Phone Number [facility] [place] [address] * (ABNORMAL) Prothrombin Time (01/18/2023 10:16 PM EDT) PT 14.3(H) 9.4 - 12.5 sec [facility] INR 1.3 [facility] Comment: An INR [...] HEMATOLOGY ORDERAB LES Performing Organization Address [facility] Co de Phone Number [facility] [place] [address] * (ABNORMAL) Hemoglobin A1c (01/18/2023 10:16 PM EDT) Pathologist [facility] Hemoglobin A1C 5.7(H) 4.3 - 5.6 % [facility] Comment: Reference Range: 4.3 - [...] Mellitus, Diabetes Care 2013; 36: Suppl. 1, X37-73 Est Avg Gluc 117 mg/dL [facility] Comment: eAG equivalents for HbA1c [...] into estimated average glucose values. ??Diabetes Care 2008:31(8):2756-4346. Blood 01/18/2023 10:1 6 PM EDT 01/18/2023 10:27 PM EDT Narrative Resulting Agency Comment Spec In Lab Tanya Seaman MD CHEMISTRY ORDERABL ES Performing Organization Address [facility] Phone Number [facility] [place] [address] * TSH [place] (01/18/2023 10:16 PM EDT) TSH 2.03 0.27 - 4.20 mcIU/mL [facility] Comment: Reference Interval (mcIU/mL): Females: ??First Trimester: 0.23-3.88 ??Second Trimester: 0.22-3.90 ??Third Trimester: 0.44-4.66 Blood 01/18/2023 10:1 6 PM EDT 01/18/2023 10:27 PM EDT Narrative Resulting Agency Comment Spec In Lab Tanya Seaman MD CHEMISTRY ORDERABL ES Performing Organization Address City/State/[facility] Co de Phone Number [facility] [place] [address] * LDL Cholesterol, Direct (01/18/2023 10:16 PM EDT) LDL Chol Direct 65 mg/dL [facility] Comment: Lowest Risk: <100 mg/dL Lower Risk: 100-129 mg/dL Borderline High Risk: 130-159 mg/dL High Risk: 160-189 mg/dL Very High Risk: >ju=803 mg/dL Blood 01/18/2023 10:1 6 PM EDT 01/18/2023 10:27 PM EDT Narrative Resulting Agency Comment Spec In Lab Tanya Seaman MD CHEMISTRY ORDERABL ES Performing Organization Address [facility] Co de Phone Number [facility] [place] [address] * HDL/Cholesterol Profile (01/18/2023 10:16 PM EDT) Chol, Total 122 mg/dL [facility] Comment: Lower Risk: <200 mg/dL Average Risk: 200-239 mg/dL Higher Risk: >rt=751 mg/dL HDL 27 mg/dL [facility] Comment: Males: ?? Higher Risk: <40 mg/dL Females: ?? Higher Risk: <50 mg/dL Chol/HDL Ratio 4.5 ratio [facility] Chol/HDL Interpretation See Note [facility] Comment: Lipid management should be guided by a patient? s ASCVD risk, goals and preferences. ACC/AHA Guidelines recommend high intensity statin if clinical ASCVD or LDL greater than or equal to 190 mg/dL. http://tinyurl.com/IKT-PMO-Zmpismgpj Measure LDL if Total Cholesterol minus HDL Cholesterol is greater than 220 mg/dL. Adults aged 40-75 with LDL 70-189 mg/dL should have their 10 year ASCVD risk estimated with the ACC/AHA ASCVD risk estimator and drafter supervisor http://tools.acc.org/LKOBO-Dpzm-Aapamoteq/ Statin should be discussed if risk greater [...] Lab Tanya Seaman MD CHEMISTRY ORDERABL ES [facility] [place] [address] * (ABNORMAL) Troponin (01/18/2023 10:16 PM EDT) Troponin-T HS 78(H) <=22 ng/L [facility] Comment: This patient's troponin [...] value can be found in the [facility] Test Catalog Troponin - [facility] Test Catalog Reference: Fourth Mobile Definition of Myocardial Infarction. Journal of the [place] [employer] 2018;72:5654-1659 Blood 01/18/2023 10:1 6 PM EDT 01/18/2023 10:27 PM EDT Narrative Resulting Agency Comment Spec In Lab Tanya Seaman MD CHEMISTRY ORDERABL ES Performing Organization Address [facility]/ZIP Co de Phone Number [facility] [place] [address] * (ABNORMAL) Protein/Creatinine Ratio, urine (01/18/2023 10:13 PM EDT) U Creatinine 41 mg/dL [facility] U Protein Ran 200(H) 0 - 12 mg/dL [facility] Prot/Cre Ratio 4.9 ratio [facility] Urine Urine / Unknown 01/18/2023 1 0:13 PM EDT 01/18/2023 10:29 PM EDT Narrative Resulting Agency Comment Spec In Lab Deonte Lugo MD URINE ORDERABLES Performing Organization Address [facility]/ZIP Co de Phone Number [facility] [place] [address] * Urine culture (01/18/2023 10:13 PM EDT) Pathologist [facility] Urine Culture No growth (Less than 1,000 cfu/ml). [facility] Indwelling Catheter Urine 01/18/2023 10:13 PM EDT 01/18/2023 11:08 PM EDT Narrative Resulting Agency Comment Spec In Lab Kyle Mckeon MD MICROBIOLOGY - GENER AL ORDERABLES Performing Organization Address [facility]/ZIP Co de Phone Number [facility] [place] [address] * (ABNORMAL) Urinalysis Microscopic Exam (01/18/2023 10:13 PM EDT) RBC UA >100(H) 0 - 3 /HPF [facility] WBC UA 10(H) 0 - 3 /HPF [facility] Squam Epith UA 5(H) <=4 /HPF [facility] Hyaline Cast UA 2 0 - 2 /LPF [facility] Indwelling Catheter Urine 01/18/2023 10:13 PM EDT 01/18/2023 10:22 PM EDT Narrative Resulting Agency Comment Spec In Lab Kyle Mckeon MD URINE ORDERABLES [facility] [place] [address] * Rapid Drug Screen w/ Confirmation, Urine (01/18/2023 10:13 PM EDT) U Barbiturates Screen None Detected None Detected [facility] Comment: The barbiturate screen detects [...] U Benzodiazepines Screen None Detected None Detected [facility] Comment: The benzodiazepines screen detects [...] U Cocaine Screen None Detected None Detected [facility] Comment: The cocaine metabolites screen detects benzoylecgonine (Cocaine Metabolite) at concentrations >150 ng/mL. A ? Presumptive Positive? result indicates that the screening result was positive but has not yet been confirmed by a highly-specific method. As with any screen, occasional false positive results from cross-reacting substances may occur. Not for Medico-Legal Purposes. U Methadone Metabolites Screen None Detected None Detected [facility] Comment: The methadone metabolite screen detects EDDP (major methadone metabolite) at concentrations >100 ng/mL. A ? Presumptive Positive? result indicates that the screening result was positive but has not yet been confirmed by a highly-specific method. As with any screen, occasional false positive results from cross-reacting substances may occur. Not for Medico-Legal Purposes. U Opiate Screen None Detected None Detected [facility] Comment: The opiates screen detects [...] U Cannabinoid Screen None Detected None Detected [facility] Comment: The marijuana metabolites screen detects the THC metabolite (13-dmf-3-carboxy-delta 9-THC) at concentrations >20 ng/mL. A ? Presumptive Positive? result indicates that the screening result was positive but has not yet been confirmed by a highly-specific method. As with any screen, occasional false positive results from cross-reacting substances may occur. Not for Medico-Legal Purposes. U Oxycodone Screen None Detected None Detected [facility] Comment: The oxycodone screen detects oxycodone and oxymorphone at concentrations >100 ng/mL. A ? Presumptive Positive? result indicates that the screening result was positive but has not yet been confirmed by a highly-specific method. As with any screen, occasional false positive results from cross-reacting substances may occur. Not for Medico-Legal Purposes. U Buprenorphine Screen None Detected None Detected [facility] Comment: The buprenorphine screen detects [...] characteristics of this test were determined by [facility] in accordance with CLIA requirements. This laboratory is qualified under CLIA to perform high-complexity testing. U Fentanyl Screen None Detected None Detected [facility] Comment: The fentanyl screen detects [...] of this test were determined by [facility] in accordance with CLIA requirements. This laboratory is qualified under CLIA to perform high-complexity testing. U Tricyclics Screen None Detected None Detected [facility] Comment: The tricyclics screen detects [...] characteristics of this test were determined by [facility] in accordance with CLIA requirements. This laboratory is qualified under CLIA to perform high-complexity testing. U Ethanol Screen None Detected None Detected [facility] Comment:This urine ethanol a ssay detects ethanol at concentrations >/= 100 mg/L. U Amphetamines Screen None Detected None Detected [facility] Comment: The amphetamine screen detects d-amphetamine and d-methamphetamine at concentrations >300 ng/mL. A ? Presumptive Positive? result indicates that the screening result was positive but has not yet been confirmed by a highly-specific method. As with any screen, occasional false positive results from cross-reacting substances may occur. Not for Medico-Legal Purposes. U Creat HEATHER 42 >=20 mg/dL [facility] U Chromate HEATHER <2.0 <=49.9 mg/L [facility] U Nitrite HEATHER <50 <=499 mg/L [facility] U Oxidant HEATHER 6 <=199 mg/L [facility] U pH HEATHER 6.0 3.0 - 10.9 [facility] U Adulterants Screen None Detected None Detected [facility] Comment:No adulteration of t his urine sample was detected. Urine 01/18/2023 10:1 3 PM EDT 01/18/2023 10:22 PM EDT Narrative Resulting Agency Comment Spec In Lab Kyle Mckeon MD CHEMISTRY ORDERABLES Performing Organization Address City/[facility]/ZIP Co de Phone Number [facility] [place] [address] * Rapid Drug Screen, Urine (HEATHER Request) (01/18/2023 10:13 PM EDT) HEATHER Conf Requested Yes [facility] HEATHER Requested See Comment [facility] Comment:Refer to Rapid Drug Screen w/ Confirmation, Urine for results. Urine 01/18/2023 10:1 3 PM EDT 01/18/2023 10:22 PM EDT Narrative Resulting Agency Comment Spec In Lab Tanya Seaman MD URINE ORDERABLES Performing Organization Address [facility] Co de Phone Number [facility] [place] [address] * Creatinine, urine, random (01/18/2023 10:13 PM EDT) U Creatinine 41 mg/dL [facility] Urine 01/18/2023 10:1 3 PM EDT 01/18/2023 10:22 PM EDT Narrative Resulting Agency Comment Spec In Lab Tanya Seaman MD URINE ORDERABLES Performing Organization Address [facility] Co de Phone Number [facility] [place] [address] * Urea nitrogen, urine, random (01/18/2023 10:13 PM EDT) U Urea Nitrogen 251 mg/dL [facility] Urine 01/18/2023 10:1 3 PM EDT 01/18/2023 10:22 PM EDT Narrative Resulting Agency Comment Spec In Lab Tanya Seaman MD URINE ORDERABLES Performing Organization Address [facility]/ZIP Co de Phone Number [facility] [place] [address] * (ABNORMAL) Urinalysis with reflex Culture (01/18/2023 10:13 PM EDT) Glucose UA Negative Negative mg/dL [facility] Protein UA >=300(A) Negative mg/dL [facility] Bilirubin UA Negative Negative mg/dL [facility] Comment: Clinical correlation required for positive Urine Bilirubin results as false positive may occur with some drugs and drug related products. If a false positive is suspected a serum total bilirubin should be considered if clinically indicated. Urobilinogen UA Normal Normal mg/dL [facility] pH UA 6.5 5.0 - 8.0 [facility] Blood UA Large(A) Negative mg/dL [facility] Ketones UA Negative Negative mg/dL [facility] Nitrite UA Negative Negative [facility] Leukocytes UA Small(A) Negative [facility] Appearance UA Cloudy(A) Clear [facility] Spec Custar UA 1.010 1.005 - 1.030 [facility] Color UA Red(A) Yellow [facility] Culture Reflexed Yes [facility] Indwelling Catheter Urine 01/18/2023 10:13 PM EDT 01/18/2023 10:22 PM EDT Narrative Resulting Agency Comment Spec In Lab Tanya Seaman MD URINE ORDERABLES Performing Organization Address [facility]/ZIP Co de Phone Number [facility] [place] [address] * Lactate, whole blood, send to lab ([facility]) (01/18/2023 7:46 PM EDT) Lactate WB 1.6 0.5 - 2.2 mmol/L [facility] Blood 01/18/2023 7:46 PM EDT 01/18/2023 7:51 PM EDT Narrative Resulting Agency Comment Spec In Lab Tanya Seaman MD CHEMISTRY ORDERABL ES [facility] [place] [address] * (ABNORMAL) Differential, Automated (01/18/2023 7:16 PM EDT) Neutrophils % 80.9 % [facility] Neutr Abs (ANC) 5.86 1.70 - 6.10 x10(3)/mc L [facility] Lymphocytes % 9.7 % [facility] Lymphocytes Abs 0.7(L) 0.9 - 3.2 x10(3)/mc L [facility] Monocytes % 5.9 % [facility] Monocyte Abs 0.4 0.3 - 0.9 x10(3)/mc L [facility] Eosinophils % 2.6 % [facility] Eosinophils Abs 0.2 0.0 - 0.4 x10(3)/mc L [facility] Basophils % 0.6 % [facility] Basophils Abs 0.0 0.0 - 0.1 x10(3)/mc L [facility] Immature Gran % 0.30 % [facility] Comment: Immature granulocytes(IG's)percentage and absolute count will include metamyelocytes, myelocytes, and promyelocytes. Blood smears from CBCs yielding IG's will be scanned manually for concordance. If this scan disagrees with the automated IG or if promyelocytes are noted, a manual differential will be performed. Angelica Gran Abs 0.02 0.00 - 0.04 x10(3)/mc L [facility] Blood 01/18/2023 7:16 PM EDT 01/18/2023 7:27 PM EDT Narrative Resulting Agency Comment Spec In Lab Kyle Mckeon MD HEMATOLOGY ORDERABLE S Performing Organization Address City/[facility] Co de Phone Number [facility] [place] [address] * (ABNORMAL) Hemogram (01/18/2023 7:16 PM EDT) WBC 7.2 4.0 - 9.5 x10(3)/[facility] RBC 3.24(L) 4.58 - 5.54 x10(6)/[facility] Hemoglobin 10.1(L) 13.7 - 16.5 g/dL [facility] Hematocrit 30.1(L) 40.5 - 48.5 % [facility] MCV 92.9 82.9 - 93.1 [facility] MCH 31.2 27.5 - 32.1 pg [facility] MCHC 33.6 32.0 - 35.7 g/dL [facility] Platelets 183 145 - 357 x10(3)/[facility] RDWSD 44.4 36.0 - 45.0 [facility] RDWCV 13.2 11.4 - 13.8 % [facility] MPV 11.9 7.6 - 12.9 [facility] nRBC % Auto 0.0 % [facility] nRBC Abs Auto 0.000 0.000 - 0.000 x10(3)/[facility] Blood 01/18/2023 7:16 PM EDT 01/18/2023 7:27 PM EDT Narrative Resulting Agency Comment Spec In Lab Kyle Mckeon MD HEMATOLOGY ORDERABLE S [facility] [place] [address] * (ABNORMAL) pro-Brain Natriuretic Peptide (01/18/2023 7:16 PM EDT) ProBNP 11,818(H) <=124 pg/mL [facility] Blood 01/18/2023 7:16 PM EDT 01/18/2023 7:27 PM EDT Narrative Resulting Agency Comment Spec In Lab Tanya Seaman MD CHEMISTRY ORDERABL ES Performing Organization Address [facility]/ZIP Co de Phone Number [facility] [place] [address] * (ABNORMAL) Troponin (01/18/2023 7:16 PM EDT) Troponin-T HS 78(H) <=22 ng/L [facility] Comment: This patient's troponin [...] value can be found in the [facility] Test Catalog Troponin - [facility] Test Catalog Reference: Fourth Mobile Definition of Myocardial Infarction. Journal of the [place] [employer] 2018;72:4742-3732 Blood 01/18/2023 7:16 PM EDT 01/18/2023 7:27 PM EDT Narrative Resulting Agency Comment Spec In Lab Tanya Seaman MD CHEMISTRY ORDERABL ES [facility] [place] [address] * (ABNORMAL) Comprehensive metabolic panel (non-fasting) (01/18/2023 7:16 PM EDT) Glucose Lvl 76 65 - 199 mg/dL [facility] Comment:Diabetes: >=200 mg/d L plus symptoms BUN 60(H) 10 - 20 mg/dL [facility] Creatinine 5.71(H) 0.80 - 1.50 mg/dL [facility] Sodium 144 135 - 145 mmol/L [facility] Potassium 4.6 3.5 - 5.0 mmol/L [facility] Comment: Please note: ??Patients with WBC >100,000 may have falsely elevated Potassium levels. ??For accurate Potassium quantification in these patients send serum separator tube (gold top) for subsequent determinations. ??Contact the Clinical Chemistry Laboratory if there are any questions. Chloride 109(H) 98 - 107 mmol/L [facility] CO2 21(L) 22 - 31 mmol/L [facility] Anion Gap 14 5 - 15 mmol/L [facility] Calcium 9.3 8.5 - 10.5 mg/dL [facility] Total Protein 7.2 6.1 - 8.0 g/dL [facility] Albumin 4.2 3.2 - 5.2 g/dL [facility] AST 12 0 - 39 unit/L [facility] ALT 12 0 - 55 unit/L [facility] Alk Phos 95 40 - 130 unit/L [facility] Total Bilirubin 0.7 0.2 - 1.3 mg/dL [facility] Estimated GFR 10(L) >=60 mL/min/1. 73 m?? [facility] [...] MD CHEMISTRY ORDERABL ES Performing Organization Address City/[facility] Co de Phone Number [facility] [place] [address] * EKG 12 Lead (01/18/2023 6:52 PM EDT) Ventricular rate 69 BPM MUSE SYSTEM Atrial Rate 69 BPM MUSE SYSTEM P-R Interval 212 ms MUSE SYSTEM QRS Duration 126 ms MUSE SYSTEM Q-T Interval 432 ms MUSE SYSTEM QTC Calculated (Bezet) 462 ms MUSE SYSTEM Calculated P [place] 46 degrees MUSE SYSTEM Calculated R [place] -37 degrees MUSE SYSTEM Calculated T [place] 101 degrees MUSE SYSTEM INTERPRETATION Sinus rhythm with 1st degree A-V block Left axis deviation Non-specific intra-ventricul ar conduction block Possible Lateral infarct , age undetermined Abnormal ECG No previous ECGs available Confirmed by Tessa Saldivar ([id number]) on 01/19/2023 9:21:20 AM MUSE SYSTEM 01/18/2023 6:52 PM EDT 01/19/2023 9:21 AM EDT Tanya Seaman MD ECG ORDERABLES Performing Organization Address City/[facility]/ZIP Co de Phone Number MUSE SYSTEM documented [...] hours., Routine 0730 (Not Given - Provider: Mroena Lopez RN - Reason: Order parameters not [...] Routine documented in this encounter Care Teams Deputy Chief Executive Relationship Specialty Start Date End Date Reinier Arceo PA [address] [place] [address] PCP - General Internal Medicine 01/18/23 documented as of this encounter
--- OUTSIDE RECORDS SUMMARY | 2024-01-27 20:57 | XMS_ITS | Encounter Summary ---
Author Organization [facility] [place] [address] Care Team Providers Care Quantitative Research Analyst Name Role Phone Von Miles MD Primary Care Provider [phone] Reason for Visit * Reason Comments Follow-up Encounter Details Date Type Department Care Team (Late st Contact Info) Description 03/09/2014 1:30 PM EDT Office Visit Dermatology at [address] [address] Sixto Doty MD [address] [facility] [address] DERMATOLOGY [place], [place] [id number] Neurodermatitis (Primary Dx) Discharge Disposition: Home Social History Tobacco Use Types Packs/Day Years Used Date Smoking Tobacco: Never Sex and Gender Information Value Date Recorded Sex Assigned at Not on file Gender Identity Not on file Sexual Orientation Not on file documented as of this encounter Patient Instructions * Patient Instructions* Sarai Acosta LPN - 03/09/2014 1:32 PM EDT [facility] Dermatitis: After Your Visit Your Care Instructions [...] help for plant rashes. ?? Try an sdou-yax-keqxrtw antihistamine such as diphenhydramine (Benadryl) or chlorpheniramine [...] more? Visit our health information library at [email or web address] You can also view health information on [employer], your personal patient account. Log in or sign up today. Enter F270 in the search box to learn more about Dermatitis: After Your Visit. ?? [phone] [employer]. Care instructions adapted under license by [facility]. This care instruction is for use with your licensed healthcare professional. If you have questions about a medical condition or this instruction, always ask your healthcare professional. [employer] disclaims any warranty or liability for your use of this information. Content Version: 9.9.876643; Last Revised: November 11, 2012 documented in [...] senior housing. He is 58-1/2, and the psychotherapist social worker working with Geetha Ran is [...] into this option for him via his psychotherapist social worker in Geetha Tong's office. b. Called in to be sure that he has refills of his triamcinolone cream, refills of his hydroxyzine 25 mg one p.o. q.a.m., and we called in a new prescription to [facility] in [place] for doxepin 10 mg to take one [...] 10:00 AM EDT [place] [address] Austin Simon MD [facility] [place] [address] Lindy Box APRN [facility] [place] [address] documented as of this encounter Visit Diagnoses Diagnosis Neurodermatitis- Primary Lichenification and lichen simplex chronicus documented in this encounter Care Teams Quantitative Research Analyst Relationship Specialty Start Date End Date Von Miles MD [address] [place] [address] [place] [address] PCP - General 12/04/13 04/17/14 documented as of this encounter
--- OUTSIDE RECORDS SUMMARY | 2024-01-27 20:57 | XMS_ITS | Encounter Summary ---
Author Organization [facility] [place] [address] Care Team Providers Care Coastal/Harbor Defense Officer Name Role Phone Adis Reinier ELSIE Primary Care Provider [phone] Encounter Details Date Type Department Care Team (Late st Contact Info) Description 01/18/2023 1:10 PM EDT Ancillary Procedure Radiology Library at [facility] [place] [phone] Dave Rowan MD [facility] [place] [address] Social History Tobacco Use Types Packs/Day Years Used Date Smoking Tobacco: Never Alcohol Use Standard Drinks/Week Comments Never 0 (1 standard drink = 0.6 oz pur e alcohol) [facility] Inpatient Questions Answer Date [...] 10:00 AM EDT [facility] [place] [address] Austin Simon MD [facility] [place] [address] Lindy Box APRN [facility] [place] [address] documented as of this encounter Procedures Procedure Name Priority Date/Time Associated Diagnosis Comments FILM LIBRARY STORAGE ONLY DX CHEST Routine 01/18/2023 1:08 PM EDT documented in this encounter Results * Film Library- Storage Only DX Chest (01/18/2023 1:08 PM EDT) Narrative [facility] - 01/18/2023 1:08 PM EDT This exam is auto-finalizing. It's purpose is for storage only. Dave Rowan MD IMG FILM LIBRARY ORD ERABLES [place], [place] documented in this encounter Visit Diagnoses Not on filedocumented in this encounter Care Teams Coastal/Harbor Defense Officer Relationship Specialty Start Date End Date Reinier Arceo PA [address] [place] [address] PCP - General Internal Medicine 01/18/23 documented as of this encounter
--- OUTSIDE RECORDS SUMMARY | 2024-01-27 20:57 | XMS_ITS | Encounter Summary ---
Author Organization [facility] [place] [address] Care Team Providers Care Public Relations Supervisor Name Role Phone Reina Alcala APRN Primary Care Provider [phone] Reason for Visit * Reason Comments Psoriasis Encounter Details Date Type Department Care Team (Late st Contact Info) Description 10/09/2014 1:15 PM EDT Office Visit Dermatology at [address] [place] [address] Sixto Doty MD [address] [facility] [place] [address] Neurodermatitis Discharge Disposition: Home Social History Tobacco [...] from the original note were not included. [facility] Psoriasis: After Your Visit Your Care Instructions Psoriasis (say puv-GT-iq-ruel) is a long-term skin problem that causes [...] still damp. This seals in moisture. Use inyo-rvm-vrorldk products that your doctor suggests. These may [...] more? Visit our health information library at [email or web address] You can also view health information on [employer], your personal patient account. Log in or sign up today. Enter [id number] in the search box to learn more about Psoriasis: After Your Visit. ?? [phone] [employer]. Care instructions adapted under license by [facility]. This care instruction is for use with your licensed healthcare professional. If you have questions about a medical condition or this instruction, always ask your healthcare professional. [employer] disclaims any warranty or liability for your use of this information. Content Version: [id number]; Current as of: September 06, 2013 documented [...] 10:00 AM EDT [place] [address] Austin Simon MD [facility] [place] [address] Lindy Box [address]N [facility] [place] [address] documented as of this encounter Visit Diagnoses Diagnosis Neurodermatitis Lichenification and lichen simplex chronicus documented in this encounter Care Teams Public Relations Supervisor Relationship Specialty Start Date End Date Reina Alcala APRN [address] [place] [address] [place] [address] PCP - General 04/18/14 01/17/23 documented as of this encounter
--- OUTSIDE RECORDS SUMMARY | 2024-01-27 20:57 | XMS_ITS | Encounter Summary ---
Author Organization [facility] [place] [address] Care Team Providers Care Construction Grip Name Role Phone Reina Alcala APRN Primary Care Provider [phone] Reason for Visit * Reason Comments Skin Check Encounter Details Date Type Department Care Team (Late st Contact Info) Description 12/01/2013 1:00 PM EDT Office Visit Dermatology at [address] [place] [address] Sixto Doty MD [address] [facility] [place] [address] Neurodermatitis (Primary Dx) Social History Tobacco Use [...] him that if he can break the uadf-jtreivk-wgwh cycle, these will heal. f. Return to clinic here in one month for repeat check. COPY: iNcole Kimball. documented in this encounter Plan of Treatment Upcoming Encounters Date Type Department Care Team (Late st Contact Info) Description 02/03/2024 10:00 AM EDT Procedure [place] [address] Austin Simon MD [facility] [place] [address] Lindy Box APRN [facility] [place] [address] documented as of this encounter Visit Diagnoses Diagnosis Neurodermatitis- Primary Lichenification and lichen simplex chronicus documented in this encounter Care Teams Construction Grip Relationship Specialty Start Date End Date Reina Alcala APRN [address] [place] [address] [place] [address] PCP - General 10/24/13 12/03/13 documented as of this encounter
--- OUTSIDE RECORDS SUMMARY | 2024-01-27 20:57 | XMS_ITS | Encounter Summary ---
Author Organization [facility] Address [address] [place] [address] Care Team Providers Care Drupal Web Developer Name Role Phone Casimiro Perez MD Primary Care Provider Nahed montes de oca Encounter Details Date Type Department Care Team (Late st Contact Info) Description 09/02/2019 Lab Requisition [facility] Pathology & Laboratory Medicine - [facility] [address] [place] [address] Unknown, Provider, Social History Tobacco Use Types [...] IGA <1.2 <4.0 U/mL 09/04/2019 14:27 EDT [facility] Comment: A negative result may be due to IgA deficiency and does not rule out celiac disease. ? Negative: ??<4.0 U/mL ? Weak Positive: ??4.0 - 10.0 U/mL ? Positive: ??>10.0 U/mL Results were obtained with the P-CommerceA Lite R h-tTG IgA WENDY assay on the Dynex DSX. IgA 279 85 - 499 mg/dL 09/04/2019 14:27 EDT [facility] Celiac Disease Interpretation Negative Serology. Celiac disease unlikely. Approximately 10% of patients with celiac disease are seronegative. Patients who are already adhering to a gluten-free diet may also be seronegative. If celiac disease is highly clinically suspected, referral to gastroenterology for additional evaluation is recommended. 09/04/2019 14:27 EDT [facility] Blood VENOUS BLOOD / Unknown 09/01/2019 11:51 EST 09/03/2019 16:21 EDT Provider Unknown IMMUNOLOGY AND SEROL ROSSI ORDERABLES [facility] [address] [place] [address] documented in this encounter Visit Diagnoses Not on filedocumented in this encounter Care Teams Drupal Web Developer Relationship Specialty Start Date End Date Casimiro Perez MD PCP - General 05/03/15 documented as of this encounter
--- OUTSIDE RECORDS SUMMARY | 2024-01-27 20:57 | XMS_ITS | Encounter Summary ---
Author Organization [facility] [place] [address] Care Team Providers Care Skiver Box Toe Name Role Phone Reinier Arceo Primary Care Provider [phone] Encounter Details Date Type Department Care Team (Late st Contact Info) Description 01/18/2023 [place] [id number] Unknown None Social History Tobacco Use Types Packs/Day Years Used Date Smoking Tobacco: Never Alcohol Use Standard Drinks/Week Comments Never 0 (1 standard drink = 0.6 oz pur e alcohol) [facility] Inpatient Questions Answer Date Recorded Does [...] 10:00 AM EDT Procedure [place] [id number] Austin Simon MD [facility] [place] [address] Lindy Box APRN [facility] [place] [address] documented as of this encounter Procedures Procedure [...] 05:58 PMBP: 145/90 mmHg ? Patient Location: [facility] ? HR: 69 : 1955 Age: 67 yrs Gender: Male Ordering Physician: Tanya Delcid Referring Physician: Tanya Delcid Performed By: Heron Santacruz Reason For Study: Systolic heart failure History: heart failure Interpreting Fellow: Heron Santacruz. Exam Location: [facility]. Interpretation Summary -Limited echocardiogram performed [...] prior echocardiogram for comparison. Procedure Limited - 71550. Satisfactory quality. There is normal sinus rhythm. [...] Date: 305:58 PMBP: 145/90 mmHg Patient Location: [facility] HR: 69 : 1955 Age: 67 yrs Gender: Male Ordering Physician: Tanya Delcid Referring Physician: Tanya Delcid Performed By: Heron Ralph Reason For Study: Systolic heart failure History: heart failure Interpreting Fellow: Heron Santacruz. Exam Location: [facility]. Interpretation Summary -Limited echocardiogram performed [...] regurgitation jet. The estimated right atrial pressure [id number]. -Normal biatrial size. -Doppler assessment of the aortic valve consistent with mild aorticstenosis although visually the valve does not appear stenotic. Recommend formal echocardiogram for proper assessment. -There is no prior echocardiogram for comparison. Procedure Limited - [id number]. Satisfactory quality. There is normal sinus rhythm. [...] on filedocumented in this encounter Care Teams Skiver Box Toe Relationship Specialty Start Date End Date Reinier Arceo PA [address] [place] [address] PCP - General Internal Medicine 01/18/23 documented as of this encounter
--- OUTSIDE RECORDS SUMMARY | 2024-01-27 20:57 | XMS_ITS | Encounter Summary ---
Author Organization [facility] Address [address] [place] [address] Care Team Providers Care Control Officer Name Role Phone Casimiro Perez MD Primary Care Provider Nahed montes de oca Encounter Details Date Type Department Care Team (Late st Contact Info) Description 09/11/2021 Lab Requisition [facility] Pathology & Laboratory Medicine - [facility] [address] [place] [address] Outr Resulting Lab, Provider Social History Tobacco [...] 0.0 - 4.5 ng/mL 09/11/2021 18:18 EDT [facility] Blood VENOUS BLOOD / Unknown 09/10/2021 16:00 EDT 09/11/2021 17:17 EDT Narrative [facility] - 09/11/2021 18:18 EDT NOTE: Serum PSA concentration should not be interpreted as absolute evidence for the presence or absence of malignant disease. Assayed on Siemens ADVIA SpeSo Healthaur XPT using chemiluminescent technology.??Values obtained by using different assay methods cannot be used interchangeably. Provider Outr Resulting Lab CHEMISTRY & BLOOD GAS ORDERABLES [facility] [address] [place] [address] documented in this encounter Visit Diagnoses Not on filedocumented in this encounter Care Teams Control Officer Relationship Specialty Start Date End Date Casimiro Perez MD PCP - General 05/03/15 documented as of this encounter
--- OUTSIDE RECORDS SUMMARY | 2024-01-27 20:57 | XMS_ITS | Encounter Summary ---
Author Organization [facility] Address [address] [place] [address] Care Team Providers Care Health And Physical Education Professor Name Role Phone Casimiro Perez MD Primary Care Provider Nahed montes de oca Encounter Details Date Type Department Care Team (Late st Contact Info) Description 09/02/2019 Lab Requisition [facility] Pathology & Laboratory Medicine - [facility] [address] [place] [address] Unknown, Provider, Social History Tobacco Use Types [...] 4th Generation Negative Negative 09/04/2019 11:34 EDT [facility] Comment: If acute HIV-1 infection is suspected in a high risk ??patient, submit plasma specimen for HIV-1 RNA quantitation test. Fourth Generation assay performed on the Siemens Centaur. Blood VENOUS BLOOD / Unknown 09/01/2019 11:51 EST 09/03/2019 16:22 EDT Provider Unknown IMMUNOLOGY AND SEROL OGMicki ORDERABLES [facility] [address] [place] [address] documented in this encounter Visit Diagnoses Not on filedocumented in this encounter Care Teams Health And Physical Education Professor Relationship Specialty Start Date End Date Casimiro Perez MD PCP - General 05/03/15 documented as of this encounter
--- OUTSIDE RECORDS SUMMARY | 2024-01-27 20:57 | XMS_ITS | Encounter Summary ---
Author Organization [facility] [place] [address] Care Team Providers Care Laser Print Operator Name Role Phone Reinier Arceo Primary Care Provider [phone] Encounter Details Date Type Department Care Team (Late st Contact Info) Description 01/18/2023 External [place] [id number] Social History Tobacco Use Types Packs/Day Years [...] 10:00 AM EDT [place] [address] Austin Simon MD [facility] [place] [address] Lindy Box APRN [facility] [place] [address] documented as of this encounter Procedures Procedure Name Priority Date/Time Associated Diagnosis Comments ECG SCAN Routine 01/18/2023 1:02 PM EDT documented in this encounter Results * Scan Doc: ECG (01/18/2023 1:02 PM EDT) Historical Provider MD WEBER MGR SCAN EX T ORDR/RSLT documented in this encounter Visit Diagnoses Not on filedocumented in this encounter Care Teams Laser Print Operator Relationship Specialty Start Date End Date Reinier Arceo PA [address] [place] [address] PCP - General Internal Medicine 01/18/23 documented as of this encounter
--- OUTSIDE RECORDS SUMMARY | 2024-01-27 20:57 | XMS_ITS | Encounter Summary ---
Author Organization [facility] [place] [address] Care Team Providers Care Boat Puller Name Role Phone Reina Alcala APRN Primary Care Provider [phone] Reason for Visit * Reason Comments Follow-up Encounter Details Date Type Department Care Team (Late st Contact Info) Description 01/15/2015 1:45 PM EDT Office Visit Dermatology at [address] [place] [address] Sixto Doty MD [address] [place] [address] Self-excoriation disorder Discharge Disposition: Home Social History [...] from the original note were not included. [facility] Dermatitis: After Your Visit Your Care [...] help for plant rashes. ?? Try an otkb-eyf-obmkdtb antihistamine such as diphenhydramine (Benadryl) or chlorpheniramine [...] more? Visit our health information library at [email or web address] You can also view health information on Inventorum, your personal patient account. Log in or sign up today. Enter F270 in the search box to learn more about Dermatitis: After Your Visit. ?? [id number] [employer]. Care instructions adapted under license by [facility]. This care instruction is for use with your licensed healthcare professional. If you have questions about a medical condition or this instruction, always ask your healthcare professional. [employer], [employer] disclaims any warranty or liability for your use of this information. Content Version: 10.4.294935; Current as of: September 06, 2013 documented [...] patient will continue to work with his protective services case worker on finding a solution to his above [...] 10:00 AM EDT [place] [address] Austin Simon MD [facility] [place] [address] Lindy Box APRN [facility] [place] [address] documented as of this encounter Visit Diagnoses Diagnosis Self-excoriation disorder documented in this encounter Care Teams Boat Puller Relationship Specialty Start Date End Date Reina Alcala APRN [address] [place] [address] [place] [address] PCP - General 04/18/14 01/17/23 documented as of this encounter
--- OUTSIDE RECORDS SUMMARY | 2024-01-27 20:57 | XMS_ITS | Encounter Summary ---
Author Organization [facility] Address [address] [place] [address] Care Team Providers Care Harnessmaker Apprentice Name Role Phone Casimiro Perez MD Primary Care Provider Nahed montes de oca Encounter Details Date Type Department Care Team (Late st Contact Info) Description 01/20/2024 Lab Requisition [facility] Pathology & Laboratory Medicine - [facility] [address] [place] [address] Reinier Arceo, [address] [place] [address] Chronic combined systolic (congestive) and [...] management options, if applicable. 01/21/2024 15:06 EDT [facility] Final Diagnosis A. SKIN OF BACK, MIDLINE, PUNCH BIOPSY: - Epidermal ulceration with sparse superficial dermal inflammation. See comment. 01/21/2024 15:06 [facility] Diagnosis Comment Numerous sections of [...] the lack of intact epidermis. 01/21/2024 15:06 [facility] Attestation By the signature below, the attending physician certifies that they have 1) personally conducted a gross and/or microscopic examination of the described specimen(s), and/or personally interpreted the results of laboratory testing of the described specimen(s), and 2) personally rendered or confirmed the above diagnosis. 01/21/2024 15:06 [facility] at 1506 Microscopic Description Sections [...] No scabies organisms are identified. 01/21/2024 15:06 [facility] Clinical History Unknown dermatitis, macular papular rash with generalized urticaria; clinical diagnosis code: L20.9 01/21/2024 15:06 [facility] Gross Description A. Received in formalin labelled with proper patient identification (initials C, K) and M back is a punch biopsy of canales skin (0.3 cm in diameter by 0.6 cm in depth). The specimen is submitted intact in A1. ELSIE VANESSA(ASCP) 01/20/2024 9:31 01/21/2024 15:06 [facility] Performing Lab [facility] 01/21/2024 15:06 EDT [facility] Scanned Images 01/21/2024 15:06 EDT [facility] Tissue SPECIMEN FROM SKIN / Unknown 01/19/2024 14:00 EDT 01/20/2024 8:26 EDT Reinier Arceo [facility] PATHOLOGY ORDERAB LES [facility] [address] [place] [address] documented in this encounter Visit Diagnoses Diagnosis Chronic combined systolic (congestive) and diastolic (congestive) heart failure (HCC-CMS) Atopic dermatitis, unspecified documented in this encounter Care Teams Harnessmaker Apprentice Relationship Specialty Start Date End Date Casimiro Perez MD PCP - General 05/03/15 documented as of this encounter
--- OUTSIDE RECORDS SUMMARY | 2024-01-27 20:57 | XMS_ITS | Encounter Summary ---
Author Organization [facility] Address [facility] [place] [address] Care Team Providers Care Reheater Helper Name Role Phone Reina Aclala SONNY Primary Care Provider [phone] Encounter Details Date Type Department Care Team (Latest Contact Info) Description 08/25/2019 1:40 PM EST - 08/25/2019 11:59 PM [facility] Encounter Mobile Echocardiography [facility] [place] [address] Dianne Pace APRN [facility] [address] [place] [address] Heart failure, unspecified HF chronicity, unspecified heart [...] 10:00 AM EDT [place] [address] Austin Smion MD [facility] [place] [address] Lindy Box APRN [facility] [place] [address] documented as of this encounter Procedures Procedure [...] . ? (Age): 1955(63y) Med Rec#: ? [id number] ?Sex: ?M ? Site Loc: ? [facility] ??Ht / Wt: ??165.1(cm)/118.3 Pt. Loc: ?Adult Floor ? BSA: ?2.22 Study Date: ?? 08/25/2019 ?Pt. Type: Inpatient Tape: ? Referring: Dianne Pace Referring: [facility] (Diag Imaging) Referring: [facility](Med Rec) Referring: [facility](Med/Surg) Reading: Remy Ball ([id number]) Microfilm Operator: ABHI Microfilm Operator: ABHI Diagnosis: *Heart failure, unspecified (I50.9) Rhythm: [...] Vmax ?0.81 ? m/sec ? MV deceleration [id number] ? msec ? MV A-wave Vmax ?1.06 [...] ? Mid-Inferior ?Hypokinetic ? Mid-Inferoseptal ?Hypokinetic ? [place]-Septal ? Hypokinetic ? [place]-Anterior ? Hypokinetic ? [place]-Lateral ?Hypokinetic ? [place]-Inferior ? Hypokinetic ? [place]-Tip ?Hypokinetic ? This report has been electronically signed by: Remy Ball MD ? 08/25/2019 14:23:59 Images reviewed and interpretation verified [facility] Procedure Note Remy Ball MD - 08/25/2019 Procedure: Transthoracic Echocardiogram Patient: KIA Parada (Age): 1955(63y) [facility] Rec#: [id number] Sex: M Site Loc: [facility] Ht / Wt: 165.1(cm)/118.3 Pt. Loc: Adult Floor BSA: 2.22 Study Date: 08/25/2019 Pt. Type: Inpatient Tape: Referring: Dianne Pace Referring: [facility] (Diag Imaging) Referring: [facility](Med Rec) Referring: [facility](Med/Surg) Reading: Remy Ball ([id number]) Microfilm Operator: ABHI Microfilm Operator: ABHI Diagnosis: *Heart failure, unspecified (I50.9) Rhythm: [...] MV E-wave Vmax 0.81 m/sec MV deceleration [id number] msec MV A-wave Vmax 1.06 m/sec MV [...] Hypokinetic Mid-Posterolateral Hypokinetic Mid-Inferior Hypokinetic Mid-Inferoseptal Hypokinetic [place]-Septal Hypokinetic [place]-Anterior Hypokinetic [place]-Lateral Hypokinetic [place]-Inferior Hypokinetic [place]-Tip Hypokinetic This report has been electronically signed by: Remy Ball MD 08/25/2019 14:23:59 Images reviewed and interpretation verified [facility] Dianne Pace APRN ECHO ORDERABLES documented in this encounter Visit Diagnoses Diagnosis Heart failure, unspecified HF chronicity, unspecified heart failure type documented in this encounter Care Teams Reheater Helper Relationship Specialty Start Date End Date Reina Alcala APRN [address] [place] [address] [place] [address] PCP - General 04/18/14 01/17/23 documented as of this encounter
--- OUTSIDE RECORDS SUMMARY | 2024-01-27 20:57 | XMS_ITS | Referral Summary ---
Author Organization [facility] Address [address] [place] [address] Care Team Providers Care Supervisor Patching Name Role Phone Casimiro Perez MD Primary Care Provider Nahed rubiole Encounters Date Type Department Care Team Description 01/20/2024 Lab Requisition [facility] Pathology & Laboratory Medicine - [facility] [address] [place] [address] Reinier Arceo RPA Chronic combined systolic (congestive) [...] if applicable. 01/21/2024 15:[address] [facility] Final Diagnosis A. SKIN OF BACK, MIDLINE, PUNCH BIOPSY: - Epidermal ulceration with sparse superficial dermal inflammation. See comment. 01/21/2024 15:[address] [facility] Diagnosis Comment Numerous sections [...] the lack of intact epidermis. 01/21/2024 15:06 [facility] Attestation By the signature below, the attending physician certifies that they have 1) personally conducted a gross and/or microscopic examination of the described specimen(s), and/or personally interpreted the results of laboratory testing of the described specimen(s), and 2) personally rendered or confirmed the above diagnosis. 01/21/2024 15:06 [facility] at 1506 Microscopic Description Sections [...] No scabies organisms are identified. 01/21/2024 15:06 [facility] Clinical History Unknown dermatitis, macular papular rash with generalized urticaria; clinical diagnosis code: L20.9 01/21/2024 15:06 [facility] Gross Description A. Received in formalin labelled with proper patient identification (initials C, K) and M back is a punch biopsy of canales skin (0.3 cm in diameter by 0.6 cm in depth). The specimen is submitted intact in A1. ELSIE VANESSA(ASCP) 01/20/2024 9:31 01/21/2024 15:06 [facility] Performing Lab [facility] 01/21/2024 15:06 [facility] Scanned Images 01/21/2024 15:06 [facility] Tissue SPECIMEN FROM SKIN / Unknown 01/19/2024 14:00 EDT 01/20/2024 8:26 EDT Reinier Arceo RPA PATHOLOGY ORDERAB LES [facility] [address] [place] [address] from Last 3 Months Care Teams Supervisor Patching Relationship Specialty Start Date End Date Casimiro Perez MD PCP - General 05/03/15
--- OUTSIDE RECORDS SUMMARY | 2024-01-27 20:57 | XMS_ITS | Encounter Summary ---
Author Organization [facility] [place] [address] Care Team Providers Care Environmental Lawyer Name Role Phone Von Miles MD Primary Care Provider [phone] Reason for Visit * Reason Comments Follow-up Encounter Details Date Type Department Care Team (Late st Contact Info) Description 04/17/2014 2:30 PM EDT Office Visit Dermatology at [address] [address] Sixto Doty MD [address] [facility], [address] DERMATOLOGY [place], [place] [id number] Neurodermatitis (Primary Dx) Discharge Disposition: Home Social History Tobacco Use Types Packs/Day Years Used Date Smoking Tobacco: Never Sex and Gender Information Value Date Recorded Sex Assigned at Not on file Gender Identity Not on file Sexual Orientation Not on file documented as of this encounter Patient Instructions * Patient Instructions* Sarai Acosta LPN - 04/17/2014 2:48 PM EDT [facility] Dermatitis: After Your Visit Your Care [...] help for plant rashes. ?? Try an bpei-oxg-gvsuqsf antihistamine such as diphenhydramine (Benadryl) or chlorpheniramine [...] more? Visit our health information library at [email or web address] You can also view health information on Myoonet, your personal patient account. Log in or sign up today. Enter F270 in the search box to learn more about Dermatitis: After Your Visit. ?? [phone] [employer]. Care instructions adapted under license by [facility]. This care instruction is for use with your licensed healthcare professional. If you have questions about a medical condition or this instruction, always ask your healthcare professional. [employer], [employer] disclaims any warranty or liability for your use of this information. Content Version: 9.9.180032; Last Revised: November 11, 2012 documented in [...] 10:00 AM EDT Procedure [place] [address] Austin Simon MD [facility] [place] [address] Lindy Box APRN [facility] [place] [address] documented as of this encounter Visit Diagnoses Diagnosis Neurodermatitis- Primary Lichenification and lichen simplex chronicus documented in this encounter Care Teams Environmental Lawyer Relationship Specialty Start Date End Date Von Miles MD [address] [place] [address] [place] [address] PCP - General 12/04/13 04/17/14 documented as of this encounter
--- OUTSIDE RECORDS SUMMARY | 2024-01-27 20:57 | XMS_ITS | Encounter Summary ---
Author Organization [facility] [place] [address] Care Team Providers Care Dispatcher Service Chief Name Role Phone Reina Alcala APRN Primary Care Provider [phone] Reason for Visit * Reason Comments Follow-up Encounter Details Date Type Department Care Team (Late st Contact Info) Description 07/03/2014 1:00 PM EST Office Visit Dermatology at [place] [address] [facility] [place] [address] Sixto Doty MD [address] [facility], [place] [address] Neurodermatitis Discharge Disposition: Home Social History Tobacco [...] to financial issues of funding his mother's long-term, he has credit card debt that is [...] f. The patient is working with his social media specialist to try to find gainful employment; this is an ongoing process he states. COPY: Reina Alcala A.P.R.N. documented in this encounter Plan of Treatment Upcoming Encounters Date Type Department Care Team (Late st Contact Info) Description 02/03/2024 10:00 AM EDT Procedure [place] [address] Austin Simon MD [facility] [place] [address] Lindy Box APRN [facility] [place] [address] documented as of this encounter Visit Diagnoses Diagnosis Neurodermatitis Lichenification and lichen simplex chronicus documented in this encounter Care Teams Dispatcher Service Chief Relationship Specialty Start Date End Date Reina Alcala APRN [address] [place] [address] [place] [address] PCP - General 04/18/14 01/17/23 documented as of this encounter
--- OUTSIDE RECORDS SUMMARY | 2024-01-27 20:57 | XMS_ITS | Encounter Summary ---
Author Organization [facility] [place] [address] Care Team Providers Care Flight Operations Dispatch Clerk Name Role Phone Reina Alcala APRN Primary Care Provider [phone] Reason for Visit * Reason Comments Follow-up Encounter Details Date Type Department Care Team ([facility] st Contact Info) Description 04/23/2015 1:45 PM EDT Office Visit Dermatology at [address] [place] [address] Sixto Doty MD [address], [place] [address] Self-excoriation disorder Social History Tobacco Use Types Packs/Day Years Used Date Smoking Tobacco: Never Sex and Gender Information Value Date Recorded Sex Assigned at Not on file Gender Identity Not on file Sexual Orientation Not on file documented as of this encounter Patient Instructions * Patient Instructions* Marilyn Ornelas LPN - 04/23/2015 2:11 PM EDT [facility] Actinic Keratosis: After Your Visit Your [...] more? Visit our health information library at [email or web address] You can also view health information on Eloqua, your personal patient account. Log in or sign up today. Enter L364 in the search box to learn more about Actinic Keratosis: After Your Visit. ?? [id number] [employer]. Care instructions adapted under license by [facility]. This care instruction is for use with your licensed healthcare professional. If you have questions about a medical condition or this instruction, always ask your healthcare professional. [employer] disclaims any warranty or liability for your use of this information. Content Version: 10.4.274563; Current as of: January 25, 2014 documented [...] 10:00 AM EDT Procedure [place] [address] Austin Simon MD [facility] [place] [address] Lindy Box APRN [facility] [place] [address] documented as of this encounter Visit Diagnoses Diagnosis Self-excoriation disorder documented in this encounter Care Teams Flight Operations Dispatch Clerk Relationship Specialty Start Date End Date Reina Alcala APRN [address] [place] [address] [place] [address] PCP - General 04/18/14 01/17/23 documented as of this encounter
--- OUTSIDE RECORDS SUMMARY | 2024-01-27 20:57 | XMS_ITS | Encounter Summary ---
Author Organization [facility] [place] [address] Care Team Providers Care Public Message Service Supervisor Name Role Phone Von Miles MD Primary Care Provider [phone] Reason for Visit * Reason Comments Follow-up Encounter Details Date Type Department Care Team (Late st Contact Info) Description 02/06/2014 2:45 PM EDT Office Visit Dermatology at [place] [address] [place] [address] Sixto Doty MD [address] [facility] [place] [address] Neurodermatitis (Primary Dx) Social History Tobacco Use Types Packs/Day Years Used Date Smoking Tobacco: Never Sex and Gender Information Value Date Recorded Sex Assigned at Not on file Gender Identity Not on file Sexual Orientation Not on file documented as of this encounter Patient Instructions * Patient Instructions* Sarai Acosta LPN - 02/06/2014 3:18 PM EDT [facility] Dermatitis: After Your Visit Your Care [...] help for plant rashes. ?? Try an tiyw-fpv-snzvckn antihistamine such as diphenhydramine (Benadryl) or chlorpheniramine [...] more? Visit our health information library at [email or web address] You can also view health information on [employer]ubank, your personal patient account. Log in or sign up today. Enter F270 in the search box to learn more about Dermatitis: After Your Visit. ?? [phone] [employer]. Care instructions adapted under license by [facility]. This care instruction is for use with your licensed healthcare professional. If you have questions about a medical condition or this instruction, always ask your healthcare professional. Healthwise, [employer] disclaims any warranty or liability for your use of this information. Content Version: [id number]; Last Revised: November 11, 2012 documented in [...] 10:00 AM EDT Procedure [place] [address] Austin Simon MD [facility] [place] [address] Lindy Box APRN [facility] [place] [address] documented as of this encounter Visit Diagnoses Diagnosis Neurodermatitis- Primary Lichenification and lichen simplex chronicus documented in this encounter Care Teams Public Message Service Supervisor Relationship Specialty Start Date End Date Von Miles MD [address] [place] [address] [place] [address] PCP - General 12/04/13 04/17/14 documented as of this encounter
--- OUTSIDE RECORDS SUMMARY | 2024-01-27 20:57 | XMS_ITS | Encounter Summary ---
Author Organization [facility] Address [facility] [place] [address] Care Team Providers Care Insect Control Aide Name Role Phone Reinier Arceo Primary Care Provider [phone] Encounter Details Date Type Department Care Team (Late st Contact Info) Description 01/18/2023 Telephone Cardiology at [address] [place] [address] Michelle Caicedo APRN [facility] [place] [address] Social History Tobacco Use Types Packs/Day Years Used Date Smoking Tobacco: Never Alcohol Use Standard Drinks/Week Comments Never 0 (1 standard drink = 0.6 oz pur e alcohol) [facility] Inpatient Questions Answer Date Recorded Does [...] emergency department after being redirected from the [facility] urgent walk-in clinic. He complains [...] the patient condition. Michelle Caicedo, SONNY Pager [phone] 01/18/2023 documented in this encounter Plan of Treatment Upcoming Encounters Date Type Department Care Team (Late st Contact Info) Description 02/03/2024 10:00 AM EDT [place] [address] Austin Simon MD [facility] [place] [address] Lindy Box APRN [facility] [place] [address] documented as of this encounter Visit Diagnoses Not on filedocumented in this encounter Care Teams Insect Control Aide Relationship Specialty Start Date End Date Reinier Arceo PA [address] [place] [address] PCP - General Internal Medicine 01/18/23 documented as of this encounter
--- NOTE | 2024-01-27 22:07 | W.PC.ACHO ---
Registration Status: Primary Language: Preferred Language: ED Information & Data Chief Complaint GenMedical 01/27/24 17:29 Triage Note pt with ongoing skin 01/27/24 15:46 condition and hive ongoing for months, suffering per pt , using 'all the creams', mult areas of open bleeding, new/old bruises, recent fluid retention with weight gain of 30ls in a month, large fluid pannus, hx of urinary retention with alfaro , hx of CHF, unable to move well, SOB/OROURKE, mult complaints, sent by PCP for possible admission for CHF/ fluid build up. Medical / Surgical History (Last Reviewed 01/27/24 @ 19:51 by Galo Cabral) CHF (congestive heart failure) Anemia Acute exacerbation of congestive heart failure Panic attacks High cholesterol Eczema Depression CAP (community acquired pneumonia) Acute dyspnea Asthma exacerbation in COPD CHF exacerbation (Last Reviewed 01/27/24 @ 19:51 by Galo Cabral) Hx of hernia repair Most Recent Vital Signs Temperature 36.5 C 01/27/24 21:21 Temperature Source Temporal Artery Scan 01/27/24 15:46 Pulse 58 L 01/27/24 21:21 Pulse Rhythm Irregular 01/27/24 21:21 Pulse 89 01/27/24 20:40 Respiratory Rate 24 01/27/24 21:21 Respiratory Effort Normal, Non-Labored, Short of Breath 01/27/24 21:21 Respiratory Depth Normal 01/27/24 21:21 Respiratory Pattern Tachypnea 01/27/24 21:21 Blood Pressure 133/100 H 01/27/24 21:21 Blood Pressure Mean 75 01/27/24 19:47 Blood Pressure Position Sitting 01/27/24 15:46 Pulse Oximetry 98 01/27/24 21:21 Oxygen Delivery Method Room Air 01/27/24 21:21 Oxygen Flow Rate 0 01/27/24 21:21 Pain Level 8 01/27/24 21:21 Allergies No Known Allergies Allergy (Unverified 01/27/24 15:42) Precautions Isolation Standard precaution 01/27/24 15:49 IV IV Catheter Type [Left Forearm Saline Lock ] IV Catheter Gauge [Left 18 Forearm] Diet Orders Category Date Time Status Diabetes Consistent CHO/Heart Healthy [DIET] Nutrition 01/28/24 Breakfast Ordered Diagnostics 01/27/24 01/27/24 01/27/24 Range/Units 22:00 19:06 17:53 WBC 6.61 (4.4-10.8) 10^3/uL RBC 3.78 L (4.36-5.78) 10^6/uL Hgb 11.5 L (13.5-17.5) g/dL Hct 35.5 L (40.0-50.0) % MCV 94 (80-95) fL MCH 30.4 (27.0-33.0) pg MCHC 32.4 (32.0-36.0) % RDW 16.3 H (11.8-14.1) % Plt Count 144 (130-400) 10^3/uL MPV 12.2 H (8.0-11.0) fL Immature Gran % 0.5 % Neutrophils % 90.7 % Lymphocytes % 5.3 % Monocytes % 3.3 % Eosinophils % 0.2 % Basophils % 0.0 % Nucleated RBC % 0.0 (0.0-0.3) % Absolute Neutrophils 6.00 (1.2-6.7) 10^3/uL Absolute Lymphocytes 0.35 L (1.2-3.4) 10^3/uL Absolute Monocytes 0.22 (0.1-0.8) 10^3/uL Absolute Eosinophils 0.01 (0.0-0.7) 10^3/uL Absolute Basophils 0.00 (0.0-0.2) 10^3/uL PT 12.1 H (9.1-11.1) sec INR 1.2 H (0.9-1.1) Sodium 146 H (136-145) mmol/L Potassium 4.7 (3.5-5.1) mmol/L Chloride 111 H (98-107) mmol/L Carbon Dioxide 23.4 (21.0-32.0) mmol/L Anion Gap 11.6 H (3-11) mmol/L BUN 63 H (7-18) mg/dL Creatinine 3.5 H (0.70-1.30) mg/dL Est GFR (CKD-EPI 2020) 18.12 (mL/min/1.73m2) Glucose 308 H (74-106) mg/dL Hemoglobin A1c 5.8 H (<5.7) % Calcium 8.2 L (8.5-10.1) mg/dL Magnesium 1.9 (1.8-2.4) mg/dL Total Bilirubin 0.61 (0.2-1.0) mg/dL AST 33 (15-37) U/L ALT 75 H (16-63) U/L Alkaline Phosphatase 100 (46-116) U/L Troponin I Pending < 50 (< or =60) ng/L NT-Pro-B Natriuret Pep > 22822 H (<300) pg/mL Total Protein 5.8 L (6.4-8.2) g/dL Albumin 3.0 L (3.4-5.0) g/dL Urine Color Yellow (Yellow) Urine Clarity Clear (Clear) Urine pH 5.5 (5-8) Ur Specific [place] >= 1.030 H (1.005-1.025) Urine Protein Negative (Neg-Trace) mg/dL Urine Ketones Negative (Negative) mg/dL Urine Blood Trace-intact H (Negative) Urine Nitrite Positive H (Negative) Urine Bilirubin Negative (Negative) Urine Urobilinogen 0.2 (Up to 0.2) mg/dL Ur Leukocyte Esterase Trace H (Negative) Urine RBC Pending Urine WBC Pending Ur Epithelial Cells Pending Urine Crystals Pending Urine Bacteria Pending Urine Mucus Pending Ur Culture Indicated? Pending Urine Glucose Negative (Negative) mg/dL 01/27/24 19:06 Urine Culture - Pending Urine - Cath Alfaro Indwelling Xyzla-vu-Osju Documentation Fingerstick Glucose Start: 01/27/24 20:03 Freq: AC & HS Status: Active Protocol: Activity Type Activity Date Activity User E-sign Co-sign Detail Recorded Client Recorded Date Recorded By Document 01/27/24 21:23 BKG DAEMON(3) [id number] 01/27/24 21:24 BKG DAEMON(4) Intake and Output - 24 Hour Total 01/27/24 15:35 thru 01/27/24 21:21 Intake Total 10 Balance 10 Weight 83.461 kg Intake: IV 10 Other: Urine Color Pale Yellow Urine Appearance Clear Falls Risk Assessment History of Falls No History 01/27/24 21:21 Contributing Factors Impairments 01/27/24 21:21 Ambulatory Aids Uses ambulatory device + 01/27/24 21:21 Tubes/Lines None 01/27/24 21:21 Gait Evaluation No gait disturbance 01/27/24 21:21 Cognition No cognitive impairment 01/27/24 21:21 Fall Total Score 33 01/27/24 21:21 Level of Risk Moderate Risk 01/27/24 21:21 Problems (Last Reviewed 01/27/24 @ 19:51 by Galo Cabral) Anasarca (Acute) Heart failure with reduced ejection fraction (HFrEF, <= 40%) and combined systolic and diastolic dysfunction (Acute) Urinary retention due to benign prostatic hyperplasia (Acute) Hypertension (Chronic) Schizophrenia (Chronic) Diabetes mellitus type 2 in obese (Acute) v v v v v v v v v Sending and/or Receiving Nurses: Please use comment section below to note any information pertinent to the patient hand-off not included above. Information / Comments: Pt came to ER per recommendation of PCP; able to ambulate at time of admission, but appears unsteady. Pt has generalized rash across entire body; pt endorses itchiness and pain associated; not medicated for this in ED. Pt has had a chronic alfaro for approx. 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 Significant generalized pitting edema. Large fluid pouch in pannis. Pt has had approx. 30# weight gain in recent weeks; has received 80mg furosemide in ED. Pt endorses SOB with exertion, with SpO2 at or above 94% on RA. Otherwise VSS. Allergies confirmed. Home meds reconciled. Report received from: Travis Perez RN on 01/27/2024 @ 2038
[2024-01-27 22:34] LABS: Bacteria Few HPF (Negative); C & S Indicated? Yes; Casts Negative LPF (Negative); Crystals Negative HPF (Negative); Epithelial Cells Few HPF (Negative); Mucus Negative (Negative); RBC 0-2 HPF (0-2)
[2024-01-27] MEDS: Enoxaparin 30 MG/0.3 ML SYR SC (22:37)
[2024-01-27] MEDS: ALBUMIN HUMAN 25 GM/100 ML BTL IVPB (22:38)
[2024-01-27] MEDS: Normal Saline Flush 10 ML SYR IVP (22:38)
[2024-01-27 22:52] LABS: Troponin I < 50 ng/L (< or =60)
[2024-01-27 23:36] LABS: Anion Gap 13.6 mmol/L (3-11); BUN 65 mg/dL (7-18); CO2 21.4 mmol/L (21.0-32.0); CREATININE 3.4 mg/dL (0.70-1.30); Calcium 8.1 mg/dL (8.5-10.1); Chloride 111 mmol/L (98-107); Estimated GFR 18.76 (mL/min/1.73m2); Glucose 242 mg/dL (74-106); PHOSPHORUS 4.7 mg/dL (2.6-4.7); Potassium 4.6 mmol/L (3.5-5.1); Sodium 146 mmol/L (136-145)
[2024-01-28] VITALS (48 sets, daily range): BP systolic 108–136; BP diastolic 71–99; PULSE 52–102; RESP 15–26; TEMP 35.7–36.6; O2SAT 94–100
[2024-01-28 06:59] LABS: HCT 35.7 % (40.0-50.0); HGB 11.3 g/dL (13.5-17.5); MCHC 31.7 % (32.0-36.0); MCV 95 fL (80-95); MPV 12.9 fL (8.0-11.0); Platelet Count 148 10^3/uL (130-400); RBC 3.77 10^6/uL (4.36-5.78); RDW 16.4 % (11.8-14.1); RDW-SD 56.5 fL; WBC 7.15 10^3/uL (4.4-10.8)
[2024-01-28 07:05] LABS: INR 1.2 (0.9-1.1); Prothrombin Time 11.6 sec (9.1-11.1)
[2024-01-28 07:17] LABS: Troponin I < 50 ng/L (< or =60)
[2024-01-28 07:18] LABS: ALT 89 U/L (16-63); AST 43 U/L (15-37); Albumin 3.3 g/dL (3.4-5.0); Alkaline Phosphatase 83 U/L (46-116); Anion Gap 13.4 mmol/L (3-11); BUN 66 mg/dL (7-18); Bilirubin, Total 0.56 mg/dL (0.2-1.0); CO2 21.6 mmol/L (21.0-32.0); CREATININE 3.2 mg/dL (0.70-1.30); Calcium 8.6 mg/dL (8.5-10.1); Chloride 109 mmol/L (98-107); Estimated GFR 20.18 (mL/min/1.73m2); Glucose 175 mg/dL (74-106); Magnesium 2.1 mg/dL (1.8-2.4); Potassium 4.2 mmol/L (3.5-5.1); Sodium 144 mmol/L (136-145); Total Protein 5.9 g/dL (6.4-8.2)
[2024-01-28] MEDS: Normal Saline Flush 10 ML SYR IVP ×5 (08:10→21:59)
[2024-01-28] MEDS: Furosemide 100 MG/10 ML VIAL 80 MG IVP ×3 (08:10→22:04)
[2024-01-28] MEDS: Ketoconazole 2% CREAM 15 GM TUBE TP (10:57)
[2024-01-28] MEDS: Lachydrin 12% LOTION 225 GM BTL TP (10:57)
[2024-01-28] MEDS: Triamcinolone 0.1% CR 15 GM TUBE TP (10:57)
--- NOTE | 2024-01-28 11:19 | PDOC.CMIN ---
Date of service: 01/28/24 Time of Service: 11:20 Care Management Initial Assmt Initial Assessment Reason for Hospitalization: CHF exacerbation, CLEM Functional Status/Living Situation Patient Presentation: Miguel was sitting up in his chair when CM met with him. He reported that he is doing ok today; he is visibly itchy, and has what appears to be a rash on his skin. 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 Miguel stated that he is overall independent, living at home alone. He stated that his medications are delivered as needed by his local pharmacy, not by TELEPHONE DIRECTORY DISTRIBUTOR DRIVER. CM called and spoke to Enma, at Miguel's request, and informed her that Miguel is inpatient for medical reasons. Miguel stated that he has had HH services in the past, but does not anticipate needing them at the time of discharge. He will likely require [facility] transportation via private vehicle. CM will continue to follow. Town of Residence: [facility] Resides with: Alone Significant Other/Family: Out of area (Sister, Mony) Caregiver/Guardian: [facility]- TELEPHONE DIRECTORY DISTRIBUTOR DRIVER program Employment Status: Unemployed Instrumental Activities of Daily Living (ADLs): Independent Medications Medication Management: No Issues/Barriers identified Advance Directives Advance Directives: Do you have an Advance Directive: N 02/10/23 09:03 AD On File at [facility]: N 02/10/23 09:03 Date Asked 01/27/24 01/27/24 15:41 AD Date Reviewed COLST On File at [facility] No 01/27/24 15:41 COLST Date Scanned Code Status Resuscitation Status Full Code Insurance Coverage/Financial Issues Insurance: [facility] Care Team Visit Care Team Role Provider Type Reinier Arceo Primary Care Provider NON-[facility] STAFF PHYSICIAN Christo Conner MD Emergency Provider [facility] STAFF PHYSICIAN Galo Cabral Admit Provider NON-[facility] STAFF PHYSICIAN Attending Provider Discharge Potential Discharge Needs: PCP F/U Appt Anticipated Barriers to Discharge: None Identified Patient/Family Education Needs: Review discharge instructions, discuss Ask Me Three Transportation: Private vehicle Plan: Anticipate Miguel will return home with a resumption of his community supports, including TELEPHONE DIRECTORY DISTRIBUTOR DRIVER. He will transport via private vehicle by RCT vs [facility] staff. He will follow up with his PCP and his discharge plan of care. CM will continue to follow. PFSH All Active Problems (Updated 01/28/24 @ 11:06 by Galo Cabral) Edema (Acute) CLEM (acute kidney injury) (Acute) Hypernatremia (Acute) Anasarca (Acute) Heart failure with reduced ejection fraction (HFrEF, <= 40%) and combined systolic and diastolic dysfunction (Acute) Urinary retention due to benign prostatic hyperplasia (Chronic) Weakness (Acute) CLEM (acute kidney injury) (Acute) Heart failure with reduced ejection fraction (Chronic) Hypertension (Chronic) Schizophrenia (Chronic) Diabetes mellitus type 2 in obese (Chronic) Medical History CHF (congestive heart failure) Anemia Acute exacerbation of congestive heart failure Panic attacks High cholesterol Eczema Depression CAP (community acquired pneumonia) Acute dyspnea Asthma exacerbation in COPD CHF exacerbation Surgical History Hx of hernia repair Social History Smoking/Tobacco Use Status: Never Smoking risk assessment performed?: Yes Alcohol Intake: never Drug use: Never Substance use type: does not use Housing: apartment What type of physical activity do you participate in: none Do you feel safe at home: Yes Do you feel safe in your relationship?: Yes SDOH(Care Management) Screening Will the Patient Participate in the Screening?: Yes Do you worry about having a steady place to live?: no In the past 12 months, have you had to go without electric, gas, oil or water in your home?: no Have you or anyone in your house had to go without enough food to eat?: no Has lack of transportation kept you from medical appointments or from doing things needed for daily living?: yes Has anyone in your support network made you feel unsafe for any reason?: yes Social Determinants of Health Comments(SDOH Details): Pt describes concerns about others in the apartment building putting fidelina in his laundry; admits potential for this to be paranoia. Health Related Social Needs Health related social needs: transportation insecurity(Z59.82) and problem related to primary support group(Z63.9)
--- NOTE | 2024-01-28 11:32 | PHA.REVIEW2 ---
Pharmacy Admission Review Admission Clinical Review Admission Pharmacy Review: Edema (Acute) CLEM (acute kidney injury) (Acute) Hypernatremia (Acute) Anasarca (Acute) Heart failure with reduced ejection fraction (HFrEF, <= 40%) and combined systolic and diastolic dysfunction (Acute) CLEM (acute kidney injury) (Acute) No Known Allergies Allergy (Unverified 01/27/24 15:42) Resuscitation Status Full Code Height 5 ft 5 in Weight 83 kg Pharmacy Admission Review Renal Dosing Renal Dosing: BUN 66 mg/dL (7-18) H 01/28/24 05:35 Creatinine 3.2 mg/dL (0.70-1.30) H 01/28/24 05:35 Medications needing adjustments: Reviewed (CrCl 21.6 mL/min, BUN decreased from 3.4) List of meds needing interventions: Current medications are okay Anticoagulation Anticoagulation: Hgb 11.3 g/dL (13.5-17.5) L 01/28/24 05:35 Hct 35.7 % (40.0-50.0) L 01/28/24 05:35 Plt Count 148 10^3/uL (130-400) 01/28/24 05:35 INR 1.2 (0.9-1.1) H 01/28/24 05:35 Creatinine 3.2 mg/dL (0.70-1.30) H 01/28/24 05:35 DVT Prophylaxis: Reviewed (Hgb decreased from 11.5) Medications: Enoxaparin (30mg daily) Relevant Labs Relevant Labs: Sodium 144 mmol/L (136-145) 01/28/24 05:35 Potassium 4.2 mmol/L (3.5-5.1) 01/28/24 05:35 Chloride 109 mmol/L (98-107) H 01/28/24 05:35 Phosphorus 4.7 mg/dL (2.6-4.7) 01/27/24 23:20 Magnesium 2.1 mg/dL (1.8-2.4) 01/28/24 05:35 Electrolytes, C-Reactive P, ESR: Reviewed (AST/ALT 43/89 (increased from 33/75), urine culture pending) DM Control DM Control: Glucose 175 mg/dL (74-106) H 01/28/24 05:35 Hemoglobin A1c 5.8 % (<5.7) H 01/27/24 17:53 Finger Stick Blood Glucose 132 0747 Finger Stick Blood Glucose 132 0747 DM Control: Reviewed Insulin Dosing, Diabetic Medication: Has order for SS insulin Cardiac Review Cardiac Review: Troponin I < 50 ng/L (< or =60) 01/28/24 05:35 NT-Pro-B Natriuret Pep > 45993 pg/mL (<300) H 01/27/24 17:53 BP, HR, EF%: Reviewed (HR and BP WNL) QTc Review QTc: Reviewed (473 from 01/27/24) IV to PO Switch IV Medications: Reviewed (furosemide) Home Meds Home Med List reviewed: Intervened Relevent Home Meds Not ordered & why?: bengay cream and prednisone taper Reached out to provider regarding prednisone (is using for rash per H+P) Spironolactone and ferrous sulfate on external fill history - nursing confirmed with patient that he does NOT take these at home Current Meds Current Medication Order Review: Reviewed
--- NOTE | 2024-01-28 13:34 | DI.RAD_ITS ---
Exam(s) XR SHOULDER RT COMPLETE 2+V EXAM: XR SHOULDER RT COMPLETE 2+V CLINICAL HISTORY: possible subluxation. TECHNIQUE: 2D digital imaging was performed. Five views. COMPARISON: CR XR PORTABLE CHEST AP from 01/27/2024 FINDINGS: BONES: No acute fracture is present. No bony destructive lesion is seen. JOINTS: No dislocation present. Evidence of subluxation. The findings on recent chest x-ray is seco ndary to positioning. Mild degenerative changes of the AC joint. Mild spurring at the undersurface of the acromion. Glenohumeral joint space is maintained. SOFT TISSUE: Normal. IMPRESSION: Mild degenerative changes. No evidence of subluxation. DATA REPOSITORY: RADIATION DOSE DELIVERED:
[2024-01-28] MEDS: Triamcinolone 0.1% CR 80 GM TUBE TP ×2 (14:28→20:19)
--- NOTE | 2024-01-28 14:38 | PGE_ITS ---
Date of Service Date of service: 01/28/24 Time of Service: 14:53 Assessment and Plan Assessment and plan (1) Heart failure with reduced ejection fraction (HFrEF, <= 40%) and combined systolic and diastolic dysfunction: Start date: 01/27/24 Status: Chronic Assessment and plan: Progressive severe heart failure with reduced ejection fraction unclear whether it is ischemic or nonischemic. Denies any symptoms of chest pain or pressure but with multiple negative troponin I levels this admission there is no evidence for acute ACS. Will institute supportive care trying to reduce afterload as well as preload to treat biventricular failure. I want to use milrinone but we do not have it available at our institution. I will try low-dose nitroglycerin IV at 5 mcg/min but will not put an order for titration. I will start him on low-dose dobutamine at 2.5 mcg and again not put in for titration. For his ventricular arrhythmias he will be started on amiodarone. Begin Diuril 1000 mg IV every 12 hours and increase Lasix to 80 mg IV every 8 hours with serial monitoring of his electrolytes. Critical care time spent interviewing and examining the patient, reviewing studies, discussing case with patient's nurse and consulting physicians was 60 minutes (2) Anasarca: Status: Chronic Assessment and plan: As above (3) Urinary retention due to benign prostatic hyperplasia: Status: Chronic Assessment and plan: Continue Benedict catheter (4) Hypertension: Status: Chronic Assessment and plan: Does not appear that he was on any treatment regimen for his hypertension. Blood pressures are in the hospital been on the low end of normal. Qualifiers: Hypertension type: primary hypertension Qualified Code(s): I10 - Essential (primary) hypertension (5) Diabetes mellitus type 2 in obese: Status: Chronic Assessment and plan: Treated with basal/bolus insulin, monitor blood sugars ACHS (6) Schizophrenia: Status: Chronic Assessment and plan: Patient is not on specific therapy this does create problems with adequate history at times. He appears to have mild disease. He appears to be functional at this time. PCP will follow-up this problem. Qualifiers: Schizophrenia type: schizophreniform disorder Qualified Code(s): F20.81 - Schizophreniform disorder Subjective Subjective Interval history since last seen: Mr. Sanchez is here with acute exacerbation of his cardiomyopathy. Patient has had a known cardiomyopathy at least by our records as far back as 2019 when he was found to have LVH with reduced ejection fraction of 45% with diffuse hypokinesis. Most recent echocardiogram prior to today was from a year ago when his EF was down to 20% again with global severe hypokinesis and normal right ventricular size and right ventricular systolic function biatrial enlargement and trace of mitral regurgitation and trace of tricuspid regurgitation. He presented to the emergency department yesterday with progressive weight gain progressive bilateral leg edema and dyspnea he has had a 30 pound weight gain over the last month going from 155 pounds to 185 pounds. He has chronic kidney disease. Last night workup included chest 2 Views that showed no acute pulmonary edema which is surprising there was suggestion of inferior subluxation of the right humerus however we obtain a subsequent shoulder x-ray today that shows mild degenerative changes no subluxation. He was started on IV Lasix and so far has diuresed 3 L but still has significant ascites and peripheral edema. Echocardiogram was performed today and demonstrates a left ventricular ejection fraction 15 to 20% and surprisingly normal RV size but a moderate right ventricular systolic dysfunction with an estimated RVSP of 51 mm moderate mitral and moderate tricuspid regurgitation. Patient experienced an episode of 15 beat run of ventricular tachycardia for which she was asymptomatic. I explained to the patient that he has end-stage heart failure and short of a heart transplant his prognosis is less than 6 months to live. He is still full code and considering his options. For now ac utely I recommend transfer to the intensive care unit and beginning him on parenteral amiodarone therapy and increasing his diuresis including diarrheal and high-dose Lasix and start him on a low-dose dobutamine drip and low-dose nitroglycerin drip. Will try to improve his afterload reduction and preload reduction and hopefully the dobutamine does not exacerbate his arrhythmias. Consideration will be given for transfer to a tertiary care center if he is not improving. Exam Narrative Exam Narrative: Late middle-aged white male sitting up in his chair he appears to be pale he is not diaphoretic does not appear to be acutely short of breath not tachypneic able to talk in complete sentences No overt JVD while sitting up at 60 degrees but positive HJR Lungs are clear but diminished at the bases no rhonchi rales or wheezes Heart is irregularly irregular and review of the monitor shows he is in ventricular bigeminy Abdomen soft nontender nondistended positive fluid wave consistent with ascites Lower extremities with 3+ pitting edema Skin with multiple excoriations and plaques suggestive of psoriasis Objective Last Vital Signs Temp 36.1 C L 01/28/24 11:18 Pulse 72 01/28/24 11:18 Resp 16 01/28/24 11:18 BP 121/71 01/28/24 11:18 Pulse Ox 99 01/28/24 11:18 Laboratory Results - last 24 hr 01/27/24 01/27/24 01/27/24 17:53 19:06 22:20 WBC 6.61 RBC 3.78 L Hgb 11.5 L Hct 35.5 L MCV 94 MCH 30.4 MCHC 32.4 RDW 16.3 H Plt Count 144 MPV 12.2 H Immature Gran % 0.5 Neutrophils % 90.7 Lymphocytes % 5.3 Monocytes % 3.3 Eosinophils % 0.2 Basophils % 0.0 Nucleated RBC % 0.0 Absolute Neutrophils 6.00 Absolute Lymphocytes 0.35 L Absolute Monocytes 0.22 Absolute Eosinophils 0.01 Absolute Basophils 0.00 PT 12.1 H INR 1.2 H Sodium 146 H Potassium 4.7 Chloride 111 H Carbon Dioxide 23.4 Anion Gap 11.6 H BUN 63 H Creatinine 3.5 H Est GFR (CKD-EPI 2020) 18.12 Glucose 308 H Hemoglobin A1c 5.8 H Calcium 8.2 L Phosphorus Magnesium 1.9 Total Bilirubin 0.61 AST 33 ALT 75 H Alkaline Phosphatase 100 Troponin I < 50 < 50 NT-Pro-B Natriuret Pep > 92792 H Total Protein 5.8 L Albumin 3.0 L Urine Color Yellow Urine Clarity Clear Urine pH 5.5 Ur Specific [place] >= 1.030 H Urine Protein Negative Urine Ketones Negative Urine Blood Trace-intact H Urine Nitrite Positive H Urine Bilirubin Negative Urine Urobilinogen 0.2 Ur Leukocyte Esterase Trace H Urine RBC 0-2 Urine WBC 5-10 Ur Epithelial Cells Few Urine Crystals Negative Urine Bacteria Few Urine Casts Negative Urine Mucus Negative Ur Culture Indicated? Yes Urine Glucose Negative 01/27/24 01/28/24 23:20 05:35 WBC 7.15 RBC 3.77 L Hgb 11.3 L Hct 35.7 L MCV 95 MCH 30.0 MCHC 31.7 L RDW 16.4 H Plt Count 148 MPV 12.9 H Immature Gran % Neutrophils % Lymphocytes % Monocytes % Eosinophils % Basophils % Nucleated RBC % Absolute Neutrophils Absolute Lymphocytes Absolute Monocytes Absolute Eosinophils Absolute Basophils PT 11.6 H INR 1.2 H Sodium 146 H 144 Potassium 4.6 4.2 Chloride 111 H 109 H Carbon Dioxide 21.4 21.6 Anion Gap 13.6 H 13.4 H BUN 65 H 66 H Creatinine 3.4 H 3.2 H Est GFR (CKD-EPI 2020) 18.76 20.18 Glucose 242 H 175 H Hemoglobin A1c Calcium 8.1 L 8.6 Phosphorus 4.7 Magnesium 2.1 Total Bilirubin 0.56 AST 43 H ALT 89 H Alkaline Phosphatase 83 Troponin I < 50 NT-Pro-B Natriuret Pep Total Protein 5.9 L Albumin 3.0 L 3.3 L Urine Color Urine Clarity Urine pH Ur Specific [place] Urine Protein Urine Ketones Urine Blood Urine Nitrite Urine Bilirubin Urine Urobilinogen Ur Leukocyte Esterase Urine RBC Urine WBC Ur Epithelial Cells Urine Crystals Urine Bacteria Urine Casts Urine Mucus Ur Culture Indicated? Urine Glucose Time Spent with Patient Time Spent with Patient: >50 minutes Time was spent: preparing to see the patient(eg.review tests), obtaining and/or reviewing separately otained hiistory, ordering medications,tests, procedures, referring, communicating with other health career development consultant, indepentently interpreting results, counseling the patient and care coordination
--- NOTE | 2024-01-28 16:24 | NUR.NOTE ---
Nursing Note: RN to RN report given to Lety. Denied any questions, patient belongings all transferred to new ICU room.
[2024-01-28 16:44] LABS: Anion Gap 10.3 mmol/L (3-11); BUN 67 mg/dL (7-18); CO2 25.7 mmol/L (21.0-32.0); Calcium 8.6 mg/dL (8.5-10.1); Chloride 107 mmol/L (98-107); Glucose 135 mg/dL (74-106); Potassium 4.1 mmol/L (3.5-5.1); Sodium 143 mmol/L (136-145); Troponin I < 50 ng/L (< or =60)
[2024-01-28] MEDS: DOBUTamine 500 MG/250 ML BAG 6 MG IV (17:52)
[2024-01-28] MEDS: Amiodarone in Dextrose 360 MG/200 ML BAG 500 MG IV (18:00)
[2024-01-28] MEDS: diphenhydrAMINE 25 MG CAP PO (18:39)
[2024-01-28] MEDS: Amiodarone in Dextrose 360 MG/200 ML BAG 33.3 MG IV (21:27)
[2024-01-28] MEDS: Enoxaparin 30 MG/0.3 ML SYR SC (22:00)
[2024-01-28] MEDS: Insulin Aspart 300 UNITS/3 ML PEN SC (22:02)
[2024-01-28] MEDS: nitroGLYcerin in D5W 50 MG/250 ML BTL IV (22:41)
[2024-01-29] VITALS (58 sets, daily range): BP systolic 100–119; BP diastolic 60–87; PULSE 63–99; RESP 13–21; TEMP 36.4–37.1; O2SAT 93–99
[2024-01-29] MEDS: Amiodarone in Dextrose 360 MG/200 ML BAG 33.3 MG IV (03:28)
--- NOTE | 2024-01-29 04:19 | NUR.NOTE ---
0330 amiodarone gtt rate decreased to 0.5 mg or 16.7 gtts /min. per protocol. Kaden Son RN
[2024-01-29] MEDS: Furosemide 100 MG/10 ML VIAL 80 MG IVP ×3 (05:50→22:22)
[2024-01-29 07:28] LABS: Abs Immature Grans 0.02 10^3/uL (0.0-0.06); Absolute Basophil Count 0.04 10^3/uL (0.0-0.2); Absolute Eosinophil Count 0.92 10^3/uL (0.0-0.7); Absolute Lymphocyte Count 0.95 10^3/uL (1.2-3.4); Absolute Monocyte Count 0.45 10^3/uL (0.1-0.8); Absolute Neutrophil Count 4.56 10^3/uL (1.2-6.7); Basophils % 0.6 %; Eosinophils % 13.3 %; HCT 37.3 % (40.0-50.0); Immature Grans % 0.3 %; Lymphocytes % 13.7 %; MCH 29.9 pg (27.0-33.0); MCHC 32.2 % (32.0-36.0); MCV 93 fL (80-95); MPV 12.3 fL (8.0-11.0); Monocytes % 6.5 %; Neutrophils % 65.6 %; Platelet Count 127 10^3/uL (130-400); RBC 4.02 10^6/uL (4.36-5.78); RDW-SD 54.8 fL; WBC 6.94 10^3/uL (4.4-10.8)
[2024-01-29 07:37] LABS: ALT 72 U/L (16-63); AST 23 U/L (15-37); Albumin 2.9 g/dL (3.4-5.0); Alkaline Phosphatase 64 U/L (46-116); Anion Gap 9.8 mmol/L (3-11); BUN 71 mg/dL (7-18); Bilirubin, Total 0.65 mg/dL (0.2-1.0); CO2 27.2 mmol/L (21.0-32.0); CREATININE 3.1 mg/dL (0.70-1.30); Calcium 8.4 mg/dL (8.5-10.1); Chloride 105 mmol/L (98-107); Estimated GFR 20.96 (mL/min/1.73m2); Glucose 117 mg/dL (74-106); Magnesium 1.9 mg/dL (1.8-2.4); Potassium 3.8 mmol/L (3.5-5.1); Sodium 142 mmol/L (136-145); Total Protein 5.6 g/dL (6.4-8.2)
[2024-01-29] MEDS: Docusate Sodium 100 MG CAP PO (08:31)
[2024-01-29] MEDS: Ketoconazole 2% CREAM 15 GM TUBE TP (08:31)
[2024-01-29] MEDS: Lachydrin 12% LOTION 225 GM BTL TP (08:31)
[2024-01-29] MEDS: Finasteride 5 MG TAB PO (08:31)
[2024-01-29] MEDS: Normal Saline Flush 10 ML SYR IVP ×3 (08:33→22:22)
[2024-01-29] MEDS: Spironolactone 25 MG TAB PO (08:34)
[2024-01-29] MEDS: predniSONE 20 MG TAB PO (08:34)
[2024-01-29] MEDS: Triamcinolone 0.1% CR 80 GM TUBE TP ×3 (08:34→20:46)
--- NOTE | 2024-01-29 09:50 | PGE_ITS ---
Date of Service Date of service: 01/29/24 Time of Service: 09:51 Assessment and Plan Assessment and plan (1) Heart failure with reduced ejection fraction (HFrEF, <= 40%) and combined systolic and diastolic dysfunction: Start date: 01/27/24 Status: Chronic Assessment and plan: Progressive severe heart failure with reduced ejection fraction unclear whether it is ischemic or nonischemic. Denies any symptoms of chest pain or pressure but with multiple negative troponin I levels this admission there is no evidence for acute ACS. Continue supportive care with afterload reduction with nitroglycerin titrating to maintain systolic blood pressures above 100, MAP greater than 70 as well as inotropic support with dobutamine we will carefully titrate up to 5 mcg but no higher as long as he has no increased ectopy, continue aggressive diuresis with serial monitoring of his right-sided pressures with bedside POCUS. Patient should have referral to congestive heart failure clinic at [facility] upon discharge Critical care time spent interviewing and examining the patient, reviewing studies, discussing case with patient's nurse and consulting physicians was 60 minutes (2) Ventricular tachycardia: Status: Chronic Assessment and plan: Patient's had no further sustained runs of ventricular tachycardia. Yesterday he had an 11 beat run of VT for which she was asymptomatic still has some occasional PVCs and goes in and out of ventricular bigeminy. He is continuing on his amiodarone infusion when this is completed we will start him on 200 mg twice daily. He should be referred for an AICD device. (3) Anasarca: Status: Chronic Assessment and plan: As above (4) Urinary retention due to benign prostatic hyperplasia: Status: Chronic Assessment and plan: Continue Benedict catheter (5) Hypertension: Status: Chronic Assessment and plan: Does not appear that he was on any treatment regimen for his hypertension. Blood pressures are in the hospital been on the low end of normal. Qualifiers: Hypertension type: primary hypertension Qualified Code(s): I10 - Essential (primary) hypertension (6) Diabetes mellitus type 2 in obese: Status: Chronic Assessment and plan: Treated with basal/bolus insulin, monitor blood sugars ACHS (7) Schizophrenia: Status: Chronic Assessment and plan: Patient is not on specific therapy this does create problems with adequate history at times. He appears to have mild disease. He appears to be functional at this time. PCP will follow-up this problem. Qualifiers: Schizophrenia type: schizophreniform disorder Qualified Code(s): F20.81 - Schizophreniform disorder Subjective Subjective Interval history since last seen: Miguel denies an CP or dyspnea. He has lost 13 lbs since beginning diuretics and he has diuresed 5300 mL yesterday and 3500 mL since midnight. He remains on dobutamine at 2.5 mcg/kg/minute and NTG at 5 mcg/minute w/out any increase in his ventricular ectopy. He remains on amiodarone drip for his VT. Exam Narrative Exam Narrative: Miguel is alert and orient x 3 no acute distress able to talk in complete paragraphs without dyspnea. Lungs are clear to auscultation Heart is regular with soft systolic murmur grade 2 over the apex no thrill or heave Abdomen soft marked decrease in his ascites no palpable masses or bruits Lower extremities 2+ pitting edema but much improved, improved capillary refill Objective Last Vital Signs Temp 36.4 C L 01/29/24 09:19 Pulse 68 01/29/24 09:19 Resp 13 01/29/24 09:19 BP 105/67 01/29/24 09:19 Pulse Ox 93 01/29/24 09:19 Laboratory Results - last 24 hr 01/28/24 01/29/24 16:10 07:14 WBC 6.94 RBC 4.02 L Hgb 12.0 L Hct 37.3 L MCV 93 MCH 29.9 MCHC 32.2 RDW 16.0 H Plt Count 127 L MPV 12.3 H Immature Gran % 0.3 Neutrophils % 65.6 Lymphocytes % 13.7 Monocytes % 6.5 Eosinophils % 13.3 Basophils % 0.6 Nucleated RBC % 0.0 Absolute Neutrophils 4.56 Absolute Lymphocytes 0.95 L Absolute Monocytes 0.45 Absolute Eosinophils 0.92 H Absolute Basophils 0.04 Sodium 143 142 Potassium 4.1 3.8 Chloride 107 105 Carbon Dioxide 25.7 27.2 Anion Gap 10.3 9.8 BUN 67 H 71 H Creatinine 3.0 H 3.1 H Est GFR (CKD-EPI 2020) 21.80 20.96 Glucose 135 H 117 H Calcium 8.6 8.4 L Magnesium 2.0 1.9 Total Bilirubin 0.65 AST 23 ALT 72 H Alkaline Phosphatase 64 Troponin I < 50 Total Protein 5.6 L Albumin 2.9 L Time Spent with Patient Time Spent with Patient: >50 minutes Time was spent: preparing to see the patient(eg.review tests), ordering medications,tests, procedures, referring, communicating with other health child care attendant school, indepentently interpreting results, counseling the patient and care coordination
[2024-01-29] MEDS: hydrOXYzine HCL 10 MG TAB PO (10:57)
--- NOTE | 2024-01-29 10:58 | W.POCUS ---
Pocus Exam Limited Cardiac Exam DATE OF EXAM: 01/29/24 TIME OF EXAM: 09:58 REASON FOR EXAM: Congestive heart failure and Other (VEXUS evaluation) indication: CHF VISUALIZED STRUCTURES: four chambers, LVOT, aortic valve, mitral valve, Interventricular septum and IVC VIEW OBTAINED: Apical 4-Chamber, Parasternal long-axis, Parasternal short-axis and Subxiphoid PERTINENT FINDINGS/IMPRESSION: LV dysfunction :severe and RV dysfunction; no IVC inspiratory collapsability, No pericardial effusion, No plethoric IVC (IVC 1.37 cm, 32% inspiratory collapsability) and No RV dilation DIFFERENTIAL DIAGNOSES: hepatic venous pattern is S>D, portal venous pattern some pulsatility of 42%, renal venous pattern some pulsatility w/ S>D INCIDENTAL FINDINGS: In summary patient w/ severe LV , moderate RV dysfunction w/ modereate MR and moderate TR, estimated RVSP 40 cm, VEXUS grade I w/ normal hepatic venous pattern but mildly abnormal portal venous pattern w/ 42% pulsatility and mildly abnormal renal venous pattern w/ discontinuous S and D pattern Exam complete
[2024-01-29] MEDS: Insulin Aspart 300 UNITS/3 ML PEN SC ×3 (11:52→23:00)
[2024-01-29] MEDS: Amiodarone in Dextrose 360 MG/200 ML BAG 16.7 MG IV (12:36)
[2024-01-29] MEDS: cefTRIAXone 1 GM/50 ML BAG IVPB (13:24)
[2024-01-29] MEDS: Amiodarone 200 MG TAB PO (20:40)
[2024-01-29] MEDS: Enoxaparin 30 MG/0.3 ML SYR SC (22:23)
[2024-01-29 22:36] LABS: Magnesium 1.9 mg/dL (1.8-2.4); Potassium 4.3 mmol/L (3.5-5.1)
[2024-01-30] VITALS (38 sets, daily range): BP systolic 92–136; BP diastolic 63–86; PULSE 65–89; RESP 12–32; TEMP 36.5–36.8; O2SAT 98–99
[2024-01-30] MEDS: DOBUTamine 500 MG/250 ML BAG 6.225 MG IV (04:01)
[2024-01-30] MEDS: Furosemide 100 MG/10 ML VIAL 80 MG IVP (05:54)
[2024-01-30 05:57] LABS: Abs Immature Grans 0.03 10^3/uL (0.0-0.06); Absolute Basophil Count 0.01 10^3/uL (0.0-0.2); Absolute Eosinophil Count 0.31 10^3/uL (0.0-0.7); Absolute Lymphocyte Count 0.67 10^3/uL (1.2-3.4); Absolute Monocyte Count 0.63 10^3/uL (0.1-0.8); Absolute Neutrophil Count 7.74 10^3/uL (1.2-6.7); Basophils % 0.1 %; Eosinophils % 3.3 %; HCT 39.8 % (40.0-50.0); HGB 13.4 g/dL (13.5-17.5); Immature Grans % 0.3 %; Lymphocytes % 7.1 %; MCH 30.1 pg (27.0-33.0); MCHC 33.7 % (32.0-36.0); MCV 89 fL (80-95); MPV 12.5 fL (8.0-11.0); Monocytes % 6.7 %; Neutrophils % 82.5 %; Platelet Count 144 10^3/uL (130-400); RBC 4.45 10^6/uL (4.36-5.78); RDW 15.9 % (11.8-14.1); RDW-SD 52.3 fL; WBC 9.39 10^3/uL (4.4-10.8)
[2024-01-30 09:05] LABS: Anion Gap 9.3 mmol/L (3-11); BUN 79 mg/dL (7-18); CO2 28.7 mmol/L (21.0-32.0); CREATININE 3.3 mg/dL (0.70-1.30); Calcium 9.1 mg/dL (8.5-10.1); Chloride 101 mmol/L (98-107); Estimated GFR 19.44 (mL/min/1.73m2); Glucose 148 mg/dL (74-106); Potassium 4.1 mmol/L (3.5-5.1); Sodium 139 mmol/L (136-145)
--- NOTE | 2024-01-30 09:08 | PGE_ITS ---
Date of Service Date of service: 01/30/24 Time of Service: 09:08 Assessment and Plan Assessment and plan (1) Heart failure with reduced ejection fraction (HFrEF, <= 40%) and combined systolic and diastolic dysfunction: Start date: 01/27/24 Status: Chronic Assessment and plan: -Progressive severe heart failure with reduced ejection fraction unclear whether it is ischemic or nonischemic. -Denies any symptoms of chest pain or pressure but with multiple negative troponin I levels this admission there is no evidence for acute ACS. -had been on IV nitroglycerin, dobutamine, and lasix 80mg Q6hr -is now about 11L net negative and down about 25lbs -discontinue IV nitro, dobutamine and lasix -start PO lasix 80mg BID this afternoon -continue to monitor UOP and daily weights (2) Ventricular tachycardia: Status: Chronic Assessment and plan: -Patient's had no further sustained runs of ventricular tachycardia. -01/27 he had an 11 beat run of VT for which she was asymptomatic still has some occasional PVCs and goes in and out of ventricular bigeminy. -completed amiodarone infusion when this is completed we will start him on 200 mg twice daily. -will be referred for an AICD device at discharge (3) Anasarca: Status: Chronic Assessment and plan: -As above (4) Urinary retention due to benign prostatic hyperplasia: Status: Chronic Assessment and plan: -Continue Benedict catheter (5) Hypertension: Status: Chronic Assessment and plan: -Does not appear that he was on any treatment regimen for his hypertension. -Blood pressures are in the hospital been on the low end of normal. Qualifiers: Hypertension type: primary hypertension Qualified Code(s): I10 - Essential (primary) hypertension (6) Diabetes mellitus type 2 in obese: Status: Chronic Assessment and plan: -Treated with basal/bolus insulin, monitor blood sugars ACHS (7) Schizophrenia: Status: Chronic Assessment and plan: -Patient is not on specific therapy this does create problems with adequate history at times. -He appears to have mild disease. -He appears to be functional at this time. PC -P will follow-up this problem. Qualifiers: Schizophrenia type: schizophreniform disorder Qualified Code(s): F20.81 - Schizophreniform disorder Subjective Subjective Interval history since last seen: Patient states that he is feeling better as far as his heart and lungs, but that his itching feels worse. Otherwise he has no other complaints or concerns at this time. Exam Narrative Exam Narrative: well appearing gentleman laying in bed in no acute distress, AOx4, heart RRR, lungs CTAB, abdomen soft, non-tender, non-distended, no peripheral edema noted, significant diffuse areas of excoriations and erythema in various stages of healing Objective Last Vital Signs Temp 97.9 F 01/30/24 06:00 Pulse 71 01/30/24 06:00 Resp 12 01/30/24 06:00 BP 131/70 01/30/24 04:46 Pulse Ox 99 01/30/24 04:46 Laboratory Results - last 24 hr 01/29/24 01/30/24 22:09 05:35 WBC 9.39 RBC 4.45 Hgb 13.4 L Hct 39.8 L MCV 89 D MCH 30.1 MCHC 33.7 RDW 15.9 H Plt Count 144 MPV 12.5 H Immature Gran % 0.3 Neutrophils % 82.5 Lymphocytes % 7.1 Monocytes % 6.7 Eosinophils % 3.3 Basophils % 0.1 Nucleated RBC % 0.0 Absolute Neutrophils 7.74 H Absolute Lymphocytes 0.67 L Absolute Monocytes 0.63 Absolute Eosinophils 0.31 Absolute Basophils 0.01 Sodium 139 Potassium 4.3 4.1 Chloride 101 Carbon Dioxide 28.7 Anion Gap 9.3 BUN 79 H Creatinine 3.3 H Est GFR (CKD-EPI 2020) 19.44 Glucose 148 H Calcium 9.1 Magnesium 1.9 Time Spent with Patient Time Spent with Patient: >50 minutes Time was spent: preparing to see the patient(eg.review tests), obtaining and/or reviewing separately otained hiistory, ordering medications,tests, procedures, referring, communicating with other health healthcare science specialist, indepentently interpreting results, counseling the patient and care coordination
[2024-01-30] MEDS: Amiodarone 200 MG TAB PO ×2 (09:17→19:57)
[2024-01-30] MEDS: Finasteride 5 MG TAB PO (09:18)
[2024-01-30] MEDS: Normal Saline Flush 10 ML SYR IVP ×2 (09:18→19:31)
[2024-01-30] MEDS: Spironolactone 25 MG TAB PO (09:20)
[2024-01-30] MEDS: predniSONE 20 MG TAB PO (09:20)
[2024-01-30] MEDS: Insulin Aspart 300 UNITS/3 ML PEN SC ×3 (12:11→22:02)
[2024-01-30] MEDS: cefTRIAXone 1 GM/50 ML BAG IVPB (14:06)
[2024-01-30] MEDS: Furosemide 80 MG TAB PO (17:12)
[2024-01-30] MEDS: Triamcinolone 0.1% CR 80 GM TUBE TP (19:31)
[2024-01-30] MEDS: Enoxaparin 30 MG/0.3 ML SYR SC (22:02)
[2024-01-31] VITALS (10 sets, daily range): BP systolic 110–125; BP diastolic 69–82; PULSE 63–85; RESP 14–18; TEMP 36–37; O2SAT 95–100
[2024-01-31 06:55] LABS: HCT 38.5 % (40.0-50.0); HGB 13.2 g/dL (13.5-17.5); MCH 30.1 pg (27.0-33.0); MCHC 34.3 % (32.0-36.0); MCV 88 fL (80-95); MPV 12.8 fL (8.0-11.0); Platelet Count 152 10^3/uL (130-400); RBC 4.38 10^6/uL (4.36-5.78); RDW 15.7 % (11.8-14.1); RDW-SD 50.4 fL; WBC 9.24 10^3/uL (4.4-10.8)
[2024-01-31 07:19] LABS: Anion Gap 10.8 mmol/L (3-11); CO2 29.2 mmol/L (21.0-32.0); CREATININE 3.5 mg/dL (0.70-1.30); Calcium 8.9 mg/dL (8.5-10.1); Chloride 99 mmol/L (98-107); Estimated GFR 18.12 (mL/min/1.73m2); Glucose 123 mg/dL (74-106); Potassium 4.1 mmol/L (3.5-5.1); Sodium 139 mmol/L (136-145)
[2024-01-31 07:28] LABS: BUN 92 mg/dL (7-18)
[2024-01-31] MEDS: predniSONE 20 MG TAB PO (08:50)
[2024-01-31] MEDS: Spironolactone 25 MG TAB PO (08:50)
[2024-01-31] MEDS: Amiodarone 200 MG TAB PO ×2 (08:50→20:54)
[2024-01-31] MEDS: Omeprazole 20 MG CAPCR 40 MG PO ×2 (08:50→20:55)
[2024-01-31] MEDS: Normal Saline Flush 10 ML SYR IVP ×2 (08:51→20:57)
[2024-01-31] MEDS: Finasteride 5 MG TAB PO (08:51)
[2024-01-31] MEDS: Furosemide 80 MG TAB PO ×2 (08:52→17:04)
[2024-01-31] MEDS: Triamcinolone 0.1% CR 80 GM TUBE TP ×3 (08:54→20:58)
--- NOTE | 2024-01-31 09:45 | W.PC.ACHO ---
Registration Status: Primary Language: Preferred Language: ED Information & Data Chief Complaint GenMedical 01/27/24 17:29 Triage Note pt with ongoing skin 01/27/24 15:46 condition and hive ongoing for months, suffering per pt , using 'all the creams', mult areas of open bleeding, new/old bruises, recent fluid retention with weight gain of 30ls in a month, large fluid pannus, hx of urinary retention with alfaro , hx of CHF, unable to move well, SOB/OROURKE, mult complaints, sent by PCP for possible admission for CHF/ fluid build up. Medical / Surgical History (Last Reviewed 01/27/24 @ 22:52 by Christo Conner MD) CHF (congestive heart failure) Anemia Acute exacerbation of congestive heart failure Panic attacks High cholesterol Eczema Depression CAP (community acquired pneumonia) Acute dyspnea Asthma exacerbation in COPD CHF exacerbation (Last Reviewed 01/27/24 @ 22:52 by Christo Conner MD) Hx of hernia repair Most Recent Vital Signs Temperature 36.6 C 01/31/24 09:17 Temperature Source Temporal Artery Scan 01/31/24 09:17 Pulse 67 01/31/24 08:12 Pulse Rhythm Regular 01/31/24 09:02 Pulse 69 01/31/24 08:12 Respiratory Rate 17 01/31/24 08:12 Respiratory Effort Normal, Non-Labored 01/31/24 09:02 Respiratory Depth Normal 01/31/24 09:02 Respiratory Pattern Normal 01/31/24 09:02 Blood Pressure 117/82 01/31/24 08:12 Blood Pressure Mean 92 01/31/24 08:12 Blood Pressure Position Supine 01/30/24 20:12 Pulse Oximetry 100 01/31/24 08:12 Oxygen Delivery Method Room Air 01/31/24 03:42 Oxygen Flow Rate 0 01/31/24 03:42 Pain Level 0 01/31/24 00:00 Allergies No Known Allergies Allergy (Unverified 01/27/24 15:42) Precautions Isolation Standard precaution 01/27/24 15:49 Active Medications Generic Name Dose Route Start Last Admin Trade Name Freq PRN Reason Stop Dose Admin Amiodarone HCl 200 mg 01/29/24 20:00 01/31/24 08:50 Amiodarone 200 Mg Tab PO 200 mg BID JAMAL Administration Ammonium Lactate 1 gm 01/28/24 08:30 01/31/24 08:55 Lachydrin 12% Lotion 225 Gm Btl TP Not Given BID COUNT INCLUDES THE [facility] Benzonatate 100 mg 01/28/24 08:30 01/31/24 08:52 Benzonatate 100 Mg Cap PO Not Given TID COUNT INCLUDES THE [facility] Docusate Sodium 100 mg 01/28/24 08:30 01/31/24 08:52 Docusate Sodium 100 Mg Cap PO Not Given BID COUNT INCLUDES THE [facility] Enoxaparin Sodium 30 mg 01/27/24 22:00 01/30/24 22:02 Enoxaparin 30 Mg/0.3 Ml Syr SC 30 mg Q24H JAMAL Administration Finasteride 5 mg 01/28/24 08:30 01/31/24 08:51 Finasteride 5 Mg Tab PO 5 mg DAILY COUNT INCLUDES THE [facility] Administration Furosemide 80 mg 01/30/24 08:30 01/31/24 08:52 Furosemide 80 Mg Tab PO 80 mg BID DIURETIC COUNT INCLUDES THE [facility] Administration Ceftriaxone Sodium/Dextrose 1 gm in 50 mls @ 100 mls/hr 01/29/24 14:00 01/30/24 22:03 Rocephin IVPB Infused Q24H COUNT INCLUDES THE [facility] Infusion Insulin Aspart 0 units 01/27/24 22:00 01/31/24 08:53 Insulin Aspart 300 Units/3 Ml Pen SC Not Given 0800,1200,1700,2200 COUNT INCLUDES THE [facility] Protocol Ketoconazole 1 gm 01/28/24 08:30 01/31/24 08:55 Ketoconazole 2% Cream 15 Gm Tube TP Not Given DAILY COUNT INCLUDES THE [facility] Omeprazole 40 mg 01/28/24 07:30 01/31/24 08:50 Omeprazole 20 Mg Capcr PO 40 mg BID@0730,2000 JAMAL Administration Prednisone 20 mg 01/29/24 08:30 01/31/24 08:50 Prednisone 20 Mg Tab PO 20 mg DAILY JAMAL Administration Sodium Chloride 0 ml 01/27/24 17:27 01/29/24 22:22 Normal Saline Flush 10 Ml Syr IVP 20 ml PRN PRN Administration Sodium Chloride 0 ml 01/27/24 20:00 01/31/24 08:51 Normal Saline Flush 10 Ml Syr IVP 10 ml BID JAMAL Administration Spironolactone 25 mg 01/29/24 08:30 01/31/24 08:50 Spironolactone 25 Mg Tab PO 25 mg DAILY JAMAL Administration Triamcinolone Acetonide 1 gm 01/28/24 14:00 01/31/24 08:54 Triamcinolone 0.1% Cr 80 Gm Tube TP 1 applic TID JAMAL Administration IV IV Catheter Type [Right Wrist] Saline Lock IV Catheter Type [Antecubital] Peripheral IV IV Catheter Type [Right Hand] Saline Lock IV Catheter Type [Left Forearm Saline Lock ] IV Catheter Gauge [Right Wrist 22 ] IV Catheter Gauge [Antecubital 20 ] IV Catheter Gauge [Right Hand] 20 IV Catheter Gauge [Left 18 Forearm] Diagnostics 01/31/24 Range/Units 05:36 WBC 9.24 (4.4-10.8) 10^3/uL RBC 4.38 (4.36-5.78) 10^6/uL Hgb 13.2 L (13.5-17.5) g/dL Hct 38.5 L (40.0-50.0) % MCV 88 (80-95) fL MCH 30.1 (27.0-33.0) pg MCHC 34.3 (32.0-36.0) % RDW 15.7 H (11.8-14.1) % Plt Count 152 (130-400) 10^3/uL MPV 12.8 H (8.0-11.0) fL Sodium 139 (136-145) mmol/L Potassium 4.1 (3.5-5.1) mmol/L Chloride 99 (98-107) mmol/L Carbon Dioxide 29.2 (21.0-32.0) mmol/L Anion Gap 10.8 (3-11) mmol/L BUN 92 H* (7-18) mg/dL Creatinine 3.5 H (0.70-1.30) mg/dL Est GFR (CKD-EPI 2020) 18.12 (mL/min/1.73m2) Glucose 123 H (74-106) mg/dL Calcium 8.9 (8.5-10.1) mg/dL 01/29/24 13:32 Blood Culture - Preliminary Blood NO GROWTH 24 HOURS 01/29/24 13:25 Blood Culture - Preliminary Blood NO GROWTH 24 HOURS 01/27/24 19:06 Urine Culture - Final Urine - Reflex from Ua Citrobacter Braakii Gram Positive Lisa,Mixed [id number] Documentation Fingerstick Glucose Start: 01/27/24 20:03 Freq: .ACHS Status: Active Protocol: Activity Type Activity Date Activity User E-sign Co-sign Detail Recorded Client Recorded Date Recorded By Document 01/31/24 07:22 PADILLATramaine ALEXANDREROSALINDA(3) [id number]-BG05 01/31/24 07:22 PADILLATramaine ISBELL(4) Intake and Output - 24 Hour Total 01/27/24 15:35 thru 01/31/24 09:21 Intake Total 2290.195 Output Total 18095 Balance -89257.805 Weight 71 kg Intake: IV 1329.195 Oral 961 Output: Urine 09133 Other: Urine Color Pale Yellow Urine Appearance Clear Comment Alfaro Stool Size Small Stool Characteristics Soft Formed [place] Risk Assessment History of Falls No History 01/28/24 17:17 Contributing Factors Impairments 01/28/24 17:17 Ambulatory Aids Uses ambulatory device + 01/28/24 17:17 Tubes/Lines W/no contributing factors 01/28/24 17:17 Gait Evaluation No gait disturbance 01/28/24 17:17 Cognition No cognitive impairment 01/28/24 17:17 Fall Total Score 43 01/28/24 17:17 Level of Risk Moderate Risk 01/28/24 17:17 Problems (Last Reviewed 01/27/24 @ 22:52 by Christo Conner MD) Ventricular tachycardia (Chronic) Edema (Acute) CLEM (acute kidney injury) (Acute) Hypernatremia (Acute) Anasarca (Chronic) Heart failure with reduced ejection fraction (HFrEF, <= 40%) and combined systolic and diastolic dysfunction (Chronic) Urinary retention due to benign prostatic hyperplasia (Chronic) CLEM (acute kidney injury) (Acute) Heart failure with reduced ejection fraction (Chronic) Hypertension (Chronic) Schizophrenia (Chronic) Diabetes mellitus type 2 in obese (Chronic) Notes 01/29/24 04:19 Nursing Notes by Annabelle Son 0330 amiodarone gtt rate decreased to 0.5 mg or 16.7 gtts /min. per protocol. Kaden Son RN Initialized on 01/29/24 04:19 - END OF NOTE 01/28/24 16:24 Nursing Notes by Kenyatta Perez Nursing Note: RN to RN report given to Lety. Denied any questions, patient belongings all transferred to new ICU room. Initialized on 01/28/24 16:24 - END OF NOTE v v v v v v v v v Sending and/or Receiving Nurses: Please use comment section below to note any information pertinent to the patient hand-off not included above. Information / Comments: Patient received from SHOTGUN SHELL ASSEMBLY MACHINE ADJUSTER Lety, handed report. Pt is AO X 3. with alfaro . scattered rashes all over the body. Has history of schizo. Oriented to room 217. call lights at reach. Report received from:
[2024-01-31] MEDS: Insulin Aspart 300 UNITS/3 ML PEN SC ×3 (11:59→20:57)
--- NOTE | 2024-01-31 12:10 | PGE_ITS ---
Date of Service Date of service: 01/31/24 Time of Service: 12:10 Assessment and Plan Assessment and plan (1) Heart failure with reduced ejection fraction (HFrEF, <= 40%) and combined systolic and diastolic dysfunction: Start date: 01/27/24 Status: Chronic Assessment and plan: -Progressive severe heart failure with reduced ejection fraction unclear whether it is ischemic or nonischemic. -Denies any symptoms of chest pain or pressure but with multiple negative troponin I levels this admission there is no evidence for acute ACS. -had been on IV nitroglycerin, dobutamine, and lasix 80mg Q6hr -is now about 11L net negative and down about 26lbs -discontinue IV nitro, dobutamine and lasix -start PO lasix 80mg BID this afternoon -continue to monitor UOP and daily weights (2) Ventricular tachycardia: Status: Chronic Assessment and plan: -Patient's had no further sustained runs of ventricular tachycardia. -01/27 he had an 11 beat run of VT for which she was asymptomatic still has some occasional PVCs and goes in and out of ventricular bigeminy. -completed amiodarone infusion when this is completed we will start him on 200 mg twice daily. -will be referred for an AICD device at discharge (3) Anasarca: Status: Chronic Assessment and plan: -As above (4) Urinary retention due to benign prostatic hyperplasia: Status: Chronic Assessment and plan: -Continue Benedict catheter (5) Hypertension: Status: Chronic Assessment and plan: -Does not appear that he was on any treatment regimen for his hypertension. -Blood pressures are in the hospital been on the low end of normal. Qualifiers: Hypertension type: primary hypertension Qualified Code(s): I10 - Essential (primary) hypertension (6) Diabetes mellitus type 2 in obese: Status: Chronic Assessment and plan: -Treated with basal/bolus insulin, monitor blood sugars ACHS (7) Schizophrenia: Status: Chronic Assessment and plan: -Patient is not on specific therapy this does create problems with adequate history at times. -He appears to have mild disease. -He appears to be functional at this time. PC -P will follow-up this problem. Qualifiers: Schizophrenia type: schizophreniform disorder Qualified Code(s): F20.81 - Schizophreniform disorder Subjective Subjective Interval history since last seen: Patient states that he is doing well today and is encouraged that he is continu ing to diurese with PO lasix. Exam Narrative Exam Narrative: well appearing gentleman laying in bed in no acute distress, AOx4, heart RRR, lungs CTAB, abdomen soft, non-tender, non-distended, no peripheral edema noted, significant diffuse areas of excoriations and erythema in various stages of hea ling Objective Last Vital Signs Temp 97.0 F L 01/31/24 11:21 Pulse 63 01/31/24 11:21 Resp 16 01/31/24 11:21 BP 113/77 01/31/24 11:21 Pulse Ox 100 01/31/24 11:21 Laboratory Results - last 24 hr 01/31/24 05:36 WBC 9.24 RBC 4.38 Hgb 13.2 L Hct 38.5 L MCV 88 MCH 30.1 MCHC 34.3 RDW 15.7 H Plt Count 152 MPV 12.8 H Sodium 139 Potassium 4.1 Chloride 99 Carbon Dioxide 29.2 Anion Gap 10.8 BUN 92 H* Creatinine 3.5 H Est GFR (CKD-EPI 2020) 18.12 Glucose 123 H Calcium 8.9 Time Spent with Patient Time Spent with Patient: >50 minutes Time was spent: preparing to see the patient(eg.review tests), obtaining and/or reviewing separately otained hiistory, ordering medications,tests, procedures, referring, communicating with other health child care counselor, indepentently interpreting results, counseling the patient and care coordination
[2024-01-31] MEDS: cefTRIAXone 1 GM/50 ML BAG IVPB (13:40)
--- NOTE | 2024-01-31 18:42 | CMPROGNOTE_ITS ---
Date of service: 01/31/24 Time of Service: 18:42 Care Management Progress Note Progress Note Text Progress Note Text: Miguel was lying in bed when CM met with him. He stated that he was in the ICU through the weekend, and was transitioned to med/surge today. He agrees with , that he is making improvements, and reports that he is feeling better today. He stated that when he is discharged, he will likely require RCT transport, coordinated by CM. CM will continue to follow. Discharge Potential Discharge Needs: PCP F/U Appt Anticipated Barriers to Discharge: None Identified Patient/Family Education Needs: Review discharge instructions, discuss Ask Me Three Transportation: [facility] Plan: Anticipate Miguel will return home with a resumption of his community supports, including GAS OPERATOR. He will transport via private vehicle by [facility] vs [facility] staff. He will follow up with his PCP and his discharge plan of care. CM will continue to follow. SDOH(Care Management) Screening Will the Patient Participate in the Screening?: Yes Do you worry about having a steady place to live?: no In the past 12 months, have you had to go without electric, gas, oil or water in your home?: no Have you or anyone in your house had to go without enough food to eat?: no Has lack of transportation kept you from medical appointments or from doing things needed for daily living?: yes Has anyone in your support network made you feel unsafe for any reason?: yes Social Determinants of Health Comments(SDOH Details): Pt describes concerns about others in the apartment building putting fidelina in his laundry; admits potential for this to be paranoia. Health Related Social Needs Health related social needs: transportation insecurity(Z59.82) and problem related to primary support group(Z63.9)
[2024-01-31] MEDS: Benzonatate 100 MG CAP PO (20:55)
[2024-01-31] MEDS: Docusate Sodium 100 MG CAP PO (20:55)
[2024-01-31] MEDS: Lachydrin 12% LOTION 225 GM BTL TP (20:56)
[2024-01-31] MEDS: Enoxaparin 30 MG/0.3 ML SYR SC (21:44)
[2024-02-01 03:59] VITALS: BP 127/73; PULSE 77; RESP 16; TEMP 36.4; O2SAT 98
[2024-02-01 07:21] LABS: HCT 40.3 % (40.0-50.0); HGB 13.2 g/dL (13.5-17.5); MCH 29.7 pg (27.0-33.0); MCHC 32.8 % (32.0-36.0); MCV 91 fL (80-95); MPV 12.6 fL (8.0-11.0); Platelet Count 148 10^3/uL (130-400); RBC 4.44 10^6/uL (4.36-5.78); RDW 15.6 % (11.8-14.1); RDW-SD 51.7 fL; WBC 10.05 10^3/uL (4.4-10.8)
[2024-02-01 07:40] LABS: Anion Gap 8.3 mmol/L (3-11); CO2 30.7 mmol/L (21.0-32.0); Calcium 8.9 mg/dL (8.5-10.1); Chloride 101 mmol/L (98-107); Estimated GFR 17.52 (mL/min/1.73m2); Glucose 134 mg/dL (74-106); Potassium 4.3 mmol/L (3.5-5.1); Sodium 140 mmol/L (136-145)
[2024-02-01 07:42] LABS: BUN 101 mg/dL (7-18); CREATININE 3.6 mg/dL (0.70-1.30)
[2024-02-01 07:48] VITALS: BP 121/86; PULSE 68; RESP 17; TEMP 36.4; O2SAT 97
[2024-02-01] MEDS: Amiodarone 200 MG TAB PO ×2 (09:04→19:31)
[2024-02-01] MEDS: Finasteride 5 MG TAB PO (09:04)
[2024-02-01] MEDS: Spironolactone 25 MG TAB PO (09:04)
[2024-02-01] MEDS: Furosemide 80 MG TAB PO ×2 (09:04→15:17)
[2024-02-01] MEDS: predniSONE 20 MG TAB PO (09:05)
[2024-02-01] MEDS: Normal Saline Flush 10 ML SYR IVP ×2 (09:06→19:31)
[2024-02-01] MEDS: Triamcinolone 0.1% CR 80 GM TUBE TP ×2 (09:15→19:32)
--- NOTE | 2024-02-01 09:58 | PGE_ITS ---
Date of Service Date of service: 02/01/24 Time of Service: 09:58 Assessment and Plan Assessment and plan (1) Heart failure with reduced ejection fraction (HFrEF, <= 40%) and combined systolic and diastolic dysfunction: Start date: 01/27/24 Status: Chronic Assessment and plan: -Progressive severe heart failure with reduced ejection fraction unclear whether it is ischemic or nonischemic. -Denies any symptoms of chest pain or pressure but with multiple negative troponin I levels this admission there is no evidence for acute ACS. -had been on IV nitroglycerin, dobutamine, and lasix 80mg Q6hr -is now about 17.5L net negative and down about 28lbs -discontinue IV nitro, dobutamine and lasix -start PO lasix 80mg BID this afternoon -continue to monitor UOP and daily weights (2) Ventricular tachycardia: Status: Chronic Assessment and plan: -Patient's had no further sustained runs of ventricular tachycardia. -01/27 he had an 11 beat run of VT for which she was asymptomatic still has some occasional PVCs and goes in and out of ventricular bigeminy. -completed amiodarone infusion when this is completed we will start him on 200 mg twice daily. -will be referred for an AICD device at discharge (3) Anasarca: Status: Chronic Assessment and plan: -As above (4) Urinary retention due to benign prostatic hyperplasia: Status: Chronic Assessment and plan: -Continue Benedict catheter (5) Hypertension: Status: Chronic Assessment and plan: -Does not appear that he was on any treatment regimen for his hypertension. -Blood pressures are in the hospital been on the low end of normal. Qualifiers: Hypertension type: primary hypertension Qualified Code(s): I10 - Essential (primary) hypertension (6) Diabetes mellitus type 2 in obese: Status: Chronic Assessment and plan: -Treated with basal/bolus insulin, monitor blood sugars ACHS (7) Schizophrenia: Status: Chronic Assessment and plan: -Patient is not on specific therapy this does create problems with adequate history at times. -He appears to have mild disease. -He appears to be functional at this time. -PCP will follow-up this problem. Qualifiers: Schizophrenia type: schizophreniform disorder Qualified Code(s): F20.81 - Schizophreniform disorder Subjective Subjective Interval history since last seen: Patient states that he is doing well today and is looking forward to working with PT today. Exam Narrative Exam Narrative: well appearing gentleman laying in bed in no acute distress, AOx4, heart RRR, lungs CTAB, abdomen soft, non-tender, non-distended, no peripheral edema noted, significant diffuse areas of excoriations and erythema in various stages of healing Objective Last Vital Signs Temp 97.5 F L 02/01/24 07:48 Pulse 68 02/01/24 07:48 Resp 17 02/01/24 07:48 BP 121/86 02/01/24 07:48 Pulse Ox 97 02/01/24 07:48 Laboratory Results - last 24 hr 02/01/24 06:30 WBC 10.05 RBC 4.44 Hgb 13.2 L Hct 40.3 MCV 91 MCH 29.7 MCHC 32.8 RDW 15.6 H Plt Count 148 MPV 12.6 H Sodium 140 Potassium 4.3 Chloride 101 Carbon Dioxide 30.7 Anion Gap 8.3 BUN 101 H* Creatinine 3.6 H* Est GFR (CKD-EPI 2020) 17.52 Glucose 134 H Calcium 8.9 Time Spent with Patient Time Spent with Patient: >50 minutes Time was spent: preparing to see the patient(eg.review tests), obtaining and/or reviewing separately otained hiistory, ordering medications,tests, procedures, referring, communicating with other health clinical care coordinator, indepentently interpreting results, counseling the patient and care coordination
--- NOTE | 2024-02-01 10:18 | IN_ITS ---
PT Notes Visit Reasons: CHF exacerbation, CLEM Inpatient Physical Therapy Evaluation Date: 02/01/2024 Referring Doctor: Aaron Membreno PT Orders: PT CONSULT: PT evaluation Precautions: Alfaro, IV lines, telemetry Patient Profile/Admitting Diagnosis: Miguel is a 68yo male presented to ED on 01/27/24 with increased swelling , OROURKE and weight gain of ~30 #. Pt with elevated creatinine level and mild hyponatremia. He was DX of Acute kindney Injury ; Heart failure and began IV diuretics which were changed to po on 01/31/24. He also has a raised rash entire body. PMHX: Schizophrenic, DM type II, HTN, Urinary retention, BPH Social History/Home Situation: lives alone Apt. elevator to enter. Independent ADLs, Independent ambulation reports he uses a small shopping cart to ambulate within his home to transport items,Does not drive,Has community services for tr ansportation for appointments and shopping. Current Functional Limitations: impaired functional activity tolerance Equipment Owned/DME: shopping cart Subjective: He reports he has had the rash for a long time. Objective: General Observation: Miguel presented supine in bed with telemetry in place, alfaro catheter to bedside drainage bag and rash to entire body. Pt is scratching. Mental Status: A+ Ox 4 Pain: denies Vital Signs: stable ROM: Right Upper Extremity: WNL Left Upper Extremity: Within Normal limits (WNL) Right Lower Extremity: WFL ankle to neutral Left Lower Extremity: WFL ankle to neutral Strength: grossly 4/5 BUE , hips 4-/5 knees: 4-/5 ankle 4-/5 Sensation: intact to light touch , deep pressure Bed Mobility/Transfers: Min A supine to sit, SBA sit to supine , SBA transfers Gait: amb SBA with RW 150 feet with 3 turns reciprocal pattern , foot flat at weight acceptance and early heel off Balance: Static Sitting: Normal Dynamic Sitting: Normal Static Standing: Normal Dynamic Standing: good Special Tests: Mobility Limitations Standardized Measure [facility] AM-P AC 6 clicks Basic Mobility Inpatient Short Form: Raw Score: 19 Standardized Score: [] CMS Score: 41.77% Informed Consent/Education: Patient instructed in purpose of PT consult and plan of care. Assessment: Patient is a 68 year old male referred to physical therapy services with the diagnosis of CLEM ; heart failure. Patient presents with clinical signs and symptoms consistent with heart failure, as demonstrated by the following impairment level findings: impaired activity tolerance with OROURKE, reduced strength, impaired B ankle ROM. Impairments are contributing to the following functional limitations: AMPAC score , ambulation with device as pt utilizes a shopping cart for support to transport items within his home. He demonstrates limited ability to ambulate without AD . Patient is assessed as a [X ]Low 85670 [] Moderate 18654 [] High 51592 complexity based on the following: History: [X] Examination: [X] Presentation: [X] Decision Making: [X] Goals: Goals X1 week 1. Supine-Sit independent 2. Sit-Supine Independent 3. Sit-Stand Independent 4. Stand-Sit Independent 5. Bed-Chair Mod I with device 6. Chair-Bed Mod I with device 7. Gait Mod I with RW >250 feet including on/off elevator 8. Stairs NA 9. Independent with home exercise program 10. Balance Plan of Care/Treatment Plan: 1-2x/day, 7 days/week x 1 week. Plan of care has been reviewed with the COSMETICS MACHINE OPERATOR providing the service under Physical Therapy direction. Initiate Physical Therapy intervention for strengthening, bed mobility, transfers, gait, stairs, balance training, use of assistive device. DISCHARGE RECOMMENDATIONS: [] [] Home with no services [] [X] Home with prior services [] Home with outpatient PT [] [] SNF for continued rehabilitation [] [] Senior Living Care [] [] SNF versus LTC based on ability to participate and progress [] TREATMENT CODE/TIME: 54317e1 low complexity/ 48 mins Please sign an return this page within 30 days if you agree with the above POC. Thank you! Physician Signature Date [facility]
[2024-02-01 11:34] VITALS: BP 114/74; PULSE 65; RESP 18; TEMP 36.7; O2SAT 98
[2024-02-01] MEDS: cefTRIAXone 1 GM/50 ML BAG IVPB (13:42)
[2024-02-01 15:04] VITALS: BP 115/79; PULSE 73; RESP 18; TEMP 37.1; O2SAT 99
[2024-02-01] MEDS: Insulin Aspart 300 UNITS/3 ML PEN SC (16:48)
--- NOTE | 2024-02-01 18:08 | CMPROGNOTE_ITS ---
Date of service: 02/01/24 Time of Service: 18:08 Care Management Progress Note Progress Note Text Progress Note Text: Miguel was lying in bed when CM met with him. He stated that he is doing well today, and felt that he did ok with PT when they completed their evaluation, but he was unsure of their recommendations. Per report, PT recommends that he return home with a resumption of services; Miguel has support from MEDICAL EDUCATION COORDINATOR, but does not currently have HH services. Miguel stated that before he went into the ICU, he was told by a doctor that he only has six months to live, which is upsetting. CM provided empathy and understanding. Palliative was consulted, and will see him early tomorrow morning. He will likely be discharged tomorrow, per MD. CM will continue to follow. Discharge Potential Discharge Needs: PT Evaluation and PCP F/U Appt Anticipated Barriers to Discharge: None Identified Patient/Family Education Needs: Review discharge instructions, discuss Ask Me Three Transportation: [facility] Plan: Anticipate Miguel will return home with a resumption of his community supports, including MEDICAL EDUCATION COORDINATOR. [facility] staff. He will follow up with his PCP and his discharge plan of care. CM will continue to follow. SDOH(Care Management) Screening Will the Patient Participate in the Screening?: Yes Do you worry about having a steady place to live?: no In the past 12 months, have you had to go without electric, gas, oil or water in your home?: no Have you or anyone in your house had to go without enough food to eat?: no Has lack of transportation kept you from medical appointments or from doing things needed for daily living?: yes Has anyone in your support network made you feel unsafe for any reason?: yes Social Determinants of Health Comments(SDOH Details): Pt describes concerns abou t others in the apartment building putting fidelina in his laundry; admits potential for this to be paranoia. Health Related Social Needs Health related social needs: transportation insecurity(Z59.82) and problem related to primary support group(Z63.9)
[2024-02-01] MEDS: Omeprazole 20 MG CAPCR 40 MG PO (19:30)
[2024-02-01] MEDS: Lachydrin 12% LOTION 225 GM BTL TP (19:31)
[2024-02-01 19:58] VITALS: BP 113/78; PULSE 64; RESP 18; TEMP 36.5; O2SAT 100
[2024-02-01] MEDS: Enoxaparin 30 MG/0.3 ML SYR SC (21:26)
[2024-02-01 23:16] VITALS: BP 125/82; PULSE 66; RESP 18; TEMP 36.4; O2SAT 98
[2024-02-02 03:23] VITALS: BP 117/81; PULSE 67; RESP 18; TEMP 36.2; O2SAT 100
--- NOTE | 2024-02-02 06:35 | PCNE_ITS ---
Date of service: 02/02/24 Time of Service: 06:35 History of Present Illness History of Present Illness Chief Complaint: Congestive heart failure, itching, weakness Narrative: Miguel presented to the emergency room with dyspnea on exertion. He has been having increased swelling in his legs and lower abdomen. He has a history of an EF of 20%. His PCP started him on Lasix, but did not have adequate diuresis. He came to the emergency room and did better with higher doses of Lasix. He then was started on IV Lasix and had good diuresis with this several pounds of fluid off. He does have BPH and has a Benedict in place. He does feel like he is ready to go home soon. 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 He does not smoke or drink or do recreational drugs. For fun he watches TV he likes old movies especially Mercado classic one of his favorites his father's notes best and leave it to [place]. He has never been and has no children. He has siblings that live in [place], but he has not seen this brother in 9 years since a very their mom, [place] which recently she did come to [place] for her 80th birthday. He showed me pictures of he and his 80-year-old sister on his phone. He usually gets around with [facility]. He presently lives [facility] in [facility]. For him the most important thing is how itchy he feels. Assessment and Plan Assessment and plan (1) Advanced care planning/counseling discussion: Status: Acute Assessment and plan: After long discussion, Miguel does not want CPR. He completed a COLST form. He does not want life prolonging treatment such as CPR but does want IVF, antibiotics and especially care for his itchy skin He also consented to further involvement with [facility]iative [facility]. I will do a home visit in 1-3 weeks (2) Heart failure with reduced ejection fraction (HFrEF, <= 40%) and combined systolic and diastolic dysfunction: Status: Chronic (3) Diabetes mellitus type 2 in obese: Status: Chronic (4) CLEM (acute kidney injury): Status: Resolved (5) Edema: Status: Resolved (6) Skin lesions, generalized: Status: Acute Assessment and plan: Skin lesions?most of these are most likely excoriation from his chronic itching. I would suspect that his itching is secondary to his renal failure. He has some triamcinolone cream. He has tried Benadryl. Neither of these have been very successful. He has not tried doxepin prednisone or hydroxyzine. Certainly this could be helpful. Obviously need to be careful because of his reduced EF, kidney disease etc. I did not have the results of the pathology when I saw him. I will call him and discuss this. Congestive heart failure?he has diuresed quite a bit. He will need to go home on diuretics. CODE STATUS?we discussed CODE STATUS in depth. We talked about both pros and cons of CPR. He was very adamant that he did not want CPR rate from the beginning. He said I do not want chest compressions, electricity, intubation. We did complete a POLST form and we have a copy now in his chart and a copy being sent to his PCP. He is a DO NOT RESUSCITATE DO NOT INTUBATE. He was told by someone that he has less than 6 months to live. If he chooses not to have aggressive type care and not to return to the hospital I think it would be reasonable to consider going on hospice. He very much wanted me to visit him. I will do this as his home as transportation is difficult. We will pursue this more in the future. With his low EF he may qualify for an ICD. I am not certain if he wants to go that direction. He said that his life is really pretty lousy and all he does is sits around all day and watches TV. He was glad he got to see his sister on her 80th birthday but has no other goals in his life. Informed hospitalist about his CODE STATUS change Review of Systems Narrative: See [facility] All Active Problems (Updated 02/04/24 @ 07:59 by Bonnie Osman MD, DC) Skin lesions, generalized (Acute) Advanced care planning/counseling discussion (Acute) Ventricular tachycardia (Chronic) CLEM (acute kidney injury) (Acute) Heart failure with reduced ejection fraction (HFrEF, <= 40%) and combined systolic and diastolic dysfunction (Chronic) Weakness (Acute) Heart failure with reduced ejection fraction (Chronic) Hypertension (Chronic) Schizophrenia (Chronic) Diabetes mellitus type 2 in obese (Chronic) Medical History CHF (congestive heart failure) Anemia Acute exacerbation of congestive heart failure Panic attacks High cholesterol Eczema Depression CAP (community acquired pneumonia) Acute dyspnea Asthma exacerbation in COPD CHF exacerbation Surgical History Hx of hernia repair Social History Smoking/Tobacco Use Status: Never Smoking risk assessment performed?: Yes Alcohol Intake: never Drug use: Never Substance use type: does not use Housing: apartment What type of physical activity do you participate in: none Do you feel safe at home: Yes Do you feel safe in your relationship?: Yes Exam Narrative Exam Narrative: 68-year-old pleasant man. Very cooperative. He is covered from head to toe with excoriations from his constant itching. I did look at his back and it appears that where he cannot itch there are no open sores. His heart?systolic murmur little distant. His lungs good aeration I did not appreciate any rales. Abdomen nontender. He was oriented x 3. Results Last Vital Signs Temp 97.2 F L 02/02/24 03:23 Pulse 67 02/02/24 03:23 Resp 18 02/02/24 03:23 BP 117/81 02/02/24 03:23 Pulse Ox 100 02/02/24 03:23 Labs 02/02/24 06:25 02/02/24 06:25 Labs: Laboratory Results - last 24 hr 02/01/24 06:30 WBC 10.05 RBC 4.44 Hgb 13.2 L Hct 40.3 MCV 91 MCH 29.7 MCHC 32.8 RDW 15.6 H Plt Count 148 MPV 12.6 H Sodium 140 Potassium 4.3 Chloride 101 Carbon Dioxide 30.7 Anion Gap 8.3 BUN 101 H* Creatinine 3.6 H* Est GFR (CKD-EPI 2020) 17.52 Glucose 134 H Calcium 8.9 Imaging Additional studies: Echo - reduced EF to 20%, Valve regurg and Pulmonary pressures about 50% Pathology: 01/19/24 - ulceration, eosinophilia and excoriations
[2024-02-02 07:05] LABS: HCT 40.3 % (40.0-50.0); HGB 13.2 g/dL (13.5-17.5); MCH 29.8 pg (27.0-33.0); MCHC 32.8 % (32.0-36.0); MCV 91 fL (80-95); Platelet Count 155 10^3/uL (130-400); RBC 4.43 10^6/uL (4.36-5.78); RDW 15.3 % (11.8-14.1); RDW-SD 51.8 fL; WBC 9.65 10^3/uL (4.4-10.8)
[2024-02-02 07:46] VITALS: BP 123/78; PULSE 63; RESP 12; TEMP 36.6; O2SAT 99
[2024-02-02 08:00] LABS: Anion Gap 9.7 mmol/L (3-11); CO2 29.3 mmol/L (21.0-32.0); Calcium 8.9 mg/dL (8.5-10.1); Chloride 101 mmol/L (98-107); Estimated GFR 16.42 (mL/min/1.73m2); Glucose 128 mg/dL (74-106); Potassium 4.4 mmol/L (3.5-5.1); Sodium 140 mmol/L (136-145)
[2024-02-02 08:30] LABS: BUN 101 mg/dL (7-18); CREATININE 3.8 mg/dL (0.70-1.30)
[2024-02-02] MEDS: Omeprazole 20 MG CAPCR 40 MG PO (08:33)
[2024-02-02] MEDS: Finasteride 5 MG TAB PO (08:34)
[2024-02-02] MEDS: Furosemide 80 MG TAB PO (08:34)
[2024-02-02] MEDS: predniSONE 20 MG TAB PO (08:34)
[2024-02-02] MEDS: Spironolactone 25 MG TAB PO (08:34)
[2024-02-02] MEDS: Amiodarone 200 MG TAB PO (08:34)
--- NOTE | 2024-02-02 10:28 | DSE_ITS ---
Date of service: 02/02/24 Time of Service: 10:31 DS: Diagnosis Discharge Diagnosis (1) Heart failure with reduced ejection fraction (HFrEF, <= 40%) and combined systolic and diastolic dysfunction: Status: Chronic (2) Diabetes mellitus type 2 in obese: Status: Chronic (3) CLEM (acute kidney injury): Status: Acute (4) Edema: Status: Acute (5) Advanced care planning/counseling discussion: Status: Acute Discharge Plan Disposition Patient Disposition: Home W/Home Health Services Condition: Good Discharge Details Reason For Visit: CHF exacerbation, CLEM Admit Date/Time: 01/27/24 19:55 Admit Provider: Galo Cabral Attending Provider: Galo Cabral Primary Care Provider: Reinier Arceo Hospital Course Hospital Course: Patient initially presented with signs and symptoms alcohol ultimately determined to be secondary to exacerbation of congestive heart failure. During hospitalization was determined that the patient's EF had significantly declined and was down to 15 to 20%. He was aggressively diuresed during hospitalization and had significant improvement of his symptoms, ultimately being discharged with 40 mg of p.o. Lasix twice daily. His creatinine did slightly increase during hospitalization, but otherwise his kidney function was within normal limits. Given the insignificant improvement of his symptoms it was determined that he was stable for discharge home and will have close follow-up with his PCP, cardiology, and should have referral for consideration of placement of AICD. Additionally, he was not started on complete regimen of goal-directed therapy due to his creatinine and low normal blood pressures while diuresing, but it is recommended that PCP or cardiology initiate appropriate goal-directed therapy once appropriate. He is ordered to have a reapt BMP within 3 days. Additionally, he required minimal sliding scale insulin coverage during hospitalization, but given his Cr decision was made to forgo metformin and for him to start 5U of AM lantus. Home Meds and New Rx's Prescriptions: New amiodarone [Pacerone] 200 mg Tablet 200 mg PO BID Qty: 90 0RF prednisone 20 mg Tablet 10 mg PO DAILY Qty: 90 0RF spironolactone 25 mg Tablet 25 mg PO DAILY Qty: 90 0RF furosemide 80 mg Tablet 40 mg PO BID DIURETIC Qty: 90 0RF insulin glargine [Lantus Solostar U-100 Insulin] 100 unit/mL (3 mL) insulin pen 5 unit subcut QAM Qty: 15 5RF Continued finasteride 5 mg tablet 5 mg PO DAILY triamcinolone acetonide 0.1 % Cream 1 applic TOPICAL PRN PRN Patient Comments: pt states not taking betamethasone dipropionate 0.05 % Cream 1 applic TOPICAL PRN PRN albuterol sulfate [ProAir HFA] 90 mcg/actuation Hfa Aerosol Inhaler 2 puff INHALATION QID PRN ketoconazole 2 % Cream 1 applic TOPICAL PRN PRN ammonium lactate 12 % cream 1 applic TOPICAL BID Patient Comments: APPLY THIN LAYER TOPICALLY TO RASH TWICE DAILY polyethylene glycol 3350 17 gram Powder In Packet 17 g PO DAILY PRN PRN (Reason: Constipation) Qty: 0 0RF benzonatate 100 mg Capsule 100 mg PO TID Qty: 0 0RF docusate sodium [Colace] 100 mg Capsule 100 mg PO BID Qty: 0 0RF omeprazole 20 mg Capsule,Delayed Release(Dr/Ec) 40 mg PO BID@729,1999 Qty: 0 0RF ondansetron 4 mg Tablet,Disintegrating 4 mg PO Q8H PRN PRNQty: 0 0RF Bengay Greaseless Cream 0 g topical PRN PRNQty: 0 0RF Discontinued furosemide 20 mg tablet 40 mg PO QAM Patient Comments: TAKE TWO TABLETS BY MOUTH EVERY DAY No Action prednisone 20 mg tablet 20 mg PO DAILY Patient Comments: TAKE TWO TABLETS BY MOUTH EVERY DAY FOR 5 DAYS; THEN TAKE ONE TABLET BY MOUTH ONCE DAILY FOR 10 DAYS; THEN ONE-HALF TABLET BY MOUTH ONCE NICHOLAS Discharge Instructions Instructions: Heart Failure, Adult (DC) Stand Alone Forms: Nursing Discharge Form Referrals: Reinier Arceo [Primary Care Provider] - 02/17/24 8:30 am Vicki Gonzalez MD [ [facility] STAFF PHYSICIAN] - (HFrEF, EF 20%, consideration of AICD----Ref faxed to office, they will call for the appointment) Activity:: Activity as Tolerated Equipment/Supplies:: Blood Glucose Monitor Diet:: As Tolerated Discharge Orders Discharge Orders: Discharge Order (Routine); Ordered 02/02/24 Ordered By: Aaron Membreno Other Ambulatory Orders: Basic Metabolic Panel (Routine) Timeframe: 3 Days Facility: [facility] - Location: Laboratory Outpatient - [facility] Ordered By: Aaron Membreno DS: Summary Time Spent with Patient providing and/or coordinating discharge services: Greater than 30 minutes Status at Discharge Functional status at discharge: independent ambulation Overall status at discharge: patient is back to baseline Mental Status: mental status grossly normal Speech and Movement: speech and movement normal Mood: congruent mood Affect: normal affect Quality:SDOH Health Related Social Needs: Health related social needs transpo insecurity, person al safety Exam Narrative Exam Narrative: well appearing gentleman laying in bed in no acute distress, AOx4, heart RRR, lungs CTAB, abdomen soft, non-tender, non-distended, no peripheral edema noted, significant diffuse areas of excoriations and erythema in various stages of healing Psych Mental Status: mental status grossly normal Speech and Movement: speech and movement normal Mood: congruent mood Affect: normal affect DS: Data Vitals/I&O Vitals and I&O: Vital Signs Temperature 97.9 F 02/02/24 07:46 Temperature Source Temporal Artery Scan 02/02/24 07:46 Pulse 63 02/02/24 07:46 Pulse Rhythm Regular 02/02/24 00:03 Pulse 69 01/31/24 08:12 Respiratory Rate 12 02/02/24 07:46 Respiratory Effort Normal 02/02/24 10:09 Respiratory Depth Normal 02/02/24 00:03 Respiratory Pattern Normal 02/02/24 00:03 Blood Pressure 123/78 02/02/24 07:46 Blood Pressure Mean 92 01/31/24 08:12 Blood Pressure Position Supine 01/30/24 20:12 Pulse Oximetry 99 02/02/24 07:46 Oxygen Delivery Method Room Air 02/02/24 07:46 Oxygen Flow Rate 0 02/02/24 07:46 Pain Level 0 02/02/24 07:46 Intake & Output 02/01/24 02/02/24 02/02/24 17:59 05:59 17:59 Intake Total 290 / 290 100 / 390 480 / 480 Output Total 850 / 850 1800 / 2650 Balance -560 / -560 -1700 / -2260 480 / 480 Weight 150 lb 3.2 oz Intake: IV 50 / 50 Oral 240 / 240 100 / 340 480 / 480 Output: Urine 850 / 850 1800 / 2650 Other: Urine Color Yellow Yellow Yellow Urine Appearance Clear Clear Clear Urine Odor Normal None Stool Size Small Stool Characteristics Soft Brown Voiding Methods Indwelling Catheter Data Completed and Pending Labs on day of discharge: Labs from last 24 hours 02/02/24 06:25 WBC 9.65 RBC 4.43 Hgb 13.2 L Hct 40.3 MCV 91 MCH 29.8 MCHC 32.8 RDW 15.3 H Plt Count 155 MPV 13.0 H Sodium 140 Potassium 4.4 Chloride 101 Carbon Dioxide 29.3 Anion Gap 9.7 BUN 101 H* Creatinine 3.8 H* Est GFR (CKD-EPI 2020) 16.42 Glucose 128 H Calcium 8.9 Preliminary micro results at discharge 01/29/24 13:32 Blood Culture - Preliminary Blood NO GROWTH 72 HOURS 01/29/24 13:25 Blood Culture - Preliminary Blood NO GROWTH 72 HOURS PFSH All Active Problems (Updated 02/02/24 @ 07:59 by Bonnie Osman MD, DC) Advanced care planning/counseling discussion (Acute) Ventricular tachycardia (Chronic) Edema (Acute) CLEM (acute kidney injury) (Acute) Hypernatremia (Acute) Anasarca (Chronic) Heart failure with reduced ejection fraction (HFrEF, <= 40%) and combined syst olic and diastolic dysfunction (Chronic) Urinary retention due to benign prostatic hyperplasia (Chronic) Weakness (Acute) CLEM (acute kidney injury) (Acute) Heart failure with reduced ejection fraction (Chronic) Hypertension (Chronic) Schizophrenia (Chronic) Diabetes mellitus type 2 in obese (Chronic) Medical History CHF (congestive heart failure) Anemia Acute exacerbation of congestive heart failure Panic attacks High cholesterol Eczema Depression CAP (community acquired pneumonia) Acute dyspnea Asthma exacerbation in COPD CHF exacerbation Surgical History Hx of hernia repair Social History Smoking/Tobacco Use Status: Never Smoking risk assessment performed?: Yes Alcohol Intake: never Drug use: Never Substance use type: does not use Housing: apartment What type of physical activity do you participate in: none Do you feel safe at home: Yes Do you feel safe in your relationship?: Yes Time Spent with Patient Time Spent with Patient: <45 minutes Time was spent: preparing to see the patient(eg.review tests), obtaining and/or reviewing separately otained hiistory, ordering medications,tests, procedures, referring, communicating with other health career services assistant, indepentently interpreting results, counseling the patient and care coordination
--- NOTE | 2024-02-02 10:33 | CMDISCH_ITS ---
Date of service: 02/02/24 Time of Service: 10:33 LACE Index Scoring Tool Questions: Length of Stay (in days): 4 - 6 Was the patient admitted via the E.D.?: Yes Comorbidities: Diabetes w/o Complication, Congestive Heart Failure and Mild Liver/Renal Disease E.D. Visits: 0 Answers: Total Score: 12 Risk of Readmission: High Risk Care Management Discharge Plan Reason for Hospitalization: CHF Exacerbation, CLEM Discharge Plan: Miguel will return home with new orders for VNA: RN, JIRA DEVELOPER and will resume established community supports, including MARKETING COMMUNICATIONS ASSOCIATE. He will also follow up with his PCP, Cardiology (consideration for AICD) and have new medications for diabetes and CHF management. He will transport via private vehicle via [facility] ([email or web address]) coordinated by CM. Patient/Family Education Needs: Review discharge instructions, discuss Ask Me Three self care needs upon discharge. Services Needed at Discharge: Home Health Care Services (New orders for RN (New insulin, CHF education and monitoring), JIRA DEVELOPER; pantographer care planning, service support attachment ) and Transportation ([employer] ) SDOH Health Related Social Needs: 2 Health related social needs transpo insecurity, person al safety Health related social needs details MARKETING COMMUNICATIONS ASSOCIATE support-resump tion: self awareness of possible paranoia re: other tenants in apartment building putting lye in laundry Health related social needs: transportation insecurity(Z59.82) and problem related to primary support group(Z63.9) Health related social needs details: MARKETING COMMUNICATIONS ASSOCIATE support-resumption: self awareness of possible paranoia re: other tenants in apartment building putting lye in laundry Referrals and interventions: [facility], new Home Health RN, JIRA DEVELOPER MH Services (Omit if N/A) Current MH Services: MARKETING COMMUNICATIONS ASSOCIATE (Resumption) Referred to Internal [facility] (ED embedded) child support case officer?: No
--- NOTE | 2024-02-02 10:33 | PDOC.CMDIS ---
Date of service: 02/02/24 Time of Service: 10:33 LACE Index Scoring Tool Questions: Length of Stay (in days): 4 - 6 Was the patient admitted via the E.D.?: Yes Comorbidities: Diabetes w/o Complication, Congestive Heart Failure and Mild Liver/Renal Disease E.D. Visits: 0 Answers: Total Score: 12 Risk of Readmission: High Risk Care Management Discharge Plan Reason for Hospitalization: CHF Exacerbation, CLEM Discharge Plan: Miguel will return home with new orders for VNA: RN, CHEMICAL MANAGER and will resume established community supports, including SLACK LINE YARDER. He will also follow up with his PCP, Cardiology (consideration for AICD) and have new medications for diabetes and CHF management. He will transport via private vehicle via [facility] ([employer]) coordinated by CM. Patient/Family Education Needs: Review discharge instructions, discuss Ask Me Three self care needs upon discharge. Services Needed at Discharge: Home Health Care Services (New orders for RN (New insulin, CHF education and monitoring), CHEMICAL MANAGER; termite helper care planning, service support attachment ) and Transportation ([facility] ) SDOH Health Related Social Needs: Health related social needs transpo insecurity, personal safety Health related social needs details SLACK LINE YARDER support-resumption: self awareness of possible paranoia re: other tenants in apartment building putting lye in laundry Health related social needs: transportation insecurity(Z59.82) and problem related to primary support group(Z63.9) Health related social needs details: SLACK LINE YARDER support-resumption: self awareness of possible paranoia re: other tenants in apartment building putting lye in laundry Referrals and interventions: [facility], new Home Health RN, CHEMICAL MANAGER MH Services (Omit if N/A) Current MH Services: SLACK LINE YARDER (Resumption) Referred to [facility] (ED embedded) business case analyst?: No
[2024-02-02] MEDS: Lachydrin 12% LOTION 225 GM BTL TP (10:39)
[2024-02-02] MEDS: Triamcinolone 0.1% CR 80 GM TUBE TP (10:40)
--- NOTE | 2024-02-02 10:57 | PDOC.HHF2F_ITS ---
Home Health Referral Home Health Orders Clinical synopsis of why skilled professionals are needed: IDDM, HFrEF Registered Nurse: Check all that apply Instruct on new or changed medication(s)/assess compliance: Ordered Assess for exacerbation of medical condition, instruct patient/caregivers on signs and symptoms to report for early detection: Ordered Wound Treatment Rn: Assist with community resources: Ordered Assist with evp head of [employer] strategy care planning: Ordered Encounter Date and Reason: I certify that a FTF encounter for this patient was performed on February 02, 2024 and that such encounter was related to the primary reason the patient requires home health services. The encounter was conducted in the following manner: * By me as the certifying physician, SALT MACHINE OPERATOR, PA or * By an inpatient physician, SALT MACHINE OPERATOR or PA during an inpatient stay who communicated findings to me, Certification And Authentication I certify that I composed the above information based on my clinical judgment relating to this patient's medical condition and, if applicable, clinical findings communicated to me by the NPP or inpatient physician who performed the FTF encounter. Name of Provider that will be monitoring home health services: Reinier Arceo
== END 2024-02-02 11:24 | disposition home health service (06) | DRG 291 ==
LOC: ER 20:49 → MS 20:53 → ICU 01-31 12:00
PROVIDERS: Family Medicine; Internal Medicine; Admitting Provider Family Medicine; Emergency Provider Student in an Organized Health Care Education/Training Program; PCP Physician Assistant; Visit Provider Family Medicine
DX: I13.0 Hypertensive heart and chronic kidney disease with heart failure and stage 1 through stage 4 chronic kidney disease, or unspecified chronic kidney disease (principal); I50.43 Acute on chronic combined systolic (congestive) and diastolic (congestive) heart failure; N17.9 Acute kidney failure, unspecified; I47.20 Ventricular tachycardia, unspecified; F20.81 Schizophreniform disorder; N13.8 Other obstructive and reflux uropathy; E87.0 Hyperosmolality and hypernatremia; R60.1 Generalized edema; N40.1 Benign prostatic hyperplasia with lower urinary tract symptoms; E11.69 Type 2 diabetes mellitus with other specified complication; E66.9 Obesity, unspecified; R33.8 Other retention of urine; D64.9 Anemia, unspecified; F41.0 Panic disorder [episodic paroxysmal anxiety]; F32.A Depression, unspecified; E78.00 Pure hypercholesterolemia, unspecified; L30.9 Dermatitis, unspecified
CPT/HCPCS: 00123; 36415; 80048; 80053; 80069; 85027; 87040; 87077; 93005; 93308; 96374; 97161; 99285; 71045; 73030; 81003; 81015; 83036; 83735; 83880; 84132; 84484; 85025; 85610; 87086; 87186; 93010; 93306; 99223; 99233; 99238; 99291; J0283; J0696; J1205; J1250; J1650; J1815; J1940; J2305; J3490; J7512; P9047

== ENCOUNTER 2024-02-04 12:38 | Outpatient (REF) | payer MEDICARE, MEDICAID, SELFPAY ==
--- OUTSIDE RECORDS SUMMARY | 2024-02-04 12:55 | XMS_ITS | Encounter Summary ---
Author Organization [facility] [place] [address] Care Team Providers Care Medical Records Supervisor Name Role Phone Reinier Arceo Primary Care Provider [phone] Reason for Referral * Consultation (Urgent) - Authorized Specialty Diagnoses / Procedures Referred By Contbella t Referred To Contact Dermatology Diagnoses Atopic dermatitis, unspecified type Reinier Arceo PA [address] [place] [address] [facility] D[facility]at[facility] [address] [place] [address] Referral ID Status Reason Start Date Expiration Date Visits Requested Visits Authorized [id number] Authorized Consult, Test & Treat PCP Updated and/or Approved 01/19/2024 07/21/2024 6 6 Encounter Details Date Type Department Care Team (Latest Contact Info) Description 01/31/2024 Transcribe Orders eDH Incoming Referrals [phone] Reinier Arceo PA [address] [place] [address] Atopic dermatitis, unspecified type Social History Tobacco Use Types Packs/Day Years Used Date Smoking Tobacco: Never Smokeless Tobacco: Never Alcohol Use Standard Drinks/Week Comments Never 0 (1 standard drink = 0.6 oz pur e alcohol) [facility] Inpatient Questions Answer Date Recorded [...] Care Team (Late st Contact Info) Description 04/06/2024 2:20 PM EDT [place] [address] Austin Simon MD [facility] [place] [address] Scheduled Referrals Name Type Priority Associated Diagnoses Orde r Schedule Referral to Dermatology Outpatient Referral Routine Atopic dermatitis, unspecified type Ordered: 01/31/2024 documented as of this encounter Visit Diagnoses Diagnosis Atopic dermatitis, unspecified type documented in this encounter Care Teams Medical Records Supervisor Relationship Specialty Start Date End Date Reinier Arceo PA [address] [place] [address] PCP - General Internal Medicine 01/18/23 documented as of this encounter
--- OUTSIDE RECORDS SUMMARY | 2024-02-04 12:55 | XMS_ITS | Encounter Summary ---
[place] [address] Care Team Providers Care Household Appliance Assembler Name Role Phone Reinier Arceo Primary Care Provider [phone] Reason for Referral * Diagnostic Test (Routine) - Closed Specialty Diagnoses / Procedures Referred By Fady park Referred To Contact Radiology Diagnoses Benign prostatic hyperplasia with urinary retention Scrotal swelling Procedures CT Pelvis Soft Tissue (GI PACKAGE WINDER) wo Contrast Meche Donato APRN [facility] [place] [address] [facility] [place] [address] Referral ID Status Reason Start Date Expiration Date V isits Requested Visits Authorized [id number] Closed Specialty Service Requested 07/07/2023 01/04/2025 1 1 Reason for Visit * Consultation (Routine) - Authorized Specialty Diagnoses / Procedures Referred By Fady park Referred To Contact Urology Diagnoses Benign prostatic hyperplasia with lower urinary tract symptoms, symptom details unspecified Other retention of urine Tiffanie Muñoz APRN [address] [place] [address] [facility] [place] [address] Referral ID Status Reason Start Date Expiration Date Visits Requested Visits Authorized [id number] Authorized Consult, Test & Treat PCP Updated and/or Approved 06/01/2023 05/31/2024 6 6 Encounter Details Date Type Department Care Team ([facility] st Contact Info) Description 07/07/2023 11:20 AM EST [place] [address] Meche Donato APRN [facility] [place] [address] Screening PSA (prostate specific antigen); Benign prostatic [...] this encounter Progress Notes * Meche Donato, [employer] - 07/07/2023 11:20 AM EST [facility] SECTION OF UROLOGY UROLOGY [...] retention was initially discovered when presenting to [facility] ER for SOB and CHF exacerbation.He was [...] has been undergoing monthly catheter exchanges at [facility] Urology, last documented void trial was there [...] TIMES DAILY inhalational spacing device (Chris Aerosol Stanley Enhancer) Spacer Misc.(Non-Drug; Combo Route) ketoconazole (Nizoral) [...] like to do repeat void trial at [facility] at time of next alfaro exchange. We [...] satisfaction. Meche Donato APRN Section of Urology [facility] documented in this encounter Plan of Treatment Upcoming Encounters Date Type Department Care Team (Late st Contact Info) Description 04/06/2024 2:20 PM EDT [place] [address] Austin Simon MD [facility] [place] [address] documented as of this encounter Procedures Procedure Name Priority Date/Time Associated Diagnosis Comments PSA SCREEN Routine 07/07/2023 12:21 PM EST Screening PSA (prostate specific antigen) documented in this encounter Results * CT Pelvis Soft Tissue (GI PACKAGE WINDER) wo Contrast (09/14/2023 1:38 PM EDT) Anatomical [...] who have questions please contact the health health care manager that requested your imaging first. ? Narrative 09/14/2023 4:39 PM EDT EXAMINATION: CT PELVIS SOFT TISSUE (GI PACKAGE WINDER) WO CONTRAST CLINICAL HISTORY: prostate sizing and [...] 09/14/2023 EXAMINATION: CT PELVIS SOFT TISSUE (GI PACKAGE WINDER) WO CONTRAST CLINICAL HISTORY: prostate sizing and [...] patients who have questions please contactthe health health care manager that requested your imaging first. Meche Donato APRN IMG CT ORDERABLES * PSA Screen (07/07/2023 12:21 PM EST) PSA Screen 1.62 0.00 - 4.00 ng/mL [facility] Comment: PLEASE NOTE: The above [...] Resulting Agency Comment Spec In Lab Meche Dontao [employer] CHEMISTRY ORDERABLE S [facility] [place] [address] documented in this encounter Visit Diagnoses Diagnosis Screening PSA (prostate specific antigen) Special screening for malignant neoplasm of prostate Benign prostatic hyperplasia with urinary retention Scrotal swelling Edema of male genital organs Benign prostatic hyperplasia with urinary retention Scrotal swelling Edema of male genital organs documented in this encounter Care Teams Household Appliance Assembler Relationship Specialty Start Date End Date Reinier Arceo PA [address] [place] [address] PCP - General Internal Medicine 01/18/23 documented as of this encounter
--- OUTSIDE RECORDS SUMMARY | 2024-02-04 12:55 | XMS_ITS | Encounter Summary ---
Author Organization [facility] Address [facility] [place] [address] Care Team Providers Care New Car Salesperson Name Role Phone Reinier Arceo Primary Care Provider [phone] Encounter Details Date Type Department Care Team (Late Contact Info) Description 06/10/2023 Telephone Nephrology [place] [phone] Ava Villegas Social History Tobacco Use Types Packs/Day Years Used Date Smoking Tobacco: Never Alcohol Use Standard Drinks/Week Comments Never 0 (1 standard drink = 0.6 oz pur e alcohol) [facility] Inpatient Questions Answer Date Recorded Does [...] Department Care Team (Late Contact Info) Description 04/06/2024 2:20 PM EDT Procedure [place] [address] Austin Simon MD [facility] [place] [address] documented as of this encounter Visit Diagnoses Not on filedocumented in this encounter Care Teams New Car Salesperson Relationship Specialty Start Date End Date Reinier Arceo PA [address] [place] [address] PCP - General Internal Medicine 01/18/23 documented as of this encounter
--- OUTSIDE RECORDS SUMMARY | 2024-02-04 12:55 | XMS_ITS | Encounter Summary ---
Author Organization [facility] [place] [address] Care Team Providers Care Ointment Mill Tender Name Role Phone Reinier Arceo Primary Care Provider [phone] Reason for Referral * Consultation (Routine) - Closed Specialty Diagnoses / Procedures Referred By Contac t Referred To Contact Cardiology Diagnoses Chronic combined systolic (congestive) and diastolic (congestive) heart failure Increased SOB. Chronic combined systolic (congestive) and diastolic (congestive) heart failure. Overdue 6 month f/up (around 10/2023) per 06/2023 DANIEL-Bita/Reinier Gregory PA [address] [place] [address] [facility] [address] [place] [id number] Referral ID Status Reason Start Date Expiration Date V isits Requested Visits Authorized [id number] Closed Consult, Test & Treat 10/15/2023 10/14/2024 1 1 Encounter Details Date Type Department Care Team (Latest Contact Info) Description 10/15/2023 Transcribe Orders eDH Incoming Referrals [phone] Reinier Arceo PA [address] [place] [address] Chronic combined systolic (congestive) and [...] 2:20 PM EDT [place] [address] Austin Simon MD [facility] [place] [address] Scheduled Referrals Name Type Priority Associated Diagnoses Order Schedule Referral to Cardiology Outpatient Referral Routine Chronic combined systolic (congestive) and diastolic (congestive) heart failure Ordered: 10/15/2023 documented as of this encounter Visit Diagnoses Diagnosis Chronic combined systolic (congestive) and diastolic (congestive) heart failure documented in this encounter Care Teams Ointment Mill Tender Relationship Specialty Start Date End Date Reinier Arceo PA [address] [place] [address] PCP - General Internal Medicine 01/18/23 documented as of this encounter
--- OUTSIDE RECORDS SUMMARY | 2024-02-04 12:55 | XMS_ITS | Encounter Summary ---
Author Organization [facility] [place] [address] Care Team Providers Care Play Leader Name Role Phone Reinier Arcoe Primary Care Provider [phone] Encounter Details Date Type Department Care Team [...] 2:20 PM EDT Procedure visit Urology at [facility] [place] [address] Austin Simon MD [facility] [place] [address] documented as of this encounter Visit Diagnoses Not on filedocumented in this encounter Care Teams Play Leader Relationship Specialty Start Date End Date Reinier Arceo PA [address] [place] [address] PCP - General Internal Medicine 01/18/23 documented as of this encounter
--- OUTSIDE RECORDS SUMMARY | 2024-02-04 12:55 | XMS_ITS | Encounter Summary ---
[place] [address] Care Team Providers Care Credit Collections Manager Name Role Phone Reinier Arceo Primary Care Provider [phone] Reason for Referral * Consultation (Routine) - Authorized Specialty Diagnoses / Procedures Referred By Fady park Referred To Contact Urology Diagnoses Benign prostatic hyperplasia with lower urinary tract symptoms, symptom details unspecified Other retention of urine Tiffanie Muñoz APRN [address] [place] [address] [facility] [place] [address] Referral ID Status Reason Start Date Expiration Date Visits Requested Visits Authorized [id number] Authorized Consult, Test & Treat PCP Updated and/or Approved 06/01/2023 05/31/2024 6 6 Encounter Details Date Type Department Care Team (Latest Contact Info) Description 06/01/2023 Transcribe Orders eDH Incoming Referrals [phone] Tiffanie Muñoz APRN [address] [place], [place] [id number] Benign prostatic hyperplasia with lower urinary tract symptoms, symptom details unspecified; Other retention of urine Social History Tobacco Use Types Packs/Day Years Used Date Smoking Tobacco: Never Alcohol Use Standard Drinks/Week Comments Never 0 (1 standard drink = 0.6 oz pur e alcohol) [facility] Inpatient Questions Answer Date Recorded Does [...] 2:20 PM EDT Procedure [place] [address] Austin Simon MD [facility] [place] [address] Scheduled Referrals Name Type Priority Associated Diagnoses Orde r Schedule Referral to Urology Outpatient Referral Routine Benign prostatic hyperplasia with lower urinary tract symptoms, symptom details unspecified Other retention of urine Ordered: 06/01/2023 documented as of this encounter Visit Diagnoses Diagnosis Benign prostatic hyperplasia with lower urinary tract symptoms, symptom details unspecified Other retention of urine documented in this encounter Care Teams Credit Collections Manager Relationship Specialty Start Date End Date Reinier Arceo PA [address] [place] [address] PCP - General Internal Medicine 01/18/23 documented as of this encounter
--- OUTSIDE RECORDS SUMMARY | 2024-02-04 12:55 | XMS_ITS | Encounter Summary ---
Author Organization [facility] Address [facility] [place] [address] Care Team Providers Care Design Technology Professor Name Role Phone Reinier Arceo Primary Care Provider [phone] Encounter Details Date Type Department Care Team (Late st Contact Info) Description 02/04/2024 Telephone [place] [phone] Cathleen Agarwal Social History Tobacco Use Types Packs/Day Years Used Date Smoking Tobacco: Never Smokeless Tobacco: Never Alcohol Use Standard Drinks/Week Comments Never 0 (1 standard drink = 0.6 oz pur e alcohol) [facility] Inpatient Questions Answer Date Recorded [...] encounter Miscellaneous Notes * Telephone Encounter - Cathleen Agarwal - 02/04/2024 9:04 AM EDT LM - reschedule 02/02 cancelled apt to 04/06 letter sent documented in this encounter Plan of Treatment Upcoming Encounters Date Type Department Care Team (Late st Contact Info) Description 04/06/2024 2:20 PM EDT Procedure [place] [id number] Austin Simon MD [facility] [address] documented as of this encounter Visit Diagnoses Not on filedocumented in this encounter Care Teams Design Technology Professor Relationship Specialty Start Date End Date Reinier Arceo PA [address] [place] [address] PCP - General Internal Medicine 01/18/23 documented as of this encounter
--- OUTSIDE RECORDS SUMMARY | 2024-02-04 12:55 | XMS_ITS | Clinical Summary ---
Author Organization [facility] Address [facility] [place] [address] Care Team Providers Care Cycle Consultant Name Role Phone Reinier Arceo Primary Care Provider [phone] Allergies No known active allergies Medications Medication [...] Encounters Date Type Department Care Team Description 02/04/2024 [place] [phone] Cathleen Agarwal 02/02/2024 Transcribe Orders eDH Incoming Referrals [phone] Reinier Arceo PA Atopic dermatitis, unspecified type 02/01/2024 Transcribe Orders eDH Incoming Referrals [phone] Reinier Arceo PA 01/31/2024 [place] [phone] Hannah Carson RN 01/31/2024 Transcribe Orders eDH Incoming Referrals [phone] Reinier Arceo PA Atopic dermatitis, unspecified type 01/28/2024 12:18 PM EDT - 01/28/2024 11:59 PM EDT Hospital Encounter [place] [address] Jeff Vann MD History of CHF (congestive heart failure) Discharge Disposition: Home 01/26/[address] [place] [address] Charo Verma 11/23/2023 Telephone [place] [phone] Courtney Sainz from Last 3 Months Social History Tobacco Use Types Packs/Day Years Used Date Smoking Tobacco: Never Smokeless Tobacco: Never Tobacco Cessation:Counseling Given: Not Answered Alcohol Use Standard Drinks/Week Comments Never 0 (1 standard drink = 0.6 oz pur e alcohol) [facility] Inpatient Questions Answer Date Recorded [...] 2:20 PM EDT [place] [phone] Austin Simon MD [facility] [place] [place] [address] Health Maintenance Due Date Last Done Comments [...] Date/Time Associated Diagnosis Comments ECHO COMPLETE Routine 01/28/2024 12:42 PM EDT History of CHF (congestive heart failure) BASIC METABOLIC PANEL Routine 08/04/2023 12:55 PM EST Chronic kidney disease, unspecified CKD stage HEPATITIS C ANTIBODY Routine 01/20/2023 3:23 PM EDT HDL/CHOL PROFILE Routine 01/18/2023 10:1 6 PM EDT HEMOGLOBIN A1C Routine 01/18/2023 10:16 PM EDT from Last 3 Months or Most Recently Relevant to Health Maintenance Results * ECHO COMPLETE (01/28/2024 12:42 PM EDT) Anatomical Region Laterality Modality Other 01/28/2024 9:31 AM EDT Narrative 01/28/2024 2:19 PM EDT ? Version: 1 Name: MIGUEL ADAM ?Study Date: 01/28/2024, 9: 31 AM ?BP: 120 / 79 mmHg ?Patient Location: : 1955 (MM/DD/YYYY) ? Age: 68 Years Gender: Male Ordering Physician: JEFF VANN Referring Physician: JEFF VANN Reason For Study: CHF Exacerbation Interpreting Fellow: Olvin Johnson. Exam Location: [facility]. ? Conclusions Left ventricular systolic function is severely reduced with an ejection fraction estimated visually at 15-20% Right ventricle is of normal size. Right ventricular systolic function is moderately reduced. RV systolic pressure is estimated at 51 mmHg. The left atrium is moderately dilated. There is moderate mitral and tricuspid regurgitation. Compared to previous echo 01/19/23: biventricular systolic function has further reduced. Left ventricular dilation is now severe. Procedure Complete-25041. Suboptimal quality. This study is limited because the patient was unable to turn. There is normal sinus rhythm. Ventricular ectopy occurs frequently during the study. Left Ventricle Left ventricle is of normal size. Wall thickness is normal. There is no ventricular septal defect. Left ventricular systolic function is severely reduced. Left ventricular ejection fraction is estimated visually at 15% with beat to beat variability. Severe global hypokinesis. Right Ventricle The right ventricle is of normal size. Right ventricular systolic function is severely decreased. Left Atrium The left atrium is moderately dilated. There is no evidence for a patent foramen ovale. Right Atrium The right atrium is moderately dilated. Aortic Valve The aortic valve is tricuspid. There is aortic valve sclerosis without stenosis. There is trace aortic regurgitation. Mitral Valve There is mitral annular calcification. There is no mitral stenosis. There is moderate mitral regurgitation. Blunted systolic flow in the pulmonary veins suggests significant mitral regurgitation. Mitral regurgitation may be due to annular dilatation. The color Doppler jet is central directed. Tricuspid Valve The tricuspid valve is structurally normal. There is no tricuspid stenosis. There is moderate tricuspid regurgitation. There is hepatic vein flow reversal. Pulmonic Valve The pulmonic valve appears to be structurally normal. There is no valvular pulmonic stenosis. There is trace pulmonic valve regurgitation. Great Arteries The diameter at the level of the sinuses of Valsalva is 2.7 cm. The maximum diameter of the proximal ascending aorta is 3.4 cm. Venous Inferior vena cava collapse less than 50% with respiration. Inferior vena cava is dilated. Pericardium/Pleural There is no pericardial effusion. Hemodynamics The peak right ventricular systolic pressure is 51.2 mmHg . The estimated right atrial pressure is 15mmHg. There is Grade III LV diastolic dysfunction (restriction with markedly elevated left ventricular filling pressure). Ejection Fraction ? 2D Measurements ? Volume ??s ? IVSd: 0.90 cm ? LA volume: 79.7 ml ? LVIDd: 5.8 cm ? LA Volume Index: 44.9 ml/m? LVIDs: 5.3 cm ? LVPWd: 0.89 cm ? LV mass(C)d: 200.9 grams ? Ao root diam: 2.7 cm ? asc Aorta Diam: 3.4 cm ? LVOT diam: 2.04 cm ? TAPSE_phl: 1.09 cm Doppler ? 3D/Strain/ TomTec TR max jose: 300.8 cm/sec RVSP(TR): 51.2 mmHg Ao V2 VTI: 25.2 cm Ao valve max: 7.1 mmHg Ao valve mean: 3.9 mmHg SV(LVOT): 50.4 ml MV E max jose: 113.6 cm/sec MV A max jose: 40.4 cm/sec MV E/A: 2.8 Lat Peak E' Jose: 5.6 cm/sec E/ e' (lat): 20.2 Med Peak E' Jose: 5.6 cm/sec E/e' (med): 20.2 ROSEANN(I,D): 2.00 cm?? Dimensionless index Aov: 0.61 AI P1/2t: 664.6 msec MV mean P.31 mmHg Electronically signed by: Marvin Trammell MD ?? 01/28/2024, 2: 19 PM Procedure Note Marvin Trammell MD - 01/28/2024 Version: 1 Name: MIGUEL ADAM Study Date: 01/28/2024,9: 31 AM BP: 120 / 79 mmHg Patient Location: : 1955 (MM/DD/YYYY) Age: 68 Years Gender: Male Ordering Physician: JEFF VANN Referring Physician: JEFF VANN Reason For Study: CHF Exacerbation Interpreting Fellow: Olvin Johnson. Exam Location: [facility]. Conclusions Left ventricular systolic function is severely reduced with an ejectionfraction estimated visually at 15-20% Right ventricle is of normal size. Right ventricular systolic functionis moderately reduced. RV systolic pressure is estimated at 51 mmHg. The left atrium is moderately dilated. There is moderate mitral and tricuspid regurgitation. Compared to previous echo 01/19/23: biventricular systolic function hasfurther reduced. Left ventricular dilation is now severe. Procedure Complete-[id number]. Suboptimal quality. This study is limited because thepatient was unable to turn. There is normal sinus rhythm. Ventricular ectopy occursfrequently during the study. Left Ventricle Left ventricle is of normal size. Wall thickness is normal. There is no ventricular septal defect. Left ventricular systolic function is severelyreduced. Left ventricular ejection fraction is estimated visually at 15% with beatto beat variability. Severe global hypokinesis. Right Ventricle The right ventricle is of normal size. Right ventricular systolic functionis severely decreased. Left Atrium The left atrium is moderately dilated. There is no evidence for a patentforamen ovale. Right Atrium The right atrium is moderately dilated. Aortic Valve The aortic valve is tricuspid. There is aortic valve sclerosis withoutstenosis. There is trace aortic regurgitation. Mitral Valve There is mitral annular calcification. There is no mitral stenosis. Thereis moderate mitral regurgitation. Blunted systolic flow in the pulmonaryveins suggests significant mitral regurgitation. Mitral regurgitation may be dueto annular dilatation. The color Doppler jet is central directed. Tricuspid Valve The tricuspid valve is structurally normal. There is no tricuspidstenosis. There is moderate tricuspid regurgitation. There is hepatic vein flowreversal. Pulmonic Valve The pulmonic valve appears to be structurally normal. There is novalvular pulmonic stenosis. There is trace pulmonic valve regurgitation. Great Arteries The diameter at the level of the sinuses of Valsalva is 2.7 cm. Themaximum diameter of the proximal ascending aorta is 3.4 cm. Venous Inferior vena cava collapse less than 50% with respiration. Inferior venacava is dilated. Pericardium/Pleural There is no pericardial effusion. Hemodynamics The peak right ventricular systolic pressure is 51.2 mmHg . The estimatedright atrial pressure is 15mmHg. There is Grade III LV diastolic dysfunction (restriction with markedly elevated left ventricular filling pressure). Ejection Fraction 2D Measurements Volume s IVSd: 0.90 cm LA volume: 79.7 ml LVIDd: 5.8 cm LA Volume Index: 44.9 ml/m?? LVIDs: 5.3 cm LVPWd: 0.89 cm LV mass(C)d: 200.9grams Ao root diam: 2.7cm asc Aorta Diam: 3.4cm LVOT diam: 2.04 cm TAPSE_phl: 1.09 cm Doppler 3D/Strain/ TomTec TR max jose: 300.8 cm/sec RVSP(TR): 51.2 mmHg Ao V2 VTI: 25.2 cm Ao valve max: 7.1 mmHg Ao valve mean: 3.9 mmHg SV(LVOT): 50.4 ml MV E max jose: 113.6 cm/sec MV A max jose: 40.4 cm/sec MV E/A: 2.8 Lat Peak E' Jose: 5.6 cm/sec E/ e' (lat): 20.2 Med Peak E' Jose: 5.6 cm/sec E/e' (med): 20.2 ROSEANN(I,D): 2.00 cm?? Dimensionless index Aov: 0.61 AI P1/2t: 664.6 msec MV mean P.31 mmHg Electronically signed by: Marvin Trammell MD 01/28/2024, 2: 19 PM Jeff Vann MD ECHO ORDERABLES * (ABNORMAL) Basic Metabolic Panel (non-fasting) (08/04/2023 12:55 PM EST) Glucose 153 65 - 199 mg/dL [facility] Comment:Diabetes: >=200 mg/d L plus symptoms Blood Urea Nitrogen 17 10 - 20 mg/dL [facility] Creatinine 2.02(H) 0.80 - 1.50 mg/dL [facility] Sodium 134(L) 135 - 145 mmol/L [facility] Potassium 4.8 3.5 - 5.0 mmol/L [facility] Comment: Please note: ??Patients with WBC >100,000 may have falsely elevated Potassium levels. ??For accurate Potassium quantification in these patients send serum separator tube (gold top) for subsequent determinations. ??Contact the Clinical Chemistry Laboratory if there are any questions. Chloride 98 98 - 107 mmol/L [facility] Carbon Dioxide 23 22 - 31 mmol/L [facility] Anion Gap 13 5 - 15 mmol/L [facility] Calcium 9.6 8.5 - 10.5 mg/dL [facility] Est Glomerular Filtration Rate 35(L) >=60 mL/min/1. 73 m?? [facility] Comment: This patient's estimated GFR [...] Brantley MD CHEMISTRY ORDERABLES Performing Organization Address [facility] Co de Phone Number [facility] [place] [address] * Hepatitis C Antibody (01/20/2023 3:23 PM EDT) Hepatitis C Antibody Negative Negative [facility] Blood 01/20/2023 3:23 PM EDT 01/20/2023 3:28 PM EDT Narrative Resulting Agency Comment Spec In Lab Austin Sosa MD CHEMISTRY ORDERABLES Performing Organization Address [facility] Co de Phone Number [facility] [place] [address] * HDL/Cholesterol Profile (01/18/2023 10:16 PM EDT) Cholesterol, Total 122 mg/dL [facility] Comment: Lower Risk: <200 mg/dL Average Risk: 200-239 mg/dL Higher Risk: >qc=813 mg/dL HDL Cholesterol 27 mg/dL [facility] Comment: Males: ?? Higher Risk: <40 mg/dL Females: ?? Higher Risk: <50 mg/dL Cholesterol/HDL Ratio 4.5 ratio [facility] Chol/HDL Interpretation See Note [facility] Comment: Lipid management should be guided by a patient? s ASCVD risk, goals and preferences. ACC/AHA Guidelines recommend high intensity statin if clinical ASCVD or LDL greater than or equal to 190 mg/dL. http://tinyurl.com/XEF-JRC-Nbbxlhrup Measure LDL if Total Cholesterol minus HDL Cholesterol is greater than 220 mg/dL. Adults aged 40-75 with LDL 70-189 mg/dL should have their 10 year ASCVD risk estimated with the ACC/AHA ASCVD risk senior estimator http://tools.acc.org/OGUOP-Ouwu-Hoctxrusi/ Statin should be discussed if risk greater [...] Lab Tanya Vizcarra MD CHEMISTRY ORDERABL ES [facility] [place] [address] * (ABNORMAL) Hemoglobin A1c (01/18/2023 10:16 PM EDT) Hemoglobin A1c 5.7(H) 4.3 - 5.6 % [facility] Comment: Reference Range: 4.3 - [...] Mellitus, Diabetes Care 2013; 36: Suppl. 1, N27-84 Estimated Average Glucose 117 mg/dL [facility] Comment: eAG equivalents for HbA1c [...] into estimated average glucose values. ??Diabetes Care 2008:31(8):2297-6322. Blood 01/18/2023 10:1 6 PM EDT 01/18/2023 10:27 PM EDT Narrative Resulting Agency Comment Spec In Lab Tanya Vizcarra MD CHEMISTRY ORDERABL ES [facility] [place] [address] from Last 3 Months or Most Recently Relevant to Health Maintenance Advance Directives Documents on File Type Date Recorded Patient Records Management Specialist Expl anation DNR/Out of hospital 02/02/2024 8:16 AM Advance Directives and Livin g Will 01/19/2023 4:14 PM 01/19/2023 * Attempt Cardiopulmonary Resuscitation - Inpatient (Latest Code Status on File) Date Activated Date Inactivated Comments 01/18/2023 7:29 PM 01/27/2023 6:27 PM Question Answer Comments Code Status decision made by: Patient Care Teams Cycle Consultant Relationship Specialty Start Date End Date Reinier Arceo PA [address] [place] [address] PCP - General Internal Medicine 01/18/23
--- OUTSIDE RECORDS SUMMARY | 2024-02-04 12:55 | XMS_ITS | Encounter Summary ---
Author Organization [facility] Address [facility] [place] [address] Care Team Providers Care Washer Machine Name Role Phone Reinier Arceo Primary Care Provider [phone] Encounter Details Date Type Department Care Team (Late st Contact Info) Description 01/26/2024 Telephone Dermatology at [facility] [address] [place] [address] Charo Verma Social History Tobacco Use Types [...] that they send the referral again to [phone] (Kathy Mancilla) so either myself or one ofmy colleagues could enter the referral more quickly. Referral is for an urticarial papular full body rash. documented in this encounter Plan of Treatment Upcoming Encounters Date Type Department Care Team (Late st Contact Info) Description 04/06/2024 2:20 PM EDT [place] [address] Austin Simon MD [facility] [place] [address] documented as of this encounter Visit Diagnoses Not on filedocumented in this encounter Care Teams Washer Machine Relationship Specialty Start Date End Date Reinier Arceo PA [address] [place] [address] PCP - General Internal Medicine 01/18/23 documented as of this encounter
--- OUTSIDE RECORDS SUMMARY | 2024-02-04 12:55 | XMS_ITS | Encounter Summary ---
Author Organization [facility] Address [facility] [place] [address] Care Team Providers Care Patient Assistant Name Role Phone Reinier Arceo Primary Care Provider [phone] Encounter Details Date Type Department Care Team (Late Contact Info) Description 07/02/2023 Telephone [place] [address] Ava Villegas Social History Tobacco Use Types Packs/Day Years Used Date Smoking Tobacco: Never Smokeless Tobacco: Never Alcohol Use Standard Drinks/Week Comments Never 0 (1 standard drink = 0.6 oz pur e alcohol) [facility] Inpatient Questions Answer Date Recorded Does Anyone [...] 2:20 PM EDT [place] [phone] Austin Simon MD [facility] [place] [address] documented as of this encounter Visit Diagnoses Not on filedocumented in this encounter Care Teams Patient Assistant Relationship Specialty Start Date End Date Reinier Arceo PA [address] [place] [address] PCP - General Internal Medicine 01/18/23 documented as of this encounter
--- OUTSIDE RECORDS SUMMARY | 2024-02-04 12:55 | XMS_ITS | Encounter Summary ---
Author Organization [facility] [place] [address] Care Team Providers Care Carding Machine Operator Name Role Phone Reinier Arceo Primary Care Provider [phone] Encounter Details Date Type Department Care Team [...] 2:20 PM EDT Procedure visit Urology at [facility] [place] [address] Austin Simon MD [facility] [address] documented as of this encounter Visit Diagnoses Not on filedocumented in this encounter Care Teams Carding Machine Operator Relationship Specialty Start Date End Date Reinier Arceo PA [address] [place] [address] PCP - General Internal Medicine 01/18/23 documented as of this encounter
--- OUTSIDE RECORDS SUMMARY | 2024-02-04 12:55 | XMS_ITS | Encounter Summary ---
Author Organization [facility] Address [facility] [place] [id number] Care Team Providers Care Hat Trimmer Name Role Phone Reinier Arceo Primary Care Provider [phone] Reason for Referral * Consultation (Routine) - Authorized Specialty Diagnoses / Procedures Referred By Contact Referred To Contact Electrophysiology / Cardiology Diagnoses HFrEF (heart failure with reduced ejection fraction) AICD consideration for HFrEF 29%, Etiology unknown. Please see note Freedom Sunshine MD [facility] [place] [address] [facility] Cardiology [address] [place] [phone] Referral ID Status Reason Start Date Expiration Date Visits Requested Visits Authorized [id number] Authorized Consult, Test & Treat 04/28/2023 04/27/2024 1 1 Encounter Details Date Type Department Care Team (Late st Contact Info) Description 04/28/2023 2:00 PM EDT Office Visit Cardiology at [address] [phone] Marvin Ba MD [facility] [place] [address] Freedom Sunshine MD [facility] [place] [address] HFrEF (heart failure with reduced ejection fraction) [...] from the original note were not included. [facility] [place] [address] [address] CARDIOLOGY OUTPATIENT CLINIC VISIT [facility] Miguel Sanchez 04/28/2023 Referring Providers: ELSIE Espinoza Patrick, PA [address] [place] [address] CHIEF COMPLAINT: CHF Dear ELSIE Nolan [address] [place] [address] HISTORY OF PRESENT ILLNESS: Miguel Sanchez is a 67 y.o. male patient presenting for an outpatient cardiology visit. 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 At the time, patient complained [...] mouth daily. inhalational spacing device (Chris Aerosol [place] Enhancer) Spacer by [facility].(Non- Drug; Combo Route) route. magnesium hydroxide (Milk [...] Miguel Sanchez. Sincerely, Freedom Sunshine MD Interventional Hog Ringer 04/28/2023 CC: ELSIE Espinoza I have seen [...] 2:20 PM EDT [place] [address] Austin Simon MD [facility] [place] [address] Scheduled Referrals Name Type Priority Associated Diagnoses Order Schedule Referral to Cardiac Electrophysiology Outpatient Referral Routine HFrEF (heart failure with reduced ejection fraction) Ordered: 04/28/2023 documented as of this encounter Visit Diagnoses Diagnosis HFrEF (heart failure with reduced ejection fraction) documented in this encounter Care Teams Hat Trimmer Relationship Specialty Start Date End Date Reinier Arceo PA [address] [facility] [address] [place] [address] PCP - General Internal Medicine 01/18/23 documented as of this encounter
--- OUTSIDE RECORDS SUMMARY | 2024-02-04 12:55 | XMS_ITS | Encounter Summary ---
Author Organization [facility] [place] [address] Care Team Providers Care Surgery Center Administrator Name Role Phone Reinier Arceo Primary Care Provider [phone] Encounter Details Date Type Department Care Team [...] 2:20 PM EDT Procedure visit Urology at [facility] [place] [address] Austin Simon MD [facility] [place] [address] documented as of this encounter Visit Diagnoses Not on filedocumented in this encounter Care Teams Surgery Center Administrator Relationship Specialty Start Date End Date Reinier Arceo PA [address] [place] [address] PCP - General Internal Medicine 01/18/23 documented as of this encounter
--- OUTSIDE RECORDS SUMMARY | 2024-02-04 12:55 | XMS_ITS | Encounter Summary ---
Author Organization [facility] [address] Care Team Providers Care Classer Name Role Phone Reinier Arceo Primary Care Provider [phone] Reason for Visit * Reason Onset Date Comments Medication Refill 07/12/2023 Encounter Details Date Type Department Care Team (Late st Contact Info) Description 07/12/2023 Telephone Urology at [facility] [place] [address] Martin Elizabeth, petroleum sampler Refill Social History Tobacco Use Types Packs/Day Years Used Date Smoking Tobacco: Never Smokeless Tobacco: Never Alcohol Use Standard Drinks/Week Comments Never 0 (1 standard drink = 0.6 oz pur e alcohol) [facility] Inpatient Questions Answer Date Recorded Does Anyone [...] like to do repeat void trial at [facility] at time of next alfaro exchange. We [...] 2:20 PM EDT Procedure [place] [address] Austin Simon MD [facility] [place] [address] documented as of this encounter Visit Diagnoses Not on filedocumented in this encounter Care Teams Classer Relationship Specialty Start Date End Date Reinier Arceo PA [address] [place] [address] PCP - General Internal Medicine 01/18/23 documented as of this encounter
--- OUTSIDE RECORDS SUMMARY | 2024-02-04 12:55 | XMS_ITS | Encounter Summary ---
Author Organization [facility] [place] [address] Care Team Providers Care Business Process Representative Name Role Phone Reinier Arceo Primary Care Provider [phone] Encounter Details Date Type Department Care Team [...] 2:20 PM EDT Procedure [place] [address] Austin Simon MD [facility] [place] [place] [address] documented as of this encounter Visit Diagnoses Not on filedocumented in this encounter Care Teams Business Process Representative Relationship Specialty Start Date End Date Reinier Arceo PA [address] [place] [address] PCP - General Internal Medicine 01/18/23 documented as of this encounter
--- OUTSIDE RECORDS SUMMARY | 2024-02-04 12:55 | XMS_ITS | Encounter Summary ---
Author Organization [facility] [place] [address] Care Team Providers Care Ginning Operator Name Role Phone Reinier Arceo Primary Care Provider [phone] Encounter Details Date Type Department Care Team (Latest Contact Info) Description 06/23/2023 2:30 PM EST Laboratory Appointment Lab [address] [place] [address] Chronic kidney disease, unspecified CKD stage; Stage 3 chronic kidney disease, unspecified whether stage 3a or 3b CKD Social History Tobacco Use Types Packs/Day Years Used Date Smoking Tobacco: Never Smokeless Tobacco: Never Alcohol Use Standard Drinks/Week Comments Never 0 (1 standard drink = 0.6 oz pur e alcohol) [facility] Inpatient Questions Answer Date Recorded Does Anyone [...] 2:20 PM EDT [place] [address] Austin Simon MD [facility] [place] [address] documented as of this encounter Procedures Procedure Name Priority Date/Time Associated Diagnosis Comments IMMUNOGLOBULIN FREE LIGHT CHAINS, SERUM Routine 06/23/2023 2:43 PM EST Chronic kidney disease, unspecified CKD stage PTH Routine 06/23/2023 2:43 PM EST Chronic kidney disease, unspecified CKD stage HEMOGRAM Routine 06/23/2023 2:43 PM EST Chronic kidney disease, unspecified CKD stage DIFFERENTIAL, AUTOMATED Routine 06/23/2023 2:43 PM EST Chronic kidney disease, unspecified CKD stage CYSTATIN C Routine 06/23/2023 2:43 PM EST Chronic kidney disease, unspecified CKD stage IRON AND TIBC Routine 06/23/2023 2:43 PM EST Chronic kidney disease, unspecified CKD stage VITAMIN D, 25-HYDROXY Routine 06/23/2023 2:43 PM EST Chronic kidney disease, unspecified CKD stage Stage 3 chronic kidney disease, unspecified whether stage 3a or 3b CKD CBC (WITH DIFF) Routine 06/23/2023 2:43 PM EST Chronic kidney disease, unspecified CKD stage URIC ACID Routine 06/23/2023 2:43 PM EST Chronic kidney disease, unspecified CKD stage PHOSPHORUS Routine 06/23/2023 2:43 PM EST Chronic kidney disease, unspecified CKD stage FERRITIN Routine 06/23/2023 2:43 PM EST Chronic kidney disease, unspecified CKD stage ALBUMIN LEVEL Routine 06/23/2023 2:43 PM EST Chronic kidney disease, unspecified CKD stage BASIC METABOLIC PANEL Routine 06/23/2023 2:43 PM EST Chronic kidney disease, unspecified CKD stage documented in this encounter Results * Differential, Automated (06/23/2023 2:43 PM EST) Pathologist [facility] Neutrophil % 69.8 % [facility] Neutrophil Absolute 5.06 1.70 - 6.10 x10(3)/[facility] LAB[facility] Lymph % 19.0 % [facility] Lymphocytes Abs 1.4 0.9 - 3.2 x10(3)/[facility] Monocyte % 8.1 % [facility] Monocyte Abs 0.6 0.3 - 0.9 x10(3)/[facility] Eos % 1.8 % [facility] Eosinophils Abs 0.1 0.0 - 0.4 x10(3)/[facility] Basophil % 1.0 % [facility] Baso Absolute 0.1 0.0 - 0.1 x10(3)/[facility] Immature Gran % 0.30 % [facility] Comment: Immature granulocytes(IG's)percentage and absolute count will include metamyelocytes, myelocytes, and promyelocytes. Blood smears from CBCs yielding IG's will be scanned manually for concordance. If this scan disagrees with the automated IG or if promyelocytes are noted, a manual differential will be performed. Immature Gran Absolute 0.02 0.00 - 0.04 x10(3)/[facility] Blood 06/23/2023 2:43 PM EST 06/23/2023 2:49 PM EST Narrative Resulting Agency Comment Spec In Lab Deonte Lugo MD HEMATOLOGY ORDERABL ES [facility] [place] [address] * (ABNORMAL) Hemogram (06/23/2023 2:43 PM EST) White Blood Cell 7.2 4.0 - 9.5 x10(3)/mc L [facility] Red Blood Cell 4.16(L) 4.58 - 5.54 x10(6)/mc L [facility] Hemoglobin 12.1(L) 13.7 - 16.5 g/dL [facility] Hematocrit 35.6(L) 40.5 - 48.5 % [facility] Mean Cell Volume 85.6 82.9 - 93.1 fL [facility] Mean Cell Hemoglobin 29.1 27.5 - 32.1 pg [facility] Mean Cell Hemoglobin Concentration 34.0 32.0 - 35.7 g/dL [facility] Platelet 205 145 - 357 x10(3)/mc L [facility] RDW Standard Deviation 42.2 36.0 - 45.0 fL [facility] RDW coefficient of variation 13.6 11.4 - 13.8 % [facility] Mean Platelet Volume 12.1 7.6 - 12.9 fL [facility] NRBC% auto 0.0 % [facility] NRBC Absolute 0.000 0.000 - 0.000 x10(3)/mc L [facility] Blood 06/23/2023 2:43 PM EST 06/23/2023 2:49 PM EST Narrative Resulting Agency Comment Spec In Lab Deonte Lugo MD HEMATOLOGY ORDERABL ES Performing Organization Address City/State/[facility] Co de Phone Number [facility] [place] [address] * (ABNORMAL) Basic Metabolic Panel (non-fasting) (06/23/2023 2:43 PM EST) Glucose 110 65 - 199 mg/dL [facility] Comment:Diabetes: >=200 mg/d L plus symptoms Blood Urea Nitrogen 17 10 - 20 mg/dL [facility] Creatinine 2.10(H) 0.80 - 1.50 mg/dL [facility] Sodium 134(L) 135 - 145 mmol/L [facility] Potassium 4.7 3.5 - 5.0 mmol/L [facility] Comment: Please note: ??Patients with WBC >100,000 may have falsely elevated Potassium levels. ??For accurate Potassium quantification in these patients send serum separator tube (gold top) for subsequent determinations. ??Contact the Clinical Chemistry Laboratory if there are any questions. Chloride 101 98 - 107 mmol/L [facility] Carbon Dioxide 20(L) 22 - 31 mmol/L [facility] Anion Gap 13 5 - 15 mmol/L [facility] Calcium 8.9 8.5 - 10.5 mg/dL [facility] Est Glomerular Filtration Rate 34(L) >=60 mL/min/1. 73 m?? [facility] Comment: This patient's estimated [...] Brantley MD CHEMISTRY ORDERABLES Performing Organization Address [facility] Phone Number [facility] [place] [address] * (ABNORMAL) PTH (06/23/2023 2:43 PM EST) Parathyroid Hormone 110(H) 15 - 65 pg/mL [facility] Blood 06/23/2023 2:43 PM EST 06/23/2023 2:49 PM EST Narrative Resulting Agency Comment Spec In Lab Abel Brantley MD CHEMISTRY ORDERABLES Performing Organization Address [facility] Phone Number [facility] [place] [address] * (ABNORMAL) Ferritin (06/23/2023 2:43 PM EST) Ferritin 596(H) 31 - 409 ng/mL [facility] Comment: Please note that as of 06/02/2023, the reference intervals for Ferritin have been updated. Blood 06/23/2023 2:43 PM EST 06/23/2023 2:49 PM EST Narrative Resulting Agency Comment Spec In Lab Abel Brantley MD CHEMISTRY ORDERABLES Performing Organization Address [facility] Co de Phone Number [facility] [place] [address] * (ABNORMAL) Vitamin D, 25-Hydroxy (06/23/2023 2:43 PM EST) Vitamin D Total 25 OH 13(L) 21 - 100 ng/mL [facility] Vit D Interp Deficient [facility] Blood 06/23/2023 2:43 PM EST 06/23/2023 2:49 PM EST Narrative Resulting Agency Comment Spec In Lab Abel Brantley MD CHEMISTRY ORDERABLES Performing Organization Address City/State/[facility] Co de Phone Number [facility] [place] [address] * (ABNORMAL) Cystatin C (06/23/2023 2:43 PM EST) Pathologist [facility] Cystatin C (OCTOBER) 2.81(H) 0.67 - 1.21 mg/L [facility] Comment: Test Performed by: [place] [address] Physician Non Invasive Cardiologist: Jimmy Zavala M.D. Ph.D.; CLIA# [id number] Cystatin C Egfr (OCTOBER) 19(L) >60 mL/min/BS A [facility] Comment: Estimated GFR calculated using the [...] with the new assay. Test Performed by: [place] [address] Physician Non Invasive Cardiologist: Jimmy Zavala M.D. Ph.D.; CLIA# [id number] Blood 06/23/2023 2:43 PM EST 06/23/2023 4:05 PM EST Narrative Resulting Agency Comment Spec In Lab Abel Brantley MD LAB SEND OUT ORDERAB LES Performing Organization Address [facility] Co de Phone Number [facility] [place] [address] * (ABNORMAL) Iron and TIBC (06/23/2023 2:43 PM EST) Iron 53 45 - 160 mcg/dL [facility] TIBC 170(L) 250 - 450 mcg/dL [facility] Iron Saturation 31 20 - 50 % [facility] Blood 06/23/2023 2:43 PM EST 06/23/2023 2:49 PM EST Narrative Resulting Agency Comment Spec In Lab Abel Brantley MD CHEMISTRY ORDERABLES Performing Organization Address [facility] de Phone Number [facility] [place] [address] * (ABNORMAL) Free Light Chains, Serum (06/23/2023 2:43 PM EST) Gumlog Free Light Chain 7.48(H) 0.72 - 2.75 mg/dL [facility] Lambda Free Light Chain 4.87(H) 0.57 - 2.15 mg/dL [facility] Gumlog/Lambda FLC Ratio 1.5359 0.4000 - 2.5800 [facility] Blood 06/23/2023 2:43 PM EST 06/23/2023 2:49 PM EST Narrative Resulting Agency Comment Spec In Lab Abel Brantley MD CHEMISTRY ORDERABLES Performing Organization Address [facility] Co de Phone Number [facility] [place] [address] * Albumin Level (06/23/2023 2:43 PM EST) Albumin 3.8 3.2 - 5.2 g/dL [facility] Blood 06/23/2023 2:43 PM EST 06/23/2023 2:49 PM EST Narrative Resulting Agency Comment Spec In Lab Abel Brantley MD CHEMISTRY ORDERABLES Performing Organization Address [facility] Co de Phone Number [facility] [place] [address] * Phosphorus (06/23/2023 2:43 PM EST) Phosphorus 3.4 2.5 - 4.5 mg/dL [facility] Blood 06/23/2023 2:43 PM EST 06/23/2023 2:49 PM EST Narrative Resulting Agency Comment Spec In Lab Abel Brantley MD CHEMISTRY ORDERABLES Performing Organization Address City/[facility] Co de Phone Number [facility] [place] [address] * Uric acid (06/23/2023 2:43 PM EST) Uric Acid 7.7 3.5 - 8.5 mg/dL [facility] Blood 06/23/2023 2:43 PM EST 06/23/2023 2:49 PM EST Narrative Resulting Agency Comment Spec In Lab Abel Brantley MD CHEMISTRY ORDERABLES Performing Organization Address [facility] Co de Phone Number [facility] [place] [address] documented in this encounter Visit Diagnoses Diagnosis Chronic kidney disease, unspecified CKD stage Stage 3 chronic kidney disease, unspecified whether stage 3a or 3b CKD documented in this encounter Care Teams Ginning Operator Relationship Specialty Start Date End Date Reinier Arceo PA [address] [place] [address] PCP - General Internal Medicine 01/18/23 documented as of this encounter
--- OUTSIDE RECORDS SUMMARY | 2024-02-04 12:55 | XMS_ITS | Encounter Summary ---
Author Organization [facility] [place] [address] Care Team Providers Care Diesel Mechanic Construction Name Role Phone Adis Reinier ELSIE Primary Care Provider [phone] Encounter Details Date Type Department Care Team (Late st Contact Info) Description 07/13/2023 [place] [address] Meche Donato APRN [facility] [place] [address] Social History Tobacco Use Types Packs/Day Years [...] 2:20 PM EDT [place] [address] Austin Simon MD [facility] [place] [address] documented as of this encounter Visit Diagnoses Not on filedocumented in this encounter Care Teams Diesel Mechanic Construction Relationship Specialty Start Date End Date Reinier Arceo PA [address] [place] [address] PCP - General Internal Medicine 01/18/23 documented as of this encounter
--- OUTSIDE RECORDS SUMMARY | 2024-02-04 12:55 | XMS_ITS | Encounter Summary ---
Author Organization [facility] Address [facility] [place] [address] Care Team Providers Care Lead Developer Name Role Phone Reinier Arceo Primary Care Provider [phone] Encounter Details Date Type Department Care Team (Late st Contact Info) Description 03/03/2023 Telephone Nephrology [place] [address] Courtney Sainz Social History Tobacco Use Types Packs/Day Years Used Date Smoking Tobacco: Never Alcohol Use Standard Drinks/Week Comments Never 0 (1 standard drink = 0.6 oz pur e alcohol) [facility] Inpatient Questions Answer Date Recorded Does Anyone [...] 03/03/2023 11:08 AM EDT LM with patients case assistant Randa to call and schedule a follow up appointment documented in this encounter Plan of Treatment Upcoming Encounters Date Type Department Care Team (Late st Contact Info) Description 04/06/2024 2:20 PM EDT Procedure [place] [address] Austin Simon MD [facility] [place] [address] documented as of this encounter Visit Diagnoses Not on filedocumented in this encounter Care Teams Lead Developer Relationship Specialty Start Date End Date Reinier Arceo PA [address] [place] [address] PCP - General Internal Medicine 01/18/23 documented as of this encounter
--- OUTSIDE RECORDS SUMMARY | 2024-02-04 12:55 | XMS_ITS | Encounter Summary ---
Author Organization [facility] [place] [address] Care Team Providers Care Automatic Shirring Machine Operator Name Role Phone Reinier Arceo Primary Care Provider [phone] Encounter Details Date Type Department Care Team [...] 2:20 PM EDT Procedure [place] [address] Austin Simon MD [facility] [place] [address] documented as of this encounter Visit Diagnoses Not on filedocumented in this encounter Care Teams Automatic Shirring Machine Operator Relationship Specialty Start Date End Date Reinier Arceo PA [address] [place] [address] PCP - General Internal Medicine 01/18/23 documented as of this encounter
--- OUTSIDE RECORDS SUMMARY | 2024-02-04 12:55 | XMS_ITS | Encounter Summary ---
Author Organization [facility] [place] [address] Care Team Providers Care Desk Pens Assembler Name Role Phone Reinier Arceo Primary Care Provider [phone] Encounter Details Date Type Department Care Team [...] 2:20 PM EDT Procedure visit Urology at [facility] [place] [address] Austin Simon MD [facility] [place] [address] documented as of this encounter Visit Diagnoses Not on filedocumented in this encounter Care Teams Desk Pens Assembler Relationship Specialty Start Date End Date Reinier Arceo PA [address] [place] [address] PCP - General Internal Medicine 01/18/23 documented as of this encounter
--- OUTSIDE RECORDS SUMMARY | 2024-02-04 12:55 | XMS_ITS | Encounter Summary ---
[facility] [place] [address] Care Team Providers Care Paper Wrapping Machine Operator Name Role Phone Reinier Arceo Primary Care Provider [phone] Reason for Referral * Diagnostic Test (Routine) - Closed Specialty Diagnoses / Procedures Referred By Contac t Referred To Contact Radiology Diagnoses Benign prostatic hyperplasia with urinary retention Scrotal swelling Procedures CT Pelvis Soft Tissue (GI CASINO CHANGE ATTENDANT) wo Contrast Meche Donato APRN [facility] [place] [address] [facility] [place] [address] Referral ID Status Reason Start Date Expiration Date V isits Requested Visits Authorized [id number] Closed Specialty Service Requested 07/07/2023 01/04/2025 1 1 Reason for Visit * Diagnostic Test (Routine) - Closed Specialty Diagnoses / Procedures Referred By Contac t Referred To Contact Radiology Diagnoses Benign prostatic hyperplasia with urinary retention Scrotal swelling Procedures CT Pelvis Soft Tissue (GI CASINO CHANGE ATTENDANT) wo Contrast Meche Donato APRN [facility] [place] [address] [facility] [place] [address] Referral ID Status Reason Start Date Expiration Date V isits Requested Visits Authorized [id number] Closed Specialty Service Requested 07/07/2023 01/04/2025 1 1 Encounter Details Date Type Department Care Team (Latest Contact Info) Description 09/14/2023 10:43 AM EDT - 09/14/2023 11:59 PM EDT Hospital Encounter CT Scan at [facility] [place] [address] Meche Donato APRN [facility] [place] [id number] Benign prostatic hyperplasia with urinary retention; Scrotal swelling Discharge Disposition: Home Social History Tobacco Use Types Packs/Day Years Used Date Smoking Tobacco: Never Smokeless Tobacco: Never Alcohol Use Standard Drinks/Week Comments Never 0 (1 standard drink = 0.6 oz pur e alcohol) [facility] Inpatient Questions Answer Date Recorded Does [...] 2:20 PM EDT Procedure [place] [address] Austin Simon MD [facility] [place] [address] documented as of this encounter Procedures Procedure Name Priority Date/Time Associated Diagnosis Comments CT PELVIS SOFT TISSUE (GI CASINO CHANGE ATTENDANT) WO CONTRAST Routine 09/14/2023 1:38 PM EDT Benign prostatic hyperplasia with urinary retention Scrotal swelling documented in this encounter Results * CT Pelvis Soft Tissue (GI CASINO CHANGE ATTENDANT) wo Contrast (09/14/2023 1:38 PM EDT) Anatomical [...] who have questions please contact the health acute care physical therapist that requested your imaging first. ? Narrative 09/14/2023 4:39 PM EDT EXAMINATION: CT PELVIS SOFT TISSUE (GI CASINO CHANGE ATTENDANT) WO CONTRAST CLINICAL HISTORY: prostate sizing and [...] 09/14/2023 EXAMINATION: CT PELVIS SOFT TISSUE (GI CASINO CHANGE ATTENDANT) WO CONTRAST CLINICAL HISTORY: prostate sizing and [...] patients who have questions please contactthe health acute care physical therapist that requested your imaging first. Meche Donato APRN IMG CT ORDERABLES documented in this encounter Visit Diagnoses Diagnosis Benign prostatic hyperplasia with urinary retention Scrotal swelling Edema of male genital organs documented in this encounter Care Teams Paper Wrapping Machine Operator Relationship Specialty Start Date End Date Reinier Arceo PA [address] [place] [address] PCP - General Internal Medicine 01/18/23 documented as of this encounter
--- OUTSIDE RECORDS SUMMARY | 2024-02-04 12:55 | XMS_ITS | Encounter Summary ---
Author Organization [facility] Address [facility] [address] Care Team Providers Care Project Buyer Name Role Phone Reinier Arceo Primary Care Provider [phone] Encounter Details Date Type Department Care Team (Late st Contact Info) Description 02/01/2024 Transcribe Orders eDH Incoming Referrals [phone] Reinier Arceo PA [address] [facility] [place], [place] [id number] Social History Tobacco Use Types Packs/Day Years [...] 2:20 PM EDT Procedure [place] [address] Austin Simon MD [facility] [address] documented as of this encounter Visit Diagnoses Not on filedocumented in this encounter Care Teams Project Buyer Relationship Specialty Start Date End Date Reinier Arceo PA [address] [place] [address] PCP - General Internal Medicine 01/18/23 documented as of this encounter
--- OUTSIDE RECORDS SUMMARY | 2024-02-04 12:55 | XMS_ITS | Encounter Summary ---
Author Organization [facility] [place] [address] Care Team Providers Care Manager Software Name Role Phone Reinier Arceo Primary Care Provider [phone] Encounter Details Date Type Department Care Team (Late st Contact Info) Description 11/23/2023 Telephone Neph[place] [address] Courtney Sainz Social History Tobacco Use Types [...] 2:20 PM EDT Procedure [place] [address] Austin Simon MD [facility] [place] [address] documented as of this encounter Visit Diagnoses Not on filedocumented in this encounter Care Teams Manager Software Relationship Specialty Start Date End Date Reinier Arceo PA [address] [place] [address] PCP - General Internal Medicine 01/18/23 documented as of this encounter
--- OUTSIDE RECORDS SUMMARY | 2024-02-04 12:55 | XMS_ITS | Encounter Summary ---
Author Organization [facility] [place] [address] Care Team Providers Care Independent Sales Representative Name Role Phone Reinier Arceo Primary Care Provider [phone] Encounter Details Date Type Department Care Team (Latest Contact Info) Description 08/04/2023 1:05 PM EST Laboratory Appointment Lab [address] [place] [address] Chronic kidney disease, unspecified CKD [...] 2:20 PM EDT [place] [address] Austin Simon MD [facility] [place] [address] documented as of this encounter Procedures Procedure Name Priority Date/Time Associated Diagnosis Comments PHOSPHORUS Routine 08/04/2023 12:55 PM EST Chronic kidney disease, unspecified CKD stage BASIC METABOLIC PANEL Routine 08/04/2023 12:55 PM EST Chronic kidney disease, unspecified CKD stage documented in this encounter Results * (ABNORMAL) Basic Metabolic Panel (non-fasting) (08/04/2023 12:55 PM EST) Glucose 153 65 - 199 mg/dL [facility] Comment:Diabetes: >=200 mg/d L plus symptoms Blood Urea Nitrogen 17 10 - 20 mg/dL [facility] Creatinine 2.02(H) 0.80 - 1.50 mg/dL [facility] Sodium 134(L) 135 - 145 mmol/L [facility] Potassium 4.8 3.5 - 5.0 mmol/L [facility] Comment: Please note: ??Patients with WBC >100,000 may have falsely elevated Potassium levels. ??For accurate Potassium quantification in these patients send serum separator tube (gold top) for subsequent determinations. ??Contact the Clinical Chemistry Laboratory if there are any questions. Chloride 98 98 - 107 mmol/L [facility] Carbon Dioxide 23 22 - 31 mmol/L [facility] Anion Gap 13 5 - 15 mmol/L [facility] Calcium 9.6 8.5 - 10.5 mg/dL [facility] Est Glomerular Filtration Rate 35(L) >=60 mL/min/1. 73 m?? [facility] Comment: This patient's estimated GFR [...] In Lab Abel Brantley MD CHEMISTRY ORDERABLES [facility] [place] [address] * Phosphorus (08/04/2023 12:55 PM EST) Phosphorus 3.4 2.5 - 4.5 mg/dL [facility] Blood 08/04/2023 12:5 5 PM EST 08/04/2023 1:44 PM EST Narrative Resulting Agency Comment Spec In Lab Abel Brantley MD CHEMISTRY ORDERABLES Performing Organization Address [facility] Co de Phone Number [facility] [place] [address] documented in this encounter Visit Diagnoses Diagnosis Chronic kidney disease, unspecified CKD stage documented in this encounter Care Teams Independent Sales Representative Relationship Specialty Start Date End Date Reinier Arceo PA [address] [place] [address] PCP - General Internal Medicine 01/18/23 documented as of this encounter
--- OUTSIDE RECORDS SUMMARY | 2024-02-04 12:55 | XMS_ITS | Encounter Summary ---
Author Organization [facility] Address [facility] [place] [address] Care Team Providers Care Ship Runner Name Role Phone Reinier Arceo Primary Care Provider [phone] Encounter Details Date Type Department Care Team (Latest Contact Info) Description 02/24/2023 4:00 PM EDT Office Visit [place] [id number] Deonte Lugo MD [facility] [place] [address] Chronic kidney disease, unspecified CKD stage; Chronic [...] 4:00 PM EDT Hypertension-Nephrology Consultation Miguel Sanchez [phone] ID: [id number] y.o. old male seen [...] with spacer inhalational spacing device (Chris Aerosol [place] Enhancer) Spacer by [facility]Non- Drug; Combo Route) route. nitroGLYcerin (Nitrostat) 0.4 [...] from 02/24/2023 in Nephrology Hypertension at [facility] Height 165.1 cm (5' 5) Heart Rate [...] ADLs. Went back to hospital briefly [facility] and is now in Rehab where he's [...] [facility] urology next week [facility] for another voiding trial. He failed one [...] (c holecalciferol 5000 U daily or ergocalciferol 83149 U weekly). I phoned Miguel after the [...] Deonte Lugo MD Nephrology-Hypertension Fellow * Yolis Crawofrd MD - 02/24/2023 4:00 PM EDT Nephrology [...] 2:20 PM EDT [place] [address] Austin Simon MD [facility] [place] [address] documented as of this encounter Procedures Procedure Name Priority Date/Time Associated Diagnosis Comments PTH Routine 02/24/2023 5:27 PM EDT Chronic kidney disease, unspecified CKD stage HEMOGRAM STAT 02/24/2023 5:27 PM EDT Chronic kidney disease, unspecified CKD stage DIFFERENTIAL, AUTOMATED STAT 02/24/2023 5:27 PM EDT Chronic kidney disease, unspecified CKD stage VITAMIN D, 25-HYDROXY Routine 02/24/2023 5:27 PM EDT Chronic kidney disease, unspecified CKD stage Chronic kidney disease, stage 4 (severe) CBC (WITH DIFF) STAT 02/24/2023 5:27 PM EDT Chronic kidney disease, unspecified CKD stage PHOSPHORUS Routine 02/24/2023 5:27 PM EDT Chronic kidney disease, unspecified CKD stage BASIC METABOLIC PANEL Routine 02/24/2023 5:27 PM EDT Chronic kidney disease, unspecified CKD stage PROTEIN/CREATININE RATIO, URINE Routine 02/24/2023 4:00 PM EDT Chronic kidney disease, unspecified CKD stage U ALBUMIN/CRE RATIO Routine 02/24/2023 4 :00 PM EDT Chronic kidney disease, unspecified CKD stage SODIUM, URINE, RANDOM Routine 02/24/2023 4:00 PM EDT documented in this encounter Results * (ABNORMAL) Differential, Automated (02/24/2023 5:27 PM EDT) Neutrophil % 78.1 % [facility] Neutrophil Absolute 5.03 1.70 - 6.10 x10(3)/mc L [facility] Lymph % 12.7 % [facility] Lymphocytes Abs 0.8(L) 0.9 - 3.2 x10(3)/mc L [facility] Monocyte % 6.0 % [facility] Monocyte Abs 0.4 0.3 - 0.9 x10(3)/mc L [facility] Eos % 2.3 % [facility] Eosinophils Abs 0.2 0.0 - 0.4 x10(3)/mc L [facility] Basophil % 0.6 % [facility] Baso Absolute 0.0 0.0 - 0.1 x10(3)/mc L [facility] Immature Gran % 0.30 % [facility] Comment: Immature granulocytes(IG's)percentage and absolute count will include metamyelocytes, myelocytes, and promyelocytes. Blood smears from CBCs yielding IG's will be scanned manually for concordance. If this scan disagrees with the automated IG or if promyelocytes are noted, a manual differential will be performed. Immature Gran Absolute 0.02 0.00 - 0.04 x10(3)/mc L [facility] Blood 02/24/2023 5:27 PM EDT 02/24/2023 5:35 PM EDT Narrative Resulting Agency Comment Spec In Lab Deonte Lugo MD HEMATOLOGY ORDERABL ES [facility] [place] [address] * (ABNORMAL) Hemogram (02/24/2023 5:27 PM EDT) White Blood Cell 6.4 4.0 - 9.5 x10(3)/mc L [facility] Red Blood Cell 3.96(L) 4.58 - 5.54 x10(6)/mc L [facility] Hemoglobin 12.1(L) 13.7 - 16.5 g/dL [facility] Hematocrit 35.2(L) 40.5 - 48.5 % [facility] Mean Cell Volume 88.9 82.9 - 93.1 fL [facility] Mean Cell Hemoglobin 30.6 27.5 - 32.1 pg [facility] Mean Cell Hemoglobin Concentration 34.4 32.0 - 35.7 g/dL [facility] Platelet 186 145 - 357 x10(3)/mc L [facility] RDW Standard Deviation 40.8 36.0 - 45.0 fL [facility] RDW coefficient of variation 12.4 11.4 - 13.8 % [facility] Mean Platelet Volume 12.3 7.6 - 12.9 fL [facility] NRBC% auto 0.3 % [facility] NRBC Absolute 0.020(H) 0.000 - 0.000 x10(3)/mc L [facility] Blood 02/24/2023 5:27 PM EDT 02/24/2023 5:35 PM EDT Narrative Resulting Agency Comment Spec In Lab Deonte Lugo MD HEMATOLOGY ORDERABL ES Performing Organization Address City/[facility]/ZIP Co de Phone Number [facility] [place] [address] * Phosphorus (02/24/2023 5:27 PM EDT) Phosphorus 3.3 2.5 - 4.5 mg/dL [facility] Blood 02/24/2023 5:27 PM EDT 02/24/2023 5:35 PM EDT Narrative Resulting Agency Comment Spec In Lab Yolis Crawford MD CHEMISTRY ORDERABLES Performing Organization Address [facility] Co de Phone Number [facility] [place] [address] * (ABNORMAL) PTH (02/24/2023 5:27 PM EDT) Parathyroid Hormone 144(H) 15 - 65 pg/mL [facility] Blood 02/24/2023 5:27 PM EDT 02/24/2023 5:35 PM EDT Narrative Resulting Agency Comment Spec In Lab Yolis Crawford MD CHEMISTRY ORDERABLES Performing Organization Address [facility] Co de Phone Number [facility] [place] [address] * (ABNORMAL) Vitamin D, 25-Hydroxy (02/24/2023 5:27 PM EDT) Vitamin D Total 25 OH 16(L) 21 - 100 ng/mL [facility] Vit D Interp Deficient [facility] Blood 02/24/2023 5:27 PM EDT 02/24/2023 5:35 PM EDT Narrative Resulting Agency Comment Spec In Lab Yolis Crawford MD CHEMISTRY ORDERABLES Performing Organization Address City/[facility]/ZIP Co de Phone Number [facility] [place] [address] * (ABNORMAL) Basic Metabolic Panel (non-fasting) (02/24/2023 5:27 PM EDT) Glucose 126 65 - 199 mg/dL [facility] Comment:Diabetes: >=200 mg/d L plus symptoms Blood Urea Nitrogen 49(H) 10 - 20 mg/dL [facility] Creatinine 4.18(H) 0.80 - 1.50 mg/dL [facility] Sodium 137 135 - 145 mmol/L [facility] Potassium 4.5 3.5 - 5.0 mmol/L [facility] Comment: Please note: ??Patients with WBC >100,000 may have falsely elevated Potassium levels. ??For accurate Potassium quantification in these patients send serum separator tube (gold top) for subsequent determinations. ??Contact the Clinical Chemistry Laboratory if there are any questions. Chloride 104 98 - 107 mmol/L [facility] Carbon Dioxide 20(L) 22 - 31 mmol/L [facility] Anion Gap 13 5 - 15 mmol/L [facility] Calcium 9.4 8.5 - 10.5 mg/dL [facility] Est Glomerular Filtration Rate 15(L) >=60 mL/min/1. 73 m?? [facility] Comment: This patient's estimated [...] In Lab Yolis Crawford MD CHEMISTRY ORDERABLES [facility] [place] [address] * Sodium, urine, random (02/24/2023 4:00 PM EDT) Sodium, Urine <20 mmol/L [facility] Urine Urine / Unknown 02/24/2023 4 :00 PM EDT 02/24/2023 5:25 PM EDT Narrative Resulting Agency Comment Spec In Lab Deonte Lugo MD URINE ORDERABLES [facility] [address] * (ABNORMAL) Protein/Creatinine Ratio, urine (02/24/2023 4:00 PM EDT) Creatinine, Urine 64 mg/dL [facility] Protein, Urine 28(H) 0 - 12 mg/dL [facility] Protein / Creatinine Ratio, Urine 0.4 ratio [facility] Urine 02/24/2023 4:00 PM EDT 02/24/2023 5:25 PM EDT Narrative Resulting Agency Comment Spec In Lab Yolis Crawford MD URINE ORDERABLES Performing Organization Address City/[facility]/ZIP Co de Phone Number [facility] [place] [address] * (ABNORMAL) U Albumin/Cre Ratio (02/24/2023 4:00 PM EDT) Albumin / Creatinin Ratio, Urine 196(H) 0 - 29 mcg/mg Cr [facility] Comment: Reference Ranges: <30 [...] [employer] Supplements (2012) 2, 357? 362 Albumin, Urine 125.5 mg/L [facility] Creatinine, Urine 64 mg/dL [facility] Urine 02/24/2023 4:00 PM EDT 02/24/2023 5:25 PM EDT Narrative Resulting Agency Comment Spec In Lab Yolis Crawford MD URINE ORDERABLES Performing Organization Address City/State/[facility] Co de Phone Number [facility] [place] [address] documented in this encounter Visit Diagnoses Diagnosis Chronic kidney disease, unspecified CKD stage Chronic kidney disease, stage 4 (severe) documented in this encounter Care Teams Ship Runner Relationship Specialty Start Date End Date Reinier Arceo PA [address] [place] [address] PCP - General Internal Medicine 01/18/23 documented as of this encounter
--- OUTSIDE RECORDS SUMMARY | 2024-02-04 12:55 | XMS_ITS | Encounter Summary ---
Author Organization [facility] Address [facility] [place] [address] Care Team Providers Care Qualitative Field Project Manager Name Role Phone Reinier Arceo Primary Care Provider [phone] Reason for Referral * Consultation (Routine) - Canceled Specialty Diagnoses / Procedures Referred By [facility] Referred To Contact Dermatology Diagnoses Atopic dermatitis, unspecified type Reinier Arceo PA [address] [place] [address] [facility] [address] [place] [address] Referral ID Status Reason Start Date Expiration Date V isits Requested Visits Authorized [id number] Canceled Consult, Test & Treat 02/02/2024 02/01/2025 6 6 Encounter Details Date Type Department Care Team (Latest Contact Info) Description 02/02/2024 Transcribe Orders eDH Incoming Referrals [phone] Reinier Arceo PA [address] [place] [address] Atopic dermatitis, unspecified type Social History Tobacco Use Types Packs/Day Years Used Date Smoking Tobacco: Never Smokeless Tobacco: Never Alcohol Use Standard Drinks/Week Comments Never 0 (1 standard drink = 0.6 oz pur e alcohol) [facility] Inpatient Questions Answer Date Recorded [...] 2:20 PM EDT Procedure [place] [address] Austin Simon MD [facility] [place] [address] Scheduled Referrals Name Type Priority Associated Diagnoses Orde r Schedule Referral to Dermatology Outpatient Referral Routine Atopic dermatitis, unspecified type Ordered: 02/02/2024 documented as of this encounter Visit Diagnoses Diagnosis Atopic dermatitis, unspecified type documented in this encounter Care Teams Qualitative Field Project Manager Relationship Specialty Start Date End Date Reinier Arceo PA [address] [place] [address] PCP - General Internal Medicine 01/18/23 documented as of this encounter
--- OUTSIDE RECORDS SUMMARY | 2024-02-04 12:55 | XMS_ITS | Encounter Summary ---
Author Organization [facility] [place] [address] Care Team Providers Care Switchboard Operator Receptionist Name Role Phone Reinier Arceo Primary Care Provider [phone] Encounter Details Date Type Department Care Team [...] 2:20 PM EDT Procedure visit Urology at [facility] [place] [address] Austin Simon MD [facility] [place] [address] documented as of this encounter Visit Diagnoses Not on filedocumented in this encounter Care Teams Switchboard Operator Receptionist Relationship Specialty Start Date End Date Reinier Arceo PA [address] [place] [address] PCP - General Internal Medicine 01/18/23 documented as of this encounter
--- OUTSIDE RECORDS SUMMARY | 2024-02-04 12:55 | XMS_ITS | Encounter Summary ---
Author Organization [facility] [place] [address] Care Team Providers Care Consultative Sales Associate Name Role Phone Reinier Arceo Primary Care Provider [phone] Encounter Details Date Type Department Care Team (Late st Contact Info) Description 09/17/2023 Telephone Urology at [facility] [place] [address] Meche Donato APRN [facility] [place] [address] Social History Tobacco Use Types Packs/Day Years Used Date Smoking Tobacco: Never Smokeless Tobacco: Never Alcohol Use Standard Drinks/Week Comments Never 0 (1 standard drink = 0.6 oz pur e alcohol) [facility] Inpatient Questions Answer Date Recorded [...] 2:20 PM EDT Procedure [place] [address] Austin Simon MD [facility] [place] [address] documented as of this encounter Visit Diagnoses Not on filedocumented in this encounter Care Teams Consultative Sales Associate Relationship Specialty Start Date End Date Reinier Arceo PA [address] [place] [address] PCP - General Internal Medicine 01/18/23 documented as of this encounter
--- OUTSIDE RECORDS SUMMARY | 2024-02-04 12:55 | XMS_ITS | Encounter Summary ---
Author Organization [facility] [place] [address] Care Team Providers Care Service Desk Director Name Role Phone Reinier Arceo Primary Care Provider [phone] Encounter Details Date Type Department Care Team (Late st Contact Info) Description 01/31/2024 Telephone Urology at [facility] [place] [address] Hannah Carson, RN Social History Tobacco Use Types Packs/Day Years [...] as of this encounter Progress Notes * Hannah Carson RN - 01/31/2024 3:02 PM EDT Call returned to patient, reviewed questions regarding upcoming UDS. documented in this encounter Miscellaneous Notes * Telephone Encounter - Hannah Carson RN - 01/31/2024 2:54 PM EDT Copied from CRM #[id number]. Topic: Specialty Dept CRMs - Generic Call >> Jan 31, 2024 2:18 PM Alana Beltran wrote: Specialist: Alfred Relationship (if other than patient-full name): Patient Reason for Call: Patient calling to get more information about what his urodynamic study will entail. Please call to advise. documented in this encounter Plan of Treatment Upcoming Encounters Date Type Department Care Team (Late st Contact Info) Description 04/06/2024 2:20 PM EDT Procedure [place] [address] Austin Simon MD [facility] [place] [address] documented as of this encounter Visit Diagnoses Not on filedocumented in this encounter Care Teams Service Desk Director Relationship Specialty Start Date End Date Reinier Arceo PA [address] [place] [address] PCP - General Internal Medicine 01/18/23 documented as of this encounter
--- OUTSIDE RECORDS SUMMARY | 2024-02-04 12:55 | XMS_ITS | Encounter Summary ---
Author Organization [facility] Address [facility] [place] [address] Care Team Providers Care Netting Weaver Name Role Phone Reinier Arceo Primary Care Provider [phone] Encounter Details Date Type Department Care Team (Latest Contact Info) Description 06/23/2023 4:00 PM EST Office Visit [place] [address] Deonte uLgo MD [facility] [place] [address] Stage 3b chronic kidney disease (Primary Dx); [...] included. Nephrology-Hypertension Clinic Follow-up Note Miguel Sanchez [id number] ID: 67 y.o.year-old male for follow up [...] with spacer inhalational spacing device (Chris Aerosol Callaway Enhancer) Spacer by [facility]Non- Drug; Combo Route) route. nitroGLYcerin (Nitrostat) 0.4 [...] Visit from 06/23/2023 in Nephrology Hypert[place] at [facility] [place] Weight 83.5 kg (184 [...] in the past but never in a [facility] (I don't have access to these [...] as documented. Reina Yang MD Nephrology Pager: [phone] documented in this encounter Plan of Treatment Upcoming Encounters Date Type Department Care Team (Late st Contact Info) Description 04/06/2024 2:20 PM EDT Procedure [place] [address] Austin Simon MD [facility] [place] [address] documented as of this encounter Results * Uric acid (06/23/2023 2:43 PM EST) Uric Acid 7.7 3.5 - 8.5 mg/dL [facility] Blood 06/23/2023 2:43 PM EST 06/23/2023 2:49 PM EST Narrative Resulting Agency Comment Spec In Lab Abel Butler Karon OTT CHEMISTRY ORDERABLES Performing Organization Address [facility] Phone Number [facility] [place] [address] * Phosphorus (06/23/2023 2:43 PM EST) Phosphorus 3.4 2.5 - 4.5 mg/dL [facility] Blood 06/23/2023 2:43 PM EST 06/23/2023 2:49 PM EST Narrative Resulting Agency Comment Spec In Lab Abel Luke Brantley MD CHEMISTRY ORDERABLES Performing Organization Address [facility] Number [facility] [place] [address] * Albumin Level (06/23/2023 2:43 PM EST) Albumin 3.8 3.2 - 5.2 g/dL [facility] Blood 06/23/2023 2:43 PM EST 06/23/2023 2:49 PM EST Narrative Resulting Agency Comment Spec In Lab Abel Luke Brantley MD CHEMISTRY ORDERABLES Performing Organization Address [facility] Number [facility] [place] [address] * (ABNORMAL) Free Light Chains, Serum (06/23/2023 2:43 PM EST) [place] Free Light Chain 7.48(H) 0.72 - 2.75 mg/dL [facility] Lambda Free Light Chain 4.87(H) 0.57 - 2.15 mg/dL [facility] [place]/Lambda FLC Ratio 1.5359 0.4000 - 2.5800 [facility] Blood 06/23/2023 2:43 PM EST 06/23/2023 2:49 PM EST Narrative Resulting Agency Comment Spec In Lab Abel Brantley MD CHEMISTRY ORDERABLES Performing Organization Address [facility]/State/ZIP Co de Phone Number [facility] [place] [address] * (ABNORMAL) Iron and TIBC (06/23/2023 2:43 PM EST) Iron 53 45 - 160 mcg/dL [facility] TIBC 170(L) 250 - 450 mcg/dL [facility] Iron Saturation 31 20 - 50 % [facility] Blood 06/23/2023 2:43 PM EST 06/23/2023 2:49 PM EST Narrative Resulting Agency Comment Spec In Lab Abel Brantley MD CHEMISTRY ORDERABLES [facility] [place] [address] * (ABNORMAL) Cystatin C (06/23/2023 2:43 PM EST) Cystatin C (OCTOBER) 2.81(H) 0.67 - 1.21 mg/L [facility] Comment: Test Performed by: [facility] [place] [address] Research Assistant Professor: Jimmy Zavala M.D. Ph.D.; CLIA# [id number] Cystatin C Egfr (OCTOBER) 19(L) >60 mL/min/BS A [facility] Comment: Estimated GFR calculated using [...] with the new assay. Test Performed by: [place] [address] Research Assistant Professor: Jimmy Zavala M.D. Ph.D.; CLIA# [id number] Blood 06/23/2023 2:43 PM EST 06/23/2023 4:05 PM EST Narrative Resulting Agency Comment Spec In Lab Abel Brantley MD LAB SEND OUT ORDERAB LES Performing Organization Address [facility] Co de Phone Number [facility] [place] [address] * (ABNORMAL) Vitamin D, 25-Hydroxy (06/23/2023 2:43 PM EST) Vitamin D Total 25 OH 13(L) 21 - 100 ng/mL [facility] Vit D Interp Deficient [facility] Blood 06/23/2023 2:43 PM EST 06/23/2023 2:49 PM EST Narrative Resulting Agency Comment Spec In Lab Abel Brantley MD CHEMISTRY ORDERABLES Performing Organization Address [facility] Co de Phone Number [facility] [place] [address] * (ABNORMAL) Ferritin (06/23/2023 2:43 PM EST) Ferritin 596(H) 31 - 409 ng/mL [facility] Comment: Please note that as of 06/02/2023, the reference intervals for Ferritin have been updated. Blood 06/23/2023 2:43 PM EST 06/23/2023 2:49 PM EST Narrative Resulting Agency Comment Spec In Lab Abel Brantley MD CHEMISTRY ORDERABLES Performing Organization Address [facility] Co de Phone Number [facility] [place] [address] * (ABNORMAL) PTH (06/23/2023 2:43 PM EST) Parathyroid Hormone 110(H) 15 - 65 pg/mL [facility] Blood 06/23/2023 2:43 PM EST 06/23/2023 2:49 PM EST Narrative Resulting Agency Comment Spec In Lab Abel Brantley MD CHEMISTRY ORDERABLES Performing Organization Address [facility] Co de Phone Number [facility] [place] [address] * (ABNORMAL) Basic Metabolic Panel (non-fasting) (06/23/2023 2:43 PM EST) Glucose 110 65 - 199 mg/dL [facility] Comment:Diabetes: >=200 mg/d L plus symptoms Blood Urea Nitrogen 17 10 - 20 mg/dL [facility] Creatinine 2.10(H) 0.80 - 1.50 mg/dL [facility] Sodium 134(L) 135 - 145 mmol/L [facility] Potassium 4.7 3.5 - 5.0 mmol/L [facility] Comment: Please note: ??Patients with WBC >100,000 may have falsely elevated Potassium levels. ??For accurate Potassium quantification in these patients send serum separator tube (gold top) for subsequent determinations. ??Contact the Clinical Chemistry Laboratory if there are any questions. Chloride 101 98 - 107 mmol/L [facility] Carbon Dioxide 20(L) 22 - 31 mmol/L [facility] Anion Gap 13 5 - 15 mmol/L [facility] Calcium 8.9 8.5 - 10.5 mg/dL [facility] Est Glomerular Filtration Rate 34(L) >=60 mL/min/1. 73 m?? [facility] Comment: This patient's estimated GFR [...] In Lab Abel Brantley MD CHEMISTRY ORDERABLES [facility] [place] [address] documented in this encounter Visit Diagnoses Diagnosis Stage 3b chronic kidney disease- Primary Stage 3 chronic kidney disease, unspecified whether stage 3a or 3b CKD Vitamin D deficiency Unspecified vitamin D deficiency Hypertension, unspecified type documented in this encounter Care Teams Netting Weaver Relationship Specialty Start Date End Date Reinier Arceo PA [address] [place] [address] PCP - General Internal Medicine 01/18/23 documented as of this encounter
--- OUTSIDE RECORDS SUMMARY | 2024-02-04 12:55 | XMS_ITS | Encounter Summary ---
[place] [address] Care Team Providers Care Surgical Technologist Name Role Phone Reinier Arceo Primary Care Provider [phone] Reason for Referral * Diagnostic Test (Routine) - Closed Specialty Diagnoses / Procedures Referred By [facility] Referred To Contact Cardiology Diagnoses History of CHF (congestive heart failure) Procedures Mobile Jeff Cope MD [address] [place] [address] [place] [address] [facility] [place] [address] Referral ID Status Reason Start Date Expiration Date V isits Requested Visits Authorized [id number] Closed Specialty Service Requested 01/28/2024 01/27/2025 1 1 Reason for Visit * Diagnostic Test (Routine) - Closed Specialty Diagnoses / Procedures Referred By [facility]ady park Referred To Contact Cardiology Diagnoses History of CHF (congestive heart failure) Procedures Mobile Jeff Cope MD [address] [place] [address] [facility] [place] [address] [facility] [place] [address] Referral ID Status Reason Start Date Expiration Date V isits Requested Visits Authorized [id number] Closed Specialty Service Requested 01/28/2024 01/27/2025 1 1 Encounter Details Date Type Department Care Team (Latest Contact Info) Description 01/28/2024 12:18 PM EDT - 01/28/2024 11:59 PM EDT Hospital Encounter [place] [address] Jeff Vann MD [address] [place] [address] [place] [address] History of CHF (congestive heart failure) Discharge Disposition: Home Social History Tobacco Use [...] 2:20 PM EDT Procedure visit Urology at [facility] [place] [address] Austin Simon MD [facility] [address] documented as of this encounter Procedures Procedure Name Priority Date/Time Associated Diagnosis Comments ECHO COMPLETE Routine 01/28/2024 12:42 PM EDT History of CHF (congestive heart failure) documented in this encounter Results * ECHO COMPLETE (01/28/2024 12:42 PM EDT) Anatomical Region Laterality Modality Other 01/28/2024 9:31 AM EDT Narrative 01/28/2024 2:19 PM EDT ? Version: 1 Name: MIGUEL SANCHEZ ?Study Date: 01/28/2024, 9: 31 AM ?BP: 120 / 79 mmHg ?Patient Location: 4A : 1955 (MM/DD/YYYY) ? Age: 68 Years Gender: Male Ordering Physician: JEFF VANN Referring Physician: JEFF VANN Reason For Study: CHF Exacerbation Interpreting Fellow: Olvin Johnson. Exam Location: [facility]. ? Conclusions Left ventricular systolic function [...] Left ventricular dilation is now severe. Procedure Complete-[id number]. Suboptimal quality. This study is limited because [...] MD - 01/28/2024 Version: 1 Name: MIGUEL SANCHEZ Study Date: 01/28/2024,9: 31 AM BP: 120 / 79 mmHg Patient Location: : 1955 (MM/DD/YYYY) Age: 68 Years Gender: Male Ordering Physician: JEFF VANN Referring Physician: JEFF VANN Reason For Study: CHF Exacerbation Interpreting Fellow: Olvin Johnson. Exam Location: [facility]. Conclusions Left ventricular systolic function is [...] Left ventricular dilation is now severe. Procedure Complete-[id number]. Suboptimal quality. This study is limited because [...] 19 PM Jeff Vann MD ECHO ORDERABLES documented in this encounter Visit Diagnoses Diagnosis History of CHF (congestive heart failure) Personal history of other diseases of circulatory system documented in this encounter Care Teams Surgical Technologist Relationship Specialty Start Date End Date Reinier Arceo PA [address] [place] [address] PCP - General Internal Medicine 01/18/23 documented as of this encounter
--- OUTSIDE RECORDS SUMMARY | 2024-02-04 12:55 | XMS_ITS | Encounter Summary ---
Author Organization [facility] Address [facility] [place] [address] Care Team Providers Care Credit Administrator Name Role Phone Reinier Arceo Primary Care Provider [phone] Encounter Details Date Type Department Care Team (Latest Contact Info) Description 08/04/2023 2:30 PM EST Office Visit [place] [address] Reina Yang MD [facility] [place] [address] Chronic kidney disease, unspecified CKD stage; Vitamin D deficiency; Anemia, unspecified type; Elevated ferritin; Secondary hyperparathyroidism of renal origin; Metabolic acidosis; Hyponatremia; Blood albumin decreased compared with prior measurement Social History Tobacco Use Types Packs/Day Years Used Date Smoking Tobacco: Never Smokeless Tobacco: Never Alcohol Use Standard Drinks/Week Comments Never 0 (1 standard drink = 0.6 oz pur e alcohol) [facility] Inpatient Questions Answer Date Recorded Does Anyone [...] doesn't [facility]. [facility] documented in this encounter Progress Notes * Reina Yang MD - 08/04/2023 2:30 PM EST [facility] NEPHROLOGY AND HYPERTENSION CLINIC PRIMARY CARE PROVIDER: ELSIE Espinoza SAILING OFFICER: Deonte Lugo MD HISTORY OF PRESENT ILLNESS: [...] 06/23/23 2:43 PM Result Value Ref Range [place] Free Light Chain 7.48 (H) 0.72 - 2.75 mg/dL Lambda Free Light Chain 4.87 (H) 0.57 - 2.15 mg/dL [place] Lambda FLC Ratio 1.5359 0.4000 - 2.5800 [...] - Calcium and phosphorus are at goal. [id number] D is very low. Reportedly on ergocalciferol [...] plan, and coordinating care. Reina Yang MD [facility] Nephrology and Hypertension [facility], [address] [place] [id number] E-mail: [email or web address] documented in this encounter Plan of Treatment Upcoming Encounters Date Type Department Care Team (Late st Contact Info) Description 04/06/2024 2:20 PM EDT [place] [address] Austin Simon MD [facility] [place] [address] documented as of this encounter Results * Phosphorus (08/04/2023 12:55 PM EST) Phosphorus 3.4 2.5 - 4.5 mg/dL [facility] Blood 08/04/2023 12:5 5 PM EST 08/04/2023 1:44 PM EST Narrative Resulting Agency Comment Spec In Lab Abel Brantley MD CHEMISTRY ORDERABLES [facility] [place] [address] * (ABNORMAL) Basic Metabolic Panel (non-fasting) (08/04/2023 12:55 PM EST) Glucose 153 65 - 199 mg/dL [facility] Comment:Diabetes: >=200 mg/d L plus symptoms Blood Urea Nitrogen 17 10 - 20 mg/dL [facility] Creatinine 2.02(H) 0.80 - 1.50 mg/dL [facility] Sodium 134(L) 135 - 145 mmol/L [facility] Potassium 4.8 3.5 - 5.0 mmol/L [facility] Comment: Please note: ??Patients with WBC >100,000 may have falsely elevated Potassium levels. ??For accurate Potassium quantification in these patients send serum separator tube (gold top) for subsequent determinations. ??Contact the Clinical Chemistry Laboratory if there are any questions. Chloride 98 98 - 107 mmol/L [facility] Carbon Dioxide 23 22 - 31 mmol/L [facility] Anion Gap 13 5 - 15 mmol/L [facility] Calcium 9.6 8.5 - 10.5 mg/dL [facility] Est Glomerular Filtration Rate 35(L) >=60 mL/min/1. 73 m?? [facility] Comment: This patient's estimated [...] In Lab Abel Brantley MD CHEMISTRY ORDERABLES [facility] [place] [address] documented in this encounter Visit Diagnoses Diagnosis Chronic kidney disease, unspecified CKD stage Vitamin D deficiency Unspecified vitamin D deficiency Anemia, unspecified type Elevated ferritin Other abnormal blood chemistry Secondary hyperparathyroidism of renal origin Secondary hyperparathyroidism (of renal origin) Metabolic acidosis Acidosis Hyponatremia Hyposmolality and/or hyponatremia Blood albumin decreased compared with prior measurement documented in this encounter Care Teams Credit Administrator Relationship Specialty Start Date End Date Reinier Arceo PA [address] [place] [address] PCP - General Internal Medicine 01/18/23 documented as of this encounter
--- OUTSIDE RECORDS SUMMARY | 2024-02-04 12:55 | XMS_ITS | Encounter Summary ---
Author Organization [facility] [place] [address] Care Team Providers Care Curtain Fitter Name Role Phone Reinier Arceo Primary Care Provider [phone] Encounter Details Date Type Department Care Team (Late st Contact Info) Description 10/04/2023 4:20 PM EDT Office Visit Urology at [facility] [place] [address] Austin Simon MD [facility] [place] [address] Urinary retention Social History Tobacco Use Types Packs/Day Years Used Date Smoking Tobacco: Never Smokeless Tobacco: Never Alcohol Use Standard Drinks/Week Comments Never 0 (1 standard drink = 0.6 oz pur e alcohol) [facility] Inpatient Questions Answer Date Recorded Does [...] Simon MD - 10/04/2023 4:20 PM EDT [facility] SECTION OF UROLOGY UROLOGY CLINIC VISIT [...] note: Found in retention after presenting to [facility] [place] [facility] (12/2022) for SOB and CHF exacerbation. [...] has been undergoing monthly catheter exchanges at [facility] Urology Of note, he has a void trial scheduled tomorrow at [facility]. Denies hematuria. He is currently taking [...] above. Austin Simon MD Section of Urology [facility] Office: [phone] documented in this encounter Plan of Treatment Upcoming Encounters Date Type Department Care Team (Late st Contact Info) Description 04/06/2024 2:20 PM EDT Procedure [place] [address] Austin Simon MD [facility] [place] [address] documented as of this encounter Visit Diagnoses Diagnosis Urinary retention Retention of urine, unspecified documented in this encounter Care Teams Curtain Fitter Relationship Specialty Start Date End Date Reinier Arceo PA [address] [place] [address] PCP - General Internal Medicine 01/18/23 documented as of this encounter
--- OUTSIDE RECORDS SUMMARY | 2024-02-04 12:56 | XMS_ITS | Encounter Summary ---
[place] [address] Care Team Providers Care Concrete Plant Laborer Name Role Phone Reinier Arceo Primary Care Provider [phone] Reason for Referral * Consultation (Routine) - Closed Specialty Diagnoses / Procedures Referred By Contac t Referred To Contact Urology Diagnoses Acute kidney injury Mendel Luna MD [facility] [place] [address] [place] [address] [facility] [place] [address] Referral ID Status Reason Start Date Expiration Date V isits Requested Visits Authorized [id number] Closed Consult, Test & Treat 01/26/2023 01/26/2024 1 1 * Home Health Care (Routine) - Closed Specialty Diagnoses / Procedures Referred By Contac t Referred To Contact Diagnoses Acute kidney injury Mendel Luna MD [facility] [place] [address] [place] [address] [facility] [place] [address] Referral ID Status Reason Start Date Expiration Date V isits Requested Visits Authorized [id number] Closed Consult, Test & Treat 01/26/2023 07/25/2023 999 999 Reason for Visit * Auth/Cert (Routine) Specialty Diagnoses / Procedures Referred By Contac t Referred To Contact Diagnoses Heart failure CHF w/ CLEM Procedures EMERGENCY IPI Tanya Seaman MD [facility] [place] [address] [place] [address] [facility] Referral ID Status Reason Start Date Expiration Date Visits Re quested Visits Authorized [id number] 1 1 Encounter Details Date Type Department Care Team (Latest Contact Info) Description 01/18/2023 5:25 PM EDT - 01/27/2023 4:27 PM EDT Hospital Encounter Heart and Vascular Unit Level 3 [place] [id number] Tanya Seaman MD [facility] [place] [address] [place] [address] Chris Lim MD [facility] [place] [address] [place] [address] Mendel Luna MD [facility] [place] [address] [place] [address] Heart failure, unspecified HF chronicity, unspecified heart [...] [facility] after being redirected from [facility] urgent clinic for one month of [...] getting progressively worse he went to the [facility] urgent clinic in [place], [place] and was subsequently transferred [facility] reportedly 40 mg PO) and transferred to [facility] for management of presumed acute on chronic HFrEF and CLEM. Upon direct admission to [facility]: The patient was noted to be afebrile [...] Patient was started on GDMT with metoprolol ttmniylhb25 mg daily and losartan 25 mg daily. [...] he does have capacity. Spoke with his pillowcase cutter Randa Gonzalez prior to discharge who was [...] Time Provider Department Center 01/28/2023 1:00 PM [facility] ROOM 4 [facility] Rad Your Inpatient Doctor: Mendel Luna MD Your Primary Care Provider: ELSIE Espinoza [phone] For questions regarding this document or issues relating to this hospitalization on the Medical Service, please contact your inpatient physician through the [facility] Supervisor Sleeping Bag Department . Issues afterhours and on weekends will be handled by the Hospitalist staff on-call. General Instructions None Future Appointments and Orders Future Appointments and Orders Future Appointments Provider Department Dept Phone 01/28/2023 1:00 PM [facility] ROOM [address] [facility] Arrive at: Fish Culturist Area [phone] Please bring someone to drive you home. [...] Sanchez for admission to Home Health. [address] [address] Phone Number: [phone] (home) Date of : 1955 Inpatient DOCUMENTATION FOR VNA SERVICES (INCLUDING THOSE PATIENTS WITH MEDICARE COVERAGE REQUIRING HOME VNA SERVICES AND/OR HOSPICE SERVICES) PATIENT'S LOCATION: Miguel Sanchez [address] [address] [phone] (home) Cell: Telephone Information: Coordinator Of Genetic Services's Name: self In discussion with the attending physician, it is certified that this patient is under their care and that they, or a Nurse Practitioner, Clinical Nurse specialist or Physician Bellperson who is working directly with them, had [...] manage benedict catheter HOME HEALTH CARE AGENCY: [facility] [address] [place] [address] Start of care: 24-48 hours after discharge [...] Questions: Disciplines Requested: Nursing Referral to Urology [[id number] Custom] As directed Process Instructions: If no progress note charted, please enter Clinical details in comments. Scheduling Instructions: Questions: My question or request is: 67 yo M admitted 01/18-01/26 w/ renal failure due to obstruction, discharged w/ benedict. Provider Contact Information: ELSIE Espinoza [address] / [facility] [address] Discharge References/Attachments: Discharge References/Attachments None documented in [...] Time Provider Department Center 01/28/2023 1:00 PM [facility] ROOM 4 [facility] Rad Your PCP office will contact you about scheduling follow up. Your Inpatient Doctor: Mendel Luna MD Your Primary Care Provider: ELSIE Espinoza [phone] For questions regarding this document or issues relating to this hospitalization on the Medical Service, please contact your inpatient physician through the [facility] Supervisor Sleeping Bag Department . Issues afterhours and on weekends will be handled by the Hospitalist staff on-call. * Attachments The following attachments cannot be sent through Care Everywhere. * Caregiver: Caring for an Indwelling Urinary Catheter: General Info (Swiss) documented in this encounter Medications at Time [...] discharge to home with a ride from [facility]. * Tati Schultz - 01/27/2023 3:43 PM EDTSummary: Transportation Transportation for discharge was scheduled and confirmed through [facility]. [facility] will have a entry level truck driver at the Main Entrance at 4:15p today to provide patient with transportation home. * Camille Shelley RD - 01/27/2023 12:42 PM EDT Nutrition Progress Note Miguel Sanchez is a 67 y.o. male with PMH significant for HFrEF (last known EF 45% in 2020), diabetes, hypertension, and hyperlipidemia who presents from [facility] ED after being redirected from [facility] urgent clinic for one month of [...] Encounter Note Patient Name: Miguel Sanchez : [id number] MR#: [id number] Admit Date: 01/18/2023 5:25 PM Hospital Day [...] AM EDT Hypertension-Nephrology Inpatient Follow-up Miguel Sanchez [id number] 1955 ID: 67 y.o. old male seen [...] SPEP shows possible paraprotein however DOROTEO negative. Seven Devils & Lambda light chains elevated however ratio [...] TID This case was discussed with staff obiee consultant Dr. Crawford and the primary team. Please contact me at phone: [phone] or pager: [phone] with any questions. Deonte Lugo MD Nephrology [...] Marii Serrano - 01/26/2023 3:59 PM EDT Glass Furnace Operator Encounter Note Patient Name: Miguel Sanchez : [id number] MR#: [id number] Admit Date: 01/18/2023 5:25 PM Hospital Day [...] 1955 PCP: ELSIE Espinoza PCP phone number: [phone] Date of Admission: 01/18/2023 ( Hospital Day 8 days ) Attending:Mendel Luna MD ID: Miguel Sanchez is a 67 y.o. male with PMH significant for HFrEF (last known EF 45% in 2019), diabetes, hypertension, and hyperlipidemia who presents from [facility] ED after being redirected from [facility] urgent clinic for one month of [...] Gas) No results found for: PHART, PO2ART, MDQ7AUC, KJU8CUM Microbiology: Microbiology Results (Last 30 days) Procedure Component Value Units Date/Time Urine culture [[id number]] Collected: 01/18/232212 Lab Status: Final result Specimen: [...] who have questions, please contact the health senior resident care director that requested your imaging first. Jimmie العراقي, [...] who have questions, please contact the health senior resident care director that requested your imaging first. Elsie Garza, E Pediatric Oncologist Electronically Signed Final Report 01/25/2023 04:10 pm [...] [facility] after being redirected from [facility] urgent clinic for one month of [...] PPx: Diet: Daily Healthy Menu Choices/Cardiac diet ([facility]-Diet) Lines: Peripheral IV Line - Single Lumen [...] Yousif MSW - 01/26/2023 2:43 PM EDT DEPARTMENT CLERK received a consult to support patient regarding concern of not getting his rent paid on time, which is typically due on the 1st of every month. DEPARTMENT CLERK called patient's property management company, [employer], and spoke to one of the radiology receptionist's, Meri, who stated they have a crow period forpaying rent late and are flexible with this kind of stuff. Meri also mentioned patient had spoken with one of her colleagues recently and asked if they could drive down to the hospital to grabthe check. DEPARTMENT CLERK checked with patient to see if he has the check, to which he responded no. Patient to be discharged tomorrow. * Deonte Lugo MD - 01/26/2023 7:51 AM EDT Hypertension-Nephrology Inpatient Follow-up Miguel Sanchez [id number] 1955 ID: 67 y.o. old male seen [...] SPEP shows possible paraprotein however DOROTEO negative. Seven Devils & Lambda light chains elevated however ratio [...] daily This case was discussed with staff obiee consultant Dr. Crawford and the primary team. Please contact me at phone: [phone] or pager: [phone] with any questions. Deonte Lugo MD Nephrology [...] AM EDT Hypertension-Nephrology Inpatient Follow-up Miguel Sanchez [id number] 1955 ID: 67 y.o. old male seen [...] SPEP shows possible paraprotein however DOROTEO negative. Seven Devils & Lambda light chains elevated however ratio [...] daily This case was discussed with staff obiee consultant Dr. Crawford. Please contact me at phone: [phone] or pager: [phone] with any questions. Deonte Lugo MD Nephrology [...] and volume overload resolving. David calhoun need local company intermodal truck driver diuretics to maintain fluid balance. Please obtain repeat renal US and schedule for renal clinic follow up with Dr Lugo in 2 weeks. * Kendy Montes MD - 01/25/2023 6:05 AM EDT Images from the original note were not included. Cardiology Progress Note Patient info: Name: Miguel Sanchez : 1955 PCP: ELSIE Espinoza PCP phone number: [phone] Date of Admission: 01/18/2023 ( Hospital Day 7 days ) Attending:Mendel Luna MD ID: Miguel Sanchez is a 67 y.o. male with PMH significant for HFrEF (last known EF 45% in 2020), diabetes, hypertension, and hyperlipidemia who presents from [facility] ED after being redirected from [facility] urgent clinic for one month of [...] Gas) No results found for: PHART, PO2ART, YRJ4IXD, EST9GBM Microbiology: Microbiology Results (Last 30 days) Procedure Component Value Units Date/Time Urine culture [[id number]] Collected: 01/18/232212 Lab Status: Final result Specimen: [...] who have questions, please contact the health senior resident care director that requested your imaging first. Jimmie العراقي, [...] [facility] after being redirected from [facility] urgent clinic for one month of [...] AM EDT Hypertension-Nephrology Inpatient Follow-up Miguel Sanchez [id number] 1955 ID: 67 y.o. old male seen for CLEM. Interval History: Diuretics held again yesterday however continues to auto diurese. He clarified his living situationfor us and explains that he lives independently in low income housing and depends on rides to get to clinic appointments etc which is not always available. He follows very closely with a mental health clinic and has a licensed master social worker there who helps him. Physical [...] negative. SPEP shows possible paraprotein DOROTEO pending. Seven Devils & Lambda light chains elevated however ratio [...] and from clinic visits and has a licensed master social worker whogenerally helps him with this. [...] deficiency. This case was discussed with staff obiee consultant Dr. Morrow. Please contact me at phone: [phone] or pager: [phone] with any questions. Deonte Lugo MD Nephrology [...] He does report having a mental health manager filter who may be of some assistance when discharge planning comes to play. * Kendy Montes MD - 01/24/2023 6:39 AM EDT Images from the original note were not included. Cardiology Progress Note Patient info: Name: Miguel Sanchez : 1955 PCP: ELSIE Espinoza PCP phone number: [phone] Date of Admission: 01/18/2023 ( Hospital Day 6 days ) Attending:Mendel Luna MD ID: Miguel Sanchez is a 67 y.o. male with PMH significant for HFrEF (last known EF 45% in 2020), diabetes, hypertension, and hyperlipidemia who presents from [facility] ED after being redirected from [facility] urgent clinic for one month of [...] Gas) No results found for: PHART, PO2ART, DYC4YMF, ALR1BQP Microbiology: Microbiology Results (Last 30 days) Procedure Component Value Units Date/Time Urine culture [[id number]] Collected: 01/18/232212 Lab Status: Final result Specimen: [...] who have questions, please contact the health senior resident care director that requested your imaging first. Jimmie العراقي, [...] [facility] after being redirected from [facility] urgent clinic for one month of progressively worsening shortness of breath and associated chest painoccurring both at rest and on exertion with concern for acute on chronic HFrEF exacerbation, profound CELM. Creatinine improving today with RHC yesterday demonstrating [...] AM EDT Hypertension-Nephrology Inpatient Follow-up Miguel Sanchez [id number] 1955 ID: 67 y.o. old male seen [...] negative. SPEP shows possible paraprotein DOROTEO pending. Seven Devils & Lambda light chains elevated however ratio [...] and voiding trial - Please start ergocalciferol 26107 U weekly This case was discussed with staff obiee consultant Dr. Morrow. Please contact me at phone: [phone] or pager: [phone] with any questions. Deonte Lugo MD Nephrology [...] 1955 PCP: ELSIE Espinoza PCP phone number: [phone] Date of Admission: 01/18/2023 ( Hospital Day 5 days ) Attending:Mendel Luna MD ID: Miguel Sanchez is a 67 y.o. male with PMH significant for HFrEF (last known EF 45% in 2019), diabetes, hypertension, and hyperlipidemia who presents from [facility] ED after being redirected from [facility] urgent clinic for one month of [...] Gas) No results found for: PHART, PO2ART, ZJD0HUI, TRW1UJG Microbiology: Microbiology Results (Last 30 days) Procedure Component Value Units Date/Time Urine culture [[id number]] Collected: 01/18/232212 Lab Status: Final result Specimen: [...] who have questions, please contact the health senior resident care director that requested your imaging first. Jimmie العراقي, [...] [facility] after being redirected from [facility] urgent clinic for one month of [...] [facility] after being redirected from [facility] urgent clinic for one month of [...] [facility] after being redirected from [facility] urgent clinic for one month of [...] transportation for shopping and errands and his pillowcase cutter visits once a week. Pt does not [...] commands ADL: Assist needed to [facility] gown d/t lines Toileting: provided pt [...] Therapy: 30 (SCHM x 2; 9:56-10:26) Pager: [phone] Sushma Hernandez OT Occupational Therapy Rehabilitation Department * Deonte Lugo MD - 01/22/2023 7:46 AM EDT Hypertension-Nephrology Inpatient Follow-up Miguel Sanchez [id number] 1955 ID: 67 y.o. old male seen [...] negative. SPEP shows possible paraprotein DOROTEO pending. Seven Devils & Lambda light chains elevated however ratio [...] primaryteam. This case was discussed with staff obiee consultant Dr. Morrow. Please contact me at phone: [phone] or pager: [phone] with any questions. Deonte Lugo MD Nephrology [...] 1955 PCP: ELSIE Espinoza PCP phone number: [phone] Date of Admission: 01/18/2023 ( Hospital Day 4 days ) Attending:Mendel Luna MD ID: Miguel Sanchez is a 67 y.o. male with PMH significant for HFrEF (last known EF 45% in 2020), diabetes, hypertension, and hyperlipidemia who presents from [facility] ED after being redirected from [facility] urgent clinic for one month of progressively worsening shortness of breath and associated chest pain occurring both at rest and on exertion with concern for HFrEF exacerbation and CLEM. Active Problems: Active Hospital Problems Diagnosis Heart failure Resolved Hospital Problems No resolved problems to display. 24 Hour and Subjective: Yesterday: -Holding diuresis. Was going to [facility] but got bumped so plan [...] Gas) No results found for: PHART, PO2ART, VTM1QFW, KQQ0SEP Microbiology: Microbiology Results (Last 30 days) Procedure Component Value Units Date/Time Urine culture [[id number]] Collected: 01/18/232212 Lab Status: Final result Specimen: [...] who have questions, please contact the health senior resident care director that requested your imaging first. Jimmie العراقي, [...] [facility] after being redirected from [facility] urgent clinic for one month of [...] [facility] after being redirected from [facility] urgent clinic for one month of [...] alone in a single level apartment in [place], [place] Bathroom Set-up: Tub-shower with a shower [...] Code: Gait x1 Sera Mancera, PT Pager: [phone] Physical Therapy Inpatient Rehabilitation Department * Deonte Lugo MD - 01/21/2023 7:44 AM EDT Hypertension-Nephrology Inpatient Follow-up Miguel Sanchez [id number] 1955 ID: 67 y.o. old male seen [...] being This case was discussed with staff obiee consultant Dr. Morrow. Please contact me at phone: [phone] or pager: [phone] with any questions. Deonte Lugo MD Nephrology [...] 1955 PCP: ELSIE Espinoza PCP phone number: [phone] Date of Admission: 01/18/2023 ( Hospital Day 3 days ) Attending:Chris Lim MD ID: Miguel Sanchez is a 67 y.o. male with PMH significant for HFrEF (last known EF 45% in 2019), diabetes, hypertension, and hyperlipidemia who presents from [facility] ED after being redirected from [facility] urgent clinic for one month of [...] Gas) No results found for: PHART, PO2ART, GHO1RNY, OTO7TUA Microbiology: Microbiology Results (Last 30 days) Procedure Component Value Units Date/Time Urine culture [[id number]] Collected: 01/18/232212 Lab Status: Final result Specimen: [...] who have questions, please contact the health senior resident care director that requested your imaging first. Jimmie العراقي, [...] [facility] after being redirected from [facility] urgent clinic for one month of [...] Montes MD Internal Medicine, PGY-1 Cardiology M1-S1, #0989 Cardiology M1-S2, #[id number] 01/21/2023, 6:02 AM Cardiology Staff Addendum Miguel [...] AM EDT Hypertension-Nephrology Inpatient Follow-up Miguel Sanchez [id number] 1955 ID: 67 y.o. old male seen [...] serologies This case was discussed with staff obiee consultant Dr. Morrow and the patient's primary team. Please contact me at phone: [phone] or pager: [phone] with any questions. Deonte Lugo MD Nephrology [...] Reina Alcala APRN (Inactive) PCP phone number: [phone] Date of Admission: 01/18/2023 ( Hospital Day 2 days ) Attending:Chris Lim MD ID: Miguel Sanchez is a 67 y.o. male with PMH significant for HFrEF (last known EF 45% in 2020), diabetes, hypertension, and hyperlipidemia who presents from [facility] ED after being redirected from [facility] urgent clinic for one month of [...] Gas) No results found for: PHART, PO2ART, KSY0YCH, RMB9SID Microbiology: Microbiology Results (Last 30 days) Procedure Component Value Units Date/Time Urine culture [[id number]] Collected: 01/18/232212 Lab Status: Final result Specimen: [...] who have questions, please contact the health senior resident care director that requested your imaging first. Jimmie العراقي, [...] [facility] after being redirected from [facility] urgent clinic for one month of [...] PM EDTSummary: Advance Directive Patient completed a [place] Advance Directive. Patient identified his sister Mony as his health care agent. * Sera Mancera, PT - 01/19/2023 11:00 AM EDT Physical Therapy evaluation Patient profile: Miguel Sanchez is a 67 y.o. male with PMH significant for HFrEF (last known EF 45% in 2019), diabetes, hypertension, and hyperlipidemia who presents from [facility] ED after being redirected from [facility] urgent clinic for one month of progressively worsening shortness of breath and associated chest pain occurring both at rest and on exertion. Social History: Home set-up: Lives alone in a single level apartment in [place], [place] Bathroom Set-up: Tub-shower with a shower [...] Moderate Complexity Evaluation Sera Mancera, PT Pager: [phone] Physical Therapy Inpatient Rehabilitation Department * Sushma Hernandez, OT - 01/19/2023 10:30 AM EDT Occupational Therapy Evaluation Patient profile: Miguel Sanchez is a 67 y.o. male with PMH significant for HFrEF (last known EF 45% in 2020), diabetes, hypertension, and hyperlipidemia who presents from [facility] ED after being redirected from [facility] urgent clinic for one month of [...] transportation for shopping and errands and his pillowcase cutter visits once a week. Pt does not [...] and measurable assessment of functional outcome. Pager: [phone] Sushma Hernandez OTR/L Occupational Therapy Rehabilitation Department * Marii Serrano - 01/19/2023 10:23 AM EDT Glass Furnace Operator Encounter Note Patient Name: Miguel Sanchez : [id number] MR#: [id number] Admit Date: 01/18/2023 5:25 PM Hospital Day [...] Kevin Ashwin and doesn't believe in goingto Gnosticist because he can christianity God in any place he is. Patient [...] sent to Office of Care Management ~ Deep Fryer Assembler. * Chris Lim MD - 01/19/2023 6:11 AM EDT Images from the original note were not included. Cardiology Progress Note Patient info: Name: Miguel Sanchez : 1955 PCP: Reina Alcala APRN (Inactive) PCP phone number: [phone] Date of Admission: 01/18/2023 ( Hospital Day 1 day ) Attending:Chris Lim MD ID: Miguel Sanchez is a 67 y.o. male with PMH significant for HFrEF (last known EF 45% in 2019), diabetes, hypertension, and hyperlipidemia who presents from [facility] ED after being redirected from [facility] urgent clinic for one month of progressively worsening shortness of breath and associated chest pain occurring both at rest and on exertion. Active Problems: Active Hospital Problems Diagnosis Heart failure Resolved Hospital Problems No resolved problems to display. 24 Hour and Subjective: Yesterday: - The patient was reassuringly afebrile and hemodynamically stable upon transfer to [facility]. Interestingly, initial exam did not demonstrate marked [...] Gas) No results found for: PHART, PO2ART, RSP2CVC, KWZ6ABG Microbiology: Microbiology Results (Last 30 days) No [...] who have questions, please contact the health senior resident care director that requested your imaging first. Jimmie العراقي, [...] [facility] after being redirected from [facility] urgent clinic for one month of [...] info: Name: Miguel Sanchez : 1955 PCP: Renia Alcala APRN (Inactive) PCP phone number: [phone] Date of Admission: 01/18/2023 ( Hospital Day 0 days ) Attending:Tanya Seaman MD ID: Miugel Sanchez is a 67 y.o. male with PMH significant for HFrEF (last known EF 45% in 2020), diabetes, hypertension, and hyperlipidemia who presents from [facility] ED after being redirected from [facility] urgent clinic for one month of [...] getting progressively worse he went to the [facility] urgent clinic in [place], [place] and was subsequently transferred to [facility] [...] reportedly 40 mg PO) and transferred to [facility] for management of presumed acute on chronic HFrEF and CLEM. Upon direct admission to [facility]: The patient was noted to be afebrile [...] history: Reports living in an apartment in [place], [place] Reports his father as a result [...] [facility] being redirected from [facility] urgent clinic for one month of progressively worsening shortness of breath and associated chest painoccurring both at rest and on exertion. The patient was reassuringly afebrile and hemodynamically stable upon transfer to [facility]. Interestingly, initial exam did not demonstrate marked [...] More than 30 minutes were spent in [id number] contact with patient and with arranging discharge [...] have to pay my rent, get two laundry folder's checks - one for rent and one [...] a catheter. Has daily auditory hallucinations of [employer] that he has lived with for decades. No SI/HI. Diagnoses: schizophrenia dx 1996 Current treatment: zyprexa 15mg QHS Past hospitalizations: never Suicide attempts: not really - years ago he came close, but doesn't elaborate Past psychiatric medications: did not assess Substance Use History/Treatment: no alcohol, cigarettes, marijuana, or other substances Social History: Lives in an apartment by himself in [place]. No family in the area. Only support is his mental health agency. [facility] - Randa Daniels (pillowcase cutter). Asa Deal is his provider. Problem List: [...] rate, and normal rhythm Language: fluent in italian Mood: fine Affect: blunted and mood-congruent Thought [...] check on him, or see if his pillowcase cutter willcheck in on him tomorrow Please page psychiatry with additional questions Patient on IEA Status? IEA: NO, patient is not on IEA and does not have any psychiatric contraindication to discharge at the time of this assessment. Recommendations were communicated to primary steam locomotive firer/fireman Kendy Montes MD. Maritza Awan MD Psychiatry, [...] [] Minimal - [] Minimal [] Straightforward 88503 [] Low [] Low [] Low [] Low 52030 [] Moderate [x] Moderate [] Moderate [] Moderate 32921 [x] High [] High [x] High [x] High 61441 Final Coding Determination: High Associated attestation - [...] CM). Keon Park MD Psychiatry Consultation Pager: [phone] * Plan of Care - Adrienne Calderon [...] Intervention: Promote Injury-Free Environment Flowsheets (Taken 01/25/2023 9220) Safety Promotion/Fall Prevention: safety round/check completed * [facility] being [facility] urgent [facility] for one month of [...] to: discuss discharge planning needs. provide the [facility], Office of Care Management letter from the [place] [facility] pertaining to rehab referrals. provide a letter describing our affiliations within the [facility] and educate about their right to choose where referrals are sent. provide a list of Home Health Agencies / Durable Medical Equipment vendors which serve their preferred geographic area. provided patient with [facility] Star Quality Rating handout. They have requested referrals to: [facility]. [address] [place] [id number] Note routed to a Deep Fryer Assembler who will communicate referrals to facilities and [...] from the original note were not included. [facility] [place] [address] [place] [address] CORONARY ANGIOGRAM AND PERCUTANEOUS CORONARY INTERVENTION REPORT Patient: Miguel Sanchez : 1955 MR number: [id number] Date of Service: 01/22/2023 Audiovisual Equipment Operator: Layton Morris MD Fellow: Mario Alberto Glasgow MD INDICATION: Miguel Sanchez is a 67 y.o. male with PMH significant for HFrEF (last known EF 45% in 2019), diabetes, hypertension, and hyperlipidemia who presents from [facility] ED after being redirected from [facility] urgent clinic for one month of [...] to the bank and gets a cashier supervisor's check and pays it. CM tried to call the bank and the customer needs to be present for them to release any funds. I tried to call the [employer] [facility]- but they were closed. CM also tried to call his pillowcase cutter Randa to see if she could help. Left message for her to call back. Will put in DEPARTMENT CLERK consult to meet with him on Wednesday [...] PT/OT Recommendations Outpatient Agency/Support Group Needs: Other [facility]: Randa Gonzaelz at [phone] (pillowcase cutter) Transportation: Medicaid transport- will need 24 hours [...] Coon MD Urology PGY-2 Daytime Consult Pager #[phone] * Initial Assessments - Darryl Rodriguez RN [...] surrogate would be surrogate decision maker per [place] surrogate decision making law. (Only good for 180 days) Any patient receiving care in [place] must abide by [place] law. The hierarchy for surrogate decision making [...] (i) The agent with financial power of prosecuting attorney or a conservator appointed in accordance [...] none Home Address confirmed as: [address] [facility] [address] [facility] [address] Social & Family Supports: All names listed below confirmed with patient as current and correct Extended Emergency Contact Information Primary Emergency Contact: Mony Abraham Mobile Relation: Sibling Current Care Provided by: self Provides Primary Care For: no one, unable/limited ability to care for self Caregiver if needed: none Quality of Family relationships: non-existent Community Resources being provided currently: outpatient psychiatric care ([facility]) Behavioral Health History: Schizophrenia unspecified; MMD recurrent unspecified; on Olanzapine 15mgQD per Miroslava Anguiano CM at [facility] Substance Use/Abuse confirmed: denies all [...] Yes ; Prescription Coverage: Yes Preferred Pharmacy: [id number] AT [facility] & [address] [address] [place] Status: Patient is a : No Primary [...] 7:38 AM EDT Hypertension-Nephrology Consultation Miguel Sanchez [id number] 1955 ID: Miguel Sanchez is 67 y.o. [...] labs. This case was discussed with staff obiee consultant Dr. Morrow and the patient's primary team. Please contact me at phone: [phone] or pager: [phone] with any questions. Deonte Lugo MD Nephrology [...] 2:20 PM EDT Procedure [place] [address] Austin Simon MD [facility] [place] [address] [place] [address] Scheduled Referrals Name Type Priority Associated Diagnoses [...] DIFFERENTIAL, AUTOMATED Routine 01/28/20 3:49 AM EDT CBC (WITH DIFF) Routine 01/27/2023 3:49 AM EDT PHOSPHORUS Routine 01/27/2023 3:49 AM EDT MAGNESIUM Routine 01/27/2023 3:49 AM EDT BASIC METABOLIC PANEL Routine 01/27/2023 3:49 AM EDT POCT GLUCOSE Routine 01/26/2023 8:20 PM EDT POCT GLUCOSE Routine 01/26/2023 4:04 PM EDT POCT GLUCOSE Routine 01/26/2023 11:42 AM EDT POCT GLUCOSE Routine 01/26/2023 7:51 AM EDT HEMOGRAM Routine 01/26/2023 3:11 AM EDT DIFFERENTIAL, AUTOMATED Routine 01/27/20 3:11 AM EDT CBC (WITH DIFF) Routine 01/26/2023 3:11 AM EDT PHOSPHORUS Routine 01/26/2023 3:11 AM EDT MAGNESIUM Routine 01/26/2023 3:11 AM EDT BASIC METABOLIC PANEL Routine 01/26/2023 3:11 AM EDT POCT GLUCOSE Routine 01/25/2023 9:24 PM EDT POCT GLUCOSE Routine 01/25/2023 4:46 PM EDT US RETROPERITONEAL COMPLETE Routine 01/25/2023 3:50 PM EDT POCT GLUCOSE Routine 01/25/2023 11:20 AM EDT POCT GLUCOSE Routine 01/25/2023 7:44 AM EDT HEMOGRAM Routine 01/25/2023 4:06 AM EDT DIFFERENTIAL, AUTOMATED Routine 01/26/20 4:06 AM EDT CBC (WITH DIFF) Routine 01/25/2023 4:06 AM EDT PHOSPHORUS Routine 01/25/2023 4:06 AM EDT MAGNESIUM Routine 01/25/2023 4:06 AM EDT BASIC METABOLIC PANEL Routine 01/25/2023 4:06 AM EDT POCT GLUCOSE Routine 01/24/2023 10:12 PM EDT POCT GLUCOSE Routine 01/24/2023 4:41 PM EDT POCT GLUCOSE Routine 01/24/2023 12:10 PM EDT POCT GLUCOSE Routine 01/24/2023 7:51 AM EDT PHOSPHORUS Routine 01/24/2023 2:56 AM EDT MAGNESIUM Routine 01/24/2023 2:56 AM EDT BASIC METABOLIC PANEL Routine 01/24/2023 2:56 AM EDT POCT GLUCOSE Routine 01/23/2023 9:16 PM EDT POCT GLUCOSE Routine 01/23/2023 3:13 PM EDT POCT GLUCOSE Routine 01/23/2023 11:06 AM EDT POCT GLUCOSE Routine 01/23/2023 7:46 AM EDT HEMOGRAM Routine 01/23/2023 2:53 AM EDT DIFFERENTIAL, AUTOMATED Routine 01/24/20 2:53 AM EDT CBC (WITH DIFF) Routine 01/23/2023 2:53 AM EDT PHOSPHORUS Routine 01/23/2023 2:53 AM EDT MAGNESIUM Routine 01/23/2023 2:53 AM EDT BASIC METABOLIC PANEL Routine 01/23/2023 2:53 AM EDT POCT GLUCOSE Routine 01/22/2023 7:28 PM EDT POCT GLUCOSE Routine 01/22/2023 5:30 PM EDT CARDIAC CATHETERIZATION Routine 01/23/20 5:10 PM EDT POCT GLUCOSE Routine 01/22/2023 12:35 PM EDT POCT GLUCOSE Routine 01/22/2023 7:52 AM EDT HEMOGRAM Routine 01/22/2023 2:42 AM EDT DIFFERENTIAL, AUTOMATED Routine 01/23/20 2:42 AM EDT CBC (WITH DIFF) Routine 01/22/2023 2:42 AM EDT C3 COMPLEMENT Routine 01/22/2023 2:42 AM EDT PHOSPHORUS Routine 01/22/2023 2:42 AM EDT MAGNESIUM Routine 01/22/2023 2:42 AM EDT BASIC METABOLIC PANEL Routine 01/22/2023 2:42 AM EDT POCT GLUCOSE [...] DIFFERENTIAL, AUTOMATED Routine 01/22/20 2:42 AM EDT CBC (WITH DIFF) Routine 01/21/2023 2:42 AM EDT PHOSPHORUS Routine 01/21/2023 2:42 AM EDT MAGNESIUM Routine 01/21/2023 2:42 AM EDT BASIC METABOLIC PANEL Routine 01/21/2023 2:42 AM EDT POCT GLUCOSE Routine 01/20/2023 7:45 PM EDT POCT GLUCOSE Routine 01/20/2023 4:38 PM EDT POCT GLUCOSE Routine 01/20/2023 4:14 PM EDT HC HEPATITIS C ANTIBODY Routine 01/21/20 3:23 PM EDT HEPATITIS C ANTIBODY Routine 01/20/2023 3:23 PM EDT HEPATITIS B CORE ANTIBODY, TOTAL Routine 01/20/2023 3:23 PM EDT HIV SCREEN, 4TH GENERATION ([facility]/CGP/APD/NL[facility]) Routine 01/20/2023 3:23 PM EDT HEPATITIS B SURFACE ANTIBODY Routine 01/20/2023 3:23 PM EDT POCT GLUCOSE Routine 01/20/2023 11:33 AM EDT POCT GLUCOSE Routine 01/20/2023 7:24 AM EDT IMMUNOGLOBULIN FREE LIGHT CHAINS, SERUM Routine 01/20/2023 3:26 AM EDT PTH Routine 01/20/2023 3:26 AM EDT IMMUNOGLOBULINS, QUANTITATIVE Routine 01/20/2023 3:26 AM EDT IMMUNOFIXATION ELECTROPHORESIS, SERUM Routine 01/20/2023 3:26 AM EDT HEMOGRAM Routine 01/20/2023 3:26 AM EDT DIFFERENTIAL, AUTOMATED Routine 01/21/20 3:26 AM EDT IRON AND TIBC Routine 01/20/2023 3:26 AM EDT VITAMIN D, 25-HYDROXY Routine 01/20/2023 3:26 AM EDT CBC (WITH DIFF) Routine 01/20/2023 3:26 AM EDT C4 COMPLEMENT Routine 01/20/2023 3:26 AM EDT PROTEIN ELECTROPHORESIS, SERUM Routine 01/20/2023 3:26 AM EDT PHOSPHORUS Routine 01/20/2023 3:26 AM EDT MAGNESIUM Routine 01/20/2023 3:26 AM EDT FERRITIN Routine 01/20/2023 3:26 AM EDT BASIC METABOLIC PANEL Routine 01/20/2023 3:26 AM EDT POCT GLUCOSE Routine 01/19/2023 9:33 PM EDT POCT GLUCOSE Routine 01/19/2023 4:37 PM EDT BASIC METABOLIC PANEL Timed 01/19/2023 2:15 PM EDT POCT GLUCOSE Routine 01/19/2023 11:31 AM EDT BASIC METABOLIC PANEL Timed 01/19/2023 10:29 AM EDT ECHO COMPLETE W CONTRAST Routine 01/19/2023 8:59 AM EDT Heart failure, unspecified HF chronicity, unspecified heart failure type US RETROPERITONEAL COMPLETE Routine 01/19/2023 8:30 AM EDT POCT GLUCOSE Routine 01/19/2023 8:00 AM EDT POCT GLUCOSE Routine 01/19/2023 7:42 AM EDT BASIC METABOLIC PANEL Timed 01/19/2023 6:21 AM EDT HEMOGRAM Routine 01/19/2023 1:50 AM EDT DIFFERENTIAL, AUTOMATED Routine 01/20/20 1:50 AM EDT CBC (WITH DIFF) Routine 01/19/2023 1:50 AM EDT PHOSPHORUS Routine 01/19/2023 1:50 AM EDT MAGNESIUM Routine 01/19/2023 1:50 AM EDT CK Routine 01/19/2023 1:50 AM EDT BASIC METABOLIC PANEL Routine 01/19/2023 1:50 AM EDT POCT GLUCOSE Routine 01/19/2023 1:46 AM EDT BLOOD GAS VENOUS (NL[facility]) Timed 10:20 PM EDT TROPONIN - SERIES STAT 01/18/2023 10: 16 PM EDT TSH CASCADE Routine 01/18/2023 10:16 PM EDT HEMOGRAM Routine 01/18/2023 10:16 PM EDT DIFFERENTIAL, AUTOMATED Routine 01/19/20 10:16 PM EDT HC PARTIAL THROMBOPLASTIN TIME Routine 01/18/2023 10:16 PM EDT PROTHROMBIN TIME Routine 01/18/2023 10:1 6 PM EDT CBC (WITH DIFF) Routine 01/18/2023 10:16 PM EDT PHOSPHORUS Routine 01/18/2023 10:16 PM EDT MAGNESIUM Routine 01/18/2023 10:16 PM EDT LDL CHOLESTEROL, DIRECT Routine 01/19/20 10:16 PM EDT HDL/CHOL PROFILE Routine 01/18/2023 10:1 6 PM EDT HEMOGLOBIN A1C Routine 01/18/2023 10:16 PM EDT ACETAMINOPHEN LEVEL Routine 01/18/2023 1 0:16 PM EDT SALICYLATE Routine 01/18/2023 10:16 PM EDT BASIC METABOLIC PANEL Routine 01/18/2023 10:16 PM EDT URINALYSIS MICROSCOPIC EXAM Routine 01/18/2023 10:13 PM EDT RAPID DRUG SCREEN, URINE Routine 01/18/2023 10:13 PM EDT RAPID DRUG SCREEN W/ CONFIRMATION, URINE Routine 01/18/2023 10:13 PM EDT UREA NITROGEN, URINE, RANDOM Routine 01/18/2023 10:13 PM EDT PROTEIN/CREATININE RATIO, URINE Routine 01/18/2023 10:13 PM EDT CREATININE, URINE, RANDOM Routine 01/18/2023 10:13 PM EDT URINALYSIS WITH REFLEX CULTURE Routine 01/18/2023 10:13 PM EDT URINE CULTURE Routine 01/18/2023 10:13 PM EDT HC VENIPUNCTURE STAT 01/18/2023 7:46 PM EDT TROPONIN - SERIES STAT 01/18/2023 7:1 6 PM EDT HEMOGRAM STAT 01/18/2023 7:16 PM EDT DIFFERENTIAL, AUTOMATED STAT 01/19/20 7:16 PM EDT CBC (WITH DIFF) STAT 01/18/2023 7:16 PM EDT PRO-BRAIN NATRIURETIC PEPTIDE STAT 01/18/2023 7:16 PM EDT COMPREHENSIVE METABOLIC PANEL STAT 01/18/2023 7:16 PM EDT EKG 12-LEAD STAT 01/18/2023 6:52 PM EDT Heart failure, unspecified HF chronicity, unspecified heart failure type documented in this encounter Results * POCT Glucose (01/27/2023 12:18 PM EDT) [facility] Signature Glucose, POC 159 65 - 199 mg/dL [facility] Comment: Supplemental ranges: <140 mg/dL before meals <180 mg/dL all other times of the day Blood 01/27/2023 12:1 8 PM EDT 01/27/2023 12:18 PM EDT Mendel Luna MD POINT OF CARE TEST O RDERABLES Performing Organization Address City/[facility] Co de Phone Number [facility] [place] [address] * POCT Glucose (01/27/2023 7:58 AM EDT) Glucose, POC 173 65 - 199 mg/dL [facility] Comment: Supplemental ranges: <140 mg/dL before meals <180 mg/dL all other times of the day Blood 01/27/2023 7:58 AM EDT 01/27/2023 7:58 AM EDT Mendel Luna MD POINT OF CARE TEST O RDERABLES Performing Organization Address [facility] Co de Phone Number [facility] [place] [address] * (ABNORMAL) Differential, Automated (01/27/2023 3:49 AM EDT) Neutrophil % 75.3 % [facility] Neutrophil Absolute 6.21(H) 1.70 - 6.10 x10(3)/mc L [facility] Lymph % 12.1 % [facility] Lymphocytes Abs 1.0 0.9 - 3.2 x10(3)/mc L [facility] Monocyte % 8.6 % [facility] Monocyte Abs 0.7 0.3 - 0.9 x10(3)/mc L [facility] Eos % 2.9 % [facility] Eosinophils Abs 0.2 0.0 - 0.4 x10(3)/mc L [facility] Basophil % 0.7 % [facility] Baso Absolute 0.1 0.0 - 0.1 x10(3)/mc L [facility] Immature Gran % 0.40 % [facility] Comment: Immature granulocytes(IG's)percentage and absolute count will include metamyelocytes, myelocytes, and promyelocytes. Blood smears from CBCs yielding IG's will be scanned manually for concordance. If this scan disagrees with the automated IG or if promyelocytes are noted, a manual differential will be performed. Immature Gran Absolute 0.03 0.00 - 0.04 x10(3)/mc L [facility] Blood 01/27/2023 3:49 AM EDT 01/27/2023 4:08 AM EDT Narrative Resulting Agency Comment Spec In Lab Kyle Mckeon MD HEMATOLOGY ORDERABLE S [facility] [place] [address] * (ABNORMAL) Hemogram (01/27/2023 3:49 AM EDT) White Blood Cell 8.2 4.0 - 9.5 x10(3)/mc L [facility] Red Blood Cell 3.45(L) 4.58 - 5.54 x10(6)/ L [facility] Hemoglobin 10.6(L) 13.7 - 16.5 g/dL [facility] Hematocrit 31.5(L) 40.5 - 48.5 % [facility] Mean Cell Volume 91.3 82.9 - 93.1 fL [facility] Mean Cell Hemoglobin 30.7 27.5 - 32.1 pg [facility] Mean Cell Hemoglobin Concentration 33.7 32.0 - 35.7 g/dL [facility] Platelet 163 145 - 357 x10(3)/mc L [facility] RDW Standard Deviation 42.7 36.0 - 45.0 fL [facility] RDW coefficient of variation 13.0 11.4 - 13.8 % [facility] Mean Platelet Volume 12.8 7.6 - 12.9 fL [facility] NRBC% auto 0.0 % [facility] NRBC Absolute 0.000 0.000 - 0.000 x10(3)/ L [facility] Blood 01/27/2023 3:49 AM EDT 01/27/2023 4:08 AM EDT Narrative Resulting Agency Comment Spec In Lab Kyle Mckeon MD HEMATOLOGY ORDERABLE S Performing Organization Address [facility] Co de Phone Number [facility] [address] * (ABNORMAL) Phosphorus (01/27/2023 3:49 AM EDT) Phosphorus 5.0(H) 2.5 - 4.5 mg/dL [facility] Blood 01/27/2023 3:49 AM EDT 01/27/2023 4:08 AM EDT Narrative Resulting Agency Comment Spec In Lab Tanya Seaman MD CHEMISTRY ORDERABL ES Performing Organization Address [facility] Co de Phone Number [facility] [address] * Magnesium (01/27/2023 3:49 AM EDT) Magnesium 0.97 0.69 - 1.07 mmol/L [facility] Blood 01/27/2023 3:49 AM EDT 01/27/2023 4:08 AM EDT Narrative Resulting Agency Comment Spec In Lab Tanya Seaman MD CHEMISTRY ORDERABL ES Performing Organization Address [facility] de Phone Number [facility] [place] [address] * (ABNORMAL) Basic Metabolic Panel (non-fasting) (01/27/2023 3:49 AM EDT) Glucose 142 65 - 199 mg/dL [facility] Comment:Diabetes: >=200 mg/d L plus symptoms Blood Urea Nitrogen 78(H) 10 - 20 mg/dL [facility] Creatinine 4.74(H) 0.80 - 1.50 mg/dL [facility] Sodium 137 135 - 145 mmol/L [facility] Potassium 4.8 3.5 - 5.0 mmol/L [facility] Comment: Please note: ??Patients with WBC >100,000 may have falsely elevated Potassium levels. ??For accurate Potassium quantification in these patients send serum separator tube (gold top) for subsequent determinations. ??Contact the Clinical Chemistry Laboratory if there are any questions. Chloride 107 98 - 107 mmol/L [facility] Carbon Dioxide 15(L) 22 - 31 mmol/L [facility] Anion Gap 15 5 - 15 mmol/L [facility] Calcium 9.4 8.5 - 10.5 mg/dL [facility] Est Glomerular Filtration Rate 13(L) >=60 mL/min/1. 73 m?? [facility] Comment: This patient's estimated GFR was [...] Lab Tanya Seaman MD CHEMISTRY ORDERABL ES [facility] [place] [address] * (ABNORMAL) POCT Glucose (01/26/2023 8:20 PM EDT) Glucose, POC 202(H) 65 - 199 mg/dL [facility] Comment: Supplemental ranges: <140 mg/dL before meals <180 mg/dL all other times of the day Blood 01/26/2023 8:20 PM EDT 01/26/2023 8:20 PM EDT Mendel Luna MD POINT OF CARE TEST O RDERABLES [facility] [place] [address] * POCT Glucose (01/26/2023 4:04 PM EDT) Glucose, POC 152 65 - 199 mg/dL [facility] Comment: Supplemental ranges: <140 mg/dL before meals <180 mg/dL all other times of the day Blood 01/26/2023 4:04 PM EDT 01/26/2023 4:04 PM EDT Mendel Luna MD POINT OF CARE TEST O RDERABLES Performing Organization Address City/[facility]/ZIP Co de Phone Number [facility] [place] [address] * POCT Glucose (01/26/2023 11:42 AM EDT) Glucose, POC 175 65 - 199 mg/dL [facility] Comment: Supplemental ranges: <140 mg/dL before meals <180 mg/dL all other times of the day Blood 01/26/2023 11:4 2 AM EDT 01/26/2023 11:42 AM EDT Mendel Luna MD POINT OF CARE TEST O RDERABLES Performing Organization Address [facility] Co de Phone Number [facility] [place] [address] * POCT Glucose (01/26/2023 7:51 AM EDT) Glucose, POC 137 65 - 199 mg/dL [facility] Comment: Supplemental ranges: <140 mg/dL before meals <180 mg/dL all other times of the day Blood 01/26/2023 7:51 AM EDT 01/26/2023 7:51 AM EDT Mendel Luna MD POINT OF CARE TEST O RDERABLES Performing Organization Address City/[facility] Co de Phone Number [facility] [place] [address] * Differential, Automated (01/26/2023 3:11 AM EDT) Neutrophil % 71.1 % [facility] Neutrophil Absolute 5.94 1.70 - 6.10 x10(3)/mcL [facility] Lymph % 15.3 % [facility] Lymphocytes Abs 1.3 0.9 - 3.2 x10(3)/[facility] Monocyte % 8.9 % [facility] Monocyte Abs 0.7 0.3 - 0.9 x10(3)/[facility] Eos % 3.6 % [facility] Eosinophils Abs 0.3 0.0 - 0.4 x10(3)/[facility] Basophil % 0.7 % [facility] Baso Absolute 0.1 0.0 - 0.1 x10(3)/[facility] Immature Gran % 0.40 % [facility] Comment: Immature granulocytes(IG's)percentage and absolute count will include metamyelocytes, myelocytes, and promyelocytes. Blood smears from CBCs yielding IG's will be scanned manually for concordance. If this scan disagrees with the automated IG or if promyelocytes are noted, a manual differential will be performed. Immature Gran Absolute 0.03 0.00 - 0.04 x10(3)/[facility] Blood 01/26/2023 3:11 AM EDT 01/26/2023 3:40 AM EDT Narrative Resulting Agency Comment Spec In Lab Kyle Mckeon MD HEMATOLOGY ORDERABLE S [facility] [place] [address] * (ABNORMAL) Hemogram (01/26/2023 3:11 AM EDT) White Blood Cell 8.4 4.0 - 9.5 x10(3)/mc L [facility] Red Blood Cell 3.25(L) 4.58 - 5.54 x10(6)/mc L [facility] Hemoglobin 10.2(L) 13.7 - 16.5 g/dL [facility] Hematocrit 29.8(L) 40.5 - 48.5 % [facility] Mean Cell Volume 91.7 82.9 - 93.1 fL [facility] Mean Cell Hemoglobin 31.4 27.5 - 32.1 pg [facility] Mean Cell Hemoglobin Concentration 34.2 32.0 - 35.7 g/dL [facility] Platelet 161 145 - 357 x10(3)/mc L [facility] RDW Standard Deviation 43.0 36.0 - 45.0 fL [facility] RDW coefficient of variation 13.0 11.4 - 13.8 % [facility] Mean Platelet Volume 13.0(H) 7.6 - 12.9 fL [facility] NRBC% auto 0.0 % [facility] NRBC Absolute 0.000 0.000 - 0.000 x10(3)/mc L [facility] Blood 01/26/2023 3:11 AM EDT 01/26/2023 3:40 AM EDT Narrative Resulting Agency Comment Spec In Lab Kyle Mckeon MD HEMATOLOGY ORDERABLE S Performing Organization Address [facility] Co de Phone Number [facility] [place] [address] * (ABNORMAL) Phosphorus (01/26/2023 3:11 AM EDT) Phosphorus 4.6(H) 2.5 - 4.5 mg/dL [facility] Blood 01/26/2023 3:11 AM EDT 01/26/2023 3:39 AM EDT Narrative Resulting Agency Comment Spec In Lab Tanya Seaman MD CHEMISTRY ORDERABL ES Performing Organization Address [facility] Co de Phone Number [facility] [address] * Magnesium (01/26/2023 3:11 AM EDT) Magnesium 0.97 0.69 - 1.07 mmol/L [facility] Blood 01/26/2023 3:11 AM EDT 01/26/2023 3:39 AM EDT Narrative Resulting Agency Comment Spec In Lab Tanya Seaman MD CHEMISTRY ORDERABL ES Performing Organization Address City/[facility] Co de Phone Number [facility] [address] * (ABNORMAL) Basic Metabolic Panel (non-fasting) (01/26/2023 3:11 AM EDT) Glucose 127 65 - 199 mg/dL [facility] Comment:Diabetes: >=200 mg/d L plus symptoms Blood Urea Nitrogen 77(H) 10 - 20 mg/dL [facility] Creatinine 4.91(H) 0.80 - 1.50 mg/dL [facility] Sodium 139 135 - 145 mmol/L [facility] Potassium 4.8 3.5 - 5.0 mmol/L [facility] Comment: Please note: ??Patients with WBC >100,000 may have falsely elevated Potassium levels. ??For accurate Potassium quantification in these patients send serum separator tube (gold top) for subsequent determinations. ??Contact the Clinical Chemistry Laboratory if there are any questions. Chloride 105 98 - 107 mmol/L [facility] Carbon Dioxide 18(L) 22 - 31 mmol/L [facility] Anion Gap 16(H) 5 - 15 mmol/L [facility] Calcium 9.3 8.5 - 10.5 mg/dL [facility] Est Glomerular Filtration Rate 12(L) >=60 mL/min/1. 73 m?? [facility] Comment: This patient's estimated GFR was [...] Lab Tanya Seaman MD CHEMISTRY ORDERABL ES [facility] [place] [address] * POCT Glucose (01/25/2023 9:24 PM EDT) Glucose, POC 181 65 - 199 mg/dL [facility] Comment: Supplemental ranges: <140 mg/dL before meals <180 mg/dL all other times of the day Blood 01/25/2023 9:24 PM EDT 01/25/2023 9:24 PM EDT Mendel Luna MD POINT OF CARE TEST O RDERABLES Performing Organization Address [facility] Co de Phone Number [facility] [address] * POCT Glucose (01/25/2023 4:46 PM EDT) Glucose, POC 153 65 - 199 mg/dL [facility] Comment: Supplemental ranges: <140 mg/dL before meals <180 mg/dL all other times of the day Blood 01/25/2023 4:46 PM EDT 01/25/2023 4:46 PM EDT Mendel Luna MD POINT OF CARE TEST O TES[place] Performing Organization Address [facility] de Phone Number [facility] [address] * US Retroperitoneal Complete (01/25/2023 3:50 PM [...] who have questions, please contact the health senior resident care director that requested your imaging first. ?Elsie Garza, [place] Pediatric Oncologist Electronically Signed Final Report ?? 01/25/2023 04:10 pm Narrative 01/25/2023 4:11 PM EDT Renal ? (Signed Final 01/25/2023 04:10 pm) PATIENT INFO: ID #: ? [id number] ?: ??[birth year] (67 yrs)(M) Name: ? MIGUEL SANCHEZ ? Visit Date: 01/25/2023 03:47 pm PERFORMED BY: Attending: ?Kayla OTT, Elsie Conley Performed By: ? Paola Pritchard RDMS Referred By: ?MENDEL LUNA Location: ? [place] SERVICE(S) PROVIDED: URETRO - Retroperitoneal Complete - [id number] ? [id number] INDICATIONS: 67yo male with CLEM, repeat U/S [...] 01/25/2023 04:10 pm) PATIENT INFO: ID #: [id number] : [birth year] (67 yrs)(M) Name: MIGUEL SANCHEZ Visit Date: 01/25/2023 03:47 pm PERFORMED BY: Attending: Elsie Garza MD Performed By: Paola Pritchard RDMS Referred By: MENDEL LUNA Location: [place] SERVICE(S) PROVIDED: URETRO - Retroperitoneal Complete - [id number] INDICATIONS: 67yo male with CLEM, repeat U/S [...] who have questions, please contact the health senior resident care director that requested your imaging first. Elsie Garza, [facility] Pediatric Oncologist Electronically Signed Final Report 01/25/2023 04:10 pm Mendel Luna MD [facility] US GEN ORDERABLE S * POCT Glucose (01/25/2023 11:20 AM EDT) Glucose, POC 182 65 - 199 mg/dL [facility] Comment: Supplemental ranges: <140 mg/dL before meals <180 mg/dL all other times of the day Blood 01/25/2023 11:2 0 AM EDT 01/25/2023 11:20 AM EDT Mendel Luna MD POINT OF CARE TEST O RDERABLES Performing Organization Address City/[facility]/ZIP Co de Phone Number [facility] [place] [address] * POCT Glucose (01/25/2023 7:44 AM EDT) Glucose, POC 155 65 - 199 mg/dL [facility] Comment: Supplemental ranges: <140 mg/dL before meals <180 mg/dL all other times of the day Blood 01/25/2023 7:44 AM EDT 01/25/2023 7:44 AM EDT Mendel Luna MD POINT OF CARE TEST O RDERABLES Performing Organization Address City/[facility] Co de Phone Number [facility] [address] * Differential, Automated (01/25/2023 4:06 AM EDT) Neutrophil % 72.7 % [facility] Neutrophil Absolute 5.96 1.70 - 6.10 x10(3)/[facility] Lymph % 14.7 % [facility] Lymphocytes Abs 1.2 0.9 - 3.2 x10(3)/[facility] Monocyte % 8.2 % [facility] Monocyte Abs 0.7 0.3 - 0.9 x10(3)/[facility] Eos % 3.5 % [facility] Eosinophils Abs 0.3 0.0 - 0.4 x10(3)/[facility] Basophil % 0.7 % [facility] Baso Absolute 0.1 0.0 - 0.1 x10(3)/[facility] Immature Gran % 0.20 % [facility] Comment: Immature granulocytes(IG's)percentage and absolute count will include metamyelocytes, myelocytes, and promyelocytes. Blood smears from CBCs yielding IG's will be scanned manually for concordance. If this scan disagrees with the automated IG or if promyelocytes are noted, a manual differential will be performed. Immature Gran Absolute 0.02 0.00 - 0.04 x10(3)/mcL [facility] Blood 01/25/2023 4:06 AM EDT 01/25/2023 4:17 AM EDT Narrative Resulting Agency Comment Spec In Lab Kyle Mckeon MD HEMATOLOGY ORDERABLE S [facility] [place] [address] * (ABNORMAL) Hemogram (01/25/2023 4:06 AM EDT) White Blood Cell 8.2 4.0 - 9.5 x10(3)/mc L [facility] Red Blood Cell 3.38(L) 4.58 - 5.54 x10(6)/mc L [facility] Hemoglobin 10.6(L) 13.7 - 16.5 g/dL [facility] Hematocrit 30.7(L) 40.5 - 48.5 % [facility] Mean Cell Volume 90.8 82.9 - 93.1 fL [facility] Mean Cell Hemoglobin 31.4 27.5 - 32.1 pg [facility] Mean Cell Hemoglobin Concentration 34.5 32.0 - 35.7 g/dL [facility] Platelet 170 145 - 357 x10(3)/mc L [facility] RDW Standard Deviation 42.1 36.0 - 45.0 fL [facility] RDW coefficient of variation 12.8 11.4 - 13.8 % [facility] Mean Platelet Volume 12.6 7.6 - 12.9 fL [facility] NRBC% auto 0.0 % [facility] NRBC Absolute 0.000 0.000 - 0.000 x10(3)/mc L [facility] Blood 01/25/2023 4:06 AM EDT 01/25/2023 4:17 AM EDT Narrative Resulting Agency Comment Spec In Lab Kyle Mckeon MD HEMATOLOGY ORDERABLE S [facility] [place] [address] * (ABNORMAL) Phosphorus (01/25/2023 4:06 AM EDT) Phosphorus 4.9(H) 2.5 - 4.5 mg/dL [facility] Blood 01/25/2023 4:06 AM EDT 01/25/2023 4:17 AM EDT Narrative Resulting Agency Comment Spec In Lab Tanya Seaman MD CHEMISTRY ORDERABL ES Performing Organization Address [facility] Co de Phone Number [facility] [address] * Magnesium (01/25/2023 4:06 AM EDT) Magnesium 1.00 0.69 - 1.07 mmol/L [facility] Blood 01/25/2023 4:06 AM EDT 01/25/2023 4:17 AM EDT Narrative Resulting Agency Comment Spec In Lab Tanya Seaman MD CHEMISTRY ORDERABL ES Performing Organization Address [facility] de Phone Number [facility] [address] * (ABNORMAL) Basic Metabolic Panel (non-fasting) (01/25/2023 4:06 AM EDT) Glucose 148 65 - 199 mg/dL [facility] Comment:Diabetes: >=200 mg/d L plus symptoms Blood Urea Nitrogen 78(H) 10 - 20 mg/dL [facility] Creatinine 5.06(H) 0.80 - 1.50 mg/dL [facility] Sodium 139 135 - 145 mmol/L [facility] Potassium 4.5 3.5 - 5.0 mmol/L [facility] Comment: Please note: ??Patients with WBC >100,000 may have falsely elevated Potassium levels. ??For accurate Potassium quantification in these patients send serum separator tube (gold top) for subsequent determinations. ??Contact the Clinical Chemistry Laboratory if there are any questions. Chloride 103 98 - 107 mmol/L [facility] Carbon Dioxide 19(L) 22 - 31 mmol/L [facility] Anion Gap 17(H) 5 - 15 mmol/L [facility] Calcium 9.5 8.5 - 10.5 mg/dL [facility] Est Glomerular Filtration Rate 12(L) >=60 mL/min/1. 73 m?? [facility] Comment: This patient's estimated GFR was [...] MD CHEMISTRY ORDERABL ES Performing Organization Address City/[facility]/ZIP Co de Phone Number [facility] [address] * POCT Glucose (01/24/2023 10:12 PM EDT) Glucose, POC 175 65 - 199 mg/dL [facility] Comment: Supplemental ranges: <140 mg/dL before meals <180 mg/dL all other times of the day Blood 01/24/2023 10:1 2 PM EDT 01/24/2023 10:12 PM EDT Mendel Luna MD POINT OF CARE TEST O RDERABLES [facility] [place] [address] * POCT Glucose (01/24/2023 4:41 PM EDT) Glucose, POC 157 65 - 199 mg/dL [facility] Comment: Supplemental ranges: <140 mg/dL before meals <180 mg/dL all other times of the day Blood 01/24/2023 4:41 PM EDT 01/24/2023 4:41 PM EDT Mendel Luna MD POINT OF CARE TEST O RDERABLES Performing Organization Address City/[facility] Co de Phone Number [facility] [address] * POCT Glucose (01/24/2023 12:10 PM EDT) Glucose, POC 177 65 - 199 mg/dL [facility] Comment: Supplemental ranges: <140 mg/dL before meals <180 mg/dL all other times of the day Blood 01/24/2023 12:1 0 PM EDT 01/24/2023 12:10 PM EDT Mendel Luna MD POINT OF CARE TEST O RDERABLES Performing Organization Address [facility] Co de Phone Number [facility] [address] * POCT Glucose (01/24/2023 7:51 AM EDT) Glucose, POC 175 65 - 199 mg/dL [facility] Comment: Supplemental ranges: <140 mg/dL before meals <180 mg/dL all other times of the day Blood 01/24/2023 7:51 AM EDT 01/24/2023 7:51 AM EDT Mendel Luna MD POINT OF CARE TEST O RDERABLES Performing Organization Address City/[facility] Co de Phone Number [facility] [address] * (ABNORMAL) Phosphorus (01/24/2023 2:56 AM EDT) Phosphorus 5.0(H) 2.5 - 4.5 mg/dL [facility] Blood 01/24/2023 2:56 AM EDT 01/24/2023 3:06 AM EDT Narrative Resulting Agency Comment Spec In Lab Tanya Seaman MD CHEMISTRY ORDERABL ES Performing Organization Address [facility] Co de Phone Number [facility] [address] * Magnesium (01/24/2023 2:56 AM EDT) Magnesium 0.94 0.69 - 1.07 mmol/L [facility] Blood 01/24/2023 2:56 AM EDT 01/24/2023 3:06 AM EDT Narrative Resulting Agency Comment Spec In Lab Tanya Seaman MD CHEMISTRY ORDERABL ES Performing Organization Address [facility] de Phone Number [facility] [address] * (ABNORMAL) Basic Metabolic Panel (non-fasting) (01/24/2023 2:56 AM EDT) Glucose 131 65 - 199 mg/dL [facility] Comment:Diabetes: >=200 mg/d L plus symptoms Blood Urea Nitrogen 80(H) 10 - 20 mg/dL [facility] Creatinine 5.46(H) 0.80 - 1.50 mg/dL [facility] Sodium 139 135 - 145 mmol/L [facility] Potassium 4.5 3.5 - 5.0 mmol/L [facility] Comment: Please note: ??Patients with WBC >100,000 may have falsely elevated Potassium levels. ??For accurate Potassium quantification in these patients send serum separator tube (gold top) for subsequent determinations. ??Contact the Clinical Chemistry Laboratory if there are any questions. Chloride 104 98 - 107 mmol/L [facility] Carbon Dioxide 21(L) 22 - 31 mmol/L [facility] Anion Gap 14 5 - 15 mmol/L [facility] Calcium 9.3 8.5 - 10.5 mg/dL [facility] Est Glomerular Filtration Rate 11(L) >=60 mL/min/1. 73 m?? [facility] Comment: This patient's estimated GFR [...] MD CHEMISTRY ORDERABL ES Performing Organization Address [facility] Co de Phone Number [facility] [address] * POCT Glucose (01/23/2023 9:16 PM EDT) Glucose, POC 150 65 - 199 mg/dL [facility] Comment: Supplemental ranges: <140 mg/dL before meals <180 mg/dL all other times of the day Blood 01/23/2023 9:16 PM EDT 01/23/2023 9:16 PM EDT Mendel Luna MD POINT OF CARE TEST O RDERABLES Performing Organization Address [facility] Co de Phone Number [facility] [address] * (ABNORMAL) POCT Glucose (01/23/2023 3:13 PM EDT) Glucose, POC 246(H) 65 - 199 mg/dL [facility] Comment: Supplemental ranges: <140 mg/dL before meals <180 mg/dL all other times of the day Blood 01/23/2023 3:13 PM EDT 01/23/2023 3:13 PM EDT Mendel Luna MD POINT OF CARE TEST O RDERABLES Performing Organization Address City/[facility]/ZIP Co de Phone Number [facility] [address] * POCT Glucose (01/23/2023 11:06 AM EDT) Glucose, POC 163 65 - 199 mg/dL [facility] Comment: Supplemental ranges: <140 mg/dL before meals <180 mg/dL all other times of the day Blood 01/23/2023 11:0 6 AM EDT 01/23/2023 11:06 AM EDT Mendel Luna MD POINT OF CARE TEST O RDERABLES Performing Organization Address City/[facility] Co de Phone Number [facility] [address] * POCT Glucose (01/23/2023 7:46 AM EDT) Glucose, POC 165 65 - 199 mg/dL [facility] Comment: Supplemental ranges: <140 mg/dL before meals <180 mg/dL all other times of the day Blood 01/23/2023 7:46 AM EDT 01/23/2023 7:46 AM EDT Mendel Luna MD POINT OF CARE TEST O RDERABLES Performing Organization Address [facility] de Phone Number [facility] [address] * Differential, Automated (01/23/2023 2:53 AM EDT) Neutrophil % 72.0 % [facility] Neutrophil Absolute 5.86 1.70 - 6.10 x10(3)/[facility] Lymph % 13.8 % [facility] Lymphocytes Abs 1.1 0.9 - 3.2 x10(3)/[facility] Monocyte % 9.2 % [facility] Monocyte Abs 0.8 0.3 - 0.9 x10(3)/[facility] Eos % 4.1 % [facility] Eosinophils Abs 0.3 0.0 - 0.4 x10(3)/[facility] Basophil % 0.7 % [facility] Baso Absolute 0.1 0.0 - 0.1 x10(3)/mcL [facility] Immature Gran % 0.20 % [facility] Comment: Immature granulocytes(IG's)percentage and absolute count will include metamyelocytes, myelocytes, and promyelocytes. Blood smears from CBCs yielding IG's will be scanned manually for concordance. If this scan disagrees with the automated IG or if promyelocytes are noted, a manual differential will be performed. Immature Gran Absolute 0.02 0.00 - 0.04 x10(3)/[facility] Blood 01/23/2023 2:53 AM EDT 01/23/2023 3:05 AM EDT Narrative Resulting Agency Comment Spec In Lab Kyle Mckeon MD HEMATOLOGY ORDERABLE S [facility] [place] [address] * (ABNORMAL) Hemogram (01/23/2023 2:53 AM EDT) White Blood Cell 8.1 4.0 - 9.5 x10(3)/mc L [facility] Red Blood Cell 3.41(L) 4.58 - 5.54 x10(6)/mc L [facility] Hemoglobin 10.4(L) 13.7 - 16.5 g/dL [facility] Hematocrit 30.7(L) 40.5 - 48.5 % [facility] Mean Cell Volume 90.0 82.9 - 93.1 fL [facility] Mean Cell Hemoglobin 30.5 27.5 - 32.1 pg [facility] Mean Cell Hemoglobin Concentration 33.9 32.0 - 35.7 g/dL [facility] Platelet 182 145 - 357 x10(3)/mc L [facility] RDW Standard Deviation 42.3 36.0 - 45.0 fL [facility] RDW coefficient of variation 13.0 11.4 - 13.8 % [facility] Mean Platelet Volume 12.1 7.6 - 12.9 fL [facility] NRBC% auto 0.0 % [facility] NRBC Absolute 0.000 0.000 - 0.000 x10(3)/mc L [facility] Blood 01/23/2023 2:53 AM EDT 01/23/2023 3:05 AM EDT Narrative Resulting Agency Comment Spec In Lab Kyle Mckeon MD HEMATOLOGY ORDERABLE S Performing Organization Address [facility] Co de Phone Number [facility] [address] * (ABNORMAL) Phosphorus (01/23/2023 2:53 AM EDT) Phosphorus 5.8(H) 2.5 - 4.5 mg/dL [facility] Blood 01/23/2023 2:53 AM EDT 01/23/2023 3:05 AM EDT Narrative Resulting Agency Comment Spec In Lab Tanya Seaman MD CHEMISTRY ORDERABL ES Performing Organization Address [facility] de Phone Number [facility] [address] * Magnesium (01/23/2023 2:53 AM EDT) Magnesium 0.96 0.69 - 1.07 mmol/L [facility] Blood 01/23/2023 2:53 AM EDT 01/23/2023 3:05 AM EDT Narrative Resulting Agency Comment Spec In Lab Tanya Seaman MD CHEMISTRY ORDERABL ES Performing Organization Address [facility] Phone Number [facility] [place] [address] * (ABNORMAL) Basic Metabolic Panel (non-fasting) (01/23/2023 2:53 AM EDT) Glucose 131 65 - 199 mg/dL [facility] Comment:Diabetes: >=200 mg/d L plus symptoms Blood Urea Nitrogen 81(H) 10 - 20 mg/dL [facility] Creatinine 5.47(H) 0.80 - 1.50 mg/dL [facility] Sodium 139 135 - 145 mmol/L [facility] Potassium 4.4 3.5 - 5.0 mmol/L [facility] Comment: Please note: ??Patients with WBC >100,000 may have falsely elevated Potassium levels. ??For accurate Potassium quantification in these patients send serum separator tube (gold top) for subsequent determinations. ??Contact the Clinical Chemistry Laboratory if there are any questions. Chloride 105 98 - 107 mmol/L [facility] Carbon Dioxide 20(L) 22 - 31 mmol/L [facility] Anion Gap 14 5 - 15 mmol/L [facility] Calcium 9.2 8.5 - 10.5 mg/dL [facility] Est Glomerular Filtration Rate 11(L) >=60 mL/min/1. 73 m?? [facility] Comment: This patient's estimated GFR was [...] MD CHEMISTRY ORDERABL ES Performing Organization Address City/[facility]/ZIP Co de Phone Number [facility] [place] [address] * (ABNORMAL) POCT Glucose (01/22/2023 7:28 PM EDT) Glucose, POC 237(H) 65 - 199 mg/dL [facility] Comment: Supplemental ranges: <140 mg/dL before meals <180 mg/dL all other times of the day Blood 01/22/2023 7:28 PM EDT 01/22/2023 7:28 PM EDT Mendel Luna MD POINT OF CARE TEST O RDERABLES [facility] [place] [address] * POCT Glucose (01/22/2023 5:30 PM EDT) Glucose, POC 130 65 - 199 mg/dL [facility] Comment: Supplemental ranges: <140 mg/dL before meals <180 mg/dL all other times of the day Blood 01/22/2023 5:30 PM EDT 01/22/2023 5:30 PM EDT Mendel Luna MD POINT OF CARE TEST O RDERABLES [facility] [place] [address] * CARDIAC CATHETERIZATION (01/22/2023 5:10 PM EDT) Anatomical Region Laterality Modality Other Narrative 01/22/2023 5:07 PM EDT ?[facility] ? Cardiac Catheterization/Intervention Report ? Patient Name: Miguel Sanchez ? Procedure Date: 01/22/2023 ? A #: [id number] ? Primary Physician: Morris, Layton P ? Case #: [id number] ? File Name: [id number] ? Catheterization Order Number: [id number] ? [facility] ? Final Report [place], [place] ? Patient Name: ? Miguel Cook ? ID#: ?[id number] ? : ?1955 ? Procedure Date: ? [...] was Urgent. The indication for ?the laborer demolition visit is cardiomyopathy. Chest pain symptom assessment [...] Procedure Note Layton Morris MD - 01/22/2023 [facility] Cardiac Catheterization/Intervention Report Patient Name: Miguel Sanchez Procedure Date: 01/22/2023 A #: [id number] Primary Physician: Layton Morris Case #: [id number] File Name: [id number] Catheterization Order Number: [id number] [facility] FinalReport [place], [place] Patient Name: Miguel Sanchez ID#:[id number] :1955 Procedure Date: January 22, 2023 Case [...] patient was designated as ASA Class III. [facility] fra[facility] is 5: Mildly Frail. Diagnostic Tests: Medications Prior to Procedure: Angiotensin Converting Enzyme Inhibitor, Aspirin, Beta Blockerand Statin. Indications for Diagnostic Cath: The priority of the diagnostic procedure was Urgent. The indicationfor the laborer demolition visit is cardiomyopathy. Chest pain symptom assessmentwas: [...] * POCT Glucose (01/22/2023 12:35 PM EDT) Glucose, POC 165 65 - 199 mg/dL [facility] Comment: Supplemental ranges: <140 mg/dL before meals <180 mg/dL all other times of the day Blood 01/22/2023 12:3 5 PM EDT 01/22/2023 12:35 PM EDT Mendel Luna MD POINT OF CARE TEST O RDERABLES [facility] [address] * POCT Glucose (01/22/2023 7:52 AM EDT) Glucose, POC 145 65 - 199 mg/dL [facility] Comment: Supplemental ranges: <140 mg/dL before meals <180 mg/dL all other times of the day Blood 01/22/2023 7:52 AM EDT 01/22/2023 7:52 AM EDT Chris Lim MD POINT OF CARE TEST O RDERABLES Performing Organization Address City/[facility]/ZIP Co de Phone Number [facility] [address] * Differential, Automated (01/22/2023 2:42 AM EDT) Neutrophil % 73.7 % [facility] Neutrophil Absolute 6.10 1.70 - 6.10 x10(3)/[facility] Lymph % 12.5 % [facility] Lymphocytes Abs 1.0 0.9 - 3.2 x10(3)/[facility] Monocyte % 8.8 % [facility] Monocyte Abs 0.7 0.3 - 0.9 x10(3)/[facility] Eos % 4.1 % [facility] Eosinophils Abs 0.3 0.0 - 0.4 x10(3)/[facility] Basophil % 0.7 % [facility] Baso Absolute 0.1 0.0 - 0.1 x10(3)/[facility] Immature Gran % 0.20 % [facility] Comment: Immature granulocytes(IG's)percentage and absolute count will include metamyelocytes, myelocytes, and promyelocytes. Blood smears from CBCs yielding IG's will be scanned manually for concordance. If this scan disagrees with the automated IG or if promyelocytes are noted, a manual differential will be performed. Immature Gran Absolute 0.02 0.00 - 0.04 x10(3)/[facility] Blood 01/22/2023 2:42 AM EDT 01/22/2023 3:03 AM EDT Narrative Resulting Agency Comment Spec In Lab Kyle Mckeon MD HEMATOLOGY ORDERABLE S Performing Organization Address City/State/[facility] Co de Phone Number [facility] [address] * (ABNORMAL) Hemogram (01/22/2023 2:42 AM EDT) White Blood Cell 8.3 4.0 - 9.5 x10(3)/mc L [facility] Red Blood Cell 3.41(L) 4.58 - 5.54 x10(6)/mc L [facility] Hemoglobin 10.3(L) 13.7 - 16.5 g/dL [facility] Hematocrit 30.8(L) 40.5 - 48.5 % [facility] Mean Cell Volume 90.3 82.9 - 93.1 fL [facility] Mean Cell Hemoglobin 30.2 27.5 - 32.1 pg [facility] Mean Cell Hemoglobin Concentration 33.4 32.0 - 35.7 g/dL [facility] Platelet 183 145 - 357 x10(3)/mc L [facility] RDW Standard Deviation 42.0 36.0 - 45.0 fL [facility] RDW coefficient of variation 12.9 11.4 - 13.8 % [facility] Mean Platelet Volume 12.1 7.6 - 12.9 fL [facility] NRBC% auto 0.0 % [facility] NRBC Absolute 0.000 0.000 - 0.000 x10(3)/mc L [facility] Blood 01/22/2023 2:42 AM EDT 01/22/2023 3:03 AM EDT Narrative Resulting Agency Comment Spec In Lab Kyle Mckeon MD HEMATOLOGY ORDERABLE S Performing Organization Address [facility] Co de Phone Number [facility] [address] * (ABNORMAL) Phosphorus (01/22/2023 2:42 AM EDT) Phosphorus 5.8(H) 2.5 - 4.5 mg/dL [facility] Blood 01/22/2023 2:42 AM EDT 01/22/2023 3:03 AM EDT Narrative Resulting Agency Comment Spec In Lab Tanya Seaman MD CHEMISTRY ORDERABL ES Performing Organization Address [facility] de Phone Number [facility] [address] * Magnesium (01/22/2023 2:42 AM EDT) Magnesium 0.97 0.69 - 1.07 mmol/L [facility] Blood 01/22/2023 2:42 AM EDT 01/22/2023 3:03 AM EDT Narrative Resulting Agency Comment Spec In Lab Tanya Seaman MD CHEMISTRY ORDERABL ES Performing Organization Address [facility] Co de Phone Number [facility] [address] * (ABNORMAL) Basic Metabolic Panel (non-fasting) (01/22/2023 2:42 AM EDT) Glucose 153 65 - 199 mg/dL [facility] Comment:Diabetes: >=200 mg/d L plus symptoms Blood Urea Nitrogen 79(H) 10 - 20 mg/dL [facility] Creatinine 5.86(H) 0.80 - 1.50 mg/dL [facility] Sodium 138 135 - 145 mmol/L [facility] Potassium 4.2 3.5 - 5.0 mmol/L [facility] Comment: Please note: ??Patients with WBC >100,000 may have falsely elevated Potassium levels. ??For accurate Potassium quantification in these patients send serum separator tube (gold top) for subsequent determinations. ??Contact the Clinical Chemistry Laboratory if there are any questions. Chloride 104 98 - 107 mmol/L [facility] Carbon Dioxide 20(L) 22 - 31 mmol/L [facility] Anion Gap 14 5 - 15 mmol/L [facility] Calcium 9.2 8.5 - 10.5 mg/dL [facility] Est Glomerular Filtration Rate 10(L) >=60 mL/min/1. 73 m?? [facility] Comment: This patient's estimated GFR was [...] Lab Tanya Seaman MD CHEMISTRY ORDERABL ES [facility] [place] [address] * C3 Complement (01/22/2023 2:42 AM EDT) Complement C3 126 90 - 180 mg/dL [facility] Blood 01/22/2023 2:42 AM EDT 01/22/2023 3:03 AM EDT Narrative Resulting Agency Comment Spec In Lab Chris Lim MD CHEMISTRY ORDERABLES [facility] [place] [address] * POCT Glucose (01/21/2023 6:41 PM EDT) Glucose, POC 199 65 - 199 mg/dL [facility] Comment: Supplemental ranges: <140 mg/dL before meals <180 mg/dL all other times of the day Blood 01/21/2023 6:41 PM EDT 01/21/2023 6:41 PM EDT Chris Lim MD POINT OF CARE TEST O RDERABLES [facility] [place] [address] * POCT Glucose (01/21/2023 3:57 PM EDT) Glucose, POC 125 65 - 199 mg/dL [facility] Comment: Supplemental ranges: <140 mg/dL before meals <180 mg/dL all other times of the day Blood 01/21/2023 3:57 PM EDT 01/21/2023 3:57 PM EDT Chris Lim MD POINT OF CARE TEST O RDERAMARCY Performing Organization Address City/[facility]/ZIP Co de Phone Number [facility] [address] * (ABNORMAL) POCT Glucose (01/21/2023 11:32 AM EDT) Glucose, POC 249(H) 65 - 199 mg/dL [facility] Comment: Supplemental ranges: <140 mg/dL before meals <180 mg/dL all other times of the day Blood 01/21/2023 11:3 2 AM EDT 01/21/2023 11:32 AM EDT Chris Lim MD POINT OF CARE TEST O RDERABLES [facility] [address] * (ABNORMAL) POCT Glucose (01/21/2023 9:38 AM EDT) Glucose, POC 233(H) 65 - 199 mg/dL [facility] Comment: Supplemental ranges: <140 mg/dL before meals <180 mg/dL all other times of the day Blood 01/21/2023 9:38 AM EDT 01/21/2023 9:38 AM EDT Chris Lim MD POINT OF CARE TEST O RDERABLES [facility] [address] * EKG 12 Lead (01/21/2023 8:33 AM EDT) Ventricular rate 74 BPM MUSE SYSTEM Atrial Rate 74 BPM MUSE SYSTEM P-R Interval 180 ms MUSE SYSTEM QRS Duration 126 ms MUSE SYSTEM Q-T Interval 454 ms MUSE SYSTEM QTC Calculated (Bezet) 503 ms MUSE SYSTEM Calculated P [place] 32 degrees MUSE SYSTEM Calculated R [place] -35 degrees MUSE SYSTEM Calculated T [place] 97 degrees MUSE SYSTEM INTERPRETATION Normal sinus rhythm Left axis deviation Non-specific intra-ventricu lar conduction block Nonspecific T wave abnormality Abnormal ECG When compared with ECG of 18-JAN-2023 18:52, No significant change was found Confirmed by fellow Lacey Oliveros ([id number]) on 01/23/2023 10:03:20 AM Confirmed by MD Gonzalez David ([id number]) on 01/24/2023 8:22:03 AM MUSE SYSTEM 01/21/2023 8:33 AM EDT 01/24/2023 8:22 AM EDT Tanya Seaman MD ECG ORDERABLES MUSE SYSTEM * POCT Glucose (01/21/2023 8:05 AM EDT) Glucose, POC 178 65 - 199 mg/dL [facility] Comment: Supplemental ranges: <140 mg/dL before meals <180 mg/dL all other times of the day Blood 01/21/2023 8:05 AM EDT 01/21/2023 8:05 AM EDT Chris Lim MD POINT OF CARE TEST O RDERABLES Performing Organization Address City/[facility]/[place] [address] * Differential, Automated (01/21/2023 2:42 AM EDT) Neutrophil % 70.7 % [facility] Neutrophil Absolute 5.75 1.70 - 6.10 x10(3)/[facility] Lymph % 14.5 % [facility] Lymphocytes Abs 1.2 0.9 - 3.2 x10(3)/[facility] Monocyte % 9.1 % [facility] Monocyte Abs 0.7 0.3 - 0.9 x10(3)/[facility] Eos % 4.6 % [facility] Eosinophils Abs 0.4 0.0 - 0.4 x10(3)/[facility] Basophil % 0.7 % [facility] Baso Absolute 0.1 0.0 - 0.1 x10(3)/[facility] Immature Gran % 0.40 % [facility] Comment: Immature granulocytes(IG's)percentage and absolute count will include metamyelocytes, myelocytes, and promyelocytes. Blood smears from CBCs yielding IG's will be scanned manually for concordance. If this scan disagrees with the automated IG or if promyelocytes are noted, a manual differential will be performed. Immature Gran Absolute 0.03 0.00 - 0.04 x10(3)/[facility] Blood 01/21/2023 2:42 AM EDT 01/21/2023 2:59 AM EDT Narrative Resulting Agency Comment Spec In Lab Kyle Mckeon MD HEMATOLOGY ORDERABLE S Performing Organization Address [facility] Co de Phone Number [facility] [address] * (ABNORMAL) Hemogram (01/21/2023 2:42 AM EDT) White Blood Cell 8.1 4.0 - 9.5 x10(3)/mc L [facility] Red Blood Cell 3.59(L) 4.58 - 5.54 x10(6)/mc L [facility] Hemoglobin 11.1(L) 13.7 - 16.5 g/dL [facility] Hematocrit 32.4(L) 40.5 - 48.5 % [facility] Mean Cell Volume 90.3 82.9 - 93.1 fL [facility] Mean Cell Hemoglobin 30.9 27.5 - 32.1 pg [facility] Mean Cell Hemoglobin Concentration 34.3 32.0 - 35.7 g/dL [facility] Platelet 202 145 - 357 x10(3)/mc L [facility] RDW Standard Deviation 42.5 36.0 - 45.0 fL [facility] RDW coefficient of variation 12.8 11.4 - 13.8 % [facility] Mean Platelet Volume 12.3 7.6 - 12.9 fL [facility] NRBC% auto 0.0 % [facility] NRBC Absolute 0.000 0.000 - 0.000 x10(3)/mc L [facility] Blood 01/21/2023 2:42 AM EDT 01/21/2023 2:59 AM EDT Narrative Resulting Agency Comment Spec In Lab Kyle Mckeon MD HEMATOLOGY ORDERABLE S Performing Organization Address City/[facility] [place] [address] * (ABNORMAL) Phosphorus (01/21/2023 2:42 AM EDT) Phosphorus 5.3(H) 2.5 - 4.5 mg/dL [facility] Blood 01/21/2023 2:42 AM EDT 01/21/2023 2:58 AM EDT Narrative Resulting Agency Comment Spec In Lab Tanya Seaman MD CHEMISTRY ORDERABL ES Performing Organization Address City/[facility] Co de Phone Number [facility] [address] * Magnesium (01/21/2023 2:42 AM EDT) Magnesium 0.99 0.69 - 1.07 mmol/L [facility] Blood 01/21/2023 2:42 AM EDT 01/21/2023 2:58 AM EDT Narrative Resulting Agency Comment Spec In Lab Tanya Seaman MD CHEMISTRY ORDERABL ES [facility] [place] [address] * (ABNORMAL) Basic Metabolic Panel (non-fasting) (01/21/2023 2:42 AM EDT) Glucose 120 65 - 199 mg/dL [facility] Comment:Diabetes: >=200 mg/d L plus symptoms Blood Urea Nitrogen 72(H) 10 - 20 mg/dL [facility] Creatinine 5.70(H) 0.80 - 1.50 mg/dL [facility] Sodium 140 135 - 145 mmol/L [facility] Potassium 4.2 3.5 - 5.0 mmol/L [facility] Comment: Please note: ??Patients with WBC >100,000 may have falsely elevated Potassium levels. ??For accurate Potassium quantification in these patients send serum separator tube (gold top) for subsequent determinations. ??Contact the Clinical Chemistry Laboratory if there are any questions. Chloride 100 98 - 107 mmol/L [facility] Carbon Dioxide 20(L) 22 - 31 mmol/L [facility] Anion Gap 20(H) 5 - 15 mmol/L [facility] Calcium 9.3 8.5 - 10.5 mg/dL [facility] Est Glomerular Filtration Rate 10(L) >=60 mL/min/1. 73 m?? [facility] Comment: This patient's estimated GFR was [...] MD CHEMISTRY ORDERABL ES Performing Organization Address City/[facility] Co de Phone Number [facility] [address] * POCT Glucose (01/20/2023 7:45 PM EDT) Glucose, POC 158 65 - 199 mg/dL [facility] Comment: Supplemental ranges: <140 mg/dL before meals <180 mg/dL all other times of the day Blood 01/20/2023 7:45 PM EDT 01/20/2023 7:45 PM EDT Chris Lim MD POINT OF CARE TEST O RDERAMARCY Performing Organization Address [facility] Co de Phone Number [facility] [address] * POCT Glucose (01/20/2023 4:38 PM EDT) Glucose, POC 96 65 - 199 mg/dL [facility] Comment: Supplemental ranges: <140 mg/dL before meals <180 mg/dL all other times of the day Blood 01/20/2023 4:38 PM EDT 01/20/2023 4:38 PM EDT Chris Lim MD POINT OF CARE TEST O RDERAMARCY Performing Organization Address City/[facility] Co de Phone Number [facility] [address] * POCT Glucose (01/20/2023 4:14 PM EDT) Glucose, POC 101 65 - 199 mg/dL [facility] Comment: Supplemental ranges: <140 mg/dL before meals <180 mg/dL all other times of the day Blood 01/20/2023 4:14 PM EDT 01/20/2023 4:14 PM EDT Chris Lim MD POINT OF CARE TEST O RDERABLES Performing Organization Address [facility] Co de Phone Number [facility] [place] [address] * Hepatitis C Antibody (01/20/2023 3:23 PM EDT) Hepatitis C Antibody Negative Negative [facility] Blood 01/20/2023 3:23 PM EDT 01/20/2023 3:28 PM EDT Narrative Resulting Agency Comment Spec In Lab Austin Sosa MD CHEMISTRY ORDERABLES Performing Organization Address [facility] Co de Phone Number [facility] [address] * Hepatitis B Core Antibody, Total (01/20/2023 3:23 PM EDT) Hepatitis B Core Antibody Negative Negative [facility] Blood 01/20/2023 3:23 PM EDT 01/20/2023 3:28 PM EDT Narrative Resulting Agency Comment Spec In Lab Chris Lim MD CHEMISTRY ORDERABLES Performing Organization Address [facility] de Phone Number [facility] [address] * Hepatitis B Surface Antibody (01/20/2023 3:23 PM EDT) Hepatitis B Surface Antibody, Quantitative <3.5 IU/L [facility] Comment: HepB Surface Ab Quant: Unvaccinated: < 8.5 IU/L Vaccinated: >= 11.5 IU/L Hepatitis B Surface Antibody Negative [facility] Comment: Patient is presumed to be not vaccinated or immune to HBV infection. Expected Results: Vaccinated: Positive Unvaccinated: Negative Blood 01/20/2023 3:23 PM EDT 01/20/2023 3:28 PM EDT Narrative Resulting Agency Comment Spec In Lab Chris Lim MD CHEMISTRY ORDERABLES Performing Organization Address [facility] Co de Phone Number [facility] [place] [address] * HIV Screen, 4th Generation ([facility]/CGP/APD/NLH) (01/20/2023 3:23 PM EDT) HIV Ab/Ag Screen Negative Negative [facility] Comment: This 4th Generation HIV test [...] HIV Comment Low Risk of HIV Infection [facility] Blood 01/20/2023 3:23 PM EDT 01/20/2023 3:28 PM EDT Narrative Resulting Agency Comment Spec In Lab Chris Lim MD CHEMISTRY ORDERABLES Performing Organization Address [facility] Co de Phone Number [facility] [place] [address] * (ABNORMAL) POCT Glucose (01/20/2023 11:33 AM EDT) Glucose, POC 206(H) 65 - 199 mg/dL [facility] Comment: Supplemental ranges: <140 mg/dL before meals <180 mg/dL all other times of the day Blood 01/20/2023 11:3 3 AM EDT 01/20/2023 11:33 AM EDT Chris Lim MD POINT OF CARE TEST O RDERABLES Performing Organization Address [facility] Co de Phone Number [facility] [place] [address] * POCT Glucose (01/20/2023 7:24 AM EDT) Glucose, POC 152 65 - 199 mg/dL [facility] Comment: Supplemental ranges: <140 mg/dL before meals <180 mg/dL all other times of the day Blood 01/20/2023 7:24 AM EDT 01/20/2023 7:24 AM EDT Chris Lim MD POINT OF CARE TEST O RDERABLES Performing Organization Address City/[facility]/ZIP Co de Phone Number [facility] [address] * Immunoglobulins, Quantitative (01/20/2023 3:26 AM EDT) Immunoglobulin G 880 700 - 1,600 mg/dL [facility] Comment: Pediatric Reference Intervals obtained from the [employer] Reference Interval project. http://www.Zomato.ca/caliperproject/index.html IgA 286 70 - 400 mg/dL [facility] IgM 72 40 - 230 mg/dL [facility] Blood Venous Draw / Unknown 01/20/2023 3:26 AM EDT 01/20/2023 3:44 AM EDT Narrative Resulting Agency Comment Spec In Lab Deonte Lugo MD CHEMISTRY ORDERABLE S Performing Organization Address [facility] Co de Phone Number [facility] [place] [address] * Immunofixation Electrophoresis (01/20/2023 3:26 AM EDT) Immunofixation Interpretation See Note [facility] Comment: No specific abnormality observed. Dr. Arnulfo Moore 01/23/2023 See scanned report. Blood Venous Draw / Unknown 01/20/2023 3:26 AM EDT 01/20/2023 3:44 AM EDT Narrative Resulting Agency Comment Spec In Lab Deonte Lugo MD CHEMISTRY ORDERABLE S Performing Organization Address City/[facility]/ZIP Co de Phone Number [facility] [place] [address] * Protein Electrophoresis, serum (01/20/2023 3:26 AM EDT) Total Prot Electrophoresis 6.5 6.1 - 8.0 g/dL [facility] Albumin Electrophoresis 4.11 3.20 - 5.20 g/dL [facility] Alpha 1 Globulin 0.25 0.10 - 0.30 g/dL [facility] Alpha 2 Globulin 0.75 0.40 - 0.90 g/dL [facility] Beta Globulin 0.68 0.50 - 1.00 g/dL [facility] Gamma Globulin 0.71 0.50 - 1.30 g/dL [facility] M1 Band Comments Below None Detected [facility] SPEP Comments See Note [facility] Comment: Serum protein electrophoresis (PEP) shows [...] MD CHEMISTRY ORDERABLE S Performing Organization Address City/[facility]/ZIP Co de Phone Number [facility] [place] [address] * C4 Complement (01/20/2023 3:26 AM EDT) Complement C4 31 10 - 40 mg/dL [facility] Blood Venous Draw / Unknown 01/20/2023 3:26 AM EDT 01/20/2023 3:44 AM EDT Narrative Resulting Agency Comment Spec In Lab Deonte Lugo MD CHEMISTRY ORDERABLE S Performing Organization Address City/[facility]/ZIP Co de Phone Number [facility] [address] * (ABNORMAL) Free Light Chains, Serum (01/20/2023 3:26 AM EDT) [place] Free Light Chain 8.16(H) 0.72 - 2.75 mg/dL [facility] Lambda Free Light Chain 4.53(H) 0.57 - 2.15 mg/dL [facility] [place]/Lambda FLC Ratio 1.8013 0.4000 - 2.5800 [facility] Blood Venous Draw / Unknown 01/20/2023 3:26 AM EDT 01/20/2023 3:44 AM EDT Narrative Resulting Agency Comment Spec In Lab Deonte Lugo MD CHEMISTRY ORDERABLE S Performing Organization Address City/[facility]/ZIP Co de Phone Number [facility] [address] * Differential, Automated (01/20/2023 3:26 AM EDT) Neutrophil % 75.0 % [facility] Neutrophil Absolute 6.04 1.70 - 6.10 x10(3)/[facility] Lymph % 12.2 % [facility] Lymphocytes Abs 1.0 0.9 - 3.2 x10(3)/[facility] Monocyte % 8.6 % [facility] Monocyte Abs 0.7 0.3 - 0.9 x10(3)/[facility] Eos % 3.3 % [facility] Eosinophils Abs 0.3 0.0 - 0.4 x10(3)/[facility] Basophil % 0.7 % [facility] Baso Absolute 0.1 0.0 - 0.1 x10(3)/[facility]ORY Immature Gran % 0.20 % [facility] Comment: Immature granulocytes(IG's)percentage and absolute count will include metamyelocytes, myelocytes, and promyelocytes. Blood smears from CBCs yielding IG's will be scanned manually for concordance. If this scan disagrees with the automated IG or if promyelocytes are noted, a manual differential will be performed. Immature Gran Absolute 0.02 0.00 - 0.04 x10(3)/[facility] Blood 01/20/2023 3:26 AM EDT 01/20/2023 3:42 AM EDT Narrative Resulting Agency Comment Spec In Lab Kyle Mckeon MD HEMATOLOGY ORDERABLE S [facility] [address] * (ABNORMAL) Hemogram (01/20/2023 3:26 AM EDT) White Blood Cell 8.1 4.0 - 9.5 x10(3)/mc L [facility] Red Blood Cell 3.54(L) 4.58 - 5.54 x10(6)/mc L [facility] Hemoglobin 10.8(L) 13.7 - 16.5 g/dL [facility] Hematocrit 32.5(L) 40.5 - 48.5 % [facility] Mean Cell Volume 91.8 82.9 - 93.1 fL [facility] Mean Cell Hemoglobin 30.5 27.5 - 32.1 pg [facility] Mean Cell Hemoglobin Concentration 33.2 32.0 - 35.7 g/dL [facility] Platelet 202 145 - 357 x10(3)/mc L [facility] RDW Standard Deviation 42.9 36.0 - 45.0 fL [facility] RDW coefficient of variation 12.7 11.4 - 13.8 % [facility] Mean Platelet Volume 11.6 7.6 - 12.9 fL [facility] NRBC% auto 0.0 % [facility] NRBC Absolute 0.000 0.000 - 0.000 x10(3)/mc L [facility] Blood 01/20/2023 3:26 AM EDT 01/20/2023 3:42 AM EDT Narrative Resulting Agency Comment Spec In Lab Kyle Mckeon MD HEMATOLOGY ORDERABLE S Performing Organization Address City/[facility]/ZIP Co de Phone Number [facility] [place] [address] * (ABNORMAL) Phosphorus (01/20/2023 3:26 AM EDT) Phosphorus 4.7(H) 2.5 - 4.5 mg/dL [facility] Blood 01/20/2023 3:26 AM EDT 01/20/2023 3:42 AM EDT Narrative Resulting Agency Comment Spec In Lab Tanya Seaman MD CHEMISTRY ORDERABL ES Performing Organization Address City/[facility]/ZIP Co de Phone Number [facility] [address] * Magnesium (01/20/2023 3:26 AM EDT) Magnesium 0.95 0.69 - 1.07 mmol/L [facility] Blood 01/20/2023 3:26 AM EDT 01/20/2023 3:42 AM EDT Narrative Resulting Agency Comment Spec In Lab Tanya Seaman MD CHEMISTRY ORDERABL ES Performing Organization Address [facility] de Phone Number [facility] [address] * (ABNORMAL) Basic Metabolic Panel (non-fasting) (01/20/2023 3:26 AM EDT) Glucose 109 65 - 199 mg/dL [facility] Comment:Diabetes: >=200 mg/d L plus symptoms Blood Urea Nitrogen 67(H) 10 - 20 mg/dL [facility] Creatinine 5.79(H) 0.80 - 1.50 mg/dL [facility] Sodium 139 135 - 145 mmol/L [facility] Potassium 4.5 3.5 - 5.0 mmol/L [facility] Comment: Please note: ??Patients with WBC >100,000 may have falsely elevated Potassium levels. ??For accurate Potassium quantification in these patients send serum separator tube (gold top) for subsequent determinations. ??Contact the Clinical Chemistry Laboratory if there are any questions. Chloride 102 98 - 107 mmol/L [facility] Carbon Dioxide 20(L) 22 - 31 mmol/L [facility] Anion Gap 17(H) 5 - 15 mmol/L [facility] Calcium 8.8 8.5 - 10.5 mg/dL [facility] Est Glomerular Filtration Rate 10(L) >=60 mL/min/1. 73 m?? [facility] Comment: This patient's estimated GFR [...] MD CHEMISTRY ORDERABL ES Performing Organization Address [facility] Co de Phone Number [facility] [address] * (ABNORMAL) Ferritin (01/20/2023 3:26 AM EDT) Ferritin 478(H) 30 - 400 ng/mL [facility] Comment: Pediatric reference ranges not verified at [facility], interpret with caution. Reference ranges for females greater than 50 years of age approach values for men, i.e., 30-400 ng/mL. Blood 01/20/2023 3:26 AM EDT 01/20/2023 3:42 AM EDT Narrative Resulting Agency Comment Spec In Lab Sixto Morrow MD CHEMISTRY ORDERABLES Performing Organization Address [facility] Co de Phone Number [facility] [address] * (ABNORMAL) Iron and TIBC (01/20/2023 3:26 AM EDT) Iron 68 45 - 160 mcg/dL [facility] TIBC 229(L) 250 - 450 mcg/dL [facility] Iron Saturation 30 20 - 50 % [facility] Blood 01/20/2023 3:26 AM EDT 01/20/2023 3:42 AM EDT Narrative Resulting Agency Comment Spec In Lab Sixto Morrow MD CHEMISTRY ORDERABLES Performing Organization Address City/[facility]/ZIP Co de Phone Number [facility] [address] * (ABNORMAL) PTH (01/20/2023 3:26 AM EDT) Parathyroid Hormone 401(H) 15 - 65 pg/mL [facility] Blood 01/20/2023 3:26 AM EDT 01/20/2023 3:42 AM EDT Narrative Resulting Agency Comment Spec In Lab Sixto Morrow MD CHEMISTRY ORDERABLES Performing Organization Address [facility] Co de Phone Number [facility] [address] * (ABNORMAL) Vitamin D, 25-Hydroxy (01/20/2023 3:26 AM EDT) Vitamin D Total 25 OH 9(L) 21 - 100 ng/mL [facility] Vit D Interp Deficient [facility] Blood 01/20/2023 3:26 AM EDT 01/20/2023 3:42 AM EDT Narrative Resulting Agency Comment Spec In Lab Sixto Morrow MD CHEMISTRY ORDERABLES Performing Organization Address [facility] Co de Phone Number [facility] [address] * POCT Glucose (01/19/2023 9:33 PM EDT) Glucose, POC 112 65 - 199 mg/dL [facility] Comment: Supplemental ranges: <140 mg/dL before meals <180 mg/dL all other times of the day Blood 01/19/2023 9:33 PM EDT 01/19/2023 9:33 PM EDT Chris Lim MD POINT OF CARE TEST O RDERABLES Performing Organization Address [facility]/ZIP Co de Phone Number [facility] [address] * POCT Glucose (01/19/2023 4:37 PM EDT) Glucose, POC 175 65 - 199 mg/dL [facility] Comment: Supplemental ranges: <140 mg/dL before meals <180 mg/dL all other times of the day Blood 01/19/2023 4:37 PM EDT 01/19/2023 4:37 PM EDT Chris Lim MD POINT OF CARE TEST O RDERABLES [facility] [place] [address] * (ABNORMAL) Basic Metabolic Panel (non-fasting) (01/19/2023 2:15 PM EDT) Glucose 206(H) 65 - 199 mg/dL [facility] Comment:Diabetes: >=200 mg/d L plus symptoms Blood Urea Nitrogen 59(H) 10 - 20 mg/dL [facility] Creatinine 5.69(H) 0.80 - 1.50 mg/dL [facility] Sodium 140 135 - 145 mmol/L [facility] Potassium 4.4 3.5 - 5.0 mmol/L [facility] Comment: Please note: ??Patients with WBC >100,000 may have falsely elevated Potassium levels. ??For accurate Potassium quantification in these patients send serum separator tube (gold top) for subsequent determinations. ??Contact the Clinical Chemistry Laboratory if there are any questions. Chloride 102 98 - 107 mmol/L [facility] Carbon Dioxide 22 22 - 31 mmol/L [facility] Anion Gap 16(H) 5 - 15 mmol/L [facility] Calcium 9.3 8.5 - 10.5 mg/dL [facility] Est Glomerular Filtration Rate 10(L) >=60 mL/min/1. 73 m?? [facility] Comment: This patient's estimated GFR was [...] Narrative Resulting Agency Comment Spec In Lab aTnya Seaman MD CHEMISTRY ORDERABL ES Performing Organization Address [facility]/ZIP Co de Phone Number [facility] [address] * POCT Glucose (01/19/2023 11:31 AM EDT) Glucose, POC 96 65 - 199 mg/dL [facility] Comment: Supplemental ranges: <140 mg/dL before meals <180 mg/dL all other times of the day Blood 01/19/2023 11:3 1 AM EDT 01/19/2023 11:31 AM EDT Chris Lim MD POINT OF CARE TEST O RDERABLES Performing Organization Address [facility]/ZIP Co de Phone Number [facility] [address] * (ABNORMAL) Basic Metabolic Panel (non-fasting) (01/19/2023 10:29 AM EDT) Glucose 87 65 - 199 mg/dL [facility] Comment:Diabetes: >=200 mg/d L plus symptoms Blood Urea Nitrogen 60(H) 10 - 20 mg/dL [facility] Creatinine 5.63(H) 0.80 - 1.50 mg/dL [facility] Sodium 143 135 - 145 mmol/L [facility] Potassium 4.4 3.5 - 5.0 mmol/L [facility] Comment: Please note: ??Patients with WBC >100,000 may have falsely elevated Potassium levels. ??For accurate Potassium quantification in these patients send serum separator tube (gold top) for subsequent determinations. ??Contact the Clinical Chemistry Laboratory if there are any questions. Chloride 107 98 - 107 mmol/L [facility] Carbon Dioxide 21(L) 22 - 31 mmol/L [facility] Anion Gap 15 5 - 15 mmol/L [facility] Calcium 9.1 8.5 - 10.5 mg/dL [facility] Est Glomerular Filtration Rate 10(L) >=60 mL/min/1. 73 m?? [facility] Comment: This patient's estimated GFR was [...] Lab Tanya Seaman MD CHEMISTRY ORDERABL ES [facility] [place] [address] * ECHO COMPLETE W CONTRAST (01/19/2023 8:59 AM EDT) Anatomical Region Laterality Modality Cardiac Other 01/19/2023 6:52 AM EDT Narrative 01/19/2023 11:43 AM EDT ? Echocardiogram Report Name: MIGUEL SANCHEZ ? Study Date: 01/19/2023 06:52 AMBP: 142/82 mmHg ? Patient Location: [id number] A : 1955 ? Height: 165 cm ? Account: [id number] Age: 67 yrs ? Weight: 110 kg Gender: Male ?BSA: 2.1 m2 Ordering Physician: TANYA SEAMAN Referring Physician: ELHAM DYKES Performed By: Cathleen Ware RDCS Reason For Study: Heart failure Interpreting Fellow: Martin Reyes. Exam Location: [facility]. Interpretation Summary Left ventricle is mildly [...] ventricular systolic function has further decreased. Procedure Complete-[id number]. Satisfactory quality. Left Ventricle Left ventricle is [...] Date: 306:52 AMBP: 142/82 mmHg Patient Location: [id number] A : 1955 Height: 165 cm Account: [id number] Age: 67 yrs Weight: 110 kg Gender: Male BSA: 2.1 m2 Ordering Physician: TANYA SEAMAN Referring Physician: ELHAM DYKES Performed By: Cathleen Ware RDCS Reason For Study: Heart failure Interpreting Fellow: Martin Reyes. Exam Location: [facility]. Interpretation Summary Left ventricle is mildly [...] left ventricular systolicfunction has further decreased. Procedure Complete-[id number]. Satisfactory quality. Left Ventricle Left ventricle is [...] who have questions, please contact the health senior resident care director that requested your imaging first. ?Jimmie العراقي, Staff Physician Electronically Signed Final Report ?? 01/19/2023 08:47 am Narrative 01/19/2023 8:47 AM EDT Renal ? (Signed Final 01/19/2023 08:47 am) PATIENT INFO: ID #: ? [id number] ?: ??[birth year] (67 yrs)(M) Name: ? MIGUEL SANCHEZ ? Visit Date: 01/19/2023 08:27 am PERFORMED BY: Attending: ?Jimmie العراقي MD. Performed By: ? FaridaKary alcaraz RDMS Referred By: ?TANYA QUEZADAMICHELLE Location: ? [facility] SERVICE(S) PROVIDED: URETRO - Retroperitoneal Complete - [id number] ? [id number] INDICATIONS: New CLEM of unclear etiology RIGHT [...] 01/19/2023 08:47 am) PATIENT INFO: ID #: [id number] : [birth year] (67 yrs)(M) Name: MIGUEL SANCHEZ Visit Date: 01/19/2023 08:27 am PERFORMED BY: Attending: Jimmie العراقي MD Performed By: Kary Iqbal RDMS Referred By: TANYA QUEZADAMICHELLE Location: [facility] SERVICE(S) PROVIDED: URETRO - Retroperitoneal Complete - [id number] INDICATIONS: New CLEM of unclear etiology RIGHT [...] who have questions, please contact the health senior resident care director that requested your imaging first. Jimmie العراقي, Staff Physician Electronically Signed Final Report 01/19/2023 08:47 am Tanya Seaman MD IMG US GEN ORDERAB LES * POCT Glucose (01/19/2023 8:00 AM EDT) Glucose, POC 92 65 - 199 mg/dL [facility] Comment: Supplemental ranges: <140 mg/dL before meals <180 mg/dL all other times of the day Blood 01/19/2023 8:00 AM EDT 01/19/2023 8:00 AM EDT Tanya Seaman MD POINT OF CARE TEST ORDERABLES Performing Organization Address City/[facility]/ZIP Co de Phone Number [facility] [address] * POCT Glucose (01/19/2023 7:42 AM EDT) Glucose, POC 87 65 - 199 mg/dL [facility] Comment: Supplemental ranges: <140 mg/dL before meals <180 mg/dL all other times of the day Blood 01/19/2023 7:42 AM EDT 01/19/2023 7:42 AM EDT Tanya Seaman MD POINT OF CARE TEST ORDERABLES [facility] [address] * (ABNORMAL) Basic Metabolic Panel (non-fasting) (01/19/2023 6:21 AM EDT) Glucose 80 65 - 199 mg/dL [facility] Comment:Diabetes: >=200 mg/d L plus symptoms Blood Urea Nitrogen 58(H) 10 - 20 mg/dL [facility] Creatinine 5.52(H) 0.80 - 1.50 mg/dL [facility] Sodium 143 135 - 145 mmol/L [facility] Potassium 4.3 3.5 - 5.0 mmol/L [facility] Comment: Please note: ??Patients with WBC >100,000 may have falsely elevated Potassium levels. ??For accurate Potassium quantification in these patients send serum separator tube (gold top) for subsequent determinations. ??Contact the Clinical Chemistry Laboratory if there are any questions. Chloride 107 98 - 107 mmol/L [facility] Carbon Dioxide 21(L) 22 - 31 mmol/L [facility] Anion Gap 15 5 - 15 mmol/L [facility] Calcium 8.9 8.5 - 10.5 mg/dL [facility] Est Glomerular Filtration Rate 11(L) >=60 mL/min/1. 73 m?? [facility] Comment: This patient's estimated GFR was [...] MD CHEMISTRY ORDERABL ES Performing Organization Address City/[facility]/ZIP Co de Phone Number [facility] [address] * CK (01/19/2023 1:50 AM EDT) Creatine Kinase 70 0 - 200 unit/L [facility] Blood Venous Draw / Unknown 01/19/2023 1:50 AM EDT 01/19/2023 1:55 AM EDT Narrative Resulting Agency Comment Spec In Lab Kyle Mckeon MD CHEMISTRY ORDERABLES Performing Organization Address City/[facility]/ZIP Co de Phone Number [facility] [place] [address] * Differential, Automated (01/19/2023 1:50 AM EDT) Neutrophil % 73.8 % [facility] Neutrophil Absolute 5.75 1.70 - 6.10 x10(3)/[facility] Lymph % 13.8 % [facility] Lymphocytes Abs 1.1 0.9 - 3.2 x10(3)/[facility] Monocyte % 8.5 % [facility] Monocyte Abs 0.7 0.3 - 0.9 x10(3)/[facility] LAB[facility] Eos % 3.0 % [facility] Eosinophils Abs 0.2 0.0 - 0.4 x10(3)/[facility] Basophil % 0.6 % [facility] Baso Absolute 0.0 0.0 - 0.1 x10(3)/[facility]ORY Immature Gran % 0.30 % [facility] Comment: Immature granulocytes(IG's)percentage and absolute count will include metamyelocytes, myelocytes, and promyelocytes. Blood smears from CBCs yielding IG's will be scanned manually for concordance. If this scan disagrees with the automated IG or if promyelocytes are noted, a manual differential will be performed. Immature Gran Absolute 0.02 0.00 - 0.04 x10(3)/[facility] Blood 01/19/2023 1:50 AM EDT 01/19/2023 1:54 AM EDT Narrative Resulting Agency Comment Spec In Lab Kyle Mckeon MD HEMATOLOGY ORDERABLE S [facility] [place] [address] * (ABNORMAL) Hemogram (01/19/2023 1:50 AM EDT) [facility] White Blood Cell 7.8 4.0 - 9.5 x10(3)/mc L [facility] Red Blood Cell 3.25(L) 4.58 - 5.54 x10(6)/mc L [facility] Hemoglobin 10.1(L) 13.7 - 16.5 g/dL [facility] Hematocrit 30.3(L) 40.5 - 48.5 % [facility] Mean Cell Volume 93.2(H) 82.9 - 93.1 fL [facility] Mean Cell Hemoglobin 31.1 27.5 - 32.1 pg [facility] Mean Cell Hemoglobin Concentration 33.3 32.0 - 35.7 g/dL [facility] Platelet 173 145 - 357 x10(3)/mc L [facility] RDW Standard Deviation 44.6 36.0 - 45.0 fL [facility] RDW coefficient of variation 13.0 11.4 - 13.8 % [facility] Mean Platelet Volume 11.5 7.6 - 12.9 fL [facility] NRBC% auto 0.0 % [facility] NRBC Absolute 0.000 0.000 - 0.000 x10(3)/mc L [facility] Blood 01/19/2023 1:50 AM EDT 01/19/2023 1:54 AM EDT Narrative Resulting Agency Comment Spec In Lab Kyle Mckeon MD HEMATOLOGY ORDERABLE S Performing Organization Address [facility] [place] [place] [address] * Phosphorus (01/19/2023 1:50 AM EDT) Phosphorus 4.3 2.5 - 4.5 mg/dL [facility] Blood 01/19/2023 1:50 AM EDT 01/19/2023 1:54 AM EDT Narrative Resulting Agency Comment Spec In Lab Tanya Seaman MD CHEMISTRY ORDERABL ES Performing Organization Address [facility] Co de Phone Number [facility] [facility] [place] [address] * Magnesium (01/19/2023 1:50 AM EDT) Magnesium 0.80 0.69 - 1.07 mmol/L [facility] Blood 01/19/2023 1:50 AM EDT 01/19/2023 1:54 AM EDT Narrative Resulting Agency Comment Spec In Lab Tanya Seaman MD CHEMISTRY ORDERABL ES [facility] [place] [address] * (ABNORMAL) Basic Metabolic Panel (non-fasting) (01/19/2023 1:50 AM EDT) Glucose 78 65 - 199 mg/dL [facility] Comment:Diabetes: >=200 mg/d L plus symptoms Blood Urea Nitrogen 54(H) 10 - 20 mg/dL [facility] Creatinine 5.50(H) 0.80 - 1.50 mg/dL [facility] Sodium 143 135 - 145 mmol/L [facility] Potassium 4.3 3.5 - 5.0 mmol/L [facility] Comment: Please note: ??Patients with WBC >100,000 may have falsely elevated Potassium levels. ??For accurate Potassium quantification in these patients send serum separator tube (gold top) for subsequent determinations. ??Contact the Clinical Chemistry Laboratory if there are any questions. Chloride 107 98 - 107 mmol/L [facility] Carbon Dioxide 22 22 - 31 mmol/L [facility] Anion Gap 14 5 - 15 mmol/L [facility] Calcium 8.9 8.5 - 10.5 mg/dL [facility] Est Glomerular Filtration Rate 11(L) >=60 mL/min/1. 73 m?? [facility] Comment: This patient's estimated GFR was [...] MD CHEMISTRY ORDERABL ES Performing Organization Address City/[facility]/ZIP Co de Phone Number [facility] [address] * POCT Glucose (01/19/2023 1:46 AM EDT) Glucose, POC 75 65 - 199 mg/dL [facility] Comment: Supplemental ranges: <140 mg/dL before meals <180 mg/dL all other times of the day Blood 01/19/2023 1:46 AM EDT 01/19/2023 1:46 AM EDT Tanya Seaman MD POINT OF CARE TEST ORDERABLES Performing Organization Address [facility] Co de Phone Number [facility] [address] * (ABNORMAL) Blood Gas Venous ([facility]) (01/18/2023 10:20 PM EDT) pH, Venous 7.37 7.32 - 7.42 [facility] PCO2, Venous 38(L) 41 - 51 mmHg [facility] PO2, Venous 30 25 - 40 mmHg [facility] Bicarbonate, Venous 21.7 mmol/L [facility] Base Excess, Venous -3.7 mmol/L [facility] Hgb Blood Gas Not Perf 13.7 - 16.5 g/dL [facility] Oxyhemoglobin, Venous Not Perf % [facility] Carboxyhemoglob in, Venous Not Perf % [facility] Comment: Nonsmokers: 0.5-1.5% COHB Smokers: Variable, but usually less than 10% Toxic: 20-30% COHB Lethal: Greater than 60% COHB Methemoglobin, Venous Not Perf <=1.5 % [facility] Na Whole Blood 140 135 - 145 mmol/L [facility] K Whole Blood 4.5 3.5 - 5.0 mmol/L [facility] Comment: Please note: Patients with WBC >100,000 may have falsely elevated Potassium levels. Contact the Clinical Chemistry Laboratory if there are any questions. ICa Whole Blood 1.14(L) 1.15 - 1.33 mmol/L [facility] Comment: Note: ??Total bilirubin higher than 20 mg/dL may lead to falsely low ionized calcium. CL Whole Blood 109(H) 98 - 107 mmol/L [facility] Gluc Whole Bld 73 65 - 199 mg/dL [facility] Comment:Diabetes: >=200 mg/d L plus symptoms Lactate WB 1.3 0.5 - 2.2 mmol/L [facility] Blood Gas Source Venous [facility] Blood Venous Draw / Unknown 01/18/2023 10:20 PM EDT 01/18/2023 10:26 PM EDT Narrative Resulting Agency Comment Spec In Lab Kyle Mckeon MD CHEMISTRY ORDERABLES [facility] [place] [address] * (ABNORMAL) Basic Metabolic Panel (non-fasting) (01/18/2023 10:16 PM EDT) Glucose 74 65 - 199 mg/dL [facility] Comment:Diabetes: >=200 mg/d L plus symptoms Blood Urea Nitrogen 60(H) 10 - 20 mg/dL [facility] Creatinine 5.81(H) 0.80 - 1.50 mg/dL [facility] Sodium 145 135 - 145 mmol/L [facility] Potassium 4.8 3.5 - 5.0 mmol/L [facility] Comment: Please note: ??Patients with WBC >100,000 may have falsely elevated Potassium levels. ??For accurate Potassium quantification in these patients send serum separator tube (gold top) for subsequent determinations. ??Contact the Clinical Chemistry Laboratory if there are any questions. Chloride 109(H) 98 - 107 mmol/L [facility] Carbon Dioxide Not Perf 22 - [facility] Comment:Add-on request. Samp le too old to perform test. Anion Gap Unable to Calculate 5 - 15 mmol/L [facility] Calcium 9.2 8.5 - 10.5 mg/dL [facility] Est Glomerular Filtration Rate 10(L) >=60 mL/min/1 .73 m?? [facility] Comment: This patient's estimated GFR [...] In Lab Kyle Mckeon MD CHEMISTRY ORDERABLES [facility] [address] * (ABNORMAL) Differential, Automated (01/18/2023 10:16 PM EDT) Neutrophil % 78.0 % [facility] Neutrophil Absolute 5.41 1.70 - 6.10 x10(3)/mc L [facility] Lymph % 11.5 % [facility] Lymphocytes Abs 0.8(L) 0.9 - 3.2 x10(3)/mc L [facility] Monocyte % 6.6 % [facility] Monocyte Abs 0.5 0.3 - 0.9 x10(3)/mc L [facility] Eos % 3.0 % [facility] Eosinophils Abs 0.2 0.0 - 0.4 x10(3)/mc L [facility] Basophil % 0.6 % [facility] Baso Absolute 0.0 0.0 - 0.1 x10(3)/mc L [facility] Immature Gran % 0.30 % [facility] Comment: Immature granulocytes(IG's)percentage and absolute count will include metamyelocytes, myelocytes, and promyelocytes. Blood smears from CBCs yielding IG's will be scanned manually for concordance. If this scan disagrees with the automated IG or if promyelocytes are noted, a manual differential will be performed. Immature Gran Absolute 0.02 0.00 - 0.04 x10(3)/mc L [facility] Blood 01/18/2023 10:1 6 PM EDT 01/18/2023 10:27 PM EDT Narrative Resulting Agency Comment Spec In Lab Kyle Mckeon MD HEMATOLOGY ORDERABLE S Performing Organization Address City/[facility]/ZIP Co de Phone Number [facility] [address] * (ABNORMAL) Hemogram (01/18/2023 10:16 PM EDT) White Blood Cell 6.9 4.0 - 9.5 x10(3)/mc L [facility] Red Blood Cell 3.30(L) 4.58 - 5.54 x10(6)/mc L [facility] Hemoglobin 10.1(L) 13.7 - 16.5 g/dL [facility] Hematocrit 31.0(L) 40.5 - 48.5 % [facility] Mean Cell Volume 93.9(H) 82.9 - 93.1 fL [facility] Mean Cell Hemoglobin 30.6 27.5 - 32.1 pg [facility] Mean Cell Hemoglobin Concentration 32.6 32.0 - 35.7 g/dL [facility] Platelet 196 145 - 357 x10(3)/mc L [facility] RDW Standard Deviation 44.9 36.0 - 45.0 fL [facility] RDW coefficient of variation 13.1 11.4 - 13.8 % [facility] Mean Platelet Volume 11.4 7.6 - 12.9 fL [facility] NRBC% auto 0.0 % [facility] NRBC Absolute 0.000 0.000 - 0.000 x10(3)/mc L [facility] Blood 01/18/2023 10:1 6 PM EDT 01/18/2023 10:27 PM EDT Narrative Resulting Agency Comment Spec In Lab Kyle Mckeon MD HEMATOLOGY ORDERABLE S Performing Organization Address City/[facility]/ZIP Co de Phone Number [facility] [address] * Salicylate (01/18/2023 10:16 PM EDT) Salicylate 3 mg/L [facility] Comment: Therapeutic Range: ??< 200 mg/L Arthritic Therapy: ??150-300 mg/L Toxic: ?> 350 mg/L ??Concentrations > 500 mg/L may be an indication for alkalinization of urine. Concentrations > 800 mg/L are often an indication for hemodialysis. Blood 01/18/2023 10:1 6 PM EDT 01/18/2023 10:27 PM EDT Narrative Resulting Agency Comment Spec In Lab Tanya Seaman MD CHEMISTRY ORDERABL ES Performing Organization Address [facility] de Phone Number [facility] [address] * (ABNORMAL) Acetaminophen level (01/18/2023 10:16 PM EDT) Acetamin Lvl <5(L) 5 - 30 mg/L [facility] Comment: Levels >150 mg/L at 4 hours post ingestion are often an indication for N-Acetylcysteine. Blood 01/18/2023 10:1 6 PM EDT 01/18/2023 10:27 PM EDT Narrative Resulting Agency Comment Spec In Lab Tanya Seaman MD CHEMISTRY ORDERABL ES Performing Organization Address [facility] Co de Phone Number [facility] [address] * Phosphorus (01/18/2023 10:16 PM EDT) Phosphorus 4.2 2.5 - 4.5 mg/dL [facility] Blood 01/18/2023 10:1 6 PM EDT 01/18/2023 10:27 PM EDT Narrative Resulting Agency Comment Spec In Lab Tanya Seaman MD CHEMISTRY ORDERABL ES Performing Organization Address [facility] Co de Phone Number [facility] [address] * Magnesium (01/18/2023 10:16 PM EDT) Magnesium 0.87 0.69 - 1.07 mmol/L [facility] Blood 01/18/2023 10:1 6 PM EDT 01/18/2023 10:27 PM EDT Narrative Resulting Agency Comment Spec In Lab Tanya Seaman MD CHEMISTRY ORDERABL ES Performing Organization Address [facility] Co de Phone Number [facility] [address] * APTT (01/18/2023 10:16 PM EDT) Partial Thromboplastin Time 35 25 - 37 sec [facility] Comment: The PTT is NOT appropriate for heparin monitoring. Use the Anti-Xa level for heparin monitoring (HEP UFH) or LMWH monitoring (HEP LMW). A PTT less than 37 seconds generally indicates adequate hemostasis. Blood 01/18/2023 10:1 6 PM EDT 01/18/2023 10:27 PM EDT Narrative Resulting Agency Comment Spec In Lab Tanya Seaman MD HEMATOLOGY ORDERAB LES Performing Organization Address [facility] Co de Phone Number [facility] [address] * (ABNORMAL) Prothrombin Time (01/18/2023 10:16 PM EDT) Prothrombin Time 14.3(H) 9.4 - 12.5 sec [facility] International Normalization Ratio 1.3 [facility] Comment: An INR <2.0 indicates [...] Lab Tanya Seaman MD HEMATOLOGY ORDERAB LES [facility] [address] * (ABNORMAL) Hemoglobin A1c (01/18/2023 10:16 PM EDT) Hemoglobin A1c 5.7(H) 4.3 - 5.6 % [facility] Comment: Reference Range: 4.3 - 5.6% [...] Diabetes Care 2013; 36: Suppl. 1, S67-23 Estimated Average Glucose 117 mg/dL [facility] Comment: eAG equivalents for HbA1c percentages: [...] into estimated average glucose values. ??Diabetes Care 2008:31(8):5865-9683. Blood 01/18/2023 10:1 6 PM EDT 01/18/2023 10:27 PM EDT Narrative Resulting Agency Comment Spec In Lab Tanya Seaman MD CHEMISTRY ORDERABL ES Performing Organization Address [facility] Co de Phone Number [facility] [address] * TSH [place] (01/18/2023 10:16 PM EDT) Thyroid Stimulating Hormone 2.03 0.27 - 4.20 mcIU/mL [facility] Comment: Reference Interval (mcIU/mL): Females: ??First Trimester: 0.23-3.88 ??Second Trimester: 0.22-3.90 ??Third Trimester: 0.44-4.66 Blood 01/18/2023 10:1 6 PM EDT 01/18/2023 10:27 PM EDT Narrative Resulting Agency Comment Spec In Lab Tanya Seaman MD CHEMISTRY ORDERABL ES Performing Organization Address [facility] Phone Number [facility] [address] * LDL Cholesterol, Direct (01/18/2023 10:16 PM EDT) LDL Cholesterol, Direct 65 mg/dL [facility] Comment: Lowest Risk: <100 mg/dL Lower Risk: 100-129 mg/dL Borderline High Risk: 130-159 mg/dL High Risk: 160-189 mg/dL Very High Risk: >yg=414 mg/dL Blood 01/18/2023 10:1 6 PM EDT 01/18/2023 10:27 PM EDT Narrative Resulting Agency Comment Spec In Lab Tanya Seaman MD CHEMISTRY ORDERABL ES Performing Organization Address [facility] Co de Phone Number [facility] [address] * HDL/Cholesterol Profile (01/18/2023 10:16 PM EDT) Cholesterol, Total 122 mg/dL [facility] Comment: Lower Risk: <200 mg/dL Average Risk: 200-239 mg/dL Higher Risk: >bt=296 mg/dL HDL Cholesterol 27 mg/dL [facility] Comment: Males: ?? Higher Risk: <40 mg/dL Females: ?? Higher Risk: <50 mg/dL Cholesterol/HDL Ratio 4.5 ratio [facility] Chol/HDL Interpretation See Note [facility] Comment: Lipid management should be guided by a patient? s ASCVD risk, goals and preferences. ACC/AHA Guidelines recommend high intensity statin if clinical ASCVD or LDL greater than or equal to 190 mg/dL. http://Last Guide.Autoniq/WHR-UYH-Arfncypaa Measure LDL if Total Cholesterol minus HDL Cholesterol is greater than 220 mg/dL. Adults aged 40-75 with LDL 70-189 mg/dL should have their 10 year ASCVD risk estimated with the ACC/AHA ASCVD risk commercial roofing estimator http://tools.acc.org/CLPGY-Phdv-Vrcnpskov/ Statin should be discussed if risk greater [...] Lab Tanya Seaman MD CHEMISTRY ORDERABL ES [facility] [place] [address] * (ABNORMAL) Troponin (01/18/2023 10:16 PM EDT) Troponin-T, High Sensitivity 78(H) <=22 ng/L [facility] Comment: This patient's troponin T concentration [...] value can be found in the [facility] Test Catalog Troponin - [facility] Test Catalog Reference: Fourth [place] Definition of Myocardial Infarction. Journal of the [place] College [employer] 2018;72:9127-4923 Blood 01/18/2023 10:1 6 PM EDT 01/18/2023 10:27 PM EDT Narrative Resulting Agency Comment Spec In Lab Tanya Seaman MD CHEMISTRY ORDERABL ES Performing Organization Address City/[facility] [place] [place] [address] * (ABNORMAL) Protein/Creatinine Ratio, urine (01/18/2023 10:13 PM EDT) Creatinine, Urine 41 mg/dL [facility] Protein, Urine 200(H) 0 - 12 mg/dL [facility] Protein / Creatinine Ratio, Urine 4.9 ratio [facility] Urine Urine / Unknown 01/18/2023 1 0:13 PM EDT 01/18/2023 10:29 PM EDT Narrative Resulting Agency Comment Spec In Lab Deonte Lugo MD URINE ORDERABLES Performing Organization Address City/[facility]/[place] [address] * Urine culture (01/18/2023 10:13 PM EDT) Urine Culture No growth (Less than 1,000 cfu/ml). [facility] Indwelling Catheter Urine 01/18/2023 10:13 PM EDT 01/18/2023 11:08 PM EDT Narrative Resulting Agency Comment Spec In Lab Kyle Mckeon MD MICROBIOLOGY - GENER AL ORDERABLES Performing Organization Address City/[facility]/ZIP Co de Phone Number [facility] [address] * (ABNORMAL) Urinalysis Microscopic Exam (01/18/2023 10:13 PM EDT) RBC, Urine >100(H) 0 - 3 /HPF [facility] WBC, Urine 10(H) 0 - 3 /HPF [facility] Squamous Epithelial Cells Raw Data, Urine 5(H) <=4 /HPF [facility] Hyaline Casts, Urine 2 0 - 2 /LPF [facility] Indwelling Catheter Urine 01/18/2023 10:13 PM EDT 01/18/2023 10:22 PM EDT Narrative Resulting Agency Comment Spec In Lab Kyle Mckeon MD URINE ORDERABLES Performing Organization Address [facility] Co de Phone Number [facility] [address] * Rapid Drug Screen w/ Confirmation, Urine (01/18/2023 10:13 PM EDT) Barbiturates Screen, Urine None Detected None Detected [facility] Comment: The barbiturate screen detects barbiturates at concentrations >200 ng/mL. Note: Not all barbiturates cross-react equally with antibody used in this screen. A ? Presumptive Positive? result indicates that the screening result was positive but has not yet been confirmed by a highly-specific method. As with any screen, occasional false positive results from cross-reacting substances may occur. Not for Medico-Legal Purposes. Benzodiazepines Screen, Urine None Detected None Detected [facility] Comment: The benzodiazepines screen detects [...] substances may occur. Not for Medico-Legal Purposes. Cocaine Screen, Urine None Detected None Detected [facility] Comment: The cocaine metabolites screen detects benzoylecgonine (Cocaine Metabolite) at concentrations >150 ng/mL. A ? Presumptive Positive? result indicates that the screening result was positive but has not yet been confirmed by a highly-specific method. As with any screen, occasional false positive results from cross-reacting substances may occur. Not for Medico-Legal Purposes. Methadone Metabolites Screen, Urine None Detected None Detected [facility] Comment: The methadone metabolite screen detects EDDP (major methadone metabolite) at concentrations >100 ng/mL. A ? Presumptive Positive? result indicates that the screening result was positive but has not yet been confirmed by a highly-specific method. As with any screen, occasional false positive results from cross-reacting substances may occur. Not for Medico-Legal Purposes. Opiate Screen, Urine None Detected None Detected [facility] Comment: The opiates screen detects opiates [...] substances may occur. Not for Medico-Legal Purposes. Cannabinoid Screen, Urine None Detected None Detected [facility] Comment: The marijuana metabolites screen detects the THC metabolite (23-ekg-2-carboxy-delta 9-THC) at concentrations >20 ng/mL. A ? Presumptive Positive? result indicates that the screening result was positive but has not yet been confirmed by a highly-specific method. As with any screen, occasional false positive results from cross-reacting substances may occur. Not for Medico-Legal Purposes. Oxycodone Screen, Urine None Detected None Detected [facility] Comment: The oxycodone screen detects oxycodone and oxymorphone at concentrations >100 ng/mL. A ? Presumptive Positive? result indicates that the screening result was positive but has not yet been confirmed by a highly-specific method. As with any screen, occasional false positive results from cross-reacting substances may occur. Not for Medico-Legal Purposes. Buprenorphine Screen, Urine None Detected None Detected [facility] Comment: The buprenorphine screen detects buprenorphine [...] characteristics of this test were determined by [facility] in accordance with CLIA requirements. This laboratory is qualified under CLIA to perform high-complexity testing. Fentanyl Screen, Urine None Detected None Detected [facility] Comment: The fentanyl screen detects fentanyl [...] of this test were determined by [facility] in accordance with CLIA requirements. This laboratory is qualified under CLIA to perform high-complexity testing. Tricyclics Screen, Urine None Detected None Detected [facility] Comment: The tricyclics screen detects tricyclic [...] characteristics of this test were determined by [facility] in accordance with CLIA requirements. This laboratory is qualified under CLIA to perform high-complexity testing. Ethanol Screen, Urine None Detected None Detected [facility] Comment:This urine ethanol a ssay detects ethanol at concentrations >/= 100 mg/L. Amphetamines Screen, Urine None Detected None Detected [facility] Comment: The amphetamine screen detects d-amphetamine and d-methamphetamine at concentrations >300 ng/mL. A ? Presumptive Positive? result indicates that the screening result was positive but has not yet been confirmed by a highly-specific method. As with any screen, occasional false positive results from cross-reacting substances may occur. Not for Medico-Legal Purposes. Creatinine Specimen Validity Test, Urine 42 >=20 mg/dL [facility] Chromate Specimen Validity Test, Urine <2.0 <=49.9 mg/L [facility] Nitrite Specimen Validity Test, Urine <50 <=499 mg/L [facility] Oxidant Specimen Validity Test, Urine 6 <=199 mg/L [facility] pH Specimen Validity Test, Urine 6.0 3.0 - 10.9 [facility] Adulterants Screen, Urine None Detected None Detected [facility] Comment:No adulteration of t his urine sample was detected. Urine 01/18/2023 10:1 3 PM EDT 01/18/2023 10:22 PM EDT Narrative Resulting Agency Comment Spec In Lab Kyle Mckeon MD CHEMISTRY ORDERABLES Performing Organization Address [facility]/ZIP Co de Phone Number [facility] [facility] [place] [address] * Rapid Drug Screen, Urine (HEATHER Request) (01/18/2023 10:13 PM EDT) HEATHER Conf Requested Yes [facility] HEATHER Requested See Comment [facility] Comment:Refer to Rapid Drug Screen w/ Confirmation, Urine for results. Urine 01/18/2023 10:1 3 PM EDT 01/18/2023 10:22 PM EDT Narrative Resulting Agency Comment Spec In Lab Tanya Seaman MD URINE ORDERABLES Performing Organization Address City/[facility]/ZIP Co de Phone Number [facility] [address] * Creatinine, urine, random (01/18/2023 10:13 PM EDT) Creatinine, Urine 41 mg/dL [facility] Urine 01/18/2023 10:1 3 PM EDT 01/18/2023 10:22 PM EDT Narrative Resulting Agency Comment Spec In Lab Tanya Seaman MD URINE ORDERABLES Performing Organization Address [facility]/ZIP Co de Phone Number [facility] [address] * Urea nitrogen, urine, random (01/18/2023 10:13 PM EDT) Urea Nitrogen, Urine 251 mg/dL [facility] Urine 01/18/2023 10:1 3 PM EDT 01/18/2023 10:22 PM EDT Narrative Resulting Agency Comment Spec In Lab Tanya Seaman MD URINE ORDERABLES Performing Organization Address [facility] de Phone Number [facility] [address] * (ABNORMAL) Urinalysis with reflex Culture (01/18/2023 10:13 PM EDT) Glucose, Urine Dipstick Negative Negative mg/dL [facility] Protein, Urine Dipstick >=300(A) Negative mg/dL [facility] Bilirubin, Urine Dipstick Negative Negative mg/dL [facility] Comment: Clinical correlation required for positive Urine Bilirubin results as false positive may occur with some drugs and drug related products. If a false positive is suspected a serum total bilirubin should be considered if clinically indicated. Urobilinogen, Urine Dipstick Normal Normal mg/dL [facility] pH, Urn (dipstick) 6.5 5.0 - 8.0 [facility] Blood, Urine Dipstick Large(A) Negative mg/dL [facility] Ketone, Urine Dipstick Negative Negative mg/dL [facility] Nitrite, Urine Dipstick Negative Negative [facility] Leukocytes, Urine Dipstick Small(A) Negative [facility] Appearance, Urine Dipstick Cloudy(A) Clear [facility] Specific [place] Urine Automated 1.010 1.005 - 1.030 [facility] Color, Urine Dipstick Red(A) Yellow [facility] Reflex to Culture Yes [facility] Indwelling Catheter Urine 01/18/2023 10:13 PM EDT 01/18/2023 10:22 PM EDT Narrative Resulting Agency Comment Spec In Lab Tanya Seaman MD URINE ORDERABLES Performing Organization Address [facility] Co de Phone Number [facility] [address] * Lactate, whole blood, send to lab ([facility]) (01/18/2023 7:46 PM EDT) Lactate WB 1.6 0.5 - 2.2 mmol/L [facility] Blood 01/18/2023 7:46 PM EDT 01/18/2023 7:51 PM EDT Narrative Resulting Agency Comment Spec In Lab Tanya Seaman MD CHEMISTRY ORDERABL ES Performing Organization Address [facility] Co de Phone Number [facility] [address] * (ABNORMAL) Differential, Automated (01/18/2023 7:16 PM EDT) Neutrophil % 80.9 % [facility] Neutrophil Absolute 5.86 1.70 - 6.10 x10(3)/mc L [facility] Lymph % 9.7 % [facility] Lymphocytes Abs 0.7(L) 0.9 - 3.2 x10(3)/mc L [facility] Monocyte % 5.9 % [facility] Monocyte Abs 0.4 0.3 - 0.9 x10(3)/mc L [facility] Eos % 2.6 % [facility] Eosinophils Abs 0.2 0.0 - 0.4 x10(3)/mc L [facility] Basophil % 0.6 % [facility] Baso Absolute 0.0 0.0 - 0.1 x10(3)/mc L [facility] Immature Gran % 0.30 % [facility] Comment: Immature granulocytes(IG's)percentage and absolute count will include metamyelocytes, myelocytes, and promyelocytes. Blood smears from CBCs yielding IG's will be scanned manually for concordance. If this scan disagrees with the automated IG or if promyelocytes are noted, a manual differential will be performed. Immature Gran Absolute 0.02 0.00 - 0.04 x10(3)/ L [facility] Blood 01/18/2023 7:16 PM EDT 01/18/2023 7:27 PM EDT Narrative Resulting Agency Comment Spec In Lab Kyle Mckeon MD HEMATOLOGY ORDERABLE S [facility] [address] * (ABNORMAL) Hemogram (01/18/2023 7:16 PM EDT) White Blood Cell 7.2 4.0 - 9.5 x10(3)/[facility] LABORATORY Red Blood Cell 3.24(L) 4.58 - 5.54 x10(6)/[facility] LAB[facility]AT[facility] Hemoglobin 10.1(L) 13.7 - 16.5 g/dL [facility] Hematocrit 30.1(L) 40.5 - 48.5 % [facility] Mean Cell Volume 92.9 82.9 - 93.1 fL [facility] Mean Cell Hemoglobin 31.2 27.5 - 32.1 pg [facility] Mean Cell Hemoglobin Concentration 33.6 32.0 - 35.7 g/dL [facility] Platelet 183 145 - 357 x10(3)/[facility] LABORATORY RDW Standard Deviation 44.4 36.0 - 45.0 fL [facility] RDW coefficient of variation 13.2 11.4 - 13.8 % [facility] Mean Platelet Volume 11.9 7.6 - 12.9 fL [facility] NRBC% auto 0.0 % [facility] LABORAT[facility] NRBC Absolute 0.000 0.000 - 0.000 x10(3)/ L [facility] Blood 01/18/2023 7:16 PM EDT 01/18/2023 7:27 PM EDT Narrative Resulting Agency Comment Spec In Lab Kyle cMkeon MD HEMATOLOGY ORDERABLE S [facility] [address] * (ABNORMAL) pro-Brain Natriuretic Peptide (01/18/2023 7:16 PM EDT) NT-proBNP 11,818(H) <=124 pg/mL [facility] Blood 01/18/2023 7:16 PM EDT 01/18/2023 7:27 PM EDT Narrative Resulting Agency Comment Spec In Lab Tanya Seaman MD CHEMISTRY ORDERABL ES Performing Organization Address City/[facility] Co de Phone Number [facility] [address] * (ABNORMAL) Troponin (01/18/2023 7:16 PM EDT) Troponin-T, High Sensitivity 78(H) <=22 ng/L [facility] Comment: This patient's troponin T concentration [...] value can be found in the [facility] Test Catalog Troponin - [facility] Test Catalog Reference: Fourth [place] Definition of Myocardial Infarction. Journal of the [place] College [employer] 2018;72:4659-5011 Blood 01/18/2023 7:16 PM EDT 01/18/2023 7:27 PM EDT Narrative Resulting Agency Comment Spec In Lab Tanya Seaman MD CHEMISTRY ORDERABL ES [facility] [address] * (ABNORMAL) Comprehensive metabolic panel (non-fasting) (01/18/2023 7:16 PM EDT) Glucose 76 65 - 199 mg/dL [facility] Comment:Diabetes: >=200 mg/d L plus symptoms Blood Urea Nitrogen 60(H) 10 - 20 mg/dL [facility] Creatinine 5.71(H) 0.80 - 1.50 mg/dL [facility] Sodium 144 135 - 145 mmol/L [facility] Potassium 4.6 3.5 - 5.0 mmol/L [facility] Comment: Please note: ??Patients with WBC >100,000 may have falsely elevated Potassium levels. ??For accurate Potassium quantification in these patients send serum separator tube (gold top) for subsequent determinations. ??Contact the Clinical Chemistry Laboratory if there are any questions. Chloride 109(H) 98 - 107 mmol/L [facility] Carbon Dioxide 21(L) 22 - 31 mmol/L [facility] Anion Gap 14 5 - 15 mmol/L [facility] Calcium 9.3 8.5 - 10.5 mg/dL [facility] Protein, Total 7.2 6.1 - 8.0 g/dL [facility] Albumin 4.2 3.2 - 5.2 g/dL [facility] Aspartate Aminotransferase 12 0 - 39 unit/L [facility] Alanine Aminotransferase 12 0 - 55 unit/L [facility] Alkaline Phosphatase 95 40 - 130 unit/L [facility] Bilirubin, Total 0.7 0.2 - 1.3 mg/dL [facility] Est Glomerular Filtration Rate 10(L) >=60 mL/min/1. 73 m?? [facility] Comment: This patient's estimated GFR was [...] MD CHEMISTRY ORDERABL ES Performing Organization Address [facility] Co de Phone Number [facility] [address] * EKG 12 Lead (01/18/2023 6:52 PM EDT) Ventricular rate 69 BPM MUSE SYSTEM Atrial Rate 69 BPM MUSE SYSTEM P-R Interval 212 ms MUSE SYSTEM QRS Duration 126 ms MUSE SYSTEM Q-T Interval 432 ms MUSE SYSTEM QTC Calculated (Bezet) 462 ms MUSE SYSTEM Calculated P [place] 46 degrees MUSE SYSTEM Calculated R [place] -37 degrees MUSE SYSTEM Calculated T [place] 101 degrees MUSE SYSTEM INTERPRETATION Sinus rhythm with 1st degree A-V block Left axis deviation Non-specific intra-ventricul ar conduction block Possible Lateral infarct , age undetermined Abnormal ECG No previous ECGs available Confirmed by Tessa Saldivar ([id number]) on 01/19/2023 9:21:20 AM MUSE SYSTEM 01/18/2023 6:52 PM EDT 01/19/2023 9:21 AM EDT Tanya Seaman MD ECG ORDERABLES Performing Organization Address City/[facility] Co de Phone Number MUSE SYSTEM documented [...] 09 (Given - Provider: Sixto Amato, LELAND) finasteride (Proscar) tablet 5 mg 5 mg, Oral, DAILY, First dose on Wed01/20/23 at 1230, Until Discontinued, DO NOT SPLIT, CRUSH OR OPEN, Routine 08 (Given - Provider: Morena Lopez, LELAND) 08 (Given - Provider: Morena Lopez RN) 09 (Given - Provider: Sixto Amato, LELAND) gabapentin (Neurontin) capsule 100 mg 100 mg, Oral, 2 TIMES DAILY, First dose on Wed01/19/23 at 1645, Until Discontinued, Routine 08 (Given - Provider: Morena Lopez RN)2119 (Given - Provider: Adrienne Calderon RN) 827 (Given - Provider: Morena Lopez, LELAND)2101 (Given [...] 09 (Given - Provider: Sixto Amato, LELAND) OLANZapine (ZyPREXA) tablet 15 mg 15 mg, [...] Routine 0910 (Given - Provider: Sixto Amato, LELAND) PRN [...] Routine documented in this encounter 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
--- OUTSIDE RECORDS SUMMARY | 2024-02-04 12:57 | XMS_ITS | Encounter Summary ---
Author Organization [facility] [place] [address] Care Team Providers Care Sales And Management Trainee Name Role Phone Reinier Arceo Primary Care Provider [phone] Encounter Details Date Type Department Care Team (Late st Contact Info) Description 01/18/2023 External [place] [address] Social History Tobacco Use Types Packs/Day Years [...] 2:20 PM EDT [place] [address] Austin Simon MD [facility] [place] [address] documented as of this encounter Procedures Procedure Name Priority Date/Time Associated Diagnosis Comments ECG SCAN Routine 01/18/2023 1:02 PM EDT documented in this encounter Results * Scan Doc: ECG (01/18/2023 1:02 PM EDT) Historical Provider MEDIA MGR SCAN EX T ORDR/RSLT documented in this encounter Visit Diagnoses Not on filedocumented in this encounter Care Teams Sales And Management Trainee Relationship Specialty Start Date End Date Reinier Arceo PA [address] [place] [address] PCP - General Internal Medicine 01/18/23 documented as of this encounter
--- OUTSIDE RECORDS SUMMARY | 2024-02-04 12:57 | XMS_ITS | Encounter Summary ---
Author Organization [facility] [place] [address] Care Team Providers Care Asparagus Cutter Name Role Phone Reina Alcala APRN Primary Care Provider [phone] Reason for Visit * Reason Comments Follow-up Encounter Details Date Type Department Care Team ([facility] st Contact Info) Description 04/23/2015 1:45 PM EDT Office Visit Dermatology at [address] [place] [address] Sixto Doty MD [address], [place] [address] Self-excoriation disorder Social History Tobacco Use Types Packs/Day Years Used Date Smoking Tobacco: Never Sex and Gender Information Value Date Recorded Sex Assigned at Not on file Gender Identity Not on file Sexual Orientation Not on file documented as of this encounter Patient Instructions * Patient Instructions* Marilyn Ornelas LPN - 04/23/2015 2:11 PM EDT [facility] Actinic Keratosis: After Your Visit Your [...] more? Visit our health information library at [email or web address] You can also view health information on [employer], your personal patient account. Log in or sign up today. Enter L364 in the search box to learn more about Actinic Keratosis: After Your Visit. ?? [id number] [employer]. Care instructions adapted under license by [facility]. This care instruction is for use with your licensed healthcare professional. If you have questions about a medical condition or this instruction, always ask your healthcare professional. [employer] disclaims any warranty or liability for your use of this information. Content Version: 10.4.623160; Current as of: January 25, 2014 documented [...] pharmacy. Return to clinic here p.r.n. COPY: Zhnag [email or web address] documented in this encounter Plan of Treatment Upcoming Encounters Date Type Department Care Team (Late st Contact Info) Description 04/06/2024 2:20 PM EDT Procedure [place] [address] Austin Simon MD [facility] [place] [address] documented as of this encounter Visit Diagnoses Diagnosis Self-excoriation disorder documented in this encounter Care Teams Asparagus Cutter Relationship Specialty Start Date End Date Reina Alcala APRN [address] [place] [address] [place] [address] PCP - General 04/18/14 01/17/23 documented as of this encounter
--- OUTSIDE RECORDS SUMMARY | 2024-02-04 12:57 | XMS_ITS | Encounter Summary ---
Author Organization [facility] Address [facility] [place] [address] Care Team Providers Care Manager Global Communications Name Role Phone Reina Alcala SONNY Primary Care Provider [phone] Encounter Details Date Type Department Care Team (Latest Contact Info) Description 08/25/2019 1:40 PM EST - 08/25/2019 11:59 PM [facility] Hospital Encounter Mobile Echocardiography [facility] [place] [address] Dianne Pace APRN [facility] [address] [place] [address] Heart failure, unspecified HF chronicity, unspecified heart [...] 2:20 PM EDT Procedure visit Urology at [facility] [place] [address] Austin Simon MD [facility] [place] [address] documented as of this encounter Procedures Procedure [...] . ? (Age): 1955(63y) Med Rec#: ? [id number] ?Sex: ?M ? Site Loc: ? [facility] ??Ht / Wt: ??165.1(cm)/118.3 Pt. Loc: ?Adult Floor ? BSA: ?2.22 Study Date: ?? 08/25/2019 ?Pt. Type: Inpatient Tape: ? Referring: Dianne Pace Referring: [facility] (Diag Imaging) Referring: [facility](Med Rec) Referring: [facility](Med/Surg) Reading: Remy Ball ([id number]) Aluminum Siding Mechanic: ABHI Aluminum Siding Mechanic: ABHI Diagnosis: *Heart failure, unspecified (I50.9) Rhythm: [...] Vmax ?0.81 ? m/sec ? MV deceleration [id number] ? msec ? MV A-wave Vmax ?1.06 [...] ? Mid-Inferior ?Hypokinetic ? Mid-Inferoseptal ?Hypokinetic ? [place]-Septal ? Hypokinetic ? [place]-Anterior ? Hypokinetic ? [place]-Lateral ?Hypokinetic ? [place]-Inferior ? Hypokinetic ? [place]-Tip ?Hypokinetic ? This report has been electronically signed by: Remy Ball MD ? 08/25/2019 14:23:59 Images reviewed and interpretation verified [facility] Procedure Note Remy Ball MD - 08/25/2019 Procedure: Transthoracic Echocardiogram Patient: KIA Parada (Age): 1955(63y) [facility] Rec#: [id number] Sex: M Site Loc: [facility] Ht / Wt: 165.1(cm)/118.3 Pt. Loc: Adult Floor BSA: 2.22 Study Date: 08/25/2019 Pt. Type: Inpatient Tape: Referring: Dianne Pace Referring: [facility] (Diag Imaging) Referring: [facility](Med Rec) Referring: [facility](Med/Surg) Reading: Remy Ball ([id number]) Aluminum Siding Mechanic: ABHI Aluminum Siding Mechanic: ABHI Diagnosis: *Heart failure, unspecified (I50.9) Rhythm: [...] MV E-wave Vmax 0.81 m/sec MV deceleration [id number] msec MV A-wave Vmax 1.06 m/sec MV [...] Hypokinetic Mid-Posterolateral Hypokinetic Mid-Inferior Hypokinetic Mid-Inferoseptal Hypokinetic [place]-Septal Hypokinetic [place]-Anterior Hypokinetic [place]-Lateral Hypokinetic [place]-Inferior Hypokinetic [place]-Tip Hypokinetic This report has been electronically signed by: Remy Ball MD 08/25/2019 14:23:59 Images reviewed and interpretation verified [facility] Dianne Pace APRN ECHO ORDERABLES documented in this encounter Visit Diagnoses Diagnosis Heart failure, unspecified HF chronicity, unspecified heart failure type documented in this encounter Care Teams Manager Global Communications Relationship Specialty Start Date End Date Reina Alcala APRN [address] [place] [address] [place] [address] PCP - General 04/18/14 01/17/23 documented as of this encounter
--- OUTSIDE RECORDS SUMMARY | 2024-02-04 12:57 | XMS_ITS | Encounter Summary ---
Author Organization [facility] [place] [address] Care Team Providers Care Bathing Suit Maker Name Role Phone Reina Alcala APRN Primary Care Provider [phone] Reason for Visit * Reason Comments Follow-up Encounter Details Date Type Department Care Team (Late st Contact Info) Description 01/15/2015 1:45 PM EDT Office Visit Dermatology at [address] [place] [address] Sixto Doty MD [address], [place] [address] Self-excoriation disorder Discharge Disposition: Home Social History [...] from the original note were not included. [facility] Dermatitis: After Your Visit Your Care Instructions [...] help for plant rashes. ?? Try an swrz-vdu-gdjrpzl antihistamine such as diphenhydramine (Benadryl) or chlorpheniramine [...] more? Visit our health information library at [email or web address] You can also view health information on [employer], your personal patient account. Log in or sign up today. Enter F270 in the search box to learn more about Dermatitis: After Your Visit. ?? [phone] [employer]. Care instructions adapted under license by [facility]. This care instruction is for use with your licensed healthcare professional. If you have questions about a medical condition or this instruction, always ask your healthcare professional. [employer], [employer] disclaims any warranty or liability for your use of this information. Content Version: 10.4.157912; Current as of: September 06, 2013 documented [...] patient will continue to work with his housing case manager on finding a solution to his above [...] 2:20 PM EDT [place] [address] Austin Simon MD [facility] [place] [address] documented as of this encounter Visit Diagnoses Diagnosis Self-excoriation disorder documented in this encounter Care Teams Bathing Suit Maker Relationship Specialty Start Date End Date Reina Alcala APRN [address] [place] [address] [place] [address] PCP - General 04/18/14 01/17/23 documented as of this encounter
--- OUTSIDE RECORDS SUMMARY | 2024-02-04 12:57 | XMS_ITS | Encounter Summary ---
Author Organization [facility] [place] [address] Care Team Providers Care Research Development Manager Name Role Phone Reinier Arceo Primary Care Provider [phone] Encounter Details Date Type Department Care Team (Late Contact Info) Description 01/18/2023 [place] [id number] Unknown None Social History Tobacco Use Types Packs/Day Years Used Date Smoking Tobacco: Never Alcohol Use Standard Drinks/Week Comments Never 0 (1 standard drink = 0.6 oz pur e alcohol) [facility] Inpatient Questions Answer Date Recorded Does Anyone [...] 2:20 PM EDT [place] [address] Austin Simon MD [facility] [place] [address] documented as of this encounter Procedures Procedure Name Priority Date/Time Associated Diagnosis Comments ECHOCARDIOGRAM TRANSTHORACIC Routine 01/18/2023 5:58 PM EDT documented in this encounter Results * Echocardiogram Transthoracic (01/18/2023 5:58 PM EDT) Anatomical Region Laterality Modality Cardiac Other 01/18/2023 5:58 PM EDT Narrative 01/19/2023 8:45 AM EDT ? Echocardiogram Report Name: SANTIAGO SANCHEZ ? Study Date: 01/18/2023 05:58 PMBP: 145/90 mmHg ? [place] [facility] [place] HR: 69 : 1955 Age: 67 yrs Gender: Male Ordering Physician: Tanya Delcid Referring Physician: Tanya Delcid Performed By: Heron Santacruz Reason For Study: Systolic heart failure History: heart failure Interpreting Fellow: Heron Santacruz. Exam Location: [facility]. Interpretation Summary -Limited echocardiogram performed [...] prior echocardiogram for comparison. Procedure Limited - 03712. Satisfactory quality. There is normal sinus rhythm. [...] Date: 305:58 PMBP: 145/90 mmHg Patient [place] [facility] [place] HR: 69 : 1955 Age: 67 yrs Gender: Male Ordering Physician: Tanya Delcid Referring Physician: Tanya Delcid Performed By: Heron Santacruz Reason For Study: Systolic heart failure History: heart failure Interpreting Fellow: Heron Santacruz. Exam Location: [facility]. Interpretation Summary -Limited echocardiogram performed [...] regurgitation jet. The estimated right atrial pressure [id number]. -Normal biatrial size. -Doppler assessment of the aortic valve consistent with mild aorticstenosis although visually the valve does not appear stenotic. Recommend formal echocardiogram for proper assessment. -There is no prior echocardiogram for comparison. Procedure Limited - [id number]. Satisfactory quality. There is normal sinus rhythm. [...] on filedocumented in this encounter Care Teams Research Development Manager Relationship Specialty Start Date End Date Reinier Arceo PA [address] [place] [address] PCP - General Internal Medicine 01/18/23 documented as of this encounter
--- OUTSIDE RECORDS SUMMARY | 2024-02-04 12:57 | XMS_ITS | Encounter Summary ---
Author Organization [facility] [place] [address] Care Team Providers Care Valve Liner Rubber Name Role Phone Reina Alcala APRN Primary Care Provider [phone] Reason for Visit * Reason Comments Follow-up Encounter Details Date Type Department Care Team (Late st Contact Info) Description 07/03/2014 1:00 PM EST Office Visit Dermatology at [place] [address] [facility] [place] [address] Sixto Doty MD [address] [facility] [place] [address] Neurodermatitis Discharge Disposition: Home Social History Tobacco [...] to financial issues of funding his mother's correction, he has credit card debt that is [...] The patient is working with his social welfare clerk to try to find gainful employment; this is an ongoing process he states. COPY: Reina Alcala A.P.R.N. documented in this encounter Plan of Treatment Upcoming Encounters Date Type Department Care Team (Late st Contact Info) Description 04/06/2024 2:20 PM EDT Procedure [place] [address] Austin Simon MD [facility] [place] [address] documented as of this encounter Visit Diagnoses Diagnosis Neurodermatitis Lichenification and lichen simplex chronicus documented in this encounter Care Teams Valve Liner Rubber Relationship Specialty Start Date End Date Reina Alcala APRN [address] [place] [address] [place] [address] PCP - General 04/18/14 01/17/23 documented as of this encounter
--- OUTSIDE RECORDS SUMMARY | 2024-02-04 12:57 | XMS_ITS | Encounter Summary ---
Author Organization [facility] [place] [address] Care Team Providers Care Assembler Fitter Name Role Phone Reina Alcala APRN Primary Care Provider [phone] Reason for Visit * Reason Comments Psoriasis Encounter Details Date Type Department Care Team (Late st Contact Info) Description 10/09/2014 1:15 PM EDT Office Visit Dermatology at [address] [place] [address] Sixto Doty MD [address], [place] [address] Neurodermatitis Discharge Disposition: Home Social History Tobacco [...] from the original note were not included. [facility] Psoriasis: After Your Visit Your Care Instructions Psoriasis (say ddc-OH-vm-ruel) is a long-term skin problem that causes [...] still damp. This seals in moisture. Use daak-oew-cckcyxx products that your doctor suggests. These may [...] more? Visit our health information library at [email or web address] You can also view health information on [email or web address], your personal patient account. Log in or sign up today. Enter U759 in the search box to learn more about Psoriasis: After Your Visit. ?? [id number] [employer]. Care instructions adapted under license by [facility]. This care instruction is for use with your licensed healthcare professional. If you have questions about a medical condition or this instruction, always ask your healthcare professional. [employer] disclaims any warranty or liability for your use of this information. Content Version: 10.3.028926; Current as of: September 06, 2013 documented [...] 2:20 PM EDT [place] [address] Austin Simon MD [facility] [place] [address] documented as of this encounter Visit Diagnoses Diagnosis Neurodermatitis Lichenification and lichen simplex chronicus documented in this encounter Care Teams Assembler Fitter Relationship Specialty Start Date End Date Reina Alcala APRN [address] [place] [address] [place] [address] PCP - General 04/18/14 01/17/23 documented as of this encounter
--- OUTSIDE RECORDS SUMMARY | 2024-02-04 12:57 | XMS_ITS | Encounter Summary ---
Author Organization Formerly [facility] [place] [address] Care Team Providers Care Quality Audit Representative Name Role Phone Reinier Arceo Primary Care Provider [phone] Reason for Visit * Auth/Cert (Routine) Specialty Diagnoses / Procedures Referred By Fady t Referred To Contact Diagnoses Heart failure CHF w/ CLEM Procedures EMERGENCY FERI Tanya Seaman MD [facility] [place] [address] [place] [address] [facility] Referral ID Status Reason Start Date Expiration Date Visits Re quested Visits Authorized [id number] 1 1 Encounter Details Date Type Department Care Team (Late st Contact Info) Description 01/22/2023 1:00 PM EDT - 01/22/2023 2:00 PM EDT [place] [address] Layton Morris MD [facility] [place] [address] [place] [address] CARDIAC CATHETERIZATION Social History Tobacco Use Types [...] 2020), diabetes, hypertension,and hyperlipidemia who presents from [facility] ED after being redirected from [facility] urgent clinic for one month [...] and wonders if his neighbor across the [place] in his apartment complex is poisoning him [...] getting progressively worse he went to the [facility] urgent clinic in [place], [place] and was subsequently transferred to [facility] ED for further management. Upon initial presentation to [facility] ED: The patient was noted to be [...] 40 mg PO) and transferred to [facility] for management of presumed acute on chronic HFrEF and CLEM. Upon direct admission to [facility]: The patient was noted to be afebrile [...] Patient was started on GDMT with metoprolol [id number] mg daily and losartan 25 mg daily. [...] he does have capacity. Spoke with his caser shoe parts Randa Gonzalez prior to discharge who was [...] Time Provider Department Center 01/28/2023 1:00 PM [facility] ROOM 4 [facility] Rad Your Inpatient Doctor: Mendel Luna MD Your Primary Care Provider: ELSIE Espinoza [phone] For questions regarding this document or issues relating to this hospitalization on the Medical Service, please contact your inpatient physician through the [facility] Tool Planer Set Up Operator . Issues afterhours and on weekends will be handled by the Hospitalist staff on-call. General Instructions None Future Appointments and Orders Future Appointments and Orders Future Appointments Provider Department Dept Phone 01/28/2023 1:00 PM [facility] US ROOM [address] [facility] Arrive at: [facility] [phone] Please bring someone to drive you home. [...] Sanchez for admission to Home Health. [address] [address] Phone Number: [phone] (home) Date of : 1955 Inpatient DOCUMENTATION FOR VNA SERVICES (INCLUDING THOSE PATIENTS WITH MEDICARE COVERAGE REQUIRING HOME VNA SERVICES AND/OR HOSPICE SERVICES) PATIENT'S LOCATION: Miguel Sanchez [address] [address] [phone] (home) Cell: Telephone Information: Cleaner Assistant's Name: self In discussion with the attending physician, it is certified that this patient is under their care and that they, or a Nurse Practitioner, Clinical Nurse specialist or Physician Bilingual Sales Representative who is working directly with them, had [...] manage benedict catheter HOME HEALTH CARE AGENCY: [facility]. [address] [place] [address] Start of care: 24-48 hours after discharge [...] patient's PCP: ELSIE Espinoza DR [address] / [facility] [address] . All VNA agencies which cover the area of patient's residence have been reviewed, either verbally or in writing, and patient/family have chosen the home health care agency noted. Questions: Disciplines Requested: Nursing Referral to Urology [[id number] Custom] As directed Process Instructions: If no progress note charted, please enter Clinical details in comments. Scheduling Instructions: Questions: My question or request is: 67 yo M admitted 01/18-01/26 w/ renal failure due to obstruction, discharged w/ benedict. Provider Contact Information: ELSIE Espinoza [address] / [facility] [address] Discharge References/Attachments: Discharge References/Attachments None documented in [...] Time Provider Department Center 01/28/2023 1:00 PM [facility] ROOM 4 [facility] Rad Your PCP office will contact you about scheduling follow up. Your Inpatient Doctor: Mendel Luna MD Your Primary Care Provider: ELSIE Espinoza [phone] For questions regarding this document or issues relating to this hospitalization on the Medical Service, please contact your inpatient physician through the [facility] Tool Planer Set Up Operator . Issues afterhours and on weekends will be handled by the Hospitalist staff on-call. * Attachments The following attachments cannot be sent through Care Everywhere. * Caregiver: Caring for an Indwelling Urinary Catheter: General Info (Slovenian) documented in this encounter Medications at Time [...] to home with a ride from [facility]. * Tati Schultz - 01/27/2023 3:43 PM EDTSummary: Transportation Transportation for discharge was scheduled and confirmed through [facility]. [facility] will have a otr tanker truck driver at the Main Entrance at 4:15p today to provide patient with transportation home. * Camille Shelley RD - 01/27/2023 12:42 PM EDT Nutrition Progress Note Miguel Sanchez is a 67 y.o. male with PMH significant for HFrEF (last known EF 45% in 2020), diabetes, hypertension, and hyperlipidemia who presents from [facility] ED after being redirected from [facility] urgent clinic for one month [...] Marii Serrano - 01/27/2023 11:42 AM EDT Financial Systems Analyst Encounter Note Patient Name: Miguel Sanchez : [id number] MR#: [id number] Admit Date: 01/18/2023 5:25 PM Hospital Day [...] AM EDT Hypertension-Nephrology Inpatient Follow-up Miguel Sanchez [id number] 1955 ID: 67 y.o. old male seen [...] SPEP shows possible paraprotein however DOROTEO negative. Basye & Lambda light chains elevated however ratio [...] TID This case was discussed with staff pi/senior research associate Dr. Crawford and the primary team. Please contact me at phone: [phone] or pager: [phone] with any questions. Deonte Lugo MD Nephrology [...] Marii Serrano - 01/26/2023 3:59 PM EDT Financial Systems Analyst Encounter Note Patient Name: Miguel Sanchez DOB: [id number] MR#: [id number] Admit Date: 01/18/2023 5:25 PM Hospital Day [...] 1955 PCP: ELSIE Espinoza PCP phone number: [phone] Date of Admission: 01/18/2023 ( Hospital Day 8 days ) Attending:Mednel Luna MD ID: Miguel Sanchez is a 67 y.o. male with PMH significant for HFrEF (last known EF 45% in 2020), diabetes, hypertension, and hyperlipidemia who presents from [facility] ED after being redirected from [facility] urgent clinic for one month [...] Bladder scan showed retaining 700ml. Patient refused benedcit. This Morning: - Today patient denies any [...] Gas) No results found for: PHART, PO2ART, QOQ4VZG, [id number] Microbiology: Microbiology Results (Last 30 days) Procedure Component Value Units Date/Time Urine culture [[id number]] Collected: 01/18/232212 Lab Status: Final result Specimen: [...] who have questions, please contact the health customer care agent that requested your imaging first. Jimmie العراقي, [...] who have questions, please contact the health customer care agent that requested your imaging first. Elsie Garza, [facility] Nurse Research Electronically Signed Final Report 01/25/2023 04:10 pm [...] diabetes, hypertension, and hyperlipidemia who presents from [facility] ED after being redirected from [facility] urgent clinic for one month [...] Diet: Daily Healthy Menu Choices/Cardiac diet ([facility]-Diet) Lines: Peripheral IV Line - Single Lumen [...] Yousif MSW - 01/26/2023 2:43 PM EDT MACHINE PECAN PICKER received a consult to support patient regarding concern of not getting his rent paid on time, which is typically due on the 1st of every month. MACHINE PECAN PICKER called patient's property management company, [employer], and spoke to one of the switchboard receptionist's, Meri, who stated they have a crow period forpaying rent late and are flexible with this kind of stuff. Meri also mentioned patient had spoken with one of her colleagues recently and asked if they could drive down to the hospital to grabthe check. MACHINE PECAN PICKER checked with patient to see if he has the check, to which he responded no. Patient to be discharged tomorrow. * Deonte Lugo MD - 01/26/2023 7:51 AM EDT Hypertension-Nephrology Inpatient Follow-up Miguel Sanchez [id number] 1955 ID: 67 y.o. old male seen [...] SPEP shows possible paraprotein however DOROTEO negative. Basye & Lambda light chains elevated however ratio [...] daily This case was discussed with staff pi/senior research associate Dr. Crawford and the primary team. Please contact me at phone: [phone] or pager: [phone] with any questions. Deonte Lugo MD Nephrology [...] AM EDT Hypertension-Nephrology Inpatient Follow-up Miguel Sanchez [id number] 1955 ID: 67 y.o. old male seen [...] SPEP shows possible paraprotein however DOROTEO negative. Basye & Lambda light chains elevated however ratio [...] daily This case was discussed with staff pi/senior research associate Dr. Crawford. Please contact me at phone: [phone] or pager: [phone] with any questions. Deonte Lugo MD Nephrology [...] and volume overload resolving. David calhoun need correction diuretics to maintain fluid balance. Please obtain repeat renal US and schedule for renal clinic follow up with Dr Lugo in 2 weeks. * Kendy Montes MD - 01/25/2023 6:05 AM EDT Images from the original note were not included. Cardiology Progress Note Patient info: Name: Miguel Sanchez : 1955 PCP: ELSIE Espinoza PCP phone number: [phone] Date of Admission: 01/18/2023 ( Hospital Day 7 days ) Attending:Mendel Luna MD ID: Miguel Sanchez is a 67 y.o. male with PMH significant for HFrEF (last known EF 45% in 2020), diabetes, hypertension, and hyperlipidemia who presents from [facility] ED after being redirected from [facility] urgent clinic for one month [...] Gas) No results found for: PHART, PO2ART, SLJ3VNW, XSH9ENN Microbiology: Microbiology Results (Last 30 days) Procedure Component Value Units Date/Time Urine culture [[id number]] Collected: 01/18/232212 Lab Status: Final result Specimen: [...] who have questions, please contact the health customer care agent that requested your imaging first. Jimmie العراقي, [...] diabetes, hypertension, and hyperlipidemia who presents from [facility] ED after being redirected from [facility] urgent clinic for one month [...] AM EDT Hypertension-Nephrology Inpatient Follow-up Miguel Sanchez [id number] 1955 ID: 67 y.o. old male seen for CLEM. Interval History: Diuretics held again yesterday however continues to auto diurese. He clarified his living situationfor us and explains that he lives independently in low income housing and depends on rides to get to clinic appointments etc which is not always available. He follows very closely with a mental health clinic and has a manager social responsibility there who helps him. Physical Examination: Last [...] negative. SPEP shows possible paraprotein DOROTEO pending. Basye & Lambda light chains elevated however ratio [...] and from clinic visits and has a manager social responsibility whogenerally helps him with this. This is [...] deficiency. This case was discussed with staff pi/senior research associate Dr. Morrow. Please contact me at phone: [phone] or pager: [phone] with any questions. Deonte Lugo MD Nephrology [...] He does report having a mental health cognos architect who may be of some assistance when discharge planning comes to play. * Kendy Montes MD - 01/24/2023 6:39 AM EDT Images from the original note were not included. Cardiology Progress Note Patient info: Name: Miugel Sanchez : 1955 PCP: ELSIE Espinoza PCP phone number: [phone] Date of Admission: 01/18/2023 ( Hospital Day 6 days ) Attending:Mendel Luna MD ID: Miguel Sanchez is a 67 y.o. male with PMH significant for HFrEF (last known EF 45% in 2019), diabetes, hypertension, and hyperlipidemia who presents from [facility] ED after being redirected from [facility] urgent clinic for one month [...] Gas) No results found for: PHART, PO2ART, WQD9NXZ, TXK5IEC Microbiology: Microbiology Results (Last 30 days) Procedure Component Value Units Date/Time Urine culture [[id number]] Collected: 01/18/232212 Lab Status: Final result Specimen: [...] who have questions, please contact the health customer care agent that requested your imaging first. Jimmie العراقي, [...] diabetes, hypertension, and hyperlipidemia who presents from [facility] ED after being redirected from [facility] urgent clinic for one month [...] AM EDT Hypertension-Nephrology Inpatient Follow-up Miguel Sanchez [id number] 1955 ID: 67 y.o. old male seen [...] negative. SPEP shows possible paraprotein DOROTEO pending. Basye & Lambda light chains elevated however ratio [...] and voiding trial - Please start ergocalciferol 88947 U weekly This case was discussed with staff pi/senior research associate Dr. Morrow. Please contact me at phone: [phone] or pager: [phone] with any questions. Deonte Lugo MD Nephrology [...] 1955 PCP: ELSIE Espinoza PCP phone number: [phone] Date of Admission: 01/18/2023 ( Hospital Day 5 days ) Attending:Mendel Luna MD ID: Miguel Sanchez is a 67 y.o. male with PMH significant for HFrEF (last known EF 45% in 2019), diabetes, hypertension, and hyperlipidemia who presents from [facility] ED after being redirected from [facility] urgent clinic for one month [...] Gas) No results found for: PHART, PO2ART, ETR6EAX, GII0TYF Microbiology: Microbiology Results (Last 30 days) Procedure Component Value Units Date/Time Urine culture [[id number]] Collected: 01/18/232212 Lab Status: Final result Specimen: [...] who have questions, please contact the health customer care agent that requested your imaging first. Jimmie العراقي, [...] diabetes, hypertension, and hyperlipidemia who presents from [facility] ED after being redirected from [facility] clinic for one month [...] diabetes, hypertension, and hyperlipidemia who presents from [facility] ED after being redirected from [facility] for one month [...] diabetes, hypertension, and hyperlipidemia who presents from [facility] ED after being redirected from [facility] clinic for one month [...] transportation for shopping and errands and his caser shoe parts visits once a week. Pt does not [...] Consistently following commands ADL: Assist needed to don/[facility] gown d/t lines Toileting: provided pt [...] Therapy: 30 (SCHM x 2; 9:56-10:26) Pager: [phone] Sushma Hernandez OT Occupational Therapy Rehabilitation Department * Deonte Lugo MD - 01/22/2023 7:46 AM EDT Hypertension-Nephrology Inpatient Follow-up Miguel Sanchez [id number] 1955 ID: 67 y.o. old male seen [...] negative. SPEP shows possible paraprotein DOROTEO pending. Basye & Lambda light chains elevated however ratio [...] primaryteam. This case was discussed with staff pi/senior research associate Dr. Morrow. Please contact me at phone: [phone] or pager: [phone] with any questions. Deonte Lugo MD Nephrology [...] 1955 PCP: ELSIE Espinoza PCP phone number: [phone] Date of Admission: 01/18/2023 ( Hospital Day 4 days ) Attending:Mendel Luna MD ID: Miguel Sanchez is a 67 y.o. male with PMH significant for HFrEF (last known EF 45% in 2019), diabetes, hypertension, and hyperlipidemia who presents from [facility] ED after being redirected from [facility] urgent clinic for one month of progressively worsening shortness of breath and associated chest pain occurring both at rest and on exertion with concern for HFrEF exacerbation and CLEM. Active Problems: Active Hospital Problems Diagnosis Heart failure Resolved Hospital Problems No resolved problems to display. 24 Hour and Subjective: Yesterday: -Holding diuresis. Was going to [facility] but got bumped so plan [...] Gas) No results found for: PHART, PO2ART, UCU0AWG, QZD9BQA Microbiology: Microbiology Results (Last 30 days) Procedure Component Value Units Date/Time Urine culture [[id number]] Collected: 01/18/232212 Lab Status: Final result Specimen: [...] who have questions, please contact the health customer care agent that requested your imaging first. Jimmie العراقي, [...] diabetes, hypertension, and hyperlipidemia who presents from [facility] ED after being redirected from [facility] clinic for one month [...] diabetes, hypertension, and hyperlipidemia who presents from [facility] ED after being redirected from [facility] clinic for one month [...] alone in a single level apartment in [place], [place] Bathroom Set-up: Tub-shower with a shower [...] Code: Gait x1 Sera Mancera, LORA Pager: [phone] Physical Therapy Inpatient Rehabilitation Department * Deonte Lugo MD - 01/21/2023 7:44 AM EDT Hypertension-Nephrology Inpatient Follow-up Miguel Sanchez [id number] 1955 ID: 67 y.o. old male seen [...] being This case was discussed with staff pi/senior research associate Dr. Morrow. Please contact me at phone: [phone] or pager: [phone] with any questions. Deonte Lugo MD Nephrology [...] 1955 PCP: ELSIE Espinoza PCP phone number: [phone] Date of Admission: 01/18/2023 ( Hospital Day 3 days ) Attending:Chris Lim MD ID: Miguel Sanchez is a 67 y.o. male with PMH significant for HFrEF (last known EF 45% in 2020), diabetes, hypertension, and hyperlipidemia who presents from [facility] ED after being redirected from [facility] urgent clinic for one month [...] Gas) No results found for: PHART, PO2ART, AVG1CQW, SFW2WEW Microbiology: Microbiology Results (Last 30 days) Procedure Component Value Units Date/Time Urine culture [[id number]] Collected: 01/18/232212 Lab Status: Final result Specimen: [...] who have questions, please contact the health customer care agent that requested your imaging first. Jimmie العراقي, [...] diabetes, hypertension, and hyperlipidemia who presents from [facility] ED after being redirected from [facility] urgent clinic for one month [...] AM EDT Hypertension-Nephrology Inpatient Follow-up Miguel Sanchez [id number] 1955 ID: 67 y.o. old male seen [...] serologies This case was discussed with staff pi/senior research associate Dr. Morrow and the patient's primary team. Please contact me at phone: [phone] or pager: [phone] with any questions. Deonte Lugo MD Nephrology Fellow, PGY-4 Associated attestation - Sixto Morrow MD - 01/20/2023 4:58 PM EDT I saw and discussed the patient with the fellow and I agree with the assessment plan in his note. CLME on presumed CKD. Nephrotic range proteinuria however [...] Reina Alcala APRN (Inactive) PCP phone number: [phone] Date of Admission: 01/18/2023 ( Hospital Day 2 days ) Attending:Chris Lim MD ID: Miguel Sanchez is a 67 y.o. male with PMH significant for HFrEF (last known EF 45% in 2019), diabetes, hypertension, and hyperlipidemia who presents from [facility] ED after being redirected from [facility] urgent clinic for one month [...] Gas) No results found for: PHART, PO2ART, TVL5UJY, UCR8IFS Microbiology: Microbiology Results (Last 30 days) Procedure Component Value Units Date/Time Urine culture [[id number]] Collected: 01/18/232212 Lab Status: Final result Specimen: [...] who have questions, please contact the health customer care agent that requested your imaging first. Jimmie العراقي, [...] diabetes, hypertension, and hyperlipidemia who presents from [facility] ED after being redirected from [facility] urgent clinic for one month [...] PM EDTSummary: Advance Directive Patient completed a [place] Advance Directive. Patient identified his sister Mony as his health care agent. * Sera Mancera, PT - 01/19/2023 11:00 AM EDT Physical Therapy evaluation Patient profile: Miguel Sanchez is a 67 y.o. male with PMH significant for HFrEF (last known EF 45% in 2020), diabetes, hypertension, and hyperlipidemia who presents from [facility] ED after being redirected from [facility] urgent clinic for one month of progressively worsening shortness of breath and associated chest pain occurring both at rest and on exertion. Social History: Home set-up: Lives alone in a single level apartment in [place], [place] Bathroom Set-up: Tub-shower with a shower [...] Moderate Complexity Evaluation Sera Mancera, LORA Pager: [phone] Physical Therapy Inpatient Rehabilitation Department * Sushma Hernandez, OT - 01/19/2023 10:30 AM EDT Occupational Therapy Evaluation Patient profile: Miguel Sanchez is a 67 y.o. male with PMH significant for HFrEF (last known EF 45% in 2020), diabetes, hypertension, and hyperlipidemia who presents from [facility] ED after being redirected from [facility] for one month [...] transportation for shopping and errands and his caser shoe [employer] visits once a week. Pt does not [...] and measurable assessment of functional outcome. Pager: [phone] Sushma Hernandez OTR/L Occupational Therapy Rehabilitation Department * Marii Serrano - 01/19/2023 10:23 AM EDT Financial Systems Analyst Encounter Note Patient Name: Miguel Sanchez : [id number] MR#: [id number] Admit Date: 01/18/2023 5:25 PM Hospital Day [...] Kevin Ashwin and doesn't believe in goingto Baptism because he can zoroastrian God in any [...] sent to Office of Care Management ~ [employer]. * Chris Lim MD - 01/19/2023 6:11 AM EDT Images from the original note were not included. Cardiology Progress Note Patient info: Name: Miguel Sanchez : 1955 PCP: Reina Alcala APRN (Inactive) PCP phone number: [phone] Date of Admission: 01/18/2023 ( Hospital Day 1 day ) Attending:Chris Lim MD ID: Miguel Sanchez is a 67 y.o. male with PMH significant for HFrEF (last known EF 45% in 2019), diabetes, hypertension, and hyperlipidemia who presents from [facility] ED after being redirected from [facility] urgent clinic for one month of progressively worsening shortness of breath and associated chest pain occurring both at rest and on exertion. Active Problems: Active Hospital Problems Diagnosis Heart failure Resolved Hospital Problems No resolved problems to display. 24 Hour and Subjective: Yesterday: - The patient was reassuringly afebrile and hemodynamically stable upon transfer to [facility]. Interestingly, initial exam did not demonstrate marked [...] Gas) No results found for: PHART, PO2ART, GFB1RKY, UVU9SDO Microbiology: Microbiology Results (Last 30 days) No [...] who have questions, please contact the health customer care agent that requested your imaging first. Jimmie العراقي, [...] diabetes, hypertension, and hyperlipidemia who presents from [facility] ED after being redirected from [facility] urgent clinic for one month [...] Medicine, PGY-1 Cardiology M1-S1, #3011 Cardiology M1-S2, #2711 01/19/2023, 10:56 AM Cardiology Staff Addendum Miguel [...] Reina Alcala APRN (Inactive) PCP phone number: [phone] Date of Admission: 01/18/2023 ( Hospital Day 0 days ) Attending:Tanya Seaman MD ID: Miguel Sanchez is a 67 y.o. male with PMH significant for HFrEF (last known EF 45% in 2019), diabetes, hypertension, and hyperlipidemia who presents from [facility] ED after being redirected from [facility] urgent clinic for one month [...] getting progressively worse he went to the [facility] urgent clinic in [place], [place] and was subsequently transferred to [facility] ED for further management. Upon initial presentation to [facility] ED: The patient was noted to be [...] 40 mg PO) and transferred to [facility] for management of presumed acute on chronic HFrEF and CLEM. Upon direct admission to [facility]: The patient was noted to be afebrile [...] history: Reports living in an apartment in [place], [place] Reports his father as a result [...] diabetes, hypertension, and hyperlipidemia who presents from [facility] ED after [facility] one month of progressively worsening shortness of breath and associated chest painoccurring both at rest and on exertion. The patient was reassuringly afebrile and hemodynamically stable upon transfer to [facility]. Interestingly, initial exam did not demonstrate marked [...] More than 30 minutes were spent in [id number] contact with patient and with arranging discharge [...] have to pay my rent, get two x ray operator's checks - one for rent and one [...] a catheter. Has daily auditory hallucinations of [place] that he has lived with for decades. No SI/HI. Diagnoses: schizophrenia 1996 Current treatment: zyprexa 15mg QHS Past hospitalizations: never Suicide attempts: not really - years ago he came close, but doesn't elaborate Past psychiatric medications: did not assess Substance Use History/Treatment: no alcohol, cigarettes, marijuana, or other substances Social History: Lives in an apartment by himself in [facility] [facility]. No family in the area. Only support is his mental health agency. [facility] - Randa Daniels ([employer]). Asa Deal is his provider. Problem List: [...] injection 7,500 Units 7,500 Units Subcutaneous Q8H [facility] Kendy Montes MD 7,500 Units at 01/26/23 [...] of glucose Buccal Q30 Min PRN Kyle cMkeon MD Or dextrose 10% infusion 250 mL [...] rate, and normal rhythm Language: fluent in mohawk Mood: fine Affect: blunted and mood-congruent Thought [...] check on him, or see if his caser shoe parts willcheck in on him tomorrow Please page psychiatry with additional questions Patient on IEA Status? IEA: NO, patient is not on IEA and does not have any psychiatric contraindication to discharge at the time of this assessment. Recommendations were communicated to primary bridge/structure inspection team leader Kendy Montes MD. Maritza Awan MD Psychiatry, [...] [] Minimal - [] Minimal [] Straightforward 50308 [] Low [] Low [] Low [] Low 00811 [] Moderate [x] Moderate [] Moderate [] Moderate 99531 [x] High [] High [x] High [x] High 23224 Final Coding Determination: High Associated attestation - [...] CM). Keon Park MD Psychiatry Consultation Pager: [phone] * Plan of Care - Adrienne Calderon [...] diabetes, hypertension, and hyperlipidemia who presents from [facility] ED after being redirected from [facility] urgent [facility] for one month [...] discuss discharge planning needs. provide the [facility], Office of Care Management letter from the [employer] pertaining to rehab referrals. provide a letter describing our affiliations within the [facility] and educate about their right to choose where referrals are sent. provide a list of Home Health Agencies / Durable Medical Equipment vendors which serve their preferred geographic area. provided patient with [facility] Star Quality Rating handout. They have requested referrals to: [facility] [employer]. [address] [place] [id number] Note routed to a [employer] who will communicate referrals to facilities and [...] from the original note were not included. [facility] [place] [address] [address] CORONARY ANGIOGRAM AND PERCUTANEOUS CORONARY INTERVENTION REPORT Patient: Miguel Sanchez : 1955 MR number: [id number] Date of Service: 01/22/2023 Tax Examiner: Layton Morris MD Fellow: Mario Alberto Glasgow MD INDICATION: Miguel Sanchez is a 67 y.o. male with PMH significant for HFrEF (last known EF 45% in 2019), diabetes, hypertension, and hyperlipidemia who presents from [facility] ED after being redirected from [facility] urgent clinic for one month [...] goes to the bank and gets a waiter and cashier's check and pays it. CM tried to call the bank and the customer needs to be present for them to release any funds. I tried to call the [employer] [facility]- but they were closed. CM also tried to call his cas[employer] Randa to see if she could help. Left message for her to call back. Will put in MACHINE PECAN PICKER consult to meet with him on Wednesday to follow up with the [employer] To see if theywould be able [...] PT/OT Recommendations Outpatient Agency/Support Group Needs: Other [facility]: Randa Gonzalez at [phone] ([employer]) Transportation: Medicaid transport- will need 24 hours [...] will need 24 hour notice to contact ME t ransportation services prior to discharge. Social [...] GOAL OUTCOME EVALUATION: Ongoing * Plan of [facility], Jayson De La Cruz Jr., MD [...] on RA Abd: soft, nondistended, nontender : bneedict catheter draining CYU Rectal: deferred Ext: wwp [...] Coon MD Urology PGY-2 Daytime Consult Pager #[phone] * Initial Assessments - Darryl Rodriguez RN - 01/19/2023 4:57 PM EDT Office of Care Management Initial Assessment Darryl Rodriguez RN reviewed record and discussed patient with Care Team. Source of Information: Team, bedside nurse, medical record, and Patient, Chart Review. Introduced self/reviewed role; services accepted. Admitted From: Transfer from another hospital Location: [facility] Reason for Hospitalization: Heart problems and kidney [...] (i) The agent with financial power of civil rights attorney or a conservator appointed in accordance [...] DME: none Home Address confirmed as: [address] [facility] [address] Social & Family Supports: All names listed below confirmed with patient as current and correct Extended Emergency Contact Information Primary Emergency Contact: Mony Abraham Mobile Relation: Sibling Current Care Provided by: self Provides Primary Care For: no one, unable/limited ability to care for self Caregiver if needed: none Quality of Family relationships: non-existent Community Resources being provided currently: outpatient psychiatric care ([facility]) Behavioral Health History: Schizophrenia unspecified; MMD recurrent unspecified; on Olanzapine 15mgQD per Miroslava Anguiano CM at [facility] Substance Use/Abuse confirmed: denies all Social History [...] Yes ; Prescription Coverage: Yes Preferred Pharmacy: [id number] AT [address] [address] Status: Patient is a : No Primary [...] 7:38 AM EDT Hypertension-Nephrology Consultation Miguel Sanchez [id number] 1955 ID: Miguel Sanchez is 67 y.o. [...] labs. This case was discussed with staff pi/senior research associate Dr. Morrow and the patient's primary team. Please contact me at phone: [phone] or pager: [phone] with any questions. Deonte Lugo MD Nephrology [...] 2:20 PM EDT [place] [address] Austin Simon MD [facility] [place] [address] [place] [address] Scheduled Referrals Name Type Priority Associated Diagnoses [...] 3:23 PM EDT HIV SCREEN, 4TH GENERATION ([facility]/CGP/APD/NLH) Routine 01/20/2023 3:23 PM EDT HEPATITIS B [...] * POCT Glucose (01/27/2023 12:18 PM EDT) Glucose, POC 159 65 - 199 mg/dL [facility] Comment: Supplemental ranges: <140 mg/dL before meals <180 mg/dL all other times of the day Blood 01/27/2023 12:1 8 PM EDT 01/27/2023 12:18 PM EDT Mendel Luna MD POINT OF CARE TEST O RDERABLES Performing Organization Address City/[facility]/ZIP Co de Phone Number [facility] [place] [address] * POCT Glucose (01/27/2023 7:58 AM EDT) Glucose, POC 173 65 - 199 mg/dL [facility] Comment: Supplemental ranges: <140 mg/dL before meals <180 mg/dL all other times of the day Blood 01/27/2023 7:58 AM EDT 01/27/2023 7:58 AM EDT Mendel Luna MD POINT OF CARE TEST O RDERABLES Performing Organization Address [facility] Co de Phone Number [facility] [place] [address] * (ABNORMAL) Differential, Automated (01/27/2023 3:49 AM EDT) Neutrophil % 75.3 % [facility] Neutrophil Absolute 6.21(H) 1.70 - 6.10 x10(3)/mc L [facility] Lymph % 12.1 % [facility] Lymphocytes Abs 1.0 0.9 - 3.2 x10(3)/mc L [facility] Monocyte % 8.6 % [facility] Monocyte Abs 0.7 0.3 - 0.9 x10(3)/mc L [facility] Eos % 2.9 % [facility] Eosinophils Abs 0.2 0.0 - 0.4 x10(3)/mc L [facility] Basophil % 0.7 % [facility] Baso Absolute 0.1 0.0 - 0.1 x10(3)/mc L [facility] Immature Gran % 0.40 % [facility] Comment: Immature granulocytes(IG's)percentage and absolute count will include metamyelocytes, myelocytes, and promyelocytes. Blood smears from CBCs yielding IG's will be scanned manually for concordance. If this scan disagrees with the automated IG or if promyelocytes are noted, a manual differential will be performed. Immature Gran Absolute 0.03 0.00 - 0.04 x10(3)/ L [facility] Blood 01/27/2023 3:49 AM EDT 01/27/2023 4:08 AM EDT Narrative Resulting Agency Comment Spec In Lab Kyle Mckeon MD HEMATOLOGY ORDERABLE S [facility] [place] [address] * (ABNORMAL) Hemogram (01/27/2023 3:49 AM EDT) White Blood Cell 8.2 4.0 - 9.5 x10(3)/[facility] Red Blood Cell 3.45(L) 4.58 - 5.54 x10(6)/[facility] Hemoglobin 10.6(L) 13.7 - 16.5 g/dL [facility] Hematocrit 31.5(L) 40.5 - 48.5 % [facility] Mean Cell Volume 91.3 82.9 - 93.1 fL [facility] Mean Cell Hemoglobin 30.7 27.5 - 32.1 pg [facility] Mean Cell Hemoglobin Concentration 33.7 32.0 - 35.7 g/dL [facility] Platelet 163 145 - 357 x10(3)/[facility] RDW Standard Deviation 42.7 36.0 - 45.0 fL [facility] RDW coefficient of variation 13.0 11.4 - 13.8 % [facility] Mean Platelet Volume 12.8 7.6 - 12.9 fL [facility] NRBC% auto 0.0 % [facility] NRBC Absolute 0.000 0.000 - 0.000 x10(3)/[facility] Blood 01/27/2023 3:49 AM EDT 01/27/2023 4:08 AM EDT Narrative Resulting Agency Comment Spec In Lab Kyle Mckeon MD HEMATOLOGY ORDERABLE S Performing Organization Address [facility] Co de Phone Number [facility] [place] [address] * (ABNORMAL) Phosphorus (01/27/2023 3:49 AM EDT) Phosphorus 5.0(H) 2.5 - 4.5 mg/dL [facility] Blood 01/27/2023 3:49 AM EDT 01/27/2023 4:08 AM EDT Narrative Resulting Agency Comment Spec In Lab Tanya Seaman MD CHEMISTRY ORDERABL ES Performing Organization Address [facility] Phone Number [facility] [place] [address] * Magnesium (01/27/2023 3:49 AM EDT) Magnesium 0.97 0.69 - 1.07 mmol/L [facility] Blood 01/27/2023 3:49 AM EDT 01/27/2023 4:08 AM EDT Narrative Resulting Agency Comment Spec In Lab Tanya Seaman MD CHEMISTRY ORDERABL ES Performing Organization Address [facility] Phone Number [facility] [place] [address] * (ABNORMAL) Basic Metabolic Panel (non-fasting) (01/27/2023 3:49 AM EDT) Glucose 142 65 - 199 mg/dL [facility] Comment:Diabetes: >=200 mg/d L plus symptoms Blood Urea Nitrogen 78(H) 10 - 20 mg/dL [facility] Creatinine 4.74(H) 0.80 - 1.50 mg/dL [facility] Sodium 137 135 - 145 mmol/L [facility] Potassium 4.8 3.5 - 5.0 mmol/L [facility] Comment: Please note: ??Patients with WBC >100,000 may have falsely elevated Potassium levels. ??For accurate Potassium quantification in these patients send serum separator tube (gold top) for subsequent determinations. ??Contact the Clinical Chemistry Laboratory if there are any questions. Chloride 107 98 - 107 mmol/L [facility] Carbon Dioxide 15(L) 22 - 31 mmol/L [facility] Anion Gap 15 5 - 15 mmol/L [facility] Calcium 9.4 8.5 - 10.5 mg/dL [facility] Est Glomerular Filtration Rate 13(L) >=60 mL/min/1. 73 m?? [facility] Comment: This patient's estimated GFR was [...] CHEMISTRY ORDERABL ES Performing Organization Address [facility] Co de Phone Number [facility] [place] [address] * (ABNORMAL) POCT Glucose (01/26/2023 8:20 PM EDT) Glucose, POC 202(H) 65 - 199 mg/dL [facility] Comment: Supplemental ranges: <140 mg/dL before meals <180 mg/dL all other times of the day Blood 01/26/2023 8:20 PM EDT 01/26/2023 8:20 PM EDT Mendel Luna MD POINT OF CARE TEST O RDERABLES Performing Organization Address City/[facility]/ZIP Co de Phone Number [facility] [place] [address] * POCT Glucose (01/26/2023 4:04 PM EDT) Glucose, POC 152 65 - 199 mg/dL [facility] Comment: Supplemental ranges: <140 mg/dL before meals <180 mg/dL all other times of the day Blood 01/26/2023 4:04 PM EDT 01/26/2023 4:04 PM EDT Mendel Luna MD POINT OF CARE TEST O RDERABLES [facility] [place] [address] * POCT Glucose (01/26/2023 11:42 AM EDT) Glucose, POC 175 65 - 199 mg/dL [facility] Comment: Supplemental ranges: <140 mg/dL before meals <180 mg/dL all other times of the day Blood 01/26/2023 11:4 2 AM EDT 01/26/2023 11:42 AM EDT Mendel Luna MD POINT OF CARE TEST O RDERABLES [facility] [place] [address] * POCT Glucose (01/26/2023 7:51 AM EDT) Glucose, POC 137 65 - 199 mg/dL [facility] Comment: Supplemental ranges: <140 mg/dL before meals <180 mg/dL all other times of the day Blood 01/26/2023 7:51 AM EDT 01/26/2023 7:51 AM EDT Mendel Luna MD POINT OF CARE TEST O RDERABLES [facility] [place] [address] * Differential, Automated (01/26/2023 3:11 AM EDT) Neutrophil % 71.1 % [facility] Neutrophil Absolute 5.94 1.70 - 6.10 x10(3)/[facility] Lymph % 15.3 % [facility] Lymphocytes Abs 1.3 0.9 - 3.2 x10(3)/[facility] Monocyte % 8.9 % [facility] Monocyte Abs 0.7 0.3 - 0.9 x10(3)/[facility] Eos % 3.6 % [facility] Eosinophils Abs 0.3 0.0 - 0.4 x10(3)/[facility] Basophil % 0.7 % [facility] Baso Absolute 0.1 0.0 - 0.1 x10(3)/[facility] Immature Gran % 0.40 % [facility] Comment: Immature granulocytes(IG's)percentage and absolute count will include metamyelocytes, myelocytes, and promyelocytes. Blood smears from CBCs yielding IG's will be scanned manually for concordance. If this scan disagrees with the automated IG or if promyelocytes are noted, a manual differential will be performed. Immature Gran Absolute 0.03 0.00 - 0.04 x10(3)/[facility] Blood 01/26/2023 3:11 AM EDT 01/26/2023 3:40 AM EDT Narrative Resulting Agency Comment Spec In Lab Kyle Mckeon MD HEMATOLOGY ORDERABLE S [facility] [place] [address] * (ABNORMAL) Hemogram (01/26/2023 3:11 AM EDT) White Blood Cell 8.4 4.0 - 9.5 x10(3)/mc L [facility] Red Blood Cell 3.25(L) 4.58 - 5.54 x10(6)/mc L [facility] Hemoglobin 10.2(L) 13.7 - 16.5 g/dL [facility] Hematocrit 29.8(L) 40.5 - 48.5 % [facility] Mean Cell Volume 91.7 82.9 - 93.1 fL [facility] Mean Cell Hemoglobin 31.4 27.5 - 32.1 pg [facility] Mean Cell Hemoglobin Concentration 34.2 32.0 - 35.7 g/dL [facility] Platelet 161 145 - 357 x10(3)/mc L [facility] RDW Standard Deviation 43.0 36.0 - 45.0 fL [facility] RDW coefficient of variation 13.0 11.4 - 13.8 % [facility] Mean Platelet Volume 13.0(H) 7.6 - 12.9 fL [facility] NRBC% auto 0.0 % [facility] NRBC Absolute 0.000 0.000 - 0.000 x10(3)/mc L [facility] Blood 01/26/2023 3:11 AM EDT 01/26/2023 3:40 AM EDT Narrative Resulting Agency Comment Spec In Lab Kyle Mckeon MD HEMATOLOGY ORDERABLE S Performing Organization Address City/[facility]/ZIP Co de Phone Number [facility] [place] [address] * (ABNORMAL) Phosphorus (01/26/2023 3:11 AM EDT) Phosphorus 4.6(H) 2.5 - 4.5 mg/dL [facility] Blood 01/26/2023 3:11 AM EDT 01/26/2023 3:39 AM EDT Narrative Resulting Agency Comment Spec In Lab Tanya Seaman MD CHEMISTRY ORDERABL ES Performing Organization Address City/[facility]/ZIP Co de Phone Number [facility] [place] [address] * Magnesium (01/26/2023 3:11 AM EDT) Magnesium 0.97 0.69 - 1.07 mmol/L [facility] Blood 01/26/2023 3:11 AM EDT 01/26/2023 3:39 AM EDT Narrative Resulting Agency Comment Spec In Lab Tanya Seaman MD CHEMISTRY ORDERABL ES [facility] [place] [address] * (ABNORMAL) Basic Metabolic Panel (non-fasting) (01/26/2023 3:11 AM EDT) Glucose 127 65 - 199 mg/dL [facility] Comment:Diabetes: >=200 mg/d L plus symptoms Blood Urea Nitrogen 77(H) 10 - 20 mg/dL [facility] Creatinine 4.91(H) 0.80 - 1.50 mg/dL [facility] Sodium 139 135 - 145 mmol/L [facility] Potassium 4.8 3.5 - 5.0 mmol/L [facility] Comment: Please note: ??Patients with WBC >100,000 may have falsely elevated Potassium levels. ??For accurate Potassium quantification in these patients send serum separator tube (gold top) for subsequent determinations. ??Contact the Clinical Chemistry Laboratory if there are any questions. Chloride 105 98 - 107 mmol/L [facility] Carbon Dioxide 18(L) 22 - 31 mmol/L [facility] Anion Gap 16(H) 5 - 15 mmol/L [facility] Calcium 9.3 8.5 - 10.5 mg/dL [facility] Est Glomerular Filtration Rate 12(L) >=60 mL/min/1. 73 m?? [facility] Comment: This patient's estimated GFR was [...] CHEMISTRY ORDERABL ES Performing Organization Address [facility] Co de Phone Number [facility] [place] [address] * POCT Glucose (01/25/2023 9:24 PM EDT) Glucose, POC 181 65 - 199 mg/dL [facility] Comment: Supplemental ranges: <140 mg/dL before meals <180 mg/dL all other times of the day Blood 01/25/2023 9:24 PM EDT 01/25/2023 9:24 PM EDT Mendel Luna MD POINT OF CARE TEST O RDERABLES Performing Organization Address [facility] Co de Phone Number [facility] [place] [address] * POCT Glucose (01/25/2023 4:46 PM EDT) Glucose, POC 153 65 - 199 mg/dL [facility] Comment: Supplemental ranges: <140 mg/dL before meals <180 mg/dL all other times of the day Blood 01/25/2023 4:46 PM EDT 01/25/2023 4:46 PM EDT Mendel Luna MD POINT OF CARE TEST O RDERABLES Performing Organization Address [facility] Co de Phone Number [facility] [place] [address] * US Retroperitoneal Complete (01/25/2023 3:50 PM [...] who have questions, please contact the health customer care agent that requested your imaging first. ?Elsie Garza, [facility] Nurse Research Electronically Signed Final Report ?? 01/25/2023 04:10 pm Narrative 01/25/2023 4:11 PM EDT Renal ? (Signed Final 01/25/2023 04:10 pm) PATIENT INFO: ID #: ? [id number] ?: ??[birth year] (67 yrs)(M) Name: ? MIGUEL SANCHEZ ? Visit Date: 01/25/2023 03:47 pm PERFORMED BY: Attending: ?Kayla OTT, Elsie Conley Performed By: ? Paola Pritchard RDMS Referred By: ?MENDEL LUNA Location: ? [place] SERVICE(S) PROVIDED: URETRO - Retroperitoneal Complete - [id number] ? [id number] INDICATIONS: 67yo male with CLEM, repeat U/S [...] 01/25/2023 04:10 pm) PATIENT INFO: ID #: [id number] : [birth year] (67 yrs)(M) Name: MIGUEL SANCHEZ Visit Date: 01/25/2023 03:47 pm PERFORMED BY: Attending: Elsie Garza MD Performed By: Paola Pritchard RDMS Referred By: MENDEL LUNA Location: [facility] SERVICE(S) PROVIDED: URETRO - Retroperitoneal Complete - [id number] INDICATIONS: 67yo male with CLEM, repeat U/S [...] who have questions, please contact the health customer care agent that requested your imaging first. Elsie Garza, [facility] Nurse Research Electronically Signed Final Report 01/25/2023 04:10 pm Mendel Luna MD [facility] US GEN ORDERABLE S * POCT Glucose (01/25/2023 11:20 AM EDT) Glucose, POC 182 65 - 199 mg/dL [facility] Comment: Supplemental ranges: <140 mg/dL before meals <180 mg/dL all other times of the day Blood 01/25/2023 11:2 0 AM EDT 01/25/2023 11:20 AM EDT Mendel Luna MD POINT OF CARE TEST O RDERABLES Performing Organization Address [facility] Co de Phone Number [facility] [place] [address] * POCT Glucose (01/25/2023 7:44 AM EDT) Glucose, POC 155 65 - 199 mg/dL [facility] Comment: Supplemental ranges: <140 mg/dL before meals <180 mg/dL all other times of the day Blood 01/25/2023 7:44 AM EDT 01/25/2023 7:44 AM EDT Mendel Luna MD POINT OF CARE TEST O RDERABLES Performing Organization Address [facility] de Phone Number [facility] [place] [address] * Differential, Automated (01/25/2023 4:06 AM EDT) Neutrophil % 72.7 % [facility] Neutrophil Absolute 5.96 1.70 - 6.10 x10(3)/[facility] LAB[facility] Lymph % 14.7 % [facility] Lymphocytes Abs 1.2 0.9 - 3.2 x10(3)/[facility] Monocyte % 8.2 % [facility] Monocyte Abs 0.7 0.3 - 0.9 x10(3)/[facility] Eos % 3.5 % [facility] [facility] Eosinophils Abs 0.3 0.0 - 0.4 x10(3)/[facility] Basophil % 0.7 % [facility] IT[facility]ORY Baso Absolute 0.1 0.0 - 0.1 x10(3)/[facility] LABORATORY Immature Gran % 0.20 % [facility] Comment: Immature granulocytes(IG's)percentage and absolute count will include metamyelocytes, myelocytes, and promyelocytes. Blood smears from CBCs yielding IG's will be scanned manually for concordance. If this scan disagrees with the automated IG or if promyelocytes are noted, a manual differential will be performed. Immature Gran Absolute 0.02 0.00 - 0.04 x10(3)/mcL [facility] Blood 01/25/2023 4:06 AM EDT 01/25/2023 4:17 AM EDT Narrative Resulting Agency Comment Spec In Lab Kyle Mckeon MD HEMATOLOGY ORDERABLE S [facility] [place] [address] * (ABNORMAL) Hemogram (01/25/2023 4:06 AM EDT) White Blood Cell 8.2 4.0 - 9.5 x10(3)/mc L [facility] Red Blood Cell 3.38(L) 4.58 - 5.54 x10(6)/mc L [facility] Hemoglobin 10.6(L) 13.7 - 16.5 g/dL [facility] Hematocrit 30.7(L) 40.5 - 48.5 % [facility] Mean Cell Volume 90.8 82.9 - 93.1 fL [facility] Mean Cell Hemoglobin 31.4 27.5 - 32.1 pg [facility] Mean Cell Hemoglobin Concentration 34.5 32.0 - 35.7 g/dL [facility] Platelet 170 145 - 357 x10(3)/mc L [facility] RDW Standard Deviation 42.1 36.0 - 45.0 fL [facility] RDW coefficient of variation 12.8 11.4 - 13.8 % [facility] Mean Platelet Volume 12.6 7.6 - 12.9 fL [facility] NRBC% auto 0.0 % [facility] NRBC Absolute 0.000 0.000 - 0.000 x10(3)/mc L [facility] Blood 01/25/2023 4:06 AM EDT 01/25/2023 4:17 AM EDT Narrative Resulting Agency Comment Spec In Lab Kyle Mckeon MD HEMATOLOGY ORDERABLE S Performing Organization Address [facility] Co de Phone Number [facility] [place] [place] [address] * (ABNORMAL) Phosphorus (01/25/2023 4:06 AM EDT) Phosphorus 4.9(H) 2.5 - 4.5 mg/dL [facility] Blood 01/25/2023 4:06 AM EDT 01/25/2023 4:17 AM EDT Narrative Resulting Agency Comment Spec In Lab Tanya Seaman MD CHEMISTRY ORDERABL ES Performing Organization Address [facility] Co de Phone Number [facility] [place] [place] [address] * Magnesium (01/25/2023 4:06 AM EDT) Magnesium 1.00 0.69 - 1.07 mmol/L [facility] Blood 01/25/2023 4:06 AM EDT 01/25/2023 4:17 AM EDT Narrative Resulting Agency Comment Spec In Lab Tanya Seaman MD CHEMISTRY ORDERABL ES Performing Organization Address [facility] de Phone Number [facility] [place] [address] * (ABNORMAL) Basic Metabolic Panel (non-fasting) (01/25/2023 4:06 AM EDT) Glucose 148 65 - 199 mg/dL [facility] Comment:Diabetes: >=200 mg/d L plus symptoms Blood Urea Nitrogen 78(H) 10 - 20 mg/dL [facility] Creatinine 5.06(H) 0.80 - 1.50 mg/dL [facility] Sodium 139 135 - 145 mmol/L [facility] Potassium 4.5 3.5 - 5.0 mmol/L [facility] Comment: Please note: ??Patients with WBC >100,000 may have falsely elevated Potassium levels. ??For accurate Potassium quantification in these patients send serum separator tube (gold top) for subsequent determinations. ??Contact the Clinical Chemistry Laboratory if there are any questions. Chloride 103 98 - 107 mmol/L [facility] Carbon Dioxide 19(L) 22 - 31 mmol/L [facility] Anion Gap 17(H) 5 - 15 mmol/L [facility] Calcium 9.5 8.5 - 10.5 mg/dL [facility] Est Glomerular Filtration Rate 12(L) >=60 mL/min/1. 73 m?? [facility] Comment: This patient's estimated GFR was [...] MD CHEMISTRY ORDERABL ES Performing Organization Address City/[facility]/ZIP Co de Phone Number [facility] [place] [place] [address] * POCT Glucose (01/24/2023 10:12 PM EDT) Glucose, POC 175 65 - 199 mg/dL [facility] Comment: Supplemental ranges: <140 mg/dL before meals <180 mg/dL all other times of the day Blood 01/24/2023 10:1 2 PM EDT 01/24/2023 10:12 PM EDT Mendel Luna MD POINT OF CARE TEST O RDERABLES [facility] [place] [address] * POCT Glucose (01/24/2023 4:41 PM EDT) Glucose, POC 157 65 - 199 mg/dL [facility] Comment: Supplemental ranges: <140 mg/dL before meals <180 mg/dL all other times of the day Blood 01/24/2023 4:41 PM EDT 01/24/2023 4:41 PM EDT Mendel Luna MD POINT OF CARE TEST O RDSHANELLE Performing Organization Address City/State/[facility] Co de Phone Number [facility] [place] [address] * POCT Glucose (01/24/2023 12:10 PM EDT) Glucose, POC 177 65 - 199 mg/dL [facility] Comment: Supplemental ranges: <140 mg/dL before meals <180 mg/dL all other times of the day Blood 01/24/2023 12:1 0 PM EDT 01/24/2023 12:10 PM EDT Mendel Luna MD POINT OF CARE TEST O BERNARDINOERAMARCY Performing Organization Address [facility] Co de Phone Number [facility] [place] [place] [address] * POCT Glucose (01/24/2023 7:51 AM EDT) Glucose, POC 175 65 - 199 mg/dL [facility] Comment: Supplemental ranges: <140 mg/dL before meals <180 mg/dL all other times of the day Blood 01/24/2023 7:51 AM EDT 01/24/2023 7:51 AM EDT Mendel Luna MD POINT OF CARE TEST O RDERAMARCY Performing Organization Address City/[facility] Co de Phone Number [facility] [place] [place] [address] * (ABNORMAL) Phosphorus (01/24/2023 2:56 AM EDT) Phosphorus 5.0(H) 2.5 - 4.5 mg/dL [facility] Blood 01/24/2023 2:56 AM EDT 01/24/2023 3:06 AM EDT Narrative Resulting Agency Comment Spec In Lab Tanya Seaman MD CHEMISTRY ORDERABL ES Performing Organization Address [facility] Co de Phone Number [facility] [place] [place] [address] * Magnesium (01/24/2023 2:56 AM EDT) Magnesium 0.94 0.69 - 1.07 mmol/L [facility] Blood 01/24/2023 2:56 AM EDT 01/24/2023 3:06 AM EDT Narrative Resulting Agency Comment Spec In Lab Tanya Seaman MD CHEMISTRY ORDERABL ES Performing Organization Address [facility] Co de Phone Number [facility] [place] [place] [address] * (ABNORMAL) Basic Metabolic Panel (non-fasting) (01/24/2023 2:56 AM EDT) Glucose 131 65 - 199 mg/dL [facility] Comment:Diabetes: >=200 mg/d L plus symptoms Blood Urea Nitrogen 80(H) 10 - 20 mg/dL [facility] Creatinine 5.46(H) 0.80 - 1.50 mg/dL [facility] Sodium 139 135 - 145 mmol/L [facility] Potassium 4.5 3.5 - 5.0 mmol/L [facility] Comment: Please note: ??Patients with WBC >100,000 may have falsely elevated Potassium levels. ??For accurate Potassium quantification in these patients send serum separator tube (gold top) for subsequent determinations. ??Contact the Clinical Chemistry Laboratory if there are any questions. Chloride 104 98 - 107 mmol/L [facility] Carbon Dioxide 21(L) 22 - 31 mmol/L [facility] Anion Gap 14 5 - 15 mmol/L [facility] Calcium 9.3 8.5 - 10.5 mg/dL [facility] Est Glomerular Filtration Rate 11(L) >=60 mL/min/1. 73 m?? [facility] Comment: This patient's estimated GFR [...] CHEMISTRY ORDERABL ES Performing Organization Address [facility] Co de Phone Number [facility] [place] [address] * POCT Glucose (01/23/2023 9:16 PM EDT) Glucose, POC 150 65 - 199 mg/dL [facility] Comment: Supplemental ranges: <140 mg/dL before meals <180 mg/dL all other times of the day Blood 01/23/2023 9:16 PM EDT 01/23/2023 9:16 PM EDT Mendel Luna MD POINT OF CARE TEST O RDERABLES Performing Organization Address City/[facility]/ZIP Co de Phone Number [facility] [place] [place] [address] * (ABNORMAL) POCT Glucose (01/23/2023 3:13 PM EDT) Glucose, POC 246(H) 65 - 199 mg/dL [facility] Comment: Supplemental ranges: <140 mg/dL before meals <180 mg/dL all other times of the day Blood 01/23/2023 3:13 PM EDT 01/23/2023 3:13 PM EDT Mendel Luna MD POINT OF CARE TEST O RDERABLES Performing Organization Address City/[facility]/ZIP Co de Phone Number [facility] [place] [address] * POCT Glucose (01/23/2023 11:06 AM EDT) Glucose, POC 163 65 - 199 mg/dL [facility] Comment: Supplemental ranges: <140 mg/dL before meals <180 mg/dL all other times of the day Blood 01/23/2023 11:0 6 AM EDT 01/23/2023 11:06 AM EDT Mendel Luna MD POINT OF CARE TEST O RDERABLES Performing Organization Address [facility] Co de Phone Number [facility] [place] [address] * POCT Glucose (01/23/2023 7:46 AM EDT) Glucose, POC 165 65 - 199 mg/dL [facility] Comment: Supplemental ranges: <140 mg/dL before meals <180 mg/dL all other times of the day Blood 01/23/2023 7:46 AM EDT 01/23/2023 7:46 AM EDT Mendel Luna MD POINT OF CARE TEST O RDERABLES Performing Organization Address City/[facility] Co de Phone Number [facility] [place] [place] [address] * Differential, Automated (01/23/2023 2:53 AM EDT) Neutrophil % 72.0 % [facility] Neutrophil Absolute 5.86 1.70 - 6.10 x10(3)/[facility] LABORATORY Lymph % 13.8 % [facility] Lymphocytes Abs 1.1 0.9 - 3.2 x10(3)/[facility] LABORATORY Monocyte % 9.2 % [facility] Monocyte Abs 0.8 0.3 - 0.9 x10(3)/[facility] Eos % 4.1 % [facility] Eosinophils Abs 0.3 0.0 - 0.4 x10(3)/[facility] LABORATORY Basophil % 0.7 % [facility] Baso Absolute 0.1 0.0 - 0.1 x10(3)/[facility] LABORATORY Immature Gran % 0.20 % [facility] Comment: Immature granulocytes(IG's)percentage and absolute count will include metamyelocytes, myelocytes, and promyelocytes. Blood smears from CBCs yielding IG's will be scanned manually for concordance. If this scan disagrees with the automated IG or if promyelocytes are noted, a manual differential will be performed. Immature Gran Absolute 0.02 0.00 - 0.04 x10(3)/[facility] LAB[facility] Blood 01/23/2023 2:53 AM EDT 01/23/2023 3:05 AM EDT Narrative Resulting Agency Comment Spec In Lab Kyle Mckeon MD HEMATOLOGY ORDERABLE S Performing Organization Address City/State/[facility] Co de Phone Number [facility] [place] [address] * (ABNORMAL) Hemogram (01/23/2023 2:53 AM EDT) White Blood Cell 8.1 4.0 - 9.5 x10(3)/mc L [facility] Red Blood Cell 3.41(L) 4.58 - 5.54 x10(6)/mc L [facility] Hemoglobin 10.4(L) 13.7 - 16.5 g/dL [facility] Hematocrit 30.7(L) 40.5 - 48.5 % [facility] Mean Cell Volume 90.0 82.9 - 93.1 fL [facility] Mean Cell Hemoglobin 30.5 27.5 - 32.1 pg [facility] Mean Cell Hemoglobin Concentration 33.9 32.0 - 35.7 g/dL [facility] Platelet 182 145 - 357 x10(3)/mc L [facility] RDW Standard Deviation 42.3 36.0 - 45.0 fL [facility] RDW coefficient of variation 13.0 11.4 - 13.8 % [facility] Mean Platelet Volume 12.1 7.6 - 12.9 fL [facility] NRBC% auto 0.0 % [facility] NRBC Absolute 0.000 0.000 - 0.000 x10(3)/mc L [facility] Blood 01/23/2023 2:53 AM EDT 01/23/2023 3:05 AM EDT Narrative Resulting Agency Comment Spec In Lab Kyle Mckeon MD HEMATOLOGY ORDERABLE S Performing Organization Address [facility] Co de Phone Number [facility] [place] [address] * (ABNORMAL) Phosphorus (01/23/2023 2:53 AM EDT) Phosphorus 5.8(H) 2.5 - 4.5 mg/dL [facility] Blood 01/23/2023 2:53 AM EDT 01/23/2023 3:05 AM EDT Narrative Resulting Agency Comment Spec In Lab Tanya Seaman MD CHEMISTRY ORDERABL ES Performing Organization Address [facility] de Phone Number [facility] [place] [address] * Magnesium (01/23/2023 2:53 AM EDT) Magnesium 0.96 0.69 - 1.07 mmol/L [facility] Blood 01/23/2023 2:53 AM EDT 01/23/2023 3:05 AM EDT Narrative Resulting Agency Comment Spec In Lab Tanya Seaman MD CHEMISTRY ORDERABL ES Performing Organization Address [facility] de Phone Number [facility] [place] [place] [address] * (ABNORMAL) Basic Metabolic Panel (non-fasting) (01/23/2023 2:53 AM EDT) Glucose 131 65 - 199 mg/dL [facility] Comment:Diabetes: >=200 mg/d L plus symptoms Blood Urea Nitrogen 81(H) 10 - 20 mg/dL [facility] Creatinine 5.47(H) 0.80 - 1.50 mg/dL [facility] Sodium 139 135 - 145 mmol/L [facility] Potassium 4.4 3.5 - 5.0 mmol/L [facility] Comment: Please note: ??Patients with WBC >100,000 may have falsely elevated Potassium levels. ??For accurate Potassium quantification in these patients send serum separator tube (gold top) for subsequent determinations. ??Contact the Clinical Chemistry Laboratory if there are any questions. Chloride 105 98 - 107 mmol/L [facility] Carbon Dioxide 20(L) 22 - 31 mmol/L [facility] Anion Gap 14 5 - 15 mmol/L [facility] Calcium 9.2 8.5 - 10.5 mg/dL [facility] Est Glomerular Filtration Rate 11(L) >=60 mL/min/1. 73 m?? [facility] Comment: This patient's estimated GFR was [...] Lab Tanya Seaman MD CHEMISTRY ORDERABL ES [facility] [place] [address] * (ABNORMAL) POCT Glucose (01/22/2023 7:28 PM EDT) Glucose, POC 237(H) 65 - 199 mg/dL [facility] Comment: Supplemental ranges: <140 mg/dL before meals <180 mg/dL all other times of the day Blood 01/22/2023 7:28 PM EDT 01/22/2023 7:28 PM EDT Mendel Luna MD POINT OF CARE TEST O RDERABLES Performing Organization Address [facility] Co de Phone Number [facility] [place] [place] [address] * POCT Glucose (01/22/2023 5:30 PM EDT) Glucose, POC 130 65 - 199 mg/dL [facility] Comment: Supplemental ranges: <140 mg/dL before meals <180 mg/dL all other times of the day Blood 01/22/2023 5:30 PM EDT 01/22/2023 5:30 PM EDT Mendel Luna MD POINT OF CARE TEST O RDERABLES Performing Organization Address [facility] de Phone Number [facility] [place] [place] [address] * CARDIAC CATHETERIZATION (01/22/2023 5:10 PM EDT) Anatomical Region Laterality Modality Other Narrative 01/22/2023 5:07 PM EDT ?[facility] ? Cardiac Catheterization/Intervention Report ? Patient Name: Miguel Sanchez ? Procedure Date: 01/22/2023 ? A #: [id number] ? Primary Physician: Morris, Layton P ? Case #: [id number] ? File Name: [id number] ? Catheterization Order Number: [id number] ? [facility] ? Final Report [place], [place] ? Patient Name: ? Miguel Cook ? ID#: ?[id number] ? : ?1955 ? Procedure Date: ? January 22, 2023 ?Case #: ? [id number] ? Room: ? 5 ? Case Physician: ? Layton Morris M.D. ?Start: ?16:35 ?Fellow: ? Mario Alberto Glasgow M.D. ? Admission: ??01/18/2023 ? Referring Physician: ??Elham Dyeks M.D. ? Procedures: ?* Right Heart Catheterization [...] procedure was Urgent. 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 Chest pain symptom assessment [...] Procedure Note Layton Morris MD - 01/22/2023 [facility] Cardiac Catheterization/Intervention Report Patient Name: Miguel Sanchez Procedure Date: 01/22/2023 A #: [id number] Primary Physician: Layton Morris Case #: [id number] File Name: [id number] Catheterization Order Number: [id number] [facility] FinalReport [place], [place] Patient Name: Miguel Sanchez ID#:[id number] :1955 Procedure Date: January 22, 2023 Case [...] patient was designated as ASA Class III. [facility]: Mildly Frail. Diagnostic Tests: Medications Prior to Procedure: Angiotensin Converting Enzyme Inhibitor, Aspirin, Beta Blockerand Statin. Indications for Diagnostic Cath: The priority of the diagnostic procedure was Urgent. 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 Chest pain symptom assessmentwas: [...] Glucose, POC 165 65 - 199 mg/dL [facility] Comment: Supplemental ranges: <140 mg/dL before meals <180 mg/dL all other times of the day Blood 01/22/2023 12:3 5 PM EDT 01/22/2023 12:35 PM EDT Mendel Luna MD POINT OF CARE TEST O RDERAAMRCY Performing Organization Address City/[facility]/ZIP Co de Phone Number [facility] [place] [place] [address] * POCT Glucose (01/22/2023 7:52 AM EDT) Glucose, POC 145 65 - 199 mg/dL [facility] Comment: Supplemental ranges: <140 mg/dL before meals <180 mg/dL all other times of the day Blood 01/22/2023 7:52 AM EDT 01/22/2023 7:52 AM EDT Chris Lim MD POINT OF CARE TEST O RDSHANELLE [facility] [place] [address] * Differential, Automated (01/22/2023 2:42 AM EDT) Neutrophil % 73.7 % [facility] Neutrophil Absolute 6.10 1.70 - 6.10 x10(3)/[facility] LAB[facility]ORY Lymph % 12.5 % [facility] Lymphocytes Abs 1.0 0.9 - 3.2 x10(3)/[facility] LABOR[facility]ORY Monocyte % 8.8 % [facility] Monocyte Abs 0.7 0.3 - 0.9 x10(3)/[facility] Eos % 4.1 % [facility] Eosinophils Abs 0.3 0.0 - 0.4 x10(3)/[facility] LABOR[facility]ORY Basophil % 0.7 % [facility] Baso Absolute 0.1 0.0 - 0.1 x10(3)/[facility] LABORATORY Immature Gran % 0.20 % [facility] Comment: Immature granulocytes(IG's)percentage and absolute count will include metamyelocytes, myelocytes, and promyelocytes. Blood smears from CBCs yielding IG's will be scanned manually for concordance. If this scan disagrees with the automated IG or if promyelocytes are noted, a manual differential will be performed. Immature Gran Absolute 0.02 0.00 - 0.04 x10(3)/[facility] LAB[facility] Blood 01/22/2023 2:42 AM EDT 01/22/2023 3:03 AM EDT Narrative Resulting Agency Comment Spec In Lab Kyle Mckeon MD HEMATOLOGY ORDERABLE S [facility] [place] [address] * (ABNORMAL) Hemogram (01/22/2023 2:42 AM EDT) White Blood Cell 8.3 4.0 - 9.5 x10(3)/mc L [facility] Red Blood Cell 3.41(L) 4.58 - 5.54 x10(6)/mc L [facility] Hemoglobin 10.3(L) 13.7 - 16.5 g/dL [facility] Hematocrit 30.8(L) 40.5 - 48.5 % [facility] Mean Cell Volume 90.3 82.9 - 93.1 fL [facility] Mean Cell Hemoglobin 30.2 27.5 - 32.1 pg [facility] Mean Cell Hemoglobin Concentration 33.4 32.0 - 35.7 g/dL [facility] Platelet 183 145 - 357 x10(3)/mc L [facility] RDW Standard Deviation 42.0 36.0 - 45.0 fL [facility] RDW coefficient of variation 12.9 11.4 - 13.8 % [facility] Mean Platelet Volume 12.1 7.6 - 12.9 fL [facility] NRBC% auto 0.0 % [facility] NRBC Absolute 0.000 0.000 - 0.000 x10(3)/mc L [facility] Blood 01/22/2023 2:42 AM EDT 01/22/2023 3:03 AM EDT Narrative Resulting Agency Comment Spec In Lab Kyle Mckeon MD HEMATOLOGY ORDERABLE S Performing Organization Address [facility] Co de Phone Number [facility] [place] [place] [address] * (ABNORMAL) Phosphorus (01/22/2023 2:42 AM EDT) Phosphorus 5.8(H) 2.5 - 4.5 mg/dL [facility] Blood 01/22/2023 2:42 AM EDT 01/22/2023 3:03 AM EDT Narrative Resulting Agency Comment Spec In Lab Tanya Seaman MD CHEMISTRY ORDERABL ES Performing Organization Address [facility] de Phone Number [facility] [place] [place] [address] * Magnesium (01/22/2023 2:42 AM EDT) Magnesium 0.97 0.69 - 1.07 mmol/L [facility] Blood 01/22/2023 2:42 AM EDT 01/22/2023 3:03 AM EDT Narrative Resulting Agency Comment Spec In Lab Tanya Seaman MD CHEMISTRY ORDERABL ES Performing Organization Address [facility] [place]/[facility] Co de Phone Number [facility] [place] [place] [address] * (ABNORMAL) Basic Metabolic Panel (non-fasting) (01/22/2023 2:42 AM EDT) Glucose 153 65 - 199 mg/dL [facility] Comment:Diabetes: >=200 mg/d L plus symptoms Blood Urea Nitrogen 79(H) 10 - 20 mg/dL [facility] Creatinine 5.86(H) 0.80 - 1.50 mg/dL [facility] Sodium 138 135 - 145 mmol/L [facility] Potassium 4.2 3.5 - 5.0 mmol/L [facility] Comment: Please note: ??Patients with WBC >100,000 may have falsely elevated Potassium levels. ??For accurate Potassium quantification in these patients send serum separator tube (gold top) for subsequent determinations. ??Contact the Clinical Chemistry Laboratory if there are any questions. Chloride 104 98 - 107 mmol/L [facility] Carbon Dioxide 20(L) 22 - 31 mmol/L [facility] Anion Gap 14 5 - 15 mmol/L [facility] Calcium 9.2 8.5 - 10.5 mg/dL [facility] Est Glomerular Filtration Rate 10(L) >=60 mL/min/1. 73 m?? [facility] Comment: This patient's estimated GFR was [...] Lab Tanya Seaman MD CHEMISTRY ORDERABL ES [facility] [place] [address] * C3 Complement (01/22/2023 2:42 AM EDT) Complement C3 126 90 - 180 mg/dL [facility] Blood 01/22/2023 2:42 AM EDT 01/22/2023 3:03 AM EDT Narrative Resulting Agency Comment Spec In Lab Chris Lim MD CHEMISTRY ORDERABLES Performing Organization Address [facility] Co de Phone Number [facility] [place] [address] * POCT Glucose (01/21/2023 6:41 PM EDT) Glucose, POC 199 65 - 199 mg/dL [facility] Comment: Supplemental ranges: <140 mg/dL before meals <180 mg/dL all other times of the day Blood 01/21/2023 6:41 PM EDT 01/21/2023 6:41 PM EDT Chris Lim MD POINT OF CARE TEST O RDERABLES Performing Organization Address [facility] Co de Phone Number [facility] [place] [place] [address] * POCT Glucose (01/21/2023 3:57 PM EDT) Glucose, POC 125 65 - 199 mg/dL [facility] Comment: Supplemental ranges: <140 mg/dL before meals <180 mg/dL all other times of the day Blood 01/21/2023 3:57 PM EDT 01/21/2023 3:57 PM EDT Chris Lim MD POINT OF CARE TEST O RDERABLES Performing Organization Address [facility] Co de Phone Number [facility] [place] [address] * (ABNORMAL) POCT Glucose (01/21/2023 11:32 AM EDT) Glucose, POC 249(H) 65 - 199 mg/dL [facility] Comment: Supplemental ranges: <140 mg/dL before meals <180 mg/dL all other times of the day Blood 01/21/2023 11:3 2 AM EDT 01/21/2023 11:32 AM EDT Chris Lim MD POINT OF CARE TEST O RDERABLES Performing Organization Address City/[facility]/ZIP Co de Phone Number [facility] [place] [address] * (ABNORMAL) POCT Glucose (01/21/2023 9:38 AM EDT) Glucose, POC 233(H) 65 - 199 mg/dL [facility] Comment: Supplemental ranges: <140 mg/dL before meals <180 mg/dL all other times of the day Blood 01/21/2023 9:38 AM EDT 01/21/2023 9:38 AM EDT Chris Lim MD POINT OF CARE TEST O RDERABLES Performing Organization Address [facility] Co de Phone Number [facility] [place] [address] * EKG 12 Lead (01/21/2023 8:33 AM EDT) Ventricular rate 74 BPM MUSE SYSTEM Atrial Rate 74 BPM MUSE SYSTEM P-R Interval 180 ms MUSE SYSTEM QRS Duration 126 ms MUSE SYSTEM Q-T Interval 454 ms MUSE SYSTEM QTC Calculated (Bezet) 503 ms MUSE SYSTEM Calculated P [place] 32 degrees MUSE SYSTEM Calculated R [place] -35 degrees MUSE SYSTEM Calculated T [place] 97 degrees MUSE SYSTEM INTERPRETATION Normal sinus rhythm Left axis deviation Non-specific intra-ventricu lar conduction block Nonspecific T wave abnormality Abnormal ECG When compared with ECG of 18-JAN-2023 18:52, No significant change was found Confirmed by fellow Lacey Oliveros ([id number]) on 01/23/2023 10:03:20 AM Confirmed by MD Gonzalez David ([id number]) on 01/24/2023 8:22:03 AM MUSE SYSTEM 01/21/2023 8:33 AM EDT 01/24/2023 8:22 AM EDT Tanya Seaman MD ECG ORDERABLES Performing Organization Address City/[facility]/ZIP Co de Phone Number MUSE SYSTEM * POCT Glucose (01/21/2023 8:05 AM EDT) Glucose, POC 178 65 - 199 mg/dL [facility] Comment: Supplemental ranges: <140 mg/dL before meals <180 mg/dL all other times of the day Blood 01/21/2023 8:05 AM EDT 01/21/2023 8:05 AM EDT Chris Lim MD POINT OF CARE TEST O RDERABLES Performing Organization Address [facility]/ZIP Co de Phone Number [facility] [place] [address] * Differential, Automated (01/21/2023 2:42 AM EDT) Neutrophil % 70.7 % [facility] Neutrophil Absolute 5.75 1.70 - 6.10 x10(3)/[facility] Lymph % 14.5 % [facility] Lymphocytes Abs 1.2 0.9 - 3.2 x10(3)/[facility] Monocyte % 9.1 % [facility] Monocyte Abs 0.7 0.3 - 0.9 x10(3)/[facility] Eos % 4.6 % [facility] Eosinophils Abs 0.4 0.0 - 0.4 x10(3)/[facility] Basophil % 0.7 % [facility] Baso Absolute 0.1 0.0 - 0.1 x10(3)/[facility] LAB[facility] Immature Gran % 0.40 % [facility] Comment: Immature granulocytes(IG's)percentage and absolute count will include metamyelocytes, myelocytes, and promyelocytes. Blood smears from CBCs yielding IG's will be scanned manually for concordance. If this scan disagrees with the automated IG or if promyelocytes are noted, a manual differential will be performed. Immature Gran Absolute 0.03 0.00 - 0.04 x10(3)/[facility] Blood 01/21/2023 2:42 AM EDT 01/21/2023 2:59 AM EDT Narrative Resulting Agency Comment Spec In Lab Kyle Mckeon MD HEMATOLOGY ORDERABLE S Performing Organization Address City/[facility] Co de Phone Number [facility] [place] [address] * (ABNORMAL) Hemogram (01/21/2023 2:42 AM EDT) White Blood Cell 8.1 4.0 - 9.5 x10(3)/mc L [facility] Red Blood Cell 3.59(L) 4.58 - 5.54 x10(6)/ L [facility] Hemoglobin 11.1(L) 13.7 - 16.5 g/dL [facility] Hematocrit 32.4(L) 40.5 - 48.5 % [facility] Mean Cell Volume 90.3 82.9 - 93.1 fL [facility] Mean Cell Hemoglobin 30.9 27.5 - 32.1 pg [facility] Mean Cell Hemoglobin Concentration 34.3 32.0 - 35.7 g/dL [facility] Platelet 202 145 - 357 x10(3)/ L [facility] RDW Standard Deviation 42.5 36.0 - 45.0 fL [facility] RDW coefficient of variation 12.8 11.4 - 13.8 % [facility] Mean Platelet Volume 12.3 7.6 - 12.9 fL [facility] NRBC% auto 0.0 % [facility] NRBC Absolute 0.000 0.000 - 0.000 x10(3)/ L [facility] Blood 01/21/2023 2:42 AM EDT 01/21/2023 2:59 AM EDT Narrative Resulting Agency Comment Spec In Lab Kyle Mckeon MD HEMATOLOGY ORDERABLE S [facility] [place] [address] * (ABNORMAL) Phosphorus (01/21/2023 2:42 AM EDT) Phosphorus 5.3(H) 2.5 - 4.5 mg/dL [facility] Blood 01/21/2023 2:42 AM EDT 01/21/2023 2:58 AM EDT Narrative Resulting Agency Comment Spec In Lab Tanya Seaman MD CHEMISTRY ORDERABL ES Performing Organization Address City/[facility]/ZIP Co de Phone Number [facility] [place] [address] * Magnesium (01/21/2023 2:42 AM EDT) Magnesium 0.99 0.69 - 1.07 mmol/L [facility] Blood 01/21/2023 2:42 AM EDT 01/21/2023 2:58 AM EDT Narrative Resulting Agency Comment Spec In Lab Tanya Seaman MD CHEMISTRY ORDERABL ES Performing Organization Address [facility] de Phone Number [facility] [place] [address] * (ABNORMAL) Basic Metabolic Panel (non-fasting) (01/21/2023 2:42 AM EDT) Glucose 120 65 - 199 mg/dL [facility] Comment:Diabetes: >=200 mg/d L plus symptoms Blood Urea Nitrogen 72(H) 10 - 20 mg/dL [facility] Creatinine 5.70(H) 0.80 - 1.50 mg/dL [facility] Sodium 140 135 - 145 mmol/L [facility] Potassium 4.2 3.5 - 5.0 mmol/L [facility] Comment: Please note: ??Patients with WBC >100,000 may have falsely elevated Potassium levels. ??For accurate Potassium quantification in these patients send serum separator tube (gold top) for subsequent determinations. ??Contact the Clinical Chemistry Laboratory if there are any questions. Chloride 100 98 - 107 mmol/L [facility] Carbon Dioxide 20(L) 22 - 31 mmol/L [facility] Anion Gap 20(H) 5 - 15 mmol/L [facility] Calcium 9.3 8.5 - 10.5 mg/dL [facility] Est Glomerular Filtration Rate 10(L) >=60 mL/min/1. 73 m?? [facility] Comment: This patient's estimated GFR [...] MD CHEMISTRY ORDERABL ES Performing Organization Address City/[facility]/ZIP Co de Phone Number [facility] [place] [address] * POCT Glucose (01/20/2023 7:45 PM EDT) Glucose, POC 158 65 - 199 mg/dL [facility] Comment: Supplemental ranges: <140 mg/dL before meals <180 mg/dL all other times of the day Blood 01/20/2023 7:45 PM EDT 01/20/2023 7:45 PM EDT Chris Lim MD POINT OF CARE TEST O RDERABLES Performing Organization Address [facility]/ZIP Co de Phone Number [facility] [place] [address] * POCT Glucose (01/20/2023 4:38 PM EDT) Glucose, POC 96 65 - 199 mg/dL [facility] Comment: Supplemental ranges: <140 mg/dL before meals <180 mg/dL all other times of the day Blood 01/20/2023 4:38 PM EDT 01/20/2023 4:38 PM EDT Chris Lim MD POINT OF CARE TEST O RDERABLES Performing Organization Address City/[facility]/ZIP Co de Phone Number [facility] [place] [address] * POCT Glucose (01/20/2023 4:14 PM EDT) Pathologist [facility] Glucose, POC 101 65 - 199 mg/dL [facility] Comment: Supplemental ranges: <140 mg/dL before meals <180 mg/dL all other times of the day Blood 01/20/2023 4:14 PM EDT 01/20/2023 4:14 PM EDT Chris Lim MD POINT OF CARE TEST O RDERABLES [facility] [place] [address] * Hepatitis C Antibody (01/20/2023 3:23 PM EDT) [facility] Hepatitis C Antibody Negative Negative [facility] Blood 01/20/2023 3:23 PM EDT 01/20/2023 3:28 PM EDT Narrative Resulting Agency Comment Spec In Lab Austin Sosa MD CHEMISTRY ORDERABLES Performing Organization Address [facility] Co de Phone Number [facility] [place] [address] * Hepatitis B Core Antibody, Total (01/20/2023 3:23 PM EDT) [facility] Hepatitis B Core Antibody Negative Negative [facility] Blood 01/20/2023 3:23 PM EDT 01/20/2023 3:28 PM EDT Narrative Resulting Agency Comment Spec In Lab Chris Lim MD CHEMISTRY ORDERABLES Performing Organization Address [facility] Co de Phone Number [facility] [place] [address] * Hepatitis B Surface Antibody (01/20/2023 3:23 PM EDT) Pathologist [facility] Hepatitis B Surface Antibody, Quantitative <3.5 IU/L [facility] Comment: HepB Surface Ab Quant: Unvaccinated: < 8.5 IU/L Vaccinated: >= 11.5 IU/L Hepatitis B Surface Antibody Negative [facility] Comment: Patient is presumed to be not vaccinated or immune to HBV infection. Expected Results: Vaccinated: Positive Unvaccinated: Negative Blood 01/20/2023 3:23 PM EDT 01/20/2023 3:28 PM EDT Narrative Resulting Agency Comment Spec In Lab Chris Lim MD CHEMISTRY ORDERABLES Performing Organization Address [facility]/ZIP Co de Phone Number [facility] [place] [address] * HIV Screen, 4th Generation ([facility]/CGP/APD/NLH) (01/20/2023 3:23 PM EDT) Pathologist [facility] HIV Ab/Ag Screen Negative Negative [facility] Comment: This 4th Generation HIV test [...] HIV Comment Low Risk of HIV Infection [facility] Blood 01/20/2023 3:23 PM EDT 01/20/2023 3:28 PM EDT Narrative Resulting Agency Comment Spec In Lab Chris Lim MD CHEMISTRY ORDERABLES Performing Organization Address [facility] Co de Phone Number [facility] [place] [address] * (ABNORMAL) POCT Glucose (01/20/2023 11:33 AM EDT) Glucose, POC 206(H) 65 - 199 mg/dL [facility] Comment: Supplemental ranges: <140 mg/dL before meals <180 mg/dL all other times of the day Blood 01/20/2023 11:3 3 AM EDT 01/20/2023 11:33 AM EDT Chris Lim MD POINT OF CARE TEST O RDERABLES Performing Organization Address [facility] Co de Phone Number [facility] [place] [address] * POCT Glucose (01/20/2023 7:24 AM EDT) Glucose, POC 152 65 - 199 mg/dL [facility] Comment: Supplemental ranges: <140 mg/dL before meals <180 mg/dL all other times of the day Blood 01/20/2023 7:24 AM EDT 01/20/2023 7:24 AM EDT Chris Lim MD POINT OF CARE TEST O RDERABLES Performing Organization Address City/[facility]/ZIP Co de Phone Number [facility] [place] [address] * Immunoglobulins, Quantitative (01/20/2023 3:26 AM EDT) [facility] Immunoglobulin G 880 700 - 1,600 mg/dL [facility] Comment: Pediatric Reference Intervals obtained from the Caliper Reference Interval project. http://www.Project W[employer].ca/caliperproject/index.html IgA 286 70 - 400 mg/dL [facility] IgM 72 40 - 230 mg/dL [facility] Blood Venous Draw / Unknown 01/20/2023 3:26 AM EDT 01/20/2023 3:44 AM EDT Narrative Resulting Agency Comment Spec In Lab Deonte Lugo MD CHEMISTRY ORDERABLE S Performing Organization Address [facility] Co de Phone Number [facility] [place] [address] * Immunofixation Electrophoresis (01/20/2023 3:26 AM EDT) Immunofixation Interpretation See Note [facility] Comment: No specific abnormality observed. Dr. Arnulfo Moore 01/23/2023 See scanned report. Blood Venous Draw / Unknown 01/20/2023 3:26 AM EDT 01/20/2023 3:44 AM EDT Narrative Resulting Agency Comment Spec In Lab Deonte Lugo MD CHEMISTRY ORDERABLE S [facility] [place] [address] * Protein Electrophoresis, serum (01/20/2023 3:26 AM EDT) Total Prot Electrophoresis 6.5 6.1 - 8.0 g/dL [facility] Albumin Electrophoresis 4.11 3.20 - 5.20 g/dL [facility] Alpha 1 Globulin 0.25 0.10 - 0.30 g/dL [facility] Alpha 2 Globulin 0.75 0.40 - 0.90 g/dL [facility] Beta Globulin 0.68 0.50 - 1.00 g/dL [facility] Gamma Globulin 0.71 0.50 - 1.30 g/dL [facility] M1 Band Comments Below None Detected [facility] SPEP Comments See Note [facility] Comment: Serum protein electrophoresis (PEP) shows a band that is a possible paraprotein. Immunofixation (DOROTEO) and quantitative immunoglobulin (MEGHAN) testing will be performed on this sample to verify that it is a monoclonal immunoglobulin. Blood Venous Draw / Unknown 01/20/2023 3:26 AM EDT 01/20/2023 3:44 AM EDT Narrative Resulting Agency Comment Spec In Lab Deonte Lugo MD CHEMISTRY ORDERABLE S [facility] [place] [address] * C4 Complement (01/20/2023 3:26 AM EDT) Complement C4 31 10 - 40 mg/dL [facility] Blood Venous Draw / Unknown 01/20/2023 3:26 AM EDT 01/20/2023 3:44 AM EDT Narrative Resulting Agency Comment Spec In Lab Deonte Lugo MD CHEMISTRY ORDERABLE S [facility] [place] [address] * (ABNORMAL) Free Light Chains, Serum (01/20/2023 3:26 AM EDT) Basye Free Light Chain 8.16(H) 0.72 - 2.75 mg/dL [facility] Lambda Free Light Chain 4.53(H) 0.57 - 2.15 mg/dL [facility] Basye/Lambda FLC Ratio 1.8013 0.4000 - 2.5800 [facility] Blood Venous Draw / Unknown 01/20/2023 3:26 AM EDT 01/20/2023 3:44 AM EDT Narrative Resulting Agency Comment Spec In Lab Deonte Lugo MD CHEMISTRY ORDERABLE S [facility] [place] [address] * Differential, Automated (01/20/2023 3:26 AM EDT) Pathologist [facility] Neutrophil % 75.0 % [facility] Neutrophil Absolute 6.04 1.70 - 6.10 x10(3)/[facility] LAB[facility] Lymph % 12.2 % [facility] Lymphocytes Abs 1.0 0.9 - 3.2 x10(3)/[facility] Monocyte % 8.6 % [facility] Monocyte Abs 0.7 0.3 - 0.9 x10(3)/[facility] Eos % 3.3 % [facility] Eosinophils Abs 0.3 0.0 - 0.4 x10(3)/[facility]ORY Basophil % 0.7 % [facility] Baso Absolute 0.1 0.0 - 0.1 x10(3)/[facility] Immature Gran % 0.20 % [facility] Comment: Immature granulocytes(IG's)percentage and absolute count will include metamyelocytes, myelocytes, and promyelocytes. Blood smears from CBCs yielding IG's will be scanned manually for concordance. If this scan disagrees with the automated IG or if promyelocytes are noted, a manual differential will be performed. Immature Gran Absolute 0.02 0.00 - 0.04 x10(3)/[facility] Blood 01/20/2023 3:26 AM EDT 01/20/2023 3:42 AM EDT Narrative Resulting Agency Comment Spec In Lab Kyle Mckeon MD HEMATOLOGY ORDERABLE S [facility] [place] [address] * (ABNORMAL) Hemogram (01/20/2023 3:26 AM EDT) White Blood Cell 8.1 4.0 - 9.5 x10(3)/mc L [facility] Red Blood Cell 3.54(L) 4.58 - 5.54 x10(6)/mc L [facility] Hemoglobin 10.8(L) 13.7 - 16.5 g/dL [facility] Hematocrit 32.5(L) 40.5 - 48.5 % [facility] Mean Cell Volume 91.8 82.9 - 93.1 fL [facility] Mean Cell Hemoglobin 30.5 27.5 - 32.1 pg [facility] Mean Cell Hemoglobin Concentration 33.2 32.0 - 35.7 g/dL [facility] Platelet 202 145 - 357 x10(3)/mc L [facility] RDW Standard Deviation 42.9 36.0 - 45.0 fL [facility] RDW coefficient of variation 12.7 11.4 - 13.8 % [facility] Mean Platelet Volume 11.6 7.6 - 12.9 fL [facility] NRBC% auto 0.0 % [facility] NRBC Absolute 0.000 0.000 - 0.000 x10(3)/mc L [facility] Blood 01/20/2023 3:26 AM EDT 01/20/2023 3:42 AM EDT Narrative Resulting Agency Comment Spec In Lab Kyle Mckeon MD HEMATOLOGY ORDERABLE S [facility] [place] [address] * (ABNORMAL) Phosphorus (01/20/2023 3:26 AM EDT) Phosphorus 4.7(H) 2.5 - 4.5 mg/dL [facility] Blood 01/20/2023 3:26 AM EDT 01/20/2023 3:42 AM EDT Narrative Resulting Agency Comment Spec In Lab Tanya Seaman MD CHEMISTRY ORDERABL ES Performing Organization Address City/[facility]/ZIP Co de Phone Number [facility] [place] [address] * Magnesium (01/20/2023 3:26 AM EDT) Magnesium 0.95 0.69 - 1.07 mmol/L [facility] Blood 01/20/2023 3:26 AM EDT 01/20/2023 3:42 AM EDT Narrative Resulting Agency Comment Spec In Lab Tanya Seaman MD CHEMISTRY ORDERABL ES Performing Organization Address [facility] Co de Phone Number [facility] [place] [address] * (ABNORMAL) Basic Metabolic Panel (non-fasting) (01/20/2023 3:26 AM EDT) Glucose 109 65 - 199 mg/dL [facility] Comment:Diabetes: >=200 mg/d L plus symptoms Blood Urea Nitrogen 67(H) 10 - 20 mg/dL [facility] Creatinine 5.79(H) 0.80 - 1.50 mg/dL [facility] Sodium 139 135 - 145 mmol/L [facility] Potassium 4.5 3.5 - 5.0 mmol/L [facility] Comment: Please note: ??Patients with WBC >100,000 may have falsely elevated Potassium levels. ??For accurate Potassium quantification in these patients send serum separator tube (gold top) for subsequent determinations. ??Contact the Clinical Chemistry Laboratory if there are any questions. Chloride 102 98 - 107 mmol/L [facility] Carbon Dioxide 20(L) 22 - 31 mmol/L [facility] Anion Gap 17(H) 5 - 15 mmol/L [facility] Calcium 8.8 8.5 - 10.5 mg/dL [facility] Est Glomerular Filtration Rate 10(L) >=60 mL/min/1. 73 m?? [facility] Comment: This patient's estimated GFR was [...] CHEMISTRY ORDERABL ES Performing Organization Address [facility] Co de Phone Number [facility] [place] [address] * (ABNORMAL) Ferritin (01/20/2023 3:26 AM EDT) Ferritin 478(H) 30 - 400 ng/mL [facility] Comment: Pediatric reference ranges not verified at [facility], interpret with caution. Reference ranges for females greater than 50 years of age approach values for men, i.e., 30-400 ng/mL. Blood 01/20/2023 3:26 AM EDT 01/20/2023 3:42 AM EDT Narrative Resulting Agency Comment Spec In Lab Sixto Morrow MD CHEMISTRY ORDERABLES Performing Organization Address City/[facility]/ZIP Co de Phone Number [facility] [place] [address] * (ABNORMAL) Iron and TIBC (01/20/2023 3:26 AM EDT) Iron 68 45 - 160 mcg/dL [facility] TIBC 229(L) 250 - 450 mcg/dL [facility] Iron Saturation 30 20 - 50 % [facility] Blood 01/20/2023 3:26 AM EDT 01/20/2023 3:42 AM EDT Narrative Resulting Agency Comment Spec In Lab Sixto Morrow MD CHEMISTRY ORDERABLES Performing Organization Address [facility] de Phone Number [facility] [place] [address] * (ABNORMAL) PTH (01/20/2023 3:26 AM EDT) Parathyroid Hormone 401(H) 15 - 65 pg/mL [facility] Blood 01/20/2023 3:26 AM EDT 01/20/2023 3:42 AM EDT Narrative Resulting Agency Comment Spec In Lab Sixto Morrow MD CHEMISTRY ORDERABLES Performing Organization Address [facility] Number [facility] [place] [address] * (ABNORMAL) Vitamin D, 25-Hydroxy (01/20/2023 3:26 AM EDT) Vitamin D Total 25 OH 9(L) 21 - 100 ng/mL [facility] Vit D Interp Deficient [facility] Blood 01/20/2023 3:26 AM EDT 01/20/2023 3:42 AM EDT Narrative Resulting Agency Comment Spec In Lab Sixto Morrow MD CHEMISTRY ORDERABLES Performing Organization Address [facility] Phone Number [facility] [place] [address] * POCT Glucose (01/19/2023 9:33 PM EDT) Glucose, POC 112 65 - 199 mg/dL [facility] Comment: Supplemental ranges: <140 mg/dL before meals <180 mg/dL all other times of the day Blood 01/19/2023 9:33 PM EDT 01/19/2023 9:33 PM EDT Chris Lim MD POINT OF CARE TEST O RDERABLES Performing Organization Address [facility] Co de Phone Number [facility] [place] [address] * POCT Glucose (01/19/2023 4:37 PM EDT) Glucose, POC 175 65 - 199 mg/dL [facility] Comment: Supplemental ranges: <140 mg/dL before meals <180 mg/dL all other times of the day Blood 01/19/2023 4:37 PM EDT 01/19/2023 4:37 PM EDT Chris Lim MD POINT OF CARE TEST O RDERABLES [facility] [place] [address] * (ABNORMAL) Basic Metabolic Panel (non-fasting) (01/19/2023 2:15 PM EDT) Glucose 206(H) 65 - 199 mg/dL [facility] Comment:Diabetes: >=200 mg/d L plus symptoms Blood Urea Nitrogen 59(H) 10 - 20 mg/dL [facility] Creatinine 5.69(H) 0.80 - 1.50 mg/dL [facility] Sodium 140 135 - 145 mmol/L [facility] Potassium 4.4 3.5 - 5.0 mmol/L [facility] Comment: Please note: ??Patients with WBC >100,000 may have falsely elevated Potassium levels. ??For accurate Potassium quantification in these patients send serum separator tube (gold top) for subsequent determinations. ??Contact the Clinical Chemistry Laboratory if there are any questions. Chloride 102 98 - 107 mmol/L [facility] Carbon Dioxide 22 22 - 31 mmol/L [facility] Anion Gap 16(H) 5 - 15 mmol/L [facility] Calcium 9.3 8.5 - 10.5 mg/dL [facility] Est Glomerular Filtration Rate 10(L) >=60 mL/min/1. 73 m?? [facility] Comment: This patient's estimated GFR was [...] CHEMISTRY ORDERABL ES Performing Organization Address [facility] Co de Phone Number [facility] [place] [address] * POCT Glucose (01/19/2023 11:31 AM EDT) Glucose, POC 96 65 - 199 mg/dL [facility] Comment: Supplemental ranges: <140 mg/dL before meals <180 mg/dL all other times of the day Blood 01/19/2023 11:3 1 AM EDT 01/19/2023 11:31 AM EDT Chris Lim MD POINT OF CARE TEST O RDERABLES Performing Organization Address [facility] de Phone Number [facility] [place] [address] * (ABNORMAL) Basic Metabolic Panel (non-fasting) (01/19/2023 10:29 AM EDT) Glucose 87 65 - 199 mg/dL [facility] Comment:Diabetes: >=200 mg/d L plus symptoms Blood Urea Nitrogen 60(H) 10 - 20 mg/dL [facility] Creatinine 5.63(H) 0.80 - 1.50 mg/dL [facility] Sodium 143 135 - 145 mmol/L [facility] Potassium 4.4 3.5 - 5.0 mmol/L [facility] Comment: Please note: ??Patients with WBC >100,000 may have falsely elevated Potassium levels. ??For accurate Potassium quantification in these patients send serum separator tube (gold top) for subsequent determinations. ??Contact the Clinical Chemistry Laboratory if there are any questions. Chloride 107 98 - 107 mmol/L [facility] Carbon Dioxide 21(L) 22 - 31 mmol/L [facility] Anion Gap 15 5 - 15 mmol/L [facility] Calcium 9.1 8.5 - 10.5 mg/dL [facility] Est Glomerular Filtration Rate 10(L) >=60 mL/min/1. 73 m?? [facility] Comment: This patient's estimated GFR was [...] MD CHEMISTRY ORDERABL ES Performing Organization Address City/State/[facility] Co de Phone Number [facility] [place] [place] [address] * ECHO COMPLETE W CONTRAST (01/19/2023 8:59 AM EDT) Anatomical Region Laterality Modality Cardiac Other 01/19/2023 6:52 AM EDT Narrative 01/19/2023 11:43 AM EDT ? Echocardiogram Report Name: MIGUEL SANCHEZ ? Study Date: 01/19/2023 06:52 AMBP: 142/82 mmHg ? [facility] 1955 ? Height: 165 cm ? Account: [id number] Age: 67 yrs ? Weight: 110 kg Gender: Male ?BSA: 2.1 m2 Ordering Physician: TANYA SEAMAN Referring Physician: ELHAM DYKES Performed By: Cathleen Ware RDCS Reason For Study: Heart failure Interpreting Fellow: Martin Reyes. Exam Location: [facility]. Interpretation Summary Left ventricle is mildly dilated [...] ventricular systolic function has further decreased. Procedure Complete-22660. Satisfactory quality. Left Ventricle Left ventricle is [...] Date: 306:52 AMBP: 142/82 mmHg Patient Location: [id number] A : 1955 Height: 165 cm Account: [id number] Age: 67 yrs Weight: 110 kg Gender: Male BSA: 2.1 m2 Ordering Physician: TANYA SEAMAN Referring Physician: ELHAM DYKES Performed By: Cathleen Ware RDCS Reason For Study: Heart failure Interpreting Fellow: Martin Reyes. Exam Location: [facility]. Interpretation Summary Left ventricle is mildly dilated [...] left ventricular systolicfunction has further decreased. Procedure Complete-[id number]. Satisfactory quality. Left Ventricle Left ventricle is [...] who have questions, please contact the health customer care agent that requested your imaging first. ?Jimmie العراقي, Staff Physician Electronically Signed Final Report ?? 01/19/2023 08:47 am Narrative 01/19/2023 8:47 AM EDT Renal ? (Signed Final 01/19/2023 08:47 am) PATIENT INFO: ID #: ? [id number] ?: ??[birth year] (67 yrs)(M) Name: ? MIGUEL SANCHEZ ? Visit Date: 01/19/2023 08:27 am PERFORMED BY: Attending: ?Jimmie العراقي MD. Performed By: ? FaridaKary alcaraz RDMS Referred By: ?TANYA LONGORIAPEMISCOT MEM[facility] HE[facility] SYSTEMSMICHELLE Location: ? [place] SERVICE(S) PROVIDED: URETRO - Retroperitoneal Complete - [id number] ? [id number] INDICATIONS: New CLEM of unclear etiology RIGHT [...] 01/19/2023 08:47 am) PATIENT INFO: ID #: [id number] : [birth year] (67 yrs)(M) Name: MIGUEL SANCHEZ Visit Date: 01/19/2023 08:27 am PERFORMED BY: Attending: Jimmie العراقي MD Performed By: Kary Iqbal RDMS Referred By: TANYA SEAMAN Location: [place] SERVICE(S) PROVIDED: URETRO - Retroperitoneal Complete - [id number] INDICATIONS: New CLEM of unclear etiology RIGHT [...] who have questions, please contact the health customer care agent that requested your imaging first. Jimmie العراقي, Staff Physician Electronically Signed Final Report 01/19/2023 08:47 am Tanya Seaman MD IMG US GEN ORDERAB LES * POCT Glucose (01/19/2023 8:00 AM EDT) Glucose, POC 92 65 - 199 mg/dL [facility] Comment: Supplemental ranges: <140 mg/dL before meals <180 mg/dL all other times of the day Blood 01/19/2023 8:00 AM EDT 01/19/2023 8:00 AM EDT Tanya Seaman MD POINT OF CARE TEST ORDERABLES [facility] [place] [address] * POCT Glucose (01/19/2023 7:42 AM EDT) Glucose, POC 87 65 - 199 mg/dL [facility] Comment: Supplemental ranges: <140 mg/dL before meals <180 mg/dL all other times of the day Blood 01/19/2023 7:42 AM EDT 01/19/2023 7:42 AM EDT Tanya Seaman MD POINT OF CARE TEST ORDERABLES [facility] [place] [address] * (ABNORMAL) Basic Metabolic Panel (non-fasting) (01/19/2023 6:21 AM EDT) Glucose 80 65 - 199 mg/dL [facility] Comment:Diabetes: >=200 mg/d L plus symptoms Blood Urea Nitrogen 58(H) 10 - 20 mg/dL [facility] Creatinine 5.52(H) 0.80 - 1.50 mg/dL [facility] Sodium 143 135 - 145 mmol/L [facility] Potassium 4.3 3.5 - 5.0 mmol/L [facility] Comment: Please note: ??Patients with WBC >100,000 may have falsely elevated Potassium levels. ??For accurate Potassium quantification in these patients send serum separator tube (gold top) for subsequent determinations. ??Contact the Clinical Chemistry Laboratory if there are any questions. Chloride 107 98 - 107 mmol/L [facility] Carbon Dioxide 21(L) 22 - 31 mmol/L [facility] Anion Gap 15 5 - 15 mmol/L [facility] Calcium 8.9 8.5 - 10.5 mg/dL [facility] Est Glomerular Filtration Rate 11(L) >=60 mL/min/1. 73 m?? [facility] Comment: This patient's estimated GFR was [...] Lab Tanya Seaman MD CHEMISTRY ORDERABL ES [facility] [place] [address] * CK (01/19/2023 1:50 AM EDT) Creatine Kinase 70 0 - 200 unit/L [facility] Blood Venous Draw / Unknown 01/19/2023 1:50 AM EDT 01/19/2023 1:55 AM EDT Narrative Resulting Agency Comment Spec In Lab Kyle Mckeon MD CHEMISTRY ORDERABLES Performing Organization Address City/[facility]/ZIP Co de Phone Number [facility] [place] [address] * Differential, Automated (01/19/2023 1:50 AM EDT) Neutrophil % 73.8 % [facility] Neutrophil Absolute 5.75 1.70 - 6.10 x10(3)/[facility] Lymph % 13.8 % [facility] Lymphocytes Abs 1.1 0.9 - 3.2 x10(3)/[facility] Monocyte % 8.5 % [facility] Monocyte Abs 0.7 0.3 - 0.9 x10(3)/[facility] LAB[facility] Eos % 3.0 % [facility] Eosinophils Abs 0.2 0.0 - 0.4 x10(3)/[facility] Basophil % 0.6 % [facility] Baso Absolute 0.0 0.0 - 0.1 x10(3)/[facility] LAB[facility]ORY Immature Gran % 0.30 % [facility] Comment: Immature granulocytes(IG's)percentage and absolute count will include metamyelocytes, myelocytes, and promyelocytes. Blood smears from CBCs yielding IG's will be scanned manually for concordance. If this scan disagrees with the automated IG or if promyelocytes are noted, a manual differential will be performed. Immature Gran Absolute 0.02 0.00 - 0.04 x10(3)/[facility] LAB[facility] Blood 01/19/2023 1:50 AM EDT 01/19/2023 1:54 AM EDT Narrative Resulting Agency Comment Spec In Lab Kyle Mckeon MD HEMATOLOGY ORDERABLE S Performing Organization Address City/[facility]/ZIP Co de Phone Number [facility] [place] [address] * (ABNORMAL) Hemogram (01/19/2023 1:50 AM EDT) White Blood Cell 7.8 4.0 - 9.5 x10(3)/mc L [facility] Red Blood Cell 3.25(L) 4.58 - 5.54 x10(6)/mc L [facility] Hemoglobin 10.1(L) 13.7 - 16.5 g/dL [facility] Hematocrit 30.3(L) 40.5 - 48.5 % [facility] Mean Cell Volume 93.2(H) 82.9 - 93.1 fL [facility] Mean Cell Hemoglobin 31.1 27.5 - 32.1 pg [facility] Mean Cell Hemoglobin Concentration 33.3 32.0 - 35.7 g/dL [facility] Platelet 173 145 - 357 x10(3)/mc L [facility] RDW Standard Deviation 44.6 36.0 - 45.0 fL [facility] RDW coefficient of variation 13.0 11.4 - 13.8 % [facility] Mean Platelet Volume 11.5 7.6 - 12.9 fL [facility] NRBC% auto 0.0 % [facility] NRBC Absolute 0.000 0.000 - 0.000 x10(3)/ L [facility] Blood 01/19/2023 1:50 AM EDT 01/19/2023 1:54 AM EDT Narrative Resulting Agency Comment Spec In Lab Kyle Mckeon MD HEMATOLOGY ORDERABLE S Performing Organization Address City/[facility]/ZIP Co de Phone Number [facility] [place] [address] * Phosphorus (01/19/2023 1:50 AM EDT) Phosphorus 4.3 2.5 - 4.5 mg/dL [facility] Blood 01/19/2023 1:50 AM EDT 01/19/2023 1:54 AM EDT Narrative Resulting Agency Comment Spec In Lab Tanya Seaman MD CHEMISTRY ORDERABL ES Performing Organization Address City/[facility]/ZIP Co de Phone Number [facility] [place] [address] * Magnesium (01/19/2023 1:50 AM EDT) Magnesium 0.80 0.69 - 1.07 mmol/L [facility] Blood 01/19/2023 1:50 AM EDT 01/19/2023 1:54 AM EDT Narrative Resulting Agency Comment Spec In Lab Tanya Seaman MD CHEMISTRY ORDERABL ES Performing Organization Address City/State/[facility] Co de Phone Number [facility] [place] [address] * (ABNORMAL) Basic Metabolic Panel (non-fasting) (01/19/2023 1:50 AM EDT) Glucose 78 65 - 199 mg/dL [facility] Comment:Diabetes: >=200 mg/d L plus symptoms Blood Urea Nitrogen 54(H) 10 - 20 mg/dL [facility] Creatinine 5.50(H) 0.80 - 1.50 mg/dL [facility] Sodium 143 135 - 145 mmol/L [facility] Potassium 4.3 3.5 - 5.0 mmol/L [facility] Comment: Please note: ??Patients with WBC >100,000 may have falsely elevated Potassium levels. ??For accurate Potassium quantification in these patients send serum separator tube (gold top) for subsequent determinations. ??Contact the Clinical Chemistry Laboratory if there are any questions. Chloride 107 98 - 107 mmol/L [facility] Carbon Dioxide 22 22 - 31 mmol/L [facility] Anion Gap 14 5 - 15 mmol/L [facility] Calcium 8.9 8.5 - 10.5 mg/dL [facility] Est Glomerular Filtration Rate 11(L) >=60 mL/min/1. 73 m?? [facility] Comment: This patient's estimated GFR was [...] CHEMISTRY ORDERABL ES Performing Organization Address [facility] Co de Phone Number [facility] [place] [address] * POCT Glucose (01/19/2023 1:46 AM EDT) Glucose, POC 75 65 - 199 mg/dL [facility] Comment: Supplemental ranges: <140 mg/dL before meals <180 mg/dL all other times of the day Blood 01/19/2023 1:46 AM EDT 01/19/2023 1:46 AM EDT Tanya Seaman MD POINT OF CARE TEST ORDERABLES Performing Organization Address [facility] Co de Phone Number [facility] [place] [address] * (ABNORMAL) Blood Gas Venous ([facility]) (01/18/2023 10:20 PM EDT) pH, Venous 7.37 7.32 - 7.42 [facility] PCO2, Venous 38(L) 41 - 51 mmHg [facility] PO2, Venous 30 25 - 40 mmHg [facility] Bicarbonate, Venous 21.7 mmol/L [facility] Base Excess, Venous -3.7 mmol/L [facility] Hgb Blood Gas Not Perf 13.7 - 16.5 g/dL [facility] Oxyhemoglobin, Venous Not Perf % [facility] Carboxyhemoglob in, Venous Not Perf % [facility] Comment: Nonsmokers: 0.5-1.5% COHB Smokers: Variable, but usually less than 10% Toxic: 20-30% COHB Lethal: Greater than 60% COHB Methemoglobin, Venous Not Perf <=1.5 % [facility] Na Whole Blood 140 135 - 145 mmol/L [facility] K Whole Blood 4.5 3.5 - 5.0 mmol/L [facility] Comment: Please note: Patients with WBC >100,000 may have falsely elevated Potassium levels. Contact the Clinical Chemistry Laboratory if there are any questions. ICa Whole Blood 1.14(L) 1.15 - 1.33 mmol/L [facility] Comment: Note: ??Total bilirubin higher than 20 mg/dL may lead to falsely low ionized calcium. CL Whole Blood 109(H) 98 - 107 mmol/L [facility] Gluc Whole Bld 73 65 - 199 mg/dL [facility] Comment:Diabetes: >=200 mg/d L plus symptoms Lactate WB 1.3 0.5 - 2.2 mmol/L [facility] Blood Gas Source Venous [facility] Blood Venous Draw / Unknown 01/18/2023 10:20 PM EDT 01/18/2023 10:26 PM EDT Narrative Resulting Agency Comment Spec In Lab Kyle Mckeon MD CHEMISTRY ORDERABLES Performing Organization Address City/State/[facility] Co de Phone Number [facility] [place] [address] * (ABNORMAL) Basic Metabolic Panel (non-fasting) (01/18/2023 10:16 PM EDT) Glucose 74 65 - 199 mg/dL [facility] Comment:Diabetes: >=200 mg/d L plus symptoms Blood Urea Nitrogen 60(H) 10 - 20 mg/dL [facility] Creatinine 5.81(H) 0.80 - 1.50 mg/dL [facility] Sodium 145 135 - 145 mmol/L [facility] Potassium 4.8 3.5 - 5.0 mmol/L [facility] Comment: Please note: ??Patients with WBC >100,000 may have falsely elevated Potassium levels. ??For accurate Potassium quantification in these patients send serum separator tube (gold top) for subsequent determinations. ??Contact the Clinical Chemistry Laboratory if there are any questions. Chloride 109(H) 98 - 107 mmol/L [facility] Carbon Dioxide Not Perf 22 - 31 [facility] Comment:Add-on request. Samp le too old to perform test. Anion Gap Unable to Calculate 5 - 15 mmol/L [facility] Calcium 9.2 8.5 - 10.5 mg/dL [facility] Est Glomerular Filtration Rate 10(L) >=60 mL/min/1 .73 m?? [facility] Comment: This patient's estimated GFR was [...] Mckeon MD CHEMISTRY ORDERABLES Performing Organization Address City/State/[facility] Co de Phone Number [facility] [place] [address] * (ABNORMAL) Differential, Automated (01/18/2023 10:16 PM EDT) Neutrophil % 78.0 % [facility] Neutrophil Absolute 5.41 1.70 - 6.10 x10(3)/mc L [facility] Lymph % 11.5 % [facility] Lymphocytes Abs 0.8(L) 0.9 - 3.2 x10(3)/mc L [facility] Monocyte % 6.6 % [facility] Monocyte Abs 0.5 0.3 - 0.9 x10(3)/mc L [facility] Eos % 3.0 % [facility] Eosinophils Abs 0.2 0.0 - 0.4 x10(3)/mc L [facility] Basophil % 0.6 % [facility] Baso Absolute 0.0 0.0 - 0.1 x10(3)/mc L [facility] Immature Gran % 0.30 % [facility] Comment: Immature granulocytes(IG's)percentage and absolute count will include metamyelocytes, myelocytes, and promyelocytes. Blood smears from CBCs yielding IG's will be scanned manually for concordance. If this scan disagrees with the automated IG or if promyelocytes are noted, a manual differential will be performed. Immature Gran Absolute 0.02 0.00 - 0.04 x10(3)/mc L [facility] Blood 01/18/2023 10:1 6 PM EDT 01/18/2023 10:27 PM EDT Narrative Resulting Agency Comment Spec In Lab Kyle Mckeon MD HEMATOLOGY ORDERABLE S [facility] [place] [address] * (ABNORMAL) Hemogram (01/18/2023 10:16 PM EDT) White Blood Cell 6.9 4.0 - 9.5 x10(3)/mc L [facility] Red Blood Cell 3.30(L) 4.58 - 5.54 x10(6)/mc L [facility] Hemoglobin 10.1(L) 13.7 - 16.5 g/dL [facility] Hematocrit 31.0(L) 40.5 - 48.5 % [facility] Mean Cell Volume 93.9(H) 82.9 - 93.1 fL [facility] Mean Cell Hemoglobin 30.6 27.5 - 32.1 pg [facility] Mean Cell Hemoglobin Concentration 32.6 32.0 - 35.7 g/dL [facility] Platelet 196 145 - 357 x10(3)/mc L [facility] RDW Standard Deviation 44.9 36.0 - 45.0 fL [facility] RDW coefficient of variation 13.1 11.4 - 13.8 % [facility] Mean Platelet Volume 11.4 7.6 - 12.9 fL [facility] NRBC% auto 0.0 % [facility] NRBC Absolute 0.000 0.000 - 0.000 x10(3)/mc L [facility] Blood 01/18/2023 10:1 6 PM EDT 01/18/2023 10:27 PM EDT Narrative Resulting Agency Comment Spec In Lab Kyle Mckeon MD HEMATOLOGY ORDERABLE S Performing Organization Address [facility] Co de Phone Number [facility] [place] [address] * Salicylate (01/18/2023 10:16 PM EDT) Salicylate 3 mg/L [facility] Comment: Therapeutic Range: ??< 200 [...] ORDERABL ES Performing Organization Address [facility] Co de Phone Number [facility] [place] [address] * (ABNORMAL) Acetaminophen level (01/18/2023 10:16 PM EDT) Acetamin Lvl <5(L) 5 - 30 mg/L [facility] Comment: Levels >150 mg/L at 4 hours post ingestion are often an indication for N-Acetylcysteine. Blood 01/18/2023 10:1 6 PM EDT 01/18/2023 10:27 PM EDT Narrative Resulting Agency Comment Spec In Lab Tanya Seaman MD CHEMISTRY ORDERABL ES Performing Organization Address City/[facility] Co de Phone Number [facility] [place] [place] [address] * Phosphorus (01/18/2023 10:16 PM EDT) Phosphorus 4.2 2.5 - 4.5 mg/dL [facility] Blood 01/18/2023 10:1 6 PM EDT 01/18/2023 10:27 PM EDT Narrative Resulting Agency Comment Spec In Lab Tanya Seaman MD CHEMISTRY ORDERABL ES Performing Organization Address [facility] Co de Phone Number [facility] [place] [address] * Magnesium (01/18/2023 10:16 PM EDT) Magnesium 0.87 0.69 - 1.07 mmol/L [facility] Blood 01/18/2023 10:1 6 PM EDT 01/18/2023 10:27 PM EDT Narrative Resulting Agency Comment Spec In Lab Tanay Seaman MD CHEMISTRY ORDERABL ES Performing Organization Address [facility] de Phone Number [facility] [place] [address] * APTT (01/18/2023 10:16 PM EDT) Partial Thromboplastin Time 35 25 - 37 sec [facility] Comment: The PTT is NOT appropriate for heparin monitoring. Use the Anti-Xa level for heparin monitoring (HEP UFH) or LMWH monitoring (HEP LMW). A PTT less than 37 seconds generally indicates adequate hemostasis. Blood 01/18/2023 10:1 6 PM EDT 01/18/2023 10:27 PM EDT Narrative Resulting Agency Comment Spec In Lab Tanya Seaman MD HEMATOLOGY ORDERAB LES Performing Organization Address [facility] Co de Phone Number [facility] [place] [address] * (ABNORMAL) Prothrombin Time (01/18/2023 10:16 PM EDT) Prothrombin Time 14.3(H) 9.4 - 12.5 sec [facility] International Normalization Ratio 1.3 [facility] Comment: An INR <2.0 indicates adequate [...] Lab Tanya Seaman MD HEMATOLOGY ORDERAB LES [facility] [place] [address] * (ABNORMAL) Hemoglobin A1c (01/18/2023 10:16 PM EDT) Hemoglobin A1c 5.7(H) 4.3 - 5.6 % [facility] Comment: Reference Range: 4.3 - 5.6% [...] Diabetes Care 2013; 36: Suppl. 1, S67-74 Estimated Average Glucose 117 mg/dL [facility] Comment: eAG equivalents for HbA1c percentages: [...] into estimated average glucose values. ??Diabetes Care 2008:31(8):0147-2831. Blood 01/18/2023 10:1 6 PM EDT 01/18/2023 10:27 PM EDT Narrative Resulting Agency Comment Spec In Lab Tanya Seaman MD CHEMISTRY ORDERABL ES Performing Organization Address [facility] Co de Phone Number [facility] [place] [address] * TSH Gravity (01/18/2023 10:16 PM EDT) Thyroid Stimulating Hormone 2.03 0.27 - 4.20 mcIU/mL [facility] Comment: Reference Interval (mcIU/mL): Females: ??First Trimester: 0.23-3.88 ??Second Trimester: 0.22-3.90 ??Third Trimester: 0.44-4.66 Blood 01/18/2023 10:1 6 PM EDT 01/18/2023 10:27 PM EDT Narrative Resulting Agency Comment Spec In Lab Tanya Seaman MD CHEMISTRY ORDERABL ES Performing Organization Address [facility] Co de Phone Number [facility] [place] [address] * LDL Cholesterol, Direct (01/18/2023 10:16 PM EDT) LDL Cholesterol, Direct 65 mg/dL [facility] Comment: Lowest Risk: <100 mg/dL Lower Risk: 100-129 mg/dL Borderline High Risk: 130-159 mg/dL High Risk: 160-189 mg/dL Very High Risk: >sv=556 mg/dL Blood 01/18/2023 10:1 6 PM EDT 01/18/2023 10:27 PM EDT Narrative Resulting Agency Comment Spec In Lab Tanya Seaman MD CHEMISTRY ORDERABL ES Performing Organization Address City/[facility]/ZIP Co de Phone Number [facility] [place] [place] [address] * HDL/Cholesterol Profile (01/18/2023 10:16 PM EDT) Cholesterol, Total 122 mg/dL [facility] Comment: Lower Risk: <200 mg/dL Average Risk: 200-239 mg/dL Higher Risk: >jn=942 mg/dL HDL Cholesterol 27 mg/dL [facility] Comment: Males: ?? Higher Risk: <40 mg/dL Females: ?? Higher Risk: <50 mg/dL Cholesterol/HDL Ratio 4.5 ratio [facility] Chol/HDL Interpretation See Note [facility] Comment: Lipid management should be guided by a patient? s ASCVD risk, goals and preferences. ACC/AHA Guidelines recommend high intensity statin if clinical ASCVD or LDL greater than or equal to 190 mg/dL. http://[employer].com/TDG-OAJ-Qmnbwdszh Measure LDL if Total Cholesterol minus HDL Cholesterol is greater than 220 mg/dL. Adults aged 40-75 with LDL 70-189 mg/dL should have their 10 year ASCVD risk estimated with the ACC/AHA ASCVD risk shop estimator http://tools.acc.org/UZEXN-Gexf-Nxtpvvkga/ Statin should be discussed if risk greater [...] MD CHEMISTRY ORDERABL ES Performing Organization Address City/[facility]/ZIP Co de Phone Number [facility] [place] [address] * (ABNORMAL) Troponin (01/18/2023 10:16 PM EDT) Troponin-T, High Sensitivity 78(H) <=22 ng/L [facility] Comment: This patient's troponin T concentration [...] value can be found in the [facility] Test Catalog Troponin - [facility] Test Catalog Reference: Fourth [place] Definition of Myocardial Infarction. Journal of the [place] [employer] 2018;72:6104-6562 Blood 01/18/2023 10:1 6 PM EDT 01/18/2023 10:27 PM EDT Narrative Resulting Agency Comment Spec In Lab Tanya Seaman MD CHEMISTRY ORDERABL ES [facility] [place] [address] * (ABNORMAL) Protein/Creatinine Ratio, urine (01/18/2023 10:13 PM EDT) Creatinine, Urine 41 mg/dL [facility] Protein, Urine 200(H) 0 - 12 mg/dL [facility] Protein / Creatinine Ratio, Urine 4.9 ratio [facility] Urine Urine / Unknown 01/18/2023 1 0:13 PM EDT 01/18/2023 10:29 PM EDT Narrative Resulting Agency Comment Spec In Lab Deonte Lugo MD URINE ORDERABLES Performing Organization Address [facility]/ZIP Co de Phone Number [facility] [place] [address] * Urine culture (01/18/2023 10:13 PM EDT) Urine Culture No growth (Less than 1,000 cfu/ml). [facility] Indwelling Catheter Urine 01/18/2023 10:13 PM EDT 01/18/2023 11:08 PM EDT Narrative Resulting Agency Comment Spec In Lab Kyle Mckeon MD MICROBIOLOGY - GENER AL ORDERABLES Performing Organization Address [facility] Co de Phone Number [facility] [place] [address] * (ABNORMAL) Urinalysis Microscopic Exam (01/18/2023 10:13 PM EDT) RBC, Urine >100(H) 0 - 3 /HPF [facility] WBC, Urine 10(H) 0 - 3 /HPF [facility] Squamous Epithelial Cells Raw Data, Urine 5(H) <=4 /HPF [facility] Hyaline Casts, Urine 2 0 - 2 /LPF [facility] Indwelling Catheter Urine 01/18/2023 10:13 PM EDT 01/18/2023 10:22 PM EDT Narrative Resulting Agency Comment Spec In Lab Kyle Mckeon MD URINE ORDERABLES Performing Organization Address [facility] Co de Phone Number [facility] [place] [address] * Rapid Drug Screen w/ Confirmation, Urine (01/18/2023 10:13 PM EDT) Barbiturates Screen, Urine None Detected None Detected [facility] Comment: The barbiturate screen detects barbiturates [...] Benzodiazepines Screen, Urine None Detected None Detected [facility] Comment: The benzodiazepines screen detects benzodiazepines [...] Cocaine Screen, Urine None Detected None Detected [facility] Comment: The cocaine metabolites screen detects benzoylecgonine (Cocaine Metabolite) at concentrations >150 ng/mL. A ? Presumptive Positive? result indicates that the screening result was positive but has not yet been confirmed by a highly-specific method. As with any screen, occasional false positive results from cross-reacting substances may occur. Not for Medico-Legal Purposes. Methadone Metabolites Screen, Urine None Detected None Detected [facility] Comment: The methadone metabolite screen detects EDDP (major methadone metabolite) at concentrations >100 ng/mL. A ? Presumptive Positive? result indicates that the screening result was positive but has not yet been confirmed by a highly-specific method. As with any screen, occasional false positive results from cross-reacting substances may occur. Not for Medico-Legal Purposes. Opiate Screen, Urine None Detected None Detected [facility] Comment: The opiates screen detects [...] Cannabinoid Screen, Urine None Detected None Detected [facility] Comment: The marijuana metabolites screen detects the THC metabolite (44-akd-7-carboxy-delta 9-THC) at concentrations >20 ng/mL. A ? Presumptive Positive? result indicates that the screening result was positive but has not yet been confirmed by a highly-specific method. As with any screen, occasional false positive results from cross-reacting substances may occur. Not for Medico-Legal Purposes. Oxycodone Screen, Urine None Detected None Detected [facility] Comment: The oxycodone screen detects oxycodone and oxymorphone at concentrations >100 ng/mL. A ? Presumptive Positive? result indicates that the screening result was positive but has not yet been confirmed by a highly-specific method. As with any screen, occasional false positive results from cross-reacting substances may occur. Not for Medico-Legal Purposes. Buprenorphine Screen, Urine None Detected None Detected [facility] Comment: The buprenorphine screen detects buprenorphine [...] characteristics of this test were determined by [facility] in accordance with CLIA requirements. This laboratory is qualified under CLIA to perform high-complexity testing. Fentanyl Screen, Urine None Detected None Detected [facility] Comment: The fentanyl screen detects fentanyl [...] of this test were determined by [facility] in accordance with CLIA requirements. This laboratory is qualified under CLIA to perform high-complexity testing. Tricyclics Screen, Urine None Detected None Detected [facility] Comment: The tricyclics screen detects tricyclic [...] characteristics of this test were determined by [facility] in accordance with CLIA requirements. This laboratory is qualified under CLIA to perform high-complexity testing. Ethanol Screen, Urine None Detected None Detected [facility] Comment:This urine ethanol a ssay detects ethanol at concentrations >/= 100 mg/L. Amphetamines Screen, Urine None Detected None Detected [facility] Comment: The amphetamine screen detects d-amphetamine and d-methamphetamine at concentrations >300 ng/mL. A ? Presumptive Positive? result indicates that the screening result was positive but has not yet been confirmed by a highly-specific method. As with any screen, occasional false positive results from cross-reacting substances may occur. Not for Medico-Legal Purposes. Creatinine Specimen Validity Test, Urine 42 >=20 mg/dL [facility] Chromate Specimen Validity Test, Urine <2.0 <=49.9 mg/L [facility] Nitrite Specimen Validity Test, Urine <50 <=499 mg/L [facility] Oxidant Specimen Validity Test, Urine 6 <=199 mg/L [facility] pH Specimen Validity Test, Urine 6.0 3.0 - 10.9 [facility] Adulterants Screen, Urine None Detected None Detected [facility] Comment:No adulteration of t his urine sample was detected. Urine 01/18/2023 10:1 3 PM EDT 01/18/2023 10:22 PM EDT Narrative Resulting Agency Comment Spec In Lab Kyle Mckeon MD CHEMISTRY ORDERABLES Performing Organization Address [facility] Co de Phone Number [facility] [place] [address] * Rapid Drug Screen, Urine (HEATHER Request) (01/18/2023 10:13 PM EDT) HEATHER Conf Requested Yes [facility] HEATHER Requested See Comment [facility] Comment:Refer to Rapid Drug Screen w/ Confirmation, Urine for results. Urine 01/18/2023 10:1 3 PM EDT 01/18/2023 10:22 PM EDT Narrative Resulting Agency Comment Spec In Lab Tanya Seaman MD URINE ORDERABLES [facility] [place] [address] * Creatinine, urine, random (01/18/2023 10:13 PM EDT) Creatinine, Urine 41 mg/dL [facility] Urine 01/18/2023 10:1 3 PM EDT 01/18/2023 10:22 PM EDT Narrative Resulting Agency Comment Spec In Lab Tanya Seaman MD URINE ORDERABLES Performing Organization Address City/[facility]/ZIP Co de Phone Number [facility] [place] [address] * Urea nitrogen, urine, random (01/18/2023 10:13 PM EDT) Urea Nitrogen, Urine 251 mg/dL [facility] Urine 01/18/2023 10:1 3 PM EDT 01/18/2023 10:22 PM EDT Narrative Resulting Agency Comment Spec In Lab Tanya Seaman MD URINE ORDERABLES Performing Organization Address [facility] Co de Phone Number [facility] [place] [address] * (ABNORMAL) Urinalysis with reflex Culture (01/18/2023 10:13 PM EDT) Glucose, Urine Dipstick Negative Negative mg/dL [facility] Protein, Urine Dipstick >=300(A) Negative mg/dL [facility] Bilirubin, Urine Dipstick Negative Negative mg/dL [facility] Comment: Clinical correlation required for positive Urine Bilirubin results as false positive may occur with some drugs and drug related products. If a false positive is suspected a serum total bilirubin should be considered if clinically indicated. Urobilinogen, Urine Dipstick Normal Normal mg/dL [facility] pH, Urn (dipstick) 6.5 5.0 - 8.0 [facility] Blood, Urine Dipstick Large(A) Negative mg/dL [facility] Ketone, Urine Dipstick Negative Negative mg/dL [facility] Nitrite, Urine Dipstick Negative Negative [facility] Leukocytes, Urine Dipstick Small(A) Negative mcL [facility] Appearance, Urine Dipstick Cloudy(A) Clear [facility] Specific [place] Urine Automated 1.010 1.005 - 1.030 [facility] Color, Urine Dipstick Red(A) Yellow [facility] Reflex to Culture Yes [facility] Indwelling Catheter Urine 01/18/2023 10:13 PM EDT 01/18/2023 10:22 PM EDT Narrative Resulting Agency Comment Spec In Lab Tanya Seaman MD URINE ORDERABLES Performing Organization Address City/[facility]/ZIP Co de Phone Number [facility] [place] [address] * Lactate, whole blood, send to lab ([facility]) (01/18/2023 7:46 PM EDT) Pathologist [facility] Lactate WB 1.6 0.5 - 2.2 mmol/L [facility] Blood 01/18/2023 7:46 PM EDT 01/18/2023 7:51 PM EDT Narrative Resulting Agency Comment Spec In Lab Tanya Seaman MD CHEMISTRY ORDERABL ES Performing Organization Address [facility] Co de Phone Number [facility] [place] [address] * (ABNORMAL) Differential, Automated (01/18/2023 7:16 PM EDT) Neutrophil % 80.9 % [facility] Neutrophil Absolute 5.86 1.70 - 6.10 x10(3)/mc L [facility] Lymph % 9.7 % [facility] Lymphocytes Abs 0.7(L) 0.9 - 3.2 x10(3)/mc L [facility] Monocyte % 5.9 % [facility] Monocyte Abs 0.4 0.3 - 0.9 x10(3)/mc L [facility] Eos % 2.6 % [facility] Eosinophils Abs 0.2 0.0 - 0.4 x10(3)/mc L [facility] Basophil % 0.6 % [facility] Baso Absolute 0.0 0.0 - 0.1 x10(3)/mc L [facility] Immature Gran % 0.30 % [facility] Comment: Immature granulocytes(IG's)percentage and absolute count will include metamyelocytes, myelocytes, and promyelocytes. Blood smears from CBCs yielding IG's will be scanned manually for concordance. If this scan disagrees with the automated IG or if promyelocytes are noted, a manual differential will be performed. Immature Gran Absolute 0.02 0.00 - 0.04 x10(3)/ L [facility] Blood 01/18/2023 7:16 PM EDT 01/18/2023 7:27 PM EDT Narrative Resulting Agency Comment Spec In Lab Kyle Mckeon MD HEMATOLOGY ORDERABLE S Performing Organization Address City/State/[facility] Co de Phone Number [facility] [place] [address] * (ABNORMAL) Hemogram (01/18/2023 7:16 PM EDT) White Blood Cell 7.2 4.0 - 9.5 x10(3)/mc L [facility] Red Blood Cell 3.24(L) 4.58 - 5.54 x10(6)/mc L [facility] Hemoglobin 10.1(L) 13.7 - 16.5 g/dL [facility] Hematocrit 30.1(L) 40.5 - 48.5 % [facility] Mean Cell Volume 92.9 82.9 - 93.1 fL [facility] Mean Cell Hemoglobin 31.2 27.5 - 32.1 pg [facility] Mean Cell Hemoglobin Concentration 33.6 32.0 - 35.7 g/dL [facility] Platelet 183 145 - 357 x10(3)/ L [facility] RDW Standard Deviation 44.4 36.0 - 45.0 fL [facility] RDW coefficient of variation 13.2 11.4 - 13.8 % [facility] Mean Platelet Volume 11.9 7.6 - 12.9 fL [facility] NRBC% auto 0.0 % [facility] NRBC Absolute 0.000 0.000 - 0.000 x10(3)/mc L [facility] Blood 01/18/2023 7:16 PM EDT 01/18/2023 7:27 PM EDT Narrative Resulting Agency Comment Spec In Lab Kyle Mckeon MD HEMATOLOGY ORDERABLE S Performing Organization Address City/[facility]/ZIP Co de Phone Number [facility] [place] [address] * (ABNORMAL) pro-Brain Natriuretic Peptide (01/18/2023 7:16 PM EDT) NT-proBNP 11,818(H) <=124 pg/mL [facility] Blood 01/18/2023 7:16 PM EDT 01/18/2023 7:27 PM EDT Narrative Resulting Agency Comment Spec In Lab Tanya Seaman MD CHEMISTRY ORDERABL ES Performing Organization Address [facility] Co de Phone Number [facility] [place] [address] * (ABNORMAL) Troponin (01/18/2023 7:16 PM EDT) Troponin-T, High Sensitivity 78(H) <=22 ng/L [facility] Comment: This patient's troponin T concentration [...] value can be found in the [facility] Test Catalog Troponin - [facility] Test Catalog Reference: Fourth [place] Definition of Myocardial Infarction. Journal of the [place] [employer] 2018;72:8887-9637 Blood 01/18/2023 7:16 PM EDT 01/18/2023 7:27 PM EDT Narrative Resulting Agency Comment Spec In Lab Tanya Seaman MD CHEMISTRY ORDERABL ES [facility] [place] [address] * (ABNORMAL) Comprehensive metabolic panel (non-fasting) (01/18/2023 7:16 PM EDT) Glucose 76 65 - 199 mg/dL [facility] Comment:Diabetes: >=200 mg/d L plus symptoms Blood Urea Nitrogen 60(H) 10 - 20 mg/dL [facility] Creatinine 5.71(H) 0.80 - 1.50 mg/dL [facility] Sodium 144 135 - 145 mmol/L [facility] Potassium 4.6 3.5 - 5.0 mmol/L [facility] Comment: Please note: ??Patients with WBC >100,000 may have falsely elevated Potassium levels. ??For accurate Potassium quantification in these patients send serum separator tube (gold top) for subsequent determinations. ??Contact the Clinical Chemistry Laboratory if there are any questions. Chloride 109(H) 98 - 107 mmol/L [facility] Carbon Dioxide 21(L) 22 - 31 mmol/L [facility] Anion Gap 14 5 - 15 mmol/L [facility] Calcium 9.3 8.5 - 10.5 mg/dL [facility] Protein, Total 7.2 6.1 - 8.0 g/dL [facility] Albumin 4.2 3.2 - 5.2 g/dL [facility] Aspartate Aminotransferase 12 0 - 39 unit/L [facility] Alanine Aminotransferase 12 0 - 55 unit/L [facility] Alkaline Phosphatase 95 40 - 130 unit/L [facility] Bilirubin, Total 0.7 0.2 - 1.3 mg/dL [facility] Est Glomerular Filtration Rate 10(L) >=60 mL/min/1. 73 m?? [facility] Comment: This patient's estimated GFR was [...] MD CHEMISTRY ORDERABL ES Performing Organization Address City/[facility] Co de Phone Number [facility] [place] [address] * EKG 12 Lead (01/18/2023 6:52 PM EDT) Ventricular rate 69 BPM MUSE SYSTEM Atrial Rate 69 BPM MUSE SYSTEM P-R Interval 212 ms MUSE SYSTEM QRS Duration 126 ms MUSE SYSTEM Q-T Interval 432 ms MUSE SYSTEM QTC Calculated (Bezet) 462 ms MUSE SYSTEM Calculated P [place] 46 degrees MUSE SYSTEM Calculated R [place] -37 degrees MUSE SYSTEM Calculated T [place] 101 degrees MUSE SYSTEM INTERPRETATION Sinus rhythm with 1st degree A-V block Left axis deviation Non-specific intra-ventricul ar conduction block Possible Lateral infarct , age undetermined Abnormal ECG No previous ECGs available Confirmed by Tessa Saldivar ([id number]) on 01/19/2023 9:21:20 AM MUSE SYSTEM 01/18/2023 6:52 PM EDT 01/19/2023 9:21 AM EDT Tanya Seaman MD ECG ORDERABLES Performing Organization Address City/[facility] Co de Phone Number MUSE [...] on Wed01/18/23 at 2042, Until Wed01/27/23 at 182, For BG 50-70 [...] Adrienne Calderon RN - Reason: Patient/family refused) 09 (Not Given - Provider: Morena Lopez RN - Reason: Patient/family refused)2099 (Not Given - Provider: Lisa Vasquez RN [...] Calderon RN) 08 (Given - Provider: Morena Lopez RN)2101 (Given [...] MD notified)1457 (Given - Provider: Morena Lopez RN)2101 (Not [...] 0910 (Given - Provider: Sixto Amato RN) metoprolol succinate XL (Toprol-XL) tablet 25 mg [...] on Wed01/19/23 at 2100, Until Discontinued, Routine 2099 (Not Given - Provider: Adrienne Calderon RN [...] on Wed01/20/23 at 2228, Until Wed01/27/23 at 182, Pain, Headaches, Maximum dose of acetaminophen is 4,000 mg from all sources in 24 hours. When ordered for pain, acetaminophen should be given even when other ordered pain medications are indicated. , Routine dextrose 10% infusion(Linked Group 2) 250 mL, at 1,000 mL/hr, Intravenous, EVERY 30 MIN PRN, Starting on Wed01/18/23 at 2042, Until Wed01/27/23 at 182, For BG 50-70 [...] on Wed01/18/23 at 204, Until Wed01/27/23 at 182, Low blood sugar, [...] Routine documented in this encounter Care Teams Quality Audit Representative Relationship Specialty Start Date End Date Reinier Arceo PA [address] [place] [address] PCP - General Internal Medicine 01/18/23 documented as of this encounter
--- OUTSIDE RECORDS SUMMARY | 2024-02-04 12:57 | XMS_ITS | Encounter Summary ---
Author Organization [facility] Address [facility] [place] [address] Care Team Providers Care Maintenance Assistant Name Role Phone Reinier Arceo Primary Care Provider [phone] Encounter Details Date Type Department Care Team (Late st Contact Info) Description 01/18/2023 Telephone Cardiology at [address] [place] [address] Michelle Caicedo APRN [facility] [place] [address] Social History Tobacco Use Types Packs/Day Years [...] PM Referring Provider: Dr. Dykes Patient Location: [facility] Past Medical History: DM Hypertension Hyperlipidemia COPD HFrEF 45% (2019) Presenting Symptoms per OSH: Patient is a 67-year-old with a past medical history of heart failure reduced EF (last known ejection fraction was 45% in 2020), diabetes, hypertension, hyperlipidemia and COPD. He presented to the [facility] emergency department after being redirected from the [facility] urgent walk-in clinic. He complains of [...] the patient condition. Michelle Caicedo, SONNY Pager [phone] 01/18/2023 documented in this encounter Plan of Treatment Upcoming Encounters Date Type Department Care Team (Late st Contact Info) Description 04/06/2024 2:20 PM EDT [place] [address] Austin Simon MD [facility] [place] [address] documented as of this encounter Visit Diagnoses Not on filedocumented in this encounter Care Teams Maintenance Assistant Relationship Specialty Start Date End Date Reinier Arceo PA [address]iss[address] [address] PCP - General Internal Medicine 01/18/23 documented as of this encounter
--- OUTSIDE RECORDS SUMMARY | 2024-02-04 12:57 | XMS_ITS | Encounter Summary ---
Author Organization [facility] [place] [address] Care Team Providers Care Tail Ripper Name Role Phone Reinier Arceo Primary Care Provider [phone] Encounter Details Date Type Department Care Team (Late st Contact Info) Description 01/18/2023 1:10 PM EDT Ancillary Procedure [place] [id number] Dave Rowan MD [facility] [place] [address] Social History Tobacco Use Types Packs/Day Years Used Date Smoking Tobacco: Never Alcohol Use Standard Drinks/Week Comments Never 0 (1 standard drink = 0.6 oz pur e alcohol) [facility] Inpatient Questions Answer Date Recorded [...] 2:20 PM EDT [place] [address] Austin Simon MD [facility] [place] [address] documented as of this encounter Procedures Procedure Name Priority Date/Time Associated Diagnosis Comments FILM LIBRARY STORAGE ONLY DX CHEST Routine 01/18/2023 1:08 PM EDT documented in this encounter Results * Film Library- Storage Only DX Chest (01/18/2023 1:08 PM EDT) Narrative RAD - 01/18/2023 1:08 PM EDT This exam is auto-finalizing. It's purpose is for storage only. Dave Rowan MD G FILM LIBRARY ORD ERABLES [place], [place] documented in this encounter Visit Diagnoses Not on filedocumented in this encounter Care Teams Tail Ripper Relationship Specialty Start Date End Date Reinier Arceo PA [address] [place] [address] PCP - General Internal Medicine 01/18/23 documented as of this encounter
--- OUTSIDE RECORDS SUMMARY | 2024-02-04 12:58 | XMS_ITS | Encounter Summary ---
Author Organization [facility] [place] [address] Care Team Providers Care Chief Controller Tower Name Role Phone Reina Alcala APRN Primary Care Provider [phone] Reason for Visit * Reason Comments Skin Check Encounter Details Date Type Department Care Team (Late st Contact Info) Description 12/01/2013 1:00 PM EDT Office Visit Dermatology at [address] [place] [address] Sixto Doty MD [address] [facility] [place] [address] Neurodermatitis (Primary Dx) Social History Tobacco Use [...] him that if he can break the irbs-[id number] cycle, these will heal. f. Return to clinic here in one month for repeat check. COPY: Nicole Kimball. 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
--- OUTSIDE RECORDS SUMMARY | 2024-02-04 12:58 | XMS_ITS | Encounter Summary ---
Author Organization [facility] [place] [address] Care Team Providers Care Professor Of Philosophy Name Role Phone Von Miles MD Primary Care Provider [phone] Reason for Visit * Reason Comments Follow-up Encounter Details Date Type Department Care Team (Late st Contact Info) Description 03/09/2014 1:30 PM EDT Office Visit Dermatology at [address] [address] Sixto Doty MD 580 [facility], [place] A DERMATOLOGY [place], [place] [id number] Neurodermatitis (Primary Dx) Discharge Disposition: Home Social History Tobacco Use Types Packs/Day Years Used Date Smoking Tobacco: Never Sex and Gender Information Value Date Recorded Sex Assigned at Not on file Gender Identity Not on file Sexual Orientation Not on file documented as of this encounter Patient Instructions * Patient Instructions* Sarai Acosta LPN - 03/09/2014 1:32 PM EDT [facility] Dermatitis: After Your Visit Your [...] help for plant rashes. ?? Try an uzfe-nnr-zwtnlkl antihistamine such as diphenhydramine (Benadryl) or chlorpheniramine [...] Visit our health information library at [email or web address] One[employer]/Alizé Pharmainfo You can also view health information on Work in Field, your personal patient account. Log in or sign up today. Enter F270 in the search box to learn more about Dermatitis: After Your Visit. ?? [id number] Laszlo Systems[employer] Incorporated. Care instructions adapted under license by [facility]. This care instruction is for use with your licensed healthcare professional. If you have questions about a medical condition or this instruction, always ask your healthcare professional. Laszlo [employer], [employer] disclaims any warranty or liability for your use of this information. Content Version: 9.9.736809; Last Revised: November 11, 2012 documented in [...] senior housing. He is 58-1/2, and the nephrology social worker working with Geetha Ran is [...] into this option for him via his nephrology social worker in Geetha Tong's office. b. Called in to be sure that he has refills of his triamcinolone cream, refills of his hydroxyzine 25 mg one p.o. q.a.m., and we called in a new prescription to [facility] in [place] for doxepin 10 mg to take one [...] 2:20 PM EDT [place] [address] Austin Simon MD [facility] [place] [address] documented as of this encounter Visit Diagnoses Diagnosis Neurodermatitis- Primary Lichenification and lichen simplex chronicus documented in this encounter Care Teams Professor Of Philosophy Relationship Specialty Start Date End Date Von Miles MD [address] [place] [address] [place] [address] PCP - General 12/04/13 04/17/14 documented as of this encounter
--- OUTSIDE RECORDS SUMMARY | 2024-02-04 12:58 | XMS_ITS | Encounter Summary ---
Author Organization [facility] [place] [address] Care Team Providers Care Hvac R Instructor Name Role Phone Von Miles MD Primary Care Provider [phone] Reason for Visit * Reason Comments Follow-up Encounter Details Date Type Department Care Team (Late st Contact Info) Description 04/17/2014 2:30 PM EDT Office Visit Dermatology at [address] [address] Sixto Doty MD 580 [facility], [place] A DERMATOLOGY [place], [place] [phone] Neurodermatitis (Primary Dx) Discharge Disposition: Home Social History Tobacco Use Types Packs/Day Years Used Date Smoking Tobacco: Never Sex and Gender Information Value Date Recorded Sex Assigned at Not on file Gender Identity Not on file Sexual Orientation Not on file documented as of this encounter Patient Instructions * Patient Instructions* Sarai Acosta LPN - 04/17/2014 2:48 PM EDT [facility] Dermatitis: After Your Visit Your [...] help for plant rashes. ?? Try an ygun-ddg-gjkumjk antihistamine such as diphenhydramine (Benadryl) or chlorpheniramine [...] more? Visit our health information library at [email or web address] You can also view health information on Stem[employer]te, your personal patient account. Log in or sign up today. Enter F270 in the search box to learn more about Dermatitis: After Your Visit. ?? [id number] GetThis, Incorporated. Care instructions adapted under license by [facility]. This care instruction is for use with your licensed healthcare professional. If you have questions about a medical condition or this instruction, always ask your healthcare professional. GetThis, [employer] disclaims any warranty or liability for your use of this information. Content Version: 9.9.025633; Last Revised: November 11, 2012 documented in [...] PM EDT Procedure [place] [address] Austin Simon MD [facility] [place] [address] documented as of this encounter Visit Diagnoses Diagnosis Neurodermatitis- Primary Lichenification and lichen simplex chronicus documented in this encounter Care Teams Hvac R Instructor Relationship Specialty Start Date End Date Von Miles MD [address] [place] [address] [place] [address] PCP - General 12/04/13 04/17/14 documented as of this encounter
--- OUTSIDE RECORDS SUMMARY | 2024-02-04 12:58 | XMS_ITS | Encounter Summary ---
Author Organization [facility] Address [address] [place] [address] Care Team Providers Care Radio Control Crane Operator Name Role Phone Casimiro Perez MD Primary Care Provider Nahed montes de oca Encounter Details Date Type Department Care Team (Late st Contact Info) Description 09/02/2019 Lab Requisition [facility] Pathology & Laboratory Medicine - [facility] [address] [place] [address] Unknown, Provider, Social History Tobacco Use Types [...] 4th Generation Negative Negative 09/04/2019 11:34 EDT [facility] Comment: If acute HIV-1 infection is suspected in a high risk ??patient, submit plasma specimen for HIV-1 RNA quantitation test. Fourth Generation assay performed on the Siemens Centaur. Blood VENOUS BLOOD / Unknown 09/01/2019 11:51 EST 09/03/2019 16:22 EDT Provider Unknown IMMUNOLOGY AND SEROL OGMicki ORDERABLES [facility] [address] [place] [address] documented in this encounter Visit Diagnoses Not on filedocumented in this encounter Care Teams Radio Control Crane Operator Relationship Specialty Start Date End Date Casimiro Perez MD PCP - General 05/03/15 documented as of this encounter
--- OUTSIDE RECORDS SUMMARY | 2024-02-04 12:58 | XMS_ITS | Encounter Summary ---
Author Organization [facility] [place] [address] Care Team Providers Care Ladle Cleaner Name Role Phone Von Miles MD Primary Care Provider [phone] Reason for Visit * Reason Comments Follow-up Encounter Details Date Type Department Care Team (Late st Contact Info) Description 02/06/2014 2:45 PM EDT Office Visit Dermatology at [place] [address] [place] [address] Sixto Doty MD 580 [facility], [place] [address] Neurodermatitis (Primary Dx) Social History Tobacco Use Types Packs/Day Years Used Date Smoking Tobacco: Never Sex and Gender Information Value Date Recorded Sex Assigned at Not on file Gender Identity Not on file Sexual Orientation Not on file documented as of this encounter Patient Instructions * Patient Instructions* Sarai Acosta LPN - 02/06/2014 3:18 PM EDT [facility] Dermatitis: After Your Visit Your Care [...] help for plant rashes. ?? Try an brls-jvq-zqjftes antihistamine such as diphenhydramine (Benadryl) or chlorpheniramine [...] more? Visit our health information library at [email or web address] You can also view health information on LIVELENZ, your personal patient account. Log in or sign up today. Enter F270 in the search box to learn more about Dermatitis: After Your Visit. ?? [id number] Snaptee, Incorporated. Care instructions adapted under license by [facility]. This care instruction is for use with your licensed healthcare professional. If you have questions about a medical condition or this instruction, always ask your healthcare professional. Healthwise, [employer] disclaims any warranty or liability for your use of this information. Content Version: 9.9.667635; Last Revised: November 11, 2012 documented in [...] 2:20 PM EDT [place] [address] Austin Simon MD [facility] [place] [address] documented as of this encounter Visit Diagnoses Diagnosis Neurodermatitis- Primary Lichenification and lichen simplex chronicus documented in this encounter Care Teams Ladle Cleaner Relationship Specialty Start Date End Date Von Miles MD [address] [place] [address] [place] [address] PCP - General 12/04/13 04/17/14 documented as of this encounter
--- OUTSIDE RECORDS SUMMARY | 2024-02-04 12:58 | XMS_ITS | Clinical Summary ---
Author Organization [facility] Address [address] [place] [address] Care Team Providers Care Senior Engineer Name Role Phone Casimiro Perez MD Primary Care Provider Nahed rubiole Encounters Date Type Department Care Team Description 01/20/2024 Lab Requisition [facility] Pathology & Laboratory Medicine - [facility] [address] [place] [address] Reinier Arceo RPA Chronic combined systolic (congestive) [...] explore management options, if applicable. 01/21/2024 15:06 [facility] Final Diagnosis A. SKIN OF BACK, MIDLINE, PUNCH BIOPSY: - Epidermal ulceration with sparse superficial dermal inflammation. See comment. 01/21/2024 15:06 [facility] Diagnosis Comment Numerous sections [...] the lack of intact epidermis. 01/21/2024 15:06 [facility] Attestation By the signature below, the attending physician certifies that they have 1) personally conducted a gross and/or microscopic examination of the described specimen(s), and/or personally interpreted the results of laboratory testing of the described specimen(s), and 2) personally rendered or confirmed the above diagnosis. 01/21/2024 15:06 [facility] at 1506 Microscopic Description [...] No scabies organisms are identified. 01/21/2024 15:06 [facility] Clinical History Unknown dermatitis, macular papular rash with generalized urticaria; clinical diagnosis code: L20.9 01/21/2024 15:06 [facility] Gross Description A. Received in formalin labelled with proper patient identification (initials C, K) and M back is a punch biopsy of canales skin (0.3 cm in diameter by 0.6 cm in depth). The specimen is submitted intact in A1. ELSIE VANESSA(ASCP) 01/20/2024 9:31 01/21/2024 15:06 EDT [facility] Performing Lab [facility] 01/21/2024 15:06 EDT [facility] Scanned Images 01/21/2024 15:06 EDT [facility] Tissue SPECIMEN FROM SKIN / Unknown 01/19/2024 14:00 EDT 01/20/2024 8:26 EDT Reinier Arceo [facility] PATHOLOGY ORDERAB LES [facility] [address] [place] [address] from Last 3 Months Care Teams Senior Engineer Relationship Specialty Start Date End Date Casimiro Perez MD PCP - General 05/03/15
--- OUTSIDE RECORDS SUMMARY | 2024-02-04 12:58 | XMS_ITS | Encounter Summary ---
Author Organization [facility] Address [address] [place] [address] Care Team Providers Care Stack Clerk Name Role Phone Casimiro Perez MD Primary Care Provider Nahed montes de oca Encounter Details Date Type Department Care Team (Late st Contact Info) Description 09/02/2019 Lab Requisition [facility] Pathology & Laboratory Medicine - [facility] [address] [place] [address] Unknown, Provider, Social History Tobacco Use Types [...] <1.2 <4.0 U/mL 09/04/2019 14:27 EDT [facility] Comment: A negative result may be due to IgA deficiency and does not rule out celiac disease. ? Negative: ??<4.0 U/mL ? Weak Positive: ??4.0 - 10.0 U/mL ? Positive: ??>10.0 U/mL Results were obtained with the cafegiveA Lite R h-tTG IgA WENDY assay on the Dynex DSX. IgA 279 85 - 499 mg/dL 09/04/2019 14:27 EDT [facility] Celiac Disease Interpretation Negative Serology. Celiac disease unlikely. Approximately 10% of patients with celiac disease are seronegative. Patients who are already adhering to a gluten-free diet may also be seronegative. If celiac disease is highly clinically suspected, referral to gastroenterology for additional evaluation is recommended. 09/04/2019 14:27 EDT [facility] Blood VENOUS BLOOD / Unknown 09/01/2019 11:51 EST 09/03/2019 16:21 EDT Provider Unknown IMMUNOLOGY AND SEROL ROSSI ORDERABLES [facility] [address] [place] [address] documented in this encounter Visit Diagnoses Not on filedocumented in this encounter Care Teams Stack Clerk Relationship Specialty Start Date End Date Casimiro Perez MD PCP - General 05/03/15 documented as of this encounter
--- OUTSIDE RECORDS SUMMARY | 2024-02-04 12:58 | XMS_ITS | Encounter Summary ---
Author Organization [facility] Address [address] [place] [address] Care Team Providers Care Mortgage Professional Name Role Phone Casimiro Perez MD Primary Care Provider Nahed montes de oca Encounter Details Date Type Department Care Team (Late st Contact Info) Description 02/10/2023 Lab Requisition [facility] Pathology & Laboratory Medicine - [facility] [address] [place] [address] Outr Resulting Lab, Provider Social History Tobacco [...] 873 See Note mg/dL 02/10/2023 22:35 EDT [facility] Comment: NOTE: Reference range has not been established for urea nitrogen concentration in random urine specimens. Urine URINE / Unknown 02/10/2023 1 1:53 EDT 02/10/2023 21:55 EDT Provider Outr Resulting Lab URINALYSIS O RDERABLES [facility] [address] [place] [address] documented in this encounter Visit Diagnoses Not on filedocumented in this encounter Care Teams Mortgage Professional Relationship Specialty Start Date End Date Casimiro Perez MD PCP - General 05/03/15 documented as of this encounter
--- OUTSIDE RECORDS SUMMARY | 2024-02-04 12:58 | XMS_ITS | Encounter Summary ---
Author Organization [facility] [place] [address] Care Team Providers Care Parts Data Writer Name Role Phone Reina Alcala APRN Primary Care Provider [phone] Reason for Visit * Reason Comments Follow-up Encounter Details Date Type Department Care Team ([facility] st Contact Info) Description 05/22/2014 1:30 PM EST Office Visit Dermatology at [place] [address] [facility] [place] [address] Sixto Doty MD [address] [facility] [address], [place] [address] Neurodermatitis Discharge Disposition: Home Social History Tobacco Use Types Packs/Day Years Used Date Smoking Tobacco: Never Sex and Gender Information Value Date Recorded Sex Assigned at Not on file Gender Identity Not on file Sexual Orientation Not on file documented as of this encounter Patient Instructions * Patient Instructions* Sarai Acosta LPN - 05/22/2014 1:14 PM EST [facility] Psoriasis: After Your Visit Your Care Instructions Psoriasis (say wuj-RK-rm-ruel) is a long-term skin problem that causes [...] still damp. This seals in moisture. Use gmcs-kqm-panwvoz products that your doctor suggests. These may [...] more? Visit our health information library at [email or web address] You can also view health information on Neuron Systems, your personal patient account. Log in or sign up today. Enter U759 in the search box to learn more about Psoriasis: After Your Visit. ?? [id number] [employer]. Care instructions adapted under license by [facility]. This care instruction is for use with your licensed healthcare professional. If you have questions about a medical condition or this instruction, always ask your healthcare professional. [employer] disclaims any warranty or liability for your use of this information. Content Version: 9.9.567220; Last Revised: January 31, 2013 documented in [...] 2:20 PM EDT [place] [address] Austin Simon MD [facility] [place] [address] documented as of this encounter Visit Diagnoses Diagnosis Neurodermatitis Lichenification and lichen simplex chronicus documented in this encounter Care Teams Parts Data Writer Relationship Specialty Start Date End Date Reina Alcala APRN [address] [place] [address] ANNALISA BOLAND [address] PCP - General 04/18/14 01/17/23 documented as of this encounter
--- OUTSIDE RECORDS SUMMARY | 2024-02-04 12:58 | XMS_ITS | Encounter Summary ---
Author Organization [facility] [place] [address] Care Team Providers Care Call Out Operator Name Role Phone Von Miles MD Primary Care Provider [phone] Reason for Visit * Reason Comments Follow-up Encounter Details Date Type Department Care Team (Late st Contact Info) Description 01/02/2014 1:45 PM EDT Office Visit Dermatology at [address] [phone] Sixto Doty MD 580 [facility] [place] [address] Neurodermatitis (Primary Dx) Social History [...] mother who is in a alf, the [employer] in [place], and there is a monthly bill of $2000 due, which her estate is barely able to cover, and he is getting [place] Medicaid payments to help cover this. However, the checks are usually late, and he feels pressured by staff at [facility] to make the payments when he is [...] 2:20 PM EDT [place] [address] [facility] [place] [address] documented as of this encounter Visit Diagnoses Diagnosis Neurodermatitis- Primary Lichenification and lichen simplex chronicus documented in this encounter Care Teams Call Out Operator Relationship Specialty Start Date End Date Von Miles MD [address] [place] [address] [place] [address] PCP - General 12/04/13 04/17/14 documented as of this encounter
--- OUTSIDE RECORDS SUMMARY | 2024-02-04 12:58 | XMS_ITS | Encounter Summary ---
Author Organization [facility] Address [address] [place] [address] Care Team Providers Care Acid Concentrator Name Role Phone Casimiro Perez MD Primary Care Provider Nahed montes de oca Encounter Details Date Type Department Care Team (Late st Contact Info) Description 09/11/2021 Lab Requisition [facility] Pathology & Laboratory Medicine - [facility] [address] [place] [address] Outr Resulting Lab, Provider Social History Tobacco [...] 0.0 - 4.5 ng/mL 09/11/2021 18:18 EDT [facility] Blood VENOUS BLOOD / Unknown 09/10/2021 16:00 EDT 09/11/2021 17:17 EDT Narrative [facility] - 09/11/2021 18:18 EDT NOTE: Serum PSA concentration should not be interpreted as absolute evidence for the presence or absence of malignant disease. Assayed on Siemens ADVIA MyPrepAppaur XPT using chemiluminescent technology.??Values obtained by using different assay methods cannot be used interchangeably. Provider Outr Resulting Lab CHEMISTRY & BLOOD GAS ORDERABLES [facility] [address] [place] [address] documented in this encounter Visit Diagnoses Not on filedocumented in this encounter Care Teams Acid Concentrator Relationship Specialty Start Date End Date Casimiro Perez MD PCP - General 05/03/15 documented as of this encounter
--- OUTSIDE RECORDS SUMMARY | 2024-02-04 12:58 | XMS_ITS | Encounter Summary ---
Author Organization [facility] Address [address] [place] [address] Care Team Providers Care Wood Flour Miller Name Role Phone Casimiro Perez MD Primary Care Provider Nahed montes de oca Encounter Details Date Type Department Care Team (Late st Contact Info) Description 01/20/2024 Lab Requisition [facility] Pathology & Laboratory Medicine - [facility] [address] [place] [address] Reinier Arceo, [facility] [address] [address] [place] [address] Chronic combined systolic (congestive) and [...] management options, if applicable. 01/21/2024 15:06 EDT [facility] Final Diagnosis A. SKIN OF BACK, MIDLINE, PUNCH BIOPSY: - Epidermal ulceration with sparse superficial dermal inflammation. See comment. 01/21/2024 15:06 [facility] Diagnosis Comment Numerous sections [...] the lack of intact epidermis. 01/21/2024 15:06 [facility] Attestation By the signature below, the attending physician certifies that they have 1) personally conducted a gross and/or microscopic examination of the described specimen(s), and/or personally interpreted the results of laboratory testing of the described specimen(s), and 2) personally rendered or confirmed the above diagnosis. 01/21/2024 15:06 [facility] at 1506 Microscopic Description [...] No scabies organisms are identified. 01/21/2024 15:06 [facility] Clinical History Unknown dermatitis, macular papular rash with generalized urticaria; clinical diagnosis code: L20.9 01/21/2024 15:06 [facility] Gross Description A. Received in formalin labelled with proper patient identification (initials C, K) and M back is a punch biopsy of canales skin (0.3 cm in diameter by 0.6 cm in depth). The specimen is submitted intact in A1. ELSIE VANESSA(ASCP) 01/20/2024 9:31 01/21/2024 15:06 [facility] Performing Lab [facility] 01/21/2024 15:06 EDT [facility] Scanned Images 01/21/2024 15:06 EDT [facility] Tissue SPECIMEN FROM SKIN / Unknown 01/19/2024 14:00 EDT 01/20/2024 8:26 EDT Reinier Arceo [facility] PATHOLOGY ORDERAB LES [facility] [address] [place] [address] documented in this encounter Visit Diagnoses Diagnosis Chronic combined systolic (congestive) and diastolic (congestive) heart failure (HCC-CMS) Atopic dermatitis, unspecified documented in this encounter Care Teams Wood Flour Miller Relationship Specialty Start Date End Date Casimiro Perez MD PCP - General 05/03/15 documented as of this encounter
--- OUTSIDE RECORDS SUMMARY | 2024-02-04 12:58 | XMS_ITS | Referral Summary ---
Author Organization [facility] Address [address] [place] [address] Care Team Providers Care Printing Equipment Mechanic Apprentice Name Role Phone Casimiro Perez MD Primary Care Provider Nahed rubiole Encounters Date Type Department Care Team Description 01/20/2024 Lab Requisition [facility] Pathology & Laboratory Medicine - [facility] [address] [place] [address] Reinier Arceo RPA Chronic combined systolic (congestive) [...] management options, if applicable. 01/21/2024 15:06 EDT [facility] Final Diagnosis A. SKIN OF BACK, MIDLINE, PUNCH BIOPSY: - Epidermal ulceration with sparse superficial dermal inflammation. See comment. 01/21/2024 15:06 EDT [facility] Diagnosis Comment Numerous sections [...] lack of intact epidermis. 01/21/2024 15:06 [facility] Attestation By the signature below, the attending physician certifies that they have 1) personally conducted a gross and/or microscopic examination of the described specimen(s), and/or personally interpreted the results of laboratory testing of the described specimen(s), and 2) personally rendered or confirmed the above diagnosis. 01/21/2024 15:06 [facility] at 1506 Microscopic Description [...] scabies organisms are identified. 01/21/2024 15:06 [facility] Clinical History Unknown dermatitis, macular papular rash with generalized urticaria; clinical diagnosis code: L20.9 01/21/2024 15:06 [facility] Gross Description A. Received in formalin labelled with proper patient identification (initials C, K) and M back is a punch biopsy of canales skin (0.3 cm in diameter by 0.6 cm in depth). The specimen is submitted intact in A1. ELSIE VANESSA(ASCP) 01/20/2024 9:31 01/21/2024 15:06 [facility] Performing Lab [facility] 01/21/2024 15:06 [facility] Scanned Images 01/21/2024 15:06 [facility] Tissue SPECIMEN FROM SKIN / Unknown 01/19/2024 14:00 EDT 01/20/2024 8:26 EDT Reinier Arceo RPA PATHOLOGY ORDERAB LES [facility] [address] [place] [address] from Last 3 Months Care Teams Printing Equipment Mechanic Apprentice Relationship Specialty Start Date End Date Casimiro Perez MD PCP - General 05/03/15
[2024-02-04 13:08] LABS: Anion Gap 12.2 mmol/L (3-11); CO2 25.8 mmol/L (21.0-32.0); CREATININE 3.5 mg/dL (0.70-1.30); Calcium 8.5 mg/dL (8.5-10.1); Chloride 102 mmol/L (98-107); Estimated GFR 18.12 (mL/min/1.73m2); Glucose 271 mg/dL (74-106); Potassium 4.4 mmol/L (3.5-5.1); Sodium 140 mmol/L (136-145)
[2024-02-04 13:15] LABS: BUN 102 mg/dL (7-18)
== END 2024-02-04 12:39 | disposition home or self-care (01) ==
LOC: NCHCN 12:38
PROVIDERS: PCP Physician Assistant; Visit Provider Physician Assistant
DX: E11.69 Type 2 diabetes mellitus with other specified complication (principal); N17.9 Acute kidney failure, unspecified; I50.40 Unspecified combined systolic (congestive) and diastolic (congestive) heart failure
CPT/HCPCS: 80048

== ENCOUNTER 2024-02-22 14:51 | Outpatient (REF) | payer MEDICARE, MEDICAID, SELFPAY ==
--- OUTSIDE RECORDS SUMMARY | 2024-02-22 14:54 | XMS_ITS | Data Portability ---
Author Organization [place] - [facility] [place] [address] Assessment Encounter Date Assessment Date Assessment LastModified by Organization Details LastModified Time 02/22/2024 02/22/2024 prednisone 10 mg [email or web address] Not available 02/22/2024 13:08:53 Plan of Treatment Reminders Order Date Submit Date Provider Last Modified By Organization Details Last Modified Time Details Appointments Follow Up 2023 01:00P M Not available Not available Not available Office Visit 2023 01:30P M Not available Not available Not available Follow Up 2023 02:00P M Not available Not available Not available Counselin g 60 2023 03:30P M Not available Not available Not available Lab BMP, serum or plasma 2023 024 [email or web address] 63 [facility] (Registration ), [address] [place] [address] [place], [address], 02/22/2024 13:35:20 Referral None recorded. Procedures None recorded. Surgeries None recorded. Imaging None recorded. Medication Orders cetirizin e 10 mg tablet 2023 024 [facility] [place], [address], 02/11/2024 12:37:43 Children' s Zyrtec Allergy 1 mg/mL oral solution 2023 024 [email or web address] 63 [facility], [address] [place], [address], 01/27/2024 15:15:23 permethri n 5 % topical cream 2023 024 [facility], [address] [place], [address], 02/22/2024 12:05:36 mupirocin 2 % topical ointment 2023 024 [facility], [address] [place], [address], 02/22/2024 13:25:11 Patient TargetsNo targets recorded. Patient Instructions Encounter Date Encounter Id Patient Instructions Last Modified By Organization Details Last Modified Time 01/24/2024 [id number] Today, we can ad d a low dose cetirizine (a daily antihistamine) to your prednisone and creams, as well as local skin care. (cool showers, cool washcloths to itching areas, use of non-scented emollient lotions). Keep your fingernail very short, and wear gloves or mittens to bed to prevent further scratching. [facility] may take up to 7-10 business days to receive the referral sent by your primary care office on 01/19/24. You can contact them directly at [phone] to get an appointment on the books for February 2024 at the earliest, and they can hopefully prioritize the visit to a more semi-urgent referral upon receiving notes from India Arceo's office to get you in earlier. For now, the most symptom improvement you will get will likely be by taking the prednisone that has been prescribed and will be delivered today from [facility]. 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 CHF. More short of breath Referring Physician: [facility], Encounter Date: 10/12/2023 Control Room Technician Referral for A topic dermatitis subacute resistant generalize urticarial and excoriated papular rash sparing only face, hands, feet, and scalp. Punch biopsy taken today Referring Physician: [facility], Encounter Date: 01/19/2024 Results Created Date Observation Date Name Description Value Unit Range Abnormal Flag Note LastModifiedBy Organization Detail LastModifiedTime 01/19/2001/19/2024 COMPL ETE BLOOD COUNT NO DIFF WBC 8.18 10_3/ uL 4.4-10 .8 normal Not Available [address] [place], [address] 01/19/2024 16:35:06 01/19/2001/19/2024 COMPL ETE BLOOD COUNT NO DIFF RBC 3.94 10_6/ uL 4.36-5 .78 low Not Available [address] [place], [address] 01/19/2024 16:35:06 01/19/2001/19/2024 COMPL ETE BLOOD COUNT NO DIFF HGB 11.9 g/dL 13.5-1 7.5 low Not Available [address] [place], [address] 01/19/2024 16:35:06 01/19/20 24 01/19/2024 COMPL ETE BLOOD COUNT NO DIFF HCT 37.2 % 40.0-5 0.0 low Not Available [address] [place], [address] 01/19/2024 16:35:06 01/19/2001/19/2024 COMPL ETE BLOOD COUNT NO DIFF MCV 94 fL 80-95 normal Not Available [facility] [address] [place], [address] 01/19/2024 16:35:06 01/19/20 24 01/19/2024 COMPL ETE BLOOD COUNT NO DIFF MCH 30.2 pg 27.0-3 3.0 normal Not Available [address] [place], [address] 01/19/2024 16:35:06 01/19/2001/19/2024 COMPL ETE BLOOD COUNT NO DIFF MCHC 32.0 % 32.0-3 6.0 normal Not Available [address] [place], [address] 01/19/2024 16:35:06 01/19/20 24 01/19/2024 COMPL ETE BLOOD COUNT NO DIFF RDW 16.3 % 11.8-1 4.1 high Not Available [address] [place], [address] 01/19/2024 16:35:06 01/19/20 24 01/19/2024 COMPL ETE BLOOD COUNT NO DIFF platelet count 207 10_3/ uL 130-40 0 normal Not Available [address] [place], [address] 01/19/2024 16:35:06 01/19/20 24 01/19/2024 COMPL ETE BLOOD COUNT NO DIFF MPV 13.0 fL 8.0-11 .0 high Not Available [address] [place], [address] 01/19/2024 16:35:06 01/19/20 24 01/19/2024 COMPR EHENS MABLE METAB OLIC PANEL calcium 8.7 mg/dL 8.5-10 .1 normal Not Available [address] [place], [address] 01/19/2024 16:58:08 01/19/20 24 01/19/2024 COMPR EHENS MABLE METAB OLIC PANEL glucose 171 mg/dL 74-106 high Not Available [facility] [address] [place], [address] 01/19/2024 16:58:08 01/19/20 24 01/19/2024 COMPR EHENS MABLE METAB OLIC PANEL BUN 49 mg/dL 7-18 high Not Available [facility] [address] [place], [address] 01/19/2024 16:58:08 01/19/20 24 01/19/2024 COMPR EHENS MABLE METAB OLIC PANEL creatinine 3.0 mg/dL 0.70-1 .30 high Not Available [address] [place], [address] 01/19/2024 16:58:08 01/19/20 24 01/19/2024 COMPR EHENS MABLE METAB OLIC PANEL estimated GFR 21.80 mL/min /1.73m 2 The eGFR is calcu lated from a serum creat inine using the CKD-E PI 2020 equat ion. Other varia bles requi red for the equat ion are gende r and age; this equat ion does not inclu de a race coeff icien t. This equat ion has simil ar overa ll perfo rmanc e to previ ous equat ions excep t value s may diffe r, in parti cular , in patie nts with highe r value s of eGFR and young er-ag ed adult s. Not Available [address] [place], [address] 01/19/2024 16:58:08 01/19/2001/19/2024 COMPR EHENS MABLE METAB OLIC PANEL total protein 6.1 g/dL 6.4-8. 2 low Not Available [address] [place], [address] 01/19/2024 16:58:08 01/19/20 24 01/19/2024 COMPR EHENS MABLE METAB OLIC PANEL albumin 3.3 g/dL 3.4-5. 0 low Not Available [address] [place], [address] 01/19/2024 16:58:08 01/19/20 24 01/19/2024 COMPR EHENS MABLE METAB OLIC PANEL bilirubin, total 0.79 mg/dL 0.2-1. 0 normal Not Available [address] [place], [address] 01/19/2024 16:58:08 01/19/20 24 01/19/2024 COMPR EHENS MABLE METAB OLIC PANEL alk phos 73 U/L 46-116 normal Not Available [address] [place], [address] 01/19/2024 16:58:08 01/19/20 24 01/19/2024 COMPR EHENS MABLE METAB OLIC PANEL sodium 142 mmol/ L 136-14 5 normal Not Available [address] [place], [address] 01/19/2024 16:58:08 01/19/20 24 01/19/2024 COMPR EHENS MABLE METAB OLIC PANEL potassium 5.6 mmol/ L 3.5-5. 1 high Not Available [address] [place], [address] 01/19/2024 16:58:08 01/19/20 24 01/19/2024 COMPR EHENS MABLE METAB OLIC PANEL chloride 108 mmol/ L 98-107 high Not Available [address] [place], [address] 01/19/2024 16:58:08 01/19/20 24 01/19/2024 COMPR EHENS MABLE METAB OLIC PANEL CO2 24.7 mmol/ L 21.0-3 2.0 normal Not Available [address] [place], [address] 01/19/2024 16:58:08 01/19/20 24 01/19/2024 COMPR EHENS MABLE METAB OLIC PANEL anion gap 9.3 mmol/ L 3-11 normal Not Available [address] [place], [address] 01/19/2024 16:58:08 01/19/20 24 01/19/2024 COMPR EHENS MABLE METAB OLIC PANEL AST 21 U/L 15-37 normal Not Available [facility] [address] [place], [address] 01/19/2024 16:58:08 01/19/20 24 01/19/2024 COMPR EHENS MABLE METAB OLIC PANEL ALT 33 U/L 16-63 normal Not Available [facility] [address] [place], [address] 01/19/2024 16:58:08 01/19/2001/19/2024 NT-NE OBNP nt-probnp > 98457 pg/mL <300 high NT-pr oBNP value s <300 pg/mL have a 98% negat mable predi ctive value for exclu ding acute conge stive heart failu re (CHF) . NT-pr oBNP value s >450 pg/mL are consi stent with CHF in adult s <50 years of age. A diagn ostic cut-o ff of 900 pg/mL has been sugge sted in adult s >50 years of age in the absen ce of renal failu re. A cut-o ff of 1200 pg/mL for patie nts with an eGFR less than 60 yield s a diagn ostic sensi tivit y and speci ficit y of 89% and 72% for acute conge stive failu re. NOTE: Supra -phys iolog ic doses of Bioti n(B7) may cause false negat mable resul ts. Not Available [facility] (Registration ) [address] [place] [address] [place], [address], 01/19/2024 16:58:09 01/19/20 24 01/19/2024 IRON AND IBCT iron 48 ug/dL 65-175 low Not Available [facility] (Registration ) [address] [place] [address] [place], [address], 01/19/2024 17:30:12 01/19/20 24 01/19/2024 IRON AND IBCT total iron binding capacity 232 ug/dL 250-45 0 low Not Available [facility] (Registration ) [address] [place] [address] [place], [address], 01/19/2024 17:30:12 01/19/20 24 01/19/2024 IRON AND IBCT transferrin sat 21 % 20-55 normal Not Available [facility] (Registration ) [address] [place] [address] [place], [address], 01/19/2024 17:30:12 01/27/20 24 01/27/2024 COMPL ETE BLOOD COUNT W/DIF F WBC 6.61 10_3/ uL 4.4-10 .8 normal Not Available [address] [place], [address] 01/27/2024 18:12:09 01/27/20 24 01/27/2024 COMPL ETE BLOOD COUNT W/DIF F RBC 3.78 10_6/ uL 4.36-5 .78 low Not Available [address] [place], [address] 01/27/2024 18:12:09 01/27/20 24 01/27/2024 COMPL ETE BLOOD COUNT W/DIF F HGB 11.5 g/dL 13.5-1 7.5 low Not Available [address] [place], [address] 01/27/2024 18:12:09 01/27/20 24 01/27/2024 COMPL ETE BLOOD COUNT W/DIF F HCT 35.5 % 40.0-5 0.0 low Not Available [address] [place], [address] 01/27/2024 18:12:09 01/27/20 24 01/27/2024 COMPL ETE BLOOD COUNT W/DIF F MCV 94 fL 80-95 normal Not Available [facility] [address] [place], [address] 01/27/2024 18:12:09 01/27/20 24 01/27/2024 COMPL ETE BLOOD COUNT W/DIF F MCH 30.4 pg 27.0-3 3.0 normal Not Available [address] [place], [address] 01/27/2024 18:12:09 01/27/20 24 01/27/2024 COMPL ETE BLOOD COUNT W/DIF F MCHC 32.4 % 32.0-3 6.0 normal Not Available [address] [place], [address] 01/27/2024 18:12:09 01/27/20 24 01/27/2024 COMPL ETE BLOOD COUNT W/DIF F RDW 16.3 % 11.8-1 4.1 high Not Available [address] [place], [address] 01/27/2024 18:12:09 01/27/20 24 01/27/2024 COMPL ETE BLOOD COUNT W/DIF F platelet count 144 10_3/ uL 130-40 0 normal Not Available [address] [place], [address] 01/27/2024 18:12:09 01/27/20 24 01/27/2024 COMPL ETE BLOOD COUNT W/DIF F MPV 12.2 fL 8.0-11 .0 high Not Available [address] [place], [address] 01/27/2024 18:12:09 01/27/20 24 01/27/2024 COMPL ETE BLOOD COUNT W/DIF F neutrophils % 90.7 % Not Available [address] [place], [address] 01/27/2024 18:12:09 01/27/20 24 01/27/2024 COMPL ETE BLOOD COUNT W/DIF F lymphocytes % 5.3 % Not Available [address] [place], [address] 01/27/2024 18:12:09 01/27/20 24 01/27/2024 COMPL ETE BLOOD COUNT W/DIF F monocytes % 3.3 % Not Available [address] [place], [address] 01/27/2024 18:12:09 01/27/20 24 01/27/2024 COMPL ETE BLOOD COUNT W/DIF F eosinophils % 0.2 % Not Available [address] [facility] [place], [address] 01/27/2024 18:12:09 01/27/20 24 01/27/2024 COMPL ETE BLOOD COUNT W/DIF F basophils % 0.0 % Not Available [address] [place], [address] 01/27/2024 18:12:09 01/27/20 24 01/27/2024 COMPL ETE BLOOD COUNT W/DIF F immature grans % 0.5 % Not Available [address] [place], [address] 01/27/2024 18:12:09 01/27/20 24 01/27/2024 COMPL ETE BLOOD COUNT W/DIF F nucleated RBC 0.0 % 0.0-0. 3 normal Not Available [address] [place], [address] 01/27/2024 18:12:09 01/27/20 24 01/27/2024 COMPL ETE BLOOD COUNT W/DIF F absolute neutrophil count 6.00 10_3/ uL 1.2-6. 7 normal Not Available [address] [place], [address] 01/27/2024 18:12:09 01/27/20 24 01/27/2024 COMPL ETE BLOOD COUNT W/DIF F absolute lymphocyte count 0.35 10_3/ uL 1.2-3. 4 low Not Available [address] [place], [address] 01/27/2024 18:12:09 01/27/20 24 01/27/2024 COMPL ETE BLOOD COUNT W/DIF F absolute monocyte count 0.22 10_3/ uL 0.1-0. 8 normal Not Available [address] [place], [address] 01/27/2024 18:12:09 01/27/20 24 01/27/2024 COMPL ETE BLOOD COUNT W/DIF F absolute eosinophil count 0.01 10_3/ uL 0.0-0. 7 normal Not Available [address] [place], [address] 01/27/2024 18:12:09 01/27/20 24 01/27/2024 COMPL ETE BLOOD COUNT W/DIF F absolute basophil count 0.00 10_3/ uL 0.0-0. 2 normal Not Available [address] [place], [address] 01/27/2024 18:12:09 01/27/20 24 01/27/2024 PROTH ROMBI N TIME prothrombin time 12.1 sec 9.1-11 .1 high Not Available [address] [place], [address] 01/27/2024 18:18:05 01/27/20 24 01/27/2024 PROTH ROMBI N TIME INR 1.2 0.9-1. 1 high Recom janet d INR thera peuti c range s for orall y admin ister ed drugs are as follo ws: -Bright dard Inten sity 2.0 to 3.0 -High er Inten sity 3.0 to 4.5 Not Available [address] [place], [address] 01/27/2024 18:18:05 01/27/20 24 01/27/2024 COMPR EHENS MABLE METAB OLIC PANEL calcium 8.2 mg/dL 8.5-10 .1 low Not Available [address] [place], [address] 01/27/2024 18:25:06 01/27/20 24 01/27/2024 COMPR EHENS MABLE METAB OLIC PANEL glucose 308 mg/dL 74-106 high Not Available [facility] [address] [place], [address] 01/27/2024 18:25:06 01/27/20 24 01/27/2024 COMPR EHENS MABLE METAB OLIC PANEL BUN 63 mg/dL 7-18 high Not Available [facility] [address] [place], [address] 01/27/2024 18:25:06 01/27/20 24 01/27/2024 COMPR EHENS MABLE METAB OLIC PANEL creatinine 3.5 mg/dL 0.70-1 .30 high Not Available [address] [place], [address] 01/27/2024 18:25:06 01/27/20 24 01/27/2024 COMPR EHENS MABLE METAB OLIC PANEL estimated GFR 18.12 mL/min /1.73m 2 The eGFR is calcu lated from a serum creat inine using the CKD-E PI 2020 equat ion. Other varia bles requi red for the equat ion are gende r and age; this equat ion does not inclu de a race coeff icien t. This equat ion has simil ar overa ll perfo rmanc e to previ ous equat ions excep t value s may diffe r, in parti cular , in patie nts with highe r value s of eGFR and young er-ag ed adult s. Not Available [address] [place], [address] 01/27/2024 18:25:06 01/27/20 24 01/27/2024 COMPR EHENS MABLE METAB OLIC PANEL total protein 5.8 g/dL 6.4-8. 2 low Not Available [address] [place], [address] 01/27/2024 18:25:06 01/27/20 24 01/27/2024 COMPR EHENS MABLE METAB OLIC PANEL albumin 3.0 g/dL 3.4-5. 0 low Not Available [address] [place], [address] 01/27/2024 18:25:06 01/27/20 24 01/27/2024 COMPR EHENS MABLE METAB OLIC PANEL bilirubin, total 0.61 mg/dL 0.2-1. 0 normal Not Available [address] [place], [address] 01/27/2024 18:25:06 01/27/20 24 01/27/2024 COMPR EHENS MABLE METAB OLIC PANEL alk phos 100 U/L 46-116 normal Not Available [address] [place], [address] 01/27/2024 18:25:06 01/27/20 24 01/27/2024 COMPR EHENS MABLE METAB OLIC PANEL sodium 146 mmol/ L 136-14 5 high Not Available [address] [place], [address] 01/27/2024 18:25:06 01/27/20 24 01/27/2024 COMPR EHENS MABLE METAB OLIC PANEL potassium 4.7 mmol/ L 3.5-5. 1 normal Not Available [address] [place], [address] 01/27/2024 18:25:06 01/27/20 24 01/27/2024 COMPR EHENS MABLE METAB OLIC PANEL chloride 111 mmol/ L 98-107 high Not Available [address] [place], [address] 01/27/2024 18:25:06 01/27/20 24 01/27/2024 COMPR EHENS MABLE METAB OLIC PANEL CO2 23.4 mmol/ L 21.0-3 2.0 normal Not Available [address] [place], [address] 01/27/2024 18:25:06 01/27/20 24 01/27/2024 COMPR EHENS MABLE METAB OLIC PANEL anion gap 11.6 mmol/ L 3-11 high Not Available [address] [place], [address] 01/27/2024 18:25:06 01/27/20 24 01/27/2024 COMPR EHENS MABLE METAB OLIC PANEL AST 33 U/L 15-37 normal Not Available [facility] [address] [place], [address] 01/27/2024 18:25:06 01/27/20 24 01/27/2024 COMPR EHENS MABLE METAB OLIC PANEL ALT 75 U/L 16-63 high Not Available [facility] [address] [place], [address] 01/27/2024 18:25:06 01/27/20 24 01/27/2024 MAGNE SIUM magnesium 1.9 mg/dL 1.8-2. 4 normal Not Available [address] [place], [address] 01/27/2024 18:25:07 01/27/20 24 01/27/2024 TROPO LAINEY I troponin I < 50 NG/L < or =60 Not Available [address] [place], [address] 01/27/2024 18:29:06 01/27/20 24 01/27/2024 NT-NE OBNP nt-probnp > 14613 pg/mL <300 high NT-pr oBNP value s <300 pg/mL have a 98% negat malbe predi ctive value for exclu ding acute conge stive heart failu re (CHF) . NT-pr oBNP value s >450 pg/mL are consi stent with CHF in adult s <50 years of age. A diagn ostic cut-o ff of 900 pg/mL has been sugge sted in adult s >50 years of age in the absen ce of renal failu re. A cut-o ff of 1200 pg/mL for patie nts with an eGFR less than 60 yield s a diagn ostic sensi tivit y and speci ficit y of 89% and 72% for acute conge stive failu re. NOTE: Supra -phys iolog ic doses of Bioti n(B7) may cause false negat mable resul ts. Not Available [address] [place], [address] 01/27/2024 18:29:07 01/27/20 24 01/27/2024 URINA LYSIS color Yellow yellow Not Available [facility] [address] [place], [address] 01/27/2024 19:26:22 01/27/20 24 01/27/2024 URINA LYSIS clarity Clear clear Not Available [facility] [address] [place], [address] 01/27/2024 19:26:22 01/27/20 24 01/27/2024 URINA LYSIS specific gravity >= 1.030 1.005- 1.025 high Not Available [address] [place], [address] 01/27/2024 19:26:22 01/27/20 24 01/27/2024 URINA LYSIS pH 5.5 5-8 normal Not Available [facility] [address] [place], [address] 01/27/2024 19:26:22 01/27/20 24 01/27/2024 URINA LYSIS leukocyte esterase Trace negati ve abnormal Not Available [address] [place], [address] 01/27/2024 19:26:22 01/27/20 24 01/27/2024 URINA LYSIS nitrite Positi ve negati ve abnormal Not Available [address] [place], [address] 01/27/2024 19:26:22 01/27/20 24 01/27/2024 URINA LYSIS protein Negati ve mg/dL neg-tr jaden Not Available [address] [place], [address] 01/27/2024 19:26:22 01/27/20 24 01/27/2024 URINA LYSIS glucose Negati ve mg/dL negati ve Not Available [address] [place], [address] 01/27/2024 19:26:22 01/27/20 24 01/27/2024 URINA LYSIS ketones Negati ve mg/dL negati ve Not Available [address] [place], [address] 01/27/2024 19:26:22 01/27/20 24 01/27/2024 URINA LYSIS urobilinogen 0.2 mg/dL up to 0.2 Not Available [address] [place], [address] 01/27/2024 19:26:22 01/27/20 24 01/27/2024 URINA LYSIS bilirubin Negati ve negati ve Not Available [address] [place], [address] 01/27/2024 19:26:22 01/27/20 24 01/27/2024 URINA LYSIS blood Trace- intact negati ve abnormal Not Available [address] [place], [address] 01/27/2024 19:26:22 01/27/20 24 01/27/2024 HEMOG LOBIN A1C hemoglobin A1C 5.8 % <5.7 high Refer ence Range s <5.7 Dianne l 5.7-6 .4% Predi abete s 6.5% or great er Diagn ostic for diabe gabbie (if confi rmed) Refer ences : 1. Ameri can [facility] n. Clas sific ation and Diagn osis of Diabe gabbie. [facility] 2019 Jun;4 2(Sup pleme nt 1):S1 3-s28 . Not Available [address] [place], [address] 01/27/2024 20:47:43 01/27/20 24 01/27/2024 URINA LYSIS color Yellow yellow Not Available [facility] [address] [place], [address] 01/27/2024 22:37:58 01/27/20 24 01/27/2024 URINA LYSIS clarity Clear clear Not Available [facility] [address] [place], [address] 01/27/2024 22:37:58 01/27/20 24 01/27/2024 URINA LYSIS specific gravity >= 1.030 1.005- 1.025 high Not Available [address] [place], [address] 01/27/2024 22:37:58 01/27/20 24 01/27/2024 URINA LYSIS pH 5.5 5-8 normal Not Available [facility] [address] [place], [address] 01/27/2024 22:37:58 01/27/20 24 01/27/2024 URINA LYSIS leukocyte esterase Trace negati ve abnormal Not Available [address] [place], [address] 01/27/2024 22:37:58 01/27/20 24 01/27/2024 URINA LYSIS nitrite Positi ve negati ve abnormal Not Available [address] [place], [address] 01/27/2024 22:37:58 01/27/20 24 01/27/2024 URINA LYSIS protein Negati ve mg/dL neg-tr jaden Not Available [address] [place], [address] 01/27/2024 22:37:58 01/27/20 24 01/27/2024 URINA LYSIS glucose Negati ve mg/dL negati ve Not Available [address] [place], [address] 01/27/2024 22:37:58 01/27/20 24 01/27/2024 URINA LYSIS ketones Negati ve mg/dL negati ve Not Available [address] [place], [address] 01/27/2024 22:37:58 01/27/20 24 01/27/2024 URINA LYSIS urobilinogen 0.2 mg/dL up to 0.2 Not Available [address] [place], [address] 01/27/2024 22:37:58 01/27/20 24 01/27/2024 URINA LYSIS bilirubin Negati ve negati ve Not Available [address] [place], [address] 01/27/2024 22:37:58 01/27/20 24 01/27/2024 URINA LYSIS blood Trace- intact negati ve abnormal Not Available [address] [place], [address] 01/27/2024 22:37:58 01/27/20 24 01/27/2024 MICRO SCOPI C FINDI NGS WBC 5-10 hpf 0-5 Not Available [facility] [place] [address] [place], [address] 01/27/2024 22:37:58 01/27/20 24 01/27/2024 MICRO SCOPI C FINDI NGS RBC 0-2 hpf 0-2 Not Available [facility] [address] [place], [address] 01/27/2024 22:37:58 01/27/20 24 01/27/2024 MICRO SCOPI C FINDI NGS epithelial cells Few hpf negati ve Not Available [address] [place], [address] 01/27/2024 22:37:58 01/27/20 24 01/27/2024 MICRO SCOPI C FINDI NGS bacteria Few hpf negati ve Not Available [address] [place], [address] 01/27/2024 22:37:58 01/27/20 24 01/27/2024 MICRO SCOPI C FINDI NGS crystals Negati ve hpf negati ve Not Available [address] [place], [address] 01/27/2024 22:37:58 01/27/20 24 01/27/2024 MICRO SCOPI C FINDI NGS mucus Negati ve negati ve Not Available [address] [place], [address] 01/27/2024 22:37:58 01/27/20 24 01/27/2024 MICRO SCOPI C FINDI NGS casts Negati ve lpf negati ve Not Available [address] [place], [id number] 01/27/2024 22:37:58 01/27/20 24 01/27/2024 MICRO SCOPI C FINDI NGS C S indicated? Yes Not Available [address] [place], [address] 01/27/2024 22:37:58 01/27/20 24 01/27/2024 TROPO LAINEY I troponin I < 50 NG/L < or =60 Not Available [address] [place], [address] 01/27/2024 22:55:57 01/27/20 24 01/27/2024 RENAL PANEL calcium 8.1 mg/dL 8.5-10 .1 low Not Available [address] [place], [address] 01/27/2024 23:38:03 01/27/20 24 01/27/2024 RENAL PANEL phosphorus 4.7 mg/dL 2.6-4. 7 normal Not Available [address] [place], [address] 01/27/2024 23:38:03 01/27/20 24 01/27/2024 RENAL PANEL glucose 242 mg/dL 74-106 high Not Available [employer] [address] [place], [address] 01/27/2024 23:38:03 01/27/20 24 01/27/2024 RENAL PANEL BUN 65 mg/dL 7-18 high Not Available [facility] [address] [place], [address] 01/27/2024 23:38:03 01/27/20 24 01/27/2024 RENAL PANEL creatinine 3.4 mg/dL 0.70-1 .30 high Not Available [address] [place], [address] 01/27/2024 23:38:03 01/27/20 24 01/27/2024 RENAL PANEL estimated GFR 18.76 mL/min /1.73m 2 The eGFR is calcu lated from a serum creat inine using the CKD-E PI 2020 equat ion. Other varia bles requi red for the equat ion are gende r and age; this equat ion does not inclu de a race coeff icien t. This equat ion has simil ar overa ll perfo rmanc e to previ ous equat ions excep t value s may diffe r, in parti cular , in patie nts with highe r value s of eGFR and young er-ag ed adult s. Not Available [address] [place], [address] 01/27/2024 23:38:03 01/27/20 24 01/27/2024 RENAL PANEL albumin 3.0 g/dL 3.4-5. 0 low Not Available [address] [place], [address] 01/27/2024 23:38:03 01/27/20 24 01/27/2024 RENAL PANEL sodium 146 mmol/ L 136-14 5 high Not Available [address] [place], [address] 01/27/2024 23:38:03 01/27/20 24 01/27/2024 RENAL PANEL potassium 4.6 mmol/ L 3.5-5. 1 normal Not Available [address] [place], [address] 01/27/2024 23:38:03 01/27/20 24 01/27/2024 RENAL PANEL chloride 111 mmol/ L 98-107 high Not Available [address] [place], [address] 01/27/2024 23:38:03 01/27/20 24 01/27/2024 RENAL PANEL CO2 21.4 mmol/ L 21.0-3 2.0 normal Not Available [address] [place], [address] 01/27/2024 23:38:03 01/27/20 24 01/27/2024 RENAL PANEL anion gap 13.6 mmol/ L 3-11 high Not Available [address] [place], [address] 01/27/2024 23:38:03 01/27/20 24 01/29/2024 URINE CULTU RE urine culture Urine Cultu re ACTIO N ID AND SUSCE PTIBI LITY TO FOLLO W APPEA XIAO Gram Negat mable Mariana COLON Y COUNT Not Available [address] [place], [address] 01/29/2024 08:01:53 01/27/20 24 01/29/2024 URINE CULTU RE urine culture colon ies/m L >100, 000 Day 1 Resul t ISOLA GABBIE BELOW O:GNR (ORGA NISM ID: 1.1) - GRAM NEGAT MABLE MARIANA Urine Cultu re (ORGA NISM ID: 1.1) - COLON Y COUNT (ORGA NISM ID: 1.1) - >100, 000 Not Available [address] [place], [address] 01/29/2024 08:01:53 01/27/20 24 01/30/2024 URINE CULTU RE urine culture Urine Cultu re ACTIO N ID AND SUSCE PTIBI LITY TO FOLLO W APPEA XIAO Gram Negat amble Mariana APPEA XIAO Gram Negat mable Mariana APPEA XIAO Mixed Gram Posit mable Toño COLON Y COUNT Not Available [address] [place], [address] 01/30/2024 07:57:14 01/27/20 24 01/30/2024 URINE CULTU RE urine culture colon ies/m L >100, 000 COLON Y COUNT >100, 000 COLON Y COUNT <10,0 00 Day 1 Resul t ISOLA GABBIE BELOW Day 2 Resul t ISOLA GABBIE BELOW O:CIT BRA (ORGA NISM ID: 1.1) - CITRO BACTE R BRAAK II Urine Cultu re (ORGA NISM ID: 1.1) - COLON Y COUNT (ORGA NISM ID: 1.1) - >100, 000 O:GPF M (ORGA NISM ID: 1.2) - GRAM POSIT MABLE TOÑO ,MIXE D Urine Cultu re (ORGA NISM ID: 1.2) - COLON Y COUNT (ORGA NISM ID: 1.2) - <10,0 00 ORGAN ISM ID: 1.1 ANTIB IOTIC INTER PRETA TION CARMELO STATU S Cefaz niurka R >=64 F Cefta zidim e S <=1 F CEFTR IAXON E S <=1 F Cipro floxa abdifatah S <=0.2 5 F Genta micin S <=1 F Nitro furan toin S <=16 F Imipe nem S <=0.2 5 F Levof loxac in S <=0.1 2 F Tobra mycin S <=1 F Trime thopr im/Alexander lfame thoxa zole S <=20 F Piper acill in/Ta zobac multani S <=4 F Not Available [address] [place], [address] 01/30/2024 07:57:14 01/28/20 24 01/28/2024 COMPL ETE BLOOD COUNT NO DIFF WBC 7.15 10_3/ uL 4.4-10 .8 normal Not Available [address] [place], [address] 01/28/2024 07:09:24 01/28/20 24 01/28/2024 COMPL ETE BLOOD COUNT NO DIFF RBC 3.77 10_6/ uL 4.36-5 .78 low Not Available [address] [place], [address] 01/28/2024 07:09:24 01/28/20 24 01/28/2024 COMPL ETE BLOOD COUNT NO DIFF HGB 11.3 g/dL 13.5-1 7.5 low Not Available [address] [place], [address] 01/28/2024 07:09:24 01/28/20 24 01/28/2024 COMPL ETE BLOOD COUNT NO DIFF HCT 35.7 % 40.0-5 0.0 low Not Available [address] [place], [address] 01/28/2024 07:09:24 01/28/20 24 01/28/2024 COMPL ETE BLOOD COUNT NO DIFF MCV 95 fL 80-95 normal Not Available [facility] [address] [place], [address] 01/28/2024 07:09:24 01/28/20 24 01/28/2024 COMPL ETE BLOOD COUNT NO DIFF MCH 30.0 pg 27.0-3 3.0 normal Not Available [address] [place], [address] 01/28/2024 07:09:24 01/28/20 24 01/28/2024 COMPL ETE BLOOD COUNT NO DIFF MCHC 31.7 % 32.0-3 6.0 low Not Available [address] [place], [address] 01/28/2024 07:09:24 01/28/20 24 01/28/2024 COMPL ETE BLOOD COUNT NO DIFF RDW 16.4 % 11.8-1 4.1 high Not Available [address] [place], [address] 01/28/2024 07:09:24 01/28/20 24 01/28/2024 COMPL ETE BLOOD COUNT NO DIFF platelet count 148 10_3/ uL 130-40 0 normal Not Available [address] [place], [address] 01/28/2024 07:09:24 01/28/20 24 01/28/2024 COMPL ETE BLOOD COUNT NO DIFF MPV 12.9 fL 8.0-11 .0 high Not Available [address] [place], [address] 01/28/2024 07:09:24 01/28/20 24 01/28/2024 PROTH ROMBI N TIME prothrombin time 11.6 sec 9.1-11 .1 high Not Available [address] [place], [address] 01/28/2024 07:09:27 01/28/20 24 01/28/2024 PROTH ROMBI N TIME INR 1.2 0.9-1. 1 high Recom janet d INR thera peuti c range s for orall y admin ister ed drugs are as follo ws: -Bright dard Inten sity 2.0 to 3.0 -High er Inten sity 3.0 to 4.5 Not Available [address] [place], [address] 01/28/2024 07:09:27 01/28/20 24 01/28/2024 4 HR TROPO LAINEY QT troponin I < 50 NG/L < or =60 Not Available [address] [place], [address] 01/28/2024 07:22:35 01/28/20 24 01/28/2024 COMPR EHENS MABLE METAB OLIC PANEL calcium 8.6 mg/dL 8.5-10 .1 normal Not Available [address] [place], [address] 01/28/2024 07:23:27 01/28/20 24 01/28/2024 COMPR EHENS MABLE METAB OLIC PANEL glucose 175 mg/dL 74-106 high Not Available [facility]user [address] [place], [address] 01/28/2024 07:23:27 01/28/20 24 01/28/2024 COMPR EHENS MABLE METAB OLIC PANEL BUN 66 mg/dL 7-18 high Not Available [facility] [address] [place], [address] 01/28/2024 07:23:27 01/28/20 24 01/28/2024 COMPR EHENS MABLE METAB OLIC PANEL creatinine 3.2 mg/dL 0.70-1 .30 high Not Available [address] [place], [address] 01/28/2024 07:23:27 01/28/20 24 01/28/2024 COMPR EHENS MABLE METAB OLIC PANEL estimated GFR 20.18 mL/min /1.73m 2 The eGFR is calcu lated from a serum creat inine using the CKD-E PI 2020 equat ion. Other varia bles requi red for the equat ion are gende r and age; this equat ion does not inclu de a race coeff icien t. This equat ion has simil ar overa ll perfo rmanc e to previ ous equat ions excep t value s may diffe r, in parti cular , in patie nts with highe r value s of eGFR and young er-ag ed adult s. Not Available [address] [place], [address] 01/28/2024 07:23:27 01/28/20 24 01/28/2024 COMPR EHENS MABLE METAB OLIC PANEL total protein 5.9 g/dL 6.4-8. 2 low Not Available [address] [place], [address] 01/28/2024 07:23:27 01/28/20 24 01/28/2024 COMPR EHENS MABLE METAB OLIC PANEL albumin 3.3 g/dL 3.4-5. 0 low Not Available [address] [place], [address] 01/28/2024 07:23:27 01/28/20 24 01/28/2024 COMPR EHENS MABLE METAB OLIC PANEL bilirubin, total 0.56 mg/dL 0.2-1. 0 normal Not Available [address] [place], [address] 01/28/2024 07:23:27 01/28/20 24 01/28/2024 COMPR EHENS MABLE METAB OLIC PANEL alk phos 83 U/L 46-116 normal Not Available [address] [place], [address] 01/28/2024 07:23:27 01/28/20 24 01/28/2024 COMPR EHENS MABLE METAB OLIC PANEL sodium 144 mmol/ L 136-14 5 normal Not Available [address] [place], [address] 01/28/2024 07:23:27 01/28/20 24 01/28/2024 COMPR EHENS MABLE METAB OLIC PANEL potassium 4.2 mmol/ L 3.5-5. 1 normal Not Available [address] [place], [address] 01/28/2024 07:23:27 01/28/20 24 01/28/2024 COMPR EHENS MABLE METAB OLIC PANEL chloride 109 mmol/ L 98-107 high Not Available [address] [place], [address] 01/28/2024 07:23:27 01/28/20 24 01/28/2024 COMPR EHENS MABLE METAB OLIC PANEL CO2 21.6 mmol/ L 21.0-3 2.0 normal Not Available [address] [place], [address] 01/28/2024 07:23:27 08/02/01/28/2024 COMPR EHENS MABLE METAB OLIC PANEL anion gap 13.4 mmol/ L 3-11 high Not Available [address] [place], [address] 01/28/2024 07:23:27 01/28/20 24 01/28/2024 COMPR EHENS MABLE METAB OLIC PANEL AST 43 U/L 15-37 high Not Available [facility] hauser [address] [place], [address] 01/28/2024 07:23:27 01/28/20 24 01/28/2024 COMPR EHENS MABLE METAB OLIC PANEL ALT 89 U/L 16-63 high Not Available [facility] hauser [address] [place], [address] 01/28/2024 07:23:27 01/28/20 24 01/28/2024 MAGNE SIUM magnesium 2.1 mg/dL 1.8-2. 4 normal Not Available [address] [place], [address] 01/28/2024 07:23:27 01/28/20 24 01/28/2024 BASIC METAB OLIC PANEL calcium 8.6 mg/dL 8.5-10 .1 normal Not Available [address] [place], [address] 01/28/2024 16:45:59 01/28/20 24 01/28/2024 BASIC METAB OLIC PANEL glucose 135 mg/dL 74-106 high Not Available [facility] hauser [address] [place], [address] 01/28/2024 16:45:59 01/28/20 24 01/28/2024 BASIC METAB OLIC PANEL BUN 67 mg/dL 7-18 high Not Available [facility] hauser [address] [place], [address] 01/28/2024 16:45:59 01/28/20 24 01/28/2024 BASIC METAB OLIC PANEL creatinine 3.0 mg/dL 0.70-1 .30 high Not Available [address] [place], [address] 01/28/2024 16:45:59 01/28/20 24 01/28/2024 BASIC METAB OLIC PANEL estimated GFR 21.80 mL/min /1.73m 2 The eGFR is calcu lated from a serum creat inine using the CKD-E PI 2020 equat ion. Other varia bles requi red for the equat ion are gende r and age; this equat ion does not inclu de a race coeff icien t. This equat ion has simil ar overa ll perfo rmanc e to previ ous equat ions excep t value s may diffe r, in parti cular , in patie nts with highe r value s of eGFR and young er-ag ed adult s. Not Available [address] [place], [address] 01/28/2024 16:45:59 01/28/20 24 01/28/2024 BASIC METAB OLIC PANEL sodium 143 mmol/ L 136-14 5 normal Not Available [address] [place], [address] 01/28/2024 16:45:59 01/28/20 24 01/28/2024 BASIC METAB OLIC PANEL potassium 4.1 mmol/ L 3.5-5. 1 normal Not Available [address] [place], [address] 01/28/2024 16:45:59 01/28/20 24 01/28/2024 BASIC METAB OLIC PANEL chloride 107 mmol/ L 98-107 normal Not Available [address] [place], [address] 01/28/2024 16:45:59 01/28/20 24 01/28/2024 BASIC METAB OLIC PANEL CO2 25.7 mmol/ L 21.0-3 2.0 normal Not Available [address] [place], [address] 01/28/2024 16:45:59 01/28/20 24 01/28/2024 BASIC METAB OLIC PANEL anion gap 10.3 mmol/ L 3-11 normal Not Available [address] [place], [address] 01/28/2024 16:45:59 01/28/20 24 01/28/2024 MAGNE SIUM magnesium 2.0 mg/dL 1.8-2. 4 normal Not Available [address] [place], [address] 01/28/2024 16:46:00 01/28/20 24 01/28/2024 TROPO LAINEY I troponin I < 50 NG/L < or =60 Not Available [address] [place], [address] 01/28/2024 16:46:00 01/29/20 24 01/29/2024 COMPL ETE BLOOD COUNT W/DIF F WBC 6.94 10_3/ uL 4.4-10 .8 normal Not Available [address] [place], [address] 01/29/2024 07:32:47 01/29/20 24 01/29/2024 COMPL ETE BLOOD COUNT W/DIF F RBC 4.02 10_6/ uL 4.36-5 .78 low Not Available [address] [place], [address] 01/29/2024 07:32:47 01/29/20 24 01/29/2024 COMPL ETE BLOOD COUNT W/DIF F HGB 12.0 g/dL 13.5-1 7.5 low Not Available [address] [place], [address] 01/29/2024 07:32:47 01/29/20 24 01/29/2024 COMPL ETE BLOOD COUNT W/DIF F HCT 37.3 % 40.0-5 0.0 low Not Available [address] [place], [address] 01/29/2024 07:32:47 01/29/20 24 01/29/2024 COMPL ETE BLOOD COUNT W/DIF F MCV 93 fL 80-95 normal Not Available [facility] hauser [address] [place], [address] 01/29/2024 07:32:47 01/29/20 24 01/29/2024 COMPL ETE BLOOD COUNT W/DIF F MCH 29.9 pg 27.0-3 3.0 normal Not Available [address] [place], [address] 01/29/2024 07:32:47 01/29/20 24 01/29/2024 COMPL ETE BLOOD COUNT W/DIF F MCHC 32.2 % 32.0-3 6.0 normal Not Available [address] [place], [address] 01/29/2024 07:32:47 01/29/20 24 01/29/2024 COMPL ETE BLOOD COUNT W/DIF F RDW 16.0 % 11.8-1 4.1 high Not Available [address] [place], [address] 01/29/2024 07:32:47 01/29/20 24 01/29/2024 COMPL ETE BLOOD COUNT W/DIF F platelet count 127 10_3/ uL 130-40 0 low Not Available [address] [place], [address] 01/29/2024 07:32:47 01/29/20 24 01/29/2024 COMPL ETE BLOOD COUNT W/DIF F MPV 12.3 fL 8.0-11 .0 high Not Available [address] [place], [address] 01/29/2024 07:32:47 01/29/20 24 01/29/2024 COMPL ETE BLOOD COUNT W/DIF F neutrophils % 65.6 % Not Available [address] [place], [address] 01/29/2024 07:32:47 01/29/20 24 01/29/2024 COMPL ETE BLOOD COUNT W/DIF F lymphocytes % 13.7 % Not Available [address] [place], [address] 01/29/2024 07:32:47 01/29/20 24 01/29/2024 COMPL ETE BLOOD COUNT W/DIF F monocytes % 6.5 % Not Available [address] [place], [address] 01/29/2024 07:32:47 01/29/20 24 01/29/2024 COMPL ETE BLOOD COUNT W/DIF F eosinophils % 13.3 % Not Available [address] [place], [address] 01/29/2024 07:32:47 01/29/20 24 01/29/2024 COMPL ETE BLOOD COUNT W/DIF F basophils % 0.6 % Not Available [address] [place], [address] 01/29/2024 07:32:47 01/29/20 24 01/29/2024 COMPL ETE BLOOD COUNT W/DIF F immature grans % 0.3 % Not Available [address] [place], [address] 01/29/2024 07:32:47 01/29/20 24 01/29/2024 COMPL ETE BLOOD COUNT W/DIF F nucleated RBC 0.0 % 0.0-0. 3 normal Not Available [address] [place], [address] 01/29/2024 07:32:47 01/29/20 24 01/29/2024 COMPL ETE BLOOD COUNT W/DIF F absolute neutrophil count 4.56 10_3/ uL 1.2-6. 7 normal Not Available [address] [place], [address] 01/29/2024 07:32:47 01/29/20 24 01/29/2024 COMPL ETE BLOOD COUNT W/DIF F absolute lymphocyte count 0.95 10_3/ uL 1.2-3. 4 low Not Available [address] [place], [address] 01/29/2024 07:32:47 01/29/20 24 01/29/2024 COMPL ETE BLOOD COUNT W/DIF F absolute monocyte count 0.45 10_3/ uL 0.1-0. 8 normal Not Available [address] [place], [address] 01/29/2024 07:32:47 01/29/20 24 01/29/2024 COMPL ETE BLOOD COUNT W/DIF F absolute eosinophil count 0.92 10_3/ uL 0.0-0. 7 high Not Available [address] [place], [address] 01/29/2024 07:32:47 01/29/20 24 01/29/2024 COMPL ETE BLOOD COUNT W/DIF F absolute basophil count 0.04 10_3/ uL 0.0-0. 2 normal Not Available [address] [place], [address] 01/29/2024 07:32:47 01/29/20 24 01/29/2024 COMPR EHENS MABLE METAB OLIC PANEL calcium 8.4 mg/dL 8.5-10 .1 low Not Available [address] [place], [address] 01/29/2024 07:50:56 01/29/20 24 01/29/2024 COMPR EHENS MABLE METAB OLIC PANEL glucose 117 mg/dL 74-106 high Not Available [facility] [address] [place], [address] 01/29/2024 07:50:56 01/29/20 24 01/29/2024 COMPR EHENS MABLE METAB OLIC PANEL BUN 71 mg/dL 7-18 high Not Available [facility] [address] [place], [address] 01/29/2024 07:50:56 01/29/20 24 01/29/2024 COMPR EHENS MABLE METAB OLIC PANEL creatinine 3.1 mg/dL 0.70-1 .30 high Not Available [address] [place], [address] 01/29/2024 07:50:56 01/29/2001/29/2024 COMPR EHENS MABLE METAB OLIC PANEL estimated GFR 20.96 mL/min /1.73m 2 The eGFR is calcu lated from a serum creat inine using the CKD-E PI 2020 equat ion. Other varia bles requi red for the equat ion are gende r and age; this equat ion does not inclu de a race coeff icien t. This equat ion has simil ar overa ll perfo rmanc e to previ ous equat ions excep t value s may diffe r, in parti cular , in patie nts with highe r value s of eGFR and young er-ag ed adult s. Not Available [address] [place], [address] 01/29/2024 07:50:56 01/29/2001/29/2024 COMPR EHENS MABLE METAB OLIC PANEL total protein 5.6 g/dL 6.4-8. 2 low Not Available [address] [place], [address] 01/29/2024 07:50:56 01/29/20 24 01/29/2024 COMPR EHENS MABLE METAB OLIC PANEL albumin 2.9 g/dL 3.4-5. 0 low Not Available [address] [place], [address] 01/29/2024 07:50:56 01/29/20 24 01/29/2024 COMPR EHENS MABLE METAB OLIC PANEL bilirubin, total 0.65 mg/dL 0.2-1. 0 normal Not Available [address] [place], [address] 01/29/2024 07:50:56 01/29/2001/29/2024 COMPR EHENS MABLE METAB OLIC PANEL alk phos 64 U/L 46-116 normal Not Available [address] [place], [address] 01/29/2024 07:50:56 01/29/2001/29/2024 COMPR EHENS MABLE METAB OLIC PANEL sodium 142 mmol/ L 136-14 5 normal Not Available [address] [place], [address] 01/29/2024 07:50:56 01/29/2001/29/2024 COMPR EHENS MABLE METAB OLIC PANEL potassium 3.8 mmol/ L 3.5-5. 1 normal Not Available [address] [place], [address] 01/29/2024 07:50:56 01/29/2001/29/2024 COMPR EHENS MABLE METAB OLIC PANEL chloride 105 mmol/ L 98-107 normal Not Available [address] [place], [address] 01/29/2024 07:50:56 01/29/20 24 01/29/2024 COMPR EHENS MABLE METAB OLIC PANEL CO2 27.2 mmol/ L 21.0-3 2.0 normal Not Available [address] [place], [address] 01/29/2024 07:50:56 01/29/20 24 01/29/2024 COMPR EHENS MABLE METAB OLIC PANEL anion gap 9.8 mmol/ L 3-11 normal Not Available [address] [place], [address] 01/29/2024 07:50:56 01/29/20 24 01/29/2024 COMPR EHENS MABLE METAB OLIC PANEL AST 23 U/L 15-37 normal Not Available [address] [place], [address] 01/29/2024 07:50:56 01/29/20 24 01/29/2024 COMPR EHENS MABEL METAB OLIC PANEL ALT 72 U/L 16-63 high Not Available [address] [place], [address] 01/29/2024 07:50:56 01/29/20 24 01/29/2024 MAGNE SIUM magnesium 1.9 mg/dL 1.8-2. 4 normal Not Available [address] [place], [address] 01/29/2024 07:50:56 01/29/20 24 01/29/2024 POTAS SIUM potassium 4.3 mmol/ L 3.5-5. 1 normal Not Available [address] [place], [address] 01/29/2024 22:37:48 01/29/20 24 01/29/2024 MAGNE SIUM magnesium 1.9 mg/dL 1.8-2. 4 normal Not Available [address] [place], [address] 01/29/2024 22:37:48 01/29/20 24 01/30/2024 BLOOD CULTU RE ( AGE => 9 YRS) blood culture ( age => 9 yrs) Blood Cultu re ( Age => 9 Yrs) NO GROWT H 24 HOURS Not Available [address] [place], [address] 01/30/2024 15:36:44 01/29/20 24 01/30/2024 BLOOD CULTU RE ( AGE => 9 YRS) blood culture ( age => 9 yrs) Blood Cultu re ( Age => 9 Yrs) NO GROWT H 24 HOURS Not Available [address] [place], [address] 01/30/2024 15:36:46 01/29/20 24 01/31/2024 BLOOD CULTU RE ( AGE => 9 YRS) blood culture ( age => 9 yrs) Blood Cultu re ( Age => 9 Yrs) NO GROWT H 48 HOURS Not Available [address] [place], [address] 01/31/2024 15:37:57 01/29/20 24 01/31/2024 BLOOD CULTU RE ( AGE => 9 YRS) blood culture ( age => 9 yrs) Blood Cultu re ( Age => 9 Yrs) NO GROWT H 48 HOURS Not Available [address] [place], [address] 01/31/2024 15:37:58 01/29/20 24 02/01/2024 BLOOD CULTU RE ( AGE => 9 YRS) blood culture ( age => 9 yrs) Blood Cultu re ( Age => 9 Yrs) NO GROWT H 72 HOURS Not Available [address] [place], [address] 02/01/2024 15:39:47 01/29/20 24 02/01/2024 BLOOD CULTU RE ( AGE => 9 YRS) blood culture ( age => 9 yrs) Blood Cultu re ( Age => 9 Yrs) NO GROWT H 72 HOURS Not Available [address] [place], [address] 02/01/2024 15:39:48 01/29/20 24 02/02/2024 BLOOD CULTU RE ( AGE => 9 YRS) blood culture ( age => 9 yrs) Blood Cultu re ( Age => 9 Yrs) NO GROWT H 96 HOURS Not Available [address] [place], [address] 02/02/2024 15:37:40 01/29/20 24 02/02/2024 BLOOD CULTU RE ( AGE => 9 YRS) blood culture ( age => 9 yrs) Blood Cultu re ( Age => 9 Yrs) NO GROWT H 96 HOURS Not Available [address] [place], [address] 02/02/2024 15:37:41 01/29/20 24 02/03/2024 BLOOD CULTU RE ( AGE => 9 YRS) blood culture ( age => 9 yrs) Blood Cultu re ( Age => 9 Yrs) NO GROWT H 120 HOURS Not Available [address] [place], [address] 02/03/2024 15:36:05 01/29/20 24 02/03/2024 BLOOD CULTU RE ( AGE => 9 YRS) blood culture ( age => 9 yrs) Blood Cultu re ( Age => 9 Yrs) NO GROWT H 120 HOURS Not Available [address] [place], [address] 02/03/2024 15:38:06 01/30/20 24 01/30/2024 COMPL ETE BLOOD COUNT W/DIF F WBC 9.39 10_3/ uL 4.4-10 .8 normal Not Available [address] [place], [address] 01/30/2024 06:09:06 01/30/20 24 01/30/2024 COMPL ETE BLOOD COUNT W/DIF F RBC 4.45 10_6/ uL 4.36-5 .78 normal Not Available [address] [place], [address] 01/30/2024 06:09:06 01/30/20 24 01/30/2024 COMPL ETE BLOOD COUNT W/DIF F HGB 13.4 g/dL 13.5-1 7.5 low Not Available [address] [place], [id number] 01/30/2024 06:09:06 01/30/20 24 01/30/2024 COMPL ETE BLOOD COUNT W/DIF F HCT 39.8 % 40.0-5 0.0 low Not Available [address] [place], [id number] 01/30/2024 06:09:06 01/30/20 24 01/30/2024 COMPL ETE BLOOD COUNT W/DIF F MCV 89 fL 80-95 Not Available Christiano hauser [address] [place], [id number] 01/30/2024 06:09:06 01/30/20 24 01/30/2024 COMPL ETE BLOOD COUNT W/DIF F MCH 30.1 pg 27.0-3 3.0 normal Not Available [address] [place], [id number] 01/30/2024 06:09:06 01/30/20 24 01/30/2024 COMPL ETE BLOOD COUNT W/DIF F MCHC 33.7 % 32.0-3 6.0 normal Not Available [address] [place], [id number] 01/30/2024 06:09:06 01/30/20 24 01/30/2024 COMPL ETE BLOOD COUNT W/DIF F RDW 15.9 % 11.8-1 4.1 high Not Available [address] [place], [id number] 01/30/2024 06:09:06 01/30/20 24 01/30/2024 COMPL ETE BLOOD COUNT W/DIF F platelet count 144 10_3/ uL 130-40 0 normal Not Available [address] [place], [id number] 01/30/2024 06:09:06 01/30/20 24 01/30/2024 COMPL ETE BLOOD COUNT W/DIF F MPV 12.5 fL 8.0-11 .0 high Not Available [address] [place], [id number] 01/30/2024 06:09:06 01/30/20 24 01/30/2024 COMPL ETE BLOOD COUNT W/DIF F neutrophils % 82.5 % Not Available Ifrah purcell [address] [place], [id number] 01/30/2024 06:09:06 01/30/20 24 01/30/2024 COMPL ETE BLOOD COUNT W/DIF F lymphocytes % 7.1 % Not Available [address] [place], [id number] 01/30/2024 06:09:06 01/30/20 24 01/30/2024 COMPL ETE BLOOD COUNT W/DIF F monocytes % 6.7 % Not Available [address] [place], [address] 01/30/2024 06:09:06 01/30/20 24 01/30/2024 COMPL ETE BLOOD COUNT W/DIF F eosinophils % 3.3 % Not Available [address] [place], [id number] 01/30/2024 06:09:06 01/30/20 24 01/30/2024 COMPL ETE BLOOD COUNT W/DIF F basophils % 0.1 % Not Available [address] [place], [address] 01/30/2024 06:09:06 01/30/20 24 01/30/2024 COMPL ETE BLOOD COUNT W/DIF F immature grans % 0.3 % Not Available [address] [place], [id number] 01/30/2024 06:09:06 01/30/20 24 01/30/2024 COMPL ETE BLOOD COUNT W/DIF F nucleated RBC 0.0 % 0.0-0. 3 normal Not Available [address] [place], [id number] 01/30/2024 06:09:06 01/30/20 24 01/30/2024 COMPL ETE BLOOD COUNT W/DIF F absolute neutrophil count 7.74 10_3/ uL 1.2-6. 7 high Not Available [address] [place], [address] 01/30/2024 06:09:06 01/30/20 24 01/30/2024 COMPL ETE BLOOD COUNT W/DIF F absolute lymphocyte count 0.67 10_3/ uL 1.2-3. 4 low Not Available [address] [place], [address] 01/30/2024 06:09:06 01/30/20 24 01/30/2024 COMPL ETE BLOOD COUNT W/DIF F absolute monocyte count 0.63 10_3/ uL 0.1-0. 8 normal Not Available [address] [place], [address] 01/30/2024 06:09:06 01/30/20 24 01/30/2024 COMPL ETE BLOOD COUNT W/DIF F absolute eosinophil count 0.31 10_3/ uL 0.0-0. 7 normal Not Available [address] [place], [address] 01/30/2024 06:09:06 01/30/20 24 01/30/2024 COMPL ETE BLOOD COUNT W/DIF F absolute basophil count 0.01 10_3/ uL 0.0-0. 2 normal Not Available [address] [place], [address] 01/30/2024 06:09:06 01/30/20 24 01/30/2024 BASIC METAB OLIC PANEL calcium 9.1 mg/dL 8.5-10 .1 normal Not Available [address] [place], [address] 01/30/2024 09:07:20 01/30/20 24 01/30/2024 BASIC METAB OLIC PANEL glucose 148 mg/dL 74-106 high Not Available [employer] [employer] [address] [place], [address] 01/30/2024 09:07:20 01/30/20 24 01/30/2024 BASIC METAB OLIC PANEL BUN 79 mg/dL 7-18 high Not Available [employer] [address] [place], [address] 01/30/2024 09:07:20 01/30/20 24 01/30/2024 BASIC METAB OLIC PANEL creatinine 3.3 mg/dL 0.70-1 .30 high Not Available [address] [place], [address] 01/30/2024 09:07:20 01/30/20 24 01/30/2024 BASIC METAB OLIC PANEL estimated GFR 19.44 mL/min /1.73m 2 The eGFR is calcu lated from a serum creat inine using the CKD-E PI 2020 equat ion. Other varia bles requi red for the equat ion are gende r and age; this equat ion does not inclu de a race coeff icien t. This equat ion has simil ar overa ll perfo rmanc e to previ ous equat ions excep t value s may diffe r, in parti cular , in patie nts with highe r value s of eGFR and young er-ag ed adult s. Not Available [address] [place], [address] 01/30/2024 09:07:20 01/30/20 24 01/30/2024 BASIC METAB OLIC PANEL sodium 139 mmol/ L 136-14 5 normal Not Available [address] [place], [address] 01/30/2024 09:07:20 01/30/20 24 01/30/2024 BASIC METAB OLIC PANEL potassium 4.1 mmol/ L 3.5-5. 1 normal Not Available [address] [place], [address] 01/30/2024 09:07:20 01/30/20 24 01/30/2024 BASIC METAB OLIC PANEL chloride 101 mmol/ L 98-107 normal Not Available [address] [place], [address] 01/30/2024 09:07:20 01/30/20 24 01/30/2024 BASIC METAB OLIC PANEL CO2 28.7 mmol/ L 21.0-3 2.0 normal Not Available [address] [place], [address] 01/30/2024 09:07:20 01/30/20 24 01/30/2024 BASIC METAB OLIC PANEL anion gap 9.3 mmol/ L 3-11 normal Not Available [address] [place], [address] 01/30/2024 09:07:20 01/31/20 24 01/31/2024 COMPL ETE BLOOD COUNT NO DIFF WBC 9.24 10_3/ uL 4.4-10 .8 normal Not Available [address] [place], [address] 01/31/2024 07:09:32 01/31/20 24 01/31/2024 COMPL ETE BLOOD COUNT NO DIFF RBC 4.38 10_6/ uL 4.36-5 .78 normal Not Available [address] [place], [address] 01/31/2024 07:09:32 01/31/20 24 01/31/2024 COMPL ETE BLOOD COUNT NO DIFF HGB 13.2 g/dL 13.5-1 7.5 low Not Available [address] [place], [address] 01/31/2024 07:09:32 01/31/20 24 01/31/2024 COMPL ETE BLOOD COUNT NO DIFF HCT 38.5 % 40.0-5 0.0 low Not Available [address] [place], [address] 01/31/2024 07:09:32 01/31/20 24 01/31/2024 COMPL ETE BLOOD COUNT NO DIFF MCV 88 fL 80-95 normal Not Available [address] [place], [address] 01/31/2024 07:09:32 01/31/20 24 01/31/2024 COMPL ETE BLOOD COUNT NO DIFF MCH 30.1 pg 27.0-3 3.0 normal Not Available [address] [place], [address] 01/31/2024 07:09:32 01/31/20 24 01/31/2024 COMPL ETE BLOOD COUNT NO DIFF MCHC 34.3 % 32.0-3 6.0 normal Not Available [address] [place], [address] 01/31/2024 07:09:32 01/31/20 24 01/31/2024 COMPL ETE BLOOD COUNT NO DIFF RDW 15.7 % 11.8-1 4.1 high Not Available [address] [place], [address] 01/31/2024 07:09:32 01/31/20 24 01/31/2024 COMPL ETE BLOOD COUNT NO DIFF platelet count 152 10_3/ uL 130-40 0 normal Not Available [address] [place], [address] 01/31/2024 07:09:32 01/31/20 24 01/31/2024 COMPL ETE BLOOD COUNT NO DIFF MPV 12.8 fL 8.0-11 .0 high Not Available [address] [place], [address] 01/31/2024 07:09:32 01/31/20 24 01/31/2024 BASIC METAB OLIC PANEL calcium 8.9 mg/dL 8.5-10 .1 normal Not Available [address] [place], [address] 01/31/2024 07:30:34 01/31/20 24 01/31/2024 BASIC METAB OLIC PANEL glucose 123 mg/dL 74-106 high Not Available [facility] [address] [place], [address] 01/31/2024 07:30:34 01/31/20 24 01/31/2024 BASIC METAB OLIC PANEL BUN 92 mg/dL 7-18 panic high Criti varsha value repor moriah to and readb ack from EDENILSON MCCARTHY RN at 0727 01/30 by LAB.G FLOR Not Available [address] [place], [address] 01/31/2024 07:30:34 01/31/20 24 01/31/2024 BASIC METAB OLIC PANEL creatinine 3.5 mg/dL 0.70-1 .30 high Not Available [address] [place], [address] 01/31/2024 07:30:34 01/31/20 24 01/31/2024 BASIC METAB OLIC PANEL estimated GFR 18.12 mL/min /1.73m 2 The eGFR is calcu lated from a serum creat inine using the CKD-E PI 2020 equat ion. Other varia bles requi red for the equat ion are gende r and age; this equat ion does not inclu de a race coeff icien t. This equat ion has simil ar overa ll perfo rmanc e to previ ous equat ions excep t value s may diffe r, in parti cular , in patie nts with highe r value s of eGFR and young er-ag ed adult s. Not Available [address] [place], [address] 01/31/2024 07:30:34 01/31/20 24 01/31/2024 BASIC METAB OLIC PANEL sodium 139 mmol/ L 136-14 5 normal Not Available [address] [place], [address] 01/31/2024 07:30:34 01/31/20 24 01/31/2024 BASIC METAB OLIC PANEL potassium 4.1 mmol/ L 3.5-5. 1 normal Not Available [address] [place], [address] 01/31/2024 07:30:34 01/31/20 24 01/31/2024 BASIC METAB OLIC PANEL chloride 99 mmol/ L 98-107 normal Not Available [address] [place], [address] 01/31/2024 07:30:34 01/31/20 24 01/31/2024 BASIC METAB OLIC PANEL CO2 29.2 mmol/ L 21.0-3 2.0 normal Not Available [address] [place], [address] 01/31/2024 07:30:34 01/31/20 24 01/31/2024 BASIC METAB OLIC PANEL anion gap 10.8 mmol/ L 3-11 normal Not Available [address] [place], [address] 01/31/2024 07:30:34 02/01/20 24 02/01/2024 COMPL ETE BLOOD COUNT NO DIFF WBC 10.05 10_3/ uL 4.4-10 .8 normal Not Available [address] [place], [address] 02/01/2024 07:31:56 02/01/20 24 02/01/2024 COMPL ETE BLOOD COUNT NO DIFF RBC 4.44 10_6/ uL 4.36-5 .78 normal Not Available [address] [place], [address] 02/01/2024 07:31:56 02/01/2002/01/2024 COMPL ETE BLOOD COUNT NO DIFF HGB 13.2 g/dL 13.5-1 7.5 low Not Available [address] [place], [address] 02/01/2024 07:31:56 02/01/20 24 02/01/2024 COMPL ETE BLOOD COUNT NO DIFF HCT 40.3 % 40.0-5 0.0 normal Not Available [address] [place], [address] 02/01/2024 07:31:56 02/01/2002/01/2024 COMPL ETE BLOOD COUNT NO DIFF MCV 91 fL 80-95 normal Not Available [address] [place], [address] 02/01/2024 07:31:56 02/01/20 24 02/01/2024 COMPL ETE BLOOD COUNT NO DIFF MCH 29.7 pg 27.0-3 3.0 normal Not Available [address] [place], [address] 02/01/2024 07:31:56 02/01/2002/01/2024 COMPL ETE BLOOD COUNT NO DIFF MCHC 32.8 % 32.0-3 6.0 normal Not Available [address] [place], [address] 02/01/2024 07:31:56 02/01/2002/01/2024 COMPL ETE BLOOD COUNT NO DIFF RDW 15.6 % 11.8-1 4.1 high Not Available [address] [place], [address] 02/01/2024 07:31:56 02/01/2002/01/2024 COMPL ETE BLOOD COUNT NO DIFF platelet count 148 10_3/ uL 130-40 0 normal Not Available [address] [place], [address] 02/01/2024 07:31:56 02/01/2002/01/2024 COMPL ETE BLOOD COUNT NO DIFF MPV 12.6 fL 8.0-11 .0 high Not Available [address] [place], [address] 02/01/2024 07:31:56 02/01/20 24 02/01/2024 BASIC METAB OLIC PANEL calcium 8.9 mg/dL 8.5-10 .1 normal Not Available [address] [place], [address] 02/01/2024 07:44:56 02/01/2002/01/2024 BASIC METAB OLIC PANEL glucose 134 mg/dL 74-106 high Not Available [facility] [address] [place], [address] 02/01/2024 07:44:56 02/01/20 24 02/01/2024 BASIC METAB OLIC PANEL BUN 101 mg/dL 7-18 panic high Criti varsha value repor moriah to and readb ack from [facility],R N at 0741 01/31 by LAB.G ERJ Not Available [address] [place], [address] 02/01/2024 07:44:56 02/01/2002/01/2024 BASIC METAB OLIC PANEL creatinine 3.6 mg/dL 0.70-1 .30 panic high Criti varsha value repor moriah to and readb ack from [facility],R N at 0741 01/31 by LAB.G ERJ Not Available [address] [place], [address] 02/01/2024 07:44:56 02/01/20 24 02/01/2024 BASIC METAB OLIC PANEL estimated GFR 17.52 mL/min /1.73m 2 The eGFR is calcu lated from a serum creat inine using the CKD-E PI 2020 equat ion. Other varia bles requi red for the equat ion are gende r and age; this equat ion does not inclu de a race coeff icien t. This equat ion has simil ar overa ll perfo rmanc e to previ ous equat ions excep t value s may diffe r, in parti cular , in patie nts with highe r value s of eGFR and young er-ag ed adult s. Not Available [address] [place], [address] 02/01/2024 07:44:56 02/01/20 24 02/01/2024 BASIC METAB OLIC PANEL sodium 140 mmol/ L 136-14 5 normal Not Available [address] [place], [address] 02/01/2024 07:44:56 02/01/20 24 02/01/2024 BASIC METAB OLIC PANEL potassium 4.3 mmol/ L 3.5-5. 1 normal Not Available [address] [place], [address] 02/01/2024 07:44:56 02/01/20 24 02/01/2024 BASIC METAB OLIC PANEL chloride 101 mmol/ L 98-107 normal Not Available [address] [place], [address] 02/01/2024 07:44:56 02/01/20 24 02/01/2024 BASIC METAB OLIC PANEL CO2 30.7 mmol/ L 21.0-3 2.0 normal Not Available [address] [place], [address] 02/01/2024 07:44:56 02/01/20 24 02/01/2024 BASIC METAB OLIC PANEL anion gap 8.3 mmol/ L 3-11 normal Not Available [address] [place], [address] 02/01/2024 07:44:56 02/02/20 24 02/02/2024 COMPL ETE BLOOD COUNT NO DIFF WBC 9.65 10_3/ uL 4.4-10 .8 normal Not Available [address] [place], [address] 02/02/2024 07:08:39 02/02/20 24 02/02/2024 COMPL ETE BLOOD COUNT NO DIFF RBC 4.43 10_6/ uL 4.36-5 .78 normal Not Available [address] [place], [address] 02/02/2024 07:08:39 02/02/20 24 02/02/2024 COMPL ETE BLOOD COUNT NO DIFF HGB 13.2 g/dL 13.5-1 7.5 low Not Available [address] [place], [address] 02/02/2024 07:08:39 02/02/20 24 02/02/2024 COMPL ETE BLOOD COUNT NO DIFF HCT 40.3 % 40.0-5 0.0 normal Not Available [address] [place], [address] 02/02/2024 07:08:39 02/02/20 24 02/02/2024 COMPL ETE BLOOD COUNT NO DIFF MCV 91 fL 80-95 normal Not Available [address] [place], [address] 02/02/2024 07:08:39 02/02/20 24 02/02/2024 COMPL ETE BLOOD COUNT NO DIFF MCH 29.8 pg 27.0-3 3.0 normal Not Available [address] [place], [address] 02/02/2024 07:08:39 02/02/20 24 02/02/2024 COMPL ETE BLOOD COUNT NO DIFF MCHC 32.8 % 32.0-3 6.0 normal Not Available [address] [place], [address] 02/02/2024 07:08:39 02/02/20 24 02/02/2024 COMPL ETE BLOOD COUNT NO DIFF RDW 15.3 % 11.8-1 4.1 high Not Available [address] [place], [address] 02/02/2024 07:08:39 02/02/20 24 02/02/2024 COMPL ETE BLOOD COUNT NO DIFF platelet count 155 10_3/ uL 130-40 0 normal Not Available [address] [place], [address] 02/02/2024 07:08:39 02/02/20 24 02/02/2024 COMPL ETE BLOOD COUNT NO DIFF MPV 13.0 fL 8.0-11 .0 high Not Available [address] [place], [address] 02/02/2024 07:08:39 02/02/20 24 02/02/2024 BASIC METAB OLIC PANEL calcium 8.9 mg/dL 8.5-10 .1 normal Not Available [address] [place], [address] 02/02/2024 08:32:45 02/02/20 24 02/02/2024 BASIC METAB OLIC PANEL glucose 128 mg/dL 74-106 high Not Available [facility] [address] [place], [address] 02/02/2024 08:32:45 02/02/20 24 02/02/2024 BASIC METAB OLIC PANEL BUN 101 mg/dL 7-18 panic high Criti varsha value repor moriah to and readb ack from GUILLE WOODALL RN at 0828 02/01 by LAB.P ELN Not Available [address] [place], [address] 02/02/2024 08:32:45 02/02/20 24 02/02/2024 BASIC METAB OLIC PANEL creatinine 3.8 mg/dL 0.70-1 .30 panic high Criti varsha value repor moriah to and readb ack from GUILLE WOODALL RN at 0830 02/01 by LAB.P ELN Not Available [address] [place], [address] 02/02/2024 08:32:45 02/02/20 24 02/02/2024 BASIC METAB OLIC PANEL estimated GFR 16.42 mL/min /1.73m 2 The eGFR is calcu lated from a serum creat inine using the CKD-E PI 2020 equat ion. Other varia bles requi red for the equat ion are gende r and age; this equat ion does not inclu de a race coeff icien t. This equat ion has simil ar overa ll perfo rmanc e to previ ous equat ions excep t value s may diffe r, in parti cular , in patie nts with highe r value s of eGFR and young er-ag ed adult s. Not Available [address] [place], [address] 02/02/2024 08:32:45 02/02/2002/02/2024 BASIC METAB OLIC PANEL sodium 140 mmol/ L 136-14 5 normal Not Available [address] [place], [address] 02/02/2024 08:32:45 02/02/20 24 02/02/2024 BASIC METAB OLIC PANEL potassium 4.4 mmol/ L 3.5-5. 1 normal Not Available [address] [place], [address] 02/02/2024 08:32:45 02/02/20 24 02/02/2024 BASIC METAB OLIC PANEL chloride 101 mmol/ L 98-107 normal Not Available [address] [place], [address] 02/02/2024 08:32:45 02/02/20 24 02/02/2024 BASIC METAB OLIC PANEL CO2 29.3 mmol/ L 21.0-3 2.0 normal Not Available [address] [place], [address] 02/02/2024 08:32:45 02/02/2002/02/2024 BASIC METAB OLIC PANEL anion gap 9.7 mmol/ L 3-11 normal Not Available [address] [place], [address] 02/02/2024 08:32:45 02/04/2002/04/2024 BASIC METAB OLIC PANEL calcium 8.5 mg/dL 8.5-10 .1 normal Not Available [address] [place], [address] 02/04/2024 13:17:26 02/04/20 24 02/04/2024 BASIC METAB OLIC PANEL glucose 271 mg/dL 74-106 high Not Available [facility] [address] [place], [address] 02/04/2024 13:17:26 02/04/20 24 02/04/2024 BASIC METAB OLIC PANEL BUN 102 mg/dL 7-18 panic high Criti varsha value repor moriah to and readb ack from [facility] at 1315 02/03 by ELSI.Devin corcoran ied by luz park siria sis Not Available [address] [place], [address] 02/04/2024 13:17:26 02/04/20 24 02/04/2024 BASIC METAB OLIC PANEL creatinine 3.5 mg/dL 0.70-1 .30 high Not Available [address] [place], [address] 02/04/2024 13:17:26 02/04/20 24 02/04/2024 BASIC METAB OLIC PANEL estimated GFR 18.12 mL/min /1.73m 2 The eGFR is calcu lated from a serum creat inine using the CKD-E PI 2020 equat ion. Other varia bles requi red for the equat ion are gende r and age; this equat ion does not inclu de a race coeff icien t. This equat ion has simil ar overa ll perfo rmanc e to previ ous equat ions excep t value s may diffe r, in parti cular , in patie nts with highe r value s of eGFR and young er-ag ed adult s. Not Available [address] [place], [address] 02/04/2024 13:17:26 02/04/20 24 02/04/2024 BASIC METAB OLIC PANEL sodium 140 mmol/ L 136-14 5 normal Not Available [address] [place], [address] 02/04/2024 13:17:26 02/04/20 24 02/04/2024 BASIC METAB OLIC PANEL potassium 4.4 mmol/ L 3.5-5. 1 normal Not Available [address] [place], [address] 02/04/2024 13:17:26 02/04/20 24 02/04/2024 BASIC METAB OLIC PANEL chloride 102 mmol/ L 98-107 normal Not Available [address] [place], [address] 02/04/2024 13:17:26 02/04/20 24 02/04/2024 BASIC METAB OLIC PANEL CO2 25.8 mmol/ L 21.0-3 2.0 normal Not Available [facility] [address] [place], [address] 02/04/2024 13:17:26 02/04/20 24 02/04/2024 BASIC METAB OLIC PANEL anion gap 12.2 mmol/ L 3-11 high Not Available [address] [place], [address] 02/04/2024 13:17:26 01/27/20 24 01/27/2024 x-ray imagi ng repor t Angel Luis t Name: Shay Adam Unit #: [id number] Loc: ER Orderi ng Provid er: Christo Conner M.D. Accoun t #: [id number] Status : REG ER Primar y Care Provid er: Ranjit on,[facility] Date of Exam: Sex: M Admiss ion Date: : 1955 Age: 68 Exam(s ) XR PORTAB LE CHEST AP EXAM: XR PORTAB LE CHEST AP CLINIC AL HISTOR Y: sob TECHNI QUE: 2D digita l imagin g was perfor med of the chest. One image was obtain ed. An AP view was obtain ed. COMPAR MIHAELA: CR XR PORTAB LE CHEST AP from 2022 FINDIN GS: MEDIAS TINUM: Normal . HEART: Normal . PULMON LOTTIE VASCUL ATURE: Normal . LUNGS: Clear. PLEURA L SPACE: No pleura l effusi on or pneumo thorax . BONE:W ithin normal limits for the patien t's age. There is inferi or sublux ation of the right humeru s relati ve to the glenoi d. OTHER FINDIN GS:Nor mal. IMPRES ENRICO: 1. No acute pulmon lottie findin gs. 2. Inferi or sublux ation of the right humeru s relati ve to the glenoi d. Please correl ate with physic al exam. DATA REPOSI TORY: RADIAT ION DOSE DELIVE RED: Ordere d By: Christo Conner M.D. CC: ------ ------ ------ ------ ------ ------ ------ ------ ------ ------ ------ ------ - Dictat ed By: Edwin Keyes M.D. 1853 Transc ribed By: Edwin Keyes 1853 This is privil eged, confid ential inform ation intend ed only for the provid er named. Any use or distri bution by any person other than this provid er is strict ly prohib ited. If you receiv e this report in error, please notify us immedi shabnam at [phone] and return the origin al report to us at the addres s above. Thank- you. kwesi [facility] [address], [place], [address] 01/28/2024 07:30:23 01/28/20 24 01/28/2024 x-ray imagi ng repor t Patien t Name: Shay Adam Unit #: [id number] Loc: MS Lisa anthony Provid er: Devin Barreto M.D. Accoun t #: [id number] Status : ADM IN Primar y Care Provid er: Ranjit on,Natalee perkins Date of Exam: Sex: M Admiss ion Date: : 1955 Age: 68 Exam(s ) XR SHOULD ER RT COMPLE TE 2+V EXAM: XR SHOULD ER RT COMPLE TE 2+V CLINIC AL HISTOR Y: possib le sublux ation. TECHNI QUE: 2D digita l imagin g was perfor med. Five views. COMPAR MIHAELA: CR XR PORTAB LE CHEST AP from 2023 FINDIN GS: BONES: No acute fractu re is presen t. No bony destru ctive lesion is seen. JOINTS : No disloc ation presen t. Eviden ce of sublux ation. The findin gs on recent chest x-ray is second lottie to positi oning. Mild degene rative change s of the AC joint. Mild spurri ng at the unders urface of the acromi on. Glenoh umeral joint space is mainta ined. SOFT TISSUE : Normal . IMPRES ENRICO: Mild degene rative change s. No eviden ce of sublux ation. DATA REPOSI TORY: RADIAT ION DOSE DELIVE RED: Ordere d By: Devin Barreto M.D. CC: ------ ------ ------ ------ ------ ------ ------ ------ ------ ------ ------ ------ - Dictat ed By: Anjelica Salvador 1349 1349 Transc ribed By: Kevin Cleaning 1349 This is privil eged, confid ential inform ation intend ed only for the provid er named. Any use or distri bution by any person other than this provid er is strict ly prohib ited. If you receiv e this report in error, please notify us immedi vikyly at and return the origin al report to us at the addres s above. Thank- you. kwesi [facility] [address] , [facility] [place], [address] 01/28/2024 14:34:24 01/28/20 24 01/28/2024 valentina christensen am No observ ation record ed. [email or web address] Not Available 2023 16:48:19 Result Notes None recorded. Problems Name Problem SNOMED Code Status Onset Date Resolution Date Notes Provider Name and Address Organization Details Recorded Time Type 2 diabetes mellitus without complica tion 626831569 Active 2018 Signifca nt improvem ent with behavior al changes Problem Code: E11.9; Problem Code Type: ICD-10; CESILIA MONZON MD [address], [place], [address] , [facility]. 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 No change made today. Problem Code: E78.5; Problem Code Type: ICD-10; Not Available [facility] 3 04:55:33 Schizoph terrence 96588273 Active 201809/11/19 22 - Comments only - [place] Arceo RPA - Continue s to follow-u p with Dr. Rowland at [facility] . Problem Code: F20.9; Problem Code Type: ICD-10; MD Brett [address], [facility] [address] , [facility] 4 10:26:49 Recurren t major depressi on 96169767 Active 2018 Problem Code: F33.9; Problem Code Type: ICD-10; Not Available [facility] 3 04:55:34 Erectile dysfunct ion 684025355 Active 2018 Problem Code: N52.9; Problem Code Type: ICD-10; Not Available [facility] 3 04:55:34 [facility] 67985164 Active 2018 Problem Code: I10; Problem Code Type: ICD-10; MD Brett [address], [facility] [address] , [facility] 4 10:26:53 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 49781877492 9100 Active 201801/30/20 23 - Comments only - [place] Arceo RPA - [facility] thought to be secondar y to obstruct mable uropathy Problem Code: I50.42; Problem Code Type: ICD-10; CESILIA MONZON MD [address], [place], [address] , [facility] 4 10:26:36 Panic disorder 007085455 Active 2018 Problem Code: F41.0; Problem Code Type: ICD-10; Not Available [facility] 3 04:55:35 Counseli ng Completed 201803/25/2019 Problem Code: Z71.89; Problem Code Type: ICD-10; Not Available [facility] 3 04:55:35 Adult health examinat ion Active 2019 Problem Code: Z00.00; Problem Code Type: ICD-10; CESILIA MONZON MD [address], [place], [address] , [facility] 4 10:26:39 Viral screenin g Completed 201909/16/2019 Problem Code: Z11.59; Problem Code Type: ICD-10; Not Available [facility] 3 04:55:35 Onychomy cosis due to dermatop hyte [id number] Active 202104/22/20 22 - Comments only - [place] Arceo RPA - His toenails were clipped today. Problem Code: B35.1; Problem Code Type: ICD-10; Not Available [facility] 3 04:55:35 Acute kidney injury [id number] Active 202201/30/20 23 - Comments only - [place] Arceo RPA - 01/2023 hospital ization. Cr 5.71. Thought to be secondar y to obstruct mable uropathy superimp osed on cardiore nal physiolo gy. Problem Code: N17.9; Problem Code Type: ICD-10; Not Available [facility] 3 04:55:36 Acne vulgaris [id number] Completed 201910/19/2019 Problem Code: L70.0; Problem Code Type: ICD-10; Not Available [facility] 3 04:55:36 Major depressi on, single episode [id number] Completed 201803/17/2019 Problem Code: F32.9; Problem Code Type: ICD-10; Not Available [facility] 3 04:55:36 Neuropat hy due to type 2 diabetes mellitus [id number] Completed 201803/17/2019 Problem Code: E11.40; Problem Code Type: ICD-10; Not Available [facility] 3 04:55:36 Diabetes mellitus 72743226 Completed 201803/17/2019 Problem Code: E13.9; Problem Code Type: ICD-10; Not Available [facility] 3 04:55:36 Dyspnea 165772774 Completed 202201/29/2023 Problem Code: R06.02; Problem Code Type: ICD-10; Not Available [facility] 3 04:55:36 Severe obesity 44224215699 104 Completed 201803/24/2023 Problem Code: E66.01; Problem Code Type: ICD-10; Not Available [facility] 3 04:55:37 Pneumoni a 723408796 Completed 201909/01/2019 Problem Code: J18.9; Problem Code Type: ICD-10; Not Available [facility] 3 04:55:37 Heart failure 29936745 Completed 201803/17/2019 Problem Code: I50.9; Problem Code Type: ICD-10; Not Available [facility] 3 04:55:37 Onychomy cosis due to dermatop hyte 633639395 Completed 201803/17/2019 Problem Code: B35.1; Problem Code Type: ICD-10; Not Available [facility] 3 04:55:37 Insomnia 883908847 Completed 201803/17/2019 Problem Code: G47.00; Problem Code Type: ICD-10; Not Available [facility] 3 04:55:37 Orthopne a 94501796 Completed 201803/17/2019 Problem Code: R06.01; Problem Code Type: ICD-10; Not Available [facility] 3 04:55:37 Nonulcer dyspepsi a 9918264 Completed 201803/17/2019 Problem Code: K30; Problem Code Type: ICD-10; Not Available [facility] 3 04:55:38 Chest pain 90880227 Completed 201910/19/2019 Problem Code: R07.89; Problem Code Type: ICD-10; Not Available [facility] 3 04:55:38 Dyspnea 827574173 Completed 201910/19/2019 Problem Code: R06.09; Problem Code Type: ICD-10; Not Available [facility] 3 04:55:38 Mixed hyperlip idemia 751172697 Completed 201803/17/2019 Problem Code: E78.2; Problem Code Type: ICD-10; Not Available [facility] 3 04:55:38 Diarrhea 02198240 Completed 201910/19/2019 Problem Code: R19.7; Problem Code Type: ICD-10; Not Available [facility] 3 04:55:38 HIV screenin g Completed 201910/19/2019 Problem Code: Z11.4; Problem Code Type: ICD-10; Not Available [facility] 3 04:55:38 Localize d eruption of skin 963822895 Completed 201803/17/2019 Problem Code: R21; Problem Code Type: ICD-10; Not Available [facility] 3 04:55:39 Urinary tract infectio us disease 84513836 Completed 202203/25/2023 Problem Code: N39.0; Problem Code Type: ICD-10; Not Available [facility] 4 05:35:44 Constipa tion 39973480 Completed 202204/17/2023 Problem Code: K59.00; Problem Code Type: ICD-10; Not Available [facility] 4 05:35:44 Contact dermatit is 75917249 Completed 202204/17/2023 Problem Code: L25.9; Problem Code Type: ICD-10; Not Available [facility] 4 05:35:44 Bursitis of elbow 585930430 Completed 202205/24/2023 Problem Code: M70.32; Problem Code Type: ICD-10; Not Available [facility] 4 05:35:44 Visual disturba nce 75295982 Completed 202205/24/2023 Problem Code: H53.9; Problem Code Type: ICD-10; Not Available [facility] 4 05:35:44 Foot pain 35382066 Completed 202205/24/2023 Problem Code: M79.673; Problem Code Type: ICD-10; Not Available [facility] 4 05:35:44 Asthenia 52925834 Completed 202205/24/2023 Problem Code: R53.1; Problem Code Type: ICD-10; Not Available [facility] 4 05:35:45 Urinary tract infectio us disease 42900683 Completed 202205/28/2023 Problem Code: N39.0; Problem Code Type: ICD-10; Not Available [facility] 4 05:35:45 Abnormal urine 065823660 Completed 202203/26/2023 Problem Code: R82.998; Problem Code Type: ICD-10; Not Available [facility] 4 05:35:46 Blythe - lesion 398495871 Completed 202003/26/2023 Problem Code: L84; Problem Code Type: ICD-10; Not Available [facility] hospital 4 05:35:46 Spontane ous ecchymos is 455600548 Completed 202203/26/2023 Problem Code: R23.3; Problem Code Type: ICD-10; Not Available [facility] hospital 4 05:35:47 Disorder of eye region 644459909 Completed 201803/26/2023 Problem Code: H57.9; Problem Code Type: ICD-10; Not Available [facility] 4 05:35:47 Screenin g for disorder Completed 202203/26/2023 Problem Code: Z13.9; Problem Code Type: ICD-10; Not Available Critical access hospital 4 05:35:48 Anemia 054523671 Active [address], [facility] [address] , [facility] 4 16:07:16 Renal insuffic iency 835143530 Active [address], [place] [address] , [facility] 4 16:07:23 Chronic dermatit is 08729955 Active 2023 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 Starting dupixent . 01/[address], [facility] [address] , [facility] 4 12:05:14 Not for resuscit ation 163037070 Active [address], [place], [address] , [facility] 4 13:10:20 Skin ulcer 72171489 Active [address], [facility] [address] , [facility] 4 13:28:26 Problem Notes None recorded. Procedures Surgical History Date Name Laterality Status Provider Name and Address Organization Details Recorded Time 01/19/2024 Punch Biopsy completed [address], [facility] [address], [facility] 01/19/2024 16:09:17 Imaging Results Imaging Date Name Status LastModified by Organization Details LastModified Time 01/27/2024 x-ray imaging report completed [id number] [place] [id number] [facility] [place], [address] 01/28/2024 07:30:23 01/28/2024 x-ray imaging report completed [id number] No [place] [id number] [facility] [place], [address] 01/28/2024 14:34:24 01/28/2024 electrocardiogram completed [email or web address] Informa tion not available 01/31/2024 16:48:19 Procedure Notes None recorded. Medical Equipment None Reported. Allergies No known drug allergies Medications Name Sig Start Date Stop Date Status Note LastModified by Organization Details LastModified Time Miralax 17 gram oral powder packet Drink 1 packet dissolve d in water once a day as needed for constipa tion 03/25 completed Not Available Not Available Not Available furosemid e 40 mg tablet TAKE ONE TABLET BY MOUTH TWICE A DAY active Not Available Not Available No t Available aspirin 81 mg capsule Take 1 capsule by mouth once a day 07/15 completed Not Available Not Available Not Available atorvasta tin 40 mg tablet Take 1 tablet by mouth once a day 07/15 completed cardiolo gy 2022 Not Available Not Available Not Available metformin 500 mg tablet Take 1 tablet by mouth twice a day 03/26 completed Not Available Not Available Not Available ivermecti n 3 mg tablet TAKE 5 TABLETS BY MOUTH ON DAY 1, DAY 2 AND DAY 7 OF TREATMEN T 09/23 completed Not Available Not Available Not Available atorvasta tin 80 mg tablet TAKE ONE TABLET BY MOUTH EVERY DAY 07/15 completed Not Available Not Available Not Available carvedilo l 25 mg tablet Take 1 tablet by mouth twice a day 01/29 completed Not Available Not Available Not Available prednison e 10 mg tablet Take 1 tablet every day by oral route for 10 days. active dermatol ogy Not Available Not Available Not Available gabapenti n 600 mg tablet TAKE TWO TABLETS BY MOUTH THREE TIMES A DAY 07/15 completed Not Available Not Available Not Available atorvasta tin 20 mg tablet Take 1 tablet by mouth every night 10/12 completed Not Available Not Available Not Available cetirizin e 10 mg tablet Take 0.5 tablets every day by oral route for 14 days. 02/10 completed Not Available Not Available Not Available atorvasta tin 10 mg tablet TAKE 1 TABLET BY MOUTH EVERY NIGHT 07/15 completed Not Available Not Available Not Available cefpodoxi me 200 mg tablet TAKE 1 TABLET BY MOUTH TWICE DAILY FOR 7 DAYS 07/29 completed Not Available Not Available Not Available azithromy abdifatah 250 mg tablet Take 2 by mouth now, then take 1 by mouth daily x 4 days 08/26 completed Not Available Not Available Not Available amiodaron e 200 mg tablet Take 1 tablet twice a day by oral route. active Not Available Not Available No t Available glipizide ER 10 mg tablet, extended release 24 hr TAKE TWO TABLETS BY MOUTH EVERY DAY 07/15 completed Not Available Not Available Not Available sucralfat e 1 gram tablet Take 1 tablet by mouth three times a day as needed prior to meals 07/15 completed Not Available Not Available Not Available ondansetr on HCl 4 mg tablet TAKE ONE TABLET BY MOUTH TWICE A DAY NEEDED FOR NAUSEA AND VOMITING 07/15 completed Not Available Not Available Not Available prednison e 20 mg tablet Take 1 tablet every day by oral route. 02/21 completed [facility] Not Available Not Available Not Available fluoroura cil 5 % topical cream 09/20 completed Not Available Not Available Not Available permethri n 5 % topical cream APPLY (THOROUG HLY MASSAGE INTO SKIN FROM NECK TO SOLES OF FEET) TOPICALL Y ONCE FOR 1 DOSE; LEAVE ON SKIN FOR 8-14 HOURS THEN REMOVE BY THORO 02/21 completed Not Available Not Available Not Available olanzapin e 10 mg tablet TAKE 1 TABLET BY MOUTH EVERY NIGHT 07/15 completed Not Available Not Available Not Available levofloxa abdifatah 250 mg tablet 2 tablet by mouth single dose Then 1 PO Q48 hours X4 doses 04/27 completed Not Available Not Available Not Available doxycycli ne monohydra te 100 mg tablet Take 1 tablet twice a day by oral route. 2023 active [facility] Not Available Not Available Not Available triamcino lone acetonide 0.1 % topical cream APPLY A SMALL AMOUNT TO AFFECTED AREAS TWICE DAILY NEEDED. AVOID FACE AND GENITALS active Not Available Not Available No t Available spironola ctone 25 mg tablet Take 1 tablet every day by oral route. active Not Available Not Available No t Available simvastat in 40 mg tablet Take 1 tab by mouth daily 2018 active Not Available Not Available Not Avai lable Aerochamb er MV spacer Use 1 spacer as directed 03/26 completed Not Available Not Available Not Available famotidin e 20 mg tablet TAKE ONE TABLET BY MOUTH EVERY DAY FOR 7 DAYS 07/15 completed Not Available Not Available Not Available clindamyc in 1 % topical gel Apply topicall y to affected area twice daily as needed 07/17 completed Not Available Not Available Not Available Nitrostat 0.4 mg sublingua l tablet Place 1 tablet under tongue three times a day as needed 07/15 completed Not Available Not Available Not Available tamsulosi n 0.4 mg capsule TAKE TWO CAPSULES BY MOUTH AT BEDTIME 07/15 completed Not Available Not Available Not Available furosemid e 80 mg tablet 02/07 completed Not Available Not Available Not Available ciproflox acin 0.3 % eye drops 1-2 drops four times a day for 5-7 days 07/17 completed Not Available Not Available Not Available lisinopri l 10 mg tablet Take 1 tab by mouth daily 2019 active Not Available Not Available Not Avai lable losartan 25 mg tablet Take 0.5 tablet by mouth once a day 03/26 completed 01/2023 hospital discharg e Not Available Not Available Not Available indometha abdifatah 50 mg capsule TAKE 1 CAPSULE BY MOUTH TWICE DAILY NEEDED. DO NOT TAKE NAPROXEN WHILE ON THIS MEDICATI ON 01/29 completed Not Available Not Available Not Available betametha sone dipropion ate 0.05 % topical cream Apply 1 a small amount to affected area twice a day as directed 03/26 completed Not Available Not Available Not Available docusate sodium 100 mg capsule TAKE ONE CAPSULE BY MOUTH TWICE A DAY NEEDED FOR CONSTIPA TION active Not Available Not Available No t Available omeprazol e 20 mg capsule,d elayed release TAKE ONE CAPSULE BY MOUTH TWICE A DAY 02/21 completed Not Available Not Available Not Available Actos 15 mg tablet Take 1 tablet by mouth once a day 03/26 completed Not Available Not Available Not Available ammonium lactate 12 % topical cream APPLY THIN LAYER TWO TIMES A DAY TO SKIN RASH active Not Available Not Available No t Available olanzapin e 15 mg tablet TAKE ONE TABLET BY MOUTH AT BEDTIME 01/26 completed Not Available Not Available Not Available mupirocin 2 % topical ointment APPLY A SMALL AMOUNT TO THE AFFECTED AREA BY TOPICAL ROUTE 3 TIMES PER DAY 2023 active Not Available Not Available Not Avai lable furosemid e 20 mg tablet TAKE TWO TABLETS BY MOUTH EVERY DAY 02/06 completed Not Available Not Available Not Available gabapenti n 100 mg capsule TAKE ONE CAPSULE BY MOUTH THREE TIMES A DAY 07/15 completed Not Available Not Available Not Available metoprolo l succinate ER 25 mg tablet,ex tended release 24 hr TAKE ONE TABLET BY MOUTH EVERY DAY 07/15 completed Not Available Not Available Not Available ergocalci ferol (vitamin D2) 1,250 mcg (50,000 unit) capsule TAKE 1 CAPSULE BY MOUTH 1 TIME A WEEK 09/20 completed Not Available Not Available Not Available olanzapin e 15 mg disintegr ating tablet DISSOLVE 1 TABLET ON THE TONGUE ONCE DAILY 07/15 completed Not Available Not Available Not Available triamcino lone acetonide 0.1 % lotion Apply 1 a small amount to affected area twice a day as needed Do not apply in any 1 area more than twice a day or longer than 2 weeks as it can cause skin breakdow n. 04/01 completed Not Available Not Available Not Available polyethyl jose glycol 3350 17 gram/dose oral powder MIX 17 GRAMS IN LIQUID AND TAKE IT BY MOUTH ONCE DAILY active Not Available Not Available No t Available Naprosyn 500 mg tablet 04/01 completed Not Available Not Available Not Available ketoconaz ole 2 % topical cream APPLY SMALL AMOUNT TOPICALL Y TO THE AFFECTED AREA TWICE DAILY 01/26 completed Not Available Not Available Not Available pimozide 2 mg tablet Take 1 tablet twice a day by oral route. 07/15 completed per urology note Not Available Not Available Not Available hydroxyzi ne HCl 10 mg tablet Take 1 tablet every day by oral route at bedtime. active Not Available Not Available No t Available ondansetr on 4 mg disintegr ating tablet Place 2 tablets twice a day by translin gual route. 07/15 completed Not Available Not Available Not Available doxepin 5 % topical cream APPLY A THIN LAYER TOPICALL Y TO THE AFFECTED AREAS FOUR TIMES A DAY WITH AN INTERVAL OF AT LEAST 3 TO 4 HOURS BETWEEN APPLICAT IONS 01/26 completed not covered Not Available Not Available Not Available finasteri de 5 mg tablet TAKE ONE TABLET BY MOUTH EVERY DAY 02/21 completed Not Available Not Available Not Available amoxicill in 875 mg-potass ium clavulana te 125 mg tablet One twice daily for five days 09/04 completed Not Available Not Available Not Available amoxicill in 500 mg-potass ium clavulana te 125 mg tablet TAKE ONE TABLET BY MOUTH TWICE A DAY FOR 7 DAYS 07/15 completed Not Available Not Available Not Available Actoplus MET 15 mg-500 mg tablet Take 1 tab by mouth daily 03/23 completed Not Available Not Available Not Available sucralfat e 06/30 completed Not Available Not Available Not Available ProAir HFA 90 mcg/actua tion aerosol inhaler Inhale 1-2 puff using inhaler every four to six hours as needed 07/15 completed Not Available Not Available Not Available FeroSul 325 mg (65 mg iron) tablet TAKE 1 TABLET BY MOUTH TWICE DAILY 02/21 completed Not Available Not Available Not Available Lantus Solostar U-100 Insulin 100 unit/mL (3 mL) subcutane ous pen Inject 5 units every day by subcutan eous route in the morning. 02/21 completed Not Available Not Available Not Available Vitamin D3 50 mcg (2,000 unit) tablet Take 1 tablet by mouth once a day 07/15 completed Not Available Not Available Not Available Children' s Zyrtec Allergy 1 mg/mL oral solution Take 5 mL by oral route. 01/26 completed Not Available Not Available Not Available Jardiance 10 mg tablet Take 1 tablet by mouth once a day 09/01 completed Not Available Not Available Not Available Jardiance 25 mg tablet TAKE 1 TABLET BY MOUTH EVERY DAY 03/26 completed Not Available Not Available Not Available Narcan 4 mg/actuat ion nasal spray administ er 1 syringe full in nostril as needed for excessiv e sedation 2018 active Not Available Not Available Not Avai lable Rybelsus 3 mg tablet 1 tablet by mouth once a day 03/26 completed Not Available Not Available Not Available Vitals Date Recorded Body height Body mass index (BMI) Body weight Body temperature Oxygen saturation Oxygen saturation in Arterial blood by Pulse oximetry Heart rate Respiratory rate Systolic blood pressure Diastolic blood pressure Provider Name and Address Organization Details Last Updated DateTime 4 168.02 cm 28 kg/m2 44226.0 7 g 96.3 [degF] 99 % 99 % 86 /min 17 /min 118 mm[Hg] 80 mm[Hg] SANJANA ADAM MA [facility] 4 09:26:29 Date Recorded Body height Body mass index (BMI) Body weight Body temperature Oxygen saturation Oxygen saturation in Arterial blood by Pulse oximetry Respiratory rate Heart rate Systolic blood pressure Diastolic blood pressure Provider Name and Address Organization Details Last Updated DateTime 4 168.02 cm 29.7 kg/m2 39808.5 9 g 98.2 [degF] 99 % 99 % 12 /min 95 /min 112 mm[Hg] 64 mm[Hg] MAI DUNCAN RN [facility] 4 15:00:44 Date Recorded Body height Body mass index (BMI) Body weight Body temperature Oxygen saturation Oxygen saturation in Arterial blood by Pulse oximetry Respiratory rate Heart rate Systolic blood pressure Diastolic blood pressure Provider Name and Address Organization Details Last Updated DateTime 4 168.02 cm 27.3 kg/m2 79192.7 g 98.2 [degF] 100 % 100 % 15 /min 87 /min 108 mm[Hg] 58 mm[Hg] MAI DUNCAN RN [facility] 4 14:06:03 Date Recorded Body height Body mass index (BMI) Body weight Body temperature Oxygen saturation Oxygen saturation in Arterial blood by Pulse oximetry Heart rate Respiratory rate Systolic blood pressure Diastolic blood pressure Provider Name and Address Organization Details Last Updated DateTime 4 168.02 cm 28.1 kg/m2 36123.6 6 g 98 [degF] 100 % 100 % 76 /min 18 /min 120 mm[Hg] 70 mm[Hg] YOLY KENNEDY LPN [facility] 4 12:59:47 Social History Question Answer Notes LastModified by Organizat ion Details LastModified Time Tobacco Smoking Status Never Smoker VISH LEMA RN [facility], [facility] 06/30/2023 14:09:46 What Was The Date Of Your Most Recent Tobacco Screening? 02/22/2024 [email or web address] Information not available 02/22/2024 Has Tobacco Cessation Counseling Been Provided? No [email or web address] Information not available 01/22/2024 Do You Or Have You Ever Used Any Other Forms Of Tobacco Or Nicotine? No [email or web address] Information not available 06/30/2023 Sex: Male Functional Status None recorded. Mental Status None recorded. Family History Relationship Description Onset Age of this Age Resolved Age Notes Mother Family history of acute medical disorder coronary arteriosclerosis , angina pectoris Notes:*Problem: mother decea 2014 father at young age, work accident. brother unknown issues sister unknown issues Medical History No medical history recorded. Immunizations Vaccine Type Date Status Provider Name and Address Organization Details Recorded Time Td(adult) unspecified formulation 06/28/2000 completed Not Available [facility] 05/07/2023 06:30:20 Influenza, split virus, quadrivalent, PF 09/01/2019 completed Not Available [facility] 05/07/2023 06:30:20 Influenza, high-dose, quadrivalent, PF 07/04/2020 completed Not Available [facility] 05/07/2023 06:30:20 Influenza, high-dose, quadrivalent, PF 03/26/2021 completed Not Available [facility] 05/07/2023 06:30:20 Influenza, high-dose, quadrivalent, PF 04/22/2022 completed Not Available [facility] 05/07/2023 06:30:20 COVID-19, mRNA, LNP-S, PF, 100 mcg/0.5mL dose or 50 mcg/0.25mL dose 09/10/2021 completed Not Available [facility] 05/07/2023 06:30:20 COVID-19 vaccine, vector-nr, [id number], PF, 0.5 mL 11/13/2020 completed Not Available [facility] 05/07/2023 06:30:21 COVID-19, mRNA, LNP-S, bivalent, PF, 30 mcg/0.3 mL dose 04/22/2022 completed Not Available [facility] 05/07/20 06:30:21 pneumococcal polysaccharide PPV23 06/28/2000 completed Not Available [facility] 2022 06:30:21 pneumococcal polysaccharide PPV23 08/14/2020 completed Not Available [facility] 2022 06:30:21 Influenza, high-dose, quadrivalent, PF 03/26/2023 completed Not Available [facility] hospital 07/09/2023 05:31:28 Past Encounters Encounter ID Performer Location Encounter Start Date Encounter Closed Date Diagnosis/Indication Diagnosis SNOMED-CT Code [id number] ADITHYA HOUSTON PA-C [address],[facility] [address] [place] [address] 06/25/2023 15:18:41 06/25/2023 18:04:44 Indwelling urethral urinary catheter in situ [id number] INDIA ARCEO PA-C [address] [place] [address] 06/30/2023 13:57:02 06/30/2023 14:46:44 Atherosclerosis of coronary artery without angina pectoris 51074468197189 3 Type 2 shannon betes mellitus without complication 461095602 Acute kidney injury 1466 9001 Chronic co mbined systolic and diastolic heart failure 55439430551256 0 Schizophrenia 99631320 [id number] Mary Anne Gonzalez RN [address] [place] [address] 07/12/2023 17:53:59 07/12/2023 18:02:39 [id number] INDIA ARCEO PA-C [facility] [address] [place] [address] 07/29/2023 13:38:45 07/29/2023 15:42:16 Infestation by Sarcoptes scabiei jemima hominis [id number] ELSIE ORTEZ [facility] [address] [place] [address] 09/01/2023 12:47:52 09/01/2023 13:53:47 Infestation by Sarcoptes scabiei jemima hominis [id number] Leann Schreiber RN [facility] [address] [place] [address] 09/06/2023 10:24:13 09/06/2023 11:30:53 [id number] INDIA ARCEO PA-C [facility] [address] [place] [address] 09/21/2023 13:16:59 09/21/2023 14:06:58 Atopic dermatitis 48001277 Fatigue 58539846 Type 2 shannon betes mellitus without complication 280460201 [id number] INDIA ARCEO PA-C [facility] [address] [place] [address] 09/24/2023 13:21:51 09/24/2023 14:09:04 Atopic dermatitis 30222906 [id number] INDIA ARCEO PA-C [facility] [address] [place] [address] 10/11/2023 12:49:33 10/11/2023 13:34:21 Chronic combined systolic and diastolic heart failure 62416089340880 0 Chronic re tention of urine 084338629 Localized eruption of skin 700222536 [id number] INDIA ARCEO PA-C [facility] [address] [place] [address] 11/11/2023 14:18:48 11/11/2023 15:02:09 Chronic combined systolic and diastolic heart failure 81340797254686 0 Atopic dermatitis 721817 01 Hyperlipidemia 55575632 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 381925690 Renal insufficiency 7231 89291 [id number] INDIA ARCEO PA-C [facility] [address] [place] [address] 12/24/2023 10:09:36 12/24/2023 10:50:40 Pruritic disorder 761738115 Type 2 shannon betes mellitus without complication 492993805 Anemia 922139329 [id number] INDIA ARCEO PA-C [facility] [address] [place] [address] 01/19/2024 13:20:35 01/19/2024 14:19:23 Chronic combined systolic and diastolic heart failure 79207516362342 0 Renal insufficiency 7231 08031 Anemia 620858398 Atopic dermatitis 930477 01 [id number] Claudia Saini MA [address],[facility] [address] [place] [address] 01/21/2024 13:41:27 01/21/2024 15:14:55 [id number] CESILIA MONZON MD [address],[facility] [address] [place] [address] 01/22/2024 09:25:33 01/22/2024 10:49:03 Chronic dermatitis 99297621 [id number] URBANO WALLS [address],[facility] [address] [place] [address] 01/24/2024 09:15:18 01/24/2024 10:29:09 Chronic dermatitis 34798036 [id number] INDIA ARCEO PA-C [facility] [address] [place] [address] 01/27/2024 14:48:47 01/27/2024 15:21:58 Chronic combined systolic and diastolic heart failure 99818997449437 0 Chronic dermatitis 25372 486 [id number] INDIA ARCEO PA-C [facility] [address] [place] [address] 02/08/2024 13:52:15 02/08/2024 14:31:56 Chronic combined systolic and diastolic heart failure [id number] 0 Chronic dermatitis 89073 007 Type 2 shannon betes mellitus without complication [id number] Renal insufficiency 7231 16331 Anemia [id number] Mary Anne Gonzalez RN [address] [place] [address] 02/16/2024 09:47:47 02/16/2024 09:57:54 [id number] INDIA ARCEO PA-C [address] [place] [address] 02/22/2024 12:52:27 02/22/2024 13:37:46 Chronic combined systolic and diastolic heart failure [id number] 0 Skin ulcer 73714904 Renal insufficiency 7231 27371 Chronic dermatitis 32717 007 Health Concerns Section Related Observation LastModified by Organization Detai ls LastModified Time None Recorded Concern Status LastModified by Organization Details LastModified Time None Recorded Advance Directives Directive None Recorded Payers Encounter Date Sequence Insurance Name Policy Number Policy Shah Covered Member ID Shah Member ID Guarantor Name 01/24/2024 1 [place] Miguel P Cook [id number] Miguel P Cook 01/24/2024 2 [facility] (MEDICAID) Miguel P Cook [id number] Miguel P Cook 01/27/2024 1 [place] Miguel P Cook [id number] Miguel P Cook 01/27/2024 2 [facility] (MEDICAID) Miguel P Cook [id number] Miguel P Cook 02/08/2024 1 [place] Miguel P Cook [id number] Miguel P Cook 02/08/2024 2 [facility] (MEDICAID) Miguel P Cook [id number] Miguel P Cook 02/16/2024 1 [place] Miguel P Cook [id number] Miguel P Cook 02/16/2024 2 [facility] (MEDICAID) Miguel P Cook [id number] Miguel P Cook 02/22/2024 1 [place] Miguel P Cook [id number] Miguel P Cook 02/22/2024 2 [facility] (MEDICAID) Miguel P Cook [id number] Miguel P Cook Notes Date Note Type Note Provider Name and Address Organization Details Recorded Time 01/24/2024 text/html HPI Notes: Susannah talley today presents for another follow up for ongoing rash, present to arms, legs, trunk, and most recently feeling symptoms to scalp. He reports rash is sore, prickling, and intensely pruritic. Patient with past history of similar rashes and pruritis. He reports he had seen Dr. Doty many years ago for pruritic rash. He is diagnosed with CKD stage IV, most recent GFR 21. He has been prescribed a long prednisone course at recent PCP visit 01/19/24, but was not able start until yesterday due to pharmacy availability. Received first dose prednisone 40 mg Wednesday through this office, and remainder of Rx is being delivered today. He had a punch biopsy performed 01/19/24, no results yet returned. He has been prescribed multiple ointments (triamcinolone, doxepin, OTC hydrocortisone, and Lac-Hydrin), with some being too expensive to purchase, and with use of others, only marginal improvement in symptoms. He was treated by PCP for presumed scabies 07/2023 for a continual rash for 4 months. Upon review, there is an Rx for hydroxyzine 10 mg tablets last filled 08/25/23, he cannot recall taking this medication. He denies use of OTC PO antihistamines. He has a [place] [facility] [place] ordered 01/19/24, no scheduled appointment yet and has not yet been contacted. URBANO WALLS [address], [place], [address], [facility]. 01/24/2024 10:46:45 02/08/2024 text/html HPI Notes: Miguel is here in hospital follow-up for congestive heart failure, renal failure, and rash. His rash has improved with prednisone though has persistent crusting lesions on his lower extremities. It feels to him more like scabies which he has had in the past. His breathing is doing better though he did put on some weight when he turned home from the hospital. Retaining a bit more fluid. Currently he is only taking furosemide and prednisone. He had refused to take other medications prescribed at discharge. His urine output has been okay. He is sleeping okay at night. Short of breath with exertion. Improved from before the hospital stay He is fixated on a hospitalist telling him that he only has 6 months to live. INDIA ARCEO PA-C [address], [place], [address], [facility]. 02/08/2024 15:02:48 02/22/2024 text/html HPI Notes: Miguel is here for follow-up of renal insufficiency, congestive heart failure, and chronic dermatitis. He was seen by dermatology at [facility] yesterday. They are considering starting Dupixent. He is having a good day today. Denies any chest pain or shortness of breath. His appetite has been too good. His urine has been more clear. INDIA ARCEO PA-C [address], [place], [address], [facility], [facility]. 02/22/2024 13:29:50
--- OUTSIDE RECORDS SUMMARY | 2024-02-22 14:54 | XMS_ITS | Continuity of Care Document ---
Author Organization [place] - [facility] [place] [address] Assessment Encounter Date Assessment Date Assessment LastModified by Organization Details LastModified Time 02/22/2024 02/22/2024 prednisone 10 mg [email or web address] Not available 02/22/2024 13:08:53 Plan of Treatment [...] serum or plasma 2023 024 [email or web address] 63 [facility] (Registration ), [address] [place] [address] [place], [address], 02/22/2024 13:35:20 Referral None recorded. Procedures None recorded. Surgeries None recorded. Imaging None recorded. Medication Orders mupirocin 2 % topical ointment 2023 024 [facility], [address] [facility], [place], [address], 02/22/2024 13:25:11 Patient TargetsNo targets recorded. Patient InstructionsNo instructions recorded. Reason for Referral End Frazer Referral for Ch ronic combined systolic and diastolic heart failure overdue for appt. CHF. More short of breath Referring Physician: Reinier Arceo, Family Medicine, Encounter Date: 10/12/2023 [employer] Referral for A topic dermatitis subacute resistant generalize urticarial and excoriated papular rash sparing only face, hands, feet, and scalp. Punch biopsy taken today Referring Physician: Reinier Arceo [facility] Medicine, Encounter Date: 01/19/2024 Results Created Date Observation Date Name Description Value Unit Range Abnormal Flag Note LastModifiedBy Organization Detail LastModifiedTime 01/27/20 24 01/27/2024 x-ray imagi ng repor vivian Patiilan t Name: Shay Sanchez Unit #: [id number] Loc: ER Orderi ng Provid er: Christo Conner M.D. Accoun t #: [id number] Status : REG ER Primar y Care Provid er: Ranjit quinonesNatalee perkins Date of Exam: Sex: M Admiss [...] TINUM: Normal . HEART: Normal . PULMON LEANDER VASCUL ATURE: Normal . LUNGS: Clear. PLEURA L SPACE: No pleura l effusi on or pneumo thorax . BONE:W ithin normal limits for the patien t's age. There is inferi or sublux ation of the right humeru s relati ve to the glenoi d. OTHER FINDIN GS:Nor mal. IMPRES OTTONIEL: 1. No acute pulmon leander findin gs. 2. Inferi or sublux ation [...] report in error, please notify us immedi ately at and return the origin al report to us at the addres s above. Thank- you. kwesi [facility] [address] [place], [address] 01/28/2024 07:30:23 01/28/20 24 01/28/2024 x-ray imagi ng repor t Patien t Name: Shay Sanchez Unit #: [id number] Loc: Orderandra ng Provid er: Devin Barreto M.D. Accoun t #: [id number] Status : ADM IN Primar y Care Provid er: Natalee Clark gregorio Date of Exam: Sex: M Admiss ion [...] gs on recent chest x-ray is second leander to positi oning. Mild degene rative change s of the AC joint. Mild spurri ng at the unders urface of the acromi on. Glenoh umeral joint space is mainta ined. SOFT TISSUE : Normal . IMPRES OTTONIEL: Mild degene rative change s. No eviden [...] the addres s above. Thank- you. kwesi [facility] [address] , [place], [address] 01/28/2024 14:34:24 01/28/20 24 01/28/2024 elect nelli christensen am No observ ation record ed. [email or web address] Not Available 2023 16:48:19 Result Notes None recorded. Problems Name Problem SNOMED Code Status Onset Date Resolution Date Notes Provider Name and Address Organization Details Recorded Time Type 2 diabetes mellitus without complica tion [id number] Active 2018 Signifca nt improvem ent with behavior al changes Problem Code: E11.9; Problem Code Type: ICD-10; MD [address], [place], [address] , [facility]. 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 No change made today. Problem Code: E78.5; Problem Code Type: ICD-10; Not Available [facility] 3 04:55:33 Schizoph terrence 93510340 Active 201809/11/19 22 - Comments only - Reinier Arceo RPA - Continue s to follow-u p with Dr. Rowland at [facility] . Problem Code: F20.9; Problem Code Type: ICD-10; MD [address], [facility] [address] , [facility] 4 10:26:49 Recurren t major depressi on 93475886 Active 2018 Problem Code: F33.9; Problem Code Type: ICD-10; Not Available [facility] 3 04:55:34 Erectile dysfunct ion 428024962 Active 2018 Problem Code: N52.9; Problem Code Type: ICD-10; Not Available [facility] 3 04:55:34 Essentia l hyperten ottoniel 81926542 Active 2018 Problem Code: I10; Problem Code Type: ICD-10; MD Brett [address], [facility] [address] , [facility] 4 10:26:53 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 31160756885 9100 Active 201801/30/20 23 - Comments only - Reinier Arceo RPA - Acute flare necessit [facility] ization thought to be secondar y to obstruct chelsy uropathy Problem Code: I50.42; Problem Code Type: ICD-10; CESILIA MONZON MD [address], [place], [address] , [facility] 4 10:26:36 Panic disorder 191438855 Active 2018 Problem Code: F41.0; Problem Code Type: ICD-10; Not Available [facility] 3 04:55:35 Counseli ng Completed 201803/25/2019 Problem Code: Z71.89; Problem Code Type: ICD-10; Not Available [facility] 3 04:55:35 Adult health examinat ion Active 2019 Problem Code: Z00.00; Problem Code Type: ICD-10; CESILIA MONZON MD [address], [place], [address] , [facility] 4 10:26:39 Viral screenin g Completed 201909/16/2019 Problem Code: Z11.59; Problem Code Type: ICD-10; Not Available [facility] 3 04:55:35 Onychomy cosis due to dermatop hyte 687548820 Active 202104/22/20 22 - Comments only - Reinier Arceo RPA - His toenails were clipped today. Problem Code: B35.1; Problem Code Type: ICD-10; Not Available [facility] 3 04:55:35 Acute kidney injury 52878754 Active 202201/30/20 23 - Comments only - Reinier Arceo RPA - 01/2023 hospital ization. Cr 5.71. Thought to be secondar y to obstruct chelsy uropathy superimp osed on cardiore nal physiolo gy. Problem Code: N17.9; Problem Code Type: ICD-10; Not Available [facility] 3 04:55:36 Acne vulgaris 83448333 Completed 201910/19/2019 Problem Code: L70.0; Problem Code Type: ICD-10; Not Available [facility] 3 04:55:36 Major depressi on, single episode 42443651 Completed 201803/17/2019 Problem Code: F32.9; Problem Code Type: ICD-10; Not Available [facility] 3 04:55:36 Neuropat hy due to type 2 diabetes mellitus 49426563933 9106 Completed 201803/17/2019 Problem Code: E11.40; Problem Code Type: ICD-10; Not Available [facility] 3 04:55:36 Diabetes mellitus 73913241 Completed 201803/17/2019 Problem Code: E13.9; Problem Code Type: ICD-10; Not Available [facility] 3 04:55:36 Dyspnea 098440101 Completed 202201/29/2023 Problem Code: R06.02; Problem Code Type: ICD-10; Not Available [facility] 3 04:55:36 Severe obesity 11720391432 104 Completed 201803/24/2023 Problem Code: E66.01; Problem Code Type: ICD-10; Not Available [facility] 3 04:55:37 Pneumoni a 244615989 Completed 201909/01/2019 Problem Code: J18.9; Problem Code Type: ICD-10; Not Available [facility] 3 04:55:37 Heart failure 87114938 Completed 201803/17/2019 Problem Code: I50.9; Problem Code Type: ICD-10; Not Available [facility] 3 04:55:37 Onychomy cosis due to dermatop hyte 321622907 Completed 201803/17/2019 Problem Code: B35.1; Problem Code Type: ICD-10; Not Available [facility] 3 04:55:37 Insomnia 818707087 Completed 201803/17/2019 Problem Code: G47.00; Problem Code Type: ICD-10; Not Available [facility] 3 04:55:37 Orthopne a 51944583 Completed 201803/17/2019 Problem Code: R06.01; Problem Code Type: ICD-10; Not Available [facility] 3 04:55:37 Nonulcer dyspepsi a 3398345 Completed 201803/17/2019 Problem Code: K30; Problem Code Type: ICD-10; Not Available [facility] 3 04:55:38 Chest pain 17185169 Completed 201910/19/2019 Problem Code: R07.89; Problem Code Type: ICD-10; Not Available [facility] 3 04:55:38 Dyspnea 518054563 Completed 201910/19/2019 Problem Code: R06.09; Problem Code Type: ICD-10; Not Available [facility] 3 04:55:38 Mixed hyperlip idemia 116212904 Completed 201803/17/2019 Problem Code: E78.2; Problem Code Type: ICD-10; Not Available [facility] 3 04:55:38 Diarrhea 13366266 Completed 201910/19/2019 Problem Code: R19.7; Problem Code Type: ICD-10; Not Available [facility] 3 04:55:38 HIV screenin g Completed 201910/19/2019 Problem Code: Z11.4; Problem Code Type: ICD-10; Not Available [facility] 3 04:55:38 Localize d eruption of skin 999877397 Completed 201803/17/2019 Problem Code: R21; Problem Code Type: ICD-10; Not Available [facility] 3 04:55:39 Urinary tract infectio us disease 12457735 Completed 202203/25/2023 Problem Code: N39.0; Problem Code Type: ICD-10; Not Available [facility] 4 05:35:44 Constipa tion 31829312 Completed 202204/17/2023 Problem Code: K59.00; Problem Code Type: ICD-10; Not Available [facility] 4 05:35:44 Contact dermatit is 42842958 Completed 202204/17/2023 Problem Code: L25.9; Problem Code Type: ICD-10; Not Available [facility] 4 05:35:44 Bursitis of elbow 861485483 Completed 202205/24/2023 Problem Code: M70.32; Problem Code Type: ICD-10; Not Available [facility] 4 05:35:44 Visual disturba nce 04877878 Completed 202205/24/2023 Problem Code: H53.9; Problem Code Type: ICD-10; Not Available [facility] 4 05:35:44 Foot pain 99393792 Completed 202205/24/2023 Problem Code: M79.673; Problem Code Type: ICD-10; Not Available [facility] 4 05:35:44 Asthenia 23208832 Completed 202205/24/2023 Problem Code: R53.1; Problem Code Type: ICD-10; Not Available [facility] 4 05:35:45 Urinary tract infectio us disease 11450291 Completed 202205/28/2023 Problem Code: N39.0; Problem Code Type: ICD-10; Not Available [facility] 4 05:35:45 Abnormal urine 499917914 Completed 202203/26/2023 Problem Code: R82.998; Problem Code Type: ICD-10; Not Available [facility] 4 05:35:46 Llano - lesion 130134238 Completed 202003/26/2023 Problem Code: L84; Problem Code Type: ICD-10; Not Available [facility] 4 05:35:46 Spontane ous ecchymos is 575829035 Completed 202203/26/2023 Problem Code: R23.3; Problem Code Type: ICD-10; Not Available [facility] 4 05:35:47 Disorder of eye region 694630450 Completed 201803/26/2023 Problem Code: H57.9; Problem Code Type: ICD-10; Not Available [facility] 4 05:35:47 Screenin g for disorder Completed 202203/26/2023 Problem Code: Z13.9; Problem Code Type: ICD-10; Not Available [facility] 4 05:35:48 Anemia 885612523 Active [address], [place], [address] , [facility] 4 16:07:16 Renal insuffic iency 988211444 Active [address], [facility] [address] , [facility] 4 16:07:23 Chronic dermatit is 49163868 Active 2023 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 Starting dupixent . 01/[address], [place], [address] , [facility] 4 12:05:14 Not for resuscit ation 368490842 Active [address], [place], [address] , [facility] 4 13:10:20 Skin ulcer 73357139 Active [address], [facility] [address] , [facility] 4 13:28:26 Problem Notes None recorded. Procedures Surgical History Date Name Laterality Status Provider Name and Address Organization Details Recorded Time 01/19/2024 Punch Biopsy completed [address], [place], [address], [facility] 01/19/2024 16:09:17 Imaging Results None recorded. Procedure Notes None recorded. Medical Equipment None [...] every day by oral route. 02/21 completed [facility] Not Available Not Available Not Available [...] a day by oral route. 2023 active [facility] Not Available Not Available Not Available [...] Updated DateTime 4 168.02 cm 28.1 kg/m2 57536.6 6 g 98 [degF] 100 % 100 % 76 /min 18 /min 120 mm[Hg] 70 mm[Hg] YOLY KENNEDY LPN [facility] 12:59:47 Social History Question Answer Notes LastModified by Organizat ion Details LastModified Time Tobacco Smoking Status Never Smoker VISH LEMA RN null, [facility] 06/30/2023 14:09:46 What Was The Date Of [...] arteriosclerosis , angina pectoris Notes:*Problem: mother decea sed 2014 father at young age, work accident. brother unknown issues sister unknown issues Medical History No medical history recorded. Immunizations Vaccine Type Date Status Provider Name and Address Organization Details Recorded Time Td(adult) unspecified formulation 06/28/2000 completed Not Available [facility] 05/07/2023 06:30:20 Influenza, split virus, quadrivalent, PF 09/01/2019 completed Not Available [facility] 05/07/2023 06:30:20 Influenza, high-dose, quadrivalent, PF 07/04/2020 completed Not Available [facility] 05/07/2023 06:30:20 Influenza, high-dose, quadrivalent, PF 03/26/2021 completed Not Available [facility] 05/07/2023 06:30:20 Influenza, high-dose, quadrivalent, PF 04/22/2022 completed Not Available [facility] 05/07/2023 06:30:20 COVID-19, mRNA, LNP-S, PF, 100 mcg/0.5mL dose or 50 mcg/0.25mL dose 09/10/2021 completed Not Available [facility] 05/07/2023 06:30:20 COVID-19 vaccine, vector-nr, rS-Ad26, PF, 0.5 mL 11/13/2020 completed Not Available [facility] 05/07/2023 06:30:21 COVID-19, mRNA, LNP-S, bivalent, PF, 30 mcg/0.3 mL dose 04/22/2022 completed Not Available [facility] 05/07/20 06:30:21 pneumococcal polysaccharide PPV23 06/28/2000 completed Not Available [facility] 2022 06:30:21 pneumococcal polysaccharide PPV23 08/14/2020 completed Not Available [facility] 2022 06:30:21 Influenza, high-dose, quadrivalent, PF 03/26/2023 completed Not Available [facility] 07/09/2023 05:31:28 Past Encounters Encounter ID Performer Location Encounter Start Date Encounter Closed Date Diagnosis/Indication Diagnosis SNOMED-CT Code [id number] CESILIA MONZON MD [address],[facility] [address] [place] [address] 01/22/2024 09:25:33 01/22/2024 10:49:03 Chronic dermatitis 49117738 [id number] URBANO WALLS [address],[facility] [address] [place] [address] 01/24/2024 09:15:18 01/24/2024 10:29:09 Chronic dermatitis 19452882 [id number] REINIER ARCEO PA-C [facility] [address] [facility] [place] [address] 01/27/2024 14:48:47 01/27/2024 15:21:58 Chronic combined systolic and diastolic heart failure 15378697885294 0 Chronic dermatitis 71938 211 [id number] REINIER ARCEO PA-C [facility] [place] [address] 02/08/2024 13:52:15 02/08/2024 14:31:56 Chronic combined systolic and diastolic heart failure 95294734618167 0 Chronic dermatitis 40294 007 Type 2 shannon betes mellitus without complication 049341006 Renal insufficiency 7231 24324 Anemia 861239168 [id number] Mary Anne Gonzalez RN [address] [place] [address] 02/16/2024 09:47:47 02/16/2024 09:57:54 [id number] REINIER ARCEO PA-C [facility] [address] [place] [address] 02/22/2024 12:52:27 02/22/2024 13:37:46 Chronic combined systolic and diastolic heart failure 97904967045110 0 Skin ulcer 36496593 Renal insufficiency 7231 79688 Chronic dermatitis 63339 007 Health Concerns Section Related Observation LastModified by Organization Detai ls LastModified Time None Recorded Concern Status LastModified by Organization Details LastModified Time None Recorded Payers Encounter Date Sequence Insurance Name Policy Number Policy Shah Covered Member ID Shah Member ID Guarantor Name 02/22/2024 1 [place] Miguel Sanchez [id number] Miguel Sanchez 02/22/2024 2 [facility] (MEDICAID) Miguel Sanchez [id number] Miguel Sanchez Notes Date Note Type Note Provider Name and Address Organization Details Recorded Time 02/22/2024 text/html HPI Notes: Miguel is here for follow-up of renal insufficiency, congestive heart failure, and chronic dermatitis. He was seen by dermatology at [facility] yesterday. They are considering starting Dupixent. He is having a good day today. Denies any chest pain or shortness of breath. His appetite has been too good. His urine has been more clear. REINIER ARCEO PA-C [address], [place], [address], [facility], [facility]. 02/22/2024 13:29:50
--- OUTSIDE RECORDS SUMMARY | 2024-02-22 14:54 | XMS_ITS | Continuity of Care Document ---
Author Organization [place] [facility], [facility] Address [address] [place] [address] Assessment No assessment recorded. Plan of Treatment Reminders Order Date Submit [...] Not available Not available Not available Lab None recorded. Referral None recorded. Procedures None recorded. Surgeries None recorded. Imaging None recorded. Medication Orders None recorded. Patient TargetsNo targets recorded. Patient InstructionsNo instructions recorded. 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 CHF. 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 Punch biopsy taken today Referring Physician: Reinier Arceo [facility] Medicine, Encounter Date: 01/19/2024 Results Created Date Observation Date Name Description Value Unit Range Abnormal Flag Note LastModifiedBy Organization Detail LastModifiedTime 01/27/2001/27/2024 x-ray imagi ng repor t Angel Luis t Name: Shay Sanchez Unit #: [id number] Loc: ER Orderi ng Provid er: Christo Conner M.D. Acchreminio t #: [id number] [phone] Status : REG ER Primar y Care Provid er: Natalee Clark Date of Exam: Sex: M Admiss ion [...] bution by any person other than this [facility] is strict ly prohib ited. If you receiv e this report in error, please notify us immedi vikyly at and return the origin al report to us at the addres s above. Thank- you. [email or web address] [facility] [address] [place], [address] 01/28/2024 07:30:23 01/28/20 24 01/28/2024 x-ray imagi ng repor t Patien t Name: Shay Sanchez Unit #: [id number] Loc: MS Lisa anthony Provid er: Devin Barreto M.D. Accoun t #: [phone] Status : ADM IN Primar y Care Provid er: Ranjit on,Pat gregorio Date of Exam: Sex: M Admiss [...] REPOSI TORY: RADIAT ION DOSE DELIVE RED: Orderjaylen d By: Devin Barreto M.D. CC: ------ [...] error, please notify us immedi shabnam at and return the origin al report to us at the addres s above. Thank- you. [email or web address] [facility] [address], [place], [address] 01/28/2024 14:34:24 01/28/20 24 01/28/2024 elect kerriesiomara fermin am No observ ation record ed. [email or web address] Not Available 2023 16:48:19 Result Notes None recorded. Problems Name Problem SNOMED Code Status Onset Date Resolution Date Notes Provider Name and Address Organization Details Recorded Time Type 2 diabetes mellitus without complica tion [id number] Active 2018 Signifca nt improvem ent with behavior al changes Problem Code: E11.9; Problem Code Type: ICD-10; CESILIA MONZON MD [address], [place], [address] , [facility] 4 10:26:43 Lumbosac ral radiculo plexus neuropat hy due to type 2 diabetes mellitus 664401683 Completed 201803/26/2023 Problem Code: E11.44; Problem Code Type: ICD-10; Not Available [facility] 4 05:35:47 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 No change made today. Problem Code: E78.5; Problem Code Type: ICD-10; Not Available [facility] 3 04:55:33 Seven ocampo 74645289 Active 201809/11/19 22 - Comments only - Reinier Arceo RPA - Continue s to follow-u p with Dr. Rowland at [facility] . Problem Code: F20.9; Problem Code Type: ICD-10; MD [address], [place], [address] , [facility] 4 10:26:49 Recurren t major depressi on 46493005 Active 2018 Problem Code: F33.9; Problem Code Type: ICD-10; Not Available [facility] 3 04:55:34 Erectile dysfunct ion 301434342 Active 2018 Problem Code: N52.9; Problem Code Type: ICD-10; Not Available [facility] 3 04:55:34 [facility] hyperten ottoniel 20950761 Active 2018 Problem Code: I10; Problem Code Type: ICD-10; MD [address], [place], [address] , [facility] 4 10:26:53 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 74541908119 9100 Active 201801/30/20 23 - Comments only - Reinier Arceo RPA - Acute flare necessit [facility] ization thought to be secondar y to obstruct chelsy uropathy Problem Code: I50.42; Problem Code Type: ICD-10; MD [address], [place], [address] , [facility] 4 10:26:36 Panic disorder 989983840 Active 2018 Problem Code: F41.0; Problem Code Type: ICD-10; Not Available [facility] 3 04:55:35 Counseli ng Completed 201803/25/2019 Problem Code: Z71.89; Problem Code Type: ICD-10; Not Available [facility] 3 04:55:35 Adult health examinat ion Active 2019 Problem Code: Z00.00; Problem Code Type: ICD-10; CESILIA MONZON MD [address], [place], [address] , [facility]. 4 10:26:39 Viral screenin g Completed 201909/16/2019 Problem Code: Z11.59; Problem Code Type: ICD-10; Not Available [facility] 3 04:55:35 Onychomy cosis due to dermatop hyte 633597441 Active 202104/22/20 22 - Comments only - Reinier Arceo RPA - His toenails were clipped today. Problem Code: B35.1; Problem Code Type: ICD-10; Not Available [facility] 3 04:55:35 Acute kidney injury 39616982 Active 202201/30/20 23 - Comments only - Reinier Arceo [facility] - 01[facility]23 hospital ization. Cr 5.71. Thought to be secondar y to obstruct chelsy uropathy superimp osed on cardiore nal physiolo gy. Problem Code: N17.9; Problem Code Type: ICD-10; Not Available [facility] 3 04:55:36 Acne vulgaris 28096688 Completed 201910/19/2019 Problem Code: L70.0; Problem Code Type: ICD-10; Not Available [facility] 3 04:55:36 Major depressi on, single episode 80611316 Completed 201803/17/2019 Problem Code: F32.9; Problem Code Type: ICD-10; Not Available [facility] 3 04:55:36 Neuropat hy due to type 2 diabetes mellitus 49579543653 9106 Completed 201803/17/2019 Problem Code: E11.40; Problem Code Type: ICD-10; Not Available [facility] 3 04:55:36 Diabetes mellitus 62217935 Completed 201803/17/2019 Problem Code: E13.9; Problem Code Type: ICD-10; Not Available [facility] 3 04:55:36 Dyspnea 031942799 Completed 202201/29/2023 Problem Code: R06.02; Problem Code Type: ICD-10; Not Available [facility] 3 04:55:36 Severe obesity 07473370927 104 Completed 201803/24/2023 Problem Code: E66.01; Problem Code Type: ICD-10; Not Available [facility] 3 04:55:37 Pneumoni a 221067261 Completed 201909/01/2019 Problem Code: J18.9; Problem Code Type: ICD-10; Not Available [facility] 3 04:55:37 Heart failure 46176509 Completed 201803/17/2019 Problem Code: I50.9; Problem Code Type: ICD-10; Not Available [facility] 3 04:55:37 Onychomy cosis due to dermatop hyte 967708627 Completed 201803/17/2019 Problem Code: B35.1; Problem Code Type: ICD-10; Not Available [facility] 3 04:55:37 Insomnia 992354978 Completed 201803/17/2019 Problem Code: G47.00; Problem Code Type: ICD-10; Not Available [facility] 3 04:55:37 Orthopne a 50641169 Completed 201803/17/2019 Problem Code: R06.01; Problem Code Type: ICD-10; Not Available [facility] 3 04:55:37 Nonulcer dyspepsi a 8931315 Completed 201803/17/2019 Problem Code: K30; Problem Code Type: ICD-10; Not Available [facility] 3 04:55:38 Chest pain 37130373 Completed 201910/19/2019 Problem Code: R07.89; Problem Code Type: ICD-10; Not Available [facility] 3 04:55:38 Dyspnea 586555829 Completed 201910/19/2019 Problem Code: R06.09; Problem Code Type: ICD-10; Not Available [facility] 3 04:55:38 Mixed hyperlip idemia 253688995 Completed 201803/17/2019 Problem Code: E78.2; Problem Code Type: ICD-10; Not Available [facility] 3 04:55:38 Diarrhea 40312841 Completed 201910/19/2019 Problem Code: R19.7; Problem Code Type: ICD-10; Not Available [facility] 3 04:55:38 HIV screenin g Completed 201910/19/2019 Problem Code: Z11.4; Problem Code Type: ICD-10; Not Available [facility] 3 04:55:38 Localize d eruption of skin 559950201 Completed 201803/17/2019 Problem Code: R21; Problem Code Type: ICD-10; Not Available [facility] 3 04:55:39 Urinary tract infectio us disease 33084128 Completed 202203/25/2023 Problem Code: N39.0; Problem Code Type: ICD-10; Not Available [facility] 4 05:35:44 Constipa tion 74154700 Completed 202204/17/2023 Problem Code: K59.00; Problem Code Type: ICD-10; Not Available [facility] 4 05:35:44 Contact dermatit is 39338986 Completed 202204/17/2023 Problem Code: L25.9; Problem Code Type: ICD-10; Not Available [facility] 4 05:35:44 Bursitis of elbow 539657069 Completed 202205/24/2023 Problem Code: M70.32; Problem Code Type: ICD-10; Not Available [facility] 4 05:35:44 Visual disturba nce 48027902 Completed 202205/24/2023 Problem Code: H53.9; Problem Code Type: ICD-10; Not Available [facility] 4 05:35:44 Foot pain 07798217 Completed 202205/24/2023 Problem Code: M79.673; Problem Code Type: ICD-10; Not Available [facility] 4 05:35:44 Asthenia 82791080 Completed 202205/24/2023 Problem Code: R53.1; Problem Code Type: ICD-10; Not Available [facility] 4 05:35:45 Urinary tract infectio us disease 48913971 Completed 202205/28/2023 Problem Code: N39.0; Problem Code Type: ICD-10; Not Available [facility] 4 05:35:45 Abnormal urine 953586102 Completed 202203/26/2023 Problem Code: R82.998; Problem Code Type: ICD-10; Not Available [facility] 4 05:35:46 [place] - lesion 831306540 Completed 202003/26/2023 Problem Code: L84; Problem Code Type: ICD-10; Not Available [facility] 4 05:35:46 Spontane ous ecchymos is 772658310 Completed 202203/26/2023 Problem Code: R23.3; Problem Code Type: ICD-10; Not Available [facility] 4 05:35:47 Disorder of eye region 580385104 Completed 201803/26/2023 Problem Code: H57.9; Problem Code Type: ICD-10; Not Available [facility] 4 05:35:47 Screenin g for disorder Completed 202203/26/2023 Problem Code: Z13.9; Problem Code Type: ICD-10; Not Available [facility] 4 05:35:48 Anemia 743942112 Active [address], [place], [address] , [facility]. 4 16:07:16 Renal insuffic iency 959734473 Active [address], [place], [address] , [facility]. 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 Starting dupixent . 01/[address], [place], [address] , [facility] 12:05:14 Not for resuscit ation 647235535 Active [address], [facility] [address] , [facility] 13:10:20 Skin ulcer 04273960 Active [address], [facility] [address] , [facility] 13:28:26 Problem Notes None recorded. Procedures Surgical History Date Name Laterality Status Provider Name and Address Organization Details Recorded Time 01/19/2024 Punch Biopsy completed [address], [place], [address], [facility] 01/19/2024 16:09:17 Imaging Results None recorded. Procedure [...] every day by oral route. 02/21 completed [facility] Derm Not Available Not Available Not Available [...] a day by oral route. 2023 active [facility] derm Not Available Not Available Not Available [...] Not Available Not Available Not Available Vitals None Recorded Social History Question Answer Notes LastModified by Organizat ion Details LastModified Time Tobacco Smoking Status Never Smoker VISH LEMA RN [facility], [facility] 06/30/2023 14:09:46 What Was The Date [...] Td(adult) unspecified formulation 06/28/2000 completed Not Available [facility] 05/07/2023 06:30:20 Influenza, split virus, quadrivalent, PF 09/01/2019 completed Not Available [facility] 05/07/2023 06:30:20 Influenza, high-dose, quadrivalent, PF 07/04/2020 completed Not Available [facility] 05/07/2023 06:30:20 Influenza, high-dose, quadrivalent, PF 03/26/2021 completed Not Available [facility] 05/07/2023 06:30:20 Influenza, high-dose, quadrivalent, PF 04/22/2022 completed Not Available [facility] 05/07/2023 06:30:20 COVID-19, mRNA, LNP-S, PF, 100 mcg/0.5mL dose or 50 mcg/0.25mL dose 09/10/2021 completed Not Available [facility] 05/07/2023 06:30:20 COVID-19 vaccine, vector-nr, rS-Ad26, PF, 0.5 mL 11/13/2020 completed Not Available [facility] 05/07/2023 06:30:21 COVID-19, mRNA, LNP-S, bivalent, PF, 30 mcg/0.3 mL dose 04/22/2022 completed Not Available [facility] 05/07/20 06:30:21 pneumococcal polysaccharide PPV23 06/28/2000 completed Not Available [facility] 2022 06:30:21 pneumococcal polysaccharide PPV23 08/14/2020 completed Not Available [facility] 2022 06:30:21 Influenza, high-dose, quadrivalent, PF 03/26/2023 completed Not Available [facility] 07/09/2023 05:31:28 Past Encounters Encounter ID Performer Location Encounter Start Date Encounter Closed Date Diagnosis/Indication Diagnosis SNOMED-CT Code [id number] REINIER ARCEO PA-C [address] [address] [place] [address] 01/19/2024 13:20:35 01/19/2024 14:19:23 Chronic combined systolic and diastolic heart failure [id number] 0 Renal insufficiency 7231 18261 Anemia 029028644 Atopic dermatitis 978966 01 [id number] Claudia Saini MA [address] [place] [address] 01/21/2024 13:41:27 01/21/2024 15:14:55 [id number] CESILIA MONZON MD [address] [place] [address] 01/22/2024 09:25:33 01/22/2024 10:49:03 Chronic dermatitis 25199002 [id number] [place] [address] [place] [address] 01/24/2024 09:15:18 01/24/2024 10:29:09 Chronic dermatitis 29992408 [id number] REINIER ARCEO PA-C [address] [address] [address] [place] [address] 01/27/2024 14:48:47 01/27/2024 15:21:58 Chronic combined systolic and diastolic heart failure 32710301600201 0 Chronic dermatitis 05833 656 [id number] REINIER ARCEO PA-C [address] [address] [address] [facility] [place] [address] 02/08/2024 13:52:15 02/08/2024 14:31:56 Chronic combined systolic and diastolic heart failure 37399031320190 0 Chronic dermatitis 62845 007 Type 2 shannon betes mellitus without complication 656156693 Renal insufficiency 7231 76619 Anemia 941499122 [id number] Mary Anne Gonzalez RN [address],[facility] [address] [place] [address] 02/16/2024 09:47:47 02/16/2024 09:57:54 Health Concerns Section Related Observation LastModified by Organization Detai ls LastModified Time None Recorded Concern Status LastModified by Organization Details LastModified Time None Recorded Payers Encounter Date Sequence Insurance Name Policy Number Policy Shah Covered Member ID Shah Member ID Guarantor Name 02/16/2024 1 [place] Miguel Sanchez [id number] Miguel Sanchez 02/16/2024 2 [facility] (MEDICAID) Miguel Sanchez [id number] Miguel Sanchez
--- OUTSIDE RECORDS SUMMARY | 2024-02-22 14:55 | XMS_ITS | Continuity of Care Document ---
Author Organization [facility] [place] [address] Assessment No assessment recorded. Plan of Treatment [...] None recorded. Imaging None recorded. Medication Orders permethri n 5 % topical cream 2023 024 [facility], [address], [place], [address], 02/22/2024 12:05:36 Patient TargetsNo targets recorded. Patient InstructionsNo instructions recorded. 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 CHF. 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 Punch biopsy taken today Referring Physician: Reinier Arceo [facility], Encounter Date: 01/19/2024 Results Created Date Observation Date Name Description Value Unit Range Abnormal Flag Note LastModifiedBy Organization Detail LastModifiedTime 01/27/2001/27/2024 x-ray imagi ng repor t Patien t Name: Shay Sanchez Unit #: [id number] Loc: ER Orderandra anthony [facility] er: Christo Conner M.D. Darling t #: [id number] Status : REG ER Primar [...] the addres s above. Thank- you. kwesi [facility] [address] [place], [address] 01/28/2024 07:30:23 01/28/20 24 01/28/2024 x-ray imagi ng repor t Patien t Name: Shay Sanchez Unit #: [id number] Loc: MS Lisa anthony Provid er: Devin Barreto M.D. Accoun t #: [id number] Status : ADM IN Primar y Care [facility] er: Ranjit on,Natalee gregorio Date of Exam: Sex: M Admiss [...] the addres s above. Thank- you. kwesi [facility] [address], [place], [address] 01/28/2024 14:34:24 01/28/20 24 01/28/2024 elect nelli christensen am No observ ation record ed. [email or web address] Not Available 2023 16:48:19 Result Notes None recorded. Problems Name Problem SNOMED Code Status Onset Date Resolution Date Notes Provider Name and Address Organization Details Recorded Time Type 2 diabetes mellitus without complica tion 020070239 Active 2018 Signifca nt improvem ent with behavior al changes Problem Code: E11.9; Problem Code Type: ICD-10; CESILIA MONZON MD [address], [place], [address] , [facility] 4 10:26:43 Lumbosac ral radiculo plexus neuropat hy due to type 2 diabetes mellitus 318295587 Completed 201803/26/2023 Problem Code: E11.44; Problem Code Type: ICD-10; Not Available [facility] 4 05:35:47 Polyneur opathy due to type 2 diabetes mellitus 364787772 Active 2018 Problem Code: E11.42; Problem Code Type: ICD-10; Not Available [facility] 3 04:55:33 Hyperlip idemia 60300897 Active 201810/10/19 23 - Comments only - Reinier Arceo RPA - He continue s on statin. No change made today. Problem Code: E78.5; Problem Code Type: ICD-10; Not Available [facility] 3 04:55:33 Schizoph terrence 89541548 Active 201809/11/19 22 - Comments only - Reinier Arceo RPA - Continue s to follow-u p with Dr. Rowland at [facility] . Problem Code: F20.9; Problem Code Type: ICD-10; MD [address], [place], [address] , [facility] 4 10:26:49 Recurren t major depressi on 99753373 Active 2018 Problem Code: F33.9; Problem Code Type: ICD-10; Not Available [facility] 3 04:55:34 Erectile dysfunct ion 574221250 Active 2018 Problem Code: N52.9; Problem Code Type: ICD-10; Not Available [facility] 3 04:55:34 [facility] l hyperten ottoniel 12455002 Active 2018 Problem Code: I10; Problem Code Type: ICD-10; MD [address], [place], [address] , [facility] 4 10:26:53 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 23280347918 9100 Active 201801/30/20 23 - Comments only - Reinier Arceo ROSEMARY - Acute flare necessit [facility] ization thought to be secondar y to obstruct chelsy uropathy Problem Code: I50.42; Problem Code Type: ICD-10; MD [address], [place], [address] , [facility] 4 10:26:36 Panic disorder 096093848 Active 2018 Problem Code: F41.0; Problem Code Type: ICD-10; Not Available [facility] 3 04:55:35 Counseli ng Completed 201803/25/2019 Problem Code: Z71.89; Problem Code Type: ICD-10; Not Available [facility] 3 04:55:35 Adult health examinat ion Active 2019 Problem Code: Z00.00; Problem Code Type: ICD-10; CESILIA MONZON MD [address], [place], [address] , [facility] 4 10:26:39 Viral screenin g Completed 201909/16/2019 Problem Code: Z11.59; Problem Code Type: ICD-10; Not Available [facility] 3 04:55:35 Onychomy cosis due to dermatop hyte 326504517 Active 202104/22/20 22 - Comments only - Reinier Arceo RPA - His toenails were clipped today. Problem Code: B35.1; Problem Code Type: ICD-10; Not Available [facility] 3 04:55:35 Acute kidney injury 18507374 Active 202201/30/20 23 - Comments only - Reinier Arceo RPA - 01/2023 hospital ization. Cr 5.71. Thought to be secondar y to obstruct chelsy uropathy superimp osed on cardiore nal physiolo gy. Problem Code: N17.9; Problem Code Type: ICD-10; Not Available [facility] 3 04:55:36 Acne vulgaris 96731281 Completed 201910/19/2019 Problem Code: L70.0; Problem Code Type: ICD-10; Not Available [facility] 3 04:55:36 Major depressi on, single episode 58384369 Completed 201803/17/2019 Problem Code: F32.9; Problem Code Type: ICD-10; Not Available [facility] 3 04:55:36 Neuropat hy due to type 2 diabetes mellitus 37432307680 9106 Completed 201803/17/2019 Problem Code: E11.40; Problem Code Type: ICD-10; Not Available [facility] 3 04:55:36 Diabetes mellitus 41401806 Completed 201803/17/2019 Problem Code: E13.9; Problem Code Type: ICD-10; Not Available [facility] 3 04:55:36 Dyspnea 911958079 Completed 202201/29/2023 Problem Code: R06.02; Problem Code Type: ICD-10; Not Available [facility] 3 04:55:36 Severe obesity 51651645967 104 Completed 201803/24/2023 Problem Code: E66.01; Problem Code Type: ICD-10; Not Available [facility] 3 04:55:37 Pneumoni a 132970075 Completed 201909/01/2019 Problem Code: J18.9; Problem Code Type: ICD-10; Not Available [facility] 3 04:55:37 Heart failure 89328659 Completed 201803/17/2019 Problem Code: I50.9; Problem Code Type: ICD-10; Not Available [facility] 3 04:55:37 Onychomy cosis due to dermatop hyte 033033101 Completed 201803/17/2019 Problem Code: B35.1; Problem Code Type: ICD-10; Not Available [facility] 3 04:55:37 Insomnia 950233006 Completed 201803/17/2019 Problem Code: G47.00; Problem Code Type: ICD-10; Not Available [facility] 3 04:55:37 Orthopne a 13230835 Completed 201803/17/2019 Problem Code: R06.01; Problem Code Type: ICD-10; Not Available [facility] 3 04:55:37 Nonulcer dyspepsi a 9361772 Completed 201803/17/2019 Problem Code: K30; Problem Code Type: ICD-10; Not Available [facility] 3 04:55:38 Chest pain 17049205 Completed 201910/19/2019 Problem Code: R07.89; Problem Code Type: ICD-10; Not Available [facility] 3 04:55:38 Dyspnea 904296527 Completed 201910/19/2019 Problem Code: R06.09; Problem Code Type: ICD-10; Not Available [facility] 3 04:55:38 Mixed hyperlip idemia 665789849 Completed 201803/17/2019 Problem Code: E78.2; Problem Code Type: ICD-10; Not Available [facility] 3 04:55:38 Diarrhea 79754175 Completed 201910/19/2019 Problem Code: R19.7; Problem Code Type: ICD-10; Not Available [facility] 3 04:55:38 HIV screenin g Completed 201910/19/2019 Problem Code: Z11.4; Problem Code Type: ICD-10; Not Available [facility] 3 04:55:38 Localize d eruption of skin 449658240 Completed 201803/17/2019 Problem Code: R21; Problem Code Type: ICD-10; Not Available [facility] 3 04:55:39 Urinary tract infectio us disease 77987061 Completed 202203/25/2023 Problem Code: N39.0; Problem Code Type: ICD-10; Not Available [facility] 4 05:35:44 Constipa tion 14290981 Completed 202204/17/2023 Problem Code: K59.00; Problem Code Type: ICD-10; Not Available [facility] 4 05:35:44 Contact dermatit is 84628498 Completed 202204/17/2023 Problem Code: L25.9; Problem Code Type: ICD-10; Not Available [facility] 4 05:35:44 Bursitis of elbow 231566130 Completed 202205/24/2023 Problem Code: M70.32; Problem Code Type: ICD-10; Not Available [facility] 4 05:35:44 Visual disturba nce 74525628 Completed 202205/24/2023 Problem Code: H53.9; Problem Code Type: ICD-10; Not Available [facility] 4 05:35:44 Foot pain 80708145 Completed 202205/24/2023 Problem Code: M79.673; Problem Code Type: ICD-10; Not Available [facility] 4 05:35:44 Asthenia 17633119 Completed 202205/24/2023 Problem Code: R53.1; Problem Code Type: ICD-10; Not Available [facility] 4 05:35:45 Urinary tract infectio us disease 29505454 Completed 202205/28/2023 Problem Code: N39.0; Problem Code Type: ICD-10; Not Available [facility] 4 05:35:45 Abnormal urine 126581305 Completed 202203/26/2023 Problem Code: R82.998; Problem Code Type: ICD-10; Not Available [facility] 4 05:35:46 [place] - lesion 866828927 Completed 202003/26/2023 Problem Code: L84; Problem Code Type: ICD-10; Not Available [facility] 4 05:35:46 Spontane ous ecchymos is 445660803 Completed 202203/26/2023 Problem Code: R23.3; Problem Code Type: ICD-10; Not Available [facility] 4 05:35:47 Disorder of eye region 473481485 Completed 201803/26/2023 Problem Code: H57.9; Problem Code Type: ICD-10; Not Available [facility] 4 05:35:47 Screenin g for disorder Completed 202203/26/2023 Problem Code: Z13.9; Problem Code Type: ICD-10; Not Available [facility] 4 05:35:48 Anemia 486661568 Active [address], [place], [address] , [facility]. 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 Starting dupixent . 01/[address], [place], [address] , [facility] 4 12:05:14 Not for resuscit ation 624597638 Active [address], [facility] [address] , [facility] 4 13:10:20 Skin ulcer 60841787 Active [address], [facility] [address] , [facility] 13:28:26 Problem Notes None recorded. Procedures Surgical History Date Name Laterality Status Provider Name and Address Organization Details Recorded Time 01/19/2024 Punch Biopsy completed [address], [facility] [address], [facility] 01/19/2024 16:09:17 Imaging Results None recorded. Procedure [...] every day by oral route. 02/21 completed [facility] Not Available Not Available Not Available [...] a day by oral route. 2023 active [facility] Not Available Not Available Not Available [...] Updated DateTime 4 168.02 cm 27.3 kg/m2 41917.7 g 98.2 [degF] 100 % 100 % 15 /min 87 /min 108 mm[Hg] 58 mm[Hg] MAI DUNCAN RN PA - [facility]. 4 14:06:03 Social History Question Answer Notes LastModified by Organizat ion Details LastModified Time Tobacco Smoking Status Never Smoker VISH LEMA RN [facility], [place] - [facility] 06/30/2023 14:09:46 What Was The Date [...] Td(adult) unspecified formulation 06/28/2000 completed Not Available [facility] 05/07/2023 06:30:20 Influenza, split virus, quadrivalent, PF 09/01/2019 completed Not Available [facility] 05/07/2023 06:30:20 Influenza, high-dose, quadrivalent, PF 07/04/2020 completed Not Available [facility] 05/07/2023 06:30:20 Influenza, high-dose, quadrivalent, PF 03/26/2021 completed Not Available [facility] 05/07/2023 06:30:20 Influenza, high-dose, quadrivalent, PF 04/22/2022 completed Not Available [facility] 05/07/2023 06:30:20 COVID-19, mRNA, LNP-S, PF, 100 mcg/0.5mL dose or 50 mcg/0.25mL dose 09/10/2021 completed Not Available [facility] 05/07/2023 06:30:20 COVID-19 vaccine, vector-nr, rS-Ad26, PF, 0.5 mL 11/13/2020 completed Not Available [facility] 05/07/2023 06:30:21 COVID-19, mRNA, LNP-S, bivalent, PF, 30 mcg/0.3 mL dose 04/22/2022 completed Not Available [facility] 05/07/20 06:30:21 pneumococcal polysaccharide PPV23 06/28/2000 completed Not Available [facility] 2022 06:30:21 pneumococcal polysaccharide PPV23 08/14/2020 completed Not Available [facility] 2022 06:30:21 Influenza, high-dose, quadrivalent, PF 03/26/2023 completed Not Available [facility] 07/09/2023 05:31:28 Past Encounters Encounter ID Performer Location Encounter Start Date Encounter Closed Date Diagnosis/Indication Diagnosis SNOMED-CT Code [id number] REINIER ARCEO PA-C [facility] [address] [place] [address] 01/19/2024 13:20:35 01/19/2024 14:19:23 Chronic combined systolic and diastolic heart failure 85724610810327 0 Renal insufficiency 7231 85734 Anemia 631040827 Atopic dermatitis 734739 01 [id number] Claudia Saini MA [address] [place] [address] 01/21/2024 13:41:27 01/21/2024 15:14:55 [id number] CESILIA MONZON MD [address] [place] [address] 01/22/2024 09:25:33 01/22/2024 10:49:03 Chronic dermatitis 70884179 [id number] [place] [address] [place] [address] 01/24/2024 09:15:18 01/24/2024 10:29:09 Chronic dermatitis 03872500 [id number] REINIER ARCEO PA-C [facility] [address] [place] [address] 01/27/2024 14:48:47 01/27/2024 15:21:58 Chronic combined systolic and diastolic heart failure 04458123235062 0 Chronic dermatitis 28864 955 [id number] REINIER ARCEO PA-C [facility] [address] [place] [address] 02/08/2024 13:52:15 02/08/2024 14:31:56 Chronic combined systolic and diastolic heart failure 66347526659381 0 Chronic dermatitis 15015 007 Type 2 shannon betes mellitus without complication 378726647 Renal insufficiency 7231 40228 Anemia 962399553 Health Concerns Section Related Observation LastModified by Organization Calin ls LastModified Time None Recorded Concern Status LastModified by Organization Details LastModified Time None Recorded Payers Encounter Date Sequence Insurance Name Policy Number Policy Shah Covered Member ID Shah Member ID Guarantor Name 02/08/2024 1 [employer] (MEDICARE) Miguel Sanchez [id number] Miguel Sanchez 02/08/2024 2 [facility] (MEDICAID) Miguel Sanchez [id number] Miguel Sanchez Notes Date Note Type Note Provider Name and Address Organization Details Recorded Time 02/08/2024 text/html HPI Notes: Miguel is here [...] he only has 6 months to live[address], [place], [address], [facility]. 02/08/2024 15:02:48
--- OUTSIDE RECORDS SUMMARY | 2024-02-22 14:55 | XMS_ITS | Continuity of Care Document ---
Author Organization [place] [facility] [employer] [facility], Health System Address [address] [place] [address] Assessment No assessment recorded. Plan of Treatment [...] None recorded. Imaging None recorded. Medication Orders prednison e 20 mg tablet 2023 024 [email or web address] [facility] [address], [place], [address], 02/22/2024 12:05:49 Patient TargetsNo targets recorded. Patient InstructionsNo instructions recorded. 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 CHF. 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 Punch biopsy taken today Referring Physician: Reinier Arceo [facility], Encounter Date: 01/19/2024 Results Created Date Observation Date Name Description Value Unit Range Abnormal Flag Note LastModifiedBy Organization Detail LastModifiedTime 01/27/2001/27/2024 x-ray imagi ng repor t Patiilan t Name: Shay Sanchez Unit #: [id number] Loc: ER Lisa anthony [facility] er: Christo Conner M.D. Accherminio t #: [id number] Status : REG ER Primar [...] this report in error, please notify us immjackson haque at and return the origin al report to us at the addres s above. Thank- you. kwesi [facility] [address] [place], [address] 01/28/2024 07:30:23 01/28/20 24 01/28/2024 x-ray imagi ng repor t Patien t Name: Shay Sanchez Unit #: [id number] Loc: MS Gonzalez ng Provid er: Devin Barreto M.D. Accoun t #: [id number] Status : ADM IN Primar y [...] ------ ------ - Dictat ed By: Anjelica Salavdor [id number] Transc ribed By: Kevin Cleaning [...] Thank- you. kwesi [facility] [address], [place], [address] 01/28/2024 14:34:24 01/28/20 24 01/28/2024 elect nelli christensen am No observ ation record ed. [email or web address] Not Available 2023 16:48:19 Result Notes None recorded. Problems Name Problem SNOMED Code Status Onset Date Resolution Date Notes Provider Name and Address Organization Details Recorded Time Type 2 diabetes mellitus without complica tion 299207680 Active 2018 Signifca nt improvem ent with behavior al changes Problem Code: E11.9; Problem Code Type: ICD-10; MD [address], [place], [address] , [facility] 4 10:26:43 Lumbosac ral radiculo plexus neuropat hy due to type 2 diabetes mellitus 733011716 Completed 201803/26/2023 Problem Code: E11.44; Problem Code Type: ICD-10; Not Available [facility] 4 05:35:47 Polyneur opathy due to type 2 diabetes mellitus 159940472 Active 2018 Problem Code: E11.42; Problem Code Type: ICD-10; Not Available [facility] 3 04:55:33 Hyperlip idemia 78296615 Active 201810/10/19 23 - Comments only - Reinier Arceo [facility] - He continue s on statin. No change made today. Problem Code: E78.5; Problem Code Type: ICD-10; Not Available [facility] 3 04:55:33 Schizoph terrence 81265447 Active 201809/11/19 22 - Comments only - Reinier Arceo ROSEMARY - Continue s to follow-u p with Dr. Rowland at [facility] . Problem Code: F20.9; Problem Code Type: ICD-10; MD [address], [place], [address] , [facility] 4 10:26:49 Recurren t major depressi on 34258041 Active 2018 Problem Code: F33.9; Problem Code Type: ICD-10; Not Available [facility] 3 04:55:34 Erectile dysfunct ion 528132583 Active 2018 Problem Code: N52.9; Problem Code Type: ICD-10; Not Available [facility] 3 04:55:34 [facility]entia l hyperten ottoniel 12432865 Active 2018 Problem Code: I10; Problem Code Type: ICD-10; MD [address], [place] [address] , [facility] 4 10:26:53 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 04131782893 9100 Active 201801/30/20 23 - Comments only - Reinier Arceo ROSEMARY - Acute flare necessit [facility] ization thought to be secondar y to obstruct chelsy uropathy Problem Code: I50.42; Problem Code Type: ICD-10; MD [address], [place], [address] , [facility] 4 10:26:36 Panic disorder 267295113 Active 2018 Problem Code: F41.0; Problem Code Type: ICD-10; Not Available [facility] 3 04:55:35 Counseli ng Completed 201803/25/2019 Problem Code: Z71.89; Problem Code Type: ICD-10; Not Available [facility] 3 04:55:35 Adult health examinat ion Active 2019 Problem Code: Z00.00; Problem Code Type: ICD-10; CESILIA MONZON MD [address], [place], [address] , [facility] 4 10:26:39 Viral screenin g Completed 201909/16/2019 Problem Code: Z11.59; Problem Code Type: ICD-10; Not Available [facility] 3 04:55:35 Onychomy cosis due to dermatop hyte 070969749 Active 202104/22/20 - Comments only - Reinier Arceo RPA - His toenails were clipped today. Problem Code: B35.1; Problem Code Type: ICD-10; Not Available [facility] 3 04:55:35 Acute kidney injury 10804992 Active 202201/30/20 - Comments only - Reinier Arceo RPA - 01/2023 hospital ization. Cr 5.71. Thought to be secondar y to obstruct chelsy uropathy superimp osed on cardiore nal physiolo gy. Problem Code: N17.9; Problem Code Type: ICD-10; Not Available [facility] 3 04:55:36 Acne vulgaris 56498820 Completed 201910/19/2019 Problem Code: L70.0; Problem Code Type: ICD-10; Not Available [facility] 3 04:55:36 Major depressi on, single episode 21769072 Completed 201803/17/2019 Problem Code: F32.9; Problem Code Type: ICD-10; Not Available [facility] 3 04:55:36 Neuropat hy due to type 2 diabetes mellitus 76602246643 9106 Completed 201803/17/2019 Problem Code: E11.40; Problem Code Type: ICD-10; Not Available [facility] 3 04:55:36 Diabetes mellitus 41728390 Completed 201803/17/2019 Problem Code: E13.9; Problem Code Type: ICD-10; Not Available [facility] 3 04:55:36 Dyspnea 433125813 Completed 202201/29/2023 Problem Code: R06.02; Problem Code Type: ICD-10; Not Available [facility] 3 04:55:36 Severe obesity 90168029456 104 Completed 201803/24/2023 Problem Code: E66.01; Problem Code Type: ICD-10; Not Available [facility] 3 04:55:37 Pneumoni a 774468005 Completed 201909/01/2019 Problem Code: J18.9; Problem Code Type: ICD-10; Not Available [facility] 3 04:55:37 Heart failure 10839376 Completed 201803/17/2019 Problem Code: I50.9; Problem Code Type: ICD-10; Not Available [facility] 3 04:55:37 Onychomy cosis due to dermatop hyte 841376391 Completed 201803/17/2019 Problem Code: B35.1; Problem Code Type: ICD-10; Not Available [facility] 3 04:55:37 Insomnia 560025837 Completed 201803/17/2019 Problem Code: G47.00; Problem Code Type: ICD-10; Not Available [facility] 3 04:55:37 Orthopne a 66980136 Completed 201803/17/2019 Problem Code: R06.01; Problem Code Type: ICD-10; Not Available [facility] 3 04:55:37 Nonulcer dyspepsi a 4402110 Completed 201803/17/2019 Problem Code: K30; Problem Code Type: ICD-10; Not Available [facility] 3 04:55:38 Chest pain 32873869 Completed 201910/19/2019 Problem Code: R07.89; Problem Code Type: ICD-10; Not Available [facility] 3 04:55:38 Dyspnea 401936303 Completed 201910/19/2019 Problem Code: R06.09; Problem Code Type: ICD-10; Not Available [facility] 3 04:55:38 Mixed hyperlip idemia 577891879 Completed 201803/17/2019 Problem Code: E78.2; Problem Code Type: ICD-10; Not Available [facility] 3 04:55:38 Diarrhea 57090944 Completed 201910/19/2019 Problem Code: R19.7; Problem Code Type: ICD-10; Not Available [facility] 3 04:55:38 HIV screenin g Completed 201910/19/2019 Problem Code: Z11.4; Problem Code Type: ICD-10; Not Available [facility] 3 04:55:38 Localize d eruption of skin 042852065 Completed 201803/17/2019 Problem Code: R21; Problem Code Type: ICD-10; Not Available [facility] 3 04:55:39 Urinary tract infectio us disease 84637765 Completed 202203/25/2023 Problem Code: N39.0; Problem Code Type: ICD-10; Not Available [facility] 4 05:35:44 Constipa tion 45340471 Completed 202204/17/2023 Problem Code: K59.00; Problem Code Type: ICD-10; Not Available [facility] 4 05:35:44 Contact dermatit is 34127660 Completed 202204/17/2023 Problem Code: L25.9; Problem Code Type: ICD-10; Not Available [facility] 4 05:35:44 Bursitis of elbow 355893034 Completed 202205/24/2023 Problem Code: M70.32; Problem Code Type: ICD-10; Not Available [facility] 4 05:35:44 Visual disturba nce 30145933 Completed 202205/24/2023 Problem Code: H53.9; Problem Code Type: ICD-10; Not Available [facility] 4 05:35:44 Foot pain 77978734 Completed 202205/24/2023 Problem Code: M79.673; Problem Code Type: ICD-10; Not Available [facility] 4 05:35:44 Asthenia 89039489 Completed 202205/24/2023 Problem Code: R53.1; Problem Code Type: ICD-10; Not Available [facility] 4 05:35:45 Urinary tract infectio us disease 45320186 Completed 202205/28/2023 Problem Code: N39.0; Problem Code Type: ICD-10; Not Available [facility] 4 05:35:45 Abnormal urine 299408605 Completed 202203/26/2023 Problem Code: R82.998; Problem Code Type: ICD-10; Not Available [facility] 4 05:35:46 [place] - lesion 987940823 Completed 202003/26/2023 Problem Code: L84; Problem Code Type: ICD-10; Not Available [facility] 4 05:35:46 Spontane ous ecchymos is 237650355 Completed 202203/26/2023 Problem Code: R23.3; Problem Code Type: ICD-10; Not Available [facility] 4 05:35:47 Disorder of eye region 819638846 Completed 201803/26/2023 Problem Code: H57.9; Problem Code Type: ICD-10; Not Available [facility] 4 05:35:47 Screenin g for disorder Completed 202203/26/2023 Problem Code: Z13.9; Problem Code Type: ICD-10; Not Available [facility] 4 05:35:48 Anemia 246352767 Active [address], [place], [address] , [facility]. 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 Starting dupixent . 01/[address], [place], [address] , [facility] 4 12:05:14 Not for resuscit ation 644319059 Active [address], [place], [address] , [facility] 4 13:10:20 Skin ulcer 08452722 Active [address], [facility] [address] , [facility] 4 13:28:26 Problem Notes None recorded. Procedures Surgical History Date Name Laterality Status Provider Name and Address Organization Details Recorded Time 01/19/2024 Punch Biopsy completed [address], [place], [address], [facility] 01/19/2024 16:09:17 Imaging Results None recorded. [...] every day by oral route. 02/21 completed [facility] Derm Not Available Not Available Not Available [...] a day by oral route. 2023 active [facility] derm Not Available Not Available Not Available [...] Updated DateTime 4 168.02 cm 28 kg/m2 78608.0 7 g 96.7 [degF] 99 % 99 % 74 /min 16 /min 104 mm[Hg] 69 mm[Hg] Tracey Oliva [facility]. 4 10:00:30 Social History Question Answer Notes LastModified by Organizat ion Details LastModified Time Tobacco Smoking Status Never Smoker VISH LEMA RN [facility], [place] [facility] 06/30/2023 14:09:46 What Was The Date [...] Td(adult) unspecified formulation 06/28/2000 completed Not Available [facility] 05/07/2023 06:30:20 Influenza, split virus, quadrivalent, PF 09/01/2019 completed Not Available [facility] 05/07/2023 06:30:20 Influenza, high-dose, quadrivalent, PF 07/04/2020 completed Not Available [facility] 05/07/2023 06:30:20 Influenza, high-dose, quadrivalent, PF 03/26/2021 completed Not Available [facility] 05/07/2023 06:30:20 Influenza, high-dose, quadrivalent, PF 04/22/2022 completed Not Available [facility] 05/07/2023 06:30:20 COVID-19, mRNA, LNP-S, PF, 100 mcg/0.5mL dose or 50 mcg/0.25mL dose 09/10/2021 completed Not Available [facility] 05/07/2023 06:30:20 COVID-19 vaccine, vector-nr, rS-Ad26, PF, 0.5 mL 11/13/2020 completed Not Available [facility] 05/07/2023 06:30:21 COVID-19, mRNA, LNP-S, bivalent, PF, 30 mcg/0.3 mL dose 04/22/2022 completed Not Available [facility] 05/07/20 06:30:21 pneumococcal polysaccharide PPV23 06/28/2000 completed Not Available [facility] 2022 06:30:21 pneumococcal polysaccharide PPV23 08/14/2020 completed Not Available [facility] 2022 06:30:21 Influenza, high-dose, quadrivalent, PF 03/26/2023 completed Not Available [facility] 07/09/2023 05:31:28 Past Encounters Encounter ID Performer Location Encounter Start Date Encounter Closed Date Diagnosis/Indication Diagnosis SNOMED-CT Code [id number] REINIER ARCEO PA-C [facility] [address] [place] [address] 12/24/2023 10:09:36 12/24/2023 10:50:40 Pruritic disorder 729419061 Type 2 shannon betes mellitus without complication 813795625 Anemia 075593225 [id number] REINIER ARCEO PA-C [facility] [address] [place] [facility] [place] [address] 01/19/2024 13:20:35 01/19/2024 14:19:23 Chronic combined systolic and diastolic heart failure 35900525456988 0 Renal insufficiency 7231 89594 Anemia 631514685 Atopic dermatitis 800741 01 [id number] Claudia Saini MA [address],[facility] [address] [place] [address] 01/21/2024 13:41:27 01/21/2024 15:14:55 [id number] CESILIA MONZON MD [address],[facility] [address] [place] [address] 01/22/2024 09:25:33 01/22/2024 10:49:03 Chronic dermatitis 27340672 Health Concerns Section Related Observation LastModified by Organization Detai ls LastModified Time None Recorded Concern Status LastModified by Organization Details LastModified Time None Recorded Payers Encounter Date Sequence Insurance Name Policy Number Policy Shah Covered Member ID Shah Member ID Guarantor Name 01/22/2024 1 [employer] (MEDICARE) Miguel Sanchez [id number] Miguel Sanchez 01/22/2024 2 [facility] (MEDICAID) Miguel Sanchez [id number] Miguel Sanchez Notes Date Note Type Note Provider Name and Address Organization Details Recorded Time 01/22/2024 text/html HPI Notes: Susannah nt here out of frustration from a chronic dermatitis has been suffering from for many months. Had a biopsy done just last week, results not back yet. Was given prescription 2 days ago for prednisone, unfortunately does not have the means to get to the local pharmacy. Comes in today because itching is making quite miserable. Reviewing his record there is no apparent cause for this. Has been treated with orals for potential scabies. No obvious cause. No new medications that fit in terms of the time.. He states his ears feel a bit full and itchy. A couple of spots on his forearms he has a scratch that has open skin. No respiratory symptoms include dyspnea or swelling. No GI symptoms. No chest pain. CESILIA MNOZON MD [address], [place], [address], [facility]. 01/22/2024 10:49:16
--- OUTSIDE RECORDS SUMMARY | 2024-02-22 14:55 | XMS_ITS | Continuity of Care Document ---
Author Organization [place] [facility], [facility] Address [address] [place] [address] Assessment No assessment recorded. Plan of Treatment [...] e 10 mg tablet 2023 024 [place] [place], [address], 02/11/2024 12:37:43 Children' s Zyrtec Allergy 1 mg/mL oral solution 2023 024 [email or web address] [facility], [address] [place], [address], 01/27/2024 15:15:23 Patient TargetsNo targets recorded. Patient Instructions Encounter Date Encounter Id Patient Instructions Last Modified By Organization Details Last Modified Time 01/24/2024 [id number] Today, we can ad d a low dose cetirizine (a daily antihistamine) to your prednisone and creams, as well as local skin care. (cool showers, cool washcloths to itching areas, use of non-scented emollient lotions). Keep your fingernail very short, and wear gloves or mittens to bed to prevent further scratching. [facility] may take up to 7-10 business days to receive the referral sent by your primary care office on 01/19/24. You can contact them directly at [phone] to get an appointment on the books for February 2024 at the earliest, and they can hopefully prioritize the visit to a more semi-urgent referral upon receiving notes from Reinier Arceo's office to get you in earlier. For now, the most symptom improvement you will get will likely be by taking the prednisone that has been prescribed and will be delivered today from [employer] 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 CHF. 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 Punch biopsy taken today Referring Physician: Reinier Arceo [facility], Encounter Date: 01/19/2024 Results Created Date Observation Date Name Description Value Unit Range Abnormal Flag Note LastModifiedBy Organization Detail LastModifiedTime 01/27/2001/27/2024 x-ray imagi ng repor t Patiilan t Name: Shay Adam Unit #: [id number] Loc: ER Orderi ng Provid er: Christo Conner M.D. t #: [id number] Status : REG ER Primar y Care Provid er: Natalee Clark gregroio Date of Exam: Sex: M Admiss ion [...] the addres s above. Thank- you. kwesi [facility] [address] [place], [address] 01/28/2024 07:30:23 01/28/2001/28/2024 x-ray imagi ng repor t Patien t Name: Shay Adam Unit #: [id number] Loc: Orderandra ng Provid er: Devin Barreto M.D. Accoun t #: [id number] Status : ADM IN Primar y [...] the addres s above. Thank- you. kwesi [facility] [address], [place], [address] 01/28/2024 14:34:24 01/28/20 24 01/28/2024 elect nelli christensen am No observ ation record ed. [email or web address] Not Available 2023 16:48:19 Result Notes None recorded. Problems Name Problem SNOMED Code Status Onset Date Resolution Date Notes Provider Name and Address Organization Details Recorded Time Type 2 diabetes mellitus without complica tion 920741250 Active 2018 Signifca nt improvem ent with behavior al changes Problem Code: E11.9; Problem Code Type: ICD-10; MD [address], [place], [address] , [facility] 4 10:26:43 Lumbosac ral radiculo plexus neuropat hy due to type 2 diabetes mellitus 988771317 Completed 201803/26/2023 Problem Code: E11.44; Problem Code Type: ICD-10; Not Available [facility] 4 05:35:47 Polyneur opathy due to type 2 diabetes mellitus 566584201 Active 2018 Problem Code: E11.42; Problem Code Type: ICD-10; Not Available [facility] 3 04:55:33 Hyperlip idemia 79176649 Active 201810/10/19 23 - Comments only - Reinier Arceo RPA - He continue s on statin. No change made today. Problem Code: E78.5; Problem Code Type: ICD-10; Not Available [facility] 3 04:55:33 Schizoph terrence 23778312 Active 201809/11/19 22 - Comments only - Reinier Arceo RPA - Continue s to follow-u p with Dr. Rowland at [facility] . Problem Code: F20.9; Problem Code Type: ICD-10; MD [address], [place], [address] , [facility] 4 10:26:49 Recurren t major depressi on 80009906 Active 2018 Problem Code: F33.9; Problem Code Type: ICD-10; Not Available [facility] 3 04:55:34 Erectile dysfunct ion 115157274 Active 2018 Problem Code: N52.9; Problem Code Type: ICD-10; Not Available [facility] 3 04:55:34 Beltran shawen ottoniel 76543453 Active 2018 Problem Code: I10; Problem Code Type: ICD-10; MD [address], [facility] [address] , [facility] 4 10:26:53 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 04861413387 9100 Active 201801/30/20 23 - Comments only - Reinier Arceo RPA - Acute flare necessit [facility] ization thought to be secondar y to obstruct chelsy uropathy Problem Code: I50.42; Problem Code Type: ICD-10; MD [address], [facility] [address] , [facility], [facility] 4 10:26:36 Panic disorder 913467139 Active 2018 Problem Code: F41.0; Problem Code Type: ICD-10; Not Available [facility] 3 04:55:35 Counseli ng Completed 201803/25/2019 Problem Code: Z71.89; Problem Code Type: ICD-10; Not Available [facility] 3 04:55:35 Adult health examinat ion Active 2019 Problem Code: Z00.00; Problem Code Type: ICD-10; MD [address], [place], [address] , [facility] 4 10:26:39 Viral screenin g Completed 201909/16/2019 Problem Code: Z11.59; Problem Code Type: ICD-10; Not Available [facility] 3 04:55:35 Onychomy cosis due to dermatop hyte 985139690 Active 202104/22/20 22 - Comments only - Reinier Arceo RPA - His toenails were clipped today. Problem Code: B35.1; Problem Code Type: ICD-10; Not Available [facility] 3 04:55:35 Acute kidney injury 01537224 Active 202201/30/20 - Comments only - Reinier Arceo RPA - 01/2023 hospital ization. Cr 5.71. Thought to be secondar y to obstruct chelsy uropathy superimp osed on cardiore nal physiolo gy. Problem Code: N17.9; Problem Code Type: ICD-10; Not Available [facility] 3 04:55:36 Acne vulgaris 46855577 Completed 201910/19/2019 Problem Code: L70.0; Problem Code Type: ICD-10; Not Available [facility] 3 04:55:36 Major depressi on, single episode 34655711 Completed 201803/17/2019 Problem Code: F32.9; Problem Code Type: ICD-10; Not Available [facility] 3 04:55:36 Neuropat hy due to type 2 diabetes mellitus 29927653890 9106 Completed 201803/17/2019 Problem Code: E11.40; Problem Code Type: ICD-10; Not Available [facility] 3 04:55:36 Diabetes mellitus 36634424 Completed 201803/17/2019 Problem Code: E13.9; Problem Code Type: ICD-10; Not Available [facility] 3 04:55:36 Dyspnea 209079251 Completed 202201/29/2023 Problem Code: R06.02; Problem Code Type: ICD-10; Not Available [facility] 3 04:55:36 Severe obesity 34299798866 104 Completed 201803/24/2023 Problem Code: E66.01; Problem Code Type: ICD-10; Not Available [facility] 3 04:55:37 Pneumoni a 664548091 Completed 201909/01/2019 Problem Code: J18.9; Problem Code Type: ICD-10; Not Available [facility] 3 04:55:37 Heart failure 38178301 Completed 201803/17/2019 Problem Code: I50.9; Problem Code Type: ICD-10; Not Available [facility] 3 04:55:37 Onychomy cosis due to dermatop hyte 427742477 Completed 201803/17/2019 Problem Code: B35.1; Problem Code Type: ICD-10; Not Available [facility] 3 04:55:37 Insomnia 315460347 Completed 201803/17/2019 Problem Code: G47.00; Problem Code Type: ICD-10; Not Available [facility] 3 04:55:37 Orthopne a 74494666 Completed 201803/17/2019 Problem Code: R06.01; Problem Code Type: ICD-10; Not Available [facility] 3 04:55:37 Nonulcer dyspepsi a 9233715 Completed 201803/17/2019 Problem Code: K30; Problem Code Type: ICD-10; Not Available [facility] 3 04:55:38 Chest pain 71348780 Completed 201910/19/2019 Problem Code: R07.89; Problem Code Type: ICD-10; Not Available [facility] 3 04:55:38 Dyspnea 466021863 Completed 201910/19/2019 Problem Code: R06.09; Problem Code Type: ICD-10; Not Available [facility] 3 04:55:38 Mixed hyperlip idemia 908592338 Completed 201803/17/2019 Problem Code: E78.2; Problem Code Type: ICD-10; Not Available [facility] 3 04:55:38 Diarrhea 75395000 Completed 201910/19/2019 Problem Code: R19.7; Problem Code Type: ICD-10; Not Available [facility] 3 04:55:38 HIV screenin g Completed 201910/19/2019 Problem Code: Z11.4; Problem Code Type: ICD-10; Not Available [facility] 3 04:55:38 Localize d eruption of skin 595162717 Completed 201803/17/2019 Problem Code: R21; Problem Code Type: ICD-10; Not Available [facility] 3 04:55:39 Urinary tract infectio us disease 98492321 Completed 202203/25/2023 Problem Code: N39.0; Problem Code Type: ICD-10; Not Available [facility] 4 05:35:44 Constipa tion 39305209 Completed 202204/17/2023 Problem Code: K59.00; Problem Code Type: ICD-10; Not Available [facility] 4 05:35:44 Contact dermatit is 93476212 Completed 202204/17/2023 Problem Code: L25.9; Problem Code Type: ICD-10; Not Available [facility] 4 05:35:44 Bursitis of elbow 871276876 Completed 202205/24/2023 Problem Code: M70.32; Problem Code Type: ICD-10; Not Available [facility] 4 05:35:44 Visual disturba nce 82326297 Completed 202205/24/2023 Problem Code: H53.9; Problem Code Type: ICD-10; Not Available [facility] 4 05:35:44 Foot pain 77371708 Completed 202205/24/2023 Problem Code: M79.673; Problem Code Type: ICD-10; Not Available [facility] 4 05:35:44 Asthenia 06526636 Completed 202205/24/2023 Problem Code: R53.1; Problem Code Type: ICD-10; Not Available [facility] 4 05:35:45 Urinary tract infectio us disease 77076874 Completed 202205/28/2023 Problem Code: N39.0; Problem Code Type: ICD-10; Not Available [facility] 4 05:35:45 Abnormal urine 774547023 Completed 202203/26/2023 Problem Code: R82.998; Problem Code Type: ICD-10; Not Available [facility] 4 05:35:46 [place] - lesion 561795762 Completed 202003/26/2023 Problem Code: L84; Problem Code Type: ICD-10; Not Available [facility] 4 05:35:46 Spontane ous ecchymos is 250754797 Completed 202203/26/2023 Problem Code: R23.3; Problem Code Type: ICD-10; Not Available [facility] 4 05:35:47 Disorder of eye region 416973266 Completed 201803/26/2023 Problem Code: H57.9; Problem Code Type: ICD-10; Not Available [facility] 4 05:35:47 Screenin g for disorder Completed 202203/26/2023 Problem Code: Z13.9; Problem Code Type: ICD-10; Not Available [facility] 4 05:35:48 Anemia 486748547 Active 2023 REINIER ARCEO PA-C [address], [place], [address] , [facility] 16:07:16 Renal insuffic iency 743050343 Active [address], [place], [address] , [facility] 16:07:23 Chronic dermatit is 56433122 Active 2023 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 Starting dupixent . 01/[address], [place], [address] , [facility] 12:05:14 Not for resuscit ation 260462795 Active [address], [place], [address] , [facility] 13:10:20 Skin ulcer 19641804 Active [address], [place], [address] , [facility] 13:28:26 Problem Notes None recorded. Procedures Surgical History Date Name Laterality Status Provider Name and Address Organization Details Recorded Time 01/19/2024 Punch Biopsy completed [address], [place], [address], [facility] 01/19/2024 16:09:17 Imaging Results None recorded. [...] by oral route. 02/21 completed [facility] Not Available Not Available Not Available [...] by oral route. 2023 active [facility] Not Available Not Available Not Available [...] and Address Organization Details Last Updated DateTime 168.02 cm 28 kg/m2 44579.0 7 g 96.3 [degF] 99 % 99 % 86 /min 17 /min 118 mm[Hg] 80 mm[Hg] SANJANA ADAM MA [facility] 09:26:29 Social History Question Answer Notes LastModified by Organizat ion Details LastModified Time Tobacco Smoking Status Never Smoker VISH LEMA [facility], [facility] 06/30/2023 14:09:46 What Was The [...] Td(adult) unspecified formulation 06/28/2000 completed Not Available [facility] 05/07/2023 06:30:20 Influenza, split virus, quadrivalent, PF 09/01/2019 completed Not Available [facility] 05/07/2023 06:30:20 Influenza, high-dose, quadrivalent, PF 07/04/2020 completed Not Available [facility] 05/07/2023 06:30:20 Influenza, high-dose, quadrivalent, PF 03/26/2021 completed Not Available [facility] 05/07/2023 06:30:20 Influenza, high-dose, quadrivalent, PF 04/22/2022 completed Not Available [facility] 05/07/2023 06:30:20 COVID-19, mRNA, LNP-S, PF, 100 mcg/0.5mL dose or 50 mcg/0.25mL dose 09/10/2021 completed Not Available [facility] 05/07/2023 06:30:20 COVID-19 vaccine, vector-nr, rS-Ad26, PF, 0.5 mL 11/13/2020 completed Not Available [facility] 05/07/2023 06:30:21 COVID-19, mRNA, LNP-S, bivalent, PF, 30 mcg/0.3 mL dose 04/22/2022 completed Not Available [facility] 05/07/20 06:30:21 pneumococcal polysaccharide PPV23 06/28/2000 completed Not Available [facility] 2022 06:30:21 pneumococcal polysaccharide PPV23 08/14/2020 completed Not Available [facility] 2022 06:30:21 Influenza, high-dose, quadrivalent, PF 03/26/2023 completed Not Available [facility] 07/09/2023 05:31:28 Past Encounters Encounter ID Performer Location Encounter Start Date Encounter Closed Date Diagnosis/Indication Diagnosis SNOMED-CT Code [id number] REINIER ARCEO PA-C [address] [place] [address] 01/19/2024 13:20:35 01/19/2024 14:19:23 Chronic combined systolic and diastolic heart failure [id number] 0 Renal insufficiency 7231 58926 Anemia 373825256 Atopic dermatitis 467479 01 [id number] Claudia Saini MA [address],[facility] [address] [place] [address] 01/21/2024 13:41:27 01/21/2024 15:14:55 [id number] CESILIA MONZON MD [address] [place] [address] 01/22/2024 09:25:33 01/22/2024 10:49:03 Chronic dermatitis 60892189 [id number] URBANO WALLS [address],[facility] [address] [place] [address] 01/24/2024 09:15:18 01/24/2024 10:29:09 Chronic dermatitis 43571108 Health Concerns Section Related Observation LastModified by Organization Detai ls LastModified Time None Recorded Concern Status LastModified by Organization Details LastModified Time None Recorded Payers Encounter Date Sequence Insurance Name Policy Number Policy Shah Covered Member ID Shah Member ID Guarantor Name 01/24/2024 1 [place] Miguel Adam [id number] Miguel Adam 01/24/2024 2 [facility] (MEDICAID) Miguel Adam [id number] Miguel Adam Notes Date Note Type Note Provider Name [...] He has a dermatology referral pending at [facility] that was ordered 01/19/24, no scheduled appointment yet and has not yet been contacted. URBANO WALLS [address], [place], [address], [facility]. 01/24/2024 10:46:45
--- OUTSIDE RECORDS SUMMARY | 2024-02-22 14:55 | XMS_ITS | Continuity of Care Document ---
Author Organization [place] [facility], [facility] Address [address] [place] [address] Assessment Encounter Date Assessment Date Assessment LastModified by Organization Details LastModified Time 01/21/2024 01/21/2024 4:45pm Patient came back so we could apply a new cream that he brought in. Miguel stated the hydorcortisone was not working. The new cream was, Ammonium lactate topical Cream. After Connie reviewed this medication. I was advised to apply this to the backside, which is the area he cannot reach. 1:40pm Patient brought in hydorcortisone to have applied to areas on his body that he could not reach. Our provider Connie reviewed his office notes from his PCP, Colin Arceo from a few days prior. With the direction from Connie, I was able to apply the hydorcortisone cream to his backside. [email or web address] Not available 01/21/2024 18:31:50 Plan of Treatment Reminders Order Date Submit [...] Patient InstructionsNo instructions recorded. Reason for Referral Straight Edger Referral for ronic combined systolic and diastolic heart failure overdue for appt. CHF. 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 Punch biopsy taken today Referring Physician: Reinier Arceo [facility], Encounter Date: 01/19/2024 Results Created Date Observation Date Name Description Value Unit Range Abnormal Flag Note LastModifiedBy Organization Detail LastModifiedTime 01/27/20 24 01/27/2024 x-ray imagi ng repor t Patien t Name: Shay Sanchez Unit #: [id number] Loc: ER Orderi ng Provid er: Christo Conner M.D. Accoun t #: [id number] [id number] Status : REG ER Primar [...] the addres s above. Thank- you. kwesi [address] [place], [address] 01/28/2024 07:30:23 01/28/20 24 01/28/2024 x-ray imagi ng repor t Patien t Name: Shay Sanchez Unit #: [id number] Loc: MS Lisa anthony Provid er: Devin Barreto M.D. Accoun t #: [id number] Status : ADM IN Primar y Care [facility] er: Natalee Clark Date of Exam: Sex: [...] - Dictat ed By: Anjelica Salvador [id number] Transc ribed By: Kevin Cleaning 134 This is privil eged, confid ential inform [...] the addres s above. Thank- you. kwesi [facility] [address], [place], [address] 01/28/2024 14:34:24 01/28/20 24 01/28/2024 elect nelli christensen am No observ ation record ed. [email or web address] Not Available 2023 16:48:19 Result Notes None recorded. Problems Name Problem SNOMED Code Status Onset Date Resolution Date Notes Provider Name and Address Organization Details Recorded Time Type 2 diabetes mellitus without complica tion 282874434 Active 2018 Signifca nt improvem ent with behavior al changes Problem Code: E11.9; Problem Code Type: ICD-10; MD [address], [place], [address] , [facility]. 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 No change made today. Problem Code: E78.5; Problem Code Type: ICD-10; Not Available [facility] 3 04:55:33 Schizoph terrence 44216664 Active 201809/11/19 22 - Comments only - Reinier Arceo RPA - Continue s to follow-u p with Dr. Rowland at [facility] . Problem Code: F20.9; Problem Code Type: ICD-10; MD Brett [address], [facility] [address] , [facility] 4 10:26:49 Recurren t major depressi on 95516091 Active 2018 Problem Code: F33.9; Problem Code Type: ICD-10; Not Available [facility] 3 04:55:34 Erectile dysfunct ion 496372051 Active 2018 Problem Code: N52.9; Problem Code Type: ICD-10; Not Available [facility] 3 04:55:34 [facility] hyperten ottoniel 63113414 Active 2018 Problem Code: I10; Problem Code Type: ICD-10; MD [address], [place], [address] , [facility] 4 10:26:53 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 40341804287 9100 Active 201801/30/20 23 - Comments only - Reinier Arceo RPA - Acute flare necessit [facility] ization thought to be secondar y to obstruct chelsy uropathy Problem Code: I50.42; Problem Code Type: ICD-10; MD [address], [place], [address] , [facility] 4 10:26:36 Panic disorder 320186822 Active 2018 Problem Code: F41.0; Problem Code Type: ICD-10; Not Available [facility] 3 04:55:35 Counseli ng Completed 201803/25/2019 Problem Code: Z71.89; Problem Code Type: ICD-10; Not Available [facility] 3 04:55:35 Adult health examinat ion Active 2019 Problem Code: Z00.00; Problem Code Type: ICD-10; MD [address], [place], [address] , [facility] 4 10:26:39 Viral screenin g Completed 201909/16/2019 Problem Code: Z11.59; Problem Code Type: ICD-10; Not Available [facility] 3 04:55:35 Onychomy cosis due to dermatop hyte 292043593 Active 202104/22/20 - Comments only - Reinier Arceo [facility] - His toenails were clipped today. Problem Code: B35.1; Problem Code Type: ICD-10; Not Available [facility] 3 04:55:35 Acute kidney injury 08819650 Active 202201/30/20 - Comments only - Reinier Arceo RPA - 01/2023 hospital ization. Cr 5.71. Thought to be secondar y to obstruct chelsy uropathy superimp osed on cardiore nal physiolo gy. Problem Code: N17.9; Problem Code Type: ICD-10; Not Available [facility] 3 04:55:36 Acne vulgaris 81880270 Completed 201910/19/2019 Problem Code: L70.0; Problem Code Type: ICD-10; Not Available [facility] 3 04:55:36 Major depressi on, single episode 67595738 Completed 201803/17/2019 Problem Code: F32.9; Problem Code Type: ICD-10; Not Available [facility] 3 04:55:36 Neuropat hy due to type 2 diabetes mellitus 09607491013 9106 Completed 201803/17/2019 Problem Code: E11.40; Problem Code Type: ICD-10; Not Available [facility] 3 04:55:36 Diabetes mellitus 81898606 Completed 201803/17/2019 Problem Code: E13.9; Problem Code Type: ICD-10; Not Available [facility] 3 04:55:36 Dyspnea 803777495 Completed 202201/29/2023 Problem Code: R06.02; Problem Code Type: ICD-10; Not Available [facility] 3 04:55:36 Severe obesity 10919416491 104 Completed 201803/24/2023 Problem Code: E66.01; Problem Code Type: ICD-10; Not Available [facility] 3 04:55:37 Pneumoni a 376117165 Completed 201909/01/2019 Problem Code: J18.9; Problem Code Type: ICD-10; Not Available [facility] 3 04:55:37 Heart failure 87775776 Completed 201803/17/2019 Problem Code: I50.9; Problem Code Type: ICD-10; Not Available [facility] 3 04:55:37 Onychomy cosis due to dermatop hyte 228022544 Completed 201803/17/2019 Problem Code: B35.1; Problem Code Type: ICD-10; Not Available [facility] 3 04:55:37 Insomnia 538835160 Completed 201803/17/2019 Problem Code: G47.00; Problem Code Type: ICD-10; Not Available [facility] 3 04:55:37 Orthopne a 87876948 Completed 201803/17/2019 Problem Code: R06.01; Problem Code Type: ICD-10; Not Available [facility] 3 04:55:37 Nonulcer dyspepsi a 6652427 Completed 201803/17/2019 Problem Code: K30; Problem Code Type: ICD-10; Not Available [facility] 3 04:55:38 Chest pain 18530365 Completed 201910/19/2019 Problem Code: R07.89; Problem Code Type: ICD-10; Not Available [facility] 3 04:55:38 Dyspnea 073872436 Completed 201910/19/2019 Problem Code: R06.09; Problem Code Type: ICD-10; Not Available [facility] 3 04:55:38 Mixed hyperlip idemia 102898967 Completed 201803/17/2019 Problem Code: E78.2; Problem Code Type: ICD-10; Not Available [facility] 3 04:55:38 Diarrhea 80530114 Completed 201910/19/2019 Problem Code: R19.7; Problem Code Type: ICD-10; Not Available [facility] 3 04:55:38 HIV screenin g Completed 201910/19/2019 Problem Code: Z11.4; Problem Code Type: ICD-10; Not Available [facility] 3 04:55:38 Localize d eruption of skin 478989391 Completed 201803/17/2019 Problem Code: R21; Problem Code Type: ICD-10; Not Available [facility] 3 04:55:39 Urinary tract infectio us disease 69181949 Completed 202203/25/2023 Problem Code: N39.0; Problem Code Type: ICD-10; Not Available [facility] 4 05:35:44 Constipa tion 15884655 Completed 202204/17/2023 Problem Code: K59.00; Problem Code Type: ICD-10; Not Available [facility] 4 05:35:44 Contact dermatit is 91797004 Completed 202204/17/2023 Problem Code: L25.9; Problem Code Type: ICD-10; Not Available [facility] 4 05:35:44 Bursitis of elbow 920589669 Completed 202205/24/2023 Problem Code: M70.32; Problem Code Type: ICD-10; Not Available [facility] 4 05:35:44 Visual disturba nce 44193086 Completed 202205/24/2023 Problem Code: H53.9; Problem Code Type: ICD-10; Not Available [facility] 4 05:35:44 Foot pain 07836502 Completed 202205/24/2023 Problem Code: M79.673; Problem Code Type: ICD-10; Not Available [facility] 4 05:35:44 Asthenia 98111645 Completed 202205/24/2023 Problem Code: R53.1; Problem Code Type: ICD-10; Not Available [facility] 4 05:35:45 Urinary tract infectio us disease 47965249 Completed 202205/28/2023 Problem Code: N39.0; Problem Code Type: ICD-10; Not Available [facility] 4 05:35:45 Abnormal urine 228467910 Completed 202203/26/2023 Problem Code: R82.998; Problem Code Type: ICD-10; Not Available [facility] 4 05:35:46 [place] - lesion 213495744 Completed 202003/26/2023 Problem Code: L84; Problem Code Type: ICD-10; Not Available [facility] 4 05:35:46 Spontane ous ecchymos is 372863277 Completed 202203/26/2023 Problem Code: R23.3; Problem Code Type: ICD-10; Not Available [facility] 4 05:35:47 Disorder of eye region 369057000 Completed 201803/26/2023 Problem Code: H57.9; Problem Code Type: ICD-10; Not Available [facility] 4 05:35:47 Screenin g for disorder Completed 202203/26/2023 Problem Code: Z13.9; Problem Code Type: ICD-10; Not Available [facility] 4 05:35:48 Anemia 930750125 Active [address], [place], [address] , [facility] 4 16:07:16 Renal insuffic iency 072578345 Active [address], [facility] [address] , [facility] 4 16:07:23 Chronic dermatit is 08691758 Active 2023 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 Starting dupixent . 01/[address], [facility] [address] , [facility] 4 12:05:14 Not for resuscit ation 295906847 Active [address], [facility] [address] , [facility] 4 13:10:20 Skin ulcer 24197991 Active [address], [facility] [address] , [facility] 4 13:28:26 Problem Notes None recorded. Procedures Surgical History Date Name Laterality Status Provider Name and Address Organization Details Recorded Time 01/19/2024 Punch Biopsy completed [address], [facility] [address], [facility] 01/19/2024 16:09:17 Imaging Results None recorded. [...] every day by oral route. 02/21 completed [facility] Derm Not Available Not [...] a day by oral route. 2023 active [facility] derm Not Available Not [...] Last Updated DateTime 168.02 cm 28 kg/m2 96100.0 7 g 97 [degF] 97 % 97 % 79 /min 16 /min 106 mm[Hg] 66 mm[Hg] Claudia Saini MA [facility] 14:24:40 Social History Question Answer Notes LastModified by Organizat ion Details LastModified Time Tobacco Smoking Status Never Smoker VISH LEMA RN null, [facility] 06/30/2023 14:09:46 What Was The Date [...] Td(adult) unspecified formulation 06/28/2000 completed Not Available [facility] 05/07/2023 06:30:20 Influenza, split virus, quadrivalent, PF 09/01/2019 completed Not Available [facility] 05/07/2023 06:30:20 Influenza, high-dose, quadrivalent, PF 07/04/2020 completed Not Available [facility] 05/07/2023 06:30:20 Influenza, high-dose, quadrivalent, PF 03/26/2021 completed Not Available [facility] 05/07/2023 06:30:20 Influenza, high-dose, quadrivalent, PF 04/22/2022 completed Not Available [facility] 05/07/2023 06:30:20 COVID-19, mRNA, LNP-S, PF, 100 mcg/0.5mL dose or 50 mcg/0.25mL dose 09/10/2021 completed Not Available [facility] 05/07/2023 06:30:20 COVID-19 vaccine, vector-nr, rS-Ad26, PF, 0.5 mL 11/13/2020 completed Not Available [facility] 05/07/2023 06:30:21 COVID-19, mRNA, LNP-S, bivalent, PF, 30 mcg/0.3 mL dose 04/22/2022 completed Not Available [facility] 05/07/20 06:30:21 pneumococcal polysaccharide PPV23 06/28/2000 completed Not Available [facility] 2022 06:30:21 pneumococcal polysaccharide PPV23 08/14/2020 completed Not Available [facility] 2022 06:30:21 Influenza, high-dose, quadrivalent, PF 03/26/2023 completed Not Available [facility] 07/09/2023 05:31:28 Past Encounters Encounter ID Performer Location Encounter Start Date Encounter Closed Date Diagnosis/Indication Diagnosis SNOMED-CT Code [id number] REINIER ARCEO PA-C [facility] [address] [place] [address] 12/24/2023 10:09:36 12/24/2023 10:50:40 Pruritic disorder 766563315 Type 2 shannon betes mellitus without complication 288846662 Anemia 764680174 [id number] REINIER ARCEO PA-C [facility] [address] [address] [place] [address] 01/19/2024 13:20:35 01/19/2024 14:19:23 Chronic combined systolic and diastolic heart failure 51092315738326 0 Renal insufficiency 7231 19616 Anemia 682022895 Atopic dermatitis 728199 01 [id number] Claudia Saini MA [address] [place] [address] 01/21/2024 13:41:27 01/21/2024 15:14:55 Health Concerns Section Related Observation LastModified by Organization Detai ls LastModified Time None Recorded Concern Status LastModified by Organization Details LastModified Time None Recorded Payers Encounter Date Sequence Insurance Name Policy Number Policy Shah Covered Member ID Shah Member ID Guarantor Name 01/21/2024 1 [place] Miguel Sanchez [id number] Miguel Sanchez 01/21/2024 2 [facility] (MEDICAID) Miguel Sanchez [id number] Miguel Sanchez
--- OUTSIDE RECORDS SUMMARY | 2024-02-22 14:56 | XMS_ITS | Encounter Summary ---
Author Organization [facility] [place] [address] Care Team Providers Care Seafood Packer Name Role Phone Reinier Arceo Primary Care Provider [phone] Reason for Referral * Diagnostic Test (Routine) - Closed Specialty Diagnoses / Procedures Referred By Contac t Referred To Contact Radiology Diagnoses Benign prostatic hyperplasia with urinary retention Scrotal swelling Procedures CT Pelvis Soft Tissue (GI ESTHETICIAN AND MANAGER MEDICAL SPA) wo Contrast Meche Donato APRN [facility] [address] [facility] [place] [address] Referral ID Status Reason Start Date Expiration Date V isits Requested Visits Authorized [id number] Closed Specialty Service Requested 07/07/2023 01/04/2025 1 1 Reason for Visit * Diagnostic Test (Routine) - Closed Specialty Diagnoses / Procedures Referred By Contac t Referred To Contact Radiology Diagnoses Benign prostatic hyperplasia with urinary retention Scrotal swelling Procedures CT Pelvis Soft Tissue (GI ESTHETICIAN AND MANAGER MEDICAL SPA) wo Contrast Meche Donato APRN [facility] [place] [address] [facility] [place] [address] Referral ID Status Reason Start Date Expiration Date V isits Requested Visits Authorized [id number] Closed Specialty Service Requested 07/07/2023 01/04/2025 1 1 Encounter Details Date Type Department Care Team (Latest Contact Info) Description 09/14/2023 10:43 AM EDT - 09/14/2023 11:59 PM EDT Hospital Encounter [facility] [place] [address] Meche Donato APRN [facility] [place] [address] Benign prostatic hyperplasia with urinary retention; Scrotal swelling Discharge Disposition: Home Social History Tobacco Use Types Packs/Day Years Used Date Smoking Tobacco: Never Smokeless Tobacco: Never Alcohol Use Standard Drinks/Week Comments Never 0 (1 standard drink = 0.6 oz pur e alcohol) [facility] Inpatient Questions Answer Date Recorded [...] ergocalciferoL, vitamin D2, (vitamin D2) 50,000 unit capsuleIndications:Vit torres D deficiency Take 1 capsule by mouth [...] % cream Apply topically 2 times daily. 02/21/2024 documented as of this encounter Plan of Treatment Upcoming Encounters Date Type Department Care Team (Late st Contact Info) Description 04/06/2024 2:20 PM EDT [place] [address] Austin Simon MD [facility] [place] [address] 04/11/2024 11:20 AM EDT Office Visit Dermatology at [facility] [address] [place] [address] Terri Pimentel MD [facility] [address] [place] [address] documented as of this encounter Procedures Procedure Name Priority Date/Time Associated Diagnosis Comments CT PELVIS SOFT TISSUE (GI ESTHETICIAN AND MANAGER MEDICAL SPA) WO CONTRAST Routine 09/14/2023 1:38 PM EDT Benign prostatic hyperplasia with urinary retention Scrotal swelling documented in this encounter Results * CT Pelvis Soft Tissue (GI ESTHETICIAN AND MANAGER MEDICAL SPA) wo Contrast (09/14/2023 1:38 PM EDT) Anatomical [...] who have questions please contact the health senior care provider that requested your imaging first. ? Narrative 09/14/2023 4:39 PM EDT EXAMINATION: CT PELVIS SOFT TISSUE (GI ESTHETICIAN AND MANAGER MEDICAL SPA) WO CONTRAST CLINICAL HISTORY: prostate sizing and [...] 09/14/2023 EXAMINATION: CT PELVIS SOFT TISSUE (GI ESTHETICIAN AND MANAGER MEDICAL SPA) WO CONTRAST CLINICAL HISTORY: prostate sizing and [...] patients who have questions please contactthe health senior care provider that requested your imaging first. Meche Donato APRN IMG CT ORDERABLES documented in this encounter Visit Diagnoses Diagnosis Benign prostatic hyperplasia with urinary retention Scrotal swelling Edema of male genital organs documented in this encounter Care Teams Seafood Packer Relationship Specialty Start Date End Date Reinier Arceo PA [address] [place] [address] PCP - General Internal Medicine 01/18/23 documented as of this encounter
--- OUTSIDE RECORDS SUMMARY | 2024-02-22 14:56 | XMS_ITS | Encounter Summary ---
Author Organization [facility] Address [facility] [place] [address] Care Team Providers Care Comic Book Designer Name Role Phone Reinier Arceo Primary Care Provider [phone] Encounter Details Date Type Department Care Team [...] 2:20 PM EDT Procedure [place] [address] Austin Simon MD [facility] [place] [address] 04/11/2024 11:20 AM EDT Office Visit Dermatology at [facility] [address] [place] [address] Terri Pimentel MD [facility] [address] [place] [address] documented as of this encounter Visit Diagnoses Not on filedocumented in this encounter Care Teams Comic Book Designer Relationship Specialty Start Date End Date Reinier Arceo PA [address] [place] [address] PCP - General Internal Medicine 01/18/23 documented as of this encounter
--- OUTSIDE RECORDS SUMMARY | 2024-02-22 14:56 | XMS_ITS | Encounter Summary ---
Author Organization [facility] Address [facility] [place] [address] Care Team Providers Care Machine Group Leader Name Role Phone Reinier Arceo Primary Care Provider [phone] Encounter Details Date Type Department Care Team (Late st Contact Info) Description 01/26/2024 Telephone Dermatology at [facility] [address] [place] [address] Charo Verma Social History Tobacco Use Types [...] that they send the referral again to [phone] (Kathy Mancilla) so either myself or one ofmy colleagues could enter the referral more quickly. Referral is for an urticarial papular full body rash. documented in this encounter Plan of Treatment Upcoming Encounters Date Type Department Care Team (Late st Contact Info) Description 04/06/2024 2:20 PM EDT Procedure [place] [address] Austin Simon MD [facility] [place] [address] 04/11/2024 11:20 AM EDT Office Visit Dermatology at [facility] [address] [place] [address] Terri Pimentel MD [facility] [address] [place] [address] documented as of this encounter Visit Diagnoses Not on filedocumented in this encounter Care Teams Machine Group Leader Relationship Specialty Start Date End Date Reinier Arceo PA [address] [place] [address] PCP - General Internal Medicine 01/18/23 documented as of this encounter
--- OUTSIDE RECORDS SUMMARY | 2024-02-22 14:56 | XMS_ITS | Encounter Summary ---
[place] [address] Care Team Providers Care Senior Commissary Agent Name Role Phone Reinier Arceo Primary Care Provider [phone] Reason for Referral * Diagnostic Test (Routine) - Closed Specialty Diagnoses / Procedures Referred By Fady park Referred To Contact Cardiology Diagnoses History of CHF (congestive heart failure) Procedures Mobile Jeff Cope MD [address] [place] [address] [place] [address] [facility] [place] [address] Referral ID Status Reason Start Date Expiration Date V isits Requested Visits Authorized [id number] Closed Specialty Service Requested 01/28/2024 01/27/2025 1 1 Reason for Visit * Diagnostic Test (Routine) - Closed Specialty Diagnoses / Procedures Referred By Fady park Referred To Contact Cardiology Diagnoses History of CHF (congestive heart failure) Procedures Mobile Jeff Cope MD [address] [place] [address] [facility], [facility] [place] [address] [facility] [place] [address] Referral ID Status Reason Start Date Expiration Date V isits Requested Visits Authorized [id number] Closed Specialty Service Requested 01/28/2024 01/27/2025 1 1 Encounter Details Date Type Department Care Team (Latest Contact Info) Description 01/28/2024 12:18 PM EDT - 01/28/2024 11:59 PM EDT Hospital Encounter Mobile [place] [address] Jeff Vann MD [address] [place] [address] [place] [address] History of CHF (congestive heart failure) Discharge [...] 2:20 PM EDT Procedure visit Urology at [facility] [place] [address] Austin Simon MD [facility] [place] [address] 04/11/2024 11:20 AM EDT Office Visit Dermatology at [facility] [address] [place] [address] Terri Pimentel MD [facility] [address] [place] [address] documented as of this encounter Procedures Procedure Name Priority Date/Time Associated Diagnosis Comments ECHO COMPLETE Routine 01/28/2024 12:42 PM EDT History of CHF (congestive heart failure) documented in this encounter Results * ECHO COMPLETE (01/28/2024 12:42 PM EDT) Anatomical Region Laterality Modality Other 01/28/2024 9:31 AM EDT Narrative 01/28/2024 2:19 PM EDT ? Version: 1 Name: KIADAMIENIN ?Study Date: 01/28/2024, 9: 31 AM ?BP: 120 / 79 mmHg ?Patient Location: 4A : 1955 (MM/DD/YYYY) ? Age: 68 Years Gender: Male Ordering Physician: JEFF VANN Referring Physician: JEFF VANN Reason For Study: CHF Exacerbation Interpreting Fellow: Olvin Johnson. Exam Location: [facility]. ? Conclusions Left ventricular systolic function [...] Left ventricular dilation is now severe. Procedure Complete-[id number]. Suboptimal quality. This study is limited because [...] cm Doppler ? 3D/Strain/ TomTec TR max ojse: 300.8 cm/sec RVSP(TR): 51.2 mmHg Ao V2 [...] Exacerbation Interpreting Fellow: Olvin Johnson. Exam Location: [facility]. Conclusions Left ventricular systolic function is [...] Left ventricular dilation is now severe. Procedure Complete-[id number]. Suboptimal quality. This study is limited because [...] system documented in this encounter Care Teams Senior Commissary Agent Relationship Specialty Start Date End Date Reinier Arceo PA [address] [place] [address] PCP - General Internal Medicine 01/18/23 documented as of this encounter
--- OUTSIDE RECORDS SUMMARY | 2024-02-22 14:56 | XMS_ITS | Encounter Summary ---
Author Organization [facility] Address [facility] [place] [address] Care Team Providers Care Manager People Name Role Phone Reinier Arceo Primary Care Provider [phone] Encounter Details Date Type Department Care Team (Late st Contact Info) Description 02/01/2024 Transcribe Orders eDH Incoming Referrals [phone] Reinier Arceo PA [address] [place], [place] [id number] Social History Tobacco Use Types Packs/Day Years [...] 2:20 PM EDT Procedure visit Urology at [facility] [place] [phone] Austin Simon MD [facility] [place] [address] 04/11/2024 11:20 AM EDT Office Visit Dermatology at [facility] [address] [place] [address] Terri Pimentel MD [facility] [address] [place] [address] documented as of this encounter Visit Diagnoses Not on filedocumented in this encounter Care Teams Manager People Relationship Specialty Start Date End Date Reinier Arceo PA [facility] [address] [place] [address] PCP - General Internal Medicine 01/18/23 documented as of this encounter
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
--- OUTSIDE RECORDS SUMMARY | 2024-02-22 14:56 | XMS_ITS | Encounter Summary ---
Author Organization [facility] [place] [address] Care Team Providers Care High School Band Director Name Role Phone Reinier Arceo Primary Care Provider [phone] Encounter Details Date Type Department Care Team (Late st Contact Info) Description 01/31/2024 Telephone Urology at [facility] [place] [address] Hannah Carson, RN Social History Tobacco Use [...] 01/31/2024 2:54 PM EDT Copied from CRM #[id number]. Topic: Specialty Dept CRMs - Generic Call [...] 2:20 PM EDT [place] [address] Austin Simon MD [facility] [place] [address] 04/11/2024 11:20 AM EDT Office Visit Dermatology at [place] [address] [place] [address] Terri Pimentel MD [facility] [address] [place] [address] documented as of this encounter Visit Diagnoses Not on filedocumented in this encounter Care Teams High School Band Director Relationship Specialty Start Date End Date Reinier Arceo PA [address] [place] [address] PCP - General Internal Medicine 01/18/23 documented as of this encounter
--- OUTSIDE RECORDS SUMMARY | 2024-02-22 14:56 | XMS_ITS | Encounter Summary ---
Author Organization [facility] Address [facility] [place] [address] Care Team Providers Care Go Go Dancer Name Role Phone Reinier Arceo Primary Care Provider [phone] Encounter Details Date Type Department Care Team (Latest Contact Info) Description 02/21/2024 Travel Social History Tobacco Use Types Packs/Day [...] 2:20 PM EDT [place] [address] Austin Simon MD [facility] [address] 04/11/2024 11:20 AM EDT Office Visit Dermatology at [facility] [address] [place] [address] Terri Pimentel MD [facility] [address] [place] [address] documented as of this encounter Goals Goal Patient Goal Type Associated Problems Recent Progress Patient-Stated? Author Patient's specific desired goal: Patient Facing Action Plan No Luis Cordova, [facility] Note: Goal(s): Skin healing and reduction of symptoms, specifically a reduction of lesions from baseline Measured by: Patient reported s/sx and provider physical exam Time-frame: 6-12 months documented as of this encounter Visit Diagnoses Not on filedocumented in this encounter Care Teams Go Go Dancer Relationship Specialty Start Date End Date Reinier Arceo PA [address] [place] [address] PCP - General Internal Medicine 01/18/23 documented as of this encounter
--- OUTSIDE RECORDS SUMMARY | 2024-02-22 14:56 | XMS_ITS | Clinical Summary ---
Author Organization [facility] Address [facility] [place] [address] Care Team Providers Care Drier Feeder Name Role Phone Reinier Arceo Primary Care Provider [phone] Allergies No known active allergies Medications Medication Sig Dispensed Refills Start Date End Date Status pimozide (ORAP) 2 mg Tablet Take 2 [...] ergocalciferoL, vitamin D2, (vitamin D2) 50,000 unit capsuleIndications: Vitamin D deficiency Take 1 capsule by mouth once a week. 12 capsule 3 08/04/2023 Active Additional Information Patient not taking.Reported on 10/04/2023 predniSONE (Deltasone) 20 mg tablet Take 20 mg by mouth daily. Active furosemide (Lasix) 20 mg tablet Take 20 mg by mouth daily. Active hydrOXYzine (Atarax) 10 mg tabletIndications:D ermatitis Take 1 pill nightly as needed for itching. Can cause drowsiness 30 tablet 02/21/2024 Active doxycycline monohydrate (Monodox) 100 mg capsuleIndications: Reactive perforating collagenosis,Prurig o nodularis Take one capsule twice daily by mouth on empty stomach. If not able to tolerate on empty stomach, then take with food (avoid taking with dairy products) 28 capsule 02/21/2024 Active mupirocin (Bactroban) 2 % OintmentIndications :Reactive perforating collagenosis,Prurig o nodularis Apply to affected areas of the right buttock three times daily for 14 days 22 g 02/21/2024 Active dupilumab (Dupixent Pen) 300 mg/2 mL Pen Injector Inject the contents of two pens (600 mg) under the skin once initially, then inject the contents of one pen (300 mg) once every 14 days thereafter 4 mL 5 02/21/2024 Active triamcinolone (Kenalog) 0.1 % CreamIndications:Re active perforating collagenosis,Prurig o nodularis Apply two times daily to all affected areas for two weeks, then take one week off and repeat cycle. 453.6 g 02/21/2024 Active Active Problems Problem Noted Date Diagnosed Date Prurigo nodularis 02/22/2024 CKD (chronic kidney disease), stage IV Elevated [...] Encounters Date Type Department Care Team Description 02/22/2024 Specialty [place] [phone] Afia Dey, DOME[employer]IC CLEANER 02/21/2024 9:00 AM EDT Office Visit Dermatology at [facility] [address] [place] [phone] Terri Pimentel MD Dermatitis; Reactive perforating collagenosis; Prurigo nodularis 02/21/2024 8:40 AM EDT Clinical Support Dermatology at [facility] [address] [facility] [address] [place] [phone] Terri Pimentel MD Visit for suture removal 02/21/2024 Specialty [place] [phone] Georges Karimi, [facility] 02/21/2024 Specialty [place] [phone] Luis Cordova, [facility] Initial Clinical Assessment/Patient Education for Dermatology 02/21/2024 Refill Dermatology at [facility] [address] [place] [phone] Terri Pimentel MD 02/21/2024 Travel 02/14/2024 8:50 AM EDT Laboratory Appointment Lab at [facility] [address] [facility] [address] [place] [phone] Chronic kidney disease, unspecified CKD stage; Stage 3 chronic kidney disease, unspecified whether stage 3a or 3b CKD; Dermatitis 02/14/2024 8:00 AM EDT Office Visit Dermatology at [facility] [address] [place] [phone] Eliza Alvarado MD Dermatitis (Primary Dx) 02/14/2024 Travel 02/04/2024 [place] [address] Cathleen Agarwal 02/02/2024 Transcribe Orders eDH Incoming Referrals [phone] Reinier Areco PA Atopic dermatitis, unspecified type 02/01/2024 Transcribe Orders eDH Incoming Referrals [phone] Reinier Arceo PA 01/31/2024 [place] [address] Hannah Carson RN 01/31/2024 Transcribe Orders eD Incoming Referrals [phone] Reinier Arceo PA Atopic dermatitis, unspecified type 01/28/2024 12:18 PM EDT - 01/28/2024 11:59 PM EDT Hospital Encounter Mobile [place] [address] Jeff Vann MD History of CHF (congestive heart failure) Discharge Disposition: Home 01/26/2024 Telephone Dermatology at [facility] [address] [place] [address] Charo Verma 11/23/2023 Telephone [place] [address] Courtney Sainz from Last 3 Months Social [...] 2:20 PM EDT Procedure [place] [address] Austin Simon MD [facility] [place] [address] 04/11/2024 11:20 AM EDT Office Visit Dermatology at [facility] [address] [place] [address] Terri Pimentel MD [facility] [address] [place] [address] Health Maintenance Due Date Last Done Comments [...] Discontinued 08/04/2023, 06/23/2023, 02/24/2023, Additional history exists Goals Goal Patient Goal Type Associated Problems Recent Progress Patient-Stated? Author Patient's specific desired goal: Patient Facing Action Plan No Luis Cordova [facility] Note: Goal(s): Skin healing and reduction of symptoms, specifically a reduction of lesions from baseline Measured by: Patient reported s/sx and provider physical exam Time-frame: 6-12 months Procedures Procedure Name Priority Date/Time Associated Diagnosis Comments SURGICAL PATHOLOGY, DERMATOLOGY Routine 02/14/2024 8:33 AM EDT Dermatitis SKIN/SUP WOUND CULTURE Routine 02/14/2024 8:33 AM EDT Dermatitis ECHO COMPLETE Routine 01/28/2024 12:42 PM EDT History of CHF (congestive heart failure) BASIC METABOLIC PANEL Routine 08/04/2023 12:55 PM EST Chronic kidney disease, unspecified CKD stage HEPATITIS C ANTIBODY Routine 01/20/2023 3:23 PM EDT HDL/CHOL PROFILE Routine 01/18/2023 10:1 6 PM EDT HEMOGLOBIN A1C Routine 01/18/2023 10:16 PM EDT from Last 3 Months or Most Recently Relevant to Health Maintenance Results * Surgical Pathology, Dermatology (02/14/2024 8:33 AM EDT) Case Report Surgical Pathology Report ? Case: [id number] ? Authorizing Provider: ??Morris Leger MD ? Collected: ? 02/14/2024 0833 ? Ordering Location: ? Dermatology at [facility] Received: ?02/14/2024 1357 ? Pathologist: ? Sheldon Jang MD ? Specimens: ?? A) - Arm, Right Upper ? B) - Back, Midline, right mid back ? 02/17/2024 2:35 PM EDT [facility] Final Diagnosis A. Right upper arm, punch biopsy: Focal ulcer with basophilic degenerative scale crust, focal transepidermal elimination of collagen (See Discussion) B. Right mid back, punch biopsy: Mild acanthosis, superficial perivascular lymphocytic infiltrate mixed with scattered eosinophils (See Discussion) 02/17/2024 2:35 PM EDT [facility] Discussion A (Right upper arm) - Transepidermal elimination of collagen is highlighted by trichrome special stain in center of the lesion. The adjacent epidermis shows acanthosis with hyperkeratosis and parakeratosis. No fungi are seen in PAS-reacted sections. Similar histological changes may be seen in reactive perforating collagenosis as well as prurigo nodularis/lichen simplex chronicus. Therefore clinicopathologic correlation is necessary. B(Back) - Findings in the biopsy are not very specific. The histological differential diagnosis includes a hypersensitivity reaction. Diagnostic features of perforating disorder are not seen. Multiple deeper levels have been examined. Clinicopathologic correlation is recommended. 02/17/2024 2:35 PM EDT [facility] Clinical Information A. DDX: Prurigo nodularis vs. uremic pruritis vs. reactive perforating collagenosis- B. DDX: Prurigo nodularis vs. uremic pruritis vs. reactive perforating collagenosis- 02/17/2024 2:35 PM EDT [facility] Gross Description A. Arm, Right Upper. Labeled/Fixative: Arm, right upper, formalin. Quantity/Size: Single, 0.4 cm in diameter, excised to a depth of 0.5 cm. Tissue Description: Wolff-pink skin punch. Sections/Processing : Bisected and entirely submitted in 1 cassette labeled A1. B. Back, Midline. Labeled/Fixative: Right mid back, formalin. Quantity/Size: Single, 0.4 cm in diameter, excised to a depth of 0.6 cm. Tissue Description: Wolff-pink skin punch. Sections/Processing : Bisected and entirely submitted in 1 cassette labeled B1. 02/17/2024 2:35 PM EDT [facility] Result Note Routine 02/17/2024 2:35 PM EDT [facility] Skin SKIN STRUCTURE OF BACK / Unknown Non Blood Collection / Unknown 02/14/2024 8:33 AM EDT 02/14/2024 1:57 PM EDT Skin (tissue) specimen (specimen) SKIN STRUCTURE OF BACK / Unknown 02/14/2024 8:33 AM EDT 02/14/2024 1:56 PM EDT Morris Leger MD PATHOLOGY/CYTOLOGY O TESSA [facility] [place] [address] * (ABNORMAL) Skin/Superficial Wound Culture (02/14/2024 8:33 AM EDT) Skin/Superfic ial Wound Culture Rare mixed bacterial morphotypes suggestive of normal cutaneous andrea 02/16/2024 10:40 AM EDT [facility] Gram Stain No neutrophils seen(A) 02/16/2024 10:40 AM EDT [facility] Gram Stain Rare Gram positive cocci(A) 02/16/2024 10:40 AM EDT [facility] Swab STRUCTURE OF RIGHT LOWER LIMB / Unknown Non Blood Collection / Unknown 02/14/2024 8:33 AM EDT 02/14/2024 10:01 AM EDT Morris Leger MD MICROBIOLOGY - GENER AL ORDERABLES Performing Organization Address City/State/[facility] [place] [address] * ECHO COMPLETE (01/28/2024 12:42 PM EDT) [...] Exacerbation Interpreting Fellow: Olvin Johnson. Exam Location: [facility]. ? Conclusions Left ventricular systolic function [...] Left ventricular dilation is now severe. Procedure Complete-96855. Suboptimal quality. This study is limited because [...] Exacerbation Interpreting Fellow: Olvin Johnson. Exam Location: [facility]. Conclusions Left ventricular systolic function is [...] Left ventricular dilation is now severe. Procedure Complete-[id number]. Suboptimal quality. This study is limited because [...] EST) Glucose 153 65 - 199 mg/dL [facility] Comment:Diabetes: >=200 mg/d L plus symptoms Blood Urea Nitrogen 17 10 - 20 mg/dL [facility] Creatinine 2.02(H) 0.80 - 1.50 mg/dL [facility] Sodium 134(L) 135 - 145 mmol/L [facility] Potassium 4.8 3.5 - 5.0 mmol/L [facility] Comment: Please note: ??Patients with WBC >100,000 may have falsely elevated Potassium levels. ??For accurate Potassium quantification in these patients send serum separator tube (gold top) for subsequent determinations. ??Contact the Clinical Chemistry Laboratory if there are any questions. Chloride 98 98 - 107 mmol/L [facility] Carbon Dioxide 23 22 - 31 mmol/L [facility] Anion Gap 13 5 - 15 mmol/L [facility] Calcium 9.6 8.5 - 10.5 mg/dL [facility] Est Glomerular Filtration Rate 35(L) >=60 mL/min/1. 73 m?? [facility] Comment: This patient's estimated GFR [...] In Lab Abel Brantley MD CHEMISTRY ORDERABLES [facility] [place] [address] * Hepatitis C Antibody (01/20/2023 3:23 PM EDT) Hepatitis C Antibody Negative Negative [facility] Blood 01/20/2023 3:23 PM EDT 01/20/2023 3:28 PM EDT Narrative Resulting Agency Comment Spec In Lab Austin Sosa MD CHEMISTRY ORDERABLES Performing Organization Address [facility] Co de Phone Number [facility] [place] [address] * HDL/Cholesterol Profile (01/18/2023 10:16 PM EDT) Cholesterol, Total 122 mg/dL [facility] Comment: Lower Risk: <200 mg/dL Average Risk: 200-239 mg/dL Higher Risk: >di=497 mg/dL HDL Cholesterol 27 mg/dL [facility] Comment: Males: ?? Higher Risk: <40 mg/dL Females: ?? Higher Risk: <50 mg/dL Cholesterol/HDL Ratio 4.5 ratio [facility] Chol/HDL Interpretation See Note [facility] Comment: Lipid management should be guided by a patient? s ASCVD risk, goals and preferences. ACC/AHA Guidelines recommend high intensity statin if clinical ASCVD or LDL greater than or equal to 190 mg/dL. http://TheStreeturl.com/LTY-NUH-Xragcqgtm Measure LDL if Total Cholesterol minus HDL Cholesterol is greater than 220 mg/dL. Adults aged 40-75 with LDL 70-189 mg/dL should have their 10 year ASCVD risk estimated with the ACC/AHA ASCVD risk job cost estimator http://tools.acc.org/RPNYY-Gsbu-Hfuiiywkn/ Statin should be discussed if risk greater [...] Lab Tanya Vizcarra MD CHEMISTRY ORDERABL ES Performing Organization Address [facility]/ZIP Co de Phone Number [facility] [place] [address] * (ABNORMAL) Hemoglobin A1c (01/18/2023 10:16 PM EDT) Hemoglobin A1c 5.7(H) 4.3 - 5.6 % [facility] Comment: Reference Range: 4.3 - [...] Mellitus, Diabetes Care 2013; 36: Suppl. 1, O89-44 Estimated Average Glucose 117 mg/dL [facility] Comment: eAG equivalents for HbA1c [...] into estimated average glucose values. ??Diabetes Care 2008:31(8):5028-7737. Blood 01/18/2023 10:1 6 PM EDT 01/18/2023 10:27 PM EDT Narrative Resulting Agency Comment Spec In Lab Tanya Vizcarra MD CHEMISTRY ORDERABL ES [facility] [place] [address] from Last 3 Months or Most Recently Relevant to Health Maintenance Advance Directives Documents on File Type Date Recorded Patient Candy Cooker Helper Expl anation DNR/Out of hospital 02/02/2024 8:16 AM Advance Directives and Livin g Will 01/19/2023 4:14 PM 01/19/2023 * Attempt Cardiopulmonary Resuscitation - Inpatient (Latest Code Status on File) Date Activated Date Inactivated Comments 01/18/2023 7:29 PM 01/27/2023 6:27 PM Question Answer Comments Code Status decision made by: Patient Care Teams Drier Feeder Relationship Specialty Start Date End Date Reinier Arceo PA [address] [place] [address] PCP - General Internal Medicine 01/18/23
--- OUTSIDE RECORDS SUMMARY | 2024-02-22 14:56 | XMS_ITS | Continuity of Care Document ---
Author Organization [place] - [facility] [place] [address] Assessment No assessment recorded. Plan of Treatment [...] Not available Not available Not available Lab BNP (B-type natriuret ic peptide), serum or plasma 2023 024 [facility] (Registration ), [address] [place] [address] [place], [address], 01/26/2024 07:19:01 CMP, serum or plasma 2023 024 [facility] (Registration ), [address] [place] [address] [place], [address], 01/19/2024 16:58:08 CBC 2023 024 [facility] (Registration ), [address] [place] [address] [place], [address], 01/19/2024 16:35:06 iron + total iron-bind ing capacity (TIBC), serum 2023 024 [facility] (Registration ), [address] [place] [address] [place], [address], 01/26/2024 07:18:53 Referral dermatolo gist referral - subacute resistant generaliz e urticaria l and excoriate d papular rash sparing only face, hands, feet, and scalp. Punch biopsy taken today 2023 024 [facility] ([facility]), [address] [place], [address], 02/14/2024 09:40:22 Procedures None recorded. Surgeries None recorded. Imaging None recorded. Medication Orders prednison e 20 mg tablet 2023 024 [email or web address] [address] [facility], [address] [facility], [place], [address], 02/22/2024 12:05:49 Patient TargetsNo targets recorded. Patient Instructions Encounter Date Encounter Id Patient Instructions Last Modified By Organization Details Last Modified Time 01/19/2024 [id number] Eczema: Care Instructions [email or web address] Not available 01/19/2024 16:06:02 Miguel - I will call you when I have results of biopsy. I will start referral to dermatology. We will start prednisone tablets to help with symptoms. Keep you appointment on January 26 so we can reevaluate. 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 CHF. 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 Accoun t #: [id number] [id number] [phone] Status : REG ER Primar [...] at the addres s above. Thank- you. [email or web address] [facility] [address] [facility] [place], [address] 01/28/2024 07:30:23 01/28/20 24 01/28/2024 x-ray imagi ng repor t Patien t Name: Shay Sanchez Unit #: [id number] Loc: MS Lisa anthony Provid er: Devin Barreto M.D. Accoun t #: [id number] Status : ADM IN Primar y [...] REPOSI TORY: RADIAT ION DOSE DELIVE RED: Ovidio brand By: Devin Barreto M.D. CC: ------ ------ ------ ------ ------ ------ ------ ------ ------ ------ ------ ------ - Dictat ed By: Anjelica Salvador [id number] Transc ribed By: Kevin Cleaning 1349 [...] the addres s above. Thank- you. [email or web address] [facility] [address], [place], [address] 01/28/2024 14:34:24 01/28/2001/28/2024 elect nelli christensen am No observ ation record ed. [email or web address] Not Available 2023 16:48:19 Result Notes None recorded. Problems Name Problem SNOMED Code Status Onset Date Resolution Date Notes Provider Name and Address Organization Details Recorded Time Type 2 diabetes mellitus without complica tion 232779541 Active 2018 Signifca nt improvem ent with behavior al changes Problem Code: E11.9; Problem Code Type: ICD-10; CESILIA MONZON MD [address], [place], [address] , [facility] 4 10:26:43 Lumbosac ral radiculo plexus neuropat hy due to type 2 diabetes mellitus 141708126 Completed 201803/26/2023 Problem Code: E11.44; Problem Code Type: ICD-10; Not Available [facility] 4 05:35:47 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 No change made today. Problem Code: E78.5; Problem Code Type: ICD-10; Not Available [facility] 3 04:55:33 Schizoph terrence 06213132 Active 201809/11/19 22 - Comments only - Reinier Arceo RPA - Continue s to follow-u p with Dr. Rowland at [facility] . Problem Code: F20.9; Problem Code Type: ICD-10; MD [address], [place], [address] , [facility] 4 10:26:49 Recurren t major depressi on 79062497 Active 2018 Problem Code: F33.9; Problem Code Type: ICD-10; Not Available [facility] 3 04:55:34 Erectile dysfunct ion 008158058 Active 2018 Problem Code: N52.9; Problem Code Type: ICD-10; Not Available [facility] 3 04:55:34 [facility] hyperten ottoniel 78028279 Active 2018 Problem Code: I10; Problem Code Type: ICD-10; MD [address], [place], [address] , [facility] 4 10:26:53 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 52669878657 9100 Active 201801/30/20 23 - Comments only - Reinier Arceo RPA - Acute flare necessit [facility] ization thought to be secondar y to obstruct chelsy uropathy Problem Code: I50.42; Problem Code Type: ICD-10; MD [address], [place], [address] , [facility] 4 10:26:36 Panic disorder 332879267 Active 2018 Problem Code: F41.0; Problem Code Type: ICD-10; Not Available [facility] 3 04:55:35 Counseli ng Completed 201803/25/2019 Problem Code: Z71.89; Problem Code Type: ICD-10; Not Available [facility] 3 04:55:35 Adult health examinat ion Active 2019 Problem Code: Z00.00; Problem Code Type: ICD-10; CESILIA MONZON MD [address], [place], [address] , [facility] 4 10:26:39 Viral screenin g Completed 201909/16/2019 Problem Code: Z11.59; Problem Code Type: ICD-10; Not Available [facility] 3 04:55:35 Onychomy cosis due to dermatop hyte 188641220 Active 202104/22/20 22 - Comments only - Reinier Arceo RPA - His toenails were clipped today. Problem Code: B35.1; Problem Code Type: ICD-10; Not Available [facility] 3 04:55:35 Acute kidney injury 54072337 Active 202201/30/20 23 - Comments only - Reinier Arceo RPA - 01/2023 hospital ization. Cr 5.71. Thought to be secondar y to obstruct chelsy uropathy superimp osed on cardiore nal physiolo gy. Problem Code: N17.9; Problem Code Type: ICD-10; Not Available [facility] 3 04:55:36 Acne vulgaris 10653178 Completed 201910/19/2019 Problem Code: L70.0; Problem Code Type: ICD-10; Not Available [facility] 3 04:55:36 Major depressi on, single episode 84890397 Completed 201803/17/2019 Problem Code: F32.9; Problem Code Type: ICD-10; Not Available [facility] 3 04:55:36 Neuropat hy due to type 2 diabetes mellitus 22634813896 9106 Completed 201803/17/2019 Problem Code: E11.40; Problem Code Type: ICD-10; Not Available [facility] 3 04:55:36 Diabetes mellitus 21806160 Completed 201803/17/2019 Problem Code: E13.9; Problem Code Type: ICD-10; Not Available [facility] 3 04:55:36 Dyspnea 327600389 Completed 202201/29/2023 Problem Code: R06.02; Problem Code Type: ICD-10; Not Available [facility] 3 04:55:36 Severe obesity 07329630547 104 Completed 201803/24/2023 Problem Code: E66.01; Problem Code Type: ICD-10; Not Available [facility] 3 04:55:37 Pneumoni a 539713394 Completed 201909/01/2019 Problem Code: J18.9; Problem Code Type: ICD-10; Not Available [facility] 3 04:55:37 Heart failure 27237202 Completed 201803/17/2019 Problem Code: I50.9; Problem Code Type: ICD-10; Not Available [facility] 3 04:55:37 Onychomy cosis due to dermatop hyte 506960539 Completed 201803/17/2019 Problem Code: B35.1; Problem Code Type: ICD-10; Not Available [facility] 3 04:55:37 Insomnia 115124358 Completed 201803/17/2019 Problem Code: G47.00; Problem Code Type: ICD-10; Not Available [facility] 3 04:55:37 Orthopne a 29383028 Completed 201803/17/2019 Problem Code: R06.01; Problem Code Type: ICD-10; Not Available [facility] 3 04:55:37 Nonulcer dyspepsi a 8442413 Completed 201803/17/2019 Problem Code: K30; Problem Code Type: ICD-10; Not Available [facility] 3 04:55:38 Chest pain 32783426 Completed 201910/19/2019 Problem Code: R07.89; Problem Code Type: ICD-10; Not Available [facility] 3 04:55:38 Dyspnea 469805138 Completed 201910/19/2019 Problem Code: R06.09; Problem Code Type: ICD-10; Not Available [facility] 3 04:55:38 Mixed hyperlip idemia 519965147 Completed 201803/17/2019 Problem Code: E78.2; Problem Code Type: ICD-10; Not Available [facility] 3 04:55:38 Diarrhea 16618414 Completed 201910/19/2019 Problem Code: R19.7; Problem Code Type: ICD-10; Not Available [facility] 3 04:55:38 HIV screenin g Completed 201910/19/2019 Problem Code: Z11.4; Problem Code Type: ICD-10; Not Available [facility] 3 04:55:38 Localize d eruption of skin 733851891 Completed 201803/17/2019 Problem Code: R21; Problem Code Type: ICD-10; Not Available [facility] 3 04:55:39 Urinary tract infectio us disease 01494460 Completed 202203/25/2023 Problem Code: N39.0; Problem Code Type: ICD-10; Not Available [facility] 4 05:35:44 Constipa tion 88774742 Completed 202204/17/2023 Problem Code: K59.00; Problem Code Type: ICD-10; Not Available [facility] 4 05:35:44 Contact dermatit is 67516632 Completed 202204/17/2023 Problem Code: L25.9; Problem Code Type: ICD-10; Not Available [facility] 4 05:35:44 Bursitis of elbow 744767141 Completed 202205/24/2023 Problem Code: M70.32; Problem Code Type: ICD-10; Not Available [facility] 4 05:35:44 Visual disturba nce 10928861 Completed 202205/24/2023 Problem Code: H53.9; Problem Code Type: ICD-10; Not Available [facility] 4 05:35:44 Foot pain 69393976 Completed 202205/24/2023 Problem Code: M79.673; Problem Code Type: ICD-10; Not Available [facility] 4 05:35:44 Asthenia 65485878 Completed 202205/24/2023 Problem Code: R53.1; Problem Code Type: ICD-10; Not Available [facility] 4 05:35:45 Urinary tract infectio us disease 19198716 Completed 202205/28/2023 Problem Code: N39.0; Problem Code Type: ICD-10; Not Available [facility] 4 05:35:45 Abnormal urine 651418950 Completed 202203/26/2023 Problem Code: R82.998; Problem Code Type: ICD-10; Not Available [facility] 4 05:35:46 Moro - lesion 800474873 Completed 202003/26/2023 Problem Code: L84; Problem Code Type: ICD-10; Not Available [facility] 4 05:35:46 Spontane ous ecchymos is 881762961 Completed 202203/26/2023 Problem Code: R23.3; Problem Code Type: ICD-10; Not Available [facility] 4 05:35:47 Disorder of eye region 778991886 Completed 201803/26/2023 Problem Code: H57.9; Problem Code Type: ICD-10; Not Available [facility] 4 05:35:47 Screenin g for disorder Completed 202203/26/2023 Problem Code: Z13.9; Problem Code Type: ICD-10; Not Available [facility] 4 05:35:48 Anemia 579137882 Active [address], [place], [address] , [facility]. 4 16:07:16 Renal insuffic iency 134734781 Active [address], [place], [address] , [facility]. 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 Starting dupixent . 01/[address], [place], [address] , [facility] 12:05:14 Not for resuscit ation 083541750 Active [address], [place], [address] , [facility] 13:10:20 Skin ulcer 40077212 Active [address], [place], [address] , [facility] 13:28:26 Problem Notes None recorded. Procedures Surgical History Date Name Laterality Status Provider Name and Address Organization Details Recorded Time 01/19/2024 Punch Biopsy completed [address], [place], [address], [facility] 01/19/2024 16:09:17 Imaging Results None recorded. Procedure [...] every day by oral route. 02/21 completed [facility] Derm Not Available Not Available [...] a day by oral route. 2023 active [facility] derm Not Available Not Available [...] Updated DateTime 4 168.02 cm 28 kg/m2 47713.0 7 g 98.3 [degF] 99 % 99 % 15 /min 84 /min 100 mm[Hg] 56 mm[Hg] MAI DUNCAN RN [facility] 4 13:35:49 Social History Question Answer Notes LastModified by Organizat ion Details LastModified Time Tobacco Smoking Status Never Smoker VISH LEMA RN [facility], [facility] 06/30/2023 14:09:46 What Was The [...] Td(adult) unspecified formulation 06/28/2000 completed Not Available [facility] 05/07/2023 06:30:20 Influenza, split virus, quadrivalent, PF 09/01/2019 completed Not Available [facility] 05/07/2023 06:30:20 Influenza, high-dose, quadrivalent, PF 07/04/2020 completed Not Available [facility] 05/07/2023 06:30:20 Influenza, high-dose, quadrivalent, PF 03/26/2021 completed Not Available [facility] 05/07/2023 06:30:20 Influenza, high-dose, quadrivalent, PF 04/22/2022 completed Not Available [facility] 05/07/2023 06:30:20 COVID-19, mRNA, LNP-S, PF, 100 mcg/0.5mL dose or 50 mcg/0.25mL dose 09/10/2021 completed Not Available [facility] 05/07/2023 06:30:20 COVID-19 vaccine, vector-nr, rS-Ad26, PF, 0.5 mL 11/13/2020 completed Not Available [facility] 05/07/2023 06:30:21 COVID-19, mRNA, LNP-S, bivalent, PF, 30 mcg/0.3 mL dose 04/22/2022 completed Not Available [facility] 05/07/20 06:30:21 pneumococcal polysaccharide PPV23 06/28/2000 completed Not Available [facility] 2022 06:30:21 pneumococcal polysaccharide PPV23 08/14/2020 completed Not Available [facility] 2022 06:30:21 Influenza, high-dose, quadrivalent, PF 03/26/2023 completed Not Available [facility] 07/09/2023 05:31:28 Past Encounters Encounter ID Performer Location Encounter Start Date Encounter Closed Date Diagnosis/Indication Diagnosis SNOMED-CT Code [id number] REINIER ARCEO PA-C [facility] [address] [place] [address] 12/24/2023 10:09:36 12/24/2023 10:50:40 Pruritic disorder 562921161 Type 2 shannon betes mellitus without complication 404630326 Anemia 127240120 [id number] REINIER ARCEO PA-C [facility] [address] [place] [address] 01/19/2024 13:20:35 01/19/2024 14:19:23 Chronic combined systolic and diastolic heart failure 15595272103245 0 Renal insufficiency 7231 41622 Anemia 646662867 Atopic dermatitis 502876 01 Health Concerns Section Related Observation LastModified by Organization Detai ls LastModified Time None Recorded Concern Status LastModified by Organization Details LastModified Time None Recorded Payers Encounter Date Sequence Insurance Name Policy Number Policy Shah Covered Member ID Shah Member ID Guarantor Name 01/19/2024 1 [place] Miguel Shaw Daniel [id number] Miguel P Daniel 01/19/2024 2 [facility] (MEDICAID) Miguel Shaw Daniel [id number] Miguel P Daniel Notes Date Note Type Note Provider Name and Address Organization Details Recorded Time 01/19/2024 text/html HPI Notes: Miguel is not feeling well. Currently having a flare of his chronic rash. This is making him miserable. Associated itching bothers him most at night. Affecting his sleep. He has put on weight since last visit -he attributes this to eating at a local diner for lunch on a daily basis. Is having more shortness of breath. No chest pain or tightness. Low energy. Some cloudiness in his urine that he just noted today. REINIER ARCEO PA-C [address], [place], [address], [facility]. 01/19/2024 16:09:39
--- OUTSIDE RECORDS SUMMARY | 2024-02-22 14:56 | XMS_ITS | Encounter Summary ---
Author Organization [facility] [place] [address] Care Team Providers Care Supervisor Grips Name Role Phone Reinier Arceo Primary Care Provider [phone] Encounter Details Date Type Department Care Team (Late st Contact Info) Description 10/04/2023 4:20 PM EDT Office Visit Urology at [facility] [place] [address] Austin Simon MD [facility] [place] [address] Urinary retention Social History Tobacco Use Types [...] Simon MD - 10/04/2023 4:20 PM EDT [facility] SECTION OF UROLOGY UROLOGY CLINIC VISIT [...] note: Found in retention after presenting to [facility] (12/2022) for SOB and CHF exacerbation. [...] has been undergoing monthly catheter exchanges at [facility] Urology Of note, he has a void trial scheduled tomorrow at [facility]. Denies hematuria. He is currently taking finasteride. [...] above. Austin Simon MD Section of Urology [facility] Office: [phone] documented in this encounter Plan of Treatment Upcoming Encounters Date Type Department Care Team (Late st Contact Info) Description 04/06/2024 2:20 PM EDT [place] [address] Autsin Simon MD [facility] [place] [address] 04/11/2024 11:20 AM EDT Office Visit Dermatology at [facility] [address] [place] [address] Terri Pimentel MD [facility] [address] [address] documented as of this encounter Visit Diagnoses Diagnosis Urinary retention Retention of urine, unspecified documented in this encounter Care Teams Supervisor Grips Relationship Specialty Start Date End Date Reinier Arceo PA [address] [place] [address] PCP - General Internal Medicine 01/18/23 documented as of this encounter
--- OUTSIDE RECORDS SUMMARY | 2024-02-22 14:56 | XMS_ITS | Encounter Summary ---
Author Organization [facility] Address [facility] [place] [address] Care Team Providers Care Distillation Operator Name Role Phone Reinier Arceo Primary Care Provider [phone] Encounter Details Date Type Department Care Team (Latest Contact Info) Description 02/14/2024 Travel Social History Tobacco Use Types Packs/Day [...] 2:20 PM EDT Procedure [place] [address] Austin Simon MD [facility] [place] [address] 04/11/2024 11:20 AM EDT Office Visit Dermatology at [facility] [address] [place] [address] Terri Pimentel MD [facility] [address] [place] [address] documented as of this encounter Visit Diagnoses Not on filedocumented in this encounter Care Teams Distillation Operator Relationship Specialty Start Date End Date Reinier Arceo PA [address] [place] [address] PCP - General Internal Medicine 01/18/23 documented as of this encounter
--- OUTSIDE RECORDS SUMMARY | 2024-02-22 14:56 | XMS_ITS | Encounter Summary ---
Author Organization [facility] Address [facility] [place] [address] Care Team Providers Care Neon Sign Mechanic Name Role Phone Reinier Arceo Primary Care Provider [phone] Encounter Details Date Type Department Care Team (Late st Contact Info) Description 02/04/2024 [place] [address] Cathleen Agarwal Social History Tobacco Use Types Packs/Day Years Used Date Smoking Tobacco: Never Smokeless Tobacco: Never Alcohol Use Standard Drinks/Week Comments Never 0 (1 standard drink = 0.6 oz pur e alcohol) [facility] Inpatient Questions Answer Date Recorded [...] 2:20 PM EDT [place] [address] Austin Simon MD [facility] [place] [address] 04/11/2024 11:20 AM EDT Office Visit Dermatology at [facility] [address] [place] [address] Terri Pimentel MD [facility] [address] [place] [address] documented as of this encounter Visit Diagnoses Not on filedocumented in this encounter Care Teams Neon Sign Mechanic Relationship Specialty Start Date End Date Reinier Arceo PA [address] [place] [address] PCP - General Internal Medicine 01/18/23 documented as of this encounter
--- OUTSIDE RECORDS SUMMARY | 2024-02-22 14:56 | XMS_ITS | Encounter Summary ---
Author Organization [facility] [place] [address] Care Team Providers Care Bindery Technician Name Role Phone Reinier Arceo Primary Care Provider [phone] Encounter Details Date Type Department Care Team (Late st Contact Info) Description 09/17/2023 Telephone Urology at [facility] [place] [address] Meche Donato APRN [facility] [place] [address] Social History Tobacco Use Types Packs/Day Years [...] 2:20 PM EDT [place] [address] Austin Simon MD [facility] [place] [address] 04/11/2024 11:20 AM EDT Office Visit Dermatology at [facility] [address] [place] [address] Terri Pimentel MD [facility] [address] [address] documented as of this encounter Visit Diagnoses Not on filedocumented in this encounter Care Teams Bindery Technician Relationship Specialty Start Date End Date Reinier Arceo PA [address] [place] [address] PCP - General Internal Medicine 01/18/23 documented as of this encounter
--- OUTSIDE RECORDS SUMMARY | 2024-02-22 14:56 | XMS_ITS | Encounter Summary ---
Author Organization [facility] [place] [address] Care Team Providers Care Manager Reporting Name Role Phone Reinier Arceo Primary Care Provider [phone] Reason for Visit * Reason Comments Prior Authorization Dupixent 300mg/2ml S OPN Encounter Details Date Type Department Care Team (Late st Contact Info) Description 02/22/2024 Specialty Pharmacy Pharmacy at [facility] [place] [place] [address] Afia Dey, CEMENT FINISHING SUPERVISOR Social History Tobacco Use Types Packs/Day Years [...] as of this encounter Progress Notes * Afia Dey CPHT - 02/22/2024 12:19 PM EDT [facility], Medication Prior Authorization Submission Patient: Miguel Sanchez Patient : 1955 Patient Address: [address] [address] (home) Medication Name: DUPILUMAB 300 MG/2 ML SUBCUTANEOUS PEN INJECTOR Medication ID: [id number] Subscriber Insurance: [employer] [place] Subscriber Insurance Comment: Fax: Physician: BEATRIZ WONG Physician Comment: Sent Via: [facility] Camejo: [id number] Ref/Case/PA#: [id number] Medication Strength Frequency Requested: Dupixent 300mg/2ml, Inject the contents of two pens (600 mg) under the skin once initially, then inject the contents of one pen (300 mg) once every 14 days thereafter Qty/Day Supply: 10/09 New Start: New to Therapy Diagnosis & ICD-10 Code: Prurigo nodularis L28.1 Patient Notified: No Submission Notes: None Afia Dey CPHT 02/22/24 12:28 PM documented in this encounter Plan of Treatment Upcoming Encounters Date Type Department Care Team (Late st Contact Info) Description 04/06/2024 2:20 PM EDT [place] [address] [facility] [place] [address] 04/11/2024 11:20 AM EDT Office Visit Dermatology at [address] [address] [facility] [address] [place] [address] documented as of this encounter Goals Goal Patient Goal Type Associated Problems Recent Progress Patient-Stated? Author Patient's specific desired goal: Patient Facing Action Plan No Luis Cordova, [facility] Note: Goal(s): Skin healing and reduction of symptoms, specifically a reduction of lesions from baseline Measured by: Patient reported s/sx and provider physical exam Time-frame: 6-12 months documented as of this encounter Visit Diagnoses Not on filedocumented in this encounter Care Teams Manager Reporting Relationship Specialty Start Date End Date Reinier Arceo PA [address] [facility] [address] [place] [address] PCP - General Internal Medicine 01/18/23 documented as of this encounter
--- OUTSIDE RECORDS SUMMARY | 2024-02-22 14:56 | XMS_ITS | Encounter Summary ---
Author Organization [facility] Address [facility] [place] [address] Care Team Providers Care Data Programmer Name Role Phone Reinier Arceo Primary Care Provider [phone] Reason for Referral * Consultation (Urgent) - Authorized Specialty Diagnoses / Procedures Referred By Contbella t Referred To Contact Dermatology Diagnoses Atopic dermatitis, unspecified type Reinier Arceo PA [address] [place] [address] [facility] Dermatology [address] [place] [address] Referral ID Status Reason Start Date Expiration Date Visits Requested Visits Authorized [id number] Authorized Consult, Test & Treat PCP Updated and/or Approved 01/19/2024 07/21/2024 6 6 Encounter Details Date Type Department Care Team (Latest Contact Info) Description 01/31/2024 Transcribe Orders eDH Incoming Referrals [phone] Reinier Arceo PA [address] [place] [address] Atopic dermatitis, unspecified type Social [...] 2:20 PM EDT Procedure [place] [address] Austin Simon MD [facility] [place] [address] 04/11/2024 11:20 AM EDT Office Visit Dermatology at [facility] [address] [place] [address] Terri Pimentel MD [facility] [address] [place] [address] Scheduled Referrals Name Type Priority Associated Diagnoses Orde r Schedule Referral to Dermatology Outpatient Referral Routine Atopic dermatitis, unspecified type Ordered: 01/31/2024 documented as of this encounter Visit Diagnoses Diagnosis Atopic dermatitis, unspecified type documented in this encounter Care Teams Data Programmer Relationship Specialty Start Date End Date Reinier Arceo PA [address] [place] [address] PCP - General Internal Medicine 01/18/23 documented as of this encounter
--- OUTSIDE RECORDS SUMMARY | 2024-02-22 14:56 | XMS_ITS | Encounter Summary ---
Author Organization [facility] Address [facility] [place] [address] Care Team Providers Care Texturing Machine Fixer Name Role Phone Reinier Arceo Primary Care Provider [phone] Reason for Referral * Consultation (Routine) - Canceled Specialty Diagnoses / Procedures Referred By Fady park Referred To Contact Dermatology Diagnoses Atopic dermatitis, unspecified type Reinier Arceo PA [address] [place] [address] [facility] Dermatology [address] [address] Referral ID Status Reason Start Date Expiration Date V isits Requested Visits Authorized [id number] Canceled Consult, Test & Treat 02/02/2024 02/01/2025 6 6 Encounter Details Date Type Department Care Team (Latest Contact Info) Description 02/02/2024 Transcribe Orders eDH Incoming Referrals [phone] Reinier Arceo PA [address] [place] [address] Atopic dermatitis, unspecified type Social [...] 2:20 PM EDT Procedure [place] [address] Austin Simon MD [facility] [place] [address] 04/11/2024 11:20 AM EDT Office Visit Dermatology at [facility] [address] [place] [address] Terri Pimentel MD [facility] [address] [address] Scheduled Referrals Name Type Priority Associated Diagnoses Orde r Schedule Referral to Dermatology Outpatient Referral Routine Atopic dermatitis, unspecified type Ordered: 02/02/2024 documented as of this encounter Visit Diagnoses Diagnosis Atopic dermatitis, unspecified type documented in this encounter Care Teams Texturing Machine Fixer Relationship Specialty Start Date End Date Reinier Arceo PA [address] [place] [address] PCP - General Internal Medicine 01/18/23 documented as of this encounter
--- OUTSIDE RECORDS SUMMARY | 2024-02-22 14:56 | XMS_ITS | Encounter Summary ---
Author Organization [facility] Address [facility] [place] [address] Care Team Providers Care Stamping Die Maker Bench Name Role Phone Reinier Arceo Primary Care Provider [phone] Encounter Details Date Type Department Care Team [...] 2:20 PM EDT [place] [address] Austin Simon MD [facility] [place] [place] [address] 04/11/2024 11:20 AM EDT Office Visit Dermatology at [facility] [address] [address] Terri Pimentel MD [facility] [address] [place] [address] documented as of this encounter Visit Diagnoses Not on filedocumented in this encounter Care Teams Stamping Die Maker Bench Relationship Specialty Start Date End Date Reinier Arceo PA [address] [place] [address] PCP - General Internal Medicine 01/18/23 documented as of this encounter
--- OUTSIDE RECORDS SUMMARY | 2024-02-22 14:56 | XMS_ITS | Encounter Summary ---
Author Organization [facility] [place] [address] Care Team Providers Care Matzo Forming Machine Operator Name Role Phone Reinier Arceo Primary Care Provider [phone] Encounter Details Date Type Department Care Team (Latest Contact Info) Description 02/21/2024 Specialty Pharmacy Pharmacy at [facility] [place] [address] Luis Cordova [facility] Initial Clinical Assessment/Patient Education for Dermatology Social History Tobacco Use Types Packs/Day Years [...] as of this encounter Progress Notes * Luis Cordova [facility] - 02/21/2024 9:43 AM EDT Images from the original note were not included. Specialty Pharmacy Ongoing Clinical Assessment Note Comprehensive Medication Management (CMM) Miguel Sanchez is a 68 y.o. (1955) male, who is being followed by [facility] for service of Dupilumab (Dupixent). A review of the medication therapy was performed. Problems Linked to Specialty Episode(s) Prurigo nodularis Therapy Start Date: To be determined Summary and Recommendations: A comprehensive review of Dupixent was discussed with the patient. Topic covered included: Review of patient's dose and indication Common side effects: common cold symptoms, injection site reaction, and eye irritation Warnings/precautions & contraindications: risk of serious infection was discussed and patient is aware to avoid all live vaccines. Patient instructed to reach out to their provider if they experience any change in vision. Storage: patient aware to store medication in the refrigerator and that the medication can be room temperature for up to 14 days Other topics discussed: drug mechanism of action, possible drug and/or food interactions, disposal,and anticipated time to effect Medication and allergy review completed Patient made aware of the prior authorization process and timeline and was provided with [facility] contact information if needed. General overview of self-injection process was provided and patient was encouraged to schedule an injection teaching appointment (in-person or telehealth) if they prefer to have first injection completed with medical oversight Is patient willing to proceed with Clinical Assessment?: Yes Clinic follow-up needed: Yes Comments: ongoing clinic follow up and monitoring. Injection teaching if requested Pharmacist follow-up needed: Yes Allergies and Drug intolerance: No Known Allergies Problem List: Patient Active Problem List Diagnosis [...] albumin decreased compared with prior measurement R79.89 Prurigo nodularis L28.1 Medication List: Current Outpatient Medications Medication Sig Dispense Refill hydrOXYzine (Atarax) 10 mg tablet Take 1 pill nightly as needed for itching. Can cause drowsiness 30 tablet 0 doxycycline monohydrate (Monodox) 100 mg capsule Take one capsule twice daily by mouth on empty stomach. If not able to tolerate on empty stomach, then take with food (avoid taking with dairy products) 28 capsule 0 mupirocin (Bactroban) 2 % Ointment Apply to affected areas of the right buttock three times daily for 14 days 22 g 0 dupilumab (Dupixent Pen) 300 mg/2 mL Pen Injector Inject the contents of two pens (600 mg) under the skin once initially, then inject the contents of one pen (300 mg) once every 14 days thereafter 4 mL 5 triamcinolone (Kenalog) 0.1 % Cream Apply two times daily to all affected areas for two weeks, thentake one week off and repeat cycle. 453.6 g 0 predniSONE (Deltasone) 20 mg tablet Take 20 mg by mouth daily. furosemide (Lasix) 20 mg tablet Take 20 mg by mouth daily. ivermectin (Stromectol) 3 mg tablet TAKE 5 AND 1/2 TABLETS BY MOUTH ONCE A SINGLE DOSE. REPEAT DOSE IN 2 WEEKS. OLANZapine (ZyPREXA) 15 mg tablet Take 15 mg by mouth nightly. ergocalciferoL, vitamin D2, (vitamin D2) 50,000 unit capsule Take 1 capsule by mouth once a week. (Patient not taking: Reported on 10/04/2023) 12 capsule 3 finasteride (Proscar) 5 mg tablet Take 1 tablet by mouth daily. 90 tablet 3 cholecalciferol, Vitamin D3, 50 mcg (2,000 unit) Capsule Take by mouth daily. docusate sodium (Colace) 100 mg capsule Take 1 capsule by mouth 2 times daily. (Patient not taking:Reported on 10/04/2023) 20 capsule 3 ketoconazole (Nizoral) 2 % Cream Apply topically daily. Apply a small amount to affected area twicea day pimozide (ORAP) 2 mg Tablet Take 2 mg by mouth 2 times daily. No current facility-administered medications for this visit. Medication reconciliation discrepancies (compared to [facility] med list): No Special dietary or hydration requirements: No Specialty Assessment and Patient Counseling: Specialty Assessment completed: Yes Delivery method: Delivery Welcome Packet and Rights and Responsibilities: Patient Counseling Completed: Yes Reviewed in detail with patient: Dose appropriateness based on recommended standard dosing Current medication list including OTC medications Medication and disease problems Allergies Comorbid conditions/ Problem List Past adverse events if any Special needs of the patient including physical and cognitive limitations Goals of therapy and management strategies Warnings, precautions, and contraindications Side effects Drug-drug and drug-food interactions Administration instructions including dose, frequency and method Handling, storage, and disposal Verifying expiration dates on products before use Rotating medication inventory to use oldest product first Relevant lab data Treatments impact on disease Dose appropriateness based on recommended standard dosing schedule, including any variations from FDA approved dosing Disease-Specific Assessment and Outcomes: 02/21/2024 Dermatology Current therapy -- Dupixent Condition Prurigo Nodularis Previous therapies Prednisone Reason for discontinuation Partial response Would you like to report an additional prior therapy? Yes Previous dermatology therapy Triamcinolone Reason for discontinuation Partial response Would you like to report an additional prior therapy? No Were provider-specified drug-specific labs/monitoring parameters evaluated? N/A (no monitoring required at this time) Did patient receive live vaccines in the past 4 weeks? (e.g. MMR, yellow fever, rotatvirus, intranasal influenza) No Does patient have an active infection? No Is patient currently taking a non-biologic DMARD? No Use of topical therapy Other Comments continue while onboarding Dupixent Current dermatology symptoms Pruritis;Other Comments active nodules Patient reported or chart documented BSA% Greater than 50% Is the patient experiencing a flare or exacerbation? Yes Severity currently worsening Patient's goals: Goals/Expected Outcomes Reviewed: Yes Goals Addressed This Visit's Progress Patient's specific desired goal: Goal(s): Skin healing and reduction of symptoms, specifically a reduction of lesions from baseline Measured by: Patient reported s/sx and provider physical exam Time-frame: 6-12 months Therapy Assessment and Recommendations: Therapy Assessment: Appropriate Therapy: Yes Patient Problems/Needs: Additional treatment for prurigo nodularis and ongoing clinic follow up Monitoring requirements for prescribed medication: Monitor for adverse effects, ocular side effects Care Plan reviewed and approved by both pharmacist and patient: Yes Did care plan change?: Yes Change to plans of care based on: Provider Request Medication Therapy Recommendations No medication therapy recommendations to display This is a: New-Start Consult Luis Cordova RP 02/22/24 7:16 AM documented in this encounter Plan of Treatment Upcoming Encounters Date Type Department Care Team (Late st Contact Info) Description 04/06/2024 2:20 PM EDT [place] [address] Austin Simon MD [facility] [place] [address] 04/11/2024 11:20 AM EDT Office Visit Dermatology at [place] [address] [place] [address] Terri Pimentel MD [facility] [address] [place] [address] documented as of this encounter Goals Goal Patient Goal Type Associated Problems Recent Progress Patient-Stated? Author Patient's specific desired goal: Patient Facing Action Plan No Luis Cordova RPH Note: Goal(s): Skin healing and reduction of symptoms, specifically a reduction of lesions from baseline Measured by: Patient reported s/sx and provider physical exam Time-frame: 6-12 months documented as of this encounter Visit Diagnoses Diagnosis Prurigo nodularis Lichenification and lichen simplex chronicus documented in this encounter Care Teams Matzo Forming Machine Operator Relationship Specialty Start Date End Date Reinier Arceo PA [address] [place] [address] PCP - General Internal Medicine 01/18/23 documented as of this encounter
--- OUTSIDE RECORDS SUMMARY | 2024-02-22 14:56 | XMS_ITS | Encounter Summary ---
Author Organization [facility] [place] [address] Care Team Providers Care Communications Superintendent Name Role Phone Reinier Arceo Primary Care [...] Gregory PA [address] [place] [address] [facility] Cardiology [address] [place] [phone] Referral ID Status Reason Start Date Expiration Date V isits Requested Visits Authorized [id number] Closed Consult, Test & Treat 10/15/2023 10/14/2024 1 1 Encounter Details Date Type Department Care Team (Latest Contact Info) Description 10/15/2023 Transcribe Orders eDH Incoming Referrals [phone] Reinier Arceo PA [address] [place] [address] Chronic combined systolic (congestive) and [...] 2:20 PM EDT Procedure [place] [address] Austin Simon MD [facility] [place] [address] 04/11/2024 11:20 AM EDT Office Visit Dermatology at [facility] [address] [place] [address] Terri Pimentel MD [facility] [address] [address] Scheduled Referrals Name Type Priority Associated Diagnoses Order Schedule Referral to Cardiology Outpatient Referral Routine Chronic combined systolic (congestive) and diastolic (congestive) heart failure Ordered: 10/15/2023 documented as of this encounter Visit Diagnoses Diagnosis Chronic combined systolic (congestive) and diastolic (congestive) heart failure documented in this encounter Care Teams Communications Superintendent Relationship Specialty Start Date End Date Reinier Arceo PA [address] [place] [address] PCP - General Internal Medicine 01/18/23 documented as of this encounter
--- OUTSIDE RECORDS SUMMARY | 2024-02-22 14:56 | XMS_ITS | Encounter Summary ---
Author Organization [facility] Address [facility] [place] [address] Care Team Providers Care Iron Pourer Name Role Phone Adis Reinier ZIMMERMAN Primary Care Provider [phone] Encounter Details Date Type Department Care Team (Late st Contact Info) Description 02/21/2024 Refill Dermatology at [facility] [address] [place] [address] Terri Pimentel MD [facility] [address] [place] [address] Social History Tobacco Use Types Packs/Day Years Used Date Smoking Tobacco: Never Smokeless Tobacco: Never Alcohol Use Standard Drinks/Week Comments Never 0 (1 standard drink = 0.6 oz pur e alcohol) [facility] Inpatient Questions Answer Date Recorded [...] 2:20 PM EDT [place] [address] Austin Simon MD [facility] [place] [place] [address] 04/11/2024 11:20 AM EDT Office Visit Dermatology at [facility] [address] [place] [address] Terri Pimentel MD [facility] [address] [place] [address] documented as of this encounter Goals Goal Patient Goal Type Associated Problems Recent Progress Patient-Stated? Author Patient's specific desired goal: Patient Facing Action Plan No Luis Cordova, [facility] Note: Goal(s): Skin healing and reduction of symptoms, specifically a reduction of lesions from baseline Measured by: Patient reported s/sx and provider physical exam Time-frame: 6-12 months documented as of this encounter Visit Diagnoses Not on filedocumented in this encounter Care Teams Iron Pourer Relationship Specialty Start Date End Date Reinier Arceo PA [address] [place] [address] PCP - General Internal Medicine 01/18/23 documented as of this encounter
--- OUTSIDE RECORDS SUMMARY | 2024-02-22 14:56 | XMS_ITS | Encounter Summary ---
Author Organization [facility] Address [facility] [place] [address] Care Team Providers Care Insurance Verification Specialist Name Role Phone Reinier Arceo Primary Care Provider [phone] Reason for Visit * Reason Comments Suture / Staple Removal Encounter Details Date Type Department Care Team (Latest Contact Info) Description 02/21/2024 8:40 AM EDT Clinical Support Dermatology at [facility] [address] [place] [address] Terri Pimentel MD [facility] [address] [address] Visit for suture removal Social History Tobacco Use Types Packs/Day Years [...] Notes * Terri Pimentel MD - 02/21/2024 8:40 AM EDT Images from the original note were not included. Date of service: 02/21/2024 Miguel Sanchez : 1955, 68 y.o. Suture Removal: 1. Here for scheduled suture removal, status post biopsy by Dr. Alvarado. Location A: right upper arm Location B: right mid back History: Patient has had no problems or concerns since the procedure. Examination: Wound edges show good apposition and a healthy wound. No sign of infection or dehiscence. Diagnosis: 1. Appropriate for suture removal. Plan/Procedure: 1. Sutures removed without complication by JOSE Tejeda 2. Follow up as scheduled. The following photos were obtained with patient consent: Note reviewed; Pt not see by myself or attending. Nurse only visit Terri Pimentel MD Dermatology Resident Morris De La Cruz. MD [place] Department of Dermatology [facility] * Morris Leger MD - 02/21/2024 8:40 AM EDT I was the supervising physician working with the Dermatology resident, Terri Pimentel MD, in the care of this Dermatology patient in person. For the purposes of billing, the resident provided the care. I have reviewed the encounter note details and level of service. Morris Leger MD Staff Arborist Climber Department of Dermatology [facility] documented in this encounter Plan of Treatment Upcoming Encounters Date Type Department Care Team (Late st Contact Info) Description 04/06/2024 2:20 PM EDT Procedure [place] [address] Austin Simon MD [facility] [address] 04/11/2024 11:20 AM EDT Office Visit Dermatology at [facility] [address] [place] [address] Terri Pimentel MD [facility] [place] [address] documented as of this encounter Goals Goal Patient Goal Type Associated Problems Recent Progress Patient-Stated? Author Patient's specific desired goal: Patient Facing Action Plan Luis Portillo, [facility] Note: Goal(s): Skin healing and reduction of symptoms, specifically a reduction of lesions from baseline Measured by: Patient reported s/sx and provider physical exam Time-frame: 6-12 months documented as of this encounter Visit Diagnoses Diagnosis Visit for suture removal Encounter for removal of sutures documented in this encounter Care Teams Insurance Verification Specialist Relationship Specialty Start Date End Date Reinier Arceo PA [address] [facility] [address] [place] [address] PCP - General Internal Medicine 01/18/23 documented as of this encounter
--- OUTSIDE RECORDS SUMMARY | 2024-02-22 14:56 | XMS_ITS | Encounter Summary ---
Author Organization [facility] Address [facility] [place] [address] Care Team Providers Care Dairy Chemist Name Role Phone Reinier Arceo Primary Care Provider [phone] Reason for Visit * Consultation (Urgent) - Authorized Specialty Diagnoses / Procedures Referred By Fady park Referred To Contact Dermatology Diagnoses Atopic dermatitis, unspecified type Reinier Arceo PA [address] [place] [address] [facility] Dermatology [address] [place] [address] Referral ID Status Reason Start Date Expiration Date Visits Requested Visits Authorized [id number] Authorized Consult, Test & Treat PCP Updated and/or Approved 01/19/2024 07/21/2024 6 6 Encounter Details Date Type Department Care Team (Late st Contact Info) Description 02/14/2024 8:00 AM EDT Office Visit Dermatology at [facility] [address] [place] [id number] Eliza Alvarado MD [facility] [address] [place] [address] Dermatitis (Primary Dx) Social History Tobacco Use Types Packs/Day Years Used Date Smoking Tobacco: Never Smokeless Tobacco: Never Alcohol Use Standard Drinks/Week Comments Never 0 (1 standard drink = 0.6 oz pur e alcohol) [facility] Inpatient Questions Answer Date Recorded Does [...] as of this encounter Progress Notes * Eliza Alvarado MD - 02/14/2024 8:00 AM EDT Images from the original note were not included. DEPARTMENT OF DERMATOLOGY Medical Dermatology Clinic Provider: Eliza Alvarado MD Patient's preferred name Miguel Preferred contact [...] Miguel Sanchez is a 68 y.o. Patient is referred to the clinic at the request of Reinier Arceo for a rash. He reports it has been present for a few months starting [...] not new). Stopped taking all other medications. Review of Systems: General: Feeling well. Skin: No other skin concerns. Medications: Reviewed in eD-H Allergies: Reviewed in eD-H Skin Examination: Full skin examination: Patient asked to undress to their comfort level. Verbalized that the provider's preference is that patient remove all clothing and that the provider will not examine areas patient elects to keep covered. Examination of the scalp, hair, head, face, ears, neck, chest, axillae, abdomen, back, buttocks, genitalia, and upper and lower extremities was normal with the exception ofthe findings below. Assessment/Plan #. Dermatitis Unspecified - Poorly-controlled. BSA ~30%. Excoriated red papulonodules with yellow crust on the posterior scalp, chest, abdomen, back, upper and lower extremities, sparing the fingerweb spaces, axilla, groin, and scapula. [place] mildly edematous plaques on the midback. (Figure 1) DDX: Prurigo Nodularis vs Uremic Pruritus with Secondary Excoriations vs Reactive Perforating Collagenosis vs Hypersensitivity Reaction to Arthropod or Drug - Pruritic excoriated papulonodules started around winter 2022. New hx of obstructive uropathy diagnosed in 12/2022. No hx of eczema. Does not live with anyone or in close proximity to others - Medical history: CHF, CKD IV, obstructive uropathy, schizophrenia, T2DM with neuropathy, COPD, HTN - Current medications: furosemide (not new), reportedly stopped all other medications - Labs 07/2023 - Cr 2 - Prior treatments: triamcinolone, Amlactin (maciel), ivermectin (for scabies) Plan: - Labs ordered: CBC, CMP, TSH, ferritin - Start Rx: Hydroxyzine 10mg - Take 1 pill nightly as needed for itching - Continue Rx triamcinolone 0.1% cream: Apply twice daily to affected areas for 2 weeks, stop for 1week, then repeat as needed (has Rx at home) - Reviewed sensitive skin care, handout provided. Continue Dove unscented soap, switch to All free & clear laundry detergent. - Continue moisturizing twice daily with Amlactin or Cerave - Could consider dupilumab or nbUVB therapy pending pathology (transportation could be an issue) - Discussed risks of prolonged topical corticosteroid use including atrophy, striae, hypopigmentation, tachyphylaxis. - After review of risks and benefits, joint decision made to pursue punch biopsy today. - Wound care reviewed with patient. Instructed patient to call with any concerns with biopsy site. Procedure: Skin biopsy by punch technique. Location A: right upper arm Location B: right mid back Discussed indications for the procedure and expectations including risks and benefits. Verbal consent obtained. Skin prep with alcohol. Local anesthesia: 1% lidocaine with 1/100,000 epinephrine. A 4 mm punch biopsy to the level of the subcutis was performed. Wound closed with monofilament suture. There were no complications; the patient tolerated the procedure well. The wound was dressed. Post-procedure expectations (including discomfort management), wound care and activity restrictions were reviewed. Follow-up based on pathology results. Suture removal: 7 days Figure 1 Photo(s) taken and charted with patient's verbal consent. Other: OTC skin products discussed RTC: Pending pathology, 1 week for suture removal []Note routed to law secretary []Recall placed in scheduling system [x]Appointment scheduled at checkout Scribe attestation: Yrn Quarles has performed the documentation for this encounter in the presence of and acting as a scribe for Eliza Alvarado MD. I performed the above scribed service and agree with the accuracy of the documentation in this encounter. Reviewed and signed by: Eliza Alvarado MD Dermatology [facility] Patient seen and evaluated with staff data reduction technician: Morris Leger MD Dermatology [facility] * Morris Leger MD - 02/14/2024 8:00 AM EDT I directly supervised Eliza Alvarado MD in the care of this Dermatology patient in person. I saw and evaluated this patient with Eliza Alvarado MD. Eliza Alvarado MD presented the history and physical exam details to me, then we saw the patient together, and I confirmed these findings. I agree with details as written. My physical examination confirms Eliza Alvarado MD's findings. The assessment and plan were formulated in discussion with me at the time of visit, and I agree with them as documented. Morris Leger MD Staff Batting Machine Operator Department of Dermatology [facility] * Eliza Alvarado MD - 02/14/2024 8:00 AM EDT Called patient to discuss biopsy results. Left voicemail to call back * Eliza Alvarado MD - 02/14/2024 8:00 AM EDT Discussion A (Right upper arm) - Transepidermal elimination of collagen is highlighted by trichrome special stain in center of the lesion. The adjacent epidermis shows acanthosis with hyperkeratosis and parakeratosis. No fungi are seen in PAS- reacted sections. Similar histological changes may be seen in reactive perforating collagenosis as well as prurigo nodularis/lichen simplex chronicus. Therefore clinicopathologic correlation is necessary. B(Back) - Findings in the biopsy are not very specific. The histological differential diagnosis includes a hypersensitivity reaction. Diagnostic features of perforating disorder are not seen. Multiple deeper levels have been examined. Clinicopathologic correlation is recommended. 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 Dr Pimentel discussed results with Miguel at his follow-up appointment and plan to start dupilumab. documented in this encounter Plan of Treatment Upcoming Encounters Date Type Department Care Team (Late st Contact Info) Description 04/06/2024 2:20 PM EDT Procedure [place] [address] Austin Simon MD [facility] [place] [address] 04/11/2024 11:20 AM EDT Office Visit Dermatology at [facility] [address] [address] Terri Pimentel MD [facility] [address] [place] [address] Scheduled Orders Name Type Priority Associated Diagnoses Orde r Schedule CBC (with Diff) Lab Routine Dermatitis Expected: 02/14/2024, Expires: 08/15/2024 Comprehensive metabolic panel Lab Routine Dermatitis Expected: 02/14/2024, Expires: 08/15/2024 T[facility] [place] Lab Routine Dermatitis Expected: 02/14/2024, Expires: 08/15/2024 Ferritin Lab Routine Dermatitis Expected: 02/14/2024, Expires: 08/15/2024 Pathology Order Update Pathology/Cyto logy Routine Dermatitis Ordered: 02/14/2024 documented as of this encounter Procedures Procedure Name Priority Date/Time Associated Diagnosis Comments SURGICAL PATHOLOGY, DERMATOLOGY Routine 02/14/2024 8:33 AM EDT Dermatitis SKIN/SUP WOUND CULTURE Routine 02/14/2024 8:33 AM EDT Dermatitis documented in this encounter Results * (ABNORMAL) Skin/Superficial Wound Culture (02/14/2024 8:33 AM EDT) Skin/Superfic ial Wound Culture Rare mixed bacterial morphotypes suggestive of normal cutaneous andrea 02/16/2024 10:40 AM EDT [facility] Gram Stain No neutrophils seen(A) 02/16/2024 10:40 AM EDT [facility] Gram Stain Rare Gram positive cocci(A) 02/16/2024 10:40 AM EDT [facility] Swab STRUCTURE OF RIGHT LOWER LIMB / Unknown Non Blood Collection / Unknown 02/14/2024 8:33 AM EDT 02/14/2024 10:01 AM EDT Morris Leger MD MICROBIOLOGY - GENER AL ORDERABLES [facility] [place] [address] * Surgical Pathology, Dermatology (02/14/2024 8:33 AM EDT) Case Report Surgical Pathology Report ? Case: [id number] ? Authorizing Provider: ??Morris Leger MD ? Collected: ? 02/14/2024 0833 ? Ordering Location: ? Dermatology at [facility] Received: ?02/14/2024 1357 ? Pathologist: ? Sheldon Jang MD ? Specimens: ?? A) - Arm, Right Upper ? B) - Back, Midline, right mid back ? 02/17/2024 2:35 PM EDT [facility] Final Diagnosis A. Right upper arm, punch biopsy: Focal ulcer with basophilic degenerative scale crust, focal transepidermal elimination of collagen (See Discussion) B. Right mid back, punch biopsy: Mild acanthosis, superficial perivascular lymphocytic infiltrate mixed with scattered eosinophils (See Discussion) 02/17/2024 2:35 PM EDT [facility] Discussion A (Right upper arm) - [...] correlation is recommended. 02/17/2024 2:35 PM EDT [facility] Clinical Information A. DDX: Prurigo nodularis vs. uremic pruritis vs. reactive perforating collagenosis- B. DDX: Prurigo nodularis vs. uremic pruritis vs. reactive perforating collagenosis- 02/17/2024 2:35 PM EDT [facility] Gross Description A. Arm, Right Upper. [...] cassette labeled B1. 02/17/2024 2:35 PM EDT [facility] Result Note Routine 02/17/2024 2:35 PM EDT [facility] Skin SKIN STRUCTURE OF BACK / Unknown Non Blood Collection / Unknown 02/14/2024 8:33 AM EDT 02/14/2024 1:57 PM EDT Skin (tissue) specimen (specimen) SKIN STRUCTURE OF BACK / Unknown 02/14/2024 8:33 AM EDT 02/14/2024 1:56 PM EDT Morris Leger MD PATHOLOGY/CYTOLOGY O RDERABLES [facility] [place] [address] documented in this encounter Visit Diagnoses Diagnosis Dermatitis- Primary Contact dermatitis and other eczema, due to unspecified cause documented in this encounter Care Teams Dairy Chemist Relationship Specialty Start Date End Date Reinier Arceo PA [address] [place] [address] PCP - General Internal Medicine 01/18/23 documented as of this encounter
--- OUTSIDE RECORDS SUMMARY | 2024-02-22 14:56 | XMS_ITS | Continuity of Care Document ---
Author Organization [facility], [facility] Address [address] [place] [address] Assessment No assessment recorded. Plan of Treatment [...] Not available Not available Not available Lab hemoglobi n A1C, fingersti ck [email or web address] [place] [address], [address], [place], [address], 12/24/2023 11:15:42 hemoglobi n (Hb), fingersti ck, blood 2023 [email or web address] [place] [address], [address], [place], [address], 12/24/2023 11:15:42 Referral None recorded. Procedures None recorded. Surgeries None recorded. Imaging None recorded. Medication Orders doxepin 5 % topical cream 2023 024 [email or web address] [id number], [address] [place] [address], [phone], 01/27/2024 15:15:17 ferrous sulfate 325 mg (65 mg iron) tablet 2023 024 [id number], [address], [place], [phone], 02/22/2024 13:29:16 Patient TargetsNo targets recorded. Patient Instructions Encounter Date Encounter Id Patient Instructions Last Modified By Organization Details Last Modified Time 12/24/2023 [id number] Miguel - we will try topical doxepin for your itching. I recommend you start to iron tablet daily to help with your blood cell counts. 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 CHF. More short of breath Referring Physician: Reinier Arceo [facility]ony, Encounter Date: 10/12/2023 Sonar Subsystem Equipment Operator Referral for A topic dermatitis subacute resistant generalize urticarial and excoriated papular rash sparing only face, hands, feet, and scalp. Punch biopsy taken today Referring Physician: Reinier Arceo [facility], Encounter Date: 01/19/2024 Results Created Date Observation Date Name Description Value Unit Range Abnormal Flag Note LastModifiedBy Organization Detail LastModifiedTime 12/24/19 24 12/24/2023 hemog lobin (Hb), finge rstic k, blood HGB 9.4 g/dL Not Available [facility] [address], [place], [address], 12/24/2023 10:57:15 12/24/19 24 12/24/2023 hemog lobin A1C, finge rstic k hemoglobin A1C 5.2 % <5.7 Not Available [facility] [address], [place], [address], 12/24/2023 10:53:00 01/27/20 24 01/27/2024 x-ray imagi ng daniel t Angel Luis t Name: Shay Sanchez Unit #: [id number] Loc: ER Orderi gabrielle Provid er: Christo Conner M.D. t #: [id number] [phone] Status : REG ER Primar [...] error, please notify us immedi ately at [phone] and return the origin al report to us at the addres s above. Thank- you. [email or web address] [facility] [address] [place], [address] 01/28/2024 07:30:23 01/28/20 24 01/28/2024 x-ray imagi ng repor t Patien t Name: Shay Sanchez Unit #: [id number] Loc: MS Lisa anthony Provid er: Devin Barreto M.D. Accoun t #: [id number] Status : ADM IN Primar y [...] error, please notify us immedi ately at [phone] and return the origin al report to us at the addres s above. Thank- you. [email or web address] [facility] [address], [place], [address] 01/28/2024 14:34:24 01/28/20 24 01/28/2024 elect nelli christensen am No observ ation record ed. [email or web address] Not Available 2023 16:48:19 Result Notes None recorded. 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 No change made today. Problem Code: E78.5; Problem Code Type: ICD-10; Not Available [facility] 3 04:55:33 Schizoph terrence 04643263 Active 201809/11/19 22 - Comments only - Reinier Arceo RPA - Continue s to follow-u p with [facility] . Problem Code: F20.9; Problem Code Type: ICD-10; MD [address], [place], [address] , [facility] 4 10:26:49 Recurren t major depressi on 52827923 Active 2018 Problem Code: F33.9; Problem Code Type: ICD-10; Not Available [facility] 3 04:55:34 Erectile dysfunct ion 196525563 Active 2018 Problem Code: N52.9; Problem Code Type: ICD-10; Not Available [facility] 3 04:55:34 [facility]ia l hyperten ottoniel 05436235 Active 2018 Problem Code: I10; Problem Code Type: ICD-10; MD [address], [place], [address] , [facility] 4 10:26:53 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 ization thought to be secondar y to obstruct chelsy uropathy Problem Code: I50.42; Problem Code Type: ICD-10; MD [address], [place], [address] , [facility] 4 10:26:36 Panic disorder 681060987 Active 2018 Problem Code: F41.0; Problem Code Type: ICD-10; Not Available [facility] 3 04:55:35 Counseli ng Completed 201803/25/2019 Problem Code: Z71.89; Problem Code Type: ICD-10; Not Available [facility] 3 04:55:35 Adult health examinat ion Active 2019 Problem Code: Z00.00; Problem Code Type: ICD-10; CESILIA MONZON MD [address], [place], [address] , [facility] 4 10:26:39 Viral screenin g Completed 201909/16/2019 Problem Code: Z11.59; Problem Code Type: ICD-10; Not Available [facility] 3 04:55:35 Onychomy cosis due to dermatop hyte 453703986 Active 202104/22/20 22 - Comments only - Reinier Arceo RPA - His toenails were clipped today. Problem Code: B35.1; Problem Code Type: ICD-10; Not Available [facility] 3 04:55:35 Acute kidney injury 72573492 Active 202201/30/20 23 - Comments only - Reinier Arceo [facility] - 01/2023 hospital ization. Cr 5.71. Thought to be secondar y to obstruct chelsy uropathy superimp osed on cardiore nal physiolo gy. Problem Code: N17.9; Problem Code Type: ICD-10; Not Available [facility] 3 04:55:36 Acne vulgaris 99004939 Completed 201910/19/2019 Problem Code: L70.0; Problem Code Type: ICD-10; Not Available [facility] 3 04:55:36 Major depressi on, single episode 49817638 Completed 201803/17/2019 Problem Code: F32.9; Problem Code Type: ICD-10; Not Available [facility] 3 04:55:36 Neuropat hy due to type 2 diabetes mellitus 92101817705 9106 Completed 201803/17/2019 Problem Code: E11.40; Problem Code Type: ICD-10; Not Available [facility] 3 04:55:36 Diabetes mellitus 20694891 Completed 201803/17/2019 Problem Code: E13.9; Problem Code Type: ICD-10; Not Available [facility] 3 04:55:36 Dyspnea 731136752 Completed 202201/29/2023 Problem Code: R06.02; Problem Code Type: ICD-10; Not Available [facility] 3 04:55:36 Severe obesity 02255764164 104 Completed 201803/24/2023 Problem Code: E66.01; Problem Code Type: ICD-10; Not Available [facility] 3 04:55:37 Pneumoni a 362029339 Completed 201909/01/2019 Problem Code: J18.9; Problem Code Type: ICD-10; Not Available [facility] 3 04:55:37 Heart failure 49230060 Completed 201803/17/2019 Problem Code: I50.9; Problem Code Type: ICD-10; Not Available [facility] 3 04:55:37 Onychomy cosis due to dermatop hyte 949971328 Completed 201803/17/2019 Problem Code: B35.1; Problem Code Type: ICD-10; Not Available [facility] 3 04:55:37 Insomnia 629448696 Completed 201803/17/2019 Problem Code: G47.00; Problem Code Type: ICD-10; Not Available [facility] 3 04:55:37 Orthopne a 70534402 Completed 201803/17/2019 Problem Code: R06.01; Problem Code Type: ICD-10; Not Available [facility] 3 04:55:37 Nonulcer dyspepsi a 0003072 Completed 201803/17/2019 Problem Code: K30; Problem Code Type: ICD-10; Not Available [facility] 3 04:55:38 Chest pain 83187888 Completed 201910/19/2019 Problem Code: R07.89; Problem Code Type: ICD-10; Not Available [facility] 3 04:55:38 Dyspnea 152208034 Completed 201910/19/2019 Problem Code: R06.09; Problem Code Type: ICD-10; Not Available [facility] 3 04:55:38 Mixed hyperlip idemia 585042084 Completed 201803/17/2019 Problem Code: E78.2; Problem Code Type: ICD-10; Not Available [facility] 3 04:55:38 Diarrhea 61339301 Completed 201910/19/2019 Problem Code: R19.7; Problem Code Type: ICD-10; Not Available [facility] 3 04:55:38 HIV screenin g Completed 201910/19/2019 Problem Code: Z11.4; Problem Code Type: ICD-10; Not Available [facility] 3 04:55:38 Localize d eruption of skin 041703126 Completed 201803/17/2019 Problem Code: R21; Problem Code Type: ICD-10; Not Available [facility] 3 04:55:39 Urinary tract infectio us disease 82775286 Completed 202203/25/2023 Problem Code: N39.0; Problem Code Type: ICD-10; Not Available [facility] 4 05:35:44 Constipa tion 17849994 Completed 202204/17/2023 Problem Code: K59.00; Problem Code Type: ICD-10; Not Available [facility] 4 05:35:44 Contact dermatit is 82291282 Completed 202204/17/2023 Problem Code: L25.9; Problem Code Type: ICD-10; Not Available [facility] 4 05:35:44 Bursitis of elbow 246910477 Completed 202205/24/2023 Problem Code: M70.32; Problem Code Type: ICD-10; Not Available [facility] 4 05:35:44 Visual disturba nce 20047468 Completed 202205/24/2023 Problem Code: H53.9; Problem Code Type: ICD-10; Not Available [facility] 4 05:35:44 Foot pain 10120826 Completed 202205/24/2023 Problem Code: M79.673; Problem Code Type: ICD-10; Not Available [facility] 4 05:35:44 Asthenia 53163380 Completed 202205/24/2023 Problem Code: R53.1; Problem Code Type: ICD-10; Not Available [facility] 4 05:35:45 Urinary tract infectio us disease 58222115 Completed 202205/28/2023 Problem Code: N39.0; Problem Code Type: ICD-10; Not Available [facility] 4 05:35:45 Abnormal urine 649684783 Completed 202203/26/2023 Problem Code: R82.998; Problem Code Type: ICD-10; Not Available [facility] 4 05:35:46 [place] - lesion 901653973 Completed 202003/26/2023 Problem Code: L84; Problem Code Type: ICD-10; Not Available [facility] 4 05:35:46 Spontane ous ecchymos is 140474191 Completed 202203/26/2023 Problem Code: R23.3; Problem Code Type: ICD-10; Not Available [facility] 4 05:35:47 Disorder of eye region 790063987 Completed 201803/26/2023 Problem Code: H57.9; Problem Code Type: ICD-10; Not Available [facility] 4 05:35:47 Screenin g for disorder Completed 202203/26/2023 Problem Code: Z13.9; Problem Code Type: ICD-10; Not Available [facility] 4 05:35:48 Anemia 283073753 Active [address], [place], [address] , [facility]. 4 16:07:16 Renal insuffic iency 868078572 Active [address], [place], [address] , [facility]. 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 Starting dupixent . 01/[address], [place], [address] , [facility] 12:05:14 Not for resuscit ation 935353028 Active [address], [facility] [address] , [facility] 13:10:20 Skin ulcer 46947665 Active [address], [facility] [address] , [facility] 13:28:26 Problem Notes None recorded. Procedures Surgical History Date Name Laterality Status Provider Name and Address Organization Details Recorded Time 01/19/2024 Punch Biopsy completed [address], [place], [address], [facility] 01/19/2024 16:09:17 Imaging Results None recorded. [...] every day by oral route. 02/21 completed [facility] [place] [place] Not Available Not Available Not Available [...] a day by oral route. 2023 active [facility] [place] Not Available Not Available Not Available [...] Arterial blood by Pulse oximetry Heart rate Systolic blood pressure Diastolic blood pressure Provider Name and Address Organization Details Last Updated DateTime 4 168.02 cm 25.3 kg/m2 21534.4 4 g 97.4 [degF] 99 % 99 % 78 /min 108 mm[Hg] 70 mm[Hg] AYAKA MCCARTY MA [facility] 4 10:23:24 Social History Question Answer Notes LastModified by Organizat ion Details LastModified Time Tobacco Smoking Status Never Smoker VISH LEMA RN null, [facility] 06/30/2023 14:09:46 What Was The Date [...] , angina pectoris Notes:*Problem: mother decea sed 2015 father at young age, work accident. brother unknown issues sister unknown issues Medical History No medical history recorded. Immunizations Vaccine Type Date Status Provider Name and Address Organization Details Recorded Time Td(adult) unspecified formulation 06/28/2000 completed Not Available [facility] 05/07/2023 06:30:20 Influenza, split virus, quadrivalent, PF 09/01/2019 completed Not Available [facility] 05/07/2023 06:30:20 Influenza, high-dose, quadrivalent, PF 07/04/2020 completed Not Available [facility] 05/07/2023 06:30:20 Influenza, high-dose, quadrivalent, PF 03/26/2021 completed Not Available [facility] 05/07/2023 06:30:20 Influenza, high-dose, quadrivalent, PF 04/22/2022 completed Not Available [facility] 05/07/2023 06:30:20 COVID-19, mRNA, LNP-S, PF, 100 mcg/0.5mL dose or 50 mcg/0.25mL dose 09/10/2021 completed Not Available [facility] 05/07/2023 06:30:20 COVID-19 vaccine, vector-nr, rS-Ad26, PF, 0.5 mL 11/13/2020 completed Not Available [facility] 05/07/2023 06:30:21 COVID-19, mRNA, LNP-S, bivalent, PF, 30 mcg/0.3 mL dose 04/22/2022 completed Not Available [facility] 05/07/20 06:30:21 pneumococcal polysaccharide PPV23 06/28/2000 completed Not Available [facility] 2022 06:30:21 pneumococcal polysaccharide PPV23 08/14/2020 completed Not Available [facility] 11/10/ 2023 06:30:21 Influenza, high-dose, quadrivalent, PF 03/26/2023 completed Not Available [facility] 07/09/2023 05:31:28 Past Encounters Encounter ID Performer Location Encounter Start Date Encounter Closed Date Diagnosis/Indication Diagnosis SNOMED-CT Code [id number] REINIER ARCEO PA-C [facility] [address] [place] [address] 12/24/2023 10:09:36 12/24/2023 10:50:40 Pruritic disorder 667388434 Type 2 shannon betes mellitus without complication 078758362 Anemia 725164828 Health Concerns Section Related Observation LastModified by Organization Detai ls LastModified Time None Recorded Concern Status LastModified by Organization Details LastModified Time None Recorded Payers Encounter Date Sequence Insurance Name Policy Number Policy Shah Covered Member ID Shah Member ID Guarantor Name 12/24/2023 1 [place] Miguel Shaw Daniel [id number] Miguel Sanchez 12/24/2023 2 [facility] (MEDICAID) Miguel Colin Sanchez [id number] Miguel Shaw Daniel Notes Date Note Type Note Provider Name and Address Organization Details Recorded Time 12/24/2023 text/html HPI Notes: Miguel is here for follow-up of skin rash, congestive heart failure, renal insufficiency, and anemia. He has been feeling okay. He is frustrated that his urodynamic study has been delayed until late in the summer. Continues with indwelling cath. His rash was doing significantly better but has Returned over the past several days. Itchy. He has not yet changed laundry detergents He has not yet started iron supplementation. His appetite has been improving but still losing weight. REINIER ARCEO PA-C [address], [place], [address], [facility]. 12/24/2023 15:27:07
--- OUTSIDE RECORDS SUMMARY | 2024-02-22 14:56 | XMS_ITS | Encounter Summary ---
Author Organization [facility] [place] [address] Care Team Providers Care News Cameraman Name Role Phone Reinier Arceo Primary Care Provider [phone] Encounter Details Date Type Department Care Team (Late st Contact Info) Description 11/23/2023 Telephone [place]phrology [place] [address] Courtney Sainz Social History Tobacco Use Types Packs/Day Years Used Date Smoking Tobacco: Never Smokeless Tobacco: Never Alcohol Use Standard Drinks/Week Comments Never 0 (1 standard drink = 0.6 oz pur e alcohol) [facility] Inpatient Questions Answer Date Recorded [...] 2:20 PM EDT Procedure [place] [address] Austin Simon MD [facility] [place] [address] 04/11/2024 11:20 AM EDT Office Visit Dermatology at [facility] [address] [address] Terri Pimentel MD [facility] [address] [address] documented as of this encounter Visit Diagnoses Not on filedocumented in this encounter Care Teams News Cameraman Relationship Specialty Start Date End Date Reinier Arceo PA [address] [place] [address] PCP - General Internal Medicine 01/18/23 documented as of this encounter
--- OUTSIDE RECORDS SUMMARY | 2024-02-22 14:56 | XMS_ITS | Encounter Summary ---
Author Organization [facility] Address [facility] [place] [address] Care Team Providers Care Padder Name Role Phone Reinier Arceo Primary Care Provider [phone] Reason for Visit * Reason Comments Specialty Pharmacy Review Encounter Details Date Type Department Care Team ([facility] st Contact Info) Description 02/21/2024 Specialty Pharmacy Pharmacy at [facility] [place] [address] Georges Karimi CPHT Social History Tobacco Use Types Packs/Day Years Used Date Smoking Tobacco: Never Smokeless Tobacco: Never Alcohol Use Standard Drinks/Week Comments Never 0 (1 standard drink = 0.6 oz pur e alcohol) [facility] Inpatient Questions Answer Date Recorded Does Anyone [...] as of this encounter Progress Notes * Georges Karimi CPHT - 02/21/2024 9:57 AM EDT The [facility] has completed a benefits investigation for Miguel Sanchez to review their eligibility to fill at [facility]. Per patient's medication list they are prescribed Dupixent and the patient's eligibility to fill at [facility] needs further insurance review at this time. documented in this encounter Plan of Treatment Upcoming Encounters Date Type Department Care Team (Late st Contact Info) Description 04/06/2024 2:20 PM EDT Procedure visit Urology at [facility] [place] [address] Austin Simon MD [facility] [place] [address] 04/11/2024 11:20 AM EDT Office Visit Dermatology at [facility] [address] [place] [address] Terri Pimentel MD [facility] [address] [place] [address] documented as of this encounter Goals Goal Patient Goal Type Associated Problems Recent Progress Patient-Stated? Author Patient's specific desired goal: Patient Facing Action Plan No Luis [facility] Note: Goal(s): Skin healing and reduction of symptoms, specifically a reduction of lesions from baseline Measured by: Patient reported s/sx and provider physical exam Time-frame: 6-12 months documented as of this encounter Visit Diagnoses Not on filedocumented in this encounter Care Teams Padder Relationship Specialty Start Date End Date Reinier Arceo PA [address] [place] [address] PCP - General Internal Medicine 01/18/23 documented as of this encounter
--- OUTSIDE RECORDS SUMMARY | 2024-02-22 14:56 | XMS_ITS | Encounter Summary ---
Author Organization [facility] [place] [address] Care Team Providers Care Humid System Operator Name Role Phone Reinier Arceo Primary Care Provider [phone] Encounter Details Date Type Department Care Team (Latest Contact Info) Description 02/14/2024 8:50 AM EDT Laboratory Appointment Lab at [facility] [address] [place] [address] Chronic kidney disease, unspecified CKD stage; Stage 3 chronic kidney disease, unspecified whether stage 3a or 3b CKD; Dermatitis Social History Tobacco Use Types Packs/Day Years [...] 2:20 PM EDT Procedure visit Urology at [facility] [place] [address] Austin Simon MD [facility] [place] [address] 04/11/2024 11:20 AM EDT Office Visit Dermatology at [facility] [address] [place] [address] Terri Pimentel MD [facility] [address] [place] [address] documented as of this encounter Visit Diagnoses Diagnosis Chronic kidney disease, unspecified CKD stage Stage 3 chronic kidney disease, unspecified whether stage 3a or 3b CKD Dermatitis Contact dermatitis and other eczema, due to unspecified cause documented in this encounter Care Teams Humid System Operator Relationship Specialty Start Date End Date Reinier Arceo PA [address] [place] [address] PCP - General Internal Medicine 01/18/23 documented as of this encounter
--- OUTSIDE RECORDS SUMMARY | 2024-02-22 14:57 | XMS_ITS | Encounter Summary ---
Author Organization [facility] Address [facility] [place] [address] Care Team Providers Care Cream Cheese Maker Name Role Phone Reinier Arceo Primary Care Provider [phone] Encounter Details Date Type Department Care Team [...] 2:20 PM EDT [place] [address] Austin Simon MD [facility] [place] [address] 04/11/2024 11:20 AM EDT Office Visit Dermatology at [facility] [address] [place] [address] Terri Pimentel MD [facility] [address] [place] [address] documented as of this encounter Visit Diagnoses Not on filedocumented in this encounter Care Teams Cream Cheese Maker Relationship Specialty Start Date End Date Reinier Arceo PA [address] [place] [address] PCP - General Internal Medicine 01/18/23 documented as of this encounter
--- OUTSIDE RECORDS SUMMARY | 2024-02-22 14:57 | XMS_ITS | Encounter Summary ---
Author Organization [facility] Address [facility] [place] [address] Care Team Providers Care Computer Engineering Technician Name Role Phone Reinier Arceo Primary Care Provider [phone] Encounter Details Date Type Department Care Team [...] PM EDT Procedure [place] [address] Austin Simon MD [facility] [place] [address] 04/11/2024 11:20 AM EDT Office Visit Dermatology at [facility] [address] [place] [address] Terri Pimentel MD [facility] [address] [address] documented as of this encounter Visit Diagnoses Not on filedocumented in this encounter Care Teams Computer Engineering Technician Relationship Specialty Start Date End Date Reinier Arceo PA [address] [place] [address] PCP - General Internal Medicine 01/18/23 documented as of this encounter
--- OUTSIDE RECORDS SUMMARY | 2024-02-22 14:57 | XMS_ITS | Encounter Summary ---
Author Organization [facility] [place] [address] Care Team Providers Care Neon Light Installer Name Role Phone Adis Reinier ZIMMERMAN Primary Care Provider [phone] Encounter Details Date Type Department Care Team (Late st Contact Info) Description 07/13/2023 [place] [phone] Meche Donato APRN [facility] [place] [address] Social History Tobacco Use Types Packs/Day Years Used Date Smoking Tobacco: Never Smokeless Tobacco: Never Alcohol Use Standard Drinks/Week Comments Never 0 (1 standard drink = 0.6 oz pur e alcohol) [facility] Inpatient Questions Answer Date Recorded Does [...] 2:20 PM EDT [place] [phone] Austin Simon MD [facility] [place] [address] 04/11/2024 11:20 AM EDT Office Visit Dermatology at [facility] [address] [place] [address] Terri Pimentel MD [facility] [address] [place] [address] documented as of this encounter Visit Diagnoses Not on filedocumented in this encounter Care Teams Neon Light Installer Relationship Specialty Start Date End Date Reinier Arceo PA [address] [place] [address] PCP - General Internal Medicine 01/18/23 documented as of this encounter
--- OUTSIDE RECORDS SUMMARY | 2024-02-22 14:57 | XMS_ITS | Encounter Summary ---
Author Organization [facility]ending [facility] Address [facility] [place] [address] Care Team Providers Care Search Analyst Name Role Phone Reinier Arceo Primary Care Provider [phone] Encounter Details Date Type Department Care Team (Late st Contact Info) Description 03/03/2023 Telephone [place] [address] Courtney Sainz Social History Tobacco Use Types Packs/Day Years Used Date Smoking Tobacco: Never Alcohol Use Standard Drinks/Week Comments Never 0 (1 standard drink = 0.6 oz pur e alcohol) [facility] Inpatient Questions Answer Date Recorded Does Anyone [...] 03/03/2023 11:08 AM EDT LM with patients clinical case manager Randa to call and schedule a follow up appointment documented in this encounter Plan of Treatment Upcoming Encounters Date Type Department Care Team (Late st Contact Info) Description 04/06/2024 2:20 PM EDT [place] [address] Austin Simon MD [facility] [place] [address] 04/11/2024 11:20 AM EDT Office Visit Dermatology at [facility] [address] [place] [address] Terri Pimentel MD [facility] [address] [place] [address] documented as of this encounter Visit Diagnoses Not on filedocumented in this encounter Care Teams Search Analyst Relationship Specialty Start Date End Date Reinier Arceo PA [address] [place] [address] PCP - General Internal Medicine 01/18/23 documented as of this encounter
--- OUTSIDE RECORDS SUMMARY | 2024-02-22 14:57 | XMS_ITS | Encounter Summary ---
Author Organization [facility] Address [facility] [place] [address] Care Team Providers Care Bindery Chief Name Role Phone Reinier Arceo Primary Care Provider [phone] Encounter Details Date Type Department Care Team (Latest Contact Info) Description 02/24/2023 4:00 PM EDT Office Visit [place] [phone] Deonte Lugo MD [facility] [address] [facility] [place] [address] Chronic kidney disease, unspecified CKD stage; Chronic kidney disease, stage 4 (severe) Social History Tobacco Use Types Packs/Day Years Used Date Smoking Tobacco: Never Tobacco Cessation:Counseling Given: Not Answered Alcohol Use Standard Drinks/Week Comments Never 0 (1 standard drink = 0.6 oz pur e alcohol) [facility] Inpatient Questions Answer Date Recorded Does Anyone [...] 4:00 PM EDT Hypertension-Nephrology Consultation Miguel Sanchez [id number] 1955 ID: [id number] y.o. old male seen [...] with spacer inhalational spacing device (Chris Aerosol [place] Enhancer) Spacer by [facility].(Non- Drug; Combo Route) route. nitroGLYcerin (Nitrostat) 0.4 [...] Visit from 02/24/2023 in Nephrology Hypertension at [facility] Height 165.1 cm (5' 5) Heart Rate [...] ADLs. Went back to hospital briefly [place] and is now in Rehab where he's [...] D supplement has been stopped. F/u scheduled two [facility] urology next week [place] for another voiding trial. He failed one [...] (c holecalciferol 5000 U daily or ergocalciferol 42442 U weekly). I phoned Miguel after the [...] 2:20 PM EDT [place] [address] Austin Simon MD [facility] [place] [address] 04/11/2024 11:20 AM EDT Office Visit Dermatology at [facility] [address] [address] Terri Pimentel MD [facility] [address] [place] [address] documented as of this encounter Procedures Procedure [...] 5:27 PM EDT) Neutrophil % 78.1 % [facility] Neutrophil Absolute 5.03 1.70 - 6.10 x10(3)/mc L [facility] Lymph % 12.7 % [facility] Lymphocytes Abs 0.8(L) 0.9 - 3.2 x10(3)/mc L [facility] Monocyte % 6.0 % [facility] Monocyte Abs 0.4 0.3 - 0.9 x10(3)/mc L [facility] Eos % 2.3 % [facility] Eosinophils Abs 0.2 0.0 - 0.4 x10(3)/[facility] Basophil % 0.6 % [facility] Baso Absolute 0.0 0.0 - 0.1 x10(3)/[facility] Immature Gran % 0.30 % [facility] Comment: Immature granulocytes(IG's)percentage and absolute count will include metamyelocytes, myelocytes, and promyelocytes. Blood smears from CBCs yielding IG's will be scanned manually for concordance. If this scan disagrees with the automated IG or if promyelocytes are noted, a manual differential will be performed. Immature Gran Absolute 0.02 0.00 - 0.04 x10(3)/[facility] Blood 02/24/2023 5:27 PM EDT 02/24/2023 5:35 PM EDT Narrative Resulting Agency Comment Spec In Lab Deonte Lugo MD HEMATOLOGY ORDERABL ES [facility] [place] [address] * (ABNORMAL) Hemogram (02/24/2023 5:27 PM EDT) White Blood Cell 6.4 4.0 - 9.5 x10(3)/[facility] Red Blood Cell 3.96(L) 4.58 - 5.54 x10(6)/[facility] Hemoglobin 12.1(L) 13.7 - 16.5 g/dL [facility] Hematocrit 35.2(L) 40.5 - 48.5 % [facility] Mean Cell Volume 88.9 82.9 - 93.1 fL [facility] Mean Cell Hemoglobin 30.6 27.5 - 32.1 pg [facility] Mean Cell Hemoglobin Concentration 34.4 32.0 - 35.7 g/dL [facility] Platelet 186 145 - 357 x10(3)/[facility] RDW Standard Deviation 40.8 36.0 - 45.0 fL [facility] RDW coefficient of variation 12.4 11.4 - 13.8 % [facility] Mean Platelet Volume 12.3 7.6 - 12.9 fL [facility] NRBC% auto 0.3 % [facility] NRBC Absolute 0.020(H) 0.000 - 0.000 x10(3)/mc L [facility] Blood 02/24/2023 5:27 PM EDT 02/24/2023 5:35 PM EDT Narrative Resulting Agency Comment Spec In Lab Deonte Lugo MD HEMATOLOGY ORDERABL ES Performing Organization Address City/[facility]/ZIP Co de Phone Number [facility] [place] [address] * Phosphorus (02/24/2023 5:27 PM EDT) Phosphorus 3.3 2.5 - 4.5 mg/dL [facility] Blood 02/24/2023 5:27 PM EDT 02/24/2023 5:35 PM EDT Narrative Resulting Agency Comment Spec In Lab Yolis Crawford MD CHEMISTRY ORDERABLES Performing Organization Address City/[facility]/ZIP Co de Phone Number [facility] [place] [address] * (ABNORMAL) PTH (02/24/2023 5:27 PM EDT) Parathyroid Hormone 144(H) 15 - 65 pg/mL [facility] Blood 02/24/2023 5:27 PM EDT 02/24/2023 5:35 PM EDT Narrative Resulting Agency Comment Spec In Lab Yolis Crawford MD CHEMISTRY ORDERABLES Performing Organization Address [facility]/ZIP Co de Phone Number [facility] [place] [address] * (ABNORMAL) Vitamin D, 25-Hydroxy (02/24/2023 5:27 PM EDT) Vitamin D Total 25 OH 16(L) 21 - 100 ng/mL [facility] Vit D Interp Deficient [facility] Blood 02/24/2023 5:27 PM EDT 02/24/2023 5:35 PM EDT Narrative Resulting Agency Comment Spec In Lab Yolis Crawford MD CHEMISTRY ORDERABLES [facility] [place] [address] * (ABNORMAL) Basic Metabolic Panel (non-fasting) (02/24/2023 5:27 PM EDT) Glucose 126 65 - 199 mg/dL [facility] Comment:Diabetes: >=200 mg/d L plus symptoms Blood Urea Nitrogen 49(H) 10 - 20 mg/dL [facility] Creatinine 4.18(H) 0.80 - 1.50 mg/dL [facility] Sodium 137 135 - 145 mmol/L [facility] Potassium 4.5 3.5 - 5.0 mmol/L [facility] Comment: Please note: ??Patients with WBC >100,000 may have falsely elevated Potassium levels. ??For accurate Potassium quantification in these patients send serum separator tube (gold top) for subsequent determinations. ??Contact the Clinical Chemistry Laboratory if there are any questions. Chloride 104 98 - 107 mmol/L [facility] Carbon Dioxide 20(L) 22 - 31 mmol/L [facility] Anion Gap 13 5 - 15 mmol/L [facility] Calcium 9.4 8.5 - 10.5 mg/dL [facility] Est Glomerular Filtration Rate 15(L) >=60 mL/min/1. 73 m?? [facility] Comment: This patient's estimated GFR [...] MD CHEMISTRY ORDERABLES Performing Organization Address City/[facility] Co de Phone Number [facility] [place] [address] * Sodium, urine, random (02/24/2023 4:00 PM EDT) Sodium, Urine <20 mmol/L [facility] Urine Urine / Unknown 02/24/2023 4 :00 PM EDT 02/24/2023 5:25 PM EDT Narrative Resulting Agency Comment Spec In Lab Deonte Lugo MD URINE ORDERABLES Performing Organization Address [facility] Co de Phone Number [facility] [place] [address] * (ABNORMAL) Protein/Creatinine Ratio, urine (02/24/2023 4:00 PM EDT) Creatinine, Urine 64 mg/dL [facility] Protein, Urine 28(H) 0 - 12 mg/dL [facility] Protein / Creatinine Ratio, Urine 0.4 ratio [facility] Urine 02/24/2023 4:00 PM EDT 02/24/2023 5:25 PM EDT Narrative Resulting Agency Comment Spec In Lab Yolis Crawford MD URINE ORDERABLES Performing Organization Address [facility] Co de Phone Number [facility] [place] [address] * (ABNORMAL) U Albumin/Cre Ratio (02/24/2023 4:00 PM EDT) Albumin / Creatinin Ratio, Urine 196(H) 0 - 29 mcg/mg Cr [facility] Comment: Reference Ranges: <30 mcg/mg: [...] 2, 357? 362 Albumin, Urine 125.5 mg/L [facility] Creatinine, Urine 64 mg/dL [facility] Urine 02/24/2023 4:00 PM EDT 02/24/2023 5:25 PM EDT Narrative Resulting Agency Comment Spec In Lab Yolis Crawford MD URINE ORDERABLES [facility] [place] [address] documented in this encounter Visit Diagnoses Diagnosis Chronic kidney disease, unspecified CKD stage Chronic kidney disease, stage 4 (severe) documented in this encounter Care Teams Bindery Chief Relationship Specialty Start Date End Date Reinier Arceo PA [address] [place] [address] PCP - General Internal Medicine 01/18/23 documented as of this encounter
--- OUTSIDE RECORDS SUMMARY | 2024-02-22 14:57 | XMS_ITS | Encounter Summary ---
Author Organization [facility] Address [facility] [place] [address] Care Team Providers Care Otolaryngology Nurse Name Role Phone Reinier Arceo Primary Care Provider [phone] Encounter Details Date Type Department Care Team [...] 2:20 PM EDT [place] [address] Austin Simon MD [facility] [place] [address] 04/11/2024 11:20 AM EDT Office Visit Dermatology at [facility] [address] [place] [address] Terri Pimentel MD [facility] [address] [place] [address] documented as of this encounter Visit Diagnoses Not on filedocumented in this encounter Care Teams Otolaryngology Nurse Relationship Specialty Start Date End Date Reinier Arceo PA [address] [place] [address] PCP - General Internal Medicine 01/18/23 documented as of this encounter
--- OUTSIDE RECORDS SUMMARY | 2024-02-22 14:57 | XMS_ITS | Encounter Summary ---
Author Organization [facility] Address [facility] [place] [address] Care Team Providers Care Processing Archivist Name Role Phone Reinier Arceo Primary Care Provider [phone] Encounter Details Date Type Department Care Team (Late Contact Info) Description 06/10/2023 Telephone [place] [address] Ava Villegas Social History Tobacco Use Types [...] 2:20 PM EDT [place] [address] Austin Simon MD [facility] [place] [address] 04/11/2024 11:20 AM EDT Office Visit Dermatology at [facility] [address] [place] [address] Terri Pimentel MD [facility] [address] [place] [address] documented as of this encounter Visit Diagnoses Not on filedocumented in this encounter Care Teams Processing Archivist Relationship Specialty Start Date End Date Reinier Arceo PA [address] [place] [address] PCP - General Internal Medicine 01/18/23 documented as of this encounter
--- OUTSIDE RECORDS SUMMARY | 2024-02-22 14:57 | XMS_ITS | Encounter Summary ---
Author Organization [facility] Address [facility] [place] [address] Care Team Providers Care Custom Ski Maker Name Role Phone Reinier Arceo Primary Care Provider [phone] Encounter Details Date Type Department Care Team (Latest Contact Info) Description 06/23/2023 4:00 PM EST Office Visit [place] [address] Deonte Lugo MD [facility] [place] [address] Stage 3b chronic kidney disease (Primary Dx); Stage 3 chronic kidney disease, unspecified whether stage 3a or 3b CKD; Vitamin D deficiency; Hypertension, unspecified type Social History Tobacco Use Types Packs/Day Years Used Date Smoking Tobacco: Never Smokeless Tobacco: Never Tobacco Cessation:Counseling Given: Not Answered Alcohol Use Standard Drinks/Week Comments Never 0 (1 standard drink = 0.6 oz pur e alcohol) [facility] Inpatient Questions Answer Date Recorded [...] included. Nephrology-Hypertension Clinic Follow-up Note Miguel Sanchez [id number] ID: 67 y.o.year-old male for follow up [...] with spacer inhalational spacing device (Chris Aerosol [place] Enhancer) Spacer by [facility] [place] [place].(Non- Drug; Combo Route) route. nitroGLYcerin (Nitrostat) 0.4 [...] Visit from 06/23/2023 in Nephrology Hypertension at [facility] Weight 83.5 kg (184 lb) Height 165.1 [...] in the past but never in a [facility] (I don't have access to these [...] as documented. Reina Yang MD Nephrology Pager: [phone] documented in this encounter Plan of Treatment Upcoming Encounters Date Type Department Care Team (Late st Contact Info) Description 04/06/2024 2:20 PM EDT [place] [address] Austin Simon MD [facility] [place] [address] 04/11/2024 11:20 AM EDT Office Visit Dermatology at [facility] [address] [place] [address] Terri Pimentel MD [facility] [address] [place] [address] documented as of this encounter Results * Uric acid (06/23/2023 2:43 PM EST) Pathologist [facility] Uric Acid 7.7 3.5 - 8.5 mg/dL [facility] Blood 06/23/2023 2:43 PM EST 06/23/2023 2:49 PM EST Narrative Resulting Agency Comment Spec In Lab Abel Brantley MD CHEMISTRY ORDERABLES Performing Organization Address [facility] Co de Phone Number [facility] [place] [address] * Phosphorus (06/23/2023 2:43 PM EST) [facility] Phosphorus 3.4 2.5 - 4.5 mg/dL [facility] Blood 06/23/2023 2:43 PM EST 06/23/2023 2:49 PM EST Narrative Resulting Agency Comment Spec In Lab Abel Brantley MD CHEMISTRY ORDERABLES Performing Organization Address [facility] Co de Phone Number [facility] [place] [address] * Albumin Level (06/23/2023 2:43 PM EST) Pathologist [facility] Albumin 3.8 3.2 - 5.2 g/dL [facility] Blood 06/23/2023 2:43 PM EST 06/23/2023 2:49 PM EST Narrative Resulting Agency Comment Spec In Lab Abel Brantley MD CHEMISTRY ORDERABLES Performing Organization Address [facility] Co de Phone Number [facility] [place] [address] * (ABNORMAL) Free Light Chains, Serum (06/23/2023 2:43 PM EST) Pathologist [facility] [place] Free Light Chain 7.48(H) 0.72 - 2.75 mg/dL [facility] Lambda Free Light Chain 4.87(H) 0.57 - 2.15 mg/dL [facility] [place]/Lambda FLC Ratio 1.5359 0.4000 - 2.5800 [facility] Blood 06/23/2023 2:43 PM EST 06/23/2023 2:49 PM EST Narrative Resulting Agency Comment Spec In Lab Abel Brantley MD CHEMISTRY ORDERABLES Performing Organization Address [facility]/ZIP Co de Phone Number [facility] [place] [address] * (ABNORMAL) Iron and TIBC (06/23/2023 2:43 PM EST) Iron 53 45 - 160 mcg/dL [facility] TIBC 170(L) 250 - 450 mcg/dL [facility] Iron Saturation 31 20 - 50 % [facility] Blood 06/23/2023 2:43 PM EST 06/23/2023 2:49 PM EST Narrative Resulting Agency Comment Spec In Lab Abel Brantley MD CHEMISTRY ORDERABLES Performing Organization Address City/[facility] Co de Phone Number [facility] [place] [address] * (ABNORMAL) Cystatin C (06/23/2023 2:43 PM EST) Cystatin C (OCTOBER) 2.81(H) 0.67 - 1.21 mg/L [facility] Comment: Test Performed by: [facility] [place] [address] Nurse Leader: Jimmy Zavala M.D. Ph.D.; CLIA# [id number] Cystatin C Egfr (OCTOBER) 19(L) >60 mL/min/BS A [facility] Comment: Estimated GFR calculated using [...] with the new assay. Test Performed by: [facility] - [address] [address] Nurse Leader: Jimmy Zavala M.D. Ph.D.; CLIA# [id number] Blood 06/23/2023 2:43 PM EST 06/23/2023 4:05 PM EST Narrative Resulting Agency Comment Spec In Lab Abel Brantley MD LAB SEND OUT ORDERAB LES Performing Organization Address [facility] Co de Phone Number [facility] [place] [address] * (ABNORMAL) Vitamin D, 25-Hydroxy (06/23/2023 2:43 PM EST) Vitamin D Total 25 OH 13(L) 21 - 100 ng/mL [facility] Vit D Interp Deficient [facility] Blood 06/23/2023 2:43 PM EST 06/23/2023 2:49 PM EST Narrative Resulting Agency Comment Spec In Lab Abel Brantley MD CHEMISTRY ORDERABLES Performing Organization Address [facility] Co de Phone Number [facility] [place] [address] * (ABNORMAL) Ferritin (06/23/2023 2:43 PM EST) Ferritin 596(H) 31 - 409 ng/mL [facility] Comment: Please note that as of 06/02/2023, the reference intervals for Ferritin have been updated. Blood 06/23/2023 2:43 PM EST 06/23/2023 2:49 PM EST Narrative Resulting Agency Comment Spec In Lab Abel Brantley MD CHEMISTRY ORDERABLES Performing Organization Address [facility] Co de Phone Number [facility] [place] [address] * (ABNORMAL) PTH (06/23/2023 2:43 PM EST) Parathyroid Hormone 110(H) 15 - 65 pg/mL [facility] Blood 06/23/2023 2:43 PM EST 06/23/2023 2:49 PM EST Narrative Resulting Agency Comment Spec In Lab Abel Butler Karon OTT CHEMISTRY ORDERABLES [facility] [place] [address] * (ABNORMAL) Basic Metabolic Panel (non-fasting) (06/23/2023 2:43 PM EST) Glucose 110 65 - 199 mg/dL [facility] Comment:Diabetes: >=200 mg/d L plus symptoms Blood Urea Nitrogen 17 10 - 20 mg/dL [facility] Creatinine 2.10(H) 0.80 - 1.50 mg/dL [facility] Sodium 134(L) 135 - 145 mmol/L [facility] Potassium 4.7 3.5 - 5.0 mmol/L [facility] Comment: Please note: ??Patients with WBC >100,000 may have falsely elevated Potassium levels. ??For accurate Potassium quantification in these patients send serum separator tube (gold top) for subsequent determinations. ??Contact the Clinical Chemistry Laboratory if there are any questions. Chloride 101 98 - 107 mmol/L [facility] Carbon Dioxide 20(L) 22 - 31 mmol/L [facility] Anion Gap 13 5 - 15 mmol/L [facility] Calcium 8.9 8.5 - 10.5 mg/dL [facility] Est Glomerular Filtration Rate 34(L) >=60 mL/min/1. 73 m?? [facility] Comment: This patient's estimated GFR [...] In Lab Abel Brantley MD CHEMISTRY ORDERABLES [facility] [place] [address] documented in this encounter Visit Diagnoses Diagnosis Stage 3b chronic kidney disease- Primary Stage 3 chronic kidney disease, unspecified whether stage 3a or 3b CKD Vitamin D deficiency Unspecified vitamin D deficiency Hypertension, unspecified type documented in this encounter Care Teams Custom Ski Maker Relationship Specialty Start Date End Date Reinier Arceo PA [address] [place] [address] PCP - General Internal Medicine 01/18/23 documented as of this encounter
--- OUTSIDE RECORDS SUMMARY | 2024-02-22 14:57 | XMS_ITS | Encounter Summary ---
[place] [address] Care Team Providers Care Livestock Nutrition Territory Manager Name Role Phone Reinier Arceo Primary Care Provider [phone] Reason for Referral * Diagnostic Test (Routine) - Closed Specialty Diagnoses / Procedures Referred By Fady park Referred To Contact Radiology Diagnoses Benign prostatic hyperplasia with urinary retention Scrotal swelling Procedures CT Pelvis Soft Tissue (GI GLASS MOLD REPAIRER) wo Contrast Meche Donato APRN [facility] [place] [address] [facility] [place] [address] Referral ID Status Reason Start Date Expiration Date V isits Requested Visits Authorized [id number] Closed Specialty Service Requested 07/07/2023 01/04/2025 1 1 Reason for Visit * Consultation (Routine) - Authorized Specialty Diagnoses / Procedures Referred By aFdy park Referred To Contact Urology Diagnoses Benign prostatic hyperplasia with lower urinary tract symptoms, symptom details unspecified Other retention of urine Tiffanie Muñoz APRN [address] [place] [address] [facility] [place] [address] Referral ID Status Reason Start Date Expiration Date Visits Requested Visits Authorized [id number] Authorized Consult, Test & Treat PCP Updated and/or Approved 06/01/2023 05/31/2024 6 6 Encounter Details Date Type Department Care Team ([facility] st Contact Info) Description 07/07/2023 11:20 AM EST [place] [address] Meche Donato APRN [facility] [place] [address] Screening PSA (prostate specific antigen); Benign prostatic [...] this encounter Progress Notes * Meche Donato, FILM HISTORIAN - 07/07/2023 11:20 AM EST [facility] SECTION OF UROLOGY UROLOGY [...] retention was initially discovered when presenting to [facility] ER for SOB and CHF exacerbation.He was [...] has been undergoing monthly catheter exchanges at [facility] Urology, last documented void trial was [...] TIMES DAILY inhalational spacing device (Chris Aerosol [place] Enhancer) Spacer Misc.(Non-Drug; Combo Route) ketoconazole (Nizoral) [...] like to do repeat void trial at [facility] at time of next alfaro exchange. [...] satisfaction. Meche Donato APRN Section of Urology [facility] documented in this encounter Plan of Treatment Upcoming Encounters Date Type Department Care Team (Late st Contact Info) Description 04/06/2024 2:20 PM EDT [place] [address] Austin Simon MD [facility] [place] [address] 04/11/2024 11:20 AM EDT Office Visit Dermatology at [address] [address] Terri Pimentel MD [facility] DR [address] [address] documented as of this encounter Procedures Procedure Name Priority Date/Time Associated Diagnosis Comments PSA SCREEN Routine 07/07/2023 12:21 PM EST Screening PSA (prostate specific antigen) documented in this encounter Results * CT Pelvis Soft Tissue (GI GLASS MOLD REPAIRER) wo Contrast (09/14/2023 1:38 PM EDT) Anatomical [...] who have questions please contact the health home care specialist that requested your imaging first. ? Narrative 09/14/2023 4:39 PM EDT EXAMINATION: CT PELVIS SOFT TISSUE (GI GLASS MOLD REPAIRER) WO CONTRAST CLINICAL HISTORY: prostate sizing and [...] 09/14/2023 EXAMINATION: CT PELVIS SOFT TISSUE (GI GLASS MOLD REPAIRER) WO CONTRAST CLINICAL HISTORY: prostate sizing and [...] patients who have questions please contactthe health home care specialist that requested your imaging first. Meche A Begnoche FILM HISTORIAN IMG CT ORDERABLES * PSA Screen (07/07/2023 12:21 PM EST) PSA Screen 1.62 0.00 - 4.00 ng/mL [facility] Comment: PLEASE NOTE: The above reference [...] Agency Comment Spec In Lab Meche Donato FILM HISTORIAN CHEMISTRY ORDERABLE S [facility] [place] [address] documented in this encounter Visit Diagnoses Diagnosis Screening PSA (prostate specific antigen) Special screening for malignant neoplasm of prostate Benign prostatic hyperplasia with urinary retention Scrotal swelling Edema of male genital organs Benign prostatic hyperplasia with urinary retention Scrotal swelling Edema of male genital organs documented in this encounter Care Teams Livestock Nutrition Territory Manager Relationship Specialty Start Date End Date Reinier Arceo PA [address] [place] [address] PCP - General Internal Medicine 01/18/23 documented as of this encounter
--- OUTSIDE RECORDS SUMMARY | 2024-02-22 14:57 | XMS_ITS | Encounter Summary ---
Author Organization [facility] [place] [address] Care Team Providers Care Oracle Apex Developer Name Role Phone Reinier Arceo Primary Care Provider [phone] Encounter Details Date Type Department Care Team (Latest Contact Info) Description 08/04/2023 1:05 PM EST Laboratory Appointment Lab [address] [place] [address] Chronic kidney disease, unspecified CKD stage Social [...] 2:20 PM EDT [place] [address] Austin Simon MD [facility] [place] [address] 04/11/2024 11:20 AM EDT Office Visit Dermatology at [facility] [address] [place] [address] Terri Pimentel MD [facility] [place] [address] documented as of this encounter Procedures Procedure Name Priority Date/Time Associated Diagnosis Comments PHOSPHORUS Routine 08/04/2023 12:55 PM EST Chronic kidney disease, unspecified CKD stage BASIC METABOLIC PANEL Routine 08/04/2023 12:55 PM EST Chronic kidney disease, unspecified CKD stage documented in this encounter Results * (ABNORMAL) Basic Metabolic Panel (non-fasting) (08/04/2023 12:55 PM EST) Glucose 153 65 - 199 mg/dL [facility] Comment:Diabetes: >=200 mg/d L plus symptoms Blood Urea Nitrogen 17 10 - 20 mg/dL [facility] Creatinine 2.02(H) 0.80 - 1.50 mg/dL [facility] Sodium 134(L) 135 - 145 mmol/L [facility] Potassium 4.8 3.5 - 5.0 mmol/L [facility] Comment: Please note: ??Patients with WBC >100,000 may have falsely elevated Potassium levels. ??For accurate Potassium quantification in these patients send serum separator tube (gold top) for subsequent determinations. ??Contact the Clinical Chemistry Laboratory if there are any questions. Chloride 98 98 - 107 mmol/L [facility] Carbon Dioxide 23 22 - 31 mmol/L [facility] Anion Gap 13 5 - 15 mmol/L [facility] Calcium 9.6 8.5 - 10.5 mg/dL [facility] Est Glomerular Filtration Rate 35(L) >=60 mL/min/1. 73 m?? [facility] Comment: This patient's estimated GFR was [...] ORDERABLES Performing Organization Address City/[facility] Co de Phone Number [facility] [place] [address] * Phosphorus (08/04/2023 12:55 PM EST) Phosphorus 3.4 2.5 - 4.5 mg/dL [facility] Blood 08/04/2023 12:5 5 PM EST 08/04/2023 1:44 PM EST Narrative Resulting Agency Comment Spec In Lab Abel Brantley MD CHEMISTRY ORDERABLES Performing Organization Address [facility] [place] [address] documented in this encounter Visit Diagnoses Diagnosis Chronic kidney disease, unspecified CKD stage documented in this encounter Care Teams Oracle Apex Developer Relationship Specialty Start Date End Date Reinier Arceo PA [address] [place] [address] PCP - General Internal Medicine 01/18/23 documented as of this encounter
--- OUTSIDE RECORDS SUMMARY | 2024-02-22 14:57 | XMS_ITS | Encounter Summary ---
Author Organization [facility] [place] [address] Care Team Providers Care Upper Leather Sorter Name Role Phone Reinier Arceo Primary Care Provider [phone] Encounter Details Date Type Department Care Team (Latest Contact Info) Description 06/23/2023 2:30 PM EST Laboratory Appointment Lab [address] [place] [phone] Chronic kidney disease, unspecified CKD stage; Stage [...] 2:20 PM EDT [place] [phone] Austin Simon MD [facility] [place] [address] 04/11/2024 11:20 AM EDT Office Visit Dermatology at [facility] [address] [place] [address] Terri Pimentel MD [facility] [address] [address] documented as of this encounter Procedures Procedure [...] * Differential, Automated (06/23/2023 2:43 PM EST) Neutrophil % 69.8 % [facility] Neutrophil Absolute 5.06 1.70 - 6.10 x10(3)/[facility] LAB[facility] Lymph % 19.0 % [facility] Lymphocytes Abs 1.4 0.9 - 3.2 x10(3)/[facility] LAB[facility] Monocyte % 8.1 % [facility] Monocyte Abs 0.6 0.3 - 0.9 x10(3)/[facility] LAB[facility] Eos % 1.8 % [facility] Eosinophils Abs 0.1 0.0 - 0.4 x10(3)/[facility] LAB[facility] Basophil % 1.0 % [facility] Baso Absolute 0.1 0.0 - 0.1 x10(3)/[facility] LAB[facility] Immature Gran % 0.30 % [facility] Comment: Immature granulocytes(IG's)percentage and absolute count will include metamyelocytes, myelocytes, and promyelocytes. Blood smears from CBCs yielding IG's will be scanned manually for concordance. If this scan disagrees with the automated IG or if promyelocytes are noted, a manual differential will be performed. Immature Gran Absolute 0.02 0.00 - 0.04 x10(3)/[facility] Blood 06/23/2023 2:43 PM EST 06/23/2023 2:49 PM EST Narrative Resulting Agency Comment Spec In Lab Deonte Lugo MD HEMATOLOGY ORDERABL ES [facility] [place] [address] * (ABNORMAL) Hemogram (06/23/2023 2:43 PM EST) White Blood Cell 7.2 4.0 - 9.5 x10(3)/mc L [facility] Red Blood Cell 4.16(L) 4.58 - 5.54 x10(6)/mc L [facility] Hemoglobin 12.1(L) 13.7 - 16.5 g/dL [facility] Hematocrit 35.6(L) 40.5 - 48.5 % [facility] Mean Cell Volume 85.6 82.9 - 93.1 fL [facility] Mean Cell Hemoglobin 29.1 27.5 - 32.1 pg [facility] Mean Cell Hemoglobin Concentration 34.0 32.0 - 35.7 g/dL [facility] Platelet 205 145 - 357 x10(3)/mc L [facility] RDW Standard Deviation 42.2 36.0 - 45.0 fL [facility] RDW coefficient of variation 13.6 11.4 - 13.8 % [facility] Mean Platelet Volume 12.1 7.6 - 12.9 fL [facility] NRBC% auto 0.0 % [facility] NRBC Absolute 0.000 0.000 - 0.000 x10(3)/ L [facility] Blood 06/23/2023 2:43 PM EST 06/23/2023 2:49 PM EST Narrative Resulting Agency Comment Spec In Lab Deonte Lugo MD HEMATOLOGY ORDERABL ES Performing Organization Address City/State/[facility] Co de Phone Number [facility] [place] [address] * (ABNORMAL) Basic Metabolic Panel (non-fasting) (06/23/2023 2:43 PM EST) Glucose 110 65 - 199 mg/dL [facility] Comment:Diabetes: >=200 mg/d L plus symptoms Blood Urea Nitrogen 17 10 - 20 mg/dL [facility] Creatinine 2.10(H) 0.80 - 1.50 mg/dL [facility] Sodium 134(L) 135 - 145 mmol/L [facility] Potassium 4.7 3.5 - 5.0 mmol/L [facility] Comment: Please note: ??Patients with WBC >100,000 may have falsely elevated Potassium levels. ??For accurate Potassium quantification in these patients send serum separator tube (gold top) for subsequent determinations. ??Contact the Clinical Chemistry Laboratory if there are any questions. Chloride 101 98 - 107 mmol/L [facility] Carbon Dioxide 20(L) 22 - 31 mmol/L [facility] Anion Gap 13 5 - 15 mmol/L [facility] Calcium 8.9 8.5 - 10.5 mg/dL [facility] Est Glomerular Filtration Rate 34(L) >=60 mL/min/1. 73 m?? [facility] Comment: This patient's estimated GFR [...] In Lab Abel Brantley MD CHEMISTRY ORDERABLES [facility] [place] [address] * (ABNORMAL) PTH (06/23/2023 2:43 PM EST) Parathyroid Hormone 110(H) 15 - 65 pg/mL [facility] Blood 06/23/2023 2:43 PM EST 06/23/2023 2:49 PM EST Narrative Resulting Agency Comment Spec In Lab Abel A Karon OTT CHEMISTRY ORDERABLES [facility] [place] [address] * (ABNORMAL) Ferritin (06/23/2023 2:43 PM EST) Ferritin 596(H) 31 - 409 ng/mL [facility] Comment: Please note that as of 06/02/2023, the reference intervals for Ferritin have been updated. Blood 06/23/2023 2:43 PM EST 06/23/2023 2:49 PM EST Narrative Resulting Agency Comment Spec In Lab Abel Brantley MD CHEMISTRY ORDERABLES Performing Organization Address City/[facility]/ZIP Co de Phone Number [facility] [place] [address] * (ABNORMAL) Vitamin D, 25-Hydroxy (06/23/2023 2:43 PM EST) Vitamin D Total 25 OH 13(L) 21 - 100 ng/mL [facility] Vit D Interp Deficient [facility] Blood 06/23/2023 2:43 PM EST 06/23/2023 2:49 PM EST Narrative Resulting Agency Comment Spec In Lab Abel Brantley MD CHEMISTRY ORDERABLES Performing Organization Address [facility] Co de Phone Number [facility] [place] [address] * (ABNORMAL) Cystatin C (06/23/2023 2:43 PM EST) Cystatin C (OCTOBER) 2.81(H) 0.67 - 1.21 mg/L [facility] Comment: Test Performed by: [place] [address] Glass Unloading Equipment Tender: Jimmy Zavala M.D. Ph.D.; CLIA# [id number] Cystatin C Egfr (OCTOBER) 19(L) >60 mL/min/BS A [facility] Comment: Estimated GFR calculated using [...] with the new assay. Test Performed by: [place] [id number] Glass Unloading Equipment Tender: Jimmy Zavala M.D. Ph.D.; CLIA# [id number] Blood 06/23/2023 2:43 PM EST 06/23/2023 4:05 PM EST Narrative Resulting Agency Comment Spec In Lab Abel Brantley MD LAB SEND OUT ORDERAB LES Performing Organization Address City/[facility]/ZIP Co de Phone Number [facility] [place] [address] * (ABNORMAL) Iron and TIBC (06/23/2023 2:43 PM EST) Pathologist [facility] Iron 53 45 - 160 mcg/dL [facility] TIBC 170(L) 250 - 450 mcg/dL [facility] Iron Saturation 31 20 - 50 % [facility] Blood 06/23/2023 2:43 PM EST 06/23/2023 2:49 PM EST Narrative Resulting Agency Comment Spec In Lab Abel Brantley MD CHEMISTRY ORDERABLES Performing Organization Address [facility] Co de Phone Number [facility] [place] [address] * (ABNORMAL) Free Light Chains, Serum (06/23/2023 2:43 PM EST) Pathologist [facility] Manteno Free Light Chain 7.48(H) 0.72 - 2.75 mg/dL [facility] Lambda Free Light Chain 4.87(H) 0.57 - 2.15 mg/dL [facility] Manteno/Lambda FLC Ratio 1.5359 0.4000 - 2.5800 [facility] Blood 06/23/2023 2:43 PM EST 06/23/2023 2:49 PM EST Narrative Resulting Agency Comment Spec In Lab Abel Brantley MD CHEMISTRY ORDERABLES Performing Organization Address [facility] Co de Phone Number [facility] [place] [address] * Albumin Level (06/23/2023 2:43 PM EST) Pathologist [facility] Albumin 3.8 3.2 - 5.2 g/dL [facility] Blood 06/23/2023 2:43 PM EST 06/23/2023 2:49 PM EST Narrative Resulting Agency Comment Spec In Lab Abel Brantley MD CHEMISTRY ORDERABLES Performing Organization Address City/[facility] Co de Phone Number [facility] [place] [address] * Phosphorus (06/23/2023 2:43 PM EST) Phosphorus 3.4 2.5 - 4.5 mg/dL [facility] Blood 06/23/2023 2:43 PM EST 06/23/2023 2:49 PM EST Narrative Resulting Agency Comment Spec In Lab Abel Brantley MD CHEMISTRY ORDERABLES Performing Organization Address [facility] Phone Number [facility] [place] [address] * Uric acid (06/23/2023 2:43 PM EST) Uric Acid 7.7 3.5 - 8.5 mg/dL [facility] Blood 06/23/2023 2:43 PM EST 06/23/2023 2:49 PM EST Narrative Resulting Agency Comment Spec In Lab Abel Brantley MD CHEMISTRY ORDERABLES Performing Organization Address [facility] de Phone Number [facility] [place] [address] documented in this encounter Visit Diagnoses Diagnosis Chronic kidney disease, unspecified CKD stage Stage 3 chronic kidney disease, unspecified whether stage 3a or 3b CKD documented in this encounter Care Teams Upper Leather Sorter Relationship Specialty Start Date End Date Reinier Arceo PA [address] [place] [address] PCP - General Internal Medicine 01/18/23 documented as of this encounter
--- OUTSIDE RECORDS SUMMARY | 2024-02-22 14:57 | XMS_ITS | Encounter Summary ---
Author Organization [facility] Address [facility] [place] [address] Care Team Providers Care Financial Service Professional Name Role Phone Reinier Arceo Primary Care Provider [phone] Encounter Details Date Type Department Care Team (Latest Contact Info) Description 08/04/2023 2:30 PM EST Office Visit Neph[place] [address] Reina Yang MD [facility] [place] [place] [address] Chronic kidney disease, unspecified CKD stage; Vitamin D deficiency; Anemia, unspecified type; Elevated ferritin; Secondary hyperparathyroidism of renal origin; Metabolic acidosis; Hyponatremia; Blood albumin decreased compared with prior measurement Social History Tobacco Use Types Packs/Day Years Used Date Smoking Tobacco: Never Smokeless Tobacco: Never Alcohol Use Standard Drinks/Week Comments Never 0 (1 standard drink = 0.6 oz pur e alcohol) [facility] Inpatient Questions Answer Date Recorded [...] doesn't matter. [facility] documented in this encounter Progress Notes * Reina Yang MD - 08/04/2023 2:30 PM EST [facility] PRIMARY CARE PROVIDER: ELSIE Espinoza BREWERY CELLAR WORKER: Deonte Lugo MD HISTORY OF PRESENT ILLNESS: [...] 06/23/23 2:43 PM Result Value Ref Range Declo Free Light Chain 7.48 (H) 0.72 - 2.75 mg/dL Lambda Free Light Chain 4.87 (H) 0.57 - 2.15 mg/dL Declo Lambda FLC Ratio 1.5359 0.4000 - 2.5800 [...] - Calcium and phosphorus are at goal. [id number]-Oomkscc D is very low. Reportedly on ergocalciferol [...] plan, and coordinating care. Reina Yang MD [facility] Nephrology and Hypertension [facility], [address] [place] [address] E-mail: [email or web address] documented in this encounter Plan of Treatment Upcoming Encounters Date Type Department Care Team (Late st Contact Info) Description 04/06/2024 2:20 PM EDT Procedure [place] [address] Austin Simon MD [facility] [place] [address] 04/11/2024 11:20 AM EDT Office Visit Dermatology at [address] [phone] Terri Pimentel MD [facility] [address] [place] [address] documented as of this encounter Results * Phosphorus (08/04/2023 12:55 PM EST) [facility] Phosphorus 3.4 2.5 - 4.5 mg/dL [facility] Blood 08/04/2023 12:5 5 PM EST 08/04/2023 1:44 PM EST Narrative Resulting Agency Comment Spec In Lab Abel Brantley MD CHEMISTRY ORDERABLES [facility] [place] [address] * (ABNORMAL) Basic Metabolic Panel (non-fasting) (08/04/2023 12:55 PM EST) Glucose 153 65 - 199 mg/dL [facility] Comment:Diabetes: >=200 mg/d L plus symptoms Blood Urea Nitrogen 17 10 - 20 mg/dL [facility] Creatinine 2.02(H) 0.80 - 1.50 mg/dL [facility] Sodium 134(L) 135 - 145 mmol/L [facility] Potassium 4.8 3.5 - 5.0 mmol/L [facility] Comment: Please note: ??Patients with WBC >100,000 may have falsely elevated Potassium levels. ??For accurate Potassium quantification in these patients send serum separator tube (gold top) for subsequent determinations. ??Contact the Clinical Chemistry Laboratory if there are any questions. Chloride 98 98 - 107 mmol/L [facility] Carbon Dioxide 23 22 - 31 mmol/L [facility] Anion Gap 13 5 - 15 mmol/L [facility] Calcium 9.6 8.5 - 10.5 mg/dL [facility] Est Glomerular Filtration Rate 35(L) >=60 mL/min/1. 73 m?? [facility] Comment: This patient's estimated GFR was [...] In Lab Abel Brantley MD CHEMISTRY ORDERABLES [facility] [place] [address] documented in this encounter Visit Diagnoses Diagnosis Chronic kidney disease, unspecified CKD stage Vitamin D deficiency Unspecified vitamin D deficiency Anemia, unspecified type Elevated ferritin Other abnormal blood chemistry Secondary hyperparathyroidism of renal origin Secondary hyperparathyroidism (of renal origin) Metabolic acidosis Acidosis Hyponatremia Hyposmolality and/or hyponatremia Blood albumin decreased compared with prior measurement documented in this encounter Care Teams Financial Service Professional Relationship Specialty Start Date End Date Reinier Arceo PA [address] [place] [address] PCP - General Internal Medicine 01/18/23 documented as of this encounter
--- OUTSIDE RECORDS SUMMARY | 2024-02-22 14:57 | XMS_ITS | Encounter Summary ---
Author Organization [facility] Address [facility] [place] [address] Care Team Providers Care Heel Cementer Machine Name Role Phone Reinier Arceo Primary Care Provider [phone] Encounter Details Date Type Department Care Team [...] 2:20 PM EDT [place] [address] Austin Simon MD [facility] [place] [address] 04/11/2024 11:20 AM EDT Office Visit Dermatology at [facility] [address] [place] [address] Terri Pimentel MD [facility] [address] [address] documented as of this encounter Visit Diagnoses Not on filedocumented in this encounter Care Teams Heel Cementer Machine Relationship Specialty Start Date End Date Reinier Arceo PA [address] [place] [address] PCP - General Internal Medicine 01/18/23 documented as of this encounter
--- OUTSIDE RECORDS SUMMARY | 2024-02-22 14:57 | XMS_ITS | Encounter Summary ---
Author Organization [facility] [place] [address] Care Team Providers Care Encephalographer Name Role Phone Reinier Arceo Primary Care Provider [phone] Reason for Visit * Reason Onset Date Comments Medication Refill 07/12/2023 Encounter Details Date Type Department Care Team (Late st Contact Info) Description 07/12/2023 Telephone Urology at [facility] [place] [address] Martin Elizabeth, bench assembler operator Refill Social History Tobacco Use Types Packs/Day Years Used Date Smoking Tobacco: Never Smokeless Tobacco: Never Alcohol Use Standard Drinks/Week Comments Never 0 (1 standard drink = 0.6 oz pur e alcohol) [facility] Inpatient Questions Answer Date Recorded [...] like to do repeat void trial at [facility] at time of next alfaro exchange. We [...] 2:20 PM EDT [place] [address] [facility] [address] 04/11/2024 11:20 AM EDT Office Visit Dermatology at [place] [address] [place] [address] [facility] [address] [place] [address] documented as of this encounter Visit Diagnoses Not on filedocumented in this encounter Care Teams Encephalographer Relationship Specialty Start Date End Date Reinier Arceo PA [address] [place] [address] PCP - General Internal Medicine 01/18/23 documented as of this encounter
--- OUTSIDE RECORDS SUMMARY | 2024-02-22 14:57 | XMS_ITS | Encounter Summary ---
Author Organization [facility] Address [facility] [place] [id number] Care Team Providers Care Skein Winder Name Role Phone Reinier Arceo Primary Care Provider [phone] Reason for Referral * Consultation (Routine) - Authorized Specialty Diagnoses / Procedures Referred By Contact Referred To Contact Electrophysiology / Cardiology Diagnoses HFrEF (heart failure with reduced ejection fraction) AICD consideration for HFrEF 29%, Etiology unknown. Please see note Freedom Sunshine MD [facility] [place] [address] [facility] [address] [place] [id number] Referral ID Status Reason Start Date Expiration Date Visits Requested Visits Authorized [id number] Authorized Consult, Test & Treat 04/28/2023 04/27/2024 1 1 Encounter Details Date Type Department Care Team (Late st Contact Info) Description 04/28/2023 2:00 PM EDT Office Visit Cardiology at [address] [phone] Marvin Ba MD [facility] [place] [address] Freedom Sunshine MD [facility] [place] [address] HFrEF (heart failure with reduced ejection fraction) [...] not included. [facility] [place] [address] CARDIOLOGY OUTPATIENT CLINIC VISIT [facility] Miguel Sanchez 04/28/2023 Referring Providers: ELSIE Espinoza Patrick, PA [address] [place] [address] CHIEF COMPLAINT: CHF Dear ELSIE Nolan [address] [place] [address] HISTORY OF PRESENT ILLNESS: Miguel Sanchez is a 67 y.o. male patient presenting for an outpatient cardiology visit. 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 At the time, [...] mouth daily. inhalational spacing device (Chris Aerosol Talbot Enhancer) Spacer by [facility].(Non- Drug; Combo Route) route. magnesium hydroxide (Milk [...] Miguel Sanchez. Sincerely, Freedom Sunshine MD Interventional Enrollment Services Vice President 04/28/2023 CC: ELSIE Espinoza I have seen [...] 2:20 PM EDT [place] [address] Austin Simon MD [facility] [place] [address] 04/11/2024 11:20 AM EDT Office Visit Dermatology at [facility] [address] [place] [phone] Terri Pimentel MD [facility] DR [address] [place] [address] Scheduled Referrals Name Type Priority Associated Diagnoses Order Schedule Referral to Cardiac Electrophysiology Outpatient Referral Routine HFrEF (heart failure with reduced ejection fraction) Ordered: 04/28/2023 documented as of this encounter Visit Diagnoses Diagnosis HFrEF (heart failure with reduced ejection fraction) documented in this encounter Care Teams Skein Winder Relationship Specialty Start Date End Date Reinier Arceo PA [address] [place] [address] PCP - General Internal Medicine 01/18/23 documented as of this encounter
--- OUTSIDE RECORDS SUMMARY | 2024-02-22 14:57 | XMS_ITS | Encounter Summary ---
Author Organization [facility] Address [facility] [place] [address] Care Team Providers Care Winder Operator Name Role Phone Reinier Arceo Primary Care Provider [phone] Encounter Details Date Type Department Care Team (Late Contact Info) Description 07/02/2023 Telephone [place] [phone] Ava Villegas Social History Tobacco Use Types Packs/Day Years Used Date Smoking Tobacco: Never Smokeless Tobacco: Never Alcohol Use Standard Drinks/Week Comments Never 0 (1 standard drink = 0.6 oz pur e alcohol) [facility] Inpatient Questions Answer Date [...] 2:20 PM EDT [place] [address] Austin Simon MD [facility] [place] [address] 04/11/2024 11:20 AM EDT Office Visit Dermatology at [facility] [address] [place] [address] Terri Pimentel MD [facility] [place] [address] documented as of this encounter Visit Diagnoses Not on filedocumented in this encounter Care Teams Winder Operator Relationship Specialty Start Date End Date Reinier Arceo PA [address] [place] [address] PCP - General Internal Medicine 01/18/23 documented as of this encounter
--- OUTSIDE RECORDS SUMMARY | 2024-02-22 14:57 | XMS_ITS | Encounter Summary ---
Author Organization [facility] Address [facility] [place] [address] Care Team Providers Care Ballet Teacher Name Role Phone Reinier Arceo Primary Care Provider [phone] Encounter Details Date Type Department Care Team [...] 2:20 PM EDT [place] [address] Austin Simon MD [facility] [place] [address] 04/11/2024 11:20 AM EDT Office Visit Dermatology at [facility] [address] [place] [address] Terri Pimentel MD [facility] [address] [address] documented as of this encounter Visit Diagnoses Not on filedocumented in this encounter Care Teams Ballet Teacher Relationship Specialty Start Date End Date Reinier Arceo PA [address] [place] [address] PCP - General Internal Medicine 01/18/23 documented as of this encounter
--- OUTSIDE RECORDS SUMMARY | 2024-02-22 14:57 | XMS_ITS | Encounter Summary ---
[place] [address] Care Team Providers Care Inverter And Clipper Name Role Phone Reinier Arceo Primary Care Provider [phone] Reason for Referral * Consultation (Routine) - Authorized Specialty Diagnoses / Procedures Referred By [facility] Referred To Contact Urology Diagnoses Benign prostatic hyperplasia with lower urinary tract symptoms, symptom details unspecified Other retention of urine Tiffanie Muñoz APRN [address] [place] [address] [facility] [place] [address] Referral ID Status Reason Start Date Expiration Date Visits Requested Visits Authorized [id number] Authorized Consult, Test & Treat PCP Updated and/or Approved 06/01/2023 05/31/2024 6 6 Encounter Details Date Type Department Care Team (Latest Contact Info) Description 06/01/2023 Transcribe Orders eDH Incoming Referrals [phone] Tiffanie Muñoz APRN [address] [place], [place] [id number] Benign prostatic hyperplasia with lower urinary tract symptoms, symptom details unspecified; Other retention of urine Social History Tobacco Use Types Packs/Day Years Used Date Smoking Tobacco: Never Alcohol Use Standard Drinks/Week Comments Never 0 (1 standard drink = 0.6 oz pur e alcohol) [facility] Inpatient Questions Answer Date Recorded Does Anyone [...] 2:20 PM EDT [place] [address] Austin Simon MD [facility] [place] [address] 04/11/2024 11:20 AM EDT Office Visit Dermatology at [facility] [address] [place] [id number] Terri Pimentel MD [facility] [address] [place] [address] Scheduled Referrals Name Type Priority Associated Diagnoses Orde r Schedule Referral to Urology Outpatient Referral Routine Benign prostatic hyperplasia with lower urinary tract symptoms, symptom details unspecified Other retention of urine Ordered: 06/01/2023 documented as of this encounter Visit Diagnoses Diagnosis Benign prostatic hyperplasia with lower urinary tract symptoms, symptom details unspecified Other retention of urine documented in this encounter Care Teams Inverter And Clipper Relationship Specialty Start Date End Date Reinier Arceo PA [address] [place] [address] PCP - General Internal Medicine 01/18/23 documented as of this encounter
--- OUTSIDE RECORDS SUMMARY | 2024-02-22 14:58 | XMS_ITS | Encounter Summary ---
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 Name Role Phone Reinier Arceo Primary Care Provider [phone] Reason for Referral * Consultation (Routine) - Closed Specialty Diagnoses / Procedures Referred By Contac t Referred To Contact Urology Diagnoses Acute kidney injury Mendel Luna MD [facility] [place] [address] [facility] [place] [address] Referral ID Status Reason Start Date Expiration Date V isits Requested Visits Authorized [id number] Closed Consult, Test & Treat 01/26/2023 01/26/2024 1 1 * Home Health Care (Routine) - Closed Specialty Diagnoses / Procedures Referred By Contac t Referred To Contact Diagnoses Acute kidney injury Mendel Luna MD [facility] [place] [address] [facility] [place] [address] Referral ID Status Reason Start Date Expiration Date V isits Requested Visits Authorized [id number] Closed Consult, Test & Treat 01/26/2023 07/25/2023 999 999 Reason for Visit * Auth/Cert (Routine) Specialty Diagnoses / Procedures Referred By Contac t Referred To Contact Diagnoses Heart failure CHF w/ CLEM Procedures EMERGENCY IPI Tanya Seaman MD [facility] [place] [address] [facility] Referral ID Status Reason Start Date Expiration Date Visits Re quested Visits Authorized [id number] 1 1 Encounter Details Date Type Department Care Team (Latest Contact Info) Description 01/18/2023 5:25 PM EDT - 01/27/2023 4:27 PM EDT Hospital Encounter Heart and Vascular Unit Level 3 [place] [id number] Tanya Seaman MD [facility] [place] [address] Chris Lim MD [facility] [place] [address] Mendel Luna MD [facility] [place] [address] Heart failure, unspecified HF chronicity, unspecified heart [...] diabetes, hypertension,and hyperlipidemia who presents from [facility] ED after being redirected from [facility] for one month of [...] getting progressively worse he went to the [facility] urgent clinic in [place], [place] and was subsequently transferred to [facility] ED for further management. Upon initial presentation to [facility] ED: The patient was noted to [...] reportedly 40 mg PO) and transferred to [facility] for management of presumed acute on chronic HFrEF and CLEM. Upon direct admission to [facility]: The patient was noted to be afebrile [...] Patient was started on GDMT with metoprolol mg daily and losartan 25 mg daily. [...] he does have capacity. Spoke with his director of casework department Randa Gonzalez prior to discharge who was [...] Time Provider Department Center 01/28/2023 1:00 PM [facility] ROOM 4 [facility] Rad Your Inpatient Doctor: Mendel Luna MD Your Primary Care Provider: ELSIE Espinoza [phone] For questions regarding this document or issues relating to this hospitalization on the Medical Service, please contact your inpatient physician through the [facility] Liquor Blender . Issues afterhours and on weekends will be handled by the Hospitalist staff on-call. General Instructions None Future Appointments and Orders Future Appointments and Orders Future Appointments Provider Department Dept Phone 01/28/2023 1:00 PM [facility] US ROOM 4 Ultrasound at [facility] Arrive at: Dermatologist And Dermatopathologist Area [phone] [address] bring someone to drive you home. [...] Sanchez for admission to Home Health. [address] [address] Phone Number: [phone] (home) Date of : 1955 Inpatient DOCUMENTATION FOR VNA SERVICES (INCLUDING THOSE PATIENTS WITH MEDICARE COVERAGE REQUIRING HOME VNA SERVICES AND/OR HOSPICE SERVICES) PATIENT'S LOCATION: Miguel Sanchez [address] [address] [phone] (home) Cell: Telephone Information: Nuclear Physician's Name: self In discussion with the attending physician, it is certified that this patient is under their care and that they, or a Nurse Practitioner, Clinical Nurse specialist or Physician Child Development Assistant who is working directly with them, had [...] manage benedict catheter HOME HEALTH CARE AGENCY: [facility] [address] [place] [address] Start of care: 24-48 hours after discharge [...] patient's PCP: ELSIE Espinoza DR [address] / [facility] [address] . All VNA agencies which cover the area of patient's residence have been reviewed, either verbally or in writing, and patient/family have chosen the home health care agency noted. Questions: Disciplines Requested: Nursing Referral to Urology [[id number] Custom] As directed Process Instructions: If no progress note charted, please enter Clinical details in comments. Scheduling Instructions: Questions: My question or request is: 67 yo M admitted 01/18-01/26 w/ renal failure due to obstruction, discharged w/ benedict. Provider Contact Information: ELSIE Espinoza [address] / [facility] [address] Discharge References/Attachments: Discharge References/Attachments None documented in [...] Time Provider Department Center 01/28/2023 1:00 PM [facility] ROOM 4 [facility] Rad Your PCP office will contact you about scheduling follow up. Your Inpatient Doctor: Mendel Luna MD Your Primary Care Provider: ELSIE Espinoza [phone] For questions regarding this document or issues relating to this hospitalization on the Medical Service, please contact your inpatient physician through the [facility] Liquor Blender . Issues afterhours and on weekends will be handled by the Hospitalist staff on-call. * Attachments The following attachments cannot be sent through Care Everywhere. * Caregiver: Caring for an Indwelling Urinary Catheter: General Info ([place] Islander) documented in this encounter Medications at Time of Discharge Medication Sig Dispensed Refills Start Date End Date pimozide (ORAP) 2 mg Tablet Take 2 mg by mouth 2 times daily. albuteroL [...] naproxen sodium (Anaprox) 220 mg tablet Q8H 09/18/2019 08 simvastatin (Zocor) 40 mg tablet daily. 08/23/2019 [...] mouth 2 times daily (with meals). 02/24/2023 triamcinolone (KENALOG) 0.1 % cream Apply topically 2 times daily. 02/21/2024 gabapentin (NEURONTIN) 100 mg capsule Take 100 mg by mouth 3 times daily. 08/04/2023 documented as of this encounter Progress Notes * Sixto Amato RN - 01/27/2023 3:44 PM EDT Discharge orders written, patient understands instructions and follow up visits, patient discharge to home with a ride from [facility]. * Tati Schultz - 01/27/2023 3:43 PM EDTSummary: Transportation Transportation for discharge was scheduled and confirmed through [facility]. [facility] will have a p d driver at the Main Entrance at 4:15p today to provide patient with transportation home. * Camille Shelley RD - 01/27/2023 12:42 PM EDT Nutrition Progress Note Miguel Sanchez is a 67 y.o. male with PMH significant for HFrEF (last known EF 45% in 2020), diabetes, hypertension, and hyperlipidemia who presents from [facility] ED after being redirected from [facility] for one month of [...] Marii Serrano - 01/27/2023 11:42 AM EDT Fabric Designer Encounter Note Patient Name: Miguel Sanchez : [id number] MR#: [id number] Admit Date: 01/18/2023 5:25 PM Hospital Day [...] AM EDT Hypertension-Nephrology Inpatient Follow-up Miguel Sanchez [id number] 1955 ID: 67 y.o. old male seen [...] SPEP shows possible paraprotein however DOROTEO negative. [place] & Lambda light chains elevated however ratio [...] TID This case was discussed with staff cia agent Dr. Crawford and the primary team. Please contact me at phone: [phone] or pager: [phone] with any questions. Deonte Lugo MD Nephrology [...] Marii Serrano - 01/26/2023 3:59 PM EDT Fabric Designer Encounter Note Patient Name: Miguel Sanchez : [id number] MR#: [id number] Admit Date: 01/18/2023 5:25 PM Hospital Day [...] 1955 PCP: ELSIE Espinoza PCP phone number: [phone] Date of Admission: 01/18/2023 ( Hospital Day 8 days ) Attending:Mendel Luna MD ID: Miguel Sanchez is a 67 y.o. male with PMH significant for HFrEF (last known EF 45% in 2019), diabetes, hypertension, and hyperlipidemia who presents from [facility] ED after being redirected from [facility] clinic for one month of [...] last 168 hours. Endocrine Recent Labs 01/18/23 221 TSH 2.03 Recent Labs 01/26/23 1142 01/26/23 [...] Gas) No results found for: PHART, PO2ART, CSO0OCK, GNF4YJY Microbiology: Microbiology Results (Last 30 days) Procedure Component Value Units Date/Time Urine culture [[id number]] Collected: 01/18/232212 Lab Status: Final result Specimen: [...] bladder.. Electronically signed by: Jimmie العراقي MD, [facility] ([phone]), at 01/19/2023 8:39 AM Thank you for letting us participate in the care of this patient. If you are a health care provider and have any questions regarding this report, please contact the number above. For patients who have questions, please contact the health clinical care leader that requested your imaging first. Jimmie العراقي, [...] who have questions, please contact the health clinical care leader that requested your imaging first. Elsie Garza, E Parts Administrator Electronically Signed Final Report 01/25/2023 04:10 pm [...] hypertension, and hyperlipidemia who presents from [facility] ED after being redirected from [facility] for one month of [...] PPx: Diet: Daily Healthy Menu Choices/Cardiac diet ([facility]-Diet) Lines: Peripheral IV Line - Single Lumen [...] Yousif MSW - 01/26/2023 2:43 PM EDT TABLE WORKER received a consult to support patient regarding concern of not getting his rent paid on time, which is typically due on the 1st of every month. TABLE WORKER called patient's property management company, [employer], and spoke to one of the elastic tape inserter's, Meri, who stated they have a crow period forpaying rent late and are flexible with this kind of stuff. Meri also mentioned patient had spoken with one of her colleagues recently and asked if they could drive down to the hospital to grabthe check. TABLE WORKER checked with patient to see if he has the check, to which he responded no. Patient to be discharged tomorrow. * Deonte Lugo MD - 01/26/2023 7:51 AM EDT Hypertension-Nephrology Inpatient Follow-up Miguel Sanchez [id number] 1955 ID: 67 y.o. old male seen [...] SPEP shows possible paraprotein however DOROTEO negative. [place] & Lambda light chains elevated however ratio [...] daily This case was discussed with staff cia agent Dr. Crawford and the primary team. Please contact me at phone: [phone] or pager: [phone] with any questions. Deonte Lugo MD Nephrology [...] AM EDT Hypertension-Nephrology Inpatient Follow-up Miguel Sanchez [id number] 1955 ID: 67 y.o. old male seen [...] SPEP shows possible paraprotein however DOROTEO negative. [place] & Lambda light chains elevated however ratio [...] daily This case was discussed with staff cia agent Dr. Crawford. Please contact me at phone: [phone] or pager: [phone] with any questions. Deonte Lugo MD Nephrology [...] and volume overload resolving. Will unique need dedicated intermodal truck driver diuretics to maintain fluid balance. Please obtain repeat renal US and schedule for renal clinic follow up with Dr Lugo in 2 weeks. * Kendy Montes MD - 01/25/2023 6:05 AM EDT Images from the original note were not included. Cardiology Progress Note Patient info: Name: Miguel Sanchez : 1955 PCP: ELSIE Espinoza PCP phone number: [phone] Date of Admission: 01/18/2023 ( Hospital Day 7 days ) Attending:Mendel Luna MD ID: Miguel Sanchez is a 67 y.o. male with PMH significant for HFrEF (last known EF 45% in 2020), diabetes, hypertension, and hyperlipidemia who presents from [facility] ED after being redirected from [facility] for one month of [...] cap applied 01/19/232099 Phlebitis 0-->no symptoms 01/20/23 0354 Infiltration 0-->no [...] Gas) No results found for: PHART, PO2ART, CSX7NJL, SWX8BUF Microbiology: Microbiology Results (Last 30 days) Procedure Component Value Units Date/Time Urine culture [[id number]] Collected: 01/18/23 2213 Lab Status: Final result Specimen: Indwelling Catheter Urine Updated: 01/19/23 1843 Urine Culture No growth (Less than 1,000 [...] bladder.. Electronically signed by: Jimmie العراقي MD, [facility] ([phone]), at 01/19/2023 8:39 AM Thank you for letting us participate in the care of this patient. If you are a health care provider and have any questions regarding this report, please contact the number above. For patients who have questions, please contact the health clinical care leader that requested your imaging first. Jimmie العراقي, [...] BID heparin (porcine) 7,500 Units Subcutaneous Q8H [facility] gabapentin 100 mg Oral BID OLANZapine 15 [...] hypertension, and hyperlipidemia who presents from [facility] ED after being redirected from [facility] clinic for one month of [...] AM EDT Hypertension-Nephrology Inpatient Follow-up Miguel Sanchez [id number] 1955 ID: 67 y.o. old male seen [...] mental health clinic and has a social studies department chair there who helps him. Physical Examination: Last [...] negative. SPEP shows possible paraprotein DOROTEO pending. [place] & Lambda light chains elevated however ratio [...] from clinic visits and has a social studies department chair whogenerally helps him with this. This is [...] deficiency. This case was discussed with staff cia agent Dr. Morrow. Please contact me at phone: [phone] or pager: [phone] with any questions. Deonte Lugo MD Nephrology [...] He does report having a mental health air intelligence officer who may be of some assistance when discharge planning comes to play. * Kendy Montes MD - 01/24/2023 6:39 AM EDT Images from the original note were not included. Cardiology Progress Note Patient info: Name: Miguel Sanchez : 1955 PCP: ELSIE Espinoza PCP phone number: [phone] Date of Admission: 01/18/2023 ( Hospital Day 6 days ) Attending:Mendel Luna MD ID: Miguel Sanchez is a 67 y.o. male with PMH significant for HFrEF (last known EF 45% in 2020), diabetes, hypertension, and hyperlipidemia who presents from [facility] ED after being redirected from [facility] clinic for one month of [...] Gas) No results found for: PHART, PO2ART, NDZ1ANM, GNO6CRH Microbiology: Microbiology Results (Last 30 days) Procedure Component Value Units Date/Time Urine culture [[id number]] Collected: 01/18/232212 Lab Status: Final result Specimen: [...] bladder.. Electronically signed by: Jimmie العراقي MD, [facility] ([phone]), at 01/19/2023 8:39 AM Thank you for letting us participate in the care of this patient. If you are a health care provider and have any questions regarding this report, please contact the number above. For patients who have questions, please contact the health clinical care leader that requested your imaging first. Jimmie العراقي, [...] hypertension, and hyperlipidemia who presents from [facility] ED after being redirected from [facility] clinic for one month of [...] AM EDT Hypertension-Nephrology Inpatient Follow-up Miguel Sanchez [id number] 1955 ID: 67 y.o. old male seen [...] negative. SPEP shows possible paraprotein DOROTEO pending. [place] & Lambda light chains elevated however ratio [...] and voiding trial - Please start ergocalciferol 00796 U weekly This case was discussed with staff cia agent Dr. Morrow. Please contact me at phone: [phone] or pager: [phone] with any questions. Deonte Lugo MD Nephrology [...] 1955 PCP: ELSIE Espinoza PCP phone number: [phone] Date of Admission: 01/18/2023 ( Hospital Day 5 days ) Attending:Mendel Luna MD ID: Miguel Sanchez is a 67 y.o. male with PMH significant for HFrEF (last known EF 45% in 2019), diabetes, hypertension, and hyperlipidemia who presents from [facility] ED after being redirected from [facility] clinic for one month of [...] Gas) No results found for: PHART, PO2ART, WVN0AGA, VBG7WWT Microbiology: Microbiology Results (Last 30 days) Procedure Component Value Units Date/Time Urine culture [[id number]] Collected: 01/18/232212 Lab Status: Final result Specimen: [...] bladder.. Electronically signed by: Jimmie العراقي MD, [facility] ([phone]), at 01/19/2023 8:39 AM Thank you for letting us participate in the care of this patient. If you are a health care provider and have any questions regarding this report, please contact the number above. For patients who have questions, please contact the health clinical care leader that requested your imaging first. Jimmie العراقي, [...] hypertension, and hyperlipidemia who presents from [facility] ED after being redirected from [facility] urgent clinic for one month of [...] for potential renal biopsy. * Camille Shelley, BERNARDINO - 01/22/2023 1:07 PM EDT Nutrition Consult Note Miguel Sanchez is a 67 y.o. male with PMH significant for HFrEF (last known EF 45% in 2020), diabetes, hypertension, and hyperlipidemia who presents from [facility] ED after being redirected from [facility] clinic for one month of [...] Shelley, MS, RD, LD Clinical Nutrition * MarySushma, OT - 01/22/2023 9:56 AM EDT Occupational Therapy Treatment Note Treatment Number OT: 2 Patient Dx: Miguel Sanchez is a 67 y.o. male with PMH significant for HFrEF (last known EF 45% in 2020), diabetes, hypertension, and hyperlipidemia who presents from [facility] ED after being redirected from [facility] for one month of [...] transportation for shopping and errands and his director of casework department visits once a week. Pt does not [...] Consistently following commands ADL: Assist needed to don/do hospital gown d/t lines Toileting: provided pt [...] Therapy: 30 (SCHM x 2; 9:56-10:26) Pager: [phone] Sushma Hernandez OT Occupational Therapy Rehabilitation Department * Deonte Lugo MD - 01/22/2023 7:46 AM EDT Hypertension-Nephrology Inpatient Follow-up Miguel Sanchez [id number] 1955 ID: 67 y.o. old male seen [...] negative. SPEP shows possible paraprotein DOROTEO pending. [place] & Lambda light chains elevated however ratio [...] primaryteam. This case was discussed with staff cia agent Dr. Morrow. Please contact me at phone: [phone] or pager: [phone] with any questions. Deonte Lugo MD Nephrology [...] 1955 PCP: ELSIE Espinoza PCP phone number: [phone] Date of Admission: 01/18/2023 ( Hospital Day 4 days ) Attending:Mendel Luna MD ID: Miguel Sanchez is a 67 y.o. male with PMH significant for HFrEF (last known EF 45% in 2020), diabetes, hypertension, and hyperlipidemia who presents from [facility] ED after being redirected from [facility] clinic for one month of progressively worsening shortness of breath and associated chest pain occurring both at rest and on exertion with concern for HFrEF exacerbation and CLEM. Active Problems: Active Hospital Problems Diagnosis Heart failure Resolved Hospital Problems No resolved problems to display. 24 Hour and Subjective: Yesterday: -Holding diuresis. Was going to [facility] but got bumped so plan for tomorrow. [...] Gas) No results found for: PHART, PO2ART, FGM4GGE, [id number] Microbiology: Microbiology Results (Last 30 days) Procedure Component Value Units Date/Time Urine culture [[id number]] Collected: 01/18/232212 Lab Status: Final result Specimen: [...] bladder.. Electronically signed by: Jimmie العراقي MD, [facility] ([phone]), at 01/19/2023 8:39 AM Thank you for letting us participate in the care of this patient. If you are a health care provider and have any questions regarding this report, please contact the number above. For patients who have questions, please contact the health clinical care leader that requested your imaging first. Jimmie العراقي, [...] hypertension, and hyperlipidemia who presents from [facility] ED after being redirected from [facility] for one month of [...] hypertension, and hyperlipidemia who presents from [facility] ED after being redirected from [facility] for one month of [...] alone in a single level apartment in [place], [place] Bathroom Set-up: Tub-shower with a shower [...] Code: Gait x1 Sera Mancera, PT Pager: [phone] Physical Therapy Inpatient Rehabilitation Department * Deonte Lugo MD - 01/21/2023 7:44 AM EDT Hypertension-Nephrology Inpatient Follow-up Miguel Sanchez [id number] 1955 ID: 67 y.o. old male seen [...] being This case was discussed with staff cia agent Dr. Morrow. Please contact me at phone: [phone] or pager: [phone] with any questions. Deonte Lugo MD Nephrology [...] 1955 PCP: ELSIE Espinoza PCP phone number: [phone] Date of Admission: 01/18/2023 ( Hospital Day 3 days ) Attending:Chris Lim MD ID: Miguel Sanchez is a 67 y.o. male with PMH significant for HFrEF (last known EF 45% in 2019), diabetes, hypertension, and hyperlipidemia who presents from [facility] ED after being redirected from [facility] for one month of [...] cap applied 01/19/232099 Phlebitis 0-->no symptoms 01/20/23 0354 Infiltration 0-->no symptoms 01/20/23 035 Labs: Recent Labs 01/21/23 0242 01/20/23 0326 [...] Gas) No results found for: PHART, PO2ART, WKG0SIG, CIP5NQU Microbiology: Microbiology Results (Last 30 days) Procedure Component Value Units Date/Time Urine culture [[id number]] Collected: 01/18/232212 Lab Status: Final result Specimen: [...] bladder.. Electronically signed by: Jimmie العراقي MD, [facility] ([phone]), at 01/19/2023 8:39 AM Thank you for letting us participate in the care of this patient. If you are a health care provider and have any questions regarding this report, please contact the number above. For patients who have questions, please contact the health clinical care leader that requested your imaging first. Jimmie العراقي, [...] hypertension, and hyperlipidemia who presents from [facility] ED after being redirected from [facility] for one month of [...] Montes MD Internal Medicine, PGY-1 Cardiology M1-S1, #6970 Cardiology M1-S2, #[id number] 01/21/2023, 6:02 AM Cardiology Staff Addendum Miguel [...] AM EDT Hypertension-Nephrology Inpatient Follow-up Miguel Sanchez [id number] 1955 ID: 67 y.o. old male seen [...] his dry weight. - Would recommend consulting/[facility] urology for help with obstruction as [...] serologies This case was discussed with staff cia agent Dr. Morrow and the patient's primary team. Please contact me at phone: [phone] or pager: [phone] with any questions. Deonte Lugo MD Nephrology [...] Reina Alcala APRN (Inactive) PCP phone number: [phone] Date of Admission: 01/18/2023 ( Hospital Day 2 days ) Attending:Chris Lim MD ID: Miguel Sanchez is a 67 y.o. male with PMH significant for HFrEF (last known EF 45% in 2020), diabetes, hypertension, and hyperlipidemia who presents from [facility] ED after being redirected from [facility] for one month of [...] Gas) No results found for: PHART, PO2ART, QHG5JWD, GYX2LGA Microbiology: Microbiology Results (Last 30 days) Procedure Component Value Units Date/Time Urine culture [[id number]] Collected: 01/18/232212 Lab Status: Final result Specimen: [...] bladder.. Electronically signed by: Jimmie العراقي MD, [facility] ([phone]), at 01/19/2023 8:39 AM Thank you for letting us participate in the care of this patient. If you are a health care provider and have any questions regarding this report, please contact the number above. For patients who have questions, please contact the health clinical care leader that requested your imaging first. Jimmie العراقي, [...] hypertension, and hyperlipidemia who presents from [facility] ED after being redirected from [facility] for one month of [...] PM EDTSummary: Advance Directive Patient completed a [place] Advance Directive. Patient identified his sister Mony as his health care agent. * Sera Mancera, PT - 01/19/2023 11:00 AM EDT Physical Therapy evaluation Patient profile: Miguel Sanchez is a 67 y.o. male with PMH significant for HFrEF (last known EF 45% in 2019), diabetes, hypertension, and hyperlipidemia who presents from [facility] ED after being redirected from [facility] clinic for one month of progressively worsening shortness of breath and associated chest pain occurring both at rest and on exertion. Social History: Home set-up: Lives alone in a single level apartment in [place], [place] Bathroom Set-up: Tub-shower with a shower [...] Moderate Complexity Evaluation Sera Mancera, PT Pager: [phone] Physical Therapy Inpatient Rehabilitation Department * Sushma Hernandez, OT - 01/19/2023 10:30 AM EDT Occupational Therapy Evaluation Patient profile: Miguel Sanchez is a 67 y.o. male with PMH significant for HFrEF (last known EF 45% in 2020), diabetes, hypertension, and hyperlipidemia who presents from [facility] ED after being redirected from [facility] for one month of [...] transportation for shopping and errands and his director of casework department visits once a week. Pt does not [...] and measurable assessment of functional outcome. Pager: [phone] Sushma Hernandez OTR/L Occupational Therapy Rehabilitation Department * Marii Serrano - 01/19/2023 10:23 AM EDT Ervin Encounter Note Patient Name: Miguel Sanchez : [id number] MR#: [id number] Admit Date: 01/18/2023 5:25 PM Hospital Day [...] believe in goingto Sikh because he can hoahaoism God in any place he is. Patient [...] sent to Office of Care Management ~ Batch Still Operator. * Chris Lim MD - 01/19/2023 6:11 AM EDT Images from the original note were not included. Cardiology Progress Note Patient info: Name: Miguel Sanchez : 1955 PCP: Reina Alcala APRN (Inactive) PCP phone number: [phone] Date of Admission: 01/18/2023 ( Hospital Day 1 day ) Attending:Chris Lim MD ID: Miguel Sanchez is a 67 y.o. male with PMH significant for HFrEF (last known EF 45% in 2019), diabetes, hypertension, and hyperlipidemia who presents from [facility] ED after being redirected from [facility] urgent clinic for one month of progressively worsening shortness of breath and associated chest pain occurring both at rest and on exertion. Active Problems: Active Hospital Problems Diagnosis Heart failure Resolved Hospital Problems No resolved problems to display. 24 Hour and Subjective: Yesterday: - The patient was reassuringly afebrile and hemodynamically stable upon transfer to [facility]. Interestingly, initial exam did not demonstrate marked [...] Gas) No results found for: PHART, PO2ART, KHD4LND, TJE9JII Microbiology: Microbiology Results (Last 30 days) No [...] bladder.. Electronically signed by: Jimmie العراقي MD, [facility] ([phone]), at 01/19/2023 8:39 AM Thank you for letting us participate in the care of this patient. If you are a health care provider and have any questions regarding this report, please contact the number above. For patients who have questions, please contact the health clinical care leader that requested your imaging first. Jimmie العراقي, [...] hypertension, and hyperlipidemia who presents from [facility] ED after being redirected from [facility] for one month of [...] Reina Alcala APRN (Inactive) PCP phone number: [phone] Date of Admission: 01/18/2023 ( Hospital Day 0 days ) Attending:Tanya Seaman MD ID: Miguel Sanchez is a 67 y.o. male with PMH significant for HFrEF (last known EF 45% in 2020), diabetes, hypertension, and hyperlipidemia who presents from [facility] ED after being redirected from [facility] for one month of [...] getting progressively worse he went to the [facility] urgent clinic in [place], [place] and was subsequently transferred to [facility] ED for further management. Upon initial presentation to [facility] ED: The patient was noted to [...] reportedly 40 mg PO) and transferred to [facility] for management of presumed acute on chronic HFrEF and CLEM. 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 The patient was reassuringly afebrile and hemodynamically stable upon transfer to [facility]. Interestingly, initial exam did not demonstrate marked [...] More than 30 minutes were spent in grbd-az-lzsk contact with patient and with arranging discharge [...] have to pay my rent, get two rn hedis's checks - one for rent and one [...] a catheter. Has daily auditory hallucinations of [employer] that he has lived with for decades. No SI/HI. Diagnoses: schizophrenia dx 1996 Current treatment: zyprexa 15mg QHS Past hospitalizations: never Suicide attempts: not really - years ago he came close, but doesn't elaborate Past psychiatric medications: did not assess Substance Use History/Treatment: no alcohol, cigarettes, marijuana, or other substances Social History: Lives in an apartment by himself in [facility]. No family in the area. Only support is his mental health agency. [facility] - Randa Daniels (director of casework department). Asa Deal is his provider. Problem List: [...] Nightly Austin Sosa MD 15 mg at 01/20/23 2016 sodium chloride 0.9 % (flush) (BD PosiFlush [...] rate, and normal rhythm Language: fluent in tajik Mood: fine Affect: blunted and mood-congruent Thought [...] 3 wbc, hgb, hct plt Recent Labs 0834801/26/2331001/25/23 0406 WBC 8.2 8.4 8.2 HGB 10.6* 10.2* 10.6* HCT 31.5* 29.8* 30.7* PLATELET 163 161 170 Last 3 Lytes Recent Labs 01/27/23 03401/26/23 0311 01/25/23 0406 NA 137 139 139 [...] 2.03 Last 3 Lipids Recent Labs 01/18/23 2216 CHLPL 122 HDL 27 LDLDIRECT 65 Last 3 HgbA1C Recent Labs 01/18/23 2216 HA1C 5.7* Last 3 CBC Recent Labs 01/27/2334801/26/231 01/25/23 0406 WBC 8.2 8.4 8.2 External [...] check on him, or see if his director of casework department willcheck in on him tomorrow Please page psychiatry with additional questions Patient on IEA Status? IEA: NO, patient is not on IEA and does not have any psychiatric contraindication to discharge at the time of this assessment. Recommendations were communicated to primary business team leader Kendy Montes MD. Maritza Awan [...] [] Minimal - [] Minimal [] Straightforward 80598 [] Low [] Low [] Low [] Low 58554 [] Moderate [x] Moderate [] Moderate [] Moderate 94705 [x] High [] High [x] High [x] High 48532 Final Coding Determination: High Associated attestation - [...] CM). Keon Park MD Psychiatry Consultation Pager: [phone] * Plan of Care - Adrienne Calderon [...] hypertension, and hyperlipidemia who presents from [facility] ED after being redirected from [facility] for one month of [...] to: discuss discharge planning needs. provide the [facility], Office of Care Management letter from the C Application Developer pertaining to rehab referrals. provide a letter describing our affiliations within the [facility] and educate about their right to choose where referrals are sent. provide a list of Home Health Agencies / Durable Medical Equipment vendors which serve their preferred geographic area. provided patient with [facility] Star Quality Rating handout. They have requested referrals to: [facility] [address] [place] [address] Note routed to a Batch Still Operator who will communicate referrals to facilities [...] from the original note were not included. [facility] [place] [address] [address] CORONARY ANGIOGRAM AND PERCUTANEOUS CORONARY INTERVENTION REPORT Patient: Miguel Sanchez : 1955 MR number: [id number] Date of Service: 01/22/2023 Naturopathic Doctor: Layton Morris MD Fellow: Mario Alberto Glasgow MD INDICATION: Miguel Sanchez is a 67 y.o. male with PMH significant for HFrEF (last known EF 45% in 2019), diabetes, hypertension, and hyperlipidemia who presents from [facility] ED after being redirected from [facility] for one month of [...] goes to the bank and gets a grocery cashier's check and pays it. CM tried to call the bank and the customer needs to be present for them to release any funds. I tried to call the [employer] [facility]- but they were closed. CM also tried to call his director of casework department Randa to see if she could help. Left message for her to call back. Will put in TABLE WORKER consult to meet with him on Wednesday to follow up with the [employer] To see if theywould be able [...] PT/OT Recommendations Outpatient Agency/Support Group Needs: Other [facility]: Randa Carlos at [phone] (director of casework department) Transportation: Medicaid transport- will need 24 hours [...] for Consultation: post-obstructive CLEM Referring Provider: Chris Lmi MD History of Present Illness: Miguel Sanchez [...] Coon MD Urology PGY-2 Daytime Consult Pager #[phone] * Initial Assessments - Darryl Rodriguez RN - 01/19/2023 4:57 PM EDT Office of Care Management Initial Assessment Darryl Rodriguez RN reviewed record and discussed patient with Care Team. Source of Information: Team, bedside nurse, medical record, and Patient, Chart Review. Introduced self/reviewed role; services accepted. Admitted From: Transfer from another hospital Location: [facility] Reason for Hospitalization: Heart problems and kidney problems Covid Vaccination Status: 1st, 2nd & booster Last COVID test: na Past medical History: No past medical history on file. Hospitalizations Within the Past 30 Days: no previous admission in last 30 days Current Decision-Making Capacity: Self If AD's have not been completed the following surrogate would be surrogate decision maker per [place] decision making law. (Only good for 180 days) Any patient receiving care in [place] must abide by [place] law. The hierarchy for surrogate decision making [...] The agent with financial power of insurance defense attorney or a conservator appointed in accordance [...] DME: none Home Address confirmed as: [address] [address] Social & Family Supports: All names listed below confirmed with patient as current and correct Extended Emergency Contact Information Primary Emergency Contact: Mony Abraham Mobile Relation: Sibling Current Care Provided by: self Provides Primary Care For: no one, unable/limited ability to care for self Caregiver if needed: none Quality of Family relationships: non-existent Community Resources being provided currently: outpatient psychiatric care ([facility]) Behavioral Health History: Schizophrenia unspecified; MMD recurrent unspecified; on Olanzapine 15mgQD per Miroslava Anguiano CM at [facility] Substance Use/Abuse confirmed: denies all Social History [...] Yes ; Prescription Coverage: Yes Preferred Pharmacy: [id number] AT [address] [address] [place] Status: Patient is a : No Primary [...] 7:38 AM EDT Hypertension-Nephrology Consultation Miguel Sanchez [id number] 1955 ID: Miguel Sanchez is 67 y.o. [...] labs. This case was discussed with staff cia agent Dr. Morrow and the patient's primary team. Please contact me at phone: [phone] or pager: [phone] with any questions. Deonte Lugo MD Nephrology [...] 2:20 PM EDT [place] [address] Austin Simon MD [facility] [place] [address] 04/11/2024 11:20 AM EDT Office Visit Dermatology at [facility] [address] [place] [address] Terri Pimentel MD [facility] [address] [place] [address] Scheduled Referrals Name Type Priority Associated Diagnoses [...] 3:23 PM EDT HIV SCREEN, 4TH GENERATION ([facility]/CGP/APD/NLH) Routine 01/20/2023 3:23 PM EDT HEPATITIS B [...] Glucose, POC 159 65 - 199 mg/dL [facility] Comment: Supplemental ranges: <140 mg/dL before meals <180 mg/dL all other times of the day Blood 01/27/2023 12:1 8 PM EDT 01/27/2023 12:18 PM EDT Mendel Luna MD POINT OF CARE TEST O RDERABLES Performing Organization Address City/[facility]/ZIP Co de Phone Number [facility] [place] [address] * POCT Glucose (01/27/2023 7:58 AM EDT) Glucose, POC 173 65 - 199 mg/dL [facility] Comment: Supplemental ranges: <140 mg/dL before meals <180 mg/dL all other times of the day Blood 01/27/2023 7:58 AM EDT 01/27/2023 7:58 AM EDT Mendel Luna MD POINT OF CARE TEST O RDERABLES Performing Organization Address City/[facility]/ZIP Co de Phone Number [facility] [place] [address] * (ABNORMAL) Differential, Automated (01/27/2023 3:49 AM EDT) Neutrophil % 75.3 % [facility] Neutrophil Absolute 6.21(H) 1.70 - 6.10 x10(3)/mc L [facility] Lymph % 12.1 % [facility] Lymphocytes Abs 1.0 0.9 - 3.2 x10(3)/mc L [facility] Monocyte % 8.6 % [facility] Monocyte Abs 0.7 0.3 - 0.9 x10(3)/mc L [facility] Eos % 2.9 % [facility] Eosinophils Abs 0.2 0.0 - 0.4 x10(3)/mc L [facility] Basophil % 0.7 % [facility] Baso Absolute 0.1 0.0 - 0.1 x10(3)/mc L [facility] Immature Gran % 0.40 % [facility] Comment: Immature granulocytes(IG's)percentage and absolute count will include metamyelocytes, myelocytes, and promyelocytes. Blood smears from CBCs yielding IG's will be scanned manually for concordance. If this scan disagrees with the automated IG or if promyelocytes are noted, a manual differential will be performed. Immature Gran Absolute 0.03 0.00 - 0.04 x10(3)/ L [facility] Blood 01/27/2023 3:49 AM EDT 01/27/2023 4:08 AM EDT Narrative Resulting Agency Comment Spec In Lab Kyle Mckeon MD HEMATOLOGY ORDERABLE S Performing Organization Address City/State/[facility] Co de Phone Number [facility] [place] [address] * (ABNORMAL) Hemogram (01/27/2023 3:49 AM EDT) White Blood Cell 8.2 4.0 - 9.5 x10(3)/ L [facility] Red Blood Cell 3.45(L) 4.58 - 5.54 x10(6)/[facility] Hemoglobin 10.6(L) 13.7 - 16.5 g/dL [facility] Hematocrit 31.5(L) 40.5 - 48.5 % [facility] Mean Cell Volume 91.3 82.9 - 93.1 fL [facility] Mean Cell Hemoglobin 30.7 27.5 - 32.1 pg [facility] Mean Cell Hemoglobin Concentration 33.7 32.0 - 35.7 g/dL [facility] Platelet 163 145 - 357 x10(3)/ L [facility] RDW Standard Deviation 42.7 36.0 - 45.0 fL [facility] RDW coefficient of variation 13.0 11.4 - 13.8 % [facility] Mean Platelet Volume 12.8 7.6 - 12.9 fL [facility] NRBC% auto 0.0 % [facility] NRBC Absolute 0.000 0.000 - 0.000 x10(3)/mc L [facility] Blood 01/27/2023 3:49 AM EDT 01/27/2023 4:08 AM EDT Narrative Resulting Agency Comment Spec In Lab Kyle Mckeon MD HEMATOLOGY ORDERABLE S Performing Organization Address [facility] Co de Phone Number [facility] [place] [address] * (ABNORMAL) Phosphorus (01/27/2023 3:49 AM EDT) Phosphorus 5.0(H) 2.5 - 4.5 mg/dL [facility] Blood 01/27/2023 3:49 AM EDT 01/27/2023 4:08 AM EDT Narrative Resulting Agency Comment Spec In Lab Tanya Seaman MD CHEMISTRY ORDERABL ES Performing Organization Address [facility] de Phone Number [facility] [place] [address] * Magnesium (01/27/2023 3:49 AM EDT) Magnesium 0.97 0.69 - 1.07 mmol/L [facility] Blood 01/27/2023 3:49 AM EDT 01/27/2023 4:08 AM EDT Narrative Resulting Agency Comment Spec In Lab Tanya Seaman MD CHEMISTRY ORDERABL ES Performing Organization Address [facility] Co de Phone Number [facility] [place] [address] * (ABNORMAL) Basic Metabolic Panel (non-fasting) (01/27/2023 3:49 AM EDT) Glucose 142 65 - 199 mg/dL [facility] Comment:Diabetes: >=200 mg/d L plus symptoms Blood Urea Nitrogen 78(H) 10 - 20 mg/dL [facility] Creatinine 4.74(H) 0.80 - 1.50 mg/dL [facility] Sodium 137 135 - 145 mmol/L [facility] Potassium 4.8 3.5 - 5.0 mmol/L [facility] Comment: Please note: ??Patients with WBC >100,000 may have falsely elevated Potassium levels. ??For accurate Potassium quantification in these patients send serum separator tube (gold top) for subsequent determinations. ??Contact the Clinical Chemistry Laboratory if there are any questions. Chloride 107 98 - 107 mmol/L [facility] Carbon Dioxide 15(L) 22 - 31 mmol/L [facility] Anion Gap 15 5 - 15 mmol/L [facility] Calcium 9.4 8.5 - 10.5 mg/dL [facility] Est Glomerular Filtration Rate 13(L) >=60 mL/min/1. 73 m?? [facility] Comment: This patient's estimated GFR was [...] Lab Tanya Seaman MD CHEMISTRY ORDERABL ES [facility] [place] [address] * (ABNORMAL) POCT Glucose (01/26/2023 8:20 PM EDT) Glucose, POC 202(H) 65 - 199 mg/dL [facility] Comment: Supplemental ranges: <140 mg/dL before meals <180 mg/dL all other times of the day Blood 01/26/2023 8:20 PM EDT 01/26/2023 8:20 PM EDT Mendel Luna MD POINT OF CARE TEST O RDERABLES Performing Organization Address [facility] Co de Phone Number [facility] [place] [address] * POCT Glucose (01/26/2023 4:04 PM EDT) Glucose, POC 152 65 - 199 mg/dL [facility] Comment: Supplemental ranges: <140 mg/dL before meals <180 mg/dL all other times of the day Blood 01/26/2023 4:04 PM EDT 01/26/2023 4:04 PM EDT Mendel Luna MD POINT OF CARE TEST O RDERABLES Performing Organization Address [facility] Co de Phone Number [facility] [place] [address] * POCT Glucose (01/26/2023 11:42 AM EDT) Glucose, POC 175 65 - 199 mg/dL [facility] Comment: Supplemental ranges: <140 mg/dL before meals <180 mg/dL all other times of the day Blood 01/26/2023 11:4 2 AM EDT 01/26/2023 11:42 AM EDT Mendel Luna MD POINT OF CARE TEST O RDERABLES Performing Organization Address [facility] Co de Phone Number [facility] [place] [address] * POCT Glucose (01/26/2023 7:51 AM EDT) Glucose, POC 137 65 - 199 mg/dL [facility] Comment: Supplemental ranges: <140 mg/dL before meals <180 mg/dL all other times of the day Blood 01/26/2023 7:51 AM EDT 01/26/2023 7:51 AM EDT Mendel Luna MD POINT OF CARE [place] [address] * Differential, Automated (01/26/2023 3:11 AM EDT) Neutrophil % 71.1 % [facility] Neutrophil Absolute 5.94 1.70 - 6.10 x10(3)/[facility] Lymph % 15.3 % [facility] Lymphocytes Abs 1.3 0.9 - 3.2 x10(3)/[facility] Monocyte % 8.9 % [facility] Monocyte Abs 0.7 0.3 - 0.9 x10(3)/[facility] Eos % 3.6 % [facility] Eosinophils Abs 0.3 0.0 - 0.4 x10(3)/[facility] Basophil % 0.7 % [facility] Baso Absolute 0.1 0.0 - 0.1 x10(3)/[facility] Immature Gran % 0.40 % [facility] Comment: Immature granulocytes(IG's)percentage and absolute count will include metamyelocytes, myelocytes, and promyelocytes. Blood smears from CBCs yielding IG's will be scanned manually for concordance. If this scan disagrees with the automated IG or if promyelocytes are noted, a manual differential will be performed. Immature Gran Absolute 0.03 0.00 - 0.04 x10(3)/[facility] Blood 01/26/2023 3:11 AM EDT 01/26/2023 3:40 AM EDT Narrative Resulting Agency Comment Spec In Lab Kyle Mckeon MD [place] [address] * (ABNORMAL) Hemogram (01/26/2023 3:11 AM EDT) White Blood Cell 8.4 4.0 - 9.5 x10(3)/mc L [facility] Red Blood Cell 3.25(L) 4.58 - 5.54 x10(6)/ L [facility] Hemoglobin 10.2(L) 13.7 - 16.5 g/dL [facility] Hematocrit 29.8(L) 40.5 - 48.5 % [facility] Mean Cell Volume 91.7 82.9 - 93.1 fL [facility] Mean Cell Hemoglobin 31.4 27.5 - 32.1 pg [facility] Mean Cell Hemoglobin Concentration 34.2 32.0 - 35.7 g/dL [facility] Platelet 161 145 - 357 x10(3)/mc L [facility] RDW Standard Deviation 43.0 36.0 - 45.0 fL [facility] RDW coefficient of variation 13.0 11.4 - 13.8 % [facility] Mean Platelet Volume 13.0(H) 7.6 - 12.9 fL [facility] NRBC% auto 0.0 % [facility] NRBC Absolute 0.000 0.000 - 0.000 x10(3)/ L [facility] Blood 01/26/2023 3:11 AM EDT 01/26/2023 3:40 AM EDT Narrative Resulting Agency Comment Spec In Lab Kyle Mckeon MD HEMATOLOGY ORDERABLE S Performing Organization Address City/[facility] Co de Phone Number [facility] [place] [address] * (ABNORMAL) Phosphorus (01/26/2023 3:11 AM EDT) Phosphorus 4.6(H) 2.5 - 4.5 mg/dL [facility] Blood 01/26/2023 3:11 AM EDT 01/26/2023 3:39 AM EDT Narrative Resulting Agency Comment Spec In Lab Tanya Seaman MD CHEMISTRY ORDERABL ES Performing Organization Address City/[facility] Co de Phone Number [facility] [place] [address] * Magnesium (01/26/2023 3:11 AM EDT) Magnesium 0.97 0.69 - 1.07 mmol/L [facility] Blood 01/26/2023 3:11 AM EDT 01/26/2023 3:39 AM EDT Narrative Resulting Agency Comment Spec In Lab Tanya Seaman MD CHEMISTRY ORDERABL ES [facility] [place] [address] * (ABNORMAL) Basic Metabolic Panel (non-fasting) (01/26/2023 3:11 AM EDT) Glucose 127 65 - 199 mg/dL [facility] Comment:Diabetes: >=200 mg/d L plus symptoms Blood Urea Nitrogen 77(H) 10 - 20 mg/dL [facility] Creatinine 4.91(H) 0.80 - 1.50 mg/dL [facility] Sodium 139 135 - 145 mmol/L [facility] Potassium 4.8 3.5 - 5.0 mmol/L [facility] Comment: Please note: ??Patients with WBC >100,000 may have falsely elevated Potassium levels. ??For accurate Potassium quantification in these patients send serum separator tube (gold top) for subsequent determinations. ??Contact the Clinical Chemistry Laboratory if there are any questions. Chloride 105 98 - 107 mmol/L [facility] Carbon Dioxide 18(L) 22 - 31 mmol/L [facility] Anion Gap 16(H) 5 - 15 mmol/L [facility] Calcium 9.3 8.5 - 10.5 mg/dL [facility] Est Glomerular Filtration Rate 12(L) >=60 mL/min/1. 73 m?? [facility] Comment: This patient's estimated GFR was [...] ORDERABL ES Performing Organization Address [facility] Co de Phone Number [facility] [place] [address] * POCT Glucose (01/25/2023 9:24 PM EDT) Glucose, POC 181 65 - 199 mg/dL [facility] Comment: Supplemental ranges: <140 mg/dL before meals <180 mg/dL all other times of the day Blood 01/25/2023 9:24 PM EDT 01/25/2023 9:24 PM EDT Mendel Luna MD POINT OF CARE TEST O RDERABLES Performing Organization Address [facility] Co de Phone Number [facility] [place] [address] * POCT Glucose (01/25/2023 4:46 PM EDT) Glucose, POC 153 65 - 199 mg/dL [facility] Comment: Supplemental ranges: <140 mg/dL before meals <180 mg/dL all other times of the day Blood 01/25/2023 4:46 PM EDT 01/25/2023 4:46 PM EDT Mendel Luna MD POINT OF CARE TEST O RDERAMARCY Performing Organization Address [facility] Co de Phone Number [facility] [place] [address] * US Retroperitoneal Complete (01/25/2023 3:50 PM [...] who have questions, please contact the health clinical care leader that requested your imaging first. ?Elsie Garza, [facility] Parts Administrator Electronically Signed Final Report ?? 01/25/2023 04:10 pm Narrative 01/25/2023 4:11 PM EDT Renal ? (Signed Final 01/25/2023 04:10 pm) PATIENT INFO: ID #: ? [id number] ?: ??[birth year] (67 yrs)(M) Name: ? MIGUEL SANCHEZ ? Visit Date: 01/25/2023 03:47 pm PERFORMED BY: Attending: ?Kayla OTT, Elsie Conley Performed By: ? Paola Pritchard RDMS Referred By: ?MENDEL LUNA Location: ? [place] SERVICE(S) PROVIDED: URETRO - Retroperitoneal Complete - [id number] ? [id number] INDICATIONS: 67yo male with CLEM, repeat U/S [...] 01/25/2023 04:10 pm) PATIENT INFO: ID #: [id number] : [birth year] (67 yrs)(M) Name: MIGUEL SANCHEZ Visit Date: 01/25/2023 03:47 pm PERFORMED BY: Attending: Elsie Garza MD Performed By: Paola Pritchard RDMS Referred By: MENDEL HELISCH Location: [place] SERVICE(S) PROVIDED: URETRO - Retroperitoneal Complete - [id number] INDICATIONS: 67yo male with CLEM, repeat U/S [...] who have questions, please contact the health clinical care leader that requested your imaging first. Elsie Garza, [facility] Parts Administrator Electronically Signed Final Report 01/25/2023 04:10 pm Mendel Luna MD IMG US GEN ORDERABLE S * POCT Glucose (01/25/2023 11:20 AM EDT) Glucose, POC 182 65 - 199 mg/dL [facility] Comment: Supplemental ranges: <140 mg/dL before meals <180 mg/dL all other times of the day Blood 01/25/2023 11:2 0 AM EDT 01/25/2023 11:20 AM EDT Mendel Luna MD POINT OF CARE TEST O RDERABLES Performing Organization Address City/[facility]/ZIP Co de Phone Number [facility] [place] [address] * POCT Glucose (01/25/2023 7:44 AM EDT) Glucose, POC 155 65 - 199 mg/dL [facility] Comment: Supplemental ranges: <140 mg/dL before meals <180 mg/dL all other times of the day Blood 01/25/2023 7:44 AM EDT 01/25/2023 7:44 AM EDT Mendel Luna MD POINT OF CARE TEST O RDERABLES Performing Organization Address City/[facility]/ZIP Co de Phone Number [facility] [place] [address] * Differential, Automated (01/25/2023 4:06 AM EDT) Neutrophil % 72.7 % [facility] Neutrophil Absolute 5.96 1.70 - 6.10 x10(3)/[facility] Lymph % 14.7 % [facility] Lymphocytes Abs 1.2 0.9 - 3.2 x10(3)/[facility] Monocyte % 8.2 % [facility] Monocyte Abs 0.7 0.3 - 0.9 x10(3)/[facility] Eos % 3.5 % [facility] Eosinophils Abs 0.3 0.0 - 0.4 x10(3)/[facility] Basophil % 0.7 % [facility] Baso Absolute 0.1 0.0 - 0.1 x10(3)/[facility] Immature Gran % 0.20 % [facility] Comment: Immature granulocytes(IG's)percentage and absolute count will include metamyelocytes, myelocytes, and promyelocytes. Blood smears from CBCs yielding IG's will be scanned manually for concordance. If this scan disagrees with the automated IG or if promyelocytes are noted, a manual differential will be performed. Immature Gran Absolute 0.02 0.00 - 0.04 x10(3)/[facility] Blood 01/25/2023 4:06 AM EDT 01/25/2023 4:17 AM EDT Narrative Resulting Agency Comment Spec In Lab Kyle Mckeon MD HEMATOLOGY ORDERABLE S [facility] [place] [address] * (ABNORMAL) Hemogram (01/25/2023 4:06 AM EDT) White Blood Cell 8.2 4.0 - 9.5 x10(3)/mc L [facility] Red Blood Cell 3.38(L) 4.58 - 5.54 x10(6)/mc L [facility] Hemoglobin 10.6(L) 13.7 - 16.5 g/dL [facility] Hematocrit 30.7(L) 40.5 - 48.5 % [facility] Mean Cell Volume 90.8 82.9 - 93.1 fL [facility] Mean Cell Hemoglobin 31.4 27.5 - 32.1 pg [facility] Mean Cell Hemoglobin Concentration 34.5 32.0 - 35.7 g/dL [facility] Platelet 170 145 - 357 x10(3)/mc L [facility] RDW Standard Deviation 42.1 36.0 - 45.0 fL [facility] RDW coefficient of variation 12.8 11.4 - 13.8 % [facility] Mean Platelet Volume 12.6 7.6 - 12.9 fL [facility] NRBC% auto 0.0 % [facility] NRBC Absolute 0.000 0.000 - 0.000 x10(3)/mc L [facility] Blood 01/25/2023 4:06 AM EDT 01/25/2023 4:17 AM EDT Narrative Resulting Agency Comment Spec In Lab Kyle Mckeon MD HEMATOLOGY ORDERABLE S Performing Organization Address [facility] Co de Phone Number [facility] [place] [address] * (ABNORMAL) Phosphorus (01/25/2023 4:06 AM EDT) Phosphorus 4.9(H) 2.5 - 4.5 mg/dL [facility] Blood 01/25/2023 4:06 AM EDT 01/25/2023 4:17 AM EDT Narrative Resulting Agency Comment Spec In Lab Tanya Seaman MD CHEMISTRY ORDERABL ES Performing Organization Address [facility] de Phone Number [facility] [place] [address] * Magnesium (01/25/2023 4:06 AM EDT) Magnesium 1.00 0.69 - 1.07 mmol/L [facility] Blood 01/25/2023 4:06 AM EDT 01/25/2023 4:17 AM EDT Narrative Resulting Agency Comment Spec In Lab Tanya Seaman MD CHEMISTRY ORDERABL ES Performing Organization Address [facility] de Phone Number [facility] [place] [address] * (ABNORMAL) Basic Metabolic Panel (non-fasting) (01/25/2023 4:06 AM EDT) Glucose 148 65 - 199 mg/dL [facility] Comment:Diabetes: >=200 mg/d L plus symptoms Blood Urea Nitrogen 78(H) 10 - 20 mg/dL [facility] Creatinine 5.06(H) 0.80 - 1.50 mg/dL [facility] Sodium 139 135 - 145 mmol/L [facility] Potassium 4.5 3.5 - 5.0 mmol/L [facility] Comment: Please note: ??Patients with WBC >100,000 may have falsely elevated Potassium levels. ??For accurate Potassium quantification in these patients send serum separator tube (gold top) for subsequent determinations. ??Contact the Clinical Chemistry Laboratory if there are any questions. Chloride 103 98 - 107 mmol/L [facility] Carbon Dioxide 19(L) 22 - 31 mmol/L [facility] Anion Gap 17(H) 5 - 15 mmol/L [facility] Calcium 9.5 8.5 - 10.5 mg/dL [facility] Est Glomerular Filtration Rate 12(L) >=60 mL/min/1. 73 m?? [facility] Comment: This patient's estimated GFR was [...] Lab Tanya Seaman MD CHEMISTRY ORDERABL ES [facility] [place] [address] * POCT Glucose (01/24/2023 10:12 PM EDT) Glucose, POC 175 65 - 199 mg/dL [facility] Comment: Supplemental ranges: <140 mg/dL before meals <180 mg/dL all other times of the day Blood 01/24/2023 10:1 2 PM EDT 01/24/2023 10:12 PM EDT Mendel Luna MD POINT OF CARE TEST O RDERABLES [facility] [place] [address] * POCT Glucose (01/24/2023 4:41 PM EDT) Glucose, POC 157 65 - 199 mg/dL [facility] Comment: Supplemental ranges: <140 mg/dL before meals <180 mg/dL all other times of the day Blood 01/24/2023 4:41 PM EDT 01/24/2023 4:41 PM EDT Mendel Luna MD POINT OF CARE TEST O RDERABLES Performing Organization Address City/[facility]/ZIP Co de Phone Number [facility] [place] [address] * POCT Glucose (01/24/2023 12:10 PM EDT) Glucose, POC 177 65 - 199 mg/dL [facility] Comment: Supplemental ranges: <140 mg/dL before meals <180 mg/dL all other times of the day Blood 01/24/2023 12:1 0 PM EDT 01/24/2023 12:10 PM EDT Mendel Luna MD POINT OF CARE TEST O RDERABLES Performing Organization Address City/[facility]/ZIP Co de Phone Number [facility] [place] [address] * POCT Glucose (01/24/2023 7:51 AM EDT) Glucose, POC 175 65 - 199 mg/dL [facility] Comment: Supplemental ranges: <140 mg/dL before meals <180 mg/dL all other times of the day Blood 01/24/2023 7:51 AM EDT 01/24/2023 7:51 AM EDT Mendel Luna MD POINT OF CARE TEST O RDERABLES [facility] [place] [address] * (ABNORMAL) Phosphorus (01/24/2023 2:56 AM EDT) Phosphorus 5.0(H) 2.5 - 4.5 mg/dL [facility] Blood 01/24/2023 2:56 AM EDT 01/24/2023 3:06 AM EDT Narrative Resulting Agency Comment Spec In Lab Tanya Seaman MD CHEMISTRY ORDERABL ES Performing Organization Address [facility]/ZIP Co de Phone Number [facility] [place] [address] * Magnesium (01/24/2023 2:56 AM EDT) Magnesium 0.94 0.69 - 1.07 mmol/L [facility] Blood 01/24/2023 2:56 AM EDT 01/24/2023 3:06 AM EDT Narrative Resulting Agency Comment Spec In Lab Tanya Seaman MD CHEMISTRY ORDERABL ES Performing Organization Address [facility] Co de Phone Number [facility] [place] [address] * (ABNORMAL) Basic Metabolic Panel (non-fasting) (01/24/2023 2:56 AM EDT) Glucose 131 65 - 199 mg/dL [facility] Comment:Diabetes: >=200 mg/d L plus symptoms Blood Urea Nitrogen 80(H) 10 - 20 mg/dL [facility] Creatinine 5.46(H) 0.80 - 1.50 mg/dL [facility] Sodium 139 135 - 145 mmol/L [facility] Potassium 4.5 3.5 - 5.0 mmol/L [facility] Comment: Please note: ??Patients with WBC >100,000 may have falsely elevated Potassium levels. ??For accurate Potassium quantification in these patients send serum separator tube (gold top) for subsequent determinations. ??Contact the Clinical Chemistry Laboratory if there are any questions. Chloride 104 98 - 107 mmol/L [facility] Carbon Dioxide 21(L) 22 - 31 mmol/L [facility] Anion Gap 14 5 - 15 mmol/L [facility] Calcium 9.3 8.5 - 10.5 mg/dL [facility] Est Glomerular Filtration Rate 11(L) >=60 mL/min/1. 73 m?? [facility] Comment: This patient's estimated GFR was [...] MD CHEMISTRY ORDERABL ES Performing Organization Address City/[facility]/ZIP Co de Phone Number [facility] [place] [address] * POCT Glucose (01/23/2023 9:16 PM EDT) Glucose, POC 150 65 - 199 mg/dL [facility] Comment: Supplemental ranges: <140 mg/dL before meals <180 mg/dL all other times of the day Blood 01/23/2023 9:16 PM EDT 01/23/2023 9:16 PM EDT Mendel Luna MD POINT OF CARE TEST O RDERABLES [facility] [place] [address] * (ABNORMAL) POCT Glucose (01/23/2023 3:13 PM EDT) Glucose, POC 246(H) 65 - 199 mg/dL [facility] Comment: Supplemental ranges: <140 mg/dL before meals <180 mg/dL all other times of the day Blood 01/23/2023 3:13 PM EDT 01/23/2023 3:13 PM EDT Mendel Luna MD POINT OF CARE TEST O RDERABLES Performing Organization Address City/[facility] Co de Phone Number [facility] [place] [address] * POCT Glucose (01/23/2023 11:06 AM EDT) Glucose, POC 163 65 - 199 mg/dL [facility] Comment: Supplemental ranges: <140 mg/dL before meals <180 mg/dL all other times of the day Blood 01/23/2023 11:0 6 AM EDT 01/23/2023 11:06 AM EDT Mendel Luna MD POINT OF CARE TEST O RDERAMARCY Performing Organization Address [facility] Co de Phone Number [facility] [place] [address] * POCT Glucose (01/23/2023 7:46 AM EDT) Glucose, POC 165 65 - 199 mg/dL [facility] Comment: Supplemental ranges: <140 mg/dL before meals <180 mg/dL all other times of the day Blood 01/23/2023 7:46 AM EDT 01/23/2023 7:46 AM EDT Mendel Luna MD POINT OF CARE TEST O RDERABLES Performing Organization Address [facility] Co de Phone Number [facility] [place] [address] * Differential, Automated (01/23/2023 2:53 AM EDT) Neutrophil % 72.0 % [facility] Neutrophil Absolute 5.86 1.70 - 6.10 x10(3)/[facility] LABORAT[facility] Lymph % 13.8 % [facility] Lymphocytes Abs 1.1 0.9 - 3.2 x10(3)/[facility] LABORAT[facility] Monocyte % 9.2 % [facility] Monocyte Abs 0.8 0.3 - 0.9 x10(3)/[facility] Eos % 4.1 % [facility] Eosinophils Abs 0.3 0.0 - 0.4 x10(3)/[facility] Basophil % 0.7 % [facility] Baso Absolute 0.1 0.0 - 0.1 x10(3)/[facility] LABORATORY Immature Gran % 0.20 % [facility] Comment: Immature granulocytes(IG's)percentage and absolute count will include metamyelocytes, myelocytes, and promyelocytes. Blood smears from CBCs yielding IG's will be scanned manually for concordance. If this scan disagrees with the automated IG or if promyelocytes are noted, a manual differential will be performed. Immature Gran Absolute 0.02 0.00 - 0.04 x10(3)/[facility] LAB[facility] Blood 01/23/2023 2:53 AM EDT 01/23/2023 3:05 AM EDT Narrative Resulting Agency Comment Spec In Lab Kyle Mckeon MD HEMATOLOGY ORDERABLE S [facility] [address] * (ABNORMAL) Hemogram (01/23/2023 2:53 AM EDT) White Blood Cell 8.1 4.0 - 9.5 x10(3)/mc L [facility] Red Blood Cell 3.41(L) 4.58 - 5.54 x10(6)/mc L [facility] Hemoglobin 10.4(L) 13.7 - 16.5 g/dL [facility] Hematocrit 30.7(L) 40.5 - 48.5 % [facility] Mean Cell Volume 90.0 82.9 - 93.1 fL [facility] Mean Cell Hemoglobin 30.5 27.5 - 32.1 pg [facility] Mean Cell Hemoglobin Concentration 33.9 32.0 - 35.7 g/dL [facility] Platelet 182 145 - 357 x10(3)/mc L [facility] RDW Standard Deviation 42.3 36.0 - 45.0 fL [facility] RDW coefficient of variation 13.0 11.4 - 13.8 % [facility] Mean Platelet Volume 12.1 7.6 - 12.9 fL [facility] NRBC% auto 0.0 % [facility] NRBC Absolute 0.000 0.000 - 0.000 x10(3)/mc L [facility] Blood 01/23/2023 2:53 AM EDT 01/23/2023 3:05 AM EDT Narrative Resulting Agency Comment Spec In Lab Kyle Mckeon MD HEMATOLOGY ORDERABLE S Performing Organization Address [facility] Co de Phone Number [facility] [place] [address] * (ABNORMAL) Phosphorus (01/23/2023 2:53 AM EDT) Phosphorus 5.8(H) 2.5 - 4.5 mg/dL [facility] Blood 01/23/2023 2:53 AM EDT 01/23/2023 3:05 AM EDT Narrative Resulting Agency Comment Spec In Lab Tanya Seaman MD CHEMISTRY ORDERABL ES Performing Organization Address [facility] Co de Phone Number [facility] [place] [address] * Magnesium (01/23/2023 2:53 AM EDT) Magnesium 0.96 0.69 - 1.07 mmol/L [facility] Blood 01/23/2023 2:53 AM EDT 01/23/2023 3:05 AM EDT Narrative Resulting Agency Comment Spec In Lab Tanya Seaman MD CHEMISTRY ORDERABL ES Performing Organization Address [facility] Co de Phone Number [facility] [place] [address] * (ABNORMAL) Basic Metabolic Panel (non-fasting) (01/23/2023 2:53 AM EDT) Glucose 131 65 - 199 mg/dL [facility] Comment:Diabetes: >=200 mg/d L plus symptoms Blood Urea Nitrogen 81(H) 10 - 20 mg/dL [facility] Creatinine 5.47(H) 0.80 - 1.50 mg/dL [facility] Sodium 139 135 - 145 mmol/L [facility] Potassium 4.4 3.5 - 5.0 mmol/L [facility] Comment: Please note: ??Patients with WBC >100,000 may have falsely elevated Potassium levels. ??For accurate Potassium quantification in these patients send serum separator tube (gold top) for subsequent determinations. ??Contact the Clinical Chemistry Laboratory if there are any questions. Chloride 105 98 - 107 mmol/L [facility] Carbon Dioxide 20(L) 22 - 31 mmol/L [facility] Anion Gap 14 5 - 15 mmol/L [facility] Calcium 9.2 8.5 - 10.5 mg/dL [facility] Est Glomerular Filtration Rate 11(L) >=60 mL/min/1. 73 m?? [facility] Comment: This patient's estimated GFR was [...] Lab Tanya Seaman MD CHEMISTRY ORDERABL ES [facility] [place] [place] [address] * (ABNORMAL) POCT Glucose (01/22/2023 7:28 PM EDT) Glucose, POC 237(H) 65 - 199 mg/dL [facility] Comment: Supplemental ranges: <140 mg/dL before meals <180 mg/dL all other times of the day Blood 01/22/2023 7:28 PM EDT 01/22/2023 7:28 PM EDT Mendel Luna MD POINT OF CARE TEST O RDERABLES Performing Organization Address [facility] de Phone Number [facility] [place] [phone] * POCT Glucose (01/22/2023 5:30 PM EDT) Glucose, POC 130 65 - 199 mg/dL [facility] Comment: Supplemental ranges: <140 mg/dL before meals <180 mg/dL all other times of the day Blood 01/22/2023 5:30 PM EDT 01/22/2023 5:30 PM EDT Mendel Luna MD POINT OF CARE TEST O TESSA Performing Organization Address [facility] de Phone Number [facility] [place] [address] * CARDIAC CATHETERIZATION (01/22/2023 5:10 PM EDT) Anatomical Region Laterality Modality Other Narrative 01/22/2023 5:07 PM EDT ?[facility] ? Cardiac Catheterization/Intervention Report ? Patient Name: Cook, Miguel ? Procedure Date: 01/22/2023 ? A #: [id number] ? Primary Physician: Arturo, Layton P ? Case #: [id number] ? File Name: [id number] ? Catheterization Order Number: [id number] ? [facility] ? Final Report [place], [place] ? Patient Name: ? Miguel Cook ? ID#: ?[id number] ? : ?1955 ? Procedure Date: ? [...] procedure was Urgent. The indication for ?the laboratory analyst visit is cardiomyopathy. Chest pain symptom assessment [...] Layton Morris MD - 01/22/2023 [facility] Cardiac Catheterization/Intervention Report Patient Name: Migule Sanchez Procedure Date: 01/22/2023 A #: [id number] Primary Physician: Layton Morris Case #: [id number] File Name: [id number] Catheterization Order Number: [id number] [facility] FinalReport [place], [place] Patient Name: Miguel Sanchez ID#:[id number] :1955 Procedure Date: January 22, 2023 Case #: [id number] Room: 5 Case Physician: Layton Morris M.D. Start: 16:35 Fellow: Mario Alberto Glasgow M.D. Admission:01/18/2023 Referring Physician: Elham Dykes M.D. Procedures: * Right Heart Catheterization * Oximetry History Miugel Sanchez is a 67 year old man. The patient's smoking status isNever. The patient has a history of CHF. The CHF is NYHA Functional ClassIII, is newly diagnosed and is classified as Systolic. Prior to theinitiation of this procedure, the patient was designated as ASA Class III. [facility] frailty scale is 5: Mildly Frail. Diagnostic Tests: Medications Prior to Procedure: Angiotensin Converting Enzyme Inhibitor, Aspirin, Beta Blockerand Statin. Indications for Diagnostic Cath: The priority of the diagnostic procedure was Urgent. The indicationfor the laboratory analyst visit is cardiomyopathy. Chest pain symptom assessmentwas: [...] Glucose, POC 165 65 - 199 mg/dL [facility] Comment: Supplemental ranges: <140 mg/dL before meals <180 mg/dL all other times of the day Blood 01/22/2023 12:3 5 PM EDT 01/22/2023 12:35 PM EDT Mendel Luna MD POINT OF CARE TEST O RDERAMARCY [facility] [place] [address] * POCT Glucose (01/22/2023 7:52 AM EDT) Glucose, POC 145 65 - 199 mg/dL [facility] Comment: Supplemental ranges: <140 mg/dL before meals <180 mg/dL all other times of the day Blood 01/22/2023 7:52 AM EDT 01/22/2023 7:52 AM EDT Chris Lim MD POINT OF CARE TEST O RDERABLES [facility] [place] [address] * Differential, Automated (01/22/2023 2:42 AM EDT) Neutrophil % 73.7 % [facility] Neutrophil Absolute 6.10 1.70 - 6.10 x10(3)/mcL [facility] Lymph % 12.5 % [facility] Lymphocytes Abs 1.0 0.9 - 3.2 x10(3)/[facility] Monocyte % 8.8 % [facility] Monocyte Abs 0.7 0.3 - 0.9 x10(3)/[facility] Eos % 4.1 % [facility] Eosinophils Abs 0.3 0.0 - 0.4 x10(3)/[facility] Basophil % 0.7 % [facility] Baso Absolute 0.1 0.0 - 0.1 x10(3)/[facility] LABORATORY Immature Gran % 0.20 % [facility] Comment: Immature granulocytes(IG's)percentage and absolute count will include metamyelocytes, myelocytes, and promyelocytes. Blood smears from CBCs yielding IG's will be scanned manually for concordance. If this scan disagrees with the automated IG or if promyelocytes are noted, a manual differential will be performed. Immature Gran Absolute 0.02 0.00 - 0.04 x10(3)/[facility] Blood 01/22/2023 2:42 AM EDT 01/22/2023 3:03 AM EDT Narrative Resulting Agency Comment Spec In Lab Kyle Mckeon MD HEMATOLOGY ORDERABLE S [facility] [place] [address] * (ABNORMAL) Hemogram (01/22/2023 2:42 AM EDT) White Blood Cell 8.3 4.0 - 9.5 x10(3)/mc L [facility] Red Blood Cell 3.41(L) 4.58 - 5.54 x10(6)/mc L [facility] Hemoglobin 10.3(L) 13.7 - 16.5 g/dL [facility] Hematocrit 30.8(L) 40.5 - 48.5 % [facility] Mean Cell Volume 90.3 82.9 - 93.1 fL [facility] Mean Cell Hemoglobin 30.2 27.5 - 32.1 pg [facility] Mean Cell Hemoglobin Concentration 33.4 32.0 - 35.7 g/dL [facility] Platelet 183 145 - 357 x10(3)/mc L [facility] RDW Standard Deviation 42.0 36.0 - 45.0 fL [facility] RDW coefficient of variation 12.9 11.4 - 13.8 % [facility] Mean Platelet Volume 12.1 7.6 - 12.9 fL [facility] NRBC% auto 0.0 % [facility] NRBC Absolute 0.000 0.000 - 0.000 x10(3)/mc L [facility] Blood 01/22/2023 2:42 AM EDT 01/22/2023 3:03 AM EDT Narrative Resulting Agency Comment Spec In Lab Kyle Mckeon MD HEMATOLOGY ORDERABLE S Performing Organization Address [facility] Co de Phone Number [facility] [place] [address] * (ABNORMAL) Phosphorus (01/22/2023 2:42 AM EDT) Phosphorus 5.8(H) 2.5 - 4.5 mg/dL [facility] Blood 01/22/2023 2:42 AM EDT 01/22/2023 3:03 AM EDT Narrative Resulting Agency Comment Spec In Lab Tanya Seaman MD CHEMISTRY ORDERABL ES Performing Organization Address [facility] Co de Phone Number [facility] [place] [address] * Magnesium (01/22/2023 2:42 AM EDT) Magnesium 0.97 0.69 - 1.07 mmol/L [facility] Blood 01/22/2023 2:42 AM EDT 01/22/2023 3:03 AM EDT Narrative Resulting Agency Comment Spec In Lab Tanya Seaman MD CHEMISTRY ORDERABL ES Performing Organization Address [facility] Co de Phone Number [facility] [place] [address] * (ABNORMAL) Basic Metabolic Panel (non-fasting) (01/22/2023 2:42 AM EDT) Glucose 153 65 - 199 mg/dL [facility] Comment:Diabetes: >=200 mg/d L plus symptoms Blood Urea Nitrogen 79(H) 10 - 20 mg/dL [facility] Creatinine 5.86(H) 0.80 - 1.50 mg/dL [facility] Sodium 138 135 - 145 mmol/L [facility] Potassium 4.2 3.5 - 5.0 mmol/L [facility] Comment: Please note: ??Patients with WBC >100,000 may have falsely elevated Potassium levels. ??For accurate Potassium quantification in these patients send serum separator tube (gold top) for subsequent determinations. ??Contact the Clinical Chemistry Laboratory if there are any questions. Chloride 104 98 - 107 mmol/L [facility] Carbon Dioxide 20(L) 22 - 31 mmol/L [facility] Anion Gap 14 5 - 15 mmol/L [facility] Calcium 9.2 8.5 - 10.5 mg/dL [facility] Est Glomerular Filtration Rate 10(L) >=60 mL/min/1. 73 m?? [facility] Comment: This patient's estimated GFR was [...] Lab Tanya Seaman MD CHEMISTRY ORDERABL ES [facility] [place] [address] * C3 Complement (01/22/2023 2:42 AM EDT) Complement C3 126 90 - 180 mg/dL [facility] Blood 01/22/2023 2:42 AM EDT 01/22/2023 3:03 AM EDT Narrative Resulting Agency Comment Spec In Lab Chris Lim MD CHEMISTRY ORDERABLES [facility] [place] [address] * POCT Glucose (01/21/2023 6:41 PM EDT) Glucose, POC 199 65 - 199 mg/dL [facility] Comment: Supplemental ranges: <140 mg/dL before meals <180 mg/dL all other times of the day Blood 01/21/2023 6:41 PM EDT 01/21/2023 6:41 PM EDT Chris Lim MD POINT OF CARE TEST O RDERABLES Performing Organization Address City/[facility]/ZIP Co de Phone Number [facility] [place] [address] * POCT Glucose (01/21/2023 3:57 PM EDT) Glucose, POC 125 65 - 199 mg/dL [facility] Comment: Supplemental ranges: <140 mg/dL before meals <180 mg/dL all other times of the day Blood 01/21/2023 3:57 PM EDT 01/21/2023 3:57 PM EDT Chris Lim MD POINT OF CARE TEST O RDERABLES [facility] [place] [address] * (ABNORMAL) POCT Glucose (01/21/2023 11:32 AM EDT) Glucose, POC 249(H) 65 - 199 mg/dL [facility] Comment: Supplemental ranges: <140 mg/dL before meals <180 mg/dL all other times of the day Blood 01/21/2023 11:3 2 AM EDT 01/21/2023 11:32 AM EDT Chris Lim MD POINT OF CARE TEST O TESSA [facility] [place] [address] * (ABNORMAL) POCT Glucose (01/21/2023 9:38 AM EDT) Glucose, POC 233(H) 65 - 199 mg/dL [facility] Comment: Supplemental ranges: <140 mg/dL before meals <180 mg/dL all other times of the day Blood 01/21/2023 9:38 AM EDT 01/21/2023 9:38 AM EDT Chris Lim MD POINT OF CARE TEST O TESSA Performing Organization Address [facility] Co de Phone Number [facility] [place] [address] * EKG 12 Lead (01/21/2023 8:33 AM EDT) Ventricular rate 74 BPM MUSE SYSTEM Atrial Rate 74 BPM MUSE SYSTEM P-R Interval 180 ms MUSE SYSTEM QRS Duration 126 ms MUSE SYSTEM Q-T Interval 454 ms MUSE SYSTEM QTC Calculated (Bezet) 503 ms MUSE SYSTEM Calculated P [place] 32 degrees MUSE SYSTEM Calculated R [place] -35 degrees MUSE SYSTEM Calculated T [place] 97 degrees MUSE SYSTEM INTERPRETATION Normal sinus rhythm Left axis deviation Non-specific intra-ventricu lar conduction block Nonspecific T wave abnormality Abnormal ECG When compared with ECG of 18-JAN-2023 18:52, No significant change was found Confirmed by fellow Lacey Oliveros ([id number]) on 01/23/2023 10:03:20 AM Confirmed by MD Carlos, Galo ([id number]) on 01/24/2023 8:22:03 AM MUSE SYSTEM 01/21/2023 8:33 AM EDT 01/24/2023 8:22 AM EDT Tanya Seaman MD ECG ORDERABLES MUSE SYSTEM * POCT Glucose (01/21/2023 8:05 AM EDT) Glucose, POC 178 65 - 199 mg/dL [facility] Comment: Supplemental ranges: <140 mg/dL before meals <180 mg/dL all other times of the day Blood 01/21/2023 8:05 AM EDT 01/21/2023 8:05 AM EDT Chris Lim MD POINT OF CARE TEST O RDERABLES [facility] [place] [address] * Differential, Automated (01/21/2023 2:42 AM EDT) Neutrophil % 70.7 % [facility] Neutrophil Absolute 5.75 1.70 - 6.10 x10(3)/[facility] LAB[facility] Lymph % 14.5 % [facility] Lymphocytes Abs 1.2 0.9 - 3.2 x10(3)/[facility] Monocyte % 9.1 % [facility] Monocyte Abs 0.7 0.3 - 0.9 x10(3)/[facility] LAB[facility] Eos % 4.6 % [facility] Eosinophils Abs 0.4 0.0 - 0.4 x10(3)/[facility] Basophil % 0.7 % [facility] Baso Absolute 0.1 0.0 - 0.1 x10(3)/[facility] LAB[facility] Immature Gran % 0.40 % [facility] Comment: Immature granulocytes(IG's)percentage and absolute count will include metamyelocytes, myelocytes, and promyelocytes. Blood smears from CBCs yielding IG's will be scanned manually for concordance. If this scan disagrees with the automated IG or if promyelocytes are noted, a manual differential will be performed. Immature Gran Absolute 0.03 0.00 - 0.04 x10(3)/[facility] LAB[facility] Blood 01/21/2023 2:42 AM EDT 01/21/2023 2:59 AM EDT Narrative Resulting Agency Comment Spec In Lab Kyle Mckeon MD HEMATOLOGY ORDERABLE S [facility] [place] [address] * (ABNORMAL) Hemogram (01/21/2023 2:42 AM EDT) White Blood Cell 8.1 4.0 - 9.5 x10(3)/mc L [facility] Red Blood Cell 3.59(L) 4.58 - 5.54 x10(6)/mc L [facility] Hemoglobin 11.1(L) 13.7 - 16.5 g/dL [facility] Hematocrit 32.4(L) 40.5 - 48.5 % [facility] Mean Cell Volume 90.3 82.9 - 93.1 fL [facility] Mean Cell Hemoglobin 30.9 27.5 - 32.1 pg [facility] Mean Cell Hemoglobin Concentration 34.3 32.0 - 35.7 g/dL [facility] Platelet 202 145 - 357 x10(3)/mc L [facility] RDW Standard Deviation 42.5 36.0 - 45.0 fL [facility] RDW coefficient of variation 12.8 11.4 - 13.8 % [facility] Mean Platelet Volume 12.3 7.6 - 12.9 fL [facility] NRBC% auto 0.0 % [facility] NRBC Absolute 0.000 0.000 - 0.000 x10(3)/mc L [facility] Blood 01/21/2023 2:42 AM EDT 01/21/2023 2:59 AM EDT Narrative Resulting Agency Comment Spec In Lab Kyle Mckeon MD HEMATOLOGY ORDERABLE S [facility] [place] [address] * (ABNORMAL) Phosphorus (01/21/2023 2:42 AM EDT) Phosphorus 5.3(H) 2.5 - 4.5 mg/dL [facility] Blood 01/21/2023 2:42 AM EDT 01/21/2023 2:58 AM EDT Narrative Resulting Agency Comment Spec In Lab Tanya Seaman MD CHEMISTRY ORDERABL ES Performing Organization Address [facility]/ZIP Co de Phone Number [facility] [place] [address] * Magnesium (01/21/2023 2:42 AM EDT) Magnesium 0.99 0.69 - 1.07 mmol/L [facility] Blood 01/21/2023 2:42 AM EDT 01/21/2023 2:58 AM EDT Narrative Resulting Agency Comment Spec In Lab Tanya Seaman MD CHEMISTRY ORDERABL ES Performing Organization Address [facility] Co de Phone Number [facility] [place] [address] * (ABNORMAL) Basic Metabolic Panel (non-fasting) (01/21/2023 2:42 AM EDT) Glucose 120 65 - 199 mg/dL [facility] Comment:Diabetes: >=200 mg/d L plus symptoms Blood Urea Nitrogen 72(H) 10 - 20 mg/dL [facility] Creatinine 5.70(H) 0.80 - 1.50 mg/dL [facility] Sodium 140 135 - 145 mmol/L [facility] Potassium 4.2 3.5 - 5.0 mmol/L [facility] Comment: Please note: ??Patients with WBC >100,000 may have falsely elevated Potassium levels. ??For accurate Potassium quantification in these patients send serum separator tube (gold top) for subsequent determinations. ??Contact the Clinical Chemistry Laboratory if there are any questions. Chloride 100 98 - 107 mmol/L [facility] Carbon Dioxide 20(L) 22 - 31 mmol/L [facility] Anion Gap 20(H) 5 - 15 mmol/L [facility] Calcium 9.3 8.5 - 10.5 mg/dL [facility] Est Glomerular Filtration Rate 10(L) >=60 mL/min/1. 73 m?? [facility] Comment: This patient's estimated [...] ORDERABL ES Performing Organization Address [facility] Co de Phone Number [facility] [place] [address] * POCT Glucose (01/20/2023 7:45 PM EDT) Glucose, POC 158 65 - 199 mg/dL [facility] Comment: Supplemental ranges: <140 mg/dL before meals <180 mg/dL all other times of the day Blood 01/20/2023 7:45 PM EDT 01/20/2023 7:45 PM EDT Chris Lim MD POINT OF CARE TEST O RDERABLES [facility] [place] [address] * POCT Glucose (01/20/2023 4:38 PM EDT) Glucose, POC 96 65 - 199 mg/dL [facility] Comment: Supplemental ranges: <140 mg/dL before meals <180 mg/dL all other times of the day Blood 01/20/2023 4:38 PM EDT 01/20/2023 4:38 PM EDT Chris Lim MD POINT OF CARE TEST O RDERABLES Performing Organization Address City/[facility]/ZIP Co de Phone Number [facility] [place] [address] * POCT Glucose (01/20/2023 4:14 PM EDT) Glucose, POC 101 65 - 199 mg/dL [facility] Comment: Supplemental ranges: <140 mg/dL before meals <180 mg/dL all other times of the day Blood 01/20/2023 4:14 PM EDT 01/20/2023 4:14 PM EDT Chris Lim MD POINT OF CARE TEST O RDERABLES Performing Organization Address [facility] Co de Phone Number [facility] [place] [address] * Hepatitis C Antibody (01/20/2023 3:23 PM EDT) Hepatitis C Antibody Negative Negative [facility] Blood 01/20/2023 3:23 PM EDT 01/20/2023 3:28 PM EDT Narrative Resulting Agency Comment Spec In Lab Austin Sosa MD CHEMISTRY ORDERABLES Performing Organization Address [facility] Co de Phone Number [facility] [place] [address] * Hepatitis B Core Antibody, Total (01/20/2023 3:23 PM EDT) Hepatitis B Core Antibody Negative Negative [facility] Blood 01/20/2023 3:23 PM EDT 01/20/2023 3:28 PM EDT Narrative Resulting Agency Comment Spec In Lab Chris Lim MD CHEMISTRY ORDERABLES Performing Organization Address [facility] Co de Phone Number [facility] [place] [address] * Hepatitis B Surface Antibody (01/20/2023 3:23 PM EDT) Hepatitis B Surface Antibody, Quantitative <3.5 IU/L [facility] Comment: HepB Surface Ab Quant: Unvaccinated: < 8.5 IU/L Vaccinated: >= 11.5 IU/L Hepatitis B Surface Antibody Negative [facility] Comment: Patient is presumed to be not vaccinated or immune to HBV infection. Expected Results: Vaccinated: Positive Unvaccinated: Negative Blood 01/20/2023 3:23 PM EDT 01/20/2023 3:28 PM EDT Narrative Resulting Agency Comment Spec In Lab Chris Lim MD CHEMISTRY ORDERABLES Performing Organization Address [facility] Co de Phone Number [facility] [address] * HIV Screen, 4th Generation ([facility]/CGP/APD/NLH) (01/20/2023 3:23 PM EDT) HIV Ab/Ag Screen Negative Negative [facility] Comment: This 4th Generation HIV test [...] HIV Comment Low Risk of HIV Infection [facility] Blood 01/20/2023 3:23 PM EDT 01/20/2023 3:28 PM EDT Narrative Resulting Agency Comment Spec In Lab Chris Lim MD CHEMISTRY ORDERABLES Performing Organization Address [facility] Co de Phone Number [facility] [place] [address] * (ABNORMAL) POCT Glucose (01/20/2023 11:33 AM EDT) Glucose, POC 206(H) 65 - 199 mg/dL [facility] Comment: Supplemental ranges: <140 mg/dL before meals <180 mg/dL all other times of the day Blood 01/20/2023 11:3 3 AM EDT 01/20/2023 11:33 AM EDT Chris Lim MD POINT OF CARE TEST O RDERABLES Performing Organization Address City/[facility]/ZIP Co de Phone Number [facility] [place] [address] * POCT Glucose (01/20/2023 7:24 AM EDT) Pathologist [facility] Glucose, POC 152 65 - 199 mg/dL [facility] Comment: Supplemental ranges: <140 mg/dL before meals <180 mg/dL all other times of the day Blood 01/20/2023 7:24 AM EDT 01/20/2023 7:24 AM EDT Chris Lim MD POINT OF CARE TEST O RDERABLES Performing Organization Address [facility] Co de Phone Number [facility] [place] [address] * Immunoglobulins, Quantitative (01/20/2023 3:26 AM EDT) [facility] Immunoglobulin G 880 700 - 1,600 mg/dL [facility] Comment: Pediatric Reference Intervals obtained from the [employer] Reference Interval project. http://www.[employer].ca/caliperproject/index.html IgA 286 70 - 400 mg/dL [facility] IgM 72 40 - 230 mg/dL [facility] Blood Venous Draw / Unknown 01/20/2023 3:26 AM EDT 01/20/2023 3:44 AM EDT Narrative Resulting Agency Comment Spec In Lab Deonte Lugo MD CHEMISTRY ORDERABLE S Performing Organization Address City/[facility]/ZIP Co de Phone Number [facility] [place] [address] * Immunofixation Electrophoresis (01/20/2023 3:26 AM EDT) [facility] Immunofixation Interpretation See Note [facility] Comment: No specific abnormality observed. Dr. Arnulfo Moore 01/23/2023 See scanned report. Blood Venous Draw / Unknown 01/20/2023 3:26 AM EDT 01/20/2023 3:44 AM EDT Narrative Resulting Agency Comment Spec In Lab Deonte Lugo MD CHEMISTRY ORDERABLE S Performing Organization Address [facility] Co de Phone Number [facility] [place] [address] * Protein Electrophoresis, serum (01/20/2023 3:26 AM EDT) Total Prot Electrophoresis 6.5 6.1 - 8.0 g/dL [facility] Albumin Electrophoresis 4.11 3.20 - 5.20 g/dL [facility] Alpha 1 Globulin 0.25 0.10 - 0.30 g/dL [facility] Alpha 2 Globulin 0.75 0.40 - 0.90 g/dL [facility] Beta Globulin 0.68 0.50 - 1.00 g/dL [facility] Gamma Globulin 0.71 0.50 - 1.30 g/dL [facility] M1 Band Comments Below None Detected [facility] SPEP Comments See Note [facility] Comment: Serum protein electrophoresis (PEP) shows [...] ORDERABLE S Performing Organization Address [facility] Co de Phone Number [facility] [address] * C4 Complement (01/20/2023 3:26 AM EDT) Complement C4 31 10 - 40 mg/dL [facility] Blood Venous Draw / Unknown 01/20/2023 3:26 AM EDT 01/20/2023 3:44 AM EDT Narrative Resulting Agency Comment Spec In Lab Deonte Lugo MD CHEMISTRY ORDERABLE S Performing Organization Address City/[facility] Co de Phone Number [facility] [place] [address] * (ABNORMAL) Free Light Chains, Serum (01/20/2023 3:26 AM EDT) [place] Free Light Chain 8.16(H) 0.72 - 2.75 mg/dL [facility] Lambda Free Light Chain 4.53(H) 0.57 - 2.15 mg/dL [facility] [place]/Lambda FLC Ratio 1.8013 0.4000 - 2.5800 [facility] Blood Venous Draw / Unknown 01/20/2023 3:26 AM EDT 01/20/2023 3:44 AM EDT Narrative Resulting Agency Comment Spec In Lab Deonte Lugo MD CHEMISTRY ORDERABLE S Performing Organization Address [facility] Co de Phone Number [facility] [place] [address] * Differential, Automated (01/20/2023 3:26 AM EDT) Pathologist [facility] Neutrophil % 75.0 % [facility] Neutrophil Absolute 6.04 1.70 - 6.10 x10(3)/[facility] Lymph % 12.2 % [facility] Lymphocytes Abs 1.0 0.9 - 3.2 x10(3)/[facility] Monocyte % 8.6 % [facility] Monocyte Abs 0.7 0.3 - 0.9 x10(3)/[facility] Eos % 3.3 % [facility] Eosinophils Abs 0.3 0.0 - 0.4 x10(3)/[facility] Basophil % 0.7 % [facility] Baso Absolute 0.1 0.0 - 0.1 x10(3)/[facility] Immature Gran % 0.20 % [facility] Comment: Immature granulocytes(IG's)percentage and absolute count will include metamyelocytes, myelocytes, and promyelocytes. Blood smears from CBCs yielding IG's will be scanned manually for concordance. If this scan disagrees with the automated IG or if promyelocytes are noted, a manual differential will be performed. Immature Gran Absolute 0.02 0.00 - 0.04 x10(3)/mcL [facility] Blood 01/20/2023 3:26 AM EDT 01/20/2023 3:42 AM EDT Narrative Resulting Agency Comment Spec In Lab Kyle Mckeon MD HEMATOLOGY ORDERABLE S [facility] [place] [address] * (ABNORMAL) Hemogram (01/20/2023 3:26 AM EDT) White Blood Cell 8.1 4.0 - 9.5 x10(3)/mc L [facility] Red Blood Cell 3.54(L) 4.58 - 5.54 x10(6)/mc L [facility] Hemoglobin 10.8(L) 13.7 - 16.5 g/dL [facility] Hematocrit 32.5(L) 40.5 - 48.5 % [facility] Mean Cell Volume 91.8 82.9 - 93.1 fL [facility] Mean Cell Hemoglobin 30.5 27.5 - 32.1 pg [facility] Mean Cell Hemoglobin Concentration 33.2 32.0 - 35.7 g/dL [facility] Platelet 202 145 - 357 x10(3)/mc L [facility] RDW Standard Deviation 42.9 36.0 - 45.0 fL [facility] RDW coefficient of variation 12.7 11.4 - 13.8 % [facility] Mean Platelet Volume 11.6 7.6 - 12.9 fL [facility] NRBC% auto 0.0 % [facility] NRBC Absolute 0.000 0.000 - 0.000 x10(3)/mc L [facility] Blood 01/20/2023 3:26 AM EDT 01/20/2023 3:42 AM EDT Narrative Resulting Agency Comment Spec In Lab Kyle Mckeon MD HEMATOLOGY ORDERABLE S [facility] [place] [address] * (ABNORMAL) Phosphorus (01/20/2023 3:26 AM EDT) Phosphorus 4.7(H) 2.5 - 4.5 mg/dL [facility] Blood 01/20/2023 3:26 AM EDT 01/20/2023 3:42 AM EDT Narrative Resulting Agency Comment Spec In Lab Tanya Seaman MD CHEMISTRY ORDERABL ES Performing Organization Address City/[facility] Co de Phone Number [facility] [place] [address] * Magnesium (01/20/2023 3:26 AM EDT) Magnesium 0.95 0.69 - 1.07 mmol/L [facility] Blood 01/20/2023 3:26 AM EDT 01/20/2023 3:42 AM EDT Narrative Resulting Agency Comment Spec In Lab Tanya Seaman MD CHEMISTRY ORDERABL ES Performing Organization Address [facility] Co de Phone Number [facility] [place] [address] * (ABNORMAL) Basic Metabolic Panel (non-fasting) (01/20/2023 3:26 AM EDT) Glucose 109 65 - 199 mg/dL [facility] Comment:Diabetes: >=200 mg/d L plus symptoms Blood Urea Nitrogen 67(H) 10 - 20 mg/dL [facility] Creatinine 5.79(H) 0.80 - 1.50 mg/dL [facility] Sodium 139 135 - 145 mmol/L [facility] Potassium 4.5 3.5 - 5.0 mmol/L [facility] Comment: Please note: ??Patients with WBC >100,000 may have falsely elevated Potassium levels. ??For accurate Potassium quantification in these patients send serum separator tube (gold top) for subsequent determinations. ??Contact the Clinical Chemistry Laboratory if there are any questions. Chloride 102 98 - 107 mmol/L [facility] Carbon Dioxide 20(L) 22 - 31 mmol/L [facility] Anion Gap 17(H) 5 - 15 mmol/L [facility] Calcium 8.8 8.5 - 10.5 mg/dL [facility] Est Glomerular Filtration Rate 10(L) >=60 mL/min/1. 73 m?? [facility] Comment: This patient's estimated GFR was [...] MD CHEMISTRY ORDERABL ES Performing Organization Address City/[facility]/ZIP Co de Phone Number [facility] [place] [address] * (ABNORMAL) Ferritin (01/20/2023 3:26 AM EDT) Ferritin 478(H) 30 - 400 ng/mL [facility] Comment: Pediatric reference ranges not verified at [facility], interpret with caution. Reference ranges for females greater than 50 years of age approach values for men, i.e., 30-400 ng/mL. Blood 01/20/2023 3:26 AM EDT 01/20/2023 3:42 AM EDT Narrative Resulting Agency Comment Spec In Lab Sixto Morrow MD CHEMISTRY ORDERABLES Performing Organization Address City/[facility]/ZIP Co de Phone Number [facility] [place] [address] * (ABNORMAL) Iron and TIBC (01/20/2023 3:26 AM EDT) Iron 68 45 - 160 mcg/dL [facility] TIBC 229(L) 250 - 450 mcg/dL [facility] Iron Saturation 30 20 - 50 % [facility] Blood 01/20/2023 3:26 AM EDT 01/20/2023 3:42 AM EDT Narrative Resulting Agency Comment Spec In Lab Sixto Morrow MD CHEMISTRY ORDERABLES Performing Organization Address [facility] Co de Phone Number [facility] [place] [address] * (ABNORMAL) PTH (01/20/2023 3:26 AM EDT) Parathyroid Hormone 401(H) 15 - 65 pg/mL [facility] Blood 01/20/2023 3:26 AM EDT 01/20/2023 3:42 AM EDT Narrative Resulting Agency Comment Spec In Lab Sixto Morrow MD CHEMISTRY ORDERABLES Performing Organization Address [facility] de Phone Number [facility] [place] [address] * (ABNORMAL) Vitamin D, 25-Hydroxy (01/20/2023 3:26 AM EDT) Vitamin D Total 25 OH 9(L) 21 - 100 ng/mL [facility] Vit D Interp Deficient [facility] Blood 01/20/2023 3:26 AM EDT 01/20/2023 3:42 AM EDT Narrative Resulting Agency Comment Spec In Lab Sixto Morrow MD CHEMISTRY ORDERABLES Performing Organization Address City/[facility] Co de Phone Number [facility] [place] [address] * POCT Glucose (01/19/2023 9:33 PM EDT) Glucose, POC 112 65 - 199 mg/dL [facility] Comment: Supplemental ranges: <140 mg/dL before meals <180 mg/dL all other times of the day Blood 01/19/2023 9:33 PM EDT 01/19/2023 9:33 PM EDT Chris Lim MD POINT OF CARE TEST O RDERABLES Performing Organization Address City/[facility]/ZIP Co de Phone Number [facility] [place] [address] * POCT Glucose (01/19/2023 4:37 PM EDT) Glucose, POC 175 65 - 199 mg/dL [facility] Comment: Supplemental ranges: <140 mg/dL before meals <180 mg/dL all other times of the day Blood 01/19/2023 4:37 PM EDT 01/19/2023 4:37 PM EDT Chris Lim MD POINT OF CARE TEST O RDERABLES Performing Organization Address [facility] Co de Phone Number [facility] [place] [address] * (ABNORMAL) Basic Metabolic Panel (non-fasting) (01/19/2023 2:15 PM EDT) Glucose 206(H) 65 - 199 mg/dL [facility] Comment:Diabetes: >=200 mg/d L plus symptoms Blood Urea Nitrogen 59(H) 10 - 20 mg/dL [facility] Creatinine 5.69(H) 0.80 - 1.50 mg/dL [facility] Sodium 140 135 - 145 mmol/L [facility] Potassium 4.4 3.5 - 5.0 mmol/L [facility] Comment: Please note: ??Patients with WBC >100,000 may have falsely elevated Potassium levels. ??For accurate Potassium quantification in these patients send serum separator tube (gold top) for subsequent determinations. ??Contact the Clinical Chemistry Laboratory if there are any questions. Chloride 102 98 - 107 mmol/L [facility] Carbon Dioxide 22 22 - 31 mmol/L [facility] Anion Gap 16(H) 5 - 15 mmol/L [facility] Calcium 9.3 8.5 - 10.5 mg/dL [facility] Est Glomerular Filtration Rate 10(L) >=60 mL/min/1. 73 m?? [facility] Comment: This patient's estimated [...] ORDERABL ES Performing Organization Address [facility] Co de Phone Number [facility] [place] [address] * POCT Glucose (01/19/2023 11:31 AM EDT) Glucose, POC 96 65 - 199 mg/dL [facility] Comment: Supplemental ranges: <140 mg/dL before meals <180 mg/dL all other times of the day Blood 01/19/2023 11:3 1 AM EDT 01/19/2023 11:31 AM EDT Chris Lim MD POINT OF CARE TEST O RDERABLES Performing Organization Address [facility]/ZIP Co de Phone Number [facility] [place] [address] * (ABNORMAL) Basic Metabolic Panel (non-fasting) (01/19/2023 10:29 AM EDT) Glucose 87 65 - 199 mg/dL [facility] Comment:Diabetes: >=200 mg/d L plus symptoms Blood Urea Nitrogen 60(H) 10 - 20 mg/dL [facility] Creatinine 5.63(H) 0.80 - 1.50 mg/dL [facility] Sodium 143 135 - 145 mmol/L [facility] Potassium 4.4 3.5 - 5.0 mmol/L [facility] Comment: Please note: ??Patients with WBC >100,000 may have falsely elevated Potassium levels. ??For accurate Potassium quantification in these patients send serum separator tube (gold top) for subsequent determinations. ??Contact the Clinical Chemistry Laboratory if there are any questions. Chloride 107 98 - 107 mmol/L [facility] Carbon Dioxide 21(L) 22 - 31 mmol/L [facility] Anion Gap 15 5 - 15 mmol/L [facility] Calcium 9.1 8.5 - 10.5 mg/dL [facility] Est Glomerular Filtration Rate 10(L) >=60 mL/min/1. 73 m?? [facility] Comment: This patient's estimated GFR was [...] MD CHEMISTRY ORDERABL ES Performing Organization Address City/State/[facility] Co de Phone Number [facility] [place] [address] * ECHO COMPLETE W CONTRAST (01/19/2023 8:59 AM EDT) Anatomical Region Laterality Modality Cardiac Other 01/19/2023 6:52 AM EDT Narrative 01/19/2023 11:43 AM EDT ? Echocardiogram Report Name: MIGUEL SANCHEZ ? Study Date: 01/19/2023 06:52 AMBP: 142/82 mmHg ? [facility] 1955 ? Height: 165 cm ? Account: [id number] Age: 67 yrs ? Weight: 110 kg Gender: Male ?BSA: 2.1 m2 Ordering Physician: TANYA SEAMAN Referring Physician: ELHAM DYKES Performed By: Cathleen Ware RDCS Reason For Study: Heart failure Interpreting Fellow: Martin Reyes. Exam Location: [facility]. Interpretation Summary Left ventricle is mildly [...] ventricular systolic function has further decreased. Procedure Complete-37405. Satisfactory quality. Left Ventricle Left ventricle is [...] Date: 306:52 AMBP: 142/82 mmHg Patient Location: [address] : 1955 Height: 165 cm Account: [id number] Age: 67 yrs Weight: 110 kg Gender: Male BSA: 2.1 m2 Ordering Physician: TANYA SEAMAN Referring Physician: ELHAM DYKES Performed By: Cathleen Ware RDCS Reason For Study: Heart failure Interpreting Fellow: Martin Reyes. Exam Location: [facility]. Interpretation Summary Left ventricle is mildly [...] left ventricular systolicfunction has further decreased. Procedure Complete-17007. Satisfactory quality. Left Ventricle Left ventricle is [...] bladder.. Electronically signed by: Jimmie العراقي MD, [facility] ([phone]), at 01/19/2023 8:39 AM Thank you for letting us participate in the care of this patient. If you are a health care provider and have any questions regarding this report, please contact the number above. For patients who have questions, please contact the health clinical care leader that requested your imaging first. ?Jimmie العراقي, Staff Physician Electronically Signed Final Report ?? 01/19/2023 08:47 am Narrative 01/19/2023 8:47 AM EDT Renal ? (Signed Final 01/19/2023 08:47 am) PATIENT INFO: ID #: ? [id number] ?: ??[birth year] (67 yrs)(M) Name: ? MIGUEL SANCHEZ ? Visit Date: 01/19/2023 08:27 am PERFORMED BY: Attending: ?Malcom OTT, Jimmie Perez Performed By: ? Kary Iqbal RDMS Referred By: ?TANYA SEAMAN Location: ? [place] SERVICE(S) PROVIDED: URETRO - Retroperitoneal Complete - [id number] ? [id number] INDICATIONS: New CLEM of unclear etiology RIGHT [...] 01/19/2023 08:47 am) PATIENT INFO: ID #: [id number] : [birth year] (67 yrs)(M) Name: MIGUEL SANCHEZ Visit Date: 01/19/2023 08:27 am PERFORMED BY: Attending: Jimmie العراقي MD Performed By: Kary Iqbal RDMS Referred By: TANYA QUEZADAMICHELLE Location: [place] SERVICE(S) PROVIDED: URETRO - Retroperitoneal Complete - [id number] INDICATIONS: New CLEM of unclear etiology RIGHT [...] bladder.. Electronically signed by: Jimmie العراقي MD, [facility] ([phone]), at 01/19/2023 8:39 AM Thank you for letting us participate in the care of this patient. If you are a health care provider and have any questions regarding this report, please contact the number above. For patients who have questions, please contact the health clinical care leader that requested your imaging first. Jimmie العراقي, Staff Physician Electronically Signed Final Report 01/19/2023 08:47 am Tanya Seaman MD [facility] ORDERAB LES * POCT Glucose (01/19/2023 8:00 AM EDT) Glucose, POC 92 65 - 199 mg/dL [facility] Comment: Supplemental ranges: <140 mg/dL before meals <180 mg/dL all other times of the day Blood 01/19/2023 8:00 AM EDT 01/19/2023 8:00 AM EDT Tanya Seaman MD POINT OF CARE TEST ORDERABLES Performing Organization Address City/[facility]/ZIP Co de Phone Number [facility] [place] [address] * POCT Glucose (01/19/2023 7:42 AM EDT) Glucose, POC 87 65 - 199 mg/dL [facility] Comment: Supplemental ranges: <140 mg/dL before meals <180 mg/dL all other times of the day Blood 01/19/2023 7:42 AM EDT 01/19/2023 7:42 AM EDT Tanya Seaman MD POINT OF CARE TEST ORDERABLES [facility] [place] [address] * (ABNORMAL) Basic Metabolic Panel (non-fasting) (01/19/2023 6:21 AM EDT) Glucose 80 65 - 199 mg/dL [facility] Comment:Diabetes: >=200 mg/d L plus symptoms Blood Urea Nitrogen 58(H) 10 - 20 mg/dL [facility] Creatinine 5.52(H) 0.80 - 1.50 mg/dL [facility] Sodium 143 135 - 145 mmol/L [facility] Potassium 4.3 3.5 - 5.0 mmol/L [facility] Comment: Please note: ??Patients with WBC >100,000 may have falsely elevated Potassium levels. ??For accurate Potassium quantification in these patients send serum separator tube (gold top) for subsequent determinations. ??Contact the Clinical Chemistry Laboratory if there are any questions. Chloride 107 98 - 107 mmol/L [facility] Carbon Dioxide 21(L) 22 - 31 mmol/L [facility] Anion Gap 15 5 - 15 mmol/L [facility] Calcium 8.9 8.5 - 10.5 mg/dL [facility] Est Glomerular Filtration Rate 11(L) >=60 mL/min/1. 73 m?? [facility] Comment: This patient's estimated GFR was [...] Lab Tanya Seaman MD CHEMISTRY ORDERABL ES [facility] [place] [address] * CK (01/19/2023 1:50 AM EDT) Creatine Kinase 70 0 - 200 unit/L [facility] Blood Venous Draw / Unknown 01/19/2023 1:50 AM EDT 01/19/2023 1:55 AM EDT Narrative Resulting Agency Comment Spec In Lab Kyle Mckeon MD CHEMISTRY ORDERABLES Performing Organization Address City/[facility]/Z[place] [address] * Differential, Automated (01/19/2023 1:50 AM EDT) Pathologist [facility] Neutrophil % 73.8 % [facility] Neutrophil Absolute 5.75 1.70 - 6.10 x10(3)/[facility] Lymph % 13.8 % [facility] Lymphocytes Abs 1.1 0.9 - 3.2 x10(3)/[facility] Monocyte % 8.5 % [facility] Monocyte Abs 0.7 0.3 - 0.9 x10(3)/[facility] Eos % 3.0 % [facility] Eosinophils Abs 0.2 0.0 - 0.4 x10(3)/[facility] Basophil % 0.6 % [facility] Baso Absolute 0.0 0.0 - 0.1 x10(3)/[facility] Immature Gran % 0.30 % [facility] Comment: Immature granulocytes(IG's)percentage and absolute count will include metamyelocytes, myelocytes, and promyelocytes. Blood smears from CBCs yielding IG's will be scanned manually for concordance. If this scan disagrees with the automated IG or if promyelocytes are noted, a manual differential will be performed. Immature Gran Absolute 0.02 0.00 - 0.04 x10(3)/[facility] Blood 01/19/2023 1:50 AM EDT 01/19/2023 1:54 AM EDT Narrative Resulting Agency Comment Spec In Lab Kyle Mckeon MD HEMATOLOGY ORDERABLE S Performing Organization Address City/[facility]/ZIP Co [place] [address] * (ABNORMAL) Hemogram (01/19/2023 1:50 AM EDT) White Blood Cell 7.8 4.0 - 9.5 x10(3)/mc L [facility] Red Blood Cell 3.25(L) 4.58 - 5.54 x10(6)/mc L [facility] Hemoglobin 10.1(L) 13.7 - 16.5 g/dL [facility] Hematocrit 30.3(L) 40.5 - 48.5 % [facility] Mean Cell Volume 93.2(H) 82.9 - 93.1 fL [facility] Mean Cell Hemoglobin 31.1 27.5 - 32.1 pg [facility] Mean Cell Hemoglobin Concentration 33.3 32.0 - 35.7 g/dL [facility] Platelet 173 145 - 357 x10(3)/mc L [facility] RDW Standard Deviation 44.6 36.0 - 45.0 fL [facility] RDW coefficient of variation 13.0 11.4 - 13.8 % [facility] Mean Platelet Volume 11.5 7.6 - 12.9 fL [facility] NRBC% auto 0.0 % [facility] NRBC Absolute 0.000 0.000 - 0.000 x10(3)/ L [facility] Blood 01/19/2023 1:50 AM EDT 01/19/2023 1:54 AM EDT Narrative Resulting Agency Comment Spec In Lab Kyle Mckeon MD HEMATOLOGY ORDERABLE S [facility] [place] [address] * Phosphorus (01/19/2023 1:50 AM EDT) Phosphorus 4.3 2.5 - 4.5 mg/dL [facility] Blood 01/19/2023 1:50 AM EDT 01/19/2023 1:54 AM EDT Narrative Resulting Agency Comment Spec In Lab Tanya Seaman MD CHEMISTRY ORDERABL ES Performing Organization Address [facility]/ZIP Co de Phone Number [facility] [facility] [place] [address] * Magnesium (01/19/2023 1:50 AM EDT) Magnesium 0.80 0.69 - 1.07 mmol/L [facility] Blood 01/19/2023 1:50 AM EDT 01/19/2023 1:54 AM EDT Narrative Resulting Agency Comment Spec In Lab Tanya Seaman MD CHEMISTRY ORDERABL ES Performing Organization Address [facility] Co de Phone Number [facility] [place] [address] * (ABNORMAL) Basic Metabolic Panel (non-fasting) (01/19/2023 1:50 AM EDT) Glucose 78 65 - 199 mg/dL [facility] Comment:Diabetes: >=200 mg/d L plus symptoms Blood Urea Nitrogen 54(H) 10 - 20 mg/dL [facility] Creatinine 5.50(H) 0.80 - 1.50 mg/dL [facility] Sodium 143 135 - 145 mmol/L [facility] Potassium 4.3 3.5 - 5.0 mmol/L [facility] Comment: Please note: ??Patients with WBC >100,000 may have falsely elevated Potassium levels. ??For accurate Potassium quantification in these patients send serum separator tube (gold top) for subsequent determinations. ??Contact the Clinical Chemistry Laboratory if there are any questions. Chloride 107 98 - 107 mmol/L [facility] Carbon Dioxide 22 22 - 31 mmol/L [facility] Anion Gap 14 5 - 15 mmol/L [facility] Calcium 8.9 8.5 - 10.5 mg/dL [facility] Est Glomerular Filtration Rate 11(L) >=60 mL/min/1. 73 m?? [facility] Comment: This patient's estimated GFR was [...] ORDERABL ES Performing Organization Address [facility] Co de Phone Number [facility] [place] [address] * POCT Glucose (01/19/2023 1:46 AM EDT) Glucose, POC 75 65 - 199 mg/dL [facility] Comment: Supplemental ranges: <140 mg/dL before meals <180 mg/dL all other times of the day Blood 01/19/2023 1:46 AM EDT 01/19/2023 1:46 AM EDT Tanya Seaman MD POINT OF CARE TEST ORDERABLES Performing Organization Address [facility] de Phone Number [facility] [place] [address] * (ABNORMAL) Blood Gas Venous ([facility]) (01/18/2023 10:20 PM EDT) pH, Venous 7.37 7.32 - 7.42 [facility] PCO2, Venous 38(L) 41 - 51 mmHg [facility] PO2, Venous 30 25 - 40 mmHg [facility] Bicarbonate, Venous 21.7 mmol/L [facility] Base Excess, Venous -3.7 mmol/L [facility] Hgb Blood Gas Not Perf 13.7 - 16.5 g/dL [facility] Oxyhemoglobin, Venous Not Perf % [facility] Carboxyhemoglob in, Venous Not Perf % [facility] Comment: Nonsmokers: 0.5-1.5% COHB Smokers: Variable, but usually less than 10% Toxic: 20-30% COHB Lethal: Greater than 60% COHB Methemoglobin, Venous Not Perf <=1.5 % [facility] Na Whole Blood 140 135 - 145 mmol/L [facility] K Whole Blood 4.5 3.5 - 5.0 mmol/L [facility] Comment: Please note: Patients with WBC >100,000 may have falsely elevated Potassium levels. Contact the Clinical Chemistry Laboratory if there are any questions. ICa Whole Blood 1.14(L) 1.15 - 1.33 mmol/L [facility] Comment: Note: ??Total bilirubin higher than 20 mg/dL may lead to falsely low ionized calcium. CL Whole Blood 109(H) 98 - 107 mmol/L [facility] Gluc Whole Bld 73 65 - 199 mg/dL [facility] Comment:Diabetes: >=200 mg/d L plus symptoms Lactate WB 1.3 0.5 - 2.2 mmol/L [facility] Blood Gas Source Venous [facility] Blood Venous Draw / Unknown 01/18/2023 10:20 PM EDT 01/18/2023 10:26 PM EDT Narrative Resulting Agency Comment Spec In Lab Kyle Mckeon MD CHEMISTRY ORDERABLES [facility] [place] [address] * (ABNORMAL) Basic Metabolic Panel (non-fasting) (01/18/2023 10:16 PM EDT) Glucose 74 65 - 199 mg/dL [facility] Comment:Diabetes: >=200 mg/d L plus symptoms Blood Urea Nitrogen 60(H) 10 - 20 mg/dL [facility] Creatinine 5.81(H) 0.80 - 1.50 mg/dL [facility] Sodium 145 135 - 145 mmol/L [facility] Potassium 4.8 3.5 - 5.0 mmol/L [facility] Comment: Please note: ??Patients with WBC >100,000 may have falsely elevated Potassium levels. ??For accurate Potassium quantification in these patients send serum separator tube (gold top) for subsequent determinations. ??Contact the Clinical Chemistry Laboratory if there are any questions. Chloride 109(H) 98 - 107 mmol/L [facility] Carbon Dioxide Not Perf [facility] Comment:Add-on request. Samp le too old to perform test. Anion Gap Unable to Calculate 5 - 15 mmol/L [facility] Calcium 9.2 8.5 - 10.5 mg/dL [facility] Est Glomerular Filtration Rate 10(L) >=60 mL/min/1 .73 m?? [facility] Comment: This patient's estimated GFR was [...] In Lab Kyle Mckeon MD CHEMISTRY ORDERABLES [facility] [place] [address] * (ABNORMAL) Differential, Automated (01/18/2023 10:16 PM EDT) Neutrophil % 78.0 % [facility] Neutrophil Absolute 5.41 1.70 - 6.10 x10(3)/mc L [facility] Lymph % 11.5 % [facility] Lymphocytes Abs 0.8(L) 0.9 - 3.2 x10(3)/mc L [facility] Monocyte % 6.6 % [facility] Monocyte Abs 0.5 0.3 - 0.9 x10(3)/mc L [facility] Eos % 3.0 % [facility] Eosinophils Abs 0.2 0.0 - 0.4 x10(3)/mc L [facility] Basophil % 0.6 % [facility] Baso Absolute 0.0 0.0 - 0.1 x10(3)/mc L [facility] Immature Gran % 0.30 % [facility] Comment: Immature granulocytes(IG's)percentage and absolute count will include metamyelocytes, myelocytes, and promyelocytes. Blood smears from CBCs yielding IG's will be scanned manually for concordance. If this scan disagrees with the automated IG or if promyelocytes are noted, a manual differential will be performed. Immature Gran Absolute 0.02 0.00 - 0.04 x10(3)/mc L [facility] Blood 01/18/2023 10:1 6 PM EDT 01/18/2023 10:27 PM EDT Narrative Resulting Agency Comment Spec In Lab Kyle Mckeon MD HEMATOLOGY ORDERABLE S Performing Organization Address City/State/[facility] Co de Phone Number [facility] [place] [address] * (ABNORMAL) Hemogram (01/18/2023 10:16 PM EDT) White Blood Cell 6.9 4.0 - 9.5 x10(3)/mc L [facility] Red Blood Cell 3.30(L) 4.58 - 5.54 x10(6)/mc L [facility] Hemoglobin 10.1(L) 13.7 - 16.5 g/dL [facility] Hematocrit 31.0(L) 40.5 - 48.5 % [facility] Mean Cell Volume 93.9(H) 82.9 - 93.1 fL [facility] Mean Cell Hemoglobin 30.6 27.5 - 32.1 pg [facility] Mean Cell Hemoglobin Concentration 32.6 32.0 - 35.7 g/dL [facility] Platelet 196 145 - 357 x10(3)/mc L [facility] RDW Standard Deviation 44.9 36.0 - 45.0 fL [facility] RDW coefficient of variation 13.1 11.4 - 13.8 % [facility] Mean Platelet Volume 11.4 7.6 - 12.9 fL [facility] NRBC% auto 0.0 % [facility] NRBC Absolute 0.000 0.000 - 0.000 x10(3)/mc L [facility] Blood 01/18/2023 10:1 6 PM EDT 01/18/2023 10:27 PM EDT Narrative Resulting Agency Comment Spec In Lab Kyle Mckeon MD HEMATOLOGY ORDERABLE S Performing Organization Address [facility] Co de Phone Number [facility] [place] [address] * Salicylate (01/18/2023 10:16 PM EDT) Salicylate 3 mg/L [facility] Comment: Therapeutic Range: ??< 200 mg/L [...] ORDERABL ES Performing Organization Address [facility] de Phone Number [facility] [place] [address] * (ABNORMAL) Acetaminophen level (01/18/2023 10:16 PM EDT) Acetamin Lvl <5(L) 5 - 30 mg/L [facility] Comment: Levels >150 mg/L at 4 hours post ingestion are often an indication for N-Acetylcysteine. Blood 01/18/2023 10:1 6 PM EDT 01/18/2023 10:27 PM EDT Narrative Resulting Agency Comment Spec In Lab Tanya Seaman MD CHEMISTRY ORDERABL ES Performing Organization Address [facility] Co de Phone Number [facility] [place] [address] * Phosphorus (01/18/2023 10:16 PM EDT) Phosphorus 4.2 2.5 - 4.5 mg/dL [facility] Blood 01/18/2023 10:1 6 PM EDT 01/18/2023 10:27 PM EDT Narrative Resulting Agency Comment Spec In Lab Tanya Seaman MD CHEMISTRY ORDERABL ES Performing Organization Address [facility] Co de Phone Number [facility] [place] [address] * Magnesium (01/18/2023 10:16 PM EDT) Magnesium 0.87 0.69 - 1.07 mmol/L [facility] Blood 01/18/2023 10:1 6 PM EDT 01/18/2023 10:27 PM EDT Narrative Resulting Agency Comment Spec In Lab Tanya Seaman MD CHEMISTRY ORDERABL ES Performing Organization Address [facility] de Phone Number [facility] [place] [address] * APTT (01/18/2023 10:16 PM EDT) Partial Thromboplastin Time 35 25 - 37 sec [facility] Comment: The PTT is NOT appropriate for heparin monitoring. Use the Anti-Xa level for heparin monitoring (HEP UFH) or LMWH monitoring (HEP LMW). A PTT less than 37 seconds generally indicates adequate hemostasis. Blood 01/18/2023 10:1 6 PM EDT 01/18/2023 10:27 PM EDT Narrative Resulting Agency Comment Spec In Lab Tanya Seaman MD HEMATOLOGY ORDERAB LES Performing Organization Address [facility] Co de Phone Number [facility] [place] [address] * (ABNORMAL) Prothrombin Time (01/18/2023 10:16 PM EDT) Prothrombin Time 14.3(H) 9.4 - 12.5 sec [facility] International Normalization Ratio 1.3 [facility] Comment: An INR <2.0 indicates adequate [...] Lab Tanya Seaman MD HEMATOLOGY ORDERAB LES [facility] [place] [address] * (ABNORMAL) Hemoglobin A1c (01/18/2023 10:16 PM EDT) Hemoglobin A1c 5.7(H) 4.3 - 5.6 % [facility] Comment: Reference Range: 4.3 - 5.6% [...] Mellitus, Diabetes Care 2013; 36: Suppl. 1, G87-83 Estimated Average Glucose 117 mg/dL [facility] Comment: eAG equivalents for HbA1c percentages: [...] into estimated average glucose values. ??Diabetes Care 2008:31(8):5965-4017. Blood 01/18/2023 10:1 6 PM EDT 01/18/2023 10:27 PM EDT Narrative Resulting Agency Comment Spec In Lab Tanya Seaman MD CHEMISTRY ORDERABL ES Performing Organization Address [facility] de Phone Number [facility] [place] [address] * TSH [place] (01/18/2023 10:16 PM EDT) Thyroid Stimulating Hormone 2.03 0.27 - 4.20 mcIU/mL [facility] Comment: Reference Interval (mcIU/mL): Females: ??First Trimester: 0.23-3.88 ??Second Trimester: 0.22-3.90 ??Third Trimester: 0.44-4.66 Blood 01/18/2023 10:1 6 PM EDT 01/18/2023 10:27 PM EDT Narrative Resulting Agency Comment Spec In Lab Tanya Seaman MD CHEMISTRY ORDERABL ES Performing Organization Address [facility] Co de Phone Number [facility] [place] [address] * LDL Cholesterol, Direct (01/18/2023 10:16 PM EDT) LDL Cholesterol, Direct 65 mg/dL [facility] Comment: Lowest Risk: <100 mg/dL Lower Risk: 100-129 mg/dL Borderline High Risk: 130-159 mg/dL High Risk: 160-189 mg/dL Very High Risk: >jq=220 mg/dL Blood 01/18/2023 10:1 6 PM EDT 01/18/2023 10:27 PM EDT Narrative Resulting Agency Comment Spec In Lab Tanya Seaman MD CHEMISTRY ORDERABL ES Performing Organization Address [facility] Co de Phone Number [facility] [address] [place] [address] * HDL/Cholesterol Profile (01/18/2023 10:16 PM EDT) Cholesterol, Total 122 mg/dL [facility] Comment: Lower Risk: <200 mg/dL Average Risk: 200-239 mg/dL Higher Risk: >qb=743 mg/dL HDL Cholesterol 27 mg/dL [facility] Comment: Males: ?? Higher Risk: <40 mg/dL Females: ?? Higher Risk: <50 mg/dL Cholesterol/HDL Ratio 4.5 ratio [facility] Chol/HDL Interpretation See Note [facility] Comment: Lipid management should be guided by a patient? s ASCVD risk, goals and preferences. ACC/AHA Guidelines recommend high intensity statin if clinical ASCVD or LDL greater than or equal to 190 mg/dL. http://idiag.com/JGR-XAY-Wnbswxbgq Measure LDL if Total Cholesterol minus HDL Cholesterol is greater than 220 mg/dL. Adults aged 40-75 with LDL 70-189 mg/dL should have their 10 year ASCVD risk estimated with the ACC/AHA ASCVD risk yardage estimator http://tools.acc.org/NHUHT-Ryph-Xiiqhubfu/ Statin should be discussed if risk greater [...] ORDERABL ES Performing Organization Address [facility]/ZIP Co de Phone Number [facility] [place] [address] * (ABNORMAL) Troponin (01/18/2023 10:16 PM EDT) Troponin-T, High Sensitivity 78(H) <=22 ng/L [facility] Comment: This patient's troponin T concentration [...] value can be found in the [facility] Laboratory Test Catalog Troponin - [facility] Laboratory Test Catalog Reference: Fourth Wesley Definition of Myocardial Infarction. Journal of the [place] [employer] 2018;72:4751-5640 Blood 01/18/2023 10:1 6 PM EDT 01/18/2023 10:27 PM EDT Narrative Resulting Agency Comment Spec In Lab Tanya Seaman MD CHEMISTRY ORDERABL ES Performing Organization Address City/[facility]/ZIP Co de Phone Number [facility] [place] [address] * (ABNORMAL) Protein/Creatinine Ratio, urine (01/18/2023 10:13 PM EDT) Creatinine, Urine 41 mg/dL [facility] Protein, Urine 200(H) 0 - 12 mg/dL [facility] Protein / Creatinine Ratio, Urine 4.9 ratio [facility] Urine Urine / Unknown 01/18/2023 1 0:13 PM EDT 01/18/2023 10:29 PM EDT Narrative Resulting Agency Comment Spec In Lab Deonte Lugo MD URINE ORDERABLES Performing Organization Address [facility] Co de Phone Number [facility] [place] [address] * Urine culture (01/18/2023 10:13 PM EDT) Urine Culture No growth (Less than 1,000 cfu/ml). [facility] Indwelling Catheter Urine 01/18/2023 10:13 PM EDT 01/18/2023 11:08 PM EDT Narrative Resulting Agency Comment Spec In Lab Kyle Mckeon MD MICROBIOLOGY - GENER AL ORDERABLES Performing Organization Address [facility] Co de Phone Number [facility] [place] [address] * (ABNORMAL) Urinalysis Microscopic Exam (01/18/2023 10:13 PM EDT) RBC, Urine >100(H) 0 - 3 /HPF [facility] WBC, Urine 10(H) 0 - 3 /HPF [facility] Squamous Epithelial Cells Raw Data, Urine 5(H) <=4 /HPF [facility] Hyaline Casts, Urine 2 0 - 2 /LPF [facility] Indwelling Catheter Urine 01/18/2023 10:13 PM EDT 01/18/2023 10:22 PM EDT Narrative Resulting Agency Comment Spec In Lab Kyle Mckeon MD URINE ORDERABLES Performing Organization Address [facility] Co de Phone Number [facility] [place] [address] * Rapid Drug Screen w/ Confirmation, Urine (01/18/2023 10:13 PM EDT) Barbiturates Screen, Urine None Detected None Detected [facility] Comment: The barbiturate screen detects barbiturates [...] Benzodiazepines Screen, Urine None Detected None Detected [facility] Comment: The benzodiazepines screen detects [...] Cocaine Screen, Urine None Detected None Detected [facility] Comment: The cocaine metabolites screen detects benzoylecgonine (Cocaine Metabolite) at concentrations >150 ng/mL. A ? Presumptive Positive? result indicates that the screening result was positive but has not yet been confirmed by a highly-specific method. As with any screen, occasional false positive results from cross-reacting substances may occur. Not for Medico-Legal Purposes. Methadone Metabolites Screen, Urine None Detected None Detected [facility] Comment: The methadone metabolite screen detects EDDP (major methadone metabolite) at concentrations >100 ng/mL. A ? Presumptive Positive? result indicates that the screening result was positive but has not yet been confirmed by a highly-specific method. As with any screen, occasional false positive results from cross-reacting substances may occur. Not for Medico-Legal Purposes. Opiate Screen, Urine None Detected None Detected [facility] Comment: The opiates screen detects [...] Cannabinoid Screen, Urine None Detected None Detected [facility] Comment: The marijuana metabolites screen detects the THC metabolite (63-gdu-8-carboxy-delta 9-THC) at concentrations >20 ng/mL. A ? Presumptive Positive? result indicates that the screening result was positive but has not yet been confirmed by a highly-specific method. As with any screen, occasional false positive results from cross-reacting substances may occur. Not for Medico-Legal Purposes. Oxycodone Screen, Urine None Detected None Detected [facility] Comment: The oxycodone screen detects oxycodone and oxymorphone at concentrations >100 ng/mL. A ? Presumptive Positive? result indicates that the screening result was positive but has not yet been confirmed by a highly-specific method. As with any screen, occasional false positive results from cross-reacting substances may occur. Not for Medico-Legal Purposes. Buprenorphine Screen, Urine None Detected None Detected [facility] Comment: The buprenorphine screen detects [...] characteristics of this test were determined by [facility] in accordance with CLIA requirements. This laboratory is qualified under CLIA to perform high-complexity testing. Fentanyl Screen, Urine None Detected None Detected [facility] Comment: The fentanyl screen detects fentanyl [...] of this test were determined by [facility] in accordance with CLIA requirements. This laboratory is qualified under CLIA to perform high-complexity testing. Tricyclics Screen, Urine None Detected None Detected [facility] Comment: The tricyclics screen detects tricyclic [...] characteristics of this test were determined by [facility] in accordance with CLIA requirements. This laboratory is qualified under CLIA to perform high-complexity testing. Ethanol Screen, Urine None Detected None Detected [facility] Comment:This urine ethanol a ssay detects ethanol at concentrations >/= 100 mg/L. Amphetamines Screen, Urine None Detected None Detected [facility] Comment: The amphetamine screen detects d-amphetamine and d-methamphetamine at concentrations >300 ng/mL. A ? Presumptive Positive? result indicates that the screening result was positive but has not yet been confirmed by a highly-specific method. As with any screen, occasional false positive results from cross-reacting substances may occur. Not for Medico-Legal Purposes. Creatinine Specimen Validity Test, Urine 42 >=20 mg/dL [facility] Chromate Specimen Validity Test, Urine <2.0 <=49.9 mg/L [facility] Nitrite Specimen Validity Test, Urine <50 <=499 mg/L [facility] Oxidant Specimen Validity Test, Urine 6 <=199 mg/L [facility] pH Specimen Validity Test, Urine 6.0 3.0 - 10.9 [facility] Adulterants Screen, Urine None Detected None Detected [facility] Comment:No adulteration of t his urine sample was detected. Urine 01/18/2023 10:1 3 PM EDT 01/18/2023 10:22 PM EDT Narrative Resulting Agency Comment Spec In Lab Kyle Mckeon MD CHEMISTRY ORDERABLES [facility] [place] [address] * Rapid Drug Screen, Urine (HEATHER Request) (01/18/2023 10:13 PM EDT) HEATHER Conf Requested Yes [facility] HEATHER Requested See Comment [facility] Comment:Refer to Rapid Drug Screen w/ Confirmation, Urine for results. Urine 01/18/2023 10:1 3 PM EDT 01/18/2023 10:22 PM EDT Narrative Resulting Agency Comment Spec In Lab Tanya Seaman MD URINE ORDERABLES Performing Organization Address City/[facility] Co de Phone Number [facility] [place] [address] * Creatinine, urine, random (01/18/2023 10:13 PM EDT) Creatinine, Urine 41 mg/dL [facility] Urine 01/18/2023 10:1 3 PM EDT 01/18/2023 10:22 PM EDT Narrative Resulting Agency Comment Spec In Lab Tanya Seaman MD URINE ORDERABLES Performing Organization Address [facility] Co de Phone Number [facility] [place] [address] * Urea nitrogen, urine, random (01/18/2023 10:13 PM EDT) Urea Nitrogen, Urine 251 mg/dL [facility] Urine 01/18/2023 10:1 3 PM EDT 01/18/2023 10:22 PM EDT Narrative Resulting Agency Comment Spec In Lab Tanya Seaman MD URINE ORDERABLES Performing Organization Address [facility] Co de Phone Number [facility] [place] [address] * (ABNORMAL) Urinalysis with reflex Culture (01/18/2023 10:13 PM EDT) Glucose, Urine Dipstick Negative Negative mg/dL [facility] Protein, Urine Dipstick >=300(A) Negative mg/dL [facility] Bilirubin, Urine Dipstick Negative Negative mg/dL [facility] Comment: Clinical correlation required for positive Urine Bilirubin results as false positive may occur with some drugs and drug related products. If a false positive is suspected a serum total bilirubin should be considered if clinically indicated. Urobilinogen, Urine Dipstick Normal Normal mg/dL [facility] pH, Urn (dipstick) 6.5 5.0 - 8.0 [facility] Blood, Urine Dipstick Large(A) Negative mg/dL [facility] Ketone, Urine Dipstick Negative Negative mg/dL [facility] Nitrite, Urine Dipstick Negative Negative [facility] Leukocytes, Urine Dipstick Small(A) Negative mcL [facility] Appearance, Urine Dipstick Cloudy(A) Clear [facility] Specific [place] Urine Automated 1.010 1.005 - 1.030 [facility] Color, Urine Dipstick Red(A) Yellow [facility] Reflex to Culture Yes [facility] Indwelling Catheter Urine 01/18/2023 10:13 PM EDT 01/18/2023 10:22 PM EDT Narrative Resulting Agency Comment Spec In Lab Tanya Seaman MD URINE ORDERABLES Performing Organization Address [facility] Co de Phone Number [facility] [place] [address] * Lactate, whole blood, send to lab ([facility]) (01/18/2023 7:46 PM EDT) Lactate WB 1.6 0.5 - 2.2 mmol/L [facility] Blood 01/18/2023 7:46 PM EDT 01/18/2023 7:51 PM EDT Narrative Resulting Agency Comment Spec In Lab Tanya Seaman MD CHEMISTRY ORDERABL ES Performing Organization Address [facility] Co de Phone Number [facility] [place] [address] * (ABNORMAL) Differential, Automated (01/18/2023 7:16 PM EDT) Neutrophil % 80.9 % [facility] Neutrophil Absolute 5.86 1.70 - 6.10 x10(3)/mc L [facility] Lymph % 9.7 % [facility] Lymphocytes Abs 0.7(L) 0.9 - 3.2 x10(3)/mc L [facility] Monocyte % 5.9 % [facility]AL [facility] Monocyte Abs 0.4 0.3 - 0.9 x10(3)/mc L [facility] Eos % 2.6 % [facility] Eosinophils Abs 0.2 0.0 - 0.4 x10(3)/mc L [facility] Basophil % 0.6 % [facility] IT[facility] Baso Absolute 0.0 0.0 - 0.1 x10(3)/mc L [facility] Immature Gran % 0.30 % [facility] Comment: Immature granulocytes(IG's)percentage and absolute count will include metamyelocytes, myelocytes, and promyelocytes. Blood smears from CBCs yielding IG's will be scanned manually for concordance. If this scan disagrees with the automated IG or if promyelocytes are noted, a manual differential will be performed. Immature Gran Absolute 0.02 0.00 - 0.04 x10(3)/mc L [facility] Blood 01/18/2023 7:16 PM EDT 01/18/2023 7:27 PM EDT Narrative Resulting Agency Comment Spec In Lab Kyle Mckeon MD HEMATOLOGY ORDERABLE S [facility] [place] [address] * (ABNORMAL) Hemogram (01/18/2023 7:16 PM EDT) White Blood Cell 7.2 4.0 - 9.5 x10(3)/mc L [facility] Red Blood Cell 3.24(L) 4.58 - 5.54 x10(6)/ L [facility] Hemoglobin 10.1(L) 13.7 - 16.5 g/dL [facility] Hematocrit 30.1(L) 40.5 - 48.5 % [facility] Mean Cell Volume 92.9 82.9 - 93.1 fL [facility] Mean Cell Hemoglobin 31.2 27.5 - 32.1 pg [facility] Mean Cell Hemoglobin Concentration 33.6 32.0 - 35.7 g/dL [facility] Platelet 183 145 - 357 x10(3)/ L [facility] RDW Standard Deviation 44.4 36.0 - 45.0 fL [facility] RDW coefficient of variation 13.2 11.4 - 13.8 % [facility] Mean Platelet Volume 11.9 7.6 - 12.9 fL [facility] NRBC% auto 0.0 % [facility] NRBC Absolute 0.000 0.000 - 0.000 x10(3)/mc L [facility] Blood 01/18/2023 7:16 PM EDT 01/18/2023 7:27 PM EDT Narrative Resulting Agency Comment Spec In Lab Kyle Mckeon MD HEMATOLOGY ORDERABLE S Performing Organization Address City/[facility]/ZIP Co de Phone Number [facility] [place] [address] * (ABNORMAL) pro-Brain Natriuretic Peptide (01/18/2023 7:16 PM EDT) NT-proBNP 11,818(H) <=124 pg/mL [facility] Blood 01/18/2023 7:16 PM EDT 01/18/2023 7:27 PM EDT Narrative Resulting Agency Comment Spec In Lab Tanya Seaman MD CHEMISTRY ORDERABL ES Performing Organization Address [facility] [place] [address] * (ABNORMAL) Troponin (01/18/2023 7:16 PM EDT) Troponin-T, High Sensitivity 78(H) <=22 ng/L [facility] Comment: This patient's troponin T concentration [...] value can be found in the [facility] Laboratory Test Catalog Troponin - [facility] Laboratory Test Catalog Reference: Fourth Wesley Definition of Myocardial Infarction. Journal of the [place] College [employer]iology 2018;72:3848-7157 Blood 01/18/2023 7:16 PM EDT 01/18/2023 7:27 PM EDT Narrative Resulting Agency Comment Spec In Lab Tanya Seaman MD CHEMISTRY ORDERABL ES [facility] [place] [address] * (ABNORMAL) Comprehensive metabolic panel (non-fasting) (01/18/2023 7:16 PM EDT) Glucose 76 65 - 199 mg/dL [facility] Comment:Diabetes: >=200 mg/d L plus symptoms Blood Urea Nitrogen 60(H) 10 - 20 mg/dL [facility] Creatinine 5.71(H) 0.80 - 1.50 mg/dL [facility] Sodium 144 135 - 145 mmol/L [facility] Potassium 4.6 3.5 - 5.0 mmol/L [facility] Comment: Please note: ??Patients with WBC >100,000 may have falsely elevated Potassium levels. ??For accurate Potassium quantification in these patients send serum separator tube (gold top) for subsequent determinations. ??Contact the Clinical Chemistry Laboratory if there are any questions. Chloride 109(H) 98 - 107 mmol/L [facility] Carbon Dioxide 21(L) 22 - 31 mmol/L [facility] Anion Gap 14 5 - 15 mmol/L [facility] Calcium 9.3 8.5 - 10.5 mg/dL [facility] Protein, Total 7.2 6.1 - 8.0 g/dL [facility] Albumin 4.2 3.2 - 5.2 g/dL [facility] Aspartate Aminotransferase 12 0 - 39 unit/L [facility] Alanine Aminotransferase 12 0 - 55 unit/L [facility] Alkaline Phosphatase 95 40 - 130 unit/L [facility] Bilirubin, Total 0.7 0.2 - 1.3 mg/dL [facility] Est Glomerular Filtration Rate 10(L) >=60 mL/min/1. 73 m?? [facility] Comment: This patient's estimated GFR was [...] Lab Tanya Seaman MD CHEMISTRY ORDERABL ES [facility] [place] [address] * EKG 12 Lead (01/18/2023 6:52 PM EDT) Ventricular rate 69 BPM MUSE SYSTEM Atrial Rate 69 BPM MUSE SYSTEM P-R Interval 212 ms MUSE SYSTEM QRS Duration 126 ms MUSE SYSTEM Q-T Interval 432 ms MUSE SYSTEM QTC Calculated (Bezet) 462 ms MUSE SYSTEM Calculated P [place] 46 degrees MUSE SYSTEM Calculated R [place] -37 degrees MUSE SYSTEM Calculated T [place] 101 degrees MUSE SYSTEM INTERPRETATION Sinus rhythm with 1st degree A-V block Left axis deviation Non-specific intra-ventricul ar conduction block Possible Lateral infarct , age undetermined Abnormal ECG No previous ECGs available Confirmed by Tessa Saldivar ([id number]) on 01/19/2023 9:21:20 AM MUSE SYSTEM 01/18/2023 6:52 PM EDT 01/19/2023 9:21 AM EDT Tanya Seaman MD ECG ORDERABLES [facility] documented in this encounter Visit Diagnoses [...] Calderon RN)1406 (Given - Provider: Aaron Olson RN)2120 (Given - Provider: Adrienne Calderon RN) 0600 (Not Given - Provider: Adrienne Calderon, RN - Reason: Patient/family refused - Comment: [...] Wed01/18/23 at 2034, Until Wed01/27/23 at 182, for discomfort with PIV insertion, Routine nitroGLYcerin [...] Routine documented in this encounter Care Teams High School Coach Relationship Specialty Start Date End Date Reinier Arceo PA [address] [place] [address] PCP - General Internal Medicine 01/18/23 documented as of this encounter
--- OUTSIDE RECORDS SUMMARY | 2024-02-22 14:59 | XMS_ITS | Encounter Summary ---
Author Organization [facility] Address [address] [place] [address] Care Team Providers Care High School Hvac R Instructor Name Role Phone Casimiro Perez MD Primary Care Provider Nahed montes de oca Encounter Details Date Type Department Care Team (Late st Contact Info) Description 09/11/2021 Lab Requisition [facility] Pathology & Laboratory Medicine - [facility] [address] [place] [address] Outr Resulting Lab, Provider Social History Tobacco [...] of malignant disease. Assayed on Siemens ADVIA [employer] XPT using chemiluminescent technology.??Values obtained by using different assay methods cannot be used interchangeably. Provider Outr Resulting Lab CHEMISTRY & BLOOD GAS ORDERABLES [facility] [address] [place] [address] documented in this encounter Visit Diagnoses Not on filedocumented in this encounter Care Teams High School Hvac R Instructor Relationship Specialty Start Date End Date Casimiro Perez MD PCP - General 05/03/15 documented as of this encounter
--- OUTSIDE RECORDS SUMMARY | 2024-02-22 14:59 | XMS_ITS | Encounter Summary ---
Author Organization [facility] [place] [address] Care Team Providers Care Channeler Outsole Name Role Phone Reina Alcala APRN Primary Care Provider [phone] Reason for Visit * Reason Comments Follow-up Encounter Details Date Type Department Care Team ([facility] st Contact Info) Description 04/23/2015 1:45 PM EDT Office Visit Dermatology at [address] [place] [address] Sixto Doty MD [address], [place] [address] Self-excoriation disorder Social History Tobacco Use Types Packs/Day Years Used Date Smoking Tobacco: Never Sex and Gender Information Value Date Recorded Sex Assigned at Not on file Gender Identity Not on file Sexual Orientation Not on file documented as of this encounter Patient Instructions * Patient Instructions* Marilyn Ornelas LPN - 04/23/2015 2:11 PM EDT [facility] Actinic Keratosis: After Your Visit Your [...] Visit our health information library at [email or web address] You can also view health information on [employer], your personal patient account. Log in or sign up today. Enter L364 in the search box to learn more about Actinic Keratosis: After Your Visit. ?? [id number] [employer]. Care instructions adapted under license by [facility]. This care instruction is for use with your licensed healthcare professional. If you have questions about a medical condition or this instruction, always ask your healthcare professional. [employer] disclaims any warranty or liability for your use of this information. Content Version: 10.4.275664; Current as of: January 25, 2014 documented [...] 2:20 PM EDT [place] [address] Austin Simon MD [facility] [place] [address] 04/11/2024 11:20 AM EDT Office Visit Dermatology at [facility] [address] [place] [address] Terri Pimentel MD [facility] [address] [address] documented as of this encounter Visit Diagnoses Diagnosis Self-excoriation disorder documented in this encounter Care Teams Channeler Outsole Relationship Specialty Start Date End Date Reina Alcala APRN [address] [place] [address] [place] [address] PCP - General 04/18/14 01/17/23 documented as of this encounter
--- OUTSIDE RECORDS SUMMARY | 2024-02-22 14:59 | XMS_ITS | Encounter Summary ---
Author Organization [facility] [address] Care Team Providers Care Rewards Consultant Name Role Phone Reina Alcala APRN Primary Care Provider [phone] Reason for Visit * Reason Comments Follow-up Encounter Details Date Type Department Care Team ([facility] st Contact Info) Description 05/22/2014 1:30 PM EST Office Visit Dermatology at [place] [address] [place] [address] Sixto Doty MD [address], [place] [address] Neurodermatitis Discharge Disposition: Home Social History Tobacco Use Types Packs/Day Years Used Date Smoking Tobacco: Never Sex and Gender Information Value Date Recorded Sex Assigned at Not on file Gender Identity Not on file Sexual Orientation Not on file documented as of this encounter Patient Instructions * Patient Instructions* Sarai Acosta LPN - 05/22/2014 1:14 PM EST [facility] Psoriasis: After Your Visit Your Care Instructions Psoriasis (say rdt-RA-rg-ruel) is a long-term skin problem that causes [...] still damp. This seals in moisture. Use uwhf-ywn-lprkisd products that your doctor suggests. These may [...] more? Visit our health information library at [email or web address] Businesso You can also view health information on [employer], your personal patient account. Log in or sign up today. Enter U759 in the search box to learn more about Psoriasis: After Your Visit. ?? [phone] Lee [employer]ber. Care instructions adapted under license by [facility]. This care instruction is for use with your licensed healthcare professional. If you have questions about a medical condition or this instruction, always ask your healthcare professional. [employer] disclaims any warranty or liability for your use of this information. Content Version: [id number]; Last Revised: January 31, 2013 documented in [...] 2:20 PM EDT [place] [address] Austin Simon MD [facility] [place] [address] 04/11/2024 11:20 AM EDT Office Visit Dermatology at [facility] [address] [place] [address] Terri Pimentel MD [facility] [address] [place] [address] documented as of this encounter Visit Diagnoses Diagnosis Neurodermatitis Lichenification and lichen simplex chronicus documented in this encounter Care Teams Rewards Consultant Relationship Specialty Start Date End Date Reina Alcala APRN [address] [place] [address] [place] [address] PCP - General 04/18/14 01/17/23 documented as of this encounter
--- OUTSIDE RECORDS SUMMARY | 2024-02-22 14:59 | XMS_ITS | Encounter Summary ---
Author Organization [facility] Address [address] [place] [address] Care Team Providers Care Spray Gun Repairer Helper Name Role Phone Casimiro Perez MD Primary Care Provider Nahed montes de oca Encounter Details Date Type Department Care Team (Late st Contact Info) Description 01/20/2024 Lab Requisition [facility] Pathology & Laboratory Medicine - [facility] [address] [place] [address] Reinier Arceo, [facility] [address] [place] [address] Chronic combined systolic (congestive) and [...] management options, if applicable. 01/21/2024 15:06 EDT [facility] Final Diagnosis A. SKIN OF BACK, MIDLINE, PUNCH BIOPSY: - Epidermal ulceration with sparse superficial dermal inflammation. See comment. 01/21/2024 15:06 [facility] Diagnosis Comment Numerous sections [...] the lack of intact epidermis. 01/21/2024 15:06 [facility] Attestation By the signature below, the attending physician certifies that they have 1) personally conducted a gross and/or microscopic examination of the described specimen(s), and/or personally interpreted the results of laboratory testing of the described specimen(s), and 2) personally rendered or confirmed the above diagnosis. 01/21/2024 15:06 [facility] at 1506 Microscopic Description [...] No scabies organisms are identified. 01/21/2024 15:06 [facility] Clinical History Unknown dermatitis, macular papular rash with generalized urticaria; clinical diagnosis code: L20.9 01/21/2024 15:06 [facility] Gross Description A. Received in formalin labelled with proper patient identification (initials C, K) and M back is a punch biopsy of canales skin (0.3 cm in diameter by 0.6 cm in depth). The specimen is submitted intact in A1. ELSIE VANESSA(ASCP) 01/20/2024 9:31 01/21/2024 15:06 [facility] Performing Lab [facility] 01/21/2024 15:06 EDT [facility] Scanned Images 01/21/2024 15:06 EDT [facility] Tissue SPECIMEN FROM SKIN / Unknown 01/19/2024 14:00 EDT 01/20/2024 8:26 EDT Reinier Arceo [facility] PATHOLOGY ORDERAB LES [facility] [address] [place] [address] documented in this encounter Visit Diagnoses Diagnosis Chronic combined systolic (congestive) and diastolic (congestive) heart failure (HCC-CMS) Atopic dermatitis, unspecified documented in this encounter Care Teams Spray Gun Repairer Helper Relationship Specialty Start Date End Date Casmiiro Perez MD PCP - General 05/03/15 documented as of this encounter
--- OUTSIDE RECORDS SUMMARY | 2024-02-22 14:59 | XMS_ITS ---
[place] [address] Care Team Providers Care Typing Checker Name Role Phone Reinier Arceo Primary Care Provider [phone] Dermatology Status:Under Review (Enrolling) Start date:02/21/2024 Enrollment reason:Under Review - Pending PA/BI Linked medications:dupilumab (Active) Linked problems:Prurigo nodularis (Active) Continued Care and Services Coordination
--- OUTSIDE RECORDS SUMMARY | 2024-02-22 14:59 | XMS_ITS | Encounter Summary ---
Author Organization [facility] [place] [address] Care Team Providers Care Machine Gun Mechanic Name Role Phone Von Miles MD Primary Care Provider [phone] Reason for Visit * Reason Comments Follow-up Encounter Details Date Type Department Care Team (Late st Contact Info) Description 04/17/2014 2:30 PM EDT Office Visit Dermatology at [address] [address] Sixto Doty MD [address] [facility] DERMATOLOGY [place], [place] [phone] Neurodermatitis (Primary Dx) Discharge Disposition: Home Social History Tobacco Use Types Packs/Day Years Used Date Smoking Tobacco: Never Sex and Gender Information Value Date Recorded Sex Assigned at Not on file Gender Identity Not on file Sexual Orientation Not on file documented as of this encounter Patient Instructions * Patient Instructions* Sarai Acosta LPN - 04/17/2014 2:48 PM EDT [facility] Dermatitis: After [...] help for plant rashes. ?? Try an ghku-gls-zxjqoug antihistamine such as diphenhydramine (Benadryl) or chlorpheniramine [...] more? Visit our health information library at [email or web address] You can also view health information on [email or web address], your personal patient account. Log in or sign up today. Enter F270 in the search box to learn more about Dermatitis: After Your Visit. ?? [phone] [employer]. Care instructions adapted under license by [facility]. This care instruction is for use with your licensed healthcare professional. If you have questions about a medical condition or this instruction, always ask your healthcare professional. [employer], [employer] disclaims any warranty or liability for your use of this information. Content Version: 9.9.550340; Last Revised: November 11, 2012 documented in [...] 2:20 PM EDT [place] [address] Austin Simon MD [facility] [place] [address] 04/11/2024 11:20 AM EDT Office Visit Dermatology at [facility] [address] [place] [phone] Terri Pimentel MD [facility] [address] [place] [address] documented as of this encounter Visit Diagnoses Diagnosis Neurodermatitis- Primary Lichenification and lichen simplex chronicus documented in this encounter Care Teams Machine Gun Mechanic Relationship Specialty Start Date End Date Von Miles MD [address] [place] [address] [place] [address] PCP - General 12/04/13 04/17/14 documented as of this encounter
--- OUTSIDE RECORDS SUMMARY | 2024-02-22 14:59 | XMS_ITS | Encounter Summary ---
Author Organization [facility] Address [facility] [place] [address] Care Team Providers Care Maintenance Data Analyst Name Role Phone Reinier Arceo Primary Care Provider [phone] Encounter Details Date Type Department Care Team (Late st Contact Info) Description 01/18/2023 External [place] [id number] Social History Tobacco Use Types Packs/Day Years Used Date Smoking Tobacco: Never Alcohol Use Standard Drinks/Week Comments Never 0 (1 standard drink = 0.6 oz pur e alcohol) [facility] Inpatient Questions Answer Date Recorded Does Anyone [...] 2:20 PM EDT Procedure [place] [address] Austin Simon MD [facility] [place] [address] 04/11/2024 11:20 AM EDT Office Visit Dermatology at [facility] [address] [place] [address] Terri Pimentel MD [facility] [address] [place] [address] documented as of this encounter Procedures Procedure Name Priority Date/Time Associated Diagnosis Comments ECG SCAN Routine 01/18/2023 1:02 PM EDT documented in this encounter Results * Scan Doc: ECG (01/18/2023 1:02 PM EDT) Historical Provider MD WEBER MGR SCAN EX T ORDR/RSLT documented in this encounter Visit Diagnoses Not on filedocumented in this encounter Care Teams Maintenance Data Analyst Relationship Specialty Start Date End Date Reinier Arceo PA [address] [place] [address] PCP - General Internal Medicine 01/18/23 documented as of this encounter
--- OUTSIDE RECORDS SUMMARY | 2024-02-22 14:59 | XMS_ITS | Encounter Summary ---
Author Organization [facility]ly [facility] [place] [address] Care Team Providers Care Dairy Cattle Farm Manager Name Role Phone Von Miles MD Primary Care Provider [phone] Reason for Visit * Reason Comments Follow-up Encounter Details Date Type Department Care Team (Late st Contact Info) Description 02/06/2014 2:45 PM EDT Office Visit Dermatology at [address] [place] [address] Sixto Doty MD [address] [facility] [place] [place] [address] Neurodermatitis (Primary Dx) Social History Tobacco Use Types Packs/Day Years Used Date Smoking Tobacco: Never Sex and Gender Information Value Date Recorded Sex Assigned at Not on file Gender Identity Not on file Sexual Orientation Not on file documented as of this encounter Patient Instructions * Patient Instructions* Sarai Acosta LPN - 02/06/2014 3:18 PM EDT [facility] Dermatitis: After Your Visit Your Care [...] help for plant rashes. ?? Try an rklk-irk-esfkbso antihistamine such as diphenhydramine (Benadryl) or chlorpheniramine [...] more? Visit our health information library at [email or web address] You can also view health information on [employer], your personal patient account. Log in or sign up today. Enter F270 in the search box to learn more about Dermatitis: After Your Visit. ?? [id number] [employer]. Care instructions adapted under license by [facility]. This care instruction is for use with your licensed healthcare professional. If you have questions about a medical condition or this instruction, always ask your healthcare professional. Healthwise, [employer] disclaims any warranty or liability for your use of this information. Content Version: 9.9.405471; Last Revised: November 11, 2012 documented in [...] 2:20 PM EDT Procedure [place] [address] Austin Simon MD [facility] [place] [address] 04/11/2024 11:20 AM EDT Office Visit Dermatology at [address] [place] [address] Terri Pimentel MD [facility] [address] [place] [address] documented as of this encounter Visit Diagnoses Diagnosis Neurodermatitis- Primary Lichenification and lichen simplex chronicus documented in this encounter Care Teams Dairy Cattle Farm Manager Relationship Specialty Start Date End Date Von Miles MD [address] [place] [address] [place] [address] PCP - General 12/04/13 04/17/14 documented as of this encounter
--- OUTSIDE RECORDS SUMMARY | 2024-02-22 14:59 | XMS_ITS | Encounter Summary ---
Author Organization [facility] [place] [address] Care Team Providers Care Sleeping Car Service Attendant Name Role Phone Reinier Arceo Primary Care Provider [phone] Encounter Details Date Type Department Care Team (Late st Contact Info) Description 01/18/2023 1:10 PM EDT Ancillary Procedure Radiology Library at [facility] [place] [address] Dave Rowan MD [facility] [place] [address] Social History Tobacco Use Types Packs/Day Years Used Date Smoking Tobacco: Never Alcohol Use Standard Drinks/Week Comments Never 0 (1 standard drink = 0.6 oz pur e alcohol) [facility] Inpatient Questions Answer Date Recorded Does [...] 2:20 PM EDT Procedure [place] [address] Austin Simon MD [facility] [place] [address] 04/11/2024 11:20 AM EDT Office Visit Dermatology at [facility] [address] [place] [address] Terri Pimentel MD [facility] [address] [place] [address] documented as of this encounter Procedures Procedure Name Priority Date/Time Associated Diagnosis Comments FILM LIBRARY STORAGE ONLY DX CHEST Routine 01/18/2023 1:08 PM EDT documented in this encounter Results * Film Library- Storage Only DX Chest (01/18/2023 1:08 PM EDT) Narrative [facility] 01/18/2023 1:08 PM EDT This exam is auto-finalizing. It's purpose is for storage only. Dave Rowan MD IMG FILM LIBRARY ORD ERABLES Performing Organization Address City/State/[facility] Co de Phone Number [place], [place] documented in this encounter Visit Diagnoses Not on filedocumented in this encounter Care Teams Sleeping Car Service Attendant Relationship Specialty Start Date End Date Reinier Arceo PA [address] [place] [address] PCP - General Internal Medicine 01/18/23 documented as of this encounter
--- OUTSIDE RECORDS SUMMARY | 2024-02-22 14:59 | XMS_ITS | Encounter Summary ---
Author Organization [facility] [place] [address] Care Team Providers Care Ophthalmology Technician Name Role Phone Reina Alcala APRN Primary Care Provider [phone] Reason for Visit * Reason Comments Psoriasis Encounter Details Date Type Department Care Team (Late st Contact Info) Description 10/09/2014 1:15 PM EDT Office Visit Dermatology at [address] [place] [address] Sixto Doty MD [address] [facility] [place] [place] [address] Neurodermatitis Discharge Disposition: Home Social History Tobacco [...] from the original note were not included. [facility] Psoriasis: After Your Visit Your Care Instructions Psoriasis (say rgk-XJ-md-ruel) is a long-term skin problem that causes [...] still damp. This seals in moisture. Use rywd-bnk-fnqqqge products that your doctor suggests. These may [...] more? Visit our health information library at [email or web address] You can also view health information on [employer], your personal patient account. Log in or sign up today. Enter U759 in the search box to learn more about Psoriasis: After Your Visit. ?? [phone] [employer]. Care instructions adapted under license by [facility]. This care instruction is for use with your licensed healthcare professional. If you have questions about a medical condition or this instruction, always ask your healthcare professional. [employer] disclaims any warranty or liability for your use of this information. Content Version: 10.3.862242; Current as of: September 06, 2013 documented [...] 2:20 PM EDT [place] [address] Austin Simon MD [facility] [place] [place] [address] 04/11/2024 11:20 AM EDT Office Visit Dermatology at [facility] [address] [place] [address] Terri Pimentel MD [facility] [address] [place] [address] documented as of this encounter Visit Diagnoses Diagnosis Neurodermatitis Lichenification and lichen simplex chronicus documented in this encounter Care Teams Ophthalmology Technician Relationship Specialty Start Date End Date Reina Alcala APRN [address] [place] [address] [place] [address] PCP - General 04/18/14 01/17/23 documented as of this encounter
--- OUTSIDE RECORDS SUMMARY | 2024-02-22 14:59 | XMS_ITS | Encounter Summary ---
Author Organization [facility] Address [facility] [place] [address] Care Team Providers Care Sleever Name Role Phone Reinier Arceo Primary Care Provider [phone] Encounter Details Date Type Department Care Team (Late st Contact Info) Description 01/18/2023 Telephone Cardiology at [address] [place] [address] [facility] [place] [address] Social History Tobacco Use Types Packs/Day Years Used Date Smoking Tobacco: Never Alcohol Use Standard Drinks/Week Comments Never 0 (1 standard drink = 0.6 oz pur e alcohol) [facility] Inpatient Questions Answer Date Recorded Does Anyone [...] PM Referring Provider: Dr. Dykes Patient Location: [facility] Past Medical History: DM Hypertension Hyperlipidemia COPD HFrEF 45% (2019) Presenting Symptoms per OSH: Patient is a 67-year-old with a past medical history of heart failure reduced EF (last known ejection fraction was 45% in 2020), diabetes, hypertension, hyperlipidemia and COPD. He presented to the [facility] emergency department after being redirected from the [facility] urgent walk-in clinic. He complains of [...] the patient condition. Michelle Caicedo, SONNY Pager [phone] 01/18/2023 documented in this encounter Plan of Treatment Upcoming Encounters Date Type Department Care Team (Late st Contact Info) Description 04/06/2024 2:20 PM EDT [place] [address] [facility] [place] [address] 04/11/2024 11:20 AM EDT Office Visit Dermatology at [facility] [address] [place] [address] [facility] [address] [place] [address] documented as of this encounter Visit Diagnoses Not on filedocumented in this encounter Care Teams Sleever Relationship Specialty Start Date End Date Reinier Arceo PA [address] [place] [address] PCP - General Internal Medicine 01/18/23 documented as of this encounter
--- OUTSIDE RECORDS SUMMARY | 2024-02-22 14:59 | XMS_ITS | Referral Summary ---
Author Organization [facility] Address [address] [place] [address] Care Team Providers Care Talent Acquisition Associate Name Role Phone Casimiro Perez MD Primary Care Provider Nahed rubiole Encounters Date Type Department Care Team Description 01/20/2024 Lab Requisition [facility] Pathology & Laboratory Medicine - [facility] [address] [place] [address] Reinier Arceo RPA Chronic combined systolic (congestive) [...] management options, if applicable. 01/21/2024 15:06 EDT [facility] Final Diagnosis A. SKIN OF BACK, MIDLINE, PUNCH BIOPSY: - Epidermal ulceration with sparse superficial dermal inflammation. See comment. 01/21/2024 15:06 EDT [facility] Diagnosis Comment Numerous sections [...] 15:06 [facility] Performing Lab [facility] 01/21/2024 15:06 [facility] Scanned Images 01/21/2024 15:06 [facility] Tissue SPECIMEN FROM SKIN / Unknown 01/19/2024 14:00 EDT 01/20/2024 8:26 EDT Reinier Arceo RPA PATHOLOGY ORDERAB LES [facility] [address] [place] [address] from Last 3 Months Care Teams Talent Acquisition Associate Relationship Specialty Start Date End Date Casimiro Perez MD PCP - General 05/03/15
--- OUTSIDE RECORDS SUMMARY | 2024-02-22 14:59 | XMS_ITS | Encounter Summary ---
Author Organization [facility] Address [address] [place] [address] Care Team Providers Care Hydraulic Jack Operator Name Role Phone Casimiro Perez MD Primary Care Provider Nahed montes de oca Encounter Details Date Type Department Care Team (Late st Contact Info) Description 09/02/2019 Lab Requisition [facility] Pathology & Laboratory Medicine - [facility] [address] [place] [address] Unknown, Provider, Social History Tobacco Use Types [...] IGA <1.2 <4.0 U/mL 09/04/2019 14:27 EDT [facility] Comment: A negative result may be due to IgA deficiency and does not rule out celiac disease. ? Negative: ??<4.0 U/mL ? Weak Positive: ??4.0 - 10.0 U/mL ? Positive: ??>10.0 U/mL Results were obtained with the [employer] Lite R h-tTG IgA WENDY assay on the Dynex DSX. IgA 279 85 - 499 mg/dL 09/04/2019 14:27 EDT [facility] Celiac Disease Interpretation Negative Serology. Celiac disease unlikely. Approximately 10% of patients with celiac disease are seronegative. Patients who are already adhering to a gluten-free diet may also be seronegative. If celiac disease is highly clinically suspected, referral to gastroenterology for additional evaluation is recommended. 09/04/2019 14:27 EDT [facility] Blood VENOUS BLOOD / Unknown 09/01/2019 11:51 EST 09/03/2019 16:21 EDT Provider Unknown IMMUNOLOGY AND SEROL ROSSI ORDERABLES [facility] [address] [place] [address] documented in this encounter Visit Diagnoses Not on filedocumented in this encounter Care Teams Hydraulic Jack Operator Relationship Specialty Start Date End Date Casimiro Perez MD PCP - General 05/03/15 documented as of this encounter
--- OUTSIDE RECORDS SUMMARY | 2024-02-22 14:59 | XMS_ITS | Clinical Summary ---
Author Organization [facility] Address [address] [place] [address] Care Team Providers Care Commercial Lender Name Role Phone Casimiro Perez MD Primary Care Provider Nahed rubiole Encounters Date Type Department Care Team Description 01/20/2024 Lab Requisition [facility] Pathology & Laboratory Medicine - [place] [address] [place] [address] Reinier Arceo RPA Chronic combined systolic (congestive) [...] explore management options, if applicable. 01/21/2024 15:06 [facility] Final Diagnosis A. SKIN OF BACK, MIDLINE, PUNCH BIOPSY: - Epidermal ulceration with sparse superficial dermal inflammation. See comment. 01/21/2024 15:06 [facility] Diagnosis Comment Numerous sections of [...] the lack of intact epidermis. 01/21/2024 15:06 [facility] Attestation By the signature below, the attending physician certifies that they have 1) personally conducted a gross and/or microscopic examination of the described specimen(s), and/or personally interpreted the results of laboratory testing of the described specimen(s), and 2) personally rendered or confirmed the above diagnosis. 01/21/2024 15:06 [facility] at [address]6 Microscopic [...] No scabies organisms are identified. 01/21/2024 15:06 [facility] Clinical History Unknown dermatitis, macular papular rash with generalized urticaria; clinical diagnosis code: L20.9 01/21/2024 15:06 [facility] Gross Description A. Received in formalin labelled with proper patient identification (initials C, K) and M back is a punch biopsy of canales skin (0.3 cm in diameter by 0.6 cm in depth). The specimen is submitted intact in A1. ELSIE VANESSA(ASCP) 01/20/2024 9:31 01/21/2024 15:06 EDT [facility] Performing Lab [facility] 01/21/2024 15:06 EDT [facility] Scanned Images 01/21/2024 15:06 EDT [facility] Tissue SPECIMEN FROM SKIN / Unknown 01/19/2024 14:00 EDT 01/20/2024 8:26 EDT Reinier Arceo [facility] PATHOLOGY ORDERAB LES [facility] [address] [place] [address] from Last 3 Months Care Teams Commercial Lender Relationship Specialty Start Date End Date Casimiro Perez MD PCP - General 05/03/15
--- OUTSIDE RECORDS SUMMARY | 2024-02-22 14:59 | XMS_ITS | Encounter Summary ---
Author Organization [facility] [place] [address] Care Team Providers Care Technician Chemical Cleaning Name Role Phone Reinier Arceo Primary Care Provider [phone] Reason for Visit * Auth/Cert (Routine) Specialty Diagnoses / Procedures Referred By Fady t Referred To Contact Diagnoses Heart failure CHF w/ CLEM Procedures EMERGENCY FERI Tanya Seaman MD [facility] [place] [address] [place] [address] [facility] Referral ID Status Reason Start Date Expiration Date Visits Re quested Visits Authorized [id number] 1 1 Encounter Details Date Type Department Care Team (Late st Contact Info) Description 01/22/2023 1:00 PM EDT - 01/22/2023 2:00 PM EDT [place] [address] Layton Morris MD [facility] [place] [place] [address] CARDIAC CATHETERIZATION Social History Tobacco Use Types [...] 2020), diabetes, hypertension,and hyperlipidemia who presents from [facility] in [place], [place] and was subsequently transferred to [facility] ED for further management. Upon initial presentation to [facility] ED: The patient was noted to [...] reportedly 40 mg PO) and transferred to [facility] for management of presumed acute on chronic HFrEF and CLEM. Upon direct admission to [facility]: The patient was noted to be afebrile and hemodynamically stable (BP 158/90, HR 71) and was saturating 95% on room air. CBC was significant for absence of leukocytosis and normocytic anemia (hemoglobin 10.1). CMP was significant for continued evidence of CLME with creatinine 5.71, BUN 60, and EGFR [...] Patient was started on GDMT with metoprolol lekcukpom27 mg daily and losartan 25 mg daily. [...] he does have capacity. Spoke with his manager rn case Randa Gonzalez prior to discharge who was [...] Time Provider Department Center 01/28/2023 1:[address] [facility] ROOM 4 [facility] Rad Your Inpatient Doctor: Mendel Luna MD Your Primary Care Provider: ELSIE Espinoza [phone] For questions regarding this document or issues relating to this hospitalization on the Medical Service, please contact your inpatient physician through the [facility] Structures Mechanic . Issues afterhours and on weekends will be handled by the Hospitalist staff on-call. General Instructions None Future Appointments and Orders Future Appointments and Orders Future Appointments Provider Department Dept Phone 01/28/2023 1:00 PM [facility] US ROOM 4 Ultrasound at [facility] Arrive at: Proposal Review Analyst Area [phone] Please bring someone to drive you home. [...] Sanchez for admission to Home Health. [address] [address] Phone Number: [phone] (home) Date of : 1955 Inpatient DOCUMENTATION FOR VNA SERVICES (INCLUDING THOSE PATIENTS WITH MEDICARE COVERAGE REQUIRING HOME VNA SERVICES AND/OR HOSPICE SERVICES) PATIENT'S LOCATION: Miguel Sanchez [address] [address] [phone] (home) Cell: Telephone Information: Underground Foreman's Name: self In discussion with the attending physician, it is certified that this patient is under their care and that they, or a Nurse Practitioner, Clinical Nurse specialist or Physician Daylight Driller who is working directly with them, had [...] manage benedict catheter HOME HEALTH CARE AGENCY: [facility]. [address] [place] [address] Start of care: 24-48 hours after discharge [...] Questions: Disciplines Requested: Nursing Referral to Urology [AFV035 Custom] As directed Process Instructions: If no progress note charted, please enter Clinical details in comments. Scheduling Instructions: Questions: My question or request is: 67 yo M admitted 01/18-01/26 w/ renal failure due to obstruction, discharged w/ benedict. Provider Contact Information: [address] / [facility] [address] Discharge References/Attachments: Discharge References/Attachments None documented in [...] Time Provider Department Center 01/28/2023 1:[address] [facility] ROOM 4 [facility] Rad Your PCP office will contact you about scheduling follow up. Your Inpatient Doctor: Mendel Luna MD Your Primary Care Provider: ELSIE Espinoza [phone] For questions regarding this document or issues relating to this hospitalization on the Medical Service, please contact your inpatient physician through the [facility] Structures Mechanic . Issues afterhours and on weekends will [...] discharge to home with a ride from [facility]. * Tati Schultz - 01/27/2023 3:43 PM EDTSummary: Transportation Transportation for discharge was scheduled and confirmed through [facility]. [facility] will have a company tanker truck driver at the Main Entrance at 4:15p today to provide patient with transportation home. * Camille Shelley RD - 01/27/2023 12:42 PM EDT Nutrition Progress Note Miguel Sanchez is a 67 y.o. male with PMH significant for HFrEF (last known EF 45% in 2020), diabetes, hypertension, and hyperlipidemia who presents from [facility] [...] Marii Serrano - 01/27/2023 11:42 AM EDT Adjustment Supervisor Encounter Note Patient Name: Miguel Sanchez : [id number] MR#: [id number] Admit Date: 01/18/2023 5:25 PM Hospital Day [...] AM EDT Hypertension-Nephrology Inpatient Follow-up Miguel Sanchez [id number] 1955 ID: 67 y.o. old male seen [...] SPEP shows possible paraprotein however DOROTEO negative. Fluvanna & Lambda light chains elevated however ratio [...] TID This case was discussed with staff hazardous material technician Dr. Crawford and the primary team. Please contact me at phone: [phone] or pager: [phone] with any questions. Deonte Lugo MD Nephrology [...] Marii Serrano - 01/26/2023 3:59 PM EDT Adjustment Supervisor Encounter Note Patient Name: Miguel Sanchez : [id number] MR#: [id number] Admit Date: 01/18/2023 5:25 PM Hospital Day [...] 1955 PCP: ELSIE Espinoza PCP phone number: [phone] Date of Admission: 01/18/2023 ( Hospital Day 8 days ) Attending:Mendel Luna MD ID: Miguel Sanchez is a 67 y.o. male with PMH significant for HFrEF (last known EF 45% in 2020), diabetes, hypertension, and hyperlipidemia who presents from [facility] after being [facility] [...] 90.8 90.0 90.3 90.3 Recent Labs 01/26/23 03101/25/23 0406 01/24/23 0256 01/23/23 0253 01/22/23 0242 [...] Gas) No results found for: PHART, PO2ART, GHE2RSV, BVD3DMP Microbiology: Microbiology Results (Last 30 days) Procedure Component Value Units Date/Time Urine culture [[id number]] Collected: 01/18/232212 Lab Status: Final result Specimen: [...] bladder.. Electronically signed by: Jimmie العراقي MD, [facility] ([phone]), at 01/19/2023 8:39 AM Thank you for letting us participate in the care of this patient. If you are a health care provider and have any questions regarding this report, please contact the number above. For patients who have questions, please contact the health farm or ranch animal caretaker that requested your imaging first. Jimmie العراقي, [...] who have questions, please contact the health farm or ranch animal caretaker that requested your imaging first. Elsie Garza, E Apprentice Photographer Electronically Signed Final Report 01/25/2023 04:10 pm [...] diabetes, hypertension, and hyperlipidemia who presents from [facility] [...] PPx: Diet: Daily Healthy Menu Choices/Cardiac diet ([facility]-Diet) Lines: Peripheral IV Line - Single Lumen [...] Yousif MSW - 01/26/2023 2:43 PM EDT FOXING CLOSER received a consult to support patient regarding concern of not getting his rent paid on time, which is typically due on the 1st of every month. FOXING CLOSER called patient's property management company, [employer], and spoke to one of the archaeologist's, Meri, who stated they have a crow period forpaying rent late and are flexible with this kind of stuff. Meri also mentioned patient had spoken with one of her colleagues recently and asked if they could drive down to the hospital to grabthe check. FOXING CLOSER checked with patient to see if he has the check, to which he responded no. Patient to be discharged tomorrow. * Deonte Lugo MD - 01/26/2023 7:51 AM EDT Hypertension-Nephrology Inpatient Follow-up Miguel Sanchez [id number] 1955 ID: 67 y.o. old male seen [...] SPEP shows possible paraprotein however DOROTEO negative. Fluvanna & Lambda light chains elevated however ratio [...] daily This case was discussed with staff hazardous material technician Dr. Crawford and the primary team. Please contact me at phone: [phone] or pager: [phone] with any questions. Deonte Lugo MD Nephrology [...] AM EDT Hypertension-Nephrology Inpatient Follow-up Miguel Sanchez [id number] 1955 ID: 67 y.o. old male seen [...] SPEP shows possible paraprotein however DOROTEO negative. Fluvanna & Lambda light chains elevated however ratio [...] daily This case was discussed with staff hazardous material technician Dr. Crawford. Please contact me at phone: [phone] or pager: [phone] with any questions. Deonte Lugo MD Nephrology [...] and volume overload resolving. Will unique need watermelon inspector diuretics to maintain fluid balance. Please obtain repeat renal US and schedule for renal clinic follow up with Dr Lugo in 2 weeks. * Kendy Montes MD - 01/25/2023 6:05 AM EDT Images from the original note were not included. Cardiology Progress Note Patient info: Name: Miguel Sanchez : 1955 PCP: ELSIE Espinoza PCP phone number: [phone] Date of Admission: 01/18/2023 ( Hospital Day 7 days ) Attending:Mendel Luna MD ID: Miguel Sanchez is a 67 y.o. male with PMH significant for HFrEF (last known EF 45% in 2020), diabetes, hypertension, and hyperlipidemia who presents from [facility] after being [facility] [...] Gas) No results found for: PHART, PO2ART, SZL0RHA, WHV4TQJ Microbiology: Microbiology Results (Last 30 days) Procedure Component Value Units Date/Time Urine culture [[id number]] Collected: 01/18/232212 Lab Status: Final result Specimen: [...] bladder.. Electronically signed by: Jimmie العراقي MD, [facility] ([phone]), at 01/19/2023 8:39 AM Thank you for letting us participate in the care of this patient. If you are a health care provider and have any questions regarding this report, please contact the number above. For patients who have questions, please contact the health farm or ranch animal caretaker that requested your imaging first. Jimmie العراقي, [...] diabetes, hypertension, and hyperlipidemia who presents from [facility] after being [facility] [...] Montes MD Internal Medicine, PGY-1 Cardiology M1-S2, #[id number] 01/25/2023, 6:05 AM Associated attestation - Mendel [...] AM EDT Hypertension-Nephrology Inpatient Follow-up Miguel Sanchez [id number] 1955 ID: 67 y.o. old male seen for CLEM. Interval History: Diuretics held again yesterday however continues to auto diurese. He clarified his living situationfor us and explains that he lives independently in low income housing and depends on rides to get to clinic appointments etc which is not always available. He follows very closely with a mental health clinic and has a protective services social worker there who helps him. Physical [...] negative. SPEP shows possible paraprotein DOROTEO pending. Fluvanna & Lambda light chains elevated however ratio [...] and from clinic visits and has a protective services social worker whogenerally helps him with this. [...] deficiency. This case was discussed with staff hazardous material technician Dr. Morrow. Please contact me at phone: [phone] or pager: [phone] with any questions. Deonte Lugo MD Nephrology [...] He does report having a mental health culture manager who may be of some assistance when discharge planning comes to play. * Kendy Montes MD - 01/24/2023 6:39 AM EDT Images from the original note were not included. Cardiology Progress Note Patient info: Name: Miguel Sanchez : 1955 PCP: ELSIE Espinoza PCP phone number: [phone] Date of Admission: 01/18/2023 ( Hospital Day 6 days ) Attending:Mendel Luna MD ID: Miguel Sanchez is a 67 y.o. male with PMH significant for HFrEF (last known EF 45% in 2019), diabetes, hypertension, and hyperlipidemia who presents from [facility] after being [facility] [...] Gas) No results found for: PHART, PO2ART, OLD7XLR, WCA1HGZ Microbiology: Microbiology Results (Last 30 days) Procedure Component Value Units Date/Time Urine culture [[id number]] Collected: 01/18/232212 Lab Status: Final result Specimen: [...] bladder.. Electronically signed by: Jimmie العراقي MD, [facility] ([phone]), at 01/19/2023 8:39 AM Thank you for letting us participate in the care of this patient. If you are a health care provider and have any questions regarding this report, please contact the number above. For patients who have questions, please contact the health farm or ranch animal caretaker that requested your imaging first. Jimmie العراقي, [...] diabetes, hypertension, and hyperlipidemia who presents from [facility] ED after being [facility] [...] AM EDT Hypertension-Nephrology Inpatient Follow-up Miguel Sanchez [id number] 1955 ID: 67 y.o. old male seen [...] hepatitis serologies negative. SPEP shows possible paraprotein DOORTEO pending. Fluvanna & Lambda light chains elevated however ratio [...] and voiding trial - Please start ergocalciferol 38965 U weekly This case was discussed with staff hazardous material technician Dr. Morrow. Please contact me at phone: [phone] or pager: [phone] with any questions. Deonte Lugo MD Nephrology [...] 1955 PCP: ELSIE Espinoza PCP phone number: [phone] Date of Admission: 01/18/2023 ( Hospital Day 5 days ) Attending:Mendel Luna MD ID: Miguel Sanchez is a 67 y.o. male with PMH significant for HFrEF (last known EF 45% in 2019), diabetes, hypertension, and hyperlipidemia who presents from [facility] after being [facility] from [facility] [...] Gas) No results found for: PHART, PO2ART, WKQ0KRS, ATO9ISX Microbiology: Microbiology Results (Last 30 days) Procedure Component Value Units Date/Time Urine culture [[id number]] Collected: 01/18/232212 Lab Status: Final result Specimen: [...] bladder.. Electronically signed by: Jimmie العراقي MD, [facility] ([phone]), at 01/19/2023 8:39 AM Thank you for letting us participate in the care of this patient. If you are a health care provider and have any questions regarding this report, please contact the number above. For patients who have questions, please contact the health farm or ranch animal caretaker that requested your imaging first. Jimmie العراقي, [...] diabetes, hypertension, and hyperlipidemia who presents from [facility] after being [facility] [...] diabetes, hypertension, and hyperlipidemia who presents from [facility] after being [facility] from [facility] [...] diabetes, hypertension, and hyperlipidemia who presents from [facility] after being [facility] [...] transportation for shopping and errands and his manager rn case visits once a week. Pt does not [...] Consistently following commands ADL: Assist needed to don/doff hospital gown d/t lines Toileting: provided pt [...] Therapy: 30 (SCHM x 2; 9:56-10:26) Pager: [phone] Sushma Hernandez OT Occupational Therapy Rehabilitation Department * Deonte Lugo MD - 01/22/2023 7:46 AM EDT Hypertension-Nephrology Inpatient Follow-up Miguel Sanchez [id number] 1955 ID: 67 y.o. old male seen [...] negative. SPEP shows possible paraprotein DOROTEO pending. Fluvanna & Lambda light chains elevated however ratio [...] primaryteam. This case was discussed with staff hazardous material technician Dr. Morrow. Please contact me at phone: [phone] or pager: [phone] with any questions. Deonte Lugo MD Nephrology [...] 1955 PCP: ELSIE Espinoza PCP phone number: [phone] Date of Admission: 01/18/2023 ( Hospital Day 4 days ) Attending:Mendel Luna MD ID: Miguel Sanchez is a 67 y.o. male with PMH significant for HFrEF (last known EF 45% in 2020), diabetes, hypertension, and hyperlipidemia who presents from [facility] after being [facility] [...] Subjective: Yesterday: -Holding diuresis. Was going to [facility] but got bumped so plan for tomorrow. [...] Gas) No results found for: PHART, PO2ART, AXB7MFG, WGF5XGA Microbiology: Microbiology Results (Last 30 days) Procedure Component Value Units Date/Time Urine culture [[id number]] Collected: 01/18/232212 Lab Status: Final result Specimen: [...] bladder.. Electronically signed by: Jimmie العراقي MD, [facility] ([phone]), at 01/19/2023 8:39 AM Thank you for letting us participate in the care of this patient. If you are a health care provider and have any questions regarding this report, please contact the number above. For patients who have questions, please contact the health farm or ranch animal caretaker that requested your imaging first. Jimmie العراقي, [...] diabetes, hypertension, and hyperlipidemia who presents from [facility] after being [facility] [...] (Active) Number of days: 3 Code status: @YARA@ Kendy Montes MD Internal Medicine, PGY-1 Cardiology [...] diabetes, hypertension, and hyperlipidemia who presents from [facility] after being [facility] [...] alone in a single level apartment in [place], [place] Bathroom Set-up: Tub-shower with a shower [...] Therapy: 19 Billing Code: Gait x1 Sera Mancera PT Pager: [phone] Physical Therapy Inpatient Rehabilitation Department * Deonte Lugo MD - 01/21/2023 7:44 AM EDT Hypertension-Nephrology Inpatient Follow-up Miguel Sanchez [id number] 1955 ID: 67 y.o. old male seen [...] being This case was discussed with staff hazardous material technician Dr. Morrow. Please contact me at phone: [phone] or pager: [phone] with any questions. Deonte Lugo MD Nephrology [...] 1955 PCP: ELSIE Espinoza PCP phone number: [phone] Date of Admission: 01/18/2023 ( Hospital Day 3 days ) Attending:Chris Lim MD ID: Miguel Sanchez is a 67 y.o. male with PMH significant for HFrEF (last known EF 45% in 2020), diabetes, hypertension, and hyperlipidemia who presents from [facility] after being [facility] [...] cap applied 01/19/23 2100 Phlebitis 0-->no symptoms 01/20/23353 Infiltration 0-->no symptoms 01/20/23 035 Labs: Recent Labs 01/21/23 0242 01/20/23 0326 01/19/23 0150 01/18/23221501/18/231915 WBC 8.1 8.1 7.8 6.9 7.2 HGB 11.1* 10.8* 10.1* 10.1* 10.1* HCT 32.4* 32.5* 30.3* 31.0* 30.1* PLATELET 202 202 173 196 183 MCV 90.3 91.8 93.2* 93.9* 92.9 Recent Labs 01/21/23 0242 01/20/23 0326 01/19/23 1415 01/19/23 1029 01/19/23 0621 01/19/230 01/18/232215 NA 140 139 140 143 143 143 [...] Recent Labs 01/18/232215 TSH 2.03 Recent Labs 01/20/231944 01/20/23 1638 01/20/23 1614 01/20/23 1133 01/20/23 0724 01/19/23 2133 01/19/23 1637 01/19/23 1131 01/19/23 0800 01/19/23 0742 01/19/23 0146 POCGLU 158 96 101 206* 152 112 175 96 92 87 75 Heme No results for input(s): LDH, HAPTOGLOBIN, URICACID in the last 168 hours. ABG (Arterial Blood Gas) No results found for: PHART, PO2ART, EJN4FPM, UQC0JDL Microbiology: Microbiology Results (Last 30 days) Procedure Component Value Units Date/Time Urine culture [[id number]] Collected: 01/18/232212 Lab Status: Final result Specimen: [...] bladder.. Electronically signed by: Jimmie العراقي MD, [facility] ([phone]), at 01/19/2023 8:39 AM Thank you for letting us participate in the care of this patient. If you are a health care provider and have any questions regarding this report, please contact the number above. For patients who have questions, please contact the health farm or ranch animal caretaker that requested your imaging first. Jimmie العراقي, [...] diabetes, hypertension, and hyperlipidemia who presents from [facility] after being [facility] [...] (Active) Number of days: 2 Code status: @AKUATAFATUMA@ Kendy Montes MD Internal Medicine, PGY-1 Cardiology M1-S1, #8812 Cardiology M1-S2, #0810 01/21/2023, 6:02 AM Cardiology Staff Addendum Miguel [...] AM EDT Hypertension-Nephrology Inpatient Follow-up Miguel Sanchez [id number] 1955 ID: 67 y.o. old male seen [...] serologies This case was discussed with staff hazardous material technician Dr. Morrow and the patient's primary team. Please contact me at phone: [phone] or pager: [phone] with any questions. Deonte Lugo MD Nephrology [...] Reina Alcala APRN (Inactive) PCP phone number: [phone] Date of Admission: 01/18/2023 ( Hospital Day 2 days ) Attending:Chris Lim MD ID: Miguel Sanchez is a 67 y.o. male with PMH significant for HFrEF (last known EF 45% in 2020), diabetes, hypertension, and hyperlipidemia who presents from [facility] after being [facility] from [facility] [...] Labs: Recent Labs 01/20/23 0326 01/19/23 0150 01/18/23221501/18/231915 WBC 8.1 7.8 6.9 7.2 HGB 10.8* [...] Gas) No results found for: PHART, PO2ART, HDN0KFB, AIL7GRY Microbiology: Microbiology Results (Last 30 days) Procedure Component Value Units Date/Time Urine culture [[id number]] Collected: 01/18/232212 Lab Status: Final result Specimen: [...] bladder.. Electronically signed by: Jimmie العراقي MD, [facility] ([phone]), at 01/19/2023 8:39 AM Thank you for letting us participate in the care of this patient. If you are a health care provider and have any questions regarding this report, please contact the number above. For patients who have questions, please contact the health farm or ranch animal caretaker that requested your imaging first. Jimmie العراقي, [...] diabetes, hypertension, and hyperlipidemia who presents from [facility] after being [facility] [...] diabetes, hypertension, and hyperlipidemia who presents from [facility] after being red[facility] for one month of progressively worsening shortness of breath and associated chest pain occurring both at rest and on exertion. Social History: Home set-up: Lives alone in a single level apartment in [place], [place] Bathroom Set-up: Tub-shower with a shower [...] Moderate Complexity Evaluation Sera Mancera, LORA Pager: [phone] Physical Therapy Inpatient Rehabilitation Department * Sushma Hernandez, OT - 01/19/2023 10:30 AM EDT Occupational Therapy Evaluation Patient profile: Miguel Sanchez is a 67 y.o. male with PMH significant for HFrEF (last known EF 45% in 2020), diabetes, hypertension, and hyperlipidemia who presents from [facility] [...] transportation for shopping and errands and his manager rn case visits once a week. Pt does not [...] and measurable assessment of functional outcome. Pager: [phone] Sushma Hernandez OTR/L Occupational Therapy Rehabilitation Department * Marii Serrano - 01/19/2023 10:23 AM EDT Adjustment Supervisor Encounter Note Patient Name: Miguel Sanchez : [id number] MR#: [id number] Admit Date: 01/18/2023 5:25 PM Hospital Day [...] Kevin Ashwin and doesn't believe in goingto Buddhist because he can mu-ism God in any place he is. Patient [...] sent to Office of Care Management ~ Supervisor Special Effects. * Chris Lim MD - 01/19/2023 6:11 AM EDT Images from the original note were not included. Cardiology Progress Note Patient info: Name: Miguel Sanchez : 1955 PCP: Reina Alcala APRN (Inactive) PCP phone number: [phone] Date of Admission: 01/18/2023 ( Hospital Day 1 day ) Attending:Chris Lim MD ID: Miguel Sanchez is a 67 y.o. male with PMH significant for HFrEF (last known EF 45% in 2019), diabetes, hypertension, and hyperlipidemia who presents from [facility] after [facility] [...] afebrile and hemodynamically stable upon transfer to [facility]. Interestingly, initial exam did not demonstrate marked [...] Cardiac Enzymes Recent Labs 01/19/23 0150 01/18/23 191 CK 70 -- PROBNP -- 11,818* Endocrine Recent Labs 01/18/23 221 TSH 2.03 Recent Labs 01/19/23 0800 01/19/23 0742 01/19/23 0146 POCGLU 92 87 75 Heme No results for input(s): LDH, HAPTOGLOBIN, URICACID in the last 168 hours. ABG (Arterial Blood Gas) No results found for: PHART, PO2ART, PYM0ZVG, RRW5JZD Microbiology: Microbiology Results (Last 30 days) No [...] bladder.. Electronically signed by: Jimmie العراقي MD, [facility] ([phone]), at 01/19/2023 8:39 AM Thank you for letting us participate in the care of this patient. If you are a health care provider and have any questions regarding this report, please contact the number above. For patients who have questions, please contact the health farm or ranch animal caretaker that requested your imaging first. Jimmie العراقي, [...] diabetes, hypertension, and hyperlipidemia who presents from [facility] ED after being [facility] from [facility] [...] Reina Alcala APRN (Inactive) PCP phone number: [phone] Date of Admission: 01/18/2023 ( Hospital Day 0 days ) Attending:Tanya Seaman MD ID: Miguel Sanchez is a 67 y.o. male with PMH significant for HFrEF (last known EF 45% in 2019), diabetes, hypertension, and hyperlipidemia who presents from [facility] ED after being [facility] [...] [facility] in [place], [place] and was subsequently transferred to [facility] ED for further management. Upon initial presentation to [facility] ED: The patient was noted to [...] reportedly 40 mg PO) and transferred to [facility] for management of presumed acute on chronic HFrEF and CLEM. Upon direct admission to [facility]: The patient was noted to be afebrile [...] history: Reports living in an apartment in [place], [place] Reports his father as a result [...] diabetes, hypertension, and hyperlipidemia who presents from [facility] ED after [facility] for one month of progressively worsening shortness of breath and associated chest painoccurring both at rest and on exertion. The patient was reassuringly afebrile and hemodynamically stable upon transfer to [facility]. Interestingly, initial exam did not demonstrate marked [...] troponin changes. Regarding the patient's stage III CLME, his creatinine is reassuringly improving with diuresis. [...] More than 30 minutes were spent in [id number] contact with patient and with arranging discharge [...] have to pay my rent, get two roll slicing machine tender's checks - one for rent and one [...] a catheter. Has daily auditory hallucinations of [place] that he has lived with for decades. No SI/HI. Diagnoses: schizophrenia dx 1996 Current treatment: zyprexa 15mg QHS Past hospitalizations: never Suicide attempts: not really - years ago he came close, but doesn't elaborate Past psychiatric medications: did not assess Substance Use History/Treatment: no alcohol, cigarettes, marijuana, or other substances Social History: Lives in an apartment by himself in [place]. No family in the area. Only support is his mental health agency. [facility] - Randa Daniels (manager rn case). Asa Deal is his provider. Problem List: [...] Units 7,500 Units Subcutaneous Q8H [facility] Kendy Montes MD 7,500 Units at 01/26/23 [...] rate, and normal rhythm Language: fluent in upper sorbian Mood: fine Affect: blunted and mood-congruent Thought [...] wbc, hgb, hct plt Recent Labs 01/27/23 034 WBC 8.2 HGB 10.6* HCT 31.5* Last 3 wbc, hgb, hct plt Recent Labs 01/27/2334801/26/2331001/25/23 0406 WBC 8.2 8.4 8.2 HGB 10.6* [...] check on him, or see if his manager rn case willcheck in on him tomorrow Please page psychiatry with additional questions Patient on IEA Status? IEA: NO, patient is not on IEA and does not have any psychiatric contraindication to discharge at the time of this assessment. Recommendations were communicated to primary steam shovel oiler Kendy Montes MD. Maritza Awan MD Psychiatry, [...] [] Minimal - [] Minimal [] Straightforward [id number] [] Low [] Low [] Low [] Low 31177 [] Moderate [x] Moderate [] Moderate [] Moderate 70797 [x] High [] High [x] High [x] High 53525 Final Coding Determination: High Associated attestation - [...] CM). Keon Park MD Psychiatry Consultation Pager: [phone] * Plan of Care - Adrienne Calderon [...] diabetes, hypertension, and hyperlipidemia who presents from [facility] after being [facility] [...] 4, Mg > 1 Telemetry #Stage III LCEM (last known baseline was September 2022 with [...] to: discuss discharge planning needs. provide the [facility], Office of Care Management letter from the Acting Manager pertaining to rehab referrals. provide a letter describing our affiliations within the [facility] and educate about their right to choose where referrals are sent. provide a list of Home Health Agencies / Durable Medical Equipment vendors which serve their preferred geographic area. provided patient with [facility] Star Quality Rating handout. They have requested referrals to: [facility]. [address] [place] [id number] Note routed to a Supervisor Special Effects who will communicate referrals to facilities and [...] completed Intervention: Prevent Skin Injury Flowsheets (Taken 01/25/2023199) Body Position: position changed independently Intervention: Prevent [...] from the original note were not included. [facility] [address] [address] CORONARY ANGIOGRAM AND PERCUTANEOUS CORONARY INTERVENTION REPORT Patient: Miguel Sanchez : 1955 MR number: [id number] Date of Service: 01/22/2023 Supervisor Cook House: Layton Morris MD Fellow: Mario Alberto Glasgow MD INDICATION: Miguel Sanchez is a 67 y.o. male with PMH significant for HFrEF (last known EF 45% in 2019), diabetes, hypertension, and hyperlipidemia who presents from [facility] after being [facility] [...] goes to the bank and gets a cook cashier food prep's check and pays it. CM tried to call the bank and the customer needs to be present for them to release any funds. I tried to call the [employer] [facility]- but they were closed. CM also tried to call his manager rn case Randa to see if she could help. Left message for her to call back. Will put in [employer] consult to meet with him on Wednesday to follow up with the [employer] To see if theywould be able [...] Recommendations Outpatient Agency/Support Group Needs: Other [facility]: Randa Carlos at [phone] (manager rn case) Transportation: Medicaid transport- will need 24 hours [...] will need 24 hour notice to contact [place] t ransportation services prior to discharge. Social [...] 1.5 in 09/2022). The etiology of his CELM is unclear given no recent Cr but [...] Coon MD Urology PGY-2 Daytime Consult Pager #[phone] * Initial Assessments - Darryl Rodriguez RN - 01/19/2023 4:57 PM EDT Office of Care Management Initial Assessment Darryl Rodriguez RN reviewed record and discussed patient with Care Team. Source of Information: Team, bedside nurse, medical record, and Patient, Chart Review. Introduced self/reviewed role; services accepted. Admitted From: Transfer from another hospital Location: [facility] Reason for Hospitalization: Heart problems and [...] 180 days) Any patient receiving care in [place] must abide by [place] law. The hierarchy [...] (i) The agent with financial power of consumer attorney or a conservator appointed in accordance [...] DME: none Home Address confirmed as: [address] [facility] [address] Social & Family Supports: All names listed below confirmed with patient as current and correct Extended Emergency Contact Information Primary Emergency Contact: Mony Abraham Mobile Relation: Sibling Current Care Provided by: self Provides Primary Care For: no one, unable/limited ability to care for self Caregiver if needed: none Quality of Family relationships: non-existent Community Resources being provided currently: outpatient psychiatric care ([facility]) Behavioral Health History: Schizophrenia unspecified; MMD recurrent unspecified; on Olanzapine 15mgQD per Miroslava Anguiano CM at [facility] Substance Use/Abuse confirmed: denies all [...] Yes ; Prescription Coverage: Yes Preferred Pharmacy: [id number] [address] [place] Status: Patient is a : No Primary [...] 7:38 AM EDT Hypertension-Nephrology Consultation Miguel Sanchez [id number] 1955 ID: Miguel Sanchez is 67 y.o. [...] be repeated again. - Would recommend consulting/[facility] for help with obstruction as he [...] labs. This case was discussed with staff hazardous material technician Dr. Morrow and the patient's primary team. Please contact me at phone: [phone] or pager: [phone] with any questions. Deonte Lugo MD Nephrology [...] 2:20 PM EDT [place] [address] Austin Simon MD [facility] [place] [address] 04/11/2024 11:20 AM EDT Office Visit Dermatology at [facility] [address] [place] [address] Terri Pimentel MD [facility] [address] [place] [address] [phone] (work) Scheduled Referrals Name Type Priority Associated Diagnoses [...] 3:23 PM EDT HIV SCREEN, 4TH GENERATION ([facility]/CGP/APD/NLH) Routine 01/20/2023 3:23 PM EDT HEPATITIS B [...] CARE TEST O RDERABLES Performing Organization Address [facility] Co de Phone Number [facility] [address] * POCT Glucose (01/27/2023 7:58 AM EDT) Glucose, POC 173 65 - 199 mg/dL [facility] Comment: Supplemental ranges: <140 mg/dL before meals <180 mg/dL all other times of the day Blood 01/27/2023 7:58 AM EDT 01/27/2023 7:58 AM EDT Mendel Luna MD POINT OF CARE TEST O RDERABLES Performing Organization Address City/[facility]/ZIP Co de Phone Number [facility] [address] * (ABNORMAL) Differential, Automated (01/27/2023 3:49 AM EDT) Neutrophil % 75.3 % [facility] Neutrophil Absolute 6.21(H) 1.70 - 6.10 x10(3)/mc L [facility] Lymph % 12.1 % [facility] Lymphocytes Abs 1.0 0.9 - 3.2 x10(3)/mc L [facility] Monocyte % 8.6 % [facility] Monocyte Abs 0.7 0.3 - 0.9 x10(3)/mc L [facility] Eos % 2.9 % [facility] Eosinophils Abs 0.2 0.0 - 0.4 x10(3)/mc L [facility] Basophil % 0.7 % [facility] Baso Absolute 0.1 [...] Absolute 0.03 0.00 - 0.04 x10(3)/mc L [facility] Blood 01/27/2023 3:49 AM EDT 01/27/2023 4:08 AM EDT Narrative Resulting Agency Comment Spec In Lab Kyle Mckeon MD HEMATOLOGY ORDERABLE S [facility] [address] * (ABNORMAL) Hemogram (01/27/2023 3:49 AM EDT) White Blood Cell 8.2 4.0 - 9.5 x10(3)/mc L [facility] Red Blood Cell 3.45(L) 4.58 - 5.54 x10(6)/mc L [facility] Platelet 163 145 - 357 x10(3)/mc L [facility] RDW Standard Deviation 42.7 36.0 - 45.0 fL [facility] RDW coefficient of variation 13.0 11.4 - 13.8 % [facility] Mean Platelet Volume 12.8 7.6 - 12.9 fL [facility] NRBC% auto 0.0 % [facility] ITAL [facility] NRBC Absolute 0.000 0.000 - 0.000 x10(3)/mc L [facility] Blood 01/27/2023 3:49 AM EDT 01/27/2023 4:08 AM EDT Narrative Resulting Agency Comment Spec In Lab Kyle Mckeon MD HEMATOLOGY ORDERABLE S Performing Organization Address City/[facility]/ZIP Co de Phone Number [facility] [address] * (ABNORMAL) Phosphorus (01/27/2023 3:49 AM EDT) Phosphorus 5.0(H) 2.5 - 4.5 mg/dL [facility] Blood 01/27/2023 3:49 AM EDT 01/27/2023 4:08 AM EDT Narrative Resulting Agency Comment Spec In Lab Tanya Seaman MD CHEMISTRY ORDERABL ES Performing Organization Address [facility] Co de Phone Number [facility] [address] * Magnesium (01/27/2023 3:49 AM EDT) Magnesium 0.97 0.69 - 1.07 mmol/L [facility] Blood 01/27/2023 3:49 AM EDT 01/27/2023 4:08 AM EDT Narrative Resulting Agency Comment Spec In Lab Tanya Seaman MD CHEMISTRY ORDERABL ES Performing Organization Address [facility] Co de Phone Number [facility] [address] * (ABNORMAL) Basic Metabolic Panel (non-fasting) (01/27/2023 3:49 AM EDT) Glucose 142 65 - 199 mg/dL [facility] ORDERABL ES [facility] [address] * (ABNORMAL) POCT Glucose (01/26/2023 8:20 PM EDT) Glucose, POC 202(H) 65 - 199 mg/dL [facility] Comment: Supplemental ranges: <140 mg/dL before meals <180 mg/dL all other times of the day Blood 01/26/2023 8:20 PM EDT 01/26/2023 8:20 PM EDT Mendel Luna MD POINT OF CARE TEST O RDERABLES Performing Organization Address City/[facility] Co de Phone Number [facility] [address] * POCT Glucose (01/26/2023 4:04 PM EDT) Glucose, POC 152 65 - 199 mg/dL [facility] Comment: Supplemental ranges: <140 mg/dL before meals <180 mg/dL all other times of the day Blood 01/26/2023 4:04 PM EDT 01/26/2023 4:04 PM EDT Mendel Luna MD POINT OF CARE TEST O RDERABLES Performing Organization Address [facility] Co de Phone Number [facility] [address] * POCT Glucose (01/26/2023 11:42 AM EDT) Glucose, POC 175 65 - 199 mg/dL [facility] Comment: Supplemental ranges: <140 mg/dL before meals <180 mg/dL all other times of the day Blood 01/26/2023 11:4 2 AM EDT 01/26/2023 11:42 AM EDT Mendel Luna MD POINT OF CARE TEST O RDERABLES Performing Organization Address City/[facility] Co de Phone Number [facility] [place] [address] * POCT Glucose (01/26/2023 7:51 AM EDT) Glucose, POC 137 65 - 199 mg/dL [facility] Comment: Supplemental ranges: <140 mg/dL before meals <180 mg/dL all other times of the day Blood 01/26/2023 7:51 AM EDT 01/26/2023 7:51 AM EDT Mendel Luna MD POINT OF CARE TEST O RDERABLES Performing Organization Address City/[facility]/[place] [address] * Differential, Automated (01/26/2023 3:11 AM EDT) Neutrophil % 71.1 % [facility] Neutrophil Absolute 5.94 1.70 - 6.10 x10(3)/[facility] LAB[facility] Lymph % 15.3 % [facility] Lymphocytes Abs 1.3 0.9 - 3.2 x10(3)/[facility] LAB[facility] Monocyte % 8.9 % [facility]AL [facility] Monocyte Abs 0.7 0.3 - 0.9 x10(3)/[facility] Eos % 3.6 % [facility] Eosinophils Abs 0.3 0.0 - 0.4 x10(3)/[facility] Basophil % 0.7 % [facility] Baso Absolute 0.1 0.0 - 0.1 x10(3)/[facility] Immature Gran % 0.40 % [facility] Comment: Immature granulocytes(IG's)percentage and absolute count will include metamyelocytes, myelocytes, and promyelocytes. Blood smears from CBCs yielding IG's will be scanned manually for concordance. If this scan disagrees with the automated IG or if promyelocytes are noted, a manual differential will be performed. Immature Gran Absolute 0.03 0.00 - 0.04 x10(3)/[facility] Blood 01/26/2023 3:11 AM EDT 01/26/2023 3:40 AM EDT Narrative Resulting Agency Comment Spec In Lab Kyle Mckeon MD HEMATOLOGY ORDERABLE S Performing Organization Address City/[facility]/ZIP Co de Phone Number [facility] [address] * (ABNORMAL) Hemogram (01/26/2023 3:11 AM EDT) White Blood Cell 8.4 4.0 - 9.5 x10(3)/mc L [facility] Red Blood Cell 3.25(L) 4.58 - 5.54 x10(6)/mc L [facility] Hemoglobin 10.2(L) 13.7 - 16.5 g/dL [facility] Hematocrit 29.8(L) 40.5 - 48.5 % [facility] Mean Cell Volume 91.7 82.9 - 93.1 fL [facility] Mean Cell Hemoglobin 31.4 27.5 - 32.1 pg [facility] Mean Cell Hemoglobin Concentration 34.2 32.0 - 35.7 g/dL [facility] Platelet 161 145 - 357 x10(3)/mc L [facility] RDW Standard Deviation 43.0 36.0 - 45.0 fL [facility] RDW coefficient of variation 13.0 11.4 - 13.8 % [facility] Mean Platelet Volume 13.0(H) 7.6 - 12.9 fL [facility] NRBC% auto 0.0 % [facility] IT[facility] NRBC Absolute 0.000 0.000 - 0.000 x10(3)/mc L [facility] Blood 01/26/2023 3:11 AM EDT 01/26/2023 3:40 AM EDT Narrative Resulting Agency Comment Spec In Lab Kyle Mckeon MD HEMATOLOGY ORDERABLE S Performing Organization Address City/[facility]/ZIP Co de Phone Number [facility] [address] * (ABNORMAL) Phosphorus (01/26/2023 3:11 AM EDT) Phosphorus 4.6(H) 2.5 - 4.5 mg/dL [facility] Blood 01/26/2023 3:11 AM EDT 01/26/2023 3:39 AM EDT Narrative Resulting Agency Comment Spec In Lab Tanya Seaman MD CHEMISTRY ORDERABL ES Performing Organization Address City/[facility]/ZIP Co de Phone Number [facility] [address] * Magnesium (01/26/2023 3:11 AM EDT) Magnesium 0.97 0.69 - 1.07 mmol/L [facility] Blood 01/26/2023 3:11 AM EDT 01/26/2023 3:39 AM EDT Narrative Resulting Agency Comment Spec In Lab Tanya Seaman MD CHEMISTRY ORDERABL ES [facility] [place] [address] * (ABNORMAL) Basic Metabolic Panel (non-fasting) (01/26/2023 [...] MD CHEMISTRY ORDERABL ES Performing Organization Address [facility] Co de Phone Number [facility] [address] * POCT Glucose (01/25/2023 9:24 PM EDT) Glucose, POC 181 65 - 199 mg/dL [facility] Comment: Supplemental ranges: <140 mg/dL before meals <180 mg/dL all other times of the day Blood 01/25/2023 9:24 PM EDT 01/25/2023 9:24 PM EDT Mendel Luna MD POINT OF CARE TEST O RDERABLES Performing Organization Address [facility] Co de Phone Number [facility] [address] * POCT Glucose (01/25/2023 4:46 PM EDT) Glucose, POC 153 65 - 199 mg/dL [facility] Comment: Supplemental ranges: <140 mg/dL before meals <180 mg/dL all other times of the day Blood 01/25/2023 4:46 PM EDT 01/25/2023 4:46 PM EDT Mendel Luna MD POINT OF CARE TEST O RDERABLES Performing Organization Address [facility] Co de Phone Number [facility] [address] * US Retroperitoneal Complete (01/25/2023 3:50 PM [...] who have questions, please contact the health farm or ranch animal caretaker that requested your imaging first. ?Elsie Garza, [facility] Apprentice Photographer Electronically Signed Final Report ?? 01/25/2023 04:10 pm Narrative 01/25/2023 4:11 PM EDT Renal ? (Signed Final 01/25/2023 04:10 pm) PATIENT INFO: ID #: ? [id number] ?: ??[birth year] (67 yrs)(M) Name: ? MIGUEL SANCHEZ ? Visit Date: 01/25/2023 03:47 pm PERFORMED BY: Attending: ?Kayla OTT, Elsie Conley Performed By: ? Paola Pritchard RDMS Referred By: ?MENDEL LUNA Location: ? [place] SERVICE(S) PROVIDED: URETRO - Retroperitoneal Complete - [id number] ? [id number] INDICATIONS: 67yo male with CLEM, repeat U/S [...] 01/25/2023 04:10 pm) PATIENT INFO: ID #: [id number] : [birth year] (67 yrs)(M) Name: MIGUEL SANCHEZ Visit Date: 01/25/2023 03:47 pm PERFORMED BY: Attending: Elsie Garza MD Performed By: Paola Pritchard RDMS Referred By: MENDEL LUNA Location: [place] SERVICE(S) PROVIDED: URETRO - Retroperitoneal Complete - [id number] INDICATIONS: 67yo male with CLEM, repeat U/S [...] who have questions, please contact the health farm or ranch animal caretaker that requested your imaging first. Elsie Garza, E Apprentice Photographer Electronically Signed Final Report 01/25/2023 04:10 pm [...] CARE TEST O RDERABLES Performing Organization Address [facility] Co de Phone Number [facility] [address] * POCT Glucose (01/25/2023 7:44 AM EDT) Glucose, POC 155 65 - 199 mg/dL [facility] Comment: Supplemental ranges: <140 mg/dL before meals <180 mg/dL all other times of the day Blood 01/25/2023 7:44 AM EDT 01/25/2023 7:44 AM EDT Mendel Luna MD POINT OF CARE TEST O RDERABLES Performing Organization Address [facility] Co de Phone Number [facility] [address] * Differential, Automated (01/25/2023 4:06 AM EDT) Neutrophil % 72.7 % [facility] Neutrophil Absolute 5.96 1.70 - 6.10 x10(3)/[facility] LAB[facility]AT[facility] Lymph % 14.7 % [facility] Lymphocytes Abs 1.2 0.9 - 3.2 x10(3)/[facility] LABOR[facility] Monocyte % 8.2 % [facility] LABORAT[facility] Monocyte Abs 0.7 0.3 - 0.9 x10(3)/[facility] Eos % 3.5 % [facility] Eosinophils Abs 0.3 0.0 - 0.4 x10(3)/[facility] LABOR[facility] Basophil % 0.7 % [facility] ITAL LABORATORY Baso Absolute 0.1 0.0 - 0.1 x10(3)/[facility] LAB[facility] Immature Gran % 0.20 % [facility] Comment: Immature granulocytes(IG's)percentage and absolute count will include metamyelocytes, myelocytes, and promyelocytes. Blood smears from CBCs yielding IG's will be scanned manually for concordance. If this scan disagrees with the automated IG or if promyelocytes are noted, a manual differential will be performed. Immature Gran Absolute 0.02 0.00 - 0.04 x10(3)/[facility] LAB[facility] Blood 01/25/2023 4:06 AM EDT 01/25/2023 4:17 AM EDT Narrative Resulting Agency Comment Spec In Lab Kyle Mckeon MD HEMATOLOGY ORDERABLE S [facility] [address] * (ABNORMAL) Hemogram (01/25/2023 4:06 AM EDT) [...] of variation 12.8 11.4 - 13.8 % [facility] Mean Platelet Volume 12.6 7.6 - 12.9 fL [facility] NRBC% auto 0.0 % [facility] ITAL LABOR[facility] NRBC Absolute 0.000 0.000 - 0.000 x10(3)/mc L [facility] Blood 01/25/2023 4:06 AM EDT 01/25/2023 4:17 AM EDT Narrative Resulting Agency Comment Spec In Lab Kyle Mckeon MD HEMATOLOGY ORDERABLE S Performing Organization Address [facility] Co de Phone Number [facility] [address] * (ABNORMAL) Phosphorus (01/25/2023 4:06 AM EDT) Phosphorus 4.9(H) 2.5 - 4.5 mg/dL [facility] Blood 01/25/2023 4:06 AM EDT 01/25/2023 4:17 AM EDT Narrative Resulting Agency Comment Spec In Lab Tanya Seaman MD CHEMISTRY ORDERABL ES Performing Organization Address [facility] Co de Phone Number [facility] [address] * Magnesium (01/25/2023 4:06 AM EDT) Magnesium 1.00 0.69 - 1.07 mmol/L [facility] Blood 01/25/2023 4:06 AM EDT 01/25/2023 4:17 AM EDT Narrative Resulting Agency Comment Spec In Lab Tanya Seaman MD CHEMISTRY ORDERABL ES Performing Organization Address [facility] Co de Phone Number [facility] [address] * (ABNORMAL) Basic Metabolic Panel (non-fasting) (01/25/2023 [...] ORDERABL ES [facility] [address] * POCT Glucose (01/24/2023 10:12 PM EDT) Glucose, POC 175 65 - 199 mg/dL [facility] Comment: Supplemental ranges: <140 mg/dL before meals <180 mg/dL all other times of the day Blood 01/24/2023 10:1 2 PM EDT 01/24/2023 10:12 PM EDT Mendel Luna MD POINT OF CARE TEST O RDERABLES [facility] [address] * POCT Glucose (01/24/2023 4:41 PM EDT) Glucose, POC 157 65 - 199 mg/dL [facility] Comment: Supplemental ranges: <140 mg/dL before meals <180 mg/dL all other times of the day Blood 01/24/2023 4:41 PM EDT 01/24/2023 4:41 PM EDT Mendel Luna MD POINT OF CARE TEST O BERNARDINOERAMARCY Performing Organization Address [facility] Co de Phone Number [facility] [address] * POCT Glucose (01/24/2023 12:10 PM EDT) Glucose, POC 177 65 - 199 mg/dL [facility] Comment: Supplemental ranges: <140 mg/dL before meals <180 mg/dL all other times of the day Blood 01/24/2023 12:1 0 PM EDT 01/24/2023 12:10 PM EDT Mendel Luna MD POINT OF CARE TEST O RDERAMARCY Performing Organization Address [facility] Co de Phone Number [facility] [address] * POCT Glucose (01/24/2023 7:51 AM EDT) Glucose, POC 175 65 - 199 mg/dL [facility] Comment: Supplemental ranges: <140 mg/dL before meals <180 mg/dL all other times of the day Blood 01/24/2023 7:51 AM EDT 01/24/2023 7:51 AM EDT Mendel Luna MD POINT OF CARE TEST O RDERABLES Performing Organization Address [facility] Co de Phone Number [facility] [place] [address] * (ABNORMAL) Phosphorus (01/24/2023 2:56 AM EDT) Phosphorus 5.0(H) 2.5 - 4.5 mg/dL [facility] Blood 01/24/2023 2:56 AM EDT 01/24/2023 3:06 AM EDT Narrative Resulting Agency Comment Spec In Lab Tanya Seaman MD CHEMISTRY ORDERABL ES Performing Organization Address [facility] Co de Phone Number [facility] [address] * Magnesium (01/24/2023 2:56 AM EDT) Magnesium 0.94 0.69 - 1.07 mmol/L [facility] Blood 01/24/2023 2:56 AM EDT 01/24/2023 3:06 AM EDT Narrative Resulting Agency Comment Spec In Lab Tanya Seaman MD CHEMISTRY ORDERABL ES Performing Organization Address [facility] de Phone Number [facility] [address] * (ABNORMAL) Basic Metabolic Panel (non-fasting) (01/24/2023 2:56 AM EDT) Glucose 131 65 - 199 mg/dL [facility] Comment:Diabetes: >=200 mg/d L plus symptoms Blood Urea Nitrogen 80(H) 10 - 20 mg/dL [facility] Creatinine 5.46(H) 0.80 - 1.50 mg/dL [facility] Sodium 139 135 - 145 mmol/L [facility] Potassium 4.5 3.5 - 5.0 [...] ORDERABL ES [facility] [address] * POCT Glucose (01/23/2023 9:16 PM EDT) Glucose, POC 150 65 - 199 mg/dL [facility] Comment: Supplemental ranges: <140 mg/dL before meals <180 mg/dL all other times of the day Blood 01/23/2023 9:16 PM EDT 01/23/2023 9:16 PM EDT Mendel Luna MD POINT OF CARE TEST O RDERABLES [facility] [address] * (ABNORMAL) POCT Glucose (01/23/2023 3:13 PM EDT) Glucose, POC 246(H) 65 - 199 mg/dL [facility] Comment: Supplemental ranges: <140 mg/dL before meals <180 mg/dL all other times of the day Blood 01/23/2023 3:13 PM EDT 01/23/2023 3:13 PM EDT Mendel Lnua MD POINT OF CARE TEST O TESSA Performing Organization Address City/[facility] Co de Phone Number [facility] [address] * POCT Glucose (01/23/2023 11:06 AM EDT) Glucose, POC 163 65 - 199 mg/dL [facility] Comment: Supplemental ranges: <140 mg/dL before meals <180 mg/dL all other times of the day Blood 01/23/2023 11:0 6 AM EDT 01/23/2023 11:06 AM EDT Mendel Luna MD POINT OF CARE TEST O TESSA Performing Organization Address [facility] Co de Phone Number [facility] [address] * POCT Glucose (01/23/2023 7:46 AM EDT) Glucose, POC 165 65 - 199 mg/dL [facility] Comment: Supplemental ranges: <140 mg/dL before meals <180 mg/dL all other times of the day Blood 01/23/2023 7:46 AM EDT 01/23/2023 7:46 AM EDT Mendel Luna MD POINT OF CARE TEST O TESSA Performing Organization Address [facility] Co de Phone Number [facility] [address] * Differential, Automated (01/23/2023 2:53 AM EDT) Neutrophil % 72.0 % [facility] Neutrophil Absolute 5.86 1.70 - 6.10 x10(3)/mcL [facility] Lymph % 13.8 % [facility] Lymphocytes Abs 1.1 0.9 - 3.2 x10(3)/[facility] LABOR[facility] Monocyte % 9.2 % [facility] Monocyte Abs 0.8 0.3 - 0.9 x10(3)/[facility] Eos % 4.1 % [facility] Eosinophils Abs 0.3 0.0 - 0.4 x10(3)/[facility] Basophil % 0.7 % [facility] Baso Absolute 0.1 0.0 - 0.1 x10(3)/[facility] Immature Gran % 0.20 % [facility] Comment: Immature granulocytes(IG's)percentage and absolute count will include metamyelocytes, myelocytes, and promyelocytes. Blood smears from CBCs yielding IG's will be scanned manually for concordance. If this scan disagrees with the automated IG or if promyelocytes are noted, a manual differential will be performed. Immature Gran Absolute 0.02 0.00 - 0.04 x10(3)/[facility] Blood 01/23/2023 2:53 AM EDT 01/23/2023 3:05 AM EDT Narrative Resulting Agency Comment Spec In Lab Kyle Mckeon MD HEMATOLOGY ORDERABLE S [facility] [address] * (ABNORMAL) Hemogram (01/23/2023 2:53 AM EDT) [...] Cell Hemoglobin 30.5 27.5 - 32.1 pg [facility] Mean Cell Hemoglobin Concentration 33.9 32.0 - 35.7 g/dL [facility] Platelet 182 145 - 357 x10(3)/mc L [facility] RDW Standard Deviation 42.3 36.0 - 45.0 fL [facility] RDW coefficient of variation 13.0 11.4 - 13.8 % [facility] Mean Platelet Volume 12.1 7.6 - 12.9 fL [facility] NRBC% auto 0.0 % [facility] NRBC Absolute 0.000 0.000 - 0.000 x10(3)/mc L [facility] Blood 01/23/2023 2:53 AM EDT 01/23/2023 3:05 AM EDT Narrative Resulting Agency Comment Spec In Lab Klye Mckeon MD HEMATOLOGY ORDERABLE S Performing Organization Address [facility] de Phone Number [facility] [address] * (ABNORMAL) Phosphorus (01/23/2023 2:53 AM EDT) Phosphorus 5.8(H) 2.5 - 4.5 mg/dL [facility] Blood 01/23/2023 2:53 AM EDT 01/23/2023 3:05 AM EDT Narrative Resulting Agency Comment Spec In Lab Tanya Seaman MD CHEMISTRY ORDERABL ES Performing Organization Address [facility] Co de Phone Number [facility] [address] * Magnesium (01/23/2023 2:53 AM EDT) Magnesium 0.96 0.69 - 1.07 mmol/L [facility] Blood 01/23/2023 2:53 AM EDT 01/23/2023 3:05 AM EDT Narrative Resulting Agency Comment Spec In Lab Tanya Seaman MD CHEMISTRY ORDERABL ES Performing Organization Address [facility] Co de Phone Number [facility] [address] * (ABNORMAL) Basic Metabolic Panel (non-fasting) (01/23/2023 2:53 AM EDT) Glucose 131 65 - 199 mg/dL [facility] Comment:Diabetes: >=200 mg/d L plus symptoms Blood Urea Nitrogen 81(H) 10 - 20 mg/dL [facility] Creatinine 5.47(H) 0.80 - 1.50 mg/dL [facility] ORDERABL ES [facility] [address] * (ABNORMAL) POCT Glucose (01/22/2023 7:28 PM EDT) Glucose, POC 237(H) 65 - 199 mg/dL [facility] Comment: Supplemental ranges: <140 mg/dL before meals <180 mg/dL all other times of the day Blood 01/22/2023 7:28 PM EDT 01/22/2023 7:28 PM EDT Mendel Luna MD POINT OF CARE TEST O RDERAMARCY Performing Organization Address [facility] de Phone Number [facility] [place] [address] * POCT Glucose (01/22/2023 5:30 PM EDT) Glucose, POC 130 65 - 199 mg/dL [facility] Comment: Supplemental ranges: <140 mg/dL before meals <180 mg/dL all other times of the day Blood 01/22/2023 5:30 PM EDT 01/22/2023 5:30 PM EDT Mendel Luna MD POINT OF CARE TEST O TESSA Performing Organization Address [facility] de Phone Number [facility] [place] [address] * CARDIAC CATHETERIZATION (01/22/2023 5:10 PM EDT) Anatomical Region Laterality Modality Other Narrative 01/22/2023 5:07 PM EDT ?[facility] ? Cardiac Catheterization/Intervention Report ? Patient Name: Daniel Miguel ? Procedure Date: 01/22/2023 ? A #: [id number] ? Primary Physician: Morris, Layton P ? Case #: [id number] ? File Name: [id number] ? Catheterization Order Number: [id number] ? [facility] ? Final Report [place], [place] ? Patient Name: ? Miguel Cook ? ID#: ?[id number] ? : ?1955 ? Procedure Date: ? January 22, 2023 ?Case #: ? [id number] ? Room: ? 5 ? Case Physician: ? Layton Morris M.D. ?Start: ?16:35 ?Fellow: ? Max Jono Glasgow M.D. ? Admission: ??01/18/2023 ? Referring [...] procedure was Urgent. The indication for ?the manager cath lab visit is cardiomyopathy. Chest pain symptom assessment [...] Procedure Note Layton Morris MD - 01/22/2023 [facility] Cardiac Catheterization/Intervention Report Patient Name: Miguel Sanchez Procedure Date: 01/22/2023 A #: [id number] Primary Physician: Layton Morris Case #: [id number] File Name: [id number] Catheterization Order Number: [id number] [facility] FinalReport [place], [place] Patient Name: Miguel Sanchez ID#:[id number] :1955 Procedure Date: January 22, 2023 Case [...] patient was designated as ASA Class III. [facility]: Mildly Frail. Diagnostic Tests: Medications Prior to Procedure: Angiotensin Converting Enzyme Inhibitor, Aspirin, Beta Blockerand Statin. Indications for Diagnostic Cath: The priority of the diagnostic procedure was Urgent. The indicationfor the manager cath lab visit is cardiomyopathy. Chest pain symptom assessmentwas: [...] * POCT Glucose (01/22/2023 12:35 PM EDT) [facility] Signature Glucose, POC 165 65 - 199 mg/dL [facility] Comment: Supplemental ranges: <140 mg/dL before meals <180 mg/dL all other times of the day Blood 01/22/2023 12:3 5 PM EDT 01/22/2023 12:35 PM EDT Mendel Luna MD POINT OF CARE TEST O RDERAMARCY Performing Organization Address City/[facility]/ZIP Co de Phone Number [facility] [place] [address] * POCT Glucose (01/22/2023 7:52 AM EDT) Glucose, POC 145 65 - 199 mg/dL [facility] Comment: Supplemental ranges: <140 mg/dL before meals <180 mg/dL all other times of the day Blood 01/22/2023 7:52 AM EDT 01/22/2023 7:52 AM EDT Chris Lim MD POINT OF CARE TEST O TESSA [facility] [place] [address] * Differential, Automated (01/22/2023 2:42 AM EDT) Neutrophil % 73.7 % [facility] Neutrophil Absolute 6.10 1.70 - 6.10 x10(3)/[facility] LAB[facility] Lymph % 12.5 % [facility] Lymphocytes Abs 1.0 0.9 - 3.2 x10(3)/[facility] Monocyte % 8.8 % [facility] Monocyte Abs 0.7 0.3 - 0.9 x10(3)/[facility] Eos % 4.1 % [facility] Eosinophils Abs 0.3 0.0 - 0.4 x10(3)/[facility] Basophil % 0.7 % [facility] Baso Absolute 0.1 0.0 - 0.1 x10(3)/[facility] Immature Gran % 0.20 % [facility] Comment: Immature granulocytes(IG's)percentage and absolute count will include metamyelocytes, myelocytes, and promyelocytes. Blood smears from CBCs yielding IG's will be scanned manually for concordance. If this scan disagrees with the automated IG or if promyelocytes are noted, a manual differential will be performed. Immature Gran Absolute 0.02 0.00 - 0.04 x10(3)/[facility] Blood 01/22/2023 2:42 AM EDT 01/22/2023 3:03 AM EDT Narrative Resulting Agency Comment Spec In Lab Kyle Mckeon MD HEMATOLOGY ORDERABLE S Performing Organization Address City/State/[facility] Co de Phone Number [facility] [address] * (ABNORMAL) Hemogram (01/22/2023 2:42 AM EDT) White Blood Cell 8.3 4.0 - 9.5 x10(3)/mc L [facility] Red Blood Cell 3.41(L) 4.58 - 5.54 x10(6)/ L [facility] Hemoglobin 10.3(L) 13.7 - 16.5 g/dL [facility] Hematocrit 30.8(L) 40.5 - 48.5 % [facility] Mean Cell Volume 90.3 82.9 - 93.1 fL [facility] Mean Cell Hemoglobin 30.2 27.5 - 32.1 pg [facility] Mean Cell Hemoglobin Concentration 33.4 32.0 - 35.7 g/dL [facility] Platelet 183 145 - 357 x10(3)/mc L [facility] RDW Standard Deviation 42.0 36.0 - 45.0 fL [facility] RDW coefficient of variation 12.9 11.4 - 13.8 % [facility] Mean Platelet Volume 12.1 7.6 - 12.9 fL [facility] NRBC% auto 0.0 % [facility] NRBC Absolute 0.000 0.000 - 0.000 x10(3)/mc L [facility] Blood 01/22/2023 2:42 AM EDT 01/22/2023 3:03 AM EDT Narrative Resulting Agency Comment Spec In Lab Kyle Mckeon MD HEMATOLOGY ORDERABLE S Performing Organization Address City/[facility]/ZIP Co de Phone Number [facility] [place] [address] * (ABNORMAL) Phosphorus (01/22/2023 2:42 AM EDT) Phosphorus 5.8(H) 2.5 - 4.5 mg/dL [facility] Blood 01/22/2023 2:42 AM EDT 01/22/2023 3:03 AM EDT Narrative Resulting Agency Comment Spec In Lab Tanya Seaman MD CHEMISTRY ORDERABL ES Performing Organization Address City/[facility] Co de Phone Number [facility] [address] * Magnesium (01/22/2023 2:42 AM EDT) Magnesium 0.97 0.69 - 1.07 mmol/L [facility] Blood 01/22/2023 2:42 AM EDT 01/22/2023 3:03 AM EDT Narrative Resulting Agency Comment Spec In Lab Tanya Seaman MD CHEMISTRY ORDERABL ES Performing Organization Address [facility] Co de Phone Number [facility] [place] [address] * (ABNORMAL) Basic Metabolic Panel (non-fasting) (01/22/2023 [...] MD CHEMISTRY ORDERABL ES Performing Organization Address [facility] Co de Phone Number [facility] [address] * C3 Complement (01/22/2023 2:42 AM EDT) Complement C3 126 90 - 180 mg/dL [facility] Blood 01/22/2023 2:42 AM EDT 01/22/2023 3:03 AM EDT Narrative Resulting Agency Comment Spec In Lab Chris Lim MD CHEMISTRY ORDERABLES Performing Organization Address [facility] Co de Phone Number [facility] [address] * POCT Glucose (01/21/2023 6:41 PM EDT) Glucose, POC 199 65 - 199 mg/dL [facility] Comment: Supplemental ranges: <140 mg/dL before meals <180 mg/dL all other times of the day Blood 01/21/2023 6:41 PM EDT 01/21/2023 6:41 PM EDT Chris Lim MD POINT OF CARE TEST O RDERABLES Performing Organization Address [facility] Co de Phone Number [facility] [address] * POCT Glucose (01/21/2023 3:57 PM EDT) Glucose, POC 125 65 - 199 mg/dL [facility] Comment: Supplemental ranges: <140 mg/dL before meals <180 mg/dL all other times of the day Blood 01/21/2023 3:57 PM EDT 01/21/2023 3:57 PM EDT Chris Lim MD POINT OF CARE TEST O RDERABLES Performing Organization Address [facility] Co de Phone Number [facility] [address] * (ABNORMAL) POCT Glucose (01/21/2023 11:32 AM EDT) Glucose, POC 249(H) 65 - 199 mg/dL [facility] Comment: Supplemental ranges: <140 mg/dL before meals <180 mg/dL all other times of the day Blood 01/21/2023 11:3 2 AM EDT 01/21/2023 11:32 AM EDT Chris Lim MD POINT OF CARE TEST O TESSA Performing Organization Address City/[facility] Co de Phone Number [facility] [address] * (ABNORMAL) POCT Glucose (01/21/2023 9:38 AM EDT) Glucose, POC 233(H) 65 - 199 mg/dL [facility] Comment: Supplemental ranges: <140 mg/dL before meals <180 mg/dL all other times of the day Blood 01/21/2023 9:38 AM EDT 01/21/2023 9:38 AM EDT Chris Lim MD POINT OF CARE TEST O TESSA Performing Organization Address [facility] Co de Phone Number [facility] [address] * EKG 12 Lead (01/21/2023 8:33 AM EDT) Ventricular rate 74 BPM MUSE SYSTEM Atrial Rate 74 BPM MUSE SYSTEM P-R Interval 180 ms MUSE SYSTEM QRS Duration 126 ms MUSE SYSTEM Q-T Interval 454 ms MUSE SYSTEM QTC Calculated (Bezet) 503 ms MUSE SYSTEM Calculated P [place] 32 degrees MUSE SYSTEM Calculated R [place] -35 degrees MUSE SYSTEM Calculated T [place] 97 degrees MUSE SYSTEM INTERPRETATION Normal sinus rhythm Left axis deviation Non-specific intra-ventricu lar conduction block Nonspecific T wave abnormality Abnormal ECG When compared with ECG of 18-JAN-2023 18:52, No significant change was found Confirmed by fellow Lacey Oliveros ([id number]) on 01/23/2023 10:03:20 AM Confirmed by MD Gonzalez David ([id number]) on 01/24/2023 8:22:03 AM MUSE SYSTEM 01/21/2023 [...] CARE TEST O RDERABLES Performing Organization Address City/[facility]/ZIP Co de Phone Number [facility] [address] * Differential, Automated (01/21/2023 2:42 AM EDT) Neutrophil % 70.7 % [facility] Neutrophil Absolute 5.75 1.70 - 6.10 x10(3)/[facility] Lymph % 14.5 % [facility] Lymphocytes Abs 1.2 0.9 - 3.2 x10(3)/[facility] Monocyte % 9.1 % [facility] Monocyte Abs 0.7 0.3 - 0.9 x10(3)/[facility] Eos % 4.6 % [facility] Eosinophils Abs 0.4 0.0 - 0.4 x10(3)/[facility] Basophil % 0.7 % [facility] Baso Absolute 0.1 0.0 - 0.1 x10(3)/[facility] Immature Gran % 0.40 % [facility] Comment: Immature granulocytes(IG's)percentage and absolute count will include metamyelocytes, myelocytes, and promyelocytes. Blood smears from CBCs yielding IG's will be scanned manually for concordance. If this scan disagrees with the automated IG or if promyelocytes are noted, a manual differential will be performed. Immature Gran Absolute 0.03 0.00 - 0.04 x10(3)/mcL [facility] Blood 01/21/2023 2:42 AM EDT 01/21/2023 2:59 AM EDT Narrative Resulting Agency Comment Spec In Lab Kyle Mckeon MD HEMATOLOGY ORDERABLE S [facility] [address] * (ABNORMAL) Hemogram (01/21/2023 2:42 AM EDT) [...] Platelet Volume 12.3 7.6 - 12.9 fL [facility] NRBC% auto 0.0 % [facility] NRBC Absolute 0.000 0.000 - 0.000 x10(3)/mc L [facility] Blood 01/21/2023 2:42 AM EDT 01/21/2023 2:59 AM EDT Narrative Resulting Agency Comment Spec In Lab Kyle Mckeon MD HEMATOLOGY ORDERABLE S [facility] [address] * (ABNORMAL) Phosphorus (01/21/2023 2:42 AM EDT) Phosphorus 5.3(H) 2.5 - 4.5 mg/dL [facility] Blood 01/21/2023 2:42 AM EDT 01/21/2023 2:58 AM EDT Narrative Resulting Agency Comment Spec In Lab Tanya Seaman MD CHEMISTRY ORDERABL ES Performing Organization Address [facility] Co de Phone Number [facility] [address] * Magnesium (01/21/2023 2:42 AM EDT) Magnesium 0.99 0.69 - 1.07 mmol/L [facility] Blood 01/21/2023 2:42 AM EDT 01/21/2023 2:58 AM EDT Narrative Resulting Agency Comment Spec In Lab Tanya Seaman MD CHEMISTRY ORDERABL ES Performing Organization Address [facility] Co de Phone Number [facility] [address] * (ABNORMAL) Basic Metabolic Panel (non-fasting) (01/21/2023 2:42 AM EDT) Glucose 120 65 - 199 mg/dL [facility] Comment:Diabetes: >=200 mg/d L plus symptoms Blood Urea Nitrogen 72(H) 10 - 20 mg/dL [facility] Creatinine 5.70(H) 0.80 - 1.50 mg/dL [facility] Sodium 140 135 [...] questions. Chloride 100 98 - 107 mmol/L [facility] Carbon Dioxide 20(L) 22 - 31 mmol/L [facility] Anion Gap 20(H) 5 - 15 mmol/L [facility] [...] MD CHEMISTRY ORDERABL ES Performing Organization Address City/[facility]/ZIP Co de Phone Number [facility] [address] * POCT Glucose (01/20/2023 7:45 PM EDT) Glucose, POC 158 65 - 199 mg/dL [facility] Comment: Supplemental ranges: <140 mg/dL before meals <180 mg/dL all other times of the day Blood 01/20/2023 7:45 PM EDT 01/20/2023 7:45 PM EDT Chris Lim MD [place] [address] * POCT Glucose (01/20/2023 4:38 PM EDT) Glucose, POC 96 65 - 199 mg/dL [facility] Comment: Supplemental ranges: <140 mg/dL before meals <180 mg/dL all other times of the day Blood 01/20/2023 4:38 PM EDT 01/20/2023 4:38 PM EDT Chris Lim MD POINT OF CARE TEST O RDERABLES [facility] [address] * POCT Glucose (01/20/2023 4:14 PM EDT) Glucose, POC 101 65 - 199 mg/dL [facility] Comment: Supplemental ranges: <140 mg/dL before meals <180 mg/dL all other times of the day Blood 01/20/2023 4:14 PM EDT 01/20/2023 4:14 PM EDT Chris Lim MD POINT OF CARE TEST O RDERABLES Performing Organization Address [facility] Co de Phone Number [facility] [address] * Hepatitis C Antibody (01/20/2023 3:23 PM EDT) Hepatitis C Antibody Negative Negative [facility] Blood 01/20/2023 3:23 PM EDT 01/20/2023 3:28 PM EDT Narrative Resulting Agency Comment Spec In Lab Austin Sosa MD CHEMISTRY ORDERABLES Performing Organization Address City/[facility] Co de Phone Number [facility] [address] * Hepatitis B Core Antibody, Total (01/20/2023 3:23 PM EDT) Hepatitis B Core Antibody Negative Negative [facility] Blood 01/20/2023 3:23 PM EDT 01/20/2023 3:28 PM EDT Narrative Resulting Agency Comment Spec In Lab Chris Lim MD CHEMISTRY ORDERABLES Performing Organization Address City/[facility]/ZIP Co de Phone Number [facility] [address] * Hepatitis B Surface Antibody (01/20/2023 3:23 PM EDT) Hepatitis B Surface Antibody, Quantitative <3.5 IU/L [facility] Comment: HepB Surface Ab Quant: Unvaccinated: < 8.5 IU/L Vaccinated: >= 11.5 IU/L Hepatitis B Surface Antibody Negative [facility] Comment: Patient is presumed to be not vaccinated or immune to HBV infection. Expected Results: Vaccinated: Positive Unvaccinated: Negative Blood 01/20/2023 3:23 PM EDT 01/20/2023 3:28 PM EDT Narrative Resulting Agency Comment Spec In Lab Chris Lim MD CHEMISTRY ORDERABLES Performing Organization Address City/[facility]/ZIP Co de Phone Number [facility] [address] * HIV Screen, 4th Generation ([facility]/CGP/APD/NLH) (01/20/2023 3:23 PM EDT) Pathologist [facility] HIV Ab/Ag Screen Negative Negative [facility] [...] Lim MD CHEMISTRY ORDERABLES Performing Organization Address City/[facility]/ZIP Co de Phone Number [facility] [address] * (ABNORMAL) POCT Glucose (01/20/2023 11:33 AM EDT) Glucose, POC 206(H) 65 - 199 mg/dL [facility] Comment: Supplemental ranges: <140 mg/dL before meals <180 mg/dL all other times of the day Blood 01/20/2023 11:3 3 AM EDT 01/20/2023 11:33 AM EDT Chris Lim MD POINT OF CARE TEST O RDERABLES Performing Organization Address City/[facility]/ZIP Co de Phone Number [facility] [address] * POCT Glucose (01/20/2023 7:24 AM EDT) Glucose, POC 152 65 - 199 mg/dL [facility] Comment: Supplemental ranges: <140 mg/dL before meals <180 mg/dL all other times of the day Blood 01/20/2023 7:24 AM EDT 01/20/2023 7:24 AM EDT Chris Lim MD POINT OF CARE TEST O RDERAMARCY Performing Organization Address [facility] Co de Phone Number [facility] [address] * Immunoglobulins, Quantitative (01/20/2023 3:26 AM EDT) [facility] [address] Immunoglobulin G 880 700 - 1,600 mg/dL [facility] Comment: Pediatric Reference Intervals obtained from the [employer] Reference Interval project. http://www.[employer].ca/caliperproject/index.html IgA 286 70 - 400 mg/dL [facility] IgM 72 40 - 230 mg/dL [facility] Blood Venous Draw / Unknown 01/20/2023 3:26 AM EDT 01/20/2023 3:44 AM EDT Narrative Resulting Agency Comment Spec In Lab Deonte Lugo MD CHEMISTRY ORDERABLE S Performing Organization Address City/[facility]/ZIP Co de Phone Number [facility] [address] * Immunofixation Electrophoresis (01/20/2023 3:26 AM EDT) Pathologist [facility] Immunofixation Interpretation See Note [facility] Comment: No specific abnormality observed. Dr. Arnulfo Moore 01/23/2023 See scanned report. Blood Venous Draw / Unknown 01/20/2023 3:26 AM EDT 01/20/2023 3:44 AM EDT Narrative Resulting Agency Comment Spec In Lab Deonte Lugo MD CHEMISTRY ORDERABLE S Performing Organization Address City/[facility]/ZIP Co de Phone Number [facility] [address] * Protein Electrophoresis, serum (01/20/2023 3:26 AM [...] [facility] SPEP Comments See Note [facility] Comment: Serum protein [...] MD CHEMISTRY ORDERABLE S Performing Organization Address City/[facility]/ZIP Co de Phone Number [facility] [address] * C4 Complement (01/20/2023 3:26 AM EDT) Complement C4 31 10 - 40 mg/dL [facility] Blood Venous Draw / Unknown 01/20/2023 3:26 AM EDT 01/20/2023 3:44 AM EDT Narrative Resulting Agency Comment Spec In Lab Deonte Lguo MD CHEMISTRY ORDERABLE S Performing Organization Address City/[facility]/ZIP Co de Phone Number [facility] [address] * (ABNORMAL) Free Light Chains, Serum (01/20/2023 3:26 AM EDT) Pathologist [facility] [place] Free Light Chain 8.16(H) 0.72 - 2.75 mg/dL [facility] Lambda Free Light Chain 4.53(H) 0.57 - 2.15 mg/dL [facility] [place]/Lambda FLC Ratio 1.8013 0.4000 - 2.5800 [facility] Blood Venous Draw / Unknown 01/20/2023 3:26 AM EDT 01/20/2023 3:44 AM EDT Narrative Resulting Agency Comment Spec In Lab Deonte Lugo MD CHEMISTRY ORDERABLE S Performing Organization Address [facility] Co de Phone Number [facility] [address] * Differential, Automated (01/20/2023 3:26 AM EDT) Pathologist [facility] Neutrophil % 75.0 % [facility] Neutrophil Absolute 6.04 1.70 - 6.10 x10(3)/[facility] Lymph % 12.2 % [facility] Lymphocytes Abs 1.0 0.9 - 3.2 x10(3)/[facility] Monocyte % 8.6 % [facility] Monocyte Abs 0.7 0.3 - 0.9 x10(3)/[facility] Eos % 3.3 % [facility] Eosinophils Abs 0.3 0.0 - 0.4 x10(3)/[facility] Basophil % 0.7 % [facility] Baso Absolute 0.1 0.0 - 0.1 x10(3)/[facility] Immature Gran % 0.20 % SURGICAL [...] ORDERABLE S [facility] [address] * (ABNORMAL) Hemogram (01/20/2023 3:26 AM EDT) [...] [facility] NRBC% auto 0.0 % [facility] NRBC Absolute 0.000 0.000 - 0.000 x10(3)/mc L [facility] Blood 01/20/2023 3:26 AM EDT 01/20/2023 3:42 AM EDT Narrative Resulting Agency Comment Spec In Lab Kyle Mckeon MD HEMATOLOGY ORDERABLE S Performing Organization Address [facility] Co de Phone Number [facility] [place] [address] * (ABNORMAL) Phosphorus (01/20/2023 3:26 AM EDT) Phosphorus 4.7(H) 2.5 - 4.5 mg/dL [facility] Blood 01/20/2023 3:26 AM EDT 01/20/2023 3:42 AM EDT Narrative Resulting Agency Comment Spec In Lab Tanya Seaman MD CHEMISTRY ORDERABL ES Performing Organization Address [facility] de Phone Number [facility] [place] [address] * Magnesium (01/20/2023 3:26 AM EDT) Magnesium 0.95 0.69 - 1.07 mmol/L [facility] Blood 01/20/2023 3:26 AM EDT 01/20/2023 3:42 AM EDT Narrative Resulting Agency Comment Spec In Lab Tanya Seaman MD CHEMISTRY ORDERABL ES Performing Organization Address [facility] de Phone Number [facility] [place] [address] * (ABNORMAL) Basic Metabolic Panel (non-fasting) (01/20/2023 3:26 AM EDT) Glucose 109 65 - 199 mg/dL [facility] Comment:Diabetes: >=200 mg/d L plus symptoms Blood Urea Nitrogen 67(H) 10 - 20 mg/dL [facility] Creatinine 5.79(H) 0.80 - 1.50 mg/dL [facility] Sodium 139 135 [...] MD CHEMISTRY ORDERABL ES Performing Organization Address [facility]/ZIP Co de Phone Number [facility] [address] * (ABNORMAL) Ferritin (01/20/2023 3:26 AM EDT) [facility] Signature Ferritin 478(H) 30 - 400 ng/mL [facility] Comment: Pediatric reference ranges not verified at [facility], interpret with caution. Reference ranges for females greater than 50 years of age approach values for men, i.e., 30-400 ng/mL. Blood 01/20/2023 3:26 AM EDT 01/20/2023 3:42 AM EDT Narrative Resulting Agency Comment Spec In Lab Sixto Morrow MD CHEMISTRY ORDERABLES Performing Organization Address City/[facility]/ZIP Co de Phone Number [facility] [address] * (ABNORMAL) Iron and TIBC (01/20/2023 3:26 AM EDT) Iron 68 45 - 160 mcg/dL [facility] TIBC 229(L) 250 - 450 mcg/dL [facility] Iron Saturation 30 20 - 50 % [facility] Blood 01/20/2023 3:26 AM EDT 01/20/2023 3:42 AM EDT Narrative Resulting Agency Comment Spec In Lab Sixto Morrow MD CHEMISTRY ORDERABLES [facility] [address] * (ABNORMAL) PTH (01/20/2023 3:26 AM EDT) Parathyroid Hormone 401(H) 15 - 65 pg/mL [facility] Blood 01/20/2023 3:26 AM EDT 01/20/2023 3:42 AM EDT Narrative Resulting Agency Comment Spec In Lab Sixto Morrow MD CHEMISTRY ORDERABLES Performing Organization Address City/[facility]/ZIP Co de Phone Number [facility] [address] * (ABNORMAL) Vitamin D, 25-Hydroxy (01/20/2023 3:26 AM EDT) Vitamin D Total 25 OH 9(L) 21 - 100 ng/mL [facility] Vit D Interp Deficient [facility] Blood 01/20/2023 3:26 AM EDT 01/20/2023 3:42 AM EDT Narrative Resulting Agency Comment Spec In Lab Sixto Morrow MD CHEMISTRY ORDERABLES Performing Organization Address City/[facility]/ZIP Co de Phone Number [facility] [address] * POCT Glucose (01/19/2023 9:33 PM EDT) Glucose, POC 112 65 - 199 mg/dL [facility] Comment: Supplemental ranges: <140 mg/dL before meals <180 mg/dL all other times of the day Blood 01/19/2023 9:33 PM EDT 01/19/2023 9:33 PM EDT Chris Lim MD POINT OF CARE TEST O TESSA Performing Organization Address City/[facility]/ZIP Co de Phone Number [facility] [address] * POCT Glucose (01/19/2023 4:37 PM EDT) Glucose, POC 175 65 - 199 mg/dL [facility] Comment: Supplemental ranges: <140 mg/dL before meals <180 mg/dL all other times of the day Blood 01/19/2023 4:37 PM EDT 01/19/2023 4:37 PM EDT Chris Lim MD POINT OF CARE TEST O TESSA Performing Organization Address [facility] Co de Phone Number [facility] [address] * (ABNORMAL) Basic Metabolic Panel (non-fasting) (01/19/2023 2:15 PM EDT) Glucose 206(H) 65 - 199 mg/dL [facility] Comment:Diabetes: >=200 mg/d L plus symptoms Blood Urea Nitrogen 59(H) 10 - 20 mg/dL [facility] Creatinine 5.69(H) 0.80 - 1.50 mg/dL [facility] Sodium 140 135 [...] questions. Chloride 102 98 - 107 mmol/L [facility] Carbon Dioxide 22 22 - [...] MD CHEMISTRY ORDERABL ES Performing Organization Address [facility] Co de Phone Number [facility] [address] * POCT Glucose (01/19/2023 11:31 AM EDT) Glucose, POC 96 65 - 199 mg/dL [facility] Comment: Supplemental ranges: <140 mg/dL before meals <180 mg/dL all other times of the day Blood 01/19/2023 11:3 1 AM EDT 01/19/2023 11:31 AM EDT Chris Lim MD POINT OF CARE TEST O RDERABLES Performing Organization Address City/[facility]/ZIP Co de Phone Number [facility] [address] * (ABNORMAL) Basic Metabolic Panel (non-fasting) (01/19/2023 [...] ORDERABL ES [facility] [address] * ECHO COMPLETE W CONTRAST (01/19/2023 8:59 AM EDT) Anatomical Region Laterality Modality Cardiac Other 01/19/2023 6:52 AM EDT Narrative 01/19/2023 11:43 AM EDT ? Echocardiogram Report Name: MIGUEL SANCHEZ ? Study Date: 01/19/2023 06:52 AMBP: 142/82 mmHg ? [facility] : 1955 ? Height: 165 cm ? Account: [id number] Age: 67 yrs ? Weight: 110 kg Gender: Male ?BSA: 2.1 m2 Ordering Physician: TANYA SEAMAN Referring Physician: ELHAM DYKES Performed By: Cathleen Ware RDCS Reason For Study: Heart failure Interpreting Fellow: Martin Reyes. Exam Location: [facility]. Interpretation Summary Left ventricle is mildly dilated [...] ventricular systolic function has further decreased. Procedure Complete-[id number]. Satisfactory quality. Left Ventricle Left ventricle is [...] Echocardiogram Report Name: MIGUEL SANCHEZ Study Date: :52 AMBP: 142/82 mmHg Patient Location: [id number] : 1955 Height: 165 cm Account: [id number] Age: 67 yrs Weight: 110 kg Gender: Male BSA: 2.1 m2 Ordering Physician: TANYA SEAMAN Referring Physician: ELHAM DKYES Performed By: Cathleen Ware RDCS Reason For Study: Heart failure Interpreting Fellow: Martin Reyes. Exam Location: [facility]. Interpretation Summary Left ventricle is mildly dilated [...] left ventricular systolicfunction has further decreased. Procedure Complete-[id number]. Satisfactory quality. Left Ventricle Left ventricle is [...] bladder.. Electronically signed by: Jimmie العراقي MD, [facility] ([phone]), at 01/19/2023 8:39 AM Thank you for letting us participate in the care of this patient. If you are a health care provider and have any questions regarding this report, please contact the number above. For patients who have questions, please contact the health farm or ranch animal caretaker that requested your imaging first. ?Jimmie العراقي, Staff Physician Electronically Signed Final Report ?? 01/19/2023 08:47 am Narrative 01/19/2023 8:47 AM EDT Renal ? (Signed Final 01/19/2023 08:47 am) PATIENT INFO: ID #: ? [id number] ?: ??[birth year] (67 yrs)(M) Name: ? MIGUELVERONICA SANCHEZ ? Visit Date: 01/19/2023 08:27 am PERFORMED BY: Attending: ?Malcom OTT, Jimmie Perez Performed By: ? Kary Iqbal RDMS Referred By: ?TANYA SEAMAN Location: ? [place] SERVICE(S) PROVIDED: URETRO - Retroperitoneal Complete - [id number] ? [id number] INDICATIONS: New CLEM of unclear etiology RIGHT [...] 01/19/2023 08:47 am) PATIENT INFO: ID #: [id number] : [birth year] (67 yrs)(M) Name: MIGUEL SANCHEZ Visit Date: 01/19/2023 08:27 am PERFORMED BY: Attending: Jimmie العراقي MD Performed By: Kary Iqbal RDMS Referred By: TANYA SEAMAN Location: [place] SERVICE(S) PROVIDED: URETRO - Retroperitoneal Complete - [id number] INDICATIONS: New CLEM of unclear etiology RIGHT [...] bladder.. Electronically signed by: Jimmie العراقي MD, [facility] ([phone]), at 01/19/2023 8:39 AM Thank you for letting us participate in the care of this patient. If you are a health care provider and have any questions regarding this report, please contact the number above. For patients who have questions, please contact the health farm or ranch animal caretaker that requested your imaging first. Jimmie العراقي, Staff Physician Electronically Signed Final Report 01/19/2023 08:47 am Tanya Seaman MD [email or web address] GEN ORDERAB LES * POCT Glucose (01/19/2023 8:00 AM EDT) Glucose, POC 92 65 - 199 mg/dL [facility] Comment: Supplemental ranges: <140 mg/dL before meals <180 mg/dL all other times of the day Blood 01/19/2023 8:00 AM EDT 01/19/2023 8:00 AM EDT Tanya Seaman MD POINT OF CARE TEST ORDERABLES [facility] [place] [address] * POCT Glucose (01/19/2023 7:42 AM EDT) Glucose, POC 87 65 - 199 mg/dL [facility] Comment: Supplemental ranges: <140 mg/dL before meals <180 mg/dL all other times of the day Blood 01/19/2023 7:42 AM EDT 01/19/2023 7:42 AM EDT Tanya Seaman MD POINT OF CARE TEST ORDERABLES Performing Organization Address City/State/[facility] Co de Phone Number [facility] [place] [address] * (ABNORMAL) Basic Metabolic Panel (non-fasting) (01/19/2023 [...] Lab Tanya Seaman [place] [address] * CK (01/19/2023 1:50 AM EDT) Pathologist [facility] Creatine Kinase 70 0 - 200 unit/L [facility] Blood Venous Draw / Unknown 01/19/2023 1:50 AM EDT 01/19/2023 1:55 AM EDT Narrative Resulting Agency Comment Spec In Lab Kyle Mckeon MD CHEMISTRY ORDERABLES Performing Organization Address [facility] [place] [place] [address] * Differential, Automated (01/19/2023 1:50 AM EDT) [facility] [address] Neutrophil % 73.8 % [facility] Neutrophil Absolute 5.75 1.70 - 6.10 x10(3)/[facility] Lymph % 13.8 % [facility] Lymphocytes Abs 1.1 0.9 - 3.2 x10(3)/[facility] Monocyte % 8.5 % [facility] Monocyte Abs 0.7 0.3 - 0.9 x10(3)/[facility] Eos % 3.0 % [facility] Eosinophils Abs 0.2 0.0 - 0.4 x10(3)/[facility] Basophil % 0.6 % [facility] Baso Absolute 0.0 0.0 - 0.1 x10(3)/[facility] Immature Gran % 0.30 % [facility] Comment: Immature granulocytes(IG's)percentage and absolute count will include metamyelocytes, myelocytes, and promyelocytes. Blood smears from CBCs yielding IG's will be scanned manually for concordance. If this scan disagrees with the automated IG or if promyelocytes are noted, a manual differential will be performed. Immature Gran Absolute 0.02 0.00 - 0.04 x10(3)/[facility] Blood 01/19/2023 1:50 AM EDT 01/19/2023 1:54 AM EDT Narrative Resulting Agency Comment Spec In Lab Kyle Mckeon MD HEMATOLOGY ORDERABLE S [facility] [address] * (ABNORMAL) Hemogram (01/19/2023 1:50 AM EDT) [...] Platelet Volume 11.5 7.6 - 12.9 fL [facility] NRBC% auto 0.0 % [facility] NRBC Absolute 0.000 0.000 - 0.000 x10(3)/mc L [facility] Blood 01/19/2023 1:50 AM EDT 01/19/2023 1:54 AM EDT Narrative Resulting Agency Comment Spec In Lab Kyle Mckeon MD HEMATOLOGY ORDERABLE S Performing Organization Address City/[facility]/ZIP Co de Phone Number [facility] [address] * Phosphorus (01/19/2023 1:50 AM EDT) Phosphorus 4.3 2.5 - 4.5 mg/dL [facility] Blood 01/19/2023 1:50 AM EDT 01/19/2023 1:54 AM EDT Narrative Resulting Agency Comment Spec In Lab Tanya Seaman MD CHEMISTRY ORDERABL ES Performing Organization Address City/[facility]/ZIP Co de Phone Number [facility] [address] * Magnesium (01/19/2023 1:50 AM EDT) Magnesium 0.80 0.69 - 1.07 mmol/L [facility] Blood 01/19/2023 1:50 AM EDT 01/19/2023 1:54 AM EDT Narrative Resulting Agency Comment Spec In Lab Tanya Seaman MD CHEMISTRY ORDERABL ES Performing Organization Address [facility] de Phone Number [facility] [address] * (ABNORMAL) Basic Metabolic Panel (non-fasting) (01/19/2023 1:50 AM EDT) Glucose 78 65 - 199 mg/dL [facility] Comment:Diabetes: >=200 mg/d L plus symptoms Blood Urea Nitrogen 54(H) 10 - 20 mg/dL [facility] Creatinine 5.50(H) 0.80 - 1.50 mg/dL [facility] Sodium 143 135 - 145 [...] questions. Chloride 107 98 - 107 mmol/L [facility] Carbon Dioxide 22 22 - 31 mmol/L [facility] Anion Gap 14 5 - 15 mmol/L [facility] Calcium 8.9 8.5 - 10.5 mg/dL [facility] Est Glomerular Filtration Rate 11(L) >=60 mL/min/1. 73 m?? [facility] Comment: This patient's [...] MD CHEMISTRY ORDERABL ES Performing Organization Address [facility] Co de Phone Number [facility] [address] * POCT Glucose (01/19/2023 1:46 AM EDT) Glucose, POC 75 65 - 199 mg/dL [facility] Comment: Supplemental ranges: <140 mg/dL before meals <180 mg/dL all other times of the day Blood 01/19/2023 1:46 AM EDT 01/19/2023 1:46 AM EDT Tanya Seaman MD POINT OF CARE TEST ORDERABLES Performing Organization Address [facility] Co de Phone Number [facility] [address] * (ABNORMAL) Blood Gas Venous ([facility]) (01/18/2023 [...] HLTH LABORATORY Oxyhemoglobin, Venous Not Perf % [facility] Carboxyhemoglob in, Venous Not Perf % [facility] Comment: Nonsmokers: 0.5-1.5% COHB Smokers: Variable, but usually less than 10% Toxic: 20-30% COHB Lethal: Greater than 60% COHB Methemoglobin, Venous Not Perf <=1.5 % [facility] Na Whole Blood 140 135 - 145 mmol/L [facility] K Whole Blood [...] Whole Blood 109(H) 98 - 107 mmol/L [facility] Gluc Whole Bld 73 65 - 199 mg/dL [facility] Comment:Diabetes: >=200 mg/d L plus symptoms Lactate WB 1.3 0.5 - 2.2 mmol/L [facility] Blood Gas Source Venous [facility] Blood Venous Draw / Unknown 01/18/2023 10:20 PM EDT 01/18/2023 10:26 PM EDT Narrative Resulting Agency Comment Spec In Lab Kyle Mckeon MD CHEMISTRY ORDERABLES [facility] [address] * (ABNORMAL) Basic Metabolic Panel (non-fasting) (01/18/2023 10:16 PM EDT) Glucose 74 65 - 199 mg/dL [facility] Comment:Diabetes: >=200 mg/d L plus symptoms Blood Urea Nitrogen 60(H) 10 - 20 mg/dL [facility] Creatinine 5.81(H) 0.80 - 1.50 mg/dL [facility] Sodium 145 135 [...] [facility] Carbon Dioxide Not Perf - [facility] Comment:Add-on request. Chuck le too old to perform test. Anion [...] CHEMISTRY ORDERABLES [facility] [address] * (ABNORMAL) Differential, Automated (01/18/2023 10:16 PM EDT) Neutrophil % 78.0 % [facility] Neutrophil Absolute 5.41 1.70 - 6.10 x10(3)/mc L [facility] Lymph % 11.5 % [facility] Lymphocytes Abs 0.8(L) 0.9 - 3.2 x10(3)/mc L [facility] Monocyte % 6.6 % [facility] Monocyte Abs 0.5 0.3 - 0.9 x10(3)/mc L [facility] Eos % 3.0 % [facility] Eosinophils Abs 0.2 0.0 - 0.4 x10(3)/mc L [facility] Basophil % 0.6 % [facility] Baso Absolute 0.0 0.0 - 0.1 x10(3)/ L [facility] Immature [...] Absolute 0.02 0.00 - 0.04 x10(3)/ L [facility] Blood 01/18/2023 10:1 6 PM EDT 01/18/2023 10:27 PM EDT Narrative Resulting Agency Comment Spec In Lab Kyle Mckeon MD HEMATOLOGY ORDERABLE S Performing Organization Address City/State/[facility] Co de Phone Number [facility] [address] * (ABNORMAL) Hemogram (01/18/2023 10:16 PM EDT) White Blood Cell 6.9 4.0 - 9.5 x10(3)/ L [facility] Red Blood Cell 3.30(L) 4.58 - 5.54 x10(6)/[facility] [address] [facility]ATORY Hemoglobin 10.1(L) 13.7 - 16.5 g/dL [...] HLTH LABORATORY Platelet 196 145 - 357 x10(3)/[facility] [address] [facility]ORATORY RDW Standard Deviation 44.9 36.0 - 45.0 fL [facility] RDW coefficient of variation 13.1 11.4 - 13.8 % [facility] Mean Platelet Volume 11.4 7.6 - 12.9 fL [facility] NRBC% auto 0.0 % [facility] NRBC Absolute 0.000 0.000 - 0.000 x10(3)/mc L [facility] Blood 01/18/2023 10:1 6 PM EDT 01/18/2023 10:27 PM EDT Narrative Resulting Agency Comment Spec In Lab yKle Mckeon MD HEMATOLOGY ORDERABLE S Performing Organization Address [facility] de Phone Number [facility] [address] * Salicylate (01/18/2023 10:16 PM EDT) Salicylate 3 mg/L [facility] Comment: Therapeutic Range: ??< 200 mg/L Arthritic Therapy: ??150-300 mg/L Toxic: ?> 350 mg/L ??Concentrations > 500 mg/L may be an indication for alkalinization of urine. Concentrations > 800 mg/L are often an indication for hemodialysis. Blood 01/18/2023 10:1 6 PM EDT 01/18/2023 10:27 PM EDT Narrative Resulting Agency Comment Spec In Lab Tanya Seaman MD CHEMISTRY ORDERABL ES Performing Organization Address [facility] Co de Phone Number [facility] [address] * (ABNORMAL) Acetaminophen level (01/18/2023 10:16 PM EDT) Acetamin Lvl <5(L) 5 - 30 mg/L [facility] Comment: Levels >150 mg/L at 4 hours post ingestion are often an indication for N-Acetylcysteine. Blood 01/18/2023 10:1 6 PM EDT 01/18/2023 10:27 PM EDT Narrative Resulting Agency Comment Spec In Lab Tanya Seaman MD CHEMISTRY ORDERABL ES Performing Organization Address [facility] Co de Phone Number [facility] [address] * Phosphorus (01/18/2023 10:16 PM EDT) Phosphorus 4.2 2.5 - 4.5 mg/dL [facility] Blood 01/18/2023 10:1 6 PM EDT 01/18/2023 10:27 PM EDT Narrative Resulting Agency Comment Spec In Lab Tanya Seaman MD CHEMISTRY ORDERABL ES Performing Organization Address [facility] Co de Phone Number [facility] [address] * Magnesium (01/18/2023 10:16 PM EDT) Magnesium 0.87 0.69 - 1.07 mmol/L [facility] Blood 01/18/2023 10:1 6 PM EDT 01/18/2023 10:27 PM EDT Narrative Resulting Agency Comment Spec In Lab Tanya Seaman MD CHEMISTRY ORDERABL ES Performing Organization Address [facility] de Phone Number [facility] [address] * APTT (01/18/2023 10:16 PM EDT) Partial [...] MD HEMATOLOGY ORDERAB LES Performing Organization Address [facility] Co de Phone Number [facility] [place] [address] * (ABNORMAL) Prothrombin Time (01/18/2023 10:16 PM EDT) Prothrombin Time 14.3(H) 9.4 - 12.5 sec [facility] International Normalization Ratio 1.3 [facility] [...] ORDERAB LES [facility] [address] * (ABNORMAL) Hemoglobin A1c (01/18/2023 10:16 PM EDT) Hemoglobin A1c 5.7(H) 4.3 - 5.6 % [facility] Comment: Reference Range: 4.3 - [...] Mellitus, Diabetes Care 2013; 36: Suppl. 1, U57-08 Estimated Average Glucose 117 mg/dL [facility] [...] into estimated average glucose values. ??Diabetes Care 2008:31(8):5727-6123. Blood 01/18/2023 10:1 6 PM EDT 01/18/2023 10:27 PM EDT Narrative Resulting Agency Comment Spec In Lab Tanya Seaman MD CHEMISTRY ORDERABL ES Performing Organization Address [facility] Co de Phone Number [facility] [place] [address] * TSH Piatt (01/18/2023 10:16 PM EDT) Thyroid Stimulating Hormone 2.03 0.27 - 4.20 mcIU/mL [facility] Comment: Reference Interval (mcIU/mL): Females: ??First Trimester: 0.23-3.88 ??Second Trimester: 0.22-3.90 ??Third Trimester: 0.44-4.66 Blood 01/18/2023 10:1 6 PM EDT 01/18/2023 10:27 PM EDT Narrative Resulting Agency Comment Spec In Lab Tanya Seaman MD CHEMISTRY ORDERABL ES Performing Organization Address [facility] Co de Phone Number [facility] [place] [address] * LDL Cholesterol, Direct (01/18/2023 10:16 PM EDT) LDL Cholesterol, Direct 65 mg/dL [facility] Comment: Lowest Risk: <100 mg/dL Lower Risk: 100-129 mg/dL Borderline High Risk: 130-159 mg/dL High Risk: 160-189 mg/dL Very High Risk: >az=100 mg/dL Blood 01/18/2023 10:1 6 PM EDT 01/18/2023 10:27 PM EDT Narrative Resulting Agency Comment Spec In Lab Tanya Seaman MD CHEMISTRY ORDERABL ES [facility] [place] [address] * HDL/Cholesterol Profile (01/18/2023 10:16 PM EDT) Cholesterol, Total 122 mg/dL [facility] Comment: Lower Risk: <200 mg/dL Average Risk: 200-239 mg/dL Higher Risk: >yc=888 mg/dL HDL Cholesterol 27 mg/dL [facility] [...] greater than or equal to 190 mg/dL. [email or web address] Measure LDL if Total Cholesterol minus HDL Cholesterol is greater than 220 mg/dL. Adults aged 40-75 with LDL 70-189 mg/dL should have their 10 year ASCVD risk estimated with the ACC/AHA ASCVD risk glove cuffer http://tools.acc.org/AKCCF-Nkrc-Udjdievkx/ Statin should be discussed if risk greater [...] MD CHEMISTRY ORDERABL ES Performing Organization Address City/[facility]/ZIP Co de Phone Number [facility] [address] * (ABNORMAL) Troponin (01/18/2023 10:16 PM EDT) [...] Health Care Laboratory Test Catalog Reference: Fourth [place] Definition of Myocardial Infarction. Journal of the [place] [employer] 2018;72:5525-6727 Blood 01/18/2023 10:1 6 PM EDT 01/18/2023 10:27 PM EDT Narrative Resulting Agency Comment Spec In Lab Tanya Seaman MD CHEMISTRY ORDERABL ES Performing Organization Address City/[facility]/ZIP Co de Phone Number [facility] [address] * (ABNORMAL) Protein/Creatinine Ratio, urine (01/18/2023 10:13 [...] In Lab Deonte Lugo MD URINE ORDERABLES [facility] [address] * Urine culture (01/18/2023 10:13 PM EDT) Urine Culture No growth (Less than 1,000 cfu/ml). [facility] Indwelling Catheter Urine 01/18/2023 10:13 PM EDT 01/18/2023 11:08 PM EDT Narrative Resulting Agency Comment Spec In Lab Kyle Mckeon MD MICROBIOLOGY - GENER AL ORDERABLES Performing Organization Address [facility]/ZIP Co de Phone Number [facility] [address] * (ABNORMAL) Urinalysis Microscopic Exam (01/18/2023 10:13 PM EDT) RBC, Urine >100(H) 0 - 3 /HPF [facility] WBC, Urine 10(H) 0 - 3 /HPF [facility] Squamous Epithelial Cells Raw Data, Urine 5(H) <=4 /HPF [facility] Hyaline Casts, Urine 2 0 - 2 /LPF [facility] Indwelling Catheter Urine 01/18/2023 10:13 PM EDT 01/18/2023 10:22 PM EDT Narrative Resulting Agency Comment Spec In Lab Kyle Mckeon MD URINE ORDERABLES Performing Organization Address City/[facility]/ZIP Co de Phone Number [facility] [address] * Rapid Drug Screen w/ Confirmation, Urine (01/18/2023 10:13 PM EDT) Pathologist [facility] Barbiturates Screen, Urine None Detected None Detected [facility] Comment: The barbiturate screen detects [...] Benzodiazepines Screen, Urine None Detected None Detected [facility] Comment: The benzodiazepines screen detects [...] Cocaine Screen, Urine None Detected None Detected [facility] Comment: The cocaine metabolites screen detects benzoylecgonine (Cocaine Metabolite) at concentrations >150 ng/mL. A ? Presumptive Positive? result indicates that the screening result was positive but has not yet been confirmed by a highly-specific method. As with any screen, occasional false positive results from cross-reacting substances may occur. Not for Medico-Legal Purposes. Methadone Metabolites Screen, Urine None Detected None Detected [facility] Comment: The methadone metabolite screen detects EDDP (major methadone metabolite) at concentrations >100 ng/mL. A ? Presumptive Positive? result indicates that the screening result was positive but has not yet been confirmed by a highly-specific method. As with any screen, occasional false positive results from cross-reacting substances may occur. Not for Medico-Legal Purposes. Opiate Screen, Urine None Detected None Detected [facility] Comment: The opiates screen detects opiates [...] Cannabinoid Screen, Urine None Detected None Detected [facility] Comment: The marijuana metabolites screen detects the THC metabolite (79-ida-7-carboxy-delta 9-THC) at concentrations >20 ng/mL. A ? [...] Buprenorphine Screen, Urine None Detected None Detected [facility] Comment: The buprenorphine screen detects buprenorphine [...] characteristics of this test were determined by [facility] in accordance with CLIA requirements. This laboratory [...] Tricyclics Screen, Urine None Detected None Detected [facility] Comment: The tricyclics screen detects [...] characteristics of this test were determined by [facility] in accordance with CLIA requirements. This laboratory [...] CHEMISTRY ORDERABLES [facility] [place] [address] * Rapid Drug Screen, Urine (HEATHER Request) [...] Seaman MD URINE ORDERABLES Performing Organization Address [facility] Co de Phone Number [facility] [place] [address] * Creatinine, urine, random (01/18/2023 10:13 PM EDT) Creatinine, Urine 41 mg/dL [facility] Urine 01/18/2023 10:1 3 PM EDT 01/18/2023 10:22 PM EDT Narrative Resulting Agency Comment Spec In Lab Tanya Seaman MD URINE ORDERABLES Performing Organization Address [facility] Co de Phone Number [facility] [address] * Urea nitrogen, urine, random (01/18/2023 10:13 PM EDT) Urea Nitrogen, Urine 251 mg/dL [facility] Urine 01/18/2023 10:1 3 PM EDT 01/18/2023 10:22 PM EDT Narrative Resulting Agency Comment Spec In Lab Tanya Seaman MD URINE ORDERABLES Performing Organization Address [facility] Co de Phone Number [facility] [address] * (ABNORMAL) Urinalysis with reflex Culture (01/18/2023 [...] Clear [facility] Specific [place] Urine Automated 1.010 1.005 - 1.030 [facility] Color, Urine Dipstick Red(A) Yellow [facility] Reflex to Culture Yes [facility] Indwelling Catheter Urine 01/18/2023 10:13 PM EDT 01/18/2023 10:22 PM EDT Narrative Resulting Agency Comment Spec In Lab Tanya Seaman MD URINE ORDERABLES Performing Organization Address City/[facility]/ZIP Co de Phone Number [facility] [address] * Lactate, whole blood, send to lab ([facility] (01/18/2023 7:46 PM EDT) Lactate WB 1.6 0.5 - 2.2 mmol/L [facility] Blood 01/18/2023 7:46 PM EDT 01/18/2023 7:51 PM EDT Narrative Resulting Agency Comment Spec In Lab Tanya Seaman MD CHEMISTRY ORDERABL ES Performing Organization Address City/[facility]/ZIP Co de Phone Number [facility] [address] * (ABNORMAL) Differential, Automated (01/18/2023 7:16 PM EDT) Neutrophil % 80.9 % [facility] Neutrophil Absolute 5.86 1.70 - 6.10 x10(3)/mc L [facility] [facility] Lymph % 9.7 % [facility] Lymphocytes Abs 0.7(L) 0.9 - 3.2 x10(3)/mc L [facility] Monocyte % 5.9 % [facility] Monocyte Abs 0.4 0.3 - 0.9 x10(3)/ L [facility] Eos % 2.6 % [facility] Eosinophils Abs 0.2 0.0 - 0.4 x10(3)/ L [facility] Basophil % 0.6 % [facility] Baso Absolute 0.0 0.0 - 0.1 [...] Absolute 0.02 0.00 - 0.04 x10(3)/ L [facility] Blood 01/18/2023 7:16 PM EDT 01/18/2023 7:27 PM EDT Narrative Resulting Agency Comment Spec In Lab Kyle Mckeon MD HEMATOLOGY ORDERABLE S Performing Organization Address City/State/[facility] Co de Phone Number [facility] [address] * (ABNORMAL) Hemogram (01/18/2023 7:16 PM EDT) White Blood Cell 7.2 4.0 - 9.5 x10(3)/mc L [facility] Red Blood Cell 3.24(L) 4.58 - 5.54 x10(6)/mc L [facility] [...] Hemoglobin Concentration 33.6 32.0 - 35.7 g/dL [facility] Platelet 183 145 - 357 x10(3)/mc L [facility] RDW Standard Deviation 44.4 36.0 - 45.0 fL [facility] RDW coefficient of variation 13.2 11.4 - 13.8 % [facility] Mean Platelet Volume 11.9 7.6 - 12.9 fL [facility] NRBC% auto 0.0 % [facility] NRBC Absolute 0.000 0.000 - 0.000 x10(3)/mc L [facility] Blood 01/18/2023 7:16 PM EDT 01/18/2023 7:27 PM EDT Narrative Resulting Agency Comment Spec In Lab Kyle Mckeon MD HEMATOLOGY ORDERABLE S Performing Organization Address [facility] Co de Phone Number [facility] [address] * (ABNORMAL) pro-Brain Natriuretic Peptide (01/18/2023 7:16 PM EDT) NT-proBNP 11,818(H) <=124 pg/mL [facility] Blood 01/18/2023 7:16 PM EDT 01/18/2023 7:27 PM EDT Narrative Resulting Agency Comment Spec In Lab Tanya Seaman MD CHEMISTRY ORDERABL ES Performing Organization Address [facility] Co de Phone Number [facility] [address] * (ABNORMAL) Troponin (01/18/2023 7:16 PM EDT) [...] [facility] Care [facility] Test Catalog Reference: Fourth [place] Definition of Myocardial Infarction. Journal of the [place] [employer] 2018;72:4264-7183 Blood 01/18/2023 7:16 PM EDT 01/18/2023 7:27 PM EDT Narrative Resulting Agency Comment Spec In Lab Tanya Seaman MD CHEMISTRY ORDERABL ES [facility] [place] [place] [address] * (ABNORMAL) Comprehensive metabolic panel (non-fasting) (01/18/2023 [...] MD CHEMISTRY ORDERABL ES Performing Organization Address City/State/[facility] Co de Phone Number [facility] [address] * EKG 12 Lead (01/18/2023 6:52 PM EDT) Ventricular rate 69 BPM MUSE SYSTEM Atrial Rate 69 BPM MUSE SYSTEM P-R Interval 212 ms MUSE SYSTEM QRS Duration 126 ms MUSE SYSTEM Q-T Interval 432 ms MUSE SYSTEM QTC Calculated (Bezet) 462 ms MUSE SYSTEM Calculated P [place] 46 degrees MUSE SYSTEM Calculated R [place] -37 degrees MUSE SYSTEM Calculated T [place] 101 degrees MUSE SYSTEM INTERPRETATION Sinus rhythm with 1st degree A-V block Left axis deviation Non-specific intra-ventricul ar conduction block Possible Lateral infarct , age undetermined Abnormal ECG No previous ECGs available Confirmed by Tessa Saldivar ([id number]) on 01/19/2023 9:21:20 AM MUSE SYSTEM 01/18/2023 6:52 PM EDT 01/19/2023 9:21 AM EDT Tnaya Seaman MD ECG ORDERABLES MUSE SYSTEM documented in this encounter Visit [...] Wed01/18/23 at 204, Until Wed01/27/23 at 1827, For BG 50-70 [...] dose on Wed01/20/23 at 2330, Until Discontinued 08 (Given - Provider: Morena Lopez RN)2099 (Not Given - Provider: Adrienne Calderon RN [...] Adrienne Calderon RN)1406 (Given - Provider: Aaron Olson, LELAND)2120 (Given - Provider: Adrienne Calderon RN) 0600 [...] Discontinued, Routine 08 (Given - Provider: Morena Lopez, LELAND) 08 (Given - Provider: Morena Lopez RN) 09 (Given - Provider: Sixto Amato, RN) metoprolol succinate XL (Toprol-XL) tablet 25 mg 25 mg, Oral, DAILY, First dose on Wed01/22/23 at 0945, Until Discontinued, DO NOT CRUSH OR OPEN, Routine 08 (Given - Provider: Morena Lopez RN) 08 (Given - Provider: Morena Lopez, LELAND) [...] parameters not met)2121 (Given - Provider: Adrienne Calderon, LELAND) 09 (Not Given - Provider: Morena Lopez RN - Reason: Patient/family refused)2101 (Given - Provider: Lisa Vasquez RN) 09 (Given - Provider: Sixto Amato, LELAND) tamsulosin (Flomax) capsule 0.4 mg (CANCELED) 0.4 mg, Oral, DAILY, First dose on Wed01/20/23 at 1230, Until Discontinued, DO NOT CRUSH OR CHEW, Routine 827 (Given - Provider: Morena Lopez [...] CHEW, Routine 0910 (Given - Provider: Sixto Amato RN) PRN Medication Order 01/25/2023 01/26/2023 01/27/2023 [...] Wed01/18/23 at 204, Until Wed01/27/23 at 1827, For BG 50-70 [...] Wed01/18/23 at 2034, Until Wed01/27/23 at 1827, flush, Flush pertains [...] Routine documented in this encounter Care Teams Technician Chemical Cleaning Relationship Specialty Start Date End Date Reinier Arceo PA Crissy ODEN [address] [place] [address] PCP - General Internal Medicine 01/18/23 documented as of this encounter
--- OUTSIDE RECORDS SUMMARY | 2024-02-22 14:59 | XMS_ITS | Encounter Summary ---
Author Organization [facility] [place] [address] Care Team Providers Care Therapeutic Strategy Lead Name Role Phone Von Miles MD Primary Care Provider [phone] Reason for Visit * Reason Comments Follow-up Encounter Details Date Type Department Care Team (Late st Contact Info) Description 03/09/2014 1:30 PM EDT Office Visit Dermatology at [address] [address] Sixto Doty MD [address] [facility], [facility] A DERMATOLOGY [place], [place] [id number] Neurodermatitis (Primary Dx) Discharge Disposition: Home Social History Tobacco Use Types Packs/Day Years Used Date Smoking Tobacco: Never Sex and Gender Information Value Date Recorded Sex Assigned at Not on file Gender Identity Not on file Sexual Orientation Not on file documented as of this encounter Patient Instructions * Patient Instructions* Sarai Acosta LPN - 03/09/2014 1:32 PM EDT [facility] Dermatitis: After Your Visit Your Care [...] help for plant rashes. ?? Try an ifbb-rha-bactmhi antihistamine such as diphenhydramine (Benadryl) or chlorpheniramine [...] more? Visit our health information library at [email or web address] You can also view health information on The Dodo, your personal patient account. Log in or sign up today. Enter F270 in the search box to learn more about Dermatitis: After Your Visit. ?? [phone] [employer]. Care instructions adapted under license by [facility]. This care instruction is for use with your licensed healthcare professional. If you have questions about a medical condition or this instruction, always ask your healthcare professional. Caption Data, [employer] disclaims any warranty or liability for your use of this information. Content Version: 9.9.299389; Last Revised: November 11, 2012 documented in [...] senior housing. He is 58-1/2, and the hospice social worker working with Geetha Ran is [...] into this option for him via his hospice social worker in Geetha Tong's office. b. Called in to be sure that he has refills of his triamcinolone cream, refills of his hydroxyzine 25 mg one p.o. q.a.m., and we called in a new prescription to [facility] in [place] for doxepin 10 mg to take one [...] 2:20 PM EDT Procedure [place] [address] Austin Simon MD [facility] [place] [address] 04/11/2024 11:20 AM EDT Office Visit Dermatology at [place] [address] [place] [address] Terri Pimentel MD [facility] [address] [place] [address] documented as of this encounter Visit Diagnoses Diagnosis Neurodermatitis- Primary Lichenification and lichen simplex chronicus documented in this encounter Care Teams Therapeutic Strategy Lead Relationship Specialty Start Date End Date Von Miles MD [address] [place] [address] [place] [address] PCP - General 12/04/13 04/17/14 documented as of this encounter
--- OUTSIDE RECORDS SUMMARY | 2024-02-22 14:59 | XMS_ITS | Encounter Summary ---
Author Organization [facility] Address [address] [place] [address] Care Team Providers Care Pouring Crane Operator Name Role Phone Casimiro Perez MD Primary Care Provider Nahed montes de oca Encounter Details Date Type Department Care Team (Late st Contact Info) Description 09/02/2019 Lab Requisition [facility] Pathology & Laboratory Medicine - [facility] [address] [place] [address] Unknown, Provider, Social History Tobacco Use Types [...] 4th Generation Negative Negative 09/04/2019 11:34 EDT [facility] Comment: If acute HIV-1 infection is suspected in a high risk ??patient, submit plasma specimen for HIV-1 RNA quantitation test. Fourth Generation assay performed on the Siemens Centaur. Blood VENOUS BLOOD / Unknown 09/01/2019 11:51 EST 09/03/2019 16:22 EDT Provider Unknown IMMUNOLOGY AND SEROL OGMicki ORDERABLES [facility] [address] [place] [address] documented in this encounter Visit Diagnoses Not on filedocumented in this encounter Care Teams Pouring Crane Operator Relationship Specialty Start Date End Date Casimiro Perez MD PCP - General 05/03/15 documented as of this encounter
--- OUTSIDE RECORDS SUMMARY | 2024-02-22 14:59 | XMS_ITS | Encounter Summary ---
Author Organization [facility] Address [facility] [place] [address] Care Team Providers Care Spectroscopist Name Role Phone Reina Alcala SONNY Primary Care Provider [phone] Encounter Details Date Type Department Care Team (Latest Contact Info) Description 08/25/2019 1:40 PM EST - 08/25/2019 11:59 PM [facility] Hospital Encounter Mobile Echocardiography [facility] [place] [address] Dianne Pace APRN [facility] [address] [place] [address] Heart failure, unspecified HF chronicity, unspecified heart [...] mouth 3 times daily as needed. 01/18/2023 triamcinolone (KENALOG) 0.1 % cream Apply topically [...] 2:20 PM EDT [place] [address] Austin Simon MD [facility] [place] [address] 04/11/2024 11:20 AM EDT Office Visit Dermatology at [address] [phone] Terri Pimentel MD [facility] [address] [place] [address] documented as of this encounter Procedures Procedure Name Priority Date/Time Associated Diagnosis Comments ECHO COMPLETE Routine 08/25/2019 1:58 PM EST Heart failure, unspecified HF chronicity, unspecified heart failure type documented in this encounter Results * ECHO COMPLETE (08/25/2019 1:58 PM EST) EF 45 HEARTLAB SYSTEM Anatomical Region Laterality Modality Other 08/25/2019 Narrative 08/25/2019 2:25 PM EST Procedure: ?Transthoracic Echocardiogram Patient: ?KIA Shaw. . ? (Age): 1955(63y) Med Rec#: ? [id number] ?Sex: ?M ? Site Loc: ? [place] ??Ht / Wt: ??165.1(cm)/118.3 Pt. Loc: ?Adult Floor ? BSA: ?2.22 Study Date: ?? 08/25/2019 ?Pt. Type: Inpatient Tape: ? Referring: Dianne Pace Referring: [facility] (Diag Imaging) Referring: [facility](Med Rec) Referring: [facility](Med/Surg) Reading: Remy Ball ([id number]) Spa Therapist: ABHI Spa Therapist: ABHI Diagnosis: *Heart failure, unspecified (I50.9) Rhythm: [...] Vmax ?0.81 ? m/sec ? MV deceleration wlde338.33 ? msec ? MV A-wave Vmax ?1.06 [...] ? Mid-Inferior ?Hypokinetic ? Mid-Inferoseptal ?Hypokinetic ? [place]-Septal ? Hypokinetic ? [place]-Anterior ? Hypokinetic ? [place]-Lateral ?Hypokinetic ? [place]-Inferior ? Hypokinetic ? [place]-Tip ?Hypokinetic ? This report has been electronically signed by: Remy Ball MD ? 08/25/2019 14:23:59 Images reviewed and interpretation verified [facility] Procedure Note Remy Ball MD - 08/25/2019 Procedure: Transthoracic Echocardiogram Patient: KIA Parada (Age): 1955(63y) Med Rec#: [id number] Sex: M Site Loc: [facility] Ht / Wt: 165.1(cm)/118.3 Pt. Loc: Adult Floor BSA: 2.22 Study Date: 08/25/2019 Pt. Type: Inpatient Tape: Referring: Dianne Pace Referring: [facility] (Diag Imaging) Referring: [facility](Med Rec) Referring: [facility](Med/Surg) Reading: Remy Ball ([id number]) Spa Therapist: ABHI Spa Therapist: ABHI Diagnosis: *Heart failure, unspecified (I50.9) Rhythm: [...] MV E-wave Vmax 0.81 m/sec MV deceleration yosk075.33 msec MV A-wave Vmax 1.06 m/sec MV [...] Hypokinetic Mid-Posterolateral Hypokinetic Mid-Inferior Hypokinetic Mid-Inferoseptal Hypokinetic [place]-Septal Hypokinetic [place]-Anterior Hypokinetic [place]-Lateral Hypokinetic [place]-Inferior Hypokinetic [place]-Tip Hypokinetic This report has been electronically signed by: Remy Ball MD 08/25/2019 14:23:59 Images reviewed and interpretation verified [facility] Dianne Pace APRN ECHO ORDERABLES documented in this encounter Visit Diagnoses Diagnosis Heart failure, unspecified HF chronicity, unspecified heart failure type documented in this encounter Care Teams Spectroscopist Relationship Specialty Start Date End Date Reina Alcala APRN [address] [place] [address] [place] [address] PCP - General 04/18/14 01/17/23 documented as of this encounter
--- OUTSIDE RECORDS SUMMARY | 2024-02-22 14:59 | XMS_ITS | Encounter Summary ---
Author Organization [facility] [place] [address] Care Team Providers Care Car Inspector Name Role Phone Reinier Arceo Primary Care Provider [phone] Encounter Details Date Type Department Care Team (Late Contact Info) Description 01/18/2023 Orders [place] [phone] Unknown None Social History Tobacco Use Types Packs/Day Years Used Date Smoking Tobacco: Never Alcohol Use Standard Drinks/Week Comments Never 0 (1 standard drink = 0.6 oz pur e alcohol) [facility] Inpatient Questions Answer Date Recorded [...] 2:20 PM EDT [place] [address] [facility] [address] 04/11/2024 11:20 AM EDT Office Visit Dermatology at [facility] [address] [place] [address] Terri Pimentel MD [facility] [place] [address] documented as of this encounter Procedures Procedure [...] 05:58 PMBP: 145/90 mmHg ? Patient Location: [facility] ? HR: 69 : 1955 Age: 67 yrs Gender: Male Ordering Physician: Tanya Delcid Referring Physician: Tanya Delcid Performed By: Heron Santacruz Reason For Study: Systolic heart failure History: heart failure Interpreting Fellow: Heron Santacruz. Exam Location: [facility]. Interpretation Summary -Limited echocardiogram performed by [...] prior echocardiogram for comparison. Procedure Limited - 27507. Satisfactory quality. There is normal sinus rhythm. [...] Date: 305:58 PMBP: 145/90 mmHg Patient Location: [facility] HR: 69 : 1955 Age: 67 yrs Gender: Male Ordering Physician: Tanya Delcid Referring Physician: Tanya Delcid Performed By: Heron Santacruz Reason For Study: Systolic heart failure History: heart failure Interpreting Fellow: Heron Santacruz. Exam Location: [facility]. Interpretation Summary -Limited echocardiogram performed by [...] regurgitation jet. The estimated right atrial pressure [id number]. -Normal biatrial size. -Doppler assessment of the aortic valve consistent with mild aorticstenosis although visually the valve does not appear stenotic. Recommend formal echocardiogram for proper assessment. -There is no prior echocardiogram for comparison. Procedure Limited - 12598. Satisfactory quality. There is normal sinus rhythm. [...] on filedocumented in this encounter Care Teams Car Inspector Relationship Specialty Start Date End Date Reinier Arceo PA [address] [facility] [address] [place] [address] PCP - General Internal Medicine 01/18/23 documented as of this encounter
--- OUTSIDE RECORDS SUMMARY | 2024-02-22 14:59 | XMS_ITS | Encounter Summary ---
Author Organization [facility] [place] [address] Care Team Providers Care Linux Devops Engineer Name Role Phone Reina Alcala APRN Primary Care Provider [phone] Reason for Visit * Reason Comments Follow-up Encounter Details Date Type Department Care Team (Late st Contact Info) Description 07/03/2014 1:00 PM EST Office Visit Dermatology at [place] [address] [facility] [place] [address] Sixto Doty MD [address] [facility], [place] [address] Neurodermatitis Discharge Disposition: Home Social History Tobacco [...] to financial issues of funding his mother's long term, he has credit card debt that is [...] The patient is working with his social science professor to try to find gainful employment; this is an ongoing process he states. COPY: Reina Alcala A.P.R.N. documented in this encounter Plan of Treatment Upcoming Encounters Date Type Department Care Team (Late st Contact Info) Description 04/06/2024 2:20 PM EDT [place] [address] Austin Simon MD [facility] [place] [address] 04/11/2024 11:20 AM EDT Office Visit Dermatology at [address] [phone] Terri Pimentel MD [facility] [address] [place] [address] documented as of this encounter Visit Diagnoses Diagnosis Neurodermatitis Lichenification and lichen simplex chronicus documented in this encounter Care Teams Linux Devops Engineer Relationship Specialty Start Date End Date Reina Alcala APRN [address] [place] [address] [place] [address] PCP - General 04/18/14 01/17/23 documented as of this encounter
--- OUTSIDE RECORDS SUMMARY | 2024-02-22 14:59 | XMS_ITS | Encounter Summary ---
Author Organization [facility] [place] [address] Care Team Providers Care Zigzag Appliquer Name Role Phone Reina Alcala APRN Primary Care Provider [phone] Reason for Visit * Reason Comments Follow-up Encounter Details Date Type Department Care Team ([facility] st Contact Info) Description 01/15/2015 1:45 PM EDT Office Visit Dermatology at [address] [place] [address] Sixto Doty MD [address] [facility] [address] [place] [address] Self-excoriation disorder Discharge Disposition: Home Social History [...] from the original note were not included. [facility] Dermatitis: After Your Visit Your Care [...] help for plant rashes. ?? Try an crkh-ryf-awaroqo antihistamine such as diphenhydramine (Benadryl) or chlorpheniramine [...] more? Visit our health information library at [email or web address] You can also view health information on [email or web address], your personal patient account. Log in or sign up today. Enter F270 in the search box to learn more about Dermatitis: After Your Visit. ?? [id number] Plasma[employer], [employer]. Care instructions adapted under license by [facility]. This care instruction is for use with your licensed healthcare professional. If you have questions about a medical condition or this instruction, always ask your healthcare professional. Plasma[employer], [employer] disclaims any warranty or liability for your use of this information. Content Version: 10.4.856968; Current as of: September 06, 2013 documented [...] will continue to work with his case assembler on finding a solution to his above [...] 2:20 PM EDT Procedure [place] [address] Austin Simon MD [facility] [place] [address] 04/11/2024 11:20 AM EDT Office Visit Dermatology at [address] [place] [address] Terri Pimentel MD [facility] [address] [place] [address] documented as of this encounter Visit Diagnoses Diagnosis Self-excoriation disorder documented in this encounter Care Teams Zigzag Appliquer Relationship Specialty Start Date End Date Reina Alcala APRN [address] [place] [address] [place] [address] PCP - General 04/18/14 01/17/23 documented as of this encounter
--- OUTSIDE RECORDS SUMMARY | 2024-02-22 14:59 | XMS_ITS | Encounter Summary ---
Author Organization [facility] [place] [address] Care Team Providers Care Centrifuge Separator Operator Name Role Phone Reina Alcala APRN Primary Care Provider [phone] Reason for Visit * Reason Comments Skin Check Encounter Details Date Type Department Care Team (Late st Contact Info) Description 12/01/2013 1:00 PM EDT Office Visit Dermatology at [address] [place] [address] Sixto Doty MD [address] [facility], [place] [address] Neurodermatitis (Primary Dx) Social History Tobacco Use [...] him that if he can break the bcxs-nyxhbza-aqqs cycle, these will heal. f. Return to clinic here in one month for repeat check. COPY: Myrtle KimballP. documented in this encounter Plan of Treatment Upcoming Encounters Date Type Department Care Team (Late st Contact Info) Description 04/06/2024 2:20 PM EDT Procedure [place] [address] Austin Simon MD [facility] [place] [address] 04/11/2024 11:20 AM EDT Office Visit Dermatology at [facility] [address] [place] [address] Terri Pimentel MD [facility] [address] [place] [address] documented as of this encounter Visit Diagnoses Diagnosis Neurodermatitis- Primary Lichenification and lichen simplex chronicus documented in this encounter Care Teams Centrifuge Separator Operator Relationship Specialty Start Date End Date Reina Alcala APRN [address] [place] [address] [place] [address] PCP - General 10/24/13 12/03/13 documented as of this encounter
--- OUTSIDE RECORDS SUMMARY | 2024-02-22 14:59 | XMS_ITS | Encounter Summary ---
Author Organization [facility] Address [address] [place] [address] Care Team Providers Care Grounds Worker Name Role Phone Casimiro Perez MD Primary Care Provider Nahed montes de oca Encounter Details Date Type Department Care Team (Late st Contact Info) Description 02/10/2023 Lab Requisition [facility] Pathology & Laboratory Medicine - [facility] [address] [place] [address] Outr Resulting Lab, Provider Social History Tobacco [...] 873 See Note mg/dL 02/10/2023 22:35 EDT [facility] Comment: NOTE: Reference range has not been established for urea nitrogen concentration in random urine specimens. Urine URINE / Unknown 02/10/2023 1 1:53 EDT 02/10/2023 21:55 EDT Provider Outr Resulting Lab URINALYSIS O RDERABLES [facility] [address] [place] [address] documented in this encounter Visit Diagnoses Not on filedocumented in this encounter Care Teams Grounds Worker Relationship Specialty Start Date End Date Casimiro Perez MD PCP - General 05/03/15 documented as of this encounter
--- OUTSIDE RECORDS SUMMARY | 2024-02-22 14:59 | XMS_ITS | Encounter Summary ---
Author Organization [facility] [address] Care Team Providers Care Derrickman Helper Name Role Phone Von Miles MD Primary Care Provider [phone] Reason for Visit * Reason Comments Follow-up Encounter Details Date Type Department Care Team (Late st Contact Info) Description 01/02/2014 1:45 PM EDT Office Visit Dermatology at [address] [id number] Sixto Doty MD [address] [facility] [place] [address] Neurodermatitis (Primary Dx) Social History [...] for his mother who is in a snf, the [address] [place] in [place], and there is a monthly bill of $2000 due, which her estate is barely able to cover, and he is getting [place] Medicaid payments to help cover this. However, the checks are usually late, and he feels pressured by staff at [facility] to make the payments when he [...] 2:20 PM EDT Procedure [place] [address] Austin Simon MD [facility] [place] [address] 04/11/2024 11:20 AM EDT Office Visit Dermatology at [facility] [address] [place] [address] Terri Pimentel MD [facility] [address] [address] documented as of this encounter Visit Diagnoses Diagnosis Neurodermatitis- Primary Lichenification and lichen simplex chronicus documented in this encounter Care Teams Derrickman Helper Relationship Specialty Start Date End Date Von Miles MD [address] [place] [address] [place] [address] PCP - General 12/04/13 04/17/14 documented as of this encounter
[2024-02-22 16:38] LABS: Anion Gap 14.6 mmol/L (3-11); BUN 72 mg/dL (7-18); CO2 17.4 mmol/L (21.0-32.0); CREATININE 2.8 mg/dL (0.70-1.30); Calcium 8.2 mg/dL (8.5-10.1); Chloride 104 mmol/L (98-107); Estimated GFR 23.68 (mL/min/1.73m2); Glucose 245 mg/dL (74-106); Potassium 5.4 mmol/L (3.5-5.1); Sodium 136 mmol/L (136-145)
== END 2024-02-22 14:52 | disposition home or self-care (01) ==
LOC: NCHCN 14:51
PROVIDERS: PCP Physician Assistant; Visit Provider Physician Assistant
DX: N28.9 Disorder of kidney and ureter, unspecified (principal)
CPT/HCPCS: 80048